=== PATIENT | male | born 1950 | race Caucasian/White ===

== ENCOUNTER 2018-01-08 17:49 | Inpatient (IN) | payer MEDICARE, MEDICAID ==
[2018-01-08 17:50] VITALS: BMI 32.8
--- NOTE | 2018-01-08 20:33 | C.PDOC ---
History Of Present Illness 67 year old male presents to the ED referred by Dr Wills for evaluation of shortness of breath, chest pain, and headache gradually worsening x6 days. Patient complains of bilateral lower extremity pain and swelling for the past two weeks and has had difficulty ambulating as a result which he states acutely worsened today. He denies cough or fever. Patient has a history of CABG 8 years ago. Otherwise, no other acute complaints. Chief Complaint (Nursing): Shortness Of Breath History Per: Patient, Family Onset/Duration Of Symptoms: Days Current Symptoms Are (Timing): Worse Associated Symptoms: Chest Pain, Ankle/Leg Swelling Past Medical History Reviewed: Historical Data, Nursing Documentation, Vital Signs Vital Signs: Last Vital Signs Temp 98.0 F 01/08/18 19:19 Pulse 67 01/09/18 02:00 Resp 20 01/09/18 02:00 BP 124/63 01/09/18 02:00 Pulse Ox 95 01/09/18 02:00 - Medical History PMH: HTN, Hypercholesterolemia Denies: Chronic Kidney Disease Surgical History: CABG (8 yrs ago) - [facility] Procedures CONTRAST AORTOGRAM (01/16/14) CONTRAST ARTERIOGRAM-LEG (01/16/14) Family History: States: Unknown Family Hx - Social History Hx Alcohol Use: Yes Hx Substance Use: No Review Of Systems Except As Marked, All Systems Reviewed And Found Negative. Constitutional: Negative for: Fever, Chills ENT: Negative for: Ear Pain, Throat Pain Cardiovascular: Positive for: Chest Pain Respiratory: Positive for: Shortness of Breath. Negative for: Cough Gastrointestinal: Negative for: Nausea, Vomiting, Abdominal Pain, Diarrhea Musculoskeletal: Positive for: Back Pain, Leg Pain (and swelling) Skin: Negative for: Rash Neurological: Positive for: Headache. Negative for: Weakness, Numbness Physical Exam - Physical Exam Appears: Well, No Acute Distress Skin: Normal Color, Warm, Dry Head: Atraumatic, Normacephalic Eye(s): bilateral: Normal Inspection, PERRL, EOMI Nose: Normal Oral Mucosa: Moist Tongue: Normal Appearing Lips: Normal Appearing Throat: Normal Neck: Normal, Normal ROM, Supple Chest: Other (Median sternotomy scar ) Cardiovascular: Rhythm Regular Respiratory: Decreased Breath Sounds (bilaterally), No Rales, No Rhonchi, No Wheezing Gastrointestinal/Abdominal: Soft, No Tenderness Back: Normal Inspection Extremity: Normal ROM, Capillary Refill (delayed ), Other (diminished pulses bilateral lower extremities ) Neurological/Psych: Oriented x3, Normal Speech ED Course And Treatment - Laboratory Results Result Diagrams: 01/08/18 20:40 01/08/18 20:40 O2 Sat by Pulse Oximetry: 96 - Radiology CXR: Interpreted by Me, Viewed By Me CXR Interpretation: Yes: Cardiomegaly, Other (increased cardiovascular pulmonary congestions consistent with CHF) Disposition - Disposition Disposition: HOSPITALIZED Disposition Time: 03:20 Condition: FAIR - Clinical Impression Clinical Impression: Congestive heart failure - Scribe Statement The provider has reviewed the documentation as recorded by the Scribe The provider has reviewed the documentation as recorded by the Scribe (Shane Schwartz) Provider Attestation: All medical record entries made by the Scribe were at my direction and personally dictated by me. I have reviewed the chart and agree that the record accurately reflects my personal performance of the history, physical exam, medical decision making, and the department course for this patient. I have also personally directed, reviewed, and agree with the discharge instructions and disposition.
[2018-01-08 20:54] LABS: BASO % 0.3 % (0.0-2.0); EOS # 0.1 K/uL (0.0-0.7); EOS % 1.9 % (0.0-4.0); MEAN CELL VOLUME 92.3 fL (80.0-94.0); MEAN CORPUSCULAR HEMOGLOBIN 30.8 pg (27.0-31.0); MEAN CORPUSCULAR HGB CONC 33.4 g/dL (33.0-37.0); MEAN PLATELET VOLUME 11.9 fL (7.2-11.7); MONO # 0.6 K/uL (0.0-0.8); MONO % 9.9 % (0.0-10.0); NEUT # 3.7 K/uL (1.8-7.0); NEUT % 56.9 % (50.0-75.0); NRBC % 0.1 % (0.0-2.0); RBC 4.54 Mil/uL (4.40-5.90); RED CELL DISTRIBUTION WIDTH 13.3 % (11.5-14.5); WHITE BLOOD COUNT 6.4 K/uL (4.8-10.8)
[2018-01-08 21:02] LABS: PROTHROMBIN TIME 11.3 SECONDS (9.7-12.2)
[2018-01-08 21:08] LABS: ALB/GLOB RATIO 1.3 (1.0-2.1); ALBUMIN 3.9 g/dL (3.5-5.0); ALT/SGPT 24 U/L (21-72); AST/SGOT 23 U/L (17-59); BLOOD UREA NITROGEN 31 mg/dL (9-20); CALCIUM 9.1 mg/dl (8.6-10.4); GFR AFRICAN-AMERICAN > 60; GFR NON-AFRICAN AMERICAN 55
[2018-01-08 21:30] LABS: B-TYPE NATRIURETIC PEPTIDE 1790 pg/mL (0-900)
[2018-01-08] MEDS ORDERED: Nitroglycerin 2% Ointment Foilpak UD TOP STA (22:38)
[2018-01-08] MEDS ORDERED: Nitroglycerin 2% Ointment Foilpak UD TOP ONE (22:53)
--- NOTE | 2018-01-09 03:53 | CP.PCM.CON ---
History of Present Illness - History of Present Illness History of Present Illness: Vascular Surgery- Dr. Giordano 67M pmhx significant for IDDM, HTN, CABG, presents to [facility] ED w/ shortness of breath, chest pain, and headaches. Surgery was consulted for bilateral LE pain that is worse with walking, better with rest. Denies: fevers, chills, nausea, vomiting, diarrhea, changes in urinary/bowel habits, tingling in extremities, acute changes in vision PMH: IDDM, HTN, CAD PSH: inguinal hernia, c-scope, LE angiogram/Angioplasty ALL: NKDA Socialhx: Denies tobacco, ETOH, recreational drug use Review of Systems - Review of Systems All systems: reviewed and no additional remarkable complaints except - Constitutional Constitutional: As Per HPI Past Patient History - Past Medical History & Family History Past Medical History?: Yes - Past Social History Smoking Status: Never Smoked - CARDIAC Hx Hypercholesterolemia: Yes Hx Hypertension: Yes - PULMONARY Hx Respiratory Disorders: Yes Other/Comment: s o b on exertion - NEUROLOGICAL Hx Neurological Disorder: No - HEENT Hx HEENT Problems: Yes Hx Cataracts: Yes (bilateral cat ext with iol) - RENAL Hx Chronic Kidney Disease: No - ENDOCRINE/METABOLIC Hx Endocrine Disorders: Yes Hx Diabetes Mellitus Type 2: Yes - HEMATOLOGICAL/ONCOLOGICAL Hx Blood Disorders: No - INTEGUMENTARY Hx Dermatological Problems: Yes Other/Comment: small ulcers both great toes - MUSCULOSKELETAL/RHEUMATOLOGICAL Hx Musculoskeletal Disorders: No - GASTROINTESTINAL Hx Gastrointestinal Disorders: No - GENITOURINARY/GYNECOLOGICAL Hx Genitourinary Disorders: No - PSYCHIATRIC Hx Substance Use: No - SURGICAL HISTORY Hx Coronary Artery Bypass Graft: Yes (8 yrs ago) - ANESTHESIA Hx Anesthesia: Yes Hx Anesthesia Reactions: No Hx Malignant Hyperthermia: No Meds Allergies/Adverse Reactions: Allergies Allergy/AdvReac Type Severity Reaction Status Date / Time No Known Allergies Allergy Verified 01/08/18 19:23 Physical Exam - Constitutional Appears: Non-toxic, No Acute Distress Additional comments: Obese - ENT Exam ENT Exam: Mucous Membranes Moist - Respiratory Exam Respiratory Exam: NORMAL BREATHING PATTERN. absent: Accessory Muscle Use, Respiratory Distress - Cardiovascular Exam Cardiovascular Exam: +S1, +S2. absent: Bradycardia, Tachycardia - GI/Abdominal Exam GI & Abdominal Exam: Distended, Soft. absent: Firm, Guarding, Hernia, Tenderness Additional comments: states abd is normal - Extremities Exam Additional comments: B/L +2 popliteal pulses biphasic dopplerable b/l DP and TP Skin tags on L.foot no observable ulcers - Neurological Exam Neurological exam: Alert, Oriented x3 Results - Vital Signs Recent Vital Signs: Last Vital Signs Temp 98.0 F 01/08/18 19:19 Pulse 67 01/09/18 02:00 Resp 20 01/09/18 02:00 BP 124/63 01/09/18 02:00 Pulse Ox 96 01/09/18 03:21 - Labs Result Diagrams: 01/08/18 20:40 01/08/18 20:40 Labs: Laboratory Results - last 24 hr 01/08/18 01/08/18 01/08/18 20:40 20:40 20:40 WBC 6.4 RBC 4.54 Hgb 14.0 Hct 41.9 MCV 92.3 MCH 30.8 MCHC 33.4 RDW 13.3 Plt Count 188 MPV 11.9 H Neut % (Auto) 56.9 Lymph % (Auto) 31.0 [place] % (Auto) 9.9 Eos % (Auto) 1.9 Baso % (Auto) 0.3 Neut # (Auto) 3.7 Lymph # (Auto) 2.0 [place] # (Auto) 0.6 Eos # (Auto) 0.1 Baso # (Auto) 0.0 PT 11.3 INR 1.0 APTT 34 D-Dimer, Quantitative 225 Sodium 142 Potassium 4.0 Chloride 104 Carbon Dioxide 25 Anion Gap 16 BUN 31 H Creatinine 1.3 Est GFR ( Amer) > 60 Est GFR (Non-Af Amer) 55 Random Glucose 73 L Calcium 9.1 Total Bilirubin 0.8 AST 23 ALT 24 Alkaline Phosphatase 74 CK-MB (Mass) 1.20 Troponin I 0.0300 NT-Pro-B Natriuret Pep 1790 H Total Protein 6.9 Albumin 3.9 Globulin 3.0 Albumin/Globulin Ratio 1.3 Assessment & Plan - Assessment and Plan (Free Text) Assessment: 67M admitted for SOB and Chest pain; w/ lower extremity claudication Plan: - JOSE E/PVR - monitor pulses - medical management per primary team - further recs per Dr. Giordano surgical attending Jignesh Zarco PGY1
[2018-01-09 08:03] LABS: CK-MB 1.12 ng/mL (0.0-3.38); TROPONIN I 0.034 ng/mL (0.00-0.120)
--- NOTE | 2018-01-09 08:34 | RAD ---
Chest x-ray single frontal view History: Sepsis. Comparison: None available. Findings: Mild venous congestion. Right hilar prominence. Left basilar airspace consolidative changes. Small bilateral pleural effusions. Status post median sternotomy and CABG. Cardiomegaly. Surgical clips project over the right axilla and over the right midlung zone. Degenerative changes in the spine and shoulders. Impression: Mild venous congestion. Right hilar prominence. Left basilar airspace consolidative changes. Small bilateral pleural effusions. Status post median sternotomy and CABG. Cardiomegaly.
[2018-01-09] MEDS ORDERED: (Novolin R) Insulin Human Regular 100 units/ml vial ONE (09:30)
[2018-01-09] MEDS: (Novolin R) Insulin Human Regular 100 units/ml vial SC SCH ×4 (09:35→23:14)
--- NOTE | 2018-01-09 12:12 | CARD ---
APPROVED REPORT EKG Measurement Heart [id number] CO 156P47 [id number] <Conclusion> Normal sinus rhythm Septal infarct, age undetermined Abnormal ECG
[2018-01-09 13:15] LABS: CK-MB 1.03 ng/mL (0.0-3.38); TROPONIN I 0.023 ng/mL (0.00-0.120)
[2018-01-09] MEDS ORDERED: Albuterol-Ipratrop 3 mg / 0.5 (3 ml) UD INH PRN (14:00)
--- NOTE | 2018-01-09 16:29 | VASCLAB ---
STUDY DESCRIPTION: HISTORY: Intermittent Claudication PRIORS: None. TECHNIQUE: Pulse volume recording waveforms and segmental pressures of bilateral lower extremities at multiple levels were obtained. Ankle Brachial Indices (ABIs) were calculated. Report prepared by ROCK Cervantes, RVT RIGHT LOWER EXTREMITY: * Brachial artery: Pressure - 157 mmHg. * High thigh: Pressure - 220 mmHg: Ratio - NC: PVR waveform - Pulsatile * Low thigh: Pressure - 220 mmHg: Ratio - NC PVR waveform: Pulsatile * Calf: Pressure - 133 mmHg: Ratio - 0.85 PVR waveform: Pulsatile * Posterior tibial Artery: Pressure - 95 mmHg: Ratio - 0.61 PVR waveform: Reduced * Dorsalis pedis Artery: Pressure - 97 mmHg: Ratio - 0.62 PVR waveform: Reduced * Great toe: Pressure - mmHg: Ratio - PVR waveform: Ankle brachial index (JOSE E): 0.62 LEFT LOWER EXTREMITY: * Brachial artery: Pressure - 149 mmHg. * High thigh: Pressure - 220 mmHg: Ratio - NC: PVR waveform - Pulsatile * Low thigh: Pressure - 213 mmHg: Ratio - 1.36 PVR waveform: Pulsatile * Calf: Pressure - 138 mmHg: Ratio - 0.88 PVR waveform: Pulsatile * Posterior tibial Artery: Pressure - 102 mmHg: Ratio - 0.65 PVR waveform: Reduced * Dorsalis pedis Artery: Pressure - 105 mmHg: Ratio - 0.67 PVR waveform: Reduced * Great toe: Pressure - mmHg: Ratio - PVR waveform: Ankle brachial index (JOSE E): 0.67 OTHER FINDINGS: Right: Left: IMPRESSION: Right: This exam reveals moderately decreased perfusion of the right lower extremities, noted at the popliteal, tibial and distal small artery levels. Left: This exam reveals moderately decreased perfusion of the left lower extremities, noted at the popliteal, tibial and distal small artery levels.
[2018-01-09] MEDS ORDERED: Iodixanol 320 mg/ml 150 ml Bottle IV ONE (19:21)
--- NOTE | 2018-01-09 21:59 | CARD ---
APPROVED REPORT EXAM: Two-dimensional and M-mode echocardiogram with Doppler and color Doppler. Other Information Quality : GoodRhythm : INDICATION Dyspnea Congestive Heart Failure RISK FACTORS Hypertension Hyperlipidemia 2D DIMENSIONS IVSd1.4 (0.7-1.1cm)LVDd4.6 (3.9-5.9cm) PWd1.4 (0.7-1.1cm)LVDs3.1 (2.5-4.0cm) FS (%) 32.6 %LVEF (%)61.0 (>50%) M-Mode DIMENSIONS Left Atrium (MM)4.81 (2.5-4.0cm)Aortic Root3.95 (2.2-3.7cm) Aortic Cusp Exc.2.31 (1.5-2.0cm) Mitral Valve MV E Sjrgowom49.8cm/sMV A Vjncyolt90.1cm/sE/A ratio0.8 TDI E/Lateral E'0.0E/Medial E'0.0 Tricuspid Valve TR Peak Hylsxiaz323zt/sTR Peak Gr.11lvJtBZLX82vcUo LEFT VENTRICLE The left ventricle is normal size. There is mild concentric left ventricular hypertrophy. Left ventricle systolic function is normal. The Ejection Fraction is 65-70%. There is normal LV segmental wall motion. Transmitral Doppler flow pattern is Grade I-abnormal relaxation pattern. There is no ventricular septal defect visualized. RIGHT VENTRICLE The right ventricle is normal size. The right ventricular systolic function is normal. ATRIA The left atrium is mildly dilated. The right atrium size is normal. AORTIC VALVE The aortic valve is mildly sclerotic. The aortic valve is tri-cuspid. No aortic regurgitation is present. There is no aortic valvular stenosis. MITRAL VALVE Mitral annular calcification is mild. There is no evidence of mitral valve prolapse. There is no mitral valve regurgitation noted. TRICUSPID VALVE The tricuspid valve is normal in structure. There is mild tricuspid regurgitation. Right ventricular systolic pressure is estimated at 40-50 mmHg. There is moderate pulmonary hypertension. PULMONIC VALVE The pulmonary valve is normal in structure. There is no pulmonic valvular regurgitation. GREAT VESSELS The aortic root is normal in size. The ascending aorta is normal in size. The IVC is normal in size and collapses >50% with inspiration. PERICARDIAL EFFUSION There is no pericardial effusion. <Conclusion> There is mild concentric left ventricular hypertrophy. Left ventricle systolic function is normal. The Ejection Fraction is 65-70%. Transmitral Doppler flow pattern is Grade I-abnormal relaxation pattern. There is moderate pulmonary hypertension.
--- NOTE | 2018-01-09 23:13 | CP.PCM.HP ---
History of Present Illness - History of Present Illness History of Present Illness: CC: shortness of breath HPI: 67M pmhx significant for IDDM, HTN, CAD s/p CABG 15 years ago, who is complaint with diet, medications and follow up, presents to [facility] ED w/ shortness of breath, chest pain,massive puffiness and swelling in LE with increase weight and headaches. c/o bilateral LE pain that is worse with walking , better with rest. Denies: fevers, chills, nausea, vomiting, diarrhea, changes in urinary/bowel habits, tingling in extremities, acute changes in vision PMH: IDDM, HTN, CAD PSH: inguinal hernia, c-scope, LE angiogram/Angioplasty ALL: NKDA Socialhx: Denies tobacco, ETOH, recreational drug use Present on Admission - Present on Admission Any Indicators Present on Admission: Yes Review of Systems - Review of Systems Systems not reviewed;Unavailable: Acuity of Condition - Constitutional Constitutional: Fatigue, Lethargy, Malaise - EENT Nose/Mouth/Throat: Nasal Congestion - Cardiovascular Cardiovascular: Chest Pain, Dyspnea, Leg Edema, Palpitations - Respiratory Respiratory: Cough - Musculoskeletal Musculoskeletal: Limited Range of Motion, Myalgias, Numbness, Radiating Pain into Limb - Integumentary Integumentary: Dry Skin - Neurological Neurological: absent: As Per HPI, Abnormal Gait, Abnormal Hearing, Abnormal Movements, Abnormal Speech, Behavioral Changes, Burning Sensations, Confusion, Convulsions, Disequilibrium, Dizziness, Numbness, Focal Weakness, Frequent Falls , Headaches, Lack of Coordination, Loss of Vision, Memory Loss, Paresthesias, Radicular Pain, Restless Legs, Sensory Deficit, Syncope, Tingling, Tremor, Vertigo, Weakness, Other Visual Disturbances, Other - Psychiatric Psychiatric: absent: As Per HPI, Abnormal Sleep Pattern, Anhedonia, Anxiety, Auditory Hallucinations, Behavioral Changes, Change in Appetite, Change in Libido, Confusion, Depression, Difficulty Concentrating, Hallucinations, Homicidal Ideation, Hopelessness, Irritability, Memory Loss, Mood Swings, Panic Attacks, Paranoia, Suicidal Ideation, Visual Hallucinations, Tactile Hallucinations, Other - Endocrine Endocrine: Polydipsia, Polyuria Past Patient History - Past Medical History & Family History Past Medical History?: Yes - Past Social History Smoking Status: Never Smoked - CARDIAC Hx Cardiac Disorders: Yes Hx Hypercholesterolemia: Yes Hx Hypertension: Yes - PULMONARY Hx Respiratory Disorders: Yes Other/Comment: s o b on exertion - NEUROLOGICAL Hx Neurological Disorder: No - HEENT Hx HEENT Problems: Yes Hx Cataracts: Yes (bilateral cat ext with iol) - RENAL Hx Chronic Kidney Disease: No - ENDOCRINE/METABOLIC Hx Endocrine Disorders: Yes Hx Diabetes Mellitus Type 2: Yes - HEMATOLOGICAL/ONCOLOGICAL Hx Blood Disorders: No - INTEGUMENTARY Hx Dermatological Problems: Yes Other/Comment: small ulcers both great toes - MUSCULOSKELETAL/RHEUMATOLOGICAL Hx Musculoskeletal Disorders: No Hx Falls: Yes - GASTROINTESTINAL Hx Gastrointestinal Disorders: No - GENITOURINARY/GYNECOLOGICAL Hx Genitourinary Disorders: No - PSYCHIATRIC Hx Substance Use: No - SURGICAL HISTORY Hx Coronary Artery Bypass Graft: Yes (8 yrs ago) - ANESTHESIA Hx Anesthesia: Yes Hx Anesthesia Reactions: No Hx Malignant Hyperthermia: No Meds Allergies/Adverse Reactions: Allergies Allergy/AdvReac Type Severity Reaction Status Date / Time No Known Allergies Allergy Verified 01/08/18 19:23 Physical Exam - Constitutional Additional comments: an elderly male in moderate resp distress - Neck Exam Additional comments: Positive JVD - Respiratory Exam Respiratory Exam: Decreased Breath Sounds, Rales - Cardiovascular Exam Cardiovascular Exam: +S1, +S2, +S4 - GI/Abdominal Exam GI & Abdominal Exam: Distended, Normal Bowel Sounds, Soft. absent: Tenderness Additional comments: edema of lateral abdominal wall - Extremities Exam Extremities exam: Positive for: pedal edema Additional comments: +4 pitting edema - Back Exam Back exam: NORMAL INSPECTION - Neurological Exam Neurological exam: Alert, CN II-XII Intact, Normal Gait, Oriented x3, Reflexes Normal - Psychiatric Exam Psychiatric exam: Normal Affect, Normal Mood Results - Vital Signs Recent Vital Signs: Last Vital Signs Temp 98.1 F 01/09/18 16:03 Pulse 73 01/09/18 16:03 Resp 18 01/09/18 16:03 BP 146/66 01/09/18 17:36 Pulse Ox 95 01/09/18 16:03 - Labs Result Diagrams: 01/08/18 20:40 01/08/18 20:40 Labs: Laboratory Results - last 24 hr 01/09/18 01/09/18 01/09/18 07:09 07:36 11:42 POC Glucose (mg/dL) 188 H 313 H Total Creatine Kinase 93 CK-MB (Mass) 1.12 Troponin I 0.0340 01/09/18 01/09/18 01/09/18 12:42 16:49 23:07 POC Glucose (mg/dL) 256 H 221 H Total Creatine Kinase 106 CK-MB (Mass) 1.03 Troponin I 0.0230 Assessment & Plan (1) Diabetes Status: Acute (2) Congestive heart failure Assessment and Plan: Cardiology eval new onset CHF most likely diastolic Lasix input output Medical management Status: Acute (3) COPD (chronic obstructive pulmonary disease) Assessment and Plan: medical managment oxygen PRN Status: Acute (4) Insomnia Status: Acute
[2018-01-10 06:39] LABS: HEMOGLOBIN 13.3 g/dL (12.0-18.0); MEAN CELL VOLUME 92.6 fL (80.0-94.0); MEAN CORPUSCULAR HEMOGLOBIN 31.1 pg (27.0-31.0); MEAN CORPUSCULAR HGB CONC 33.5 g/dL (33.0-37.0); MEAN PLATELET VOLUME 11.4 fL (7.2-11.7); RBC 4.29 Mil/uL (4.40-5.90); RED CELL DISTRIBUTION WIDTH 12.9 % (11.5-14.5); WHITE BLOOD COUNT 4.2 K/uL (4.8-10.8)
[2018-01-10 07:55] LABS: BLOOD UREA NITROGEN 31 mg/dL (9-20); CALCIUM 8.5 mg/dl (8.6-10.4); GFR AFRICAN-AMERICAN > 60; GFR NON-AFRICAN AMERICAN 51
[2018-01-10] MEDS: (Novolin R) Insulin Human Regular 100 units/ml vial SC SCH ×5 (08:49→21:50)
--- NOTE | 2018-01-10 09:27 | CT ---
PROCEDURE: CT Angiography Abdomen, Pelvis and Lower Extremity with Contrast HISTORY: Claudication COMPARISON: None. TECHNIQUE: Technique: CT angiography of the abdomen, pelvis and bilateral lower extremities performed in the arterial phase of enhancement. Coronal and sagittal reformats, and well as rotating MIP images of the vessels generated at the workstation. Intravenous contrast dose: 150 milliliters Visipaque 320 Radiation dose: Total exam DLP = 3173.39 MGy-cm. This CT exam was performed using one or more of the following dose reduction techniques: Automated exposure control, adjustment of the mA and/or kV according to patient size, and/or use of iterative reconstruction technique. FINDINGS: CT ANGIOGRAPHY: ABDOMINAL AORTA:: Severe calcific plaque in the abdominal aorta without aneurysm or stenosis. MAJOR AORTIC BRANCHES: Celiac Lyons: Unremarkable. Superior mesenteric artery: Moderate calcific plaque at the origin of the SMA with mild stenosis. Inferior mesenteric artery: Unremarkable. Renal arteries: Calcific plaque at the origin of both right and left renal arteries with possible moderate stenosis. PELVIC ARTERIES: Right Common Iliac: Mild calcific plaque with no stenosis. Right External Iliac: Unremarkable. Right Internal Iliac: Unremarkable. Left Common Iliac: Unremarkable. Left External Iliac: Unremarkable. Left Internal Iliac: Unremarkable. RIGHT LOWER EXTREMITY ARTERIES: Right Common Femoral: Unremarkable. Right Superficial Femoral: There is mild plaque throughout the SFA with no significant stenosis. Right Profunda Femoris: Unremarkable. Right Popliteal:Unremarkable. Right Anterior Tibial: Diffusely calcified appears patent. Multiple areas of mild to severe stenosis throughout the anterior tibial artery. Right Tibioperoneal Trunk: Occlusion of the tibioperoneal artery. Right Posterior Tibial: Proximally occluded then reconstitutes in the mid segment. Right Peroneal: Fills via collateral in the proximal segment and remains patent. Right dorsalis pedis : Unremarkable. LEFT LOWER EXTREMITY ARTERIES: Left Common Femoral: Unremarkable. Left Superficial Femoral: Moderate plaque in the SFA with moderate stenosis in distal segment. Left Profunda Femoris: Unremarkable. Left Popliteal: Mild calcific plaque in the popliteal artery with mild stenosis in the below knee popliteal artery. Stenosis. Left Anterior Tibial: Moderate to severe calcific plaque in the mid segment with distal occlusion. Left Tibioperoneal Trunk: Severely stenotic or occluded. Left Posterior Tibial: Occluded. Left Peroneal: Proximal occlusion and reconstitutes in the mid segment remains patent. Left Dorsalis pedis: Unremarkable. NON-ANGIOGRAPHIC ASPECT OF THE EXAM: LOWER THORAX: Very small amount of right pleural effusion. LIVER: Hypoattenuated liver. Liver is otherwise unremarkable. GALLBLADDER AND BILE DUCTS: Unremarkable. PANCREAS: Unremarkable. No gross lesion or ductal dilatation. SPLEEN: Unremarkable. ADRENALS: Unremarkable. No mass. KIDNEYS AND URETERS: Hypodense lesions throughout the left kidney which may represent cysts. STOMACH AND BOWEL: Unremarkable. No obstruction. No gross mural thickening. APPENDIX: Normal appendix. PERITONEUM: Unremarkable. No free fluid. No free air. LYMPH NODES: Unremarkable. No enlarged lymph nodes. BLADDER: Unremarkable. REPRODUCTIVE: Unremarkable. BONES: No acute fracture. OTHER FINDINGS: None. IMPRESSION: CT ANGIOGRAM ABDOMEN/PELVIS: 1. Calcific plaque throughout abdominal aorta without significant stenosis. 2. Right and left common iliac artery and external iliac arteries are unremarkable. LEFT LOWER EXTREMITY CT ANGIOGRAM: 1. Common femoral artery, profunda femoral artery normal. 2. Moderate plaque in the distal SFA with moderate stenosis. 3. Mild stenosis in the below-knee popliteal artery. 4. Runoff shows occluded posterior tibial artery and peroneal artery. The peroneal artery reconstitutes in the mid segment remains and patent. The anterior tibial artery is occluded distally. RIGHT LOWER EXTREMITY CT ANGIOGRAM: 1. The common femoral artery, profunda femoral artery, superficial femoral artery and popliteal artery normal per 2. Runoff shows calcified anterior tibial artery with areas of severe stenosis or occlusion. 3. Peroneal artery is proximal occluded and reconstitutes in the mid segment via collaterals. Posterior tibial artery is proximally occluded and reconstitutes in the mid segment.
--- NOTE | 2018-01-10 11:56 | CARD ---
APPROVED REPORT EKG Measurement Heart [id number] [place] 140P24 [id number] <Conclusion> Sinus rhythm with premature supraventricular complexes Otherwise normal ECG
--- NOTE | 2018-01-10 15:04 | CP.PCM.PN ---
Subjective - Date & Time of Evaluation Date of Evaluation: 01/10/18 Time of Evaluation: 11:30 - Subjective Subjective: Vascular Surgery- Dr. Giordano Pt S&E at bedside this AM. no acute events overnight. states legs are feeling better, however pain while walking. Denies F/C CP/SOB N/V/D Objective - Vital Signs/Intake and Output Vital Signs (last 24 hours): Temp Pulse Resp BP Pulse Ox 98.5 F 81 20 163/74 H 94 L 01/10/18 08:08 01/10/18 13:52 01/10/18 08:08 01/10/18 11:22 01/10/18 08:08 - Medications Medications: Current Medications Albuterol/Ipratropium (Duoneb 3 Mg/0.5 Mg (3 Ml) Ud) 3 ml INH RQ6 PRN PRN Reason: Wheezing Aspirin (Aspirin Chewable) 81 mg PO DAILY [facility] Last Admin: 01/10/18 11:22 Dose: 81 mg Famotidine (Pepcid) 20 mg PO DAILY [facility] Last Admin: 01/10/18 11:22 Dose: 20 mg Furosemide (Lasix) 40 mg IVP BID [facility] Last Admin: 01/10/18 11:22 Dose: 40 mg Glimepiride (Amaryl) 4 mg PO DAILY [facility] Last Admin: 01/10/18 11:22 Dose: 4 mg Heparin Sodium (Porcine) (Heparin) 5,000 units SC Q8 [facility] Last Admin: 01/10/18 13:34 Dose: 5,000 units Hydralazine HCl (Apresoline) 25 mg PO Q8 [facility] Last Admin: 01/10/18 13:34 Dose: 25 mg Insulin Human Regular (Novolin R) 0 unit SC ACHS [facility] PRN Reason: Protocol Last Admin: 01/10/18 13:37 Dose: Not Given Lisinopril (Zestril) 20 mg PO DAILY [facility] Last Admin: 01/10/18 11:22 Dose: 20 mg Metformin HCl (Glucophage) 1,000 mg PO BID [facility] Last Admin: 01/09/18 17:35 Dose: 1,000 mg Rosuvastatin Calcium (Crestor) 10 mg PO HS [facility] Last Admin: 01/09/18 22:15 Dose: 10 mg Sitagliptin Phosphate (Januvia) 25 mg PO DAILY [facility] Last Admin: 01/10/18 11:22 Dose: 25 mg Zolpidem Tartrate (Ambien) 5 mg PO HS PRN PRN Reason: Insomnia Last Admin: 01/09/18 22:21 Dose: 5 mg - Labs Labs: 01/10/18 06:31 01/10/18 06:31 PT 11.3 SECONDS (9.7-12.2) 01/08/18 20:40 INR 1.0 01/08/18 20:40 APTT 34 SECONDS (21-34) 01/08/18 20:40 - Constitutional Appears: Non-toxic, No Acute Distress - Head Exam Head Exam: ATRAUMATIC - Eye Exam Eye Exam: EOMI. absent: Scleral icterus - ENT Exam ENT Exam: Mucous Membranes Moist - Cardiovascular Exam Cardiovascular Exam: +S1, +S2. absent: Bradycardia, Tachycardia - GI/Abdominal Exam GI & Abdominal Exam: Soft. absent: Distended, Firm, Guarding, Rigid, Tenderness - Extremities Exam Additional comments: Dopplerable DP pulses b/l - Neurological Exam Neurological Exam: Alert, Awake, Oriented x3 - Skin Skin Exam: Intact, Warm Assessment and Plan - Assessment and Plan (Free Text) Assessment: 67M admitted for SOB and Chest pain; w/ lower extremity claudication Plan: - CTA reviewed - possible angio during this visit - monitor pulses - medical management per primary team - further recs per Dr. Giordano surgical attending Jignesh Zarco PGY1
--- NOTE | 2018-01-10 23:15 | CP.PCM.PN ---
Subjective - Date & Time of Evaluation Date of Evaluation: 01/10/18 Time of Evaluation: 18:50 - Subjective Subjective: Pt seen and examined, is less short of breath, on lasix, Echo shows normal systolic pressure of EF of 55%, pt has diastolic HF Objective - Vital Signs/Intake and Output Vital Signs (last 24 hours): Temp Pulse Resp BP Pulse Ox 98.4 F 75 20 177/79 H 95 01/10/18 15:44 01/10/18 15:44 01/10/18 15:44 01/10/18 17:34 01/10/18 15:44 Intake and Output: 01/10/18 01/11/18 18:59 06:59 Intake Total 300 Balance 300 - Medications Medications: Current Medications Albuterol/Ipratropium (Duoneb 3 Mg/0.5 Mg (3 Ml) Ud) 3 ml INH RQ6 PRN PRN Reason: Wheezing Aspirin (Aspirin Chewable) 81 mg PO DAILY [facility] Last Admin: 01/10/18 11:22 Dose: 81 mg Famotidine (Pepcid) 20 mg PO DAILY [facility] Last Admin: 01/10/18 11:22 Dose: 20 mg Furosemide (Lasix) 40 mg IVP BID [facility] Last Admin: 01/10/18 17:34 Dose: 40 mg Glimepiride (Amaryl) 4 mg PO DAILY [facility] Last Admin: 01/10/18 11:22 Dose: 4 mg Heparin Sodium (Porcine) (Heparin) 5,000 units SC Q8 [facility] Last Admin: 01/10/18 21:41 Dose: 5,000 units Hydralazine HCl (Apresoline) 50 mg PO Q8 [facility] Last Admin: 01/10/18 21:49 Dose: 50 mg Insulin Human Regular (Novolin R) 0 unit SC ACHS [facility] PRN Reason: Protocol Last Admin: 01/10/18 21:50 Dose: 2 unit Lisinopril (Zestril) 20 mg PO DAILY [facility] Last Admin: 01/10/18 11:22 Dose: 20 mg Metformin HCl (Glucophage) 1,000 mg PO BID [facility] Last Admin: 01/09/18 17:35 Dose: 1,000 mg Rosuvastatin Calcium (Crestor) 10 mg PO HS [facility] Last Admin: 01/10/18 21:41 Dose: 10 mg Sitagliptin Phosphate (Januvia) 25 mg PO DAILY [facility] Last Admin: 01/10/18 11:22 Dose: 25 mg Zolpidem Tartrate (Ambien) 5 mg PO HS PRN PRN Reason: Insomnia Last Admin: 01/10/18 21:42 Dose: 5 mg - Labs Labs: 01/10/18 06:31 01/10/18 06:31 PT 11.3 SECONDS (9.7-12.2) 01/08/18 20:40 INR 1.0 01/08/18 20:40 APTT 34 SECONDS (21-34) 01/08/18 20:40 - Constitutional Appears: No Acute Distress - Head Exam Head Exam: ATRAUMATIC, NORMAL INSPECTION, NORMOCEPHALIC - Eye Exam Eye Exam: EOMI, Normal appearance, PERRL Pupil Exam: NORMAL ACCOMODATION, PERRL - Respiratory Exam Respiratory Exam: Decreased Breath Sounds, Rales - Cardiovascular Exam Cardiovascular Exam: REGULAR RHYTHM, +S1, +S2. absent: Murmur - GI/Abdominal Exam GI & Abdominal Exam: Soft, Normal Bowel Sounds. absent: Tenderness Assessment and Plan (1) Diabetes Status: Acute (2) Congestive heart failure Status: Acute (3) COPD (chronic obstructive pulmonary disease) Status: Acute (4) Insomnia Status: Acute
[2018-01-11] MEDS: (Novolin R) Insulin Human Regular 100 units/ml vial SC SCH ×2 (08:47→13:14)
[2018-01-11 08:58] VITALS: BP 158/62; RESP 18; TEMP 98.3; O2SAT 94
--- NOTE | 2018-01-11 08:59 | CP.PCM.PN ---
Subjective - Date & Time of Evaluation Date of Evaluation: 01/11/18 Time of Evaluation: 06:45 - Subjective Subjective: Vascular Surgery Pt Seen and examined. No issues overnight. Says he is feeling good and he is supposed to go home today. Objective - Vital Signs/Intake and Output Vital Signs (last 24 hours): Temp Pulse Resp BP Pulse Ox 98.1 F 79 20 163/73 H 96 01/10/18 23:40 01/11/18 05:50 01/11/18 05:50 01/11/18 05:50 01/11/18 05:50 Intake and Output: 01/11/18 01/11/18 06:59 18:59 Intake Total 50 Balance 50 - Medications Medications: Current Medications Albuterol/Ipratropium (Duoneb 3 Mg/0.5 Mg (3 Ml) Ud) 3 ml INH RQ6 PRN PRN Reason: Wheezing Aspirin (Aspirin Chewable) 81 mg PO DAILY [facility] Last Admin: 01/10/18 11:22 Dose: 81 mg Famotidine (Pepcid) 20 mg PO DAILY [facility] Last Admin: 01/10/18 11:22 Dose: 20 mg Furosemide (Lasix) 40 mg IVP BID [facility] Last Admin: 01/10/18 17:34 Dose: 40 mg Glimepiride (Amaryl) 4 mg PO DAILY [facility] Last Admin: 01/10/18 11:22 Dose: 4 mg Heparin Sodium (Porcine) (Heparin) 5,000 units SC Q8 [facility] Last Admin: 01/11/18 05:52 Dose: 5,000 units Hydralazine HCl (Apresoline) 50 mg PO Q8 [facility] Last Admin: 01/11/18 05:51 Dose: 50 mg Insulin Human Regular (Novolin R) 0 unit SC ACHS [facility] PRN Reason: Protocol Last Admin: 01/11/18 08:47 Dose: 4 unit Lisinopril (Zestril) 20 mg PO DAILY [facility] Last Admin: 01/10/18 11:22 Dose: 20 mg Metformin HCl (Glucophage) 1,000 mg PO BID [facility] Last Admin: 01/09/18 17:35 Dose: 1,000 mg Rosuvastatin Calcium (Crestor) 10 mg PO HS [facility] Last Admin: 01/10/18 21:41 Dose: 10 mg Sitagliptin Phosphate (Januvia) 25 mg PO DAILY [facility] Last Admin: 01/10/18 11:22 Dose: 25 mg Zolpidem Tartrate (Ambien) 5 mg PO HS PRN PRN Reason: Insomnia Last Admin: 01/10/18 21:42 Dose: 5 mg - Labs Labs: 01/10/18 06:31 01/10/18 06:31 PT 11.3 SECONDS (9.7-12.2) 01/08/18 20:40 INR 1.0 01/08/18 20:40 APTT 34 SECONDS (21-34) 01/08/18 20:40 - Constitutional Appears: Non-toxic, No Acute Distress - Head Exam Head Exam: ATRAUMATIC, NORMOCEPHALIC - Respiratory Exam Respiratory Exam: NORMAL BREATHING PATTERN. absent: Respiratory Distress - GI/Abdominal Exam GI & Abdominal Exam: Soft. absent: Distended, Tenderness - Extremities Exam Additional comments: Dopplerable DP pulses b/l - Neurological Exam Neurological Exam: Alert, Awake - Skin Skin Exam: Dry, Warm Assessment and Plan - Assessment and Plan (Free Text) Assessment: 67M admitted for SOB and Chest pain; w/ lower extremity claudication Plan: No immediate need for surgical intervention at this time. D/W Dr. Pasquale Zafar PGY4
--- NOTE | 2018-01-11 13:06 | PCM.HF ---
Heart Failure Core Measure - Heart Failure Ejection Fraction: 40 % or Greater LD Inhibitor Prescribed: Yes Beta-Sin Prescribed: Carvedilol Angiotensin II Receptor Sin Prescribed: No Contraindication/Reason for not providing: on ld AnticoagulationTherapy for Atrial Fibrillation/Atrialflutter: No Contraindication/Reason for not providing: no hx of a fib Aldosterone Antagonist Prescribed: No Contraindication/Reason for not providing: Ef>45 Hydralazine Nitrate Prescribed: Yes Implantable Cardioverter Defibrillator Therapy: No Contraindication/Reason for not providing: ef>45 Cardiac Resynchronization Therapy Prescribed: No Contraindication/Reason for not providing: ef>45 - Follow up Will be discharged to: Home Follow Up Date (must be within 7 days from discharge): 01/16/18 Follow Up Time: 09:00
--- NOTE | 2018-01-11 13:06 | CP.PCM.PN ---
Subjective - Date & Time of Evaluation Date of Evaluation: 01/11/18 Time of Evaluation: 10:40 - Subjective Subjective: Patient seen today denies any chest pain, sob , dizziness, palpitations , leg edema improved No overnight events reported by RN Objective - Vital Signs/Intake and Output Vital Signs (last 24 hours): Temp Pulse Resp BP Pulse Ox 98.3 F 67 18 158/62 H 94 L 01/11/18 08:15 01/11/18 08:15 01/11/18 08:15 01/11/18 09:40 01/11/18 08:15 Intake and Output: 01/11/18 01/11/18 06:59 18:59 Intake Total 50 Balance 50 - Medications Medications: Current Medications Albuterol/Ipratropium (Duoneb 3 Mg/0.5 Mg (3 Ml) Ud) 3 ml INH RQ6 PRN PRN Reason: Wheezing Aspirin (Aspirin Chewable) 81 mg PO DAILY [facility] Last Admin: 01/11/18 09:40 Dose: 81 mg Famotidine (Pepcid) 20 mg PO DAILY [facility] Last Admin: 01/11/18 09:41 Dose: 20 mg Furosemide (Lasix) 40 mg IVP BID [facility] Last Admin: 01/11/18 09:40 Dose: 40 mg Glimepiride (Amaryl) 4 mg PO DAILY [facility] Last Admin: 01/11/18 09:40 Dose: 4 mg Heparin Sodium (Porcine) (Heparin) 5,000 units SC Q8 [facility] Last Admin: 01/11/18 05:52 Dose: 5,000 units Hydralazine HCl (Apresoline) 50 mg PO Q8 [facility] Last Admin: 01/11/18 05:51 Dose: 50 mg Insulin Human Regular (Novolin R) 0 unit SC ACHS [facility] PRN Reason: Protocol Last Admin: 01/11/18 08:47 Dose: 4 unit Lisinopril (Zestril) 20 mg PO DAILY [facility] Last Admin: 01/11/18 09:41 Dose: 20 mg Metformin HCl (Glucophage) 1,000 mg PO BID [facility] Last Admin: 01/09/18 17:35 Dose: 1,000 mg Rosuvastatin Calcium (Crestor) 10 mg PO HS [facility] Last Admin: 01/10/18 21:41 Dose: 10 mg Sitagliptin Phosphate (Januvia) 25 mg PO DAILY [facility] Last Admin: 01/11/18 09:40 Dose: 25 mg Zolpidem Tartrate (Ambien) 5 mg PO HS PRN PRN Reason: Insomnia Last Admin: 01/10/18 21:42 Dose: 5 mg - Labs Labs: 01/10/18 06:31 01/10/18 06:31 PT 11.3 SECONDS (9.7-12.2) 01/08/18 20:40 INR 1.0 01/08/18 20:40 APTT 34 SECONDS (21-34) 01/08/18 20:40 - Constitutional Appears: Well, No Acute Distress - Respiratory Exam Respiratory Exam: Clear to Ausculation Bilateral, NORMAL BREATHING PATTERN - Cardiovascular Exam Cardiovascular Exam: REGULAR RHYTHM, +S1, +S2 - Extremities Exam Extremities Exam: Full ROM, Pedal Edema (mild erythema ) Assessment and Plan - Assessment and Plan (Free Text) Assessment: A/P 67 yr old male with pmhc of HTN, Hypercholesterolemia, CABG admitted with incr. sob, leg swelling /CHF s/p abd. angiography Dr. Giordano consulted for claudication , d/W Dr. Hernandez , no immediate surgical plan now f/u with his office in 1 month D/W Dr. Rose, stable for discharge home today and f/u with Dr. Rose office in 1 week discharge plan discussed with patient who understands and agrees with plan
[2018-01-11 14:44] VITALS: PULSE 77
--- NOTE | 2018-01-11 19:31 | CP.PCM.DIS ---
Provider - Provider Date of Admission: 01/08/18 22:47 Attending physician: Arash Rose MD Time Spent in preparation of Discharge (in minutes): 34 Diagnosis - Discharge Diagnosis (1) Diabetes Status: Acute (2) Congestive heart failure Status: Acute (3) COPD (chronic obstructive pulmonary disease) Status: Acute (4) Insomnia Status: Acute Hospital Course - Lab Results Lab Results: Most Recent Lab Values WBC 4.2 K/uL (4.8-10.8) L 01/10/18 06:31 RBC 4.29 Mil/uL (4.40-5.90) L 01/10/18 06:31 Hgb 13.3 g/dL (12.0-18.0) 01/10/18 06:31 Hct 39.8 % (35.0-51.0) 01/10/18 06:31 MCV 92.6 fL (80.0-94.0) 01/10/18 06:31 MCH 31.1 pg (27.0-31.0) H 01/10/18 06:31 MCHC 33.5 g/dL (33.0-37.0) 01/10/18 06:31 RDW 12.9 % (11.5-14.5) 01/10/18 06:31 Plt Count 146 K/uL (130-400) 01/10/18 06:31 MPV 11.4 fL (7.2-11.7) 01/10/18 06:31 Neut % (Auto) 56.9 % (50.0-75.0) 01/08/18 20:40 Lymph % (Auto) 31.0 % (20.0-40.0) 01/08/18 20:40 [place] % (Auto) 9.9 % (0.0-10.0) 01/08/18 20:40 Eos % (Auto) 1.9 % (0.0-4.0) 01/08/18 20:40 Baso % (Auto) 0.3 % (0.0-2.0) 01/08/18 20:40 Neut # (Auto) 3.7 K/uL (1.8-7.0) 01/08/18 20:40 Lymph # (Auto) 2.0 K/uL (1.0-4.3) 01/08/18 20:40 [place] # (Auto) 0.6 K/uL (0.0-0.8) 01/08/18 20:40 Eos # (Auto) 0.1 K/uL (0.0-0.7) 01/08/18 20:40 Baso # (Auto) 0.0 K/uL (0.0-0.2) 01/08/18 20:40 PT 11.3 SECONDS (9.7-12.2) 01/08/18 20:40 INR 1.0 01/08/18 20:40 APTT 34 SECONDS (21-34) 01/08/18 20:40 D-Dimer, Quantitative 225 ng/mlDDU (0-243) 01/08/18 20:40 Sodium 137 mmol/L (132-148) 01/10/18 06:31 Potassium 3.8 mmol/L (3.6-5.2) 01/10/18 06:31 Chloride 99 mmol/L (98-107) 01/10/18 06:31 Carbon Dioxide 26 mmol/L (22-30) 01/10/18 06:31 Anion Gap 16 (10-20) 01/10/18 06:31 BUN 31 mg/dL (9-20) H 01/10/18 06:31 Creatinine 1.4 mg/dL (0.8-1.5) 01/10/18 06:31 Est GFR ( Amer) > 60 01/10/18 06:31 Est GFR (Non-Af Amer) 51 01/10/18 06:31 POC Glucose (mg/dL) 373 mg/dL (65-110) H 01/11/18 12:10 Random Glucose 257 mg/dL (75-110) H 01/10/18 06:31 Calcium 8.5 mg/dl (8.6-10.4) L 01/10/18 06:31 Total Bilirubin 0.8 mg/dL (0.2-1.3) 01/08/18 20:40 AST 23 U/L (17-59) 01/08/18 20:40 ALT 24 U/L (21-72) 01/08/18 20:40 Alkaline Phosphatase 74 U/L (38-126) 01/08/18 20:40 Total Creatine Kinase 106 U/L (55-170) 01/09/18 12:42 CK-MB (Mass) 1.03 ng/mL (0.0-3.38) 01/09/18 12:42 Troponin I 0.0230 ng/mL (0.00-0.120) 01/09/18 12:42 NT-Pro-B Natriuret Pep 1790 pg/mL (0-900) H 01/08/18 20:40 Total Protein 6.9 g/dL (6.3-8.3) 01/08/18 20:40 Albumin 3.9 g/dL (3.5-5.0) 01/08/18 20:40 Globulin 3.0 gm/dL (2.2-3.9) 01/08/18 20:40 Albumin/Globulin Ratio 1.3 (1.0-2.1) 01/08/18 20:40 - Hospital Course Hospital Course: A/P 67 yr old male with pmhc of HTN, Hypercholesterolemia, CABG admitted with incr. sob, leg swelling /CHF s/p abd. angiography Dr. Giordano consulted for claudication , d/W Dr. Hernandez , no immediate surgical plan now f/u with his office in 1 month Stable for discharge home today and f/u with me in office in 1 week discharge plan discussed with patient who understands and agrees with plan Discharge Exam - Head Exam Head Exam: ATRAUMATIC, NORMOCEPHALIC - Eye Exam Eye Exam: Normal appearance - ENT Exam ENT Exam: Mucous Membranes Moist - Respiratory Exam Respiratory Exam: Decreased Breath Sounds, Rales - Cardiovascular Exam Cardiovascular Exam: REGULAR RHYTHM, +S1, +S2, Systolic Murmur - GI/Abdominal Exam GI & Abdominal Exam: Normal Bowel Sounds - Rectal Exam Rectal Exam: Deferred Discharge Plan - Discharge Medications Prescriptions: hydrALAZINE [Apresoline] 50 mg PO Q8 #90 tab Furosemide [Lasix] 40 mg PO DAILY #30 tab Famotidine [Pepcid] 20 mg PO DAILY #30 tab Lisinopril [Zestril] 20 mg PO DAILY #30 tab - Follow Up Plan Condition: FAIR Disposition: HOME/ ROUTINE Instructions: Heart Healthy Diet, Heart Failure, Adult (DC), Carbohydrate Counting Diet, Famotidine, Furosemide, Hydralazine, Lisinopril, Diabetic Meal Planning , Heart Failure (DC), Heart Failure (GEN), Pacemaker (DC), Pacemaker ( GEN), Pulmonary Edema (DC), Pulmonary Edema (GEN), Ascites (DC), Ascites (GEN) Additional Instructions: Please f/u with Dr. Rose office in 1 week Please f/u with Dr. Giordano office in 1 month - call and make appointment Referrals: Arash Rose MD [Staff Provider] - Angel Giordano Jr., MD [Staff Provider] -
== END 2018-01-11 14:50 | disposition home or self-care (01) | DRG 293 ==
LOC: C.ER 17:49 → C.9E 22:47 → C.6T 01-09 11:18
PROVIDERS: ADMIT Internal Medicine; ATTEND Internal Medicine
PROC: B41DYZZ Fluoroscopy of Aorta and Bilateral Lower Extremity Arteries using Other Contrast (ICD-10-PCS; principal; 2018-01-09)
DX: I11.0 Hypertensive heart disease with heart failure (principal); J44.9 Chronic obstructive pulmonary disease, unspecified; Z95.1 Presence of aortocoronary bypass graft; E11.9 Type 2 diabetes mellitus without complications; I50.33 Acute on chronic diastolic (congestive) heart failure; E78.00 Pure hypercholesterolemia, unspecified; I25.10 Atherosclerotic heart disease of native coronary artery without angina pectoris; G47.00 Insomnia, unspecified; I70.219 Atherosclerosis of native arteries of extremities with intermittent claudication, unspecified extremity; Z79.4 Long term (current) use of insulin

== ENCOUNTER 2018-01-16 12:16 | Inpatient (IN) | payer MEDICARE, MEDICAID ==
[2018-01-16 12:16] VITALS: BMI 32.8
[2018-01-16] MEDS ORDERED: Iodixanol 320 MG/ML 100 ML BOTTLE IV ONE (12:26)
[2018-01-16 12:33] LABS: BASO % 0.2 % (0.0-2.0); LYMPH # 1.2 K/uL (1.0-4.3); LYMPH % 8.2 % (20.0-40.0); MEAN CELL VOLUME 90.9 fL (80.0-94.0); MEAN CORPUSCULAR HEMOGLOBIN 31.1 pg (27.0-31.0); MEAN CORPUSCULAR HGB CONC 34.2 g/dL (33.0-37.0); MEAN PLATELET VOLUME 11.7 fL (7.2-11.7); MONO # 0.6 K/uL (0.0-0.8); MONO % 4.4 % (0.0-10.0); NEUT # 12.6 K/uL (1.8-7.0); NEUT % 87.2 % (50.0-75.0); NRBC % 0.1 % (0.0-2.0); PLATELET COUNT 233 K/uL (130-400); RBC 5.29 Mil/uL (4.40-5.90); RED CELL DISTRIBUTION WIDTH 12.7 % (11.5-14.5)
[2018-01-16 12:34] LABS: HEMOGLOBIN 16.4 g/dL (12.0-18.0); WHITE BLOOD COUNT 14.5 K/uL (4.8-10.8)
[2018-01-16 12:51] LABS: ALB/GLOB RATIO 1.2 (1.0-2.1); ALBUMIN 4.3 g/dL (3.5-5.0); ALT/SGPT 39 U/L (21-72); AST/SGOT 32 U/L (17-59); BLOOD UREA NITROGEN 43 mg/dL (9-20); CALCIUM 9.9 mg/dl (8.6-10.4); GFR AFRICAN-AMERICAN 52; GFR NON-AFRICAN AMERICAN 43; HDL CHOLESTEROL 49 mg/dL (30-70)
--- NOTE | 2018-01-16 12:51 | CT ---
PROCEDURE: CT HEAD WITHOUT CONTRAST. HISTORY: Code Stroke COMPARISON: None available. TECHNIQUE: Axial computed tomography images were obtained through the head/brain without intravenous contrast. Radiation dose: Total exam DLP = 2026.84 mGy-cm. This CT exam was performed using one or more of the following dose reduction techniques: Automated exposure control, adjustment of the mA and/or kV according to patient size, and/or use of iterative reconstruction technique. FINDINGS: HEMORRHAGE: No intracranial hemorrhage. BRAIN: There is a large old right [employer] DATA [employer]LYST territory infarction involving the occipital lobe with volume loss and ex vacuo dilatation of the occipital on. There are also old lacunar infarctions in the left borrero radiata, basal ganglia, left thalamus, and right posterior inferior external capsule. There are moderate chronic microangiopathic changes. There is no mass, mass effect or abnormal extra-axial fluid collection. There are symmetric bilateral basal ganglia calcifications. VENTRICLES: There is mild age-related global parenchymal volume loss and proportionate enlargement of the ventricles and cortical sulci. CALVARIUM: The skull base and calvarium are normal. PARANASAL SINUSES: There is a retention cyst/polyp in the right maxillary sinus. There is mild polypoid mucosal thickening in the left maxillary sinus. The remaining included paranasal sinuses are predominantly clear. MASTOID AIR CELLS: Predominantly clear. OTHER FINDINGS: None. IMPRESSION: No acute intracranial abnormality. If there is a persistent focal neurologic deficit and an ongoing clinical concern for acute infarction, an MRI of the brain without intravenous contrast would be a more sensitive modality for evaluation of hyperacute/acute ischemic infarction. 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 Old lacunar infarctions in the left borrero radiata, basal ganglia, thalamus and right inferior external capsule. Mild chronic microangiopathic changes and mild age-related global parenchymal volume loss. Important findings were discussed with PA and conveyed to Dr. Indigo Sauceda In the ER on 01/16/2018 at 12:45 p.m.
[2018-01-16 12:56] LABS: BANDS 1 % (0-2); LYMPHOCYTE 7 % (20-40); MONOCYTE 1 % (0-10); NEUTROPHIL 91 % (50-75); PLATELET ESTIMATE NORMAL (NORMAL); TOTAL CELLS COUNTED 100
--- NOTE | 2018-01-16 12:56 | C.PDOC ---
History Of Present Illness Patient BIBA for AMS, possible stroke vs seizure. As per daughter, she last spoke to patient last night on the phone at approx 10:30pm, and he was "normal" . She visited him today at approx 11:30, found him nonverbal, stiff appearing on his bed. As per EMS, he was given Versed in the field for possible seizure. PMHx of DM II, HTN, hyperlipidemia, CAD, CABG. Time Seen by Provider: 01/16/18 12:24 Chief Complaint (Nursing): Weakness/Neurological Deficit History Per: EMS, Family History/Exam Limitations: clinical condition Onset/Duration Of Symptoms: Unknown Past Medical History Reviewed: Historical Data, Nursing Documentation, Vital Signs Vital Signs: Last Vital Signs Temp 99.2 F 01/22/18 10:00 Pulse 75 01/22/18 10:25 Resp 16 01/22/18 10:25 BP 149/65 01/22/18 10:25 Pulse Ox 100 01/22/18 10:43 - Medical History PMH: HTN, Hypercholesterolemia Denies: Chronic Kidney Disease Surgical History: CABG (8 yrs ago) - [facility] Procedures CONTRAST AORTOGRAM (01/16/14) CONTRAST ARTERIOGRAM-LEG (01/16/14) FLUOROSCOPY OF AORTA, BI LE ART USING OTH CONTRAST (01/08/18) Family History: States: No Known Family Hx - Social History Hx Alcohol Use: No Hx Substance Use: No Review Of Systems Review Of Systems: ROS cannot be obtained secondary to pt's inabilty to answer questions. Physical Exam - Physical Exam Eye(s): bilateral: Other (right sided deviated gaze, irregular pupil left eye, nonreactive B/L ) Nose: Other (copious clear rhinorhea) Oral Mucosa: Moist Tongue: Normal Appearing, No Swelling Lips: Normal Appearing, No Swelling Chest: Other (sternotomy scar) Cardiovascular: Rhythm Regular Respiratory: Normal Breath Sounds, No Rales, No Rhonchi, No Wheezing Gastrointestinal/Abdominal: Normal Exam, Bowel Sounds, Soft, No Tenderness Neurological/Psych: Other (nonverbal, right sided gaze deviation, no obvious facial droop, LUE contracted, LLE 0/5 motor strength) ED Course And Treatment - Laboratory Results Result Diagrams: 01/22/18 06:02 01/22/18 06:02 O2 Sat by Pulse Oximetry: 100 (RA) Pulse Ox Interpretation: Normal - Radiology CXR: Interpreted by Me, Viewed By Me (ET tube in trachea, OG tube below diaphragm) - CT Scan/US CTA HEAD Other Rad Studies (CT/US): Read By Radiologist, Radiology Report Reviewed CT/US Interpretation: Accession No. : [id number]. Patient Name / ID : IOANA ORTIZ / [id number]. Exam Date : 01/16/2018 12:58:04 ( Approved ). Study Comment : Sex / Age : M / 67Y. Creator : Maria Teresa Andrade. Dictator : Alana Chappell MD. Brass Instrument Repair Technician : Fisher Weir : Alana Chappell MD. Approver2 : Report Date : 01/16/2018 13:14:21. My Comment : . PROCEDURE: CTA HEAD AND NECK WITH CONTRAST. HISTORY: code stroke. COMPARISON: None available. TECHNIQUE: Initial noncontrast head CT was performed. Subsequently , CT angiogram of the head and neck were performed after the intravenous administration of 80 mL of Omnipaque 350. Contiguous 1.5mm thick images were obtained in the axial plane of the neck. 2-D coronal and sagittal MPR images were obtained. Imaging postprocessing was performed with 3-D images also obtained. A delayed contrast head CT was also obtained. This CT exam was performed using one or more of the following dose reduction techniques: Automated exposure control, adjustment of the mA and/or kV according to patient size, and/or use of iterative reconstruction technique. Contrast dose: 100 mL Visipaque. Radiation dose: Total exam DLP = 1090.36 mGy-cm. FINDINGS: HEAD: Right: The intracranial internal carotid artery, and anterior and middle cerebral arteries are widely patent. Left: The intracranial internal carotid artery, and anterior and middle cerebral arteries are widely patent. Posterior circulation: The visualized intracranial vertebral arteries, basilar artery and posterior cerebral arteries are widely patent. There is no endoluminal filling defect to suggest thrombus. There is no intracranial saccular aneurysm. NECK: There is a two vessel aortic arch with common origin of the innominate and left common carotid artery is. There is no stenosis at the origins of the great vessels at the level of the aortic arch. There are advanced calcified atherosclerotic plaques in the carotid bulbs and proximal internal carotid arteries. The distal internal carotid arteries are tortuous. Right Carotid: On the right, the common carotid, internal carotid and external carotid arteries are widely patent. There is no hemodynamically significant stenosis in the internal carotid artery by NASCET criteria. Left Carotid: On the left, the common carotid, internal carotid and external carotid arteries are widely patent.There is no hemodynamically significant stenosis in the internal carotid artery by NASCET criteria. The vertebral arteries are widely patent. The visualized soft tissues of the neck are normal. The visualized brain and cervical spine are within normal limits. The endotracheal and nasogastric tubes remain in place. IMPRESSION: No evidence of intraluminal thrombus, occlusion or definite significant stenosis. Advanced calcified atherosclerotic plaques in the carotid bulbs and proximal internal carotid arteries without hemodynamically significant stenosis. CT HEAD Other Rad Studies (CT/US): Read By Radiologist, Radiology Report Reviewed CT/US Interpretation: Accession No. : [id number]. Patient Name / ID : IOANA ORTIZ / [id number]. Exam Date : 01/16/2018 12:27:19 ( Approved ). Study Comment : Sex / Age : M / 67Y. Creator : Maria Teresa Andrade. Dictator : Alana Chappell MD. Brass Instrument Repair Technician : Fisher Weir : Alana Chappell MD. Approver2 : Report Date : 01/16/2018 12:32:03. My Comment : . PROCEDURE: CT HEAD WITHOUT CONTRAST. HISTORY: Code Stroke. COMPARISON: None available. TECHNIQUE: Axial computed tomography images were obtained through the head/brain without intravenous contrast. Radiation dose: Total exam DLP = 2026.84 mGy-cm. This CT exam was performed using one or more of the following dose reduction techniques: Automated exposure control, adjustment of the mA and/ or kV according to patient size, and/or use of iterative reconstruction technique. FINDINGS: HEMORRHAGE: No intracranial hemorrhage. BRAIN: There is a large old right SENIOR ELECTRICAL ESTIMATOR territory infarction involving the occipital lobe with volume loss and ex vacuo dilatation of the occipital on. There are also old lacunar infarctions in the left borrero radiata, basal ganglia, left thalamus, and right posterior inferior external capsule. There are moderate chronic microangiopathic changes. There is no mass, mass effect or abnormal extra- axial fluid collection. There are symmetric bilateral basal ganglia calcifications. VENTRICLES: There is mild age-related global parenchymal volume loss and proportionate enlargement of the ventricles and cortical sulci. CALVARIUM: The skull base and calvarium are normal. PARANASAL SINUSES: There is a retention cyst/polyp in the right maxillary sinus. There is mild polypoid mucosal thickening in the left maxillary sinus. The remaining included paranasal sinuses are predominantly clear. MASTOID AIR CELLS: Predominantly clear. OTHER FINDINGS: None. IMPRESSION: No acute intracranial abnormality. If there is a persistent focal neurologic deficit and an ongoing clinical concern for acute infarction, an MRI of the brain without intravenous contrast would be a more sensitive modality for evaluation of hyperacute/acute ischemic infarction. 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 Old lacunar infarctions in the left borrero radiata, basal ganglia, thalamus and right inferior external capsule. Mild chronic microangiopathic changes and mild age-related global parenchymal volume loss. Important findings were discussed with PA and conveyed to Dr. Indigo Sauceda In the ER on 01/16/2018 at 12:45 p.m. Progress Note: Code stroke called. Patient taken to CT scan, after initial scan began to desaturate. Brought back to ER and intubated by me emergently. 20mg etomidate and 60mg rocuronium given, (+) successful intubation, equal breath sounds B/L and (+) color change on capnometer. OG tube inserted by me. Drywall Hanger Helper Dr. Concepcion spoken with and agrees with ICU admission. Dr. Rose also notified. - Physician Consult Information Physician Contacted: Sukumar Perez Outcome Of Conversation: Discussed patient with neurology race relations adviser - suspicious for seizure (not CVA), recommends propofol + 4mg ativan, admission, will see patient on consult. Requests EEG. Critical Care Time - Critical Care Note Total Time (in mins): 50 Documented critical care: time excludes all time spent performing seperately billable procedures. Disposition - Disposition Disposition: HOSPITALIZED Disposition Time: 13:59 Condition: SERIOUS - Clinical Impression Clinical Impression: Airway compromise, Seizure, Altered mental status Decision To Admit - Pt Status Changed To: Hospital Disposition Of: Inpatient - Admit Certification Admit to Inpatient:: After my assessment, the patient will require hospitalization for at least two midnights. This is because of the severity of symptoms shown, intensity of services needed, and/or the medical risk in this patient being treated as an outpatient. - InPatient: Physician Admission Certification: I certify that this patient requires 2 or more midnights of care for the following reason:: see notes - . Bed Request Type: ICU Admitting Physician: Arash Rose Patient Diagnosis: Airway compromise, Seizure, Altered mental status
[2018-01-16 12:58] LABS: INR 0.9; PROTHROMBIN TIME 10.6 SECONDS (9.7-12.2)
[2018-01-16 12:59] LABS: LDL CHOLESTEROL 103 mg/dL (0-129)
--- NOTE | 2018-01-16 13:00 | RAD ---
HISTORY: Code Stroke COMPARISON: Chest x-ray performed 01/08/18 TECHNIQUE: Chest, one view. FINDINGS: Examination limited by habitus. Endotracheal tube terminates approximately 2.3 cm above the rianna which is not well visualized. Nasogastric tube extends expected location of the stomach. LUNGS: Mild venous congestion. Please note that chest x-ray has limited sensitivity for the detection of pulmonary masses. PLEURA: No significant pleural effusion identified. No definite pneumothorax . CARDIOVASCULAR: Median sternotomy wires with evidence of CABG. Cardiomegaly. OSSEOUS STRUCTURES: Degenerative changes. VISUALIZED UPPER ABDOMEN: Elevation of the right hemidiaphragm. Left upper quadrant surgical clips. OTHER FINDINGS: None. IMPRESSION: Endotracheal tube terminates approximately 2.3 cm above the rianna which is not well visualized. Nasogastric tube extends expected location of the stomach. Median sternotomy wires with evidence of CABG. Cardiomegaly. Hypoinflation. Mild venous congestion.
[2018-01-16] MEDS ORDERED: Propofol 10 mg/ml 1,000 MG/100 ML VIAL IV STA (13:12)
[2018-01-16] MEDS ORDERED: Propofol 10 mg/ml 1,000 MG/100 ML VIAL ONE (13:31)
--- NOTE | 2018-01-16 13:34 | CT ---
PROCEDURE: CTA HEAD AND NECK WITH CONTRAST HISTORY: code stroke COMPARISON: None available. TECHNIQUE: Initial noncontrast head CT was performed. Subsequently, CT angiogram of the head and neck were performed after the intravenous administration of 80 mL of Omnipaque 350. Contiguous 1.5mm thick images were obtained in the axial plane of the neck. 2-D coronal and sagittal MPR images were obtained. Imaging postprocessing was performed with 3-D images also obtained. A delayed contrast head CT was also obtained. This CT exam was performed using one or more of the following dose reduction techniques: Automated exposure control, adjustment of the mA and/or kV according to patient size, and/or use of iterative reconstruction technique. Contrast dose: 100 mL Visipaque Radiation dose: Total exam DLP = 1090.36 mGy-cm. FINDINGS: HEAD: Right: The intracranial internal carotid artery, and anterior and middle cerebral arteries are widely patent. Left: The intracranial internal carotid artery, and anterior and middle cerebral arteries are widely patent. Posterior circulation: The visualized intracranial vertebral arteries, basilar artery and posterior cerebral arteries are widely patent. There is no endoluminal filling defect to suggest thrombus. There is no intracranial saccular aneurysm. NECK: There is a two vessel aortic arch with common origin of the innominate and left common carotid artery is. There is no stenosis at the origins of the great vessels at the level of the aortic arch. There are advanced calcified atherosclerotic plaques in the carotid bulbs and proximal internal carotid arteries. The distal internal carotid arteries are tortuous. Right Carotid: On the right, the common carotid, internal carotid and external carotid arteries are widely patent. There is no hemodynamically significant stenosis in the internal carotid artery by NASCET criteria. Left Carotid: On the left, the common carotid, internal carotid and external carotid arteries are widely patent.There is no hemodynamically significant stenosis in the internal carotid artery by NASCET criteria. The vertebral arteries are widely patent. The visualized soft tissues of the neck are normal. The visualized brain and cervical spine are within normal limits. The endotracheal and nasogastric tubes remain in place. IMPRESSION: No evidence of intraluminal thrombus, occlusion or definite significant stenosis. Advanced calcified atherosclerotic plaques in the carotid bulbs and proximal internal carotid arteries without hemodynamically significant stenosis.
--- NOTE | 2018-01-16 13:50 | CT ---
CT chest without IV contrast Indication: Abnormal chest x-ray Technique: Contiguous axial images were obtained through the chest without intravenous contrast enhancement. Sagittal and coronal reconstructions were generated and reviewed. Radiation dose (DLP): 791.65 MGy-cm. Comparison: Chest x-ray performed earlier the same day. Findings: IV contrast from prior CTA noted. Endotracheal tube terminates approximately 2.3 cm above the rianna. Nasogastric tube extends expected location of the stomach. Visualized portions of the inferior thyroid gland appear unremarkable. Atherosclerotic calcifications of the mediastinal and hilar vascular structures which appear otherwise grossly unremarkable. Median sternotomy wires. Cardiomegaly. Dense coronary artery calcifications. Patchy atelectasis/ infiltrates involving right upper and bilateral lower lobes. No pleural effusion. No pneumothorax. Punctate right lung base calcification consistent with granuloma. Limited visualization of the noncontrast upper abdomen: Hepatic calcification, likely granuloma. Pancreatic atrophy. Degenerative changes. Kyphosis. Bilateral gynecomastia. Impression: ET tube. NG tube. Cardiomegaly. Atherosclerotic calcifications including coronary arteries. Median sternotomy wires. Patchy atelectasis or infiltrates involving the right upper and bilateral lower lobes. Evidence of prior granulomatous infection.
[2018-01-16] MEDS ORDERED: Propofol 10 mg/ml 1,000 MG/100 ML VIAL IV PRN (14:31)
--- NOTE | 2018-01-16 14:42 | CP.PCM.CON ---
<Navin Rodriguez - Last Filed: 01/16/18 15:35> History of Present Illness - History of Present Illness History of Present Illness: CCU Consult Note 67M w/PMH CAD s/p CABG, multiple CVA, PVD, DM, HTN who came to the ED after being found unresponsive by daughter. Patient's last known at baseline was in the evening yesterday. Patient was found today in his bed unresponsive and was brought into the hospital. Patient was seizing and in respiratory distress; intubated in ED. Per daughter, patient has never experienced seizures before, but the family is aware of patient's previous strokes. Patient has been given Ativan for his seizures. ROS unobtainable as the patient is intubated and sedated on Propofol. PMHx: CAD s/p CABG, multiple CVA, PVD, DM, HTN PSHx: CABG 15 years ago Allergies: NKA Social: Per family, he lives alone. Non-smoker, occasional alcohol. No drug use. Family Hx: No history of seizure disorder in the family. PMD: Dr. Rose Review of Systems - Review of Systems Systems not reviewed;Unavailable: Intubated Past Patient History - Past Medical History & Family History Past Medical History?: Yes - Past Social History Smoking Status: Never Smoked - CARDIAC Hx Hypercholesterolemia: Yes Hx Hypertension: Yes - PULMONARY Hx Respiratory Disorders: Yes Other/Comment: s o b on exertion - NEUROLOGICAL Hx Neurological Disorder: No - HEENT Hx HEENT Problems: Yes Hx Cataracts: Yes (bilateral cat ext with iol) - RENAL Hx Chronic Kidney Disease: No - ENDOCRINE/METABOLIC Hx Endocrine Disorders: Yes Hx Diabetes Mellitus Type 2: Yes - HEMATOLOGICAL/ONCOLOGICAL Hx Blood Disorders: No - INTEGUMENTARY Hx Dermatological Problems: Yes Other/Comment: small ulcers both great toes - MUSCULOSKELETAL/RHEUMATOLOGICAL Hx Musculoskeletal Disorders: No Hx Falls: Yes - GASTROINTESTINAL Hx Gastrointestinal Disorders: No - GENITOURINARY/GYNECOLOGICAL Hx Genitourinary Disorders: No - PSYCHIATRIC Hx Substance Use: No - SURGICAL HISTORY Hx Coronary Artery Bypass Graft: Yes (8 yrs ago) - ANESTHESIA Hx Anesthesia: Yes Hx Anesthesia Reactions: No Hx Malignant Hyperthermia: No Meds Allergies/Adverse Reactions: Allergies Allergy/AdvReac Type Severity Reaction Status Date / Time No Known Allergies Allergy Verified 01/08/18 19:23 Physical Exam - Constitutional Appears: Other (intubated sedated, actively seizing on inital evaluation) - Head Exam Head Exam: ATRAUMATIC, NORMAL INSPECTION, NORMOCEPHALIC - Eye Exam Eye Exam: EOMI - ENT Exam ENT Exam: Mucous Membranes Moist - Respiratory Exam Respiratory Exam: Clear to Auscultation Bilateral Additional comments: intubated - Cardiovascular Exam Cardiovascular Exam: REGULAR RHYTHM - GI/Abdominal Exam GI & Abdominal Exam: Normal Bowel Sounds, Soft. absent: Distended, Tenderness Additional comments: small umbilica hernia - Extremities Exam Extremities exam: Negative for: joint swelling, tenderness - Neurological Exam Additional comments: sedated - Skin Skin Exam: Dry, Intact, Normal Color, Warm Results - Vital Signs Recent Vital Signs: Last Vital Signs Temp 96.3 F L 01/16/18 13:56 Pulse 87 01/16/18 14:10 Resp 22 01/16/18 14:10 BP 114/60 01/16/18 14:10 Pulse Ox 100 01/16/18 14:10 - Labs Result Diagrams: 01/16/18 12:27 01/16/18 12:27 Labs: Laboratory Results - last 24 hr 01/16/18 01/16/18 01/16/18 12:16 12:27 12:27 WBC 14.5 H D RBC 5.29 Hgb 16.4 D Hct 48.0 MCV 90.9 MCH 31.1 H MCHC 34.2 RDW 12.7 Plt Count 233 MPV 11.7 Neut % (Auto) 87.2 H Lymph % (Auto) 8.2 L [place] % (Auto) 4.4 Eos % (Auto) 0.0 Baso % (Auto) 0.2 Neut # (Auto) 12.6 H Lymph # (Auto) 1.2 [place] # (Auto) 0.6 Eos # (Auto) 0.0 Baso # (Auto) 0.0 Neutrophils % (Manual) 91 H Band Neutrophils % 1 Lymphocytes % (Manual) 7 L Monocytes % (Manual) 1 Platelet Estimate Normal RBC Morphology Normal PT 10.6 INR 0.9 APTT 33 Sodium Potassium Chloride Carbon Dioxide Anion Gap BUN Creatinine Est GFR ( Amer) Est GFR (Non-Af Amer) POC Glucose (mg/dL) 139 H Random Glucose Hemoglobin A1c Calcium Total Bilirubin AST ALT Alkaline Phosphatase Troponin I Total Protein Albumin Globulin Albumin/Globulin Ratio Triglycerides Cholesterol LDL Cholesterol Direct HDL Cholesterol Blood Type Antibody Screen 01/16/18 01/16/18 01/16/18 12:27 12:27 12:27 WBC RBC Hgb Hct MCV MCH MCHC RDW Plt Count MPV Neut % (Auto) Lymph % (Auto) [place] % (Auto) Eos % (Auto) Baso % (Auto) Neut # (Auto) Lymph # (Auto) [place] # (Auto) Eos # (Auto) Baso # (Auto) Neutrophils % (Manual) Band Neutrophils % Lymphocytes % (Manual) Monocytes % (Manual) Platelet Estimate RBC Morphology PT INR APTT Sodium 145 Potassium 4.3 Chloride 100 Carbon Dioxide 29 Anion Gap 20 BUN 43 H Creatinine 1.6 H Est GFR ( Amer) 52 Est GFR (Non-Af Amer) 43 POC Glucose (mg/dL) Random Glucose 124 H Hemoglobin A1c 9.2 H Calcium 9.9 Total Bilirubin 0.8 AST 32 ALT 39 Alkaline Phosphatase 78 Troponin I < 0.0120 Total Protein 7.9 Albumin 4.3 Globulin 3.6 Albumin/Globulin Ratio 1.2 Triglycerides 115 Cholesterol 186 LDL Cholesterol Direct 103 HDL Cholesterol 49 Blood Type O POSITIVE Antibody Screen Negative Assessment & Plan - Assessment and Plan (Free Text) Assessment: 67M W/ likely new onset seizures Plan: Neuro: Likely new onset seizures. Dr. Perez on consult, EEG follow up Cards:No acute issues, hx of CABG, PVD and Multiple CVA, HTN, will continue home medications Pulm: patient was actively seizing, so intubated to protect airway Renal: No acute issues GI: Glucerna, f/u lens gauger reccs Endo: DM on insulin, ISS PPX: Protonix and Lovenox <Tristan Cnocepcion - Last Filed: 01/16/18 17:19> Meds - Medications Medications: Current Medications Albuterol Sulfate (Albuterol 0.083% Inhal Lynne (2.5 Mg/3 Ml) Ud) 2.5 mg IH RQ6 SHINE Aspirin (Aspirin Chewable) 81 mg PO DAILY SHINE Carvedilol (Coreg) 25 mg PO BID SHINE Docusate Sodium (Colace) 100 mg PO BID SHINE Enoxaparin Sodium (Lovenox) 40 mg SC DAILY SHINE Hydralazine HCl (Apresoline) 50 mg PO Q8 SHINE Propofol (Diprivan) 1,000 mg in 100 mls @ 3.103 mls/hr IV .Q24H PRN; Protocol; 5 MCG/KG/MIN PRN Reason: TITRATE PER MD ORDER Levetiracetam 500 mg/ Sodium (Chloride) 105 mls @ 420 mls/hr IVPB Q12H SHINE Insulin Human Regular (Novolin R) 0 unit SC Q6 SHINE PRN Reason: Protocol Lisinopril (Zestril) 20 mg PO DAILY SHINE Pantoprazole Sodium (Protonix Inj) 40 mg IVP DAILY SHINE Rosuvastatin Calcium (Crestor) 10 mg PO HS SHINE Results - Vital Signs Recent Vital Signs: Last Vital Signs Temp 96.3 F L 01/16/18 13:56 Pulse 79 01/16/18 16:10 Resp 18 01/16/18 16:10 BP 121/67 01/16/18 15:24 Pulse Ox 99 01/16/18 16:10 - Labs Result Diagrams: 01/16/18 12:27 01/16/18 12:27 Labs: Laboratory Results - last 24 hr 01/16/18 01/16/18 01/16/18 12:16 12:27 12:27 WBC 14.5 H D RBC 5.29 Hgb 16.4 D Hct 48.0 MCV 90.9 MCH 31.1 H MCHC 34.2 RDW 12.7 Plt Count 233 MPV 11.7 Neut % (Auto) 87.2 H Lymph % (Auto) 8.2 L [place] % (Auto) 4.4 Eos % (Auto) 0.0 Baso % (Auto) 0.2 Neut # (Auto) 12.6 H Lymph # (Auto) 1.2 [place] # (Auto) 0.6 Eos # (Auto) 0.0 Baso # (Auto) 0.0 Neutrophils % (Manual) 91 H Band Neutrophils % 1 Lymphocytes % (Manual) 7 L Monocytes % (Manual) 1 Platelet Estimate Normal RBC Morphology Normal PT 10.6 INR 0.9 APTT 33 Sodium Potassium Chloride Carbon Dioxide Anion Gap BUN Creatinine Est GFR ( Amer) Est GFR (Non-Af Amer) POC Glucose (mg/dL) 139 H Random Glucose Hemoglobin A1c Calcium Total Bilirubin AST ALT Alkaline Phosphatase Troponin I Total Protein Albumin Globulin Albumin/Globulin Ratio Triglycerides Cholesterol LDL Cholesterol Direct HDL Cholesterol Blood Type Antibody Screen 01/16/18 01/16/18 01/16/18 12:27 12:27 12:27 WBC RBC Hgb Hct MCV MCH MCHC RDW Plt Count MPV Neut % (Auto) Lymph % (Auto) [place] % (Auto) Eos % (Auto) Baso % (Auto) Neut # (Auto) Lymph # (Auto) [place] # (Auto) Eos # (Auto) Baso # (Auto) Neutrophils % (Manual) Band Neutrophils % Lymphocytes % (Manual) Monocytes % (Manual) Platelet Estimate RBC Morphology PT INR APTT Sodium 145 Potassium 4.3 Chloride 100 Carbon Dioxide 29 Anion Gap 20 BUN 43 H Creatinine 1.6 H Est GFR ( Amer) 52 Est GFR (Non-Af Amer) 43 POC Glucose (mg/dL) Random Glucose 124 H Hemoglobin A1c 9.2 H Calcium 9.9 Total Bilirubin 0.8 AST 32 ALT 39 Alkaline Phosphatase 78 Troponin I < 0.0120 Total Protein 7.9 Albumin 4.3 Globulin 3.6 Albumin/Globulin Ratio 1.2 Triglycerides 115 Cholesterol 186 LDL Cholesterol Direct 103 HDL Cholesterol 49 Blood Type O POSITIVE Antibody Screen Negative Attending/Attestation - Attestation I have personally seen and examined this patient.: Yes I have fully participated in the care of the patient.: Yes I have reviewed all pertinent clinical information: Yes Notes (Text): 01/16/18 17:17 I have seen and examined the patient. Medical records, lab studies, and imaging were reviewed by me and a management plan was formulated on multidisciplinary rounds with resident Dr. Rodriguez. I agree with their documented assessment and plan. Patient intubated and sedated for respiratory failure secondary to new onset seizures. Multiple old infarcts on head CT. Loading with Keppra and starting maintenance dosing. EEG ordered, Neuro - Dr. Tracey. Critical Care Time 35 minutes. Multi-disciplinary rounds were performed with house staff, nursing, speech therapy, respiratory therapy, pharmacy and nutrition with integrated input from the primary team/attending and other consulting services. The documented time is cumulative and includes review of patient data/exams/labs/chart review and examination of the patient on rounds and throughout the day; time is exclusive of any procedures or teaching time. 01/16/18 17:19
[2018-01-16] MEDS ORDERED: Bisacodyl 5mg EC Tab PO ONE (14:56)
--- NOTE | 2018-01-16 15:04 | CP.PCM.CON ---
History of Present Illness - History of Present Illness History of Present Illness: Neurology Consult note for Dr. Perez This is a 67 year old male with PMHx CAD s/p CABG, multiple CVA, PVD, DM, HTN who presented to the ED brought in by ambulance after being found unresponsive by his daughter. Patient's last known well time was in the evening yesterday around 10:30 PM via phone call as the patient lives alone. This morning the daughter called multiple times, and since the patient was not answering, she went to visit. Patient was found in his bed unresponsive and was brought into the hospital. Patient was seizing and in respiratory distress; therefore he was intubated. Per daughter, patient has never experienced seizures before, but the family is aware of patient's previous strokes. Patient has been given Ativan for his seizures. ROS unobtainable as the patient is intubated and sedated on Propofol. PMHx: CAD s/p CABG, multiple CVA, PVD, DM, HTN PSHx: CABG 15 years ago Allergies: NKA Social: Per family, he lives alone. Non-smoker, occasional alcohol. No drug use. Family Hx: No history of seizure disorder in the family. PMD: Dr. Rose Review of Systems - Review of Systems Systems not reviewed;Unavailable: Acuity of Condition, Intubated Past Patient History - Past Medical History & Family History Past Medical History?: Yes - Past Social History Smoking Status: Never Smoked - CARDIAC Hx Hypercholesterolemia: Yes Hx Hypertension: Yes - PULMONARY Hx Respiratory Disorders: Yes Other/Comment: s o b on exertion - NEUROLOGICAL Hx Neurological Disorder: No - HEENT Hx HEENT Problems: Yes Hx Cataracts: Yes (bilateral cat ext with iol) - RENAL Hx Chronic Kidney Disease: No - ENDOCRINE/METABOLIC Hx Endocrine Disorders: Yes Hx Diabetes Mellitus Type 2: Yes - HEMATOLOGICAL/ONCOLOGICAL Hx Blood Disorders: No - INTEGUMENTARY Hx Dermatological Problems: Yes Other/Comment: small ulcers both great toes - MUSCULOSKELETAL/RHEUMATOLOGICAL Hx Musculoskeletal Disorders: No Hx Falls: Yes - GASTROINTESTINAL Hx Gastrointestinal Disorders: No - GENITOURINARY/GYNECOLOGICAL Hx Genitourinary Disorders: No - PSYCHIATRIC Hx Substance Use: No - SURGICAL HISTORY Hx Coronary Artery Bypass Graft: Yes (8 yrs ago) - ANESTHESIA Hx Anesthesia: Yes Hx Anesthesia Reactions: No Hx Malignant Hyperthermia: No Meds Allergies/Adverse Reactions: Allergies Allergy/AdvReac Type Severity Reaction Status Date / Time No Known Allergies Allergy Verified 01/08/18 19:23 - Medications Medications: Current Medications Albuterol Sulfate (Albuterol 0.083% Inhal Lynne (2.5 Mg/3 Ml) Ud) 2.5 mg IH RQ6 SHINE Enoxaparin Sodium (Lovenox) 40 mg SC DAILY SHINE Propofol (Diprivan) 1,000 mg in 100 mls @ 3.103 mls/hr IV .Q24H PRN; Protocol; 5 MCG/KG/MIN PRN Reason: TITRATE PER MD ORDER Physical Exam - Constitutional Appears: No Acute Distress - Head Exam Head Exam: ATRAUMATIC, NORMOCEPHALIC - Eye Exam Pupil Exam: PERRL Additional comments: Left eye pterygium - Respiratory Exam Respiratory Exam: Clear to Auscultation Bilateral. absent: Rales, Rhonchi, Wheezes Additional comments: On mechanical ventilation - Cardiovascular Exam Cardiovascular Exam: REGULAR RHYTHM, +S1, +S2 - GI/Abdominal Exam GI & Abdominal Exam: Distended, Firm (right side and lower suprapubic), Normal Bowel Sounds - Extremities Exam Extremities exam: Positive for: pedal pulses present (pulses weak) Additional comments: Discoloration of the legs indicating stasis dermatitis - Neurological Exam Neurological exam: Altered Additional comments: Reflexes 3/4 bilateral upper extremities. Absent reflexes in the lower extremities. No plantar response noted. - Skin Skin Exam: Dry, Warm Results - Vital Signs Recent Vital Signs: Last Vital Signs Temp 96.3 F L 01/16/18 13:56 Pulse 87 01/16/18 14:10 Resp 22 01/16/18 14:10 BP 114/60 01/16/18 14:10 Pulse Ox 100 01/16/18 14:10 - Labs Result Diagrams: 01/16/18 12:27 01/16/18 12:27 Labs: Laboratory Results - last 24 hr 01/16/18 01/16/18 01/16/18 12:16 12:27 12:27 WBC 14.5 H D RBC 5.29 Hgb 16.4 D Hct 48.0 MCV 90.9 MCH 31.1 H MCHC 34.2 RDW 12.7 Plt Count 233 MPV 11.7 Neut % (Auto) 87.2 H Lymph % (Auto) 8.2 L [place] % (Auto) 4.4 Eos % (Auto) 0.0 Baso % (Auto) 0.2 Neut # (Auto) 12.6 H Lymph # (Auto) 1.2 [place] # (Auto) 0.6 Eos # (Auto) 0.0 Baso # (Auto) 0.0 Neutrophils % (Manual) 91 H Band Neutrophils % 1 Lymphocytes % (Manual) 7 L Monocytes % (Manual) 1 Platelet Estimate Normal RBC Morphology Normal PT 10.6 INR 0.9 APTT 33 Sodium Potassium Chloride Carbon Dioxide Anion Gap BUN Creatinine Est GFR ( Amer) Est GFR (Non-Af Amer) POC Glucose (mg/dL) 139 H Random Glucose Hemoglobin A1c Calcium Total Bilirubin AST ALT Alkaline Phosphatase Troponin I Total Protein Albumin Globulin Albumin/Globulin Ratio Triglycerides Cholesterol LDL Cholesterol Direct HDL Cholesterol Blood Type Antibody Screen 01/16/18 01/16/18 01/16/18 12:27 12:27 12:27 WBC RBC Hgb Hct MCV MCH MCHC RDW Plt Count MPV Neut % (Auto) Lymph % (Auto) [place] % (Auto) Eos % (Auto) Baso % (Auto) Neut # (Auto) Lymph # (Auto) [place] # (Auto) Eos # (Auto) Baso # (Auto) Neutrophils % (Manual) Band Neutrophils % Lymphocytes % (Manual) Monocytes % (Manual) Platelet Estimate RBC Morphology PT INR APTT Sodium 145 Potassium 4.3 Chloride 100 Carbon Dioxide 29 Anion Gap 20 BUN 43 H Creatinine 1.6 H Est GFR ( Amer) 52 Est GFR (Non-Af Amer) 43 POC Glucose (mg/dL) Random Glucose 124 H Hemoglobin A1c 9.2 H Calcium 9.9 Total Bilirubin 0.8 AST 32 ALT 39 Alkaline Phosphatase 78 Troponin I < 0.0120 Total Protein 7.9 Albumin 4.3 Globulin 3.6 Albumin/Globulin Ratio 1.2 Triglycerides 115 Cholesterol 186 LDL Cholesterol Direct 103 HDL Cholesterol 49 Blood Type O POSITIVE Antibody Screen Negative Assessment & Plan - Assessment and Plan (Free Text) Assessment: This is a 67 year old male with PMHx multiple CVA which are likely contributing to his new onset seizures. Plan: New onset Seizures Follow up EEG Keppra 1000 mg IV loading dose and then 500 mg IV Q12 thereafter Head CT with no acute pathologies; however significant disease seen in multiple areas of the brain due to multiple prior CVA. These prior insults are likely causing this new onset of seizures. Will continue to monitor clinical course Patient seen and discussed with Dr. Perez
[2018-01-16] MEDS ORDERED: levETIRAcetam 1,000 MG in Sodium Chloride 0.9% 100 ML IVPB ONE (16:00)
[2018-01-16] MEDS: (Novolin R) Insulin Human Regular 100 units/ml vial SC SCH (18:00)
[2018-01-16] MEDS: Albuterol 0.083% Inhal Sol (2.5 mg/3 mL) UD IH SCH (19:44)
--- NOTE | 2018-01-16 23:21 | CP.PCM.HP ---
History of Present Illness - History of Present Illness History of Present Illness: CC: Aletered mental status HPI: 67 M well known to me w/PMH CAD s/p CABG, multiple CVA, PVD, DM, HTN complaint with diet, medicationa and follow up who came to the ED after being found unresponsive by daughter pt had witnessed tonic clonic seizure associated with incontinence and LOC. Patient's last known at baseline was in the evening yesterday. Patient was found today in his bed unresponsive and was brought into the hospital. Patient was seizing and in respiratory distress; intubated in ED to protect airway. Per daughter, patient has never experienced seizures before, but the family is aware of patient's previous strokes. Patient has been given Ativan for his seizures. ROS unobtainable as the patient is intubated and sedated on Propofol.Pt was given IV keppra , sedated, not awake, not agiattaed, drowsy. Pt had no hisory of any head injuries recently PMHx: CAD s/p CABG, multiple CVA, PVD, DM, HTN PSHx: CABG 15 years ago Allergies: NKA Social: Per family, he lives alone. Non-smoker, occasional alcohol. No drug use. Family Hx: No history of seizure disorder in the family. Present on Admission - Present on Admission Any Indicators Present on Admission: Yes Review of Systems - Review of Systems Systems not reviewed;Unavailable: Acuity of Condition - Constitutional Constitutional: Fatigue, Lethargy, Malaise, Weakness - EENT Eyes: absent: As Per HPI, Blind Spots, Blurred Vision, Change in Vision, Decreased Night Vision, Diplopia, Discharge, Dry Eye, Exophthalmos, Floaters, Irritation, Itchy Eyes, Loss of Peripheral Vision, Pain, Photophobia, Requires Corrective Lenses, Sees Flashes, Spots in Vision, Tunnel Vision, Other Visual Disturbances, Loss of Vision, Other Nose/Mouth/Throat: absent: As Per HPI, Epistaxis, Nasal Congestion, Nasal Discharge, Nasal Obstruction, Nasal Trauma, Nose Pain, Post Nasal Drip, Sinus Pain, Sinus Pressure, Bleeding Gums, Change in Voice, Dental Pain, Dry Mouth, Dysphagia, Halitosis, Hoarsness, Lip Swelling, Mouth Lesions, Mouth Pain, Odynophagia, Sore Throat, Throat Swelling, Tongue Swelling, Facial Pain, Neck Pain, Neck Mass, Other - Cardiovascular Cardiovascular: absent: As Per HPI, Acrocyanosis, Chest Pain, Chest Pain at Rest , Chest Pain with Activity, Claudication, Diaphoresis, Dyspnea, Dyspnea on Exertion, Edema, Irregular Heart Rhythm, Pain Radiating to Arm/Neck/Jaw, Leg Edema, Leg Ulcers, Lightheadedness, Orthopnea, Palpitations, Paroxysmal Nocturnal Dyspnea, Pedal Edema, Radiating Pain, Rapid Heart Rate, Slow Heart Rate, Syncope, Other - Respiratory Respiratory: absent: As Per HPI, Cough, Dyspnea, Hemoptysis, Dyspnea on Exertion , Wheezing, Snoring, Stridor, Pain on Inspiration, Chest Congestion, Excessive Mucous Production, Change in Mucous Color, Pain with Coughing, Other - Gastrointestinal Gastrointestinal: absent: As Per HPI, Abdominal Pain, Belching, Bloating, Change in Bowel Habits, Change in Stool Character, Coffee Ground Emesis, Constipation, Cramping, Diarrhea, Dyspepsia, Dysphagia, Early Satiety, Excessive Flatus, Fecal Incontinence, Heartburn, Hematemesis, Hematochezia, Loose Stools, Melena, Nausea, Odynophagia, Temesmus, Vomiting, Other - Neurological Neurological: Abnormal Movements, Confusion, Convulsions, Lack of Coordination Past Patient History - Past Medical History & Family History Past Medical History?: Yes - Past Social History Smoking Status: Never Smoked - CARDIAC Hx Hypercholesterolemia: Yes Hx Hypertension: Yes - PULMONARY Hx Respiratory Disorders: Yes Other/Comment: s o b on exertion - NEUROLOGICAL Hx Neurological Disorder: No - HEENT Hx HEENT Problems: Yes Hx Cataracts: Yes (bilateral cat ext with iol) - RENAL Hx Chronic Kidney Disease: No - ENDOCRINE/METABOLIC Hx Endocrine Disorders: Yes Hx Diabetes Mellitus Type 2: Yes - HEMATOLOGICAL/ONCOLOGICAL Hx Blood Disorders: No - INTEGUMENTARY Hx Dermatological Problems: Yes Other/Comment: small ulcers both great toes - MUSCULOSKELETAL/RHEUMATOLOGICAL Hx Musculoskeletal Disorders: No Hx Falls: Yes - GASTROINTESTINAL Hx Gastrointestinal Disorders: No - GENITOURINARY/GYNECOLOGICAL Hx Genitourinary Disorders: No - PSYCHIATRIC Hx Substance Use: No - SURGICAL HISTORY Hx Coronary Artery Bypass Graft: Yes (8 yrs ago) - ANESTHESIA Hx Anesthesia: Yes Hx Anesthesia Reactions: No Hx Malignant Hyperthermia: No Meds Allergies/Adverse Reactions: Allergies Allergy/AdvReac Type Severity Reaction Status Date / Time No Known Allergies Allergy Verified 01/08/18 19:23 Physical Exam - Constitutional Appears: Chronically Ill Additional comments: pt is sedated, withdraws from pain - Head Exam Head Exam: ATRAUMATIC, NORMAL INSPECTION, NORMOCEPHALIC - Eye Exam Eye Exam: EOMI, Normal appearance, PERRL Pupil Exam: NORMAL ACCOMODATION, PERRL - ENT Exam ENT Exam: Mucous Membranes Moist, Normal Exam - Neck Exam Neck exam: Positive for: Normal Inspection - Respiratory Exam Respiratory Exam: Decreased Breath Sounds, Rhonchi Additional comments: intubated - Cardiovascular Exam Cardiovascular Exam: REGULAR RHYTHM - GI/Abdominal Exam GI & Abdominal Exam: Normal Bowel Sounds, Soft. absent: Tenderness - Rectal Exam Rectal Exam: Deferred Results - Vital Signs Recent Vital Signs: Last Vital Signs Temp 97.6 F 01/16/18 19:00 Pulse 73 01/16/18 19:52 Resp 19 01/16/18 19:00 BP 138/77 01/16/18 19:00 Pulse Ox 99 01/16/18 19:00 - Labs Result Diagrams: 01/17/18 06:30 01/17/18 06:30 Labs: Laboratory Results - last 24 hr 01/16/18 01/16/18 01/16/18 12:16 12:27 12:27 WBC 14.5 H D RBC 5.29 Hgb 16.4 D Hct 48.0 MCV 90.9 MCH 31.1 H MCHC 34.2 RDW 12.7 Plt Count 233 MPV 11.7 Neut % (Auto) 87.2 H Lymph % (Auto) 8.2 L [place] % (Auto) 4.4 Eos % (Auto) 0.0 Baso % (Auto) 0.2 Neut # (Auto) 12.6 H Lymph # (Auto) 1.2 [place] # (Auto) 0.6 Eos # (Auto) 0.0 Baso # (Auto) 0.0 Neutrophils % (Manual) 91 H Band Neutrophils % 1 Lymphocytes % (Manual) 7 L Monocytes % (Manual) 1 Platelet Estimate Normal RBC Morphology Normal PT 10.6 INR 0.9 APTT 33 Sodium Potassium Chloride Carbon Dioxide Anion Gap BUN Creatinine Est GFR ( Amer) Est GFR (Non-Af Amer) POC Glucose (mg/dL) 139 H Random Glucose Hemoglobin A1c Calcium Total Bilirubin AST ALT Alkaline Phosphatase Troponin I Total Protein Albumin Globulin Albumin/Globulin Ratio Triglycerides Cholesterol LDL Cholesterol Direct HDL Cholesterol Blood Type Antibody Screen 01/16/18 01/16/18 01/16/18 12:27 12:27 12:27 WBC RBC Hgb Hct MCV MCH MCHC RDW Plt Count MPV Neut % (Auto) Lymph % (Auto) [place] % (Auto) Eos % (Auto) Baso % (Auto) Neut # (Auto) Lymph # (Auto) [place] # (Auto) Eos # (Auto) Baso # (Auto) Neutrophils % (Manual) Band Neutrophils % Lymphocytes % (Manual) Monocytes % (Manual) Platelet Estimate RBC Morphology PT INR APTT Sodium 145 Potassium 4.3 Chloride 100 Carbon Dioxide 29 Anion Gap 20 BUN 43 H Creatinine 1.6 H Est GFR ( Amer) 52 Est GFR (Non-Af Amer) 43 POC Glucose (mg/dL) Random Glucose 124 H Hemoglobin A1c 9.2 H Calcium 9.9 Total Bilirubin 0.8 AST 32 ALT 39 Alkaline Phosphatase 78 Troponin I < 0.0120 Total Protein 7.9 Albumin 4.3 Globulin 3.6 Albumin/Globulin Ratio 1.2 Triglycerides 115 Cholesterol 186 LDL Cholesterol Direct 103 HDL Cholesterol 49 Blood Type O POSITIVE Antibody Screen Negative 01/16/18 18:26 WBC RBC Hgb Hct MCV MCH MCHC RDW Plt Count MPV Neut % (Auto) Lymph % (Auto) [place] % (Auto) Eos % (Auto) Baso % (Auto) Neut # (Auto) Lymph # (Auto) [place] # (Auto) Eos # (Auto) Baso # (Auto) Neutrophils % (Manual) Band Neutrophils % Lymphocytes % (Manual) Monocytes % (Manual) Platelet Estimate RBC Morphology PT INR APTT Sodium Potassium Chloride Carbon Dioxide Anion Gap BUN Creatinine Est GFR ( Amer) Est GFR (Non-Af Amer) POC Glucose (mg/dL) 127 H Random Glucose Hemoglobin A1c Calcium Total Bilirubin AST ALT Alkaline Phosphatase Troponin I Total Protein Albumin Globulin Albumin/Globulin Ratio Triglycerides Cholesterol LDL Cholesterol Direct HDL Cholesterol Blood Type Antibody Screen Assessment & Plan (1) Status epilepticus Assessment and Plan: on IV keppra Status: Acute (2) COPD (chronic obstructive pulmonary disease) Status: Acute (3) Congestive heart failure Status: Acute (4) Diabetes Status: Acute
[2018-01-17] MEDS: Albuterol 0.083% Inhal Sol (2.5 mg/3 mL) UD IH SCH ×4 (01:31→19:58)
[2018-01-17] MEDS: levETIRAcetam 500 MG in Sodium Chloride 0.9% 100 ML IVPB SCH ×2 (04:00→15:04)
[2018-01-17 05:44] LABS: ARTERIAL BLOOD GAS O2 SAT 99.4 % (95-98); ARTERIAL BLOOD GAS PCO2 40 mm/Hg (35-45); ARTERIAL BLOOD GAS PH 7.38 (7.35-7.45); ARTERIAL BLOOD GAS PO2 207 mm/Hg (80-100); ARTERIAL BLOOD GAS TCO2 24.9 mmol/L (22-28)
[2018-01-17 06:41] LABS: BASO % 0.3 % (0.0-2.0); LYMPH # 1.1 K/uL (1.0-4.3); LYMPH % 10.9 % (20.0-40.0); MEAN CELL VOLUME 92.2 fL (80.0-94.0); MEAN CORPUSCULAR HEMOGLOBIN 31.1 pg (27.0-31.0); MEAN CORPUSCULAR HGB CONC 33.8 g/dL (33.0-37.0); MONO # 0.8 K/uL (0.0-0.8); MONO % 8.3 % (0.0-10.0); NEUT % 80.5 % (50.0-75.0); NRBC % 0.1 % (0.0-2.0); RBC 4.39 Mil/uL (4.40-5.90); RED CELL DISTRIBUTION WIDTH 13.1 % (11.5-14.5)
[2018-01-17 07:02] LABS: ALB/GLOB RATIO 1.2 (1.0-2.1); ALBUMIN 3.6 g/dL (3.5-5.0); CALCIUM 8.5 mg/dl (8.6-10.4)
[2018-01-17] MEDS: (Novolin R) Insulin Human Regular 100 units/ml vial SC SCH ×4 (07:20→17:48)
[2018-01-17] MEDS ORDERED: Sodium Chloride 0.9% 1,000 ML IV SCH (07:30)
[2018-01-17 07:41] LABS: HEMOGLOBIN 13.7 g/dL (12.0-18.0)
--- NOTE | 2018-01-17 07:46 | CARD ---
APPROVED REPORT EKG Measurement Heart [id number] [place] 140P22 [id number] <Conclusion> Sinus rhythm with premature atrial complexes Possible Inferior infarct, age undetermined Prolonged QT Abnormal ECG
--- NOTE | 2018-01-17 08:41 | RAD ---
HISTORY: intubated COMPARISON: 01/16/2018 FINDINGS: The endotracheal tube terminates 3 cm proximal to the rianna. LUNGS: There is worsening airspace disease in the right mid lung and left lower lobe. There is also worsening pulmonary venous congestion. PLEURA: Suspect small pleural effusions, no pneumothorax apparent. CARDIOVASCULAR: The cardiomediastinal silhouette is stable. Status post CABG P OSSEOUS STRUCTURES: No significant abnormalities. VISUALIZED UPPER ABDOMEN: Normal. OTHER FINDINGS: None. IMPRESSION: Worsening right middle lobe and left lower lobe pneumonia. Persistent pleural effusions. Endotracheal tube terminates 3 cm proximal to the rianna.
[2018-01-17] MEDS ORDERED: Enoxaparin 40 mg Syringe SC SCH (10:00)
[2018-01-17] MEDS: Sodium Chloride 0.9% 1,000 ML IV SCH (11:42)
--- NOTE | 2018-01-17 12:27 | CP.CCUPN ---
<Navin Rodriguez - Last Filed: 01/17/18 15:28> CCU Subjective - Physician Review Subjective (Free Text): 01/17/18 12:23 Patient seen and examined at bedside EEG today Diprivan stopped at midnight 01/17/18 15:28 Fever 101 Su culture CCU Objective - Vital Signs / Intake & Output Vital Signs (Last 4 hours): Vital Signs Pulse Resp BP Pulse Ox 01/17/18 11:30 87 17 100 01/17/18 11:24 84 16 120/57 L 98 01/17/18 11:20 87 14 100 01/17/18 11:10 81 16 96 01/17/18 11:00 81 16 97 01/17/18 10:50 80 16 97 01/17/18 10:40 80 16 97 01/17/18 10:30 78 16 98 01/17/18 10:23 83 19 102/63 98 01/17/18 10:21 114/57 L 01/17/18 10:20 82 18 98 01/17/18 10:10 82 18 98 01/17/18 10:00 81 19 97 01/17/18 09:50 81 20 98 01/17/18 09:40 83 18 97 01/17/18 09:30 75 18 97 01/17/18 09:23 80 18 114/57 L 97 01/17/18 09:20 82 17 97 01/17/18 09:10 86 18 97 01/17/18 09:00 89 17 97 01/17/18 08:50 94 H 19 98 01/17/18 08:40 90 20 97 01/17/18 08:30 86 17 97 01/17/18 08:23 87 18 126/60 96 Intake and Output (Last 8hrs): Intake & Output 01/16/18 01/17/18 01/17/18 22:59 06:59 14:59 Intake Total 9.3 103.1 540 Output Total 145 330 440 Balance -135.7 -226.9 100 Weight 227 lb 1.218 oz 230 lb Intake: Intake, IV Amount 9.3 103.1 270 Left Antecubital 9.3 103.1 250 Left Hand 10 Right Antecubital 10 Tube Feeding 160 Other 110 Output: Urine 145 330 440 Urethral (Stanley) 145 330 440 Other: Voiding Method Indwelling Catheter # Bowel Movements 0 0 - Physical Exam Physical Exam Limitations: Positive for: Other (intubated) Head: Positive for: Atraumatic, Normocephalic Pupils: Positive for: Other (corneal reflex) Neck: Positive for: Normal Range of Motion Respiratory/Chest: Positive for: Clear to Auscultation Cardiovascular: Positive for: Regular Rate and Rhythm Abdomen: Positive for: Normal Bowel Sounds. Negative for: Tenderness, Distention, Peritoneal Signs Neurological: Positive for: Other (gag and corneal, no response to pain) - Medications Active Medications: Active Medications Generic Name Dose Route Start Last Admin Trade Name Freq PRN Reason Stop Dose Admin Albuterol Sulfate 2.5 mg 01/16/18 14:45 01/17/18 07:52 Albuterol 0.083% Inhal Lynne (2.5 Mg/3 Ml) Ud IH 2.5 mg RQ6 SHINE Administration Aspirin 81 mg 01/17/18 10:00 01/17/18 10:20 Aspirin Chewable PO 81 mg DAILY SHINE Administration Carvedilol 25 mg 01/16/18 18:00 01/17/18 10:21 Coreg PO 25 mg BID SHINE Administration Docusate Sodium 100 mg 01/16/18 18:00 01/17/18 10:21 Colace PO 100 mg BID SHINE Administration Enoxaparin Sodium 40 mg 01/17/18 10:00 01/17/18 10:21 Lovenox SC 40 mg DAILY SHINE Administration Hydralazine HCl 50 mg 01/16/18 22:00 01/17/18 06:00 Apresoline PO Not Given Q8 SHINE Levetiracetam 500 mg/ Sodium 105 mls @ 420 mls/hr 01/17/18 04:00 01/17/18 04: 00 Chloride IVPB 420 mls/hr Q12H SHINE Administration Sodium Chloride 1,000 mls @ 75 mls/hr 01/17/18 10:35 01/17/18 11:42 Sodium Chloride 0.9% IV 75 mls/hr .[id number] SHINE Administration Azithromycin 500 mg/ Sodium 250 mls @ 250 mls/hr 01/17/18 12:30 Chloride IVPB DAILY SHINE Ceftriaxone Sodium 1 gm/ 100 mls @ 100 mls/hr 01/18/18 10:00 Sodium Chloride IVPB DAILY [facility] Insulin Human Regular 0 unit 01/16/18 18:00 01/17/18 07:20 Novolin R SC 2 unit Q6 SHINE Administration Protocol Lisinopril 20 mg 01/17/18 10:00 01/17/18 10:33 Zestril PO 20 mg DAILY SHINE Administration Pantoprazole Sodium 40 mg 01/16/18 17:15 01/17/18 10:22 Protonix Inj IVP 40 mg DAILY SHINE Administration Rosuvastatin Calcium 10 mg 01/16/18 22:00 01/16/18 22:00 Crestor PO 10 mg HS SHINE Administration - Patient Studies Lab Studies: Lab Studies 01/17/18 01/17/18 01/17/18 Range/Units 11:27 06:30 06:30 WBC 10.0 (4.8-10.8) K/uL RBC 4.39 L (4.40-5.90) Mil/uL Hgb 13.7 D (12.0-18.0) g/dL Hct 40.5 (35.0-51.0) % MCV 92.2 (80.0-94.0) fL MCH 31.1 H (27.0-31.0) pg MCHC 33.8 (33.0-37.0) g/dL RDW 13.1 (11.5-14.5) % Plt Count 178 (130-400) K/uL MPV 12.0 H (7.2-11.7) fL Neut % (Auto) 80.5 H (50.0-75.0) % Lymph % (Auto) 10.9 L (20.0-40.0) % [place] % (Auto) 8.3 (0.0-10.0) % Eos % (Auto) 0.0 (0.0-4.0) % Baso % (Auto) 0.3 (0.0-2.0) % Neut # (Auto) 8.0 H (1.8-7.0) K/uL Lymph # (Auto) 1.1 (1.0-4.3) K/uL [place] # (Auto) 0.8 (0.0-0.8) K/uL Eos # (Auto) 0.0 (0.0-0.7) K/uL Baso # (Auto) 0.0 (0.0-0.2) K/uL Neutrophils % (Manual) (50-75) % Band Neutrophils % (0-2) % Lymphocytes % (Manual) (20-40) % Monocytes % (Manual) (0-10) % Platelet Estimate (NORMAL) RBC Morphology PT (9.7-12.2) SECONDS INR APTT (21-34) SECONDS Puncture Site pCO2 (35-45) mm/Hg pO2 (80-100) mm/Hg HCO3 (21-28) mmol/L ABG pH (7.35-7.45) ABG Total CO2 (22-28) mmol/L ABG O2 Saturation (95-98) % ABG Base Excess (-2.0-3.0) mmol/L Jamey Test ABG Potassium (3.6-5.2) mmol/L A-a O2 Difference mm/Hg Respiratory Index Glucose (75-110) mg/dl Lactate (0.7-2.1) mmol/L Vent Mode Mechanical Rate FiO2 % Tidal Volume PEEP Sodium 140 (132-148) mmol/L Potassium 4.7 (3.6-5.2) mmol/L Chloride 105 (98-107) mmol/L Carbon Dioxide 22 (22-30) mmol/L Anion Gap 18 (10-20) BUN 50 H (9-20) mg/dL Creatinine 1.9 H (0.8-1.5) mg/dL Est GFR ( Amer) 43 Est GFR (Non-Af Amer) 36 POC Glucose (mg/dL) 220 H (65-110) mg/dL Random Glucose 150 H (75-110) mg/dL Hemoglobin A1c (4.2-6.5) % Calcium 8.5 L (8.6-10.4) mg/dl Phosphorus 5.5 H (2.5-4.5) mg/dL Magnesium 2.3 (1.6-2.3) mg/dL Total Bilirubin 1.5 H (0.2-1.3) mg/dL AST 46 (17-59) U/L ALT 22 (21-72) U/L Alkaline Phosphatase 50 (38-126) U/L Troponin I (0.00-0.120) ng/mL Total Protein 6.6 (6.3-8.3) g/dL Albumin 3.6 (3.5-5.0) g/dL Globulin 2.9 (2.2-3.9) gm/dL Albumin/Globulin Ratio 1.2 (1.0-2.1) Triglycerides (0-149) mg/dL Cholesterol (0-199) mg/dL LDL Cholesterol Direct (0-129) mg/dL HDL Cholesterol (30-70) mg/dL Arterial Blood Potassium (3.6-5.2) mmol/L Blood Type Antibody Screen 01/17/18 01/16/18 01/16/18 Range/Units 05:15 23:38 18:26 WBC (4.8-10.8) K/uL RBC (4.40-5.90) Mil/uL Hgb (12.0-18.0) g/dL Hct (35.0-51.0) % MCV (80.0-94.0) fL MCH (27.0-31.0) pg MCHC (33.0-37.0) g/dL RDW (11.5-14.5) % Plt Count (130-400) K/uL MPV (7.2-11.7) fL Neut % (Auto) (50.0-75.0) % Lymph % (Auto) (20.0-40.0) % [place] % (Auto) (0.0-10.0) % Eos % (Auto) (0.0-4.0) % Baso % (Auto) (0.0-2.0) % Neut # (Auto) (1.8-7.0) K/uL Lymph # (Auto) (1.0-4.3) K/uL [place] # (Auto) (0.0-0.8) K/uL Eos # (Auto) (0.0-0.7) K/uL Baso # (Auto) (0.0-0.2) K/uL Neutrophils % (Manual) (50-75) % Band Neutrophils % (0-2) % Lymphocytes % (Manual) (20-40) % Monocytes % (Manual) (0-10) % Platelet Estimate (NORMAL) RBC Morphology PT (9.7-12.2) SECONDS INR APTT (21-34) SECONDS Puncture Site Rb pCO2 40 (35-45) mm/Hg pO2 207 H (80-100) mm/Hg HCO3 24.0 (21-28) mmol/L ABG pH 7.38 (7.35-7.45) ABG Total CO2 24.9 (22-28) mmol/L ABG O2 Saturation 99.4 H (95-98) % ABG Base Excess -1.3 (-2.0-3.0) mmol/L Jamey Test Na ABG Potassium 3.6 (3.6-5.2) mmol/L A-a O2 Difference 456.0 mm/Hg Respiratory Index 2.2 Glucose 192 H (75-110) mg/dl Lactate 1.0 (0.7-2.1) mmol/L Vent Mode Prvc Mechanical Rate 16 FiO2 100.0 % Tidal Volume 500 PEEP 5 Sodium 140.0 (132-148) mmol/L Potassium (3.6-5.2) mmol/L Chloride 106.0 (98-107) mmol/L Carbon Dioxide (22-30) mmol/L Anion Gap (10-20) BUN (9-20) mg/dL Creatinine (0.8-1.5) mg/dL Est GFR ( Amer) Est GFR (Non-Af Amer) POC Glucose (mg/dL) 128 H 127 H (65-110) mg/dL Random Glucose (75-110) mg/dL Hemoglobin A1c (4.2-6.5) % Calcium (8.6-10.4) mg/dl Phosphorus (2.5-4.5) mg/dL Magnesium (1.6-2.3) mg/dL Total Bilirubin (0.2-1.3) mg/dL AST (17-59) U/L ALT (21-72) U/L Alkaline Phosphatase (38-126) U/L Troponin I (0.00-0.120) ng/mL Total Protein (6.3-8.3) g/dL Albumin (3.5-5.0) g/dL Globulin (2.2-3.9) gm/dL Albumin/Globulin Ratio (1.0-2.1) Triglycerides (0-149) mg/dL Cholesterol (0-199) mg/dL LDL Cholesterol Direct (0-129) mg/dL HDL Cholesterol (30-70) mg/dL Arterial Blood Potassium 3.6 (3.6-5.2) mmol/L Blood Type Antibody Screen 02/27/18 02/27/18 02/27/18 Range/Units 12:27 12:27 12:27 WBC (4.8-10.8) K/uL RBC (4.40-5.90) Mil/uL Hgb (12.0-18.0) g/dL Hct (35.0-51.0) % MCV (80.0-94.0) fL MCH (27.0-31.0) pg MCHC (33.0-37.0) g/dL RDW (11.5-14.5) % Plt Count (130-400) K/uL MPV (7.2-11.7) fL Neut % (Auto) (50.0-75.0) % Lymph % (Auto) (20.0-40.0) % [place] % (Auto) (0.0-10.0) % Eos % (Auto) (0.0-4.0) % Baso % (Auto) (0.0-2.0) % Neut # (Auto) (1.8-7.0) K/uL Lymph # (Auto) (1.0-4.3) K/uL [place] # (Auto) (0.0-0.8) K/uL Eos # (Auto) (0.0-0.7) K/uL Baso # (Auto) (0.0-0.2) K/uL Neutrophils % (Manual) (50-75) % Band Neutrophils % (0-2) % Lymphocytes % (Manual) (20-40) % Monocytes % (Manual) (0-10) % Platelet Estimate (NORMAL) RBC Morphology PT (9.7-12.2) SECONDS INR APTT (21-34) SECONDS Puncture Site pCO2 (35-45) mm/Hg pO2 (80-100) mm/Hg HCO3 (21-28) mmol/L ABG pH (7.35-7.45) ABG Total CO2 (22-28) mmol/L ABG O2 Saturation (95-98) % ABG Base Excess (-2.0-3.0) mmol/L Jamey Test ABG Potassium (3.6-5.2) mmol/L A-a O2 Difference mm/Hg Respiratory Index Glucose (75-110) mg/dl Lactate (0.7-2.1) mmol/L Vent Mode Mechanical Rate FiO2 % Tidal Volume PEEP Sodium 145 (132-148) mmol/L Potassium 4.3 (3.6-5.2) mmol/L Chloride 100 (98-107) mmol/L Carbon Dioxide 29 (22-30) mmol/L Anion Gap 20 (10-20) BUN 43 H (9-20) mg/dL Creatinine 1.6 H (0.8-1.5) mg/dL Est GFR ( Amer) 52 Est GFR (Non-Af Amer) 43 POC Glucose (mg/dL) (65-110) mg/dL Random Glucose 124 H (75-110) mg/dL Hemoglobin A1c 9.2 H (4.2-6.5) % Calcium 9.9 (8.6-10.4) mg/dl Phosphorus (2.5-4.5) mg/dL Magnesium (1.6-2.3) mg/dL Total Bilirubin 0.8 (0.2-1.3) mg/dL AST 32 (17-59) U/L ALT 39 (21-72) U/L Alkaline Phosphatase 78 (38-126) U/L Troponin I < 0.0120 (0.00-0.120) ng/mL Total Protein 7.9 (6.3-8.3) g/dL Albumin 4.3 (3.5-5.0) g/dL Globulin 3.6 (2.2-3.9) gm/dL Albumin/Globulin Ratio 1.2 (1.0-2.1) Triglycerides 115 (0-149) mg/dL Cholesterol 186 (0-199) mg/dL LDL Cholesterol Direct 103 (0-129) mg/dL HDL Cholesterol 49 (30-70) mg/dL Arterial Blood Potassium (3.6-5.2) mmol/L Blood Type O POSITIVE Antibody Screen Negative 01/16/18 01/16/18 01/16/18 Range/Units 12:27 12:27 12:16 WBC 14.5 H D (4.8-10.8) K/uL RBC 5.29 (4.40-5.90) Mil/uL Hgb 16.4 D (12.0-18.0) g/dL Hct 48.0 (35.0-51.0) % MCV 90.9 (80.0-94.0) fL MCH 31.1 H (27.0-31.0) pg MCHC 34.2 (33.0-37.0) g/dL RDW 12.7 (11.5-14.5) % Plt Count 233 (130-400) K/uL MPV 11.7 (7.2-11.7) fL Neut % (Auto) 87.2 H (50.0-75.0) % Lymph % (Auto) 8.2 L (20.0-40.0) % [place] % (Auto) 4.4 (0.0-10.0) % Eos % (Auto) 0.0 (0.0-4.0) % Baso % (Auto) 0.2 (0.0-2.0) % Neut # (Auto) 12.6 H (1.8-7.0) K/uL Lymph # (Auto) 1.2 (1.0-4.3) K/uL [place] # (Auto) 0.6 (0.0-0.8) K/uL Eos # (Auto) 0.0 (0.0-0.7) K/uL Baso # (Auto) 0.0 (0.0-0.2) K/uL Neutrophils % (Manual) 91 H (50-75) % Band Neutrophils % 1 (0-2) % Lymphocytes % (Manual) 7 L (20-40) % Monocytes % (Manual) 1 (0-10) % Platelet Estimate Normal (NORMAL) RBC Morphology Normal PT 10.6 (9.7-12.2) SECONDS INR 0.9 APTT 33 (21-34) SECONDS Puncture Site pCO2 (35-45) mm/Hg pO2 (80-100) mm/Hg HCO3 (21-28) mmol/L ABG pH (7.35-7.45) ABG Total CO2 (22-28) mmol/L ABG O2 Saturation (95-98) % ABG Base Excess (-2.0-3.0) mmol/L Jamey Test ABG Potassium (3.6-5.2) mmol/L A-a O2 Difference mm/Hg Respiratory Index Glucose (75-110) mg/dl Lactate (0.7-2.1) mmol/L Vent Mode Mechanical Rate FiO2 % Tidal Volume PEEP Sodium (132-148) mmol/L Potassium (3.6-5.2) mmol/L Chloride (98-107) mmol/L Carbon Dioxide (22-30) mmol/L Anion Gap (10-20) BUN (9-20) mg/dL Creatinine (0.8-1.5) mg/dL Est GFR ( Amer) Est GFR (Non-Af Amer) POC Glucose (mg/dL) 139 H (65-110) mg/dL Random Glucose (75-110) mg/dL Hemoglobin A1c (4.2-6.5) % Calcium (8.6-10.4) mg/dl Phosphorus (2.5-4.5) mg/dL Magnesium (1.6-2.3) mg/dL Total Bilirubin (0.2-1.3) mg/dL AST (17-59) U/L ALT (21-72) U/L Alkaline Phosphatase (38-126) U/L Troponin I (0.00-0.120) ng/mL Total Protein (6.3-8.3) g/dL Albumin (3.5-5.0) g/dL Globulin (2.2-3.9) gm/dL Albumin/Globulin Ratio (1.0-2.1) Triglycerides (0-149) mg/dL Cholesterol (0-199) mg/dL LDL Cholesterol Direct (0-129) mg/dL HDL Cholesterol (30-70) mg/dL Arterial Blood Potassium (3.6-5.2) mmol/L Blood Type Antibody Screen Laboratory Results - last 24 hr 01/16/18 01/16/18 01/16/18 12:16 12:27 12:27 WBC 14.5 H D RBC 5.29 Hgb 16.4 D Hct 48.0 MCV 90.9 MCH 31.1 H MCHC 34.2 RDW 12.7 Plt Count 233 MPV 11.7 Neut % (Auto) 87.2 H Lymph % (Auto) 8.2 L [place] % (Auto) 4.4 Eos % (Auto) 0.0 Baso % (Auto) 0.2 Neut # (Auto) 12.6 H Lymph # (Auto) 1.2 [place] # (Auto) 0.6 Eos # (Auto) 0.0 Baso # (Auto) 0.0 Neutrophils % (Manual) 91 H Band Neutrophils % 1 Lymphocytes % (Manual) 7 L Monocytes % (Manual) 1 Platelet Estimate Normal RBC Morphology Normal PT 10.6 INR 0.9 APTT 33 Puncture Site pCO2 pO2 HCO3 ABG pH ABG Total CO2 ABG O2 Saturation ABG Base Excess Jamey Test ABG Potassium A-a O2 Difference Respiratory Index Glucose Lactate Vent Mode Mechanical Rate FiO2 Tidal Volume PEEP Sodium Potassium Chloride Carbon Dioxide Anion Gap BUN Creatinine Est GFR ( Amer) Est GFR (Non-Af Amer) POC Glucose (mg/dL) 139 H Random Glucose Hemoglobin A1c Calcium Phosphorus Magnesium Total Bilirubin AST ALT Alkaline Phosphatase Troponin I Total Protein Albumin Globulin Albumin/Globulin Ratio Triglycerides Cholesterol LDL Cholesterol Direct HDL Cholesterol Arterial Blood Potassium Blood Type Antibody Screen 01/16/18 01/16/18 01/16/18 12:27 12:27 12:27 WBC RBC Hgb Hct MCV MCH MCHC RDW Plt Count MPV Neut % (Auto) Lymph % (Auto) [place] % (Auto) Eos % (Auto) Baso % (Auto) Neut # (Auto) Lymph # (Auto) [place] # (Auto) Eos # (Auto) Baso # (Auto) Neutrophils % (Manual) Band Neutrophils % Lymphocytes % (Manual) Monocytes % (Manual) Platelet Estimate RBC Morphology PT INR APTT Puncture Site pCO2 pO2 HCO3 ABG pH ABG Total CO2 ABG O2 Saturation ABG Base Excess Jamey Test ABG Potassium A-a O2 Difference Respiratory Index Glucose Lactate Vent Mode Mechanical Rate FiO2 Tidal Volume PEEP Sodium 145 Potassium 4.3 Chloride 100 Carbon Dioxide 29 Anion Gap 20 BUN 43 H Creatinine 1.6 H Est GFR ( Amer) 52 Est GFR (Non-Af Amer) 43 POC Glucose (mg/dL) Random Glucose 124 H Hemoglobin A1c 9.2 H Calcium 9.9 Phosphorus Magnesium Total Bilirubin 0.8 AST 32 ALT 39 Alkaline Phosphatase 78 Troponin I < 0.0120 Total Protein 7.9 Albumin 4.3 Globulin 3.6 Albumin/Globulin Ratio 1.2 Triglycerides 115 Cholesterol 186 LDL Cholesterol Direct 103 HDL Cholesterol 49 Arterial Blood Potassium Blood Type O POSITIVE Antibody Screen Negative 01/16/18 01/16/18 01/17/18 18:26 23:38 05:15 WBC RBC Hgb Hct MCV MCH MCHC RDW Plt Count MPV Neut % (Auto) Lymph % (Auto) [place] % (Auto) Eos % (Auto) Baso % (Auto) Neut # (Auto) Lymph # (Auto) [place] # (Auto) Eos # (Auto) Baso # (Auto) Neutrophils % (Manual) Band Neutrophils % Lymphocytes % (Manual) Monocytes % (Manual) Platelet Estimate RBC Morphology PT INR APTT Puncture Site Rb pCO2 40 pO2 207 H HCO3 24.0 ABG pH 7.38 ABG Total CO2 24.9 ABG O2 Saturation 99.4 H ABG Base Excess -1.3 Jamey Test Na ABG Potassium 3.6 A-a O2 Difference 456.0 Respiratory Index 2.2 Glucose 192 H Lactate 1.0 Vent Mode Prvc Mechanical Rate 16 FiO2 100.0 Tidal Volume 500 PEEP 5 Sodium 140.0 Potassium Chloride 106.0 Carbon Dioxide Anion Gap BUN Creatinine Est GFR ( Amer) Est GFR (Non-Af Amer) POC Glucose (mg/dL) 127 H 128 H Random Glucose Hemoglobin A1c Calcium Phosphorus Magnesium Total Bilirubin AST ALT Alkaline Phosphatase Troponin I Total Protein Albumin Globulin Albumin/Globulin Ratio Triglycerides Cholesterol LDL Cholesterol Direct HDL Cholesterol Arterial Blood Potassium 3.6 Blood Type Antibody Screen 01/17/18 01/17/18 01/17/18 06:30 06:30 11:27 WBC 10.0 RBC 4.39 L Hgb 13.7 D Hct 40.5 MCV 92.2 MCH 31.1 H MCHC 33.8 RDW 13.1 Plt Count 178 MPV 12.0 H Neut % (Auto) 80.5 H Lymph % (Auto) 10.9 L [place] % (Auto) 8.3 Eos % (Auto) 0.0 Baso % (Auto) 0.3 Neut # (Auto) 8.0 H Lymph # (Auto) 1.1 [place] # (Auto) 0.8 Eos # (Auto) 0.0 Baso # (Auto) 0.0 Neutrophils % (Manual) Band Neutrophils % Lymphocytes % (Manual) Monocytes % (Manual) Platelet Estimate RBC Morphology PT INR APTT Puncture Site pCO2 pO2 HCO3 ABG pH ABG Total CO2 ABG O2 Saturation ABG Base Excess Jamey Test ABG Potassium A-a O2 Difference Respiratory Index Glucose Lactate Vent Mode Mechanical Rate FiO2 Tidal Volume PEEP Sodium 140 Potassium 4.7 Chloride 105 Carbon Dioxide 22 Anion Gap 18 BUN 50 H Creatinine 1.9 H Est GFR ( Amer) 43 Est GFR (Non-Af Amer) 36 POC Glucose (mg/dL) 220 H Random Glucose 150 H Hemoglobin A1c Calcium 8.5 L Phosphorus 5.5 H Magnesium 2.3 Total Bilirubin 1.5 H AST 46 ALT 22 Alkaline Phosphatase 50 Troponin I Total Protein 6.6 Albumin 3.6 Globulin 2.9 Albumin/Globulin Ratio 1.2 Triglycerides Cholesterol LDL Cholesterol Direct HDL Cholesterol Arterial Blood Potassium Blood Type Antibody Screen EKG/Cardiology Studies: Cardiology / EKG Studies 01/16/18 12:19 ELECTROCARDIOGRAM Stat Comment: Mode Of Transportation: BED Reason For Exam: code stroke 01/16/18 14:04 ELECTROCARDIOGRAM Stat Comment: Mode Of Transportation: BED Reason For Exam: code stroke Fingerstick Blood Sugar Results: 152 Assessment/Plan - Assessment and Plan (Free Text) Assessment: 67M W/ likely new onset seizures and CAP Plan: Neuro: Likely new onset seizures. Dr. Perez on consult, EEG follow up. Keppra BID, No sedation Cards: No acute issues, hx of CABG, PVD and Multiple CVA, HTN, will continue home medications Pulm: patient was actively seizing, so intubated to protect airway, requiring 40 % FiO2 Renal: Cr rising to 1.9 today. Started light hydration NS @ 75. Changed to protonix and heparin GI: Glucerna Endo: DM on insulin, ISS PPX: Protonix and heparin <Tristan Concepcion - Last Filed: 01/17/18 15:46> CCU Objective - Vital Signs / Intake & Output Vital Signs (Last 4 hours): Vital Signs Temp Pulse Resp BP Pulse Ox 01/17/18 14:10 89 16 98 01/17/18 14:00 94 H 16 99 01/17/18 13:50 93 H 19 99 01/17/18 13:40 91 H 18 98 01/17/18 13:30 91 H 18 98 01/17/18 13:23 91 H 19 117/60 01/17/18 13:20 89 19 98 01/17/18 13:10 90 18 98 01/17/18 13:00 88 19 98 01/17/18 12:50 90 16 98 01/17/18 12:40 88 17 99 01/17/18 12:30 85 16 99 01/17/18 12:23 88 18 124/59 L 97 01/17/18 12:20 88 17 99 01/17/18 12:10 90 18 100 01/17/18 12:00 99.8 F H 90 16 100 01/17/18 11:50 90 17 100 01/17/18 11:40 90 16 100 Intake and Output (Last 8hrs): Intake & Output 01/17/18 01/17/18 01/17/18 06:59 14:59 22:59 Intake Total 103.1 1140 Output Total 330 690 Balance -226.9 450 Weight 230 lb Intake: Intake, IV Amount 103.1 670 Left Antecubital 103.1 650 Left Hand 10 Right Antecubital 10 Tube Feeding 310 Other 160 Output: Urine 330 690 Urethral (Stanley) 330 690 Other: # Bowel Movements 0 0 - Medications Active Medications: Active Medications Generic Name Dose Route Start Last Admin Trade Name Freq PRN Reason Stop Dose Admin Albuterol Sulfate 2.5 mg 01/16/18 14:45 01/17/18 13:52 Albuterol 0.083% Inhal Lynne (2.5 Mg/3 Ml) Ud IH 2.5 mg RQ6 SHINE Administration Aspirin 81 mg 01/17/18 10:00 01/17/18 10:20 Aspirin Chewable PO 81 mg DAILY SHINE Administration Carvedilol 25 mg 01/16/18 18:00 01/17/18 10:21 Coreg PO 25 mg BID SHINE Administration Heparin Sodium (Porcine) 5,000 units 01/17/18 14:00 01/17/18 14:03 Heparin SC 5,000 units Q8 SHINE Administration Hydralazine HCl 50 mg 01/16/18 22:00 01/17/18 14:03 Apresoline PO 50 mg Q8 SHINE Administration Levetiracetam 500 mg/ Sodium 105 mls @ 420 mls/hr 01/17/18 04:00 01/17/18 15: 04 Chloride IVPB 420 mls/hr Q12H SHINE Administration Sodium Chloride 1,000 mls @ 75 mls/hr 01/17/18 10:35 01/17/18 11:42 Sodium Chloride 0.9% IV 75 mls/hr .[id number] SHINE Administration Azithromycin 500 mg/ Sodium 250 mls @ 250 mls/hr 01/17/18 14:00 01/17/18 14: 02 Chloride IVPB 250 mls/hr Q24H SHINE Administration Ceftriaxone Sodium 1 gm/ 100 mls @ 100 mls/hr 01/18/18 10:00 Sodium Chloride IVPB DAILY SHINE Insulin Human Regular 0 unit 01/16/18 18:00 01/17/18 12:25 Novolin R SC 4 unit Q6 SHINE Administration Protocol Lisinopril 20 mg 01/17/18 10:00 01/17/18 10:33 Zestril PO 20 mg DAILY SHINE Administration Pantoprazole Sodium 40 mg 01/16/18 17:15 01/17/18 10:22 Protonix Inj IVP 40 mg DAILY [facility] Administration Rosuvastatin Calcium 10 mg 01/16/18 22:00 01/16/18 22:00 Crestor PO 10 mg HS [facility] Administration Sennosides 8.6 mg 01/17/18 14:00 01/17/18 14:41 Senokot Tab PO 8.6 mg DAILY [facility] Administration - Patient Studies Lab Studies: Lab Studies 01/17/18 01/17/18 01/17/18 Range/Units 11:27 06:30 06:30 WBC 10.0 (4.8-10.8) K/uL RBC 4.39 L (4.40-5.90) Mil/uL Hgb 13.7 D (12.0-18.0) g/dL Hct 40.5 (35.0-51.0) % MCV 92.2 (80.0-94.0) fL MCH 31.1 H (27.0-31.0) pg MCHC 33.8 (33.0-37.0) g/dL RDW 13.1 (11.5-14.5) % Plt Count 178 (130-400) K/uL MPV 12.0 H (7.2-11.7) fL Neut % (Auto) 80.5 H (50.0-75.0) % Lymph % (Auto) 10.9 L (20.0-40.0) % [place] % (Auto) 8.3 (0.0-10.0) % Eos % (Auto) 0.0 (0.0-4.0) % Baso % (Auto) 0.3 (0.0-2.0) % Neut # (Auto) 8.0 H (1.8-7.0) K/uL Lymph # (Auto) 1.1 (1.0-4.3) K/uL [place] # (Auto) 0.8 (0.0-0.8) K/uL Eos # (Auto) 0.0 (0.0-0.7) K/uL Baso # (Auto) 0.0 (0.0-0.2) K/uL Puncture Site pCO2 (35-45) mm/Hg pO2 (80-100) mm/Hg HCO3 (21-28) mmol/L ABG pH (7.35-7.45) ABG Total CO2 (22-28) mmol/L ABG O2 Saturation (95-98) % ABG Base Excess (-2.0-3.0) mmol/L Jamey Test ABG Potassium (3.6-5.2) mmol/L A-a O2 Difference mm/Hg Respiratory Index Sodium 140 (132-148) mmol/l Chloride 105 (98-107) mmol/L Glucose (75-110) mg/dl Lactate (0.7-2.1) mmol/L Vent Mode Mechanical Rate FiO2 % Tidal Volume PEEP Potassium 4.7 (3.6-5.2) mmol/L Carbon Dioxide 22 (22-30) mmol/L Anion Gap 18 (10-20) BUN 50 H (9-20) mg/dL Creatinine 1.9 H (0.8-1.5) mg/dL Est GFR ( Amer) 43 Est GFR (Non-Af Amer) 36 POC Glucose (mg/dL) 220 H (65-110) mg/dL Random Glucose 150 H (75-110) mg/dL Calcium 8.5 L (8.6-10.4) mg/dl Phosphorus 5.5 H (2.5-4.5) mg/dL Magnesium 2.3 (1.6-2.3) mg/dL Total Bilirubin 1.5 H (0.2-1.3) mg/dL AST 46 (17-59) U/L ALT 22 (21-72) U/L Alkaline Phosphatase 50 (38-126) U/L Total Protein 6.6 (6.3-8.3) g/dL Albumin 3.6 (3.5-5.0) g/dL Globulin 2.9 (2.2-3.9) gm/dL Albumin/Globulin Ratio 1.2 (1.0-2.1) Arterial Blood Potassium (3.6-5.2) mmol/L 01/17/18 01/16/18 01/16/18 Range/Units 05:15 23:38 18:26 WBC (4.8-10.8) K/uL RBC (4.40-5.90) Mil/uL Hgb (12.0-18.0) g/dL Hct (35.0-51.0) % MCV (80.0-94.0) fL MCH (27.0-31.0) pg MCHC (33.0-37.0) g/dL RDW (11.5-14.5) % Plt Count (130-400) K/uL MPV (7.2-11.7) fL Neut % (Auto) (50.0-75.0) % Lymph % (Auto) (20.0-40.0) % [place] % (Auto) (0.0-10.0) % Eos % (Auto) (0.0-4.0) % Baso % (Auto) (0.0-2.0) % Neut # (Auto) (1.8-7.0) K/uL Lymph # (Auto) (1.0-4.3) K/uL [place] # (Auto) (0.0-0.8) K/uL Eos # (Auto) (0.0-0.7) K/uL Baso # (Auto) (0.0-0.2) K/uL Puncture Site Rb pCO2 40 (35-45) mm/Hg pO2 207 H (80-100) mm/Hg HCO3 24.0 (21-28) mmol/L ABG pH 7.38 (7.35-7.45) ABG Total CO2 24.9 (22-28) mmol/L ABG O2 Saturation 99.4 H (95-98) % ABG Base Excess -1.3 (-2.0-3.0) mmol/L Jamey Test Na ABG Potassium 3.6 (3.6-5.2) mmol/L A-a O2 Difference 456.0 mm/Hg Respiratory Index 2.2 Sodium 140.0 (132-148) mmol/l Chloride 106.0 (98-107) mmol/L Glucose 192 H (75-110) mg/dl Lactate 1.0 (0.7-2.1) mmol/L Vent Mode Prvc Mechanical Rate 16 FiO2 100.0 % Tidal Volume 500 PEEP 5 Potassium (3.6-5.2) mmol/L Carbon Dioxide (22-30) mmol/L Anion Gap (10-20) BUN (9-20) mg/dL Creatinine (0.8-1.5) mg/dL Est GFR ( Amer) Est GFR (Non-Af Amer) POC Glucose (mg/dL) 128 H 127 H (65-110) mg/dL Random Glucose (75-110) mg/dL Calcium (8.6-10.4) mg/dl Phosphorus (2.5-4.5) mg/dL Magnesium (1.6-2.3) mg/dL Total Bilirubin (0.2-1.3) mg/dL AST (17-59) U/L ALT (21-72) U/L Alkaline Phosphatase (38-126) U/L Total Protein (6.3-8.3) g/dL Albumin (3.5-5.0) g/dL Globulin (2.2-3.9) gm/dL Albumin/Globulin Ratio (1.0-2.1) Arterial Blood Potassium 3.6 (3.6-5.2) mmol/L Laboratory Results - last 24 hr 01/16/18 01/16/18 01/17/18 18:26 23:38 05:15 WBC RBC Hgb Hct MCV MCH MCHC RDW Plt Count MPV Neut % (Auto) Lymph % (Auto) [place] % (Auto) Eos % (Auto) Baso % (Auto) Neut # (Auto) Lymph # (Auto) [place] # (Auto) Eos # (Auto) Baso # (Auto) Puncture Site Rb pCO2 40 pO2 207 H HCO3 24.0 ABG pH 7.38 ABG Total CO2 24.9 ABG O2 Saturation 99.4 H ABG Base Excess -1.3 Jamey Test Na ABG Potassium 3.6 A-a O2 Difference 456.0 Respiratory Index 2.2 Sodium 140.0 Chloride 106.0 Glucose 192 H Lactate 1.0 Vent Mode Prvc Mechanical Rate 16 FiO2 100.0 Tidal Volume 500 PEEP 5 Potassium Carbon Dioxide Anion Gap BUN Creatinine Est GFR ( Amer) Est GFR (Non-Af Amer) POC Glucose (mg/dL) 127 H 128 H Random Glucose Calcium Phosphorus Magnesium Total Bilirubin AST ALT Alkaline Phosphatase Total Protein Albumin Globulin Albumin/Globulin Ratio Arterial Blood Potassium 3.6 01/17/18 01/17/18 01/17/18 06:30 06:30 11:27 WBC 10.0 RBC 4.39 L Hgb 13.7 D Hct 40.5 MCV 92.2 MCH 31.1 H MCHC 33.8 RDW 13.1 Plt Count 178 MPV 12.0 H Neut % (Auto) 80.5 H Lymph % (Auto) 10.9 L [place] % (Auto) 8.3 Eos % (Auto) 0.0 Baso % (Auto) 0.3 Neut # (Auto) 8.0 H Lymph # (Auto) 1.1 [place] # (Auto) 0.8 Eos # (Auto) 0.0 Baso # (Auto) 0.0 Puncture Site pCO2 pO2 HCO3 ABG pH ABG Total CO2 ABG O2 Saturation ABG Base Excess Jamey Test ABG Potassium A-a O2 Difference Respiratory Index Sodium 140 Chloride 105 Glucose Lactate Vent Mode Mechanical Rate FiO2 Tidal Volume PEEP Potassium 4.7 Carbon Dioxide 22 Anion Gap 18 BUN 50 H Creatinine 1.9 H Est GFR ( Amer) 43 Est GFR (Non-Af Amer) 36 POC Glucose (mg/dL) 220 H Random Glucose 150 H Calcium 8.5 L Phosphorus 5.5 H Magnesium 2.3 Total Bilirubin 1.5 H AST 46 ALT 22 Alkaline Phosphatase 50 Total Protein 6.6 Albumin 3.6 Globulin 2.9 Albumin/Globulin Ratio 1.2 Arterial Blood Potassium Attending/Attestation - Attestation I have personally seen and examined this patient.: Yes I have fully participated in the care of the patient.: Yes I have reviewed all pertinent clinical information: Yes
[2018-01-17] MEDS: Azithromycin 500 MG in Sodium Chloride 0.9% 250 ML IVPB SCH (14:02)
--- NOTE | 2018-01-17 14:08 | CP.PCM.PN ---
Subjective - Date & Time of Evaluation Date of Evaluation: 01/17/18 Time of Evaluation: 14:04 - Subjective Subjective: PGY2 progress note for neurology, Dr. Perez Pt seen and examined at bedside. Patient underwent EEG this morning. Patient is currently intubated, off sedation. Stanley in place draining light yellow urine. 12 point ROS unobtainable due to mental status. Objective - Vital Signs/Intake and Output Vital Signs (last 24 hours): Temp Pulse Resp BP Pulse Ox 99.8 F H 85 16 124/59 L 99 01/17/18 12:00 01/17/18 12:30 01/17/18 12:30 01/17/18 12:23 01/17/18 12:30 Intake and Output: 01/17/18 01/17/18 06:59 18:59 Intake Total 112.4 665 Output Total 475 540 Balance -362.6 125 - Medications Medications: Current Medications Albuterol Sulfate (Albuterol 0.083% Inhal Lynne (2.5 Mg/3 Ml) Ud) 2.5 mg IH RQ6 [facility] Last Admin: 01/17/18 13:52 Dose: 2.5 mg Aspirin (Aspirin Chewable) 81 mg PO DAILY [facility] Last Admin: 01/17/18 10:20 Dose: 81 mg Carvedilol (Coreg) 25 mg PO BID [facility] Last Admin: 01/17/18 10:21 Dose: 25 mg Heparin Sodium (Porcine) (Heparin) 5,000 units SC Q8 [facility] Hydralazine HCl (Apresoline) 50 mg PO Q8 [facility] Last Admin: 01/17/18 06:00 Dose: Not Given Levetiracetam 500 mg/ Sodium (Chloride) 105 mls @ 420 mls/hr IVPB Q12H [facility] Last Admin: 01/17/18 04:00 Dose: 420 mls/hr Sodium Chloride (Sodium Chloride 0.9%) 1,000 mls @ 75 mls/hr IV .[id number] [facility] Last Admin: 01/17/18 11:42 Dose: 75 mls/hr Azithromycin 500 mg/ Sodium (Chloride) 250 mls @ 250 mls/hr IVPB Q24H [facility] Ceftriaxone Sodium 1 gm/ (Sodium Chloride) 100 mls @ 100 mls/hr IVPB DAILY [facility] Insulin Human Regular (Novolin R) 0 unit SC Q6 [facility] PRN Reason: Protocol Last Admin: 01/17/18 12:25 Dose: 4 unit Lisinopril (Zestril) 20 mg PO DAILY [facility] Last Admin: 01/17/18 10:33 Dose: 20 mg Pantoprazole Sodium (Protonix Inj) 40 mg IVP DAILY [facility] Last Admin: 01/17/18 10:22 Dose: 40 mg Rosuvastatin Calcium (Crestor) 10 mg PO HS [facility] Last Admin: 01/16/18 22:00 Dose: 10 mg Sennosides (Senokot Tab) 8.6 mg PO DAILY [facility] - Labs Labs: 01/17/18 06:30 01/17/18 06:30 PT 10.6 SECONDS (9.7-12.2) 01/16/18 12:27 INR 0.9 01/16/18 12:27 APTT 33 SECONDS (21-34) 01/16/18 12:27 - Constitutional Appears: No Acute Distress - Head Exam Head Exam: ATRAUMATIC - Eye Exam Eye Exam: absent: EOMI Pupil Exam: absent: NORMAL ACCOMODATION Additional comments: pupils minimal reaction to light bilaterally - ENT Exam ENT Exam: Mucous Membranes Moist - Respiratory Exam Respiratory Exam: absent: Accessory Muscle Use, Rales, Rhonchi, Wheezes, Respiratory Distress - Cardiovascular Exam Cardiovascular Exam: REGULAR RHYTHM. absent: Gallop, Rubs, +S1, +S2, Murmur - GI/Abdominal Exam GI & Abdominal Exam: Soft, Normal Bowel Sounds. absent: Distended, Firm, Guarding, Rigid, Tenderness, Organomegaly - Extremities Exam Extremities Exam: absent: Pedal Edema - Neurological Exam Neurological Exam: absent: Alert, Awake, CN II-XII Intact, Oriented x3 Additional comments: patient does not react to pain. positive corneal reflex. Patient is breathing over the vent - Psychiatric Exam Psychiatric exam: absent: Normal Affect, Normal Mood - Skin Skin Exam: Dry, Intact, Normal Color, Warm Assessment and Plan - Assessment and Plan (Free Text) Assessment: This is a 67 year old male with PMHx multiple CVA which are likely contributing to his new onset seizures. New onset Seizures EEG done this morning. EEG read by Dr. Perez showing diffuse slowing with some epileptical discharges in the temporal lobe. Due to the recent changes in the mental status, will repeat CT scan of head. Continue Keppra [address] showed no acute pathologies; however significant disease seen in multiple areas of the brain due to multiple prior CVA. These prior insults are likely causing this new onset of seizures. Will continue to monitor clinical course Patient seen and discussed with Dr. Perez
--- NOTE | 2018-01-17 15:27 | PCM.EEG ---
Electroencephalogram Report - Electroencephalogram Report Procedure Date: 01/17/18 Interpretation: Indication: Seizure. Medications were reviewed. Technical: This is a digitally recorded electroencephalogram. The international 10-20 electrode placement system is used for scalp electrode placement. Eighteen channels of scalp EEG are recorded Another channel was used for for ECG. The data are stored digitally and reviewed in reformatted montages for optimal display. Diffuse Abnormality: No well formed alpha activity was seen. Mixed diffuse theta and delta activity was seen. Markedly suppressed EEG activity was observed. Focal abnormality: Intermittent focal slowing was seen. Periodic lateralized discharge was seen. Mainly over the Left temporal area. Impression: This EEG is abnormal. Diffuse slowing is seen, suggestive of a diffuse abnormality of the brain. Epileptiform discharge was seen. This can represent a potential seizure focus. Some focal slowing was seen, suggestive of a focal abnormality. Clinical correlation is needed.
--- NOTE | 2018-01-17 16:31 | CT ---
PROCEDURE: CT HEAD WITHOUT CONTRAST. HISTORY: acute AMS COMPARISON: 01/16/2018. TECHNIQUE: Axial computed tomography images were obtained through the head/brain without intravenous contrast. Radiation dose: Total exam DLP = 1222.76 mGy-cm. This CT exam was performed using one or more of the following dose reduction techniques: Automated exposure control, adjustment of the mA and/or kV according to patient size, and/or use of iterative reconstruction technique. FINDINGS: HEMORRHAGE: No intracranial hemorrhage. BRAIN: Again seen is an old large right CAT SITTER territory infarction involving the occipital lobe. There are old infarctions in the left borrero radiata, basal ganglia, thalamus and right nodes posterior subinsular white matter. There are moderate chronic microangiopathic changes. There are coarse atherosclerotic calcifications in the cavernous carotid arteries. VENTRICLES: There is mild age-related global parenchymal volume loss and proportionate enlargement of the ventricles and cortical sulci. CALVARIUM: Unremarkable. PARANASAL SINUSES: There is retention cyst/ polyp in the right maxillary sinus and mucosal thickening in the left maxillary sinus. . MASTOID AIR CELLS: Predominantly clear. OTHER FINDINGS: None. IMPRESSION: No acute intracranial abnormality. Large old right CAT SITTER territory infarction involving the occipital lobe. Old lacunar infarctions in the left borrero radiata, basal ganglia, thalamus and right posterior subinsular cortex. Moderate chronic microangiopathic changes and mild age-related global parenchymal volume loss.
[2018-01-17] MEDS: levETIRAcetam 1,000 MG in Sodium Chloride 0.9% 100 ML IVPB SCH (17:11)
[2018-01-17 17:57] LABS: MYCOPLASMA PNEUMONIAE IGM NEGATIVE (NEGATIVE)
--- NOTE | 2018-01-17 23:00 | CP.PCM.PN ---
Subjective - Date & Time of Evaluation Date of Evaluation: 01/17/18 Time of Evaluation: 18:00 - Subjective Subjective: Pt seen and examined , remains on ventilator, sedated , on Iv keppra EEG done this morning. EEG read by Dr. Perez showing diffuse slowing with some epileptical discharges in the temporal lobe. Due to the recent changes in the mental status, will repeat CT scan of head. Objective - Vital Signs/Intake and Output Vital Signs (last 24 hours): Temp Pulse Resp BP Pulse Ox 100.5 F H 85 16 120/61 99 01/17/18 16:00 01/17/18 19:00 01/17/18 19:00 01/17/18 18:23 01/17/18 19:00 Intake and Output: 01/17/18 01/18/18 18:59 06:59 Intake Total 1740 125 Output Total 860 40 Balance 880 85 - Medications Medications: Current Medications Albuterol Sulfate (Albuterol 0.083% Inhal Lynne (2.5 Mg/3 Ml) Ud) 2.5 mg IH RQ6 [facility] Last Admin: 01/17/18 19:58 Dose: 2.5 mg Aspirin (Aspirin Chewable) 81 mg PO DAILY [facility] Last Admin: 01/17/18 10:20 Dose: 81 mg Carvedilol (Coreg) 25 mg PO BID [facility] Last Admin: 01/17/18 17:48 Dose: 25 mg Heparin Sodium (Porcine) (Heparin) 5,000 units SC Q8 [facility] Last Admin: 01/17/18 21:35 Dose: 5,000 units Hydralazine HCl (Apresoline) 50 mg PO Q8 [facility] Last Admin: 01/17/18 21:34 Dose: 50 mg Sodium Chloride (Sodium Chloride 0.9%) 1,000 mls @ 75 mls/hr IV .[id number] [facility] Last Admin: 01/17/18 11:42 Dose: 75 mls/hr Azithromycin 500 mg/ Sodium (Chloride) 250 mls @ 250 mls/hr IVPB Q24H [facility] Last Admin: 01/17/18 14:02 Dose: 250 mls/hr Ceftriaxone Sodium 1 gm/ (Sodium Chloride) 100 mls @ 100 mls/hr IVPB DAILY [facility] Levetiracetam 1,000 mg/ Sodium (Chloride) 110 mls @ 420 mls/hr IVPB Q12H [facility] Last Admin: 01/17/18 17:11 Dose: 420 mls/hr Insulin Human Regular (Novolin R) 0 unit SC Q6 [facility] PRN Reason: Protocol Last Admin: 01/17/18 17:48 Dose: 4 unit Lisinopril (Zestril) 20 mg PO DAILY [facility] Last Admin: 01/17/18 10:33 Dose: 20 mg Pantoprazole Sodium (Protonix Inj) 40 mg IVP DAILY [facility] Last Admin: 01/17/18 10:22 Dose: 40 mg Rosuvastatin Calcium (Crestor) 10 mg PO HS [facility] Last Admin: 01/17/18 21:35 Dose: 10 mg Sennosides (Senokot Tab) 8.6 mg PO DAILY [facility] Last Admin: 01/17/18 14:41 Dose: 8.6 mg - Labs Labs: 01/17/18 06:30 01/17/18 06:30 PT 10.6 SECONDS (9.7-12.2) 01/16/18 12:27 INR 0.9 01/16/18 12:27 APTT 33 SECONDS (21-34) 01/16/18 12:27 - Constitutional Appears: No Acute Distress - Head Exam Head Exam: ATRAUMATIC, NORMAL INSPECTION, NORMOCEPHALIC - Eye Exam Eye Exam: EOMI, Normal appearance, PERRL Pupil Exam: NORMAL ACCOMODATION, PERRL - Respiratory Exam Respiratory Exam: Decreased Breath Sounds, Rales, Rhonchi - Cardiovascular Exam Cardiovascular Exam: REGULAR RHYTHM, +S1, +S2. absent: Murmur - GI/Abdominal Exam GI & Abdominal Exam: Soft, Normal Bowel Sounds. absent: Tenderness Assessment and Plan (1) Status epilepticus Status: Acute (2) COPD (chronic obstructive pulmonary disease) Status: Acute (3) Congestive heart failure Status: Acute (4) Diabetes Status: Acute
[2018-01-18] MEDS: (Novolin R) Insulin Human Regular 100 units/ml vial SC SCH ×4 (00:20→18:06)
[2018-01-18] MEDS: Sodium Chloride 0.9% 1,000 ML IV SCH ×2 (00:30→16:53)
[2018-01-18] MEDS: Albuterol 0.083% Inhal Sol (2.5 mg/3 mL) UD IH SCH ×4 (01:31→20:29)
--- NOTE | 2018-01-18 02:51 | CP.PCM.PN ---
Subjective - Date & Time of Evaluation Date of Evaluation: 01/18/18 Time of Evaluation: 02:48 - Subjective Subjective: Patient has minimal response, gag present, minimal corneal, breathing 16/min, vent set on 16/min, off sedation, prior EEG confirmed seizure, non convulsive, even though keppra increased in dose, but to give him benefit of doubt will start continuous sedation with versed 1mg/hr till confirm no seizure on EEG or patient has improved responsiveness while on versed, patient's baseline was able to live alone and take care of himself. Objective - Vital Signs/Intake and Output Vital Signs (last 24 hours): Temp Pulse Resp BP Pulse Ox 100.5 F H 85 16 120/61 99 01/17/18 16:00 01/17/18 19:00 01/17/18 19:00 01/17/18 18:23 01/17/18 19:00 Intake and Output: 01/17/18 01/18/18 18:59 06:59 Intake Total 1740 125 Output Total 860 40 Balance 880 85 - Medications Medications: Current Medications Albuterol Sulfate (Albuterol 0.083% Inhal Lynne (2.5 Mg/3 Ml) Ud) 2.5 mg IH RQ6 [facility] Last Admin: 01/18/18 01:31 Dose: 2.5 mg Aspirin (Aspirin Chewable) 81 mg PO DAILY [facility] Last Admin: 01/17/18 10:20 Dose: 81 mg Carvedilol (Coreg) 25 mg PO BID [facility] Last Admin: 01/17/18 17:48 Dose: 25 mg Heparin Sodium (Porcine) (Heparin) 5,000 units SC Q8 [facility] Last Admin: 01/17/18 21:35 Dose: 5,000 units Hydralazine HCl (Apresoline) 50 mg PO Q8 [facility] Last Admin: 01/17/18 21:34 Dose: 50 mg Sodium Chloride (Sodium Chloride 0.9%) 1,000 mls @ 75 mls/hr IV .[id number] [facility] Last Admin: 01/18/18 00:30 Dose: 75 mls/hr Azithromycin 500 mg/ Sodium (Chloride) 250 mls @ 250 mls/hr IVPB Q24H [facility] Last Admin: 01/17/18 14:02 Dose: 250 mls/hr Ceftriaxone Sodium 1 gm/ (Sodium Chloride) 100 mls @ 100 mls/hr IVPB DAILY [facility] Levetiracetam 1,000 mg/ Sodium (Chloride) 110 mls @ 420 mls/hr IVPB Q12H [facility] Last Admin: 01/17/18 17:11 Dose: 420 mls/hr Insulin Human Regular (Novolin R) 0 unit SC Q6 [facility] PRN Reason: Protocol Last Admin: 01/18/18 00:20 Dose: 6 unit Lisinopril (Zestril) 20 mg PO DAILY [facility] Last Admin: 01/17/18 10:33 Dose: 20 mg Pantoprazole Sodium (Protonix Inj) 40 mg IVP DAILY [facility] Last Admin: 01/17/18 10:22 Dose: 40 mg Rosuvastatin Calcium (Crestor) 10 mg PO HS [facility] Last Admin: 01/17/18 21:35 Dose: 10 mg Sennosides (Senokot Tab) 8.6 mg PO DAILY [facility] Last Admin: 01/17/18 14:41 Dose: 8.6 mg - Labs Labs: 01/17/18 06:30 01/17/18 06:30 PT 10.6 SECONDS (9.7-12.2) 01/16/18 12:27 INR 0.9 01/16/18 12:27 APTT 33 SECONDS (21-34) 01/16/18 12:27
[2018-01-18] MEDS: Midazolam 50 mg/10 ml 100 MG in Sodium Chloride 0.9% 80 ML IV SCH (03:55)
[2018-01-18] MEDS: levETIRAcetam 1,000 MG in Sodium Chloride 0.9% 100 ML IVPB SCH ×2 (04:00→15:30)
[2018-01-18 06:11] LABS: ARTERIAL BLOOD GAS HCO3 24.9 mmol/L (21-28); ARTERIAL BLOOD GAS HEMOGLOBIN 13.6 g/dL (11.7-17.4); ARTERIAL BLOOD GAS O2 SAT 97.5 % (95-98); ARTERIAL BLOOD GAS PCO2 43 mm/Hg (35-45); ARTERIAL BLOOD GAS PH 7.38 (7.35-7.45); ARTERIAL BLOOD GAS PO2 89 mm/Hg (80-100); ARTERIAL BLOOD GAS TCO2 26.7 mmol/L (22-28)
[2018-01-18 06:42] LABS: BASO % 0.3 % (0.0-2.0); EOS % 0.1 % (0.0-4.0); HEMOGLOBIN 13.9 g/dL (12.0-18.0); LYMPH # 1.6 K/uL (1.0-4.3); LYMPH % 16.4 % (20.0-40.0); MEAN CELL VOLUME 93.1 fL (80.0-94.0); MEAN CORPUSCULAR HEMOGLOBIN 31.2 pg (27.0-31.0); MEAN CORPUSCULAR HGB CONC 33.5 g/dL (33.0-37.0); MONO # 1.1 K/uL (0.0-0.8); MONO % 11.9 % (0.0-10.0); NEUT # 6.9 K/uL (1.8-7.0); NEUT % 71.3 % (50.0-75.0); RBC 4.44 Mil/uL (4.40-5.90); RED CELL DISTRIBUTION WIDTH 13.5 % (11.5-14.5); WHITE BLOOD COUNT 9.7 K/uL (4.8-10.8)
[2018-01-18 07:34] LABS: ALBUMIN 3.3 g/dL (3.5-5.0); CALCIUM 7.9 mg/dl (8.6-10.4)
--- NOTE | 2018-01-18 09:13 | RAD ---
Chest x-ray single frontal view History: Intubated. Comparison: 01/17/2018 Findings: Lines and tubes stable position. Status post median sternotomy and CABG. Cardiomegaly. Tortuous ectatic aorta. Calcification at aortic knob. Small left pleural effusion. Diffuse increased interstitial lung markings with somewhat confluent consolidative changes in the right upper to mid lung zone. Upper lobe granulomatous changes. Linear atelectatic changes in the right mid lung zone. Degenerative changes in the spine. Impression: Lines and tubes stable position. Status post median sternotomy and CABG. Cardiomegaly. Tortuous ectatic aorta. Calcification at aortic knob. Small left pleural effusion. Diffuse increased interstitial lung markings with somewhat confluent consolidative changes in the right upper to mid lung zone. Upper lobe granulomatous changes. Linear atelectatic changes in the right mid lung zone.
[2018-01-18 11:25] LABS: BARBITURATES, UR NEGATIVE (NEGATIVE); OPIATES, UR NEGATIVE (NEGATIVE); PHENCYCLIDINE, UR NEGATIVE (NEGATIVE)
[2018-01-18] MEDS ORDERED: (Lantus) Insulin Glargine, Recombinant SC SCH (11:30)
[2018-01-18 11:45] LABS: BENZODIAZEPINES, UR POSITIVE (NEGATIVE)
--- NOTE | 2018-01-18 12:58 | CP.CCUPN ---
<Navin Rodriguez - Last Filed: 01/18/18 13:02> CCU Subjective - Physician Review Subjective (Free Text): 01/17/18 12:23 Patient seen and examined at bedside EEG today Diprivan stopped at midnight 01/17/18 15:28 Fever 101 Su culture 01/18/18 12:56 patient seen and examined at bedside EEG showed focal epileptic activity keppra increased to 1000 BID and Versed drip Repeat EEG ordered CCU Objective - Vital Signs / Intake & Output Vital Signs (Last 4 hours): Vital Signs Temp Pulse Resp BP Pulse Ox 01/18/18 12:00 98.3 F 81 17 99 01/18/18 11:50 82 16 99 01/18/18 11:40 83 16 99 01/18/18 11:30 83 16 99 01/18/18 11:23 83 19 140/57 L 98 01/18/18 11:20 83 17 99 01/18/18 10:30 88 16 99 01/18/18 10:23 87 17 145/57 L 99 01/18/18 10:09 141/67 01/18/18 09:40 84 16 99 01/18/18 09:30 85 16 99 01/18/18 09:23 89 16 141/67 01/18/18 09:20 90 17 99 Intake and Output (Last 8hrs): Intake & Output 01/17/18 01/18/18 01/18/18 22:59 06:59 14:59 Intake Total 1100 1095 775 Output Total 470 645 425 Balance 630 450 350 Weight 225 lb Intake: Intake, IV Amount 650 625 475 Left Antecubital 650 625 475 Tube Feeding 400 400 300 Other 50 70 Output: Urine 470 645 425 Urethral (Stanley) 470 645 425 Other: # Bowel Movements 1 0 - Physical Exam Head: Positive for: Atraumatic, Normocephalic Pupils: Positive for: Other (corneal reflex) Neck: Positive for: Normal Range of Motion Respiratory/Chest: Positive for: Clear to Auscultation Cardiovascular: Positive for: Regular Rate and Rhythm Abdomen: Positive for: Normal Bowel Sounds. Negative for: Tenderness, Distention, Peritoneal Signs Neurological: Positive for: Other (gag and corneal, no response to pain) - Medications Active Medications: Active Medications Generic Name Dose Route Start Last Admin Trade Name Freq PRN Reason Stop Dose Admin Albuterol Sulfate 2.5 mg 01/16/18 14:45 01/18/18 07:42 Albuterol 0.083% Inhal Lynne (2.5 Mg/3 Ml) Ud IH 2.5 mg RQ6 SHINE Administration Aspirin 81 mg 01/17/18 10:00 01/18/18 10:08 Aspirin Chewable PO 81 mg DAILY SHINE Administration Carvedilol 25 mg 01/16/18 18:00 01/18/18 10:09 Coreg PO 25 mg BID SHINE Administration Heparin Sodium (Porcine) 5,000 units 01/17/18 14:00 01/18/18 06:57 Heparin SC 5,000 units Q8 SHINE Administration Hydralazine HCl 50 mg 01/16/18 22:00 01/18/18 06:57 Apresoline PO 50 mg Q8 SHINE Administration Sodium Chloride 1,000 mls @ 75 mls/hr 01/17/18 10:35 01/18/18 00:30 Sodium Chloride 0.9% IV 75 mls/hr .[id number] SHINE Administration Azithromycin 500 mg/ Sodium 250 mls @ 250 mls/hr 01/17/18 14:00 01/17/18 14: 02 Chloride IVPB 250 mls/hr Q24H SHINE Administration Ceftriaxone Sodium 1 gm/ 100 mls @ 100 mls/hr 01/18/18 10:00 01/18/18 10:10 Sodium Chloride IVPB 100 mls/hr DAILY SHINE Administration Levetiracetam 1,000 mg/ Sodium 110 mls @ 420 mls/hr 01/17/18 16:00 01/18/18 04:00 Chloride IVPB 420 mls/hr Q12H SHINE Administration Midazolam HCl 100 mg/ Sodium 100 mls @ 1 mls/hr 01/18/18 03:00 01/18/18 03:55 Chloride IV 1 mls/hr .Q24H SHINE Administration 1 MG/HR Insulin Glargine 15 unit 01/18/18 22:00 Lantus SC HS SHINE Insulin Human Regular 0 unit 01/16/18 18:00 01/18/18 12:43 Novolin R SC 6 unit Q6 SHINE Administration Protocol Pantoprazole Sodium 40 mg 01/16/18 17:15 01/18/18 10:10 Protonix Inj IVP 40 mg DAILY SHINE Administration Rosuvastatin Calcium 10 mg 01/16/18 22:00 01/17/18 21:35 Crestor PO 10 mg HS SHINE Administration Sennosides 8.6 mg 01/17/18 14:00 01/18/18 10:11 Senokot Tab PO 8.6 mg DAILY SHINE Administration - Patient Studies Lab Studies: Microbiology Studies 01/16/18 17:36 Gram Stain - Final Trachasp Lab Studies 01/18/18 01/18/18 01/18/18 Range/Units 11:34 10:45 06:33 WBC 9.7 (4.8-10.8) K/uL RBC 4.44 (4.40-5.90) Mil/uL Hgb 13.9 (12.0-18.0) g/dL Hct 41.3 (35.0-51.0) % MCV 93.1 (80.0-94.0) fL MCH 31.2 H (27.0-31.0) pg MCHC 33.5 (33.0-37.0) g/dL RDW 13.5 (11.5-14.5) % Plt Count 171 (130-400) K/uL MPV 12.0 H (7.2-11.7) fL Neut % (Auto) 71.3 (50.0-75.0) % Lymph % (Auto) 16.4 L (20.0-40.0) % [place] % (Auto) 11.9 H (0.0-10.0) % Eos % (Auto) 0.1 (0.0-4.0) % Baso % (Auto) 0.3 (0.0-2.0) % Neut # (Auto) 6.9 (1.8-7.0) K/uL Lymph # (Auto) 1.6 (1.0-4.3) K/uL [place] # (Auto) 1.1 H (0.0-0.8) K/uL Eos # (Auto) 0.0 (0.0-0.7) K/uL Baso # (Auto) 0.0 (0.0-0.2) K/uL Puncture Site pCO2 (35-45) mm/Hg pO2 (80-100) mm/Hg HCO3 (21-28) mmol/L ABG pH (7.35-7.45) ABG Total CO2 (22-28) mmol/L ABG O2 Saturation (95-98) % ABG Base Excess (-2.0-3.0) mmol/L ABG Hemoglobin (11.7-17.4) g/dL ABG Carboxyhemoglobin (0.5-1.5) % POC ABG HHb (Measured) (0.0-5.0) % ABG Methemoglobin (0.0-3.0) % Jamey Test A-a O2 Difference mm/Hg Respiratory Index Hgb O2 Saturation (95.0-98.0) % Vent Mode Mechanical Rate FiO2 % Tidal Volume PEEP Sodium (132-148) mmol/L Potassium (3.6-5.2) mmol/L Chloride (98-107) mmol/L Carbon Dioxide (22-30) mmol/L Anion Gap (10-20) BUN (9-20) mg/dL Creatinine (0.8-1.5) mg/dL Est GFR ( Amer) Est GFR (Non-Af Amer) POC Glucose (mg/dL) 263 H (65-110) mg/dL Random Glucose (75-110) mg/dL Calcium (8.6-10.4) mg/dl Phosphorus (2.5-4.5) mg/dL Magnesium (1.6-2.3) mg/dL Total Bilirubin (0.2-1.3) mg/dL AST (17-59) U/L ALT (21-72) U/L Alkaline Phosphatase (38-126) U/L Total Protein (6.3-8.3) g/dL Albumin (3.5-5.0) g/dL Globulin (2.2-3.9) gm/dL Albumin/Globulin Ratio (1.0-2.1) Urine Opiates Screen Negative (NEGATIVE) Urine Methadone Screen Negative (NEGATIVE) Ur Barbiturates Screen Negative (NEGATIVE) Ur Phencyclidine Scrn Negative (NEGATIVE) Ur Amphetamines Screen Negative (NEGATIVE) U Benzodiazepines Scrn Positive (NEGATIVE) U Oth Cocaine Metabols Negative (NEGATIVE) U Cannabinoids Screen Negative (NEGATIVE) Mycoplasma pneumon IgM (NEGATIVE) 01/18/18 01/18/18 01/18/18 Range/Units 06:33 06:11 05:12 WBC (4.8-10.8) K/uL RBC (4.40-5.90) Mil/uL Hgb (12.0-18.0) g/dL Hct (35.0-51.0) % MCV (80.0-94.0) fL MCH (27.0-31.0) pg MCHC (33.0-37.0) g/dL RDW (11.5-14.5) % Plt Count (130-400) K/uL MPV (7.2-11.7) fL Neut % (Auto) (50.0-75.0) % Lymph % (Auto) (20.0-40.0) % [place] % (Auto) (0.0-10.0) % Eos % (Auto) (0.0-4.0) % Baso % (Auto) (0.0-2.0) % Neut # (Auto) (1.8-7.0) K/uL Lymph # (Auto) (1.0-4.3) K/uL [place] # (Auto) (0.0-0.8) K/uL Eos # (Auto) (0.0-0.7) K/uL Baso # (Auto) (0.0-0.2) K/uL Puncture Site R bra pCO2 43 (35-45) mm/Hg pO2 89 (80-100) mm/Hg HCO3 24.9 (21-28) mmol/L ABG pH 7.38 (7.35-7.45) ABG Total CO2 26.7 (22-28) mmol/L ABG O2 Saturation 97.5 (95-98) % ABG Base Excess 0 (-2.0-3.0) mmol/L ABG Hemoglobin 13.6 (11.7-17.4) g/dL ABG Carboxyhemoglobin 1.6 H (0.5-1.5) % POC ABG HHb (Measured) 2.4 (0.0-5.0) % ABG Methemoglobin 1.1 (0.0-3.0) % Jamey Test Na A-a O2 Difference 214.0 mm/Hg Respiratory Index 2.4 Hgb O2 Saturation 95.0 (95.0-98.0) % Vent Mode Prvc Mechanical Rate 16 FiO2 50.0 % Tidal Volume 50 PEEP 5 Sodium 145 (132-148) mmol/L Potassium 4.0 (3.6-5.2) mmol/L Chloride 110 H (98-107) mmol/L Carbon Dioxide 23 (22-30) mmol/L Anion Gap 16 (10-20) BUN 57 H (9-20) mg/dL Creatinine 1.8 H (0.8-1.5) mg/dL Est GFR ( Amer) 46 Est GFR (Non-Af Amer) 38 POC Glucose (mg/dL) 213 H (65-110) mg/dL Random Glucose 257 H (75-110) mg/dL Calcium 7.9 L (8.6-10.4) mg/dl Phosphorus 3.9 (2.5-4.5) mg/dL Magnesium 2.8 H (1.6-2.3) mg/dL Total Bilirubin 0.7 (0.2-1.3) mg/dL AST 42 (17-59) U/L ALT 34 (21-72) U/L Alkaline Phosphatase 67 (38-126) U/L Total Protein 6.6 (6.3-8.3) g/dL Albumin 3.3 L (3.5-5.0) g/dL Globulin 3.3 (2.2-3.9) gm/dL Albumin/Globulin Ratio 1.0 (1.0-2.1) Urine Opiates Screen (NEGATIVE) Urine Methadone Screen (NEGATIVE) Ur Barbiturates Screen (NEGATIVE) Ur Phencyclidine Scrn (NEGATIVE) Ur Amphetamines Screen (NEGATIVE) U Benzodiazepines Scrn (NEGATIVE) U Oth Cocaine Metabols (NEGATIVE) U Cannabinoids Screen (NEGATIVE) Mycoplasma pneumon IgM (NEGATIVE) 01/17/18 01/17/18 01/17/18 Range/Units 23:26 17:25 15:02 WBC (4.8-10.8) K/uL RBC (4.40-5.90) Mil/uL Hgb (12.0-18.0) g/dL Hct (35.0-51.0) % MCV (80.0-94.0) fL MCH (27.0-31.0) pg MCHC (33.0-37.0) g/dL RDW (11.5-14.5) % Plt Count (130-400) K/uL MPV (7.2-11.7) fL Neut % (Auto) (50.0-75.0) % Lymph % (Auto) (20.0-40.0) % [place] % (Auto) (0.0-10.0) % Eos % (Auto) (0.0-4.0) % Baso % (Auto) (0.0-2.0) % Neut # (Auto) (1.8-7.0) K/uL Lymph # (Auto) (1.0-4.3) K/uL [place] # (Auto) (0.0-0.8) K/uL Eos # (Auto) (0.0-0.7) K/uL Baso # (Auto) (0.0-0.2) K/uL Puncture Site pCO2 (35-45) mm/Hg pO2 (80-100) mm/Hg HCO3 (21-28) mmol/L ABG pH (7.35-7.45) ABG Total CO2 (22-28) mmol/L ABG O2 Saturation (95-98) % ABG Base Excess (-2.0-3.0) mmol/L ABG Hemoglobin (11.7-17.4) g/dL ABG Carboxyhemoglobin (0.5-1.5) % POC ABG HHb (Measured) (0.0-5.0) % ABG Methemoglobin (0.0-3.0) % Jamey Test A-a O2 Difference mm/Hg Respiratory Index Hgb O2 Saturation (95.0-98.0) % Vent Mode Mechanical Rate FiO2 % Tidal Volume PEEP Sodium (132-148) mmol/L Potassium (3.6-5.2) mmol/L Chloride (98-107) mmol/L Carbon Dioxide (22-30) mmol/L Anion Gap (10-20) BUN (9-20) mg/dL Creatinine (0.8-1.5) mg/dL Est GFR ( Amer) Est GFR (Non-Af Amer) POC Glucose (mg/dL) 269 H 226 H (65-110) mg/dL Random Glucose (75-110) mg/dL Calcium (8.6-10.4) mg/dl Phosphorus (2.5-4.5) mg/dL Magnesium (1.6-2.3) mg/dL Total Bilirubin (0.2-1.3) mg/dL AST (17-59) U/L ALT (21-72) U/L Alkaline Phosphatase (38-126) U/L Total Protein (6.3-8.3) g/dL Albumin (3.5-5.0) g/dL Globulin (2.2-3.9) gm/dL Albumin/Globulin Ratio (1.0-2.1) Urine Opiates Screen (NEGATIVE) Urine Methadone Screen (NEGATIVE) Ur Barbiturates Screen (NEGATIVE) Ur Phencyclidine Scrn (NEGATIVE) Ur Amphetamines Screen (NEGATIVE) U Benzodiazepines Scrn (NEGATIVE) U Oth Cocaine Metabols (NEGATIVE) U Cannabinoids Screen (NEGATIVE) Mycoplasma pneumon IgM Negative (NEGATIVE) Laboratory Results - last 24 hr 01/17/18 01/17/18 01/17/18 15:02 17:25 23:26 WBC RBC Hgb Hct MCV MCH MCHC RDW Plt Count MPV Neut % (Auto) Lymph % (Auto) [place] % (Auto) Eos % (Auto) Baso % (Auto) Neut # (Auto) Lymph # (Auto) [place] # (Auto) Eos # (Auto) Baso # (Auto) Puncture Site pCO2 pO2 HCO3 ABG pH ABG Total CO2 ABG O2 Saturation ABG Base Excess ABG Hemoglobin ABG Carboxyhemoglobin POC ABG HHb (Measured) ABG Methemoglobin Jamey Test A-a O2 Difference Respiratory Index Hgb O2 Saturation Vent Mode Mechanical Rate FiO2 Tidal Volume PEEP Sodium Potassium Chloride Carbon Dioxide Anion Gap BUN Creatinine Est GFR ( Amer) Est GFR (Non-Af Amer) POC Glucose (mg/dL) 226 H 269 H Random Glucose Calcium Phosphorus Magnesium Total Bilirubin AST ALT Alkaline Phosphatase Total Protein Albumin Globulin Albumin/Globulin Ratio Urine Opiates Screen Urine Methadone Screen Ur Barbiturates Screen Ur Phencyclidine Scrn Ur Amphetamines Screen U Benzodiazepines Scrn U Oth Cocaine Metabols U Cannabinoids Screen Mycoplasma pneumon IgM Negative 01/18/18 01/18/18 01/18/18 05:12 06:11 06:33 WBC RBC Hgb Hct MCV MCH MCHC RDW Plt Count MPV Neut % (Auto) Lymph % (Auto) [place] % (Auto) Eos % (Auto) Baso % (Auto) Neut # (Auto) Lymph # (Auto) [place] # (Auto) Eos # (Auto) Baso # (Auto) Puncture Site R bra pCO2 43 pO2 89 HCO3 24.9 ABG pH 7.38 ABG Total CO2 26.7 ABG O2 Saturation 97.5 ABG Base Excess 0 ABG Hemoglobin 13.6 ABG Carboxyhemoglobin 1.6 H POC ABG HHb (Measured) 2.4 ABG Methemoglobin 1.1 Jamey Test Na A-a O2 Difference 214.0 Respiratory Index 2.4 Hgb O2 Saturation 95.0 Vent Mode Prvc Mechanical Rate 16 FiO2 50.0 Tidal Volume 50 PEEP 5 Sodium 145 Potassium 4.0 Chloride 110 H Carbon Dioxide 23 Anion Gap 16 BUN 57 H Creatinine 1.8 H Est GFR ( Amer) 46 Est GFR (Non-Af Amer) 38 POC Glucose (mg/dL) 213 H Random Glucose 257 H Calcium 7.9 L Phosphorus 3.9 Magnesium 2.8 H Total Bilirubin 0.7 AST 42 ALT 34 Alkaline Phosphatase 67 Total Protein 6.6 Albumin 3.3 L Globulin 3.3 Albumin/Globulin Ratio 1.0 Urine Opiates Screen Urine Methadone Screen Ur Barbiturates Screen Ur Phencyclidine Scrn Ur Amphetamines Screen U Benzodiazepines Scrn U Oth Cocaine Metabols U Cannabinoids Screen Mycoplasma pneumon IgM 01/18/18 01/18/18 01/18/18 06:33 10:45 11:34 WBC 9.7 RBC 4.44 Hgb 13.9 Hct 41.3 MCV 93.1 MCH 31.2 H MCHC 33.5 RDW 13.5 Plt Count 171 MPV 12.0 H Neut % (Auto) 71.3 Lymph % (Auto) 16.4 L [place] % (Auto) 11.9 H Eos % (Auto) 0.1 Baso % (Auto) 0.3 Neut # (Auto) 6.9 Lymph # (Auto) 1.6 [place] # (Auto) 1.1 H Eos # (Auto) 0.0 Baso # (Auto) 0.0 Puncture Site pCO2 pO2 HCO3 ABG pH ABG Total CO2 ABG O2 Saturation ABG Base Excess ABG Hemoglobin ABG Carboxyhemoglobin POC ABG HHb (Measured) ABG Methemoglobin Jamey Test A-a O2 Difference Respiratory Index Hgb O2 Saturation Vent Mode Mechanical Rate FiO2 Tidal Volume PEEP Sodium Potassium Chloride Carbon Dioxide Anion Gap BUN Creatinine Est GFR ( Amer) Est GFR (Non-Af Amer) POC Glucose (mg/dL) 263 H Random Glucose Calcium Phosphorus Magnesium Total Bilirubin AST ALT Alkaline Phosphatase Total Protein Albumin Globulin Albumin/Globulin Ratio Urine Opiates Screen Negative Urine Methadone Screen Negative Ur Barbiturates Screen Negative Ur Phencyclidine Scrn Negative Ur Amphetamines Screen Negative U Benzodiazepines Scrn Positive U Oth Cocaine Metabols Negative U Cannabinoids Screen Negative Mycoplasma pneumon IgM Fingerstick Blood Sugar Results: 263 Assessment/Plan - Assessment and Plan (Free Text) Assessment: 67M W/ likely new onset seizures and CAP Plan: Neuro: Likely new onset seizures. Dr. Perez on consult, EEG follow up. Keppra BID, No sedation Cards: No acute issues, hx of CABG, PVD and Multiple CVA, HTN, will continue home medications Pulm: patient was actively seizing, so intubated to protect airway, requiring 40 % FiO2, CAP started Ceftriaxone Renal: Cr decreasing. on light hydration NS @ 75. Changed to protonix and heparin GI: Glucerna, diarrhea last night Endo: DM on insulin, Lantus 15 QD am PPX: Protonix and heparin <Michaelle Leroy M - Last Filed: 01/19/18 18:18> CCU Objective - Vital Signs / Intake & Output Vital Signs (Last 4 hours): Vital Signs Temp Pulse Resp BP Pulse Ox 01/19/18 17:26 169/70 H 01/19/18 16:23 78 27 H 155/65 H 96 01/19/18 16:00 76 25 H 95 01/19/18 15:23 79 29 H 153/56 H 98 01/19/18 15:00 99.9 F H 81 28 H 98 01/19/18 14:23 81 15 154/55 H 99 Intake and Output (Last 8hrs): Intake & Output 01/19/18 01/19/18 01/19/18 06:59 14:59 22:59 Intake Total 1005 527 150 Output Total 830 480 0 Balance 175 47 150 Weight 228 lb 3.108 oz Intake: Intake, IV Amount 605 127 Left AC 5 2 Left Antecubital 600 125 Tube Feeding 400 400 150 Output: Urine 830 480 Urethral (Stanley) 830 480 Stool 0 0 Emesis 0 0 - Medications Active Medications: Active Medications Generic Name Dose Route Start Last Admin Trade Name Freq PRN Reason Stop Dose Admin Acetaminophen 650 mg 01/19/18 00:50 01/19/18 12:46 Tylenol 650mg/20.3ml Solution Ud NG 650 mg Q6 PRN Administration GIVE FOR TEMP. 100*F OR ABOVE Albuterol Sulfate 2.5 mg 01/16/18 14:45 01/19/18 14:07 Albuterol 0.083% Inhal Lynne (2.5 Mg/3 Ml) Ud IH 2.5 mg RQ6 SHINE Administration Aspirin 81 mg 01/17/18 10:00 01/19/18 09:53 Aspirin Chewable PO 81 mg DAILY SHINE Administration Carvedilol 25 mg 01/16/18 18:00 01/19/18 17:26 Coreg PO 25 mg BID SHINE Administration Heparin Sodium (Porcine) 5,000 units 01/17/18 14:00 01/19/18 15:00 Heparin SC 5,000 units Q8 SHINE Administration Hydralazine HCl 50 mg 01/16/18 22:00 01/19/18 14:00 Apresoline PO 50 mg Q8 SHINE Administration Ceftriaxone Sodium 1 gm/ 100 mls @ 100 mls/hr 01/18/18 10:00 01/19/18 11:00 Sodium Chloride IVPB 100 mls/hr DAILY SHINE Administration Levetiracetam 1,000 mg/ Sodium 110 mls @ 420 mls/hr 01/17/18 16:00 01/19/18 16:30 Chloride IVPB 420 mls/hr Q12H SHINE Administration Insulin Glargine 15 unit 01/18/18 22:00 01/18/18 21:13 Lantus SC 15 u HS SHINE Administration Insulin Human Regular 0 unit 01/16/18 18:00 01/19/18 17:29 Novolin R SC 6 unit Q6 SHINE Administration Protocol Pantoprazole Sodium 40 mg 01/16/18 17:15 01/19/18 09:53 Protonix Inj IVP 40 mg DAILY SHINE Administration Rosuvastatin Calcium 10 mg 01/16/18 22:00 01/18/18 21:13 Crestor PO 10 mg HS SHINE Administration Sennosides 8.6 mg 01/17/18 14:00 01/19/18 09:53 Senokot Tab PO 8.6 mg DAILY SHINE Administration - Patient Studies Lab Studies: Microbiology Studies 01/16/18 17:36 Gram Stain - Final Trachasp Sputum Culture - Final NORMAL ORAL HALEY 01/16/18 20:18 MRSA Culture (Admit) - Final Naris MRSA NOT DETECTED 01/17/18 15:26 Urine Culture - Final Urine No Growth (<1,000 CFU/ML) 01/17/18 15:26 Blood Culture - Preliminary Blood NO GROWTH AFTER 24 HOURS 01/17/18 15:26 Blood Culture - Preliminary Blood NO GROWTH AFTER 24 HOURS Lab Studies 01/19/18 01/19/18 01/19/18 Range/Units 17:25 11:48 06:16 WBC (4.8-10.8) K/uL RBC (4.40-5.90) Mil/uL Hgb (12.0-18.0) g/dL Hct (35.0-51.0) % MCV (80.0-94.0) fL MCH (27.0-31.0) pg MCHC (33.0-37.0) g/dL RDW (11.5-14.5) % Plt Count (130-400) K/uL MPV (7.2-11.7) fL Neut % (Auto) (50.0-75.0) % Lymph % (Auto) (20.0-40.0) % [place] % (Auto) (0.0-10.0) % Eos % (Auto) (0.0-4.0) % Baso % (Auto) (0.0-2.0) % Neut # (Auto) (1.8-7.0) K/uL Lymph # (Auto) (1.0-4.3) K/uL [place] # (Auto) (0.0-0.8) K/uL Eos # (Auto) (0.0-0.7) K/uL Baso # (Auto) (0.0-0.2) K/uL Puncture Site pCO2 (35-45) mm/Hg pO2 (80-100) mm/Hg HCO3 (21-28) mmol/L ABG pH (7.35-7.45) ABG Total CO2 (22-28) mmol/L ABG O2 Saturation (95-98) % ABG Base Excess (-2.0-3.0) mmol/L ABG Hemoglobin (11.7-17.4) g/dL ABG Carboxyhemoglobin (0.5-1.5) % POC ABG HHb (Measured) (0.0-5.0) % ABG Methemoglobin (0.0-3.0) % Jamey Test A-a O2 Difference mm/Hg Respiratory Index Hgb O2 Saturation (95.0-98.0) % Vent Mode Mechanical Rate FiO2 % Tidal Volume PEEP Sodium 154 H (132-148) mmol/L Potassium 4.6 (3.6-5.2) mmol/L Chloride 118 H (98-107) mmol/L Carbon Dioxide 23 (22-30) mmol/L Anion Gap 18 (10-20) BUN 58 H (9-20) mg/dL Creatinine 1.7 H (0.8-1.5) mg/dL Est GFR ( Amer) 49 Est GFR (Non-Af Amer) 40 POC Glucose (mg/dL) 251 H 260 H (65-110) mg/dL Random Glucose 296 H (75-110) mg/dL Calcium 8.6 (8.6-10.4) mg/dl Phosphorus 3.6 (2.5-4.5) mg/dL Magnesium 3.0 H (1.6-2.3) mg/dL Total Bilirubin 0.9 (0.2-1.3) mg/dL AST 67 H D (17-59) U/L ALT 34 (21-72) U/L Alkaline Phosphatase 65 (38-126) U/L Total Protein 6.6 (6.3-8.3) g/dL Albumin 3.3 L (3.5-5.0) g/dL Globulin 3.3 (2.2-3.9) gm/dL Albumin/Globulin Ratio 1.0 (1.0-2.1) 01/19/18 01/19/18 01/19/18 Range/Units 06:16 05:50 05:10 WBC 8.0 (4.8-10.8) K/uL RBC 4.44 (4.40-5.90) Mil/uL Hgb 13.9 (12.0-18.0) g/dL Hct 41.8 (35.0-51.0) % MCV 94.2 H (80.0-94.0) fL MCH 31.3 H (27.0-31.0) pg MCHC 33.2 (33.0-37.0) g/dL RDW 13.3 (11.5-14.5) % Plt Count 156 (130-400) K/uL MPV 12.3 H (7.2-11.7) fL Neut % (Auto) 70.7 (50.0-75.0) % Lymph % (Auto) 17.9 L (20.0-40.0) % [place] % (Auto) 11.2 H (0.0-10.0) % Eos % (Auto) 0.0 (0.0-4.0) % Baso % (Auto) 0.2 (0.0-2.0) % Neut # (Auto) 5.7 (1.8-7.0) K/uL Lymph # (Auto) 1.4 (1.0-4.3) K/uL [place] # (Auto) 0.9 H (0.0-0.8) K/uL Eos # (Auto) 0.0 (0.0-0.7) K/uL Baso # (Auto) 0.0 (0.0-0.2) K/uL Puncture Site Lb pCO2 38 (35-45) mm/Hg pO2 99 (80-100) mm/Hg HCO3 21.6 (21-28) mmol/L ABG pH 7.35 (7.35-7.45) ABG Total CO2 22.2 (22-28) mmol/L ABG O2 Saturation 98.3 H (95-98) % ABG Base Excess -4.2 L (-2.0-3.0) mmol/L ABG Hemoglobin 14.1 (11.7-17.4) g/dL ABG Carboxyhemoglobin 1.5 (0.5-1.5) % POC ABG HHb (Measured) 1.7 (0.0-5.0) % ABG Methemoglobin 0.9 (0.0-3.0) % Jamey Test Na A-a O2 Difference 210.0 mm/Hg Respiratory Index 2.1 Hgb O2 Saturation 95.9 (95.0-98.0) % Vent Mode Prvc Mechanical Rate 16 FiO2 50.0 % Tidal Volume 500 PEEP 5 Sodium (132-148) mmol/L Potassium (3.6-5.2) mmol/L Chloride (98-107) mmol/L Carbon Dioxide (22-30) mmol/L Anion Gap (10-20) BUN (9-20) mg/dL Creatinine (0.8-1.5) mg/dL Est GFR ( Amer) Est GFR (Non-Af Amer) POC Glucose (mg/dL) 285 H (65-110) mg/dL Random Glucose (75-110) mg/dL Calcium (8.6-10.4) mg/dl Phosphorus (2.5-4.5) mg/dL Magnesium (1.6-2.3) mg/dL Total Bilirubin (0.2-1.3) mg/dL AST (17-59) U/L ALT (21-72) U/L Alkaline Phosphatase (38-126) U/L Total Protein (6.3-8.3) g/dL Albumin (3.5-5.0) g/dL Globulin (2.2-3.9) gm/dL Albumin/Globulin Ratio (1.0-2.1) 01/18/18 Range/Units 23:44 WBC (4.8-10.8) K/uL RBC (4.40-5.90) Mil/uL Hgb (12.0-18.0) g/dL Hct (35.0-51.0) % MCV (80.0-94.0) fL MCH (27.0-31.0) pg MCHC (33.0-37.0) g/dL RDW (11.5-14.5) % Plt Count (130-400) K/uL MPV (7.2-11.7) fL Neut % (Auto) (50.0-75.0) % Lymph % (Auto) (20.0-40.0) % [place] % (Auto) (0.0-10.0) % Eos % (Auto) (0.0-4.0) % Baso % (Auto) (0.0-2.0) % Neut # (Auto) (1.8-7.0) K/uL Lymph # (Auto) (1.0-4.3) K/uL [place] # (Auto) (0.0-0.8) K/uL Eos # (Auto) (0.0-0.7) K/uL Baso # (Auto) (0.0-0.2) K/uL Puncture Site pCO2 (35-45) mm/Hg pO2 (80-100) mm/Hg HCO3 (21-28) mmol/L ABG pH (7.35-7.45) ABG Total CO2 (22-28) mmol/L ABG O2 Saturation (95-98) % ABG Base Excess (-2.0-3.0) mmol/L ABG Hemoglobin (11.7-17.4) g/dL ABG Carboxyhemoglobin (0.5-1.5) % POC ABG HHb (Measured) (0.0-5.0) % ABG Methemoglobin (0.0-3.0) % Jamey Test A-a O2 Difference mm/Hg Respiratory Index Hgb O2 Saturation (95.0-98.0) % Vent Mode Mechanical Rate FiO2 % Tidal Volume PEEP Sodium (132-148) mmol/L Potassium (3.6-5.2) mmol/L Chloride (98-107) mmol/L Carbon Dioxide (22-30) mmol/L Anion Gap (10-20) BUN (9-20) mg/dL Creatinine (0.8-1.5) mg/dL Est GFR ( Amer) Est GFR (Non-Af Amer) POC Glucose (mg/dL) 288 H (65-110) mg/dL Random Glucose (75-110) mg/dL Calcium (8.6-10.4) mg/dl Phosphorus (2.5-4.5) mg/dL Magnesium (1.6-2.3) mg/dL Total Bilirubin (0.2-1.3) mg/dL AST (17-59) U/L ALT (21-72) U/L Alkaline Phosphatase (38-126) U/L Total Protein (6.3-8.3) g/dL Albumin (3.5-5.0) g/dL Globulin (2.2-3.9) gm/dL Albumin/Globulin Ratio (1.0-2.1) Laboratory Results - last 24 hr 01/18/18 01/19/18 01/19/18 23:44 05:10 05:50 WBC RBC Hgb Hct MCV MCH MCHC RDW Plt Count MPV Neut % (Auto) Lymph % (Auto) [place] % (Auto) Eos % (Auto) Baso % (Auto) Neut # (Auto) Lymph # (Auto) [place] # (Auto) Eos # (Auto) Baso # (Auto) Puncture Site Lb pCO2 38 pO2 99 HCO3 21.6 ABG pH 7.35 ABG Total CO2 22.2 ABG O2 Saturation 98.3 H ABG Base Excess -4.2 L ABG Hemoglobin 14.1 ABG Carboxyhemoglobin 1.5 POC ABG HHb (Measured) 1.7 ABG Methemoglobin 0.9 Jamey Test Na A-a O2 Difference 210.0 Respiratory Index 2.1 Hgb O2 Saturation 95.9 Vent Mode Prvc Mechanical Rate 16 FiO2 50.0 Tidal Volume 500 PEEP 5 Sodium Potassium Chloride Carbon Dioxide Anion Gap BUN Creatinine Est GFR ( Amer) Est GFR (Non-Af Amer) POC Glucose (mg/dL) 288 H 285 H Random Glucose Calcium Phosphorus Magnesium Total Bilirubin AST ALT Alkaline Phosphatase Total Protein Albumin Globulin Albumin/Globulin Ratio 01/19/18 01/19/18 01/19/18 06:16 06:16 11:48 WBC 8.0 RBC 4.44 Hgb 13.9 Hct 41.8 MCV 94.2 H MCH 31.3 H MCHC 33.2 RDW 13.3 Plt Count 156 MPV 12.3 H Neut % (Auto) 70.7 Lymph % (Auto) 17.9 L [place] % (Auto) 11.2 H Eos % (Auto) 0.0 Baso % (Auto) 0.2 Neut # (Auto) 5.7 Lymph # (Auto) 1.4 [place] # (Auto) 0.9 H Eos # (Auto) 0.0 Baso # (Auto) 0.0 Puncture Site pCO2 pO2 HCO3 ABG pH ABG Total CO2 ABG O2 Saturation ABG Base Excess ABG Hemoglobin ABG Carboxyhemoglobin POC ABG HHb (Measured) ABG Methemoglobin Jamey Test A-a O2 Difference Respiratory Index Hgb O2 Saturation Vent Mode Mechanical Rate FiO2 Tidal Volume PEEP Sodium 154 H Potassium 4.6 Chloride 118 H Carbon Dioxide 23 Anion Gap 18 BUN 58 H Creatinine 1.7 H Est GFR ( Amer) 49 Est GFR (Non-Af Amer) 40 POC Glucose (mg/dL) 260 H Random Glucose 296 H Calcium 8.6 Phosphorus 3.6 Magnesium 3.0 H Total Bilirubin 0.9 AST 67 H D ALT 34 Alkaline Phosphatase 65 Total Protein 6.6 Albumin 3.3 L Globulin 3.3 Albumin/Globulin Ratio 1.0 01/19/18 17:25 WBC RBC Hgb Hct MCV MCH MCHC RDW Plt Count MPV Neut % (Auto) Lymph % (Auto) [place] % (Auto) Eos % (Auto) Baso % (Auto) Neut # (Auto) Lymph # (Auto) [place] # (Auto) Eos # (Auto) Baso # (Auto) Puncture Site pCO2 pO2 HCO3 ABG pH ABG Total CO2 ABG O2 Saturation ABG Base Excess ABG Hemoglobin ABG Carboxyhemoglobin POC ABG HHb (Measured) ABG Methemoglobin Jamey Test A-a O2 Difference Respiratory Index Hgb O2 Saturation Vent Mode Mechanical Rate FiO2 Tidal Volume PEEP Sodium Potassium Chloride Carbon Dioxide Anion Gap BUN Creatinine Est GFR ( Amer) Est GFR (Non-Af Amer) POC Glucose (mg/dL) 251 H Random Glucose Calcium Phosphorus Magnesium Total Bilirubin AST ALT Alkaline Phosphatase Total Protein Albumin Globulin Albumin/Globulin Ratio Assessment/Plan - Assessment and Plan (Free Text) Assessment: Patient intubated for air way protection during seizure activity. -continue CPAP trials -when neurology confirms seizures free, cpap and extubate -continue current managment. -above resident note documents ICu management cc time 35 minutes - Date & Time Date: 01/18/18 Time: 13:00
[2018-01-18] MEDS: Azithromycin 500 MG in Sodium Chloride 0.9% 250 ML IVPB SCH (13:00)
--- NOTE | 2018-01-18 13:01 | CP.PCM.PN ---
Subjective - Date & Time of Evaluation Date of Evaluation: 01/18/18 Time of Evaluation: 10:15 - Subjective Subjective: Neurology Progress note for Dr. Perez Patient seen and examined. Patient is currently sedated despite being on very low dose Versed drip which was started early this morning. Unable to ascertain ROS. Objective - Vital Signs/Intake and Output Vital Signs (last 24 hours): Temp Pulse Resp BP Pulse Ox 98.3 F 81 17 140/57 L 99 01/18/18 12:00 01/18/18 12:00 01/18/18 12:00 01/18/18 11:23 01/18/18 12:00 Intake and Output: 01/18/18 01/18/18 06:59 18:59 Intake Total 1595 775 Output Total 945 425 Balance 650 350 - Medications Medications: Current Medications Albuterol Sulfate (Albuterol 0.083% Inhal Lynne (2.5 Mg/3 Ml) Ud) 2.5 mg IH RQ6 [facility] Last Admin: 01/18/18 07:42 Dose: 2.5 mg Aspirin (Aspirin Chewable) 81 mg PO DAILY [facility] Last Admin: 01/18/18 10:08 Dose: 81 mg Carvedilol (Coreg) 25 mg PO BID [facility] Last Admin: 01/18/18 10:09 Dose: 25 mg Heparin Sodium (Porcine) (Heparin) 5,000 units SC Q8 [facility] Last Admin: 01/18/18 06:57 Dose: 5,000 units Hydralazine HCl (Apresoline) 50 mg PO Q8 [facility] Last Admin: 01/18/18 06:57 Dose: 50 mg Sodium Chloride (Sodium Chloride 0.9%) 1,000 mls @ 75 mls/hr IV .[id number] [facility] Last Admin: 01/18/18 00:30 Dose: 75 mls/hr Azithromycin 500 mg/ Sodium (Chloride) 250 mls @ 250 mls/hr IVPB Q24H [facility] Last Admin: 01/17/18 14:02 Dose: 250 mls/hr Ceftriaxone Sodium 1 gm/ (Sodium Chloride) 100 mls @ 100 mls/hr IVPB DAILY [facility] Last Admin: 01/18/18 10:10 Dose: 100 mls/hr Levetiracetam 1,000 mg/ Sodium (Chloride) 110 mls @ 420 mls/hr IVPB Q12H [facility] Last Admin: 01/18/18 04:00 Dose: 420 mls/hr Midazolam HCl 100 mg/ Sodium (Chloride) 100 mls @ 1 mls/hr IV .Q24H [facility] PRN Reason: 1 MG/HR Last Admin: 01/18/18 03:55 Dose: 1 mls/hr Insulin Glargine (Lantus) 15 unit SC HS [facility] Insulin Human Regular (Novolin R) 0 unit SC Q6 [facility] PRN Reason: Protocol Last Admin: 01/18/18 12:43 Dose: 6 unit Pantoprazole Sodium (Protonix Inj) 40 mg IVP DAILY [facility] Last Admin: 01/18/18 10:10 Dose: 40 mg Rosuvastatin Calcium (Crestor) 10 mg PO HS [facility] Last Admin: 01/17/18 21:35 Dose: 10 mg Sennosides (Senokot Tab) 8.6 mg PO DAILY [facility] Last Admin: 01/18/18 10:11 Dose: 8.6 mg - Labs Labs: 01/18/18 06:33 01/18/18 06:33 PT 10.6 SECONDS (9.7-12.2) 01/16/18 12:27 INR 0.9 01/16/18 12:27 APTT 33 SECONDS (21-34) 01/16/18 12:27 - Constitutional Appears: No Acute Distress - Head Exam Head Exam: ATRAUMATIC, NORMOCEPHALIC - Eye Exam Pupil Exam: PERRL (sluggish) - ENT Exam ENT Exam: Mucous Membranes Moist - Respiratory Exam Respiratory Exam: Clear to Ausculation Bilateral. absent: Rales, Rhonchi, Wheezes Additional comments: on mechanical ventilation - Cardiovascular Exam Cardiovascular Exam: REGULAR RHYTHM, +S1, +S2 - GI/Abdominal Exam GI & Abdominal Exam: Soft, Normal Bowel Sounds. absent: Tenderness - Neurological Exam Additional comments: Patient is intubated and sedated. Positive corneal and gag reflex. Not responsive to painful stimuli - Skin Skin Exam: Dry, Warm Assessment and Plan - Assessment and Plan (Free Text) Assessment: This is a 67 year old male with PMHx multiple CVA which are likely contributing to his new onset seizures. Plan: 1. New onset Seizures EEG 01/17 showing diffuse slowing with some epileptical discharges in the temporal lobe. Continue Keppra 1000 mg Versed drip Initial head CT showed no acute pathologies; however significant disease seen in multiple areas of the brain due to multiple prior CVA. These prior insults are likely causing this new onset of seizures. Will continue to monitor clinical course Disposition: Patient will need an MRI. Dr. Perez will try to facilitate getting the MRI compatible ventilator from [place]. If he is unable to do so, patient will likely need to be transferred to [place]. Patient seen and discussed with Dr. Perez
[2018-01-18 17:31] LABS: LEGIONELLA AG URINE NEGATIVE (NEGATIVE)
[2018-01-18] MEDS: (Lantus) Insulin Glargine, Recombinant SC SCH (21:13)
--- NOTE | 2018-01-18 23:14 | CP.PCM.PN ---
Subjective - Date & Time of Evaluation Date of Evaluation: 01/18/18 Time of Evaluation: 19:00 - Subjective Subjective: pt seen and examined at bedside, pt remains unresponsive not on sedation, on vengtilator, no fever, chills, no involuntray movements observed however pt withdraws from pain Objective - Vital Signs/Intake and Output Vital Signs (last 24 hours): Temp Pulse Resp BP Pulse Ox 99.2 F 81 16 141/40 L 99 01/18/18 20:00 01/18/18 21:00 01/18/18 21:00 01/18/18 20:23 01/18/18 21:00 Intake and Output: 01/18/18 01/19/18 18:59 06:59 Intake Total 1711 378 Output Total 1025 400 Balance 686 -22 - Medications Medications: Current Medications Albuterol Sulfate (Albuterol 0.083% Inhal Lynne (2.5 Mg/3 Ml) Ud) 2.5 mg IH RQ6 [facility] Last Admin: 01/18/18 20:29 Dose: 2.5 mg Aspirin (Aspirin Chewable) 81 mg PO DAILY [facility] Last Admin: 01/18/18 10:08 Dose: 81 mg Carvedilol (Coreg) 25 mg PO BID [facility] Last Admin: 01/18/18 18:07 Dose: 25 mg Heparin Sodium (Porcine) (Heparin) 5,000 units SC Q8 [facility] Last Admin: 01/18/18 21:16 Dose: 5,000 units Hydralazine HCl (Apresoline) 50 mg PO Q8 [facility] Last Admin: 01/18/18 21:13 Dose: 50 mg Sodium Chloride (Sodium Chloride 0.9%) 1,000 mls @ 75 mls/hr IV .[id number] [facility] Last Admin: 01/18/18 16:53 Dose: 75 mls/hr Azithromycin 500 mg/ Sodium (Chloride) 250 mls @ 250 mls/hr IVPB Q24H [facility] Last Admin: 01/18/18 13:00 Dose: 250 mls/hr Ceftriaxone Sodium 1 gm/ (Sodium Chloride) 100 mls @ 100 mls/hr IVPB DAILY [facility] Last Admin: 01/18/18 10:10 Dose: 100 mls/hr Levetiracetam 1,000 mg/ Sodium (Chloride) 110 mls @ 420 mls/hr IVPB Q12H [facility] Last Admin: 01/18/18 15:30 Dose: 420 mls/hr Midazolam HCl 100 mg/ Sodium (Chloride) 100 mls @ 1 mls/hr IV .Q24H [facility] PRN Reason: 1 MG/HR Last Admin: 01/18/18 03:55 Dose: 1 mls/hr Insulin Glargine (Lantus) 15 unit SC HS [facility] Last Admin: 01/18/18 21:13 Dose: 15 u Insulin Human Regular (Novolin R) 0 unit SC Q6 [facility] PRN Reason: Protocol Last Admin: 01/18/18 18:06 Dose: 4 unit Pantoprazole Sodium (Protonix Inj) 40 mg IVP DAILY [facility] Last Admin: 01/18/18 10:10 Dose: 40 mg Rosuvastatin Calcium (Crestor) 10 mg PO HS [facility] Last Admin: 01/18/18 21:13 Dose: 10 mg Sennosides (Senokot Tab) 8.6 mg PO DAILY [facility] Last Admin: 01/18/18 10:11 Dose: 8.6 mg - Labs Labs: 01/18/18 06:33 01/18/18 06:33 PT 10.6 SECONDS (9.7-12.2) 01/16/18 12:27 INR 0.9 01/16/18 12:27 APTT 33 SECONDS (21-34) 01/16/18 12:27 - Constitutional Appears: No Acute Distress - Head Exam Head Exam: ATRAUMATIC, NORMAL INSPECTION, NORMOCEPHALIC - Eye Exam Eye Exam: PERRL - ENT Exam ENT Exam: Mucous Membranes Moist, Normal Exam - Respiratory Exam Respiratory Exam: Decreased Breath Sounds, Rales - Cardiovascular Exam Cardiovascular Exam: REGULAR RHYTHM, +S1, +S2 - GI/Abdominal Exam GI & Abdominal Exam: Soft, Normal Bowel Sounds. absent: Tenderness Assessment and Plan (1) Status epilepticus Status: Acute (2) COPD (chronic obstructive pulmonary disease) Status: Acute (3) Congestive heart failure Status: Acute (4) Diabetes Status: Acute
[2018-01-19] MEDS: (Novolin R) Insulin Human Regular 100 units/ml vial SC SCH ×5 (00:21→23:50)
[2018-01-19] MEDS: Acetaminophen 650mg/20.3ml solution UD NG PRN ×2 (01:09→12:46)
[2018-01-19] MEDS: Albuterol 0.083% Inhal Sol (2.5 mg/3 mL) UD IH SCH ×4 (01:16→21:01)
[2018-01-19] MEDS: Sodium Chloride 0.9% 1,000 ML IV SCH ×2 (02:58→07:36)
[2018-01-19] MEDS: levETIRAcetam 1,000 MG in Sodium Chloride 0.9% 100 ML IVPB SCH ×2 (04:00→16:30)
[2018-01-19 05:52] LABS: ARTERIAL BLOOD GAS HCO3 21.6 mmol/L (21-28); ARTERIAL BLOOD GAS HEMOGLOBIN 14.1 g/dL (11.7-17.4); ARTERIAL BLOOD GAS O2 SAT 98.3 % (95-98); ARTERIAL BLOOD GAS PCO2 38 mm/Hg (35-45); ARTERIAL BLOOD GAS PH 7.35 (7.35-7.45); ARTERIAL BLOOD GAS PO2 99 mm/Hg (80-100); ARTERIAL BLOOD GAS TCO2 22.2 mmol/L (22-28)
[2018-01-19 06:22] LABS: BASO % 0.2 % (0.0-2.0); HEMOGLOBIN 13.9 g/dL (12.0-18.0); LYMPH # 1.4 K/uL (1.0-4.3); LYMPH % 17.9 % (20.0-40.0); MEAN CELL VOLUME 94.2 fL (80.0-94.0); MEAN CORPUSCULAR HEMOGLOBIN 31.3 pg (27.0-31.0); MEAN CORPUSCULAR HGB CONC 33.2 g/dL (33.0-37.0); MEAN PLATELET VOLUME 12.3 fL (7.2-11.7); MONO # 0.9 K/uL (0.0-0.8); MONO % 11.2 % (0.0-10.0); NEUT # 5.7 K/uL (1.8-7.0); NEUT % 70.7 % (50.0-75.0); NRBC % 0.1 % (0.0-2.0); RBC 4.44 Mil/uL (4.40-5.90); RED CELL DISTRIBUTION WIDTH 13.3 % (11.5-14.5)
[2018-01-19 06:45] LABS: ALBUMIN 3.3 g/dL (3.5-5.0); CALCIUM 8.6 mg/dl (8.6-10.4)
[2018-01-19] MEDS: Midazolam 50 mg/10 ml 100 MG in Sodium Chloride 0.9% 80 ML IV SCH ×2 (07:12→09:54)
--- NOTE | 2018-01-19 10:49 | RAD ---
HISTORY: PNA COMPARISON: 01/18/2018 FINDINGS: LUNGS: Patchy opacity at left base, infiltrate versus atelectasis. No abnormal opacity elsewhere. Follow-up advised. Opacity in upper right tyson thorax on prior examination not evident currently. This may have been at least partially artifactual due to overlying medical equipment. PLEURA: Possible small left pleural effusion. No right pleural effusion. No pneumothorax. CARDIOVASCULAR: Normal heart size. Endotracheal tube and nasogastric tube unchanged. OSSEOUS STRUCTURES: No significant abnormalities. VISUALIZED UPPER ABDOMEN: Normal. OTHER FINDINGS: None. IMPRESSION: Patchy opacity at left base. Followup to exclude pneumonia. Possible small left pleural effusion. Lines and tubes unchanged.
--- NOTE | 2018-01-19 12:05 | CP.CCUPN ---
<Navin Rodriguez - Last Filed: 01/19/18 17:17> CCU Subjective - Physician Review Subjective (Free Text): 01/17/18 12:23 Patient seen and examined at bedside EEG today Diprivan stopped at midnight 01/17/18 15:28 Fever 101 Su culture 01/18/18 12:56 patient seen and examined at bedside EEG showed focal epileptic activity keppra increased to 1000 BID and Versed drip Repeat EEG ordered 01/19/18 11:59 Patient waiting for [facility] [place] [facility] Follow up EEG CPAP today tolerating well Gag and corneal reflex continue versed for nonconvulsive seizures 01/19/18 17:17 Discontinue Versed Drip per Neuro. Patient is more awake now, moving legs CCU Objective - Vital Signs / Intake & Output Vital Signs (Last 4 hours): Vital Signs Temp Pulse Resp BP Pulse Ox 01/19/18 09:53 153/69 H 01/19/18 09:23 86 19 153/69 H 01/19/18 09:00 99 F 83 19 97 01/19/18 08:23 87 16 163/74 H 99 01/19/18 08:00 83 16 99 Intake and Output (Last 8hrs): Intake & Output 01/18/18 01/19/18 01/19/18 22:59 06:59 14:59 Intake Total 1008 1005 125 Output Total 925 830 60 Balance 83 175 65 Weight 228 lb 3.108 oz Intake: Intake, IV Amount 608 605 75 Left AC 8 5 0 Left Antecubital 600 600 75 Tube Feeding 400 400 50 Output: Urine 925 830 60 Urethral (Stanley) 925 830 60 - Physical Exam Head: Positive for: Atraumatic, Normocephalic Pupils: Positive for: Other (corneal reflex) Neck: Positive for: Normal Range of Motion Respiratory/Chest: Positive for: Clear to Auscultation Cardiovascular: Positive for: Regular Rate and Rhythm Abdomen: Positive for: Normal Bowel Sounds. Negative for: Tenderness, Distention, Peritoneal Signs Neurological: Positive for: Other (gag and corneal, no response to pain) - Medications Active Medications: Active Medications Generic Name Dose Route Start Last Admin Trade Name Freq PRN Reason Stop Dose Admin Acetaminophen 650 mg 01/19/18 00:50 01/19/18 01:09 Tylenol 650mg/20.3ml Solution Ud NG 650 mg Q6 PRN Administration GIVE FOR TEMP. 100*F OR ABOVE Albuterol Sulfate 2.5 mg 01/16/18 14:45 01/19/18 07:56 Albuterol 0.083% Inhal Lynne (2.5 Mg/3 Ml) Ud IH Not Given RQ6 SHINE Aspirin 81 mg 01/17/18 10:00 01/19/18 09:53 Aspirin Chewable PO 81 mg DAILY SHINE Administration Carvedilol 25 mg 01/16/18 18:00 01/19/18 09:53 Coreg PO 25 mg BID SHINE Administration Heparin Sodium (Porcine) 5,000 units 01/17/18 14:00 01/19/18 05:51 Heparin SC 5,000 units Q8 SHINE Administration Hydralazine HCl 50 mg 01/16/18 22:00 01/19/18 05:51 Apresoline PO 50 mg Q8 SHINE Administration Ceftriaxone Sodium 1 gm/ 100 mls @ 100 mls/hr 01/18/18 10:00 01/18/18 10:10 Sodium Chloride IVPB 100 mls/hr DAILY SHIEN Administration Levetiracetam 1,000 mg/ Sodium 110 mls @ 420 mls/hr 01/17/18 16:00 01/19/18 04:00 Chloride IVPB 420 mls/hr Q12H SHINE Administration Midazolam HCl 100 mg/ Sodium 100 mls @ 1 mls/hr 01/18/18 03:00 01/19/18 09:54 Chloride IV 1 mls/hr .Q24H SHINE Administration 1 MG/HR Insulin Glargine 15 unit 01/18/18 22:00 01/18/18 21:13 Lantus SC 15 u HS SHINE Administration Insulin Human Regular 0 unit 01/16/18 18:00 01/19/18 05:55 Novolin R SC 6 unit Q6 SHINE Administration Protocol Pantoprazole Sodium 40 mg 01/16/18 17:15 01/19/18 09:53 Protonix Inj IVP 40 mg DAILY SHINE Administration Rosuvastatin Calcium 10 mg 01/16/18 22:00 01/18/18 21:13 Crestor PO 10 mg HS SHINE Administration Sennosides 8.6 mg 01/17/18 14:00 01/19/18 09:53 Senokot Tab PO 8.6 mg DAILY SHINE Administration - Patient Studies Lab Studies: Microbiology Studies 01/16/18 20:18 MRSA Culture (Admit) - Final Naris MRSA NOT DETECTED 01/17/18 15:26 Urine Culture - Final Urine No Growth (<1,000 CFU/ML) 01/17/18 15:26 Blood Culture - Preliminary Blood NO GROWTH AFTER 24 HOURS 01/17/18 15:26 Blood Culture - Preliminary Blood NO GROWTH AFTER 24 HOURS Lab Studies 01/19/18 01/19/18 01/19/18 Range/Units 06:16 06:16 05:50 WBC 8.0 (4.8-10.8) K/uL RBC 4.44 (4.40-5.90) Mil/uL Hgb 13.9 (12.0-18.0) g/dL Hct 41.8 (35.0-51.0) % MCV 94.2 H (80.0-94.0) fL MCH 31.3 H (27.0-31.0) pg MCHC 33.2 (33.0-37.0) g/dL RDW 13.3 (11.5-14.5) % Plt Count 156 (130-400) K/uL MPV 12.3 H (7.2-11.7) fL Neut % (Auto) 70.7 (50.0-75.0) % Lymph % (Auto) 17.9 L (20.0-40.0) % [place] % (Auto) 11.2 H (0.0-10.0) % Eos % (Auto) 0.0 (0.0-4.0) % Baso % (Auto) 0.2 (0.0-2.0) % Neut # (Auto) 5.7 (1.8-7.0) K/uL Lymph # (Auto) 1.4 (1.0-4.3) K/uL [place] # (Auto) 0.9 H (0.0-0.8) K/uL Eos # (Auto) 0.0 (0.0-0.7) K/uL Baso # (Auto) 0.0 (0.0-0.2) K/uL Puncture Site pCO2 (35-45) mm/Hg pO2 (80-100) mm/Hg HCO3 (21-28) mmol/L ABG pH (7.35-7.45) ABG Total CO2 (22-28) mmol/L ABG O2 Saturation (95-98) % ABG Base Excess (-2.0-3.0) mmol/L ABG Hemoglobin (11.7-17.4) g/dL ABG Carboxyhemoglobin (0.5-1.5) % POC ABG HHb (Measured) (0.0-5.0) % ABG Methemoglobin (0.0-3.0) % Jamey Test A-a O2 Difference mm/Hg Respiratory Index Hgb O2 Saturation (95.0-98.0) % Vent Mode Mechanical Rate FiO2 % Tidal Volume PEEP Sodium 154 H (132-148) mmol/L Potassium 4.6 (3.6-5.2) mmol/L Chloride 118 H (98-107) mmol/L Carbon Dioxide 23 (22-30) mmol/L Anion Gap 18 (10-20) BUN 58 H (9-20) mg/dL Creatinine 1.7 H (0.8-1.5) mg/dL Est GFR ( Amer) 49 Est GFR (Non-Af Amer) 40 POC Glucose (mg/dL) 285 H (65-110) mg/dL Random Glucose 296 H (75-110) mg/dL Calcium 8.6 (8.6-10.4) mg/dl Phosphorus 3.6 (2.5-4.5) mg/dL Magnesium 3.0 H (1.6-2.3) mg/dL Total Bilirubin 0.9 (0.2-1.3) mg/dL AST 67 H D (17-59) U/L ALT 34 (21-72) U/L Alkaline Phosphatase 65 (38-126) U/L Total Protein 6.6 (6.3-8.3) g/dL Albumin 3.3 L (3.5-5.0) g/dL Globulin 3.3 (2.2-3.9) gm/dL Albumin/Globulin Ratio 1.0 (1.0-2.1) Ur L.pneumophila Ag (NEGATIVE) 01/19/18 01/18/18 01/18/18 Range/Units 05:10 23:44 17:43 WBC (4.8-10.8) K/uL RBC (4.40-5.90) Mil/uL Hgb (12.0-18.0) g/dL Hct (35.0-51.0) % MCV (80.0-94.0) fL MCH (27.0-31.0) pg MCHC (33.0-37.0) g/dL RDW (11.5-14.5) % Plt Count (130-400) K/uL MPV (7.2-11.7) fL Neut % (Auto) (50.0-75.0) % Lymph % (Auto) (20.0-40.0) % [place] % (Auto) (0.0-10.0) % Eos % (Auto) (0.0-4.0) % Baso % (Auto) (0.0-2.0) % Neut # (Auto) (1.8-7.0) K/uL Lymph # (Auto) (1.0-4.3) K/uL [place] # (Auto) (0.0-0.8) K/uL Eos # (Auto) (0.0-0.7) K/uL Baso # (Auto) (0.0-0.2) K/uL Puncture Site Lb pCO2 38 (35-45) mm/Hg pO2 99 (80-100) mm/Hg HCO3 21.6 (21-28) mmol/L ABG pH 7.35 (7.35-7.45) ABG Total CO2 22.2 (22-28) mmol/L ABG O2 Saturation 98.3 H (95-98) % ABG Base Excess -4.2 L (-2.0-3.0) mmol/L ABG Hemoglobin 14.1 (11.7-17.4) g/dL ABG Carboxyhemoglobin 1.5 (0.5-1.5) % POC ABG HHb (Measured) 1.7 (0.0-5.0) % ABG Methemoglobin 0.9 (0.0-3.0) % Jamey Test Na A-a O2 Difference 210.0 mm/Hg Respiratory Index 2.1 Hgb O2 Saturation 95.9 (95.0-98.0) % Vent Mode Prvc Mechanical Rate 16 FiO2 50.0 % Tidal Volume 500 PEEP 5 Sodium (132-148) mmol/L Potassium (3.6-5.2) mmol/L Chloride (98-107) mmol/L Carbon Dioxide (22-30) mmol/L Anion Gap (10-20) BUN (9-20) mg/dL Creatinine (0.8-1.5) mg/dL Est GFR ( Amer) Est GFR (Non-Af Amer) POC Glucose (mg/dL) 288 H 237 H (65-110) mg/dL Random Glucose (75-110) mg/dL Calcium (8.6-10.4) mg/dl Phosphorus (2.5-4.5) mg/dL Magnesium (1.6-2.3) mg/dL Total Bilirubin (0.2-1.3) mg/dL AST (17-59) U/L ALT (21-72) U/L Alkaline Phosphatase (38-126) U/L Total Protein (6.3-8.3) g/dL Albumin (3.5-5.0) g/dL Globulin (2.2-3.9) gm/dL Albumin/Globulin Ratio (1.0-2.1) Ur L.pneumophila Ag (NEGATIVE) 01/17/18 Range/Units 15:02 WBC (4.8-10.8) K/uL RBC (4.40-5.90) Mil/uL Hgb (12.0-18.0) g/dL Hct (35.0-51.0) % MCV (80.0-94.0) fL MCH (27.0-31.0) pg MCHC (33.0-37.0) g/dL RDW (11.5-14.5) % Plt Count (130-400) K/uL MPV (7.2-11.7) fL Neut % (Auto) (50.0-75.0) % Lymph % (Auto) (20.0-40.0) % [place] % (Auto) (0.0-10.0) % Eos % (Auto) (0.0-4.0) % Baso % (Auto) (0.0-2.0) % Neut # (Auto) (1.8-7.0) K/uL Lymph # (Auto) (1.0-4.3) K/uL [place] # (Auto) (0.0-0.8) K/uL Eos # (Auto) (0.0-0.7) K/uL Baso # (Auto) (0.0-0.2) K/uL Puncture Site pCO2 (35-45) mm/Hg pO2 (80-100) mm/Hg HCO3 (21-28) mmol/L ABG pH (7.35-7.45) ABG Total CO2 (22-28) mmol/L ABG O2 Saturation (95-98) % ABG Base Excess (-2.0-3.0) mmol/L ABG Hemoglobin (11.7-17.4) g/dL ABG Carboxyhemoglobin (0.5-1.5) % POC ABG HHb (Measured) (0.0-5.0) % ABG Methemoglobin (0.0-3.0) % Jamey Test A-a O2 Difference mm/Hg Respiratory Index Hgb O2 Saturation (95.0-98.0) % Vent Mode Mechanical Rate FiO2 % Tidal Volume PEEP Sodium (132-148) mmol/L Potassium (3.6-5.2) mmol/L Chloride (98-107) mmol/L Carbon Dioxide (22-30) mmol/L Anion Gap (10-20) BUN (9-20) mg/dL Creatinine (0.8-1.5) mg/dL Est GFR ( Amer) Est GFR (Non-Af Amer) POC Glucose (mg/dL) (65-110) mg/dL Random Glucose (75-110) mg/dL Calcium (8.6-10.4) mg/dl Phosphorus (2.5-4.5) mg/dL Magnesium (1.6-2.3) mg/dL Total Bilirubin (0.2-1.3) mg/dL AST (17-59) U/L ALT (21-72) U/L Alkaline Phosphatase (38-126) U/L Total Protein (6.3-8.3) g/dL Albumin (3.5-5.0) g/dL Globulin (2.2-3.9) gm/dL Albumin/Globulin Ratio (1.0-2.1) Ur L.pneumophila Ag Negative (NEGATIVE) Laboratory Results - last 24 hr 01/17/18 01/18/18 01/18/18 15:02 17:43 23:44 WBC RBC Hgb Hct MCV MCH MCHC RDW Plt Count MPV Neut % (Auto) Lymph % (Auto) [place] % (Auto) Eos % (Auto) Baso % (Auto) Neut # (Auto) Lymph # (Auto) [place] # (Auto) Eos # (Auto) Baso # (Auto) Puncture Site pCO2 pO2 HCO3 ABG pH ABG Total CO2 ABG O2 Saturation ABG Base Excess ABG Hemoglobin ABG Carboxyhemoglobin POC ABG HHb (Measured) ABG Methemoglobin Jamey Test A-a O2 Difference Respiratory Index Hgb O2 Saturation Vent Mode Mechanical Rate FiO2 Tidal Volume PEEP Sodium Potassium Chloride Carbon Dioxide Anion Gap BUN Creatinine Est GFR ( Amer) Est GFR (Non-Af Amer) POC Glucose (mg/dL) 237 H 288 H Random Glucose Calcium Phosphorus Magnesium Total Bilirubin AST ALT Alkaline Phosphatase Total Protein Albumin Globulin Albumin/Globulin Ratio Ur L.pneumophila Ag Negative 01/19/18 01/19/18 01/19/18 05:10 05:50 06:16 WBC 8.0 RBC 4.44 Hgb 13.9 Hct 41.8 MCV 94.2 H MCH 31.3 H MCHC 33.2 RDW 13.3 Plt Count 156 MPV 12.3 H Neut % (Auto) 70.7 Lymph % (Auto) 17.9 L [place] % (Auto) 11.2 H Eos % (Auto) 0.0 Baso % (Auto) 0.2 Neut # (Auto) 5.7 Lymph # (Auto) 1.4 [place] # (Auto) 0.9 H Eos # (Auto) 0.0 Baso # (Auto) 0.0 Puncture Site Lb pCO2 38 pO2 99 HCO3 21.6 ABG pH 7.35 ABG Total CO2 22.2 ABG O2 Saturation 98.3 H ABG Base Excess -4.2 L ABG Hemoglobin 14.1 ABG Carboxyhemoglobin 1.5 POC ABG HHb (Measured) 1.7 ABG Methemoglobin 0.9 Jamey Test Na A-a O2 Difference 210.0 Respiratory Index 2.1 Hgb O2 Saturation 95.9 Vent Mode Prvc Mechanical Rate 16 FiO2 50.0 Tidal Volume 500 PEEP 5 Sodium Potassium Chloride Carbon Dioxide Anion Gap BUN Creatinine Est GFR ( Amer) Est GFR (Non-Af Amer) POC Glucose (mg/dL) 285 H Random Glucose Calcium Phosphorus Magnesium Total Bilirubin AST ALT Alkaline Phosphatase Total Protein Albumin Globulin Albumin/Globulin Ratio Ur L.pneumophila Ag 01/19/18 06:16 WBC RBC Hgb Hct MCV MCH MCHC RDW Plt Count MPV Neut % (Auto) Lymph % (Auto) [place] % (Auto) Eos % (Auto) Baso % (Auto) Neut # (Auto) Lymph # (Auto) [place] # (Auto) Eos # (Auto) Baso # (Auto) Puncture Site pCO2 pO2 HCO3 ABG pH ABG Total CO2 ABG O2 Saturation ABG Base Excess ABG Hemoglobin ABG Carboxyhemoglobin POC ABG HHb (Measured) ABG Methemoglobin Jamey Test A-a O2 Difference Respiratory Index Hgb O2 Saturation Vent Mode Mechanical Rate FiO2 Tidal Volume PEEP Sodium 154 H Potassium 4.6 Chloride 118 H Carbon Dioxide 23 Anion Gap 18 BUN 58 H Creatinine 1.7 H Est GFR ( Amer) 49 Est GFR (Non-Af Amer) 40 POC Glucose (mg/dL) Random Glucose 296 H Calcium 8.6 Phosphorus 3.6 Magnesium 3.0 H Total Bilirubin 0.9 AST 67 H D ALT 34 Alkaline Phosphatase 65 Total Protein 6.6 Albumin 3.3 L Globulin 3.3 Albumin/Globulin Ratio 1.0 Ur L.pneumophila Ag Fingerstick Blood Sugar Results: 285 Assessment/Plan - Assessment and Plan (Free Text) Assessment: 67M W/ likely new onset seizures and CAP Plan: Neuro: Likely new onset seizures. Dr. Perez on consult, EEG follow up. Nina GUERRA. Versed for EEG showing epileptiform activity, nonconvulsive Cards: No acute issues, hx of CABG, PVD and Multiple CVA, HTN, will continue home medications Pulm: patient was actively seizing, so intubated to protect airway, requiring 40 % FiO2, CAP started Ceftriaxone Renal: Cr decreasing. on light hydration NS @ 75. Changed to protonix and heparin GI: Glucerna, diarrhea last night Endo: DM on insulin, Lantus 15 QD am PPX: Protonix and heparin Neuro plan is to transfer patient [facility] [place] for MRI and 24hr EEG <Michaelle Leroy - Last Filed: 01/19/18 18:19> CCU Objective - Vital Signs / Intake & Output Vital Signs (Last 4 hours): Vital Signs Temp Pulse Resp BP Pulse Ox 01/19/18 17:26 169/70 H 01/19/18 16:23 78 27 H 155/65 H 96 01/19/18 16:00 76 25 H 95 01/19/18 15:23 79 29 H 153/56 H 98 01/19/18 15:00 99.9 F H 81 28 H 98 01/19/18 14:23 81 15 154/55 H 99 Intake and Output (Last 8hrs): Intake & Output 01/19/18 01/19/18 01/19/18 06:59 14:59 22:59 Intake Total 1005 527 150 Output Total 830 480 0 Balance 175 47 150 Weight 228 lb 3.108 oz Intake: Intake, IV Amount 605 127 Left AC 5 2 Left Antecubital 600 125 Tube Feeding 400 400 150 Output: Urine 830 480 Urethral (Stanley) 830 480 Stool 0 0 Emesis 0 0 - Medications Active Medications: Active Medications Generic Name Dose Route Start Last Admin Trade Name Freq PRN Reason Stop Dose Admin Acetaminophen 650 mg 01/19/18 00:50 01/19/18 12:46 Tylenol 650mg/20.3ml Solution Ud NG 650 mg Q6 PRN Administration GIVE FOR TEMP. 100*F OR ABOVE Albuterol Sulfate 2.5 mg 01/16/18 14:45 01/19/18 14:07 Albuterol 0.083% Inhal Lynne (2.5 Mg/3 Ml) Ud IH 2.5 mg RQ6 SHINE Administration Aspirin 81 mg 01/17/18 10:00 01/19/18 09:53 Aspirin Chewable PO 81 mg DAILY SHINE Administration Carvedilol 25 mg 01/16/18 18:00 01/19/18 17:26 Coreg PO 25 mg BID SHINE Administration Heparin Sodium (Porcine) 5,000 units 01/17/18 14:00 01/19/18 15:00 Heparin SC 5,000 units Q8 SHINE Administration Hydralazine HCl 50 mg 01/16/18 22:00 01/19/18 14:00 Apresoline PO 50 mg Q8 SHINE Administration Ceftriaxone Sodium 1 gm/ 100 mls @ 100 mls/hr 01/18/18 10:00 01/19/18 11:00 Sodium Chloride IVPB 100 mls/hr DAILY SHINE Administration Levetiracetam 1,000 mg/ Sodium 110 mls @ 420 mls/hr 01/17/18 16:00 01/19/18 16:30 Chloride IVPB 420 mls/hr Q12H SHINE Administration Insulin Glargine 15 unit 01/18/18 22:00 01/18/18 21:13 Lantus SC 15 u HS SHINE Administration Insulin Human Regular 0 unit 01/16/18 18:00 01/19/18 17:29 Novolin R SC 6 unit Q6 SHINE Administration Protocol Pantoprazole Sodium 40 mg 01/16/18 17:15 01/19/18 09:53 Protonix Inj IVP 40 mg DAILY SHINE Administration Rosuvastatin Calcium 10 mg 01/16/18 22:00 01/18/18 21:13 Crestor PO 10 mg HS SHINE Administration Sennosides 8.6 mg 01/17/18 14:00 01/19/18 09:53 Senokot Tab PO 8.6 mg DAILY SHINE Administration - Patient Studies Lab Studies: Microbiology Studies 01/16/18 17:36 Gram Stain - Final Trachasp Sputum Culture - Final NORMAL ORAL HALEY 01/16/18 20:18 MRSA Culture (Admit) - Final Naris MRSA NOT DETECTED 01/17/18 15:26 Urine Culture - Final Urine No Growth (<1,000 CFU/ML) 01/17/18 15:26 Blood Culture - Preliminary Blood NO GROWTH AFTER 24 HOURS 01/17/18 15:26 Blood Culture - Preliminary Blood NO GROWTH AFTER 24 HOURS Lab Studies 01/19/18 01/19/18 01/19/18 Range/Units 17:25 11:48 06:16 WBC (4.8-10.8) K/uL RBC (4.40-5.90) Mil/uL Hgb (12.0-18.0) g/dL Hct (35.0-51.0) % MCV (80.0-94.0) fL MCH (27.0-31.0) pg MCHC (33.0-37.0) g/dL RDW (11.5-14.5) % Plt Count (130-400) K/uL MPV (7.2-11.7) fL Neut % (Auto) (50.0-75.0) % Lymph % (Auto) (20.0-40.0) % [place] % (Auto) (0.0-10.0) % Eos % (Auto) (0.0-4.0) % Baso % (Auto) (0.0-2.0) % Neut # (Auto) (1.8-7.0) K/uL Lymph # (Auto) (1.0-4.3) K/uL [place] # (Auto) (0.0-0.8) K/uL Eos # (Auto) (0.0-0.7) K/uL Baso # (Auto) (0.0-0.2) K/uL Puncture Site pCO2 (35-45) mm/Hg pO2 (80-100) mm/Hg HCO3 (21-28) mmol/L ABG pH (7.35-7.45) ABG Total CO2 (22-28) mmol/L ABG O2 Saturation (95-98) % ABG Base Excess (-2.0-3.0) mmol/L ABG Hemoglobin (11.7-17.4) g/dL ABG Carboxyhemoglobin (0.5-1.5) % POC ABG HHb (Measured) (0.0-5.0) % ABG Methemoglobin (0.0-3.0) % Jamey Test A-a O2 Difference mm/Hg Respiratory Index Hgb O2 Saturation (95.0-98.0) % Vent Mode Mechanical Rate FiO2 % Tidal Volume PEEP Sodium 154 H (132-148) mmol/L Potassium 4.6 (3.6-5.2) mmol/L Chloride 118 H (98-107) mmol/L Carbon Dioxide 23 (22-30) mmol/L Anion Gap 18 (10-20) BUN 58 H (9-20) mg/dL Creatinine 1.7 H (0.8-1.5) mg/dL Est GFR ( Amer) 49 Est GFR (Non-Af Amer) 40 POC Glucose (mg/dL) 251 H 260 H (65-110) mg/dL Random Glucose 296 H (75-110) mg/dL Calcium 8.6 (8.6-10.4) mg/dl Phosphorus 3.6 (2.5-4.5) mg/dL Magnesium 3.0 H (1.6-2.3) mg/dL Total Bilirubin 0.9 (0.2-1.3) mg/dL AST 67 H D (17-59) U/L ALT 34 (21-72) U/L Alkaline Phosphatase 65 (38-126) U/L Total Protein 6.6 (6.3-8.3) g/dL Albumin 3.3 L (3.5-5.0) g/dL Globulin 3.3 (2.2-3.9) gm/dL Albumin/Globulin Ratio 1.0 (1.0-2.1) 01/19/18 01/19/18 01/19/18 Range/Units 06:16 05:50 05:10 WBC 8.0 (4.8-10.8) K/uL RBC 4.44 (4.40-5.90) Mil/uL Hgb 13.9 (12.0-18.0) g/dL Hct 41.8 (35.0-51.0) % MCV 94.2 H (80.0-94.0) fL MCH 31.3 H (27.0-31.0) pg MCHC 33.2 (33.0-37.0) g/dL RDW 13.3 (11.5-14.5) % Plt Count 156 (130-400) K/uL MPV 12.3 H (7.2-11.7) fL Neut % (Auto) 70.7 (50.0-75.0) % Lymph % (Auto) 17.9 L (20.0-40.0) % [place] % (Auto) 11.2 H (0.0-10.0) % Eos % (Auto) 0.0 (0.0-4.0) % Baso % (Auto) 0.2 (0.0-2.0) % Neut # (Auto) 5.7 (1.8-7.0) K/uL Lymph # (Auto) 1.4 (1.0-4.3) K/uL [place] # (Auto) 0.9 H (0.0-0.8) K/uL Eos # (Auto) 0.0 (0.0-0.7) K/uL Baso # (Auto) 0.0 (0.0-0.2) K/uL Puncture Site Lb pCO2 38 (35-45) mm/Hg pO2 99 (80-100) mm/Hg HCO3 21.6 (21-28) mmol/L ABG pH 7.35 (7.35-7.45) ABG Total CO2 22.2 (22-28) mmol/L ABG O2 Saturation 98.3 H (95-98) % ABG Base Excess -4.2 L (-2.0-3.0) mmol/L ABG Hemoglobin 14.1 (11.7-17.4) g/dL ABG Carboxyhemoglobin 1.5 (0.5-1.5) % POC ABG HHb (Measured) 1.7 (0.0-5.0) % ABG Methemoglobin 0.9 (0.0-3.0) % Jamey Test Na A-a O2 Difference 210.0 mm/Hg Respiratory Index 2.1 Hgb O2 Saturation 95.9 (95.0-98.0) % Vent Mode Prvc Mechanical Rate 16 FiO2 50.0 % Tidal Volume 500 PEEP 5 Sodium (132-148) mmol/L Potassium (3.6-5.2) mmol/L Chloride (98-107) mmol/L Carbon Dioxide (22-30) mmol/L Anion Gap (10-20) BUN (9-20) mg/dL Creatinine (0.8-1.5) mg/dL Est GFR ( Amer) Est GFR (Non-Af Amer) POC Glucose (mg/dL) 285 H (65-110) mg/dL Random Glucose (75-110) mg/dL Calcium (8.6-10.4) mg/dl Phosphorus (2.5-4.5) mg/dL Magnesium (1.6-2.3) mg/dL Total Bilirubin (0.2-1.3) mg/dL AST (17-59) U/L ALT (21-72) U/L Alkaline Phosphatase (38-126) U/L Total Protein (6.3-8.3) g/dL Albumin (3.5-5.0) g/dL Globulin (2.2-3.9) gm/dL Albumin/Globulin Ratio (1.0-2.1) 01/18/18 Range/Units 23:44 WBC (4.8-10.8) K/uL RBC (4.40-5.90) Mil/uL Hgb (12.0-18.0) g/dL Hct (35.0-51.0) % MCV (80.0-94.0) fL MCH (27.0-31.0) pg MCHC (33.0-37.0) g/dL RDW (11.5-14.5) % Plt Count (130-400) K/uL MPV (7.2-11.7) fL Neut % (Auto) (50.0-75.0) % Lymph % (Auto) (20.0-40.0) % [place] % (Auto) (0.0-10.0) % Eos % (Auto) (0.0-4.0) % Baso % (Auto) (0.0-2.0) % Neut # (Auto) (1.8-7.0) K/uL Lymph # (Auto) (1.0-4.3) K/uL [place] # (Auto) (0.0-0.8) K/uL Eos # (Auto) (0.0-0.7) K/uL Baso # (Auto) (0.0-0.2) K/uL Puncture Site pCO2 (35-45) mm/Hg pO2 (80-100) mm/Hg HCO3 (21-28) mmol/L ABG pH (7.35-7.45) ABG Total CO2 (22-28) mmol/L ABG O2 Saturation (95-98) % ABG Base Excess (-2.0-3.0) mmol/L ABG Hemoglobin (11.7-17.4) g/dL ABG Carboxyhemoglobin (0.5-1.5) % POC ABG HHb (Measured) (0.0-5.0) % ABG Methemoglobin (0.0-3.0) % Jamey Test A-a O2 Difference mm/Hg Respiratory Index Hgb O2 Saturation (95.0-98.0) % Vent Mode Mechanical Rate FiO2 % Tidal Volume PEEP Sodium (132-148) mmol/L Potassium (3.6-5.2) mmol/L Chloride (98-107) mmol/L Carbon Dioxide (22-30) mmol/L Anion Gap (10-20) BUN (9-20) mg/dL Creatinine (0.8-1.5) mg/dL Est GFR ( Amer) Est GFR (Non-Af Amer) POC Glucose (mg/dL) 288 H (65-110) mg/dL Random Glucose (75-110) mg/dL Calcium (8.6-10.4) mg/dl Phosphorus (2.5-4.5) mg/dL Magnesium (1.6-2.3) mg/dL Total Bilirubin (0.2-1.3) mg/dL AST (17-59) U/L ALT (21-72) U/L Alkaline Phosphatase (38-126) U/L Total Protein (6.3-8.3) g/dL Albumin (3.5-5.0) g/dL Globulin (2.2-3.9) gm/dL Albumin/Globulin Ratio (1.0-2.1) Laboratory Results - last 24 hr 01/18/18 01/19/18 01/19/18 23:44 05:10 05:50 WBC RBC Hgb Hct MCV MCH MCHC RDW Plt Count MPV Neut % (Auto) Lymph % (Auto) [place] % (Auto) Eos % (Auto) Baso % (Auto) Neut # (Auto) Lymph # (Auto) [place] # (Auto) Eos # (Auto) Baso # (Auto) Puncture Site Lb pCO2 38 pO2 99 HCO3 21.6 ABG pH 7.35 ABG Total CO2 22.2 ABG O2 Saturation 98.3 H ABG Base Excess -4.2 L ABG Hemoglobin 14.1 ABG Carboxyhemoglobin 1.5 POC ABG HHb (Measured) 1.7 ABG Methemoglobin 0.9 Jamey Test Na A-a O2 Difference 210.0 Respiratory Index 2.1 Hgb O2 Saturation 95.9 Vent Mode Prvc Mechanical Rate 16 FiO2 50.0 Tidal Volume 500 PEEP 5 Sodium Potassium Chloride Carbon Dioxide Anion Gap BUN Creatinine Est GFR ( Amer) Est GFR (Non-Af Amer) POC Glucose (mg/dL) 288 H 285 H Random Glucose Calcium Phosphorus Magnesium Total Bilirubin AST ALT Alkaline Phosphatase Total Protein Albumin Globulin Albumin/Globulin Ratio 01/19/18 01/19/18 01/19/18 06:16 06:16 11:48 WBC 8.0 RBC 4.44 Hgb 13.9 Hct 41.8 MCV 94.2 H MCH 31.3 H MCHC 33.2 RDW 13.3 Plt Count 156 MPV 12.3 H Neut % (Auto) 70.7 Lymph % (Auto) 17.9 L [place] % (Auto) 11.2 H Eos % (Auto) 0.0 Baso % (Auto) 0.2 Neut # (Auto) 5.7 Lymph # (Auto) 1.4 [place] # (Auto) 0.9 H Eos # (Auto) 0.0 Baso # (Auto) 0.0 Puncture Site pCO2 pO2 HCO3 ABG pH ABG Total CO2 ABG O2 Saturation ABG Base Excess ABG Hemoglobin ABG Carboxyhemoglobin POC ABG HHb (Measured) ABG Methemoglobin Jamey Test A-a O2 Difference Respiratory Index Hgb O2 Saturation Vent Mode Mechanical Rate FiO2 Tidal Volume PEEP Sodium 154 H Potassium 4.6 Chloride 118 H Carbon Dioxide 23 Anion Gap 18 BUN 58 H Creatinine 1.7 H Est GFR ( Amer) 49 Est GFR (Non-Af Amer) 40 POC Glucose (mg/dL) 260 H Random Glucose 296 H Calcium 8.6 Phosphorus 3.6 Magnesium 3.0 H Total Bilirubin 0.9 AST 67 H D ALT 34 Alkaline Phosphatase 65 Total Protein 6.6 Albumin 3.3 L Globulin 3.3 Albumin/Globulin Ratio 1.0 01/19/18 17:25 WBC RBC Hgb Hct MCV MCH MCHC RDW Plt Count MPV Neut % (Auto) Lymph % (Auto) [place] % (Auto) Eos % (Auto) Baso % (Auto) Neut # (Auto) Lymph # (Auto) [place] # (Auto) Eos # (Auto) Baso # (Auto) Puncture Site pCO2 pO2 HCO3 ABG pH ABG Total CO2 ABG O2 Saturation ABG Base Excess ABG Hemoglobin ABG Carboxyhemoglobin POC ABG HHb (Measured) ABG Methemoglobin Jamey Test A-a O2 Difference Respiratory Index Hgb O2 Saturation Vent Mode Mechanical Rate FiO2 Tidal Volume PEEP Sodium Potassium Chloride Carbon Dioxide Anion Gap BUN Creatinine Est GFR ( Amer) Est GFR (Non-Af Amer) POC Glucose (mg/dL) 251 H Random Glucose Calcium Phosphorus Magnesium Total Bilirubin AST ALT Alkaline Phosphatase Total Protein Albumin Globulin Albumin/Globulin Ratio Assessment/Plan - Assessment and Plan (Free Text) Assessment: Patient intubated for air way protection during seizure activity. -continue CPAP trials -when neurology confirms seizures free, cpap and extubate -neurology considering MRI while on ventialtor -continue current managment. -above resident note documents ICu management - Date & Time Date: 01/19/18 Time: 18:19
--- NOTE | 2018-01-19 13:52 | CP.PCM.PN ---
<Karim,Desi - Last Filed: 01/19/18 16:49> Subjective - Date & Time of Evaluation Date of Evaluation: 01/19/18 Time of Evaluation: 13:50 - Subjective Subjective: PGY 2 progress note for Neurology Pt seen and examined at bedside. No acute events overnight. Patient is currently on CPAP sating well. 12 point ROS unobtainable due to mental status. Objective - Vital Signs/Intake and Output Vital Signs (last 24 hours): Temp Pulse Resp BP Pulse Ox 100.9 F H 76 25 H 132/50 L 99 01/19/18 12:46 01/19/18 12:23 01/19/18 12:23 01/19/18 12:23 01/19/18 12:00 Intake and Output: 01/19/18 01/19/18 06:59 18:59 Intake Total 1509 728 Output Total 1380 480 Balance 129 248 - Medications Medications: Current Medications Acetaminophen (Tylenol 650mg/20.3ml Solution Ud) 650 mg NG Q6 PRN PRN Reason: GIVE FOR TEMP. 100*F OR ABOVE Last Admin: 01/19/18 12:46 Dose: 650 mg Albuterol Sulfate (Albuterol 0.083% Inhal Lynne (2.5 Mg/3 Ml) Ud) 2.5 mg IH RQ6 [facility] Last Admin: 01/19/18 07:56 Dose: Not Given Aspirin (Aspirin Chewable) 81 mg PO DAILY [facility] Last Admin: 01/19/18 09:53 Dose: 81 mg Carvedilol (Coreg) 25 mg PO BID [facility] Last Admin: 01/19/18 09:53 Dose: 25 mg Heparin Sodium (Porcine) (Heparin) 5,000 units SC Q8 [facility] Last Admin: 01/19/18 05:51 Dose: 5,000 units Hydralazine HCl (Apresoline) 50 mg PO Q8 [facility] Last Admin: 01/19/18 05:51 Dose: 50 mg Ceftriaxone Sodium 1 gm/ (Sodium Chloride) 100 mls @ 100 mls/hr IVPB DAILY [facility] Last Admin: 01/19/18 11:00 Dose: 100 mls/hr Levetiracetam 1,000 mg/ Sodium (Chloride) 110 mls @ 420 mls/hr IVPB Q12H [facility] Last Admin: 01/19/18 04:00 Dose: 420 mls/hr Midazolam HCl 100 mg/ Sodium (Chloride) 100 mls @ 1 mls/hr IV .Q24H [facility] PRN Reason: 1 MG/HR Last Admin: 01/19/18 09:54 Dose: 1 mls/hr Insulin Glargine (Lantus) 15 unit SC HS [facility] Last Admin: 01/18/18 21:13 Dose: 15 u Insulin Human Regular (Novolin R) 0 unit SC Q6 [facility] PRN Reason: Protocol Last Admin: 01/19/18 12:47 Dose: 6 unit Pantoprazole Sodium (Protonix Inj) 40 mg IVP DAILY [facility] Last Admin: 01/19/18 09:53 Dose: 40 mg Rosuvastatin Calcium (Crestor) 10 mg PO [facility] Last Admin: 01/18/18 21:13 Dose: 10 mg Sennosides (Senokot Tab) 8.6 mg PO DAILY [facility] Last Admin: 01/19/18 09:53 Dose: 8.6 mg - Labs Labs: 01/19/18 06:16 01/19/18 06:16 PT 10.6 SECONDS (9.7-12.2) 01/16/18 12:27 INR 0.9 01/16/18 12:27 APTT 33 SECONDS (21-34) 01/16/18 12:27 - Constitutional Appears: Non-toxic - Head Exam Head Exam: ATRAUMATIC, NORMOCEPHALIC - Eye Exam Additional comments: Right pupil reacts to light. Left pupil does not react to light - ENT Exam ENT Exam: Mucous Membranes Moist - Respiratory Exam Respiratory Exam: Clear to Ausculation Bilateral, NORMAL BREATHING PATTERN. absent: Accessory Muscle Use, Rhonchi, Wheezes, Respiratory Distress - Cardiovascular Exam Cardiovascular Exam: REGULAR RHYTHM, +S1, +S2. absent: Gallop, Rubs, Murmur - GI/Abdominal Exam GI & Abdominal Exam: Soft, Normal Bowel Sounds. absent: Distended, Firm, Guarding, Rigid, Tenderness, Organomegaly - Extremities Exam Extremities Exam: absent: Pedal Edema, Tenderness - Neurological Exam Neurological Exam: absent: Alert, Awake, Oriented x3 Additional comments: No reaction to pain Corneal reflex present - Psychiatric Exam Psychiatric exam: absent: Normal Affect, Normal Mood - Skin Skin Exam: Dry, Intact, Normal Color, Warm Assessment and Plan - Assessment and Plan (Free Text) Assessment: This is a 67 year old male with PMHx multiple CVA which are likely contributing to his new onset seizures. Plan: 1. New onset Seizures -EEG 01/17 showing diffuse slowing with some epileptical discharges in the temporal lobe. -Continue Keppra 1000 mg -Versed drip -Initial head CT showed no acute pathologies; -Repeat CT of head on 01/17 also showed no acute abnormalities but did show prior [employer] territory infarction invovling the occipital lobe, old lacuna, basal ganglia, thalmus and right posterior subinsular cortex. -These prior insults are likely causing this new onset of seizures. -Will continue to monitor clinical course Disposition: Patient will need an MRI. Dr. Perez will try to facilitate getting the MRI compatible ventilator from [place]. If he is unable to do so, patient will likely need to be transferred to [place]. Case will be discussed with attending, Dr. Perez <Sukumar Perez - Last Filed: 01/19/18 17:01> Objective - Vital Signs/Intake and Output Vital Signs (last 24 hours): Temp Pulse Resp BP Pulse Ox 99.9 F H 78 27 H 155/65 H 96 01/19/18 15:00 01/19/18 16:23 01/19/18 16:23 01/19/18 16:23 01/19/18 16:23 Intake and Output: 01/19/18 01/19/18 06:59 18:59 Intake Total 1509 628 Output Total 1380 480 Balance 129 148 - Medications Medications: Current Medications Acetaminophen (Tylenol 650mg/20.3ml Solution Ud) 650 mg NG Q6 PRN PRN Reason: GIVE FOR TEMP. 100*F OR ABOVE Last Admin: 01/19/18 12:46 Dose: 650 mg Albuterol Sulfate (Albuterol 0.083% Inhal Lynne (2.5 Mg/3 Ml) Ud) 2.5 mg IH RQ6 [facility] Last Admin: 01/19/18 14:07 Dose: 2.5 mg Aspirin (Aspirin Chewable) 81 mg PO DAILY [facility] Last Admin: 01/19/18 09:53 Dose: 81 mg Carvedilol (Coreg) 25 mg PO BID [facility] Last Admin: 01/19/18 09:53 Dose: 25 mg Heparin Sodium (Porcine) (Heparin) 5,000 units SC Q8 [facility] Last Admin: 01/19/18 05:51 Dose: 5,000 units Hydralazine HCl (Apresoline) 50 mg PO Q8 [facility] Last Admin: 01/19/18 05:51 Dose: 50 mg Ceftriaxone Sodium 1 gm/ (Sodium Chloride) 100 mls @ 100 mls/hr IVPB DAILY [facility] Last Admin: 01/19/18 11:00 Dose: 100 mls/hr Levetiracetam 1,000 mg/ Sodium (Chloride) 110 mls @ 420 mls/hr IVPB Q12H [facility] Last Admin: 01/19/18 04:00 Dose: 420 mls/hr Midazolam HCl 100 mg/ Sodium (Chloride) 100 mls @ 1 mls/hr IV .Q24H [facility] PRN Reason: 1 MG/HR Last Admin: 01/19/18 09:54 Dose: 1 mls/hr Insulin Glargine (Lantus) 15 unit SC HS [facility] Last Admin: 01/18/18 21:13 Dose: 15 u Insulin Human Regular (Novolin R) 0 unit SC Q6 [facility] PRN Reason: Protocol Last Admin: 01/19/18 12:47 Dose: 6 unit Pantoprazole Sodium (Protonix Inj) 40 mg IVP DAILY [facility] Last Admin: 01/19/18 09:53 Dose: 40 mg Rosuvastatin Calcium (Crestor) 10 mg PO [facility] Last Admin: 01/18/18 21:13 Dose: 10 mg Sennosides (Senokot Tab) 8.6 mg PO DAILY [facility] Last Admin: 01/19/18 09:53 Dose: 8.6 mg - Labs Labs: 01/19/18 06:16 01/19/18 06:16 PT 10.6 SECONDS (9.7-12.2) 01/16/18 12:27 INR 0.9 01/16/18 12:27 APTT 33 SECONDS (21-34) 01/16/18 12:27 Attending/Attestation - Attestation I have personally seen and examined this patient.: Yes I have fully participated in the care of the patient.: Yes I have reviewed all pertinent clinical information, including history, physical exam and plan: Yes Notes (Text): 01/19/18 17:00 I agree with the assessment and plan, and would like to stop the patient's sedation at this time. Will stop Midazolam. Repeat CT scan of the head today. Will follow up on EEG report.
[2018-01-19] MEDS: (Lantus) Insulin Glargine, Recombinant SC SCH (22:04)
--- NOTE | 2018-01-19 23:12 | CP.PCM.PN ---
Subjective - Date & Time of Evaluation Date of Evaluation: 01/19/18 Time of Evaluation: 19:00 - Subjective Subjective: Patient seen and examined today Objective - Vital Signs/Intake and Output Vital Signs (last 24 hours): Temp Pulse Resp BP Pulse Ox 99.9 F H 81 23 164/61 H 97 01/19/18 15:00 01/19/18 21:23 01/19/18 21:23 01/19/18 21:23 01/19/18 20:23 Intake and Output: 01/19/18 01/20/18 18:59 06:59 Intake Total 733 150 Output Total 480 2200 Balance 253 -2050 - Medications Medications: Current Medications Acetaminophen (Tylenol 650mg/20.3ml Solution Ud) 650 mg NG Q6 PRN PRN Reason: GIVE FOR TEMP. 100*F OR ABOVE Last Admin: 01/19/18 12:46 Dose: 650 mg Albuterol Sulfate (Albuterol 0.083% Inhal Lynne (2.5 Mg/3 Ml) Ud) 2.5 mg IH RQ6 [facility] Last Admin: 01/19/18 21:01 Dose: 2.5 mg Aspirin (Aspirin Chewable) 81 mg PO DAILY [facility] Last Admin: 01/19/18 09:53 Dose: 81 mg Carvedilol (Coreg) 25 mg PO BID [facility] Last Admin: 01/19/18 17:26 Dose: 25 mg Heparin Sodium (Porcine) (Heparin) 5,000 units SC Q8 [facility] Last Admin: 01/19/18 21:40 Dose: 5,000 units Hydralazine HCl (Apresoline) 50 mg PO Q8 [facility] Last Admin: 01/19/18 21:40 Dose: 50 mg Ceftriaxone Sodium 1 gm/ (Sodium Chloride) 100 mls @ 100 mls/hr IVPB DAILY [facility] Last Admin: 01/19/18 11:00 Dose: 100 mls/hr Levetiracetam 1,000 mg/ Sodium (Chloride) 110 mls @ 420 mls/hr IVPB Q12H [facility] Last Admin: 01/19/18 16:30 Dose: 420 mls/hr Insulin Glargine (Lantus) 15 unit SC HS [facility] Last Admin: 01/19/18 22:04 Dose: 15 u Insulin Human Regular (Novolin R) 0 unit SC Q6 [facility] PRN Reason: Protocol Last Admin: 01/19/18 17:29 Dose: 6 unit Pantoprazole Sodium (Protonix Inj) 40 mg IVP DAILY [facility] Last Admin: 01/19/18 09:53 Dose: 40 mg Rosuvastatin Calcium (Crestor) 10 mg PO HS [facility] Last Admin: 01/19/18 21:40 Dose: 10 mg Sennosides (Senokot Tab) 8.6 mg PO DAILY [facility] Last Admin: 01/19/18 09:53 Dose: 8.6 mg - Labs Labs: 01/19/18 06:16 01/19/18 06:16 PT 10.6 SECONDS (9.7-12.2) 01/16/18 12:27 INR 0.9 01/16/18 12:27 APTT 33 SECONDS (21-34) 01/16/18 12:27 Assessment and Plan (1) Status epilepticus Status: Acute (2) COPD (chronic obstructive pulmonary disease) Status: Acute (3) Congestive heart failure Status: Acute (4) Diabetes Status: Acute
[2018-01-20] MEDS: Albuterol 0.083% Inhal Sol (2.5 mg/3 mL) UD IH SCH ×4 (02:31→21:24)
[2018-01-20] MEDS: Acetaminophen 650mg/20.3ml solution UD NG PRN ×2 (02:46→21:01)
[2018-01-20] MEDS: levETIRAcetam 1,000 MG in Sodium Chloride 0.9% 100 ML IVPB SCH (03:05)
[2018-01-20 05:34] LABS: ARTERIAL BLOOD GAS HCO3 26.2 mmol/L (21-28); ARTERIAL BLOOD GAS HEMOGLOBIN 14.5 g/dL (11.7-17.4); ARTERIAL BLOOD GAS PCO2 45 mm/Hg (35-45); ARTERIAL BLOOD GAS PH 7.39 (7.35-7.45); ARTERIAL BLOOD GAS PO2 90 mm/Hg (80-100); ARTERIAL BLOOD GAS TCO2 28.6 mmol/L (22-28)
[2018-01-20] MEDS: (Novolin R) Insulin Human Regular 100 units/ml vial SC SCH (06:03)
[2018-01-20 06:18] LABS: BASO % 0.4 % (0.0-2.0); EOS % 0.2 % (0.0-4.0); HEMOGLOBIN 14.8 g/dL (12.0-18.0); LYMPH # 1.5 K/uL (1.0-4.3); MEAN CELL VOLUME 94.5 fL (80.0-94.0); MEAN CORPUSCULAR HEMOGLOBIN 31.5 pg (27.0-31.0); MEAN CORPUSCULAR HGB CONC 33.3 g/dL (33.0-37.0); MEAN PLATELET VOLUME 12.2 fL (7.2-11.7); MONO # 0.8 K/uL (0.0-0.8); MONO % 10.1 % (0.0-10.0); NEUT # 5.3 K/uL (1.8-7.0); NEUT % 69.3 % (50.0-75.0); RBC 4.72 Mil/uL (4.40-5.90); RED CELL DISTRIBUTION WIDTH 13.4 % (11.5-14.5); WHITE BLOOD COUNT 7.6 K/uL (4.8-10.8)
[2018-01-20 06:35] LABS: ALB/GLOB RATIO 0.9 (1.0-2.1); ALBUMIN 3.4 g/dL (3.5-5.0); CALCIUM 8.9 mg/dl (8.6-10.4)
--- NOTE | 2018-01-20 08:30 | CP.CCUPN ---
CCU Subjective - Physician Review Events Since Last Encounter (Free Text): Overnight urine output high (off versed and not awake or responsive to sternal rub) Subjective (Free Text): No acute events oernight, tolerating CPAP CCU Objective - Vital Signs / Intake & Output Vital Signs (Last 4 hours): Vital Signs Pulse Resp BP Pulse Ox 01/20/18 07:23 88 22 161/74 H 01/20/18 07:00 87 20 98 01/20/18 06:47 88 22 150/70 97 01/20/18 06:00 85 23 98 01/20/18 05:00 91 H 26 H 98 Intake and Output (Last 8hrs): Intake & Output 01/19/18 01/20/18 01/20/18 22:59 06:59 14:59 Intake Total 403 400 50 Output Total 2650 830 50 Balance -2247 -430 0 Weight 227 lb 1.218 oz Intake: Intake, IV Amount 3 Left AC 3 Tube Feeding 400 400 50 Output: Urine 2650 830 50 Urethral (Stanley) 2650 830 50 Stool 0 Emesis 0 - Physical Exam Head: Positive for: Atraumatic, Normocephalic Pupils: Positive for: Other (corneal reflex) Neck: Positive for: Normal Range of Motion Respiratory/Chest: Positive for: Clear to Auscultation. Negative for: Respiratory Distress Cardiovascular: Positive for: Regular Rate and Rhythm, Normal S1, S2. Negative for: Tachycardic Abdomen: Positive for: Normal Bowel Sounds, Other (obese). Negative for: Tenderness, Distention, Peritoneal Signs Lower Extremity: Positive for: Normal Inspection Neurological: Positive for: Other (no response to pain) - Medications Active Medications: Active Medications Generic Name Dose Route Start Last Admin Trade Name Freq PRN Reason Stop Dose Admin Acetaminophen 650 mg 01/19/18 00:50 01/20/18 02:46 Tylenol 650mg/20.3ml Solution Ud NG 650 mg Q6 PRN Administration GIVE FOR TEMP. 100*F OR ABOVE Albuterol Sulfate 2.5 mg 01/16/18 14:45 01/20/18 02:31 Albuterol 0.083% Inhal Lynne (2.5 Mg/3 Ml) Ud IH 2.5 mg RQ6 [facility] Administration Aspirin 81 mg 01/17/18 10:00 01/19/18 09:53 Aspirin Chewable PO 81 mg DAILY [facility] Administration Carvedilol 25 mg 01/16/18 18:00 01/19/18 17:26 Coreg PO 25 mg BID [facility] Administration Heparin Sodium (Porcine) 5,000 units 01/17/18 14:00 01/20/18 06:01 Heparin SC 5,000 units Q8 [facility] Administration Hydralazine HCl 50 mg 01/16/18 22:00 01/20/18 06:01 Apresoline PO 50 mg Q8 [facility] Administration Ceftriaxone Sodium 1 gm/ 100 mls @ 100 mls/hr 01/18/18 10:00 01/19/18 11:00 Sodium Chloride IVPB 100 mls/hr DAILY [facility] Administration Levetiracetam 1,000 mg/ Sodium 110 mls @ 420 mls/hr 01/17/18 16:00 01/20/18 03:05 Chloride IVPB 420 mls/hr Q12H [facility] Administration Desmopressin Acetate 2 mcg/ 50.5 mls @ 100 mls/hr 01/20/18 10:00 Sodium Chloride IV Q12 [facility] Insulin Glargine 15 unit 01/18/18 22:00 01/19/18 22:04 Lantus SC 15 u HS [facility] Administration Insulin Human Regular 0 unit 01/16/18 18:00 01/20/18 06:03 Novolin R SC 6 unit Q6 [facility] Administration Protocol Pantoprazole Sodium 40 mg 01/16/18 17:15 01/19/18 09:53 Protonix Inj IVP 40 mg DAILY [facility] Administration Rosuvastatin Calcium 10 mg 01/16/18 22:00 01/19/18 21:40 Crestor PO 10 mg HS [facility] Administration Sennosides 8.6 mg 01/17/18 14:00 01/19/18 09:53 Senokot Tab PO 8.6 mg DAILY [facility] Administration - Patient Studies Lab Studies: Microbiology Studies 01/17/18 15:26 Blood Culture - Preliminary Blood NO GROWTH AFTER 48 HOURS 01/17/18 15:26 Blood Culture - Preliminary Blood NO GROWTH AFTER 48 HOURS 01/16/18 17:36 Gram Stain - Final Trachasp Sputum Culture - Final NORMAL ORAL HALEY Lab Studies 01/20/18 01/20/18 01/20/18 Range/Units 06:08 06:07 05:44 WBC 7.6 (4.8-10.8) K/uL RBC 4.72 (4.40-5.90) Mil/uL Hgb 14.8 (12.0-18.0) g/dL Hct 44.6 (35.0-51.0) % MCV 94.5 H (80.0-94.0) fL MCH 31.5 H (27.0-31.0) pg MCHC 33.3 (33.0-37.0) g/dL RDW 13.4 (11.5-14.5) % Plt Count 166 (130-400) K/uL MPV 12.2 H (7.2-11.7) fL Neut % (Auto) 69.3 (50.0-75.0) % Lymph % (Auto) 20.0 (20.0-40.0) % Haakon % (Auto) 10.1 H (0.0-10.0) % Eos % (Auto) 0.2 (0.0-4.0) % Baso % (Auto) 0.4 (0.0-2.0) % Neut # (Auto) 5.3 (1.8-7.0) K/uL Lymph # (Auto) 1.5 (1.0-4.3) K/uL Haakon # (Auto) 0.8 (0.0-0.8) K/uL Eos # (Auto) 0.0 (0.0-0.7) K/uL Baso # (Auto) 0.0 (0.0-0.2) K/uL Puncture Site pCO2 (35-45) mm/Hg pO2 (80-100) mm/Hg HCO3 (21-28) mmol/L ABG pH (7.35-7.45) ABG Total CO2 (22-28) mmol/L ABG O2 Saturation (95-98) % ABG Base Excess (-2.0-3.0) mmol/L ABG Hemoglobin (11.7-17.4) g/dL ABG Carboxyhemoglobin (0.5-1.5) % POC ABG HHb (Measured) (0.0-5.0) % ABG Methemoglobin (0.0-3.0) % Jamey Test A-a O2 Difference mm/Hg Respiratory Index Hgb O2 Saturation (95.0-98.0) % Vent Mode FiO2 % Pressure Support CPAP Sodium 162 H* (132-148) mmol/L Potassium 5.0 (3.6-5.2) mmol/L Chloride 124 H (98-107) mmol/L Carbon Dioxide 25 (22-30) mmol/L Anion Gap 18 (10-20) BUN 50 H (9-20) mg/dL Creatinine 1.6 H (0.8-1.5) mg/dL Est GFR ( Amer) 52 Est GFR (Non-Af Amer) 43 POC Glucose (mg/dL) 266 H (65-110) mg/dL Random Glucose 321 H (75-110) mg/dL Calcium 8.9 (8.6-10.4) mg/dl Phosphorus 3.6 (2.5-4.5) mg/dL Magnesium 2.8 H (1.6-2.3) mg/dL Total Bilirubin 0.8 (0.2-1.3) mg/dL AST 76 H (17-59) U/L ALT 47 (21-72) U/L Alkaline Phosphatase 68 (38-126) U/L Total Protein 7.0 (6.3-8.3) g/dL Albumin 3.4 L (3.5-5.0) g/dL Globulin 3.6 (2.2-3.9) gm/dL Albumin/Globulin Ratio 0.9 L (1.0-2.1) 01/20/18 01/19/18 01/19/18 Range/Units 05:18 23:37 17:25 WBC (4.8-10.8) K/uL RBC (4.40-5.90) Mil/uL Hgb (12.0-18.0) g/dL Hct (35.0-51.0) % MCV (80.0-94.0) fL MCH (27.0-31.0) pg MCHC (33.0-37.0) g/dL RDW (11.5-14.5) % Plt Count (130-400) K/uL MPV (7.2-11.7) fL Neut % (Auto) (50.0-75.0) % Lymph % (Auto) (20.0-40.0) % Haakon % (Auto) (0.0-10.0) % Eos % (Auto) (0.0-4.0) % Baso % (Auto) (0.0-2.0) % Neut # (Auto) (1.8-7.0) K/uL Lymph # (Auto) (1.0-4.3) K/uL Haakon # (Auto) (0.0-0.8) K/uL Eos # (Auto) (0.0-0.7) K/uL Baso # (Auto) (0.0-0.2) K/uL Puncture Site R bra pCO2 45 (35-45) mm/Hg pO2 90 (80-100) mm/Hg HCO3 26.2 (21-28) mmol/L ABG pH 7.39 (7.35-7.45) ABG Total CO2 28.6 H (22-28) mmol/L ABG O2 Saturation 98.0 (95-98) % ABG Base Excess 1.7 (-2.0-3.0) mmol/L ABG Hemoglobin 14.5 (11.7-17.4) g/dL ABG Carboxyhemoglobin 1.8 H (0.5-1.5) % POC ABG HHb (Measured) 1.9 (0.0-5.0) % ABG Methemoglobin 1.1 (0.0-3.0) % Jamey Test Na A-a O2 Difference 139.0 mm/Hg Respiratory Index 1.5 Hgb O2 Saturation 95.2 (95.0-98.0) % Vent Mode Cpap/ psv FiO2 40.0 % Pressure Support 12 CPAP 5 Sodium (132-148) mmol/L Potassium (3.6-5.2) mmol/L Chloride (98-107) mmol/L Carbon Dioxide (22-30) mmol/L Anion Gap (10-20) BUN (9-20) mg/dL Creatinine (0.8-1.5) mg/dL Est GFR ( Amer) Est GFR (Non-Af Amer) POC Glucose (mg/dL) 264 H 251 H (65-110) mg/dL Random Glucose (75-110) mg/dL Calcium (8.6-10.4) mg/dl Phosphorus (2.5-4.5) mg/dL Magnesium (1.6-2.3) mg/dL Total Bilirubin (0.2-1.3) mg/dL AST (17-59) U/L ALT (21-72) U/L Alkaline Phosphatase (38-126) U/L Total Protein (6.3-8.3) g/dL Albumin (3.5-5.0) g/dL Globulin (2.2-3.9) gm/dL Albumin/Globulin Ratio (1.0-2.1) 01/19/18 Range/Units 11:48 WBC (4.8-10.8) K/uL RBC (4.40-5.90) Mil/uL Hgb (12.0-18.0) g/dL Hct (35.0-51.0) % MCV (80.0-94.0) fL MCH (27.0-31.0) pg MCHC (33.0-37.0) g/dL RDW (11.5-14.5) % Plt Count (130-400) K/uL MPV (7.2-11.7) fL Neut % (Auto) (50.0-75.0) % Lymph % (Auto) (20.0-40.0) % Haakon % (Auto) (0.0-10.0) % Eos % (Auto) (0.0-4.0) % Baso % (Auto) (0.0-2.0) % Neut # (Auto) (1.8-7.0) K/uL Lymph # (Auto) (1.0-4.3) K/uL Haakon # (Auto) (0.0-0.8) K/uL Eos # (Auto) (0.0-0.7) K/uL Baso # (Auto) (0.0-0.2) K/uL Puncture Site pCO2 (35-45) mm/Hg pO2 (80-100) mm/Hg HCO3 (21-28) mmol/L ABG pH (7.35-7.45) ABG Total CO2 (22-28) mmol/L ABG O2 Saturation (95-98) % ABG Base Excess (-2.0-3.0) mmol/L ABG Hemoglobin (11.7-17.4) g/dL ABG Carboxyhemoglobin (0.5-1.5) % POC ABG HHb (Measured) (0.0-5.0) % ABG Methemoglobin (0.0-3.0) % Jamey Test A-a O2 Difference mm/Hg Respiratory Index Hgb O2 Saturation (95.0-98.0) % Vent Mode FiO2 % Pressure Support CPAP Sodium (132-148) mmol/L Potassium (3.6-5.2) mmol/L Chloride (98-107) mmol/L Carbon Dioxide (22-30) mmol/L Anion Gap (10-20) BUN (9-20) mg/dL Creatinine (0.8-1.5) mg/dL Est GFR ( Amer) Est GFR (Non-Af Amer) POC Glucose (mg/dL) 260 H (65-110) mg/dL Random Glucose (75-110) mg/dL Calcium (8.6-10.4) mg/dl Phosphorus (2.5-4.5) mg/dL Magnesium (1.6-2.3) mg/dL Total Bilirubin (0.2-1.3) mg/dL AST (17-59) U/L ALT (21-72) U/L Alkaline Phosphatase (38-126) U/L Total Protein (6.3-8.3) g/dL Albumin (3.5-5.0) g/dL Globulin (2.2-3.9) gm/dL Albumin/Globulin Ratio (1.0-2.1) Laboratory Results - last 24 hr 01/19/18 01/19/18 01/19/18 11:48 17:25 23:37 WBC RBC Hgb Hct MCV MCH MCHC RDW Plt Count MPV Neut % (Auto) Lymph % (Auto) Haakon % (Auto) Eos % (Auto) Baso % (Auto) Neut # (Auto) Lymph # (Auto) Haakon # (Auto) Eos # (Auto) Baso # (Auto) Puncture Site pCO2 pO2 HCO3 ABG pH ABG Total CO2 ABG O2 Saturation ABG Base Excess ABG Hemoglobin ABG Carboxyhemoglobin POC ABG HHb (Measured) ABG Methemoglobin Jamey Test A-a O2 Difference Respiratory Index Hgb O2 Saturation Vent Mode FiO2 Pressure Support CPAP Sodium Potassium Chloride Carbon Dioxide Anion Gap BUN Creatinine Est GFR ( Amer) Est GFR (Non-Af Amer) POC Glucose (mg/dL) 260 H 251 H 264 H Random Glucose Calcium Phosphorus Magnesium Total Bilirubin AST ALT Alkaline Phosphatase Total Protein Albumin Globulin Albumin/Globulin Ratio 01/20/18 01/20/18 01/20/18 05:18 05:44 06:07 WBC RBC Hgb Hct MCV MCH MCHC RDW Plt Count MPV Neut % (Auto) Lymph % (Auto) Haakon % (Auto) Eos % (Auto) Baso % (Auto) Neut # (Auto) Lymph # (Auto) Haakon # (Auto) Eos # (Auto) Baso # (Auto) Puncture Site R bra pCO2 45 pO2 90 HCO3 26.2 ABG pH 7.39 ABG Total CO2 28.6 H ABG O2 Saturation 98.0 ABG Base Excess 1.7 ABG Hemoglobin 14.5 ABG Carboxyhemoglobin 1.8 H POC ABG HHb (Measured) 1.9 ABG Methemoglobin 1.1 Jamey Test Na A-a O2 Difference 139.0 Respiratory Index 1.5 Hgb O2 Saturation 95.2 Vent Mode Cpap/ psv FiO2 40.0 Pressure Support 12 CPAP 5 Sodium 162 H* Potassium 5.0 Chloride 124 H Carbon Dioxide 25 Anion Gap 18 BUN 50 H Creatinine 1.6 H Est GFR ( Amer) 52 Est GFR (Non-Af Amer) 43 POC Glucose (mg/dL) 266 H Random Glucose 321 H Calcium 8.9 Phosphorus 3.6 Magnesium 2.8 H Total Bilirubin 0.8 AST 76 H ALT 47 Alkaline Phosphatase 68 Total Protein 7.0 Albumin 3.4 L Globulin 3.6 Albumin/Globulin Ratio 0.9 L 01/20/18 06:08 WBC 7.6 RBC 4.72 Hgb 14.8 Hct 44.6 MCV 94.5 H MCH 31.5 H MCHC 33.3 RDW 13.4 Plt Count 166 MPV 12.2 H Neut % (Auto) 69.3 Lymph % (Auto) 20.0 Haakon % (Auto) 10.1 H Eos % (Auto) 0.2 Baso % (Auto) 0.4 Neut # (Auto) 5.3 Lymph # (Auto) 1.5 Haakon # (Auto) 0.8 Eos # (Auto) 0.0 Baso # (Auto) 0.0 Puncture Site pCO2 pO2 HCO3 ABG pH ABG Total CO2 ABG O2 Saturation ABG Base Excess ABG Hemoglobin ABG Carboxyhemoglobin POC ABG HHb (Measured) ABG Methemoglobin Jamey Test A-a O2 Difference Respiratory Index Hgb O2 Saturation Vent Mode FiO2 Pressure Support CPAP Sodium Potassium Chloride Carbon Dioxide Anion Gap BUN Creatinine Est GFR ( Amer) Est GFR (Non-Af Amer) POC Glucose (mg/dL) Random Glucose Calcium Phosphorus Magnesium Total Bilirubin AST ALT Alkaline Phosphatase Total Protein Albumin Globulin Albumin/Globulin Ratio Fingerstick Blood Sugar Results: 266 Assessment/Plan - Assessment and Plan (Free Text) Assessment: 67M W/ likely new onset seizures, CAP and intubated for airway protection now with hypernatremia Plan: -hypernatremia: not given lasix, suspect DI, obtain urine osmol, serum osmol and increase free water to 400 ml q4hrs, start desmopressin , STAT CT HEAD -Neuro: neurology input as patient off versed and now not responsive ?adjust AEDs, check levels -Cards:off pressors, MAP >65 -Hypoxic respiratory failure: intubated to protect airway,titrate FiO2 to keep spo2 >92, possible CAP empirically on abx --Ceftriaxone, culture neg, complete 8 days abx CKD stage I: possible post ATN diuresis, will start LR, pending urine osmol, serum osmol, UA GI: continue tube feeds -Endo: DM on insulin, Lantus 15 QD am, ISS aspart PUD/DVT PPX: Protonix and heparin Awaiting neurology input as to further plan for MRI, --will obtain CT head as patient has polyuria and is not responsive despite off sedation. cc time 35 minutes d/w nursing - Date & Time Date: 01/20/18 Time: 08:30
--- NOTE | 2018-01-20 08:46 | RAD ---
HISTORY: ett COMPARISON: Chest radiograph dated 01/19/2018. FINDINGS: LUNGS: Low lung volumes. Questionable left basilar patchy opacity. PLEURA: No significant pleural effusion identified, no pneumothorax apparent. CARDIOVASCULAR: Prior sternotomy with sternal wires and surgical clips redemonstrated. Atherosclerotic aortic calcifications. Cardiomediastinal silhouette stably enlarged. OSSEOUS STRUCTURES: Unchanged. VISUALIZED UPPER ABDOMEN: Normal. OTHER FINDINGS: Endotracheal and enteric tubes, unchanged. IMPRESSION: Questionable left basilar patchy opacity.
[2018-01-20] MEDS: (Novolog) Insulin Aspart, Recombinant 100 u/ml 10 ml vial SC SCH ×5 (09:16→22:47)
[2018-01-20] MEDS ORDERED: Desmopressin 4 mcg/ml Inj (1 ml) IVP SCH (10:00)
--- NOTE | 2018-01-20 10:44 | CT ---
PROCEDURE: CT HEAD WITHOUT CONTRAST. HISTORY: DI COMPARISON: CT head dated 01/17/2018. TECHNIQUE: Axial computed tomography images were obtained through the head/brain without intravenous contrast. Radiation dose: Total exam DLP = 1000.4 mGy-cm. This CT exam was performed using one or more of the following dose reduction techniques: Automated exposure control, adjustment of the mA and/or kV according to patient size, and/or use of iterative reconstruction technique. FINDINGS: HEMORRHAGE: No intracranial hemorrhage. BRAIN: No mass effect or edema. 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 Cerebral atrophy. Chronic periventricular white matter microvascular ischemic changes. Left basal ganglia lacunar infarctions redemonstrated. VENTRICLES: Prominent. No hydrocephalus. CALVARIUM: Unremarkable. PARANASAL SINUSES: Right maxillary sinus polyp or retention cyst. No significant inflammatory changes. MASTOID AIR CELLS: Unremarkable as visualized. No inflammatory changes. OTHER FINDINGS: Partially imaged endotracheal tube. IMPRESSION: No acute intracranial pathology.
--- NOTE | 2018-01-20 16:24 | PCM.EEG ---
Electroencephalogram Report - Electroencephalogram Report Procedure Date: 01/20/18 Interpretation: Indication: Unconsciousness, concern for subclinical status epilepticus. Medications were reviewed. Technical: This is a digitally recorded electroencephalogram. The international 10-20 electrode placement system is used for scalp electrode placement. Eighteen channels of scalp EEG are recorded Another channel was used for for ECG. The data are stored digitally and reviewed in reformatted montages for optimal display. Description : No seizure like activity was observed during this recording. Diffuse Abnormality: No well formed alpha activity was seen. Mixed diffuse theta and delta activity was seen. Markedly suppressed EEG activity was observed. Focal abnormality: Intermittent focal slowing was seen. The was notable mainly over the right temporal and occipital region. Impression: This EEG is abnormal. Diffuse slowing is seen, suggestive of a diffuse abnormality of the brain. Some focal slowing was seen, suggestive of a focal abnormality. There were no electrographic seizures during the recording. Clinical correlation is needed.
--- NOTE | 2018-01-20 16:50 | CP.PCM.CON ---
History of Present Illness - History of Present Illness History of Present Illness: pt is seen and examined, full consult is dictated #[id number] 1. hypernatremia sec to intravascular volume depletion 2. pre renal azotemia 3. htn 4. DM 5. AMS r/o acute cva 6. s/p intubation for air way protection check urine lytes , na,k, cl, osm, glucose, urea agree with free water start ivf d5w at 125 ml/hr pt has a free water deficit about 9 lit need to corrected in 2 days+ insensible loss about 1 lit/day + urine out put which need to be corrected in 72 hrs Past Patient History - Past Medical History & Family History Past Medical History?: Yes - Past Social History Smoking Status: Never Smoked - CARDIAC Hx Hypercholesterolemia: Yes Hx Hypertension: Yes - PULMONARY Hx Respiratory Disorders: Yes Other/Comment: s o b on exertion - NEUROLOGICAL Hx Neurological Disorder: No - HEENT Hx HEENT Problems: Yes Hx Cataracts: Yes (bilateral cat ext with iol) - RENAL Hx Chronic Kidney Disease: No - ENDOCRINE/METABOLIC Hx Endocrine Disorders: Yes Hx Diabetes Mellitus Type 2: Yes - HEMATOLOGICAL/ONCOLOGICAL Hx Blood Disorders: No - INTEGUMENTARY Hx Dermatological Problems: Yes Other/Comment: small ulcers both great toes - MUSCULOSKELETAL/RHEUMATOLOGICAL Hx Musculoskeletal Disorders: No Hx Falls: Yes - GASTROINTESTINAL Hx Gastrointestinal Disorders: No - GENITOURINARY/GYNECOLOGICAL Hx Genitourinary Disorders: No - PSYCHIATRIC Hx Substance Use: No - SURGICAL HISTORY Hx Coronary Artery Bypass Graft: Yes (8 yrs ago) - ANESTHESIA Hx Anesthesia: Yes Hx Anesthesia Reactions: No Hx Malignant Hyperthermia: No Meds Allergies/Adverse Reactions: Allergies Allergy/AdvReac Type Severity Reaction Status Date / Time No Known Allergies Allergy Verified 01/08/18 19:23 - Medications Medications: Current Medications Acetaminophen (Tylenol 650mg/20.3ml Solution Ud) 650 mg NG Q6 PRN PRN Reason: GIVE FOR TEMP. 100*F OR ABOVE Last Admin: 01/20/18 02:46 Dose: 650 mg Albuterol Sulfate (Albuterol 0.083% Inhal Lynne (2.5 Mg/3 Ml) Ud) 2.5 mg IH RQ6 [facility] Last Admin: 01/20/18 13:29 Dose: 2.5 mg Aspirin (Aspirin Chewable) 81 mg PO DAILY [facility] Last Admin: 01/20/18 11:16 Dose: 81 mg Carvedilol (Coreg) 25 mg PO BID [facility] Last Admin: 01/20/18 11:16 Dose: 25 mg Desmopressin Acetate (Ddavp) 2 mcg IVP Q12 [facility] Last Admin: 01/20/18 11:15 Dose: 2 mcg Heparin Sodium (Porcine) (Heparin) 5,000 units SC Q8 [facility] Last Admin: 01/20/18 06:01 Dose: 5,000 units Hydralazine HCl (Apresoline) 50 mg PO Q8 [facility] Last Admin: 01/20/18 06:01 Dose: 50 mg Ceftriaxone Sodium 1 gm/ (Sodium Chloride) 100 mls @ 100 mls/hr IVPB DAILY [facility] Last Admin: 01/20/18 11:16 Dose: 100 mls/hr Levetiracetam 750 mg/ Sodium (Chloride) 107.5 mls @ 420 mls/hr IVPB Q12H [facility] Insulin Aspart (Novolog) 0 unit SC Q4H [facility] PRN Reason: Protocol Last Admin: 01/20/18 09:16 Dose: Not Given Insulin Glargine (Lantus) 15 unit SC [facility] Last Admin: 01/19/18 22:04 Dose: 15 u Pantoprazole Sodium (Protonix Ec Tab) 40 mg PO DAILY [facility] Rosuvastatin Calcium (Crestor) 10 mg PO [facility] Last Admin: 01/19/18 21:40 Dose: 10 mg Sennosides (Senokot Tab) 8.6 mg PO DAILY [facility] Last Admin: 01/20/18 11:16 Dose: 8.6 mg Results - Vital Signs Recent Vital Signs: Last Vital Signs Temp 101.3 F H 01/20/18 04:00 Pulse 85 01/20/18 16:00 Resp 27 H 01/20/18 16:00 BP 122/56 L 01/20/18 15:23 Pulse Ox 98 01/20/18 16:00 - Labs Result Diagrams: 01/20/18 06:08 01/20/18 18:08 Labs: Laboratory Results - last 24 hr 01/19/18 01/19/18 01/20/18 17:25 23:37 05:18 WBC RBC Hgb Hct MCV MCH MCHC RDW Plt Count MPV Neut % (Auto) Lymph % (Auto) [place] % (Auto) Eos % (Auto) Baso % (Auto) Neut # (Auto) Lymph # (Auto) [place] # (Auto) Eos # (Auto) Baso # (Auto) Puncture Site R bra pCO2 45 pO2 90 HCO3 26.2 ABG pH 7.39 ABG Total CO2 28.6 H ABG O2 Saturation 98.0 ABG Base Excess 1.7 ABG Hemoglobin 14.5 ABG Carboxyhemoglobin 1.8 H POC ABG HHb (Measured) 1.9 ABG Methemoglobin 1.1 Jamey Test Na A-a O2 Difference 139.0 Respiratory Index 1.5 Hgb O2 Saturation 95.2 Vent Mode Cpap/ psv FiO2 40.0 Pressure Support 12 CPAP 5 Sodium Potassium Chloride Carbon Dioxide Anion Gap BUN Creatinine Est GFR ( Amer) Est GFR (Non-Af Amer) POC Glucose (mg/dL) 251 H 264 H Random Glucose Serum Osmolality Calcium Phosphorus Magnesium Total Bilirubin AST ALT Alkaline Phosphatase Total Protein Albumin Globulin Albumin/Globulin Ratio Urine Osmolality 01/20/18 01/20/18 01/20/18 05:44 06:07 06:08 WBC 7.6 RBC 4.72 Hgb 14.8 Hct 44.6 MCV 94.5 H MCH 31.5 H MCHC 33.3 RDW 13.4 Plt Count 166 MPV 12.2 H Neut % (Auto) 69.3 Lymph % (Auto) 20.0 [place] % (Auto) 10.1 H Eos % (Auto) 0.2 Baso % (Auto) 0.4 Neut # (Auto) 5.3 Lymph # (Auto) 1.5 [place] # (Auto) 0.8 Eos # (Auto) 0.0 Baso # (Auto) 0.0 Puncture Site pCO2 pO2 HCO3 ABG pH ABG Total CO2 ABG O2 Saturation ABG Base Excess ABG Hemoglobin ABG Carboxyhemoglobin POC ABG HHb (Measured) ABG Methemoglobin Jamey Test A-a O2 Difference Respiratory Index Hgb O2 Saturation Vent Mode FiO2 Pressure Support CPAP Sodium 162 H* Potassium 5.0 Chloride 124 H Carbon Dioxide 25 Anion Gap 18 BUN 50 H Creatinine 1.6 H Est GFR ( Amer) 52 Est GFR (Non-Af Amer) 43 POC Glucose (mg/dL) 266 H Random Glucose 321 H Serum Osmolality Calcium 8.9 Phosphorus 3.6 Magnesium 2.8 H Total Bilirubin 0.8 AST 76 H ALT 47 Alkaline Phosphatase 68 Total Protein 7.0 Albumin 3.4 L Globulin 3.6 Albumin/Globulin Ratio 0.9 L Urine Osmolality 01/20/18 01/20/18 01/20/18 08:51 08:51 11:59 WBC RBC Hgb Hct MCV MCH MCHC RDW Plt Count MPV Neut % (Auto) Lymph % (Auto) [place] % (Auto) Eos % (Auto) Baso % (Auto) Neut # (Auto) Lymph # (Auto) [place] # (Auto) Eos # (Auto) Baso # (Auto) Puncture Site pCO2 pO2 HCO3 ABG pH ABG Total CO2 ABG O2 Saturation ABG Base Excess ABG Hemoglobin ABG Carboxyhemoglobin POC ABG HHb (Measured) ABG Methemoglobin Jamey Test A-a O2 Difference Respiratory Index Hgb O2 Saturation Vent Mode FiO2 Pressure Support CPAP Sodium Potassium Chloride Carbon Dioxide Anion Gap BUN Creatinine Est GFR ( Amer) Est GFR (Non-Af Amer) POC Glucose (mg/dL) 214 H Random Glucose Serum Osmolality 370 H Calcium Phosphorus Magnesium Total Bilirubin AST ALT Alkaline Phosphatase Total Protein Albumin Globulin Albumin/Globulin Ratio Urine Osmolality 719
--- NOTE | 2018-01-20 17:59 | CP.PCM.PN ---
Subjective - Date & Time of Evaluation Date of Evaluation: 01/20/18 Time of Evaluation: 16:00 - Subjective Subjective: pt seen and evaluated, CAP and intubated for airway protection now with hypernatremia pt is still unrespomsive no active bpdy movement Objective - Vital Signs/Intake and Output Vital Signs (last 24 hours): Temp Pulse Resp BP Pulse Ox 100.3 F H 85 27 H 122/56 L 98 01/20/18 16:00 01/20/18 16:00 01/20/18 16:00 01/20/18 15:23 01/20/18 16:00 Intake and Output: 01/20/18 01/20/18 06:59 18:59 Intake Total 600 500 Output Total 3480 1550 Balance -2880 -1050 - Medications Medications: Current Medications Acetaminophen (Tylenol 650mg/20.3ml Solution Ud) 650 mg NG Q6 PRN PRN Reason: GIVE FOR TEMP. 100*F OR ABOVE Last Admin: 01/20/18 02:46 Dose: 650 mg Albuterol Sulfate (Albuterol 0.083% Inhal Lynne (2.5 Mg/3 Ml) Ud) 2.5 mg IH RQ6 [facility] Last Admin: 01/20/18 13:29 Dose: 2.5 mg Aspirin (Aspirin Chewable) 81 mg PO DAILY [facility] Last Admin: 01/20/18 11:16 Dose: 81 mg Carvedilol (Coreg) 25 mg PO BID [facility] Last Admin: 01/20/18 11:16 Dose: 25 mg Heparin Sodium (Porcine) (Heparin) 5,000 units SC Q8 [facility] Last Admin: 01/20/18 06:01 Dose: 5,000 units Hydralazine HCl (Apresoline) 50 mg PO Q8 [facility] Last Admin: 01/20/18 06:01 Dose: 50 mg Ceftriaxone Sodium 1 gm/ (Sodium Chloride) 100 mls @ 100 mls/hr IVPB DAILY [facility] Last Admin: 01/20/18 11:16 Dose: 100 mls/hr Levetiracetam 750 mg/ Sodium (Chloride) 107.5 mls @ 420 mls/hr IVPB Q12H [facility] Dextrose (Dextrose 5% In Water 1000 Ml) 1,000 mls @ 125 mls/hr IV .Q8H [facility] Insulin Aspart (Novolog) 0 unit SC Q4H [facility] PRN Reason: Protocol Last Admin: 01/20/18 09:16 Dose: Not Given Insulin Glargine (Lantus) 20 unit SC HS [facility] Pantoprazole Sodium (Protonix Ec Tab) 40 mg PO DAILY [facility] Rosuvastatin Calcium (Crestor) 10 mg PO HS [facility] Last Admin: 01/19/18 21:40 Dose: 10 mg Sennosides (Senokot Tab) 8.6 mg PO DAILY [facility] Last Admin: 01/20/18 11:16 Dose: 8.6 mg - Labs Labs: 01/20/18 06:08 01/20/18 06:07 PT 10.6 SECONDS (9.7-12.2) 01/16/18 12:27 INR 0.9 01/16/18 12:27 APTT 33 SECONDS (21-34) 01/16/18 12:27 Assessment and Plan (1) Status epilepticus Assessment & Plan: Assessment: 67M W/ likely new onset seizures, CAP and intubated for airway protection now with hypernatremia Plan: -hypernatremia: not given lasix, suspect DI, obtain urine osmol, serum osmol and increase free water to 400 ml q4hrs, start desmopressin , STAT CT HEAD -Neuro: neurology input as patient off versed and now not responsive ?adjust AEDs, check levels -Cards:off pressors, MAP >65 -Hypoxic respiratory failure: intubated to protect airway,titrate FiO2 to keep spo2 >92, possible CAP empirically on abx --Ceftriaxone, culture neg, complete 8 days abx CKD stage I: possible post ATN diuresis, will start LR, pending urine osmol, serum osmol, UA GI: continue tube feeds -Endo: DM on insulin, Lantus 15 QD am, ISS aspart PUD/DVT PPX: Protonix and heparin Awaiting neurology input as to further plan for MRI, --will obtain CT head as patient has polyuria and is not responsive despite off sedation. Status: Acute (2) COPD (chronic obstructive pulmonary disease) Status: Acute (3) Congestive heart failure Status: Acute (4) Diabetes Status: Acute (5) Hypernatremia Assessment & Plan: 1. hypernatremia sec to intravascular volume depletion 2. pre renal azotemia 3. htn 4. DM 5. AMS r/o acute cva 6. s/p intubation for air way protection check urine lytes , na,k, cl, osm, glucose, urea agree with free water start ivf d5w at 125 ml/hr pt has a free water deficit about 9 lit need to corrected in 2 days+ insensible loss about 1 lit/day + urine out put which need to be corrected in 72 hrs Status: Acute
[2018-01-20 18:19] LABS: OSMOLALITY,URINE 756 mosm/kg (300-1000)
[2018-01-20] MEDS: (Lantus) Insulin Glargine, Recombinant SC SCH (21:02)
[2018-01-21] MEDS: Albuterol 0.083% Inhal Sol (2.5 mg/3 mL) UD IH SCH ×4 (01:41→19:52)
[2018-01-21] MEDS: Acetaminophen 650mg/20.3ml solution UD NG PRN ×3 (03:00→23:49)
[2018-01-21] MEDS: (Novolog) Insulin Aspart, Recombinant 100 u/ml 10 ml vial SC SCH ×6 (03:46→23:49)
[2018-01-21 04:24] LABS: URINE BILIRUBIN NEGATIVE (NEGATIVE); URINE BLOOD NEGATIVE (NEGATIVE); URINE CLARITY Clear (Clear); URINE COLOR Yellow (YELLOW); URINE GLUCOSE (UA) 3+ mg/dL (Normal); URINE LEUKOCYTE ESTERASE NEG Leu/uL (Negative); URINE PROTEIN 1+ mg/dL (NEGATIVE); URINE UROBILINOGEN NORMAL mg/dL (0.2-1.0)
[2018-01-21 04:56] LABS: BASO % 0.4 % (0.0-2.0); EOS % 0.2 % (0.0-4.0); HEMOGLOBIN 12.8 g/dL (12.0-18.0); LYMPH # 1.1 K/uL (1.0-4.3); LYMPH % 18.2 % (20.0-40.0); MEAN CORPUSCULAR HEMOGLOBIN 31.1 pg (27.0-31.0); MEAN CORPUSCULAR HGB CONC 31.4 g/dL (33.0-37.0); MEAN PLATELET VOLUME 11.9 fL (7.2-11.7); MONO # 0.6 K/uL (0.0-0.8); NEUT # 4.5 K/uL (1.8-7.0); NEUT % 71.2 % (50.0-75.0); NRBC % 0.2 % (0.0-2.0); RBC 4.11 Mil/uL (4.40-5.90); RED CELL DISTRIBUTION WIDTH 13.8 % (11.5-14.5); WHITE BLOOD COUNT 6.3 K/uL (4.8-10.8)
[2018-01-21 06:00] LABS: ARTERIAL BLOOD GAS HCO3 27.1 mmol/L (21-28); ARTERIAL BLOOD GAS O2 SAT 98.7 % (95-98); ARTERIAL BLOOD GAS PCO2 47 mm/Hg (35-45); ARTERIAL BLOOD GAS PH 7.39 (7.35-7.45); ARTERIAL BLOOD GAS PO2 101 mm/Hg (80-100); ARTERIAL BLOOD GAS TCO2 29.9 mmol/L (22-28)
[2018-01-21 07:04] LABS: CALCIUM 7.9 mg/dl (8.6-10.4)
[2018-01-21 07:06] LABS: ALBUMIN 3.1 g/dL (3.5-5.0)
--- NOTE | 2018-01-21 09:37 | RAD ---
HISTORY: et tube COMPARISON: Chest radiograph dated 01/20/2018. FINDINGS: LUNGS: Questionable left basilar atelectasis. PLEURA: Questionable small left pleural effusion. No pneumothorax apparent. CARDIOVASCULAR: Prior sternotomy with sternal wires and surgical clips redemonstrated. Atherosclerotic aortic calcifications. Cardiomediastinal silhouette unchanged. OSSEOUS STRUCTURES: Unchanged. VISUALIZED UPPER ABDOMEN: Normal. OTHER FINDINGS: Endotracheal and enteric tubes, unchanged. IMPRESSION: Questionable small left pleural effusion and/or atelectasis.
[2018-01-21] MEDS ORDERED: Pantoprazole 40 mg EC Tab PO SCH (10:00)
--- NOTE | 2018-01-21 11:22 | CON ---
DATE:01/20/2018 LOCATION: The patient is located in ICU, bed #5 REQUESTED BY: Arash Rose MD REASON FOR RENAL CONSULTATION: Severe hypernatremia, for further evaluation. HISTORY OF PRESENT ILLNESS: Mr. Latif is a 67-year-old elderly male with a past medical history significant for hypertension for about 20 years, diabetes for 20 years, hyperlipidemia, coronary artery disease, status post CABG in 2004, and also CVA in the past, who was brought in by family as per the patient's daughter at bedside. The patient was not responding when she called him on the phone on 01/16/2008 approximately around 11:30 and the patient was not responding on the phone and she went there, she found him nonverbal and stiff appearing on his bed and EMS was called in and the patient was given Versed for possible seizures. The patient was admitted to ICU, intubated for airway protection. The patient is not responding to painful stimuli and unable to get a history or anything from the patient. Chart reviewed and history obtained from the review of the chart, and also from the patient's daughter at bedside. The patient was admitted with altered mental status, possible CVA versus seizures on admission. PAST MEDICAL HISTORY: Significant for diabetes, hypertension for 20 years, hyperlipidemia, coronary artery disease, and CVA. PAST SURGICAL HISTORY: Status post CABG in 2004. SOCIAL HISTORY: Denies any smoking as per the patient's daughter. Occasional alcohol use. No drug abuse. PERSONAL HISTORY: He is and he has two children. Both parents . CURRENT MEDICATIONS: Include as follows: Albuterol inhaler 3 mL 2.5 mg inhaler q.6 hours, hydralazine 50 mg p.o. q.8 hours, aspirin 81 mg daily, Rocephin 1 gm daily, Coreg 25 mg p.o. b.i.d., Crestor 10 mg p.o. at bedtime, subcu heparin 5000 q.8 hours, Lantus insulin 20 units subcu at bedtime, Keppra 750 mg q.12 hours, NovoLog insulin, Protonix 40 mg p.o. daily, Senokot 8.6 mg p.o. daily, Tylenol 650 mg by NG tube q.6 hours. The patient was also given desmopressin, given 2 mcg IV x1 dose. REVIEW OF THE SYSTEMS: Significant for altered mental status and confusion. All other review of systems reviewed and are negative. PHYSICAL EXAMINATION: VITAL SIGNS: As follows: His blood pressure is 141/60, pulse 87, respirations about 25, 27 per minute, temperature is 100.3 and T-max is 101.2. Weight is 227 pounds, and height is 5 feet 9 inches, and BMI is 33.58. GENERAL: Mr. Latif is a 67-year-old elderly male, on ventilator. HEENT: Pupils normal and reactive to light and accommodation. Conjunctivae pink. Sclerae anicteric. NECK: Trachea is midline. LUNGS: Symmetric on both sides. Bilateral breath sounds present. Clear on auscultation. CVS: [place] at the fifth intercostal space, midclavicular line. S1, S2 audible. No murmur or gallop. ABDOMEN: Normal in appearance, soft, tympanic. No guarding. No rigidity. No hepatosplenomegaly. COMPANY MARKER: The patient is on ventilator, not responding to deep painful stimuli. Sensory system, not moving for the painful stimuli. Motor system, questionable weakness on the left upper extremity, power 0/5. EXTREMITIES: No cyanosis, no clubbing, no edema. GENITOURINARY: In the last 24 hours as of 01/17/2018, intake is 112 mL and output is 475, -362. As of 01/18/2018, intake is 3335 and output is 1805. As of 01/19/2018, his intake is 3200 and output is 2400. As of 01/20/2018, his intake is 1330 and output is 3960 after Lasix and urine output from is about 2030 mL. LABORATORY DATA: Include as follows: As of 01/20/2089, WBC 7.6, hemoglobin 14.8, hematocrit is 44.6, platelets 166, and pH 7.39, pCO2 45, and pO2 90, bicarb is 26.2, saturation 98%. Sodium 162, potassium is 5, chloride 124, CO2 25, BUN 50, creatinine 1.6, glucose 321, corrected sodium is about 165 to 166, and calcium is 8.9, phosphorus 3.6, magnesium 2.8. Total bili 0.88, AST 76, ALT 47, alkaline phosphatase 68. His urine osmolality is 719 and repeat one urine osmolality is 756 and urine sodium is 49, and urea is 758, and urine glucose is 4679 mg/dL. His other laboratory data as of 01/19/2018, serum sodium is 154, BUN and creatinine 58/1.7. As of 01/18/2018, sodium is 145, potassium is 4, chloride 110, CO2 23, BUN 57, creatinine 1.8. As of 01/17/2018, BUN and creatinine 50/1.9, sodium is 140, glucose is 115. As of 01/16/2018, BUN and creatinine 43/1.6 and sodium is 145. As of 12/29/19, creatinine 1.3. As of 01/10/2018, creatinine 1.4. As of 01/16/2018, creatinine 1.6. As of 01/16/2018, BUN and creatinine 43/1.6. As of 01/10/2008, BUN and creatinine 31/1.4. As of 01/08/2018, BUN and creatinine 31/1.3. Sodium 142. Echocardiogram as of 01/09/2018, left ventricular ejection fraction 61%. IMPRESSION: There is mild concentric left ventricular hypertrophy, left ventricular systolic function is normal, and the adhesion fraction is 65% to 70%, moderate pulmonary hypertension. CT of the head as of 01/20/2018, impression: No acute intracranial pathology. As of 01/17/2018, CT of the head, impression: No acute intracranial abnormality. Large old right posterior cerebral artery territory infarction involving the occipital lobe and old lacunar infarctions in the left borrero radiata, basal ganglia, thalamus, and right posterior subinsular cortex, moderate chronic microangiopathy changes and mild age-related global parenchymal volume loss. In summary, Mr. Latif is a 67-year-old elderly male with a history of hypertension, diabetes for more than 20 years, cerebrovascular accident, was admitted with altered mental status and confusion and found unresponsive on the bed by the family. Now, the patient was on ventilator there for airway protection, not responding with questionable left upper extremity weakness and increasing serum sodium and increased BUN and creatinine. 1. Hypernatremia, most likely secondary to intravascular volume depletion secondary to CO2 loss. 2. Polyuria, most likely secondary to osmotic diuresis, secondary to uncontrolled diabetes. 3. Acute renal failure, most likely secondary to intravascular depletion, cannot rule out underlying diabetic nephropathy versus hypertensive nephrosclerosis. 4. Respiratory failure. 5. Old cerebrovascular accident, cannot rule out acute cerebrovascular accident in the setting of altered mental status, rule out anoxic encephalopathy also. The patient has a free water deficit about 15%, which is approximately about 8 to 9 liters, need to be replaced and corrected the sodium in 48 to 72 hours approximately, and also needs to be replaced, insensible loss about 1 liter per day and urine volume. Overall, about 5 liters of free water need to be replaced every day. The patient is given free water 400 mL q.4 hours. We will add D5W at 125 cc/hour and also advice strict control of the sugars at this time. Follow up Neurology. Continue Keppra and overall prognosis is guarded, rule out anoxic encephalopathy, rule out new cerebrovascular accident. We will follow with you. Thank you for allowing me to participate in your patient's care. Discussed with Dr. Michaelle Leroy, chemical librarian in rounds. Also check urinalysis and microscopic urine. Baldemar Ruiz MD MTDVinnie
[2018-01-21] MEDS: Pantoprazole 40 mg Susp UD PO SCH (12:21)
[2018-01-21] MEDS ORDERED: Sodium Chloride 0.9% 1,000 ML IV ONE (12:31)
--- NOTE | 2018-01-21 12:35 | CP.PCM.PN ---
Subjective - Date & Time of Evaluation Date of Evaluation: 01/21/18 Time of Evaluation: 12:35 - Subjective Subjective: pt is seen and examined, follow up consult is dictated #[id number] Objective - Vital Signs/Intake and Output Vital Signs (last 24 hours): Temp Pulse Resp BP Pulse Ox 99.4 F 76 27 H 141/75 98 01/21/18 08:00 01/21/18 11:25 01/21/18 11:25 01/21/18 11:25 01/21/18 11:25 Intake and Output: 01/21/18 01/21/18 06:59 18:59 Intake Total 2375 930 Output Total 1680 650 Balance 695 280 - Medications Medications: Current Medications Acetaminophen (Tylenol 650mg/20.3ml Solution Ud) 650 mg NG Q6 PRN PRN Reason: GIVE FOR TEMP. 100*F OR ABOVE Last Admin: 01/21/18 03:00 Dose: 650 mg Albuterol Sulfate (Albuterol 0.083% Inhal Lynne (2.5 Mg/3 Ml) Ud) 2.5 mg IH RQ6 [facility] Last Admin: 01/21/18 07:25 Dose: 2.5 mg Aspirin (Aspirin Chewable) 81 mg PO DAILY [facility] Last Admin: 01/21/18 10:25 Dose: 81 mg Carvedilol (Coreg) 25 mg PO BID [facility] Last Admin: 01/21/18 10:25 Dose: 25 mg Heparin Sodium (Porcine) (Heparin) 5,000 units SC Q8 [facility] Last Admin: 01/21/18 05:09 Dose: 5,000 units Hydralazine HCl (Apresoline) 50 mg PO Q8 [facility] Last Admin: 01/21/18 05:09 Dose: 50 mg Levetiracetam 750 mg/ Sodium (Chloride) 107.5 mls @ 420 mls/hr IVPB Q12H [facility] Last Admin: 01/21/18 03:00 Dose: 420 mls/hr Sodium Chloride (Sodium Chloride 0.9%) 1,000 mls @ 1,000 mls/hr IV .Q1H ONE Stop: 01/21/18 13:30 Sodium Chloride (Sodium Chloride 0.9%) 500 mls @ 70 mls/hr IV .Q7H9M [facility] Insulin Aspart (Novolog) 0 unit SC Q4H [facility] PRN Reason: Protocol Last Admin: 01/21/18 12:00 Dose: 6 unit Insulin Glargine (Lantus) 20 unit SC HS [facility] Last Admin: 01/20/18 21:02 Dose: 20 u Pantoprazole Sodium (Protonix Susp) 40 mg PO 1000 [facility] Last Admin: 01/21/18 12:21 Dose: 40 mg Rosuvastatin Calcium (Crestor) 10 mg PO HS [facility] Last Admin: 01/20/18 21:02 Dose: 10 mg Sennosides (Senokot Tab) 8.6 mg PO DAILY [facility] Last Admin: 01/21/18 10:25 Dose: 8.6 mg - Labs Labs: 01/21/18 04:53 01/21/18 04:10 PT 10.6 SECONDS (9.7-12.2) 01/16/18 12:27 INR 0.9 01/16/18 12:27 APTT 33 SECONDS (21-34) 01/16/18 12:27
[2018-01-21] MEDS: Sodium Chloride 0.9% 500 ML IV SCH ×2 (14:19→14:20)
--- NOTE | 2018-01-21 15:04 | CP.CCUPN ---
CCU Subjective - Physician Review Events Since Last Encounter (Free Text): 01/21/18 14:57 more alert today, not following commands. CCU Objective - Vital Signs / Intake & Output Vital Signs (Last 4 hours): Vital Signs Temp Pulse Resp BP Pulse Ox 01/21/18 14:25 75 26 H 142/59 L 98 01/21/18 14:21 74 27 H 143/61 96 01/21/18 14:00 74 28 H 98 01/21/18 13:25 77 15 157/63 H 98 01/21/18 13:00 70 27 H 97 01/21/18 12:26 79 31 H 154/69 H 96 01/21/18 12:00 99.8 F H 73 21 99 01/21/18 11:25 76 27 H 141/75 98 01/21/18 11:00 73 16 99 Intake and Output (Last 8hrs): Intake & Output 01/20/18 01/21/18 01/21/18 22:59 06:59 14:59 Intake Total 850 1675 2205 Output Total 480 1200 830 Balance 846 054 4283 Weight 206 lb 8 oz Intake: Intake, IV Amount 500 1225 1555 Left Antecubital 100 Left Hand 500 1125 1555 Oral 250 Tube Feeding 350 450 400 Output: Urine 480 1200 830 Urethral (Stanley) 480 1200 830 - Physical Exam Physical Exam Limitations: Positive for: Altered Mental Status Head: Positive for: Atraumatic, Normocephalic Pupils: Positive for: Other (corneal reflex) Neck: Positive for: Normal Range of Motion Respiratory/Chest: Positive for: Clear to Auscultation. Negative for: Respiratory Distress Cardiovascular: Positive for: Regular Rate and Rhythm, Normal S1, S2. Negative for: Tachycardic Abdomen: Positive for: Normal Bowel Sounds, Other (obese). Negative for: Tenderness, Distention, Peritoneal Signs Lower Extremity: Positive for: Normal Inspection Neurological: Positive for: Other (no response to pain) - Medications Active Medications: Active Medications Generic Name Dose Route Start Last Admin Trade Name Freq PRN Reason Stop Dose Admin Acetaminophen 650 mg 01/19/18 00:50 01/21/18 03:00 Tylenol 650mg/20.3ml Solution Ud NG 650 mg Q6 PRN Administration GIVE FOR TEMP. 100*F OR ABOVE Albuterol Sulfate 2.5 mg 01/16/18 14:45 01/21/18 13:11 Albuterol 0.083% Inhal Lynne (2.5 Mg/3 Ml) Ud IH Not Given RQ6 SHINE Aspirin 81 mg 01/17/18 10:00 01/21/18 10:25 Aspirin Chewable PO 81 mg DAILY SHINE Administration Carvedilol 25 mg 01/16/18 18:00 01/21/18 10:25 Coreg PO 25 mg BID SHINE Administration Heparin Sodium (Porcine) 5,000 units 01/17/18 14:00 01/21/18 14:15 Heparin SC 5,000 units Q8 SHINE Administration Hydralazine HCl 50 mg 01/16/18 22:00 01/21/18 14:20 Apresoline PO 50 mg Q8 SHINE Administration Levetiracetam 750 mg/ Sodium 107.5 mls @ 420 mls/hr 01/20/18 16:30 01/21/18 03:00 Chloride IVPB 420 mls/hr Q12H SHINE Administration Sodium Chloride 500 mls @ 70 mls/hr 01/21/18 12:45 01/21/18 14:20 Sodium Chloride 0.9% IV Not Given .[id number] SHINE Insulin Aspart 0 unit 01/20/18 19:11 01/21/18 12:00 Novolog SC 6 unit Q4H SHINE Administration Protocol Insulin Glargine 20 unit 01/20/18 17:13 01/20/18 21:02 Lantus SC 20 u HS SHINE Administration Pantoprazole Sodium 40 mg 01/21/18 12:00 01/21/18 12:21 Protonix Susp PO 40 mg 1000 SHINE Administration Rosuvastatin Calcium 10 mg 01/16/18 22:00 01/20/18 21:02 Crestor PO 10 mg HS SHINE Administration Sennosides 8.6 mg 01/17/18 14:00 01/21/18 10:25 Senokot Tab PO 8.6 mg DAILY SHINE Administration - Patient Studies Lab Studies: Microbiology Studies 01/17/18 15:26 Blood Culture - Preliminary Blood NO GROWTH AFTER 3 DAYS 01/17/18 15:26 Blood Culture - Preliminary Blood NO GROWTH AFTER 3 DAYS Lab Studies 01/21/18 01/21/18 01/21/18 Range/Units 11:26 07:50 06:45 WBC (4.8-10.8) K/uL RBC (4.40-5.90) Mil/uL Hgb (12.0-18.0) g/dL Hct (35.0-51.0) % MCV (80.0-94.0) fL MCH (27.0-31.0) pg MCHC (33.0-37.0) g/dL RDW (11.5-14.5) % Plt Count (130-400) K/uL MPV (7.2-11.7) fL Neut % (Auto) (50.0-75.0) % Lymph % (Auto) (20.0-40.0) % [place] % (Auto) (0.0-10.0) % Eos % (Auto) (0.0-4.0) % Baso % (Auto) (0.0-2.0) % Neut # (Auto) (1.8-7.0) K/uL Lymph # (Auto) (1.0-4.3) K/uL [place] # (Auto) (0.0-0.8) K/uL Eos # (Auto) (0.0-0.7) K/uL Baso # (Auto) (0.0-0.2) K/uL Puncture Site pCO2 (35-45) mm/Hg pO2 (80-100) mm/Hg HCO3 (21-28) mmol/L ABG pH (7.35-7.45) ABG Total CO2 (22-28) mmol/L ABG O2 Saturation (95-98) % ABG Base Excess (-2.0-3.0) mmol/L Jamey Test ABG Potassium (3.6-5.2) mmol/L A-a O2 Difference mm/Hg Respiratory Index Glucose (75-110) mg/dl Lactate (0.7-2.1) mmol/L Vent Mode Mechanical Rate FiO2 % Tidal Volume PEEP Crit Value Called To Crit Value Called By Crit Value Read Back Blood Gas Notified Time Sodium (132-148) mmol/L Potassium (3.6-5.2) mmol/L Chloride (98-107) mmol/L Carbon Dioxide (22-30) mmol/L Anion Gap (10-20) BUN (9-20) mg/dL Creatinine (0.8-1.5) mg/dL Est GFR ( Amer) Est GFR (Non-Af Amer) POC Glucose (mg/dL) 285 H 282 H 286 H (65-110) mg/dL Random Glucose (75-110) mg/dL Calcium (8.6-10.4) mg/dl Phosphorus (2.5-4.5) mg/dL Magnesium (1.6-2.3) mg/dL Total Bilirubin (0.2-1.3) mg/dL AST (17-59) U/L ALT (21-72) U/L Alkaline Phosphatase (38-126) U/L Total Protein (6.3-8.3) g/dL Albumin (3.5-5.0) g/dL Globulin (2.2-3.9) gm/dL Albumin/Globulin Ratio (1.0-2.1) Arterial Blood Potassium (3.6-5.2) mmol/L Urine Color (YELLOW) Urine Clarity (Clear) Urine pH (5.0-8.0) Ur Specific [place] (1.003-1.030) Urine Protein (NEGATIVE) mg/dL Urine Glucose (UA) (Normal) mg/dL Urine Ketones (NEGATIVE) mg/dL Urine Blood (NEGATIVE) Urine Nitrate (NEGATIVE) Urine Bilirubin (NEGATIVE) Urine Urobilinogen (0.2-1.0) mg/dL Ur Leukocyte Esterase (Negative) Minh/uL Urine WBC (Auto) (0-5) /hpf Urine RBC (Auto) (0-3) /hpf Urine Osmolality (300-1000) mosm/kg Ur Random Sodium mmol/L Ur Random Potassium mmol/L Ur Random Urea Nitrogn mg/dL Ur Random Glucose mg/dL 01/21/18 01/21/18 01/21/18 Range/Units 05:02 04:53 04:10 WBC 6.3 (4.8-10.8) K/uL RBC 4.11 L (4.40-5.90) Mil/uL Hgb 12.8 D (12.0-18.0) g/dL Hct 40.7 (35.0-51.0) % MCV 99.0 H D (80.0-94.0) fL MCH 31.1 H (27.0-31.0) pg MCHC 31.4 L (33.0-37.0) g/dL RDW 13.8 (11.5-14.5) % Plt Count 135 (130-400) K/uL MPV 11.9 H (7.2-11.7) fL Neut % (Auto) 71.2 (50.0-75.0) % Lymph % (Auto) 18.2 L (20.0-40.0) % [place] % (Auto) 10.0 (0.0-10.0) % Eos % (Auto) 0.2 (0.0-4.0) % Baso % (Auto) 0.4 (0.0-2.0) % Neut # (Auto) 4.5 (1.8-7.0) K/uL Lymph # (Auto) 1.1 (1.0-4.3) K/uL [place] # (Auto) 0.6 (0.0-0.8) K/uL Eos # (Auto) 0.0 (0.0-0.7) K/uL Baso # (Auto) 0.0 (0.0-0.2) K/uL Puncture Site R bra pCO2 47 H (35-45) mm/Hg pO2 101 H (80-100) mm/Hg HCO3 27.1 (21-28) mmol/L ABG pH 7.39 (7.35-7.45) ABG Total CO2 29.9 H (22-28) mmol/L ABG O2 Saturation 98.7 H (95-98) % ABG Base Excess 2.8 (-2.0-3.0) mmol/L Jamey Test Na ABG Potassium 4.0 (3.6-5.2) mmol/L A-a O2 Difference 125.0 mm/Hg Respiratory Index 1.2 Glucose 325 H (75-110) mg/dl Lactate 1.2 (0.7-2.1) mmol/L Vent Mode Prvc Mechanical Rate 16 FiO2 40.0 % Tidal Volume 500 PEEP 5 Crit Value Called To Vanessa craft rn nicu Crit Value Called By Cathy lindsey rt Crit Value Read Back Y Blood Gas Notified Time 600 Sodium 166.0 H* 146 (132-148) mmol/L Potassium 4.5 (3.6-5.2) mmol/L Chloride 129.0 H 113 H (98-107) mmol/L Carbon Dioxide 19 L (22-30) mmol/L Anion Gap 19 (10-20) BUN 44 H (9-20) mg/dL Creatinine 1.5 (0.8-1.5) mg/dL Est GFR ( Amer) 56 Est GFR (Non-Af Amer) 47 POC Glucose (mg/dL) (65-110) mg/dL Random Glucose 291 H (75-110) mg/dL Calcium 7.9 L (8.6-10.4) mg/dl Phosphorus 2.9 (2.5-4.5) mg/dL Magnesium 2.7 H (1.6-2.3) mg/dL Total Bilirubin 0.9 (0.2-1.3) mg/dL AST 129 H D (17-59) U/L ALT 56 (21-72) U/L Alkaline Phosphatase 51 (38-126) U/L Total Protein 6.3 (6.3-8.3) g/dL Albumin 3.1 L (3.5-5.0) g/dL Globulin 3.2 (2.2-3.9) gm/dL Albumin/Globulin Ratio 1.0 (1.0-2.1) Arterial Blood Potassium 4.0 (3.6-5.2) mmol/L Urine Color (YELLOW) Urine Clarity (Clear) Urine pH (5.0-8.0) Ur Specific [place] (1.003-1.030) Urine Protein (NEGATIVE) mg/dL Urine Glucose (UA) (Normal) mg/dL Urine Ketones (NEGATIVE) mg/dL Urine Blood (NEGATIVE) Urine Nitrate (NEGATIVE) Urine Bilirubin (NEGATIVE) Urine Urobilinogen (0.2-1.0) mg/dL Ur Leukocyte Esterase (Negative) Minh/uL Urine WBC (Auto) (0-5) /hpf Urine RBC (Auto) (0-3) /hpf Urine Osmolality (300-1000) mosm/kg Ur Random Sodium mmol/L Ur Random Potassium mmol/L Ur Random Urea Nitrogn mg/dL Ur Random Glucose mg/dL 01/21/18 01/21/18 01/21/18 Range/Units 04:10 04:10 03:07 WBC (4.8-10.8) K/uL RBC (4.40-5.90) Mil/uL Hgb (12.0-18.0) g/dL Hct (35.0-51.0) % MCV (80.0-94.0) fL MCH (27.0-31.0) pg MCHC (33.0-37.0) g/dL RDW (11.5-14.5) % Plt Count (130-400) K/uL MPV (7.2-11.7) fL Neut % (Auto) (50.0-75.0) % Lymph % (Auto) (20.0-40.0) % [place] % (Auto) (0.0-10.0) % Eos % (Auto) (0.0-4.0) % Baso % (Auto) (0.0-2.0) % Neut # (Auto) (1.8-7.0) K/uL Lymph # (Auto) (1.0-4.3) K/uL [place] # (Auto) (0.0-0.8) K/uL Eos # (Auto) (0.0-0.7) K/uL Baso # (Auto) (0.0-0.2) K/uL Puncture Site pCO2 (35-45) mm/Hg pO2 (80-100) mm/Hg HCO3 (21-28) mmol/L ABG pH (7.35-7.45) ABG Total CO2 (22-28) mmol/L ABG O2 Saturation (95-98) % ABG Base Excess (-2.0-3.0) mmol/L Jamey Test ABG Potassium (3.6-5.2) mmol/L A-a O2 Difference mm/Hg Respiratory Index Glucose (75-110) mg/dl Lactate (0.7-2.1) mmol/L Vent Mode Mechanical Rate FiO2 % Tidal Volume PEEP Crit Value Called To Crit Value Called By Crit Value Read Back Blood Gas Notified Time Sodium (132-148) mmol/L Potassium (3.6-5.2) mmol/L Chloride (98-107) mmol/L Carbon Dioxide (22-30) mmol/L Anion Gap (10-20) BUN (9-20) mg/dL Creatinine (0.8-1.5) mg/dL Est GFR ( Amer) Est GFR (Non-Af Amer) POC Glucose (mg/dL) 239 H (65-110) mg/dL Random Glucose (75-110) mg/dL Calcium (8.6-10.4) mg/dl Phosphorus (2.5-4.5) mg/dL Magnesium (1.6-2.3) mg/dL Total Bilirubin (0.2-1.3) mg/dL AST (17-59) U/L ALT (21-72) U/L Alkaline Phosphatase (38-126) U/L Total Protein (6.3-8.3) g/dL Albumin (3.5-5.0) g/dL Globulin (2.2-3.9) gm/dL Albumin/Globulin Ratio (1.0-2.1) Arterial Blood Potassium (3.6-5.2) mmol/L Urine Color Yellow (YELLOW) Urine Clarity Clear (Clear) Urine pH 5.0 (5.0-8.0) Ur Specific [place] 1.027 (1.003-1.030) Urine Protein 1+ H (NEGATIVE) mg/dL Urine Glucose (UA) 3+ H (Normal) mg/dL Urine Ketones Negative (NEGATIVE) mg/dL Urine Blood Negative (NEGATIVE) Urine Nitrate Negative (NEGATIVE) Urine Bilirubin Negative (NEGATIVE) Urine Urobilinogen Normal (0.2-1.0) mg/dL Ur Leukocyte Esterase Neg (Negative) Minh/uL Urine WBC (Auto) 2 (0-5) /hpf Urine RBC (Auto) 1 (0-3) /hpf Urine Osmolality (300-1000) mosm/kg Ur Random Sodium mmol/L Ur Random Potassium 25.0 mmol/L Ur Random Urea Nitrogn mg/dL Ur Random Glucose mg/dL 01/20/18 01/20/18 01/20/18 Range/Units 22:45 20:18 18:08 WBC (4.8-10.8) K/uL RBC (4.40-5.90) Mil/uL Hgb (12.0-18.0) g/dL Hct (35.0-51.0) % MCV (80.0-94.0) fL MCH (27.0-31.0) pg MCHC (33.0-37.0) g/dL RDW (11.5-14.5) % Plt Count (130-400) K/uL MPV (7.2-11.7) fL Neut % (Auto) (50.0-75.0) % Lymph % (Auto) (20.0-40.0) % [place] % (Auto) (0.0-10.0) % Eos % (Auto) (0.0-4.0) % Baso % (Auto) (0.0-2.0) % Neut # (Auto) (1.8-7.0) K/uL Lymph # (Auto) (1.0-4.3) K/uL [place] # (Auto) (0.0-0.8) K/uL Eos # (Auto) (0.0-0.7) K/uL Baso # (Auto) (0.0-0.2) K/uL Puncture Site pCO2 (35-45) mm/Hg pO2 (80-100) mm/Hg HCO3 (21-28) mmol/L ABG pH (7.35-7.45) ABG Total CO2 (22-28) mmol/L ABG O2 Saturation (95-98) % ABG Base Excess (-2.0-3.0) mmol/L Jamey Test ABG Potassium (3.6-5.2) mmol/L A-a O2 Difference mm/Hg Respiratory Index Glucose (75-110) mg/dl Lactate (0.7-2.1) mmol/L Vent Mode Mechanical Rate FiO2 % Tidal Volume PEEP Crit Value Called To Crit Value Called By Crit Value Read Back Blood Gas Notified Time Sodium (132-148) mmol/L Potassium (3.6-5.2) mmol/L Chloride (98-107) mmol/L Carbon Dioxide (22-30) mmol/L Anion Gap (10-20) BUN (9-20) mg/dL Creatinine (0.8-1.5) mg/dL Est GFR ( Amer) Est GFR (Non-Af Amer) POC Glucose (mg/dL) 315 H 263 H (65-110) mg/dL Random Glucose (75-110) mg/dL Calcium (8.6-10.4) mg/dl Phosphorus (2.5-4.5) mg/dL Magnesium (1.6-2.3) mg/dL Total Bilirubin (0.2-1.3) mg/dL AST (17-59) U/L ALT (21-72) U/L Alkaline Phosphatase (38-126) U/L Total Protein (6.3-8.3) g/dL Albumin (3.5-5.0) g/dL Globulin (2.2-3.9) gm/dL Albumin/Globulin Ratio (1.0-2.1) Arterial Blood Potassium (3.6-5.2) mmol/L Urine Color (YELLOW) Urine Clarity (Clear) Urine pH (5.0-8.0) Ur Specific [place] (1.003-1.030) Urine Protein (NEGATIVE) mg/dL Urine Glucose (UA) (Normal) mg/dL Urine Ketones (NEGATIVE) mg/dL Urine Blood (NEGATIVE) Urine Nitrate (NEGATIVE) Urine Bilirubin (NEGATIVE) Urine Urobilinogen (0.2-1.0) mg/dL Ur Leukocyte Esterase (Negative) Minh/uL Urine WBC (Auto) (0-5) /hpf Urine RBC (Auto) (0-3) /hpf Urine Osmolality 756 (300-1000) mosm/kg Ur Random Sodium 49 mmol/L Ur Random Potassium mmol/L Ur Random Urea Nitrogn 758 mg/dL Ur Random Glucose 4679 mg/dL 01/20/18 01/20/18 Range/Units 18:08 17:37 WBC (4.8-10.8) K/uL RBC (4.40-5.90) Mil/uL Hgb (12.0-18.0) g/dL Hct (35.0-51.0) % MCV (80.0-94.0) fL MCH (27.0-31.0) pg MCHC (33.0-37.0) g/dL RDW (11.5-14.5) % Plt Count (130-400) K/uL MPV (7.2-11.7) fL Neut % (Auto) (50.0-75.0) % Lymph % (Auto) (20.0-40.0) % [place] % (Auto) (0.0-10.0) % Eos % (Auto) (0.0-4.0) % Baso % (Auto) (0.0-2.0) % Neut # (Auto) (1.8-7.0) K/uL Lymph # (Auto) (1.0-4.3) K/uL [place] # (Auto) (0.0-0.8) K/uL Eos # (Auto) (0.0-0.7) K/uL Baso # (Auto) (0.0-0.2) K/uL Puncture Site pCO2 (35-45) mm/Hg pO2 (80-100) mm/Hg HCO3 (21-28) mmol/L ABG pH (7.35-7.45) ABG Total CO2 (22-28) mmol/L ABG O2 Saturation (95-98) % ABG Base Excess (-2.0-3.0) mmol/L Jamey Test ABG Potassium (3.6-5.2) mmol/L A-a O2 Difference mm/Hg Respiratory Index Glucose (75-110) mg/dl Lactate (0.7-2.1) mmol/L Vent Mode Mechanical Rate FiO2 % Tidal Volume PEEP Crit Value Called To Crit Value Called By Crit Value Read Back Blood Gas Notified Time Sodium (132-148) mmol/L Potassium 4.0 (3.6-5.2) mmol/L Chloride (98-107) mmol/L Carbon Dioxide (22-30) mmol/L Anion Gap (10-20) BUN (9-20) mg/dL Creatinine (0.8-1.5) mg/dL Est GFR ( Amer) Est GFR (Non-Af Amer) POC Glucose (mg/dL) 250 H (65-110) mg/dL Random Glucose (75-110) mg/dL Calcium (8.6-10.4) mg/dl Phosphorus (2.5-4.5) mg/dL Magnesium (1.6-2.3) mg/dL Total Bilirubin (0.2-1.3) mg/dL AST (17-59) U/L ALT (21-72) U/L Alkaline Phosphatase (38-126) U/L Total Protein (6.3-8.3) g/dL Albumin (3.5-5.0) g/dL Globulin (2.2-3.9) gm/dL Albumin/Globulin Ratio (1.0-2.1) Arterial Blood Potassium (3.6-5.2) mmol/L Urine Color (YELLOW) Urine Clarity (Clear) Urine pH (5.0-8.0) Ur Specific [place] (1.003-1.030) Urine Protein (NEGATIVE) mg/dL Urine Glucose (UA) (Normal) mg/dL Urine Ketones (NEGATIVE) mg/dL Urine Blood (NEGATIVE) Urine Nitrate (NEGATIVE) Urine Bilirubin (NEGATIVE) Urine Urobilinogen (0.2-1.0) mg/dL Ur Leukocyte Esterase (Negative) Minh/uL Urine WBC (Auto) (0-5) /hpf Urine RBC (Auto) (0-3) /hpf Urine Osmolality (300-1000) mosm/kg Ur Random Sodium mmol/L Ur Random Potassium mmol/L Ur Random Urea Nitrogn mg/dL Ur Random Glucose mg/dL Laboratory Results - last 24 hr 01/20/18 01/20/18 01/20/18 17:37 18:08 18:08 WBC RBC Hgb Hct MCV MCH MCHC RDW Plt Count MPV Neut % (Auto) Lymph % (Auto) [place] % (Auto) Eos % (Auto) Baso % (Auto) Neut # (Auto) Lymph # (Auto) [place] # (Auto) Eos # (Auto) Baso # (Auto) Puncture Site pCO2 pO2 HCO3 ABG pH ABG Total CO2 ABG O2 Saturation ABG Base Excess Jamey Test ABG Potassium A-a O2 Difference Respiratory Index Glucose Lactate Vent Mode Mechanical Rate FiO2 Tidal Volume PEEP Crit Value Called To Crit Value Called By Crit Value Read Back Blood Gas Notified Time Sodium Potassium 4.0 Chloride Carbon Dioxide Anion Gap BUN Creatinine Est GFR ( Amer) Est GFR (Non-Af Amer) POC Glucose (mg/dL) 250 H Random Glucose Calcium Phosphorus Magnesium Total Bilirubin AST ALT Alkaline Phosphatase Total Protein Albumin Globulin Albumin/Globulin Ratio Arterial Blood Potassium Urine Color Urine Clarity Urine pH Ur Specific [place] Urine Protein Urine Glucose (UA) Urine Ketones Urine Blood Urine Nitrate Urine Bilirubin Urine Urobilinogen Ur Leukocyte Esterase Urine WBC (Auto) Urine RBC (Auto) Urine Osmolality 756 Ur Random Sodium 49 Ur Random Potassium Ur Random Urea Nitrogn 758 Ur Random Glucose 4679 01/20/18 01/20/18 01/21/18 20:18 22:45 03:07 WBC RBC Hgb Hct MCV MCH MCHC RDW Plt Count MPV Neut % (Auto) Lymph % (Auto) [place] % (Auto) Eos % (Auto) Baso % (Auto) Neut # (Auto) Lymph # (Auto) [place] # (Auto) Eos # (Auto) Baso # (Auto) Puncture Site pCO2 pO2 HCO3 ABG pH ABG Total CO2 ABG O2 Saturation ABG Base Excess Jamey Test ABG Potassium A-a O2 Difference Respiratory Index Glucose Lactate Vent Mode Mechanical Rate FiO2 Tidal Volume PEEP Crit Value Called To Crit Value Called By Crit Value Read Back Blood Gas Notified Time Sodium Potassium Chloride Carbon Dioxide Anion Gap BUN Creatinine Est GFR ( Amer) Est GFR (Non-Af Amer) POC Glucose (mg/dL) 263 H 315 H 239 H Random Glucose Calcium Phosphorus Magnesium Total Bilirubin AST ALT Alkaline Phosphatase Total Protein Albumin Globulin Albumin/Globulin Ratio Arterial Blood Potassium Urine Color Urine Clarity Urine pH Ur Specific [place] Urine Protein Urine Glucose (UA) Urine Ketones Urine Blood Urine Nitrate Urine Bilirubin Urine Urobilinogen Ur Leukocyte Esterase Urine WBC (Auto) Urine RBC (Auto) Urine Osmolality Ur Random Sodium Ur Random Potassium Ur Random Urea Nitrogn Ur Random Glucose 01/21/18 01/21/18 01/21/18 04:10 04:10 04:10 WBC RBC Hgb Hct MCV MCH MCHC RDW Plt Count MPV Neut % (Auto) Lymph % (Auto) [place] % (Auto) Eos % (Auto) Baso % (Auto) Neut # (Auto) Lymph # (Auto) [place] # (Auto) Eos # (Auto) Baso # (Auto) Puncture Site pCO2 pO2 HCO3 ABG pH ABG Total CO2 ABG O2 Saturation ABG Base Excess Jamey Test ABG Potassium A-a O2 Difference Respiratory Index Glucose Lactate Vent Mode Mechanical Rate FiO2 Tidal Volume PEEP Crit Value Called To Crit Value Called By Crit Value Read Back Blood Gas Notified Time Sodium 146 Potassium 4.5 Chloride 113 H Carbon Dioxide 19 L Anion Gap 19 BUN 44 H Creatinine 1.5 Est GFR ( Amer) 56 Est GFR (Non-Af Amer) 47 POC Glucose (mg/dL) Random Glucose 291 H Calcium 7.9 L Phosphorus 2.9 Magnesium 2.7 H Total Bilirubin 0.9 AST 129 H D ALT 56 Alkaline Phosphatase 51 Total Protein 6.3 Albumin 3.1 L Globulin 3.2 Albumin/Globulin Ratio 1.0 Arterial Blood Potassium Urine Color Yellow Urine Clarity Clear Urine pH 5.0 Ur Specific [place] 1.027 Urine Protein 1+ H Urine Glucose (UA) 3+ H Urine Ketones Negative Urine Blood Negative Urine Nitrate Negative Urine Bilirubin Negative Urine Urobilinogen Normal Ur Leukocyte Esterase Neg Urine WBC (Auto) 2 Urine RBC (Auto) 1 Urine Osmolality Ur Random Sodium Ur Random Potassium 25.0 Ur Random Urea Nitrogn Ur Random Glucose 01/21/18 01/21/18 01/21/18 04:53 05:02 06:45 WBC 6.3 RBC 4.11 L Hgb 12.8 D Hct 40.7 MCV 99.0 H D MCH 31.1 H MCHC 31.4 L RDW 13.8 Plt Count 135 MPV 11.9 H Neut % (Auto) 71.2 Lymph % (Auto) 18.2 L [place] % (Auto) 10.0 Eos % (Auto) 0.2 Baso % (Auto) 0.4 Neut # (Auto) 4.5 Lymph # (Auto) 1.1 [place] # (Auto) 0.6 Eos # (Auto) 0.0 Baso # (Auto) 0.0 Puncture Site R bra pCO2 47 H pO2 101 H HCO3 27.1 ABG pH 7.39 ABG Total CO2 29.9 H ABG O2 Saturation 98.7 H ABG Base Excess 2.8 Jamey Test Na ABG Potassium 4.0 A-a O2 Difference 125.0 Respiratory Index 1.2 Glucose 325 H Lactate 1.2 Vent Mode Prvc Mechanical Rate 16 FiO2 40.0 Tidal Volume 500 PEEP 5 Crit Value Called To Vanessa craft rn nicu Crit Value Called By Cathy lindsey rt Crit Value Read Back Y Blood Gas Notified Time 600 Sodium 166.0 H* Potassium Chloride 129.0 H Carbon Dioxide Anion Gap BUN Creatinine Est GFR ( Amer) Est GFR (Non-Af Amer) POC Glucose (mg/dL) 286 H Random Glucose Calcium Phosphorus Magnesium Total Bilirubin AST ALT Alkaline Phosphatase Total Protein Albumin Globulin Albumin/Globulin Ratio Arterial Blood Potassium 4.0 Urine Color Urine Clarity Urine pH Ur Specific [place] Urine Protein Urine Glucose (UA) Urine Ketones Urine Blood Urine Nitrate Urine Bilirubin Urine Urobilinogen Ur Leukocyte Esterase Urine WBC (Auto) Urine RBC (Auto) Urine Osmolality Ur Random Sodium Ur Random Potassium Ur Random Urea Nitrogn Ur Random Glucose 01/21/18 01/21/18 07:50 11:26 WBC RBC Hgb Hct MCV MCH MCHC RDW Plt Count MPV Neut % (Auto) Lymph % (Auto) [place] % (Auto) Eos % (Auto) Baso % (Auto) Neut # (Auto) Lymph # (Auto) [place] # (Auto) Eos # (Auto) Baso # (Auto) Puncture Site pCO2 pO2 HCO3 ABG pH ABG Total CO2 ABG O2 Saturation ABG Base Excess Jamey Test ABG Potassium A-a O2 Difference Respiratory Index Glucose Lactate Vent Mode Mechanical Rate FiO2 Tidal Volume PEEP Crit Value Called To Crit Value Called By Crit Value Read Back Blood Gas Notified Time Sodium Potassium Chloride Carbon Dioxide Anion Gap BUN Creatinine Est GFR ( Amer) Est GFR (Non-Af Amer) POC Glucose (mg/dL) 282 H 285 H Random Glucose Calcium Phosphorus Magnesium Total Bilirubin AST ALT Alkaline Phosphatase Total Protein Albumin Globulin Albumin/Globulin Ratio Arterial Blood Potassium Urine Color Urine Clarity Urine pH Ur Specific [place] Urine Protein Urine Glucose (UA) Urine Ketones Urine Blood Urine Nitrate Urine Bilirubin Urine Urobilinogen Ur Leukocyte Esterase Urine WBC (Auto) Urine RBC (Auto) Urine Osmolality Ur Random Sodium Ur Random Potassium Ur Random Urea Nitrogn Ur Random Glucose Fingerstick Blood Sugar Results: 285 Review of Systems - Review of Systems Systems not reviewed;Unavailable: Altered Mental Status Assessment/Plan (1) Status epilepticus Assessment and plan: Neuro: more alert. continue Keppra bid. Pulm: starting pressure support trials. CV: continue carvedilol and hydralazine for HTN. Hem: continue ASA Renal: stopped DDAVP, no signs of central DI. hypernatremia from osmotic diuresis, now improved, NS@70. - Dr. Ruiz Endo: Glargine 20 units qhs, SISS for coverage. GI: Glucerna@50 ID no acute issues, stopping abx. GI proph - protonix DVT proph - heparin sq Critical Care time 35 minutes Current Visit: Yes Status: Acute
--- NOTE | 2018-01-21 15:45 | CP.PCM.PN ---
Subjective - Date & Time of Evaluation Date of Evaluation: 01/21/18 Time of Evaluation: 15:43 - Subjective Subjective: Mr. Latif was seen and examined at the bedside. He remains on mechanical ventilator, off sedation, pupils are unequal with left 3 mm and right 2 mm. He has gag relex. He also moves all extremities with the left more restless than the right, but unable to follow any commands. He has hand mitten for patient safety. CT of the head yesterday showed no intracranial abnormality. EEG showed abnormal, diffuse slowing with no seizure activity noted. There was no untoward events overnight. Objective - Vital Signs/Intake and Output Vital Signs (last 24 hours): Temp Pulse Resp BP Pulse Ox 99.8 F H 84 31 H 162/67 H 98 01/21/18 12:00 01/21/18 15:25 01/21/18 15:25 01/21/18 15:25 01/21/18 15:25 Intake and Output: 01/21/18 01/21/18 06:59 18:59 Intake Total 2375 2325 Output Total 1680 1230 Balance 695 1095 - Medications Medications: Current Medications Acetaminophen (Tylenol 650mg/20.3ml Solution Ud) 650 mg NG Q6 PRN PRN Reason: GIVE FOR TEMP. 100*F OR ABOVE Last Admin: 01/21/18 03:00 Dose: 650 mg Albuterol Sulfate (Albuterol 0.083% Inhal Lynne (2.5 Mg/3 Ml) Ud) 2.5 mg IH RQ6 [facility] Last Admin: 01/21/18 13:11 Dose: Not Given Aspirin (Aspirin Chewable) 81 mg PO DAILY [facility] Last Admin: 01/21/18 10:25 Dose: 81 mg Carvedilol (Coreg) 25 mg PO BID [facility] Last Admin: 01/21/18 10:25 Dose: 25 mg Heparin Sodium (Porcine) (Heparin) 5,000 units SC Q8 [facility] Last Admin: 01/21/18 14:15 Dose: 5,000 units Hydralazine HCl (Apresoline) 50 mg PO Q8 [facility] Last Admin: 01/21/18 14:20 Dose: 50 mg Levetiracetam 750 mg/ Sodium (Chloride) 107.5 mls @ 420 mls/hr IVPB Q12H [facility] Last Admin: 01/21/18 15:37 Dose: 420 mls/hr Sodium Chloride (Sodium Chloride 0.9%) 500 mls @ 70 mls/hr IV .Q7H9M [facility] Last Admin: 01/21/18 14:20 Dose: Not Given Insulin Aspart (Novolog) 0 unit SC Q4H [facility] PRN Reason: Protocol Last Admin: 01/21/18 15:25 Dose: 6 unit Insulin Glargine (Lantus) 20 unit SC [facility] Last Admin: 01/20/18 21:02 Dose: 20 u Pantoprazole Sodium (Protonix Susp) 40 mg PO 1000 [facility] Last Admin: 01/21/18 12:21 Dose: 40 mg Rosuvastatin Calcium (Crestor) 10 mg PO HS [facility] Last Admin: 01/20/18 21:02 Dose: 10 mg Sennosides (Senokot Tab) 8.6 mg PO DAILY [facility] Last Admin: 01/21/18 10:25 Dose: 8.6 mg - Labs Labs: 01/21/18 04:53 01/21/18 04:10 PT 10.6 SECONDS (9.7-12.2) 01/16/18 12:27 INR 0.9 01/16/18 12:27 APTT 33 SECONDS (21-34) 01/16/18 12:27 - Constitutional Appears: No Acute Distress - Head Exam Head Exam: NORMAL INSPECTION - Neurological Exam Neuro motor strength exam: Left Upper Extremity: 3, Right Upper Extremity: 3, Left Lower Extremity: 3, Right Lower Extremity: 3 Additional comments: He moves all extremities spontaneously, but unable to follow any commands. Assessment and Plan (1) Status epilepticus Assessment & Plan: Case discussed with Dr. Perez, continue all current medical regimen. Treat any underlying electrolyte abnormalities. Status: Acute
[2018-01-21 18:02] LABS: SQUAMOUS EPITHIAL < 1 /hpf (0-5); URINE BACTERIA OCC (<OCC); URINE BILIRUBIN NEGATIVE (NEGATIVE); URINE BLOOD 1+ (NEGATIVE); URINE CLARITY Hazy (Clear); URINE COLOR Yellow (YELLOW); URINE GLUCOSE (UA) 3+ mg/dL (Normal); URINE LEUKOCYTE ESTERASE NEG Leu/uL (Negative); URINE PROTEIN 1+ mg/dL (NEGATIVE); URINE UROBILINOGEN NORMAL mg/dL (0.2-1.0)
[2018-01-21 18:04] LABS: CALCIUM 8.9 mg/dl (8.6-10.4)
[2018-01-21] MEDS: (Lantus) Insulin Glargine, Recombinant SC SCH (21:41)
[2018-01-21 21:43] LABS: CALCIUM 8.8 mg/dl (8.6-10.4)
--- NOTE | 2018-01-21 22:10 | CP.PCM.PN ---
Subjective - Date & Time of Evaluation Date of Evaluation: 01/21/18 Time of Evaluation: 18:00 - Subjective Subjective: Pt seen & evalauted at bedside Objective - Vital Signs/Intake and Output Vital Signs (last 24 hours): Temp Pulse Resp BP Pulse Ox 100.8 F H 81 24 156/69 H 95 01/21/18 20:00 01/21/18 22:00 01/21/18 22:00 01/21/18 21:25 01/21/18 22:00 Intake and Output: 01/21/18 01/22/18 18:59 06:59 Intake Total 2665 150 Output Total 1705 400 Balance 960 -250 - Medications Medications: Current Medications Acetaminophen (Tylenol 650mg/20.3ml Solution Ud) 650 mg NG Q6 PRN PRN Reason: GIVE FOR TEMP. 100*F OR ABOVE Last Admin: 01/21/18 17:39 Dose: 650 mg Albuterol Sulfate (Albuterol 0.083% Inhal Lynne (2.5 Mg/3 Ml) Ud) 2.5 mg IH RQ6 [facility] Last Admin: 01/21/18 19:52 Dose: 2.5 mg Aspirin (Aspirin Chewable) 81 mg PO DAILY [facility] Last Admin: 01/21/18 10:25 Dose: 81 mg Carvedilol (Coreg) 25 mg PO BID [facility] Last Admin: 01/21/18 17:35 Dose: 25 mg Heparin Sodium (Porcine) (Heparin) 5,000 units SC Q8 [facility] Last Admin: 01/21/18 21:40 Dose: 5,000 units Hydralazine HCl (Apresoline) 50 mg PO Q8 [facility] Last Admin: 01/21/18 21:41 Dose: 50 mg Levetiracetam 750 mg/ Sodium (Chloride) 107.5 mls @ 420 mls/hr IVPB Q12H [facility] Last Admin: 01/21/18 15:37 Dose: 420 mls/hr Dextrose (Dextrose 5% In Water 1000 Ml) 1,000 mls @ 125 mls/hr IV .Q8H [facility] Stop: 01/22/18 23:59 Last Admin: 01/21/18 21:40 Dose: 125 mls/hr Insulin Aspart (Novolog) 0 unit SC Q4H [facility] PRN Reason: Protocol Last Admin: 01/21/18 21:42 Dose: 6 unit Insulin Glargine (Lantus) 20 unit SC [facility] Last Admin: 01/21/18 21:41 Dose: 20 u Pantoprazole Sodium (Protonix Susp) 40 mg PO 1000 [facility] Last Admin: 01/21/18 12:21 Dose: 40 mg Rosuvastatin Calcium (Crestor) 10 mg PO HS [facility] Last Admin: 01/21/18 21:40 Dose: 10 mg Sennosides (Senokot Tab) 8.6 mg PO DAILY [facility] Last Admin: 01/21/18 10:25 Dose: 8.6 mg - Labs Labs: 01/21/18 04:53 01/21/18 21:27 PT 10.6 SECONDS (9.7-12.2) 01/16/18 12:27 INR 0.9 01/16/18 12:27 APTT 33 SECONDS (21-34) 01/16/18 12:27 Assessment and Plan (1) Status epilepticus Status: Acute (2) COPD (chronic obstructive pulmonary disease) Status: Acute (3) Congestive heart failure Status: Acute (4) Diabetes Status: Acute
[2018-01-22] MEDS: Albuterol 0.083% Inhal Sol (2.5 mg/3 mL) UD IH SCH ×4 (02:41→20:03)
[2018-01-22] MEDS: Acetaminophen 650mg/20.3ml solution UD NG PRN ×4 (03:57→17:40)
[2018-01-22] MEDS: (Novolog) Insulin Aspart, Recombinant 100 u/ml 10 ml vial SC SCH ×5 (03:58→20:27)
[2018-01-22 05:24] LABS: ARTERIAL BLOOD GAS HCO3 28.9 mmol/L (21-28); ARTERIAL BLOOD GAS HEMOGLOBIN 13.4 g/dL (11.7-17.4); ARTERIAL BLOOD GAS PCO2 43 mm/Hg (35-45); ARTERIAL BLOOD GAS PH 7.45 (7.35-7.45); ARTERIAL BLOOD GAS PO2 85 mm/Hg (80-100); ARTERIAL BLOOD GAS TCO2 31.2 mmol/L (22-28)
[2018-01-22 06:12] LABS: BASO % 0.4 % (0.0-2.0); EOS # 0.1 K/uL (0.0-0.7); EOS % 0.8 % (0.0-4.0); LYMPH # 1.4 K/uL (1.0-4.3); LYMPH % 21.2 % (20.0-40.0); MEAN CELL VOLUME 94.3 fL (80.0-94.0); MEAN CORPUSCULAR HEMOGLOBIN 31.8 pg (27.0-31.0); MEAN CORPUSCULAR HGB CONC 33.7 g/dL (33.0-37.0); MEAN PLATELET VOLUME 11.5 fL (7.2-11.7); MONO # 0.4 K/uL (0.0-0.8); NEUT # 4.8 K/uL (1.8-7.0); NEUT % 71.6 % (50.0-75.0); NRBC % 0.1 % (0.0-2.0); RBC 4.39 Mil/uL (4.40-5.90); RED CELL DISTRIBUTION WIDTH 13.1 % (11.5-14.5); WHITE BLOOD COUNT 6.7 K/uL (4.8-10.8)
[2018-01-22 06:27] LABS: ALB/GLOB RATIO 0.9 (1.0-2.1); CALCIUM 8.3 mg/dl (8.6-10.4)
--- NOTE | 2018-01-22 06:45 | PN ---
DATE: 01/21/2018 FOLLOWUP RENAL CONSULTATION LOCATION: The patient is located in ICU, bed 5. REQUESTED BY: Arash Rose MD REASON FOR FOLLOWUP: Hypernatremia. HISTORY OF PRESENT ILLNESS: Mr. Latif is a 67 years old elderly male with a history of hypertension, diabetes, CVA, hyperlipidemia who was admitted with altered mental status as per the patient's family. When the patient was called on the day of admission, the patient did not respond, the patient's family went and found him on the bed unresponsive and EMS was called in, and the patient was electively intubated for airway protection. The patient is not responding to painful stimuli, remains intubated. PHYSICAL EXAMINATION: VITAL SIGNS: As follows, blood pressure 141/66, pulse 77, respirations 15, saturation 98%, and temperature is 99.8, T-max is 102. GENERAL: Mr. Latif is a 67 years old elderly male, on ventilator, not responding to deep painful stimuli. HEENT: Conjunctivae pink. Sclerae anicteric. Pupils normal and reactive to light. Trachea is midline. LUNGS: Symmetric on both sides. Bilateral breath sounds present. No crackles. CVS: [place] at the fifth intercostal space, midclavicular line. S1, S2 audible. No murmur or gallop. ABDOMEN: Normal in appearance, soft, tympanic. No guarding. No rigidity. No hepatosplenomegaly. 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 EXTREMITIES: No cyanosis, no clubbing, no edema. Not responding to deep painful stimuli. MEDICATIONS: Current medications include as follows: Albuterol inhaler q.6 hours, hydralazine 50 mg p.o. q.8 hours, aspirin 81 mg daily, Coreg 25 mg p.o. b.i.d., Crestor 10 mg p.o. at bedtime, subcu heparin 5000 q.8 hours, Lantus 20 units subcu at bedtime, Keppra 750 mg q.12 hours, NovoLog insulin, Protonix 40 mg p.o. daily, Senokot 8.6 mg p.o. daily, Tylenol. His I's and O's in the last 24 hours as follows. Intake is 2925 and output is 3230. LABORATORY DATA: Include as follows. As of 01/21/2018 at 4:53 a.m., WBC is 6.3, hemoglobin 12.8, hematocrit is 40.7, platelets 135. Chemistry as of 01/21/2018 at 04:10 a.m., sodium 146, potassium 4.5, chloride 113, CO2 of 19, BUN 44, creatinine 1.5, glucose 291, calcium 7.9, phosphorus 2.9, magnesium 2.7. Total bili 0.9, AST 129, ALT 56, ALT 51, total protein 6.3, albumin is 3.1. ABG at 05:02 a.m., pH 7.39, pCO2 of 47, pO2 of 101, bicarb is 27.1, saturation 97.6. Vent settings, AC 16, tidal volume 500, FiO2 40%, PEEP of 5. IMPRESSION: In summary, Mr. Latif is 67 years old elderly male with hypertension, diabetes, seizures, and old CVA who was admitted with altered mental status and status post Lasix and status post DDAVP for polyuria yesterday with an increase in BUN and creatinine, increased serum sodium. 1. Acute mental status change, etiology is not clear, rule out seizure disorder, new onset versus acute CVA. 2. Hypernatremia secondary to intravascular volume depletion secondary to vigorous diuresis and polyuria. 3. Prerenal azotemia. 4. Hypertension. 5. Status post intubation for respiratory airway protection. The patient is off IV fluids when the serum sodium was 146. As per the ICU team, the patient was given 1 liter as the serum sodium decreased possibly from yesterday of 160 to now for 146 today so the patient was given 1 liter IV fluids and started this afternoon at 1:00 p.m., and also started on normal saline at 70 mL/hour after bolus and advised to repeat serum sodium at 6 o'clock which was consistent with sodium 170, and IV fluids were discontinued and started on D5W at 125 mL/hour and also free water 400 mL q.4 hours, and repeat BMP every 8 hours and also repeat BMP this evening again around 8 to 8:40 p.m. Advised the patient's primary nurse to call me with the results. Urine electrolytes as of yesterday, urine osmolality 719 and 756, urine sodium of 49, urine potassium 25, urine urea is 758, and urine glucose is 4679 mg/dL, polyuria is secondary to osmotic diuresis. PLAN: Continue IV fluids of D5W and avoid normal saline IV with antibiotics or with Keppra if possible, and would check BMP every 8 hours and will adjust the fluids as per the BMP. Thank you for allowing me to participate in your patient's care. Overall prognosis is guarded. Follow with Neurology for further management and discussed with ICU attending in rounds. Baldemar Ruiz MD MTDD
--- NOTE | 2018-01-22 08:32 | RAD ---
HISTORY: vent COMPARISON: 01/21/2018 FINDINGS: LUNGS: No active pulmonary disease. PLEURA: No significant pleural effusion identified, no pneumothorax apparent. CARDIOVASCULAR: Normal heart size. Status post CABG. NG tube extends to upper abdomen. OSSEOUS STRUCTURES: No significant abnormalities. VISUALIZED UPPER ABDOMEN: Normal. OTHER FINDINGS: None. IMPRESSION: No acute infiltrate.
[2018-01-22] MEDS: Pantoprazole 40 mg Susp UD PO SCH (10:01)
[2018-01-22] MEDS: levETIRAcetam 1,000 MG in Sodium Chloride 0.9% 100 ML IVPB SCH ×2 (10:23→21:01)
--- NOTE | 2018-01-22 10:37 | CP.CCUPN ---
<[place] - Last Filed: 01/22/18 14:29> CCU Subjective - Physician Review Subjective (Free Text): 01/22/18 10:36 Patient seen and examined at bedside. Per nursing no acute events occurred overnight. Critical Care Time Spent (in minutes): 50 CCU Objective - Vital Signs / Intake & Output Vital Signs (Last 4 hours): Vital Signs Temp Pulse Resp BP Pulse Ox 01/22/18 10:25 75 16 149/65 98 01/22/18 10:01 143/56 L 01/22/18 10:00 99.2 F 01/22/18 09:26 74 19 143/56 L 94 L 01/22/18 08:25 65 16 130/55 L 97 01/22/18 07:25 65 16 138/64 98 Intake and Output (Last 8hrs): Intake & Output 01/21/18 01/22/18 01/22/18 22:59 06:59 14:59 Intake Total 1010 2175 1125 Output Total 1275 1040 300 Balance -265 1135 825 Weight 213 lb 6.4 oz Intake: Intake, IV Amount 210 975 525 Left Hand 210 975 475 Left Hand 2 50 Oral 50 Tube Feeding 350 400 200 Other 400 800 400 Output: Urine 1275 1040 300 Urethral (Stanley) 1275 1040 300 - Physical Exam Head: Positive for: Atraumatic, Normocephalic Pupils: Positive for: Other (corneal reflex) Neck: Positive for: Normal Range of Motion Respiratory/Chest: Positive for: Clear to Auscultation. Negative for: Respiratory Distress Cardiovascular: Positive for: Regular Rate and Rhythm, Normal S1, S2. Negative for: Tachycardic Abdomen: Positive for: Normal Bowel Sounds, Other (obese). Negative for: Tenderness, Distention, Peritoneal Signs Lower Extremity: Positive for: Normal Inspection Neurological: Positive for: Other (no response to pain) - Medications Active Medications: Active Medications Generic Name Dose Route Start Last Admin Trade Name Freq PRN Reason Stop Dose Admin Acetaminophen 650 mg 01/19/18 00:50 01/22/18 06:02 Tylenol 650mg/20.3ml Solution Ud NG 650 mg Q6 PRN Administration GIVE FOR TEMP. 100*F OR ABOVE Albuterol Sulfate 2.5 mg 01/16/18 14:45 01/22/18 02:41 Albuterol 0.083% Inhal Lynne (2.5 Mg/3 Ml) Ud IH 2.5 mg RQ6 SHINE Administration Aspirin 81 mg 01/17/18 10:00 01/22/18 10:01 Aspirin Chewable PO 81 mg DAILY SHINE Administration Carvedilol 12.5 mg 01/22/18 09:07 01/22/18 10:01 Coreg PO 12.5 mg BID SHINE Administration Heparin Sodium (Porcine) 5,000 units 01/17/18 14:00 01/22/18 06:00 Heparin SC 5,000 units Q8 SHINE Administration Hydralazine HCl 50 mg 01/16/18 22:00 01/22/18 06:00 Apresoline PO 50 mg Q8 SHINE Administration Dextrose 1,000 mls @ 125 mls/hr 01/21/18 20:30 01/22/18 03:59 Dextrose 5% In Water 1000 Ml IV 01/22/18 23:59 125 mls/hr .Q8H SHINE Administration Levetiracetam 1,000 mg/ Sodium 110 mls @ 440 mls/hr 01/22/18 10:00 01/22/18 10:23 Chloride IVPB 440 mls/hr Q12H SHINE Administration Insulin Aspart 0 unit 01/22/18 00:00 01/22/18 07:47 Novolog SC Not Given Q4H [facility] Protocol Insulin Glargine 20 unit 01/20/18 17:13 01/21/18 21:41 Lantus SC 20 u HS [facility] Administration Pantoprazole Sodium 40 mg 01/21/18 12:00 01/22/18 10:01 Protonix Susp PO 40 mg 1000 SHINE Administration Potassium Chloride 20 meq 01/22/18 11:30 Potassium Chloride Oral Soln PO 01/22/18 11:31 ONCE ONE Rosuvastatin Calcium 10 mg 01/16/18 22:00 01/21/18 21:40 Crestor PO 10 mg HS SHINE Administration Sennosides 8.6 mg 01/17/18 14:00 01/21/18 10:25 Senokot Tab PO 8.6 mg DAILY SHINE Administration - Patient Studies Lab Studies: Microbiology Studies 01/21/18 Unknown Gram Stain - Final Trachasp 01/17/18 15:26 Blood Culture - Preliminary Blood NO GROWTH AFTER 4 DAYS 02/28/18 15:26 Blood Culture - Preliminary Blood NO GROWTH AFTER 4 DAYS Lab Studies 01/22/18 01/22/18 01/22/18 Range/Units 07:33 06:02 06:02 WBC 6.7 (4.8-10.8) K/uL RBC 4.39 L (4.40-5.90) Mil/uL Hgb 14.0 (12.0-18.0) g/dL Hct 41.4 (35.0-51.0) % MCV 94.3 H D (80.0-94.0) fL MCH 31.8 H (27.0-31.0) pg MCHC 33.7 (33.0-37.0) g/dL RDW 13.1 (11.5-14.5) % Plt Count 132 (130-400) K/uL MPV 11.5 (7.2-11.7) fL Neut % (Auto) 71.6 (50.0-75.0) % Lymph % (Auto) 21.2 (20.0-40.0) % [place] % (Auto) 6.0 (0.0-10.0) % Eos % (Auto) 0.8 (0.0-4.0) % Baso % (Auto) 0.4 (0.0-2.0) % Neut # (Auto) 4.8 (1.8-7.0) K/uL Lymph # (Auto) 1.4 (1.0-4.3) K/uL [place] # (Auto) 0.4 (0.0-0.8) K/uL Eos # (Auto) 0.1 (0.0-0.7) K/uL Baso # (Auto) 0.0 (0.0-0.2) K/uL Puncture Site pCO2 (35-45) mm/Hg pO2 (80-100) mm/Hg HCO3 (21-28) mmol/L ABG pH (7.35-7.45) ABG Total CO2 (22-28) mmol/L ABG O2 Saturation (95-98) % ABG Base Excess (-2.0-3.0) mmol/L ABG Hemoglobin (11.7-17.4) g/dL ABG Carboxyhemoglobin (0.5-1.5) % POC ABG HHb (Measured) (0.0-5.0) % ABG Methemoglobin (0.0-3.0) % Jamey Test A-a O2 Difference mm/Hg Respiratory Index Hgb O2 Saturation (95.0-98.0) % Vent Mode Mechanical Rate FiO2 % Tidal Volume PEEP Sodium 166 H* (132-148) mmol/L Potassium 3.5 L (3.6-5.2) mmol/L Chloride 125 H (98-107) mmol/L Carbon Dioxide 28 (22-30) mmol/L Anion Gap 17 (10-20) BUN 37 H (9-20) mg/dL Creatinine 1.6 H (0.8-1.5) mg/dL Est GFR ( Amer) 52 Est GFR (Non-Af Amer) 43 POC Glucose (mg/dL) 113 H (65-110) mg/dL Random Glucose 155 H (75-110) mg/dL Calcium 8.3 L (8.6-10.4) mg/dl Phosphorus 3.3 (2.5-4.5) mg/dL Magnesium 2.5 H (1.6-2.3) mg/dL Total Bilirubin 0.3 (0.2-1.3) mg/dL AST 55 (17-59) U/L ALT 63 (21-72) U/L Alkaline Phosphatase 59 (38-126) U/L Total Protein 6.3 (6.3-8.3) g/dL Albumin 3.0 L (3.5-5.0) g/dL Globulin 3.2 (2.2-3.9) gm/dL Albumin/Globulin Ratio 0.9 L (1.0-2.1) Urine Color (YELLOW) Urine Clarity (Clear) Urine pH (5.0-8.0) Ur Specific [place] (1.003-1.030) Urine Protein (NEGATIVE) mg/dL Urine Glucose (UA) (Normal) mg/dL Urine Ketones (NEGATIVE) mg/dL Urine Blood (NEGATIVE) Urine Nitrate (NEGATIVE) Urine Bilirubin (NEGATIVE) Urine Urobilinogen (0.2-1.0) mg/dL Ur Leukocyte Esterase (Negative) Minh/uL Urine WBC (Auto) (0-5) /hpf Urine RBC (Auto) (0-3) /hpf Ur Squamous Epith Cells (0-5) /hpf Urine Bacteria (<OCC) Urine Yeast (Budding) (NEGATIVE) /hpf 01/22/18 01/22/18 01/21/18 Range/Units 05:04 03:52 23:44 WBC (4.8-10.8) K/uL RBC (4.40-5.90) Mil/uL Hgb (12.0-18.0) g/dL Hct (35.0-51.0) % MCV (80.0-94.0) fL MCH (27.0-31.0) pg MCHC (33.0-37.0) g/dL RDW (11.5-14.5) % Plt Count (130-400) K/uL MPV (7.2-11.7) fL Neut % (Auto) (50.0-75.0) % Lymph % (Auto) (20.0-40.0) % [place] % (Auto) (0.0-10.0) % Eos % (Auto) (0.0-4.0) % Baso % (Auto) (0.0-2.0) % Neut # (Auto) (1.8-7.0) K/uL Lymph # (Auto) (1.0-4.3) K/uL [place] # (Auto) (0.0-0.8) K/uL Eos # (Auto) (0.0-0.7) K/uL Baso # (Auto) (0.0-0.2) K/uL Puncture Site R bra pCO2 43 (35-45) mm/Hg pO2 85 (80-100) mm/Hg HCO3 28.9 H (21-28) mmol/L ABG pH 7.45 (7.35-7.45) ABG Total CO2 31.2 H (22-28) mmol/L ABG O2 Saturation 98.0 (95-98) % ABG Base Excess 5.2 H (-2.0-3.0) mmol/L ABG Hemoglobin 13.4 (11.7-17.4) g/dL ABG Carboxyhemoglobin 1.6 H (0.5-1.5) % POC ABG HHb (Measured) 1.9 (0.0-5.0) % ABG Methemoglobin 1.2 (0.0-3.0) % Jamey Test Na A-a O2 Difference 146.0 mm/Hg Respiratory Index 1.7 Hgb O2 Saturation 95.3 (95.0-98.0) % Vent Mode Prvc Mechanical Rate 16 FiO2 40.0 % Tidal Volume 500 PEEP 5 Sodium (132-148) mmol/L Potassium (3.6-5.2) mmol/L Chloride (98-107) mmol/L Carbon Dioxide (22-30) mmol/L Anion Gap (10-20) BUN (9-20) mg/dL Creatinine (0.8-1.5) mg/dL Est GFR ( Amer) Est GFR (Non-Af Amer) POC Glucose (mg/dL) 343 H 278 H (65-110) mg/dL Random Glucose (75-110) mg/dL Calcium (8.6-10.4) mg/dl Phosphorus (2.5-4.5) mg/dL Magnesium (1.6-2.3) mg/dL Total Bilirubin (0.2-1.3) mg/dL AST (17-59) U/L ALT (21-72) U/L Alkaline Phosphatase (38-126) U/L Total Protein (6.3-8.3) g/dL Albumin (3.5-5.0) g/dL Globulin (2.2-3.9) gm/dL Albumin/Globulin Ratio (1.0-2.1) Urine Color (YELLOW) Urine Clarity (Clear) Urine pH (5.0-8.0) Ur Specific [place] (1.003-1.030) Urine Protein (NEGATIVE) mg/dL Urine Glucose (UA) (Normal) mg/dL Urine Ketones (NEGATIVE) mg/dL Urine Blood (NEGATIVE) Urine Nitrate (NEGATIVE) Urine Bilirubin (NEGATIVE) Urine Urobilinogen (0.2-1.0) mg/dL Ur Leukocyte Esterase (Negative) Minh/uL Urine WBC (Auto) (0-5) /hpf Urine RBC (Auto) (0-3) /hpf Ur Squamous Epith Cells (0-5) /hpf Urine Bacteria (<OCC) Urine Yeast (Budding) (NEGATIVE) /hpf 01/21/18 01/21/18 01/21/18 Range/Units 21:27 21:24 17:43 WBC (4.8-10.8) K/uL RBC (4.40-5.90) Mil/uL Hgb (12.0-18.0) g/dL Hct (35.0-51.0) % MCV (80.0-94.0) fL MCH (27.0-31.0) pg MCHC (33.0-37.0) g/dL RDW (11.5-14.5) % Plt Count (130-400) K/uL MPV (7.2-11.7) fL Neut % (Auto) (50.0-75.0) % Lymph % (Auto) (20.0-40.0) % [place] % (Auto) (0.0-10.0) % Eos % (Auto) (0.0-4.0) % Baso % (Auto) (0.0-2.0) % Neut # (Auto) (1.8-7.0) K/uL Lymph # (Auto) (1.0-4.3) K/uL [place] # (Auto) (0.0-0.8) K/uL Eos # (Auto) (0.0-0.7) K/uL Baso # (Auto) (0.0-0.2) K/uL Puncture Site pCO2 (35-45) mm/Hg pO2 (80-100) mm/Hg HCO3 (21-28) mmol/L ABG pH (7.35-7.45) ABG Total CO2 (22-28) mmol/L ABG O2 Saturation (95-98) % ABG Base Excess (-2.0-3.0) mmol/L ABG Hemoglobin (11.7-17.4) g/dL ABG Carboxyhemoglobin (0.5-1.5) % POC ABG HHb (Measured) (0.0-5.0) % ABG Methemoglobin (0.0-3.0) % Jamey Test A-a O2 Difference mm/Hg Respiratory Index Hgb O2 Saturation (95.0-98.0) % Vent Mode Mechanical Rate FiO2 % Tidal Volume PEEP Sodium 169 H* (132-148) mmol/L Potassium 4.2 (3.6-5.2) mmol/L Chloride 126 H (98-107) mmol/L Carbon Dioxide 30 (22-30) mmol/L Anion Gap 17 (10-20) BUN 41 H (9-20) mg/dL Creatinine 1.7 H (0.8-1.5) mg/dL Est GFR ( Amer) 49 Est GFR (Non-Af Amer) 40 POC Glucose (mg/dL) 259 H (65-110) mg/dL Random Glucose 310 H (75-110) mg/dL Calcium 8.8 (8.6-10.4) mg/dl Phosphorus (2.5-4.5) mg/dL Magnesium (1.6-2.3) mg/dL Total Bilirubin (0.2-1.3) mg/dL AST (17-59) U/L ALT (21-72) U/L Alkaline Phosphatase (38-126) U/L Total Protein (6.3-8.3) g/dL Albumin (3.5-5.0) g/dL Globulin (2.2-3.9) gm/dL Albumin/Globulin Ratio (1.0-2.1) Urine Color Yellow (YELLOW) Urine Clarity Hazy (Clear) Urine pH 5.0 (5.0-8.0) Ur Specific [place] 1.029 (1.003-1.030) Urine Protein 1+ H (NEGATIVE) mg/dL Urine Glucose (UA) 3+ H (Normal) mg/dL Urine Ketones Negative (NEGATIVE) mg/dL Urine Blood 1+ H (NEGATIVE) Urine Nitrate Negative (NEGATIVE) Urine Bilirubin Negative (NEGATIVE) Urine Urobilinogen Normal (0.2-1.0) mg/dL Ur Leukocyte Esterase Neg (Negative) Minh/uL Urine WBC (Auto) 2 (0-5) /hpf Urine RBC (Auto) 4 H (0-3) /hpf Ur Squamous Epith Cells < 1 (0-5) /hpf Urine Bacteria Occ H (<OCC) Urine Yeast (Budding) Few H (NEGATIVE) /hpf 01/21/18 01/21/18 01/21/18 Range/Units 17:43 15:03 11:26 WBC (4.8-10.8) K/uL RBC (4.40-5.90) Mil/uL Hgb (12.0-18.0) g/dL Hct (35.0-51.0) % MCV (80.0-94.0) fL MCH (27.0-31.0) pg MCHC (33.0-37.0) g/dL RDW (11.5-14.5) % Plt Count (130-400) K/uL MPV (7.2-11.7) fL Neut % (Auto) (50.0-75.0) % Lymph % (Auto) (20.0-40.0) % [place] % (Auto) (0.0-10.0) % Eos % (Auto) (0.0-4.0) % Baso % (Auto) (0.0-2.0) % Neut # (Auto) (1.8-7.0) K/uL Lymph # (Auto) (1.0-4.3) K/uL [place] # (Auto) (0.0-0.8) K/uL Eos # (Auto) (0.0-0.7) K/uL Baso # (Auto) (0.0-0.2) K/uL Puncture Site pCO2 (35-45) mm/Hg pO2 (80-100) mm/Hg HCO3 (21-28) mmol/L ABG pH (7.35-7.45) ABG Total CO2 (22-28) mmol/L ABG O2 Saturation (95-98) % ABG Base Excess (-2.0-3.0) mmol/L ABG Hemoglobin (11.7-17.4) g/dL ABG Carboxyhemoglobin (0.5-1.5) % POC ABG HHb (Measured) (0.0-5.0) % ABG Methemoglobin (0.0-3.0) % Jamey Test A-a O2 Difference mm/Hg Respiratory Index Hgb O2 Saturation (95.0-98.0) % Vent Mode Mechanical Rate FiO2 % Tidal Volume PEEP Sodium 170 H* (132-148) mmol/L Potassium 3.8 (3.6-5.2) mmol/L Chloride 127 H (98-107) mmol/L Carbon Dioxide 31 H (22-30) mmol/L Anion Gap 15 (10-20) BUN 40 H (9-20) mg/dL Creatinine 1.6 H (0.8-1.5) mg/dL Est GFR ( Amer) 52 Est GFR (Non-Af Amer) 43 POC Glucose (mg/dL) 265 H 285 H (65-110) mg/dL Random Glucose 230 H (75-110) mg/dL Calcium 8.9 (8.6-10.4) mg/dl Phosphorus (2.5-4.5) mg/dL Magnesium (1.6-2.3) mg/dL Total Bilirubin (0.2-1.3) mg/dL AST (17-59) U/L ALT (21-72) U/L Alkaline Phosphatase (38-126) U/L Total Protein (6.3-8.3) g/dL Albumin (3.5-5.0) g/dL Globulin (2.2-3.9) gm/dL Albumin/Globulin Ratio (1.0-2.1) Urine Color (YELLOW) Urine Clarity (Clear) Urine pH (5.0-8.0) Ur Specific [place] (1.003-1.030) Urine Protein (NEGATIVE) mg/dL Urine Glucose (UA) (Normal) mg/dL Urine Ketones (NEGATIVE) mg/dL Urine Blood (NEGATIVE) Urine Nitrate (NEGATIVE) Urine Bilirubin (NEGATIVE) Urine Urobilinogen (0.2-1.0) mg/dL Ur Leukocyte Esterase (Negative) Minh/uL Urine WBC (Auto) (0-5) /hpf Urine RBC (Auto) (0-3) /hpf Ur Squamous Epith Cells (0-5) /hpf Urine Bacteria (<OCC) Urine Yeast (Budding) (NEGATIVE) /hpf Laboratory Results - last 24 hr 01/21/18 01/21/18 01/21/18 11:26 15:03 17:43 WBC RBC Hgb Hct MCV MCH MCHC RDW Plt Count MPV Neut % (Auto) Lymph % (Auto) [place] % (Auto) Eos % (Auto) Baso % (Auto) Neut # (Auto) Lymph # (Auto) [place] # (Auto) Eos # (Auto) Baso # (Auto) Puncture Site pCO2 pO2 HCO3 ABG pH ABG Total CO2 ABG O2 Saturation ABG Base Excess ABG Hemoglobin ABG Carboxyhemoglobin POC ABG HHb (Measured) ABG Methemoglobin Jamey Test A-a O2 Difference Respiratory Index Hgb O2 Saturation Vent Mode Mechanical Rate FiO2 Tidal Volume PEEP Sodium 170 H* Potassium 3.8 Chloride 127 H Carbon Dioxide 31 H Anion Gap 15 BUN 40 H Creatinine 1.6 H Est GFR ( Amer) 52 Est GFR (Non-Af Amer) 43 POC Glucose (mg/dL) 285 H 265 H Random Glucose 230 H Calcium 8.9 Phosphorus Magnesium Total Bilirubin AST ALT Alkaline Phosphatase Total Protein Albumin Globulin Albumin/Globulin Ratio Urine Color Urine Clarity Urine pH Ur Specific [place] Urine Protein Urine Glucose (UA) Urine Ketones Urine Blood Urine Nitrate Urine Bilirubin Urine Urobilinogen Ur Leukocyte Esterase Urine WBC (Auto) Urine RBC (Auto) Ur Squamous Epith Cells Urine Bacteria Urine Yeast (Budding) 01/21/18 01/21/18 01/21/18 17:43 21:24 21:27 WBC RBC Hgb Hct MCV MCH MCHC RDW Plt Count MPV Neut % (Auto) Lymph % (Auto) [place] % (Auto) Eos % (Auto) Baso % (Auto) Neut # (Auto) Lymph # (Auto) [place] # (Auto) Eos # (Auto) Baso # (Auto) Puncture Site pCO2 pO2 HCO3 ABG pH ABG Total CO2 ABG O2 Saturation ABG Base Excess ABG Hemoglobin ABG Carboxyhemoglobin POC ABG HHb (Measured) ABG Methemoglobin Jamey Test A-a O2 Difference Respiratory Index Hgb O2 Saturation Vent Mode Mechanical Rate FiO2 Tidal Volume PEEP Sodium 169 H* Potassium 4.2 Chloride 126 H Carbon Dioxide 30 Anion Gap 17 BUN 41 H Creatinine 1.7 H Est GFR ( Amer) 49 Est GFR (Non-Af Amer) 40 POC Glucose (mg/dL) 259 H Random Glucose 310 H Calcium 8.8 Phosphorus Magnesium Total Bilirubin AST ALT Alkaline Phosphatase Total Protein Albumin Globulin Albumin/Globulin Ratio Urine Color Yellow Urine Clarity Hazy Urine pH 5.0 Ur Specific [place] 1.029 Urine Protein 1+ H Urine Glucose (UA) 3+ H Urine Ketones Negative Urine Blood 1+ H Urine Nitrate Negative Urine Bilirubin Negative Urine Urobilinogen Normal Ur Leukocyte Esterase Neg Urine WBC (Auto) 2 Urine RBC (Auto) 4 H Ur Squamous Epith Cells < 1 Urine Bacteria Occ H Urine Yeast (Budding) Few H 01/21/18 01/22/18 01/22/18 23:44 03:52 05:04 WBC RBC Hgb Hct MCV MCH MCHC RDW Plt Count MPV Neut % (Auto) Lymph % (Auto) [place] % (Auto) Eos % (Auto) Baso % (Auto) Neut # (Auto) Lymph # (Auto) [place] # (Auto) Eos # (Auto) Baso # (Auto) Puncture Site R bra pCO2 43 pO2 85 HCO3 28.9 H ABG pH 7.45 ABG Total CO2 31.2 H ABG O2 Saturation 98.0 ABG Base Excess 5.2 H ABG Hemoglobin 13.4 ABG Carboxyhemoglobin 1.6 H POC ABG HHb (Measured) 1.9 ABG Methemoglobin 1.2 Jamey Test Na A-a O2 Difference 146.0 Respiratory Index 1.7 Hgb O2 Saturation 95.3 Vent Mode Prvc Mechanical Rate 16 FiO2 40.0 Tidal Volume 500 PEEP 5 Sodium Potassium Chloride Carbon Dioxide Anion Gap BUN Creatinine Est GFR ( Amer) Est GFR (Non-Af Amer) POC Glucose (mg/dL) 278 H 343 H Random Glucose Calcium Phosphorus Magnesium Total Bilirubin AST ALT Alkaline Phosphatase Total Protein Albumin Globulin Albumin/Globulin Ratio Urine Color Urine Clarity Urine pH Ur Specific [place] Urine Protein Urine Glucose (UA) Urine Ketones Urine Blood Urine Nitrate Urine Bilirubin Urine Urobilinogen Ur Leukocyte Esterase Urine WBC (Auto) Urine RBC (Auto) Ur Squamous Epith Cells Urine Bacteria Urine Yeast (Budding) 01/22/18 01/22/18 01/22/18 06:02 06:02 07:33 WBC 6.7 RBC 4.39 L Hgb 14.0 Hct 41.4 MCV 94.3 H D MCH 31.8 H MCHC 33.7 RDW 13.1 Plt Count 132 MPV 11.5 Neut % (Auto) 71.6 Lymph % (Auto) 21.2 [place] % (Auto) 6.0 Eos % (Auto) 0.8 Baso % (Auto) 0.4 Neut # (Auto) 4.8 Lymph # (Auto) 1.4 [place] # (Auto) 0.4 Eos # (Auto) 0.1 Baso # (Auto) 0.0 Puncture Site pCO2 pO2 HCO3 ABG pH ABG Total CO2 ABG O2 Saturation ABG Base Excess ABG Hemoglobin ABG Carboxyhemoglobin POC ABG HHb (Measured) ABG Methemoglobin Jamey Test A-a O2 Difference Respiratory Index Hgb O2 Saturation Vent Mode Mechanical Rate FiO2 Tidal Volume PEEP Sodium 166 H* Potassium 3.5 L Chloride 125 H Carbon Dioxide 28 Anion Gap 17 BUN 37 H Creatinine 1.6 H Est GFR ( Amer) 52 Est GFR (Non-Af Amer) 43 POC Glucose (mg/dL) 113 H Random Glucose 155 H Calcium 8.3 L Phosphorus 3.3 Magnesium 2.5 H Total Bilirubin 0.3 AST 55 ALT 63 Alkaline Phosphatase 59 Total Protein 6.3 Albumin 3.0 L Globulin 3.2 Albumin/Globulin Ratio 0.9 L Urine Color Urine Clarity Urine pH Ur Specific [place] Urine Protein Urine Glucose (UA) Urine Ketones Urine Blood Urine Nitrate Urine Bilirubin Urine Urobilinogen Ur Leukocyte Esterase Urine WBC (Auto) Urine RBC (Auto) Ur Squamous Epith Cells Urine Bacteria Urine Yeast (Budding) Fingerstick Blood Sugar Results: 259 Review of Systems - Review of Systems Systems not reviewed;Unavailable: Acuity of Condition Assessment/Plan - Assessment and Plan (Free Text) Assessment: 67 year old male with a past medical history of type 2 dm, hypertension, cva, s/ p cabg (8yrs ago), hyperlipidemia who was admitted to the ICU after being found unresponsive by daughter. Patient subsequently had a witnessed seizure while in the hospital and was transferred to the ICU for further monitoring . Plan: Neuro: less alert this morning. Keppra increased to 1000mg bid. Pulm: starting pressure support trials. CV: carvedilol changed to 12.5mg BID and hydralazine for HTN. Hem: continue ASA Renal: hypernatremia from osmotic diuresis, now improved, Dextrose @125mls/hr - Dr. Ruiz Endo: Glargine 20 units qhs, SISS for coverage. GI: Glucerna@50 ID no acute issues, stopping abx. GI proph - protonix DVT proph - heparin sq <Bill Ulloa - Last Filed: 01/25/18 09:17> CCU Objective - Vital Signs / Intake & Output Vital Signs (Last 4 hours): Vital Signs Temp Pulse Resp BP Pulse Ox 01/25/18 09:15 149/62 01/25/18 08:50 100.9 F H 01/25/18 06:29 84 23 173/71 H 97 01/25/18 06:02 171/70 H 01/25/18 06:00 92 H 26 H 96 Intake and Output (Last 8hrs): Intake & Output 01/24/18 01/25/18 01/25/18 22:59 06:59 14:59 Intake Total 1940 1600 100 Output Total 865 790 50 Balance 1075 810 50 Weight 217 lb 13.944 oz Intake: IV 16 Intake, IV Amount 724 400 50 Left Hand 700 400 50 Left Hand 2 24 0 Tube Feeding 400 400 50 Other 800 800 Output: Urine 865 790 50 Urethral (Stanley) 865 790 50 - Medications Active Medications: Active Medications Generic Name Dose Route Start Last Admin Trade Name Freq PRN Reason Stop Dose Admin Acetaminophen 650 mg 01/19/18 00:50 01/25/18 08:50 Tylenol 650mg/20.3ml Solution Ud NG 650 mg Q6 PRN Administration GIVE FOR TEMP. 100*F OR ABOVE Albuterol Sulfate 2.5 mg 01/16/18 14:45 01/25/18 07:41 Albuterol 0.083% Inhal Lynne (2.5 Mg/3 Ml) Ud IH 2.5 mg RQ6 SHINE Administration Aspirin 81 mg 01/17/18 10:00 01/25/18 09:16 Aspirin Chewable PO 81 mg DAILY SHINE Administration Carvedilol 12.5 mg 01/22/18 09:07 01/25/18 09:15 Coreg PO 12.5 mg BID SHINE Administration Heparin Sodium (Porcine) 5,000 units 01/17/18 14:00 01/23/18 15:08 Heparin SC Not Given Q8 SHINE Hydralazine HCl 50 mg 01/16/18 22:00 01/25/18 06:02 Apresoline PO 50 mg Q8 SHINE Administration Levetiracetam 1,000 mg/ Sodium 110 mls @ 440 mls/hr 01/22/18 10:00 01/24/18 22:14 Chloride IVPB 440 mls/hr Q12H SHINE Administration Dextrose 1,000 mls @ 50 mls/hr 01/24/18 21:05 01/24/18 21:11 Dextrose 5% In Water 1000 Ml IV 50 mls/hr .Q20H SHINE Administration Insulin Aspart 0 unit 01/22/18 00:00 01/23/18 08:19 Novolog SC 2 unit Q4H SHINE Administration Protocol Insulin Glargine 20 unit 01/20/18 17:13 01/22/18 21:01 Lantus SC 20 u HS SH[facility] Administration Insulin Human Regular 0 unit 01/25/18 07:47 01/25/18 08:50 Novolin R SC 10 unit Q6 [facility] Administration Protocol Pantoprazole Sodium 40 mg 01/21/18 12:00 01/25/18 09:13 Protonix Susp PO 40 mg 1000 [facility] Administration Rosuvastatin Calcium 10 mg 01/16/18 22:00 01/24/18 21:10 Crestor PO 10 mg HS [facility] Administration Sennosides 8.6 mg 01/17/18 14:00 01/25/18 09:15 Senokot Tab PO 8.6 mg DAILY [facility] Administration - Patient Studies Lab Studies: Microbiology Studies 01/22/18 14:00 Gram Stain - Final Back Wound Culture - Final Enterococcus Faecalis Coagulase Neg Staphylococcus 01/21/18 Unknown Blood Culture - Preliminary Blood-Venous NO GROWTH AFTER 3 DAYS 01/21/18 Unknown Blood Culture - Preliminary Blood-Venous NO GROWTH AFTER 3 DAYS 01/21/18 Unknown Gram Stain - Final Trachasp Sputum Culture - Final Staphylococcus Aureus Lab Studies 01/25/18 01/25/18 01/25/18 Range/Units 08:33 06:28 06:26 WBC 9.9 (4.8-10.8) K/uL RBC 4.38 L (4.40-5.90) Mil/uL Hgb 13.8 (12.0-18.0) g/dL Hct 41.0 (35.0-51.0) % MCV 93.7 (80.0-94.0) fL MCH 31.5 H (27.0-31.0) pg MCHC 33.6 (33.0-37.0) g/dL RDW 12.5 (11.5-14.5) % Plt Count 116 L (130-400) K/uL MPV 12.6 H (7.2-11.7) fL Neut % (Auto) 83.0 H (50.0-75.0) % Lymph % (Auto) 12.2 L (20.0-40.0) % [place] % (Auto) 3.7 (0.0-10.0) % Eos % (Auto) 0.7 (0.0-4.0) % Baso % (Auto) 0.4 (0.0-2.0) % Neut # (Auto) 8.2 H (1.8-7.0) K/uL Lymph # (Auto) 1.2 (1.0-4.3) K/uL [place] # (Auto) 0.4 (0.0-0.8) K/uL Eos # (Auto) 0.1 (0.0-0.7) K/uL Baso # (Auto) 0.0 (0.0-0.2) K/uL Sodium 149 H (132-148) mmol/L Potassium 4.3 (3.6-5.2) mmol/L Chloride 112 H (98-107) mmol/L Carbon Dioxide 24 (22-30) mmol/L Anion Gap 17 (10-20) BUN 36 H (9-20) mg/dL Creatinine 1.4 (0.8-1.5) mg/dL Est GFR ( Amer) > 60 Est GFR (Non-Af Amer) 51 POC Glucose (mg/dL) 368 H (65-110) mg/dL Random Glucose 441 H* D (75-110) mg/dL Calcium 8.5 L (8.6-10.4) mg/dl Total Bilirubin 0.6 (0.2-1.3) mg/dL AST 100 H D (17-59) U/L ALT 89 H D (21-72) U/L Alkaline Phosphatase 119 (38-126) U/L Total Protein 6.3 (6.3-8.3) g/dL Albumin 3.0 L (3.5-5.0) g/dL Globulin 3.3 (2.2-3.9) gm/dL Albumin/Globulin Ratio 0.9 L (1.0-2.1) 01/25/18 01/25/18 01/25/18 Range/Units 05:20 00:13 00:00 WBC (4.8-10.8) K/uL RBC (4.40-5.90) Mil/uL Hgb (12.0-18.0) g/dL Hct (35.0-51.0) % MCV (80.0-94.0) fL MCH (27.0-31.0) pg MCHC (33.0-37.0) g/dL RDW (11.5-14.5) % Plt Count (130-400) K/uL MPV (7.2-11.7) fL Neut % (Auto) (50.0-75.0) % Lymph % (Auto) (20.0-40.0) % [place] % (Auto) (0.0-10.0) % Eos % (Auto) (0.0-4.0) % Baso % (Auto) (0.0-2.0) % Neut # (Auto) (1.8-7.0) K/uL Lymph # (Auto) (1.0-4.3) K/uL [place] # (Auto) (0.0-0.8) K/uL Eos # (Auto) (0.0-0.7) K/uL Baso # (Auto) (0.0-0.2) K/uL Sodium 149 H (132-148) mmol/L Potassium 4.1 (3.6-5.2) mmol/L Chloride 112 H (98-107) mmol/L Carbon Dioxide 22 (22-30) mmol/L Anion Gap 19 (10-20) BUN 32 H (9-20) mg/dL Creatinine 1.2 (0.8-1.5) mg/dL Est GFR ( Amer) > 60 Est GFR (Non-Af Amer) > 60 POC Glucose (mg/dL) 386 H 299 H (65-110) mg/dL Random Glucose 353 H (75-110) mg/dL Calcium 7.9 L (8.6-10.4) mg/dl Total Bilirubin (0.2-1.3) mg/dL AST (17-59) U/L ALT (21-72) U/L Alkaline Phosphatase (38-126) U/L Total Protein (6.3-8.3) g/dL Albumin (3.5-5.0) g/dL Globulin (2.2-3.9) gm/dL Albumin/Globulin Ratio (1.0-2.1) 01/24/18 01/24/18 01/24/18 Range/Units 20:21 19:44 18:00 WBC (4.8-10.8) K/uL RBC (4.40-5.90) Mil/uL Hgb (12.0-18.0) g/dL Hct (35.0-51.0) % MCV (80.0-94.0) fL MCH (27.0-31.0) pg MCHC (33.0-37.0) g/dL RDW (11.5-14.5) % Plt Count (130-400) K/uL MPV (7.2-11.7) fL Neut % (Auto) (50.0-75.0) % Lymph % (Auto) (20.0-40.0) % [place] % (Auto) (0.0-10.0) % Eos % (Auto) (0.0-4.0) % Baso % (Auto) (0.0-2.0) % Neut # (Auto) (1.8-7.0) K/uL Lymph # (Auto) (1.0-4.3) K/uL [place] # (Auto) (0.0-0.8) K/uL Eos # (Auto) (0.0-0.7) K/uL Baso # (Auto) (0.0-0.2) K/uL Sodium (132-148) mmol/L Potassium (3.6-5.2) mmol/L Chloride (98-107) mmol/L Carbon Dioxide (22-30) mmol/L Anion Gap (10-20) BUN (9-20) mg/dL Creatinine (0.8-1.5) mg/dL Est GFR ( Amer) Est GFR (Non-Af Amer) POC Glucose (mg/dL) 236 H 221 H 237 H (65-110) mg/dL Random Glucose (75-110) mg/dL Calcium (8.6-10.4) mg/dl Total Bilirubin (0.2-1.3) mg/dL AST (17-59) U/L ALT (21-72) U/L Alkaline Phosphatase (38-126) U/L Total Protein (6.3-8.3) g/dL Albumin (3.5-5.0) g/dL Globulin (2.2-3.9) gm/dL Albumin/Globulin Ratio (1.0-2.1) 01/24/18 01/24/18 01/24/18 Range/Units 17:20 16:18 14:51 WBC (4.8-10.8) K/uL RBC (4.40-5.90) Mil/uL Hgb (12.0-18.0) g/dL Hct (35.0-51.0) % MCV (80.0-94.0) fL MCH (27.0-31.0) pg MCHC (33.0-37.0) g/dL RDW (11.5-14.5) % Plt Count (130-400) K/uL MPV (7.2-11.7) fL Neut % (Auto) (50.0-75.0) % Lymph % (Auto) (20.0-40.0) % [place] % (Auto) (0.0-10.0) % Eos % (Auto) (0.0-4.0) % Baso % (Auto) (0.0-2.0) % Neut # (Auto) (1.8-7.0) K/uL Lymph # (Auto) (1.0-4.3) K/uL [place] # (Auto) (0.0-0.8) K/uL Eos # (Auto) (0.0-0.7) K/uL Baso # (Auto) (0.0-0.2) K/uL Sodium (132-148) mmol/L Potassium (3.6-5.2) mmol/L Chloride (98-107) mmol/L Carbon Dioxide (22-30) mmol/L Anion Gap (10-20) BUN (9-20) mg/dL Creatinine (0.8-1.5) mg/dL Est GFR ( Amer) Est GFR (Non-Af Amer) POC Glucose (mg/dL) 258 H 260 H 226 H (65-110) mg/dL Random Glucose (75-110) mg/dL Calcium (8.6-10.4) mg/dl Total Bilirubin (0.2-1.3) mg/dL AST (17-59) U/L ALT (21-72) U/L Alkaline Phosphatase (38-126) U/L Total Protein (6.3-8.3) g/dL Albumin (3.5-5.0) g/dL Globulin (2.2-3.9) gm/dL Albumin/Globulin Ratio (1.0-2.1) 01/24/18 01/24/18 01/24/18 Range/Units 13:49 12:48 11:45 WBC (4.8-10.8) K/uL RBC (4.40-5.90) Mil/uL Hgb (12.0-18.0) g/dL Hct (35.0-51.0) % MCV (80.0-94.0) fL MCH (27.0-31.0) pg MCHC (33.0-37.0) g/dL RDW (11.5-14.5) % Plt Count (130-400) K/uL MPV (7.2-11.7) fL Neut % (Auto) (50.0-75.0) % Lymph % (Auto) (20.0-40.0) % [place] % (Auto) (0.0-10.0) % Eos % (Auto) (0.0-4.0) % Baso % (Auto) (0.0-2.0) % Neut # (Auto) (1.8-7.0) K/uL Lymph # (Auto) (1.0-4.3) K/uL [place] # (Auto) (0.0-0.8) K/uL Eos # (Auto) (0.0-0.7) K/uL Baso # (Auto) (0.0-0.2) K/uL Sodium (132-148) mmol/L Potassium (3.6-5.2) mmol/L Chloride (98-107) mmol/L Carbon Dioxide (22-30) mmol/L Anion Gap (10-20) BUN (9-20) mg/dL Creatinine (0.8-1.5) mg/dL Est GFR ( Amer) Est GFR (Non-Af Amer) POC Glucose (mg/dL) 223 H 227 H 242 H (65-110) mg/dL Random Glucose (75-110) mg/dL Calcium (8.6-10.4) mg/dl Total Bilirubin (0.2-1.3) mg/dL AST (17-59) U/L ALT (21-72) U/L Alkaline Phosphatase (38-126) U/L Total Protein (6.3-8.3) g/dL Albumin (3.5-5.0) g/dL Globulin (2.2-3.9) gm/dL Albumin/Globulin Ratio (1.0-2.1) 01/24/18 01/24/18 Range/Units 11:04 10:11 WBC (4.8-10.8) K/uL RBC (4.40-5.90) Mil/uL Hgb (12.0-18.0) g/dL Hct (35.0-51.0) % MCV (80.0-94.0) fL MCH (27.0-31.0) pg MCHC (33.0-37.0) g/dL RDW (11.5-14.5) % Plt Count (130-400) K/uL MPV (7.2-11.7) fL Neut % (Auto) (50.0-75.0) % Lymph % (Auto) (20.0-40.0) % [place] % (Auto) (0.0-10.0) % Eos % (Auto) (0.0-4.0) % Baso % (Auto) (0.0-2.0) % Neut # (Auto) (1.8-7.0) K/uL Lymph # (Auto) (1.0-4.3) K/uL [place] # (Auto) (0.0-0.8) K/uL Eos # (Auto) (0.0-0.7) K/uL Baso # (Auto) (0.0-0.2) K/uL Sodium (132-148) mmol/L Potassium (3.6-5.2) mmol/L Chloride (98-107) mmol/L Carbon Dioxide (22-30) mmol/L Anion Gap (10-20) BUN (9-20) mg/dL Creatinine (0.8-1.5) mg/dL Est GFR ( Amer) Est GFR (Non-Af Amer) POC Glucose (mg/dL) 218 H 212 H (65-110) mg/dL Random Glucose (75-110) mg/dL Calcium (8.6-10.4) mg/dl Total Bilirubin (0.2-1.3) mg/dL AST (17-59) U/L ALT (21-72) U/L Alkaline Phosphatase (38-126) U/L Total Protein (6.3-8.3) g/dL Albumin (3.5-5.0) g/dL Globulin (2.2-3.9) gm/dL Albumin/Globulin Ratio (1.0-2.1) Laboratory Results - last 24 hr 01/24/18 01/24/18 01/24/18 10:11 11:04 11:45 WBC RBC Hgb Hct MCV MCH MCHC RDW Plt Count MPV Neut % (Auto) Lymph % (Auto) [place] % (Auto) Eos % (Auto) Baso % (Auto) Neut # (Auto) Lymph # (Auto) [place] # (Auto) Eos # (Auto) Baso # (Auto) Sodium Potassium Chloride Carbon Dioxide Anion Gap BUN Creatinine Est GFR ( Amer) Est GFR (Non-Af Amer) POC Glucose (mg/dL) 212 H 218 H 242 H Random Glucose Calcium Total Bilirubin AST ALT Alkaline Phosphatase Total Protein Albumin Globulin Albumin/Globulin Ratio 01/24/18 01/24/18 01/24/18 12:48 13:49 14:51 WBC RBC Hgb Hct MCV MCH MCHC RDW Plt Count MPV Neut % (Auto) Lymph % (Auto) [place] % (Auto) Eos % (Auto) Baso % (Auto) Neut # (Auto) Lymph # (Auto) [place] # (Auto) Eos # (Auto) Baso # (Auto) Sodium Potassium Chloride Carbon Dioxide Anion Gap BUN Creatinine Est GFR ( Amer) Est GFR (Non-Af Amer) POC Glucose (mg/dL) 227 H 223 H 226 H Random Glucose Calcium Total Bilirubin AST ALT Alkaline Phosphatase Total Protein Albumin Globulin Albumin/Globulin Ratio 01/24/18 01/24/18 01/24/18 16:18 17:20 18:00 WBC RBC Hgb Hct MCV MCH MCHC RDW Plt Count MPV Neut % (Auto) Lymph % (Auto) [place] % (Auto) Eos % (Auto) Baso % (Auto) Neut # (Auto) Lymph # (Auto) [place] # (Auto) Eos # (Auto) Baso # (Auto) Sodium Potassium Chloride Carbon Dioxide Anion Gap BUN Creatinine Est GFR ( Amer) Est GFR (Non-Af Amer) POC Glucose (mg/dL) 260 H 258 H 237 H Random Glucose Calcium Total Bilirubin AST ALT Alkaline Phosphatase Total Protein Albumin Globulin Albumin/Globulin Ratio 01/24/18 01/24/18 01/25/18 19:44 20:21 00:00 WBC RBC Hgb Hct MCV MCH MCHC RDW Plt Count MPV Neut % (Auto) Lymph % (Auto) [place] % (Auto) Eos % (Auto) Baso % (Auto) Neut # (Auto) Lymph # (Auto) [place] # (Auto) Eos # (Auto) Baso # (Auto) Sodium Potassium Chloride Carbon Dioxide Anion Gap BUN Creatinine Est GFR ( Amer) Est GFR (Non-Af Amer) POC Glucose (mg/dL) 221 H 236 H 299 H Random Glucose Calcium Total Bilirubin AST ALT Alkaline Phosphatase Total Protein Albumin Globulin Albumin/Globulin Ratio 01/25/18 01/25/18 01/25/18 00:13 05:20 06:26 WBC RBC Hgb Hct MCV MCH MCHC RDW Plt Count MPV Neut % (Auto) Lymph % (Auto) [place] % (Auto) Eos % (Auto) Baso % (Auto) Neut # (Auto) Lymph # (Auto) [place] # (Auto) Eos # (Auto) Baso # (Auto) Sodium 149 H 149 H Potassium 4.1 4.3 Chloride 112 H 112 H Carbon Dioxide 22 24 Anion Gap 19 17 BUN 32 H 36 H Creatinine 1.2 1.4 Est GFR ( Amer) > 60 > 60 Est GFR (Non-Af Amer) > 60 51 POC Glucose (mg/dL) 386 H Random Glucose 353 H 441 H* D Calcium 7.9 L 8.5 L Total Bilirubin 0.6 AST 100 H D ALT 89 H D Alkaline Phosphatase 119 Total Protein 6.3 Albumin 3.0 L Globulin 3.3 Albumin/Globulin Ratio 0.9 L 01/25/18 01/25/18 06:28 08:33 WBC 9.9 RBC 4.38 L Hgb 13.8 Hct 41.0 MCV 93.7 MCH 31.5 H MCHC 33.6 RDW 12.5 Plt Count 116 L MPV 12.6 H Neut % (Auto) 83.0 H Lymph % (Auto) 12.2 L [place] % (Auto) 3.7 Eos % (Auto) 0.7 Baso % (Auto) 0.4 Neut # (Auto) 8.2 H Lymph # (Auto) 1.2 [place] # (Auto) 0.4 Eos # (Auto) 0.1 Baso # (Auto) 0.0 Sodium Potassium Chloride Carbon Dioxide Anion Gap BUN Creatinine Est GFR ( Amer) Est GFR (Non-Af Amer) POC Glucose (mg/dL) 368 H Random Glucose Calcium Total Bilirubin AST ALT Alkaline Phosphatase Total Protein Albumin Globulin Albumin/Globulin Ratio
--- NOTE | 2018-01-22 10:57 | RAD ---
HISTORY: intubation COMPARISON: January 22, 2018. Time of the most recent examination: 07:03. FINDINGS: LUNGS: No active pulmonary disease. PLEURA: No significant pleural effusion identified, no pneumothorax apparent. CARDIOVASCULAR: No radiographic findings to suggest acute or significant cardiovascular disease. Incidental Finding(s): Postoperative changes related to sternotomy. . OSSEOUS STRUCTURES: No significant abnormalities. VISUALIZED UPPER ABDOMEN: Normal. OTHER FINDINGS: The endotracheal tube, the tip at the level of the upper cervical spine. Stable position of nasogastric tube. IMPRESSION: I endotracheal tube which should be advanced for optimal placement.
--- NOTE | 2018-01-22 10:57 | CP.PCM.PN ---
Subjective - Date & Time of Evaluation Date of Evaluation: 01/22/18 Time of Evaluation: 10:54 - Subjective Subjective: PGY2 progress note for neurology, Dr. Baldwin Pt seen and examined at bedside. Currently intubated on PRVC. Patient not reacting to pain but does move extremities. No acute events overnight. 12 point ROS unobtainable due to mental status. Objective - Vital Signs/Intake and Output Vital Signs (last 24 hours): Temp Pulse Resp BP Pulse Ox 99.2 F 75 16 149/65 100 01/22/18 10:00 01/22/18 10:25 01/22/18 10:25 01/22/18 10:25 01/22/18 10:45 Intake and Output: 01/22/18 01/22/18 06:59 18:59 Intake Total 2725 1125 Output Total 1440 300 Balance 1285 825 - Medications Medications: Current Medications Acetaminophen (Tylenol 650mg/20.3ml Solution Ud) 650 mg NG Q6 PRN PRN Reason: GIVE FOR TEMP. 100*F OR ABOVE Last Admin: 01/22/18 06:02 Dose: 650 mg Albuterol Sulfate (Albuterol 0.083% Inhal Lynne (2.5 Mg/3 Ml) Ud) 2.5 mg IH RQ6 [facility] Last Admin: 01/22/18 02:41 Dose: 2.5 mg Aspirin (Aspirin Chewable) 81 mg PO DAILY [facility] Last Admin: 01/22/18 10:01 Dose: 81 mg Carvedilol (Coreg) 12.5 mg PO BID [facility] Last Admin: 01/22/18 10:01 Dose: 12.5 mg Heparin Sodium (Porcine) (Heparin) 5,000 units SC Q8 [facility] Last Admin: 01/22/18 06:00 Dose: 5,000 units Hydralazine HCl (Apresoline) 50 mg PO Q8 [facility] Last Admin: 01/22/18 06:00 Dose: 50 mg Dextrose (Dextrose 5% In Water 1000 Ml) 1,000 mls @ 125 mls/hr IV .Q8H [facility] Stop: 01/22/18 23:59 Last Admin: 01/22/18 03:59 Dose: 125 mls/hr Levetiracetam 1,000 mg/ Sodium (Chloride) 110 mls @ 440 mls/hr IVPB Q12H [facility] Last Admin: 01/22/18 10:23 Dose: 440 mls/hr Insulin Aspart (Novolog) 0 unit SC Q4H [facility] PRN Reason: Protocol Last Admin: 01/22/18 07:47 Dose: Not Given Insulin Glargine (Lantus) 20 unit SC [facility] Last Admin: 01/21/18 21:41 Dose: 20 u Pantoprazole Sodium (Protonix Susp) 40 mg PO 1000 [facility] Last Admin: 01/22/18 10:01 Dose: 40 mg Potassium Chloride (Potassium Chloride Oral Soln) 20 meq PO ONCE ONE Stop: 01/22/18 11:31 Rosuvastatin Calcium (Crestor) 10 mg PO [facility] Last Admin: 01/21/18 21:40 Dose: 10 mg Sennosides (Senokot Tab) 8.6 mg PO DAILY [facility] Last Admin: 01/21/18 10:25 Dose: 8.6 mg - Labs Labs: 01/22/18 06:02 01/22/18 06:02 PT 10.6 SECONDS (9.7-12.2) 01/16/18 12:27 INR 0.9 01/16/18 12:27 APTT 33 SECONDS (21-34) 01/16/18 12:27 - Constitutional Appears: Non-toxic, No Acute Distress - Head Exam Head Exam: ATRAUMATIC - ENT Exam ENT Exam: Mucous Membranes Moist - Respiratory Exam Respiratory Exam: Clear to Ausculation Bilateral. absent: Rales, Rhonchi, Wheezes - Cardiovascular Exam Cardiovascular Exam: REGULAR RHYTHM, +S1, +S2 - GI/Abdominal Exam GI & Abdominal Exam: Soft. absent: Distended, Tenderness - Neurological Exam Neurological Exam: absent: Alert, Awake, CN II-XII Intact, Oriented x3 Additional comments: no response to painful stimuli. Left pupil 3 mm non-reacting to light. Right pupil 2 mm reacting to light corneal reflex in tact - Psychiatric Exam Psychiatric exam: absent: Normal Affect, Normal Mood - Skin Skin Exam: Dry, Warm Assessment and Plan - Assessment and Plan (Free Text) Assessment: This is a 67 year old male with PMHx multiple CVA which are likely contributing to his new onset seizures. Plan: 1. New onset Seizures - EEG showed diffuse slowing is seen, suggestive of a diffuse abnormality of the brain. Some focal slowing was seen, suggestive of a focal abnormality. No seizures noted during the EEG recording. - Continue Keppra 1000 mg - Repeat CT of head showed no acute abnormalities - Prior insults are likely causing this new onset of seizures. - Patient has had recurrent fevers. Even though patient does have PNA on CXR, patient may benefit from LP to assess cause of fever and AMS. - Will continue to monitor clinical course Case will be discussed with attending, Dr. Baldwin
--- NOTE | 2018-01-22 10:58 | RAD ---
HISTORY: adjusted ET Tube COMPARISON: January 22, 2018. FINDINGS: LUNGS: No active pulmonary disease. PLEURA: No significant pleural effusion identified, no pneumothorax apparent. CARDIOVASCULAR: No radiographic findings to suggest acute or significant cardiovascular disease. OSSEOUS STRUCTURES: No significant abnormalities. VISUALIZED UPPER ABDOMEN: Normal. OTHER FINDINGS: Satisfactory position of repositioned endotracheal tube. The tip is at the level of the lower clavicles. Satisfactory position of nasogastric tube. IMPRESSION: Satisfactory position of recently re- ingested endotracheal tube.
[2018-01-22] MEDS ORDERED: Potassium Chloride 20 mEq/15 ml LIQ UD PO ONE (11:30)
--- NOTE | 2018-01-22 18:07 | CP.PCM.PN ---
Subjective - Date & Time of Evaluation Date of Evaluation: 01/22/18 Time of Evaluation: 18:07 - Subjective Subjective: pt is seen and examined, follow up consult is dictated #[id number] Objective - Vital Signs/Intake and Output Vital Signs (last 24 hours): Temp Pulse Resp BP Pulse Ox 101 F H 78 19 158/76 H 99 01/22/18 14:00 01/22/18 17:25 01/22/18 17:25 01/22/18 17:35 01/22/18 17:25 Intake and Output: 01/22/18 01/22/18 06:59 18:59 Intake Total 2725 2800 Output Total 1440 950 Balance 1285 1850 - Medications Medications: Current Medications Acetaminophen (Tylenol 650mg/20.3ml Solution Ud) 650 mg NG Q6 PRN PRN Reason: GIVE FOR TEMP. 100*F OR ABOVE Last Admin: 01/22/18 17:40 Dose: 650 mg Albuterol Sulfate (Albuterol 0.083% Inhal Lynne (2.5 Mg/3 Ml) Ud) 2.5 mg IH RQ6 [facility] Last Admin: 01/22/18 14:06 Dose: 2.5 mg Aspirin (Aspirin Chewable) 81 mg PO DAILY [facility] Last Admin: 01/22/18 10:01 Dose: 81 mg Carvedilol (Coreg) 12.5 mg PO BID [facility] Last Admin: 01/22/18 17:35 Dose: 12.5 mg Heparin Sodium (Porcine) (Heparin) 5,000 units SC Q8 [facility] Last Admin: 01/22/18 13:04 Dose: 5,000 units Hydralazine HCl (Apresoline) 50 mg PO Q8 [facility] Last Admin: 01/22/18 13:05 Dose: 50 mg Levetiracetam 1,000 mg/ Sodium (Chloride) 110 mls @ 440 mls/hr IVPB Q12H [facility] Last Admin: 01/22/18 10:23 Dose: 440 mls/hr Dextrose (Dextrose 5% In Water 1000 Ml) 1,000 mls @ 70 mls/hr IV .[id number] [facility] Insulin Aspart (Novolog) 0 unit SC Q4H [facility] PRN Reason: Protocol Last Admin: 01/22/18 16:40 Dose: 8 unit Insulin Glargine (Lantus) 20 unit SC HS [facility] Last Admin: 01/21/18 21:41 Dose: 20 u Pantoprazole Sodium (Protonix Susp) 40 mg PO 1000 [facility] Last Admin: 01/22/18 10:01 Dose: 40 mg Rosuvastatin Calcium (Crestor) 10 mg PO HS [facility] Last Admin: 01/21/18 21:40 Dose: 10 mg Sennosides (Senokot Tab) 8.6 mg PO DAILY [facility] Last Admin: 01/22/18 11:24 Dose: 8.6 mg - Labs Labs: 01/22/18 06:02 01/22/18 13:55 PT 10.6 SECONDS (9.7-12.2) 01/16/18 12:27 INR 0.9 01/16/18 12:27 APTT 33 SECONDS (21-34) 01/16/18 12:27
[2018-01-22] MEDS: (Lantus) Insulin Glargine, Recombinant SC SCH (21:01)
[2018-01-22 22:35] LABS: CALCIUM 8.5 mg/dl (8.6-10.4)
--- NOTE | 2018-01-22 23:39 | CP.PCM.PN ---
Subjective - Date & Time of Evaluation Date of Evaluation: 01/22/18 Time of Evaluation: 18:00 - Subjective Subjective: Pt is improving, na is coming down, pt is more alert, he is on mechanical ventilator, no fever Objective - Vital Signs/Intake and Output Vital Signs (last 24 hours): Temp Pulse Resp BP Pulse Ox 99.7 F H 72 19 141/60 99 01/22/18 20:00 01/22/18 22:26 01/22/18 22:26 01/22/18 22:26 01/22/18 22:26 Intake and Output: 01/22/18 01/23/18 18:59 06:59 Intake Total 2920 1200 Output Total 1000 745 Balance 1920 455 - Medications Medications: Current Medications Acetaminophen (Tylenol 650mg/20.3ml Solution Ud) 650 mg NG Q6 PRN PRN Reason: GIVE FOR TEMP. 100*F OR ABOVE Last Admin: 01/22/18 17:40 Dose: 650 mg Albuterol Sulfate (Albuterol 0.083% Inhal Lynne (2.5 Mg/3 Ml) Ud) 2.5 mg IH RQ6 [facility] Last Admin: 01/22/18 20:03 Dose: 2.5 mg Aspirin (Aspirin Chewable) 81 mg PO DAILY [facility] Last Admin: 01/22/18 10:01 Dose: 81 mg Carvedilol (Coreg) 12.5 mg PO BID [facility] Last Admin: 01/22/18 17:35 Dose: 12.5 mg Heparin Sodium (Porcine) (Heparin) 5,000 units SC Q8 [facility] Last Admin: 01/22/18 21:00 Dose: 5,000 units Hydralazine HCl (Apresoline) 50 mg PO Q8 [facility] Last Admin: 01/22/18 21:00 Dose: 50 mg Levetiracetam 1,000 mg/ Sodium (Chloride) 110 mls @ 440 mls/hr IVPB Q12H [facility] Last Admin: 01/22/18 21:01 Dose: 440 mls/hr Dextrose (Dextrose 5% In Water 1000 Ml) 1,000 mls @ 70 mls/hr IV .[id number] [facility] Last Admin: 01/22/18 18:19 Dose: 70 mls/hr Insulin Aspart (Novolog) 0 unit SC Q4H [facility] PRN Reason: Protocol Last Admin: 01/22/18 20:27 Dose: 8 unit Insulin Glargine (Lantus) 20 unit SC HS [facility] Last Admin: 01/22/18 21:01 Dose: 20 u Pantoprazole Sodium (Protonix Susp) 40 mg PO 1000 [facility] Last Admin: 01/22/18 10:01 Dose: 40 mg Rosuvastatin Calcium (Crestor) 10 mg PO HS [facility] Last Admin: 01/22/18 21:00 Dose: 10 mg Sennosides (Senokot Tab) 8.6 mg PO DAILY [facility] Last Admin: 01/22/18 11:24 Dose: 8.6 mg - Labs Labs: 01/22/18 06:02 01/22/18 22:18 PT 10.6 SECONDS (9.7-12.2) 01/16/18 12:27 INR 0.9 01/16/18 12:27 APTT 33 SECONDS (21-34) 01/16/18 12:27 - Constitutional Appears: No Acute Distress - Head Exam Head Exam: ATRAUMATIC, NORMAL INSPECTION, NORMOCEPHALIC - Eye Exam Eye Exam: EOMI, Normal appearance, PERRL Pupil Exam: NORMAL ACCOMODATION, PERRL - Respiratory Exam Respiratory Exam: Decreased Breath Sounds, Rales - Cardiovascular Exam Cardiovascular Exam: REGULAR RHYTHM, +S1, +S2. absent: Murmur - GI/Abdominal Exam GI & Abdominal Exam: Soft, Normal Bowel Sounds. absent: Tenderness Assessment and Plan (1) Status epilepticus Status: Acute (2) COPD (chronic obstructive pulmonary disease) Status: Acute (3) Congestive heart failure Status: Acute (4) Diabetes Status: Acute (5) Hypernatremia Status: Acute
[2018-01-23] MEDS: (Novolog) Insulin Aspart, Recombinant 100 u/ml 10 ml vial SC SCH ×3 (00:27→08:19)
[2018-01-23] MEDS: Albuterol 0.083% Inhal Sol (2.5 mg/3 mL) UD IH SCH ×4 (01:10→19:28)
[2018-01-23 04:34] LABS: ARTERIAL BLOOD GAS HCO3 27.6 mmol/L (21-28); ARTERIAL BLOOD GAS HEMOGLOBIN 18.3 g/dL (11.7-17.4); ARTERIAL BLOOD GAS O2 SAT 98.8 % (95-98); ARTERIAL BLOOD GAS PCO2 43 mm/Hg (35-45); ARTERIAL BLOOD GAS PH 7.43 (7.35-7.45); ARTERIAL BLOOD GAS PO2 100 mm/Hg (80-100); ARTERIAL BLOOD GAS TCO2 29.8 mmol/L (22-28)
[2018-01-23 06:43] LABS: BASO # 0.1 K/uL (0.0-0.2); BASO % 0.8 % (0.0-2.0); EOS # 0.2 K/uL (0.0-0.7); HEMOGLOBIN 13.4 g/dL (12.0-18.0); LYMPH # 1.7 K/uL (1.0-4.3); LYMPH % 24.5 % (20.0-40.0); MEAN CELL VOLUME 93.8 fL (80.0-94.0); MEAN CORPUSCULAR HEMOGLOBIN 30.9 pg (27.0-31.0); MEAN CORPUSCULAR HGB CONC 32.9 g/dL (33.0-37.0); MEAN PLATELET VOLUME 11.6 fL (7.2-11.7); MONO # 0.4 K/uL (0.0-0.8); MONO % 6.3 % (0.0-10.0); NEUT # 4.6 K/uL (1.8-7.0); NEUT % 65.4 % (50.0-75.0); NRBC % 0.1 % (0.0-2.0); RBC 4.35 Mil/uL (4.40-5.90); RED CELL DISTRIBUTION WIDTH 12.9 % (11.5-14.5); WHITE BLOOD COUNT 7.1 K/uL (4.8-10.8)
--- NOTE | 2018-01-23 06:51 | PN ---
DATE: 01/22/2018 FOLLOWUP RENAL CONSULTATION LOCATION: The patient is located in ICU, bed 5. REQUESTED BY: Dr. Arash Rose. REASON FOR RENAL FOLLOWUP: Hypernatremia and acute renal failure. HISTORY OF PRESENT ILLNESS: Mr. Latif is 67 years old elderly male with a history of hypertension, diabetes, hyperlipidemia, CVA, was found unresponsive at home and brought to the hospital with possible new onset seizures, witnessed seizures in the emergency room as per the ICU team. The patient was intubated for airway protection. The patient remains intubated since admission. The patient slightly opens eyes to painful stimuli. Not in distress, on ventilator. PHYSICAL EXAMINATION: VITAL SIGNS: As follows, blood pressure 158/76, pulse 72, respirations 17, temperature 100.5 and T-max is 101.2. Height 5 feet 9 inches, weight is 213 pounds. GENERAL: Mr. Latif is 67 years old elderly male, moderately built, moderate nourished, on ventilator, not following commands. HEENT: Pupils normal and reactive to light. Conjunctivae pink. Sclerae anicteric, on ventilator. Trachea is midline. LUNGS: Symmetric on both sides. Bilateral breath sounds present. No crackles. CVS: [place] at the fifth intercostal space, midclavicular line. S1, S2 audible. No murmur or gallop. ABDOMEN: Normal in appearance, soft, tympanic. No guarding. No rigidity. No hepatosplenomegaly. [employer]: The patient is on ventilator, not following commands. EXTREMITIES: No cyanosis, no clubbing, no edema. NEUROLOGIC: Sensory and motor system, spontaneously moving the legs. Try to open eyes slightly to deep painful stimuli. His intake and output as of 01/22/2018, intake is 5390 and output is 3145. LABORATORY DATA: Include as follows. As of 01/22/2018, WBC 6.7, hemoglobin 14, hematocrit is 41.4, platelets 132. ABG, pH 7.45, pCO2 of 43, pO2 of 85, bicarb is 28.9, and saturation is 98%. Vent setting, AC 16, tidal volume 500, FiO2 40%, PEEP of 5, and sodium this morning is 166, potassium is 3.5, chloride 125, CO2 of 28, BUN 37, creatinine 1.6, glucose is 155, calcium 8.3, phosphorus 3.3, magnesium 2.5, total bili 0.3, AST 55, ALT 63, alkaline phosphatase 59, total protein 6.3, albumin 3.0. As of 01/22/2018 at 13:55, sodium 159, potassium 4.4, chloride 121, CO2 of 28, BUN 32, creatinine 1.5, glucose 291, calcium 8.0. IMPRESSION: In summary, Mr. Latif is a 67 years old elderly male with a history of hypertension, diabetes, hyperlipidemia, CVA, found unresponsive on the bed by the family, status post witnessed seizures in the hospital with high sodium now and increased BUN and creatinine. 1. Acute renal failure on chronic kidney disease. Renal function is slowly improving. 2. Hypernatremia, most likely secondary to diuresis and also with Lasix and also osmotic diuresis. Now the patient is on free water by NG tube and also D5W. Serum sodium is gradually improving. We will decrease IV fluids to 70 mL/hour this evening and continue free water 300 mL q.4 hours. Goal is to decrease the serum sodium about 8 mEq per day. We will repeat BMP around 10:00 p.m. and again in a.m. We will follow with you. Thank you for allowing me to participate in your patient's care and continue vent support and continue to follow with neurology for further management. Continue antiseizure medication, Keppra. I discussed with the patient's daughter at bedside. Baldemar Ruiz MD
[2018-01-23 06:58] LABS: ALB/GLOB RATIO 0.9 (1.0-2.1); ALT/SGPT 63 U/L (21-72); AST/SGOT 54 U/L (17-59); BLOOD UREA NITROGEN 34 mg/dL (9-20); CALCIUM 8.3 mg/dl (8.6-10.4); GFR AFRICAN-AMERICAN > 60; GFR NON-AFRICAN AMERICAN 51
--- NOTE | 2018-01-23 08:35 | RAD ---
HISTORY: follow up COMPARISON: 01/22/2018. FINDINGS: The endotracheal tube terminates 1.7 cm proximal to the rianna. The nasogastric tube terminates in the stomach. LUNGS: The lungs are clear. PLEURA: No significant pleural effusion identified, no pneumothorax apparent. CARDIOVASCULAR: There is persistent mild cardiomegaly. Status post CABG. OSSEOUS STRUCTURES: No significant abnormalities. VISUALIZED UPPER ABDOMEN: Normal. OTHER FINDINGS: None. IMPRESSION: No acute findings. Stable position of endotracheal tube.
--- NOTE | 2018-01-23 09:28 | CP.CCUPN ---
CCU Subjective - Physician Review Subjective (Free Text): 01/22/18 10:36 Patient seen and examined at bedside. Per nursing no acute events occurred overnight. 01/23/18 09:27 Patient seen and examined at bedside. Per nursing no acute events occurred overnight. Critical Care Time Spent (in minutes): 35 CCU Objective - Vital Signs / Intake & Output Vital Signs (Last 4 hours): Vital Signs Temp Pulse Resp BP Pulse Ox 01/23/18 09:00 70 21 98 01/23/18 08:26 68 13 150/66 96 01/23/18 08:00 99.1 F 66 10 L 97 01/23/18 07:25 63 16 102/53 L 98 01/23/18 07:00 87 23 72 L 01/23/18 06:26 76 24 119/71 100 01/23/18 06:00 70 16 100 01/23/18 05:33 72 12 138/62 100 Intake and Output (Last 8hrs): Intake & Output 01/22/18 01/23/18 01/23/18 22:59 06:59 14:59 Intake Total 1425 1590 360 Output Total 970 795 335 Balance 455 795 25 Weight 213 lb Intake: Intake, IV Amount 725 590 210 Left Hand 725 590 210 Tube Feeding 400 400 150 Other 300 600 Output: Urine 970 795 335 Urethral (Stanley) 970 795 335 - Physical Exam Head: Positive for: Atraumatic, Normocephalic Pupils: Positive for: Other (corneal reflex) Mouth: Positive for: Other (trach in place) Neck: Positive for: Normal Range of Motion Respiratory/Chest: Positive for: Clear to Auscultation. Negative for: Respiratory Distress Cardiovascular: Positive for: Regular Rate and Rhythm, Normal S1, S2. Negative for: Tachycardic Abdomen: Positive for: Normal Bowel Sounds, Other (obese). Negative for: Tenderness, Distention, Peritoneal Signs Lower Extremity: Positive for: Normal Inspection Neurological: Positive for: Other (patient resists both upper extremities upon examination.) - Medications Active Medications: Active Medications Generic Name Dose Route Start Last Admin Trade Name Freq PRN Reason Stop Dose Admin Acetaminophen 650 mg 01/19/18 00:50 01/22/18 17:40 Tylenol 650mg/20.3ml Solution Ud NG 650 mg Q6 PRN Administration GIVE FOR TEMP. 100*F OR ABOVE Albuterol Sulfate 2.5 mg 01/16/18 14:45 01/23/18 08:10 Albuterol 0.083% Inhal Lynne (2.5 Mg/3 Ml) Ud IH 2.5 mg RQ6 SHINE Administration Aspirin 81 mg 01/17/18 10:00 01/22/18 10:01 Aspirin Chewable PO 81 mg DAILY SHINE Administration Carvedilol 12.5 mg 01/22/18 09:07 01/22/18 17:35 Coreg PO 12.5 mg BID SHINE Administration Heparin Sodium (Porcine) 5,000 units 01/17/18 14:00 01/23/18 05:18 Heparin SC 5,000 units Q8 SHINE Administration Hydralazine HCl 50 mg 01/16/18 22:00 01/23/18 05:18 Apresoline PO 50 mg Q8 SHINE Administration Levetiracetam 1,000 mg/ Sodium 110 mls @ 440 mls/hr 01/22/18 10:00 01/22/18 21:01 Chloride IVPB 440 mls/hr Q12H SHINE Administration Dextrose 1,000 mls @ 70 mls/hr 01/22/18 18:00 01/23/18 08:19 Dextrose 5% In Water 1000 Ml IV 70 mls/hr .[id number] SHINE Administration Desmopressin Acetate 2 mcg/ 50.5 mls @ 100 mls/hr 01/23/18 10:00 Sodium Chloride IV Q12 SHINE Insulin Aspart 0 unit 01/22/18 00:00 01/23/18 08:19 Novolog SC 2 unit Q4H SHINE Administration Protocol Insulin Glargine 20 unit 01/20/18 17:13 01/22/18 21:01 Lantus SC 20 u HS SHINE Administration Pantoprazole Sodium 40 mg 01/21/18 12:00 01/22/18 10:01 Protonix Susp PO 40 mg 1000 SHINE Administration Rosuvastatin Calcium 10 mg 01/16/18 22:00 01/22/18 21:00 Crestor PO 10 mg HS SHINE Administration Sennosides 8.6 mg 01/17/18 14:00 01/22/18 11:24 Senokot Tab PO 8.6 mg DAILY SHINE Administration - Patient Studies Lab Studies: Microbiology Studies 01/22/18 14:00 Gram Stain - Final Back 01/17/18 15:26 Blood Culture - Final Blood NO GROWTH AFTER 5 DAYS Gram Stain - Final TEST NOT PERFORMED 01/17/18 15:26 Blood Culture - Final Blood NO GROWTH AFTER 5 DAYS Gram Stain - Final TEST NOT PERFORMED 01/21/18 Unknown Blood Culture - Preliminary Blood-Venous NO GROWTH AFTER 24 HOURS 01/21/18 Unknown Blood Culture - Preliminary Blood-Venous NO GROWTH AFTER 24 HOURS 01/21/18 Unknown Gram Stain - Final Trachasp 01/21/18 Unknown Urine Culture - Final Urine,Stanley No Growth (<1,000 CFU/ML) Lab Studies 01/23/18 01/23/18 01/23/18 Range/Units 07:32 06:34 06:34 WBC 7.1 (4.8-10.8) K/uL RBC 4.35 L (4.40-5.90) Mil/uL Hgb 13.4 (12.0-18.0) g/dL Hct 40.8 (35.0-51.0) % MCV 93.8 (80.0-94.0) fL MCH 30.9 (27.0-31.0) pg MCHC 32.9 L (33.0-37.0) g/dL RDW 12.9 (11.5-14.5) % Plt Count 118 L (130-400) K/uL MPV 11.6 (7.2-11.7) fL Neut % (Auto) 65.4 (50.0-75.0) % Lymph % (Auto) 24.5 (20.0-40.0) % [place] % (Auto) 6.3 (0.0-10.0) % Eos % (Auto) 3.0 (0.0-4.0) % Baso % (Auto) 0.8 (0.0-2.0) % Neut # (Auto) 4.6 (1.8-7.0) K/uL Lymph # (Auto) 1.7 (1.0-4.3) K/uL [place] # (Auto) 0.4 (0.0-0.8) K/uL Eos # (Auto) 0.2 (0.0-0.7) K/uL Baso # (Auto) 0.1 (0.0-0.2) K/uL Puncture Site pCO2 (35-45) mm/Hg pO2 (80-100) mm/Hg HCO3 (21-28) mmol/L ABG pH (7.35-7.45) ABG Total CO2 (22-28) mmol/L ABG O2 Saturation (95-98) % ABG Base Excess (-2.0-3.0) mmol/L ABG Hemoglobin (11.7-17.4) g/dL ABG Carboxyhemoglobin (0.5-1.5) % POC ABG HHb (Measured) (0.0-5.0) % ABG Methemoglobin (0.0-3.0) % Jamey Test A-a O2 Difference mm/Hg Respiratory Index Hgb O2 Saturation (95.0-98.0) % Vent Mode Mechanical Rate FiO2 % Tidal Volume PEEP Sodium 158 H (132-148) mmol/L Potassium 3.8 (3.6-5.2) mmol/L Chloride 119 H (98-107) mmol/L Carbon Dioxide 28 (22-30) mmol/L Anion Gap 15 (10-20) BUN 34 H (9-20) mg/dL Creatinine 1.4 (0.8-1.5) mg/dL Est GFR ( Amer) > 60 Est GFR (Non-Af Amer) 51 POC Glucose (mg/dL) 163 H (65-110) mg/dL Random Glucose 207 H (75-110) mg/dL Calcium 8.3 L (8.6-10.4) mg/dl Phosphorus 3.3 (2.5-4.5) mg/dL Magnesium 2.6 H (1.6-2.3) mg/dL Total Bilirubin 0.6 (0.2-1.3) mg/dL AST 54 (17-59) U/L ALT 63 (21-72) U/L Alkaline Phosphatase 65 (38-126) U/L Total Protein 6.3 (6.3-8.3) g/dL Albumin 3.0 L (3.5-5.0) g/dL Globulin 3.4 (2.2-3.9) gm/dL Albumin/Globulin Ratio 0.9 L (1.0-2.1) Urine Chloride (32-290) mmol/L 03/06/18 03/06/18 03/06/18 Range/Units 04:30 04:13 00:00 WBC (4.8-10.8) K/uL RBC (4.40-5.90) Mil/uL Hgb (12.0-18.0) g/dL Hct (35.0-51.0) % MCV (80.0-94.0) fL MCH (27.0-31.0) pg MCHC (33.0-37.0) g/dL RDW (11.5-14.5) % Plt Count (130-400) K/uL MPV (7.2-11.7) fL Neut % (Auto) (50.0-75.0) % Lymph % (Auto) (20.0-40.0) % [place] % (Auto) (0.0-10.0) % Eos % (Auto) (0.0-4.0) % Baso % (Auto) (0.0-2.0) % Neut # (Auto) (1.8-7.0) K/uL Lymph # (Auto) (1.0-4.3) K/uL [place] # (Auto) (0.0-0.8) K/uL Eos # (Auto) (0.0-0.7) K/uL Baso # (Auto) (0.0-0.2) K/uL Puncture Site Rb pCO2 43 (35-45) mm/Hg pO2 100 (80-100) mm/Hg HCO3 27.6 (21-28) mmol/L ABG pH 7.43 (7.35-7.45) ABG Total CO2 29.8 H (22-28) mmol/L ABG O2 Saturation 98.8 H (95-98) % ABG Base Excess 3.5 H (-2.0-3.0) mmol/L ABG Hemoglobin 18.3 H (11.7-17.4) g/dL ABG Carboxyhemoglobin 1.7 H (0.5-1.5) % POC ABG HHb (Measured) 1.2 (0.0-5.0) % ABG Methemoglobin 0.9 (0.0-3.0) % Jamey Test Na A-a O2 Difference 131.0 mm/Hg Respiratory Index 1.3 Hgb O2 Saturation 96.2 (95.0-98.0) % Vent Mode Prvc Mechanical Rate 16 FiO2 40.0 % Tidal Volume 500 PEEP 5 Sodium (132-148) mmol/L Potassium (3.6-5.2) mmol/L Chloride (98-107) mmol/L Carbon Dioxide (22-30) mmol/L Anion Gap (10-20) BUN (9-20) mg/dL Creatinine (0.8-1.5) mg/dL Est GFR ( Amer) Est GFR (Non-Af Amer) POC Glucose (mg/dL) 209 H 240 H (65-110) mg/dL Random Glucose (75-110) mg/dL Calcium (8.6-10.4) mg/dl Phosphorus (2.5-4.5) mg/dL Magnesium (1.6-2.3) mg/dL Total Bilirubin (0.2-1.3) mg/dL AST (17-59) U/L ALT (21-72) U/L Alkaline Phosphatase (38-126) U/L Total Protein (6.3-8.3) g/dL Albumin (3.5-5.0) g/dL Globulin (2.2-3.9) gm/dL Albumin/Globulin Ratio (1.0-2.1) Urine Chloride (32-290) mmol/L 01/22/18 01/22/18 01/22/18 Range/Units 22:18 21:33 20:13 WBC (4.8-10.8) K/uL RBC (4.40-5.90) Mil/uL Hgb (12.0-18.0) g/dL Hct (35.0-51.0) % MCV (80.0-94.0) fL MCH (27.0-31.0) pg MCHC (33.0-37.0) g/dL RDW (11.5-14.5) % Plt Count (130-400) K/uL MPV (7.2-11.7) fL Neut % (Auto) (50.0-75.0) % Lymph % (Auto) (20.0-40.0) % [place] % (Auto) (0.0-10.0) % Eos % (Auto) (0.0-4.0) % Baso % (Auto) (0.0-2.0) % Neut # (Auto) (1.8-7.0) K/uL Lymph # (Auto) (1.0-4.3) K/uL [place] # (Auto) (0.0-0.8) K/uL Eos # (Auto) (0.0-0.7) K/uL Baso # (Auto) (0.0-0.2) K/uL Puncture Site pCO2 (35-45) mm/Hg pO2 (80-100) mm/Hg HCO3 (21-28) mmol/L ABG pH (7.35-7.45) ABG Total CO2 (22-28) mmol/L ABG O2 Saturation (95-98) % ABG Base Excess (-2.0-3.0) mmol/L ABG Hemoglobin (11.7-17.4) g/dL ABG Carboxyhemoglobin (0.5-1.5) % POC ABG HHb (Measured) (0.0-5.0) % ABG Methemoglobin (0.0-3.0) % Jamey Test A-a O2 Difference mm/Hg Respiratory Index Hgb O2 Saturation (95.0-98.0) % Vent Mode Mechanical Rate FiO2 % Tidal Volume PEEP Sodium 158 H (132-148) mmol/L Potassium 4.0 (3.6-5.2) mmol/L Chloride 119 H (98-107) mmol/L Carbon Dioxide 28 (22-30) mmol/L Anion Gap 14 (10-20) BUN 34 H (9-20) mg/dL Creatinine 1.5 (0.8-1.5) mg/dL Est GFR ( Amer) 56 Est GFR (Non-Af Amer) 47 POC Glucose (mg/dL) 297 H 333 H (65-110) mg/dL Random Glucose 336 H (75-110) mg/dL Calcium 8.5 L (8.6-10.4) mg/dl Phosphorus (2.5-4.5) mg/dL Magnesium (1.6-2.3) mg/dL Total Bilirubin (0.2-1.3) mg/dL AST (17-59) U/L ALT (21-72) U/L Alkaline Phosphatase (38-126) U/L Total Protein (6.3-8.3) g/dL Albumin (3.5-5.0) g/dL Globulin (2.2-3.9) gm/dL Albumin/Globulin Ratio (1.0-2.1) Urine Chloride (32-290) mmol/L 01/22/18 01/22/18 01/22/18 Range/Units 16:03 13:55 11:20 WBC (4.8-10.8) K/uL RBC (4.40-5.90) Mil/uL Hgb (12.0-18.0) g/dL Hct (35.0-51.0) % MCV (80.0-94.0) fL MCH (27.0-31.0) pg MCHC (33.0-37.0) g/dL RDW (11.5-14.5) % Plt Count (130-400) K/uL MPV (7.2-11.7) fL Neut % (Auto) (50.0-75.0) % Lymph % (Auto) (20.0-40.0) % [place] % (Auto) (0.0-10.0) % Eos % (Auto) (0.0-4.0) % Baso % (Auto) (0.0-2.0) % Neut # (Auto) (1.8-7.0) K/uL Lymph # (Auto) (1.0-4.3) K/uL [place] # (Auto) (0.0-0.8) K/uL Eos # (Auto) (0.0-0.7) K/uL Baso # (Auto) (0.0-0.2) K/uL Puncture Site pCO2 (35-45) mm/Hg pO2 (80-100) mm/Hg HCO3 (21-28) mmol/L ABG pH (7.35-7.45) ABG Total CO2 (22-28) mmol/L ABG O2 Saturation (95-98) % ABG Base Excess (-2.0-3.0) mmol/L ABG Hemoglobin (11.7-17.4) g/dL ABG Carboxyhemoglobin (0.5-1.5) % POC ABG HHb (Measured) (0.0-5.0) % ABG Methemoglobin (0.0-3.0) % Jamey Test A-a O2 Difference mm/Hg Respiratory Index Hgb O2 Saturation (95.0-98.0) % Vent Mode Mechanical Rate FiO2 % Tidal Volume PEEP Sodium 159 H (132-148) mmol/L Potassium 4.4 (3.6-5.2) mmol/L Chloride 121 H (98-107) mmol/L Carbon Dioxide 28 (22-30) mmol/L Anion Gap 15 (10-20) BUN 32 H (9-20) mg/dL Creatinine 1.5 (0.8-1.5) mg/dL Est GFR ( Amer) 56 Est GFR (Non-Af Amer) 47 POC Glucose (mg/dL) 341 H 147 H (65-110) mg/dL Random Glucose 291 H (75-110) mg/dL Calcium 8.0 L (8.6-10.4) mg/dl Phosphorus (2.5-4.5) mg/dL Magnesium (1.6-2.3) mg/dL Total Bilirubin (0.2-1.3) mg/dL AST (17-59) U/L ALT (21-72) U/L Alkaline Phosphatase (38-126) U/L Total Protein (6.3-8.3) g/dL Albumin (3.5-5.0) g/dL Globulin (2.2-3.9) gm/dL Albumin/Globulin Ratio (1.0-2.1) Urine Chloride (32-290) mmol/L 01/20/18 Range/Units 18:08 WBC (4.8-10.8) K/uL RBC (4.40-5.90) Mil/uL Hgb (12.0-18.0) g/dL Hct (35.0-51.0) % MCV (80.0-94.0) fL MCH (27.0-31.0) pg MCHC (33.0-37.0) g/dL RDW (11.5-14.5) % Plt Count (130-400) K/uL MPV (7.2-11.7) fL Neut % (Auto) (50.0-75.0) % Lymph % (Auto) (20.0-40.0) % [place] % (Auto) (0.0-10.0) % Eos % (Auto) (0.0-4.0) % Baso % (Auto) (0.0-2.0) % Neut # (Auto) (1.8-7.0) K/uL Lymph # (Auto) (1.0-4.3) K/uL [place] # (Auto) (0.0-0.8) K/uL Eos # (Auto) (0.0-0.7) K/uL Baso # (Auto) (0.0-0.2) K/uL Puncture Site pCO2 (35-45) mm/Hg pO2 (80-100) mm/Hg HCO3 (21-28) mmol/L ABG pH (7.35-7.45) ABG Total CO2 (22-28) mmol/L ABG O2 Saturation (95-98) % ABG Base Excess (-2.0-3.0) mmol/L ABG Hemoglobin (11.7-17.4) g/dL ABG Carboxyhemoglobin (0.5-1.5) % POC ABG HHb (Measured) (0.0-5.0) % ABG Methemoglobin (0.0-3.0) % Jamey Test A-a O2 Difference mm/Hg Respiratory Index Hgb O2 Saturation (95.0-98.0) % Vent Mode Mechanical Rate FiO2 % Tidal Volume PEEP Sodium (132-148) mmol/L Potassium (3.6-5.2) mmol/L Chloride (98-107) mmol/L Carbon Dioxide (22-30) mmol/L Anion Gap (10-20) BUN (9-20) mg/dL Creatinine (0.8-1.5) mg/dL Est GFR ( Amer) Est GFR (Non-Af Amer) POC Glucose (mg/dL) (65-110) mg/dL Random Glucose (75-110) mg/dL Calcium (8.6-10.4) mg/dl Phosphorus (2.5-4.5) mg/dL Magnesium (1.6-2.3) mg/dL Total Bilirubin (0.2-1.3) mg/dL AST (17-59) U/L ALT (21-72) U/L Alkaline Phosphatase (38-126) U/L Total Protein (6.3-8.3) g/dL Albumin (3.5-5.0) g/dL Globulin (2.2-3.9) gm/dL Albumin/Globulin Ratio (1.0-2.1) Urine Chloride 44 (32-290) mmol/L Laboratory Results - last 24 hr 01/20/18 01/22/18 01/22/18 18:08 11:20 13:55 WBC RBC Hgb Hct MCV MCH MCHC RDW Plt Count MPV Neut % (Auto) Lymph % (Auto) [place] % (Auto) Eos % (Auto) Baso % (Auto) Neut # (Auto) Lymph # (Auto) [place] # (Auto) Eos # (Auto) Baso # (Auto) Puncture Site pCO2 pO2 HCO3 ABG pH ABG Total CO2 ABG O2 Saturation ABG Base Excess ABG Hemoglobin ABG Carboxyhemoglobin POC ABG HHb (Measured) ABG Methemoglobin Jamey Test A-a O2 Difference Respiratory Index Hgb O2 Saturation Vent Mode Mechanical Rate FiO2 Tidal Volume PEEP Sodium 159 H Potassium 4.4 Chloride 121 H Carbon Dioxide 28 Anion Gap 15 BUN 32 H Creatinine 1.5 Est GFR ( Amer) 56 Est GFR (Non-Af Amer) 47 POC Glucose (mg/dL) 147 H Random Glucose 291 H Calcium 8.0 L Phosphorus Magnesium Total Bilirubin AST ALT Alkaline Phosphatase Total Protein Albumin Globulin Albumin/Globulin Ratio Urine Chloride 44 01/22/18 01/22/18 01/22/18 16:03 20:13 21:33 WBC RBC Hgb Hct MCV MCH MCHC RDW Plt Count MPV Neut % (Auto) Lymph % (Auto) [place] % (Auto) Eos % (Auto) Baso % (Auto) Neut # (Auto) Lymph # (Auto) [place] # (Auto) Eos # (Auto) Baso # (Auto) Puncture Site pCO2 pO2 HCO3 ABG pH ABG Total CO2 ABG O2 Saturation ABG Base Excess ABG Hemoglobin ABG Carboxyhemoglobin POC ABG HHb (Measured) ABG Methemoglobin Jamey Test A-a O2 Difference Respiratory Index Hgb O2 Saturation Vent Mode Mechanical Rate FiO2 Tidal Volume PEEP Sodium Potassium Chloride Carbon Dioxide Anion Gap BUN Creatinine Est GFR ( Amer) Est GFR (Non-Af Amer) POC Glucose (mg/dL) 341 H 333 H 297 H Random Glucose Calcium Phosphorus Magnesium Total Bilirubin AST ALT Alkaline Phosphatase Total Protein Albumin Globulin Albumin/Globulin Ratio Urine Chloride 01/22/18 01/23/18 01/23/18 22:18 00:00 04:13 WBC RBC Hgb Hct MCV MCH MCHC RDW Plt Count MPV Neut % (Auto) Lymph % (Auto) [place] % (Auto) Eos % (Auto) Baso % (Auto) Neut # (Auto) Lymph # (Auto) [place] # (Auto) Eos # (Auto) Baso # (Auto) Puncture Site pCO2 pO2 HCO3 ABG pH ABG Total CO2 ABG O2 Saturation ABG Base Excess ABG Hemoglobin ABG Carboxyhemoglobin POC ABG HHb (Measured) ABG Methemoglobin Jamey Test A-a O2 Difference Respiratory Index Hgb O2 Saturation Vent Mode Mechanical Rate FiO2 Tidal Volume PEEP Sodium 158 H Potassium 4.0 Chloride 119 H Carbon Dioxide 28 Anion Gap 14 BUN 34 H Creatinine 1.5 Est GFR ( Amer) 56 Est GFR (Non-Af Amer) 47 POC Glucose (mg/dL) 240 H 209 H Random Glucose 336 H Calcium 8.5 L Phosphorus Magnesium Total Bilirubin AST ALT Alkaline Phosphatase Total Protein Albumin Globulin Albumin/Globulin Ratio Urine Chloride 01/23/18 01/23/18 01/23/18 04:30 06:34 06:34 WBC 7.1 RBC 4.35 L Hgb 13.4 Hct 40.8 MCV 93.8 MCH 30.9 MCHC 32.9 L RDW 12.9 Plt Count 118 L MPV 11.6 Neut % (Auto) 65.4 Lymph % (Auto) 24.5 [place] % (Auto) 6.3 Eos % (Auto) 3.0 Baso % (Auto) 0.8 Neut # (Auto) 4.6 Lymph # (Auto) 1.7 [place] # (Auto) 0.4 Eos # (Auto) 0.2 Baso # (Auto) 0.1 Puncture Site Rb pCO2 43 pO2 100 HCO3 27.6 ABG pH 7.43 ABG Total CO2 29.8 H ABG O2 Saturation 98.8 H ABG Base Excess 3.5 H ABG Hemoglobin 18.3 H ABG Carboxyhemoglobin 1.7 H POC ABG HHb (Measured) 1.2 ABG Methemoglobin 0.9 Jamey Test Na A-a O2 Difference 131.0 Respiratory Index 1.3 Hgb O2 Saturation 96.2 Vent Mode Prvc Mechanical Rate 16 FiO2 40.0 Tidal Volume 500 PEEP 5 Sodium 158 H Potassium 3.8 Chloride 119 H Carbon Dioxide 28 Anion Gap 15 BUN 34 H Creatinine 1.4 Est GFR ( Amer) > 60 Est GFR (Non-Af Amer) 51 POC Glucose (mg/dL) Random Glucose 207 H Calcium 8.3 L Phosphorus 3.3 Magnesium 2.6 H Total Bilirubin 0.6 AST 54 ALT 63 Alkaline Phosphatase 65 Total Protein 6.3 Albumin 3.0 L Globulin 3.4 Albumin/Globulin Ratio 0.9 L Urine Chloride 01/23/18 07:32 WBC RBC Hgb Hct MCV MCH MCHC RDW Plt Count MPV Neut % (Auto) Lymph % (Auto) [place] % (Auto) Eos % (Auto) Baso % (Auto) Neut # (Auto) Lymph # (Auto) [place] # (Auto) Eos # (Auto) Baso # (Auto) Puncture Site pCO2 pO2 HCO3 ABG pH ABG Total CO2 ABG O2 Saturation ABG Base Excess ABG Hemoglobin ABG Carboxyhemoglobin POC ABG HHb (Measured) ABG Methemoglobin Jamey Test A-a O2 Difference Respiratory Index Hgb O2 Saturation Vent Mode Mechanical Rate FiO2 Tidal Volume PEEP Sodium Potassium Chloride Carbon Dioxide Anion Gap BUN Creatinine Est GFR ( Amer) Est GFR (Non-Af Amer) POC Glucose (mg/dL) 163 H Random Glucose Calcium Phosphorus Magnesium Total Bilirubin AST ALT Alkaline Phosphatase Total Protein Albumin Globulin Albumin/Globulin Ratio Urine Chloride Fingerstick Blood Sugar Results: 240 Review of Systems - Review of Systems Systems not reviewed;Unavailable: Acuity of Condition Assessment/Plan - Assessment and Plan (Free Text) Assessment: 67 year old male with a past medical history of type 2 dm, hypertension, cva, s/ p cabg (8yrs ago), hyperlipidemia who was admitted to the ICU after being found unresponsive by daughter. Patient subsequently had a witnessed seizure while in the hospital and was transferred to the ICU for further monitoring . Plan: Neurology:New onset Seizures - EEG showed diffuse slowing is seen, suggestive of a diffuse abnormality of the brain. Some focal slowing was seen, suggestive of a focal abnormality. No seizures noted during the EEG recording. - Continue Keppra 1000 mg - Repeat CT of head showed no acute abnormalities -Neurology following. -Patient transfer to [facility]. Hematology:Electrolyte imbalances -Elevated sodium. Will continue to monitor with serial CMP's. Cardiovascular: Hypertension -continue carvedilol and hydralazine Hematology: DVT of Right subclavian vein -Eliquis 10mg BID held at this time. Renal: Hypernatremia -DDAVP 2mc q12 started -Will continue to monitor with serial CMP's. Endocrinology:h/o Diabetes -ISS high -Accuchecks -SISS for coverage. GI:Tube feeding Continue [email or web address] ID no acute issues, stopping abx. GI proph - protonix DVT proph - heparin sq
[2018-01-23] MEDS: Pantoprazole 40 mg Susp UD PO SCH (10:48)
[2018-01-23] MEDS: levETIRAcetam 1,000 MG in Sodium Chloride 0.9% 100 ML IVPB SCH ×2 (10:49→21:22)
--- NOTE | 2018-01-23 11:16 | CP.PCM.PN ---
Subjective - Date & Time of Evaluation Date of Evaluation: 01/23/18 Time of Evaluation: 11:07 - Subjective Subjective: pt is seen and examined, follow up consult is dictated #[id number] no role of DDAVP/ demopressin in this case c/w ivf d5w at 100 ml/hr and increase free water to 400 ml q 4 hrs bmp q 8hrs Objective - Vital Signs/Intake and Output Vital Signs (last 24 hours): Temp Pulse Resp BP Pulse Ox 99.1 F 72 18 147/62 99 01/23/18 08:00 01/23/18 10:00 01/23/18 10:00 01/23/18 10:48 01/23/18 10:00 Intake and Output: 01/23/18 01/23/18 06:59 18:59 Intake Total 2370 980 Output Total 1390 555 Balance 980 425 - Medications Medications: Current Medications Acetaminophen (Tylenol 650mg/20.3ml Solution Ud) 650 mg NG Q6 PRN PRN Reason: GIVE FOR TEMP. 100*F OR ABOVE Last Admin: 01/22/18 17:40 Dose: 650 mg Albuterol Sulfate (Albuterol 0.083% Inhal Lnyne (2.5 Mg/3 Ml) Ud) 2.5 mg IH RQ6 [facility] Last Admin: 01/23/18 08:10 Dose: 2.5 mg Apixaban (Eliquis) 10 mg PO BID [facility] Stop: 01/30/18 18:01 Aspirin (Aspirin Chewable) 81 mg PO DAILY [facility] Last Admin: 01/23/18 10:49 Dose: 81 mg Carvedilol (Coreg) 12.5 mg PO BID [facility] Last Admin: 01/23/18 10:48 Dose: 12.5 mg Heparin Sodium (Porcine) (Heparin) 5,000 units SC Q8 [facility] Last Admin: 01/23/18 05:18 Dose: 5,000 units Hydralazine HCl (Apresoline) 50 mg PO Q8 [facility] Last Admin: 01/23/18 05:18 Dose: 50 mg Levetiracetam 1,000 mg/ Sodium (Chloride) 110 mls @ 440 mls/hr IVPB Q12H [facility] Last Admin: 01/23/18 10:49 Dose: 440 mls/hr Dextrose (Dextrose 5% In Water 1000 Ml) 1,000 mls @ 70 mls/hr IV .[id number] [facility] Last Admin: 01/23/18 08:19 Dose: 70 mls/hr Desmopressin Acetate 2 mcg/ (Sodium Chloride) 50.5 mls @ 100 mls/hr IV Q12 [facility] Last Admin: 01/23/18 10:49 Dose: 100 mls/hr Insulin Aspart (Novolog) 0 unit SC Q4H [facility] PRN Reason: Protocol Last Admin: 01/23/18 08:19 Dose: 2 unit Insulin Glargine (Lantus) 20 unit SC [facility] Last Admin: 01/22/18 21:01 Dose: 20 u Pantoprazole Sodium (Protonix Susp) 40 mg PO 1000 [facility] Last Admin: 01/23/18 10:48 Dose: 40 mg Rosuvastatin Calcium (Crestor) 10 mg PO HS [facility] Last Admin: 01/22/18 21:00 Dose: 10 mg Sennosides (Senokot Tab) 8.6 mg PO DAILY [facility] Last Admin: 01/23/18 10:49 Dose: 8.6 mg - Labs Labs: 01/23/18 06:34 01/23/18 06:34 PT 10.6 SECONDS (9.7-12.2) 01/16/18 12:27 INR 0.9 01/16/18 12:27 APTT 33 SECONDS (21-34) 01/16/18 12:27
--- NOTE | 2018-01-23 11:25 | CP.PCM.PN ---
Subjective - Date & Time of Evaluation Date of Evaluation: 01/23/18 Time of Evaluation: 10:45 - Subjective Subjective: Neurology progress note for Dr. Baldwin Patient seen and examined. Patient responsive to painful and auditory stimuli. Could not obtain ROS. Patient afebrile overnight. Objective - Vital Signs/Intake and Output Vital Signs (last 24 hours): Temp Pulse Resp BP Pulse Ox 99.1 F 72 18 147/62 99 01/23/18 08:00 01/23/18 10:00 01/23/18 10:00 01/23/18 10:48 01/23/18 10:00 Intake and Output: 01/23/18 01/23/18 06:59 18:59 Intake Total 2370 980 Output Total 1390 555 Balance 980 425 - Medications Medications: Current Medications Acetaminophen (Tylenol 650mg/20.3ml Solution Ud) 650 mg NG Q6 PRN PRN Reason: GIVE FOR TEMP. 100*F OR ABOVE Last Admin: 01/22/18 17:40 Dose: 650 mg Albuterol Sulfate (Albuterol 0.083% Inhal Lynne (2.5 Mg/3 Ml) Ud) 2.5 mg IH RQ6 [facility] Last Admin: 01/23/18 08:10 Dose: 2.5 mg Apixaban (Eliquis) 10 mg PO BID [facility] Stop: 01/30/18 18:01 Aspirin (Aspirin Chewable) 81 mg PO DAILY [facility] Last Admin: 01/23/18 10:49 Dose: 81 mg Carvedilol (Coreg) 12.5 mg PO BID [facility] Last Admin: 01/23/18 10:48 Dose: 12.5 mg Heparin Sodium (Porcine) (Heparin) 5,000 units SC Q8 [facility] Last Admin: 01/23/18 05:18 Dose: 5,000 units Hydralazine HCl (Apresoline) 50 mg PO Q8 [facility] Last Admin: 01/23/18 05:18 Dose: 50 mg Levetiracetam 1,000 mg/ Sodium (Chloride) 110 mls @ 440 mls/hr IVPB Q12H [facility] Last Admin: 01/23/18 10:49 Dose: 440 mls/hr Insulin Human Regular 100 unit (/ Sodium Chloride) 100 mls @ 2 mls/hr IV .Q24H [facility] Dextrose (Dextrose 5% In Water 1000 Ml) 1,000 mls @ 100 mls/hr IV .Q10H [facility] Insulin Aspart (Novolog) 0 unit SC Q4H [facility] PRN Reason: Protocol Last Admin: 01/23/18 08:19 Dose: 2 unit Insulin Glargine (Lantus) 20 unit SC [facility] Last Admin: 01/22/18 21:01 Dose: 20 u Pantoprazole Sodium (Protonix Susp) 40 mg PO 1000 [facility] Last Admin: 01/23/18 10:48 Dose: 40 mg Rosuvastatin Calcium (Crestor) 10 mg PO [facility] Last Admin: 01/22/18 21:00 Dose: 10 mg Sennosides (Senokot Tab) 8.6 mg PO DAILY [facility] Last Admin: 01/23/18 10:49 Dose: 8.6 mg - Labs Labs: 01/23/18 06:34 01/23/18 06:34 PT 10.6 SECONDS (9.7-12.2) 01/16/18 12:27 INR 0.9 01/16/18 12:27 APTT 33 SECONDS (21-34) 01/16/18 12:27 - Additional Findings Additional findings: - Constitutional Appears: Non-toxic, No Acute Distress - Head Exam Head Exam: ATRAUMATIC - ENT Exam ENT Exam: Mucous Membranes Moist - Respiratory Exam Respiratory Exam: Clear to Ausculation Bilateral. absent: Rales, Rhonchi, Wheezes Additional comments: On Mechanical ventilation PRVC - Cardiovascular Exam Cardiovascular Exam: REGULAR RHYTHM, +S1, +S2 - GI/Abdominal Exam GI & Abdominal Exam: Soft. absent: Distended, Tenderness - Neurological Exam Neurological Exam: absent: Alert, Awake, CN II-XII Intact, Oriented x3 Additional comments: Responsive to auditory and painful stimuli. Left pupil 3 mm non-reacting to light. Right pupil 2 mm reacting to light corneal and gag reflex intact - Psychiatric Exam Psychiatric exam: absent: Normal Affect, Normal Mood - Skin Skin Exam: Dry, Warm Assessment and Plan - Assessment and Plan (Free Text) Assessment: This is a 67 year old male with PMHx multiple CVA which are likely contributing to his new onset seizures. Plan: 1. New onset Seizures - EEG showed diffuse slowing is seen, suggestive of a diffuse abnormality of the brain. Some focal slowing was seen, suggestive of a focal abnormality. No seizures noted during the EEG recording. - Continue Keppra 1000 mg - Repeat CT of head showed no acute abnormalities - Prior insults are likely causing this new onset of seizures. - Patient has had recurrent fevers. Even though patient does have PNA on CXR, patient may benefit from LP to assess cause of fever and AMS. - Will speak to family at bedside
[2018-01-23] MEDS ORDERED: Insulin Human Regular 100 UNIT in Sodium Chloride 0.9% 99 ML IV SCH ×2 (11:30→12:26)
--- NOTE | 2018-01-23 12:02 | VASCLAB ---
PROCEDURE: Upper Extremity Venous Duplex Exam HISTORY: Fever, respiratory failure. PRIORS: None. TECHNIQUE: Bilateral upper extremity, internal jugular, subclavian, axillary, brachial, ulnar, radial, basilic and upper cephalic veins were evaluated. Flow was assessed with color Doppler, compressibility, assessment of phasic flow and augmentation response. Report prepared by ROCK Cervantes, RVT FINDINGS: RIGHT: 1. Internal Jugular: 1.1. Compressibility - Fully compressible: Thrombus - None : Flow - Phasic: Augmentation -Normal: Reflux - None. 2. Subclavian: 2.1. Compressibility - Incompressible: Thrombus - Acute : Flow - Absent : Augmentation -Normal: Reflux - None. 3. Axillary: 3.1. Compressibility - Fully compressible: Thrombus - None : Flow - Phasic: Augmentation -Normal: Reflux - None. 4. Brachial: 4.1. Compressibility - Fully compressible: Thrombus - None: Flow - Phasic: Augmentation -Normal: Reflux - None. 5. Ulnar: 5.1. Compressibility - Fully compressible: Thrombus - None: Flow - Phasic: Augmentation -Normal: Reflux - None. 6. Radial: 6.1. Compressibility - Fully compressible: Thrombus - None: Flow - Phasic: Augmentation - Normal: Reflux - None. 7. Cephalic: 7.1. Compressibility - Incompressible: Thrombus - Acute: Flow - Absent : Augmentation -Normal: Reflux - None. 8. Basilic: 8.1. Compressibility - Fully compressible: Thrombus - None: Flow - Phasic: Augmentation -Normal: Reflux - None. LEFT: 1. Internal Jugular: 1.1. Compressibility - Fully compressible: Thrombus - None : Flow - Phasic: Augmentation -Normal: Reflux - None. 2. Subclavian: 2.1. Compressibility - Fully compressible: Thrombus - None : Flow - Phasic: Augmentation -Normal: Reflux - None. 3. Axillary: 3.1. Compressibility - Fully compressible: Thrombus - None : Flow - Phasic: Augmentation -Normal: Reflux - None. 4. Brachial: 4.1. Compressibility - Fully compressible: Thrombus - None: Flow - Phasic: Augmentation -Normal: Reflux - None. 5. Ulnar: 5.1. Compressibility - Fully compressible: Thrombus - None: Flow - Phasic: Augmentation -Normal: Reflux - None. 6. Radial: 6.1. Compressibility - Fully compressible: Thrombus - None: Flow - Phasic: Augmentation - Normal: Reflux - None. 7. Cephalic: 7.1. Compressibility - Incompressible: Thrombus - Acute: Flow - Reduced : Augmentation -Normal: Reflux - None. 8. Basilic: 8.1. Compressibility - Fully compressible: Thrombus - None: Flow - Phasic: Augmentation -Normal: Reflux - None. OTHER FINDINGS: Findings were reported by the industrial technologist to Сергей Edgar, at 10:32 a.m. IMPRESSION: Right: Occlusive, acute deep vein thrombosis of the right subclavian vein, with severe reduction of the venous return. Superficial thrombophlebitis of the right cephalic vein, at upper arm and proximal forearm levels. Left: No evidence of deep vein thrombosis of the left upper extremity. Superficial thrombophlebitis of the left cephalic vein, at distal upper arm level.
--- NOTE | 2018-01-23 12:03 | VASCLAB ---
PROCEDURE: Lower Extremity Venous Duplex Exam. HISTORY: Fever, respiratory failure PRIORS: None. TECHNIQUE: Bilateral common femoral, femoral, popliteal and posterior tibial, peroneal and great saphenous veins were evaluated. Flow was assessed with color Doppler, compressibility, assessment of phasic flow and augmentation response. Report prepared by Davis Clemente, ROCK, RVT FINDINGS: RIGHT: 1. Common Femoral Vein: 1.1. Compressibility - Fully compressible: Thrombus - None : Flow - Phasic: Augmentation -Normal: Reflux - None. 2. Femoral Vein: 2.1. Compressibility - Fully compressible: Thrombus - None : Flow - Phasic: Augmentation -Normal: Reflux - None. 3. Popliteal Vein: 3.1. Compressibility - Fully compressible: Thrombus - None : Flow - Phasic: Augmentation -Normal: Reflux - None. 4. Posterior Tibial Vein: 4.1. Compressibility - Fully compressible: Thrombus - None: Flow - Phasic: Augmentation -Normal: Reflux - None. 5. Peroneal Vein: 5.1. Compressibility - Fully compressible: Thrombus - None: Flow - Phasic: Augmentation -Normal: Reflux - None. 6. Great Saphenous Vein: 6.1. Compressibility - Fully compressible: Thrombus - None: Flow - Phasic: Augmentation - Normal: Reflux - None. LEFT: 1. Common Femoral Vein: 1.1. Compressibility - Fully compressible: Thrombus - None: Flow - Phasic: Augmentation -Normal: Reflux - None. 2. Femoral Vein: 2.1. Compressibility - Fully compressible: Thrombus - None: Flow - Phasic: Augmentation -Normal: Reflux - None. 3. Popliteal Vein: 3.1. Compressibility - Fully compressible: Thrombus - None : Flow - Phasic: Augmentation -Normal: Reflux - None. 4. Posterior Tibial Vein: 4.1. Compressibility - Fully compressible: Thrombus - None: Flow - Phasic: Augmentation -Normal: Reflux - None. 5. Peroneal Vein: 5.1. Compressibility - Fully compressible: Thrombus - None: Flow - Phasic: Augmentation -Normal: Reflux - None. 6. Great Saphenous Vein: 6.1. Compressibility - Fully compressible: Thrombus - None: Flow - Phasic: Augmentation - Normal: Reflux - None. OTHER FINDINGS: Right: None significant. Left: None significant. IMPRESSION: Right: No evidence of deep or superficial vein thrombosis of the right lower extremity. Normal valve function noted of the right side. Left: No evidence of deep or superficial vein thrombosis of the left lower extremity. Normal valve function noted of the left side.
[2018-01-23] MEDS: Insulin Human Regular 100 UNIT in Sodium Chloride 0.9% 99 ML IV SCH (13:15)
--- NOTE | 2018-01-23 14:59 | CT ---
PROCEDURE: CT HEAD WITHOUT CONTRAST. HISTORY: Altered mental status, seizures COMPARISON: 01/20/2018. TECHNIQUE: Axial computed tomography images were obtained through the head/brain without intravenous contrast. Radiation dose: Total exam DLP = 1229.07 mGy-cm. This CT exam was performed using one or more of the following dose reduction techniques: Automated exposure control, adjustment of the mA and/or kV according to patient size, and/or use of iterative reconstruction technique. FINDINGS: HEMORRHAGE: No intracranial hemorrhage. BRAIN: Again seen is a large old infarction in the right occipital lobe. There are lacunar infarctions in the left caudate head and basal ganglia as well as thalamus. Again seen are moderate chronic microangiopathic changes. There is no mass, mass effect or abnormal extra-axial fluid collection. There are coarse atherosclerotic calcifications in the cavernous carotid arteries. VENTRICLES: There is moderate age-related global parenchymal volume loss and proportionate enlargement of the ventricles and cortical sulci. CALVARIUM: The skull base and calvarium are normal. PARANASAL SINUSES: There is a retention cyst/ polyp in the right maxillary sinus and polypoid mucosal thickening in the left maxillary and right sphenoid sinuses. The remaining included paranasal sinuses are clear. MASTOID AIR CELLS: Predominantly clear. OTHER FINDINGS: None. IMPRESSION: No acute intracranial abnormality. No other significant interval change.
--- NOTE | 2018-01-23 23:34 | CP.PCM.PN ---
Subjective - Date & Time of Evaluation Date of Evaluation: 01/23/18 Time of Evaluation: 18:00 - Subjective Subjective: Pt is feeling better, more alert, oxygenating well, no fever, nausea, vomiting Objective - Vital Signs/Intake and Output Vital Signs (last 24 hours): Temp Pulse Resp BP Pulse Ox 99.8 F H 75 24 138/108 H 99 01/23/18 20:00 01/23/18 23:00 01/23/18 23:00 01/23/18 22:29 01/23/18 23:00 Intake and Output: 01/23/18 01/24/18 18:59 06:59 Intake Total 2497 1012 Output Total 1565 630 Balance 932 382 - Medications Medications: Current Medications Acetaminophen (Tylenol 650mg/20.3ml Solution Ud) 650 mg NG Q6 PRN PRN Reason: GIVE FOR TEMP. 100*F OR ABOVE Last Admin: 01/22/18 17:40 Dose: 650 mg Albuterol Sulfate (Albuterol 0.083% Inhal Lynne (2.5 Mg/3 Ml) Ud) 2.5 mg IH RQ6 [facility] Last Admin: 01/23/18 19:28 Dose: 2.5 mg Apixaban (Eliquis) 10 mg PO BID [facility] Stop: 01/30/18 18:01 Last Admin: 01/23/18 17:07 Dose: 10 mg Aspirin (Aspirin Chewable) 81 mg PO DAILY [facility] Last Admin: 01/23/18 10:49 Dose: 81 mg Carvedilol (Coreg) 12.5 mg PO BID [facility] Last Admin: 01/23/18 17:07 Dose: 12.5 mg Heparin Sodium (Porcine) (Heparin) 5,000 units SC Q8 [facility] Last Admin: 01/23/18 15:08 Dose: Not Given Hydralazine HCl (Apresoline) 50 mg PO Q8 [facility] Last Admin: 01/23/18 21:22 Dose: 50 mg Levetiracetam 1,000 mg/ Sodium (Chloride) 110 mls @ 440 mls/hr IVPB Q12H [facility] Last Admin: 01/23/18 21:22 Dose: 440 mls/hr Dextrose (Dextrose 5% In Water 1000 Ml) 1,000 mls @ 100 mls/hr IV .Q10H [facility] Last Admin: 01/23/18 20:24 Dose: 100 mls/hr Insulin Human Regular 100 unit (/ Sodium Chloride) 100 mls @ 2 mls/hr IV .Q24H [facility] PRN Reason: Protocol Last Admin: 01/23/18 13:15 Dose: 3 units/hr, 3 mls/hr Insulin Aspart (Novolog) 0 unit SC Q4H [facility] PRN Reason: Protocol Last Admin: 01/23/18 08:19 Dose: 2 unit Insulin Glargine (Lantus) [address] [facility] Last Admin: 01/22/18 21:01 Dose: 20 u Pantoprazole Sodium (Protonix Susp) 40 mg PO 1000 [facility] Last Admin: 01/23/18 10:48 Dose: 40 mg Rosuvastatin Calcium (Crestor) 10 mg PO HS [facility] Last Admin: 01/23/18 21:23 Dose: 10 mg Sennosides (Senokot Tab) 8.6 mg PO DAILY [facility] Last Admin: 01/23/18 10:49 Dose: 8.6 mg - Labs Labs: 01/23/18 06:34 01/23/18 06:34 PT 10.6 SECONDS (9.7-12.2) 01/16/18 12:27 INR 0.9 01/16/18 12:27 APTT 33 SECONDS (21-34) 01/16/18 12:27 - Constitutional Appears: No Acute Distress - Head Exam Head Exam: ATRAUMATIC, NORMAL INSPECTION, NORMOCEPHALIC - Eye Exam Eye Exam: EOMI, Normal appearance, PERRL Pupil Exam: NORMAL ACCOMODATION, PERRL - Respiratory Exam Respiratory Exam: Decreased Breath Sounds, Rales, Rhonchi - Cardiovascular Exam Cardiovascular Exam: REGULAR RHYTHM, +S1, +S2. absent: Murmur - GI/Abdominal Exam GI & Abdominal Exam: Soft, Normal Bowel Sounds. absent: Tenderness Assessment and Plan (1) Status epilepticus Status: Acute (2) COPD (chronic obstructive pulmonary disease) Status: Acute (3) Congestive heart failure Status: Acute (4) Diabetes Status: Acute (5) Hypernatremia Status: Acute
[2018-01-24 00:46] LABS: BLOOD UREA NITROGEN 28 mg/dL (9-20); CALCIUM 7.7 mg/dl (8.6-10.4); GFR AFRICAN-AMERICAN > 60; GFR NON-AFRICAN AMERICAN > 60
[2018-01-24] MEDS: Albuterol 0.083% Inhal Sol (2.5 mg/3 mL) UD IH SCH ×4 (01:08→19:54)
--- NOTE | 2018-01-24 03:56 | PN ---
DATE: 01/23/2018 FOLLOWUP RENAL CONSULTATION LOCATION: ICU, bed 5. REQUESTED BY: Dr. Arash Rose. REASON FOR RENAL FOLLOWUP: Follow up with hyponatremia and respiratory failure, altered mental status. HISTORY OF PRESENT ILLNESS: Mr. Latif is a 67-year-old elderly male with history of longstanding hypertension, diabetes, hyperlipidemia, CVA, was found unresponsive on the bed and the patient was brought to the hospital. The patient was intubated electively for airway protection. The patient slightly opens eyes to verbal stimuli. Not in distress, on ventilator. The patient has also has a good urine output. PHYSICAL EXAMINATION: VITAL SIGNS: Blood pressure 138/66, pulse 73, respirations 19, temperature is 99.8 and T-max is 101. GENERAL: On physical exam, Mr. Latif is a 67-year-old elderly male on ventilator, not in distress. HEENT: Pupils normal and reactive to light and accommodation. Conjunctiva pink. Sclerae anicteric, on ventilator. Trachea is midline. LUNGS: Symmetric on both sides. Bilateral breath sounds present. Clear on auscultation. CVS: Bath at the fifth intercostal space, midclavicular line. S1, S2 audible. No murmur or gallop. ABDOMEN: Normal in appearance, soft, tympanic. No guarding. No splenomegaly. WEB SUPPORT ENGINEER: The patient is on ventilator. Tried to open eyes slightly to verbal stimuli. Motor system, moving all extremities spontaneously. EXTREMITIES: No cyanosis, no clubbing or edema. I's and O's in the last 24 hours, intake is 5290 and output is 2390. LABORATORY DATA: Include as follows as of 01/23/2018, WBC 7.1, hemoglobin 13.4, hematocrit is 40.8, platelets 118. ABG pH 7.43, pCO2 43, pO2 100 and bicarb is 27.6, saturation 98.8. Sodium 158, potassium 3.8, chloride 119, CO2 of 28, BUN 34, creatinine 1.4, glucose, glucose 163 and calcium 8.3, phosphorus 3.3, magnesium 2.6. Total bili 0.6, AST 54, ALT 63, alkaline phosphatase 65, total protein 6.3, albumin is 3. Procalcitonin 0.13. CT of the head as of 01/23/2018. IMPRESSION: 1. Acute intracranial abnormality. No significant interval change and duplex scan of the lower extremities as of 01/23/2018. 2. No a evidence of deep or superficial thrombosis of the right lower extremity, normal wall function noted on the right side. Left side, no evidence of deeper superficial vein thrombosis of the left lower extremity, normal wall function noted of the left side. Duplex scan of the upper extremity artery. 3. Right acute deep vein thrombosis of the right subclavian vein with severe reduction of the venous return, superficial thrombophlebitis of the right cephalic vein at upper arm and proximal forearm levels. Left, no evidence of deep vein thrombosis of the left upper extremity. Superficial thrombophlebitis of the left cephalic vein at the distal . Chest x-ray, no acute findings and stable position of the endotracheal tube. SUMMARY: Mr. Latif is a 67-year-old elderly male with history of hypertension, diabetes, hyperlipidemia and CVA, was admitted with altered mental status, status post intubation for airway protection with hypernatremia and uncontrolled diabetes with polyuria secondary to osmotic diuresis. Increased BUN and creatinine. 1. Prerenal azotemia. 2. No hypernatremia. Severe serum sodium is slowly improving. We will increase IV fluids to D5W 100 cc/hour and increase free water 400 mL every 4 hours and repeat BMP every 8 hours and case discussed with Dr. Michaelle Leroy, no indication for the DDAVP at this time as polyuria is secondary to osmotic diuresis secondary to uncontrolled diabetes and hypercatabolism and we will follow with you. Thank you for allowing me to participate in your patient's care Baldemar Ruiz MD
[2018-01-24 04:39] LABS: ARTERIAL BLOOD GAS HCO3 26.5 mmol/L (21-28); ARTERIAL BLOOD GAS HEMOGLOBIN 19.7 g/dL (11.7-17.4); ARTERIAL BLOOD GAS PCO2 45 mm/Hg (35-45); ARTERIAL BLOOD GAS PO2 73 mm/Hg (80-100); ARTERIAL BLOOD GAS TCO2 29.3 mmol/L (22-28)
[2018-01-24 06:27] LABS: BASO % 0.4 % (0.0-2.0); EOS # 0.2 K/uL (0.0-0.7); EOS % 3.4 % (0.0-4.0); HEMOGLOBIN 14.1 g/dL (12.0-18.0); LYMPH # 1.3 K/uL (1.0-4.3); MEAN CELL VOLUME 94.1 fL (80.0-94.0); MEAN CORPUSCULAR HEMOGLOBIN 31.2 pg (27.0-31.0); MEAN CORPUSCULAR HGB CONC 33.2 g/dL (33.0-37.0); MEAN PLATELET VOLUME 12.1 fL (7.2-11.7); MONO # 0.4 K/uL (0.0-0.8); MONO % 5.5 % (0.0-10.0); NEUT # 5.3 K/uL (1.8-7.0); NEUT % 72.7 % (50.0-75.0); NRBC % 0.1 % (0.0-2.0); RBC 4.51 Mil/uL (4.40-5.90); RED CELL DISTRIBUTION WIDTH 12.6 % (11.5-14.5); WHITE BLOOD COUNT 7.3 K/uL (4.8-10.8)
[2018-01-24 06:40] LABS: ALBUMIN 3.2 g/dL (3.5-5.0); ALT/SGPT 67 U/L (21-72); AST/SGOT 71 U/L (17-59); BLOOD UREA NITROGEN 31 mg/dL (9-20); CALCIUM 8.6 mg/dl (8.6-10.4); GFR AFRICAN-AMERICAN > 60; GFR NON-AFRICAN AMERICAN 55
--- NOTE | 2018-01-24 09:01 | RAD ---
HISTORY: vented COMPARISON: Chest radiograph dated 01/23/2018. FINDINGS: LUNGS: Low lung volumes. No active pulmonary disease. PLEURA: No significant pleural effusion identified, no pneumothorax apparent. CARDIOVASCULAR: Prior sternotomy with sternal wires and surgical clips redemonstrated. Atherosclerotic aortic calcifications. Cardiomediastinal silhouette stably enlarged. OSSEOUS STRUCTURES: No significant abnormalities. VISUALIZED UPPER ABDOMEN: Normal. OTHER FINDINGS: Endotracheal and enteric tubes, unchanged. IMPRESSION: Stable tubes and lines. No significant interval change.
[2018-01-24] MEDS: levETIRAcetam 1,000 MG in Sodium Chloride 0.9% 100 ML IVPB SCH ×2 (09:15→22:14)
[2018-01-24] MEDS: Pantoprazole 40 mg Susp UD PO SCH (09:16)
--- NOTE | 2018-01-24 09:45 | CP.PCM.PN ---
Subjective - Date & Time of Evaluation Date of Evaluation: 01/24/18 Time of Evaluation: 09:44 - Subjective Subjective: pt is seen and examined, follow up consult is dictated #[id number] Objective - Vital Signs/Intake and Output Vital Signs (last 24 hours): Temp Pulse Resp BP Pulse Ox 98.9 F 69 16 161/79 H 99 01/24/18 08:00 01/24/18 08:00 01/24/18 08:00 01/24/18 09:16 01/24/18 08:00 Intake and Output: 01/24/18 01/24/18 06:59 18:59 Intake Total 2946 706 Output Total 1590 200 Balance 1356 506 - Medications Medications: Current Medications Acetaminophen (Tylenol 650mg/20.3ml Solution Ud) 650 mg NG Q6 PRN PRN Reason: GIVE FOR TEMP. 100*F OR ABOVE Last Admin: 01/24/18 00:00 Dose: 650 mg Albuterol Sulfate (Albuterol 0.083% Inhal Lynne (2.5 Mg/3 Ml) Ud) 2.5 mg IH RQ6 [facility] Last Admin: 01/24/18 08:09 Dose: 2.5 mg Aspirin (Aspirin Chewable) 81 mg PO DAILY [facility] Last Admin: 01/24/18 09:15 Dose: 81 mg Carvedilol (Coreg) 12.5 mg PO BID [facility] Last Admin: 01/24/18 09:16 Dose: 12.5 mg Heparin Sodium (Porcine) (Heparin) 5,000 units SC Q8 [facility] Last Admin: 01/23/18 15:08 Dose: Not Given Hydralazine HCl (Apresoline) 50 mg PO Q8 [facility] Last Admin: 01/24/18 05:11 Dose: 50 mg Levetiracetam 1,000 mg/ Sodium (Chloride) 110 mls @ 440 mls/hr IVPB Q12H [facility] Last Admin: 01/24/18 09:15 Dose: 440 mls/hr Dextrose (Dextrose 5% In Water 1000 Ml) 1,000 mls @ 100 mls/hr IV .Q10H [facility] Last Admin: 01/24/18 06:56 Dose: 100 mls/hr Insulin Human Regular 100 unit (/ Sodium Chloride) 100 mls @ 2 mls/hr IV .Q24H [facility] PRN Reason: Protocol Last Titration: 01/24/18 03:08 Dose: 3 units/hr, 3 mls/hr Insulin Aspart (Novolog) 0 unit SC Q4H [facility] PRN Reason: Protocol Last Admin: 01/23/18 08:19 Dose: 2 unit Insulin Glargine (Lantus) 20 unit SC [facility] Last Admin: 01/22/18 21:01 Dose: 20 u Pantoprazole Sodium (Protonix Susp) 40 mg PO 1000 [facility] Last Admin: 01/24/18 09:16 Dose: 40 mg Rosuvastatin Calcium (Crestor) 10 mg PO [facility] Last Admin: 01/23/18 21:23 Dose: 10 mg Sennosides (Senokot Tab) 8.6 mg PO DAILY [facility] Last Admin: 01/24/18 09:16 Dose: 8.6 mg - Labs Labs: 01/24/18 06:19 01/24/18 06:17 PT 10.6 SECONDS (9.7-12.2) 01/16/18 12:27 INR 0.9 01/16/18 12:27 APTT 33 SECONDS (21-34) 01/16/18 12:27
--- NOTE | 2018-01-24 10:54 | CP.CCUPN ---
<AlejandroEugenien - Last Filed: 01/24/18 10:55> CCU Subjective - Physician Review Subjective (Free Text): 01/23/18 09:27 Patient seen and examined at bedside. Per nursing no acute events occurred overnight. 01/24/18 10:53 Patient seen and examined at bedside. Per nursing no acute events occurred overnight. Critical Care Time Spent (in minutes): 45 CCU Objective - Vital Signs / Intake & Output Vital Signs (Last 4 hours): Vital Signs Temp Pulse Resp BP Pulse Ox 01/24/18 10:00 71 16 98 01/24/18 09:29 70 17 139/61 98 01/24/18 09:16 161/79 H 01/24/18 09:00 76 18 98 01/24/18 08:29 78 21 161/69 H 98 01/24/18 08:00 98.9 F 69 16 99 01/24/18 07:30 66 16 130/58 L 97 01/24/18 07:00 68 18 97 Intake and Output (Last 8hrs): Intake & Output 01/23/18 01/24/18 01/24/18 22:59 06:59 14:59 Intake Total 1874 2087 1412 Output Total 1170 1110 375 Balance 900 719 9671 Weight 214 lb Intake: IV 61 Intake, IV Amount 824 826 412 Left Hand 800 800 400 Left Hand 2 24 26 12 Oral 400 Tube Feeding 250 400 200 Other 400 800 800 Output: Urine 1170 1110 375 Urethral (Stanley) 1170 1110 375 - Physical Exam Head: Positive for: Atraumatic, Normocephalic Pupils: Positive for: Other (corneal reflex) Mouth: Positive for: Other (trach in place) Neck: Positive for: Normal Range of Motion Respiratory/Chest: Positive for: Clear to Auscultation. Negative for: Respiratory Distress Cardiovascular: Positive for: Regular Rate and Rhythm, Normal S1, S2. Negative for: Tachycardic Abdomen: Positive for: Normal Bowel Sounds, Other (obese). Negative for: Tenderness, Distention, Peritoneal Signs Lower Extremity: Positive for: Normal Inspection Neurological: Positive for: Other (patient resists both upper extremities upon examination.) - Medications Active Medications: Active Medications Generic Name Dose Route Start Last Admin Trade Name Freq PRN Reason Stop Dose Admin Acetaminophen 650 mg 01/19/18 00:50 01/24/18 00:00 Tylenol 650mg/20.3ml Solution Ud NG 650 mg Q6 PRN Administration GIVE FOR TEMP. 100*F OR ABOVE Albuterol Sulfate 2.5 mg 01/16/18 14:45 01/24/18 08:09 Albuterol 0.083% Inhal Lynne (2.5 Mg/3 Ml) Ud IH 2.5 mg RQ6 SHINE Administration Aspirin 81 mg 01/17/18 10:00 01/24/18 09:15 Aspirin Chewable PO 81 mg DAILY SHINE Administration Carvedilol 12.5 mg 01/22/18 09:07 01/24/18 09:16 Coreg PO 12.5 mg BID SHINE Administration Heparin Sodium (Porcine) 5,000 units 01/17/18 14:00 01/23/18 15:08 Heparin SC Not Given Q8 SHINE Hydralazine HCl 50 mg 01/16/18 22:00 01/24/18 05:11 Apresoline PO 50 mg Q8 SHINE Administration Levetiracetam 1,000 mg/ Sodium 110 mls @ 440 mls/hr 01/22/18 10:00 01/24/18 09:15 Chloride IVPB 440 mls/hr Q12H SHINE Administration Dextrose 1,000 mls @ 100 mls/hr 01/23/18 11:18 01/24/18 06:56 Dextrose 5% In Water 1000 Ml IV 100 mls/hr .Q10H SHINE Administration Insulin Human Regular 100 unit 100 mls @ 2 mls/hr 01/23/18 13:45 01/24/18 03: 08 / Sodium Chloride IV 3 units/hr .Q24H SHINE 3 mls/hr Protocol Titration Insulin Aspart 0 unit 01/22/18 00:00 01/23/18 08:19 Novolog SC 2 unit Q4H SHINE Administration Protocol Insulin Glargine 20 unit 01/20/18 17:13 01/22/18 21:01 Lantus SC 20 u HS SHINE Administration Pantoprazole Sodium 40 mg 01/21/18 12:00 01/24/18 09:16 Protonix Susp PO 40 mg 1000 SHINE Administration Rosuvastatin Calcium 10 mg 01/16/18 22:00 01/23/18 21:23 Crestor PO 10 mg HS SHINE Administration Sennosides 8.6 mg 01/17/18 14:00 01/24/18 09:16 Senokot Tab PO 8.6 mg DAILY SHINE Administration - Patient Studies Lab Studies: Microbiology Studies 01/21/18 Unknown Gram Stain - Final Trachasp Sputum Culture - Final Staphylococcus Aureus 01/21/18 Unknown Blood Culture - Preliminary Blood-Venous NO GROWTH AFTER 48 HOURS 01/21/18 Unknown Blood Culture - Preliminary Blood-Venous NO GROWTH AFTER 48 HOURS 01/22/18 14:00 Gram Stain - Final Back Wound Culture - Preliminary Gram Positive Cocci Lab Studies 01/24/18 01/24/18 01/24/18 Range/Units 10:11 09:05 08:03 WBC (4.8-10.8) K/uL RBC (4.40-5.90) Mil/uL Hgb (12.0-18.0) g/dL Hct (35.0-51.0) % MCV (80.0-94.0) fL MCH (27.0-31.0) pg MCHC (33.0-37.0) g/dL RDW (11.5-14.5) % Plt Count (130-400) K/uL MPV (7.2-11.7) fL Neut % (Auto) (50.0-75.0) % Lymph % (Auto) (20.0-40.0) % Whiteside % (Auto) (0.0-10.0) % Eos % (Auto) (0.0-4.0) % Baso % (Auto) (0.0-2.0) % Neut # (Auto) (1.8-7.0) K/uL Lymph # (Auto) (1.0-4.3) K/uL Whiteside # (Auto) (0.0-0.8) K/uL Eos # (Auto) (0.0-0.7) K/uL Baso # (Auto) (0.0-0.2) K/uL Puncture Site pCO2 (35-45) mm/Hg pO2 (80-100) mm/Hg HCO3 (21-28) mmol/L ABG pH (7.35-7.45) ABG Total CO2 (22-28) mmol/L ABG O2 Saturation (95-98) % ABG Base Excess (-2.0-3.0) mmol/L ABG Hemoglobin (11.7-17.4) g/dL ABG Carboxyhemoglobin (0.5-1.5) % POC ABG HHb (Measured) (0.0-5.0) % ABG Methemoglobin (0.0-3.0) % Jamey Test A-a O2 Difference mm/Hg Respiratory Index Hgb O2 Saturation (95.0-98.0) % Vent Mode Mechanical Rate FiO2 % Tidal Volume PEEP Sodium (132-148) mmol/L Potassium (3.6-5.2) mmol/L Chloride (98-107) mmol/L Carbon Dioxide (22-30) mmol/L Anion Gap (10-20) BUN (9-20) mg/dL Creatinine (0.8-1.5) mg/dL Est GFR ( Amer) Est GFR (Non-Af Amer) POC Glucose (mg/dL) 212 H 229 H 215 H (65-110) mg/dL Random Glucose (75-110) mg/dL Calcium (8.6-10.4) mg/dl Total Bilirubin (0.2-1.3) mg/dL AST (17-59) U/L ALT (21-72) U/L Alkaline Phosphatase (38-126) U/L Total Protein (6.3-8.3) g/dL Albumin (3.5-5.0) g/dL Globulin (2.2-3.9) gm/dL Albumin/Globulin Ratio (1.0-2.1) Procalcitonin (0.19-0.49) NG/ML 01/24/18 01/24/18 01/24/18 Range/Units 06:53 06:19 06:17 WBC 7.3 (4.8-10.8) K/uL RBC 4.51 (4.40-5.90) Mil/uL Hgb 14.1 (12.0-18.0) g/dL Hct 42.5 (35.0-51.0) % MCV 94.1 H (80.0-94.0) fL MCH 31.2 H (27.0-31.0) pg MCHC 33.2 (33.0-37.0) g/dL RDW 12.6 (11.5-14.5) % Plt Count 127 L (130-400) K/uL MPV 12.1 H (7.2-11.7) fL Neut % (Auto) 72.7 (50.0-75.0) % Lymph % (Auto) 18.0 L (20.0-40.0) % Whiteside % (Auto) 5.5 (0.0-10.0) % Eos % (Auto) 3.4 (0.0-4.0) % Baso % (Auto) 0.4 (0.0-2.0) % Neut # (Auto) 5.3 (1.8-7.0) K/uL Lymph # (Auto) 1.3 (1.0-4.3) K/uL Whiteside # (Auto) 0.4 (0.0-0.8) K/uL Eos # (Auto) 0.2 (0.0-0.7) K/uL Baso # (Auto) 0.0 (0.0-0.2) K/uL Puncture Site pCO2 (35-45) mm/Hg pO2 (80-100) mm/Hg HCO3 (21-28) mmol/L ABG pH (7.35-7.45) ABG Total CO2 (22-28) mmol/L ABG O2 Saturation (95-98) % ABG Base Excess (-2.0-3.0) mmol/L ABG Hemoglobin (11.7-17.4) g/dL ABG Carboxyhemoglobin (0.5-1.5) % POC ABG HHb (Measured) (0.0-5.0) % ABG Methemoglobin (0.0-3.0) % Jamey Test A-a O2 Difference mm/Hg Respiratory Index Hgb O2 Saturation (95.0-98.0) % Vent Mode Mechanical Rate FiO2 % Tidal Volume PEEP Sodium 154 H (132-148) mmol/L Potassium 3.9 (3.6-5.2) mmol/L Chloride 114 H (98-107) mmol/L Carbon Dioxide 28 (22-30) mmol/L Anion Gap 15 (10-20) BUN 31 H (9-20) mg/dL Creatinine 1.3 (0.8-1.5) mg/dL Est GFR ( Amer) > 60 Est GFR (Non-Af Amer) 55 POC Glucose (mg/dL) 206 H (65-110) mg/dL Random Glucose 240 H (75-110) mg/dL Calcium 8.6 (8.6-10.4) mg/dl Total Bilirubin 0.5 (0.2-1.3) mg/dL AST 71 H D (17-59) U/L ALT 67 (21-72) U/L Alkaline Phosphatase 101 (38-126) U/L Total Protein 6.5 (6.3-8.3) g/dL Albumin 3.2 L (3.5-5.0) g/dL Globulin 3.3 (2.2-3.9) gm/dL Albumin/Globulin Ratio 1.0 (1.0-2.1) Procalcitonin (0.19-0.49) NG/ML 01/24/18 01/24/18 01/24/18 Range/Units 05:57 05:07 04:30 WBC (4.8-10.8) K/uL RBC (4.40-5.90) Mil/uL Hgb (12.0-18.0) g/dL Hct (35.0-51.0) % MCV (80.0-94.0) fL MCH (27.0-31.0) pg MCHC (33.0-37.0) g/dL RDW (11.5-14.5) % Plt Count (130-400) K/uL MPV (7.2-11.7) fL Neut % (Auto) (50.0-75.0) % Lymph % (Auto) (20.0-40.0) % Whiteside % (Auto) (0.0-10.0) % Eos % (Auto) (0.0-4.0) % Baso % (Auto) (0.0-2.0) % Neut # (Auto) (1.8-7.0) K/uL Lymph # (Auto) (1.0-4.3) K/uL Whiteside # (Auto) (0.0-0.8) K/uL Eos # (Auto) (0.0-0.7) K/uL Baso # (Auto) (0.0-0.2) K/uL Puncture Site Rb pCO2 45 (35-45) mm/Hg pO2 73 L (80-100) mm/Hg HCO3 26.5 (21-28) mmol/L ABG pH 7.40 (7.35-7.45) ABG Total CO2 29.3 H (22-28) mmol/L ABG O2 Saturation 96.0 (95-98) % ABG Base Excess 2.2 (-2.0-3.0) mmol/L ABG Hemoglobin 19.7 H (11.7-17.4) g/dL ABG Carboxyhemoglobin 1.9 H (0.5-1.5) % POC ABG HHb (Measured) 3.9 (0.0-5.0) % ABG Methemoglobin 0.9 (0.0-3.0) % Jamey Test Na A-a O2 Difference 156.0 mm/Hg Respiratory Index 2.1 Hgb O2 Saturation 93.3 L (95.0-98.0) % Vent Mode Prvc Mechanical Rate 16 FiO2 40.0 % Tidal Volume 500 PEEP 5 Sodium (132-148) mmol/L Potassium (3.6-5.2) mmol/L Chloride (98-107) mmol/L Carbon Dioxide (22-30) mmol/L Anion Gap (10-20) BUN (9-20) mg/dL Creatinine (0.8-1.5) mg/dL Est GFR ( Amer) Est GFR (Non-Af Amer) POC Glucose (mg/dL) 231 H 228 H (65-110) mg/dL Random Glucose (75-110) mg/dL Calcium (8.6-10.4) mg/dl Total Bilirubin (0.2-1.3) mg/dL AST (17-59) U/L ALT (21-72) U/L Alkaline Phosphatase (38-126) U/L Total Protein (6.3-8.3) g/dL Albumin (3.5-5.0) g/dL Globulin (2.2-3.9) gm/dL Albumin/Globulin Ratio (1.0-2.1) Procalcitonin (0.19-0.49) NG/ML 01/24/18 01/24/18 01/24/18 Range/Units 03:53 02:55 02:04 WBC (4.8-10.8) K/uL RBC (4.40-5.90) Mil/uL Hgb (12.0-18.0) g/dL Hct (35.0-51.0) % MCV (80.0-94.0) fL MCH (27.0-31.0) pg MCHC (33.0-37.0) g/dL RDW (11.5-14.5) % Plt Count (130-400) K/uL MPV (7.2-11.7) fL Neut % (Auto) (50.0-75.0) % Lymph % (Auto) (20.0-40.0) % Whiteside % (Auto) (0.0-10.0) % Eos % (Auto) (0.0-4.0) % Baso % (Auto) (0.0-2.0) % Neut # (Auto) (1.8-7.0) K/uL Lymph # (Auto) (1.0-4.3) K/uL Whiteside # (Auto) (0.0-0.8) K/uL Eos # (Auto) (0.0-0.7) K/uL Baso # (Auto) (0.0-0.2) K/uL Puncture Site pCO2 (35-45) mm/Hg pO2 (80-100) mm/Hg HCO3 (21-28) mmol/L ABG pH (7.35-7.45) ABG Total CO2 (22-28) mmol/L ABG O2 Saturation (95-98) % ABG Base Excess (-2.0-3.0) mmol/L ABG Hemoglobin (11.7-17.4) g/dL ABG Carboxyhemoglobin (0.5-1.5) % POC ABG HHb (Measured) (0.0-5.0) % ABG Methemoglobin (0.0-3.0) % Jamey Test A-a O2 Difference mm/Hg Respiratory Index Hgb O2 Saturation (95.0-98.0) % Vent Mode Mechanical Rate FiO2 % Tidal Volume PEEP Sodium (132-148) mmol/L Potassium (3.6-5.2) mmol/L Chloride (98-107) mmol/L Carbon Dioxide (22-30) mmol/L Anion Gap (10-20) BUN (9-20) mg/dL Creatinine (0.8-1.5) mg/dL Est GFR ( Amer) Est GFR (Non-Af Amer) POC Glucose (mg/dL) 206 H 228 H 266 H (65-110) mg/dL Random Glucose (75-110) mg/dL Calcium (8.6-10.4) mg/dl Total Bilirubin (0.2-1.3) mg/dL AST (17-59) U/L ALT (21-72) U/L Alkaline Phosphatase (38-126) U/L Total Protein (6.3-8.3) g/dL Albumin (3.5-5.0) g/dL Globulin (2.2-3.9) gm/dL Albumin/Globulin Ratio (1.0-2.1) Procalcitonin (0.19-0.49) NG/ML 01/24/18 01/24/18 01/23/18 Range/Units 01:07 00:20 23:38 WBC (4.8-10.8) K/uL RBC (4.40-5.90) Mil/uL Hgb (12.0-18.0) g/dL Hct (35.0-51.0) % MCV (80.0-94.0) fL MCH (27.0-31.0) pg MCHC (33.0-37.0) g/dL RDW (11.5-14.5) % Plt Count (130-400) K/uL MPV (7.2-11.7) fL Neut % (Auto) (50.0-75.0) % Lymph % (Auto) (20.0-40.0) % Whiteside % (Auto) (0.0-10.0) % Eos % (Auto) (0.0-4.0) % Baso % (Auto) (0.0-2.0) % Neut # (Auto) (1.8-7.0) K/uL Lymph # (Auto) (1.0-4.3) K/uL Whiteside # (Auto) (0.0-0.8) K/uL Eos # (Auto) (0.0-0.7) K/uL Baso # (Auto) (0.0-0.2) K/uL Puncture Site pCO2 (35-45) mm/Hg pO2 (80-100) mm/Hg HCO3 (21-28) mmol/L ABG pH (7.35-7.45) ABG Total CO2 (22-28) mmol/L ABG O2 Saturation (95-98) % ABG Base Excess (-2.0-3.0) mmol/L ABG Hemoglobin (11.7-17.4) g/dL ABG Carboxyhemoglobin (0.5-1.5) % POC ABG HHb (Measured) (0.0-5.0) % ABG Methemoglobin (0.0-3.0) % Jamey Test A-a O2 Difference mm/Hg Respiratory Index Hgb O2 Saturation (95.0-98.0) % Vent Mode Mechanical Rate FiO2 % Tidal Volume PEEP Sodium 149 H (132-148) mmol/L Potassium 4.0 (3.6-5.2) mmol/L Chloride 110 H (98-107) mmol/L Carbon Dioxide 26 (22-30) mmol/L Anion Gap 16 (10-20) BUN 28 H (9-20) mg/dL Creatinine 1.2 (0.8-1.5) mg/dL Est GFR ( Amer) > 60 Est GFR (Non-Af Amer) > 60 POC Glucose (mg/dL) 243 H 252 H (65-110) mg/dL Random Glucose 347 H (75-110) mg/dL Calcium 7.7 L (8.6-10.4) mg/dl Total Bilirubin (0.2-1.3) mg/dL AST (17-59) U/L ALT (21-72) U/L Alkaline Phosphatase (38-126) U/L Total Protein (6.3-8.3) g/dL Albumin (3.5-5.0) g/dL Globulin (2.2-3.9) gm/dL Albumin/Globulin Ratio (1.0-2.1) Procalcitonin (0.19-0.49) NG/ML 01/23/18 01/23/18 01/23/18 Range/Units 22:58 22:18 21:13 WBC (4.8-10.8) K/uL RBC (4.40-5.90) Mil/uL Hgb (12.0-18.0) g/dL Hct (35.0-51.0) % MCV (80.0-94.0) fL MCH (27.0-31.0) pg MCHC (33.0-37.0) g/dL RDW (11.5-14.5) % Plt Count (130-400) K/uL MPV (7.2-11.7) fL Neut % (Auto) (50.0-75.0) % Lymph % (Auto) (20.0-40.0) % Whiteside % (Auto) (0.0-10.0) % Eos % (Auto) (0.0-4.0) % Baso % (Auto) (0.0-2.0) % Neut # (Auto) (1.8-7.0) K/uL Lymph # (Auto) (1.0-4.3) K/uL Whiteside # (Auto) (0.0-0.8) K/uL Eos # (Auto) (0.0-0.7) K/uL Baso # (Auto) (0.0-0.2) K/uL Puncture Site pCO2 (35-45) mm/Hg pO2 (80-100) mm/Hg HCO3 (21-28) mmol/L ABG pH (7.35-7.45) ABG Total CO2 (22-28) mmol/L ABG O2 Saturation (95-98) % ABG Base Excess (-2.0-3.0) mmol/L ABG Hemoglobin (11.7-17.4) g/dL ABG Carboxyhemoglobin (0.5-1.5) % POC ABG HHb (Measured) (0.0-5.0) % ABG Methemoglobin (0.0-3.0) % Jamey Test A-a O2 Difference mm/Hg Respiratory Index Hgb O2 Saturation (95.0-98.0) % Vent Mode Mechanical Rate FiO2 % Tidal Volume PEEP Sodium (132-148) mmol/L Potassium (3.6-5.2) mmol/L Chloride (98-107) mmol/L Carbon Dioxide (22-30) mmol/L Anion Gap (10-20) BUN (9-20) mg/dL Creatinine (0.8-1.5) mg/dL Est GFR ( Amer) Est GFR (Non-Af Amer) POC Glucose (mg/dL) 205 H 235 H 210 H (65-110) mg/dL Random Glucose (75-110) mg/dL Calcium (8.6-10.4) mg/dl Total Bilirubin (0.2-1.3) mg/dL AST (17-59) U/L ALT (21-72) U/L Alkaline Phosphatase (38-126) U/L Total Protein (6.3-8.3) g/dL Albumin (3.5-5.0) g/dL Globulin (2.2-3.9) gm/dL Albumin/Globulin Ratio (1.0-2.1) Procalcitonin (0.19-0.49) NG/ML 01/23/18 01/23/18 01/23/18 Range/Units 19:54 18:54 17:52 WBC (4.8-10.8) K/uL RBC (4.40-5.90) Mil/uL Hgb (12.0-18.0) g/dL Hct (35.0-51.0) % MCV (80.0-94.0) fL MCH (27.0-31.0) pg MCHC (33.0-37.0) g/dL RDW (11.5-14.5) % Plt Count (130-400) K/uL MPV (7.2-11.7) fL Neut % (Auto) (50.0-75.0) % Lymph % (Auto) (20.0-40.0) % Whiteside % (Auto) (0.0-10.0) % Eos % (Auto) (0.0-4.0) % Baso % (Auto) (0.0-2.0) % Neut # (Auto) (1.8-7.0) K/uL Lymph # (Auto) (1.0-4.3) K/uL Whiteside # (Auto) (0.0-0.8) K/uL Eos # (Auto) (0.0-0.7) K/uL Baso # (Auto) (0.0-0.2) K/uL Puncture Site pCO2 (35-45) mm/Hg pO2 (80-100) mm/Hg HCO3 (21-28) mmol/L ABG pH (7.35-7.45) ABG Total CO2 (22-28) mmol/L ABG O2 Saturation (95-98) % ABG Base Excess (-2.0-3.0) mmol/L ABG Hemoglobin (11.7-17.4) g/dL ABG Carboxyhemoglobin (0.5-1.5) % POC ABG HHb (Measured) (0.0-5.0) % ABG Methemoglobin (0.0-3.0) % Jamey Test A-a O2 Difference mm/Hg Respiratory Index Hgb O2 Saturation (95.0-98.0) % Vent Mode Mechanical Rate FiO2 % Tidal Volume PEEP Sodium (132-148) mmol/L Potassium (3.6-5.2) mmol/L Chloride (98-107) mmol/L Carbon Dioxide (22-30) mmol/L Anion Gap (10-20) BUN (9-20) mg/dL Creatinine (0.8-1.5) mg/dL Est GFR ( Amer) Est GFR (Non-Af Amer) POC Glucose (mg/dL) 231 H 234 H 201 H (65-110) mg/dL Random Glucose (75-110) mg/dL Calcium (8.6-10.4) mg/dl Total Bilirubin (0.2-1.3) mg/dL AST (17-59) U/L ALT (21-72) U/L Alkaline Phosphatase (38-126) U/L Total Protein (6.3-8.3) g/dL Albumin (3.5-5.0) g/dL Globulin (2.2-3.9) gm/dL Albumin/Globulin Ratio (1.0-2.1) Procalcitonin (0.19-0.49) NG/ML 01/23/18 01/23/18 01/23/18 Range/Units 16:58 16:21 14:59 WBC (4.8-10.8) K/uL RBC (4.40-5.90) Mil/uL Hgb (12.0-18.0) g/dL Hct (35.0-51.0) % MCV (80.0-94.0) fL MCH (27.0-31.0) pg MCHC (33.0-37.0) g/dL RDW (11.5-14.5) % Plt Count (130-400) K/uL MPV (7.2-11.7) fL Neut % (Auto) (50.0-75.0) % Lymph % (Auto) (20.0-40.0) % Whiteside % (Auto) (0.0-10.0) % Eos % (Auto) (0.0-4.0) % Baso % (Auto) (0.0-2.0) % Neut # (Auto) (1.8-7.0) K/uL Lymph # (Auto) (1.0-4.3) K/uL Whiteside # (Auto) (0.0-0.8) K/uL Eos # (Auto) (0.0-0.7) K/uL Baso # (Auto) (0.0-0.2) K/uL Puncture Site pCO2 (35-45) mm/Hg pO2 (80-100) mm/Hg HCO3 (21-28) mmol/L ABG pH (7.35-7.45) ABG Total CO2 (22-28) mmol/L ABG O2 Saturation (95-98) % ABG Base Excess (-2.0-3.0) mmol/L ABG Hemoglobin (11.7-17.4) g/dL ABG Carboxyhemoglobin (0.5-1.5) % POC ABG HHb (Measured) (0.0-5.0) % ABG Methemoglobin (0.0-3.0) % Jamey Test A-a O2 Difference mm/Hg Respiratory Index Hgb O2 Saturation (95.0-98.0) % Vent Mode Mechanical Rate FiO2 % Tidal Volume PEEP Sodium (132-148) mmol/L Potassium (3.6-5.2) mmol/L Chloride (98-107) mmol/L Carbon Dioxide (22-30) mmol/L Anion Gap (10-20) BUN (9-20) mg/dL Creatinine (0.8-1.5) mg/dL Est GFR ( Amer) Est GFR (Non-Af Amer) POC Glucose (mg/dL) 215 H 220 H 231 H (65-110) mg/dL Random Glucose (75-110) mg/dL Calcium (8.6-10.4) mg/dl Total Bilirubin (0.2-1.3) mg/dL AST (17-59) U/L ALT (21-72) U/L Alkaline Phosphatase (38-126) U/L Total Protein (6.3-8.3) g/dL Albumin (3.5-5.0) g/dL Globulin (2.2-3.9) gm/dL Albumin/Globulin Ratio (1.0-2.1) Procalcitonin (0.19-0.49) NG/ML 01/23/18 01/23/18 01/23/18 Range/Units 14:22 13:10 11:53 WBC (4.8-10.8) K/uL RBC (4.40-5.90) Mil/uL Hgb (12.0-18.0) g/dL Hct (35.0-51.0) % MCV (80.0-94.0) fL MCH (27.0-31.0) pg MCHC (33.0-37.0) g/dL RDW (11.5-14.5) % Plt Count (130-400) K/uL MPV (7.2-11.7) fL Neut % (Auto) (50.0-75.0) % Lymph % (Auto) (20.0-40.0) % Whiteside % (Auto) (0.0-10.0) % Eos % (Auto) (0.0-4.0) % Baso % (Auto) (0.0-2.0) % Neut # (Auto) (1.8-7.0) K/uL Lymph # (Auto) (1.0-4.3) K/uL Whiteside # (Auto) (0.0-0.8) K/uL Eos # (Auto) (0.0-0.7) K/uL Baso # (Auto) (0.0-0.2) K/uL Puncture Site pCO2 (35-45) mm/Hg pO2 (80-100) mm/Hg HCO3 (21-28) mmol/L ABG pH (7.35-7.45) ABG Total CO2 (22-28) mmol/L ABG O2 Saturation (95-98) % ABG Base Excess (-2.0-3.0) mmol/L ABG Hemoglobin (11.7-17.4) g/dL ABG Carboxyhemoglobin (0.5-1.5) % POC ABG HHb (Measured) (0.0-5.0) % ABG Methemoglobin (0.0-3.0) % Jamey Test A-a O2 Difference mm/Hg Respiratory Index Hgb O2 Saturation (95.0-98.0) % Vent Mode Mechanical Rate FiO2 % Tidal Volume PEEP Sodium (132-148) mmol/L Potassium (3.6-5.2) mmol/L Chloride (98-107) mmol/L Carbon Dioxide (22-30) mmol/L Anion Gap (10-20) BUN (9-20) mg/dL Creatinine (0.8-1.5) mg/dL Est GFR ( Amer) Est GFR (Non-Af Amer) POC Glucose (mg/dL) 235 H 230 H 207 H (65-110) mg/dL Random Glucose (75-110) mg/dL Calcium (8.6-10.4) mg/dl Total Bilirubin (0.2-1.3) mg/dL AST (17-59) U/L ALT (21-72) U/L Alkaline Phosphatase (38-126) U/L Total Protein (6.3-8.3) g/dL Albumin (3.5-5.0) g/dL Globulin (2.2-3.9) gm/dL Albumin/Globulin Ratio (1.0-2.1) Procalcitonin (0.19-0.49) NG/ML 01/23/18 Range/Units 06:34 WBC (4.8-10.8) K/uL RBC (4.40-5.90) Mil/uL Hgb (12.0-18.0) g/dL Hct (35.0-51.0) % MCV (80.0-94.0) fL MCH (27.0-31.0) pg MCHC (33.0-37.0) g/dL RDW (11.5-14.5) % Plt Count (130-400) K/uL MPV (7.2-11.7) fL Neut % (Auto) (50.0-75.0) % Lymph % (Auto) (20.0-40.0) % Whiteside % (Auto) (0.0-10.0) % Eos % (Auto) (0.0-4.0) % Baso % (Auto) (0.0-2.0) % Neut # (Auto) (1.8-7.0) K/uL Lymph # (Auto) (1.0-4.3) K/uL Whiteside # (Auto) (0.0-0.8) K/uL Eos # (Auto) (0.0-0.7) K/uL Baso # (Auto) (0.0-0.2) K/uL Puncture Site pCO2 (35-45) mm/Hg pO2 (80-100) mm/Hg HCO3 (21-28) mmol/L ABG pH (7.35-7.45) ABG Total CO2 (22-28) mmol/L ABG O2 Saturation (95-98) % ABG Base Excess (-2.0-3.0) mmol/L ABG Hemoglobin (11.7-17.4) g/dL ABG Carboxyhemoglobin (0.5-1.5) % POC ABG HHb (Measured) (0.0-5.0) % ABG Methemoglobin (0.0-3.0) % Jamey Test A-a O2 Difference mm/Hg Respiratory Index Hgb O2 Saturation (95.0-98.0) % Vent Mode Mechanical Rate FiO2 % Tidal Volume PEEP Sodium (132-148) mmol/L Potassium (3.6-5.2) mmol/L Chloride (98-107) mmol/L Carbon Dioxide (22-30) mmol/L Anion Gap (10-20) BUN (9-20) mg/dL Creatinine (0.8-1.5) mg/dL Est GFR ( Amer) Est GFR (Non-Af Amer) POC Glucose (mg/dL) (65-110) mg/dL Random Glucose (75-110) mg/dL Calcium (8.6-10.4) mg/dl Total Bilirubin (0.2-1.3) mg/dL AST (17-59) U/L ALT (21-72) U/L Alkaline Phosphatase (38-126) U/L Total Protein (6.3-8.3) g/dL Albumin (3.5-5.0) g/dL Globulin (2.2-3.9) gm/dL Albumin/Globulin Ratio (1.0-2.1) Procalcitonin 0.13 L (0.19-0.49) NG/ML Laboratory Results - last 24 hr 01/23/18 01/23/18 01/23/18 06:34 11:53 13:10 WBC RBC Hgb Hct MCV MCH MCHC RDW Plt Count MPV Neut % (Auto) Lymph % (Auto) Whiteside % (Auto) Eos % (Auto) Baso % (Auto) Neut # (Auto) Lymph # (Auto) Whiteside # (Auto) Eos # (Auto) Baso # (Auto) Puncture Site pCO2 pO2 HCO3 ABG pH ABG Total CO2 ABG O2 Saturation ABG Base Excess ABG Hemoglobin ABG Carboxyhemoglobin POC ABG HHb (Measured) ABG Methemoglobin Jamey Test A-a O2 Difference Respiratory Index Hgb O2 Saturation Vent Mode Mechanical Rate FiO2 Tidal Volume PEEP Sodium Potassium Chloride Carbon Dioxide Anion Gap BUN Creatinine Est GFR ( Amer) Est GFR (Non-Af Amer) POC Glucose (mg/dL) 207 H 230 H Random Glucose Calcium Total Bilirubin AST ALT Alkaline Phosphatase Total Protein Albumin Globulin Albumin/Globulin Ratio Procalcitonin 0.13 L 01/23/18 01/23/18 01/23/18 14:22 14:59 16:21 WBC RBC Hgb Hct MCV MCH MCHC RDW Plt Count MPV Neut % (Auto) Lymph % (Auto) Whiteside % (Auto) Eos % (Auto) Baso % (Auto) Neut # (Auto) Lymph # (Auto) Whiteside # (Auto) Eos # (Auto) Baso # (Auto) Puncture Site pCO2 pO2 HCO3 ABG pH ABG Total CO2 ABG O2 Saturation ABG Base Excess ABG Hemoglobin ABG Carboxyhemoglobin POC ABG HHb (Measured) ABG Methemoglobin Jamey Test A-a O2 Difference Respiratory Index Hgb O2 Saturation Vent Mode Mechanical Rate FiO2 Tidal Volume PEEP Sodium Potassium Chloride Carbon Dioxide Anion Gap BUN Creatinine Est GFR ( Amer) Est GFR (Non-Af Amer) POC Glucose (mg/dL) 235 H 231 H 220 H Random Glucose Calcium Total Bilirubin AST ALT Alkaline Phosphatase Total Protein Albumin Globulin Albumin/Globulin Ratio Procalcitonin 01/23/18 01/23/18 01/23/18 16:58 17:52 18:54 WBC RBC Hgb Hct MCV MCH MCHC RDW Plt Count MPV Neut % (Auto) Lymph % (Auto) Whiteside % (Auto) Eos % (Auto) Baso % (Auto) Neut # (Auto) Lymph # (Auto) Whiteside # (Auto) Eos # (Auto) Baso # (Auto) Puncture Site pCO2 pO2 HCO3 ABG pH ABG Total CO2 ABG O2 Saturation ABG Base Excess ABG Hemoglobin ABG Carboxyhemoglobin POC ABG HHb (Measured) ABG Methemoglobin Jamey Test A-a O2 Difference Respiratory Index Hgb O2 Saturation Vent Mode Mechanical Rate FiO2 Tidal Volume PEEP Sodium Potassium Chloride Carbon Dioxide Anion Gap BUN Creatinine Est GFR ( Amer) Est GFR (Non-Af Amer) POC Glucose (mg/dL) 215 H 201 H 234 H Random Glucose Calcium Total Bilirubin AST ALT Alkaline Phosphatase Total Protein Albumin Globulin Albumin/Globulin Ratio Procalcitonin 01/23/18 01/23/18 01/23/18 19:54 21:13 22:18 WBC RBC Hgb Hct MCV MCH MCHC RDW Plt Count MPV Neut % (Auto) Lymph % (Auto) Whiteside % (Auto) Eos % (Auto) Baso % (Auto) Neut # (Auto) Lymph # (Auto) Whiteside # (Auto) Eos # (Auto) Baso # (Auto) Puncture Site pCO2 pO2 HCO3 ABG pH ABG Total CO2 ABG O2 Saturation ABG Base Excess ABG Hemoglobin ABG Carboxyhemoglobin POC ABG HHb (Measured) ABG Methemoglobin Jamey Test A-a O2 Difference Respiratory Index Hgb O2 Saturation Vent Mode Mechanical Rate FiO2 Tidal Volume PEEP Sodium Potassium Chloride Carbon Dioxide Anion Gap BUN Creatinine Est GFR ( Amer) Est GFR (Non-Af Amer) POC Glucose (mg/dL) 231 H 210 H 235 H Random Glucose Calcium Total Bilirubin AST ALT Alkaline Phosphatase Total Protein Albumin Globulin Albumin/Globulin Ratio Procalcitonin 01/23/18 01/23/18 01/24/18 22:58 23:38 00:20 WBC RBC Hgb Hct MCV MCH MCHC RDW Plt Count MPV Neut % (Auto) Lymph % (Auto) Whiteside % (Auto) Eos % (Auto) Baso % (Auto) Neut # (Auto) Lymph # (Auto) Whiteside # (Auto) Eos # (Auto) Baso # (Auto) Puncture Site pCO2 pO2 HCO3 ABG pH ABG Total CO2 ABG O2 Saturation ABG Base Excess ABG Hemoglobin ABG Carboxyhemoglobin POC ABG HHb (Measured) ABG Methemoglobin Jamey Test A-a O2 Difference Respiratory Index Hgb O2 Saturation Vent Mode Mechanical Rate FiO2 Tidal Volume PEEP Sodium 149 H Potassium 4.0 Chloride 110 H Carbon Dioxide 26 Anion Gap 16 BUN 28 H Creatinine 1.2 Est GFR ( Amer) > 60 Est GFR (Non-Af Amer) > 60 POC Glucose (mg/dL) 205 H 252 H Random Glucose 347 H Calcium 7.7 L Total Bilirubin AST ALT Alkaline Phosphatase Total Protein Albumin Globulin Albumin/Globulin Ratio Procalcitonin 01/24/18 01/24/18 01/24/18 01:07 02:04 02:55 WBC RBC Hgb Hct MCV MCH MCHC RDW Plt Count MPV Neut % (Auto) Lymph % (Auto) Whiteside % (Auto) Eos % (Auto) Baso % (Auto) Neut # (Auto) Lymph # (Auto) Whiteside # (Auto) Eos # (Auto) Baso # (Auto) Puncture Site pCO2 pO2 HCO3 ABG pH ABG Total CO2 ABG O2 Saturation ABG Base Excess ABG Hemoglobin ABG Carboxyhemoglobin POC ABG HHb (Measured) ABG Methemoglobin Jamey Test A-a O2 Difference Respiratory Index Hgb O2 Saturation Vent Mode Mechanical Rate FiO2 Tidal Volume PEEP Sodium Potassium Chloride Carbon Dioxide Anion Gap BUN Creatinine Est GFR ( Amer) Est GFR (Non-Af Amer) POC Glucose (mg/dL) 243 H 266 H 228 H Random Glucose Calcium Total Bilirubin AST ALT Alkaline Phosphatase Total Protein Albumin Globulin Albumin/Globulin Ratio Procalcitonin 01/24/18 01/24/18 01/24/18 03:53 04:30 05:07 WBC RBC Hgb Hct MCV MCH MCHC RDW Plt Count MPV Neut % (Auto) Lymph % (Auto) Whiteside % (Auto) Eos % (Auto) Baso % (Auto) Neut # (Auto) Lymph # (Auto) Whiteside # (Auto) Eos # (Auto) Baso # (Auto) Puncture Site Rb pCO2 45 pO2 73 L HCO3 26.5 ABG pH 7.40 ABG Total CO2 29.3 H ABG O2 Saturation 96.0 ABG Base Excess 2.2 ABG Hemoglobin 19.7 H ABG Carboxyhemoglobin 1.9 H POC ABG HHb (Measured) 3.9 ABG Methemoglobin 0.9 Jamey Test Na A-a O2 Difference 156.0 Respiratory Index 2.1 Hgb O2 Saturation 93.3 L Vent Mode Prvc Mechanical Rate 16 FiO2 40.0 Tidal Volume 500 PEEP 5 Sodium Potassium Chloride Carbon Dioxide Anion Gap BUN Creatinine Est GFR ( Amer) Est GFR (Non-Af Amer) POC Glucose (mg/dL) 206 H 228 H Random Glucose Calcium Total Bilirubin AST ALT Alkaline Phosphatase Total Protein Albumin Globulin Albumin/Globulin Ratio Procalcitonin 01/24/18 01/24/18 01/24/18 05:57 06:17 06:19 WBC 7.3 RBC 4.51 Hgb 14.1 Hct 42.5 MCV 94.1 H MCH 31.2 H MCHC 33.2 RDW 12.6 Plt Count 127 L MPV 12.1 H Neut % (Auto) 72.7 Lymph % (Auto) 18.0 L Whiteside % (Auto) 5.5 Eos % (Auto) 3.4 Baso % (Auto) 0.4 Neut # (Auto) 5.3 Lymph # (Auto) 1.3 Whiteside # (Auto) 0.4 Eos # (Auto) 0.2 Baso # (Auto) 0.0 Puncture Site pCO2 pO2 HCO3 ABG pH ABG Total CO2 ABG O2 Saturation ABG Base Excess ABG Hemoglobin ABG Carboxyhemoglobin POC ABG HHb (Measured) ABG Methemoglobin Jamey Test A-a O2 Difference Respiratory Index Hgb O2 Saturation Vent Mode Mechanical Rate FiO2 Tidal Volume PEEP Sodium 154 H Potassium 3.9 Chloride 114 H Carbon Dioxide 28 Anion Gap 15 BUN 31 H Creatinine 1.3 Est GFR ( Amer) > 60 Est GFR (Non-Af Amer) 55 POC Glucose (mg/dL) 231 H Random Glucose 240 H Calcium 8.6 Total Bilirubin 0.5 AST 71 H D ALT 67 Alkaline Phosphatase 101 Total Protein 6.5 Albumin 3.2 L Globulin 3.3 Albumin/Globulin Ratio 1.0 Procalcitonin 01/24/18 01/24/18 01/24/18 06:53 08:03 09:05 WBC RBC Hgb Hct MCV MCH MCHC RDW Plt Count MPV Neut % (Auto) Lymph % (Auto) Whiteside % (Auto) Eos % (Auto) Baso % (Auto) Neut # (Auto) Lymph # (Auto) Whiteside # (Auto) Eos # (Auto) Baso # (Auto) Puncture Site pCO2 pO2 HCO3 ABG pH ABG Total CO2 ABG O2 Saturation ABG Base Excess ABG Hemoglobin ABG Carboxyhemoglobin POC ABG HHb (Measured) ABG Methemoglobin Jamey Test A-a O2 Difference Respiratory Index Hgb O2 Saturation Vent Mode Mechanical Rate FiO2 Tidal Volume PEEP Sodium Potassium Chloride Carbon Dioxide Anion Gap BUN Creatinine Est GFR ( Amer) Est GFR (Non-Af Amer) POC Glucose (mg/dL) 206 H 215 H 229 H Random Glucose Calcium Total Bilirubin AST ALT Alkaline Phosphatase Total Protein Albumin Globulin Albumin/Globulin Ratio Procalcitonin 01/24/18 10:11 WBC RBC Hgb Hct MCV MCH MCHC RDW Plt Count MPV Neut % (Auto) Lymph % (Auto) Whiteside % (Auto) Eos % (Auto) Baso % (Auto) Neut # (Auto) Lymph # (Auto) Whiteside # (Auto) Eos # (Auto) Baso # (Auto) Puncture Site pCO2 pO2 HCO3 ABG pH ABG Total CO2 ABG O2 Saturation ABG Base Excess ABG Hemoglobin ABG Carboxyhemoglobin POC ABG HHb (Measured) ABG Methemoglobin Jamey Test A-a O2 Difference Respiratory Index Hgb O2 Saturation Vent Mode Mechanical Rate FiO2 Tidal Volume PEEP Sodium Potassium Chloride Carbon Dioxide Anion Gap BUN Creatinine Est GFR ( Amer) Est GFR (Non-Af Amer) POC Glucose (mg/dL) 212 H Random Glucose Calcium Total Bilirubin AST ALT Alkaline Phosphatase Total Protein Albumin Globulin Albumin/Globulin Ratio Procalcitonin Fingerstick Blood Sugar Results: 206 Review of Systems - Review of Systems Systems not reviewed;Unavailable: Acuity of Condition Assessment/Plan - Assessment and Plan (Free Text) Assessment: 67 year old male with a past medical history of type 2 dm, hypertension, cva, s/ p cabg (8yrs ago), hyperlipidemia who was admitted to the ICU after being found unresponsive by daughter. Patient subsequently had a witnessed seizure while in the hospital and was transferred to the ICU for further monitoring . Plan: Neurology:New onset Seizures - EEG showed diffuse slowing is seen, suggestive of a diffuse abnormality of the brain. Some focal slowing was seen, suggestive of a focal abnormality. No seizures noted during the EEG recording. - Continue Keppra 1000 mg - Repeat CT of head showed no acute abnormalities -Neurology following. -Expected to get portable vent to have MRI done today in house. Hematology:Electrolyte imbalances -Elevated sodium. Will continue to monitor with serial CMP's. Cardiovascular: Hypertension -continue carvedilol and hydralazine Hematology: DVT of Right subclavian vein -Eliquis 10mg BID X 7 days. Next 7 Days 5mg BID X 7 DAYS. Renal: Hypernatremia -DDAVP 2mc q12 started -Will continue to monitor with serial CMP's. Endocrinology:h/o Diabetes -Glargine 20 units qhs -SISS for coverage. GI:Tube feeding Continue Glucerna@50 ID no acute issues, stopping abx. GI proph - protonix DVT proph - heparin sq <Ford Mims - Last Filed: 01/24/18 16:06> CCU Subjective - Physician Review Critical Care Time Spent (in minutes): 30 CCU Objective - Vital Signs / Intake & Output Vital Signs (Last 4 hours): Vital Signs Pulse Resp BP Pulse Ox 01/24/18 13:30 68 19 154/69 H 97 01/24/18 13:00 67 17 97 01/24/18 12:29 67 20 138/61 98 Intake and Output (Last 8hrs): Intake & Output 01/24/18 01/24/18 01/24/18 06:59 14:59 22:59 Intake Total 2087 1974 Output Total 1110 700 Balance 977 1274 Weight 214 lb Intake: IV 61 3 Intake, IV Amount 826 721 Left Hand 800 700 Left Hand 2 26 21 Tube Feeding 400 350 Other 800 900 Output: Urine 1110 700 Urethral (Stanley) 1110 700 - Medications Active Medications: Active Medications Generic Name Dose Route Start Last Admin Trade Name Freq PRN Reason Stop Dose Admin Acetaminophen 650 mg 01/19/18 00:50 01/24/18 00:00 Tylenol 650mg/20.3ml Solution Ud NG 650 mg Q6 PRN Administration GIVE FOR TEMP. 100*F OR ABOVE Albuterol Sulfate 2.5 mg 01/16/18 14:45 01/24/18 08:09 Albuterol 0.083% Inhal Lynen (2.5 Mg/3 Ml) Ud IH 2.5 mg RQ6 SHINE Administration Aspirin 81 mg 01/17/18 10:00 01/24/18 09:15 Aspirin Chewable PO 81 mg DAILY [facility] Administration Carvedilol 12.5 mg 01/22/18 09:07 01/24/18 09:16 Coreg PO 12.5 mg BID SHINE Administration Heparin Sodium (Porcine) 5,000 units 01/17/18 14:00 01/23/18 15:08 Heparin SC Not Given Q8 [facility] Hydralazine HCl 50 mg 01/16/18 22:00 01/24/18 13:27 Apresoline PO 50 mg Q8 [facility] Administration Levetiracetam 1,000 mg/ Sodium 110 mls @ 440 mls/hr 01/22/18 10:00 01/24/18 09:15 Chloride IVPB 440 mls/hr Q12H [facility] Administration Dextrose 1,000 mls @ 100 mls/hr 01/23/18 11:18 01/24/18 06:56 Dextrose 5% In Water 1000 Ml IV 100 mls/hr .Q10H [facility] Administration Insulin Human Regular 100 unit 100 mls @ 2 mls/hr 01/23/18 13:45 01/24/18 13: 31 / Sodium Chloride IV 3 units/hr .Q24H [facility] 3 mls/hr Protocol Administration Insulin Aspart 0 unit 01/22/18 00:00 01/23/18 08:19 Novolog SC 2 unit Q4H [facility] Administration Protocol Insulin Glargine 20 unit 01/20/18 17:13 01/22/18 21:01 Lantus SC 20 u HS [facility] Administration Pantoprazole Sodium 40 mg 01/21/18 12:00 01/24/18 09:16 Protonix Susp PO 40 mg 1000 [facility] Administration Rosuvastatin Calcium 10 mg 01/16/18 22:00 01/23/18 21:23 Crestor PO 10 mg HS [facility] Administration Sennosides 8.6 mg 01/17/18 14:00 01/24/18 09:16 Senokot Tab PO 8.6 mg DAILY [facility] Administration - Patient Studies Lab Studies: Microbiology Studies 01/22/18 14:00 Gram Stain - Final Back Wound Culture - Preliminary Gram Positive Cocci Coagulase Neg Staphylococcus 01/21/18 Unknown Gram Stain - Final Trachasp Sputum Culture - Final Staphylococcus Aureus 01/21/18 Unknown Blood Culture - Preliminary Blood-Venous NO GROWTH AFTER 48 HOURS 01/21/18 Unknown Blood Culture - Preliminary Blood-Venous NO GROWTH AFTER 48 HOURS Lab Studies 01/24/18 01/24/18 01/24/18 Range/Units 14:51 13:49 12:48 WBC (4.8-10.8) K/uL RBC (4.40-5.90) Mil/uL Hgb (12.0-18.0) g/dL Hct (35.0-51.0) % MCV (80.0-94.0) fL MCH (27.0-31.0) pg MCHC (33.0-37.0) g/dL RDW (11.5-14.5) % Plt Count (130-400) K/uL MPV (7.2-11.7) fL Neut % (Auto) (50.0-75.0) % Lymph % (Auto) (20.0-40.0) % Whiteside % (Auto) (0.0-10.0) % Eos % (Auto) (0.0-4.0) % Baso % (Auto) (0.0-2.0) % Neut # (Auto) (1.8-7.0) K/uL Lymph # (Auto) (1.0-4.3) K/uL Whiteside # (Auto) (0.0-0.8) K/uL Eos # (Auto) (0.0-0.7) K/uL Baso # (Auto) (0.0-0.2) K/uL Puncture Site pCO2 (35-45) mm/Hg pO2 (80-100) mm/Hg HCO3 (21-28) mmol/L ABG pH (7.35-7.45) ABG Total CO2 (22-28) mmol/L ABG O2 Saturation (95-98) % ABG Base Excess (-2.0-3.0) mmol/L ABG Hemoglobin (11.7-17.4) g/dL ABG Carboxyhemoglobin (0.5-1.5) % POC ABG HHb (Measured) (0.0-5.0) % ABG Methemoglobin (0.0-3.0) % Jamey Test A-a O2 Difference mm/Hg Respiratory Index Hgb O2 Saturation (95.0-98.0) % Vent Mode Mechanical Rate FiO2 % Tidal Volume PEEP Sodium (132-148) mmol/L Potassium (3.6-5.2) mmol/L Chloride (98-107) mmol/L Carbon Dioxide (22-30) mmol/L Anion Gap (10-20) BUN (9-20) mg/dL Creatinine (0.8-1.5) mg/dL Est GFR ( Amer) Est GFR (Non-Af Amer) POC Glucose (mg/dL) 226 H 223 H 227 H (65-110) mg/dL Random Glucose (75-110) mg/dL Calcium (8.6-10.4) mg/dl Total Bilirubin (0.2-1.3) mg/dL AST (17-59) U/L ALT (21-72) U/L Alkaline Phosphatase (38-126) U/L Total Protein (6.3-8.3) g/dL Albumin (3.5-5.0) g/dL Globulin (2.2-3.9) gm/dL Albumin/Globulin Ratio (1.0-2.1) 01/24/18 01/24/18 01/24/18 Range/Units 11:45 11:04 10:11 WBC (4.8-10.8) K/uL RBC (4.40-5.90) Mil/uL Hgb (12.0-18.0) g/dL Hct (35.0-51.0) % MCV (80.0-94.0) fL MCH (27.0-31.0) pg MCHC (33.0-37.0) g/dL RDW (11.5-14.5) % Plt Count (130-400) K/uL MPV (7.2-11.7) fL Neut % (Auto) (50.0-75.0) % Lymph % (Auto) (20.0-40.0) % Whiteside % (Auto) (0.0-10.0) % Eos % (Auto) (0.0-4.0) % Baso % (Auto) (0.0-2.0) % Neut # (Auto) (1.8-7.0) K/uL Lymph # (Auto) (1.0-4.3) K/uL Whiteside # (Auto) (0.0-0.8) K/uL Eos # (Auto) (0.0-0.7) K/uL Baso # (Auto) (0.0-0.2) K/uL Puncture Site pCO2 (35-45) mm/Hg pO2 (80-100) mm/Hg HCO3 (21-28) mmol/L ABG pH (7.35-7.45) ABG Total CO2 (22-28) mmol/L ABG O2 Saturation (95-98) % ABG Base Excess (-2.0-3.0) mmol/L ABG Hemoglobin (11.7-17.4) g/dL ABG Carboxyhemoglobin (0.5-1.5) % POC ABG HHb (Measured) (0.0-5.0) % ABG Methemoglobin (0.0-3.0) % Jamey Test A-a O2 Difference mm/Hg Respiratory Index Hgb O2 Saturation (95.0-98.0) % Vent Mode Mechanical Rate FiO2 % Tidal Volume PEEP Sodium (132-148) mmol/L Potassium (3.6-5.2) mmol/L Chloride (98-107) mmol/L Carbon Dioxide (22-30) mmol/L Anion Gap (10-20) BUN (9-20) mg/dL Creatinine (0.8-1.5) mg/dL Est GFR ( Amer) Est GFR (Non-Af Amer) POC Glucose (mg/dL) 242 H 218 H 212 H (65-110) mg/dL Random Glucose (75-110) mg/dL Calcium (8.6-10.4) mg/dl Total Bilirubin (0.2-1.3) mg/dL AST (17-59) U/L ALT (21-72) U/L Alkaline Phosphatase (38-126) U/L Total Protein (6.3-8.3) g/dL Albumin (3.5-5.0) g/dL Globulin (2.2-3.9) gm/dL Albumin/Globulin Ratio (1.0-2.1) 01/24/18 01/24/18 01/24/18 Range/Units 09:05 08:03 06:53 WBC (4.8-10.8) K/uL RBC (4.40-5.90) Mil/uL Hgb (12.0-18.0) g/dL Hct (35.0-51.0) % MCV (80.0-94.0) fL MCH (27.0-31.0) pg MCHC (33.0-37.0) g/dL RDW (11.5-14.5) % Plt Count (130-400) K/uL MPV (7.2-11.7) fL Neut % (Auto) (50.0-75.0) % Lymph % (Auto) (20.0-40.0) % Whiteside % (Auto) (0.0-10.0) % Eos % (Auto) (0.0-4.0) % Baso % (Auto) (0.0-2.0) % Neut # (Auto) (1.8-7.0) K/uL Lymph # (Auto) (1.0-4.3) K/uL Whiteside # (Auto) (0.0-0.8) K/uL Eos # (Auto) (0.0-0.7) K/uL Baso # (Auto) (0.0-0.2) K/uL Puncture Site pCO2 (35-45) mm/Hg pO2 (80-100) mm/Hg HCO3 (21-28) mmol/L ABG pH (7.35-7.45) ABG Total CO2 (22-28) mmol/L ABG O2 Saturation (95-98) % ABG Base Excess (-2.0-3.0) mmol/L ABG Hemoglobin (11.7-17.4) g/dL ABG Carboxyhemoglobin (0.5-1.5) % POC ABG HHb (Measured) (0.0-5.0) % ABG Methemoglobin (0.0-3.0) % Jamey Test A-a O2 Difference mm/Hg Respiratory Index Hgb O2 Saturation (95.0-98.0) % Vent Mode Mechanical Rate FiO2 % Tidal Volume PEEP Sodium (132-148) mmol/L Potassium (3.6-5.2) mmol/L Chloride (98-107) mmol/L Carbon Dioxide (22-30) mmol/L Anion Gap (10-20) BUN (9-20) mg/dL Creatinine (0.8-1.5) mg/dL Est GFR ( Amer) Est GFR (Non-Af Amer) POC Glucose (mg/dL) 229 H 215 H 206 H (65-110) mg/dL Random Glucose (75-110) mg/dL Calcium (8.6-10.4) mg/dl Total Bilirubin (0.2-1.3) mg/dL AST (17-59) U/L ALT (21-72) U/L Alkaline Phosphatase (38-126) U/L Total Protein (6.3-8.3) g/dL Albumin (3.5-5.0) g/dL Globulin (2.2-3.9) gm/dL Albumin/Globulin Ratio (1.0-2.1) 01/24/18 01/24/18 01/24/18 Range/Units 06:19 06:17 05:57 WBC 7.3 (4.8-10.8) K/uL RBC 4.51 (4.40-5.90) Mil/uL Hgb 14.1 (12.0-18.0) g/dL Hct 42.5 (35.0-51.0) % MCV 94.1 H (80.0-94.0) fL MCH 31.2 H (27.0-31.0) pg MCHC 33.2 (33.0-37.0) g/dL RDW 12.6 (11.5-14.5) % Plt Count 127 L (130-400) K/uL MPV 12.1 H (7.2-11.7) fL Neut % (Auto) 72.7 (50.0-75.0) % Lymph % (Auto) 18.0 L (20.0-40.0) % Whiteside % (Auto) 5.5 (0.0-10.0) % Eos % (Auto) 3.4 (0.0-4.0) % Baso % (Auto) 0.4 (0.0-2.0) % Neut # (Auto) 5.3 (1.8-7.0) K/uL Lymph # (Auto) 1.3 (1.0-4.3) K/uL Whiteside # (Auto) 0.4 (0.0-0.8) K/uL Eos # (Auto) 0.2 (0.0-0.7) K/uL Baso # (Auto) 0.0 (0.0-0.2) K/uL Puncture Site pCO2 (35-45) mm/Hg pO2 (80-100) mm/Hg HCO3 (21-28) mmol/L ABG pH (7.35-7.45) ABG Total CO2 (22-28) mmol/L ABG O2 Saturation (95-98) % ABG Base Excess (-2.0-3.0) mmol/L ABG Hemoglobin (11.7-17.4) g/dL ABG Carboxyhemoglobin (0.5-1.5) % POC ABG HHb (Measured) (0.0-5.0) % ABG Methemoglobin (0.0-3.0) % Jamey Test A-a O2 Difference mm/Hg Respiratory Index Hgb O2 Saturation (95.0-98.0) % Vent Mode Mechanical Rate FiO2 % Tidal Volume PEEP Sodium 154 H (132-148) mmol/L Potassium 3.9 (3.6-5.2) mmol/L Chloride 114 H (98-107) mmol/L Carbon Dioxide 28 (22-30) mmol/L Anion Gap 15 (10-20) BUN 31 H (9-20) mg/dL Creatinine 1.3 (0.8-1.5) mg/dL Est GFR ( Amer) > 60 Est GFR (Non-Af Amer) 55 POC Glucose (mg/dL) 231 H (65-110) mg/dL Random Glucose 240 H (75-110) mg/dL Calcium 8.6 (8.6-10.4) mg/dl Total Bilirubin 0.5 (0.2-1.3) mg/dL AST 71 H D (17-59) U/L ALT 67 (21-72) U/L Alkaline Phosphatase 101 (38-126) U/L Total Protein 6.5 (6.3-8.3) g/dL Albumin 3.2 L (3.5-5.0) g/dL Globulin 3.3 (2.2-3.9) gm/dL Albumin/Globulin Ratio 1.0 (1.0-2.1) 01/24/18 01/24/18 01/24/18 Range/Units 05:07 04:30 03:53 WBC (4.8-10.8) K/uL RBC (4.40-5.90) Mil/uL Hgb (12.0-18.0) g/dL Hct (35.0-51.0) % MCV (80.0-94.0) fL MCH (27.0-31.0) pg MCHC (33.0-37.0) g/dL RDW (11.5-14.5) % Plt Count (130-400) K/uL MPV (7.2-11.7) fL Neut % (Auto) (50.0-75.0) % Lymph % (Auto) (20.0-40.0) % Whiteside % (Auto) (0.0-10.0) % Eos % (Auto) (0.0-4.0) % Baso % (Auto) (0.0-2.0) % Neut # (Auto) (1.8-7.0) K/uL Lymph # (Auto) (1.0-4.3) K/uL Whiteside # (Auto) (0.0-0.8) K/uL Eos # (Auto) (0.0-0.7) K/uL Baso # (Auto) (0.0-0.2) K/uL Puncture Site Rb pCO2 45 (35-45) mm/Hg pO2 73 L (80-100) mm/Hg HCO3 26.5 (21-28) mmol/L ABG pH 7.40 (7.35-7.45) ABG Total CO2 29.3 H (22-28) mmol/L ABG O2 Saturation 96.0 (95-98) % ABG Base Excess 2.2 (-2.0-3.0) mmol/L ABG Hemoglobin 19.7 H (11.7-17.4) g/dL ABG Carboxyhemoglobin 1.9 H (0.5-1.5) % POC ABG HHb (Measured) 3.9 (0.0-5.0) % ABG Methemoglobin 0.9 (0.0-3.0) % Jamey Test Na A-a O2 Difference 156.0 mm/Hg Respiratory Index 2.1 Hgb O2 Saturation 93.3 L (95.0-98.0) % Vent Mode Prvc Mechanical Rate 16 FiO2 40.0 % Tidal Volume 500 PEEP 5 Sodium (132-148) mmol/L Potassium (3.6-5.2) mmol/L Chloride (98-107) mmol/L Carbon Dioxide (22-30) mmol/L Anion Gap (10-20) BUN (9-20) mg/dL Creatinine (0.8-1.5) mg/dL Est GFR ( Amer) Est GFR (Non-Af Amer) POC Glucose (mg/dL) 228 H 206 H (65-110) mg/dL Random Glucose (75-110) mg/dL Calcium (8.6-10.4) mg/dl Total Bilirubin (0.2-1.3) mg/dL AST (17-59) U/L ALT (21-72) U/L Alkaline Phosphatase (38-126) U/L Total Protein (6.3-8.3) g/dL Albumin (3.5-5.0) g/dL Globulin (2.2-3.9) gm/dL Albumin/Globulin Ratio (1.0-2.1) 01/24/18 01/24/18 01/24/18 Range/Units 02:55 02:04 01:07 WBC (4.8-10.8) K/uL RBC (4.40-5.90) Mil/uL Hgb (12.0-18.0) g/dL Hct (35.0-51.0) % MCV (80.0-94.0) fL MCH (27.0-31.0) pg MCHC (33.0-37.0) g/dL RDW (11.5-14.5) % Plt Count (130-400) K/uL MPV (7.2-11.7) fL Neut % (Auto) (50.0-75.0) % Lymph % (Auto) (20.0-40.0) % Whiteside % (Auto) (0.0-10.0) % Eos % (Auto) (0.0-4.0) % Baso % (Auto) (0.0-2.0) % Neut # (Auto) (1.8-7.0) K/uL Lymph # (Auto) (1.0-4.3) K/uL Whiteside # (Auto) (0.0-0.8) K/uL Eos # (Auto) (0.0-0.7) K/uL Baso # (Auto) (0.0-0.2) K/uL Puncture Site pCO2 (35-45) mm/Hg pO2 (80-100) mm/Hg HCO3 (21-28) mmol/L ABG pH (7.35-7.45) ABG Total CO2 (22-28) mmol/L ABG O2 Saturation (95-98) % ABG Base Excess (-2.0-3.0) mmol/L ABG Hemoglobin (11.7-17.4) g/dL ABG Carboxyhemoglobin (0.5-1.5) % POC ABG HHb (Measured) (0.0-5.0) % ABG Methemoglobin (0.0-3.0) % Jamey Test A-a O2 Difference mm/Hg Respiratory Index Hgb O2 Saturation (95.0-98.0) % Vent Mode Mechanical Rate FiO2 % Tidal Volume PEEP Sodium (132-148) mmol/L Potassium (3.6-5.2) mmol/L Chloride (98-107) mmol/L Carbon Dioxide (22-30) mmol/L Anion Gap (10-20) BUN (9-20) mg/dL Creatinine (0.8-1.5) mg/dL Est GFR ( Amer) Est GFR (Non-Af Amer) POC Glucose (mg/dL) 228 H 266 H 243 H (65-110) mg/dL Random Glucose (75-110) mg/dL Calcium (8.6-10.4) mg/dl Total Bilirubin (0.2-1.3) mg/dL AST (17-59) U/L ALT (21-72) U/L Alkaline Phosphatase (38-126) U/L Total Protein (6.3-8.3) g/dL Albumin (3.5-5.0) g/dL Globulin (2.2-3.9) gm/dL Albumin/Globulin Ratio (1.0-2.1) 01/24/18 01/23/18 01/23/18 Range/Units 00:20 23:38 22:58 WBC (4.8-10.8) K/uL RBC (4.40-5.90) Mil/uL Hgb (12.0-18.0) g/dL Hct (35.0-51.0) % MCV (80.0-94.0) fL MCH (27.0-31.0) pg MCHC (33.0-37.0) g/dL RDW (11.5-14.5) % Plt Count (130-400) K/uL MPV (7.2-11.7) fL Neut % (Auto) (50.0-75.0) % Lymph % (Auto) (20.0-40.0) % Whiteside % (Auto) (0.0-10.0) % Eos % (Auto) (0.0-4.0) % Baso % (Auto) (0.0-2.0) % Neut # (Auto) (1.8-7.0) K/uL Lymph # (Auto) (1.0-4.3) K/uL Whiteside # (Auto) (0.0-0.8) K/uL Eos # (Auto) (0.0-0.7) K/uL Baso # (Auto) (0.0-0.2) K/uL Puncture Site pCO2 (35-45) mm/Hg pO2 (80-100) mm/Hg HCO3 (21-28) mmol/L ABG pH (7.35-7.45) ABG Total CO2 (22-28) mmol/L ABG O2 Saturation (95-98) % ABG Base Excess (-2.0-3.0) mmol/L ABG Hemoglobin (11.7-17.4) g/dL ABG Carboxyhemoglobin (0.5-1.5) % POC ABG HHb (Measured) (0.0-5.0) % ABG Methemoglobin (0.0-3.0) % Jamey Test A-a O2 Difference mm/Hg Respiratory Index Hgb O2 Saturation (95.0-98.0) % Vent Mode Mechanical Rate FiO2 % Tidal Volume PEEP Sodium 149 H (132-148) mmol/L Potassium 4.0 (3.6-5.2) mmol/L Chloride 110 H (98-107) mmol/L Carbon Dioxide 26 (22-30) mmol/L Anion Gap 16 (10-20) BUN 28 H (9-20) mg/dL Creatinine 1.2 (0.8-1.5) mg/dL Est GFR ( Amer) > 60 Est GFR (Non-Af Amer) > 60 POC Glucose (mg/dL) 252 H 205 H (65-110) mg/dL Random Glucose 347 H (75-110) mg/dL Calcium 7.7 L (8.6-10.4) mg/dl Total Bilirubin (0.2-1.3) mg/dL AST (17-59) U/L ALT (21-72) U/L Alkaline Phosphatase (38-126) U/L Total Protein (6.3-8.3) g/dL Albumin (3.5-5.0) g/dL Globulin (2.2-3.9) gm/dL Albumin/Globulin Ratio (1.0-2.1) 01/23/18 01/23/18 01/23/18 Range/Units 22:18 21:13 19:54 WBC (4.8-10.8) K/uL RBC (4.40-5.90) Mil/uL Hgb (12.0-18.0) g/dL Hct (35.0-51.0) % MCV (80.0-94.0) fL MCH (27.0-31.0) pg MCHC (33.0-37.0) g/dL RDW (11.5-14.5) % Plt Count (130-400) K/uL MPV (7.2-11.7) fL Neut % (Auto) (50.0-75.0) % Lymph % (Auto) (20.0-40.0) % Whiteside % (Auto) (0.0-10.0) % Eos % (Auto) (0.0-4.0) % Baso % (Auto) (0.0-2.0) % Neut # (Auto) (1.8-7.0) K/uL Lymph # (Auto) (1.0-4.3) K/uL Whiteside # (Auto) (0.0-0.8) K/uL Eos # (Auto) (0.0-0.7) K/uL Baso # (Auto) (0.0-0.2) K/uL Puncture Site pCO2 (35-45) mm/Hg pO2 (80-100) mm/Hg HCO3 (21-28) mmol/L ABG pH (7.35-7.45) ABG Total CO2 (22-28) mmol/L ABG O2 Saturation (95-98) % ABG Base Excess (-2.0-3.0) mmol/L ABG Hemoglobin (11.7-17.4) g/dL ABG Carboxyhemoglobin (0.5-1.5) % POC ABG HHb (Measured) (0.0-5.0) % ABG Methemoglobin (0.0-3.0) % Jamey Test A-a O2 Difference mm/Hg Respiratory Index Hgb O2 Saturation (95.0-98.0) % Vent Mode Mechanical Rate FiO2 % Tidal Volume PEEP Sodium (132-148) mmol/L Potassium (3.6-5.2) mmol/L Chloride (98-107) mmol/L Carbon Dioxide (22-30) mmol/L Anion Gap (10-20) BUN (9-20) mg/dL Creatinine (0.8-1.5) mg/dL Est GFR ( Amer) Est GFR (Non-Af Amer) POC Glucose (mg/dL) 235 H 210 H 231 H (65-110) mg/dL Random Glucose (75-110) mg/dL Calcium (8.6-10.4) mg/dl Total Bilirubin (0.2-1.3) mg/dL AST (17-59) U/L ALT (21-72) U/L Alkaline Phosphatase (38-126) U/L Total Protein (6.3-8.3) g/dL Albumin (3.5-5.0) g/dL Globulin (2.2-3.9) gm/dL Albumin/Globulin Ratio (1.0-2.1) 01/23/18 01/23/18 01/23/18 Range/Units 18:54 17:52 16:58 WBC (4.8-10.8) K/uL RBC (4.40-5.90) Mil/uL Hgb (12.0-18.0) g/dL Hct (35.0-51.0) % MCV (80.0-94.0) fL MCH (27.0-31.0) pg MCHC (33.0-37.0) g/dL RDW (11.5-14.5) % Plt Count (130-400) K/uL MPV (7.2-11.7) fL Neut % (Auto) (50.0-75.0) % Lymph % (Auto) (20.0-40.0) % Whiteside % (Auto) (0.0-10.0) % Eos % (Auto) (0.0-4.0) % Baso % (Auto) (0.0-2.0) % Neut # (Auto) (1.8-7.0) K/uL Lymph # (Auto) (1.0-4.3) K/uL Whiteside # (Auto) (0.0-0.8) K/uL Eos # (Auto) (0.0-0.7) K/uL Baso # (Auto) (0.0-0.2) K/uL Puncture Site pCO2 (35-45) mm/Hg pO2 (80-100) mm/Hg HCO3 (21-28) mmol/L ABG pH (7.35-7.45) ABG Total CO2 (22-28) mmol/L ABG O2 Saturation (95-98) % ABG Base Excess (-2.0-3.0) mmol/L ABG Hemoglobin (11.7-17.4) g/dL ABG Carboxyhemoglobin (0.5-1.5) % POC ABG HHb (Measured) (0.0-5.0) % ABG Methemoglobin (0.0-3.0) % Jamey Test A-a O2 Difference mm/Hg Respiratory Index Hgb O2 Saturation (95.0-98.0) % Vent Mode Mechanical Rate FiO2 % Tidal Volume PEEP Sodium (132-148) mmol/L Potassium (3.6-5.2) mmol/L Chloride (98-107) mmol/L Carbon Dioxide (22-30) mmol/L Anion Gap (10-20) BUN (9-20) mg/dL Creatinine (0.8-1.5) mg/dL Est GFR ( Amer) Est GFR (Non-Af Amer) POC Glucose (mg/dL) 234 H 201 H 215 H (65-110) mg/dL Random Glucose (75-110) mg/dL Calcium (8.6-10.4) mg/dl Total Bilirubin (0.2-1.3) mg/dL AST (17-59) U/L ALT (21-72) U/L Alkaline Phosphatase (38-126) U/L Total Protein (6.3-8.3) g/dL Albumin (3.5-5.0) g/dL Globulin (2.2-3.9) gm/dL Albumin/Globulin Ratio (1.0-2.1) 01/23/18 Range/Units 16:21 WBC (4.8-10.8) K/uL RBC (4.40-5.90) Mil/uL Hgb (12.0-18.0) g/dL Hct (35.0-51.0) % MCV (80.0-94.0) fL MCH (27.0-31.0) pg MCHC (33.0-37.0) g/dL RDW (11.5-14.5) % Plt Count (130-400) K/uL MPV (7.2-11.7) fL Neut % (Auto) (50.0-75.0) % Lymph % (Auto) (20.0-40.0) % Whiteside % (Auto) (0.0-10.0) % Eos % (Auto) (0.0-4.0) % Baso % (Auto) (0.0-2.0) % Neut # (Auto) (1.8-7.0) K/uL Lymph # (Auto) (1.0-4.3) K/uL Whiteside # (Auto) (0.0-0.8) K/uL Eos # (Auto) (0.0-0.7) K/uL Baso # (Auto) (0.0-0.2) K/uL Puncture Site pCO2 (35-45) mm/Hg pO2 (80-100) mm/Hg HCO3 (21-28) mmol/L ABG pH (7.35-7.45) ABG Total CO2 (22-28) mmol/L ABG O2 Saturation (95-98) % ABG Base Excess (-2.0-3.0) mmol/L ABG Hemoglobin (11.7-17.4) g/dL ABG Carboxyhemoglobin (0.5-1.5) % POC ABG HHb (Measured) (0.0-5.0) % ABG Methemoglobin (0.0-3.0) % Jamey Test A-a O2 Difference mm/Hg Respiratory Index Hgb O2 Saturation (95.0-98.0) % Vent Mode Mechanical Rate FiO2 % Tidal Volume PEEP Sodium (132-148) mmol/L Potassium (3.6-5.2) mmol/L Chloride (98-107) mmol/L Carbon Dioxide (22-30) mmol/L Anion Gap (10-20) BUN (9-20) mg/dL Creatinine (0.8-1.5) mg/dL Est GFR ( Amer) Est GFR (Non-Af Amer) POC Glucose (mg/dL) 220 H (65-110) mg/dL Random Glucose (75-110) mg/dL Calcium (8.6-10.4) mg/dl Total Bilirubin (0.2-1.3) mg/dL AST (17-59) U/L ALT (21-72) U/L Alkaline Phosphatase (38-126) U/L Total Protein (6.3-8.3) g/dL Albumin (3.5-5.0) g/dL Globulin (2.2-3.9) gm/dL Albumin/Globulin Ratio (1.0-2.1) Laboratory Results - last 24 hr 01/23/18 01/23/18 01/23/18 16:21 16:58 17:52 WBC RBC Hgb Hct MCV MCH MCHC RDW Plt Count MPV Neut % (Auto) Lymph % (Auto) Whiteside % (Auto) Eos % (Auto) Baso % (Auto) Neut # (Auto) Lymph # (Auto) Whiteside # (Auto) Eos # (Auto) Baso # (Auto) Puncture Site pCO2 pO2 HCO3 ABG pH ABG Total CO2 ABG O2 Saturation ABG Base Excess ABG Hemoglobin ABG Carboxyhemoglobin POC ABG HHb (Measured) ABG Methemoglobin Jamey Test A-a O2 Difference Respiratory Index Hgb O2 Saturation Vent Mode Mechanical Rate FiO2 Tidal Volume PEEP Sodium Potassium Chloride Carbon Dioxide Anion Gap BUN Creatinine Est GFR ( Amer) Est GFR (Non-Af Amer) POC Glucose (mg/dL) 220 H 215 H 201 H Random Glucose Calcium Total Bilirubin AST ALT Alkaline Phosphatase Total Protein Albumin Globulin Albumin/Globulin Ratio 01/23/18 01/23/18 01/23/18 18:54 19:54 21:13 WBC RBC Hgb Hct MCV MCH MCHC RDW Plt Count MPV Neut % (Auto) Lymph % (Auto) [place] % (Auto) Eos % (Auto) Baso % (Auto) Neut # (Auto) Lymph # (Auto) [place] # (Auto) Eos # (Auto) Baso # (Auto) Puncture Site pCO2 pO2 HCO3 ABG pH ABG Total CO2 ABG O2 Saturation ABG Base Excess ABG Hemoglobin ABG Carboxyhemoglobin POC ABG HHb (Measured) ABG Methemoglobin Jamey Test A-a O2 Difference Respiratory Index Hgb O2 Saturation Vent Mode Mechanical Rate FiO2 Tidal Volume PEEP Sodium Potassium Chloride Carbon Dioxide Anion Gap BUN Creatinine Est GFR ( Amer) Est GFR (Non-Af Amer) POC Glucose (mg/dL) 234 H 231 H 210 H Random Glucose Calcium Total Bilirubin AST ALT Alkaline Phosphatase Total Protein Albumin Globulin Albumin/Globulin Ratio 01/23/18 01/23/18 01/23/18 22:18 22:58 23:38 WBC RBC Hgb Hct MCV MCH MCHC RDW Plt Count MPV Neut % (Auto) Lymph % (Auto) [place] % (Auto) Eos % (Auto) Baso % (Auto) Neut # (Auto) Lymph # (Auto) [place] # (Auto) Eos # (Auto) Baso # (Auto) Puncture Site pCO2 pO2 HCO3 ABG pH ABG Total CO2 ABG O2 Saturation ABG Base Excess ABG Hemoglobin ABG Carboxyhemoglobin POC ABG HHb (Measured) ABG Methemoglobin Jamey Test A-a O2 Difference Respiratory Index Hgb O2 Saturation Vent Mode Mechanical Rate FiO2 Tidal Volume PEEP Sodium Potassium Chloride Carbon Dioxide Anion Gap BUN Creatinine Est GFR ( Amer) Est GFR (Non-Af Amer) POC Glucose (mg/dL) 235 H 205 H 252 H Random Glucose Calcium Total Bilirubin AST ALT Alkaline Phosphatase Total Protein Albumin Globulin Albumin/Globulin Ratio 01/24/18 01/24/18 01/24/18 00:20 01:07 02:04 WBC RBC Hgb Hct MCV MCH MCHC RDW Plt Count MPV Neut % (Auto) Lymph % (Auto) [place] % (Auto) Eos % (Auto) Baso % (Auto) Neut # (Auto) Lymph # (Auto) [place] # (Auto) Eos # (Auto) Baso # (Auto) Puncture Site pCO2 pO2 HCO3 ABG pH ABG Total CO2 ABG O2 Saturation ABG Base Excess ABG Hemoglobin ABG Carboxyhemoglobin POC ABG HHb (Measured) ABG Methemoglobin Jamey Test A-a O2 Difference Respiratory Index Hgb O2 Saturation Vent Mode Mechanical Rate FiO2 Tidal Volume PEEP Sodium 149 H Potassium 4.0 Chloride 110 H Carbon Dioxide 26 Anion Gap 16 BUN 28 H Creatinine 1.2 Est GFR ( Amer) > 60 Est GFR (Non-Af Amer) > 60 POC Glucose (mg/dL) 243 H 266 H Random Glucose 347 H Calcium 7.7 L Total Bilirubin AST ALT Alkaline Phosphatase Total Protein Albumin Globulin Albumin/Globulin Ratio 01/24/18 01/24/18 01/24/18 02:55 03:53 04:30 WBC RBC Hgb Hct MCV MCH MCHC RDW Plt Count MPV Neut % (Auto) Lymph % (Auto) [place] % (Auto) Eos % (Auto) Baso % (Auto) Neut # (Auto) Lymph # (Auto) [place] # (Auto) Eos # (Auto) Baso # (Auto) Puncture Site Rb pCO2 45 pO2 73 L HCO3 26.5 ABG pH 7.40 ABG Total CO2 29.3 H ABG O2 Saturation 96.0 ABG Base Excess 2.2 ABG Hemoglobin 19.7 H ABG Carboxyhemoglobin 1.9 H POC ABG HHb (Measured) 3.9 ABG Methemoglobin 0.9 Jamey Test Na A-a O2 Difference 156.0 Respiratory Index 2.1 Hgb O2 Saturation 93.3 L Vent Mode Prvc Mechanical Rate 16 FiO2 40.0 Tidal Volume 500 PEEP 5 Sodium Potassium Chloride Carbon Dioxide Anion Gap BUN Creatinine Est GFR ( Amer) Est GFR (Non-Af Amer) POC Glucose (mg/dL) 228 H 206 H Random Glucose Calcium Total Bilirubin AST ALT Alkaline Phosphatase Total Protein Albumin Globulin Albumin/Globulin Ratio 01/24/18 01/24/18 01/24/18 05:07 05:57 06:17 WBC RBC Hgb Hct MCV MCH MCHC RDW Plt Count MPV Neut % (Auto) Lymph % (Auto) [place] % (Auto) Eos % (Auto) Baso % (Auto) Neut # (Auto) Lymph # (Auto) [place] # (Auto) Eos # (Auto) Baso # (Auto) Puncture Site pCO2 pO2 HCO3 ABG pH ABG Total CO2 ABG O2 Saturation ABG Base Excess ABG Hemoglobin ABG Carboxyhemoglobin POC ABG HHb (Measured) ABG Methemoglobin Jamey Test A-a O2 Difference Respiratory Index Hgb O2 Saturation Vent Mode Mechanical Rate FiO2 Tidal Volume PEEP Sodium 154 H Potassium 3.9 Chloride 114 H Carbon Dioxide 28 Anion Gap 15 BUN 31 H Creatinine 1.3 Est GFR ( Amer) > 60 Est GFR (Non-Af Amer) 55 POC Glucose (mg/dL) 228 H 231 H Random Glucose 240 H Calcium 8.6 Total Bilirubin 0.5 AST 71 H D ALT 67 Alkaline Phosphatase 101 Total Protein 6.5 Albumin 3.2 L Globulin 3.3 Albumin/Globulin Ratio 1.0 01/24/18 01/24/18 01/24/18 06:19 06:53 08:03 WBC 7.3 RBC 4.51 Hgb 14.1 Hct 42.5 MCV 94.1 H MCH 31.2 H MCHC 33.2 RDW 12.6 Plt Count 127 L MPV 12.1 H Neut % (Auto) 72.7 Lymph % (Auto) 18.0 L [place]ites[place] % (Auto) 5.5 Eos % (Auto) 3.4 Baso % (Auto) 0.4 Neut # (Auto) 5.3 Lymph # (Auto) 1.3 [place]iteside # (Auto) 0.4 Eos # (Auto) 0.2 Baso # (Auto) 0.0 Puncture Site pCO2 pO2 HCO3 ABG pH ABG Total CO2 ABG O2 Saturation ABG Base Excess ABG Hemoglobin ABG Carboxyhemoglobin POC ABG HHb (Measured) ABG Methemoglobin Jamey Test A-a O2 Difference Respiratory Index Hgb O2 Saturation Vent Mode Mechanical Rate FiO2 Tidal Volume PEEP Sodium Potassium Chloride Carbon Dioxide Anion Gap BUN Creatinine Est GFR ( Amer) Est GFR (Non-Af Amer) POC Glucose (mg/dL) 206 H 215 H Random Glucose Calcium Total Bilirubin AST ALT Alkaline Phosphatase Total Protein Albumin Globulin Albumin/Globulin Ratio 01/24/18 01/24/18 01/24/18 09:05 10:11 11:04 WBC RBC Hgb Hct MCV MCH MCHC RDW Plt Count MPV Neut % (Auto) Lymph % (Auto) [place] % (Auto) Eos % (Auto) Baso % (Auto) Neut # (Auto) Lymph # (Auto) [place] # (Auto) Eos # (Auto) Baso # (Auto) Puncture Site pCO2 pO2 HCO3 ABG pH ABG Total CO2 ABG O2 Saturation ABG Base Excess ABG Hemoglobin ABG Carboxyhemoglobin POC ABG HHb (Measured) ABG Methemoglobin Jamey Test A-a O2 Difference Respiratory Index Hgb O2 Saturation Vent Mode Mechanical Rate FiO2 Tidal Volume PEEP Sodium Potassium Chloride Carbon Dioxide Anion Gap BUN Creatinine Est GFR ( Amer) Est GFR (Non-Af Amer) POC Glucose (mg/dL) 229 H 212 H 218 H Random Glucose Calcium Total Bilirubin AST ALT Alkaline Phosphatase Total Protein Albumin Globulin Albumin/Globulin Ratio 01/24/18 01/24/18 01/24/18 11:45 12:48 13:49 WBC RBC Hgb Hct MCV MCH MCHC RDW Plt Count MPV Neut % (Auto) Lymph % (Auto) [place] % (Auto) Eos % (Auto) Baso % (Auto) Neut # (Auto) Lymph # (Auto) [place] # (Auto) Eos # (Auto) Baso # (Auto) Puncture Site pCO2 pO2 HCO3 ABG pH ABG Total CO2 ABG O2 Saturation ABG Base Excess ABG Hemoglobin ABG Carboxyhemoglobin POC ABG HHb (Measured) ABG Methemoglobin Jamey Test A-a O2 Difference Respiratory Index Hgb O2 Saturation Vent Mode Mechanical Rate FiO2 Tidal Volume PEEP Sodium Potassium Chloride Carbon Dioxide Anion Gap BUN Creatinine Est GFR ( Amer) Est GFR (Non-Af Amer) POC Glucose (mg/dL) 242 H 227 H 223 H Random Glucose Calcium Total Bilirubin AST ALT Alkaline Phosphatase Total Protein Albumin Globulin Albumin/Globulin Ratio 01/24/18 14:51 WBC RBC Hgb Hct MCV MCH MCHC RDW Plt Count MPV Neut % (Auto) Lymph % (Auto) [place] % (Auto) Eos % (Auto) Baso % (Auto) Neut # (Auto) Lymph # (Auto) [place] # (Auto) Eos # (Auto) Baso # (Auto) Puncture Site pCO2 pO2 HCO3 ABG pH ABG Total CO2 ABG O2 Saturation ABG Base Excess ABG Hemoglobin ABG Carboxyhemoglobin POC ABG HHb (Measured) ABG Methemoglobin Jamey Test A-a O2 Difference Respiratory Index Hgb O2 Saturation Vent Mode Mechanical Rate FiO2 Tidal Volume PEEP Sodium Potassium Chloride Carbon Dioxide Anion Gap BUN Creatinine Est GFR ( Amer) Est GFR (Non-Af Amer) POC Glucose (mg/dL) 226 H Random Glucose Calcium Total Bilirubin AST ALT Alkaline Phosphatase Total Protein Albumin Globulin Albumin/Globulin Ratio Attending/Attestation - Attestation I have personally seen and examined this patient.: Yes I have fully participated in the care of the patient.: Yes I have reviewed all pertinent clinical information: Yes Notes (Text): 01/24/18 16:04 patient seen and examined in the intensive care unit. Previous events noted. Tolerating CPAP No further seizure activity Continue Nina Seen by neurology For MRI OF HEAD
--- NOTE | 2018-01-24 12:02 | CP.PCM.PN ---
Subjective - Date & Time of Evaluation Date of Evaluation: 01/24/18 Time of Evaluation: 12:02 - Subjective Subjective: Mr. Latif was seen and examined at the bedside. He remains on mechanical ventilator, off sedation, pupils are unequal with left 3 mm and right 2 mm. He has gag relex. He also moves all extremities with the left more restless than the right, but unable to follow any commands. There was no untoward events overnight. Objective - Vital Signs/Intake and Output Vital Signs (last 24 hours): Temp Pulse Resp BP Pulse Ox 98.9 F 75 30 H 149/69 96 01/24/18 08:00 01/24/18 11:00 01/24/18 11:00 01/24/18 10:30 01/24/18 11:00 Intake and Output: 01/24/18 01/24/18 06:59 18:59 Intake Total 2946 1565 Output Total 1590 475 Balance 1356 1090 - Medications Medications: Current Medications Acetaminophen (Tylenol 650mg/20.3ml Solution Ud) 650 mg NG Q6 PRN PRN Reason: GIVE FOR TEMP. 100*F OR ABOVE Last Admin: 01/24/18 00:00 Dose: 650 mg Albuterol Sulfate (Albuterol 0.083% Inhal Lynne (2.5 Mg/3 Ml) Ud) 2.5 mg IH RQ6 [facility] Last Admin: 01/24/18 08:09 Dose: 2.5 mg Aspirin (Aspirin Chewable) 81 mg PO DAILY [facility] Last Admin: 01/24/18 09:15 Dose: 81 mg Carvedilol (Coreg) 12.5 mg PO BID [facility] Last Admin: 01/24/18 09:16 Dose: 12.5 mg Heparin Sodium (Porcine) (Heparin) 5,000 units SC Q8 [facility] Last Admin: 01/23/18 15:08 Dose: Not Given Hydralazine HCl (Apresoline) 50 mg PO Q8 [facility] Last Admin: 01/24/18 05:11 Dose: 50 mg Levetiracetam 1,000 mg/ Sodium (Chloride) 110 mls @ 440 mls/hr IVPB Q12H [facility] Last Admin: 01/24/18 09:15 Dose: 440 mls/hr Dextrose (Dextrose 5% In Water 1000 Ml) 1,000 mls @ 100 mls/hr IV .Q10H [facility] Last Admin: 01/24/18 06:56 Dose: 100 mls/hr Insulin Human Regular 100 unit (/ Sodium Chloride) 100 mls @ 2 mls/hr IV .Q24H [facility] PRN Reason: Protocol Last Titration: 01/24/18 03:08 Dose: 3 units/hr, 3 mls/hr Insulin Aspart (Novolog) 0 unit SC Q4H [facility] PRN Reason: Protocol Last Admin: 01/23/18 08:19 Dose: 2 unit Insulin Glargine (Lantus) 20 unit SC [facility] Last Admin: 01/22/18 21:01 Dose: 20 u Pantoprazole Sodium (Protonix Susp) 40 mg PO 1000 [facility] Last Admin: 01/24/18 09:16 Dose: 40 mg Rosuvastatin Calcium (Crestor) 10 mg PO HS [facility] Last Admin: 01/23/18 21:23 Dose: 10 mg Sennosides (Senokot Tab) 8.6 mg PO DAILY [facility] Last Admin: 01/24/18 09:16 Dose: 8.6 mg - Labs Labs: 01/24/18 06:19 01/24/18 06:17 PT 10.6 SECONDS (9.7-12.2) 01/16/18 12:27 INR 0.9 01/16/18 12:27 APTT 33 SECONDS (21-34) 01/16/18 12:27 - Constitutional Appears: No Acute Distress - Head Exam Head Exam: NORMAL INSPECTION - Neurological Exam Neuro motor strength exam: Left Upper Extremity: 4, Right Upper Extremity: 4, Left Lower Extremity: 4, Right Lower Extremity: 4 Additional comments: He moves his extremities spontaneously, + gag reflex. Assessment and Plan (1) Status epilepticus Assessment & Plan: Case discussed with Dr. Baldwin, continue all current medical regimen including AED. Pending MRI of the brain. Status: Acute
[2018-01-24] MEDS: Insulin Human Regular 100 UNIT in Sodium Chloride 0.9% 99 ML IV SCH (13:31)
[2018-01-24] MEDS: Acetaminophen 650mg/20.3ml solution UD NG PRN ×2 (20:09)
--- NOTE | 2018-01-24 22:52 | CP.PCM.PN ---
Subjective - Date & Time of Evaluation Date of Evaluation: 01/24/18 Time of Evaluation: 18:00 - Subjective Subjective: Pt seen and examined at bedside Objective - Vital Signs/Intake and Output Vital Signs (last 24 hours): Temp Pulse Resp BP Pulse Ox 98.2 F 83 21 150/71 94 L 01/24/18 20:00 01/24/18 22:00 01/24/18 22:00 01/24/18 21:29 01/24/18 22:00 Intake and Output: 01/24/18 01/25/18 18:59 06:59 Intake Total 3561 856 Output Total 1350 280 Balance 2211 576 - Medications Medications: Current Medications Acetaminophen (Tylenol 650mg/20.3ml Solution Ud) 650 mg NG Q6 PRN PRN Reason: GIVE FOR TEMP. 100*F OR ABOVE Last Admin: 01/24/18 20:09 Dose: 650 mg Albuterol Sulfate (Albuterol 0.083% Inhal Lynne (2.5 Mg/3 Ml) Ud) 2.5 mg IH RQ6 [facility] Last Admin: 01/24/18 19:54 Dose: 2.5 mg Aspirin (Aspirin Chewable) 81 mg PO DAILY [facility] Last Admin: 01/24/18 09:15 Dose: 81 mg Carvedilol (Coreg) 12.5 mg PO BID [facility] Last Admin: 01/24/18 17:14 Dose: 12.5 mg Heparin Sodium (Porcine) (Heparin) 5,000 units SC Q8 [facility] Last Admin: 01/23/18 15:08 Dose: Not Given Hydralazine HCl (Apresoline) 50 mg PO Q8 [facility] Last Admin: 01/24/18 21:10 Dose: 50 mg Levetiracetam 1,000 mg/ Sodium (Chloride) 110 mls @ 440 mls/hr IVPB Q12H [facility] Last Admin: 01/24/18 22:14 Dose: 440 mls/hr Dextrose (Dextrose 5% In Water 1000 Ml) 1,000 mls @ 50 mls/hr IV .Q20H [facility] Last Admin: 01/24/18 21:11 Dose: 50 mls/hr Insulin Aspart (Novolog) 0 unit SC Q4H [facility] PRN Reason: Protocol Last Admin: 01/23/18 08:19 Dose: 2 unit Insulin Glargine (Lantus) 20 unit SC HS [facility] Last Admin: 01/22/18 21:01 Dose: 20 u Insulin Human Regular (Novolin R) 0 unit SC Q6H [facility] PRN Reason: Protocol Pantoprazole Sodium (Protonix Susp) 40 mg PO 1000 [facility] Last Admin: 01/24/18 09:16 Dose: 40 mg Rosuvastatin Calcium (Crestor) 10 mg PO HS [facility] Last Admin: 01/24/18 21:10 Dose: 10 mg Sennosides (Senokot Tab) 8.6 mg PO DAILY [facility] Last Admin: 01/24/18 09:16 Dose: 8.6 mg - Labs Labs: 01/24/18 06:19 01/24/18 06:17 PT 10.6 SECONDS (9.7-12.2) 01/16/18 12:27 INR 0.9 01/16/18 12:27 APTT 33 SECONDS (21-34) 01/16/18 12:27 Assessment and Plan (1) Status epilepticus Status: Acute (2) COPD (chronic obstructive pulmonary disease) Status: Acute (3) Congestive heart failure Status: Acute (4) Diabetes Status: Acute (5) Hypernatremia Status: Acute
[2018-01-25] MEDS: (Novolin R) Insulin Human Regular 100 units/ml vial SC SCH ×5 (00:05→17:51)
[2018-01-25 00:43] LABS: BLOOD UREA NITROGEN 32 mg/dL (9-20); CALCIUM 7.9 mg/dl (8.6-10.4); GFR AFRICAN-AMERICAN > 60; GFR NON-AFRICAN AMERICAN > 60
[2018-01-25] MEDS: Albuterol 0.083% Inhal Sol (2.5 mg/3 mL) UD IH SCH ×4 (01:09→19:50)
[2018-01-25] MEDS: Acetaminophen 650mg/20.3ml solution UD NG PRN ×3 (02:00→15:47)
--- NOTE | 2018-01-25 02:24 | PN ---
DATE: 01/24/2018 FOLLOWUP RENAL CONSULTATION LOCATION: Patient is located in room 5, ICU. HISTORY OF PRESENT ILLNESS: Mr. Latif is a 67 years old elderly male with a past medical history significant for longstanding hypertension, diabetes, hyperlipidemia, CVA, was found unresponsive on the bed and the patient was brought to the hospital and subsequently intubated for airway protection. The patient also has witnessed seizures in the emergency room. The patient remains intubated since admission. The patient is not responding to the deep painful stimuli. No change in the patient's mental status since his admission. PHYSICAL EXAMINATION: VITAL SIGNS: This morning as follows; blood pressure 149/69, pulse 77, respirations 28, saturation 96 and temperature is 98.9. Height 5 feet 9 inches, weight is 214 pounds. GENERAL: Mr. Latif is a 67 years old elderly male, moderately built, moderately nourished, on ventilator. HEENT: Pupils are normal, reactive to light and accommodation. Conjunctivae pink. Sclerae anicteric. No gag reflex. Trachea is midline. LUNGS: Symmetrical on both sides. Bilateral breath sounds present. Clear on auscultation. CVS: [place] at the fifth intercostal space of intermediate midclavicular line. S1 and S2 audible. No murmur or gallop. ABDOMEN: Normal in appearance, soft, tympanic. No guarding, no rigidity. No hepatosplenomegaly. MICROSTRATEGY BI DEVELOPER: The patient is on ventilator, not responding to verbal stimuli or deep painful stimuli. EXTREMITIES: No cyanosis, no clubbing, no edema. CURRENT MEDICATIONS: Include as follows, albuterol inhaler q. 6 hours, hydralazine 50 mg p.o. q. 8 hours, aspirin 81 mg p.o. daily, Coreg 12.5 mg p.o. b.i.d., Crestor 10 mg at bedtime, subcu heparin on hold, Lantus on hold, Keppra 1000 mg q. 12 hours, Novolin R for sliding scale, NovoLog on hold, Protonix 40 mg p.o. q.d., Senokot 8.6 mg p.o. daily, Tylenol 650 mg by NG tube q. 6 hours p.r.n. LABORATORY DATA: Include as follows as of 01/24/2018; WBC 7.3, hemoglobin 14.1, hematocrit is 42.5, platelets 127. ABG; pH 7.40, pCO2 of 45, pO2 of 73, bicarb 26.5, saturation 96%. Sodium 154, potassium 3.9, chloride 114, CO2 of 28, BUN 31, creatinine 1.3, glucose 240, calcium 8.6, total bili 0.5, AST 71, ALT 67, alkaline phos 101, total protein 6.5, albumin is 3.2. ASSESSMENT AND PLAN: In summary, Mr. Latif is a 67 years old elderly male with hypertension, diabetes, hyperlipidemia, cerebrovascular accident, seizures, was admitted with altered mental status on IV fluids and uncontrolled diabetes. 1. Hypernatremia secondary to intravascular depletion secondary to vigorous diuresis and osmotic diuresis also. Plan is to continue IV fluids D5W at 125 mL/hour and need a better control of the sugars and also continue free water 400 mL q. 4 hours by nasogastric tube. 2. Prerenal azotemia. Renal function is improving at this time. 3. Hypertension. 4. Uncontrolled diabetes. 5. Seizures. 6. Cerebrovascular accident. 7. Altered mental status rule out anoxic encephalopathy. Please consider to increase IV fluids to 125 mL/hour D5W, avoid half-normal saline with IV antibiotics or with medications if possible and compatible. We will follow with you. Thank you for allowing me to participate in the patient's care. Baldemar Ruiz MD
[2018-01-25 06:40] LABS: BASO % 0.4 % (0.0-2.0); EOS # 0.1 K/uL (0.0-0.7); EOS % 0.7 % (0.0-4.0); HEMOGLOBIN 13.8 g/dL (12.0-18.0); LYMPH # 1.2 K/uL (1.0-4.3); LYMPH % 12.2 % (20.0-40.0); MEAN CELL VOLUME 93.7 fL (80.0-94.0); MEAN CORPUSCULAR HEMOGLOBIN 31.5 pg (27.0-31.0); MEAN CORPUSCULAR HGB CONC 33.6 g/dL (33.0-37.0); MEAN PLATELET VOLUME 12.6 fL (7.2-11.7); MONO # 0.4 K/uL (0.0-0.8); MONO % 3.7 % (0.0-10.0); NEUT # 8.2 K/uL (1.8-7.0); RBC 4.38 Mil/uL (4.40-5.90); RED CELL DISTRIBUTION WIDTH 12.5 % (11.5-14.5); WHITE BLOOD COUNT 9.9 K/uL (4.8-10.8)
[2018-01-25 06:53] LABS: ALB/GLOB RATIO 0.9 (1.0-2.1); ALT/SGPT 89 U/L (21-72); AST/SGOT 100 U/L (17-59); BLOOD UREA NITROGEN 36 mg/dL (9-20); CALCIUM 8.5 mg/dl (8.6-10.4); GFR AFRICAN-AMERICAN > 60; GFR NON-AFRICAN AMERICAN 51
[2018-01-25] MEDS: Pantoprazole 40 mg Susp UD PO SCH (09:13)
--- NOTE | 2018-01-25 09:57 | CP.PCM.PN ---
Subjective - Date & Time of Evaluation Date of Evaluation: 01/25/18 Time of Evaluation: 09:54 - Subjective Subjective: pt is seen and examined, follow up consult is dictated #[id number] corrected na is 153-154 need better control of sugars, keep <150, titrate insulin, consider endo consult c/w and increase d5w at 125 ml/hr if ok to icu attending consider to treat dvt rt scv Objective - Vital Signs/Intake and Output Vital Signs (last 24 hours): Temp Pulse Resp BP Pulse Ox 100.9 F H 84 23 149/62 97 01/25/18 08:50 01/25/18 06:29 01/25/18 06:29 01/25/18 09:15 01/25/18 06:29 Intake and Output: 01/25/18 01/25/18 06:59 18:59 Intake Total 2506 100 Output Total 1130 50 Balance 1376 50 - Medications Medications: Current Medications Acetaminophen (Tylenol 650mg/20.3ml Solution Ud) 650 mg NG Q6 PRN PRN Reason: GIVE FOR TEMP. 100*F OR ABOVE Last Admin: 01/25/18 08:50 Dose: 650 mg Albuterol Sulfate (Albuterol 0.083% Inhal Lynne (2.5 Mg/3 Ml) Ud) 2.5 mg IH RQ6 [facility] Last Admin: 01/25/18 07:41 Dose: 2.5 mg Aspirin (Aspirin Chewable) 81 mg PO DAILY [facility] Last Admin: 01/25/18 09:16 Dose: 81 mg Carvedilol (Coreg) 12.5 mg PO BID [facility] Last Admin: 01/25/18 09:15 Dose: 12.5 mg Heparin Sodium (Porcine) (Heparin) 5,000 units SC Q8 [facility] Last Admin: 01/23/18 15:08 Dose: Not Given Hydralazine HCl (Apresoline) 50 mg PO Q8 [facility] Last Admin: 01/25/18 06:02 Dose: 50 mg Levetiracetam 1,000 mg/ Sodium (Chloride) 110 mls @ 440 mls/hr IVPB Q12H [facility] Last Admin: 01/24/18 22:14 Dose: 440 mls/hr Dextrose (Dextrose 5% In Water 1000 Ml) 1,000 mls @ 50 mls/hr IV .Q20H [facility] Last Admin: 01/24/18 21:11 Dose: 50 mls/hr Insulin Aspart (Novolog) 0 unit SC Q4H [facility] PRN Reason: Protocol Last Admin: 01/23/18 08:19 Dose: 2 unit Insulin Glargine (Lantus) 20 unit SC HS [facility] Last Admin: 01/22/18 21:01 Dose: 20 u Insulin Human Regular (Novolin R) 0 unit SC Q6 [facility] PRN Reason: Protocol Last Admin: 01/25/18 08:50 Dose: 10 unit Pantoprazole Sodium (Protonix Susp) 40 mg PO 1000 [facility] Last Admin: 01/25/18 09:13 Dose: 40 mg Rosuvastatin Calcium (Crestor) 10 mg PO HS [facility] Last Admin: 01/24/18 21:10 Dose: 10 mg Sennosides (Senokot Tab) 8.6 mg PO DAILY [facility] Last Admin: 01/25/18 09:15 Dose: 8.6 mg - Labs Labs: 01/25/18 06:28 01/25/18 06:26 PT 10.6 SECONDS (9.7-12.2) 01/16/18 12:27 INR 0.9 01/16/18 12:27 APTT 33 SECONDS (21-34) 01/16/18 12:27
--- NOTE | 2018-01-25 10:18 | CP.CCUPN ---
<AlejandroAntonioMcallen - Last Filed: 01/25/18 10:39> CCU Subjective - Physician Review Subjective (Free Text): 01/23/18 09:27 Patient seen and examined at bedside. Per nursing no acute events occurred overnight. 01/25/18 10:17 Patient seen and examined at bedside. Per nursing no acute events occurred overnight. Critical Care Time Spent (in minutes): 45 CCU Objective - Vital Signs / Intake & Output Vital Signs (Last 4 hours): Vital Signs Temp Pulse Resp BP Pulse Ox 01/25/18 09:15 149/62 01/25/18 08:50 100.9 F H 01/25/18 06:29 84 23 173/71 H 97 Intake and Output (Last 8hrs): Intake & Output 01/24/18 01/25/18 01/25/18 22:59 06:59 14:59 Intake Total 1940 1600 100 Output Total 865 790 50 Balance 1075 810 50 Weight 217 lb 13.944 oz Intake: IV 16 Intake, IV Amount 724 400 50 Left Hand 700 400 50 Left Hand 2 24 0 Tube Feeding 400 400 50 Other 800 800 Output: Urine 865 790 50 Urethral (Stanley) 865 790 50 - Physical Exam Head: Positive for: Atraumatic, Normocephalic Pupils: Positive for: Other (corneal reflex) Mouth: Positive for: Other (trach in place) Neck: Positive for: Normal Range of Motion Respiratory/Chest: Positive for: Clear to Auscultation. Negative for: Respiratory Distress Cardiovascular: Positive for: Regular Rate and Rhythm, Normal S1, S2. Negative for: Tachycardic Abdomen: Positive for: Normal Bowel Sounds, Other (obese). Negative for: Tenderness, Distention, Peritoneal Signs Lower Extremity: Positive for: Normal Inspection Neurological: Positive for: Other (patient resists both upper extremities upon examination.) - Medications Active Medications: Active Medications Generic Name Dose Route Start Last Admin Trade Name Freq PRN Reason Stop Dose Admin Acetaminophen 650 mg 01/19/18 00:50 01/25/18 08:50 Tylenol 650mg/20.3ml Solution Ud NG 650 mg Q6 PRN Administration GIVE FOR TEMP. 100*F OR ABOVE Albuterol Sulfate 2.5 mg 01/16/18 14:45 01/25/18 07:41 Albuterol 0.083% Inhal Lynne (2.5 Mg/3 Ml) Ud IH 2.5 mg RQ6 SHINE Administration Aspirin 81 mg 01/17/18 10:00 01/25/18 09:16 Aspirin Chewable PO 81 mg DAILY SHINE Administration Carvedilol 12.5 mg 01/22/18 09:07 01/25/18 09:15 Coreg PO 12.5 mg BID SHINE Administration Heparin Sodium (Porcine) 5,000 units 01/17/18 14:00 01/23/18 15:08 Heparin SC Not Given Q8 SHINE Hydralazine HCl 50 mg 01/16/18 22:00 01/25/18 06:02 Apresoline PO 50 mg Q8 SHINE Administration Levetiracetam 1,000 mg/ Sodium 110 mls @ 440 mls/hr 01/22/18 10:00 01/24/18 22:14 Chloride IVPB 440 mls/hr Q12H SHINE Administration Dextrose 1,000 mls @ 50 mls/hr 01/24/18 21:05 01/24/18 21:11 Dextrose 5% In Water 1000 Ml IV 50 mls/hr .Q20H SHINE Administration Insulin Aspart 0 unit 01/22/18 00:00 01/23/18 08:19 Novolog SC 2 unit Q4H SHINE Administration Protocol Insulin Glargine 20 unit 01/20/18 17:13 01/22/18 21:01 Lantus SC 20 u HS SHINE Administration Insulin Human Regular 0 unit 01/25/18 07:47 01/25/18 08:50 Novolin R SC 10 unit Q6 [facility] Administration Protocol Pantoprazole Sodium 40 mg 01/21/18 12:00 01/25/18 09:13 Protonix Susp PO 40 mg 1000 SHINE Administration Rosuvastatin Calcium 10 mg 01/16/18 22:00 01/24/18 21:10 Crestor PO 10 mg HS [facility] Administration Sennosides 8.6 mg 01/17/18 14:00 01/25/18 09:15 Senokot Tab PO 8.6 mg DAILY SHINE Administration - Patient Studies Lab Studies: Microbiology Studies 01/22/18 14:00 Gram Stain - Final Back Wound Culture - Final Enterococcus Faecalis Coagulase Neg Staphylococcus 01/21/18 Unknown Blood Culture - Preliminary Blood-Venous NO GROWTH AFTER 3 DAYS 01/21/18 Unknown Blood Culture - Preliminary Blood-Venous NO GROWTH AFTER 3 DAYS 01/21/18 Unknown Gram Stain - Final Trachasp Sputum Culture - Final Staphylococcus Aureus Lab Studies 01/25/18 01/25/18 01/25/18 Range/Units 08:33 06:28 06:26 WBC 9.9 (4.8-10.8) K/uL RBC 4.38 L (4.40-5.90) Mil/uL Hgb 13.8 (12.0-18.0) g/dL Hct 41.0 (35.0-51.0) % MCV 93.7 (80.0-94.0) fL MCH 31.5 H (27.0-31.0) pg MCHC 33.6 (33.0-37.0) g/dL RDW 12.5 (11.5-14.5) % Plt Count 116 L (130-400) K/uL MPV 12.6 H (7.2-11.7) fL Neut % (Auto) 83.0 H (50.0-75.0) % Lymph % (Auto) 12.2 L (20.0-40.0) % Clay % (Auto) 3.7 (0.0-10.0) % Eos % (Auto) 0.7 (0.0-4.0) % Baso % (Auto) 0.4 (0.0-2.0) % Neut # (Auto) 8.2 H (1.8-7.0) K/uL Lymph # (Auto) 1.2 (1.0-4.3) K/uL Clay # (Auto) 0.4 (0.0-0.8) K/uL Eos # (Auto) 0.1 (0.0-0.7) K/uL Baso # (Auto) 0.0 (0.0-0.2) K/uL Sodium 149 H (132-148) mmol/L Potassium 4.3 (3.6-5.2) mmol/L Chloride 112 H (98-107) mmol/L Carbon Dioxide 24 (22-30) mmol/L Anion Gap 17 (10-20) BUN 36 H (9-20) mg/dL Creatinine 1.4 (0.8-1.5) mg/dL Est GFR ( Amer) > 60 Est GFR (Non-Af Amer) 51 POC Glucose (mg/dL) 368 H (65-110) mg/dL Random Glucose 441 H* D (75-110) mg/dL Calcium 8.5 L (8.6-10.4) mg/dl Total Bilirubin 0.6 (0.2-1.3) mg/dL AST 100 H D (17-59) U/L ALT 89 H D (21-72) U/L Alkaline Phosphatase 119 (38-126) U/L Total Protein 6.3 (6.3-8.3) g/dL Albumin 3.0 L (3.5-5.0) g/dL Globulin 3.3 (2.2-3.9) gm/dL Albumin/Globulin Ratio 0.9 L (1.0-2.1) 01/25/18 01/25/18 01/25/18 Range/Units 05:20 00:13 00:00 WBC (4.8-10.8) K/uL RBC (4.40-5.90) Mil/uL Hgb (12.0-18.0) g/dL Hct (35.0-51.0) % MCV (80.0-94.0) fL MCH (27.0-31.0) pg MCHC (33.0-37.0) g/dL RDW (11.5-14.5) % Plt Count (130-400) K/uL MPV (7.2-11.7) fL Neut % (Auto) (50.0-75.0) % Lymph % (Auto) (20.0-40.0) % Clay % (Auto) (0.0-10.0) % Eos % (Auto) (0.0-4.0) % Baso % (Auto) (0.0-2.0) % Neut # (Auto) (1.8-7.0) K/uL Lymph # (Auto) (1.0-4.3) K/uL Clay # (Auto) (0.0-0.8) K/uL Eos # (Auto) (0.0-0.7) K/uL Baso # (Auto) (0.0-0.2) K/uL Sodium 149 H (132-148) mmol/L Potassium 4.1 (3.6-5.2) mmol/L Chloride 112 H (98-107) mmol/L Carbon Dioxide 22 (22-30) mmol/L Anion Gap 19 (10-20) BUN 32 H (9-20) mg/dL Creatinine 1.2 (0.8-1.5) mg/dL Est GFR ( Amer) > 60 Est GFR (Non-Af Amer) > 60 POC Glucose (mg/dL) 386 H 299 H (65-110) mg/dL Random Glucose 353 H (75-110) mg/dL Calcium 7.9 L (8.6-10.4) mg/dl Total Bilirubin (0.2-1.3) mg/dL AST (17-59) U/L ALT (21-72) U/L Alkaline Phosphatase (38-126) U/L Total Protein (6.3-8.3) g/dL Albumin (3.5-5.0) g/dL Globulin (2.2-3.9) gm/dL Albumin/Globulin Ratio (1.0-2.1) 01/24/18 01/24/18 01/24/18 Range/Units 20:21 19:44 18:00 WBC (4.8-10.8) K/uL RBC (4.40-5.90) Mil/uL Hgb (12.0-18.0) g/dL Hct (35.0-51.0) % MCV (80.0-94.0) fL MCH (27.0-31.0) pg MCHC (33.0-37.0) g/dL RDW (11.5-14.5) % Plt Count (130-400) K/uL MPV (7.2-11.7) fL Neut % (Auto) (50.0-75.0) % Lymph % (Auto) (20.0-40.0) % Clay % (Auto) (0.0-10.0) % Eos % (Auto) (0.0-4.0) % Baso % (Auto) (0.0-2.0) % Neut # (Auto) (1.8-7.0) K/uL Lymph # (Auto) (1.0-4.3) K/uL Clay # (Auto) (0.0-0.8) K/uL Eos # (Auto) (0.0-0.7) K/uL Baso # (Auto) (0.0-0.2) K/uL Sodium (132-148) mmol/L Potassium (3.6-5.2) mmol/L Chloride (98-107) mmol/L Carbon Dioxide (22-30) mmol/L Anion Gap (10-20) BUN (9-20) mg/dL Creatinine (0.8-1.5) mg/dL Est GFR ( Amer) Est GFR (Non-Af Amer) POC Glucose (mg/dL) 236 H 221 H 237 H (65-110) mg/dL Random Glucose (75-110) mg/dL Calcium (8.6-10.4) mg/dl Total Bilirubin (0.2-1.3) mg/dL AST (17-59) U/L ALT (21-72) U/L Alkaline Phosphatase (38-126) U/L Total Protein (6.3-8.3) g/dL Albumin (3.5-5.0) g/dL Globulin (2.2-3.9) gm/dL Albumin/Globulin Ratio (1.0-2.1) 01/24/18 01/24/18 01/24/18 Range/Units 17:20 16:18 14:51 WBC (4.8-10.8) K/uL RBC (4.40-5.90) Mil/uL Hgb (12.0-18.0) g/dL Hct (35.0-51.0) % MCV (80.0-94.0) fL MCH (27.0-31.0) pg MCHC (33.0-37.0) g/dL RDW (11.5-14.5) % Plt Count (130-400) K/uL MPV (7.2-11.7) fL Neut % (Auto) (50.0-75.0) % Lymph % (Auto) (20.0-40.0) % Clay % (Auto) (0.0-10.0) % Eos % (Auto) (0.0-4.0) % Baso % (Auto) (0.0-2.0) % Neut # (Auto) (1.8-7.0) K/uL Lymph # (Auto) (1.0-4.3) K/uL Clay # (Auto) (0.0-0.8) K/uL Eos # (Auto) (0.0-0.7) K/uL Baso # (Auto) (0.0-0.2) K/uL Sodium (132-148) mmol/L Potassium (3.6-5.2) mmol/L Chloride (98-107) mmol/L Carbon Dioxide (22-30) mmol/L Anion Gap (10-20) BUN (9-20) mg/dL Creatinine (0.8-1.5) mg/dL Est GFR ( Amer) Est GFR (Non-Af Amer) POC Glucose (mg/dL) 258 H 260 H 226 H (65-110) mg/dL Random Glucose (75-110) mg/dL Calcium (8.6-10.4) mg/dl Total Bilirubin (0.2-1.3) mg/dL AST (17-59) U/L ALT (21-72) U/L Alkaline Phosphatase (38-126) U/L Total Protein (6.3-8.3) g/dL Albumin (3.5-5.0) g/dL Globulin (2.2-3.9) gm/dL Albumin/Globulin Ratio (1.0-2.1) 01/24/18 01/24/18 01/24/18 Range/Units 13:49 12:48 11:45 WBC (4.8-10.8) K/uL RBC (4.40-5.90) Mil/uL Hgb (12.0-18.0) g/dL Hct (35.0-51.0) % MCV (80.0-94.0) fL MCH (27.0-31.0) pg MCHC (33.0-37.0) g/dL RDW (11.5-14.5) % Plt Count (130-400) K/uL MPV (7.2-11.7) fL Neut % (Auto) (50.0-75.0) % Lymph % (Auto) (20.0-40.0) % Clay % (Auto) (0.0-10.0) % Eos % (Auto) (0.0-4.0) % Baso % (Auto) (0.0-2.0) % Neut # (Auto) (1.8-7.0) K/uL Lymph # (Auto) (1.0-4.3) K/uL Clay # (Auto) (0.0-0.8) K/uL Eos # (Auto) (0.0-0.7) K/uL Baso # (Auto) (0.0-0.2) K/uL Sodium (132-148) mmol/L Potassium (3.6-5.2) mmol/L Chloride (98-107) mmol/L Carbon Dioxide (22-30) mmol/L Anion Gap (10-20) BUN (9-20) mg/dL Creatinine (0.8-1.5) mg/dL Est GFR ( Amer) Est GFR (Non-Af Amer) POC Glucose (mg/dL) 223 H 227 H 242 H (65-110) mg/dL Random Glucose (75-110) mg/dL Calcium (8.6-10.4) mg/dl Total Bilirubin (0.2-1.3) mg/dL AST (17-59) U/L ALT (21-72) U/L Alkaline Phosphatase (38-126) U/L Total Protein (6.3-8.3) g/dL Albumin (3.5-5.0) g/dL Globulin (2.2-3.9) gm/dL Albumin/Globulin Ratio (1.0-2.1) 01/24/18 01/24/18 Range/Units 11:04 10:11 WBC (4.8-10.8) K/uL RBC (4.40-5.90) Mil/uL Hgb (12.0-18.0) g/dL Hct (35.0-51.0) % MCV (80.0-94.0) fL MCH (27.0-31.0) pg MCHC (33.0-37.0) g/dL RDW (11.5-14.5) % Plt Count (130-400) K/uL MPV (7.2-11.7) fL Neut % (Auto) (50.0-75.0) % Lymph % (Auto) (20.0-40.0) % Clay % (Auto) (0.0-10.0) % Eos % (Auto) (0.0-4.0) % Baso % (Auto) (0.0-2.0) % Neut # (Auto) (1.8-7.0) K/uL Lymph # (Auto) (1.0-4.3) K/uL Clay # (Auto) (0.0-0.8) K/uL Eos # (Auto) (0.0-0.7) K/uL Baso # (Auto) (0.0-0.2) K/uL Sodium (132-148) mmol/L Potassium (3.6-5.2) mmol/L Chloride (98-107) mmol/L Carbon Dioxide (22-30) mmol/L Anion Gap (10-20) BUN (9-20) mg/dL Creatinine (0.8-1.5) mg/dL Est GFR ( Amer) Est GFR (Non-Af Amer) POC Glucose (mg/dL) 218 H 212 H (65-110) mg/dL Random Glucose (75-110) mg/dL Calcium (8.6-10.4) mg/dl Total Bilirubin (0.2-1.3) mg/dL AST (17-59) U/L ALT (21-72) U/L Alkaline Phosphatase (38-126) U/L Total Protein (6.3-8.3) g/dL Albumin (3.5-5.0) g/dL Globulin (2.2-3.9) gm/dL Albumin/Globulin Ratio (1.0-2.1) Laboratory Results - last 24 hr 01/24/18 01/24/18 01/24/18 10:11 11:04 11:45 WBC RBC Hgb Hct MCV MCH MCHC RDW Plt Count MPV Neut % (Auto) Lymph % (Auto) Clay % (Auto) Eos % (Auto) Baso % (Auto) Neut # (Auto) Lymph # (Auto) Clay # (Auto) Eos # (Auto) Baso # (Auto) Sodium Potassium Chloride Carbon Dioxide Anion Gap BUN Creatinine Est GFR ( Amer) Est GFR (Non-Af Amer) POC Glucose (mg/dL) 212 H 218 H 242 H Random Glucose Calcium Total Bilirubin AST ALT Alkaline Phosphatase Total Protein Albumin Globulin Albumin/Globulin Ratio 01/24/18 01/24/18 01/24/18 12:48 13:49 14:51 WBC RBC Hgb Hct MCV MCH MCHC RDW Plt Count MPV Neut % (Auto) Lymph % (Auto) Clay % (Auto) Eos % (Auto) Baso % (Auto) Neut # (Auto) Lymph # (Auto) Clay # (Auto) Eos # (Auto) Baso # (Auto) Sodium Potassium Chloride Carbon Dioxide Anion Gap BUN Creatinine Est GFR ( Amer) Est GFR (Non-Af Amer) POC Glucose (mg/dL) 227 H 223 H 226 H Random Glucose Calcium Total Bilirubin AST ALT Alkaline Phosphatase Total Protein Albumin Globulin Albumin/Globulin Ratio 01/24/18 01/24/18 01/24/18 16:18 17:20 18:00 WBC RBC Hgb Hct MCV MCH MCHC RDW Plt Count MPV Neut % (Auto) Lymph % (Auto) Clay % (Auto) Eos % (Auto) Baso % (Auto) Neut # (Auto) Lymph # (Auto) Clay # (Auto) Eos # (Auto) Baso # (Auto) Sodium Potassium Chloride Carbon Dioxide Anion Gap BUN Creatinine Est GFR ( Amer) Est GFR (Non-Af Amer) POC Glucose (mg/dL) 260 H 258 H 237 H Random Glucose Calcium Total Bilirubin AST ALT Alkaline Phosphatase Total Protein Albumin Globulin Albumin/Globulin Ratio 01/24/18 01/24/18 01/25/18 19:44 20:21 00:00 WBC RBC Hgb Hct MCV MCH MCHC RDW Plt Count MPV Neut % (Auto) Lymph % (Auto) Clay % (Auto) Eos % (Auto) Baso % (Auto) Neut # (Auto) Lymph # (Auto) Clay # (Auto) Eos # (Auto) Baso # (Auto) Sodium Potassium Chloride Carbon Dioxide Anion Gap BUN Creatinine Est GFR ( Amer) Est GFR (Non-Af Amer) POC Glucose (mg/dL) 221 H 236 H 299 H Random Glucose Calcium Total Bilirubin AST ALT Alkaline Phosphatase Total Protein Albumin Globulin Albumin/Globulin Ratio 01/25/18 01/25/18 01/25/18 00:13 05:20 06:26 WBC RBC Hgb Hct MCV MCH MCHC RDW Plt Count MPV Neut % (Auto) Lymph % (Auto) Clay % (Auto) Eos % (Auto) Baso % (Auto) Neut # (Auto) Lymph # (Auto) Clay # (Auto) Eos # (Auto) Baso # (Auto) Sodium 149 H 149 H Potassium 4.1 4.3 Chloride 112 H 112 H Carbon Dioxide 22 24 Anion Gap 19 17 BUN 32 H 36 H Creatinine 1.2 1.4 Est GFR ( Amer) > 60 > 60 Est GFR (Non-Af Amer) > 60 51 POC Glucose (mg/dL) 386 H Random Glucose 353 H 441 H* D Calcium 7.9 L 8.5 L Total Bilirubin 0.6 AST 100 H D ALT 89 H D Alkaline Phosphatase 119 Total Protein 6.3 Albumin 3.0 L Globulin 3.3 Albumin/Globulin Ratio 0.9 L 01/25/18 01/25/18 06:28 08:33 WBC 9.9 RBC 4.38 L Hgb 13.8 Hct 41.0 MCV 93.7 MCH 31.5 H MCHC 33.6 RDW 12.5 Plt Count 116 L MPV 12.6 H Neut % (Auto) 83.0 H Lymph % (Auto) 12.2 L Clay % (Auto) 3.7 Eos % (Auto) 0.7 Baso % (Auto) 0.4 Neut # (Auto) 8.2 H Lymph # (Auto) 1.2 Clay # (Auto) 0.4 Eos # (Auto) 0.1 Baso # (Auto) 0.0 Sodium Potassium Chloride Carbon Dioxide Anion Gap BUN Creatinine Est GFR ( Amer) Est GFR (Non-Af Amer) POC Glucose (mg/dL) 368 H Random Glucose Calcium Total Bilirubin AST ALT Alkaline Phosphatase Total Protein Albumin Globulin Albumin/Globulin Ratio Fingerstick Blood Sugar Results: 368 Review of Systems - Review of Systems Systems not reviewed;Unavailable: Acuity of Condition Assessment/Plan - Assessment and Plan (Free Text) Assessment: 67 year old male with a past medical history of type 2 dm, hypertension, cva, s/ p cabg (8yrs ago), hyperlipidemia who was admitted to the ICU after being found unresponsive by daughter. Patient subsequently had a witnessed seizure while in the hospital and was transferred to the ICU for further monitoring . Plan: Neurology:New onset Seizures - EEG showed diffuse slowing is seen, suggestive of a diffuse abnormality of the brain. Some focal slowing was seen, suggestive of a focal abnormality. No seizures noted during the EEG recording. -Continue Keppra 1000 mg -Repeat CT of head showed no acute abnormalities -Neurology following. -Pending head MRI Hematology:Electrolyte imbalances -Elevated sodium. Will continue to monitor with serial CMP's. Cardiovascular: Hypertension -continue carvedilol and hydralazine Hematology: DVT of Right subclavian vein -Eliquis 10mg BID X 7 days held. Pending MRI results. Renal: Hypernatremia -Will continue to monitor with serial CMP's. Endocrinology:h/o Diabetes -Glargine 20 units qhs -SISS for coverage. GI:Tube feeding Continue Glucerna@50 ID no acute issues, stopping abx. GI proph - protonix DVT proph - heparin sq <Michaelle Leroy M - Last Filed: 01/25/18 17:34> CCU Objective - Vital Signs / Intake & Output Vital Signs (Last 4 hours): Vital Signs Temp Pulse Resp BP Pulse Ox 01/25/18 16:00 84 22 100 01/25/18 15:47 102.1 F H 01/25/18 15:30 95 H 13 157/50 H 01/25/18 15:00 73 37 H 94 L 01/25/18 14:30 76 36 H 152/47 H 94 L 01/25/18 14:00 81 38 H 93 L Intake and Output (Last 8hrs): Intake & Output 01/25/18 01/25/18 01/25/18 06:59 14:59 22:59 Intake Total 1600 600 150 Output Total 790 630 300 Balance 810 -30 -150 Weight 217 lb 13.944 oz Intake: Intake, IV Amount 400 200 Left Hand 400 200 Left Hand 2 0 Tube Feeding 400 100 TPN/PPN 300 150 Other 800 Output: Urine 790 630 300 Urethral (Stanley) 790 630 300 - Medications Active Medications: Active Medications Generic Name Dose Route Start Last Admin Trade Name Freq PRN Reason Stop Dose Admin Acetaminophen 650 mg 01/19/18 00:50 01/25/18 15:47 Tylenol 650mg/20.3ml Solution Ud NG 650 mg Q6 PRN Administration GIVE FOR TEMP. 100*F OR ABOVE Albuterol Sulfate 2.5 mg 01/16/18 14:45 01/25/18 11:19 Albuterol 0.083% Inhal Lynne (2.5 Mg/3 Ml) Ud IH 2.5 mg RQ6 SHINE Administration Aspirin 81 mg 01/17/18 10:00 01/25/18 09:16 Aspirin Chewable PO 81 mg DAILY [facility] Administration Carvedilol 12.5 mg 01/22/18 09:07 01/25/18 09:15 Coreg PO 12.5 mg BID [facility] Administration Heparin Sodium (Porcine) 5,000 units 01/17/18 14:00 01/23/18 15:08 Heparin SC Not Given Q8 [facility] Hydralazine HCl 50 mg 01/16/18 22:00 01/25/18 13:03 Apresoline PO 50 mg Q8 [facility] Administration Levetiracetam 1,000 mg/ Sodium 110 mls @ 440 mls/hr 01/22/18 10:00 01/25/18 10:22 Chloride IVPB 440 mls/hr Q12H [facility] Administration Dextrose 1,000 mls @ 100 mls/hr 01/25/18 10:19 01/25/18 10:38 Dextrose 5% In Water 1000 Ml IV 100 mls/hr .Q10H [facility] Administration Insulin Aspart 0 unit 01/22/18 00:00 01/23/18 08:19 Novolog SC 2 unit Q4H [facility] Administration Protocol Insulin Glargine 20 unit 01/20/18 17:13 01/22/18 21:01 Lantus SC 20 u HS [facility] Administration Insulin Human Regular 0 unit 01/25/18 07:47 01/25/18 12:09 Novolin R SC 10 unit Q6 [facility] Administration Protocol Pantoprazole Sodium 40 mg 01/21/18 12:00 01/25/18 09:13 Protonix Susp PO 40 mg 1000 SHINE Administration Rosuvastatin Calcium 10 mg 01/16/18 22:00 01/24/18 21:10 Crestor PO 10 mg HS [facility] Administration Sennosides 8.6 mg 01/17/18 14:00 01/25/18 09:15 Senokot Tab PO 8.6 mg DAILY [facility] Administration - Patient Studies Lab Studies: Microbiology Studies 01/22/18 14:00 Gram Stain - Final Back Wound Culture - Final Enterococcus Faecalis Coagulase Neg Staphylococcus 01/21/18 Unknown Blood Culture - Preliminary Blood-Venous NO GROWTH AFTER 3 DAYS 01/21/18 Unknown Blood Culture - Preliminary Blood-Venous NO GROWTH AFTER 3 DAYS Lab Studies 01/25/18 01/25/18 01/25/18 Range/Units 11:44 08:33 06:28 WBC 9.9 (4.8-10.8) K/uL RBC 4.38 L (4.40-5.90) Mil/uL Hgb 13.8 (12.0-18.0) g/dL Hct 41.0 (35.0-51.0) % MCV 93.7 (80.0-94.0) fL MCH 31.5 H (27.0-31.0) pg MCHC 33.6 (33.0-37.0) g/dL RDW 12.5 (11.5-14.5) % Plt Count 116 L (130-400) K/uL MPV 12.6 H (7.2-11.7) fL Neut % (Auto) 83.0 H (50.0-75.0) % Lymph % (Auto) 12.2 L (20.0-40.0) % Clay % (Auto) 3.7 (0.0-10.0) % Eos % (Auto) 0.7 (0.0-4.0) % Baso % (Auto) 0.4 (0.0-2.0) % Neut # (Auto) 8.2 H (1.8-7.0) K/uL Lymph # (Auto) 1.2 (1.0-4.3) K/uL Clay # (Auto) 0.4 (0.0-0.8) K/uL Eos # (Auto) 0.1 (0.0-0.7) K/uL Baso # (Auto) 0.0 (0.0-0.2) K/uL Sodium (132-148) mmol/L Potassium (3.6-5.2) mmol/L Chloride (98-107) mmol/L Carbon Dioxide (22-30) mmol/L Anion Gap (10-20) BUN (9-20) mg/dL Creatinine (0.8-1.5) mg/dL Est GFR ( Amer) Est GFR (Non-Af Amer) POC Glucose (mg/dL) 366 H 368 H (65-110) mg/dL Random Glucose (75-110) mg/dL Calcium (8.6-10.4) mg/dl Total Bilirubin (0.2-1.3) mg/dL AST (17-59) U/L ALT (21-72) U/L Alkaline Phosphatase (38-126) U/L Total Protein (6.3-8.3) g/dL Albumin (3.5-5.0) g/dL Globulin (2.2-3.9) gm/dL Albumin/Globulin Ratio (1.0-2.1) 01/25/18 01/25/18 01/25/18 Range/Units 06:26 05:20 00:13 WBC (4.8-10.8) K/uL RBC (4.40-5.90) Mil/uL Hgb (12.0-18.0) g/dL Hct (35.0-51.0) % MCV (80.0-94.0) fL MCH (27.0-31.0) pg MCHC (33.0-37.0) g/dL RDW (11.5-14.5) % Plt Count (130-400) K/uL MPV (7.2-11.7) fL Neut % (Auto) (50.0-75.0) % Lymph % (Auto) (20.0-40.0) % Clay % (Auto) (0.0-10.0) % Eos % (Auto) (0.0-4.0) % Baso % (Auto) (0.0-2.0) % Neut # (Auto) (1.8-7.0) K/uL Lymph # (Auto) (1.0-4.3) K/uL Clay # (Auto) (0.0-0.8) K/uL Eos # (Auto) (0.0-0.7) K/uL Baso # (Auto) (0.0-0.2) K/uL Sodium 149 H 149 H (132-148) mmol/L Potassium 4.3 4.1 (3.6-5.2) mmol/L Chloride 112 H 112 H (98-107) mmol/L Carbon Dioxide 24 22 (22-30) mmol/L Anion Gap 17 19 (10-20) BUN 36 H 32 H (9-20) mg/dL Creatinine 1.4 1.2 (0.8-1.5) mg/dL Est GFR ( Amer) > 60 > 60 Est GFR (Non-Af Amer) 51 > 60 POC Glucose (mg/dL) 386 H (65-110) mg/dL Random Glucose 441 H* D 353 H (75-110) mg/dL Calcium 8.5 L 7.9 L (8.6-10.4) mg/dl Total Bilirubin 0.6 (0.2-1.3) mg/dL AST 100 H D (17-59) U/L ALT 89 H D (21-72) U/L Alkaline Phosphatase 119 (38-126) U/L Total Protein 6.3 (6.3-8.3) g/dL Albumin 3.0 L (3.5-5.0) g/dL Globulin 3.3 (2.2-3.9) gm/dL Albumin/Globulin Ratio 0.9 L (1.0-2.1) 01/25/18 01/24/18 01/24/18 Range/Units 00:00 20:21 19:44 WBC (4.8-10.8) K/uL RBC (4.40-5.90) Mil/uL Hgb (12.0-18.0) g/dL Hct (35.0-51.0) % MCV (80.0-94.0) fL MCH (27.0-31.0) pg MCHC (33.0-37.0) g/dL RDW (11.5-14.5) % Plt Count (130-400) K/uL MPV (7.2-11.7) fL Neut % (Auto) (50.0-75.0) % Lymph % (Auto) (20.0-40.0) % Clay % (Auto) (0.0-10.0) % Eos % (Auto) (0.0-4.0) % Baso % (Auto) (0.0-2.0) % Neut # (Auto) (1.8-7.0) K/uL Lymph # (Auto) (1.0-4.3) K/uL Clay # (Auto) (0.0-0.8) K/uL Eos # (Auto) (0.0-0.7) K/uL Baso # (Auto) (0.0-0.2) K/uL Sodium (132-148) mmol/L Potassium (3.6-5.2) mmol/L Chloride (98-107) mmol/L Carbon Dioxide (22-30) mmol/L Anion Gap (10-20) BUN (9-20) mg/dL Creatinine (0.8-1.5) mg/dL Est GFR ( Amer) Est GFR (Non-Af Amer) POC Glucose (mg/dL) 299 H 236 H 221 H (65-110) mg/dL Random Glucose (75-110) mg/dL Calcium (8.6-10.4) mg/dl Total Bilirubin (0.2-1.3) mg/dL AST (17-59) U/L ALT (21-72) U/L Alkaline Phosphatase (38-126) U/L Total Protein (6.3-8.3) g/dL Albumin (3.5-5.0) g/dL Globulin (2.2-3.9) gm/dL Albumin/Globulin Ratio (1.0-2.1) 01/24/18 Range/Units 18:00 WBC (4.8-10.8) K/uL RBC (4.40-5.90) Mil/uL Hgb (12.0-18.0) g/dL Hct (35.0-51.0) % MCV (80.0-94.0) fL MCH (27.0-31.0) pg MCHC (33.0-37.0) g/dL RDW (11.5-14.5) % Plt Count (130-400) K/uL MPV (7.2-11.7) fL Neut % (Auto) (50.0-75.0) % Lymph % (Auto) (20.0-40.0) % Clay % (Auto) (0.0-10.0) % Eos % (Auto) (0.0-4.0) % Baso % (Auto) (0.0-2.0) % Neut # (Auto) (1.8-7.0) K/uL Lymph # (Auto) (1.0-4.3) K/uL Clay # (Auto) (0.0-0.8) K/uL Eos # (Auto) (0.0-0.7) K/uL Baso # (Auto) (0.0-0.2) K/uL Sodium (132-148) mmol/L Potassium (3.6-5.2) mmol/L Chloride (98-107) mmol/L Carbon Dioxide (22-30) mmol/L Anion Gap (10-20) BUN (9-20) mg/dL Creatinine (0.8-1.5) mg/dL Est GFR ( Amer) Est GFR (Non-Af Amer) POC Glucose (mg/dL) 237 H (65-110) mg/dL Random Glucose (75-110) mg/dL Calcium (8.6-10.4) mg/dl Total Bilirubin (0.2-1.3) mg/dL AST (17-59) U/L ALT (21-72) U/L Alkaline Phosphatase (38-126) U/L Total Protein (6.3-8.3) g/dL Albumin (3.5-5.0) g/dL Globulin (2.2-3.9) gm/dL Albumin/Globulin Ratio (1.0-2.1) Laboratory Results - last 24 hr 01/24/18 01/24/18 01/24/18 18:00 19:44 20:21 WBC RBC Hgb Hct MCV MCH MCHC RDW Plt Count MPV Neut % (Auto) Lymph % (Auto) Clay % (Auto) Eos % (Auto) Baso % (Auto) Neut # (Auto) Lymph # (Auto) Clay # (Auto) Eos # (Auto) Baso # (Auto) Sodium Potassium Chloride Carbon Dioxide Anion Gap BUN Creatinine Est GFR ( Amer) Est GFR (Non-Af Amer) POC Glucose (mg/dL) 237 H 221 H 236 H Random Glucose Calcium Total Bilirubin AST ALT Alkaline Phosphatase Total Protein Albumin Globulin Albumin/Globulin Ratio 01/25/18 01/25/18 01/25/18 00:00 00:13 05:20 WBC RBC Hgb Hct MCV MCH MCHC RDW Plt Count MPV Neut % (Auto) Lymph % (Auto) Clay % (Auto) Eos % (Auto) Baso % (Auto) Neut # (Auto) Lymph # (Auto) Clay # (Auto) Eos # (Auto) Baso # (Auto) Sodium 149 H Potassium 4.1 Chloride 112 H Carbon Dioxide 22 Anion Gap 19 BUN 32 H Creatinine 1.2 Est GFR ( Amer) > 60 Est GFR (Non-Af Amer) > 60 POC Glucose (mg/dL) 299 H 386 H Random Glucose 353 H Calcium 7.9 L Total Bilirubin AST ALT Alkaline Phosphatase Total Protein Albumin Globulin Albumin/Globulin Ratio 01/25/18 01/25/18 01/25/18 06:26 06:28 08:33 WBC 9.9 RBC 4.38 L Hgb 13.8 Hct 41.0 MCV 93.7 MCH 31.5 H MCHC 33.6 RDW 12.5 Plt Count 116 L MPV 12.6 H Neut % (Auto) 83.0 H Lymph % (Auto) 12.2 L Clay % (Auto) 3.7 Eos % (Auto) 0.7 Baso % (Auto) 0.4 Neut # (Auto) 8.2 H Lymph # (Auto) 1.2 Clay # (Auto) 0.4 Eos # (Auto) 0.1 Baso # (Auto) 0.0 Sodium 149 H Potassium 4.3 Chloride 112 H Carbon Dioxide 24 Anion Gap 17 BUN 36 H Creatinine 1.4 Est GFR ( Amer) > 60 Est GFR (Non-Af Amer) 51 POC Glucose (mg/dL) 368 H Random Glucose 441 H* D Calcium 8.5 L Total Bilirubin 0.6 AST 100 H D ALT 89 H D Alkaline Phosphatase 119 Total Protein 6.3 Albumin 3.0 L Globulin 3.3 Albumin/Globulin Ratio 0.9 L 01/25/18 11:44 WBC RBC Hgb Hct MCV MCH MCHC RDW Plt Count MPV Neut % (Auto) Lymph % (Auto) Clay % (Auto) Eos % (Auto) Baso % (Auto) Neut # (Auto) Lymph # (Auto) Clay # (Auto) Eos # (Auto) Baso # (Auto) Sodium Potassium Chloride Carbon Dioxide Anion Gap BUN Creatinine Est GFR ( Amer) Est GFR (Non-Af Amer) POC Glucose (mg/dL) 366 H Random Glucose Calcium Total Bilirubin AST ALT Alkaline Phosphatase Total Protein Albumin Globulin Albumin/Globulin Ratio Assessment/Plan - Assessment and Plan (Free Text) Plan: Above resident note reviewed and verified. Patient with dx f seizures -intubated for airway protection -patient is tolerating CPAP but not neurologically able to protect airway -awaiting keppra level and MRI brain. d/w social security specialist and certified nursing assistant -anticipated transfer to [place] for MRI brain -neurology input appreciated. - Date & Time Date: 01/25/18 Time: 11:00
[2018-01-25] MEDS: levETIRAcetam 1,000 MG in Sodium Chloride 0.9% 100 ML IVPB SCH ×2 (10:22→21:18)
--- NOTE | 2018-01-25 11:34 | CP.PCM.PN ---
<Saleem Calhoun - Last Filed: 01/25/18 16:38> Subjective - Date & Time of Evaluation Date of Evaluation: 01/25/18 Time of Evaluation: 10:45 - Subjective Subjective: Neurology progress note for Dr. Baldwin Patient seen and examined. Patient remains responsive to painful and auditory stimuli and is able to move his extremities spontaneously. Could not obtain ROS. Objective - Vital Signs/Intake and Output Vital Signs (last 24 hours): Temp Pulse Resp BP Pulse Ox 100.1 F H 81 39 H 139/53 L 90 L 01/25/18 09:00 01/25/18 11:00 01/25/18 11:00 01/25/18 10:29 01/25/18 11:00 Intake and Output: 01/25/18 01/25/18 06:59 18:59 Intake Total 2506 400 Output Total 1130 230 Balance 1376 170 - Medications Medications: Current Medications Acetaminophen (Tylenol 650mg/20.3ml Solution Ud) 650 mg NG Q6 PRN PRN Reason: GIVE FOR TEMP. 100*F OR ABOVE Last Admin: 01/25/18 08:50 Dose: 650 mg Albuterol Sulfate (Albuterol 0.083% Inhal Lynne (2.5 Mg/3 Ml) Ud) 2.5 mg IH RQ6 [facility] Last Admin: 01/25/18 11:19 Dose: 2.5 mg Aspirin (Aspirin Chewable) 81 mg PO DAILY [facility] Last Admin: 01/25/18 09:16 Dose: 81 mg Carvedilol (Coreg) 12.5 mg PO BID [facility] Last Admin: 01/25/18 09:15 Dose: 12.5 mg Heparin Sodium (Porcine) (Heparin) 5,000 units SC Q8 [facility] Last Admin: 01/23/18 15:08 Dose: Not Given Hydralazine HCl (Apresoline) 50 mg PO Q8 [facility] Last Admin: 01/25/18 06:02 Dose: 50 mg Levetiracetam 1,000 mg/ Sodium (Chloride) 110 mls @ 440 mls/hr IVPB Q12H [facility] Last Admin: 01/25/18 10:22 Dose: 440 mls/hr Dextrose (Dextrose 5% In Water 1000 Ml) 1,000 mls @ 100 mls/hr IV .Q10H [facility] Insulin Aspart (Novolog) 0 unit SC Q4H [facility] PRN Reason: Protocol Last Admin: 01/23/18 08:19 Dose: 2 unit Insulin Glargine (Lantus) 20 unit SC [facility] Last Admin: 01/22/18 21:01 Dose: 20 u Insulin Human Regular (Novolin R) 0 unit SC Q6 [facility] PRN Reason: Protocol Last Admin: 01/25/18 08:50 Dose: 10 unit Pantoprazole Sodium (Protonix Susp) 40 mg PO 1000 [facility] Last Admin: 01/25/18 09:13 Dose: 40 mg Rosuvastatin Calcium (Crestor) 10 mg PO HS [facility] Last Admin: 01/24/18 21:10 Dose: 10 mg Sennosides (Senokot Tab) 8.6 mg PO DAILY [facility] Last Admin: 01/25/18 09:15 Dose: 8.6 mg - Labs Labs: 01/25/18 06:28 01/25/18 06:26 PT 10.6 SECONDS (9.7-12.2) 01/16/18 12:27 INR 0.9 01/16/18 12:27 APTT 33 SECONDS (21-34) 01/16/18 12:27 - Additional Findings Additional findings: - Constitutional Appears: Non-toxic, No Acute Distress - Head Exam Head Exam: ATRAUMATIC - ENT Exam ENT Exam: Mucous Membranes Moist - Respiratory Exam Respiratory Exam: Clear to Ausculation Bilateral. absent: Rales, Rhonchi, Wheezes Additional comments: On Mechanical ventilation PRVC - Cardiovascular Exam Cardiovascular Exam: REGULAR RHYTHM, +S1, +S2 - GI/Abdominal Exam GI & Abdominal Exam: Soft. absent: Distended, Tenderness - Neurological Exam Neurological Exam: absent: Alert, Awake, CN II-XII Intact, Oriented x3 Additional comments: Responsive to auditory and painful stimuli. Left pupil 3 mm non-reacting to light. Right pupil 2 mm reacting to light corneal and gag reflex intact - Psychiatric Exam Psychiatric exam: absent: Normal Affect, Normal Mood - Skin Skin Exam: Dry, Warm Assessment and Plan - Assessment and Plan (Free Text) Assessment: This is a 67 year old male with PMHx multiple CVA which are likely contributing to his new onset seizures. Plan: 1. New onset Seizures - EEG showed diffuse slowing is seen, suggestive of a diffuse abnormality of the brain. Some focal slowing was seen, suggestive of a focal abnormality. No seizures noted during the EEG recording. - Continue Keppra 1000 mg - Repeat CT of head showed no acute abnormalities - Prior insults are likely causing this new onset of seizures. - Repeat EEG shows no seizure activity - Awaiting MRI brain for further evaluation - Consider Modafinil Discussed with Dr. Baldwin <Elder Baldwin - Last Filed: 01/25/18 16:56> Objective - Vital Signs/Intake and Output Vital Signs (last 24 hours): Temp Pulse Resp BP Pulse Ox 102.1 F H 84 22 157/50 H 100 01/25/18 15:47 01/25/18 16:00 01/25/18 16:00 01/25/18 15:30 01/25/18 16:00 Intake and Output: 01/25/18 01/25/18 06:59 18:59 Intake Total 2506 650 Output Total 1130 730 Balance 1376 -80 - Medications Medications: Current Medications Acetaminophen (Tylenol 650mg/20.3ml Solution Ud) 650 mg NG Q6 PRN PRN Reason: GIVE FOR TEMP. 100*F OR ABOVE Last Admin: 01/25/18 15:47 Dose: 650 mg Albuterol Sulfate (Albuterol 0.083% Inhal Lynne (2.5 Mg/3 Ml) Ud) 2.5 mg IH RQ6 [facility] Last Admin: 01/25/18 11:19 Dose: 2.5 mg Aspirin (Aspirin Chewable) 81 mg PO DAILY [facility] Last Admin: 01/25/18 09:16 Dose: 81 mg Carvedilol (Coreg) 12.5 mg PO BID [facility] Last Admin: 01/25/18 09:15 Dose: 12.5 mg Heparin Sodium (Porcine) (Heparin) 5,000 units SC Q8 [facility] Last Admin: 01/23/18 15:08 Dose: Not Given Hydralazine HCl (Apresoline) 50 mg PO Q8 [facility] Last Admin: 01/25/18 13:03 Dose: 50 mg Levetiracetam 1,000 mg/ Sodium (Chloride) 110 mls @ 440 mls/hr IVPB Q12H [facility] Last Admin: 01/25/18 10:22 Dose: 440 mls/hr Dextrose (Dextrose 5% In Water 1000 Ml) 1,000 mls @ 100 mls/hr IV .Q10H [facility] Last Admin: 01/25/18 10:38 Dose: 100 mls/hr Insulin Aspart (Novolog) 0 unit SC Q4H [facility] PRN Reason: Protocol Last Admin: 01/23/18 08:19 Dose: 2 unit Insulin Glargine (Lantus) 20 unit SC HS [facility] Last Admin: 01/22/18 21:01 Dose: 20 u Insulin Human Regular (Novolin R) 0 unit SC Q6 [facility] PRN Reason: Protocol Last Admin: 01/25/18 12:09 Dose: 10 unit Pantoprazole Sodium (Protonix Susp) 40 mg PO 1000 [facility] Last Admin: 01/25/18 09:13 Dose: 40 mg Rosuvastatin Calcium (Crestor) 10 mg PO HS [facility] Last Admin: 01/24/18 21:10 Dose: 10 mg Sennosides (Senokot Tab) 8.6 mg PO DAILY [facility] Last Admin: 01/25/18 09:15 Dose: 8.6 mg - Labs Labs: 01/25/18 06:28 01/25/18 06:26 PT 10.6 SECONDS (9.7-12.2) 01/16/18 12:27 INR 0.9 01/16/18 12:27 APTT 33 SECONDS (21-34) 01/16/18 12:27
[2018-01-25] MEDS ORDERED: Insulin Human Regular 100 UNIT in Sodium Chloride 0.9% 99 ML SC SCH (18:00)
[2018-01-25] MEDS: Insulin Human Regular 100 UNIT in Sodium Chloride 0.9% 99 ML IV SCH ×2 (18:59→23:57)
[2018-01-25] MEDS: (Lantus) Insulin Glargine, Recombinant SC SCH (21:14)
--- NOTE | 2018-01-25 23:44 | CP.PCM.PN ---
Subjective - Date & Time of Evaluation Date of Evaluation: 01/25/18 Time of Evaluation: 18:25 - Subjective Subjective: PT SEEN AND EXAMINED AT BEDSIDE Objective - Vital Signs/Intake and Output Vital Signs (last 24 hours): Temp Pulse Resp BP Pulse Ox 98.4 F 69 25 H 122/55 L 95 01/25/18 20:00 01/25/18 23:00 01/25/18 23:00 01/25/18 22:29 01/25/18 23:00 Intake and Output: 01/25/18 01/26/18 18:59 06:59 Intake Total 800 289 Output Total 1150 350 Balance -350 -61 - Medications Medications: Current Medications Acetaminophen (Tylenol 650mg/20.3ml Solution Ud) 650 mg NG Q6 PRN PRN Reason: GIVE FOR TEMP. 100*F OR ABOVE Last Admin: 01/25/18 15:47 Dose: 650 mg Albuterol Sulfate (Albuterol 0.083% Inhal Lynne (2.5 Mg/3 Ml) Ud) 2.5 mg IH RQ6 [facility] Last Admin: 01/25/18 19:50 Dose: 2.5 mg Aspirin (Aspirin Chewable) 81 mg PO DAILY [facility] Last Admin: 01/25/18 09:16 Dose: 81 mg Carvedilol (Coreg) 12.5 mg PO BID [facility] Last Admin: 01/25/18 09:15 Dose: 12.5 mg Heparin Sodium (Porcine) (Heparin) 5,000 units SC Q8 [facility] Last Admin: 01/23/18 15:08 Dose: Not Given Hydralazine HCl (Apresoline) 50 mg PO Q8 [facility] Last Admin: 01/25/18 21:14 Dose: 50 mg Levetiracetam 1,000 mg/ Sodium (Chloride) 110 mls @ 440 mls/hr IVPB Q12H [facility] Last Admin: 01/25/18 21:18 Dose: 440 mls/hr Dextrose (Dextrose 5% In Water 1000 Ml) 1,000 mls @ 100 mls/hr IV .Q10H [facility] Last Admin: 01/25/18 21:14 Dose: 100 mls/hr Insulin Human Regular 100 unit (/ Sodium Chloride) 100 mls @ 1.97 mls/hr IV .Q24H [facility]; 0.02 UNIT/KG/HR PRN Reason: Protocol Last Titration: 01/25/18 23:00 Dose: 0.07 unit/kg/hr, 7 mls/hr Insulin Glargine (Lantus) 20 unit SC Q12 [facility] Last Admin: 01/25/18 21:14 Dose: 20 units Pantoprazole Sodium (Protonix Susp) 40 mg PO 1000 [facility] Last Admin: 01/25/18 09:13 Dose: 40 mg Rosuvastatin Calcium (Crestor) 10 mg PO HS [facility] Last Admin: 01/25/18 21:14 Dose: 10 mg Sennosides (Senokot Tab) 8.6 mg PO DAILY [facility] Last Admin: 01/25/18 09:15 Dose: 8.6 mg - Labs Labs: 01/25/18 06:28 01/25/18 06:26 PT 10.6 SECONDS (9.7-12.2) 01/16/18 12:27 INR 0.9 01/16/18 12:27 APTT 33 SECONDS (21-34) 01/16/18 12:27 Assessment and Plan (1) Status epilepticus Status: Acute (2) COPD (chronic obstructive pulmonary disease) Status: Acute (3) Congestive heart failure Status: Acute (4) Diabetes Status: Acute (5) Hypernatremia Status: Acute
[2018-01-26] MEDS: Albuterol 0.083% Inhal Sol (2.5 mg/3 mL) UD IH SCH ×3 (01:02→13:39)
[2018-01-26 05:36] LABS: ARTERIAL BLOOD GAS HCO3 26.2 mmol/L (21-28); ARTERIAL BLOOD GAS HEMOGLOBIN 12.8 g/dL (11.7-17.4); ARTERIAL BLOOD GAS O2 SAT 95.9 % (95-98); ARTERIAL BLOOD GAS PCO2 38 mm/Hg (35-45); ARTERIAL BLOOD GAS PH 7.44 (7.35-7.45); ARTERIAL BLOOD GAS PO2 69 mm/Hg (80-100)
[2018-01-26 06:26] LABS: BASO % 0.2 % (0.0-2.0); EOS # 0.1 K/uL (0.0-0.7); HEMOGLOBIN 12.9 g/dL (12.0-18.0); LYMPH # 1.3 K/uL (1.0-4.3); LYMPH % 12.6 % (20.0-40.0); MEAN CELL VOLUME 92.2 fL (80.0-94.0); MEAN CORPUSCULAR HEMOGLOBIN 31.4 pg (27.0-31.0); MEAN PLATELET VOLUME 12.9 fL (7.2-11.7); MONO # 0.4 K/uL (0.0-0.8); MONO % 4.1 % (0.0-10.0); NEUT # 8.7 K/uL (1.8-7.0); NEUT % 82.1 % (50.0-75.0); RBC 4.1 Mil/uL (4.40-5.90); RED CELL DISTRIBUTION WIDTH 12.2 % (11.5-14.5); WHITE BLOOD COUNT 10.6 K/uL (4.8-10.8)
[2018-01-26 06:46] LABS: ALB/GLOB RATIO 0.9 (1.0-2.1); ALBUMIN 2.9 g/dL (3.5-5.0); ALT/SGPT 85 U/L (21-72); AST/SGOT 73 U/L (17-59); BLOOD UREA NITROGEN 37 mg/dL (9-20); CALCIUM 8.3 mg/dl (8.6-10.4); GFR AFRICAN-AMERICAN > 60; GFR NON-AFRICAN AMERICAN 55
--- NOTE | 2018-01-26 07:20 | PN ---
DATE: 01/25/2018 FOLLOWUP RENAL CONSULTATION LOCATION: The patient is located in ICU, bed 5. REQUESTED BY: Arash Rose MD REASON FOR FOLLOWUP: Acute renal failure, hypernatremia, altered mental status. HISTORY OF PRESENT ILLNESS: Mr. Latif is 67 years old elderly male with a past medical history significant for longstanding hypertension, diabetes, CVA, hyperlipidemia, was admitted with altered mental status. The patient was found on the bed with altered mental status by the family. Subsequently, the patient was brought to the emergency room and has a witnessed seizure, status post intubation for airway protection. The patient is spiking on and off. The patient remains intubated, not responding to verbal stimuli, slightly opens eyes, not following commands. PHYSICAL EXAMINATION: VITAL SIGNS: As follows. He has blood pressure of 139/53, pulse 89, respirations 28, saturation 96%, temperature this morning is 100.9. GENERAL: Mr. Latif is 67 years old elderly male with altered mental status, on ventilator. HEENT: Pupils normal and reactive to light. Conjunctivae pink. Sclerae anicteric. Trachea is midline. LUNGS: Symmetric on both sides. Bilateral breath sounds present. No crackles. CVS: [place] at the fifth intercostal space, midclavicular line. S1, S2 audible. No murmur or gallop. ABDOMEN: Normal in appearance, soft, tympanic. No guarding. No rigidity. No hepatosplenomegaly. HOSE CEMENTER: The patient is on ventilator, not following commands. EXTREMITIES: No cyanosis, no clubbing, no edema. MEDICATIONS: His current medications include as follows, DuoNeb inhaler q.6 hours, hydralazine 50 mg p.o. q.8 hours, aspirin 81 mg daily, Coreg 12.5 mg p.o. b.i.d., Crestor 10 mg at bedtime, IV fluids D5W at 100 mL/hour, subcu heparin on hold, Lantus 20 units subcu q.12 hours, Keppra 1000 mg q.12 hours, Protonix 40 mg daily, Senokot 8.6 mg p.o. daily, Tylenol. His I's and O's, intake is 6067 and output is 2480. LABORATORY DATA: Include as follows: As of 01/25/2018, WBC 9.9, hemoglobin 13.8, hematocrit is 41, platelets 116. Sodium 149, potassium 4.3, chloride 112, CO of 24, BUN 36, creatinine 1.4, glucose 441, calcium 8.5. Total bili 0.6, AST 100, ALT 89, alkaline phosphatase 119, total protein 6.3, albumin is 3.0. As of 01/21/2018, tracheal aspiration positive for Staph aureus and wound culture positive for enterococcus faecalis and Staph coag negative. Blood culture as of 01/21/2018 negative day four x2; and blood culture as of 01/17/2018, negative day five x2. Chest x-ray, stable tubes and lines, no significant interval change. Duplex scan of the upper extremity artery is acute occlusive deep vein thrombosis of the right subclavian vein with severe reduction of the venous return, superficial thrombophlebitis of the right cephalic vein at upper arm and proximal forearm levels. IMPRESSION: In summary, Mr. Latif is a 67 years old elderly male with history of hypertension, diabetes, hyperlipidemia, CVA who was admitted with altered mental status and witnessed seizures, status post intubation with increased serum sodium and increased BUN and creatinine, fever, and positive for deep venous thrombosis of the right subclavian vein. 1. Hypernatremia, secondary to intravascular depletion. 2. Acute renal failure on chronic kidney disease, most likely secondary to intravascular depletion. 3. Fever. 4. Deep venous thrombosis, right subclavian vein. 5. Altered mental status, etiology is not clear, rule out anoxic encephalopathy. PLAN: Continue IV fluids D5W at 100 mL/hour. Continue free water 400 mL q.4 hours, and consider to treat DVT if there is no contraindication from the neurology point. We will follow with you. Thank you for allowing me to participate in your patient's care. Case discussed with Dr. Arash Rose and also ICU nurse in rounds. Consider to avoid half-normal saline, normal saline, Ringer's lactate at this time due to hypernatremia. Thank you for allowing me to participate in your patient's care. Discussed with Dr. Michaelle Leroy in rounds this morning and corrected sodium was 153 to 154. Baldemar Ruiz MD MTDD
[2018-01-26] MEDS: levETIRAcetam 1,000 MG in Sodium Chloride 0.9% 100 ML IVPB SCH ×3 (07:47→21:07)
[2018-01-26] MEDS: Acetaminophen 650mg/20.3ml solution UD NG PRN ×2 (07:51→16:13)
[2018-01-26] MEDS: Pantoprazole 40 mg Susp UD PO SCH (10:28)
[2018-01-26] MEDS: (Lantus) Insulin Glargine, Recombinant SC SCH ×2 (10:29→21:08)
--- NOTE | 2018-01-26 11:05 | CP.CCUPN ---
CCU Subjective - Physician Review Subjective (Free Text): 01/23/18 09:27 Patient seen and examined at bedside. Per nursing no acute events occurred overnight. 01/25/18 10:17 Patient seen and examined at bedside. Per nursing no acute events occurred overnight. 01/26/18 11:03 Patient seen and examined at bedside. Per nursing no acute events occurred overnight. Critical Care Time Spent (in minutes): 40 CCU Objective - Vital Signs / Intake & Output Vital Signs (Last 4 hours): Vital Signs Temp BP 01/26/18 10:28 155/75 H 01/26/18 08:41 98.9 F 01/26/18 07:51 99.4 F Intake and Output (Last 8hrs): Intake & Output 01/25/18 01/26/18 01/26/18 22:59 06:59 14:59 Intake Total 1235 1836 7 Output Total 850 520 Balance 385 1316 7 Weight 216 lb Intake: IV 80 35 7 Intake, IV Amount 355 951 Left Antecubital 55 51 Left Hand 300 900 TPN/PPN 400 450 Other 400 400 Output: Urine 850 520 Urethral (Stanley) 850 520 Other: # Bowel Movements 1 1 - Physical Exam Head: Positive for: Atraumatic, Normocephalic Pupils: Positive for: Other (corneal reflex) Mouth: Positive for: Other (trach in place) Neck: Positive for: Normal Range of Motion Respiratory/Chest: Positive for: Clear to Auscultation. Negative for: Respiratory Distress Cardiovascular: Positive for: Regular Rate and Rhythm, Normal S1, S2. Negative for: Tachycardic Abdomen: Positive for: Normal Bowel Sounds, Other (obese). Negative for: Tenderness, Distention, Peritoneal Signs Lower Extremity: Positive for: Normal Inspection Neurological: Positive for: Other (patient resists both upper extremities upon examination.) Skin: Positive for: Dry - Medications Active Medications: Active Medications Generic Name Dose Route Start Last Admin Trade Name Freq PRN Reason Stop Dose Admin Acetaminophen 650 mg 01/19/18 00:50 01/26/18 07:51 Tylenol 650mg/20.3ml Solution Ud NG 650 mg Q6 PRN Administration GIVE FOR TEMP. 100*F OR ABOVE Albuterol Sulfate 2.5 mg 01/16/18 14:45 01/26/18 07:45 Albuterol 0.083% Inhal Lynne (2.5 Mg/3 Ml) Ud IH 2.5 mg RQ6 [facility] Administration Aspirin 81 mg 01/17/18 10:00 01/26/18 10:28 Aspirin Chewable PO 81 mg DAILY [facility] Administration Carvedilol 12.5 mg 01/22/18 09:07 01/26/18 10:28 Coreg PO 12.5 mg BID [facility] Administration Heparin Sodium (Porcine) 5,000 units 01/17/18 14:00 01/23/18 15:08 Heparin SC Not Given Q8 [facility] Hydralazine HCl 50 mg 01/16/18 22:00 01/26/18 05:56 Apresoline PO 50 mg Q8 [facility] Administration Levetiracetam 1,000 mg/ Sodium 110 mls @ 440 mls/hr 01/22/18 10:00 01/26/18 10:00 Chloride IVPB Not Given Q12H [facility] Dextrose 1,000 mls @ 100 mls/hr 01/25/18 10:19 01/26/18 05:56 Dextrose 5% In Water 1000 Ml IV Not Given .Q10H [facility] Insulin Human Regular 100 unit 100 mls @ 1.97 mls/hr 01/25/18 18:44 01/26/18 10:20 / Sodium Chloride IV 0.2 unit/kg/hr .Q24H [facility] 20 mls/hr Protocol Titration 0.02 UNIT/KG/HR Insulin Glargine 20 unit 01/25/18 22:00 01/26/18 10:29 Lantus SC 20 units Q12 [facility] Administration Pantoprazole Sodium 40 mg 01/21/18 12:00 01/26/18 10:28 Protonix Susp PO 40 mg 1000 [facility] Administration Rosuvastatin Calcium 10 mg 01/16/18 22:00 01/25/18 21:14 Crestor PO 10 mg HS [facility] Administration Sennosides 8.6 mg 01/17/18 14:00 01/26/18 10:28 Senokot Tab PO 8.6 mg DAILY [facility] Administration - Patient Studies Lab Studies: Microbiology Studies 01/21/18 Unknown Blood Culture - Preliminary Blood-Venous NO GROWTH AFTER 4 DAYS 01/21/18 Unknown Blood Culture - Preliminary Blood-Venous NO GROWTH AFTER 4 DAYS 01/22/18 14:00 Gram Stain - Final Back Wound Culture - Final Enterococcus Faecalis Coagulase Neg Staphylococcus Lab Studies 01/26/18 01/26/18 01/26/18 Range/Units 10:18 07:38 06:45 WBC (4.8-10.8) K/uL RBC (4.40-5.90) Mil/uL Hgb (12.0-18.0) g/dL Hct (35.0-51.0) % MCV (80.0-94.0) fL MCH (27.0-31.0) pg MCHC (33.0-37.0) g/dL RDW (11.5-14.5) % Plt Count (130-400) K/uL MPV (7.2-11.7) fL Neut % (Auto) (50.0-75.0) % Lymph % (Auto) (20.0-40.0) % Sunflower % (Auto) (0.0-10.0) % Eos % (Auto) (0.0-4.0) % Baso % (Auto) (0.0-2.0) % Neut # (Auto) (1.8-7.0) K/uL Lymph # (Auto) (1.0-4.3) K/uL Sunflower # (Auto) (0.0-0.8) K/uL Eos # (Auto) (0.0-0.7) K/uL Baso # (Auto) (0.0-0.2) K/uL Differential Comment Puncture Site pCO2 (35-45) mm/Hg pO2 (80-100) mm/Hg HCO3 (21-28) mmol/L ABG pH (7.35-7.45) ABG Total CO2 (22-28) mmol/L ABG O2 Saturation (95-98) % ABG Base Excess (-2.0-3.0) mmol/L ABG Hemoglobin (11.7-17.4) g/dL ABG Carboxyhemoglobin (0.5-1.5) % POC ABG HHb (Measured) (0.0-5.0) % ABG Methemoglobin (0.0-3.0) % Jamey Test A-a O2 Difference mm/Hg Respiratory Index Hgb O2 Saturation (95.0-98.0) % Vent Mode Mechanical Rate FiO2 % Tidal Volume PEEP Sodium (132-148) mmol/L Potassium (3.6-5.2) mmol/L Chloride (98-107) mmol/L Carbon Dioxide (22-30) mmol/L Anion Gap (10-20) BUN (9-20) mg/dL Creatinine (0.8-1.5) mg/dL Est GFR ( Amer) Est GFR (Non-Af Amer) POC Glucose (mg/dL) 271 H 147 H 133 H (65-110) mg/dL Random Glucose (75-110) mg/dL Calcium (8.6-10.4) mg/dl Total Bilirubin (0.2-1.3) mg/dL AST (17-59) U/L ALT (21-72) U/L Alkaline Phosphatase (38-126) U/L Total Protein (6.3-8.3) g/dL Albumin (3.5-5.0) g/dL Globulin (2.2-3.9) gm/dL Albumin/Globulin Ratio (1.0-2.1) 01/26/18 01/26/18 01/26/18 Range/Units 06:19 06:19 06:04 WBC 10.6 (4.8-10.8) K/uL RBC 4.10 L (4.40-5.90) Mil/uL Hgb 12.9 (12.0-18.0) g/dL Hct 37.8 (35.0-51.0) % MCV 92.2 (80.0-94.0) fL MCH 31.4 H (27.0-31.0) pg MCHC 34.0 (33.0-37.0) g/dL RDW 12.2 (11.5-14.5) % Plt Count 122 L (130-400) K/uL MPV 12.9 H (7.2-11.7) fL Neut % (Auto) 82.1 H (50.0-75.0) % Lymph % (Auto) 12.6 L (20.0-40.0) % Sunflower % (Auto) 4.1 (0.0-10.0) % Eos % (Auto) 1.0 (0.0-4.0) % Baso % (Auto) 0.2 (0.0-2.0) % Neut # (Auto) 8.7 H (1.8-7.0) K/uL Lymph # (Auto) 1.3 (1.0-4.3) K/uL Sunflower # (Auto) 0.4 (0.0-0.8) K/uL Eos # (Auto) 0.1 (0.0-0.7) K/uL Baso # (Auto) 0.0 (0.0-0.2) K/uL Differential Comment Puncture Site pCO2 (35-45) mm/Hg pO2 (80-100) mm/Hg HCO3 (21-28) mmol/L ABG pH (7.35-7.45) ABG Total CO2 (22-28) mmol/L ABG O2 Saturation (95-98) % ABG Base Excess (-2.0-3.0) mmol/L ABG Hemoglobin (11.7-17.4) g/dL ABG Carboxyhemoglobin (0.5-1.5) % POC ABG HHb (Measured) (0.0-5.0) % ABG Methemoglobin (0.0-3.0) % Jamey Test A-a O2 Difference mm/Hg Respiratory Index Hgb O2 Saturation (95.0-98.0) % Vent Mode Mechanical Rate FiO2 % Tidal Volume PEEP Sodium 149 H (132-148) mmol/L Potassium 3.7 (3.6-5.2) mmol/L Chloride 111 H (98-107) mmol/L Carbon Dioxide 26 (22-30) mmol/L Anion Gap 16 (10-20) BUN 37 H (9-20) mg/dL Creatinine 1.3 (0.8-1.5) mg/dL Est GFR ( Amer) > 60 Est GFR (Non-Af Amer) 55 POC Glucose (mg/dL) 136 H (65-110) mg/dL Random Glucose 154 H (75-110) mg/dL Calcium 8.3 L (8.6-10.4) mg/dl Total Bilirubin 0.4 (0.2-1.3) mg/dL AST 73 H D (17-59) U/L ALT 85 H (21-72) U/L Alkaline Phosphatase 104 (38-126) U/L Total Protein 6.1 L (6.3-8.3) g/dL Albumin 2.9 L (3.5-5.0) g/dL Globulin 3.2 (2.2-3.9) gm/dL Albumin/Globulin Ratio 0.9 L (1.0-2.1) 01/26/18 01/26/18 01/26/18 Range/Units 05:12 04:48 04:15 WBC (4.8-10.8) K/uL RBC (4.40-5.90) Mil/uL Hgb (12.0-18.0) g/dL Hct (35.0-51.0) % MCV (80.0-94.0) fL MCH (27.0-31.0) pg MCHC (33.0-37.0) g/dL RDW (11.5-14.5) % Plt Count (130-400) K/uL MPV (7.2-11.7) fL Neut % (Auto) (50.0-75.0) % Lymph % (Auto) (20.0-40.0) % Sunflower % (Auto) (0.0-10.0) % Eos % (Auto) (0.0-4.0) % Baso % (Auto) (0.0-2.0) % Neut # (Auto) (1.8-7.0) K/uL Lymph # (Auto) (1.0-4.3) K/uL Sunflower # (Auto) (0.0-0.8) K/uL Eos # (Auto) (0.0-0.7) K/uL Baso # (Auto) (0.0-0.2) K/uL Differential Comment Puncture Site Rb pCO2 38 (35-45) mm/Hg pO2 69 L (80-100) mm/Hg HCO3 26.2 (21-28) mmol/L ABG pH 7.44 (7.35-7.45) ABG Total CO2 27.0 (22-28) mmol/L ABG O2 Saturation 95.9 (95-98) % ABG Base Excess 1.7 (-2.0-3.0) mmol/L ABG Hemoglobin 12.8 (11.7-17.4) g/dL ABG Carboxyhemoglobin 1.6 H (0.5-1.5) % POC ABG HHb (Measured) 4.0 (0.0-5.0) % ABG Methemoglobin 1.0 (0.0-3.0) % Jamey Test Na A-a O2 Difference 169.0 mm/Hg Respiratory Index 2.4 Hgb O2 Saturation 93.4 L (95.0-98.0) % Vent Mode Prvc Mechanical Rate 16 FiO2 40.0 % Tidal Volume 500 PEEP 5 Sodium (132-148) mmol/L Potassium (3.6-5.2) mmol/L Chloride (98-107) mmol/L Carbon Dioxide (22-30) mmol/L Anion Gap (10-20) BUN (9-20) mg/dL Creatinine (0.8-1.5) mg/dL Est GFR ( Amer) Est GFR (Non-Af Amer) POC Glucose (mg/dL) 148 H 152 H (65-110) mg/dL Random Glucose (75-110) mg/dL Calcium (8.6-10.4) mg/dl Total Bilirubin (0.2-1.3) mg/dL AST (17-59) U/L ALT (21-72) U/L Alkaline Phosphatase (38-126) U/L Total Protein (6.3-8.3) g/dL Albumin (3.5-5.0) g/dL Globulin (2.2-3.9) gm/dL Albumin/Globulin Ratio (1.0-2.1) 01/26/18 01/26/18 01/26/18 Range/Units 03:07 02:01 00:58 WBC (4.8-10.8) K/uL RBC (4.40-5.90) Mil/uL Hgb (12.0-18.0) g/dL Hct (35.0-51.0) % MCV (80.0-94.0) fL MCH (27.0-31.0) pg MCHC (33.0-37.0) g/dL RDW (11.5-14.5) % Plt Count (130-400) K/uL MPV (7.2-11.7) fL Neut % (Auto) (50.0-75.0) % Lymph % (Auto) (20.0-40.0) % Sunflower % (Auto) (0.0-10.0) % Eos % (Auto) (0.0-4.0) % Baso % (Auto) (0.0-2.0) % Neut # (Auto) (1.8-7.0) K/uL Lymph # (Auto) (1.0-4.3) K/uL Sunflower # (Auto) (0.0-0.8) K/uL Eos # (Auto) (0.0-0.7) K/uL Baso # (Auto) (0.0-0.2) K/uL Differential Comment Puncture Site pCO2 (35-45) mm/Hg pO2 (80-100) mm/Hg HCO3 (21-28) mmol/L ABG pH (7.35-7.45) ABG Total CO2 (22-28) mmol/L ABG O2 Saturation (95-98) % ABG Base Excess (-2.0-3.0) mmol/L ABG Hemoglobin (11.7-17.4) g/dL ABG Carboxyhemoglobin (0.5-1.5) % POC ABG HHb (Measured) (0.0-5.0) % ABG Methemoglobin (0.0-3.0) % Jamey Test A-a O2 Difference mm/Hg Respiratory Index Hgb O2 Saturation (95.0-98.0) % Vent Mode Mechanical Rate FiO2 % Tidal Volume PEEP Sodium (132-148) mmol/L Potassium (3.6-5.2) mmol/L Chloride (98-107) mmol/L Carbon Dioxide (22-30) mmol/L Anion Gap (10-20) BUN (9-20) mg/dL Creatinine (0.8-1.5) mg/dL Est GFR ( Amer) Est GFR (Non-Af Amer) POC Glucose (mg/dL) 150 H 176 H 136 H (65-110) mg/dL Random Glucose (75-110) mg/dL Calcium (8.6-10.4) mg/dl Total Bilirubin (0.2-1.3) mg/dL AST (17-59) U/L ALT (21-72) U/L Alkaline Phosphatase (38-126) U/L Total Protein (6.3-8.3) g/dL Albumin (3.5-5.0) g/dL Globulin (2.2-3.9) gm/dL Albumin/Globulin Ratio (1.0-2.1) 01/26/18 01/25/18 01/25/18 Range/Units 00:03 23:02 22:02 WBC (4.8-10.8) K/uL RBC (4.40-5.90) Mil/uL Hgb (12.0-18.0) g/dL Hct (35.0-51.0) % MCV (80.0-94.0) fL MCH (27.0-31.0) pg MCHC (33.0-37.0) g/dL RDW (11.5-14.5) % Plt Count (130-400) K/uL MPV (7.2-11.7) fL Neut % (Auto) (50.0-75.0) % Lymph % (Auto) (20.0-40.0) % Sunflower % (Auto) (0.0-10.0) % Eos % (Auto) (0.0-4.0) % Baso % (Auto) (0.0-2.0) % Neut # (Auto) (1.8-7.0) K/uL Lymph # (Auto) (1.0-4.3) K/uL Sunflower # (Auto) (0.0-0.8) K/uL Eos # (Auto) (0.0-0.7) K/uL Baso # (Auto) (0.0-0.2) K/uL Differential Comment Puncture Site pCO2 (35-45) mm/Hg pO2 (80-100) mm/Hg HCO3 (21-28) mmol/L ABG pH (7.35-7.45) ABG Total CO2 (22-28) mmol/L ABG O2 Saturation (95-98) % ABG Base Excess (-2.0-3.0) mmol/L ABG Hemoglobin (11.7-17.4) g/dL ABG Carboxyhemoglobin (0.5-1.5) % POC ABG HHb (Measured) (0.0-5.0) % ABG Methemoglobin (0.0-3.0) % Jamey Test A-a O2 Difference mm/Hg Respiratory Index Hgb O2 Saturation (95.0-98.0) % Vent Mode Mechanical Rate FiO2 % Tidal Volume PEEP Sodium (132-148) mmol/L Potassium (3.6-5.2) mmol/L Chloride (98-107) mmol/L Carbon Dioxide (22-30) mmol/L Anion Gap (10-20) BUN (9-20) mg/dL Creatinine (0.8-1.5) mg/dL Est GFR ( Amer) Est GFR (Non-Af Amer) POC Glucose (mg/dL) 117 H 150 H 180 H (65-110) mg/dL Random Glucose (75-110) mg/dL Calcium (8.6-10.4) mg/dl Total Bilirubin (0.2-1.3) mg/dL AST (17-59) U/L ALT (21-72) U/L Alkaline Phosphatase (38-126) U/L Total Protein (6.3-8.3) g/dL Albumin (3.5-5.0) g/dL Globulin (2.2-3.9) gm/dL Albumin/Globulin Ratio (1.0-2.1) 01/25/18 01/25/18 01/25/18 Range/Units 21:04 19:48 18:57 WBC (4.8-10.8) K/uL RBC (4.40-5.90) Mil/uL Hgb (12.0-18.0) g/dL Hct (35.0-51.0) % MCV (80.0-94.0) fL MCH (27.0-31.0) pg MCHC (33.0-37.0) g/dL RDW (11.5-14.5) % Plt Count (130-400) K/uL MPV (7.2-11.7) fL Neut % (Auto) (50.0-75.0) % Lymph % (Auto) (20.0-40.0) % Sunflower % (Auto) (0.0-10.0) % Eos % (Auto) (0.0-4.0) % Baso % (Auto) (0.0-2.0) % Neut # (Auto) (1.8-7.0) K/uL Lymph # (Auto) (1.0-4.3) K/uL Sunflower # (Auto) (0.0-0.8) K/uL Eos # (Auto) (0.0-0.7) K/uL Baso # (Auto) (0.0-0.2) K/uL Differential Comment Puncture Site pCO2 (35-45) mm/Hg pO2 (80-100) mm/Hg HCO3 (21-28) mmol/L ABG pH (7.35-7.45) ABG Total CO2 (22-28) mmol/L ABG O2 Saturation (95-98) % ABG Base Excess (-2.0-3.0) mmol/L ABG Hemoglobin (11.7-17.4) g/dL ABG Carboxyhemoglobin (0.5-1.5) % POC ABG HHb (Measured) (0.0-5.0) % ABG Methemoglobin (0.0-3.0) % Jamey Test A-a O2 Difference mm/Hg Respiratory Index Hgb O2 Saturation (95.0-98.0) % Vent Mode Mechanical Rate FiO2 % Tidal Volume PEEP Sodium (132-148) mmol/L Potassium (3.6-5.2) mmol/L Chloride (98-107) mmol/L Carbon Dioxide (22-30) mmol/L Anion Gap (10-20) BUN (9-20) mg/dL Creatinine (0.8-1.5) mg/dL Est GFR ( Amer) Est GFR (Non-Af Amer) POC Glucose (mg/dL) 292 H 358 H 368 H (65-110) mg/dL Random Glucose (75-110) mg/dL Calcium (8.6-10.4) mg/dl Total Bilirubin (0.2-1.3) mg/dL AST (17-59) U/L ALT (21-72) U/L Alkaline Phosphatase (38-126) U/L Total Protein (6.3-8.3) g/dL Albumin (3.5-5.0) g/dL Globulin (2.2-3.9) gm/dL Albumin/Globulin Ratio (1.0-2.1) 01/25/18 01/25/18 Range/Units 17:43 11:44 WBC (4.8-10.8) K/uL RBC (4.40-5.90) Mil/uL Hgb (12.0-18.0) g/dL Hct (35.0-51.0) % MCV (80.0-94.0) fL MCH (27.0-31.0) pg MCHC (33.0-37.0) g/dL RDW (11.5-14.5) % Plt Count (130-400) K/uL MPV (7.2-11.7) fL Neut % (Auto) (50.0-75.0) % Lymph % (Auto) (20.0-40.0) % Sunflower % (Auto) (0.0-10.0) % Eos % (Auto) (0.0-4.0) % Baso % (Auto) (0.0-2.0) % Neut # (Auto) (1.8-7.0) K/uL Lymph # (Auto) (1.0-4.3) K/uL Sunflower # (Auto) (0.0-0.8) K/uL Eos # (Auto) (0.0-0.7) K/uL Baso # (Auto) (0.0-0.2) K/uL Differential Comment Puncture Site pCO2 (35-45) mm/Hg pO2 (80-100) mm/Hg HCO3 (21-28) mmol/L ABG pH (7.35-7.45) ABG Total CO2 (22-28) mmol/L ABG O2 Saturation (95-98) % ABG Base Excess (-2.0-3.0) mmol/L ABG Hemoglobin (11.7-17.4) g/dL ABG Carboxyhemoglobin (0.5-1.5) % POC ABG HHb (Measured) (0.0-5.0) % ABG Methemoglobin (0.0-3.0) % Jamey Test A-a O2 Difference mm/Hg Respiratory Index Hgb O2 Saturation (95.0-98.0) % Vent Mode Mechanical Rate FiO2 % Tidal Volume PEEP Sodium (132-148) mmol/L Potassium (3.6-5.2) mmol/L Chloride (98-107) mmol/L Carbon Dioxide (22-30) mmol/L Anion Gap (10-20) BUN (9-20) mg/dL Creatinine (0.8-1.5) mg/dL Est GFR ( Amer) Est GFR (Non-Af Amer) POC Glucose (mg/dL) 462 H* 366 H (65-110) mg/dL Random Glucose (75-110) mg/dL Calcium (8.6-10.4) mg/dl Total Bilirubin (0.2-1.3) mg/dL AST (17-59) U/L ALT (21-72) U/L Alkaline Phosphatase (38-126) U/L Total Protein (6.3-8.3) g/dL Albumin (3.5-5.0) g/dL Globulin (2.2-3.9) gm/dL Albumin/Globulin Ratio (1.0-2.1) Laboratory Results - last 24 hr 01/25/18 01/25/18 01/25/18 11:44 17:43 18:57 WBC RBC Hgb Hct MCV MCH MCHC RDW Plt Count MPV Neut % (Auto) Lymph % (Auto) Sunflower % (Auto) Eos % (Auto) Baso % (Auto) Neut # (Auto) Lymph # (Auto) Sunflower # (Auto) Eos # (Auto) Baso # (Auto) Differential Comment Puncture Site pCO2 pO2 HCO3 ABG pH ABG Total CO2 ABG O2 Saturation ABG Base Excess ABG Hemoglobin ABG Carboxyhemoglobin POC ABG HHb (Measured) ABG Methemoglobin Jamey Test A-a O2 Difference Respiratory Index Hgb O2 Saturation Vent Mode Mechanical Rate FiO2 Tidal Volume PEEP Sodium Potassium Chloride Carbon Dioxide Anion Gap BUN Creatinine Est GFR ( Amer) Est GFR (Non-Af Amer) POC Glucose (mg/dL) 366 H 462 H* 368 H Random Glucose Calcium Total Bilirubin AST ALT Alkaline Phosphatase Total Protein Albumin Globulin Albumin/Globulin Ratio 01/25/18 01/25/18 01/25/18 19:48 21:04 22:02 WBC RBC Hgb Hct MCV MCH MCHC RDW Plt Count MPV Neut % (Auto) Lymph % (Auto) Sunflower % (Auto) Eos % (Auto) Baso % (Auto) Neut # (Auto) Lymph # (Auto) Sunflower # (Auto) Eos # (Auto) Baso # (Auto) Differential Comment Puncture Site pCO2 pO2 HCO3 ABG pH ABG Total CO2 ABG O2 Saturation ABG Base Excess ABG Hemoglobin ABG Carboxyhemoglobin POC ABG HHb (Measured) ABG Methemoglobin Jamey Test A-a O2 Difference Respiratory Index Hgb O2 Saturation Vent Mode Mechanical Rate FiO2 Tidal Volume PEEP Sodium Potassium Chloride Carbon Dioxide Anion Gap BUN Creatinine Est GFR ( Amer) Est GFR (Non-Af Amer) POC Glucose (mg/dL) 358 H 292 H 180 H Random Glucose Calcium Total Bilirubin AST ALT Alkaline Phosphatase Total Protein Albumin Globulin Albumin/Globulin Ratio 01/25/18 01/26/18 01/26/18 23:02 00:03 00:58 WBC RBC Hgb Hct MCV MCH MCHC RDW Plt Count MPV Neut % (Auto) Lymph % (Auto) Sunflower % (Auto) Eos % (Auto) Baso % (Auto) Neut # (Auto) Lymph # (Auto) Sunflower # (Auto) Eos # (Auto) Baso # (Auto) Differential Comment Puncture Site pCO2 pO2 HCO3 ABG pH ABG Total CO2 ABG O2 Saturation ABG Base Excess ABG Hemoglobin ABG Carboxyhemoglobin POC ABG HHb (Measured) ABG Methemoglobin Jamey Test A-a O2 Difference Respiratory Index Hgb O2 Saturation Vent Mode Mechanical Rate FiO2 Tidal Volume PEEP Sodium Potassium Chloride Carbon Dioxide Anion Gap BUN Creatinine Est GFR ( Amer) Est GFR (Non-Af Amer) POC Glucose (mg/dL) 150 H 117 H 136 H Random Glucose Calcium Total Bilirubin AST ALT Alkaline Phosphatase Total Protein Albumin Globulin Albumin/Globulin Ratio 01/26/18 01/26/18 01/26/18 02:01 03:07 04:15 WBC RBC Hgb Hct MCV MCH MCHC RDW Plt Count MPV Neut % (Auto) Lymph % (Auto) Sunflower % (Auto) Eos % (Auto) Baso % (Auto) Neut # (Auto) Lymph # (Auto) Sunflower # (Auto) Eos # (Auto) Baso # (Auto) Differential Comment Puncture Site pCO2 pO2 HCO3 ABG pH ABG Total CO2 ABG O2 Saturation ABG Base Excess ABG Hemoglobin ABG Carboxyhemoglobin POC ABG HHb (Measured) ABG Methemoglobin Jamey Test A-a O2 Difference Respiratory Index Hgb O2 Saturation Vent Mode Mechanical Rate FiO2 Tidal Volume PEEP Sodium Potassium Chloride Carbon Dioxide Anion Gap BUN Creatinine Est GFR ( Amer) Est GFR (Non-Af Amer) POC Glucose (mg/dL) 176 H 150 H 152 H Random Glucose Calcium Total Bilirubin AST ALT Alkaline Phosphatase Total Protein Albumin Globulin Albumin/Globulin Ratio 01/26/18 01/26/18 01/26/18 04:48 05:12 06:04 WBC RBC Hgb Hct MCV MCH MCHC RDW Plt Count MPV Neut % (Auto) Lymph % (Auto) Sunflower % (Auto) Eos % (Auto) Baso % (Auto) Neut # (Auto) Lymph # (Auto) Sunflower # (Auto) Eos # (Auto) Baso # (Auto) Differential Comment Puncture Site Rb pCO2 38 pO2 69 L HCO3 26.2 ABG pH 7.44 ABG Total CO2 27.0 ABG O2 Saturation 95.9 ABG Base Excess 1.7 ABG Hemoglobin 12.8 ABG Carboxyhemoglobin 1.6 H POC ABG HHb (Measured) 4.0 ABG Methemoglobin 1.0 Jamey Test Na A-a O2 Difference 169.0 Respiratory Index 2.4 Hgb O2 Saturation 93.4 L Vent Mode Prvc Mechanical Rate 16 FiO2 40.0 Tidal Volume 500 PEEP 5 Sodium Potassium Chloride Carbon Dioxide Anion Gap BUN Creatinine Est GFR ( Amer) Est GFR (Non-Af Amer) POC Glucose (mg/dL) 148 H 136 H Random Glucose Calcium Total Bilirubin AST ALT Alkaline Phosphatase Total Protein Albumin Globulin Albumin/Globulin Ratio 01/26/18 01/26/18 01/26/18 06:19 06:19 06:45 WBC 10.6 RBC 4.10 L Hgb 12.9 Hct 37.8 MCV 92.2 MCH 31.4 H MCHC 34.0 RDW 12.2 Plt Count 122 L MPV 12.9 H Neut % (Auto) 82.1 H Lymph % (Auto) 12.6 L Sunflower % (Auto) 4.1 Eos % (Auto) 1.0 Baso % (Auto) 0.2 Neut # (Auto) 8.7 H Lymph # (Auto) 1.3 Sunflower # (Auto) 0.4 Eos # (Auto) 0.1 Baso # (Auto) 0.0 Differential Comment Puncture Site pCO2 pO2 HCO3 ABG pH ABG Total CO2 ABG O2 Saturation ABG Base Excess ABG Hemoglobin ABG Carboxyhemoglobin POC ABG HHb (Measured) ABG Methemoglobin Jamey Test A-a O2 Difference Respiratory Index Hgb O2 Saturation Vent Mode Mechanical Rate FiO2 Tidal Volume PEEP Sodium 149 H Potassium 3.7 Chloride 111 H Carbon Dioxide 26 Anion Gap 16 BUN 37 H Creatinine 1.3 Est GFR ( Amer) > 60 Est GFR (Non-Af Amer) 55 POC Glucose (mg/dL) 133 H Random Glucose 154 H Calcium 8.3 L Total Bilirubin 0.4 AST 73 H D ALT 85 H Alkaline Phosphatase 104 Total Protein 6.1 L Albumin 2.9 L Globulin 3.2 Albumin/Globulin Ratio 0.9 L 01/26/18 01/26/18 07:38 10:18 WBC RBC Hgb Hct MCV MCH MCHC RDW Plt Count MPV Neut % (Auto) Lymph % (Auto) Sunflower % (Auto) Eos % (Auto) Baso % (Auto) Neut # (Auto) Lymph # (Auto) Sunflower # (Auto) Eos # (Auto) Baso # (Auto) Differential Comment Puncture Site pCO2 pO2 HCO3 ABG pH ABG Total CO2 ABG O2 Saturation ABG Base Excess ABG Hemoglobin ABG Carboxyhemoglobin POC ABG HHb (Measured) ABG Methemoglobin Jamey Test A-a O2 Difference Respiratory Index Hgb O2 Saturation Vent Mode Mechanical Rate FiO2 Tidal Volume PEEP Sodium Potassium Chloride Carbon Dioxide Anion Gap BUN Creatinine Est GFR ( Amer) Est GFR (Non-Af Amer) POC Glucose (mg/dL) 147 H 271 H Random Glucose Calcium Total Bilirubin AST ALT Alkaline Phosphatase Total Protein Albumin Globulin Albumin/Globulin Ratio Fingerstick Blood Sugar Results: 133 Review of Systems - Review of Systems Systems not reviewed;Unavailable: Acuity of Condition Assessment/Plan - Assessment and Plan (Free Text) Assessment: 67 year old male with a past medical history of type 2 dm, hypertension, cva, s/ p cabg (8yrs ago), hyperlipidemia who was admitted to the ICU after being found unresponsive by daughter. Patient subsequently had a witnessed seizure while in the hospital and was transferred to the ICU for further monitoring . Plan: Neurology:New onset Seizures - EEG showed diffuse slowing is seen, suggestive of a diffuse abnormality of the brain. Some focal slowing was seen, suggestive of a focal abnormality. No seizures noted during the EEG recording. -Continue Keppra 1000 mg -Repeat CT of head showed no acute abnormalities -Neurology following. -Patient went to have Brain MRI at [facility] today. Will f/u with results. Hematology:Electrolyte imbalances -Elevated sodium. Will continue to monitor with serial CMP's. Cardiovascular: Hypertension -continue carvedilol and hydralazine Hematology: DVT of Right subclavian vein -Eliquis 10mg BID X 7 days held. Pending MRI results. Renal: Hypernatremia -Will continue to monitor with serial CMP's. -Continue d5w @100mls/hr and Free water 400ml q4 per Nephrology rec's. Endocrinology:h/o Diabetes -Glargine 20 units qhs -SISS for coverage. GI:Tube feeding Continue Glucerna@50 ID no acute issues, stopping abx. GI proph - protonix DVT proph - heparin sq
[2018-01-26] MEDS: Insulin Human Regular 100 UNIT in Sodium Chloride 0.9% 99 ML IV PRN (14:31)
--- NOTE | 2018-01-26 14:48 | CP.PCM.PN ---
Subjective - Date & Time of Evaluation Date of Evaluation: 01/26/18 Time of Evaluation: 14:46 - Subjective Subjective: PGY2 progress note for neurology Pt seen and examined at bedside. Patient went to [facility] to have MRI of brain done today. Patient is currently on cooling blanket for recurrent fevers. Otherwise, no acute events. Patient continues to be vented on PRVC. Pt still not reacting to painful stimuli and not opening eyes spontaneous. Pt still has non-purposeful movements in the extremities. Objective - Vital Signs/Intake and Output Vital Signs (last 24 hours): Temp Pulse Resp BP Pulse Ox 99.3 F 62 20 121/50 L 99 01/26/18 12:00 01/26/18 12:09 01/26/18 12:09 01/26/18 12:09 01/26/18 12:09 Intake and Output: 01/26/18 01/26/18 06:59 18:59 Intake Total 2871 658.2 Output Total 970 240 Balance 1901 418.2 - Medications Medications: Current Medications Acetaminophen (Tylenol 650mg/20.3ml Solution Ud) 650 mg NG Q6 PRN PRN Reason: GIVE FOR TEMP. 100*F OR ABOVE Last Admin: 01/26/18 07:51 Dose: 650 mg Albuterol Sulfate (Albuterol 0.083% Inhal Lynne (2.5 Mg/3 Ml) Ud) 2.5 mg IH RQ6 [facility] Last Admin: 01/26/18 13:39 Dose: 2.5 mg Aspirin (Aspirin Chewable) 81 mg PO DAILY [facility] Last Admin: 01/26/18 10:28 Dose: 81 mg Carvedilol (Coreg) 12.5 mg PO BID [facility] Last Admin: 01/26/18 10:28 Dose: 12.5 mg Heparin Sodium (Porcine) (Heparin) 5,000 units SC Q8 [facility] Last Admin: 01/23/18 15:08 Dose: Not Given Hydralazine HCl (Apresoline) 50 mg PO Q8 [facility] Last Admin: 01/26/18 05:56 Dose: 50 mg Levetiracetam 1,000 mg/ Sodium (Chloride) 110 mls @ 440 mls/hr IVPB Q12H [facility] Last Admin: 01/26/18 10:00 Dose: Not Given Dextrose (Dextrose 5% In Water 1000 Ml) 1,000 mls @ 100 mls/hr IV .Q10H [facility] Last Admin: 01/26/18 13:11 Dose: 100 mls/hr Insulin Human Regular 100 unit (/ Sodium Chloride) 100 mls @ 1.97 mls/hr IV .Q24H [facility]; 0.02 UNIT/KG/HR PRN Reason: Protocol Last Titration: 01/26/18 13:19 Dose: 0.2 unit/kg/hr, 20 mls/hr Insulin Glargine (Lantus) 20 unit SC Q12 [facility] Last Admin: 01/26/18 10:29 Dose: 20 units Pantoprazole Sodium (Protonix Susp) 40 mg PO 1000 [facility] Last Admin: 01/26/18 10:28 Dose: 40 mg Rosuvastatin Calcium (Crestor) 10 mg PO HS [facility] Last Admin: 01/25/18 21:14 Dose: 10 mg Sennosides (Senokot Tab) 8.6 mg PO DAILY [facility] Last Admin: 01/26/18 10:28 Dose: 8.6 mg - Labs Labs: 01/26/18 06:19 01/26/18 06:19 PT 10.6 SECONDS (9.7-12.2) 01/16/18 12:27 INR 0.9 01/16/18 12:27 APTT 33 SECONDS (21-34) 01/16/18 12:27 - Constitutional Appears: Non-toxic, No Acute Distress - Head Exam Head Exam: ATRAUMATIC - Eye Exam Additional comments: right eye reacting to light. Left eye not reacting to light. - ENT Exam ENT Exam: Mucous Membranes Moist - Respiratory Exam Respiratory Exam: Clear to Ausculation Bilateral. absent: Rales, Rhonchi, Wheezes - Cardiovascular Exam Cardiovascular Exam: REGULAR RHYTHM, +S1, +S2 - GI/Abdominal Exam GI & Abdominal Exam: Soft. absent: Distended, Firm, Guarding, Rigid, Tenderness - Extremities Exam Extremities Exam: absent: Pedal Edema, Tenderness - Neurological Exam Neurological Exam: absent: Alert, Awake, Oriented x3 Additional comments: Patient has B/L corneal reflex. No reacting to light - Psychiatric Exam Psychiatric exam: absent: Normal Affect, Normal Mood - Skin Skin Exam: Dry Assessment and Plan - Assessment and Plan (Free Text) Assessment: This is a 67 year old male with PMHx multiple CVA which are likely contributing to his new onset seizures. Plan: 1. New onset Seizures - MRI brain without contrast: Relatively symmetric throughout B/L muclei with small foci of restricted diffusion that could represent sequela or subacute- chronic ischemia. Old right [employer] territory infarct. Chronic white matter basal nuclei and brainstem ischemic changes. - EEG showed diffuse slowing is seen, suggestive of a diffuse abnormality of the brain. Some focal slowing was seen, suggestive of a focal abnormality. No seizures noted during the EEG recording. - Continue Keppra 1000 mg - Repeat CT of head showed no acute abnormalities - Prior insults are likely causing this new onset of seizures. - Repeat EEG shows no seizure activity - Consider Modafinil - Due to recurrent low grade temps and no significant abnormality seen on the MRI, recommend doing lumbar puncture Discussed with Dr. Baldwin
--- NOTE | 2018-01-26 16:27 | RAD ---
HISTORY: coughing COMPARISON: 01/24/2018 FINDINGS: LUNGS: No active pulmonary disease. PLEURA: No significant pleural effusion identified, no pneumothorax apparent. CARDIOVASCULAR: Normal heart size. ET tube and NG tube unchanged. Status post CABG. OSSEOUS STRUCTURES: No significant abnormalities. VISUALIZED UPPER ABDOMEN: Normal. OTHER FINDINGS: None. IMPRESSION: No active disease.
[2018-01-26] MEDS ORDERED: Albuterol-Ipratrop 3 mg / 0.5 (3 ml) UD INH STA (16:29)
--- NOTE | 2018-01-26 16:40 | CP.PCM.DIS ---
Provider - Provider Date of Admission: 01/16/18 13:59 Attending physician: Arash Rose MD Primary care physician: jeremy Consults: donnie Time Spent in preparation of Discharge (in minutes): 90 (document created in error ) Hospital Course - Lab Results Lab Results: Micro Results 01/21/18 Unknown Blood-Venous Blood Culture - Preliminary NO GROWTH AFTER 4 DAYS 01/21/18 Unknown Blood-Venous Blood Culture - Preliminary NO GROWTH AFTER 4 DAYS 01/22/18 14:00 Back Gram Stain - Final 01/22/18 14:00 Back Wound Culture - Final Enterococcus Faecalis Coagulase Neg Staphylococcus 01/21/18 Unknown Trachasp Gram Stain - Final 01/21/18 Unknown Trachasp Sputum Culture - Final Staphylococcus Aureus 01/17/18 15:26 Blood Blood Culture - Final NO GROWTH AFTER 5 DAYS 01/17/18 15:26 Blood Gram Stain - Final TEST NOT PERFORMED 01/17/18 15:26 Blood Blood Culture - Final NO GROWTH AFTER 5 DAYS 01/17/18 15:26 Blood Gram Stain - Final TEST NOT PERFORMED 01/21/18 Unknown Urine,Stanley Urine Culture - Final No Growth (<1,000 CFU/ML) 01/16/18 17:36 Trachasp Gram Stain - Final 01/16/18 17:36 Trachasp Sputum Culture - Final NORMAL ORAL HALEY 01/16/18 20:18 Naris MRSA Culture (Admit) - Final MRSA NOT DETECTED 01/17/18 15:26 Urine Urine Culture - Final No Growth (<1,000 CFU/ML) Most Recent Lab Values WBC 10.6 K/uL (4.8-10.8) 01/26/18 06:19 RBC 4.10 Mil/uL (4.40-5.90) L 01/26/18 06:19 Hgb 12.9 g/dL (12.0-18.0) 01/26/18 06:19 Hct 37.8 % (35.0-51.0) 01/26/18 06:19 MCV 92.2 fL (80.0-94.0) 01/26/18 06:19 MCH 31.4 pg (27.0-31.0) H 01/26/18 06:19 MCHC 34.0 g/dL (33.0-37.0) 01/26/18 06:19 RDW 12.2 % (11.5-14.5) 01/26/18 06:19 Plt Count 122 K/uL (130-400) L 01/26/18 06:19 MPV 12.9 fL (7.2-11.7) H 01/26/18 06:19 Neut % (Auto) 82.1 % (50.0-75.0) H 01/26/18 06:19 Lymph % (Auto) 12.6 % (20.0-40.0) L 01/26/18 06:19 Arroyo % (Auto) 4.1 % (0.0-10.0) 01/26/18 06:19 Eos % (Auto) 1.0 % (0.0-4.0) 01/26/18 06:19 Baso % (Auto) 0.2 % (0.0-2.0) 01/26/18 06:19 Neut # (Auto) 8.7 K/uL (1.8-7.0) H 01/26/18 06:19 Lymph # (Auto) 1.3 K/uL (1.0-4.3) 01/26/18 06:19 Arroyo # (Auto) 0.4 K/uL (0.0-0.8) 01/26/18 06:19 Eos # (Auto) 0.1 K/uL (0.0-0.7) 01/26/18 06:19 Baso # (Auto) 0.0 K/uL (0.0-0.2) 01/26/18 06:19 Neutrophils % (Manual) 91 % (50-75) H 01/16/18 12:27 Band Neutrophils % 1 % (0-2) 01/16/18 12:27 Lymphocytes % (Manual) 7 % (20-40) L 01/16/18 12:27 Monocytes % (Manual) 1 % (0-10) 01/16/18 12:27 Differential Comment 01/26/18 06:19 Platelet Estimate Normal (NORMAL) 01/16/18 12:27 RBC Morphology Normal 01/16/18 12: PT 10.6 SECONDS (9.7-12.2) 01/16/18 12:27 INR 0.9 01/16/18 12:27 APTT 33 SECONDS (21-34) 01/16/18 12:27 Puncture Site Rb 03/09/18 05:12 pCO2 38 mm/Hg (35-45) 01/26/18 05:12 pO2 69 mm/Hg (80-100) L 01/26/18 05:12 HCO3 26.2 mmol/L (21-28) 01/26/18 05:12 ABG pH 7.44 (7.35-7.45) 01/26/18 05:12 ABG Total CO2 27.0 mmol/L (22-28) 01/26/18 05:12 ABG O2 Saturation 95.9 % (95-98) 01/26/18 05:12 ABG Base Excess 1.7 mmol/L (-2.0-3.0) 01/26/18 05:12 ABG Hemoglobin 12.8 g/dL (11.7-17.4) 01/26/18 05:12 ABG Carboxyhemoglobin 1.6 % (0.5-1.5) H 01/26/18 05:12 POC ABG HHb (Measured) 4.0 % (0.0-5.0) 01/26/18 05:12 ABG Methemoglobin 1.0 % (0.0-3.0) 01/26/18 05:12 Jamey Test Na 01/26/18 05:12 ABG Potassium 4.0 mmol/L (3.6-5.2) 01/21/18 05:02 A-a O2 Difference 169.0 mm/Hg 01/26/18 05:12 Respiratory Index 2.4 01/26/18 05:12 Hgb O2 Saturation 93.4 % (95.0-98.0) L 01/26/18 05:12 Sodium 166.0 mmol/l (132-148) H* 01/21/18 05:02 Chloride 129.0 mmol/L (98-107) H 01/21/18 05:02 Glucose 325 mg/dl (75-110) H 01/21/18 05:02 Lactate 1.2 mmol/L (0.7-2.1) 01/21/18 05:02 Vent Mode Prvc 01/26/18 05:12 Mechanical Rate 16 01/26/18 05:12 FiO2 40.0 % 01/26/18 05:12 Tidal Volume 500 01/26/18 05:12 PEEP 5 01/26/18 05:12 Pressure Support 12 01/20/18 05:18 CPAP 5 01/20/18 05:18 Crit Value Called To Vanessa craft manager nicu 01/21/18 05:02 Crit Value Called By Cathy lindsey rt 01/21/18 05:02 Crit Value Read Back Y 01/21/18 05:02 Blood Gas Notified Time 600 01/21/18 05:02 Sodium 149 mmol/L (132-148) H 01/26/18 06:19 Potassium 3.7 mmol/L (3.6-5.2) 01/26/18 06:19 Chloride 111 mmol/L (98-107) H 01/26/18 06:19 Carbon Dioxide 26 mmol/L (22-30) 01/26/18 06:19 Anion Gap 16 (10-20) 01/26/18 06:19 BUN 37 mg/dL (9-20) H 01/26/18 06:19 Creatinine 1.3 mg/dL (0.8-1.5) 01/26/18 06:19 Est GFR ( Amer) > 60 01/26/18 06:19 Est GFR (Non-Af Amer) 55 01/26/18 06:19 POC Glucose (mg/dL) 138 mg/dL (65-110) H 01/26/18 16:29 Random Glucose 154 mg/dL (75-110) H 01/26/18 06:19 Hemoglobin A1c 9.2 % (4.2-6.5) H 01/16/18 12:27 Serum Osmolality 370 mosm/kg (272-300) H 01/20/18 08:51 Calcium 8.3 mg/dl (8.6-10.4) L 01/26/18 06:19 Phosphorus 3.3 mg/dL (2.5-4.5) 01/23/18 06:34 Magnesium 2.6 mg/dL (1.6-2.3) H 01/23/18 06:34 Total Bilirubin 0.4 mg/dL (0.2-1.3) 01/26/18 06:19 AST 73 U/L (17-59) H D 01/26/18 06:19 ALT 85 U/L (21-72) H 01/26/18 06:19 Alkaline Phosphatase 104 U/L (38-126) 01/26/18 06:19 Troponin I < 0.0120 ng/mL (0.00-0.120) 01/16/18 12:27 Total Protein 6.1 g/dL (6.3-8.3) L 01/26/18 06:19 Albumin 2.9 g/dL (3.5-5.0) L 01/26/18 06:19 Globulin 3.2 gm/dL (2.2-3.9) 01/26/18 06:19 Albumin/Globulin Ratio 0.9 (1.0-2.1) L 01/26/18 06:19 Triglycerides 115 mg/dL (0-149) 01/16/18 12:27 Cholesterol 186 mg/dL (0-199) 01/16/18 12:27 LDL Cholesterol Direct 103 mg/dL (0-129) 01/16/18 12:27 HDL Cholesterol 49 mg/dL (30-70) 01/16/18 12:27 Procalcitonin 0.13 NG/ML (0.19-0.49) L 01/23/18 06:34 Arterial Blood Potassium 4.0 mmol/L (3.6-5.2) 01/21/18 05:02 Urine Color Yellow (YELLOW) 01/21/18 17:43 Urine Clarity Hazy (Clear) 01/21/18 17:43 Urine pH 5.0 (5.0-8.0) 01/21/18 17:43 Ur Specific [place] 1.029 (1.003-1.030) 01/21/18 17:43 Urine Protein 1+ mg/dL (NEGATIVE) H 01/21/18 17:43 Urine Glucose (UA) 3+ mg/dL (Normal) H 01/21/18 17:43 Urine Ketones Negative mg/dL (NEGATIVE) 01/21/18 17:43 Urine Blood 1+ (NEGATIVE) H 01/21/18 17:43 Urine Nitrate Negative (NEGATIVE) 01/21/18 17:43 Urine Bilirubin Negative (NEGATIVE) 01/21/18 17:43 Urine Urobilinogen Normal mg/dL (0.2-1.0) 01/21/18 17:43 Ur Leukocyte Esterase Neg Minh/uL (Negative) 01/21/18 17:43 Urine WBC (Auto) 2 /hpf (0-5) 01/21/18 17:43 Urine RBC (Auto) 4 /hpf (0-3) H 01/21/18 17:43 Ur Squamous Epith Cells < 1 /hpf (0-5) 01/21/18 17:43 Urine Bacteria Occ (<OCC) H 01/21/18 17:43 Urine Yeast (Budding) Few /hpf (NEGATIVE) H 01/21/18 17:43 Urine Osmolality 756 mosm/kg (300-1000) 01/20/18 18:08 Ur Random Sodium 49 mmol/L 01/20/18 18:08 Ur Random Potassium 25.0 mmol/L 01/21/18 04:10 Ur Random Urea Nitrogn 758 mg/dL 01/20/18 18:08 Ur Random Glucose 4679 mg/dL 01/20/18 18:08 Urine Chloride 44 mmol/L (32-290) 01/20/18 18:08 Urine Opiates Screen Negative (NEGATIVE) 01/18/18 10:45 Urine Methadone Screen Negative (NEGATIVE) 01/18/18 10:45 Ur Barbiturates Screen Negative (NEGATIVE) 01/18/18 10:45 Ur Phencyclidine Scrn Negative (NEGATIVE) 01/18/18 10:45 Ur Amphetamines Screen Negative (NEGATIVE) 01/18/18 10:45 U Benzodiazepines Scrn Positive (NEGATIVE) 01/18/18 10:45 U Oth Cocaine Metabols Negative (NEGATIVE) 01/18/18 10:45 U Cannabinoids Screen Negative (NEGATIVE) 01/18/18 10:45 Ur L.pneumophila Ag Negative (NEGATIVE) 01/17/18 15:02 Mycoplasma pneumon IgM Negative (NEGATIVE) 01/17/18 15:02 Blood Type O POSITIVE 01/16/18 12:27 Antibody Screen Negative 01/16/18 12:27 Discharge Exam - Head Exam Head Exam: ATRAUMATIC, NORMAL INSPECTION Discharge Plan - Follow Up Plan Condition: SERIOUS Disposition: HOME/ ROUTINE Instructions: Altered Mental Status (GEN)
--- NOTE | 2018-01-26 16:45 | CP.PCM.CON ---
History of Present Illness - History of Present Illness History of Present Illness: 67 year old male presented to the ED brought in by ambulance after being found unresponsive by his daughter. . Patient was found in his bed unresponsive and was brought into the hospital. Patient was seizing and in respiratory distress; therefore he was intubated. Patient remians altered in ICU with low grade fever and unclear source ID consulted for this . No recent travel or ill contacts Remains intubated and obtunded MRI report pending PMHx: CAD s/p CABG, multiple CVA, PVD, DM, HTN PSHx: CABG 15 years ago Allergies: NKA Social: Per family, he lives alone. Non-smoker, occasional alcohol. No drug use. Family Hx: No history of seizure disorder in the family. PMD: Dr. Rose Review of Systems - Review of Systems Systems not reviewed;Unavailable: Altered Mental Status - Constitutional Constitutional: As Per HPI - EENT Eyes: absent: As Per HPI, Blind Spots, Blurred Vision, Change in Vision, Decreased Night Vision, Diplopia, Discharge, Dry Eye, Exophthalmos, Floaters, Irritation, Itchy Eyes, Loss of Peripheral Vision, Pain, Photophobia, Requires Corrective Lenses, Sees Flashes, Spots in Vision, Tunnel Vision, Other Visual Disturbances, Loss of Vision, Other Ears: absent: As Per HPI, Decreased Hearing, Ear Discharge, Ear Pain, Tinnitus, Abnormal Hearing, Disequilibrium, Dizziness, Other Nose/Mouth/Throat: absent: As Per HPI, Epistaxis, Nasal Congestion, Nasal Discharge, Nasal Obstruction, Nasal Trauma, Nose Pain, Post Nasal Drip, Sinus Pain, Sinus Pressure, Bleeding Gums, Change in Voice, Dental Pain, Dry Mouth, Dysphagia, Halitosis, Hoarsness, Lip Swelling, Mouth Lesions, Mouth Pain, Odynophagia, Sore Throat, Throat Swelling, Tongue Swelling, Facial Pain, Neck Pain, Neck Mass, Other - Cardiovascular Cardiovascular: As Per HPI - Respiratory Respiratory: As Per HPI - Gastrointestinal Gastrointestinal: absent: As Per HPI, Abdominal Pain, Belching, Bloating, Change in Bowel Habits, Change in Stool Character, Coffee Ground Emesis, Constipation, Cramping, Diarrhea, Dyspepsia, Dysphagia, Early Satiety, Excessive Flatus, Fecal Incontinence, Heartburn, Hematemesis, Hematochezia, Loose Stools, Melena, Nausea, Odynophagia, Temesmus, Vomiting, Other - Genitourinary Genitourinary: absent: As Per HPI, Change in Urinary Stream, Difficulty Urinating, Dysuria, Flank Pain, Hematuria, Pyuria, Nocturia, Urinary Incontinence, Urinary Frequency, Urinary Hesitance, Urinary Urgency, Voiding Freq/Small Amts, Freq UTI, Hx Renal/Bladder Calculi, Hx /Renal Surgery, Bladder Distension, Other - Musculoskeletal Musculoskeletal: absent: As Per HPI, Abnormal Gait, Arthralgias, Atrophy, Back Pain, Deformity, Joint Swelling, Limited Range of Motion, Loss of Height, Muscle Cramps, Muscle Weakness, Myalgias, Neck Pain, Numbness, Radiating Pain into Limb, Stiffness, Tingling, Other - Integumentary Integumentary: absent: As Per HPI, Acne, Alopecia, Bleeding Lesions, Change in Hair, Change in Nails, Change in Pigmentation, Changing Lesions, Dry Skin, Erythema, Furuncle, Hirsutism, Lesions, New Lesions, Non-Healing Lesions, Photosensitivity, Pruritus, Rash, Skin Pain, Skin Ulcer, Sores, Striae, Swelling , Unusual Bruising, Wounds, Jaundice, Other - Neurological Neurological: absent: As Per HPI, Abnormal Gait, Abnormal Hearing, Abnormal Movements, Abnormal Speech, Behavioral Changes, Burning Sensations, Confusion, Convulsions, Disequilibrium, Dizziness, Numbness, Focal Weakness, Frequent Falls , Headaches, Lack of Coordination, Loss of Vision, Memory Loss, Paresthesias, Radicular Pain, Restless Legs, Sensory Deficit, Syncope, Tingling, Tremor, Vertigo, Weakness, Other Visual Disturbances, Other - Psychiatric Psychiatric: absent: As Per HPI, Abnormal Sleep Pattern, Anhedonia, Anxiety, Auditory Hallucinations, Behavioral Changes, Change in Appetite, Change in Libido, Confusion, Depression, Difficulty Concentrating, Hallucinations, Homicidal Ideation, Hopelessness, Irritability, Memory Loss, Mood Swings, Panic Attacks, Paranoia, Suicidal Ideation, Visual Hallucinations, Tactile Hallucinations, Other - Endocrine Endocrine: absent: As Per HPI, Change in Body Appearance, Change in Libido, Cold Intolorance, Deepening of Voice, Excessive Sweating, Fatigue, Flushing, Heat Intolorance, Increase in Ring/Shoe/Hat Size, Palpitations, Polydipsia, Polyphagia, Polyuria, Other - Hematologic/Lymphatic Hematologic: absent: As Per HPI, Easy Bleeding, Easy Bruising, Lymphadenopathy, Other Past Patient History - Past Medical History & Family History Past Medical History?: Yes - Past Social History Smoking Status: Never Smoked - CARDIAC Hx Hypercholesterolemia: Yes Hx Hypertension: Yes - PULMONARY Hx Respiratory Disorders: Yes Other/Comment: s o b on exertion - NEUROLOGICAL Hx Neurological Disorder: No - HEENT Hx HEENT Problems: Yes Hx Cataracts: Yes (bilateral cat ext with iol) - RENAL Hx Chronic Kidney Disease: No - ENDOCRINE/METABOLIC Hx Endocrine Disorders: Yes Hx Diabetes Mellitus Type 2: Yes - HEMATOLOGICAL/ONCOLOGICAL Hx Blood Disorders: No - INTEGUMENTARY Hx Dermatological Problems: Yes Other/Comment: small ulcers both great toes - MUSCULOSKELETAL/RHEUMATOLOGICAL Hx Musculoskeletal Disorders: No Hx Falls: Yes - GASTROINTESTINAL Hx Gastrointestinal Disorders: No - GENITOURINARY/GYNECOLOGICAL Hx Genitourinary Disorders: No - PSYCHIATRIC Hx Substance Use: No - SURGICAL HISTORY Hx Coronary Artery Bypass Graft: Yes (8 yrs ago) - ANESTHESIA Hx Anesthesia: Yes Hx Anesthesia Reactions: No Hx Malignant Hyperthermia: No Meds Allergies/Adverse Reactions: Allergies Allergy/AdvReac Type Severity Reaction Status Date / Time No Known Allergies Allergy Verified 01/08/18 19:23 - Medications Medications: Current Medications Acetaminophen (Tylenol 650mg/20.3ml Solution Ud) 650 mg NG Q6 PRN PRN Reason: GIVE FOR TEMP. 100*F OR ABOVE Last Admin: 01/26/18 16:13 Dose: 650 mg Albuterol Sulfate (Albuterol 0.083% Inhal Lynne (2.5 Mg/3 Ml) Ud) 2.5 mg IH RQ6 [facility] Last Admin: 01/26/18 13:39 Dose: 2.5 mg Albuterol/Ipratropium (Duoneb 3 Mg/0.5 Mg (3 Ml) Ud) 3 ml INH RQ6 [facility] Aspirin (Aspirin Chewable) 81 mg PO DAILY [facility] Last Admin: 01/26/18 10:28 Dose: 81 mg Carvedilol (Coreg) 12.5 mg PO BID [facility] Last Admin: 01/26/18 10:28 Dose: 12.5 mg Heparin Sodium (Porcine) (Heparin) 5,000 units SC Q8 [facility] Last Admin: 01/23/18 15:08 Dose: Not Given Hydralazine HCl (Apresoline) 50 mg PO Q8 [facility] Last Admin: 01/26/18 14:33 Dose: 50 mg Levetiracetam 1,000 mg/ Sodium (Chloride) 110 mls @ 440 mls/hr IVPB Q12H [facility] Last Admin: 01/26/18 10:00 Dose: Not Given Dextrose (Dextrose 5% In Water 1000 Ml) 1,000 mls @ 100 mls/hr IV .Q10H [facility] Last Admin: 01/26/18 13:11 Dose: 100 mls/hr Insulin Human Regular 100 unit (/ Sodium Chloride) 100 mls @ 1.97 mls/hr IV .Q24H PRN; Protocol; 0.02 UNIT/KG/HR PRN Reason: Serum glucose - see protocol Last Titration: 01/26/18 15:53 Dose: 0.01 unit/kg/hr, 1.5 mls/hr Insulin Glargine (Lantus) 20 unit SC Q12 [facility] Last Admin: 01/26/18 10:29 Dose: 20 units Pantoprazole Sodium (Protonix Susp) 40 mg PO 1000 [facility] Last Admin: 01/26/18 10:28 Dose: 40 mg Rosuvastatin Calcium (Crestor) 10 mg PO HS [facility] Last Admin: 01/25/18 21:14 Dose: 10 mg Sennosides (Senokot Tab) 8.6 mg PO DAILY [facility] Last Admin: 01/26/18 10:28 Dose: 8.6 mg Physical Exam - Constitutional Appears: Confused, Chronically Ill - Head Exam Head Exam: ATRAUMATIC, NORMOCEPHALIC - Eye Exam Eye Exam: PERRL. absent: Scleral icterus - ENT Exam ENT Exam: Mucous Membranes Dry Additional comments: ETT + - Neck Exam Neck exam: Negative for: Lymphadenopathy - Respiratory Exam Respiratory Exam: Decreased Breath Sounds, Clear to Auscultation Bilateral - Cardiovascular Exam Cardiovascular Exam: REGULAR RHYTHM, +S1, +S2 - GI/Abdominal Exam GI & Abdominal Exam: Diminished Bowel Sounds, Soft. absent: Tenderness - Rectal Exam Rectal Exam: Deferred - Exam Exam: NORMAL INSPECTION - Extremities Exam Extremities exam: Positive for: pedal edema, pedal pulses present. Negative for : calf tenderness, tenderness - Back Exam Back exam: absent: CVA tenderness (L), CVA tenderness (R) - Neurological Exam Neurological exam: Altered - Psychiatric Exam Psychiatric exam: Depressed - Skin Skin Exam: Dry Results - Vital Signs Recent Vital Signs: Last Vital Signs Temp 100.4 F H 01/26/18 16:13 Pulse 68 01/26/18 15:08 Resp 25 H 01/26/18 15:08 BP 140/55 L 01/26/18 15:08 Pulse Ox 98 01/26/18 15:08 - Labs Result Diagrams: 01/26/18 06:19 01/26/18 06:19 Labs: Laboratory Results - last 24 hr 01/25/18 01/25/18 01/25/18 17:43 18:57 19:48 WBC RBC Hgb Hct MCV MCH MCHC RDW Plt Count MPV Neut % (Auto) Lymph % (Auto) Mower % (Auto) Eos % (Auto) Baso % (Auto) Neut # (Auto) Lymph # (Auto) Mower # (Auto) Eos # (Auto) Baso # (Auto) Differential Comment Puncture Site pCO2 pO2 HCO3 ABG pH ABG Total CO2 ABG O2 Saturation ABG Base Excess ABG Hemoglobin ABG Carboxyhemoglobin POC ABG HHb (Measured) ABG Methemoglobin Jamey Test A-a O2 Difference Respiratory Index Hgb O2 Saturation Vent Mode Mechanical Rate FiO2 Tidal Volume PEEP Sodium Potassium Chloride Carbon Dioxide Anion Gap BUN Creatinine Est GFR ( Amer) Est GFR (Non-Af Amer) POC Glucose (mg/dL) 462 H* 368 H 358 H Random Glucose Calcium Total Bilirubin AST ALT Alkaline Phosphatase Total Protein Albumin Globulin Albumin/Globulin Ratio 01/25/18 01/25/18 01/25/18 21:04 22:02 23:02 WBC RBC Hgb Hct MCV MCH MCHC RDW Plt Count MPV Neut % (Auto) Lymph % (Auto) Mower % (Auto) Eos % (Auto) Baso % (Auto) Neut # (Auto) Lymph # (Auto) Mower # (Auto) Eos # (Auto) Baso # (Auto) Differential Comment Puncture Site pCO2 pO2 HCO3 ABG pH ABG Total CO2 ABG O2 Saturation ABG Base Excess ABG Hemoglobin ABG Carboxyhemoglobin POC ABG HHb (Measured) ABG Methemoglobin Jamey Test A-a O2 Difference Respiratory Index Hgb O2 Saturation Vent Mode Mechanical Rate FiO2 Tidal Volume PEEP Sodium Potassium Chloride Carbon Dioxide Anion Gap BUN Creatinine Est GFR ( Amer) Est GFR (Non-Af Amer) POC Glucose (mg/dL) 292 H 180 H 150 H Random Glucose Calcium Total Bilirubin AST ALT Alkaline Phosphatase Total Protein Albumin Globulin Albumin/Globulin Ratio 01/26/18 01/26/18 01/26/18 00:03 00:58 02:01 WBC RBC Hgb Hct MCV MCH MCHC RDW Plt Count MPV Neut % (Auto) Lymph % (Auto) Mower % (Auto) Eos % (Auto) Baso % (Auto) Neut # (Auto) Lymph # (Auto) Mower # (Auto) Eos # (Auto) Baso # (Auto) Differential Comment Puncture Site pCO2 pO2 HCO3 ABG pH ABG Total CO2 ABG O2 Saturation ABG Base Excess ABG Hemoglobin ABG Carboxyhemoglobin POC ABG HHb (Measured) ABG Methemoglobin Jamey Test A-a O2 Difference Respiratory Index Hgb O2 Saturation Vent Mode Mechanical Rate FiO2 Tidal Volume PEEP Sodium Potassium Chloride Carbon Dioxide Anion Gap BUN Creatinine Est GFR ( Amer) Est GFR (Non-Af Amer) POC Glucose (mg/dL) 117 H 136 H 176 H Random Glucose Calcium Total Bilirubin AST ALT Alkaline Phosphatase Total Protein Albumin Globulin Albumin/Globulin Ratio 01/26/18 01/26/18 01/26/18 03:07 04:15 04:48 WBC RBC Hgb Hct MCV MCH MCHC RDW Plt Count MPV Neut % (Auto) Lymph % (Auto) Mower % (Auto) Eos % (Auto) Baso % (Auto) Neut # (Auto) Lymph # (Auto) Mower # (Auto) Eos # (Auto) Baso # (Auto) Differential Comment Puncture Site pCO2 pO2 HCO3 ABG pH ABG Total CO2 ABG O2 Saturation ABG Base Excess ABG Hemoglobin ABG Carboxyhemoglobin POC ABG HHb (Measured) ABG Methemoglobin Jamey Test A-a O2 Difference Respiratory Index Hgb O2 Saturation Vent Mode Mechanical Rate FiO2 Tidal Volume PEEP Sodium Potassium Chloride Carbon Dioxide Anion Gap BUN Creatinine Est GFR ( Amer) Est GFR (Non-Af Amer) POC Glucose (mg/dL) 150 H 152 H 148 H Random Glucose Calcium Total Bilirubin AST ALT Alkaline Phosphatase Total Protein Albumin Globulin Albumin/Globulin Ratio 01/26/18 01/26/18 01/26/18 05:12 06:04 06:19 WBC 10.6 RBC 4.10 L Hgb 12.9 Hct 37.8 MCV 92.2 MCH 31.4 H MCHC 34.0 RDW 12.2 Plt Count 122 L MPV 12.9 H Neut % (Auto) 82.1 H Lymph % (Auto) 12.6 L Mower % (Auto) 4.1 Eos % (Auto) 1.0 Baso % (Auto) 0.2 Neut # (Auto) 8.7 H Lymph # (Auto) 1.3 Mower # (Auto) 0.4 Eos # (Auto) 0.1 Baso # (Auto) 0.0 Differential Comment Puncture Site Rb pCO2 38 pO2 69 L HCO3 26.2 ABG pH 7.44 ABG Total CO2 27.0 ABG O2 Saturation 95.9 ABG Base Excess 1.7 ABG Hemoglobin 12.8 ABG Carboxyhemoglobin 1.6 H POC ABG HHb (Measured) 4.0 ABG Methemoglobin 1.0 Jamey Test Na A-a O2 Difference 169.0 Respiratory Index 2.4 Hgb O2 Saturation 93.4 L Vent Mode Prvc Mechanical Rate 16 FiO2 40.0 Tidal Volume 500 PEEP 5 Sodium Potassium Chloride Carbon Dioxide Anion Gap BUN Creatinine Est GFR ( Amer) Est GFR (Non-Af Amer) POC Glucose (mg/dL) 136 H Random Glucose Calcium Total Bilirubin AST ALT Alkaline Phosphatase Total Protein Albumin Globulin Albumin/Globulin Ratio 01/26/18 01/26/18 01/26/18 06:19 06:45 07:38 WBC RBC Hgb Hct MCV MCH MCHC RDW Plt Count MPV Neut % (Auto) Lymph % (Auto) Mower % (Auto) Eos % (Auto) Baso % (Auto) Neut # (Auto) Lymph # (Auto) Mower # (Auto) Eos # (Auto) Baso # (Auto) Differential Comment Puncture Site pCO2 pO2 HCO3 ABG pH ABG Total CO2 ABG O2 Saturation ABG Base Excess ABG Hemoglobin ABG Carboxyhemoglobin POC ABG HHb (Measured) ABG Methemoglobin Jamey Test A-a O2 Difference Respiratory Index Hgb O2 Saturation Vent Mode Mechanical Rate FiO2 Tidal Volume PEEP Sodium 149 H Potassium 3.7 Chloride 111 H Carbon Dioxide 26 Anion Gap 16 BUN 37 H Creatinine 1.3 Est GFR ( Amer) > 60 Est GFR (Non-Af Amer) 55 POC Glucose (mg/dL) 133 H 147 H Random Glucose 154 H Calcium 8.3 L Total Bilirubin 0.4 AST 73 H D ALT 85 H Alkaline Phosphatase 104 Total Protein 6.1 L Albumin 2.9 L Globulin 3.2 Albumin/Globulin Ratio 0.9 L 01/26/18 01/26/18 01/26/18 10:18 11:20 12:08 WBC RBC Hgb Hct MCV MCH MCHC RDW Plt Count MPV Neut % (Auto) Lymph % (Auto) Mower % (Auto) Eos % (Auto) Baso % (Auto) Neut # (Auto) Lymph # (Auto) Mower # (Auto) Eos # (Auto) Baso # (Auto) Differential Comment Puncture Site pCO2 pO2 HCO3 ABG pH ABG Total CO2 ABG O2 Saturation ABG Base Excess ABG Hemoglobin ABG Carboxyhemoglobin POC ABG HHb (Measured) ABG Methemoglobin Jamey Test A-a O2 Difference Respiratory Index Hgb O2 Saturation Vent Mode Mechanical Rate FiO2 Tidal Volume PEEP Sodium Potassium Chloride Carbon Dioxide Anion Gap BUN Creatinine Est GFR ( Amer) Est GFR (Non-Af Amer) POC Glucose (mg/dL) 271 H 290 H 217 H Random Glucose Calcium Total Bilirubin AST ALT Alkaline Phosphatase Total Protein Albumin Globulin Albumin/Globulin Ratio 01/26/18 01/26/18 01/26/18 13:18 14:49 15:39 WBC RBC Hgb Hct MCV MCH MCHC RDW Plt Count MPV Neut % (Auto) Lymph % (Auto) Mower % (Auto) Eos % (Auto) Baso % (Auto) Neut # (Auto) Lymph # (Auto) Mower # (Auto) Eos # (Auto) Baso # (Auto) Differential Comment Puncture Site pCO2 pO2 HCO3 ABG pH ABG Total CO2 ABG O2 Saturation ABG Base Excess ABG Hemoglobin ABG Carboxyhemoglobin POC ABG HHb (Measured) ABG Methemoglobin Jamey Test A-a O2 Difference Respiratory Index Hgb O2 Saturation Vent Mode Mechanical Rate FiO2 Tidal Volume PEEP Sodium Potassium Chloride Carbon Dioxide Anion Gap BUN Creatinine Est GFR ( Amer) Est GFR (Non-Af Amer) POC Glucose (mg/dL) 286 H 125 H 108 Random Glucose Calcium Total Bilirubin AST ALT Alkaline Phosphatase Total Protein Albumin Globulin Albumin/Globulin Ratio 01/26/18 16:29 WBC RBC Hgb Hct MCV MCH MCHC RDW Plt Count MPV Neut % (Auto) Lymph % (Auto) Mower % (Auto) Eos % (Auto) Baso % (Auto) Neut # (Auto) Lymph # (Auto) Mower # (Auto) Eos # (Auto) Baso # (Auto) Differential Comment Puncture Site pCO2 pO2 HCO3 ABG pH ABG Total CO2 ABG O2 Saturation ABG Base Excess ABG Hemoglobin ABG Carboxyhemoglobin POC ABG HHb (Measured) ABG Methemoglobin Jamey Test A-a O2 Difference Respiratory Index Hgb O2 Saturation Vent Mode Mechanical Rate FiO2 Tidal Volume PEEP Sodium Potassium Chloride Carbon Dioxide Anion Gap BUN Creatinine Est GFR ( Amer) Est GFR (Non-Af Amer) POC Glucose (mg/dL) 138 H Random Glucose Calcium Total Bilirubin AST ALT Alkaline Phosphatase Total Protein Albumin Globulin Albumin/Globulin Ratio Assessment & Plan (1) Altered mental status Status: Acute (2) Seizure Status: Acute (3) Status epilepticus Status: Acute (4) COPD (chronic obstructive pulmonary disease) Status: Acute (5) Congestive heart failure Status: Acute (6) Diabetes Status: Acute - Assessment and Plan (Free Text) Assessment: 67 yo male with hx of CAD s/p CABG, multiple CVA, PVD, DM, HTN admitted with seizures and AMS still having low grade fever Await results of MRI and LP will reculture and start empiric rx
--- NOTE | 2018-01-26 17:02 | CP.PCM.PN ---
Subjective - Date & Time of Evaluation Date of Evaluation: 01/26/18 Time of Evaluation: 17:01 - Subjective Subjective: pt is seen and examined, follow up consult is dictated #[id number] Objective - Vital Signs/Intake and Output Vital Signs (last 24 hours): Temp Pulse Resp BP Pulse Ox 100.4 F H 68 25 H 140/55 L 98 01/26/18 16:13 01/26/18 15:08 01/26/18 15:08 01/26/18 15:08 01/26/18 15:08 Intake and Output: 01/26/18 01/26/18 06:59 18:59 Intake Total 2871 965.4 Output Total 970 360 Balance 1901 605.4 - Medications Medications: Current Medications Acetaminophen (Tylenol 650mg/20.3ml Solution Ud) 650 mg NG Q6 PRN PRN Reason: GIVE FOR TEMP. 100*F OR ABOVE Last Admin: 01/26/18 16:13 Dose: 650 mg Albuterol Sulfate (Albuterol 0.083% Inhal Lynne (2.5 Mg/3 Ml) Ud) 2.5 mg IH RQ6 [facility] Last Admin: 01/26/18 13:39 Dose: 2.5 mg Albuterol/Ipratropium (Duoneb 3 Mg/0.5 Mg (3 Ml) Ud) 3 ml INH RQ6 [facility] [place] Aspirin (Aspirin Chewable) 81 mg PO DAILY [facility] Last Admin: 01/26/18 10:28 Dose: 81 mg Carvedilol (Coreg) 12.5 mg PO BID [facility] [place] Last Admin: 01/26/18 10:28 Dose: 12.5 mg Heparin Sodium (Porcine) (Heparin) 5,000 units SC Q8 [facility] [place] Last Admin: 01/23/18 15:08 Dose: Not Given Hydralazine HCl (Apresoline) 50 mg PO Q8 [facility] [place] Last Admin: 01/26/18 14:33 Dose: 50 mg Levetiracetam 1,000 mg/ Sodium (Chloride) 110 mls @ 440 mls/hr IVPB Q12H [facility] [place] Last Admin: 01/26/18 10:00 Dose: Not Given Dextrose (Dextrose 5% In Water 1000 Ml) 1,000 mls @ 100 mls/hr IV .Q10H [facility] [place] Last Admin: 01/26/18 13:11 Dose: 100 mls/hr Insulin Human Regular 100 unit (/ Sodium Chloride) 100 mls @ 1.97 mls/hr IV .Q24H PRN; Protocol; 0.02 UNIT/KG/HR PRN Reason: Serum glucose - see protocol Last Titration: 01/26/18 16:29 Dose: 0.05 unit/kg/hr, 5 mls/hr Acyclovir 750 mg/ Sodium (Chloride) 100 mls @ 100 mls/hr IV Q12H [facility] PRN Reason: Protocol Insulin Glargine (Lantus) 20 unit SC Q12 [facility] [place] Last Admin: 01/26/18 10:29 Dose: 20 units Pantoprazole Sodium (Protonix Susp) 40 mg PO 1000 [facility] [place] Last Admin: 01/26/18 10:28 Dose: 40 mg Rosuvastatin Calcium (Crestor) 10 mg PO HS [facility] [place] Last Admin: 01/25/18 21:14 Dose: 10 mg Sennosides (Senokot Tab) 8.6 mg PO DAILY [facility] [place] Last Admin: 01/26/18 10:28 Dose: 8.6 mg - Labs Labs: 01/26/18 06:19 01/26/18 06:19 PT 10.6 SECONDS (9.7-12.2) 01/16/18 12:27 INR 0.9 01/16/18 12:27 APTT 33 SECONDS (21-34) 01/16/18 12:27
[2018-01-26 18:40] LABS: SQUAMOUS EPITHIAL 1 /hpf (0-5); URINE BACTERIA RARE (<OCC); URINE BILIRUBIN NEGATIVE (NEGATIVE); URINE BLOOD 2+ (NEGATIVE); URINE CLARITY Hazy (Clear); URINE COLOR Yellow (YELLOW); URINE GLUCOSE (UA) 3+ mg/dL (Normal); URINE LEUKOCYTE ESTERASE 2+ Leu/uL (Negative); URINE PROTEIN 2+ mg/dL (NEGATIVE)
[2018-01-26] MEDS: Albuterol-Ipratrop 3 mg / 0.5 (3 ml) UD INH SCH (19:28)
[2018-01-26 20:18] LABS: INFLUENZA A B NEGATIVE FOR FLU A/B (NEGATIVE)
[2018-01-26 21:10] LABS: RAPID PLASMA REAGIN NONREACTIVE (NONREACTIVE)
[2018-01-26] MEDS: Linezolid 600 mg in D5W 300 ml 600 MG/300 ML BAG IVPB SCH (21:10)
--- NOTE | 2018-01-26 23:18 | CP.PCM.PN ---
Subjective - Date & Time of Evaluation Date of Evaluation: 01/26/18 Time of Evaluation: 18:30 - Subjective Subjective: pt was seen and evaluated today, pt MRI was done at [facility] and its neg for CVA pt is still on ventilator, febrile, sugars are down, family was on bedside and i discussed with them pt medical condition in detail Objective - Vital Signs/Intake and Output Vital Signs (last 24 hours): Temp Pulse Resp BP Pulse Ox 99.7 F H 76 27 H 179/41 H 99 01/26/18 20:00 01/26/18 23:00 01/26/18 23:00 01/26/18 22:08 01/26/18 23:00 Intake and Output: 01/26/18 01/27/18 18:59 06:59 Intake Total 1595.5 1369.7 Output Total 600 320 Balance 995.5 1049.7 - Medications Medications: Current Medications Acetaminophen (Tylenol 650mg/20.3ml Solution Ud) 650 mg NG Q6 PRN PRN Reason: GIVE FOR TEMP. 100*F OR ABOVE Last Admin: 01/26/18 16:13 Dose: 650 mg Albuterol Sulfate (Albuterol 0.083% Inhal Lynne (2.5 Mg/3 Ml) Ud) 2.5 mg IH RQ6 [facility] Last Admin: 01/26/18 13:39 Dose: 2.5 mg Albuterol/Ipratropium (Duoneb 3 Mg/0.5 Mg (3 Ml) Ud) 3 ml INH RQ6 [facility] Last Admin: 01/26/18 19:28 Dose: 3 ml Aspirin (Aspirin Chewable) 81 mg PO DAILY [facility] Last Admin: 01/26/18 10:28 Dose: 81 mg Carvedilol (Coreg) 12.5 mg PO BID [facility] Last Admin: 01/26/18 18:37 Dose: 12.5 mg Heparin Sodium (Porcine) (Heparin) 5,000 units SC Q8 [facility] Last Admin: 01/23/18 15:08 Dose: Not Given Hydralazine HCl (Apresoline) 50 mg PO Q8 [facility] Last Admin: 01/26/18 21:07 Dose: 50 mg Levetiracetam 1,000 mg/ Sodium (Chloride) 110 mls @ 440 mls/hr IVPB Q12H [facility] Last Admin: 01/26/18 21:07 Dose: 440 mls/hr Insulin Human Regular 100 unit (/ Sodium Chloride) 100 mls @ 1.97 mls/hr IV .Q24H PRN; Protocol; 0.02 UNIT/KG/HR PRN Reason: Serum glucose - see protocol Last Titration: 01/26/18 21:00 Dose: 0.05 unit/kg/hr, 5 mls/hr Acyclovir 750 mg/ Sodium (Chloride) 250 mls @ 100 mls/hr IV Q12H [facility] PRN Reason: Protocol Last Admin: 01/26/18 18:28 Dose: 100 mls/hr Linezolid (Zyvox 600mg/300ml D5w) 600 mg in 300 mls @ 200 mls/hr IVPB Q12H [facility] PRN Reason: Protocol Last Admin: 01/26/18 21:10 Dose: 200 mls/hr Ceftazidime 2 gm/ Sodium (Chloride) 100 mls @ 100 mls/hr IV Q12H [facility] PRN Reason: Protocol Last Admin: 01/26/18 20:55 Dose: 100 mls/hr Insulin Glargine (Lantus) 20 unit SC Q12 [facility] Last Admin: 01/26/18 21:08 Dose: 20 units Pantoprazole Sodium (Protonix Susp) 40 mg PO 1000 [facility] Last Admin: 01/26/18 10:28 Dose: 40 mg Rosuvastatin Calcium (Crestor) 10 mg PO HS [facility] Last Admin: 01/26/18 21:07 Dose: 10 mg Sennosides (Senokot Tab) 8.6 mg PO DAILY [facility] Last Admin: 01/26/18 10:28 Dose: 8.6 mg - Labs Labs: 01/26/18 06:19 01/26/18 06:19 PT 10.6 SECONDS (9.7-12.2) 01/16/18 12:27 INR 0.9 01/16/18 12:27 APTT 33 SECONDS (21-34) 01/16/18 12:27 - Constitutional Appears: No Acute Distress - Head Exam Head Exam: ATRAUMATIC, NORMAL INSPECTION, NORMOCEPHALIC - ENT Exam ENT Exam: Mucous Membranes Moist, Normal Exam - Respiratory Exam Respiratory Exam: Decreased Breath Sounds, Rales, NORMAL BREATHING PATTERN - GI/Abdominal Exam GI & Abdominal Exam: Soft, Hypoactive Bowel Sounds Assessment and Plan (1) Status epilepticus Assessment & Plan: rule out CVA MRI is neg Status: Acute (2) COPD (chronic obstructive pulmonary disease) Status: Acute (3) Congestive heart failure Status: Acute (4) Diabetes Assessment & Plan: taper insulin Status: Acute (5) Hypernatremia Status: Acute
[2018-01-27] MEDS: Acetaminophen 650mg/20.3ml solution UD NG PRN ×3 (00:19→16:05)
[2018-01-27] MEDS: Albuterol 0.083% Inhal Sol (2.5 mg/3 mL) UD IH SCH ×2 (01:41→07:45)
[2018-01-27] MEDS: Albuterol-Ipratrop 3 mg / 0.5 (3 ml) UD INH SCH ×4 (01:41→20:42)
[2018-01-27 05:44] LABS: ARTERIAL BLOOD GAS HCO3 25.8 mmol/L (21-28); ARTERIAL BLOOD GAS PCO2 36 mm/Hg (35-45); ARTERIAL BLOOD GAS PH 7.45 (7.35-7.45); ARTERIAL BLOOD GAS PO2 80 mm/Hg (80-100); ARTERIAL BLOOD GAS TCO2 26.1 mmol/L (22-28)
[2018-01-27 06:13] LABS: BASO % 0.3 % (0.0-2.0); EOS # 0.1 K/uL (0.0-0.7); EOS % 1.8 % (0.0-4.0); HEMOGLOBIN 12.2 g/dL (12.0-18.0); MEAN CELL VOLUME 91.4 fL (80.0-94.0); MEAN CORPUSCULAR HEMOGLOBIN 31.5 pg (27.0-31.0); MEAN CORPUSCULAR HGB CONC 34.5 g/dL (33.0-37.0); MEAN PLATELET VOLUME 12.6 fL (7.2-11.7); MONO # 0.3 K/uL (0.0-0.8); MONO % 4.3 % (0.0-10.0); NEUT # 6.5 K/uL (1.8-7.0); NEUT % 81.6 % (50.0-75.0); RBC 3.87 Mil/uL (4.40-5.90); RED CELL DISTRIBUTION WIDTH 12.3 % (11.5-14.5)
[2018-01-27 06:39] LABS: ALB/GLOB RATIO 0.9 (1.0-2.1); ALBUMIN 2.8 g/dL (3.5-5.0); ALT/SGPT 98 U/L (21-72); AST/SGOT 98 U/L (17-59); BLOOD UREA NITROGEN 33 mg/dL (9-20); GFR AFRICAN-AMERICAN > 60; GFR NON-AFRICAN AMERICAN > 60
[2018-01-27] MEDS: Insulin Human Regular 100 UNIT in Sodium Chloride 0.9% 99 ML IV PRN ×2 (06:43→08:23)
[2018-01-27 07:00] LABS: HEPATITIS B SURFACE AG Negative (NEGATIVE)
[2018-01-27 07:06] LABS: HEPATITIS A IGM NEGATIVE (NEGATIVE); HEPATITIS B CORE AB NEGATIVE (NEGATIVE)
[2018-01-27 07:18] LABS: HEPATITIS C ANTIBODY NEGATIVE (NEGATIVE)
--- NOTE | 2018-01-27 09:10 | RAD ---
HISTORY: follow up COMPARISON: Chest x-ray performed 01/26/18 TECHNIQUE: Chest, one view. FINDINGS: Endotracheal tube terminates approximately 4.5 cm above the rianna. Nasogastric tube extends expected location of the stomach. LUNGS: Hypoinflation. Biapical pleural thickening. Mild pulmonary venous congestion. Increased patchy opacities within the right lung apex may reflect atelectasis or pneumonia. PLEURA: No significant pleural effusion identified. No definite pneumothorax . CARDIOVASCULAR: Median sternotomy wires with evidence of CABG. Cardiomegaly. Atherosclerotic calcifications of the aorta. OSSEOUS STRUCTURES: Degenerative changes. Osseous demineralization. VISUALIZED UPPER ABDOMEN: Elevation of the right hemidiaphragm. OTHER FINDINGS: None. IMPRESSION: Support lines and tubes as above. Hypoinflation. Biapical pleural thickening. Mild pulmonary venous congestion. Increased patchy opacities within the medial right upper lobe may reflect atelectasis or pneumonia.
[2018-01-27] MEDS: Linezolid 600 mg in D5W 300 ml 600 MG/300 ML BAG IVPB SCH ×2 (10:02→22:12)
[2018-01-27] MEDS: levETIRAcetam 1,000 MG in Sodium Chloride 0.9% 100 ML IVPB SCH ×2 (10:02→22:00)
[2018-01-27] MEDS: (Lantus) Insulin Glargine, Recombinant SC SCH ×2 (10:03→21:03)
[2018-01-27] MEDS: Pantoprazole 40 mg Susp UD PO SCH (10:03)
[2018-01-27] MEDS ORDERED: Potassium Chloride 20 mEq/15 ml LIQ UD PO STA ×2 (14:11→15:32)
--- NOTE | 2018-01-27 14:26 | CP.PCM.PN ---
Subjective - Date & Time of Evaluation Date of Evaluation: 01/27/18 Time of Evaluation: 14:26 - Subjective Subjective: pt is seen and examined, follow up consult is dictated #[id number] Objective - Vital Signs/Intake and Output Vital Signs (last 24 hours): Temp Pulse Resp BP Pulse Ox 100.7 F H 66 26 H 141/48 L 99 01/27/18 10:04 01/27/18 13:07 01/27/18 13:07 01/27/18 13:07 01/27/18 13:07 Intake and Output: 01/27/18 01/27/18 06:59 18:59 Intake Total 2652.7 365 Output Total 860 2 Balance 1792.7 363 - Medications Medications: Current Medications Acetaminophen (Tylenol 650mg/20.3ml Solution Ud) 650 mg NG Q6 PRN PRN Reason: GIVE FOR TEMP. 100*F OR ABOVE Last Admin: 01/27/18 07:50 Dose: 650 mg Albuterol/Ipratropium (Duoneb 3 Mg/0.5 Mg (3 Ml) Ud) 3 ml INH RQ6 [facility] Last Admin: 01/27/18 13:54 Dose: 3 ml Aspirin (Aspirin Chewable) 81 mg PO DAILY [facility] Last Admin: 01/27/18 10:00 Dose: 81 mg Carvedilol (Coreg) 12.5 mg PO BID [facility] Last Admin: 01/27/18 10:00 Dose: 12.5 mg Heparin Sodium (Porcine) (Heparin) 5,000 units SC Q8 [facility] Last Admin: 01/23/18 15:08 Dose: Not Given Hydralazine HCl (Apresoline) 50 mg PO Q8 [facility] Last Admin: 01/27/18 14:14 Dose: 50 mg Levetiracetam 1,000 mg/ Sodium (Chloride) 110 mls @ 440 mls/hr IVPB Q12H [facility] Last Admin: 01/27/18 10:02 Dose: 440 mls/hr Acyclovir 750 mg/ Sodium (Chloride) 250 mls @ 100 mls/hr IV Q12H [facility] PRN Reason: Protocol Last Admin: 01/27/18 06:42 Dose: 100 mls/hr Linezolid (Zyvox 600mg/300ml D5w) 600 mg in 300 mls @ 200 mls/hr IVPB Q12H [facility] PRN Reason: Protocol Last Admin: 01/27/18 10:02 Dose: 200 mls/hr Ceftazidime 2 gm/ Sodium (Chloride) 100 mls @ 100 mls/hr IV Q12H [facility] PRN Reason: Protocol Last Admin: 01/27/18 07:45 Dose: 100 mls/hr Insulin Glargine (Lantus) 20 unit SC Q12 [facility] Last Admin: 01/27/18 10:03 Dose: 20 units Insulin Human Regular (Novolin R) 0 unit SC Q6 [facility] PRN Reason: Protocol Pantoprazole Sodium (Protonix Susp) 40 mg PO 1000 [facility] Last Admin: 01/27/18 10:03 Dose: 40 mg Rosuvastatin Calcium (Crestor) 10 mg PO HS [facility] Last Admin: 01/26/18 21:07 Dose: 10 mg Sennosides (Senokot Tab) 8.6 mg PO DAILY [facility] Last Admin: 01/27/18 14:14 Dose: 8.6 mg - Labs Labs: 01/27/18 06:03 01/27/18 06:03 PT 10.6 SECONDS (9.7-12.2) 01/16/18 12:27 INR 0.9 01/16/18 12:27 APTT 33 SECONDS (21-34) 01/16/18 12:27
--- NOTE | 2018-01-27 17:44 | CP.CCUPN ---
CCU Subjective - Physician Review Events Since Last Encounter (Free Text): 01/27/18 17:44 Patient with a history of coronary artery disease, CABG, CVA PVD diabetes hypertension multiple CVA in the past. Admitted to the hospital with recurrent seizure activities. Patient was also unresponsive in the beginning. Patient was intubated for respiratory insufficiency. During the stay in the ICU patient was closely monitored neurosurgical point of view. EEG was done. Also MRI of the brain, the report is pending. Patient currently on ventilator. This morning patient had very high fever 103. On examination: On ventilator. Patient is having edema upper extremities. Prevacid increasing stiffness noted Patient is responding to deep stability. Opening his eyes, and also focusing. Patient localizing the pain Extensor Pupils are equal reacting bilaterally Patient daughter at bedside spoke to the patient related to Chest x-ray nonspecific Labs reviewed in Sodium is improving Assessment and recommendation: 67-year-old male with history of CAD had CABG CVA PVD diabetes hypertension. Admitted with seizures activity despite insufficiency currently having fever. On antibiotic. Continue the current treatment. Neurological recovery is very slow Recommended tracheostomy spoke to the patient's family 01/27/18 17:44 CCU Objective - Vital Signs / Intake & Output Vital Signs (Last 4 hours): Vital Signs Temp Pulse Resp BP Pulse Ox 01/27/18 17:00 87 23 98 01/27/18 16:07 81 22 135/67 99 01/27/18 16:05 100.5 F H 01/27/18 16:00 82 20 99 01/27/18 15:07 75 24 129/60 98 01/27/18 15:00 77 25 H 99 01/27/18 14:07 69 16 134/57 L 99 01/27/18 14:00 100.3 F H 69 16 100 Intake and Output (Last 8hrs): Intake & Output 01/27/18 01/27/18 01/27/18 06:59 14:59 22:59 Intake Total 1638.0 1665 550 Output Total 630 2 1 Balance 1008.0 1663 549 Weight 217 lb Intake: IV 56 100 Intake, IV Amount 332.0 415 0 Left Antecubital 32.0 15 0 Left Hand 300 400 TPN/PPN 450 350 150 Other 800 800 400 Output: Urine 630 Urethral (Stanley) 630 Stool 2 1 Emesis 0 0 - Physical Exam Head: Positive for: Atraumatic, Normocephalic Pupils: Positive for: Other (corneal reflex) Mouth: Positive for: Other (trach in place) Neck: Positive for: Normal Range of Motion Respiratory/Chest: Positive for: Clear to Auscultation. Negative for: Respiratory Distress Cardiovascular: Positive for: Regular Rate and Rhythm, Normal S1, S2. Negative for: Tachycardic Abdomen: Positive for: Normal Bowel Sounds, Other (obese). Negative for: Tenderness, Distention, Peritoneal Signs Lower Extremity: Positive for: Normal Inspection Neurological: Positive for: Other (patient resists both upper extremities upon examination.) Skin: Positive for: Dry - Medications Active Medications: Active Medications Generic Name Dose Route Start Last Admin Trade Name Freq PRN Reason Stop Dose Admin Acetaminophen 650 mg 01/19/18 00:50 01/27/18 16:05 Tylenol 650mg/20.3ml Solution Ud NG 650 mg Q6 PRN Administration GIVE FOR TEMP. 100*F OR ABOVE Albuterol/Ipratropium 3 ml 01/26/18 20:00 01/27/18 13:54 Duoneb 3 Mg/0.5 Mg (3 Ml) Ud INH 3 ml RQ6 SHINE Administration Aspirin 81 mg 01/17/18 10:00 01/27/18 10:00 Aspirin Chewable PO 81 mg DAILY SHINE Administration Carvedilol 12.5 mg 01/22/18 09:07 01/27/18 10:00 Coreg PO 12.5 mg BID SHINE Administration Heparin Sodium (Porcine) 5,000 units 01/17/18 14:00 01/23/18 15:08 Heparin SC Not Given Q8 SHINE Hydralazine HCl 50 mg 01/16/18 22:00 01/27/18 14:14 Apresoline PO 50 mg Q8 SHINE Administration Levetiracetam 1,000 mg/ Sodium 110 mls @ 440 mls/hr 01/22/18 10:00 01/27/18 10:02 Chloride IVPB 440 mls/hr Q12H SHINE Administration Acyclovir 750 mg/ Sodium 250 mls @ 100 mls/hr 01/26/18 19:00 01/27/18 06:42 Chloride IV 100 mls/hr Q12H SHINE Administration Protocol Linezolid 600 mg in 300 mls @ 200 mls/hr 01/26/18 22:00 01/27/18 10:02 Zyvox 600mg/300ml D5w IVPB 200 mls/hr Q12H SHINE Administration Protocol Ceftazidime 2 gm/ Sodium 100 mls @ 100 mls/hr 01/26/18 20:00 01/27/18 07:45 Chloride IV 100 mls/hr Q12H SHINE Administration Protocol Insulin Glargine 20 unit 01/25/18 22:00 01/27/18 10:03 Lantus SC 20 units Q12 SHINE Administration Insulin Human Regular 0 unit 01/27/18 18:00 Novolin R SC Q6 SHINE Protocol Pantoprazole Sodium 40 mg 01/21/18 12:00 01/27/18 10:03 Protonix Susp PO 40 mg 1000 SHINE Administration Rosuvastatin Calcium 10 mg 01/16/18 22:00 01/26/18 21:07 Crestor PO 10 mg HS SHINE Administration Sennosides 8.6 mg 01/17/18 14:00 01/27/18 14:14 Senokot Tab PO 8.6 mg DAILY SHINE Administration - Patient Studies Lab Studies: Microbiology Studies 01/26/18 18:40 Urine Culture - Final Urine,Catheterized No Growth (<1,000 CFU/ML) 01/26/18 18:26 Group A Strep Throat Culture - Final Throat NORMAL SAPROPHYTIC HALEY. CULTURE NEGATIVE FOR BETA STREP GROUP A. 01/21/18 Unknown Blood Culture - Final Blood-Venous NO GROWTH AFTER 5 DAYS Gram Stain - Final TEST NOT PERFORMED 01/21/18 Unknown Blood Culture - Final Blood-Venous NO GROWTH AFTER 5 DAYS Gram Stain - Final TEST NOT PERFORMED Lab Studies 01/27/18 01/27/18 01/27/18 Range/Units 15:10 14:15 13:21 WBC (4.8-10.8) K/uL RBC (4.40-5.90) Mil/uL Hgb (12.0-18.0) g/dL Hct (35.0-51.0) % MCV (80.0-94.0) fL MCH (27.0-31.0) pg MCHC (33.0-37.0) g/dL RDW (11.5-14.5) % Plt Count (130-400) K/uL MPV (7.2-11.7) fL Neut % (Auto) (50.0-75.0) % Lymph % (Auto) (20.0-40.0) % [place] % (Auto) (0.0-10.0) % Eos % (Auto) (0.0-4.0) % Baso % (Auto) (0.0-2.0) % Neut # (Auto) (1.8-7.0) K/uL Lymph # (Auto) (1.0-4.3) K/uL [place] # (Auto) (0.0-0.8) K/uL Eos # (Auto) (0.0-0.7) K/uL Baso # (Auto) (0.0-0.2) K/uL Puncture Site pCO2 (35-45) mm/Hg pO2 (80-100) mm/Hg HCO3 (21-28) mmol/L ABG pH (7.35-7.45) ABG Total CO2 (22-28) mmol/L ABG O2 Saturation (95-98) % ABG Base Excess (-2.0-3.0) mmol/L ABG Hemoglobin (11.7-17.4) g/dL ABG Carboxyhemoglobin (0.5-1.5) % POC ABG HHb (Measured) (0.0-5.0) % ABG Methemoglobin (0.0-3.0) % Jamey Test A-a O2 Difference mm/Hg Respiratory Index Hgb O2 Saturation (95.0-98.0) % Vent Mode Mechanical Rate FiO2 % Tidal Volume PEEP Sodium (132-148) mmol/L Potassium (3.6-5.2) mmol/L Chloride (98-107) mmol/L Carbon Dioxide (22-30) mmol/L Anion Gap (10-20) BUN (9-20) mg/dL Creatinine (0.8-1.5) mg/dL Est GFR ( Amer) Est GFR (Non-Af Amer) POC Glucose (mg/dL) 261 H 219 H 220 H (65-110) mg/dL Random Glucose (75-110) mg/dL Calcium (8.6-10.4) mg/dl Phosphorus (2.5-4.5) mg/dL Magnesium (1.6-2.3) mg/dL Total Bilirubin (0.2-1.3) mg/dL AST (17-59) U/L ALT (21-72) U/L Alkaline Phosphatase (38-126) U/L Total Protein (6.3-8.3) g/dL Albumin (3.5-5.0) g/dL Globulin (2.2-3.9) gm/dL Albumin/Globulin Ratio (1.0-2.1) Procalcitonin (0.19-0.49) NG/ML Urine Color (YELLOW) Urine Clarity (Clear) Urine pH (5.0-8.0) Ur Specific [place] (1.003-1.030) Urine Protein (NEGATIVE) mg/dL Urine Glucose (UA) (Normal) mg/dL Urine Ketones (NEGATIVE) mg/dL Urine Blood (NEGATIVE) Urine Nitrate (NEGATIVE) Urine Bilirubin (NEGATIVE) Urine Urobilinogen (0.2-1.0) mg/dL Ur Leukocyte Esterase (Negative) Minh/uL Urine WBC (Auto) (0-5) /hpf Urine RBC (Auto) (0-3) /hpf Ur Squamous Epith Cells (0-5) /hpf Urine Bacteria (<OCC) Granular Casts (Auto) (0-1) /lpf Levetiracetam mcg/mL RPR (NONREACTIVE) Hepatitis A IgM Ab (NEGATIVE) Hep Bs Antigen (NEGATIVE) Hep B Core IgM Ab (NEGATIVE) Hepatitis C Antibody (NEGATIVE) HIV 1&2 Antibody Screen (NEGATIVE) Influenza Typ A,B (EIA) (NEGATIVE) Grp A Beta Strep Ag (NEGATIVE) 01/27/18 01/27/18 01/27/18 Range/Units 12:16 11:06 10:17 WBC (4.8-10.8) K/uL RBC (4.40-5.90) Mil/uL Hgb (12.0-18.0) g/dL Hct (35.0-51.0) % MCV (80.0-94.0) fL MCH (27.0-31.0) pg MCHC (33.0-37.0) g/dL RDW (11.5-14.5) % Plt Count (130-400) K/uL MPV (7.2-11.7) fL Neut % (Auto) (50.0-75.0) % Lymph % (Auto) (20.0-40.0) % [place] % (Auto) (0.0-10.0) % Eos % (Auto) (0.0-4.0) % Baso % (Auto) (0.0-2.0) % Neut # (Auto) (1.8-7.0) K/uL Lymph # (Auto) (1.0-4.3) K/uL [place] # (Auto) (0.0-0.8) K/uL Eos # (Auto) (0.0-0.7) K/uL Baso # (Auto) (0.0-0.2) K/uL Puncture Site pCO2 (35-45) mm/Hg pO2 (80-100) mm/Hg HCO3 (21-28) mmol/L ABG pH (7.35-7.45) ABG Total CO2 (22-28) mmol/L ABG O2 Saturation (95-98) % ABG Base Excess (-2.0-3.0) mmol/L ABG Hemoglobin (11.7-17.4) g/dL ABG Carboxyhemoglobin (0.5-1.5) % POC ABG HHb (Measured) (0.0-5.0) % ABG Methemoglobin (0.0-3.0) % Jamey Test A-a O2 Difference mm/Hg Respiratory Index Hgb O2 Saturation (95.0-98.0) % Vent Mode Mechanical Rate FiO2 % Tidal Volume PEEP Sodium (132-148) mmol/L Potassium (3.6-5.2) mmol/L Chloride (98-107) mmol/L Carbon Dioxide (22-30) mmol/L Anion Gap (10-20) BUN (9-20) mg/dL Creatinine (0.8-1.5) mg/dL Est GFR ( Amer) Est GFR (Non-Af Amer) POC Glucose (mg/dL) 207 H 186 H 158 H (65-110) mg/dL Random Glucose (75-110) mg/dL Calcium (8.6-10.4) mg/dl Phosphorus (2.5-4.5) mg/dL Magnesium (1.6-2.3) mg/dL Total Bilirubin (0.2-1.3) mg/dL AST (17-59) U/L ALT (21-72) U/L Alkaline Phosphatase (38-126) U/L Total Protein (6.3-8.3) g/dL Albumin (3.5-5.0) g/dL Globulin (2.2-3.9) gm/dL Albumin/Globulin Ratio (1.0-2.1) Procalcitonin (0.19-0.49) NG/ML Urine Color (YELLOW) Urine Clarity (Clear) Urine pH (5.0-8.0) Ur Specific [place] (1.003-1.030) Urine Protein (NEGATIVE) mg/dL Urine Glucose (UA) (Normal) mg/dL Urine Ketones (NEGATIVE) mg/dL Urine Blood (NEGATIVE) Urine Nitrate (NEGATIVE) Urine Bilirubin (NEGATIVE) Urine Urobilinogen (0.2-1.0) mg/dL Ur Leukocyte Esterase (Negative) Minh/uL Urine WBC (Auto) (0-5) /hpf Urine RBC (Auto) (0-3) /hpf Ur Squamous Epith Cells (0-5) /hpf Urine Bacteria (<OCC) Granular Casts (Auto) (0-1) /lpf Levetiracetam mcg/mL RPR (NONREACTIVE) Hepatitis A IgM Ab (NEGATIVE) Hep Bs Antigen (NEGATIVE) Hep B Core IgM Ab (NEGATIVE) Hepatitis C Antibody (NEGATIVE) HIV 1&2 Antibody Screen (NEGATIVE) Influenza Typ A,B (EIA) (NEGATIVE) Grp A Beta Strep Ag (NEGATIVE) 01/27/18 01/27/18 01/27/18 Range/Units 09:29 07:57 06:32 WBC (4.8-10.8) K/uL RBC (4.40-5.90) Mil/uL Hgb (12.0-18.0) g/dL Hct (35.0-51.0) % MCV (80.0-94.0) fL MCH (27.0-31.0) pg MCHC (33.0-37.0) g/dL RDW (11.5-14.5) % Plt Count (130-400) K/uL MPV (7.2-11.7) fL Neut % (Auto) (50.0-75.0) % Lymph % (Auto) (20.0-40.0) % [place] % (Auto) (0.0-10.0) % Eos % (Auto) (0.0-4.0) % Baso % (Auto) (0.0-2.0) % Neut # (Auto) (1.8-7.0) K/uL Lymph # (Auto) (1.0-4.3) K/uL [place] # (Auto) (0.0-0.8) K/uL Eos # (Auto) (0.0-0.7) K/uL Baso # (Auto) (0.0-0.2) K/uL Puncture Site pCO2 (35-45) mm/Hg pO2 (80-100) mm/Hg HCO3 (21-28) mmol/L ABG pH (7.35-7.45) ABG Total CO2 (22-28) mmol/L ABG O2 Saturation (95-98) % ABG Base Excess (-2.0-3.0) mmol/L ABG Hemoglobin (11.7-17.4) g/dL ABG Carboxyhemoglobin (0.5-1.5) % POC ABG HHb (Measured) (0.0-5.0) % ABG Methemoglobin (0.0-3.0) % Jamey Test A-a O2 Difference mm/Hg Respiratory Index Hgb O2 Saturation (95.0-98.0) % Vent Mode Mechanical Rate FiO2 % Tidal Volume PEEP Sodium (132-148) mmol/L Potassium (3.6-5.2) mmol/L Chloride (98-107) mmol/L Carbon Dioxide (22-30) mmol/L Anion Gap (10-20) BUN (9-20) mg/dL Creatinine (0.8-1.5) mg/dL Est GFR ( Amer) Est GFR (Non-Af Amer) POC Glucose (mg/dL) 160 H 137 H 118 H (65-110) mg/dL Random Glucose (75-110) mg/dL Calcium (8.6-10.4) mg/dl Phosphorus (2.5-4.5) mg/dL Magnesium (1.6-2.3) mg/dL Total Bilirubin (0.2-1.3) mg/dL AST (17-59) U/L ALT (21-72) U/L Alkaline Phosphatase (38-126) U/L Total Protein (6.3-8.3) g/dL Albumin (3.5-5.0) g/dL Globulin (2.2-3.9) gm/dL Albumin/Globulin Ratio (1.0-2.1) Procalcitonin (0.19-0.49) NG/ML Urine Color (YELLOW) Urine Clarity (Clear) Urine pH (5.0-8.0) Ur Specific [place] (1.003-1.030) Urine Protein (NEGATIVE) mg/dL Urine Glucose (UA) (Normal) mg/dL Urine Ketones (NEGATIVE) mg/dL Urine Blood (NEGATIVE) Urine Nitrate (NEGATIVE) Urine Bilirubin (NEGATIVE) Urine Urobilinogen (0.2-1.0) mg/dL Ur Leukocyte Esterase (Negative) Minh/uL Urine WBC (Auto) (0-5) /hpf Urine RBC (Auto) (0-3) /hpf Ur Squamous Epith Cells (0-5) /hpf Urine Bacteria (<OCC) Granular Casts (Auto) (0-1) /lpf Levetiracetam mcg/mL RPR (NONREACTIVE) Hepatitis A IgM Ab (NEGATIVE) Hep Bs Antigen (NEGATIVE) Hep B Core IgM Ab (NEGATIVE) Hepatitis C Antibody (NEGATIVE) HIV 1&2 Antibody Screen (NEGATIVE) Influenza Typ A,B (EIA) (NEGATIVE) Grp A Beta Strep Ag (NEGATIVE) 01/27/18 01/27/18 01/27/18 Range/Units 06:03 06:03 06:03 WBC 8.0 (4.8-10.8) K/uL RBC 3.87 L (4.40-5.90) Mil/uL Hgb 12.2 (12.0-18.0) g/dL Hct 35.4 (35.0-51.0) % MCV 91.4 (80.0-94.0) fL MCH 31.5 H (27.0-31.0) pg MCHC 34.5 (33.0-37.0) g/dL RDW 12.3 (11.5-14.5) % Plt Count 137 (130-400) K/uL MPV 12.6 H (7.2-11.7) fL Neut % (Auto) 81.6 H (50.0-75.0) % Lymph % (Auto) 12.0 L (20.0-40.0) % [place] % (Auto) 4.3 (0.0-10.0) % Eos % (Auto) 1.8 (0.0-4.0) % Baso % (Auto) 0.3 (0.0-2.0) % Neut # (Auto) 6.5 (1.8-7.0) K/uL Lymph # (Auto) 1.0 (1.0-4.3) K/uL [place] # (Auto) 0.3 (0.0-0.8) K/uL Eos # (Auto) 0.1 (0.0-0.7) K/uL Baso # (Auto) 0.0 (0.0-0.2) K/uL Puncture Site pCO2 (35-45) mm/Hg pO2 (80-100) mm/Hg HCO3 (21-28) mmol/L ABG pH (7.35-7.45) ABG Total CO2 (22-28) mmol/L ABG O2 Saturation (95-98) % ABG Base Excess (-2.0-3.0) mmol/L ABG Hemoglobin (11.7-17.4) g/dL ABG Carboxyhemoglobin (0.5-1.5) % POC ABG HHb (Measured) (0.0-5.0) % ABG Methemoglobin (0.0-3.0) % Jamey Test A-a O2 Difference mm/Hg Respiratory Index Hgb O2 Saturation (95.0-98.0) % Vent Mode Mechanical Rate FiO2 % Tidal Volume PEEP Sodium 145 (132-148) mmol/L Potassium 3.4 L (3.6-5.2) mmol/L Chloride 107 (98-107) mmol/L Carbon Dioxide 26 (22-30) mmol/L Anion Gap 16 (10-20) BUN 33 H (9-20) mg/dL Creatinine 1.1 (0.8-1.5) mg/dL Est GFR ( Amer) > 60 Est GFR (Non-Af Amer) > 60 POC Glucose (mg/dL) (65-110) mg/dL Random Glucose 93 (75-110) mg/dL Calcium 8.0 L (8.6-10.4) mg/dl Phosphorus 3.4 (2.5-4.5) mg/dL Magnesium 2.3 (1.6-2.3) mg/dL Total Bilirubin 0.5 (0.2-1.3) mg/dL AST 98 H D (17-59) U/L ALT 98 H (21-72) U/L Alkaline Phosphatase 124 (38-126) U/L Total Protein 6.0 L (6.3-8.3) g/dL Albumin 2.8 L (3.5-5.0) g/dL Globulin 3.2 (2.2-3.9) gm/dL Albumin/Globulin Ratio 0.9 L (1.0-2.1) Procalcitonin (0.19-0.49) NG/ML Urine Color (YELLOW) Urine Clarity (Clear) Urine pH (5.0-8.0) Ur Specific [place] (1.003-1.030) Urine Protein (NEGATIVE) mg/dL Urine Glucose (UA) (Normal) mg/dL Urine Ketones (NEGATIVE) mg/dL Urine Blood (NEGATIVE) Urine Nitrate (NEGATIVE) Urine Bilirubin (NEGATIVE) Urine Urobilinogen (0.2-1.0) mg/dL Ur Leukocyte Esterase (Negative) Minh/uL Urine WBC (Auto) (0-5) /hpf Urine RBC (Auto) (0-3) /hpf Ur Squamous Epith Cells (0-5) /hpf Urine Bacteria (<OCC) Granular Casts (Auto) (0-1) /lpf Levetiracetam mcg/mL RPR (NONREACTIVE) Hepatitis A IgM Ab (NEGATIVE) Hep Bs Antigen (NEGATIVE) Hep B Core IgM Ab (NEGATIVE) Hepatitis C Antibody (NEGATIVE) HIV 1&2 Antibody Screen Negative (NEGATIVE) Influenza Typ A,B (EIA) (NEGATIVE) Grp A Beta Strep Ag (NEGATIVE) 01/27/18 01/27/18 01/27/18 Range/Units 06:03 06:03 05:54 WBC (4.8-10.8) K/uL RBC (4.40-5.90) Mil/uL Hgb (12.0-18.0) g/dL Hct (35.0-51.0) % MCV (80.0-94.0) fL MCH (27.0-31.0) pg MCHC (33.0-37.0) g/dL RDW (11.5-14.5) % Plt Count (130-400) K/uL MPV (7.2-11.7) fL Neut % (Auto) (50.0-75.0) % Lymph % (Auto) (20.0-40.0) % [place] % (Auto) (0.0-10.0) % Eos % (Auto) (0.0-4.0) % Baso % (Auto) (0.0-2.0) % Neut # (Auto) (1.8-7.0) K/uL Lymph # (Auto) (1.0-4.3) K/uL [place] # (Auto) (0.0-0.8) K/uL Eos # (Auto) (0.0-0.7) K/uL Baso # (Auto) (0.0-0.2) K/uL Puncture Site pCO2 (35-45) mm/Hg pO2 (80-100) mm/Hg HCO3 (21-28) mmol/L ABG pH (7.35-7.45) ABG Total CO2 (22-28) mmol/L ABG O2 Saturation (95-98) % ABG Base Excess (-2.0-3.0) mmol/L ABG Hemoglobin (11.7-17.4) g/dL ABG Carboxyhemoglobin (0.5-1.5) % POC ABG HHb (Measured) (0.0-5.0) % ABG Methemoglobin (0.0-3.0) % Jamey Test A-a O2 Difference mm/Hg Respiratory Index Hgb O2 Saturation (95.0-98.0) % Vent Mode Mechanical Rate FiO2 % Tidal Volume PEEP Sodium (132-148) mmol/L Potassium (3.6-5.2) mmol/L Chloride (98-107) mmol/L Carbon Dioxide (22-30) mmol/L Anion Gap (10-20) BUN (9-20) mg/dL Creatinine (0.8-1.5) mg/dL Est GFR ( Amer) Est GFR (Non-Af Amer) POC Glucose (mg/dL) 111 H (65-110) mg/dL Random Glucose (75-110) mg/dL Calcium (8.6-10.4) mg/dl Phosphorus (2.5-4.5) mg/dL Magnesium (1.6-2.3) mg/dL Total Bilirubin (0.2-1.3) mg/dL AST (17-59) U/L ALT (21-72) U/L Alkaline Phosphatase (38-126) U/L Total Protein (6.3-8.3) g/dL Albumin (3.5-5.0) g/dL Globulin (2.2-3.9) gm/dL Albumin/Globulin Ratio (1.0-2.1) Procalcitonin (0.19-0.49) NG/ML Urine Color (YELLOW) Urine Clarity (Clear) Urine pH (5.0-8.0) Ur Specific [place] (1.003-1.030) Urine Protein (NEGATIVE) mg/dL Urine Glucose (UA) (Normal) mg/dL Urine Ketones (NEGATIVE) mg/dL Urine Blood (NEGATIVE) Urine Nitrate (NEGATIVE) Urine Bilirubin (NEGATIVE) Urine Urobilinogen (0.2-1.0) mg/dL Ur Leukocyte Esterase (Negative) Minh/uL Urine WBC (Auto) (0-5) /hpf Urine RBC (Auto) (0-3) /hpf Ur Squamous Epith Cells (0-5) /hpf Urine Bacteria (<OCC) Granular Casts (Auto) (0-1) /lpf Levetiracetam mcg/mL RPR (NONREACTIVE) Hepatitis A IgM Ab Negative (NEGATIVE) Hep Bs Antigen Negative (NEGATIVE) Hep B Core IgM Ab Negative (NEGATIVE) Hepatitis C Antibody Negative (NEGATIVE) HIV 1&2 Antibody Screen (NEGATIVE) Influenza Typ A,B (EIA) Negative for flu a/b (NEGATIVE) Grp A Beta Strep Ag (NEGATIVE) 01/27/18 01/27/18 01/27/18 Range/Units 05:20 05:02 04:00 WBC (4.8-10.8) K/uL RBC (4.40-5.90) Mil/uL Hgb (12.0-18.0) g/dL Hct (35.0-51.0) % MCV (80.0-94.0) fL MCH (27.0-31.0) pg MCHC (33.0-37.0) g/dL RDW (11.5-14.5) % Plt Count (130-400) K/uL MPV (7.2-11.7) fL Neut % (Auto) (50.0-75.0) % Lymph % (Auto) (20.0-40.0) % [place] % (Auto) (0.0-10.0) % Eos % (Auto) (0.0-4.0) % Baso % (Auto) (0.0-2.0) % Neut # (Auto) (1.8-7.0) K/uL Lymph # (Auto) (1.0-4.3) K/uL [place] # (Auto) (0.0-0.8) K/uL Eos # (Auto) (0.0-0.7) K/uL Baso # (Auto) (0.0-0.2) K/uL Puncture Site Rb pCO2 36 (35-45) mm/Hg pO2 80 (80-100) mm/Hg HCO3 25.8 (21-28) mmol/L ABG pH 7.45 (7.35-7.45) ABG Total CO2 26.1 (22-28) mmol/L ABG O2 Saturation 98.0 (95-98) % ABG Base Excess 1.2 (-2.0-3.0) mmol/L ABG Hemoglobin 12.0 (11.7-17.4) g/dL ABG Carboxyhemoglobin 1.8 H (0.5-1.5) % POC ABG HHb (Measured) 1.9 (0.0-5.0) % ABG Methemoglobin 0.8 (0.0-3.0) % Jamey Test Na A-a O2 Difference 160.0 mm/Hg Respiratory Index 2.0 Hgb O2 Saturation 95.4 (95.0-98.0) % Vent Mode Prvc Mechanical Rate 16 FiO2 40.0 % Tidal Volume 500 PEEP 5 Sodium (132-148) mmol/L Potassium (3.6-5.2) mmol/L Chloride (98-107) mmol/L Carbon Dioxide (22-30) mmol/L Anion Gap (10-20) BUN (9-20) mg/dL Creatinine (0.8-1.5) mg/dL Est GFR ( Amer) Est GFR (Non-Af Amer) POC Glucose (mg/dL) 81 101 (65-110) mg/dL Random Glucose (75-110) mg/dL Calcium (8.6-10.4) mg/dl Phosphorus (2.5-4.5) mg/dL Magnesium (1.6-2.3) mg/dL Total Bilirubin (0.2-1.3) mg/dL AST (17-59) U/L ALT (21-72) U/L Alkaline Phosphatase (38-126) U/L Total Protein (6.3-8.3) g/dL Albumin (3.5-5.0) g/dL Globulin (2.2-3.9) gm/dL Albumin/Globulin Ratio (1.0-2.1) Procalcitonin (0.19-0.49) NG/ML Urine Color (YELLOW) Urine Clarity (Clear) Urine pH (5.0-8.0) Ur Specific [place] (1.003-1.030) Urine Protein (NEGATIVE) mg/dL Urine Glucose (UA) (Normal) mg/dL Urine Ketones (NEGATIVE) mg/dL Urine Blood (NEGATIVE) Urine Nitrate (NEGATIVE) Urine Bilirubin (NEGATIVE) Urine Urobilinogen (0.2-1.0) mg/dL Ur Leukocyte Esterase (Negative) Minh/uL Urine WBC (Auto) (0-5) /hpf Urine RBC (Auto) (0-3) /hpf Ur Squamous Epith Cells (0-5) /hpf Urine Bacteria (<OCC) Granular Casts (Auto) (0-1) /lpf Levetiracetam mcg/mL RPR (NONREACTIVE) Hepatitis A IgM Ab (NEGATIVE) Hep Bs Antigen (NEGATIVE) Hep B Core IgM Ab (NEGATIVE) Hepatitis C Antibody (NEGATIVE) HIV 1&2 Antibody Screen (NEGATIVE) Influenza Typ A,B (EIA) (NEGATIVE) Grp A Beta Strep Ag (NEGATIVE) 01/27/18 01/27/18 01/27/18 Range/Units 03:04 02:10 00:48 WBC (4.8-10.8) K/uL RBC (4.40-5.90) Mil/uL Hgb (12.0-18.0) g/dL Hct (35.0-51.0) % MCV (80.0-94.0) fL MCH (27.0-31.0) pg MCHC (33.0-37.0) g/dL RDW (11.5-14.5) % Plt Count (130-400) K/uL MPV (7.2-11.7) fL Neut % (Auto) (50.0-75.0) % Lymph % (Auto) (20.0-40.0) % [place] % (Auto) (0.0-10.0) % Eos % (Auto) (0.0-4.0) % Baso % (Auto) (0.0-2.0) % Neut # (Auto) (1.8-7.0) K/uL Lymph # (Auto) (1.0-4.3) K/uL [place] # (Auto) (0.0-0.8) K/uL Eos # (Auto) (0.0-0.7) K/uL Baso # (Auto) (0.0-0.2) K/uL Puncture Site pCO2 (35-45) mm/Hg pO2 (80-100) mm/Hg HCO3 (21-28) mmol/L ABG pH (7.35-7.45) ABG Total CO2 (22-28) mmol/L ABG O2 Saturation (95-98) % ABG Base Excess (-2.0-3.0) mmol/L ABG Hemoglobin (11.7-17.4) g/dL ABG Carboxyhemoglobin (0.5-1.5) % POC ABG HHb (Measured) (0.0-5.0) % ABG Methemoglobin (0.0-3.0) % Jamey Test A-a O2 Difference mm/Hg Respiratory Index Hgb O2 Saturation (95.0-98.0) % Vent Mode Mechanical Rate FiO2 % Tidal Volume PEEP Sodium (132-148) mmol/L Potassium (3.6-5.2) mmol/L Chloride (98-107) mmol/L Carbon Dioxide (22-30) mmol/L Anion Gap (10-20) BUN (9-20) mg/dL Creatinine (0.8-1.5) mg/dL Est GFR ( Amer) Est GFR (Non-Af Amer) POC Glucose (mg/dL) 127 H 135 H 166 H (65-110) mg/dL Random Glucose (75-110) mg/dL Calcium (8.6-10.4) mg/dl Phosphorus (2.5-4.5) mg/dL Magnesium (1.6-2.3) mg/dL Total Bilirubin (0.2-1.3) mg/dL AST (17-59) U/L ALT (21-72) U/L Alkaline Phosphatase (38-126) U/L Total Protein (6.3-8.3) g/dL Albumin (3.5-5.0) g/dL Globulin (2.2-3.9) gm/dL Albumin/Globulin Ratio (1.0-2.1) Procalcitonin (0.19-0.49) NG/ML Urine Color (YELLOW) Urine Clarity (Clear) Urine pH (5.0-8.0) Ur Specific [place] (1.003-1.030) Urine Protein (NEGATIVE) mg/dL Urine Glucose (UA) (Normal) mg/dL Urine Ketones (NEGATIVE) mg/dL Urine Blood (NEGATIVE) Urine Nitrate (NEGATIVE) Urine Bilirubin (NEGATIVE) Urine Urobilinogen (0.2-1.0) mg/dL Ur Leukocyte Esterase (Negative) Minh/uL Urine WBC (Auto) (0-5) /hpf Urine RBC (Auto) (0-3) /hpf Ur Squamous Epith Cells (0-5) /hpf Urine Bacteria (<OCC) Granular Casts (Auto) (0-1) /lpf Levetiracetam mcg/mL RPR (NONREACTIVE) Hepatitis A IgM Ab (NEGATIVE) Hep Bs Antigen (NEGATIVE) Hep B Core IgM Ab (NEGATIVE) Hepatitis C Antibody (NEGATIVE) HIV 1&2 Antibody Screen (NEGATIVE) Influenza Typ A,B (EIA) (NEGATIVE) Grp A Beta Strep Ag (NEGATIVE) 01/26/18 01/26/18 01/26/18 Range/Units 23:49 23:01 21:49 WBC (4.8-10.8) K/uL RBC (4.40-5.90) Mil/uL Hgb (12.0-18.0) g/dL Hct (35.0-51.0) % MCV (80.0-94.0) fL MCH (27.0-31.0) pg MCHC (33.0-37.0) g/dL RDW (11.5-14.5) % Plt Count (130-400) K/uL MPV (7.2-11.7) fL Neut % (Auto) (50.0-75.0) % Lymph % (Auto) (20.0-40.0) % [place] % (Auto) (0.0-10.0) % Eos % (Auto) (0.0-4.0) % Baso % (Auto) (0.0-2.0) % Neut # (Auto) (1.8-7.0) K/uL Lymph # (Auto) (1.0-4.3) K/uL [place] # (Auto) (0.0-0.8) K/uL Eos # (Auto) (0.0-0.7) K/uL Baso # (Auto) (0.0-0.2) K/uL Puncture Site pCO2 (35-45) mm/Hg pO2 (80-100) mm/Hg HCO3 (21-28) mmol/L ABG pH (7.35-7.45) ABG Total CO2 (22-28) mmol/L ABG O2 Saturation (95-98) % ABG Base Excess (-2.0-3.0) mmol/L ABG Hemoglobin (11.7-17.4) g/dL ABG Carboxyhemoglobin (0.5-1.5) % POC ABG HHb (Measured) (0.0-5.0) % ABG Methemoglobin (0.0-3.0) % Jamey Test A-a O2 Difference mm/Hg Respiratory Index Hgb O2 Saturation (95.0-98.0) % Vent Mode Mechanical Rate FiO2 % Tidal Volume PEEP Sodium (132-148) mmol/L Potassium (3.6-5.2) mmol/L Chloride (98-107) mmol/L Carbon Dioxide (22-30) mmol/L Anion Gap (10-20) BUN (9-20) mg/dL Creatinine (0.8-1.5) mg/dL Est GFR ( Amer) Est GFR (Non-Af Amer) POC Glucose (mg/dL) 115 H 141 H 125 H (65-110) mg/dL Random Glucose (75-110) mg/dL Calcium (8.6-10.4) mg/dl Phosphorus (2.5-4.5) mg/dL Magnesium (1.6-2.3) mg/dL Total Bilirubin (0.2-1.3) mg/dL AST (17-59) U/L ALT (21-72) U/L Alkaline Phosphatase (38-126) U/L Total Protein (6.3-8.3) g/dL Albumin (3.5-5.0) g/dL Globulin (2.2-3.9) gm/dL Albumin/Globulin Ratio (1.0-2.1) Procalcitonin (0.19-0.49) NG/ML Urine Color (YELLOW) Urine Clarity (Clear) Urine pH (5.0-8.0) Ur Specific [place] (1.003-1.030) Urine Protein (NEGATIVE) mg/dL Urine Glucose (UA) (Normal) mg/dL Urine Ketones (NEGATIVE) mg/dL Urine Blood (NEGATIVE) Urine Nitrate (NEGATIVE) Urine Bilirubin (NEGATIVE) Urine Urobilinogen (0.2-1.0) mg/dL Ur Leukocyte Esterase (Negative) Minh/uL Urine WBC (Auto) (0-5) /hpf Urine RBC (Auto) (0-3) /hpf Ur Squamous Epith Cells (0-5) /hpf Urine Bacteria (<OCC) Granular Casts (Auto) (0-1) /lpf Levetiracetam mcg/mL RPR (NONREACTIVE) Hepatitis A IgM Ab (NEGATIVE) Hep Bs Antigen (NEGATIVE) Hep B Core IgM Ab (NEGATIVE) Hepatitis C Antibody (NEGATIVE) HIV 1&2 Antibody Screen (NEGATIVE) Influenza Typ A,B (EIA) (NEGATIVE) Grp A Beta Strep Ag (NEGATIVE) 01/26/18 01/26/18 01/26/18 Range/Units 20:57 20:10 19:07 WBC (4.8-10.8) K/uL RBC (4.40-5.90) Mil/uL Hgb (12.0-18.0) g/dL Hct (35.0-51.0) % MCV (80.0-94.0) fL MCH (27.0-31.0) pg MCHC (33.0-37.0) g/dL RDW (11.5-14.5) % Plt Count (130-400) K/uL MPV (7.2-11.7) fL Neut % (Auto) (50.0-75.0) % Lymph % (Auto) (20.0-40.0) % [place] % (Auto) (0.0-10.0) % Eos % (Auto) (0.0-4.0) % Baso % (Auto) (0.0-2.0) % Neut # (Auto) (1.8-7.0) K/uL Lymph # (Auto) (1.0-4.3) K/uL [place] # (Auto) (0.0-0.8) K/uL Eos # (Auto) (0.0-0.7) K/uL Baso # (Auto) (0.0-0.2) K/uL Puncture Site pCO2 (35-45) mm/Hg pO2 (80-100) mm/Hg HCO3 (21-28) mmol/L ABG pH (7.35-7.45) ABG Total CO2 (22-28) mmol/L ABG O2 Saturation (95-98) % ABG Base Excess (-2.0-3.0) mmol/L ABG Hemoglobin (11.7-17.4) g/dL ABG Carboxyhemoglobin (0.5-1.5) % POC ABG HHb (Measured) (0.0-5.0) % ABG Methemoglobin (0.0-3.0) % Jamey Test A-a O2 Difference mm/Hg Respiratory Index Hgb O2 Saturation (95.0-98.0) % Vent Mode Mechanical Rate FiO2 % Tidal Volume PEEP Sodium (132-148) mmol/L Potassium (3.6-5.2) mmol/L Chloride (98-107) mmol/L Carbon Dioxide (22-30) mmol/L Anion Gap (10-20) BUN (9-20) mg/dL Creatinine (0.8-1.5) mg/dL Est GFR ( Amer) Est GFR (Non-Af Amer) POC Glucose (mg/dL) 129 H 106 102 (65-110) mg/dL Random Glucose (75-110) mg/dL Calcium (8.6-10.4) mg/dl Phosphorus (2.5-4.5) mg/dL Magnesium (1.6-2.3) mg/dL Total Bilirubin (0.2-1.3) mg/dL AST (17-59) U/L ALT (21-72) U/L Alkaline Phosphatase (38-126) U/L Total Protein (6.3-8.3) g/dL Albumin (3.5-5.0) g/dL Globulin (2.2-3.9) gm/dL Albumin/Globulin Ratio (1.0-2.1) Procalcitonin (0.19-0.49) NG/ML Urine Color (YELLOW) Urine Clarity (Clear) Urine pH (5.0-8.0) Ur Specific [place] (1.003-1.030) Urine Protein (NEGATIVE) mg/dL Urine Glucose (UA) (Normal) mg/dL Urine Ketones (NEGATIVE) mg/dL Urine Blood (NEGATIVE) Urine Nitrate (NEGATIVE) Urine Bilirubin (NEGATIVE) Urine Urobilinogen (0.2-1.0) mg/dL Ur Leukocyte Esterase (Negative) Minh/uL Urine WBC (Auto) (0-5) /hpf Urine RBC (Auto) (0-3) /hpf Ur Squamous Epith Cells (0-5) /hpf Urine Bacteria (<OCC) Granular Casts (Auto) (0-1) /lpf Levetiracetam mcg/mL RPR (NONREACTIVE) Hepatitis A IgM Ab (NEGATIVE) Hep Bs Antigen (NEGATIVE) Hep B Core IgM Ab (NEGATIVE) Hepatitis C Antibody (NEGATIVE) HIV 1&2 Antibody Screen (NEGATIVE) Influenza Typ A,B (EIA) (NEGATIVE) Grp A Beta Strep Ag (NEGATIVE) 01/26/18 01/26/18 01/26/18 Range/Units 18:39 18:26 18:26 WBC (4.8-10.8) K/uL RBC (4.40-5.90) Mil/uL Hgb (12.0-18.0) g/dL Hct (35.0-51.0) % MCV (80.0-94.0) fL MCH (27.0-31.0) pg MCHC (33.0-37.0) g/dL RDW (11.5-14.5) % Plt Count (130-400) K/uL MPV (7.2-11.7) fL Neut % (Auto) (50.0-75.0) % Lymph % (Auto) (20.0-40.0) % [place] % (Auto) (0.0-10.0) % Eos % (Auto) (0.0-4.0) % Baso % (Auto) (0.0-2.0) % Neut # (Auto) (1.8-7.0) K/uL Lymph # (Auto) (1.0-4.3) K/uL [place] # (Auto) (0.0-0.8) K/uL Eos # (Auto) (0.0-0.7) K/uL Baso # (Auto) (0.0-0.2) K/uL Puncture Site pCO2 (35-45) mm/Hg pO2 (80-100) mm/Hg HCO3 (21-28) mmol/L ABG pH (7.35-7.45) ABG Total CO2 (22-28) mmol/L ABG O2 Saturation (95-98) % ABG Base Excess (-2.0-3.0) mmol/L ABG Hemoglobin (11.7-17.4) g/dL ABG Carboxyhemoglobin (0.5-1.5) % POC ABG HHb (Measured) (0.0-5.0) % ABG Methemoglobin (0.0-3.0) % Jamey Test A-a O2 Difference mm/Hg Respiratory Index Hgb O2 Saturation (95.0-98.0) % Vent Mode Mechanical Rate FiO2 % Tidal Volume PEEP Sodium (132-148) mmol/L Potassium (3.6-5.2) mmol/L Chloride (98-107) mmol/L Carbon Dioxide (22-30) mmol/L Anion Gap (10-20) BUN (9-20) mg/dL Creatinine (0.8-1.5) mg/dL Est GFR ( Amer) Est GFR (Non-Af Amer) POC Glucose (mg/dL) 122 H (65-110) mg/dL Random Glucose (75-110) mg/dL Calcium (8.6-10.4) mg/dl Phosphorus (2.5-4.5) mg/dL Magnesium (1.6-2.3) mg/dL Total Bilirubin (0.2-1.3) mg/dL AST (17-59) U/L ALT (21-72) U/L Alkaline Phosphatase (38-126) U/L Total Protein (6.3-8.3) g/dL Albumin (3.5-5.0) g/dL Globulin (2.2-3.9) gm/dL Albumin/Globulin Ratio (1.0-2.1) Procalcitonin (0.19-0.49) NG/ML Urine Color Yellow (YELLOW) Urine Clarity Hazy (Clear) Urine pH 5.0 (5.0-8.0) Ur Specific [place] 1.025 (1.003-1.030) Urine Protein 2+ H (NEGATIVE) mg/dL Urine Glucose (UA) 3+ H (Normal) mg/dL Urine Ketones Negative (NEGATIVE) mg/dL Urine Blood 2+ H (NEGATIVE) Urine Nitrate Negative (NEGATIVE) Urine Bilirubin Negative (NEGATIVE) Urine Urobilinogen 4.0 (0.2-1.0) mg/dL Ur Leukocyte Esterase 2+ H (Negative) Minh/uL Urine WBC (Auto) 43 H (0-5) /hpf Urine RBC (Auto) 104 H (0-3) /hpf Ur Squamous Epith Cells 1 (0-5) /hpf Urine Bacteria Rare (<OCC) Granular Casts (Auto) 3-6 (0-1) /lpf Levetiracetam mcg/mL RPR Nonreactive (NONREACTIVE) Hepatitis A IgM Ab (NEGATIVE) Hep Bs Antigen (NEGATIVE) Hep B Core IgM Ab (NEGATIVE) Hepatitis C Antibody (NEGATIVE) HIV 1&2 Antibody Screen (NEGATIVE) Influenza Typ A,B (EIA) Negative for flu a/b (NEGATIVE) Grp A Beta Strep Ag Negative (NEGATIVE) 01/26/18 01/23/18 Range/Units 18:26 11:50 WBC (4.8-10.8) K/uL RBC (4.40-5.90) Mil/uL Hgb (12.0-18.0) g/dL Hct (35.0-51.0) % MCV (80.0-94.0) fL MCH (27.0-31.0) pg MCHC (33.0-37.0) g/dL RDW (11.5-14.5) % Plt Count (130-400) K/uL MPV (7.2-11.7) fL Neut % (Auto) (50.0-75.0) % Lymph % (Auto) (20.0-40.0) % [place] % (Auto) (0.0-10.0) % Eos % (Auto) (0.0-4.0) % Baso % (Auto) (0.0-2.0) % Neut # (Auto) (1.8-7.0) K/uL Lymph # (Auto) (1.0-4.3) K/uL [place] # (Auto) (0.0-0.8) K/uL Eos # (Auto) (0.0-0.7) K/uL Baso # (Auto) (0.0-0.2) K/uL Puncture Site pCO2 (35-45) mm/Hg pO2 (80-100) mm/Hg HCO3 (21-28) mmol/L ABG pH (7.35-7.45) ABG Total CO2 (22-28) mmol/L ABG O2 Saturation (95-98) % ABG Base Excess (-2.0-3.0) mmol/L ABG Hemoglobin (11.7-17.4) g/dL ABG Carboxyhemoglobin (0.5-1.5) % POC ABG HHb (Measured) (0.0-5.0) % ABG Methemoglobin (0.0-3.0) % Jamey Test A-a O2 Difference mm/Hg Respiratory Index Hgb O2 Saturation (95.0-98.0) % Vent Mode Mechanical Rate FiO2 % Tidal Volume PEEP Sodium (132-148) mmol/L Potassium (3.6-5.2) mmol/L Chloride (98-107) mmol/L Carbon Dioxide (22-30) mmol/L Anion Gap (10-20) BUN (9-20) mg/dL Creatinine (0.8-1.5) mg/dL Est GFR ( Amer) Est GFR (Non-Af Amer) POC Glucose (mg/dL) (65-110) mg/dL Random Glucose (75-110) mg/dL Calcium (8.6-10.4) mg/dl Phosphorus (2.5-4.5) mg/dL Magnesium (1.6-2.3) mg/dL Total Bilirubin (0.2-1.3) mg/dL AST (17-59) U/L ALT (21-72) U/L Alkaline Phosphatase (38-126) U/L Total Protein (6.3-8.3) g/dL Albumin (3.5-5.0) g/dL Globulin (2.2-3.9) gm/dL Albumin/Globulin Ratio (1.0-2.1) Procalcitonin 0.61 H (0.19-0.49) NG/ML Urine Color (YELLOW) Urine Clarity (Clear) Urine pH (5.0-8.0) Ur Specific [place] (1.003-1.030) Urine Protein (NEGATIVE) mg/dL Urine Glucose (UA) (Normal) mg/dL Urine Ketones (NEGATIVE) mg/dL Urine Blood (NEGATIVE) Urine Nitrate (NEGATIVE) Urine Bilirubin (NEGATIVE) Urine Urobilinogen (0.2-1.0) mg/dL Ur Leukocyte Esterase (Negative) Minh/uL Urine WBC (Auto) (0-5) /hpf Urine RBC (Auto) (0-3) /hpf Ur Squamous Epith Cells (0-5) /hpf Urine Bacteria (<OCC) Granular Casts (Auto) (0-1) /lpf Levetiracetam 44.4 mcg/mL RPR (NONREACTIVE) Hepatitis A IgM Ab (NEGATIVE) Hep Bs Antigen (NEGATIVE) Hep B Core IgM Ab (NEGATIVE) Hepatitis C Antibody (NEGATIVE) HIV 1&2 Antibody Screen (NEGATIVE) Influenza Typ A,B (EIA) (NEGATIVE) Grp A Beta Strep Ag (NEGATIVE) Laboratory Results - last 24 hr 01/23/18 01/26/18 01/26/18 11:50 18:26 18:26 WBC RBC Hgb Hct MCV MCH MCHC RDW Plt Count MPV Neut % (Auto) Lymph % (Auto) [place] % (Auto) Eos % (Auto) Baso % (Auto) Neut # (Auto) Lymph # (Auto) [place] # (Auto) Eos # (Auto) Baso # (Auto) Puncture Site pCO2 pO2 HCO3 ABG pH ABG Total CO2 ABG O2 Saturation ABG Base Excess ABG Hemoglobin ABG Carboxyhemoglobin POC ABG HHb (Measured) ABG Methemoglobin Jamey Test A-a O2 Difference Respiratory Index Hgb O2 Saturation Vent Mode Mechanical Rate FiO2 Tidal Volume PEEP Sodium Potassium Chloride Carbon Dioxide Anion Gap BUN Creatinine Est GFR ( Amer) Est GFR (Non-Af Amer) POC Glucose (mg/dL) Random Glucose Calcium Phosphorus Magnesium Total Bilirubin AST ALT Alkaline Phosphatase Total Protein Albumin Globulin Albumin/Globulin Ratio Procalcitonin 0.61 H Urine Color Urine Clarity Urine pH Ur Specific [place] Urine Protein Urine Glucose (UA) Urine Ketones Urine Blood Urine Nitrate Urine Bilirubin Urine Urobilinogen Ur Leukocyte Esterase Urine WBC (Auto) Urine RBC (Auto) Ur Squamous Epith Cells Urine Bacteria Granular Casts (Auto) Levetiracetam 44.4 RPR Nonreactive Hepatitis A IgM Ab Hep Bs Antigen Hep B Core IgM Ab Hepatitis C Antibody HIV 1&2 Antibody Screen Influenza Typ A,B (EIA) Negative for flu a/b Grp A Beta Strep Ag Negative 01/26/18 01/26/18 01/26/18 18:26 18:39 19:07 WBC RBC Hgb Hct MCV MCH MCHC RDW Plt Count MPV Neut % (Auto) Lymph % (Auto) [place] % (Auto) Eos % (Auto) Baso % (Auto) Neut # (Auto) Lymph # (Auto) [place] # (Auto) Eos # (Auto) Baso # (Auto) Puncture Site pCO2 pO2 HCO3 ABG pH ABG Total CO2 ABG O2 Saturation ABG Base Excess ABG Hemoglobin ABG Carboxyhemoglobin POC ABG HHb (Measured) ABG Methemoglobin Jamey Test A-a O2 Difference Respiratory Index Hgb O2 Saturation Vent Mode Mechanical Rate FiO2 Tidal Volume PEEP Sodium Potassium Chloride Carbon Dioxide Anion Gap BUN Creatinine Est GFR ( Amer) Est GFR (Non-Af Amer) POC Glucose (mg/dL) 122 H 102 Random Glucose Calcium Phosphorus Magnesium Total Bilirubin AST ALT Alkaline Phosphatase Total Protein Albumin Globulin Albumin/Globulin Ratio Procalcitonin Urine Color Yellow Urine Clarity Hazy Urine pH 5.0 Ur Specific [place] 1.025 Urine Protein 2+ H Urine Glucose (UA) 3+ H Urine Ketones Negative Urine Blood 2+ H Urine Nitrate Negative Urine Bilirubin Negative Urine Urobilinogen 4.0 Ur Leukocyte Esterase 2+ H Urine WBC (Auto) 43 H Urine RBC (Auto) 104 H Ur Squamous Epith Cells 1 Urine Bacteria Rare Granular Casts (Auto) 3-6 Levetiracetam RPR Hepatitis A IgM Ab Hep Bs Antigen Hep B Core IgM Ab Hepatitis C Antibody HIV 1&2 Antibody Screen Influenza Typ A,B (EIA) Grp A Beta Strep Ag 01/26/18 01/26/18 01/26/18 20:10 20:57 21:49 WBC RBC Hgb Hct MCV MCH MCHC RDW Plt Count MPV Neut % (Auto) Lymph % (Auto) [place] % (Auto) Eos % (Auto) Baso % (Auto) Neut # (Auto) Lymph # (Auto) [place] # (Auto) Eos # (Auto) Baso # (Auto) Puncture Site pCO2 pO2 HCO3 ABG pH ABG Total CO2 ABG O2 Saturation ABG Base Excess ABG Hemoglobin ABG Carboxyhemoglobin POC ABG HHb (Measured) ABG Methemoglobin Jamey Test A-a O2 Difference Respiratory Index Hgb O2 Saturation Vent Mode Mechanical Rate FiO2 Tidal Volume PEEP Sodium Potassium Chloride Carbon Dioxide Anion Gap BUN Creatinine Est GFR ( Amer) Est GFR (Non-Af Amer) POC Glucose (mg/dL) 106 129 H 125 H Random Glucose Calcium Phosphorus Magnesium Total Bilirubin AST ALT Alkaline Phosphatase Total Protein Albumin Globulin Albumin/Globulin Ratio Procalcitonin Urine Color Urine Clarity Urine pH Ur Specific [place] Urine Protein Urine Glucose (UA) Urine Ketones Urine Blood Urine Nitrate Urine Bilirubin Urine Urobilinogen Ur Leukocyte Esterase Urine WBC (Auto) Urine RBC (Auto) Ur Squamous Epith Cells Urine Bacteria Granular Casts (Auto) Levetiracetam RPR Hepatitis A IgM Ab Hep Bs Antigen Hep B Core IgM Ab Hepatitis C Antibody HIV 1&2 Antibody Screen Influenza Typ A,B (EIA) Grp A Beta Strep Ag 01/26/18 01/26/18 01/27/18 23:01 23:49 00:48 WBC RBC Hgb Hct MCV MCH MCHC RDW Plt Count MPV Neut % (Auto) Lymph % (Auto) [place] % (Auto) Eos % (Auto) Baso % (Auto) Neut # (Auto) Lymph # (Auto) [place] # (Auto) Eos # (Auto) Baso # (Auto) Puncture Site pCO2 pO2 HCO3 ABG pH ABG Total CO2 ABG O2 Saturation ABG Base Excess ABG Hemoglobin ABG Carboxyhemoglobin POC ABG HHb (Measured) ABG Methemoglobin Jamey Test A-a O2 Difference Respiratory Index Hgb O2 Saturation Vent Mode Mechanical Rate FiO2 Tidal Volume PEEP Sodium Potassium Chloride Carbon Dioxide Anion Gap BUN Creatinine Est GFR ( Amer) Est GFR (Non-Af Amer) POC Glucose (mg/dL) 141 H 115 H 166 H Random Glucose Calcium Phosphorus Magnesium Total Bilirubin AST ALT Alkaline Phosphatase Total Protein Albumin Globulin Albumin/Globulin Ratio Procalcitonin Urine Color Urine Clarity Urine pH Ur Specific [place] Urine Protein Urine Glucose (UA) Urine Ketones Urine Blood Urine Nitrate Urine Bilirubin Urine Urobilinogen Ur Leukocyte Esterase Urine WBC (Auto) Urine RBC (Auto) Ur Squamous Epith Cells Urine Bacteria Granular Casts (Auto) Levetiracetam RPR Hepatitis A IgM Ab Hep Bs Antigen Hep B Core IgM Ab Hepatitis C Antibody HIV 1&2 Antibody Screen Influenza Typ A,B (EIA) Grp A Beta Strep Ag 01/27/18 01/27/18 01/27/18 02:10 03:04 04:00 WBC RBC Hgb Hct MCV MCH MCHC RDW Plt Count MPV Neut % (Auto) Lymph % (Auto) [place] % (Auto) Eos % (Auto) Baso % (Auto) Neut # (Auto) Lymph # (Auto) [place] # (Auto) Eos # (Auto) Baso # (Auto) Puncture Site pCO2 pO2 HCO3 ABG pH ABG Total CO2 ABG O2 Saturation ABG Base Excess ABG Hemoglobin ABG Carboxyhemoglobin POC ABG HHb (Measured) ABG Methemoglobin Jamey Test A-a O2 Difference Respiratory Index Hgb O2 Saturation Vent Mode Mechanical Rate FiO2 Tidal Volume PEEP Sodium Potassium Chloride Carbon Dioxide Anion Gap BUN Creatinine Est GFR ( Amer) Est GFR (Non-Af Amer) POC Glucose (mg/dL) 135 H 127 H 101 Random Glucose Calcium Phosphorus Magnesium Total Bilirubin AST ALT Alkaline Phosphatase Total Protein Albumin Globulin Albumin/Globulin Ratio Procalcitonin Urine Color Urine Clarity Urine pH Ur Specific [place] Urine Protein Urine Glucose (UA) Urine Ketones Urine Blood Urine Nitrate Urine Bilirubin Urine Urobilinogen Ur Leukocyte Esterase Urine WBC (Auto) Urine RBC (Auto) Ur Squamous Epith Cells Urine Bacteria Granular Casts (Auto) Levetiracetam RPR Hepatitis A IgM Ab Hep Bs Antigen Hep B Core IgM Ab Hepatitis C Antibody HIV 1&2 Antibody Screen Influenza Typ A,B (EIA) Grp A Beta Strep Ag 01/27/18 01/27/18 01/27/18 05:02 05:20 05:54 WBC RBC Hgb Hct MCV MCH MCHC RDW Plt Count MPV Neut % (Auto) Lymph % (Auto) [place] % (Auto) Eos % (Auto) Baso % (Auto) Neut # (Auto) Lymph # (Auto) [place] # (Auto) Eos # (Auto) Baso # (Auto) Puncture Site Rb pCO2 36 pO2 80 HCO3 25.8 ABG pH 7.45 ABG Total CO2 26.1 ABG O2 Saturation 98.0 ABG Base Excess 1.2 ABG Hemoglobin 12.0 ABG Carboxyhemoglobin 1.8 H POC ABG HHb (Measured) 1.9 ABG Methemoglobin 0.8 Jamey Test Na A-a O2 Difference 160.0 Respiratory Index 2.0 Hgb O2 Saturation 95.4 Vent Mode Prvc Mechanical Rate 16 FiO2 40.0 Tidal Volume 500 PEEP 5 Sodium Potassium Chloride Carbon Dioxide Anion Gap BUN Creatinine Est GFR ( Amer) Est GFR (Non-Af Amer) POC Glucose (mg/dL) 81 111 H Random Glucose Calcium Phosphorus Magnesium Total Bilirubin AST ALT Alkaline Phosphatase Total Protein Albumin Globulin Albumin/Globulin Ratio Procalcitonin Urine Color Urine Clarity Urine pH Ur Specific [place] Urine Protein Urine Glucose (UA) Urine Ketones Urine Blood Urine Nitrate Urine Bilirubin Urine Urobilinogen Ur Leukocyte Esterase Urine WBC (Auto) Urine RBC (Auto) Ur Squamous Epith Cells Urine Bacteria Granular Casts (Auto) Levetiracetam RPR Hepatitis A IgM Ab Hep Bs Antigen Hep B Core IgM Ab Hepatitis C Antibody HIV 1&2 Antibody Screen Influenza Typ A,B (EIA) Grp A Beta Strep Ag 01/27/18 01/27/18 01/27/18 06:03 06:03 06:03 WBC RBC Hgb Hct MCV MCH MCHC RDW Plt Count MPV Neut % (Auto) Lymph % (Auto) [place] % (Auto) Eos % (Auto) Baso % (Auto) Neut # (Auto) Lymph # (Auto) [place] # (Auto) Eos # (Auto) Baso # (Auto) Puncture Site pCO2 pO2 HCO3 ABG pH ABG Total CO2 ABG O2 Saturation ABG Base Excess ABG Hemoglobin ABG Carboxyhemoglobin POC ABG HHb (Measured) ABG Methemoglobin Jamey Test A-a O2 Difference Respiratory Index Hgb O2 Saturation Vent Mode Mechanical Rate FiO2 Tidal Volume PEEP Sodium Potassium Chloride Carbon Dioxide Anion Gap BUN Creatinine Est GFR ( Amer) Est GFR (Non-Af Amer) POC Glucose (mg/dL) Random Glucose Calcium Phosphorus Magnesium Total Bilirubin AST ALT Alkaline Phosphatase Total Protein Albumin Globulin Albumin/Globulin Ratio Procalcitonin Urine Color Urine Clarity Urine pH Ur Specific [place] Urine Protein Urine Glucose (UA) Urine Ketones Urine Blood Urine Nitrate Urine Bilirubin Urine Urobilinogen Ur Leukocyte Esterase Urine WBC (Auto) Urine RBC (Auto) Ur Squamous Epith Cells Urine Bacteria Granular Casts (Auto) Levetiracetam RPR Hepatitis A IgM Ab Negative Hep Bs Antigen Negative Hep B Core IgM Ab Negative Hepatitis C Antibody Negative HIV 1&2 Antibody Screen Negative Influenza Typ A,B (EIA) Negative for flu a/b Grp A Beta Strep Ag 01/27/18 01/27/18 01/27/18 06:03 06:03 06:32 WBC 8.0 RBC 3.87 L Hgb 12.2 Hct 35.4 MCV 91.4 MCH 31.5 H MCHC 34.5 RDW 12.3 Plt Count 137 MPV 12.6 H Neut % (Auto) 81.6 H Lymph % (Auto) 12.0 L [place] % (Auto) 4.3 Eos % (Auto) 1.8 Baso % (Auto) 0.3 Neut # (Auto) 6.5 Lymph # (Auto) 1.0 [place] # (Auto) 0.3 Eos # (Auto) 0.1 Baso # (Auto) 0.0 Puncture Site pCO2 pO2 HCO3 ABG pH ABG Total CO2 ABG O2 Saturation ABG Base Excess ABG Hemoglobin ABG Carboxyhemoglobin POC ABG HHb (Measured) ABG Methemoglobin Jamey Test A-a O2 Difference Respiratory Index Hgb O2 Saturation Vent Mode Mechanical Rate FiO2 Tidal Volume PEEP Sodium 145 Potassium 3.4 L Chloride 107 Carbon Dioxide 26 Anion Gap 16 BUN 33 H Creatinine 1.1 Est GFR ( Amer) > 60 Est GFR (Non-Af Amer) > 60 POC Glucose (mg/dL) 118 H Random Glucose 93 Calcium 8.0 L Phosphorus 3.4 Magnesium 2.3 Total Bilirubin 0.5 AST 98 H D ALT 98 H Alkaline Phosphatase 124 Total Protein 6.0 L Albumin 2.8 L Globulin 3.2 Albumin/Globulin Ratio 0.9 L Procalcitonin Urine Color Urine Clarity Urine pH Ur Specific [place] Urine Protein Urine Glucose (UA) Urine Ketones Urine Blood Urine Nitrate Urine Bilirubin Urine Urobilinogen Ur Leukocyte Esterase Urine WBC (Auto) Urine RBC (Auto) Ur Squamous Epith Cells Urine Bacteria Granular Casts (Auto) Levetiracetam RPR Hepatitis A IgM Ab Hep Bs Antigen Hep B Core IgM Ab Hepatitis C Antibody HIV 1&2 Antibody Screen Influenza Typ A,B (EIA) Grp A Beta Strep Ag 01/27/18 01/27/18 01/27/18 07:57 09:29 10:17 WBC RBC Hgb Hct MCV MCH MCHC RDW Plt Count MPV Neut % (Auto) Lymph % (Auto) [place] % (Auto) Eos % (Auto) Baso % (Auto) Neut # (Auto) Lymph # (Auto) [place] # (Auto) Eos # (Auto) Baso # (Auto) Puncture Site pCO2 pO2 HCO3 ABG pH ABG Total CO2 ABG O2 Saturation ABG Base Excess ABG Hemoglobin ABG Carboxyhemoglobin POC ABG HHb (Measured) ABG Methemoglobin Jamey Test A-a O2 Difference Respiratory Index Hgb O2 Saturation Vent Mode Mechanical Rate FiO2 Tidal Volume PEEP Sodium Potassium Chloride Carbon Dioxide Anion Gap BUN Creatinine Est GFR ( Amer) Est GFR (Non-Af Amer) POC Glucose (mg/dL) 137 H 160 H 158 H Random Glucose Calcium Phosphorus Magnesium Total Bilirubin AST ALT Alkaline Phosphatase Total Protein Albumin Globulin Albumin/Globulin Ratio Procalcitonin Urine Color Urine Clarity Urine pH Ur Specific [place] Urine Protein Urine Glucose (UA) Urine Ketones Urine Blood Urine Nitrate Urine Bilirubin Urine Urobilinogen Ur Leukocyte Esterase Urine WBC (Auto) Urine RBC (Auto) Ur Squamous Epith Cells Urine Bacteria Granular Casts (Auto) Levetiracetam RPR Hepatitis A IgM Ab Hep Bs Antigen Hep B Core IgM Ab Hepatitis C Antibody HIV 1&2 Antibody Screen Influenza Typ A,B (EIA) Grp A Beta Strep Ag 01/27/18 01/27/18 01/27/18 11:06 12:16 13:21 WBC RBC Hgb Hct MCV MCH MCHC RDW Plt Count MPV Neut % (Auto) Lymph % (Auto) [place] % (Auto) Eos % (Auto) Baso % (Auto) Neut # (Auto) Lymph # (Auto) [place] # (Auto) Eos # (Auto) Baso # (Auto) Puncture Site pCO2 pO2 HCO3 ABG pH ABG Total CO2 ABG O2 Saturation ABG Base Excess ABG Hemoglobin ABG Carboxyhemoglobin POC ABG HHb (Measured) ABG Methemoglobin Jamey Test A-a O2 Difference Respiratory Index Hgb O2 Saturation Vent Mode Mechanical Rate FiO2 Tidal Volume PEEP Sodium Potassium Chloride Carbon Dioxide Anion Gap BUN Creatinine Est GFR ( Amer) Est GFR (Non-Af Amer) POC Glucose (mg/dL) 186 H 207 H 220 H Random Glucose Calcium Phosphorus Magnesium Total Bilirubin AST ALT Alkaline Phosphatase Total Protein Albumin Globulin Albumin/Globulin Ratio Procalcitonin Urine Color Urine Clarity Urine pH Ur Specific [place] Urine Protein Urine Glucose (UA) Urine Ketones Urine Blood Urine Nitrate Urine Bilirubin Urine Urobilinogen Ur Leukocyte Esterase Urine WBC (Auto) Urine RBC (Auto) Ur Squamous Epith Cells Urine Bacteria Granular Casts (Auto) Levetiracetam RPR Hepatitis A IgM Ab Hep Bs Antigen Hep B Core IgM Ab Hepatitis C Antibody HIV 1&2 Antibody Screen Influenza Typ A,B (EIA) Grp A Beta Strep Ag 01/27/18 01/27/18 14:15 15:10 WBC RBC Hgb Hct MCV MCH MCHC RDW Plt Count MPV Neut % (Auto) Lymph % (Auto) [place] % (Auto) Eos % (Auto) Baso % (Auto) Neut # (Auto) Lymph # (Auto) [place] # (Auto) Eos # (Auto) Baso # (Auto) Puncture Site pCO2 pO2 HCO3 ABG pH ABG Total CO2 ABG O2 Saturation ABG Base Excess ABG Hemoglobin ABG Carboxyhemoglobin POC ABG HHb (Measured) ABG Methemoglobin Jamey Test A-a O2 Difference Respiratory Index Hgb O2 Saturation Vent Mode Mechanical Rate FiO2 Tidal Volume PEEP Sodium Potassium Chloride Carbon Dioxide Anion Gap BUN Creatinine Est GFR ( Amer) Est GFR (Non-Af Amer) POC Glucose (mg/dL) 219 H 261 H Random Glucose Calcium Phosphorus Magnesium Total Bilirubin AST ALT Alkaline Phosphatase Total Protein Albumin Globulin Albumin/Globulin Ratio Procalcitonin Urine Color Urine Clarity Urine pH Ur Specific [place] Urine Protein Urine Glucose (UA) Urine Ketones Urine Blood Urine Nitrate Urine Bilirubin Urine Urobilinogen Ur Leukocyte Esterase Urine WBC (Auto) Urine RBC (Auto) Ur Squamous Epith Cells Urine Bacteria Granular Casts (Auto) Levetiracetam RPR Hepatitis A IgM Ab Hep Bs Antigen Hep B Core IgM Ab Hepatitis C Antibody HIV 1&2 Antibody Screen Influenza Typ A,B (EIA) Grp A Beta Strep Ag Fingerstick Blood Sugar Results: 220
[2018-01-27] MEDS: (Novolin R) Insulin Human Regular 100 units/ml vial SC SCH (18:24)
[2018-01-28] MEDS: (Novolin R) Insulin Human Regular 100 units/ml vial SC SCH ×4 (00:07→17:47)
--- NOTE | 2018-01-28 00:22 | PN ---
DATE: SUBJECTIVE: The patient is unresponsive. He withdraws from pain. He is on ventilator. His MRI is negative for CVA. PHYSICAL EXAMINATION: VITAL SIGNS: Blood pressure 135/60, pulse 74, respiratory rate 17, temperature 99. LUNGS: Bilaterally transmitted breath sounds. CVS: S1, S2 regular. No thrills, no rales. ABDOMEN: Soft, nontender. Bowel sounds are positive. ASSESSMENT: 1. Status epilepticus, resolved with Keppra. 2. Respiratory failure. The patient is ventilator dependent and we are waiting to wean him off. 3. Diabetes. 4. Seizures. 5. Hypertension. PLAN: Medical management. Monitor the patient. Arash Rose MD
[2018-01-28] MEDS: Albuterol-Ipratrop 3 mg / 0.5 (3 ml) UD INH SCH ×4 (03:31→19:32)
[2018-01-28 05:59] LABS: BASO % 0.3 % (0.0-2.0); EOS # 0.1 K/uL (0.0-0.7); EOS % 1.4 % (0.0-4.0); HEMOGLOBIN 10.4 g/dL (12.0-18.0); LYMPH # 0.9 K/uL (1.0-4.3); MEAN CORPUSCULAR HEMOGLOBIN 30.8 pg (27.0-31.0); MEAN CORPUSCULAR HGB CONC 33.8 g/dL (33.0-37.0); MEAN PLATELET VOLUME 12.1 fL (7.2-11.7); MONO # 0.5 K/uL (0.0-0.8); MONO % 8.8 % (0.0-10.0); NEUT # 4.5 K/uL (1.8-7.0); NEUT % 74.5 % (50.0-75.0); RBC 3.39 Mil/uL (4.40-5.90); RED CELL DISTRIBUTION WIDTH 12.1 % (11.5-14.5)
[2018-01-28 06:11] LABS: ABG ALLEN TEST NEG; ARTERIAL BLOOD GAS HCO3 24.9 mmol/L (21-28); ARTERIAL BLOOD GAS HEMOGLOBIN 12.5 g/dL (11.7-17.4); ARTERIAL BLOOD GAS O2 SAT 98.9 % (95-98); ARTERIAL BLOOD GAS PCO2 35 mm/Hg (35-45); ARTERIAL BLOOD GAS PH 7.44 (7.35-7.45); ARTERIAL BLOOD GAS PO2 106 mm/Hg (80-100); ARTERIAL BLOOD GAS TCO2 24.9 mmol/L (22-28)
[2018-01-28 06:17] LABS: BLOOD UREA NITROGEN 34 mg/dL (9-20); CALCIUM 7.8 mg/dl (8.6-10.4); GFR AFRICAN-AMERICAN > 60; GFR NON-AFRICAN AMERICAN > 60
--- NOTE | 2018-01-28 08:54 | RAD ---
HISTORY: Follow up right lung opacity COMPARISON: Chest x-ray performed 01/27/18 TECHNIQUE: Chest, one view. FINDINGS: Examination limited by habitus and hypoinflation. Endotracheal tube terminates approximately 5.3 cm above the rianna. Nasogastric tube extends expected location of the stomach. LUNGS: Mild pulmonary venous congestion versus vascular crowding due to hypoinflation. Mild biapical pleural thickening. Mild patchy opacities at the right lung apex may reflect infiltrate atelectasis. Left lower lobe atelectasis or pneumonia. PLEURA: No significant pleural effusion identified. No definite pneumothorax . CARDIOVASCULAR: Cardiomegaly. Atherosclerotic calcifications of the aorta. OSSEOUS STRUCTURES: Degenerative changes. VISUALIZED UPPER ABDOMEN: Elevation of the right hemidiaphragm. OTHER FINDINGS: None. IMPRESSION: Endotracheal tube terminates approximately 5.3 cm above the rianna. Nasogastric tube extends expected location of the stomach. Mild pulmonary venous congestion versus vascular crowding due to hypoinflation. Mild biapical pleural thickening. Mild patchy opacities at the right lung apex may reflect infiltrate atelectasis ; this region is somewhat obscured by overlying external artifact. Left lower lobe atelectasis or pneumonia.
[2018-01-28] MEDS: Pantoprazole 40 mg Susp UD PO SCH (09:23)
[2018-01-28] MEDS: levETIRAcetam 1,000 MG in Sodium Chloride 0.9% 100 ML IVPB SCH ×2 (09:23→21:25)
[2018-01-28] MEDS: (Lantus) Insulin Glargine, Recombinant SC SCH ×2 (09:23→21:05)
[2018-01-28] MEDS: Linezolid 600 mg in D5W 300 ml 600 MG/300 ML BAG IVPB SCH ×2 (09:25→22:34)
--- NOTE | 2018-01-28 10:14 | CP.CCUPN ---
CCU Subjective - Physician Review Events Since Last Encounter (Free Text): 01/28/18 10:12 Patient with a history of coronary artery disease, CABG, CVA PVD diabetes hypertension multiple CVA in the past. Admitted to the hospital with recurrent seizure activities. Patient was also unresponsive in the beginning. Patient was intubated for respiratory insufficiency. During the stay in the ICU patient was closely monitored neuro point of view. EEG was done. Also MRI of the brain, the report is pending. Patient currently on ventilator. yesterday patient had a high fever, now having low-grade fever. Endotracheal secretions noted Tolerating the feeding On examination: On ventilator. Patient is having edema upper extremities. increasing stiffness noted Upper extremities. Patient is responding to deep stability. patient is today localizing, and he is opening his eyes Patient localizing the pain Extensor Pupils are equal reacting bilaterally Chest x-ray nonspecific Labs reviewed in Sodium is improving Assessment and recommendation: 67-year-old male with history of CAD had CABG CVA PVD diabetes hypertension. Admitted with seizures activity despite insufficiency currently having fever. On antibiotic. Continue the current treatment. Neurological recovery is very slow Recommended tracheostomy spoke to the patient's family Still neurologically patient is unstable Continue to monitor cPAP trial today Critical Care Time Spent (in minutes): 45 CCU Objective - Vital Signs / Intake & Output Vital Signs (Last 4 hours): Vital Signs Temp Pulse Resp BP Pulse Ox 01/28/18 09:22 102/48 L 01/28/18 09:07 79 19 102/48 L 99 01/28/18 09:00 99.8 F H 86 23 99 01/28/18 08:07 86 21 137/71 98 01/28/18 08:00 90 26 H 98 01/28/18 07:07 90 14 135/64 97 01/28/18 07:00 89 17 98 Intake and Output (Last 8hrs): Intake & Output 01/27/18 01/28/18 01/28/18 21:59 06:59 14:59 Intake Total 750 Output Total 235 Balance 515 Weight Intake: Intake, IV Amount 200 Left Antecubital Left Forearm 200 Tube Feeding 150 TPN/PPN Other 400 Output: Urine 235 Urethral (Stanley) 235 Stool 0 Emesis Other: # Bowel Movements 1 - Physical Exam Head: Positive for: Atraumatic, Normocephalic Pupils: Positive for: Other (corneal reflex) Mouth: Positive for: Other (trach in place) Neck: Positive for: Normal Range of Motion Respiratory/Chest: Positive for: Clear to Auscultation. Negative for: Respiratory Distress Cardiovascular: Positive for: Regular Rate and Rhythm, Normal S1, S2. Negative for: Tachycardic Abdomen: Positive for: Normal Bowel Sounds, Other (obese). Negative for: Tenderness, Distention, Peritoneal Signs Lower Extremity: Positive for: Normal Inspection Neurological: Positive for: Other (patient resists both upper extremities upon examination.) Skin: Positive for: Dry - Medications Active Medications: Active Medications Generic Name Dose Route Start Last Admin Trade Name Freq PRN Reason Stop Dose Admin Acetaminophen 650 mg 01/19/18 00:50 01/27/18 16:05 Tylenol 650mg/20.3ml Solution Ud NG 650 mg Q6 PRN Administration GIVE FOR TEMP. 100*F OR ABOVE Albuterol/Ipratropium 3 ml 01/26/18 20:00 01/28/18 07:31 Duoneb 3 Mg/0.5 Mg (3 Ml) Ud INH 3 ml RQ6 [facility] Administration Aspirin 81 mg 01/17/18 10:00 01/28/18 09:22 Aspirin Chewable PO 81 mg DAILY [facility] Administration Carvedilol 12.5 mg 01/22/18 09:07 01/28/18 09:22 Coreg PO 12.5 mg BID [facility] Administration Heparin Sodium (Porcine) 5,000 units 01/17/18 14:00 01/23/18 15:08 Heparin SC Not Given Q8 [facility] Hydralazine HCl 50 mg 01/16/18 22:00 01/28/18 05:56 Apresoline PO 50 mg Q8 [facility] Administration Levetiracetam 1,000 mg/ Sodium 110 mls @ 440 mls/hr 01/22/18 10:00 01/28/18 09:23 Chloride IVPB 440 mls/hr Q12H [facility] Administration Acyclovir 750 mg/ Sodium 250 mls @ 100 mls/hr 01/26/18 19:00 01/28/18 06:00 Chloride IV 100 mls/hr Q12H [facility] Administration Protocol Linezolid 600 mg in 300 mls @ 200 mls/hr 01/26/18 22:00 01/28/18 09:25 Zyvox 600mg/300ml D5w IVPB 200 mls/hr Q12H [facility] Administration Protocol Ceftazidime 2 gm/ Sodium 100 mls @ 100 mls/hr 01/26/18 20:00 01/28/18 07:55 Chloride IV 100 mls/hr Q12H [facility] Administration Protocol Insulin Glargine 20 unit 01/25/18 22:00 01/28/18 09:23 Lantus SC 20 units Q12 [facility] Administration Insulin Human Regular 0 unit 01/27/18 18:00 01/28/18 05:57 Novolin R SC 4 unit Q6 [facility] Administration Protocol Pantoprazole Sodium 40 mg 01/21/18 12:00 01/28/18 09:23 Protonix Susp PO 40 mg 1000 [facility] Administration Rosuvastatin Calcium 10 mg 01/16/18 22:00 01/27/18 21:00 Crestor PO 10 mg HS [facility] Administration Sennosides 8.6 mg 01/17/18 14:00 01/28/18 09:24 Senokot Tab PO Not Given DAILY [facility] - Patient Studies Lab Studies: Microbiology Studies 01/26/18 18:45 S.aureus & Coag-Neg Staph PNA FISH - Final Blood-Venous Blood Culture - Preliminary Gram Stain - Final 01/26/18 18:45 Blood Culture - Preliminary Blood-Venous NO GROWTH AFTER 24 HOURS 01/26/18 18:40 Urine Culture - Final Urine,Catheterized No Growth (<1,000 CFU/ML) 01/26/18 18:26 Group A Strep Throat Culture - Final Throat NORMAL SAPROPHYTIC HALEY. CULTURE NEGATIVE FOR BETA STREP GROUP A. Lab Studies 01/28/18 01/28/18 01/28/18 Range/Units 05:51 05:51 05:32 WBC 6.0 (4.8-10.8) K/uL RBC 3.39 L (4.40-5.90) Mil/uL Hgb 10.4 L (12.0-18.0) g/dL Hct 30.8 L (35.0-51.0) % MCV 91.0 (80.0-94.0) fL MCH 30.8 (27.0-31.0) pg MCHC 33.8 (33.0-37.0) g/dL RDW 12.1 (11.5-14.5) % Plt Count 194 (130-400) K/uL MPV 12.1 H (7.2-11.7) fL Neut % (Auto) 74.5 (50.0-75.0) % Lymph % (Auto) 15.0 L (20.0-40.0) % Evangeline % (Auto) 8.8 (0.0-10.0) % Eos % (Auto) 1.4 (0.0-4.0) % Baso % (Auto) 0.3 (0.0-2.0) % Neut # (Auto) 4.5 (1.8-7.0) K/uL Lymph # (Auto) 0.9 L (1.0-4.3) K/uL Evangeline # (Auto) 0.5 (0.0-0.8) K/uL Eos # (Auto) 0.1 (0.0-0.7) K/uL Baso # (Auto) 0.0 (0.0-0.2) K/uL Puncture Site pCO2 (35-45) mm/Hg pO2 (80-100) mm/Hg HCO3 (21-28) mmol/L ABG pH (7.35-7.45) ABG Total CO2 (22-28) mmol/L ABG O2 Saturation (95-98) % ABG Base Excess (-2.0-3.0) mmol/L ABG Hemoglobin (11.7-17.4) g/dL ABG Carboxyhemoglobin (0.5-1.5) % POC ABG HHb (Measured) (0.0-5.0) % ABG Methemoglobin (0.0-3.0) % Jamey Test A-a O2 Difference mm/Hg Respiratory Index Hgb O2 Saturation (95.0-98.0) % Vent Mode Mechanical Rate FiO2 % Tidal Volume PEEP Sodium 138 (132-148) mmol/L Potassium 4.3 (3.6-5.2) mmol/L Chloride 103 (98-107) mmol/L Carbon Dioxide 24 (22-30) mmol/L Anion Gap 15 (10-20) BUN 34 H (9-20) mg/dL Creatinine 1.1 (0.8-1.5) mg/dL Est GFR ( Amer) > 60 Est GFR (Non-Af Amer) > 60 POC Glucose (mg/dL) 254 H (65-110) mg/dL Random Glucose 306 H (75-110) mg/dL Calcium 7.8 L (8.6-10.4) mg/dl 01/28/18 01/27/18 01/27/18 Range/Units 05:30 23:39 18:04 WBC (4.8-10.8) K/uL RBC (4.40-5.90) Mil/uL Hgb (12.0-18.0) g/dL Hct (35.0-51.0) % MCV (80.0-94.0) fL MCH (27.0-31.0) pg MCHC (33.0-37.0) g/dL RDW (11.5-14.5) % Plt Count (130-400) K/uL MPV (7.2-11.7) fL Neut % (Auto) (50.0-75.0) % Lymph % (Auto) (20.0-40.0) % Evangeline % (Auto) (0.0-10.0) % Eos % (Auto) (0.0-4.0) % Baso % (Auto) (0.0-2.0) % Neut # (Auto) (1.8-7.0) K/uL Lymph # (Auto) (1.0-4.3) K/uL Evangeline # (Auto) (0.0-0.8) K/uL Eos # (Auto) (0.0-0.7) K/uL Baso # (Auto) (0.0-0.2) K/uL Puncture Site Rbrachial pCO2 35 (35-45) mm/Hg pO2 106 H (80-100) mm/Hg HCO3 24.9 (21-28) mmol/L ABG pH 7.44 (7.35-7.45) ABG Total CO2 24.9 (22-28) mmol/L ABG O2 Saturation 98.9 H (95-98) % ABG Base Excess 0 (-2.0-3.0) mmol/L ABG Hemoglobin 12.5 (11.7-17.4) g/dL ABG Carboxyhemoglobin 1.7 H (0.5-1.5) % POC ABG HHb (Measured) 1.1 (0.0-5.0) % ABG Methemoglobin 0.8 (0.0-3.0) % Jamey Test Neg A-a O2 Difference 135.0 mm/Hg Respiratory Index 1.3 Hgb O2 Saturation 96.4 (95.0-98.0) % Vent Mode Prvc Mechanical Rate 16 FiO2 40.0 % Tidal Volume 500 PEEP 5 Sodium (132-148) mmol/L Potassium (3.6-5.2) mmol/L Chloride (98-107) mmol/L Carbon Dioxide (22-30) mmol/L Anion Gap (10-20) BUN (9-20) mg/dL Creatinine (0.8-1.5) mg/dL Est GFR ( Amer) Est GFR (Non-Af Amer) POC Glucose (mg/dL) 318 H 325 H (65-110) mg/dL Random Glucose (75-110) mg/dL Calcium (8.6-10.4) mg/dl 01/27/18 01/27/18 01/27/18 Range/Units 15:10 14:15 13:21 WBC (4.8-10.8) K/uL RBC (4.40-5.90) Mil/uL Hgb (12.0-18.0) g/dL Hct (35.0-51.0) % MCV (80.0-94.0) fL MCH (27.0-31.0) pg MCHC (33.0-37.0) g/dL RDW (11.5-14.5) % Plt Count (130-400) K/uL MPV (7.2-11.7) fL Neut % (Auto) (50.0-75.0) % Lymph % (Auto) (20.0-40.0) % Evangeline % (Auto) (0.0-10.0) % Eos % (Auto) (0.0-4.0) % Baso % (Auto) (0.0-2.0) % Neut # (Auto) (1.8-7.0) K/uL Lymph # (Auto) (1.0-4.3) K/uL Evangeline # (Auto) (0.0-0.8) K/uL Eos # (Auto) (0.0-0.7) K/uL Baso # (Auto) (0.0-0.2) K/uL Puncture Site pCO2 (35-45) mm/Hg pO2 (80-100) mm/Hg HCO3 (21-28) mmol/L ABG pH (7.35-7.45) ABG Total CO2 (22-28) mmol/L ABG O2 Saturation (95-98) % ABG Base Excess (-2.0-3.0) mmol/L ABG Hemoglobin (11.7-17.4) g/dL ABG Carboxyhemoglobin (0.5-1.5) % POC ABG HHb (Measured) (0.0-5.0) % ABG Methemoglobin (0.0-3.0) % Jamey Test A-a O2 Difference mm/Hg Respiratory Index Hgb O2 Saturation (95.0-98.0) % Vent Mode Mechanical Rate FiO2 % Tidal Volume PEEP Sodium (132-148) mmol/L Potassium (3.6-5.2) mmol/L Chloride (98-107) mmol/L Carbon Dioxide (22-30) mmol/L Anion Gap (10-20) BUN (9-20) mg/dL Creatinine (0.8-1.5) mg/dL Est GFR ( Amer) Est GFR (Non-Af Amer) POC Glucose (mg/dL) 261 H 219 H 220 H (65-110) mg/dL Random Glucose (75-110) mg/dL Calcium (8.6-10.4) mg/dl 01/27/18 01/27/18 01/27/18 Range/Units 12:16 11:06 10:17 WBC (4.8-10.8) K/uL RBC (4.40-5.90) Mil/uL Hgb (12.0-18.0) g/dL Hct (35.0-51.0) % MCV (80.0-94.0) fL MCH (27.0-31.0) pg MCHC (33.0-37.0) g/dL RDW (11.5-14.5) % Plt Count (130-400) K/uL MPV (7.2-11.7) fL Neut % (Auto) (50.0-75.0) % Lymph % (Auto) (20.0-40.0) % Evangeline % (Auto) (0.0-10.0) % Eos % (Auto) (0.0-4.0) % Baso % (Auto) (0.0-2.0) % Neut # (Auto) (1.8-7.0) K/uL Lymph # (Auto) (1.0-4.3) K/uL Evangeline # (Auto) (0.0-0.8) K/uL Eos # (Auto) (0.0-0.7) K/uL Baso # (Auto) (0.0-0.2) K/uL Puncture Site pCO2 (35-45) mm/Hg pO2 (80-100) mm/Hg HCO3 (21-28) mmol/L ABG pH (7.35-7.45) ABG Total CO2 (22-28) mmol/L ABG O2 Saturation (95-98) % ABG Base Excess (-2.0-3.0) mmol/L ABG Hemoglobin (11.7-17.4) g/dL ABG Carboxyhemoglobin (0.5-1.5) % POC ABG HHb (Measured) (0.0-5.0) % ABG Methemoglobin (0.0-3.0) % Jamey Test A-a O2 Difference mm/Hg Respiratory Index Hgb O2 Saturation (95.0-98.0) % Vent Mode Mechanical Rate FiO2 % Tidal Volume PEEP Sodium (132-148) mmol/L Potassium (3.6-5.2) mmol/L Chloride (98-107) mmol/L Carbon Dioxide (22-30) mmol/L Anion Gap (10-20) BUN (9-20) mg/dL Creatinine (0.8-1.5) mg/dL Est GFR ( Amer) Est GFR (Non-Af Amer) POC Glucose (mg/dL) 207 H 186 H 158 H (65-110) mg/dL Random Glucose (75-110) mg/dL Calcium (8.6-10.4) mg/dl 01/27/18 Range/Units 09:29 WBC (4.8-10.8) K/uL RBC (4.40-5.90) Mil/uL Hgb (12.0-18.0) g/dL Hct (35.0-51.0) % MCV (80.0-94.0) fL MCH (27.0-31.0) pg MCHC (33.0-37.0) g/dL RDW (11.5-14.5) % Plt Count (130-400) K/uL MPV (7.2-11.7) fL Neut % (Auto) (50.0-75.0) % Lymph % (Auto) (20.0-40.0) % Evangeline % (Auto) (0.0-10.0) % Eos % (Auto) (0.0-4.0) % Baso % (Auto) (0.0-2.0) % Neut # (Auto) (1.8-7.0) K/uL Lymph # (Auto) (1.0-4.3) K/uL Evangeline # (Auto) (0.0-0.8) K/uL Eos # (Auto) (0.0-0.7) K/uL Baso # (Auto) (0.0-0.2) K/uL Puncture Site pCO2 (35-45) mm/Hg pO2 (80-100) mm/Hg HCO3 (21-28) mmol/L ABG pH (7.35-7.45) ABG Total CO2 (22-28) mmol/L ABG O2 Saturation (95-98) % ABG Base Excess (-2.0-3.0) mmol/L ABG Hemoglobin (11.7-17.4) g/dL ABG Carboxyhemoglobin (0.5-1.5) % POC ABG HHb (Measured) (0.0-5.0) % ABG Methemoglobin (0.0-3.0) % Jamey Test A-a O2 Difference mm/Hg Respiratory Index Hgb O2 Saturation (95.0-98.0) % Vent Mode Mechanical Rate FiO2 % Tidal Volume PEEP Sodium (132-148) mmol/L Potassium (3.6-5.2) mmol/L Chloride (98-107) mmol/L Carbon Dioxide (22-30) mmol/L Anion Gap (10-20) BUN (9-20) mg/dL Creatinine (0.8-1.5) mg/dL Est GFR ( Amer) Est GFR (Non-Af Amer) POC Glucose (mg/dL) 160 H (65-110) mg/dL Random Glucose (75-110) mg/dL Calcium (8.6-10.4) mg/dl Laboratory Results - last 24 hr 01/27/18 01/27/18 01/27/18 09:29 10:17 11:06 WBC RBC Hgb Hct MCV MCH MCHC RDW Plt Count MPV Neut % (Auto) Lymph % (Auto) Evangeline % (Auto) Eos % (Auto) Baso % (Auto) Neut # (Auto) Lymph # (Auto) Evangeline # (Auto) Eos # (Auto) Baso # (Auto) Puncture Site pCO2 pO2 HCO3 ABG pH ABG Total CO2 ABG O2 Saturation ABG Base Excess ABG Hemoglobin ABG Carboxyhemoglobin POC ABG HHb (Measured) ABG Methemoglobin Jamey Test A-a O2 Difference Respiratory Index Hgb O2 Saturation Vent Mode Mechanical Rate FiO2 Tidal Volume PEEP Sodium Potassium Chloride Carbon Dioxide Anion Gap BUN Creatinine Est GFR ( Amer) Est GFR (Non-Af Amer) POC Glucose (mg/dL) 160 H 158 H 186 H Random Glucose Calcium 01/27/18 01/27/18 01/27/18 12:16 13:21 14:15 WBC RBC Hgb Hct MCV MCH MCHC RDW Plt Count MPV Neut % (Auto) Lymph % (Auto) Evangeline % (Auto) Eos % (Auto) Baso % (Auto) Neut # (Auto) Lymph # (Auto) Evangeline # (Auto) Eos # (Auto) Baso # (Auto) Puncture Site pCO2 pO2 HCO3 ABG pH ABG Total CO2 ABG O2 Saturation ABG Base Excess ABG Hemoglobin ABG Carboxyhemoglobin POC ABG HHb (Measured) ABG Methemoglobin Jamey Test A-a O2 Difference Respiratory Index Hgb O2 Saturation Vent Mode Mechanical Rate FiO2 Tidal Volume PEEP Sodium Potassium Chloride Carbon Dioxide Anion Gap BUN Creatinine Est GFR ( Amer) Est GFR (Non-Af Amer) POC Glucose (mg/dL) 207 H 220 H 219 H Random Glucose Calcium 01/27/18 01/27/18 01/27/18 15:10 18:04 23:39 WBC RBC Hgb Hct MCV MCH MCHC RDW Plt Count MPV Neut % (Auto) Lymph % (Auto) Evangeline % (Auto) Eos % (Auto) Baso % (Auto) Neut # (Auto) Lymph # (Auto) Evangeline # (Auto) Eos # (Auto) Baso # (Auto) Puncture Site pCO2 pO2 HCO3 ABG pH ABG Total CO2 ABG O2 Saturation ABG Base Excess ABG Hemoglobin ABG Carboxyhemoglobin POC ABG HHb (Measured) ABG Methemoglobin Jamye Test A-a O2 Difference Respiratory Index Hgb O2 Saturation Vent Mode Mechanical Rate FiO2 Tidal Volume PEEP Sodium Potassium Chloride Carbon Dioxide Anion Gap BUN Creatinine Est GFR ( Amer) Est GFR (Non-Af Amer) POC Glucose (mg/dL) 261 H 325 H 318 H Random Glucose Calcium 01/28/18 01/28/18 01/28/18 05:30 05:32 05:51 WBC RBC Hgb Hct MCV MCH MCHC RDW Plt Count MPV Neut % (Auto) Lymph % (Auto) Evangeline % (Auto) Eos % (Auto) Baso % (Auto) Neut # (Auto) Lymph # (Auto) Evangeline # (Auto) Eos # (Auto) Baso # (Auto) Puncture Site Rbrachial pCO2 35 pO2 106 H HCO3 24.9 ABG pH 7.44 ABG Total CO2 24.9 ABG O2 Saturation 98.9 H ABG Base Excess 0 ABG Hemoglobin 12.5 ABG Carboxyhemoglobin 1.7 H POC ABG HHb (Measured) 1.1 ABG Methemoglobin 0.8 Jamey Test Neg A-a O2 Difference 135.0 Respiratory Index 1.3 Hgb O2 Saturation 96.4 Vent Mode Prvc Mechanical Rate 16 FiO2 40.0 Tidal Volume 500 PEEP 5 Sodium 138 Potassium 4.3 Chloride 103 Carbon Dioxide 24 Anion Gap 15 BUN 34 H Creatinine 1.1 Est GFR ( Amer) > 60 Est GFR (Non-Af Amer) > 60 POC Glucose (mg/dL) 254 H Random Glucose 306 H Calcium 7.8 L 01/28/18 05:51 WBC 6.0 RBC 3.39 L Hgb 10.4 L Hct 30.8 L MCV 91.0 MCH 30.8 MCHC 33.8 RDW 12.1 Plt Count 194 MPV 12.1 H Neut % (Auto) 74.5 Lymph % (Auto) 15.0 L Evangeline % (Auto) 8.8 Eos % (Auto) 1.4 Baso % (Auto) 0.3 Neut # (Auto) 4.5 Lymph # (Auto) 0.9 L Evangeline # (Auto) 0.5 Eos # (Auto) 0.1 Baso # (Auto) 0.0 Puncture Site pCO2 pO2 HCO3 ABG pH ABG Total CO2 ABG O2 Saturation ABG Base Excess ABG Hemoglobin ABG Carboxyhemoglobin POC ABG HHb (Measured) ABG Methemoglobin Jamey Test A-a O2 Difference Respiratory Index Hgb O2 Saturation Vent Mode Mechanical Rate FiO2 Tidal Volume PEEP Sodium Potassium Chloride Carbon Dioxide Anion Gap BUN Creatinine Est GFR ( Amer) Est GFR (Non-Af Amer) POC Glucose (mg/dL) Random Glucose Calcium Fingerstick Blood Sugar Results: 254
--- NOTE | 2018-01-28 10:57 | CP.PCM.PN ---
Subjective - Date & Time of Evaluation Date of Evaluation: 01/28/18 Time of Evaluation: 10:55 - Subjective Subjective: Mr. Latif was seen and examined at the bedside in ICU. He remains on mechanical ventilator on PRVC mode with GCS- 4T. He has corneal reflex, gag reflex, but with no purposeful movement. He is on contact isolation for staph aureus in his blood. There was no untoward events overnight. Objective - Vital Signs/Intake and Output Vital Signs (last 24 hours): Temp Pulse Resp BP Pulse Ox 99.8 F H 79 19 102/48 L 99 01/28/18 09:00 01/28/18 09:07 01/28/18 09:07 01/28/18 09:22 01/28/18 09:07 Intake and Output: 01/28/18 01/28/18 06:59 18:59 Intake Total 750 Output Total 235 Balance 515 - Medications Medications: Current Medications Acetaminophen (Tylenol 650mg/20.3ml Solution Ud) 650 mg NG Q6 PRN PRN Reason: GIVE FOR TEMP. 100*F OR ABOVE Last Admin: 01/27/18 16:05 Dose: 650 mg Albuterol/Ipratropium (Duoneb 3 Mg/0.5 Mg (3 Ml) Ud) 3 ml INH RQ6 [facility] Last Admin: 01/28/18 07:31 Dose: 3 ml Aspirin (Aspirin Chewable) 81 mg PO DAILY [facility] Last Admin: 01/28/18 09:22 Dose: 81 mg Carvedilol (Coreg) 12.5 mg PO BID [facility] Last Admin: 01/28/18 09:22 Dose: 12.5 mg Heparin Sodium (Porcine) (Heparin) 5,000 units SC Q8 [facility] Last Admin: 01/23/18 15:08 Dose: Not Given Hydralazine HCl (Apresoline) 50 mg PO Q8 [facility] Last Admin: 01/28/18 05:56 Dose: 50 mg Levetiracetam 1,000 mg/ Sodium (Chloride) 110 mls @ 440 mls/hr IVPB Q12H [facility] Last Admin: 01/28/18 09:23 Dose: 440 mls/hr Acyclovir 750 mg/ Sodium (Chloride) 250 mls @ 100 mls/hr IV Q12H [facility] PRN Reason: Protocol Last Admin: 01/28/18 06:00 Dose: 100 mls/hr Linezolid (Zyvox 600mg/300ml D5w) 600 mg in 300 mls @ 200 mls/hr IVPB Q12H [facility] PRN Reason: Protocol Last Admin: 01/28/18 09:25 Dose: 200 mls/hr Ceftazidime 2 gm/ Sodium (Chloride) 100 mls @ 100 mls/hr IV Q12H [facility] PRN Reason: Protocol Last Admin: 01/28/18 07:55 Dose: 100 mls/hr Insulin Glargine (Lantus) 20 unit SC Q12 [facility] Last Admin: 01/28/18 09:23 Dose: 20 units Insulin Human Regular (Novolin R) 0 unit SC Q6 [facility] PRN Reason: Protocol Last Admin: 01/28/18 05:57 Dose: 4 unit Pantoprazole Sodium (Protonix Susp) 40 mg PO 1000 [facility] Last Admin: 01/28/18 09:23 Dose: 40 mg Rosuvastatin Calcium (Crestor) 10 mg PO HS [facility] Last Admin: 01/27/18 21:00 Dose: 10 mg Sennosides (Senokot Tab) 8.6 mg PO DAILY [facility] Last Admin: 01/28/18 09:24 Dose: Not Given - Labs Labs: 01/28/18 05:51 01/28/18 05:51 PT 10.6 SECONDS (9.7-12.2) 01/16/18 12:27 INR 0.9 01/16/18 12:27 APTT 33 SECONDS (21-34) 01/16/18 12:27 - Constitutional Appears: No Acute Distress - Head Exam Head Exam: NORMAL INSPECTION - Neurological Exam Neuro motor strength exam: Left Upper Extremity: 2/1, Right Upper Extremity: 2/1 , Left Lower Extremity: 2/1, Right Lower Extremity: 2/1 Additional comments: GCS- 4T Assessment and Plan (1) Status epilepticus Assessment & Plan: Case discussed with Dr. Baldwin, continue all current medical regimen. Recommend to treat underlying infection. Pending MRI of the brain. Status: Acute
--- NOTE | 2018-01-28 16:10 | CP.PCM.PN ---
Subjective - Date & Time of Evaluation Date of Evaluation: 01/28/18 Time of Evaluation: 09:00 - Subjective Subjective: intubated but more arousable nad + blood c/s noted LP not done yet Objective - Vital Signs/Intake and Output Vital Signs (last 24 hours): Temp Pulse Resp BP Pulse Ox 99.5 F 70 19 120/72 99 01/28/18 13:00 01/28/18 16:00 01/28/18 16:00 01/28/18 15:07 01/28/18 16:00 Intake and Output: 01/28/18 01/28/18 06:59 18:59 Intake Total 2200 Output Total 1480 Balance 720 - Medications Medications: Current Medications Acetaminophen (Tylenol 650mg/20.3ml Solution Ud) 650 mg NG Q6 PRN PRN Reason: GIVE FOR TEMP. 100*F OR ABOVE Last Admin: 01/27/18 16:05 Dose: 650 mg Albuterol/Ipratropium (Duoneb 3 Mg/0.5 Mg (3 Ml) Ud) 3 ml INH RQ6 [facility] Last Admin: 01/28/18 13:58 Dose: 3 ml Aspirin (Aspirin Chewable) 81 mg PO DAILY [facility] Last Admin: 01/28/18 09:22 Dose: 81 mg Carvedilol (Coreg) 12.5 mg PO BID [facility] Last Admin: 01/28/18 09:22 Dose: 12.5 mg Heparin Sodium (Porcine) (Heparin) 5,000 units SC Q8 [facility] Last Admin: 01/23/18 15:08 Dose: Not Given Hydralazine HCl (Apresoline) 50 mg PO Q8 [facility] Last Admin: 01/28/18 13:11 Dose: 50 mg Levetiracetam 1,000 mg/ Sodium (Chloride) 110 mls @ 440 mls/hr IVPB Q12H [facility] Last Admin: 01/28/18 09:23 Dose: 440 mls/hr Acyclovir 750 mg/ Sodium (Chloride) 250 mls @ 100 mls/hr IV Q12H [facility] PRN Reason: Protocol Last Admin: 01/28/18 06:00 Dose: 100 mls/hr Linezolid (Zyvox 600mg/300ml D5w) 600 mg in 300 mls @ 200 mls/hr IVPB Q12H [facility] PRN Reason: Protocol Last Admin: 01/28/18 09:25 Dose: 200 mls/hr Ceftazidime 2 gm/ Sodium (Chloride) 100 mls @ 100 mls/hr IV Q12H [facility] PRN Reason: Protocol Last Admin: 01/28/18 07:55 Dose: 100 mls/hr Insulin Glargine (Lantus) 20 unit SC Q12 [facility] Last Admin: 01/28/18 09:23 Dose: 20 units Insulin Human Regular (Novolin R) 0 unit SC Q6 [facility] PRN Reason: Protocol Last Admin: 01/28/18 12:13 Dose: 6 unit Pantoprazole Sodium (Protonix Susp) 40 mg PO 1000 [facility] Last Admin: 01/28/18 09:23 Dose: 40 mg Rosuvastatin Calcium (Crestor) 10 mg PO HS [facility] Last Admin: 01/27/18 21:00 Dose: 10 mg Sennosides (Senokot Tab) 8.6 mg PO DAILY [facility] Last Admin: 01/28/18 09:24 Dose: Not Given - Labs Labs: 01/28/18 05:51 01/28/18 05:51 PT 10.6 SECONDS (9.7-12.2) 01/16/18 12:27 INR 0.9 01/16/18 12:27 APTT 33 SECONDS (21-34) 01/16/18 12:27 - Constitutional Appears: Non-toxic, Confused, Chronically Ill - Head Exam Head Exam: NORMOCEPHALIC - Eye Exam Eye Exam: absent: Scleral icterus - ENT Exam ENT Exam: Mucous Membranes Dry, Normal External Ear Exam - Neck Exam Neck Exam: absent: Lymphadenopathy - Respiratory Exam Respiratory Exam: Decreased Breath Sounds - Cardiovascular Exam Cardiovascular Exam: REGULAR RHYTHM - GI/Abdominal Exam GI & Abdominal Exam: Distended, Soft - Rectal Exam Rectal Exam: Deferred - Exam Exam: NORMAL INSPECTION - Extremities Exam Extremities Exam: Pedal Edema. absent: Calf Tenderness, Tenderness - Back Exam Back Exam: absent: CVA tenderness (L), CVA tenderness (R) - Neurological Exam Neurological Exam: Altered Neuro motor strength exam: Left Upper Extremity: 3, Right Upper Extremity: 3, Left Lower Extremity: 3, Right Lower Extremity: 3 - Psychiatric Exam Psychiatric exam: Depressed - Skin Skin Exam: Dry Assessment and Plan (1) Sepsis Status: Acute (2) Sepsis Status: Acute (3) COPD (chronic obstructive pulmonary disease) Status: Acute (4) Congestive heart failure Status: Acute (5) Diabetes Status: Acute - Assessment and Plan (Free Text) Assessment: cont rx for sepsis consider JUL[facility]N await neuro follow up/ LP ok to d/c acyclovir
--- NOTE | 2018-01-28 19:50 | CP.PCM.PN ---
Subjective - Date & Time of Evaluation Date of Evaluation: 01/28/18 Time of Evaluation: 19:50 - Subjective Subjective: pt is seen and examined, follow up consult is dictated #[id number] Objective - Vital Signs/Intake and Output Vital Signs (last 24 hours): Temp Pulse Resp BP Pulse Ox 98.8 F 68 22 171/69 H 99 01/28/18 17:00 01/28/18 19:00 01/28/18 19:00 01/28/18 18:07 01/28/18 19:00 Intake and Output: 01/28/18 01/29/18 18:59 06:59 Intake Total 2300 50 Output Total 1880 200 Balance 420 -150 - Medications Medications: Current Medications Acetaminophen (Tylenol 650mg/20.3ml Solution Ud) 650 mg NG Q6 PRN PRN Reason: GIVE FOR TEMP. 100*F OR ABOVE Last Admin: 01/27/18 16:05 Dose: 650 mg Albuterol/Ipratropium (Duoneb 3 Mg/0.5 Mg (3 Ml) Ud) 3 ml INH RQ6 [facility] Last Admin: 01/28/18 19:32 Dose: 3 ml Aspirin (Aspirin Chewable) 81 mg PO DAILY [facility] Last Admin: 01/28/18 09:22 Dose: 81 mg Carvedilol (Coreg) 12.5 mg PO BID [facility] Last Admin: 01/28/18 17:17 Dose: 12.5 mg Heparin Sodium (Porcine) (Heparin) 5,000 units SC Q8 [facility] Last Admin: 01/23/18 15:08 Dose: Not Given Hydralazine HCl (Apresoline) 75 mg PO Q8 [facility] Levetiracetam 1,000 mg/ Sodium (Chloride) 110 mls @ 440 mls/hr IVPB Q12H [facility] Last Admin: 01/28/18 09:23 Dose: 440 mls/hr Linezolid (Zyvox 600mg/300ml D5w) 600 mg in 300 mls @ 200 mls/hr IVPB Q12H [facility] PRN Reason: Protocol Last Admin: 01/28/18 09:25 Dose: 200 mls/hr Ceftazidime 2 gm/ Sodium (Chloride) 100 mls @ 100 mls/hr IV Q12H [facility] PRN Reason: Protocol Last Admin: 01/28/18 07:55 Dose: 100 mls/hr Insulin Glargine (Lantus) 26 unit SC Q12 [facility] Insulin Human Regular (Novolin R) 0 unit SC Q6 [facility] PRN Reason: Protocol Last Admin: 01/28/18 17:47 Dose: 6 unit Pantoprazole Sodium (Protonix Susp) 40 mg PO 1000 [facility] Last Admin: 01/28/18 09:23 Dose: 40 mg Rosuvastatin Calcium (Crestor) 10 mg PO HS [facility] Last Admin: 01/27/18 21:00 Dose: 10 mg Sennosides (Senokot Tab) 8.6 mg PO DAILY [facility] Last Admin: 01/28/18 09:24 Dose: Not Given - Labs Labs: 01/28/18 05:51 01/28/18 05:51 PT 10.6 SECONDS (9.7-12.2) 01/16/18 12:27 INR 0.9 01/16/18 12:27 APTT 33 SECONDS (21-34) 01/16/18 12:27
--- NOTE | 2018-01-28 22:35 | CP.PCM.PN ---
Subjective - Date & Time of Evaluation Date of Evaluation: 01/28/18 Time of Evaluation: 20:00 - Subjective Subjective: pt seen and examined at bedside, remains extubated, on physical therapy, breathing on his own, improving Objective - Vital Signs/Intake and Output Vital Signs (last 24 hours): Temp Pulse Resp BP Pulse Ox 98.8 F 68 22 171/69 H 99 01/28/18 17:00 01/28/18 19:00 01/28/18 19:00 01/28/18 18:07 01/28/18 19:00 Intake and Output: 01/28/18 01/29/18 18:59 06:59 Intake Total 2300 50 Output Total 1880 200 Balance 420 -150 - Medications Medications: Current Medications Acetaminophen (Tylenol 650mg/20.3ml Solution Ud) 650 mg NG Q6 PRN PRN Reason: GIVE FOR TEMP. 100*F OR ABOVE Last Admin: 01/27/18 16:05 Dose: 650 mg Albuterol/Ipratropium (Duoneb 3 Mg/0.5 Mg (3 Ml) Ud) 3 ml INH RQ6 [facility] Last Admin: 01/28/18 19:32 Dose: 3 ml Aspirin (Aspirin Chewable) 81 mg PO DAILY [facility] Last Admin: 01/28/18 09:22 Dose: 81 mg Carvedilol (Coreg) 12.5 mg PO BID [facility] Last Admin: 01/28/18 17:17 Dose: 12.5 mg Heparin Sodium (Porcine) (Heparin) 5,000 units SC Q8 [facility] Last Admin: 01/23/18 15:08 Dose: Not Given Hydralazine HCl (Apresoline) 75 mg PO Q8 [facility] Last Admin: 01/28/18 21:06 Dose: 75 mg Levetiracetam 1,000 mg/ Sodium (Chloride) 110 mls @ 440 mls/hr IVPB Q12H [facility] Last Admin: 01/28/18 21:25 Dose: 440 mls/hr Linezolid (Zyvox 600mg/300ml D5w) 600 mg in 300 mls @ 200 mls/hr IVPB Q12H [facility] PRN Reason: Protocol Last Admin: 01/28/18 22:34 Dose: 200 mls/hr Ceftazidime 2 gm/ Sodium (Chloride) 100 mls @ 100 mls/hr IV Q12H [facility] PRN Reason: Protocol Last Admin: 01/28/18 20:55 Dose: 100 mls/hr Insulin Glargine (Lantus) 26 unit SC Q12 [facility] Last Admin: 01/28/18 21:05 Dose: 26 units Insulin Human Regular (Novolin R) 0 unit SC Q6 [facility] PRN Reason: Protocol Pantoprazole Sodium (Protonix Susp) 40 mg PO 1000 [facility] Last Admin: 01/28/18 09:23 Dose: 40 mg Rosuvastatin Calcium (Crestor) 10 mg PO HS [facility] Last Admin: 01/28/18 21:06 Dose: 10 mg Sennosides (Senokot Tab) 8.6 mg PO DAILY [facility] Last Admin: 01/28/18 09:24 Dose: Not Given - Labs Labs: 01/28/18 05:51 01/28/18 05:51 PT 10.6 SECONDS (9.7-12.2) 01/16/18 12:27 INR 0.9 01/16/18 12:27 APTT 33 SECONDS (21-34) 01/16/18 12:27 Assessment and Plan (1) Status epilepticus Status: Acute (2) COPD (chronic obstructive pulmonary disease) Status: Acute (3) Congestive heart failure Status: Acute (4) Diabetes Status: Acute (5) Hypernatremia Status: Acute
[2018-01-29] MEDS: (Novolin R) Insulin Human Regular 100 units/ml vial SC SCH ×4 (00:26→17:34)
[2018-01-29] MEDS: Albuterol-Ipratrop 3 mg / 0.5 (3 ml) UD INH SCH ×4 (02:03→19:41)
[2018-01-29 04:37] LABS: ARTERIAL BLOOD GAS HCO3 25.7 mmol/L (21-28); ARTERIAL BLOOD GAS HEMOGLOBIN 13.2 g/dL (11.7-17.4); ARTERIAL BLOOD GAS O2 SAT 99.1 % (95-98); ARTERIAL BLOOD GAS PCO2 42 mm/Hg (35-45); ARTERIAL BLOOD GAS PO2 119 mm/Hg (80-100); ARTERIAL BLOOD GAS TCO2 27.3 mmol/L (22-28)
[2018-01-29 06:54] LABS: ALB/GLOB RATIO 0.9 (1.0-2.1); ALBUMIN 2.7 g/dL (3.5-5.0); ALT/SGPT 80 U/L (21-72); AST/SGOT 66 U/L (17-59); BLOOD UREA NITROGEN 31 mg/dL (9-20); CALCIUM 8.2 mg/dl (8.6-10.4); GFR AFRICAN-AMERICAN > 60; GFR NON-AFRICAN AMERICAN > 60
--- NOTE | 2018-01-29 07:55 | PN ---
DATE: 01/27/2018. FOLLOWUP RENAL CONSULTATION LOCATION: Room 5 ICU. REQUESTED BY: Dr. Arash Rose. REASON FOR FOLLOWUP: Hypernatremia, acute renal failure, respiratory failure. HISTORY OF PRESENT ILLNESS: Mr. Latif is a 67 years old elderly obese male with a past medical history significant for longstanding hypertension, diabetes, hyperlipidemia, CVA was found on the bed unresponsive by the family. The patient was brought in with altered mental status and also found to have a witnessed seizure in the emergency room. Subsequently, the patient was intubated for airway protection. The patient remains intubated and the patient is febrile on and off. All the blood cultures are negative. Wound culture is positive for enterococcus faecalis and staph coag negative and sputum culture positive for staph aures. The patient is being treated for hypernatremia with gentle hydration with D5W and free water, serum sodium is slowly improving, today the serum sodium decreased to 145 from 170. The patient is not in distress on vent and try to open eyes with verbal command. PHYSICAL EXAMINATION: VITAL SIGNS: As follows; blood pressure 135/60, pulse 87, respirations 23, temperature 99.9 and saturation is 98%. Height 5 feet 9 inches, weight is 217 pounds and T-max is 103.1. GENERAL: Mr. Latif is a 67 years old elderly male, well-built, well-nourished on ventilator. HEENT: Pupils reactive to light accommodation. Conjunctivae pink. Sclerae anicteric. On ventilator. LUNGS: Symmetric on both sides. Bilateral breath sounds present. Clear on auscultation. Trachea is midline. CVS: [place] at the fifth intercostal space, midclavicular line. S1 and S2 audible. No murmur or gallop. ABDOMEN: Normal in appearance, soft, tympanic. No guarding. No rigidity. Slightly distended, dullness in both flanks present. 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 Sensory system is grossly normal. EXTREMITIES: No cyanosis, no clubbing, no edema. CURRENT MEDICATIONS: Include as follows; acyclovir 750 mg IV piggyback q. 12 hours, hydralazine 50 mg p.o. q. 8 hours, aspirin 81 mg daily, ceftazidime 2 gm IV q. 12 hours, Coreg to 12.5 mg p.o. b.i.d., Crestor 10 mg p.o. at bedtime, DuoNeb inhaler, aspirin 81 mg daily, subcu heparin 5000 q. 8 hours on hold, Lantus 20 units subcu q. 12 hours, Keppra 1000 mg q. 12 hours, Novolin R for sliding scale, Protonix 40 mg p.o. daily, Senokot, Tylenol and Zyvox 600 mg q. 12 hours. LABORATORY DATA: Include as follows as of 01/27/2018; WBC 8, hematocrit is 35.4, platelets 137. ABG pH 7.45, pCO2 36, pO2 80, bicarb is 25.8, saturation 98%. Vent setting, AC 16, tidal volume 500, FIO2 40%, PEEP of 5. Sodium 145, potassium 3.4, chloride 107, CO2 26, BUN 33, creatinine 1.1, glucose 137, calcium 8, phosphorus 3.4, magnesium 2.3, total bili 0.5, AST 98, ALT 98, alkaline phosphatase 124, total protein 6, albumin is 2.8. Hep C antibody is negative. HIV 1 and 2 antibody screen is negative. Influenza A and B antibody is negative. Other reports, chest x-ray as of 01/27/2018; biapical pleural thickening, mild pulmonary venous congestion, increase patchy opacities within the medial right upper lobe, may reflect atelectasis or pneumonia. Intake and output in the last 24 hours, intake is 4248 and output is 14 60. ASSESSMENT: In summary, Mr. Latif is a 67 years old elderly male with history of hypertension, diabetes, hyperlipidemia, cerebrovascular accident with altered mental status and fever and right subclavian vein thrombosis hypernatremia and acute renal failure. 1. Acute renal failure on chronic kidney disease secondary to intravascular depletion. 2. Hypernatremia secondary to osmotic diuresis and Lasix. Serum sodium is nicely improving now decreased from 170 to 145. Continue free water by NG tube 3 to 400 mL q. 4 hours and DC D5W at this time. 3. Fever, source is not clear. Continue IV antibiotics as per Dr. Spaulding, acyclovir, ceftazidime, and Zyvox. 4. Respiratory failure. 5. Acute renal failure on chronic kidney disease. Renal function is slowly improving. 6. Respiratory failure. Continue vent support. PLAN: Rule out anoxic encephalopathy. Overall prognosis is very poor. We will follow with you. Thank you for allowing me to participate in your patient's care. Baldemar Ruiz MD [facility]
--- NOTE | 2018-01-29 07:59 | PN ---
DATE: 01/26/2018 FOLLOWUP RENAL CONSULTATION LOCATION: The patient is located in ICU, bed 5. REQUESTED BY: Arash Rose MD REASON FOR FOLLOWUP: Hypernatremia and acute renal failure. HISTORY OF PRESENT ILLNESS: Mr. Latif is 67 years old elderly male with history of longstanding hypertension, diabetes, CVA, hyperlipidemia who was admitted with altered mental status after the patient was found on his bed by the family. The patient also has witnessed seizure in the emergency room, and subsequently, intubated for airway protection. The patient is febrile on and off for the last few days, and also positive for right subclavian DVT, status post MRI today, no intracranial bleed. The patient remains intubated and not responding to deep painful stimuli. PHYSICAL EXAMINATION: VITAL SIGNS: As follows, blood pressure this evening is 140/57, pulse 62, respirations 18, temperature 99.8, saturation 98%. Height 5 feet 9 inches, weight is 216 pounds. GENERAL: On physical exam, Mr. Latif is 67 years old elderly male, moderately built, moderate nourished, not in distress, on ventilator. HEENT: Pupils normal and reactive to light and accommodation. Conjunctivae pink. Sclerae anicteric. Tongue is moist and trachea is midline. LUNGS: Symmetric on both sides. Bilateral breath sounds present. No crackles. CVS: [place] at the fifth intercostal space, midclavicular line. S1, S2 audible. No murmur or gallop. ABDOMEN: Normal in appearance, slightly protuberant, soft, tympanic. No guarding. No rigidity. No hepatosplenomegaly. 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 MEDICATIONS: His current medications include as follows, acyclovir 750 mg IV q.12 hours, albuterol inhaler, hydralazine 50 mg p.o. q.8 hours, Rocephin, ceftazidime which is Fortaz 2 gm IV q.12 hours, Coreg 12.5 mg p.o. b.i.d., DuoNeb inhaler and subcu heparin 5000 q.8 hours on hold, Humulin insulin, regular for sliding scale 0.2 units per kg per hour, Keppra 1000 mg q.12 hours, Protonix 40 mg daily, Tylenol, and Zyvox 600 mg q.12 hours. LABORATORY DATA: Include as follows, as of 01/26/2018, WBC 10.6, hemoglobin 12.9, hematocrit is 37.8, platelets 122. Sodium 149, potassium 3.7, chloride 111, CO2 of 26, BUN 37, creatinine 1.3, glucose 154, and calcium is 8.3. Total bili 0.4, AST 73, ALT 85, alkaline phos is 104, total protein 6.1, albumin is 2.9, and procalcitonin 0.61. Urinalysis, yellow, hazy, pH 5, specific 1.025, protein 2+, glucose 3+, ketones negative, blood 2+, nitrites negative, bilirubin is negative, urobilinogen 4.0, leukocyte esterase is 2+, wbc 43, rbc 104, bacteria 3 to 6, RPR is negative. Influenza A and B antibodies negative. Group A beta Strep antigen is negative. IMPRESSION: In summary, Mr. Latif is 67 years old elderly male with history of hypertension, diabetes, hyperlipidemia, CVA who was found unresponsive on the bed followed by witnessed seizure, intubated since admission with fever on and off and also positive for a right subclavian deep venous thrombosis with increased BUN and creatinine and increased serum sodium. 1. Hypernatremia. Serum sodium is improving nicely with gentle hydration, D5W and free water by NG tube. 2. Acute renal failure and chronic kidney disease. Renal function is slowly improving. 3. Hypertension. 4. Diabetes. 5. Acute mental status change, etiology is not clear, rule out infections. Continue his IV fluids and D5W at 70 mL/hour and continue free water 400 mL q.4 hours. We will follow with you. Thank you for allowing me to participate in your patient's care Baldemar Ruiz MD
--- NOTE | 2018-01-29 08:00 | PN ---
DATE: 01/28/2018 FOLLOWUP RENAL CONSULTATION LOCATION: The patient is located in ICU, bed 5. REQUESTED BY: Arash Rose MD. REASON FOR FOLLOWUP: Acute renal failure, hypernatremia. HISTORY OF PRESENT ILLNESS: Mr. Latif is a 67 years old elderly male with a history of hypertension, diabetes, hyperlipidemia, CVA who was admitted with acute mental status change and found unresponsive on the bed. The patient was brought to the emergency room and found to have a witnessed seizure, and subsequently, the patient was intubated electively for airway protection. The patient remains intubated, and subsequently, the patient developed osmotic diuresis and hypernatremia, requiring gentle hydration and serum sodium gradually improved. The patient is not in distress, remains intubated, tired to open eyes sometimes to verbal stimuli. PHYSICAL EXAMINATION: VITAL SIGNS: His vital signs as follows, his blood pressure is 171/69, pulse 59, respirations about 24, saturation 99%, and temperature is 98.6. Since yesterday night, T-max is 103.1. Height is 5 feet 9 inches, weight is 244 pounds. GENERAL: On physical exam, Mr. Latif is 67 years old elderly male, well-built, well-nourished, not in distress, on ventilator. HEENT: Pupils normal and reactive to light and accommodation. Conjunctivae pink. Sclerae anicteric, on ventilator. Trachea is midline. LUNGS: Symmetric on both sides. Bilateral breath sounds present. Clear on auscultation. CVS: [place] at the fifth intercostal space, midclavicular line. S1, S2 audible. No murmur or gallop. ABDOMEN: Normal in appearance. Soft, tympanic. No guarding. No rigidity. No hepatosplenomegaly. 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 Try to open eyes sometimes with verbal stimuli. EXTREMITIES: No cyanosis, no clubbing, no edema. MEDICATIONS: His current medications include as follows, hydralazine 75 mg p.o. q.8 hours, aspirin 81 mg daily, ceftazidime 2 gm q.12 hours, Coreg 12.5 mg p.o. b.i.d., Crestor 10 mg at bedtime, DuoNeb inhaler q.6 hours, subcu heparin on hold, Lantus 26 units subcu q.12 hours, Keppra 1000 mg q.12 hours, Novolin R for sliding scale, Protonix 40 mg p.o. daily, Senokot, Tylenol 650 mg q.6 hours p.r.n., Zyvox 600 mg IV q.12 hours. LABORATORY DATA: Include as follows, as of 01/28/2018, WBC 6, hemoglobin 10.4, hematocrit is 30.8, platelets 194. ABG, pH 7.44, pCO2 of 35, pO2 of 106, bicarb is 24.9, saturation 98.9. Vent setting, AC 16, tidal volume 500, FiO2 40%, PEEP of 5. Now, sodium is 138, potassium 4.3, chloride 103, CO2 of 24, BUN 34, creatinine 1.1, glucose is 254, and calcium is 7.8. Chest x-ray as of 01/28/2018,ETT terminates approximately 5.3 cm above the rianna, nasogastric tube extends expected location of the stomach, and mild pulmonary venous congestion versus vascular clouding due to hypoinflation, mild biapical pleural thickening, mild patchy opacities at the lung, right lung apex may reflect infiltrate, atelectasis; decision is somewhat obscured by overlying external artifact, left lower lobe atelectasis or pneumonia. As of 01/26/2018, urine culture, no growth; and as of 01/26/2018, blood culture x1 positive for gram-positive cocci in clusters, Staph aureus, and coag-negative staph, PNA FISH final. IMPRESSION: In summary, Mr. Latif is 67 years old elderly male with hypertension, diabetes, CVA, hyperlipidemia with witnessed seizures, on ventilator since admission with increased BUN and creatinine, and status post hypernatremia with fever, now blood culture positive for gram positive cocci in clusters. 1. Status post acute renal failure, on chronic kidney disease. Renal function improved back to his baseline. 2. Status post hypernatremia. Serum sodium is now within normal limits. We can decrease free water by NG tube 200 mL q.6 hours, and continue NG tube feeding. 3. Respiratory failure. 4. Fever, now blood culture positive for gram positive cocci in clusters. Continue IV antibiotics as per ID recommendations and adjust as per the sensitivity. 4. Rule out pneumonia. 5. Hypertension. Blood pressure is stable. We will follow with you. Thank you for allowing me to participate in your patient's care. Baldemar Ruiz MD [facility]
[2018-01-29 08:11] LABS: BASO % 0.3 % (0.0-2.0); EOS # 0.1 K/uL (0.0-0.7); EOS % 1.2 % (0.0-4.0); HEMOGLOBIN 11.7 g/dL (12.0-18.0); LYMPH # 1.1 K/uL (1.0-4.3); LYMPH % 15.8 % (20.0-40.0); MEAN CELL VOLUME 90.3 fL (80.0-94.0); MEAN CORPUSCULAR HEMOGLOBIN 30.8 pg (27.0-31.0); MEAN CORPUSCULAR HGB CONC 34.1 g/dL (33.0-37.0); MEAN PLATELET VOLUME 11.7 fL (7.2-11.7); MONO # 0.6 K/uL (0.0-0.8); MONO % 8.8 % (0.0-10.0); NEUT % 73.9 % (50.0-75.0); RBC 3.81 Mil/uL (4.40-5.90); WHITE BLOOD COUNT 6.7 K/uL (4.8-10.8)
--- NOTE | 2018-01-29 08:41 | RAD ---
Chest x-ray single frontal view History: Intubated. Comparison: 01/28/2018 Findings: Lines and tubes in stable position. Status post median sternotomy and CABG. Cardiomegaly. Calcification at the aortic knob. Moderate venous congestion. Bibasilar airspace opacities. Elevated right hemidiaphragm. Degenerative changes in the spine. Impression: Lines and tubes in stable position. Status post median sternotomy and CABG. Cardiomegaly. Calcification at the aortic knob. Moderate venous congestion. Bibasilar airspace opacities. Elevated right hemidiaphragm. Degenerative changes in the spine.
[2018-01-29] MEDS: Pantoprazole 40 mg Susp UD PO SCH (09:16)
[2018-01-29] MEDS: (Lantus) Insulin Glargine, Recombinant SC SCH ×2 (09:30→23:06)
[2018-01-29] MEDS: levETIRAcetam 1,000 MG in Sodium Chloride 0.9% 100 ML IVPB SCH ×2 (09:45→21:33)
[2018-01-29] MEDS: Linezolid 600 mg in D5W 300 ml 600 MG/300 ML BAG IVPB SCH ×2 (09:56→22:03)
--- NOTE | 2018-01-29 10:34 | CP.CCUPN ---
<Amaya Castañeda - Last Filed: 01/29/18 14:37> CCU Subjective - Physician Review Subjective (Free Text): 01/29/18 10:32 Patient seen and examined at bedside. Per nursing, no acute events overnight. Patient is intubated on CPAP. Patient is opening his eyes to verbal commands, moving all extremities on command. ROS not obtained. CCU Objective - Vital Signs / Intake & Output Vital Signs (Last 4 hours): Vital Signs Temp Pulse Resp BP Pulse Ox 01/29/18 09:15 110/71 01/29/18 09:07 83 29 H 110/71 98 01/29/18 08:07 73 23 122/61 100 01/29/18 07:07 70 21 146/61 99 01/29/18 07:00 99.8 F H Intake and Output (Last 8hrs): Intake & Output 01/28/18 01/29/18 01/29/18 22:59 06:59 14:59 Intake Total 1800 800 250 Output Total 1685 1180 250 Balance 115 -380 0 Weight 108 kg Intake: Intake, IV Amount 500 100 Left Forearm 500 100 Tube Feeding 400 400 150 Other 900 400 Output: Urine 1685 1180 250 Urethral (Stanley) 1685 1180 250 Other: # Bowel Movements 0 0 0 - Physical Exam Head: Positive for: Atraumatic, Normocephalic Pupils: Positive for: PERRL Conjunctiva: Positive for: Normal Mouth: Positive for: Other (ETT in place ) Neck: Positive for: Normal Range of Motion Respiratory/Chest: Positive for: Clear to Auscultation. Negative for: Respiratory Distress Cardiovascular: Positive for: Regular Rate and Rhythm, Normal S1, S2. Negative for: Tachycardic Abdomen: Positive for: Normal Bowel Sounds, Other (Obese). Negative for: Tenderness, Distention, Peritoneal Signs Lower Extremity: Positive for: Normal Inspection Neurological: Positive for: Other (Moves all extremities) Skin: Positive for: Dry - Medications Active Medications: Active Medications Generic Name Dose Route Start Last Admin Trade Name Freq PRN Reason Stop Dose Admin Acetaminophen 650 mg 01/19/18 00:50 01/27/18 16:05 Tylenol 650mg/20.3ml Solution Ud NG 650 mg Q6 PRN Administration GIVE FOR TEMP. 100*F OR ABOVE Albuterol/Ipratropium 3 ml 01/26/18 20:00 01/29/18 07:37 Duoneb 3 Mg/0.5 Mg (3 Ml) Ud INH 3 ml RQ6 [facility] Administration Aspirin 81 mg 01/17/18 10:00 01/29/18 09:15 Aspirin Chewable PO 81 mg DAILY [facility] Administration Carvedilol 12.5 mg 01/22/18 09:07 01/29/18 09:15 Coreg PO 12.5 mg BID [facility] Administration Heparin Sodium (Porcine) 5,000 units 01/17/18 14:00 01/23/18 15:08 Heparin SC Not Given Q8 [facility] Hydralazine HCl 75 mg 01/28/18 19:27 01/29/18 06:16 Apresoline PO 75 mg Q8 [facility] Administration Levetiracetam 1,000 mg/ Sodium 110 mls @ 440 mls/hr 01/22/18 10:00 01/29/18 09:45 Chloride IVPB 440 mls/hr Q12H [facility] Administration Linezolid 600 mg in 300 mls @ 200 mls/hr 01/26/18 22:00 01/29/18 09:56 Zyvox 600mg/300ml D5w IVPB 200 mls/hr Q12H [facility] Administration Protocol Ceftazidime 2 gm/ Sodium 100 mls @ 100 mls/hr 01/26/18 20:00 01/29/18 08:30 Chloride IV 100 mls/hr Q12H [facility] Administration Protocol Insulin Glargine 26 unit 01/28/18 19:27 01/28/18 21:05 Lantus SC 26 units Q12 [facility] Administration Insulin Human Regular 0 unit 01/29/18 00:00 01/29/18 06:17 Novolin R SC 3 unit Q6 [facility] Administration Protocol Pantoprazole Sodium 40 mg 01/21/18 12:00 01/29/18 09:16 Protonix Susp PO 40 mg 1000 [facility] Administration Rosuvastatin Calcium 10 mg 01/16/18 22:00 01/28/18 21:06 Crestor PO 10 mg HS [facility] Administration Sennosides 8.6 mg 01/17/18 14:00 01/29/18 09:46 Senokot Tab PO Not Given DAILY [facility] - Patient Studies Lab Studies: Microbiology Studies 01/26/18 18:45 S.aureus & Coag-Neg Staph PNA FISH - Final Blood-Venous Blood Culture - Preliminary Gram Positive Cocci Gram Stain - Final 01/26/18 18:45 Blood Culture - Preliminary Blood-Venous Gram Pos Cocci In Clusters Gram Stain - Final Lab Studies 01/29/18 01/29/18 01/29/18 Range/Units 08:00 06:27 06:03 WBC 6.7 (4.8-10.8) K/uL RBC 3.81 L (4.40-5.90) Mil/uL Hgb 11.7 L (12.0-18.0) g/dL Hct 34.4 L (35.0-51.0) % MCV 90.3 (80.0-94.0) fL MCH 30.8 (27.0-31.0) pg MCHC 34.1 (33.0-37.0) g/dL RDW 12.0 (11.5-14.5) % Plt Count 208 (130-400) K/uL MPV 11.7 (7.2-11.7) fL Neut % (Auto) 73.9 (50.0-75.0) % Lymph % (Auto) 15.8 L (20.0-40.0) % [place] % (Auto) 8.8 (0.0-10.0) % Eos % (Auto) 1.2 (0.0-4.0) % Baso % (Auto) 0.3 (0.0-2.0) % Neut # (Auto) 5.0 (1.8-7.0) K/uL Lymph # (Auto) 1.1 (1.0-4.3) K/uL [place] # (Auto) 0.6 (0.0-0.8) K/uL Eos # (Auto) 0.1 (0.0-0.7) K/uL Baso # (Auto) 0.0 (0.0-0.2) K/uL Puncture Site pCO2 (35-45) mm/Hg pO2 (80-100) mm/Hg HCO3 (21-28) mmol/L ABG pH (7.35-7.45) ABG Total CO2 (22-28) mmol/L ABG O2 Saturation (95-98) % ABG Base Excess (-2.0-3.0) mmol/L ABG Hemoglobin (11.7-17.4) g/dL ABG Carboxyhemoglobin (0.5-1.5) % POC ABG HHb (Measured) (0.0-5.0) % ABG Methemoglobin (0.0-3.0) % Jamey Test A-a O2 Difference mm/Hg Respiratory Index Hgb O2 Saturation (95.0-98.0) % Vent Mode FiO2 % Pressure Support CPAP Sodium 139 (132-148) mmol/L Potassium 3.9 (3.6-5.2) mmol/L Chloride 103 (98-107) mmol/L Carbon Dioxide 26 (22-30) mmol/L Anion Gap 14 (10-20) BUN 31 H (9-20) mg/dL Creatinine 1.0 (0.8-1.5) mg/dL Est GFR ( Amer) > 60 Est GFR (Non-Af Amer) > 60 POC Glucose (mg/dL) 244 H (65-110) mg/dL Random Glucose 247 H (75-110) mg/dL Calcium 8.2 L (8.6-10.4) mg/dl Phosphorus 3.6 (2.5-4.5) mg/dL Magnesium 2.4 H (1.6-2.3) mg/dL Total Bilirubin 0.5 (0.2-1.3) mg/dL AST 66 H D (17-59) U/L ALT 80 H (21-72) U/L Alkaline Phosphatase 120 (38-126) U/L Total Protein 5.7 L (6.3-8.3) g/dL Albumin 2.7 L (3.5-5.0) g/dL Globulin 3.0 (2.2-3.9) gm/dL Albumin/Globulin Ratio 0.9 L (1.0-2.1) 01/29/18 01/28/18 01/28/18 Range/Units 04:30 23:48 17:44 WBC (4.8-10.8) K/uL RBC (4.40-5.90) Mil/uL Hgb (12.0-18.0) g/dL Hct (35.0-51.0) % MCV (80.0-94.0) fL MCH (27.0-31.0) pg MCHC (33.0-37.0) g/dL RDW (11.5-14.5) % Plt Count (130-400) K/uL MPV (7.2-11.7) fL Neut % (Auto) (50.0-75.0) % Lymph % (Auto) (20.0-40.0) % [place] % (Auto) (0.0-10.0) % Eos % (Auto) (0.0-4.0) % Baso % (Auto) (0.0-2.0) % Neut # (Auto) (1.8-7.0) K/uL Lymph # (Auto) (1.0-4.3) K/uL [place] # (Auto) (0.0-0.8) K/uL Eos # (Auto) (0.0-0.7) K/uL Baso # (Auto) (0.0-0.2) K/uL Puncture Site Rb pCO2 42 (35-45) mm/Hg pO2 119 H (80-100) mm/Hg HCO3 25.7 (21-28) mmol/L ABG pH 7.40 (7.35-7.45) ABG Total CO2 27.3 (22-28) mmol/L ABG O2 Saturation 99.1 H (95-98) % ABG Base Excess 1.0 (-2.0-3.0) mmol/L ABG Hemoglobin 13.2 (11.7-17.4) g/dL ABG Carboxyhemoglobin 1.6 H (0.5-1.5) % POC ABG HHb (Measured) 0.9 (0.0-5.0) % ABG Methemoglobin 0.7 (0.0-3.0) % Jamey Test Na A-a O2 Difference 114.0 mm/Hg Respiratory Index 1.0 Hgb O2 Saturation 96.8 (95.0-98.0) % Vent Mode Cpap FiO2 40.0 % Pressure Support 15 CPAP 5 Sodium (132-148) mmol/L Potassium (3.6-5.2) mmol/L Chloride (98-107) mmol/L Carbon Dioxide (22-30) mmol/L Anion Gap (10-20) BUN (9-20) mg/dL Creatinine (0.8-1.5) mg/dL Est GFR ( Amer) Est GFR (Non-Af Amer) POC Glucose (mg/dL) 306 H 317 H (65-110) mg/dL Random Glucose (75-110) mg/dL Calcium (8.6-10.4) mg/dl Phosphorus (2.5-4.5) mg/dL Magnesium (1.6-2.3) mg/dL Total Bilirubin (0.2-1.3) mg/dL AST (17-59) U/L ALT (21-72) U/L Alkaline Phosphatase (38-126) U/L Total Protein (6.3-8.3) g/dL Albumin (3.5-5.0) g/dL Globulin (2.2-3.9) gm/dL Albumin/Globulin Ratio (1.0-2.1) /10/07 Range/Units 11:38 WBC (4.8-10.8) K/uL RBC (4.40-5.90) Mil/uL Hgb (12.0-18.0) g/dL Hct (35.0-51.0) % MCV (80.0-94.0) fL MCH (27.0-31.0) pg MCHC (33.0-37.0) g/dL RDW (11.5-14.5) % Plt Count (130-400) K/uL MPV (7.2-11.7) fL Neut % (Auto) (50.0-75.0) % Lymph % (Auto) (20.0-40.0) % [place] % (Auto) (0.0-10.0) % Eos % (Auto) (0.0-4.0) % Baso % (Auto) (0.0-2.0) % Neut # (Auto) (1.8-7.0) K/uL Lymph # (Auto) (1.0-4.3) K/uL [place] # (Auto) (0.0-0.8) K/uL Eos # (Auto) (0.0-0.7) K/uL Baso # (Auto) (0.0-0.2) K/uL Puncture Site pCO2 (35-45) mm/Hg pO2 (80-100) mm/Hg HCO3 (21-28) mmol/L ABG pH (7.35-7.45) ABG Total CO2 (22-28) mmol/L ABG O2 Saturation (95-98) % ABG Base Excess (-2.0-3.0) mmol/L ABG Hemoglobin (11.7-17.4) g/dL ABG Carboxyhemoglobin (0.5-1.5) % POC ABG HHb (Measured) (0.0-5.0) % ABG Methemoglobin (0.0-3.0) % Jamey Test A-a O2 Difference mm/Hg Respiratory Index Hgb O2 Saturation (95.0-98.0) % Vent Mode FiO2 % Pressure Support CPAP Sodium (132-148) mmol/L Potassium (3.6-5.2) mmol/L Chloride (98-107) mmol/L Carbon Dioxide (22-30) mmol/L Anion Gap (10-20) BUN (9-20) mg/dL Creatinine (0.8-1.5) mg/dL Est GFR ( Amer) Est GFR (Non-Af Amer) POC Glucose (mg/dL) 322 H (65-110) mg/dL Random Glucose (75-110) mg/dL Calcium (8.6-10.4) mg/dl Phosphorus (2.5-4.5) mg/dL Magnesium (1.6-2.3) mg/dL Total Bilirubin (0.2-1.3) mg/dL AST (17-59) U/L ALT (21-72) U/L Alkaline Phosphatase (38-126) U/L Total Protein (6.3-8.3) g/dL Albumin (3.5-5.0) g/dL Globulin (2.2-3.9) gm/dL Albumin/Globulin Ratio (1.0-2.1) Laboratory Results - last 24 hr 01/28/18 01/28/18 01/28/18 11:38 17:44 23:48 WBC RBC Hgb Hct MCV MCH MCHC RDW Plt Count MPV Neut % (Auto) Lymph % (Auto) [place] % (Auto) Eos % (Auto) Baso % (Auto) Neut # (Auto) Lymph # (Auto) [place] # (Auto) Eos # (Auto) Baso # (Auto) Puncture Site pCO2 pO2 HCO3 ABG pH ABG Total CO2 ABG O2 Saturation ABG Base Excess ABG Hemoglobin ABG Carboxyhemoglobin POC ABG HHb (Measured) ABG Methemoglobin Jamey Test A-a O2 Difference Respiratory Index Hgb O2 Saturation Vent Mode FiO2 Pressure Support CPAP Sodium Potassium Chloride Carbon Dioxide Anion Gap BUN Creatinine Est GFR ( Amer) Est GFR (Non-Af Amer) POC Glucose (mg/dL) 322 H 317 H 306 H Random Glucose Calcium Phosphorus Magnesium Total Bilirubin AST ALT Alkaline Phosphatase Total Protein Albumin Globulin Albumin/Globulin Ratio 01/29/18 01/29/18 01/29/18 04:30 06:03 06:27 WBC RBC Hgb Hct MCV MCH MCHC RDW Plt Count MPV Neut % (Auto) Lymph % (Auto) [place] % (Auto) Eos % (Auto) Baso % (Auto) Neut # (Auto) Lymph # (Auto) [place] # (Auto) Eos # (Auto) Baso # (Auto) Puncture Site Rb pCO2 42 pO2 119 H HCO3 25.7 ABG pH 7.40 ABG Total CO2 27.3 ABG O2 Saturation 99.1 H ABG Base Excess 1.0 ABG Hemoglobin 13.2 ABG Carboxyhemoglobin 1.6 H POC ABG HHb (Measured) 0.9 ABG Methemoglobin 0.7 Jamey Test Na A-a O2 Difference 114.0 Respiratory Index 1.0 Hgb O2 Saturation 96.8 Vent Mode Cpap FiO2 40.0 Pressure Support 15 CPAP 5 Sodium 139 Potassium 3.9 Chloride 103 Carbon Dioxide 26 Anion Gap 14 BUN 31 H Creatinine 1.0 Est GFR ( Amer) > 60 Est GFR (Non-Af Amer) > 60 POC Glucose (mg/dL) 244 H Random Glucose 247 H Calcium 8.2 L Phosphorus 3.6 Magnesium 2.4 H Total Bilirubin 0.5 AST 66 H D ALT 80 H Alkaline Phosphatase 120 Total Protein 5.7 L Albumin 2.7 L Globulin 3.0 Albumin/Globulin Ratio 0.9 L 01/29/18 08:00 WBC 6.7 RBC 3.81 L Hgb 11.7 L Hct 34.4 L MCV 90.3 MCH 30.8 MCHC 34.1 RDW 12.0 Plt Count 208 MPV 11.7 Neut % (Auto) 73.9 Lymph % (Auto) 15.8 L [place] % (Auto) 8.8 Eos % (Auto) 1.2 Baso % (Auto) 0.3 Neut # (Auto) 5.0 Lymph # (Auto) 1.1 [place] # (Auto) 0.6 Eos # (Auto) 0.1 Baso # (Auto) 0.0 Puncture Site pCO2 pO2 HCO3 ABG pH ABG Total CO2 ABG O2 Saturation ABG Base Excess ABG Hemoglobin ABG Carboxyhemoglobin POC ABG HHb (Measured) ABG Methemoglobin Jamey Test A-a O2 Difference Respiratory Index Hgb O2 Saturation Vent Mode FiO2 Pressure Support CPAP Sodium Potassium Chloride Carbon Dioxide Anion Gap BUN Creatinine Est GFR ( Amer) Est GFR (Non-Af Amer) POC Glucose (mg/dL) Random Glucose Calcium Phosphorus Magnesium Total Bilirubin AST ALT Alkaline Phosphatase Total Protein Albumin Globulin Albumin/Globulin Ratio Fingerstick Blood Sugar Results: 244 Review of Systems - Review of Systems Systems not reviewed;Unavailable: Intubated Assessment/Plan - Assessment and Plan (Free Text) Plan: 67 year old male with a past medical history of type 2 dm, hypertension, cva, s/ p cabg (8yrs ago), hyperlipidemia who was admitted to the ICU after being found unresponsive by daughter. Patient subsequently had a witnessed seizure while in the hospital and was transferred to the ICU for further monitoring Plan: Neurology: New onset Seizures -Patient is currently awake and alert, following commands -Patient tolerating CPAP, will decrease to 12 at this time -Possible extubation this afternoon -EEG showed diffuse slowing is seen, suggestive of a diffuse abnormality of the brain. Some focal slowing was seen, suggestive of a focal abnormality. No seizures noted during the EEG recording. -Repeat CT of head showed no acute abnormalities -Will Continue Keppra 1000 mg Q12H -Neurology on consult, will follow up if plan for possible lumbar puncture -Patient went to have Brain MRI at [facility]. Will f/u with results. Hematology: Electrolyte imbalances -Hgb stable -Continue to monitor labs daily Cardiovascular: Hypertension -Continue Carvedilol 12.5mg PO BID and Hydralazine 75mg PO Q8H -Continue Aspirin 81mg PO daily -Crestor 10mg PO HS Hematology: DVT of Right subclavian vein -Eliquis 10mg BID X 7 days held. Pending MRI results. Renal: Hypernatremia -Sodium has normalized -Will discontinue free water Endocrinology: h/o Diabetes -Hgba1c 9.2 -Lantus 26 units SC HS -SISS for coverage -Continue accuchecks GI: Tube feeding -Continue Glucerna @50 Infectious Disease: Gram positive bacteremia -01/26 Blood cultures grew Gram positive cocci x 2, awaiting finalized result -Patient is on Linezolid 600mg Q12H and Ceftazidine 2gm Q12H -Infectious Disease on consult, will f/u recommendations GI proph - Protonix 40mg PO daily DVT proph - Heparin 5000U sq Q12 (held due to possible LP) <Bill Ulloa - Last Filed: 01/29/18 20:05> CCU Objective - Vital Signs / Intake & Output Vital Signs (Last 4 hours): Vital Signs Pulse Resp BP Pulse Ox 01/29/18 19:07 89 16 168/67 H 97 01/29/18 18:07 81 27 H 128/59 L 97 01/29/18 17:33 134/55 L 01/29/18 17:00 75 29 H 134/55 L 98 01/29/18 16:08 89 35 H 156/76 H 97 Intake and Output (Last 8hrs): Intake & Output 01/29/18 01/29/18 01/29/18 06:59 14:59 22:59 Intake Total 800 1062 Output Total 1180 900 700 Balance -380 162 -700 Weight 238 lb 1.588 oz Intake: Intake, IV Amount 500 Left Forearm 500 Tube Feeding 400 312 Other 400 250 Output: Urine 1180 900 700 Urethral (Stanley) 1180 900 700 Other: # Bowel Movements 0 1 1 - Medications Active Medications: Active Medications Generic Name Dose Route Start Last Admin Trade Name Freq PRN Reason Stop Dose Admin Acetaminophen 650 mg 01/19/18 00:50 01/27/18 16:05 Tylenol 650mg/20.3ml Solution Ud NG 650 mg Q6 PRN Administration GIVE FOR TEMP. 100*F OR ABOVE Albuterol/Ipratropium 3 ml 01/26/18 20:00 01/29/18 19:41 Duoneb 3 Mg/0.5 Mg (3 Ml) Ud INH 3 ml RQ6 [facility] Administration Aspirin 81 mg 01/17/18 10:00 01/29/18 09:15 Aspirin Chewable PO 81 mg DAILY [facility] Administration Carvedilol 12.5 mg 01/22/18 09:07 01/29/18 17:33 Coreg PO Not Given BID [facility] Heparin Sodium (Porcine) 5,000 units 01/17/18 14:00 01/29/18 13:14 Heparin SC 5,000 units Q8 [facility] Administration Hydralazine HCl 75 mg 01/28/18 19:27 01/29/18 13:13 Apresoline PO 75 mg Q8 [facility] Administration Levetiracetam 1,000 mg/ Sodium 110 mls @ 440 mls/hr 01/22/18 10:00 01/29/18 09:45 Chloride IVPB 440 mls/hr Q12H [facility] Administration Linezolid 600 mg in 300 mls @ 200 mls/hr 01/26/18 22:00 01/29/18 09:56 Zyvox 600mg/300ml D5w IVPB 200 mls/hr Q12H [facility] Administration Protocol Ceftazidime 2 gm/ Sodium 100 mls @ 100 mls/hr 01/26/18 20:00 01/29/18 08:30 Chloride IV 100 mls/hr Q12H [facility] Administration Protocol Insulin Glargine 26 unit 01/29/18 22:00 Lantus SC HS [facility] Insulin Human Regular 0 unit 01/29/18 00:00 01/29/18 17:34 Novolin R SC Not Given Q6 [facility] Protocol Pantoprazole Sodium 40 mg 01/21/18 12:00 01/29/18 09:16 Protonix Susp PO 40 mg 1000 [facility] Administration Rosuvastatin Calcium 10 mg 01/16/18 22:00 01/28/18 21:06 Crestor PO 10 mg HS [facility] Administration Sennosides 8.6 mg 01/17/18 14:00 01/29/18 09:46 Senokot Tab PO Not Given DAILY [facility] - Patient Studies Lab Studies: Microbiology Studies 01/26/18 18:45 S.aureus & Coag-Neg Staph PNA FISH - Final Blood-Venous Blood Culture - Preliminary Gram Positive Cocci Gram Stain - Final 01/26/18 18:45 Blood Culture - Preliminary Blood-Venous Gram Pos Cocci In Clusters Gram Stain - Final Lab Studies 01/29/18 01/29/18 01/29/18 Range/Units 11:24 08:00 06:27 WBC 6.7 (4.8-10.8) K/uL RBC 3.81 L (4.40-5.90) Mil/uL Hgb 11.7 L (12.0-18.0) g/dL Hct 34.4 L (35.0-51.0) % MCV 90.3 (80.0-94.0) fL MCH 30.8 (27.0-31.0) pg MCHC 34.1 (33.0-37.0) g/dL RDW 12.0 (11.5-14.5) % Plt Count 208 (130-400) K/uL MPV 11.7 (7.2-11.7) fL Neut % (Auto) 73.9 (50.0-75.0) % Lymph % (Auto) 15.8 L (20.0-40.0) % [place] % (Auto) 8.8 (0.0-10.0) % Eos % (Auto) 1.2 (0.0-4.0) % Baso % (Auto) 0.3 (0.0-2.0) % Neut # (Auto) 5.0 (1.8-7.0) K/uL Lymph # (Auto) 1.1 (1.0-4.3) K/uL [place] # (Auto) 0.6 (0.0-0.8) K/uL Eos # (Auto) 0.1 (0.0-0.7) K/uL Baso # (Auto) 0.0 (0.0-0.2) K/uL Puncture Site pCO2 (35-45) mm/Hg pO2 (80-100) mm/Hg HCO3 (21-28) mmol/L ABG pH (7.35-7.45) ABG Total CO2 (22-28) mmol/L ABG O2 Saturation (95-98) % ABG Base Excess (-2.0-3.0) mmol/L ABG Hemoglobin (11.7-17.4) g/dL ABG Carboxyhemoglobin (0.5-1.5) % POC ABG HHb (Measured) (0.0-5.0) % ABG Methemoglobin (0.0-3.0) % Jamey Test A-a O2 Difference mm/Hg Respiratory Index Hgb O2 Saturation (95.0-98.0) % Vent Mode FiO2 % Pressure Support CPAP Sodium 139 (132-148) mmol/L Potassium 3.9 (3.6-5.2) mmol/L Chloride 103 (98-107) mmol/L Carbon Dioxide 26 (22-30) mmol/L Anion Gap 14 (10-20) BUN 31 H (9-20) mg/dL Creatinine 1.0 (0.8-1.5) mg/dL Est GFR ( Amer) > 60 Est GFR (Non-Af Amer) > 60 POC Glucose (mg/dL) 389 H (65-110) mg/dL Random Glucose 247 H (75-110) mg/dL Calcium 8.2 L (8.6-10.4) mg/dl Phosphorus 3.6 (2.5-4.5) mg/dL Magnesium 2.4 H (1.6-2.3) mg/dL Total Bilirubin 0.5 (0.2-1.3) mg/dL AST 66 H D (17-59) U/L ALT 80 H (21-72) U/L Alkaline Phosphatase 120 (38-126) U/L Total Protein 5.7 L (6.3-8.3) g/dL Albumin 2.7 L (3.5-5.0) g/dL Globulin 3.0 (2.2-3.9) gm/dL Albumin/Globulin Ratio 0.9 L (1.0-2.1) 01/29/18 01/29/18 01/28/18 Range/Units 06:03 04:30 23:48 WBC (4.8-10.8) K/uL RBC (4.40-5.90) Mil/uL Hgb (12.0-18.0) g/dL Hct (35.0-51.0) % MCV (80.0-94.0) fL MCH (27.0-31.0) pg MCHC (33.0-37.0) g/dL RDW (11.5-14.5) % Plt Count (130-400) K/uL MPV (7.2-11.7) fL Neut % (Auto) (50.0-75.0) % Lymph % (Auto) (20.0-40.0) % [place] % (Auto) (0.0-10.0) % Eos % (Auto) (0.0-4.0) % Baso % (Auto) (0.0-2.0) % Neut # (Auto) (1.8-7.0) K/uL Lymph # (Auto) (1.0-4.3) K/uL [place] # (Auto) (0.0-0.8) K/uL Eos # (Auto) (0.0-0.7) K/uL Baso # (Auto) (0.0-0.2) K/uL Puncture Site Rb pCO2 42 (35-45) mm/Hg pO2 119 H (80-100) mm/Hg HCO3 25.7 (21-28) mmol/L ABG pH 7.40 (7.35-7.45) ABG Total CO2 27.3 (22-28) mmol/L ABG O2 Saturation 99.1 H (95-98) % ABG Base Excess 1.0 (-2.0-3.0) mmol/L ABG Hemoglobin 13.2 (11.7-17.4) g/dL ABG Carboxyhemoglobin 1.6 H (0.5-1.5) % POC ABG HHb (Measured) 0.9 (0.0-5.0) % ABG Methemoglobin 0.7 (0.0-3.0) % Jamey Test Na A-a O2 Difference 114.0 mm/Hg Respiratory Index 1.0 Hgb O2 Saturation 96.8 (95.0-98.0) % Vent Mode Cpap FiO2 40.0 % Pressure Support 15 CPAP 5 Sodium (132-148) mmol/L Potassium (3.6-5.2) mmol/L Chloride (98-107) mmol/L Carbon Dioxide (22-30) mmol/L Anion Gap (10-20) BUN (9-20) mg/dL Creatinine (0.8-1.5) mg/dL Est GFR ( Amer) Est GFR (Non-Af Amer) POC Glucose (mg/dL) 244 H 306 H (65-110) mg/dL Random Glucose (75-110) mg/dL Calcium (8.6-10.4) mg/dl Phosphorus (2.5-4.5) mg/dL Magnesium (1.6-2.3) mg/dL Total Bilirubin (0.2-1.3) mg/dL AST (17-59) U/L ALT (21-72) U/L Alkaline Phosphatase (38-126) U/L Total Protein (6.3-8.3) g/dL Albumin (3.5-5.0) g/dL Globulin (2.2-3.9) gm/dL Albumin/Globulin Ratio (1.0-2.1) Laboratory Results - last 24 hr 01/28/18 01/29/18 01/29/18 23:48 04:30 06:03 WBC RBC Hgb Hct MCV MCH MCHC RDW Plt Count MPV Neut % (Auto) Lymph % (Auto) [place] % (Auto) Eos % (Auto) Baso % (Auto) Neut # (Auto) Lymph # (Auto) [place] # (Auto) Eos # (Auto) Baso # (Auto) Puncture Site Rb pCO2 42 pO2 119 H HCO3 25.7 ABG pH 7.40 ABG Total CO2 27.3 ABG O2 Saturation 99.1 H ABG Base Excess 1.0 ABG Hemoglobin 13.2 ABG Carboxyhemoglobin 1.6 H POC ABG HHb (Measured) 0.9 ABG Methemoglobin 0.7 Jamey Test Na A-a O2 Difference 114.0 Respiratory Index 1.0 Hgb O2 Saturation 96.8 Vent Mode Cpap FiO2 40.0 Pressure Support 15 CPAP 5 Sodium Potassium Chloride Carbon Dioxide Anion Gap BUN Creatinine Est GFR ( Amer) Est GFR (Non-Af Amer) POC Glucose (mg/dL) 306 H 244 H Random Glucose Calcium Phosphorus Magnesium Total Bilirubin AST ALT Alkaline Phosphatase Total Protein Albumin Globulin Albumin/Globulin Ratio 01/29/18 01/29/18 01/29/18 06:27 08:00 11:24 WBC 6.7 RBC 3.81 L Hgb 11.7 L Hct 34.4 L MCV 90.3 MCH 30.8 MCHC 34.1 RDW 12.0 Plt Count 208 MPV 11.7 Neut % (Auto) 73.9 Lymph % (Auto) 15.8 L [place] % (Auto) 8.8 Eos % (Auto) 1.2 Baso % (Auto) 0.3 Neut # (Auto) 5.0 Lymph # (Auto) 1.1 [place] # (Auto) 0.6 Eos # (Auto) 0.1 Baso # (Auto) 0.0 Puncture Site pCO2 pO2 HCO3 ABG pH ABG Total CO2 ABG O2 Saturation ABG Base Excess ABG Hemoglobin ABG Carboxyhemoglobin POC ABG HHb (Measured) ABG Methemoglobin Jamey Test A-a O2 Difference Respiratory Index Hgb O2 Saturation Vent Mode FiO2 Pressure Support CPAP Sodium 139 Potassium 3.9 Chloride 103 Carbon Dioxide 26 Anion Gap 14 BUN 31 H Creatinine 1.0 Est GFR ( Amer) > 60 Est GFR (Non-Af Amer) > 60 POC Glucose (mg/dL) 389 H Random Glucose 247 H Calcium 8.2 L Phosphorus 3.6 Magnesium 2.4 H Total Bilirubin 0.5 AST 66 H D ALT 80 H Alkaline Phosphatase 120 Total Protein 5.7 L Albumin 2.7 L Globulin 3.0 Albumin/Globulin Ratio 0.9 L Attending/Attestation - Attestation I have personally seen and examined this patient.: Yes I have fully participated in the care of the patient.: Yes I have reviewed all pertinent clinical information: Yes Notes (Text): 01/29/18 20:05 the patient this morning was awake, responding. CPAP trial is successful. Patient got extubated. He is somewhat restless. Stanley catheter in,, patient has no fever now. Will keep nothing by mouth closely monitor. Swallow evaluation in the morning, family at bedside
--- NOTE | 2018-01-29 11:20 | CP.PCM.PN ---
Subjective - Date & Time of Evaluation Date of Evaluation: 01/29/18 Time of Evaluation: 07:00 - Subjective Subjective: Patient is intubated on CPAP. Patient is opening his eyes to verbal commands, moving all extremities on command. ROS not obtained. blood c/s positive await final ID Objective - Vital Signs/Intake and Output Vital Signs (last 24 hours): Temp Pulse Resp BP Pulse Ox 99.8 F H 79 27 H 125/52 L 99 01/29/18 07:00 01/29/18 10:07 01/29/18 10:07 01/29/18 10:07 01/29/18 10:07 Intake and Output: 01/29/18 01/29/18 06:59 18:59 Intake Total 2000 800 Output Total 1980 250 Balance 20 550 - Medications Medications: Current Medications Acetaminophen (Tylenol 650mg/20.3ml Solution Ud) 650 mg NG Q6 PRN PRN Reason: GIVE FOR TEMP. 100*F OR ABOVE Last Admin: 01/27/18 16:05 Dose: 650 mg Albuterol/Ipratropium (Duoneb 3 Mg/0.5 Mg (3 Ml) Ud) 3 ml INH RQ6 [facility] Last Admin: 01/29/18 07:37 Dose: 3 ml Aspirin (Aspirin Chewable) 81 mg PO DAILY [facility] Last Admin: 01/29/18 09:15 Dose: 81 mg Carvedilol (Coreg) 12.5 mg PO BID [facility] Last Admin: 01/29/18 09:15 Dose: 12.5 mg Heparin Sodium (Porcine) (Heparin) 5,000 units SC Q8 [facility] Last Admin: 01/23/18 15:08 Dose: Not Given Hydralazine HCl (Apresoline) 75 mg PO Q8 [facility] Last Admin: 01/29/18 06:16 Dose: 75 mg Levetiracetam 1,000 mg/ Sodium (Chloride) 110 mls @ 440 mls/hr IVPB Q12H [facility] Last Admin: 01/29/18 09:45 Dose: 440 mls/hr Linezolid (Zyvox 600mg/300ml D5w) 600 mg in 300 mls @ 200 mls/hr IVPB Q12H [facility] PRN Reason: Protocol Last Admin: 01/29/18 09:56 Dose: 200 mls/hr Ceftazidime 2 gm/ Sodium (Chloride) 100 mls @ 100 mls/hr IV Q12H [facility] PRN Reason: Protocol Last Admin: 01/29/18 08:30 Dose: 100 mls/hr Insulin Glargine (Lantus) 26 unit SC HS [facility] Insulin Human Regular (Novolin R) 0 unit SC Q6 [facility] PRN Reason: Protocol Last Admin: 01/29/18 06:17 Dose: 3 unit Pantoprazole Sodium (Protonix Susp) 40 mg PO 1000 [facility] Last Admin: 01/29/18 09:16 Dose: 40 mg Rosuvastatin Calcium (Crestor) 10 mg PO HS [facility] Last Admin: 01/28/18 21:06 Dose: 10 mg Sennosides (Senokot Tab) 8.6 mg PO DAILY [facility] Last Admin: 01/29/18 09:46 Dose: Not Given - Labs Labs: 01/29/18 08:00 01/29/18 06:27 PT 10.6 SECONDS (9.7-12.2) 01/16/18 12:27 INR 0.9 01/16/18 12:27 APTT 33 SECONDS (21-34) 01/16/18 12:27 - Constitutional Appears: Chronically Ill - Head Exam Head Exam: NORMOCEPHALIC - Eye Exam Eye Exam: PERRL. absent: Scleral icterus - ENT Exam ENT Exam: Mucous Membranes Dry - Neck Exam Neck Exam: absent: Lymphadenopathy - Respiratory Exam Respiratory Exam: Decreased Breath Sounds - Cardiovascular Exam Cardiovascular Exam: REGULAR RHYTHM, +S1, +S2 - GI/Abdominal Exam GI & Abdominal Exam: Distended, Soft Assessment and Plan (1) Sepsis Status: Acute (2) Sepsis Status: Acute (3) COPD (chronic obstructive pulmonary disease) Status: Acute (4) Congestive heart failure Status: Acute (5) Diabetes Status: Acute - Assessment and Plan (Free Text) Assessment: cont zyvox/ceftadedime repeat blood c/s
--- NOTE | 2018-01-29 23:03 | CP.PCM.PN ---
Subjective - Date & Time of Evaluation Date of Evaluation: 01/29/18 Time of Evaluation: 17:40 - Subjective Subjective: Pt seen & examined at bedside, pt is more alert, he is extubated, opening eyes spontaneously, non verbal, moves all extremities Objective - Vital Signs/Intake and Output Vital Signs (last 24 hours): Temp Pulse Resp BP Pulse Ox 99.5 F 89 16 168/67 H 97 01/29/18 16:00 01/29/18 19:07 01/29/18 19:07 01/29/18 19:07 01/29/18 19:07 Intake and Output: 01/29/18 01/30/18 18:59 06:59 Intake Total 1062 Output Total 1600 Balance -538 - Medications Medications: Current Medications Acetaminophen (Tylenol 650mg/20.3ml Solution Ud) 650 mg NG Q6 PRN PRN Reason: GIVE FOR TEMP. 100*F OR ABOVE Last Admin: 01/27/18 16:05 Dose: 650 mg Albuterol/Ipratropium (Duoneb 3 Mg/0.5 Mg (3 Ml) Ud) 3 ml INH RQ6 [facility] Last Admin: 01/29/18 19:41 Dose: 3 ml Aspirin (Aspirin Chewable) 81 mg PO DAILY [facility] Last Admin: 01/29/18 09:15 Dose: 81 mg Carvedilol (Coreg) 12.5 mg PO BID [facility] Last Admin: 01/29/18 17:33 Dose: Not Given Heparin Sodium (Porcine) (Heparin) 5,000 units SC Q8 [facility] Last Admin: 01/29/18 21:37 Dose: 5,000 units Hydralazine HCl (Apresoline) 75 mg PO Q8 [facility] Last Admin: 01/29/18 13:13 Dose: 75 mg Levetiracetam 1,000 mg/ Sodium (Chloride) 110 mls @ 440 mls/hr IVPB Q12H [facility] Last Admin: 01/29/18 21:33 Dose: 440 mls/hr Linezolid (Zyvox 600mg/300ml D5w) 600 mg in 300 mls @ 200 mls/hr IVPB Q12H [facility] PRN Reason: Protocol Last Admin: 01/29/18 22:03 Dose: 200 mls/hr Ceftazidime 2 gm/ Sodium (Chloride) 100 mls @ 100 mls/hr IV Q12H [facility] PRN Reason: Protocol Last Admin: 01/29/18 20:23 Dose: 100 mls/hr Insulin Glargine (Lantus) 26 unit SC HS [facility] Insulin Human Regular (Novolin R) 0 unit SC Q6 [facility] PRN Reason: Protocol Last Admin: 01/29/18 17:34 Dose: Not Given Pantoprazole Sodium (Protonix Susp) 40 mg PO 1000 [facility] Last Admin: 01/29/18 09:16 Dose: 40 mg Rosuvastatin Calcium (Crestor) 10 mg PO HS [facility] Last Admin: 01/29/18 22:04 Dose: Not Given Sennosides (Senokot Tab) 8.6 mg PO DAILY [facility] Last Admin: 01/29/18 09:46 Dose: Not Given - Labs Labs: 01/29/18 08:00 01/29/18 06:27 PT 10.6 SECONDS (9.7-12.2) 01/16/18 12:27 INR 0.9 01/16/18 12:27 APTT 33 SECONDS (21-34) 01/16/18 12:27 - Constitutional Appears: Chronically Ill - Head Exam Head Exam: ATRAUMATIC, NORMAL INSPECTION, NORMOCEPHALIC - Respiratory Exam Respiratory Exam: Clear to Ausculation Bilateral, NORMAL BREATHING PATTERN - Cardiovascular Exam Cardiovascular Exam: REGULAR RHYTHM, +S1, +S2. absent: Murmur - GI/Abdominal Exam GI & Abdominal Exam: Soft, Normal Bowel Sounds. absent: Tenderness - Rectal Exam Rectal Exam: Fecal Impaction Assessment and Plan (1) Status epilepticus Status: Acute (2) COPD (chronic obstructive pulmonary disease) Status: Acute (3) Congestive heart failure Status: Acute (4) Diabetes Status: Acute (5) Hypernatremia Status: Acute
[2018-01-30] MEDS ORDERED: Albuterol-Ipratrop 3 mg / 0.5 (3 ml) UD INH STA (00:10)
[2018-01-30] MEDS: (Novolin R) Insulin Human Regular 100 units/ml vial SC SCH ×4 (00:22→18:14)
[2018-01-30] MEDS: Albuterol-Ipratrop 3 mg / 0.5 (3 ml) UD INH SCH ×5 (01:43→19:27)
[2018-01-30 06:22] LABS: BASO % 0.3 % (0.0-2.0); EOS # 0.1 K/uL (0.0-0.7); EOS % 1.8 % (0.0-4.0); HEMOGLOBIN 12.6 g/dL (12.0-18.0); LYMPH # 1.4 K/uL (1.0-4.3); LYMPH % 22.6 % (20.0-40.0); MEAN CORPUSCULAR HEMOGLOBIN 30.8 pg (27.0-31.0); MEAN CORPUSCULAR HGB CONC 34.2 g/dL (33.0-37.0); MEAN PLATELET VOLUME 11.2 fL (7.2-11.7); MONO # 0.6 K/uL (0.0-0.8); MONO % 9.2 % (0.0-10.0); NEUT # 4.1 K/uL (1.8-7.0); NEUT % 66.1 % (50.0-75.0); NRBC % 0.1 % (0.0-2.0); RBC 4.1 Mil/uL (4.40-5.90); WHITE BLOOD COUNT 6.3 K/uL (4.8-10.8)
[2018-01-30 06:50] LABS: ALB/GLOB RATIO 0.9 (1.0-2.1); ALBUMIN 3.1 g/dL (3.5-5.0); ALT/SGPT 104 U/L (21-72); AST/SGOT 94 U/L (17-59); BLOOD UREA NITROGEN 23 mg/dL (9-20); CALCIUM 8.7 mg/dl (8.6-10.4); GFR AFRICAN-AMERICAN > 60; GFR NON-AFRICAN AMERICAN > 60
--- NOTE | 2018-01-30 08:26 | RAD ---
HISTORY: post extubation COMPARISON: 01/29/2018 FINDINGS: LUNGS: No active pulmonary disease. PLEURA: Nonspecific elevation of right hemidiaphragm. No evidence of pleural effusion or pneumothorax. CARDIOVASCULAR: Status post CABG. Status post removal of endotracheal tube. OSSEOUS STRUCTURES: No significant abnormalities. VISUALIZED UPPER ABDOMEN: Normal. OTHER FINDINGS: None. IMPRESSION: Removal of endotracheal tube.
--- NOTE | 2018-01-30 10:26 | CP.CCUPN ---
<Amaya Castañeda - Last Filed: 01/30/18 10:43> CCU Subjective - Physician Review Subjective (Free Text): 01/30/18 10:25 Patient seen and examined at bedside. Patient was extubated yesterday afternoon. Patient tachypneic last night, was started on Solumedrol. Also with elevated BPs so was given Hydralazine IVP. Currently still tachypneic, saturating well on NC. Patient offers no complaints at this time. CCU Objective - Vital Signs / Intake & Output Vital Signs (Last 4 hours): Vital Signs Pulse 01/30/18 10:01 92 H Intake and Output (Last 8hrs): Intake & Output 01/29/18 01/30/18 01/30/18 22:59 06:59 14:59 Intake Total 500 Output Total 1520 1840 180 Balance -1020 -1840 -180 Weight 102.1 kg Intake: Intake, IV Amount 500 Left Forearm 500 Output: Urine 1520 1840 180 Urethral (Stanley) 1520 1840 180 Other: # Bowel Movements 0 0 0 - Physical Exam Head: Positive for: Atraumatic, Normocephalic Pupils: Positive for: PERRL Conjunctiva: Positive for: Normal Mouth: Positive for: Moist Mucous Membranes Neck: Positive for: Normal Range of Motion Respiratory/Chest: Positive for: Clear to Auscultation, Tachypneic. Negative for: Respiratory Distress Cardiovascular: Positive for: Regular Rate and Rhythm, Normal S1, S2. Negative for: Tachycardic Abdomen: Positive for: Normal Bowel Sounds, Other (Obese). Negative for: Tenderness, Distention, Peritoneal Signs Lower Extremity: Positive for: Normal Inspection Neurological: Positive for: Other (Moves all extremities) Skin: Positive for: Warm, Dry Psychiatric: Positive for: Alert - Medications Active Medications: Active Medications Generic Name Dose Route Start Last Admin Trade Name Freq PRN Reason Stop Dose Admin Acetaminophen 650 mg 01/19/18 00:50 01/27/18 16:05 Tylenol 650mg/20.3ml Solution Ud NG 650 mg Q6 PRN Administration GIVE FOR TEMP. 100*F OR ABOVE Albuterol/Ipratropium 3 ml 01/26/18 20:00 01/30/18 07:42 Duoneb 3 Mg/0.5 Mg (3 Ml) Ud INH 3 ml RQ6 [facility] Administration Aspirin 81 mg 01/17/18 10:00 01/29/18 09:15 Aspirin Chewable PO 81 mg DAILY [facility] Administration Carvedilol 12.5 mg 01/22/18 09:07 01/29/18 17:33 Coreg PO Not Given BID [facility] Heparin Sodium (Porcine) 5,000 units 01/17/18 14:00 01/30/18 06:57 Heparin SC 5,000 units Q8 [facility] Administration Hydralazine HCl 75 mg 01/28/18 19:27 01/30/18 06:40 Apresoline PO Not Given Q8 [facility] Levetiracetam 1,000 mg/ Sodium 110 mls @ 440 mls/hr 01/22/18 10:00 01/29/18 21:33 Chloride IVPB 440 mls/hr Q12H [facility] Administration Linezolid 600 mg in 300 mls @ 200 mls/hr 01/26/18 22:00 01/29/18 22:03 Zyvox 600mg/300ml D5w IVPB 200 mls/hr Q12H [facility] Administration Protocol Ceftazidime 2 gm/ Sodium 100 mls @ 100 mls/hr 01/26/18 20:00 01/30/18 08:23 Chloride IV 100 mls/hr Q12H [facility] Administration Protocol Insulin Glargine 26 unit 01/29/18 22:00 01/29/18 23:06 Lantus SC Not Given HS [facility] Insulin Human Regular 0 unit 01/29/18 00:00 01/30/18 06:57 Novolin R SC 4 unit Q6 [facility] Administration Protocol Methylprednisolone 60 mg 01/30/18 06:45 01/30/18 06:59 Solu-Medrol IV 01/31/18 06:45 60 mg Q8H [facility] Administration Pantoprazole Sodium 40 mg 01/21/18 12:00 01/29/18 09:16 Protonix Susp PO 40 mg 1000 [facility] Administration - Patient Studies Lab Studies: Microbiology Studies 01/26/18 18:45 S.aureus & Coag-Neg Staph PNA FISH - Final Blood-Venous Blood Culture - Final Coagulase Neg Staphylococcus Gram Stain - Final Lab Studies 01/30/18 01/30/18 01/30/18 Range/Units 06:21 06:17 06:17 WBC 6.3 (4.8-10.8) K/uL RBC 4.10 L (4.40-5.90) Mil/uL Hgb 12.6 (12.0-18.0) g/dL Hct 36.9 (35.0-51.0) % MCV 90.0 (80.0-94.0) fL MCH 30.8 (27.0-31.0) pg MCHC 34.2 (33.0-37.0) g/dL RDW 12.0 (11.5-14.5) % Plt Count 270 (130-400) K/uL MPV 11.2 (7.2-11.7) fL Neut % (Auto) 66.1 (50.0-75.0) % Lymph % (Auto) 22.6 (20.0-40.0) % Edwards % (Auto) 9.2 (0.0-10.0) % Eos % (Auto) 1.8 (0.0-4.0) % Baso % (Auto) 0.3 (0.0-2.0) % Neut # (Auto) 4.1 (1.8-7.0) K/uL Lymph # (Auto) 1.4 (1.0-4.3) K/uL Edwards # (Auto) 0.6 (0.0-0.8) K/uL Eos # (Auto) 0.1 (0.0-0.7) K/uL Baso # (Auto) 0.0 (0.0-0.2) K/uL Sodium 142 (132-148) mmol/L Potassium 4.1 (3.6-5.2) mmol/L Chloride 105 (98-107) mmol/L Carbon Dioxide 28 (22-30) mmol/L Anion Gap 13 (10-20) BUN 23 H (9-20) mg/dL Creatinine 0.9 (0.8-1.5) mg/dL Est GFR ( Amer) > 60 Est GFR (Non-Af Amer) > 60 POC Glucose (mg/dL) 291 H (65-110) mg/dL Random Glucose 248 H (75-110) mg/dL Calcium 8.7 (8.6-10.4) mg/dl Phosphorus 3.4 (2.5-4.5) mg/dL Magnesium 2.3 (1.6-2.3) mg/dL Total Bilirubin 0.7 (0.2-1.3) mg/dL AST 94 H D (17-59) U/L ALT 104 H D (21-72) U/L Alkaline Phosphatase 127 H (38-126) U/L Total Protein 6.4 (6.3-8.3) g/dL Albumin 3.1 L (3.5-5.0) g/dL Globulin 3.3 (2.2-3.9) gm/dL Albumin/Globulin Ratio 0.9 L (1.0-2.1) 01/30/18 01/29/18 01/29/18 Range/Units 00:04 17:20 11:24 WBC (4.8-10.8) K/uL RBC (4.40-5.90) Mil/uL Hgb (12.0-18.0) g/dL Hct (35.0-51.0) % MCV (80.0-94.0) fL MCH (27.0-31.0) pg MCHC (33.0-37.0) g/dL RDW (11.5-14.5) % Plt Count (130-400) K/uL MPV (7.2-11.7) fL Neut % (Auto) (50.0-75.0) % Lymph % (Auto) (20.0-40.0) % Edwards % (Auto) (0.0-10.0) % Eos % (Auto) (0.0-4.0) % Baso % (Auto) (0.0-2.0) % Neut # (Auto) (1.8-7.0) K/uL Lymph # (Auto) (1.0-4.3) K/uL Edwards # (Auto) (0.0-0.8) K/uL Eos # (Auto) (0.0-0.7) K/uL Baso # (Auto) (0.0-0.2) K/uL Sodium (132-148) mmol/L Potassium (3.6-5.2) mmol/L Chloride (98-107) mmol/L Carbon Dioxide (22-30) mmol/L Anion Gap (10-20) BUN (9-20) mg/dL Creatinine (0.8-1.5) mg/dL Est GFR ( Amer) Est GFR (Non-Af Amer) POC Glucose (mg/dL) 250 H 213 H 389 H (65-110) mg/dL Random Glucose (75-110) mg/dL Calcium (8.6-10.4) mg/dl Phosphorus (2.5-4.5) mg/dL Magnesium (1.6-2.3) mg/dL Total Bilirubin (0.2-1.3) mg/dL AST (17-59) U/L ALT (21-72) U/L Alkaline Phosphatase (38-126) U/L Total Protein (6.3-8.3) g/dL Albumin (3.5-5.0) g/dL Globulin (2.2-3.9) gm/dL Albumin/Globulin Ratio (1.0-2.1) Laboratory Results - last 24 hr 01/29/18 01/29/18 01/30/18 11:24 17:20 00:04 WBC RBC Hgb Hct MCV MCH MCHC RDW Plt Count MPV Neut % (Auto) Lymph % (Auto) Edwards % (Auto) Eos % (Auto) Baso % (Auto) Neut # (Auto) Lymph # (Auto) Edwards # (Auto) Eos # (Auto) Baso # (Auto) Sodium Potassium Chloride Carbon Dioxide Anion Gap BUN Creatinine Est GFR ( Amer) Est GFR (Non-Af Amer) POC Glucose (mg/dL) 389 H 213 H 250 H Random Glucose Calcium Phosphorus Magnesium Total Bilirubin AST ALT Alkaline Phosphatase Total Protein Albumin Globulin Albumin/Globulin Ratio 01/30/18 01/30/18 01/30/18 06:17 06:17 06:21 WBC 6.3 RBC 4.10 L Hgb 12.6 Hct 36.9 MCV 90.0 MCH 30.8 MCHC 34.2 RDW 12.0 Plt Count 270 MPV 11.2 Neut % (Auto) 66.1 Lymph % (Auto) 22.6 Edwards % (Auto) 9.2 Eos % (Auto) 1.8 Baso % (Auto) 0.3 Neut # (Auto) 4.1 Lymph # (Auto) 1.4 Edwards # (Auto) 0.6 Eos # (Auto) 0.1 Baso # (Auto) 0.0 Sodium 142 Potassium 4.1 Chloride 105 Carbon Dioxide 28 Anion Gap 13 BUN 23 H Creatinine 0.9 Est GFR ( Amer) > 60 Est GFR (Non-Af Amer) > 60 POC Glucose (mg/dL) 291 H Random Glucose 248 H Calcium 8.7 Phosphorus 3.4 Magnesium 2.3 Total Bilirubin 0.7 AST 94 H D ALT 104 H D Alkaline Phosphatase 127 H Total Protein 6.4 Albumin 3.1 L Globulin 3.3 Albumin/Globulin Ratio 0.9 L Fingerstick Blood Sugar Results: 291 Assessment/Plan - Assessment and Plan (Free Text) Assessment: 67 year old male with a past medical history of type 2 dm, hypertension, cva, s/ p cabg (8yrs ago), hyperlipidemia who was admitted to the ICU after being found unresponsive by daughter. Patient subsequently had a witnessed seizure while in the hospital and was transferred to the ICU for further monitoring Plan: Neurology: New onset Seizures -Patient is currently awake and alert, following commands -Extubated yesterday afternoon -Swallow evaluation and PT eval ordered -EEG showed diffuse slowing is seen, suggestive of a diffuse abnormality of the brain. Some focal slowing was seen, suggestive of a focal abnormality. No seizures noted during the EEG recording. -Repeat CT of head showed no acute abnormalities -Will Continue Keppra 1000 mg Q12H -Neurology on consult, Dr Perez, help appreciated -After discussion with Neurology, no plan for LP at this time, patient is neurologically improving Hematology: Electrolyte imbalances -Hgb stable -Continue to monitor labs daily Cardiovascular: Hypertension -Continue Carvedilol 12.5mg PO BID and Hydralazine 75mg PO Q8H -Continue Aspirin 81mg PO daily -Will discontinue Crestor at this time due to elevated LFTs Respiratory -Patient extubated yesterday, currently tachypneic on 4L NC -Continue Duonebs Q6H -Continue Solumedrol 60mg Q8H IVP -CXR showing non-specific elevation of right hemidiaphragm -Stat ABG ordered -Bipap ordered Hematology: DVT of Right subclavian vein -Heparin 5000 units Q8H SC Renal: Hypernatremia -Sodium has normalized -Nephrology on consult, help appreciated Endocrinology: h/o Diabetes -Hgba1c 9.2 -Lantus 26 units SC HS -High dose ISS for coverage -Continue accuchecks -Hypoglycemia protocol GI: -Swallow evaluation ordered -AST/ALT: 94/104 -Crestor discontinued, Will continue to monitor -Sennakot discontinued Infectious Disease: Gram positive bacteremia -01/26 Blood cultures grew Gram positive cocci x 2, awaiting finalized result -Patient is on Linezolid 600mg Q12H and Ceftazidine 2gm Q12H -Infectious Disease on consult, will f/u recommendations GI proph - Protonix 40mg PO daily DVT proph - Heparin 5000U sq Q8 <Ford Mims - Last Filed: 01/30/18 17:21> CCU Objective - Vital Signs / Intake & Output Vital Signs (Last 4 hours): Vital Signs Temp Pulse Resp BP Pulse Ox 01/30/18 16:07 89 18 120/69 100 01/30/18 16:00 98.9 F 01/30/18 15:50 77 01/30/18 15:18 85 13 116/65 100 01/30/18 14:23 92 H 27 H 134/66 100 01/30/18 14:07 93 H 27 H 100 01/30/18 13:33 91 H Intake and Output (Last 8hrs): Intake & Output 01/30/18 01/30/18 01/30/18 06:59 14:59 22:59 Intake Total 500 20 Output Total 1840 705 Balance -1840 -205 20 Weight 225 lb 1.471 oz Intake: Intake, IV Amount 500 Left Hand 500 Tube Feeding 20 Output: Urine 1840 705 Urethral (Stanley) 1840 705 Other: # Bowel Movements 0 0 - Medications Active Medications: Active Medications Generic Name Dose Route Start Last Admin Trade Name Freq PRN Reason Stop Dose Admin Acetaminophen 650 mg 01/19/18 00:50 01/27/18 16:05 Tylenol 650mg/20.3ml Solution Ud NG 650 mg Q6 PRN Administration GIVE FOR TEMP. 100*F OR ABOVE Albuterol/Ipratropium 3 ml 01/26/18 20:00 01/30/18 13:33 Duoneb 3 Mg/0.5 Mg (3 Ml) Ud INH 3 ml RQ6 [facility] Administration Aspirin 81 mg 01/17/18 10:00 01/30/18 13:10 Aspirin Chewable PO 81 mg DAILY [facility] Administration Carvedilol 12.5 mg 01/22/18 09:07 01/30/18 13:10 Coreg PO 12.5 mg BID [facility] Administration Dextrose 0 ml 01/30/18 10:39 Dextrose 50% Inj IV STAT PRN Hypoglycemia Protocol Protocol Dextrose 0 gm 01/30/18 10:39 Glutose 15 PO ONCE PRN Hypoglycemia Protocol Protocol Glucagon 0 mg 01/30/18 10:39 Glucagen Diagnostic Kit IM STAT PRN Hypoglycemia Protocol Protocol Heparin Sodium (Porcine) 5,000 units 01/17/18 14:00 01/30/18 14:26 Heparin SC 5,000 units Q8 [facility] Administration Hydralazine HCl 75 mg 01/28/18 19:27 01/30/18 14:26 Apresoline PO 75 mg Q8 [facility] Administration Levetiracetam 1,000 mg/ Sodium 110 mls @ 440 mls/hr 01/22/18 10:00 01/30/18 10:45 Chloride IVPB 440 mls/hr Q12H [facility] Administration Linezolid 600 mg in 300 mls @ 200 mls/hr 01/26/18 22:00 01/30/18 10:46 Zyvox 600mg/300ml D5w IVPB 200 mls/hr Q12H [facility] Administration Protocol Ceftazidime 2 gm/ Sodium 100 mls @ 100 mls/hr 01/26/18 20:00 01/30/18 08:23 Chloride IV 100 mls/hr Q12H [facility] Administration Protocol Dextrose 1,000 mls @ 0 mls/hr 01/30/18 10:39 Dextrose 5% In Water 1000 Ml IV .Q0M PRN Hypoglycemia Protocol Protocol Per Protocol Insulin Glargine 26 unit 01/29/18 22:00 01/29/18 23:06 Lantus SC Not Given HS [facility] Insulin Human Regular 0 unit 01/30/18 12:00 01/30/18 13:06 Novolin R SC 4 unit Q6 [facility] Administration Protocol Methylprednisolone 60 mg 01/30/18 06:45 01/30/18 15:39 Solu-Medrol IV 01/31/18 06:45 60 mg Q8H [facility] Administration Pantoprazole Sodium 40 mg 01/21/18 12:00 01/30/18 13:09 Protonix Susp PO 40 mg 1000 [facility] Administration - Patient Studies Lab Studies: Microbiology Studies 01/28/18 11:36 Ova and Parasite Concentrate Exam - Final Stool 01/26/18 18:45 S.aureus & Coag-Neg Staph PNA FISH - Final Blood-Venous Blood Culture - Final Coagulase Neg Staphylococcus Gram Stain - Final Lab Studies 01/30/18 01/30/18 01/30/18 Range/Units 11:36 10:49 06:21 WBC (4.8-10.8) K/uL RBC (4.40-5.90) Mil/uL Hgb (12.0-18.0) g/dL Hct (35.0-51.0) % MCV (80.0-94.0) fL MCH (27.0-31.0) pg MCHC (33.0-37.0) g/dL RDW (11.5-14.5) % Plt Count (130-400) K/uL MPV (7.2-11.7) fL Neut % (Auto) (50.0-75.0) % Lymph % (Auto) (20.0-40.0) % Edwards % (Auto) (0.0-10.0) % Eos % (Auto) (0.0-4.0) % Baso % (Auto) (0.0-2.0) % Neut # (Auto) (1.8-7.0) K/uL Lymph # (Auto) (1.0-4.3) K/uL Edwards # (Auto) (0.0-0.8) K/uL Eos # (Auto) (0.0-0.7) K/uL Baso # (Auto) (0.0-0.2) K/uL Puncture Site Rba pCO2 42 (35-45) mm/Hg pO2 142 H (80-100) mm/Hg HCO3 26.8 (21-28) mmol/L ABG pH 7.42 (7.35-7.45) ABG Total CO2 28.5 H (22-28) mmol/L ABG O2 Saturation 99.4 H (95-98) % ABG Base Excess 2.4 (-2.0-3.0) mmol/L ABG Hemoglobin 12.0 (11.7-17.4) g/dL ABG Carboxyhemoglobin 1.7 H (0.5-1.5) % POC ABG HHb (Measured) 0.6 (0.0-5.0) % ABG Methemoglobin 1.0 (0.0-3.0) % Jamey Test Na A-a O2 Difference 162.0 mm/Hg Respiratory Index 1.1 Hgb O2 Saturation 96.7 (95.0-98.0) % Vent Mode Bipap FiO2 50.0 % Inspiratory BiPAP 12 Expiratory BiPAP 6 Sodium (132-148) mmol/L Potassium (3.6-5.2) mmol/L Chloride (98-107) mmol/L Carbon Dioxide (22-30) mmol/L Anion Gap (10-20) BUN (9-20) mg/dL Creatinine (0.8-1.5) mg/dL Est GFR ( Amer) Est GFR (Non-Af Amer) POC Glucose (mg/dL) 209 H 291 H (65-110) mg/dL Random Glucose (75-110) mg/dL Calcium (8.6-10.4) mg/dl Phosphorus (2.5-4.5) mg/dL Magnesium (1.6-2.3) mg/dL Total Bilirubin (0.2-1.3) mg/dL AST (17-59) U/L ALT (21-72) U/L Alkaline Phosphatase (38-126) U/L Total Protein (6.3-8.3) g/dL Albumin (3.5-5.0) g/dL Globulin (2.2-3.9) gm/dL Albumin/Globulin Ratio (1.0-2.1) West Nile Virus IgG Ab West Nile Virus IgM Ab 01/30/18 01/30/18 01/30/18 Range/Units 06:17 06:17 00:04 WBC 6.3 (4.8-10.8) K/uL RBC 4.10 L (4.40-5.90) Mil/uL Hgb 12.6 (12.0-18.0) g/dL Hct 36.9 (35.0-51.0) % MCV 90.0 (80.0-94.0) fL MCH 30.8 (27.0-31.0) pg MCHC 34.2 (33.0-37.0) g/dL RDW 12.0 (11.5-14.5) % Plt Count 270 (130-400) K/uL MPV 11.2 (7.2-11.7) fL Neut % (Auto) 66.1 (50.0-75.0) % Lymph % (Auto) 22.6 (20.0-40.0) % Edwards % (Auto) 9.2 (0.0-10.0) % Eos % (Auto) 1.8 (0.0-4.0) % Baso % (Auto) 0.3 (0.0-2.0) % Neut # (Auto) 4.1 (1.8-7.0) K/uL Lymph # (Auto) 1.4 (1.0-4.3) K/uL Edwards # (Auto) 0.6 (0.0-0.8) K/uL Eos # (Auto) 0.1 (0.0-0.7) K/uL Baso # (Auto) 0.0 (0.0-0.2) K/uL Puncture Site pCO2 (35-45) mm/Hg pO2 (80-100) mm/Hg HCO3 (21-28) mmol/L ABG pH (7.35-7.45) ABG Total CO2 (22-28) mmol/L ABG O2 Saturation (95-98) % ABG Base Excess (-2.0-3.0) mmol/L ABG Hemoglobin (11.7-17.4) g/dL ABG Carboxyhemoglobin (0.5-1.5) % POC ABG HHb (Measured) (0.0-5.0) % ABG Methemoglobin (0.0-3.0) % Jamey Test A-a O2 Difference mm/Hg Respiratory Index Hgb O2 Saturation (95.0-98.0) % Vent Mode FiO2 % Inspiratory BiPAP Expiratory BiPAP Sodium 142 (132-148) mmol/L Potassium 4.1 (3.6-5.2) mmol/L Chloride 105 (98-107) mmol/L Carbon Dioxide 28 (22-30) mmol/L Anion Gap 13 (10-20) BUN 23 H (9-20) mg/dL Creatinine 0.9 (0.8-1.5) mg/dL Est GFR ( Amer) > 60 Est GFR (Non-Af Amer) > 60 POC Glucose (mg/dL) 250 H (65-110) mg/dL Random Glucose 248 H (75-110) mg/dL Calcium 8.7 (8.6-10.4) mg/dl Phosphorus 3.4 (2.5-4.5) mg/dL Magnesium 2.3 (1.6-2.3) mg/dL Total Bilirubin 0.7 (0.2-1.3) mg/dL AST 94 H D (17-59) U/L ALT 104 H D (21-72) U/L Alkaline Phosphatase 127 H (38-126) U/L Total Protein 6.4 (6.3-8.3) g/dL Albumin 3.1 L (3.5-5.0) g/dL Globulin 3.3 (2.2-3.9) gm/dL Albumin/Globulin Ratio 0.9 L (1.0-2.1) West Nile Virus IgG Ab West Nile Virus IgM Ab 01/29/18 01/26/18 Range/Units 17:20 18:26 WBC (4.8-10.8) K/uL RBC (4.40-5.90) Mil/uL Hgb (12.0-18.0) g/dL Hct (35.0-51.0) % MCV (80.0-94.0) fL MCH (27.0-31.0) pg MCHC (33.0-37.0) g/dL RDW (11.5-14.5) % Plt Count (130-400) K/uL MPV (7.2-11.7) fL Neut % (Auto) (50.0-75.0) % Lymph % (Auto) (20.0-40.0) % Edwards % (Auto) (0.0-10.0) % Eos % (Auto) (0.0-4.0) % Baso % (Auto) (0.0-2.0) % Neut # (Auto) (1.8-7.0) K/uL Lymph # (Auto) (1.0-4.3) K/uL Edwards # (Auto) (0.0-0.8) K/uL Eos # (Auto) (0.0-0.7) K/uL Baso # (Auto) (0.0-0.2) K/uL Puncture Site pCO2 (35-45) mm/Hg pO2 (80-100) mm/Hg HCO3 (21-28) mmol/L ABG pH (7.35-7.45) ABG Total CO2 (22-28) mmol/L ABG O2 Saturation (95-98) % ABG Base Excess (-2.0-3.0) mmol/L ABG Hemoglobin (11.7-17.4) g/dL ABG Carboxyhemoglobin (0.5-1.5) % POC ABG HHb (Measured) (0.0-5.0) % ABG Methemoglobin (0.0-3.0) % Jamey Test A-a O2 Difference mm/Hg Respiratory Index Hgb O2 Saturation (95.0-98.0) % Vent Mode FiO2 % Inspiratory BiPAP Expiratory BiPAP Sodium (132-148) mmol/L Potassium (3.6-5.2) mmol/L Chloride (98-107) mmol/L Carbon Dioxide (22-30) mmol/L Anion Gap (10-20) BUN (9-20) mg/dL Creatinine (0.8-1.5) mg/dL Est GFR ( Amer) Est GFR (Non-Af Amer) POC Glucose (mg/dL) 213 H (65-110) mg/dL Random Glucose (75-110) mg/dL Calcium (8.6-10.4) mg/dl Phosphorus (2.5-4.5) mg/dL Magnesium (1.6-2.3) mg/dL Total Bilirubin (0.2-1.3) mg/dL AST (17-59) U/L ALT (21-72) U/L Alkaline Phosphatase (38-126) U/L Total Protein (6.3-8.3) g/dL Albumin (3.5-5.0) g/dL Globulin (2.2-3.9) gm/dL Albumin/Globulin Ratio (1.0-2.1) West Nile Virus IgG Ab 4.84 H West Nile Virus IgM Ab 0.06 Laboratory Results - last 24 hr 01/26/18 01/29/18 01/30/18 18:26 17:20 00:04 WBC RBC Hgb Hct MCV MCH MCHC RDW Plt Count MPV Neut % (Auto) Lymph % (Auto) Edwards % (Auto) Eos % (Auto) Baso % (Auto) Neut # (Auto) Lymph # (Auto) Edwards # (Auto) Eos # (Auto) Baso # (Auto) Puncture Site pCO2 pO2 HCO3 ABG pH ABG Total CO2 ABG O2 Saturation ABG Base Excess ABG Hemoglobin ABG Carboxyhemoglobin POC ABG HHb (Measured) ABG Methemoglobin Jamey Test A-a O2 Difference Respiratory Index Hgb O2 Saturation Vent Mode FiO2 Inspiratory BiPAP Expiratory BiPAP Sodium Potassium Chloride Carbon Dioxide Anion Gap BUN Creatinine Est GFR ( Amer) Est GFR (Non-Af Amer) POC Glucose (mg/dL) 213 H 250 H Random Glucose Calcium Phosphorus Magnesium Total Bilirubin AST ALT Alkaline Phosphatase Total Protein Albumin Globulin Albumin/Globulin Ratio West Nile Virus IgG Ab 4.84 H West Nile Virus IgM Ab 0.06 01/30/18 01/30/18 01/30/18 06:17 06:17 06:21 WBC 6.3 RBC 4.10 L Hgb 12.6 Hct 36.9 MCV 90.0 MCH 30.8 MCHC 34.2 RDW 12.0 Plt Count 270 MPV 11.2 Neut % (Auto) 66.1 Lymph % (Auto) 22.6 Edwards % (Auto) 9.2 Eos % (Auto) 1.8 Baso % (Auto) 0.3 Neut # (Auto) 4.1 Lymph # (Auto) 1.4 Edwards # (Auto) 0.6 Eos # (Auto) 0.1 Baso # (Auto) 0.0 Puncture Site pCO2 pO2 HCO3 ABG pH ABG Total CO2 ABG O2 Saturation ABG Base Excess ABG Hemoglobin ABG Carboxyhemoglobin POC ABG HHb (Measured) ABG Methemoglobin Jamey Test A-a O2 Difference Respiratory Index Hgb O2 Saturation Vent Mode FiO2 Inspiratory BiPAP Expiratory BiPAP Sodium 142 Potassium 4.1 Chloride 105 Carbon Dioxide 28 Anion Gap 13 BUN 23 H Creatinine 0.9 Est GFR ( Amer) > 60 Est GFR (Non-Af Amer) > 60 POC Glucose (mg/dL) 291 H Random Glucose 248 H Calcium 8.7 Phosphorus 3.4 Magnesium 2.3 Total Bilirubin 0.7 AST 94 H D ALT 104 H D Alkaline Phosphatase 127 H Total Protein 6.4 Albumin 3.1 L Globulin 3.3 Albumin/Globulin Ratio 0.9 L West Nile Virus IgG Ab West Nile Virus IgM Ab 01/30/18 01/30/18 10:49 11:36 WBC RBC Hgb Hct MCV MCH MCHC RDW Plt Count MPV Neut % (Auto) Lymph % (Auto) Edwards % (Auto) Eos % (Auto) Baso % (Auto) Neut # (Auto) Lymph # (Auto) Edwards # (Auto) Eos # (Auto) Baso # (Auto) Puncture Site Rba pCO2 42 pO2 142 H HCO3 26.8 ABG pH 7.42 ABG Total CO2 28.5 H ABG O2 Saturation 99.4 H ABG Base Excess 2.4 ABG Hemoglobin 12.0 ABG Carboxyhemoglobin 1.7 H POC ABG HHb (Measured) 0.6 ABG Methemoglobin 1.0 Jamey Test Na A-a O2 Difference 162.0 Respiratory Index 1.1 Hgb O2 Saturation 96.7 Vent Mode Bipap FiO2 50.0 Inspiratory BiPAP 12 Expiratory BiPAP 6 Sodium Potassium Chloride Carbon Dioxide Anion Gap BUN Creatinine Est GFR ( Amer) Est GFR (Non-Af Amer) POC Glucose (mg/dL) 209 H Random Glucose Calcium Phosphorus Magnesium Total Bilirubin AST ALT Alkaline Phosphatase Total Protein Albumin Globulin Albumin/Globulin Ratio West Nile Virus IgG Ab West Nile Virus IgM Ab Attending/Attestation - Attestation I have personally seen and examined this patient.: Yes I have fully participated in the care of the patient.: Yes I have reviewed all pertinent clinical information: Yes Notes (Text): 01/30/18 17:20 patient seen and examined in the intensive care unit. Extubated yesterday and placed on BiPAP for tachypnea Started on steroids last night for stridor Continue antibiotics Swallowing evaluation once stable NG tube feeding Follow-up chest x-ray and ABG
[2018-01-30] MEDS ORDERED: Glucagon Recombinant 1 mg Inj IM PRN (10:39)
[2018-01-30] MEDS ORDERED: Dextrose 50% SYRINGE Inj (50 ml) IV PRN (10:39)
[2018-01-30] MEDS: levETIRAcetam 1,000 MG in Sodium Chloride 0.9% 100 ML IVPB SCH ×2 (10:45→21:30)
[2018-01-30] MEDS: Linezolid 600 mg in D5W 300 ml 600 MG/300 ML BAG IVPB SCH ×2 (10:46→21:50)
[2018-01-30 10:52] LABS: ARTERIAL BLOOD GAS HCO3 26.8 mmol/L (21-28); ARTERIAL BLOOD GAS O2 SAT 99.4 % (95-98); ARTERIAL BLOOD GAS PCO2 42 mm/Hg (35-45); ARTERIAL BLOOD GAS PH 7.42 (7.35-7.45); ARTERIAL BLOOD GAS PO2 142 mm/Hg (80-100); ARTERIAL BLOOD GAS TCO2 28.5 mmol/L (22-28)
--- NOTE | 2018-01-30 12:45 | CP.PCM.PN ---
Subjective - Date & Time of Evaluation Date of Evaluation: 01/30/18 Time of Evaluation: 09:00 - Subjective Subjective: Patient was extubated yesterday afternoon. Patient tachypneic last night, was started on Solumedrol. Also with elevated BPs so was given Hydralazine IVP. iv rx renewed cultures reviewed blood isolate- coag neg stapsofia Objective - Vital Signs/Intake and Output Vital Signs (last 24 hours): Temp Pulse Resp BP Pulse Ox 98.8 F 90 38 H 170/84 H 100 01/30/18 04:00 01/30/18 12:20 01/30/18 06:08 01/30/18 06:08 01/30/18 12:20 Intake and Output: 01/30/18 01/30/18 06:59 18:59 Intake Total 500 Output Total 2660 180 Balance -2160 -180 - Medications Medications: Current Medications Acetaminophen (Tylenol 650mg/20.3ml Solution Ud) 650 mg NG Q6 PRN PRN Reason: GIVE FOR TEMP. 100*F OR ABOVE Last Admin: 01/27/18 16:05 Dose: 650 mg Albuterol/Ipratropium (Duoneb 3 Mg/0.5 Mg (3 Ml) Ud) 3 ml INH RQ6 [facility] Last Admin: 01/30/18 07:42 Dose: 3 ml Aspirin (Aspirin Chewable) 81 mg PO DAILY [facility] Last Admin: 01/29/18 09:15 Dose: 81 mg Carvedilol (Coreg) 12.5 mg PO BID [facility] Last Admin: 01/29/18 17:33 Dose: Not Given Dextrose (Dextrose 50% Inj) 0 ml IV STAT PRN; Protocol PRN Reason: Hypoglycemia Protocol Dextrose (Glutose 15) 0 gm PO ONCE PRN; Protocol PRN Reason: Hypoglycemia Protocol Glucagon (Glucagen Diagnostic Kit) 0 mg IM STAT PRN; Protocol PRN Reason: Hypoglycemia Protocol Heparin Sodium (Porcine) (Heparin) 5,000 units SC Q8 [facility] Last Admin: 01/30/18 06:57 Dose: 5,000 units Hydralazine HCl (Apresoline) 75 mg PO Q8 [facility] Last Admin: 01/30/18 06:40 Dose: Not Given Levetiracetam 1,000 mg/ Sodium (Chloride) 110 mls @ 440 mls/hr IVPB Q12H [facility] Last Admin: 01/30/18 10:45 Dose: 440 mls/hr Linezolid (Zyvox 600mg/300ml D5w) 600 mg in 300 mls @ 200 mls/hr IVPB Q12H [facility] PRN Reason: Protocol Last Admin: 01/30/18 10:46 Dose: 200 mls/hr Ceftazidime 2 gm/ Sodium (Chloride) 100 mls @ 100 mls/hr IV Q12H [facility] PRN Reason: Protocol Last Admin: 01/30/18 08:23 Dose: 100 mls/hr Dextrose (Dextrose 5% In Water 1000 Ml) 1,000 mls @ 0 mls/hr IV .Q0M PRN; Protocol; Per Protocol PRN Reason: Hypoglycemia Protocol Insulin Glargine (Lantus) 26 unit SC HS [facility] Last Admin: 01/29/18 23:06 Dose: Not Given Insulin Human Regular (Novolin R) 0 unit SC Q6 [facility] PRN Reason: Protocol Methylprednisolone (Solu-Medrol) 60 mg IV Q8H [facility] Stop: 01/31/18 06:45 Last Admin: 01/30/18 06:59 Dose: 60 mg Pantoprazole Sodium (Protonix Susp) 40 mg PO 1000 [facility] Last Admin: 01/29/18 09:16 Dose: 40 mg - Labs Labs: 01/30/18 06:17 01/30/18 06:17 PT 10.6 SECONDS (9.7-12.2) 01/16/18 12:27 INR 0.9 01/16/18 12:27 APTT 33 SECONDS (21-34) 01/16/18 12:27 - Constitutional Appears: Non-toxic, Chronically Ill - Head Exam Head Exam: NORMOCEPHALIC - Eye Exam Eye Exam: PERRL - ENT Exam ENT Exam: Mucous Membranes Dry - Neck Exam Neck Exam: absent: Lymphadenopathy, Thyromegaly - Respiratory Exam Respiratory Exam: Decreased Breath Sounds, Prolonged Expiratory Phase, Rhonchi - Cardiovascular Exam Cardiovascular Exam: REGULAR RHYTHM, +S1, +S2 - GI/Abdominal Exam GI & Abdominal Exam: Distended, Soft. absent: Tenderness - Rectal Exam Rectal Exam: Deferred - Exam Exam: NORMAL INSPECTION - Extremities Exam Extremities Exam: absent: Pedal Edema - Back Exam Back Exam: absent: CVA tenderness (L), CVA tenderness (R) - Neurological Exam Neurological Exam: Alert, Awake, Oriented x3 - Psychiatric Exam Psychiatric exam: Depressed - Skin Skin Exam: Dry Assessment and Plan (1) Sepsis Status: Acute (2) Sepsis Status: Acute (3) COPD (chronic obstructive pulmonary disease) Status: Acute (4) Congestive heart failure Status: Acute (5) Diabetes Status: Acute - Assessment and Plan (Free Text) Assessment: mental status improved CXR clear blood c/s positive- ? contaminant on zyvox/ fortaz may deescalate rx after 7 days if repeat blood c/s neg
[2018-01-30] MEDS: Pantoprazole 40 mg Susp UD PO SCH (13:09)
[2018-01-30 14:27] LABS: WNV AB IGM 0.06
--- NOTE | 2018-01-30 16:47 | US ---
HISTORY: sepsis / abnormal LFT COMPARISON: None. TECHNIQUE: Sonographic evaluation of the abdomen. Limited portable examination. FINDINGS: LIVER: Measures 16.5 cm. Diffusely increased echogenicity of the liver parenchyma. Consistent with fatty infiltration. Smooth contour. No mass. No biliary ductal dilatation. Hepatopetal portal venous flow demonstrated. Unable to image hepatic veins due to limitation of examination. GALLBLADDER: No evidence of cholelithiasis. Mild nonspecific mural thickening. Negative sonographic Corona sign. COMMON BILE DUCT: Measures 5 mm. No stones. No dilatation. PANCREAS: Grossly limited visualization. RIGHT KIDNEY: Measures 11.6cm. Normal echogenicity. No calculus, mass, or hydronephrosis. LEFT KIDNEY: Measures 12.4cm. Normal echogenicity. No calculus or hydronephrosis. Exophytic mid renal cortical cyst, 1.9 cm. SPLEEN: Mild splenomegaly. The spleen measures 13.0 cm in greatest dimension. AORTA: No evidence of aneurysm. Limited visualization of mid and distal abdominal aorta. IVC: Unremarkable. OTHER FINDINGS: None. IMPRESSION: Fatty liver. Mild splenomegaly. No evidence of biliary obstruction.
[2018-01-30] MEDS: (Lantus) Insulin Glargine, Recombinant SC SCH (21:52)
--- NOTE | 2018-01-31 00:01 | CP.PCM.PN ---
Subjective - Date & Time of Evaluation Date of Evaluation: 01/30/18 Time of Evaluation: 17:00 - Subjective Subjective: pt seen and evaluated today during routine follow up rounds, remains extubated , on physical therapy, breathing on his own, improving Objective - Vital Signs/Intake and Output Vital Signs (last 24 hours): Temp Pulse Resp BP Pulse Ox 98.9 F 94 H 20 164/62 H 100 01/30/18 16:00 01/30/18 22:17 01/30/18 19:06 01/30/18 19:07 01/30/18 19:06 Intake and Output: 01/30/18 01/31/18 18:59 06:59 Intake Total 560 280 Output Total 705 800 Balance -145 -520 - Medications Medications: Current Medications Acetaminophen (Tylenol 650mg/20.3ml Solution Ud) 650 mg NG Q6 PRN PRN Reason: GIVE FOR TEMP. 100*F OR ABOVE Last Admin: 01/27/18 16:05 Dose: 650 mg Albuterol/Ipratropium (Duoneb 3 Mg/0.5 Mg (3 Ml) Ud) 3 ml INH RQ6 [facility] Last Admin: 01/30/18 19:27 Dose: 3 ml Aspirin (Aspirin Chewable) 81 mg PO DAILY [facility] Last Admin: 01/30/18 13:10 Dose: 81 mg Carvedilol (Coreg) 12.5 mg PO BID [facility] Last Admin: 01/30/18 18:14 Dose: 12.5 mg Dextrose (Dextrose 50% Inj) 0 ml IV STAT PRN; Protocol PRN Reason: Hypoglycemia Protocol Dextrose (Glutose 15) 0 gm PO ONCE PRN; Protocol PRN Reason: Hypoglycemia Protocol Glucagon (Glucagen Diagnostic Kit) 0 mg IM STAT PRN; Protocol PRN Reason: Hypoglycemia Protocol Heparin Sodium (Porcine) (Heparin) 5,000 units SC Q8 [facility] Last Admin: 01/30/18 21:16 Dose: 5,000 units Hydralazine HCl (Apresoline) 75 mg PO Q8 [facility] Last Admin: 01/30/18 21:16 Dose: 75 mg Levetiracetam 1,000 mg/ Sodium (Chloride) 110 mls @ 440 mls/hr IVPB Q12H [facility] Last Admin: 01/30/18 21:30 Dose: 440 mls/hr Linezolid (Zyvox 600mg/300ml D5w) 600 mg in 300 mls @ 200 mls/hr IVPB Q12H [facility] PRN Reason: Protocol Last Admin: 01/30/18 21:50 Dose: 200 mls/hr Ceftazidime 2 gm/ Sodium (Chloride) 100 mls @ 100 mls/hr IV Q12H [facility] PRN Reason: Protocol Last Admin: 01/30/18 20:30 Dose: 100 mls/hr Dextrose (Dextrose 5% In Water 1000 Ml) 1,000 mls @ 0 mls/hr IV .Q0M PRN; Protocol; Per Protocol PRN Reason: Hypoglycemia Protocol Insulin Glargine (Lantus) 26 unit SC HS [facility] Last Admin: 01/30/18 21:52 Dose: 26 unit Insulin Human Regular (Novolin R) 0 unit SC Q6 [facility] PRN Reason: Protocol Last Admin: 01/30/18 18:14 Dose: 8 unit Methylprednisolone (Solu-Medrol) 60 mg IV Q8H [facility] Stop: 01/31/18 06:45 Last Admin: 01/30/18 21:53 Dose: 60 mg Pantoprazole Sodium (Protonix Susp) 40 mg PO 1000 [facility] Last Admin: 01/30/18 13:09 Dose: 40 mg Tamsulosin HCl (Flomax) 0.4 mg PO DAILY [facility] Last Admin: 01/30/18 21:00 Dose: 0.4 mg - Labs Labs: 01/30/18 06:17 01/30/18 06:17 PT 10.6 SECONDS (9.7-12.2) 01/16/18 12:27 INR 0.9 01/16/18 12:27 APTT 33 SECONDS (21-34) 01/16/18 12:27 Assessment and Plan (1) Status epilepticus Status: Acute (2) COPD (chronic obstructive pulmonary disease) Status: Acute (3) Congestive heart failure Status: Acute (4) Diabetes Status: Acute (5) Hypernatremia Status: Acute
[2018-01-31] MEDS: (Novolin R) Insulin Human Regular 100 units/ml vial SC SCH ×5 (00:45→17:53)
[2018-01-31] MEDS: Albuterol-Ipratrop 3 mg / 0.5 (3 ml) UD INH SCH ×4 (01:13→19:28)
[2018-01-31 05:34] LABS: ARTERIAL BLOOD GAS HCO3 28.1 mmol/L (21-28); ARTERIAL BLOOD GAS HEMOGLOBIN 12.1 g/dL (11.7-17.4); ARTERIAL BLOOD GAS PCO2 51 mm/Hg (35-45); ARTERIAL BLOOD GAS PH 7.38 (7.35-7.45); ARTERIAL BLOOD GAS PO2 125 mm/Hg (80-100); ARTERIAL BLOOD GAS TCO2 31.8 mmol/L (22-28)
[2018-01-31 06:25] LABS: BASO % 0.1 % (0.0-2.0); EOS % 0.3 % (0.0-4.0); HEMOGLOBIN 11.9 g/dL (12.0-18.0); LYMPH # 0.9 K/uL (1.0-4.3); LYMPH % 10.2 % (20.0-40.0); MEAN CELL VOLUME 90.5 fL (80.0-94.0); MEAN CORPUSCULAR HEMOGLOBIN 31.6 pg (27.0-31.0); MEAN CORPUSCULAR HGB CONC 34.9 g/dL (33.0-37.0); MEAN PLATELET VOLUME 10.9 fL (7.2-11.7); MONO # 0.4 K/uL (0.0-0.8); NEUT # 7.7 K/uL (1.8-7.0); NEUT % 85.4 % (50.0-75.0); NRBC % 0.1 % (0.0-2.0); RBC 3.76 Mil/uL (4.40-5.90); RED CELL DISTRIBUTION WIDTH 12.2 % (11.5-14.5); WHITE BLOOD COUNT 9.1 K/uL (4.8-10.8)
[2018-01-31 06:41] LABS: ALB/GLOB RATIO 0.9 (1.0-2.1); ALBUMIN 2.9 g/dL (3.5-5.0); ALT/SGPT 84 U/L (21-72); AST/SGOT 52 U/L (17-59); BLOOD UREA NITROGEN 40 mg/dL (9-20); CALCIUM 8.5 mg/dl (8.6-10.4); GFR AFRICAN-AMERICAN > 60; GFR NON-AFRICAN AMERICAN > 60
--- NOTE | 2018-01-31 07:00 | CP.PCM.PN ---
Subjective - Date & Time of Evaluation Date of Evaluation: 01/31/18 Time of Evaluation: 06:57 - Subjective Subjective: was seen and examined at the bedside in ICU. He refused to participate during assessment. He is on bipap machine and saturating at 100%. He moves his upper extremities spontaneously with minimal movement of the lower extremities. There was no untoward events overnight. Objective - Vital Signs/Intake and Output Vital Signs (last 24 hours): Temp Pulse Resp BP Pulse Ox 98.8 F 81 22 112/52 L 97 01/31/18 04:00 01/31/18 06:00 01/31/18 06:00 01/31/18 05:07 01/31/18 06:00 Intake and Output: 01/30/18 01/31/18 18:59 06:59 Intake Total 560 940 Output Total 705 800 Balance -145 140 - Medications Medications: Current Medications Acetaminophen (Tylenol 650mg/20.3ml Solution Ud) 650 mg NG Q6 PRN PRN Reason: GIVE FOR TEMP. 100*F OR ABOVE Last Admin: 01/27/18 16:05 Dose: 650 mg Albuterol/Ipratropium (Duoneb 3 Mg/0.5 Mg (3 Ml) Ud) 3 ml INH RQ6 [facility] Last Admin: 01/31/18 01:13 Dose: 3 ml Aspirin (Aspirin Chewable) 81 mg PO DAILY [facility] Last Admin: 01/30/18 13:10 Dose: 81 mg Carvedilol (Coreg) 12.5 mg PO BID [facility] Last Admin: 01/30/18 18:14 Dose: 12.5 mg Dextrose (Dextrose 50% Inj) 0 ml IV STAT PRN; Protocol PRN Reason: Hypoglycemia Protocol Dextrose (Glutose 15) 0 gm PO ONCE PRN; Protocol PRN Reason: Hypoglycemia Protocol Glucagon (Glucagen Diagnostic Kit) 0 mg IM STAT PRN; Protocol PRN Reason: Hypoglycemia Protocol Heparin Sodium (Porcine) (Heparin) 5,000 units SC Q8 [facility] Last Admin: 01/31/18 05:45 Dose: 5,000 units Hydralazine HCl (Apresoline) 75 mg PO Q8 [facility] Last Admin: 01/31/18 05:47 Dose: 75 mg Levetiracetam 1,000 mg/ Sodium (Chloride) 110 mls @ 440 mls/hr IVPB Q12H [facility] Last Admin: 01/30/18 21:30 Dose: 440 mls/hr Linezolid (Zyvox 600mg/300ml D5w) 600 mg in 300 mls @ 200 mls/hr IVPB Q12H [facility] PRN Reason: Protocol Last Admin: 01/30/18 21:50 Dose: 200 mls/hr Ceftazidime 2 gm/ Sodium (Chloride) 100 mls @ 100 mls/hr IV Q12H [facility] PRN Reason: Protocol Last Admin: 01/30/18 20:30 Dose: 100 mls/hr Dextrose (Dextrose 5% In Water 1000 Ml) 1,000 mls @ 0 mls/hr IV .Q0M PRN; Protocol; Per Protocol PRN Reason: Hypoglycemia Protocol Insulin Glargine (Lantus) 26 unit SC HS [facility] Last Admin: 01/30/18 21:52 Dose: 26 unit Insulin Human Regular (Novolin R) 0 unit SC Q6 [facility] PRN Reason: Protocol Last Admin: 01/31/18 05:47 Dose: 8 unit Pantoprazole Sodium (Protonix Susp) 40 mg PO 1000 [facility] Last Admin: 01/30/18 13:09 Dose: 40 mg Tamsulosin HCl (Flomax) 0.4 mg PO DAILY [facility] Last Admin: 01/30/18 21:00 Dose: 0.4 mg - Labs Labs: 01/31/18 06:10 01/31/18 06:10 PT 10.6 SECONDS (9.7-12.2) 01/16/18 12:27 INR 0.9 01/16/18 12:27 APTT 33 SECONDS (21-34) 01/16/18 12:27 - Constitutional Appears: No Acute Distress - Head Exam Head Exam: NORMAL INSPECTION - Neurological Exam Neuro motor strength exam: Left Upper Extremity: 5, Right Upper Extremity: 5, Left Lower Extremity: 2/1, Right Lower Extremity: 2/1 Additional comments: He refused to participate during assessment, moves extremities spontaneously especially with tactile stimuli. Assessment and Plan (1) Status epilepticus Assessment & Plan: Case discussed with Dr. Perez, continue all current medical and speech therapies. Recommend PT eval and treat for lower extremities strengthening. Status: Acute
--- NOTE | 2018-01-31 07:49 | RAD ---
HISTORY: tachypneic COMPARISON: No prior. FINDINGS: A nasogastric tube is identified placed in the interval entry into the left the abdomen with the tip off the image. LUNGS: No active pulmonary disease. PLEURA: No significant pleural effusion identified, no pneumothorax apparent. CARDIOVASCULAR: Prominent cardiac silhouette is stable. No pulmonary vascular derangement. Sternotomy wires and mediastinal surgical clips reiterated. OSSEOUS STRUCTURES: No significant abnormalities. VISUALIZED UPPER ABDOMEN: Elevated right hemidiaphragm again noted. OTHER FINDINGS: None. IMPRESSION: Stable nonacute chest radiograph including cardiomegaly and elevated right hemidiaphragm. Nasogastric tube interval placed in the interval as discussed above.
--- NOTE | 2018-01-31 08:54 | CP.CCUPN ---
<Amaya Castañeda - Last Filed: 01/31/18 11:08> CCU Subjective - Physician Review Subjective (Free Text): 01/31/18 08:52 Patient seen and examined at bedside. Per nursing, patient was straight cathed last night, 800 cc removed. Currently no urine output with [place] catheter. Patient appears restless, moving all extremities. Sating well on bipap. ROS not obtained. CCU Objective - Vital Signs / Intake & Output Vital Signs (Last 4 hours): Vital Signs Pulse Resp BP Pulse Ox 01/31/18 07:39 92 H 01/31/18 07:07 86 22 110/55 L 97 01/31/18 07:00 91 H 21 96 01/31/18 06:07 90 21 126/74 99 01/31/18 06:00 81 22 97 01/31/18 05:58 92 H 01/31/18 05:07 88 18 112/52 L 98 01/31/18 05:00 81 11 L 97 Intake and Output (Last 8hrs): Intake & Output 01/30/18 01/31/18 01/31/18 22:59 06:59 14:59 Intake Total 440 560 20 Output Total 800 0 Balance -360 560 20 Weight 105.233 kg Intake: Intake, IV Amount 200 300 Left Forearm 200 300 Tube Feeding 140 160 20 Other 100 100 Output: Urine 800 0 Urethral (Schaeffer) 800 0 - Physical Exam Head: Positive for: Atraumatic, Normocephalic Pupils: Positive for: PERRL Conjunctiva: Positive for: Normal Mouth: Positive for: Moist Mucous Membranes Neck: Positive for: Normal Range of Motion Respiratory/Chest: Positive for: Clear to Auscultation, Tachypneic. Negative for: Respiratory Distress Cardiovascular: Positive for: Regular Rate and Rhythm, Normal S1, S2. Negative for: Tachycardic Abdomen: Positive for: Normal Bowel Sounds, Other (Obese). Negative for: Tenderness, Distention, Peritoneal Signs Lower Extremity: Positive for: Normal Inspection Neurological: Positive for: Other (Moves all extremities) Skin: Positive for: Warm, Dry Psychiatric: Positive for: Alert - Medications Active Medications: Active Medications Generic Name Dose Route Start Last Admin Trade Name Freq PRN Reason Stop Dose Admin Acetaminophen 650 mg 01/19/18 00:50 01/27/18 16:05 Tylenol 650mg/20.3ml Solution Ud NG 650 mg Q6 PRN Administration GIVE FOR TEMP. 100*F OR ABOVE Albuterol/Ipratropium 3 ml 01/26/18 20:00 01/31/18 07:36 Duoneb 3 Mg/0.5 Mg (3 Ml) Ud INH 3 ml RQ6 SHINE Administration Aspirin 81 mg 01/17/18 10:00 01/30/18 13:10 Aspirin Chewable PO 81 mg DAILY SHINE Administration Carvedilol 12.5 mg 01/22/18 09:07 01/30/18 18:14 Coreg PO 12.5 mg BID SHINE Administration Dextrose 0 ml 01/30/18 10:39 Dextrose 50% Inj IV STAT PRN Hypoglycemia Protocol Protocol Dextrose 0 gm 01/30/18 10:39 Glutose 15 PO ONCE PRN Hypoglycemia Protocol Protocol Glucagon 0 mg 01/30/18 10:39 Glucagen Diagnostic Kit IM STAT PRN Hypoglycemia Protocol Protocol Heparin Sodium (Porcine) 5,000 units 01/17/18 14:00 01/31/18 05:45 Heparin SC 5,000 units Q8 SHINE Administration Hydralazine HCl 75 mg 01/28/18 19:27 01/31/18 05:47 Apresoline PO 75 mg Q8 SHINE Administration Levetiracetam 1,000 mg/ Sodium 110 mls @ 440 mls/hr 01/22/18 10:00 01/30/18 21:30 Chloride IVPB 440 mls/hr Q12H SHINE Administration Linezolid 600 mg in 300 mls @ 200 mls/hr 01/26/18 22:00 01/30/18 21:50 Zyvox 600mg/300ml D5w IVPB 200 mls/hr Q12H SHINE Administration Protocol Ceftazidime 2 gm/ Sodium 100 mls @ 100 mls/hr 01/26/18 20:00 01/31/18 08:22 Chloride IV 100 mls/hr Q12H SHINE Administration Protocol Dextrose 1,000 mls @ 0 mls/hr 01/30/18 10:39 Dextrose 5% In Water 1000 Ml IV .Q0M PRN Hypoglycemia Protocol Protocol Per Protocol Insulin Glargine 26 unit 01/29/18 22:00 01/30/18 21:52 Lantus SC 26 unit HS SHINE Administration Insulin Human Regular 0 unit 01/30/18 12:00 01/31/18 05:47 Novolin R SC 8 unit Q6 SHINE Administration Protocol Pantoprazole Sodium 40 mg 01/21/18 12:00 01/30/18 13:09 Protonix Susp PO 40 mg 1000 SHINE Administration Tamsulosin HCl 0.4 mg 01/30/18 20:00 01/30/18 21:00 Flomax PO 0.4 mg DAILY SHINE Administration - Patient Studies Lab Studies: Microbiology Studies 01/28/18 11:36 Ova and Parasite Concentrate Exam - Final Stool 01/26/18 18:45 S.aureus & Coag-Neg Staph PNA FISH - Final Blood-Venous Blood Culture - Final Coagulase Neg Staphylococcus Gram Stain - Final Lab Studies 01/31/18 01/31/18 01/31/18 Range/Units 06:10 06:10 05:36 WBC 9.1 (4.8-10.8) K/uL RBC 3.76 L (4.40-5.90) Mil/uL Hgb 11.9 L (12.0-18.0) g/dL Hct 34.0 L (35.0-51.0) % MCV 90.5 (80.0-94.0) fL MCH 31.6 H (27.0-31.0) pg MCHC 34.9 (33.0-37.0) g/dL RDW 12.2 (11.5-14.5) % Plt Count 310 (130-400) K/uL MPV 10.9 (7.2-11.7) fL Neut % (Auto) 85.4 H (50.0-75.0) % Lymph % (Auto) 10.2 L (20.0-40.0) % [place]on % (Auto) 4.0 (0.0-10.0) % Eos % (Auto) 0.3 (0.0-4.0) % Baso % (Auto) 0.1 (0.0-2.0) % Neut # (Auto) 7.7 H (1.8-7.0) K/uL Lymph # (Auto) 0.9 L (1.0-4.3) K/uL Kenton # (Auto) 0.4 (0.0-0.8) K/uL Eos # (Auto) 0.0 (0.0-0.7) K/uL Baso # (Auto) 0.0 (0.0-0.2) K/uL Puncture Site pCO2 (35-45) mm/Hg pO2 (80-100) mm/Hg HCO3 (21-28) mmol/L ABG pH (7.35-7.45) ABG Total CO2 (22-28) mmol/L ABG O2 Saturation (95-98) % ABG Base Excess (-2.0-3.0) mmol/L ABG Hemoglobin (11.7-17.4) g/dL ABG Carboxyhemoglobin (0.5-1.5) % POC ABG HHb (Measured) (0.0-5.0) % ABG Methemoglobin (0.0-3.0) % Jamey Test A-a O2 Difference mm/Hg Respiratory Index Hgb O2 Saturation (95.0-98.0) % Vent Mode FiO2 % Inspiratory BiPAP Expiratory BiPAP Sodium 143 (132-148) mmol/L Potassium 4.6 (3.6-5.2) mmol/L Chloride 106 (98-107) mmol/L Carbon Dioxide 27 (22-30) mmol/L Anion Gap 14 (10-20) BUN 40 H (9-20) mg/dL Creatinine 1.0 (0.8-1.5) mg/dL Est GFR ( Amer) > 60 Est GFR (Non-Af Amer) > 60 POC Glucose (mg/dL) 329 H (65-110) mg/dL Random Glucose 329 H (75-110) mg/dL Calcium 8.5 L (8.6-10.4) mg/dl Phosphorus 4.4 (2.5-4.5) mg/dL Magnesium 2.6 H (1.6-2.3) mg/dL Total Bilirubin 0.6 (0.2-1.3) mg/dL AST 52 (17-59) U/L ALT 84 H (21-72) U/L Alkaline Phosphatase 100 (38-126) U/L Total Protein 6.0 L (6.3-8.3) g/dL Albumin 2.9 L (3.5-5.0) g/dL Globulin 3.1 (2.2-3.9) gm/dL Albumin/Globulin Ratio 0.9 L (1.0-2.1) West Nile Virus IgG Ab West Nile Virus IgM Ab 01/31/18 01/30/18 01/30/18 Range/Units 05:20 23:32 17:39 WBC (4.8-10.8) K/uL RBC (4.40-5.90) Mil/uL Hgb (12.0-18.0) g/dL Hct (35.0-51.0) % MCV (80.0-94.0) fL MCH (27.0-31.0) pg MCHC (33.0-37.0) g/dL RDW (11.5-14.5) % Plt Count (130-400) K/uL MPV (7.2-11.7) fL Neut % (Auto) (50.0-75.0) % Lymph % (Auto) (20.0-40.0) % [place] % (Auto) (0.0-10.0) % Eos % (Auto) (0.0-4.0) % Baso % (Auto) (0.0-2.0) % Neut # (Auto) (1.8-7.0) K/uL Lymph # (Auto) (1.0-4.3) K/uL [place] # (Auto) (0.0-0.8) K/uL Eos # (Auto) (0.0-0.7) K/uL Baso # (Auto) (0.0-0.2) K/uL Puncture Site Rb pCO2 51 H (35-45) mm/Hg pO2 125 H (80-100) mm/Hg HCO3 28.1 H (21-28) mmol/L ABG pH 7.38 (7.35-7.45) ABG Total CO2 31.8 H (22-28) mmol/L ABG O2 Saturation 99.0 H (95-98) % ABG Base Excess 4.1 H (-2.0-3.0) mmol/L ABG Hemoglobin 12.1 (11.7-17.4) g/dL ABG Carboxyhemoglobin 1.5 (0.5-1.5) % POC ABG HHb (Measured) 1.0 (0.0-5.0) % ABG Methemoglobin 0.9 (0.0-3.0) % Jamey Test Na A-a O2 Difference 168.0 mm/Hg Respiratory Index 1.3 Hgb O2 Saturation 96.6 (95.0-98.0) % Vent Mode Bipap FiO2 50.0 % Inspiratory BiPAP 12 Expiratory BiPAP 6 Sodium (132-148) mmol/L Potassium (3.6-5.2) mmol/L Chloride (98-107) mmol/L Carbon Dioxide (22-30) mmol/L Anion Gap (10-20) BUN (9-20) mg/dL Creatinine (0.8-1.5) mg/dL Est GFR ( Amer) Est GFR (Non-Af Amer) POC Glucose (mg/dL) 303 H 314 H (65-110) mg/dL Random Glucose (75-110) mg/dL Calcium (8.6-10.4) mg/dl Phosphorus (2.5-4.5) mg/dL Magnesium (1.6-2.3) mg/dL Total Bilirubin (0.2-1.3) mg/dL AST (17-59) U/L ALT (21-72) U/L Alkaline Phosphatase (38-126) U/L Total Protein (6.3-8.3) g/dL Albumin (3.5-5.0) g/dL Globulin (2.2-3.9) gm/dL Albumin/Globulin Ratio (1.0-2.1) West Nile Virus IgG Ab West Nile Virus IgM Ab 01/30/18 01/30/18 01/26/18 Range/Units 11:36 10:49 18:26 WBC (4.8-10.8) K/uL RBC (4.40-5.90) Mil/uL Hgb (12.0-18.0) g/dL Hct (35.0-51.0) % MCV (80.0-94.0) fL MCH (27.0-31.0) pg MCHC (33.0-37.0) g/dL RDW (11.5-14.5) % Plt Count (130-400) K/uL MPV (7.2-11.7) fL Neut % (Auto) (50.0-75.0) % Lymph % (Auto) (20.0-40.0) % [place] % (Auto) (0.0-10.0) % Eos % (Auto) (0.0-4.0) % Baso % (Auto) (0.0-2.0) % Neut # (Auto) (1.8-7.0) K/uL Lymph # (Auto) (1.0-4.3) K/uL [place] # (Auto) (0.0-0.8) K/uL Eos # (Auto) (0.0-0.7) K/uL Baso # (Auto) (0.0-0.2) K/uL Puncture Site Rba pCO2 42 (35-45) mm/Hg pO2 142 H (80-100) mm/Hg HCO3 26.8 (21-28) mmol/L ABG pH 7.42 (7.35-7.45) ABG Total CO2 28.5 H (22-28) mmol/L ABG O2 Saturation 99.4 H (95-98) % ABG Base Excess 2.4 (-2.0-3.0) mmol/L ABG Hemoglobin 12.0 (11.7-17.4) g/dL ABG Carboxyhemoglobin 1.7 H (0.5-1.5) % POC ABG HHb (Measured) 0.6 (0.0-5.0) % ABG Methemoglobin 1.0 (0.0-3.0) % Jamey Test Na A-a O2 Difference 162.0 mm/Hg Respiratory Index 1.1 Hgb O2 Saturation 96.7 (95.0-98.0) % Vent Mode Bipap FiO2 50.0 % Inspiratory BiPAP 12 Expiratory BiPAP 6 Sodium (132-148) mmol/L Potassium (3.6-5.2) mmol/L Chloride (98-107) mmol/L Carbon Dioxide (22-30) mmol/L Anion Gap (10-20) BUN (9-20) mg/dL Creatinine (0.8-1.5) mg/dL Est GFR ( Amer) Est GFR (Non-Af Amer) POC Glucose (mg/dL) 209 H (65-110) mg/dL Random Glucose (75-110) mg/dL Calcium (8.6-10.4) mg/dl Phosphorus (2.5-4.5) mg/dL Magnesium (1.6-2.3) mg/dL Total Bilirubin (0.2-1.3) mg/dL AST (17-59) U/L ALT (21-72) U/L Alkaline Phosphatase (38-126) U/L Total Protein (6.3-8.3) g/dL Albumin (3.5-5.0) g/dL Globulin (2.2-3.9) gm/dL Albumin/Globulin Ratio (1.0-2.1) West Nile Virus IgG Ab 4.84 H West Nile Virus IgM Ab 0.06 Laboratory Results - last 24 hr 01/26/18 01/30/18 01/30/18 18:26 10:49 11:36 WBC RBC Hgb Hct MCV MCH MCHC RDW Plt Count MPV Neut % (Auto) Lymph % (Auto) [place] % (Auto) Eos % (Auto) Baso % (Auto) Neut # (Auto) Lymph # (Auto) [place] # (Auto) Eos # (Auto) Baso # (Auto) Puncture Site Rba pCO2 42 pO2 142 H HCO3 26.8 ABG pH 7.42 ABG Total CO2 28.5 H ABG O2 Saturation 99.4 H ABG Base Excess 2.4 ABG Hemoglobin 12.0 ABG Carboxyhemoglobin 1.7 H POC ABG HHb (Measured) 0.6 ABG Methemoglobin 1.0 Jamey Test Na A-a O2 Difference 162.0 Respiratory Index 1.1 Hgb O2 Saturation 96.7 Vent Mode Bipap FiO2 50.0 Inspiratory BiPAP 12 Expiratory BiPAP 6 Sodium Potassium Chloride Carbon Dioxide Anion Gap BUN Creatinine Est GFR ( Amer) Est GFR (Non-Af Amer) POC Glucose (mg/dL) 209 H Random Glucose Calcium Phosphorus Magnesium Total Bilirubin AST ALT Alkaline Phosphatase Total Protein Albumin Globulin Albumin/Globulin Ratio West Nile Virus IgG Ab 4.84 H West Nile Virus IgM Ab 0.06 01/30/18 01/30/18 01/31/18 17:39 23:32 05:20 WBC RBC Hgb Hct MCV MCH MCHC RDW Plt Count MPV Neut % (Auto) Lymph % (Auto) [place] % (Auto) Eos % (Auto) Baso % (Auto) Neut # (Auto) Lymph # (Auto) [place] # (Auto) Eos # (Auto) Baso # (Auto) Puncture Site Rb pCO2 51 H pO2 125 H HCO3 28.1 H ABG pH 7.38 ABG Total CO2 31.8 H ABG O2 Saturation 99.0 H ABG Base Excess 4.1 H ABG Hemoglobin 12.1 ABG Carboxyhemoglobin 1.5 POC ABG HHb (Measured) 1.0 ABG Methemoglobin 0.9 Jamey Test Na A-a O2 Difference 168.0 Respiratory Index 1.3 Hgb O2 Saturation 96.6 Vent Mode Bipap FiO2 50.0 Inspiratory BiPAP 12 Expiratory BiPAP 6 Sodium Potassium Chloride Carbon Dioxide Anion Gap BUN Creatinine Est GFR ( Amer) Est GFR (Non-Af Amer) POC Glucose (mg/dL) 314 H 303 H Random Glucose Calcium Phosphorus Magnesium Total Bilirubin AST ALT Alkaline Phosphatase Total Protein Albumin Globulin Albumin/Globulin Ratio West Nile Virus IgG Ab West Nile Virus IgM Ab 01/31/18 01/31/18 01/31/18 05:36 06:10 06:10 WBC 9.1 RBC 3.76 L Hgb 11.9 L Hct 34.0 L MCV 90.5 MCH 31.6 H MCHC 34.9 RDW 12.2 Plt Count 310 MPV 10.9 Neut % (Auto) 85.4 H Lymph % (Auto) 10.2 L [place] % (Auto) 4.0 Eos % (Auto) 0.3 Baso % (Auto) 0.1 Neut # (Auto) 7.7 H Lymph # (Auto) 0.9 L [place] # (Auto) 0.4 Eos # (Auto) 0.0 Baso # (Auto) 0.0 Puncture Site pCO2 pO2 HCO3 ABG pH ABG Total CO2 ABG O2 Saturation ABG Base Excess ABG Hemoglobin ABG Carboxyhemoglobin POC ABG HHb (Measured) ABG Methemoglobin Jamey Test A-a O2 Difference Respiratory Index Hgb O2 Saturation Vent Mode FiO2 Inspiratory BiPAP Expiratory BiPAP Sodium 143 Potassium 4.6 Chloride 106 Carbon Dioxide 27 Anion Gap 14 BUN 40 H Creatinine 1.0 Est GFR ( Amer) > 60 Est GFR (Non-Af Amer) > 60 POC Glucose (mg/dL) 329 H Random Glucose 329 H Calcium 8.5 L Phosphorus 4.4 Magnesium 2.6 H Total Bilirubin 0.6 AST 52 ALT 84 H Alkaline Phosphatase 100 Total Protein 6.0 L Albumin 2.9 L Globulin 3.1 Albumin/Globulin Ratio 0.9 L West Nile Virus IgG Ab West Nile Virus IgM Ab Fingerstick Blood Sugar Results: 329 Assessment/Plan - Assessment and Plan (Free Text) Assessment: 67 year old male with a past medical history of type 2 dm, hypertension, cva, s/ p cabg (8yrs ago), hyperlipidemia who was admitted to the ICU after being found unresponsive by daughter. Patient subsequently had a witnessed seizure while in the hospital and was transferred to the ICU for further monitoring Plan: Neurology: New onset Seizures -Patient is currently awake and alert, moving all extremities -Swallow evaluation and PT eval ordered -EEG showed diffuse slowing is seen, suggestive of a diffuse abnormality of the brain. Some focal slowing was seen, suggestive of a focal abnormality. No seizures noted during the EEG recording. -Repeat CT of head showed no acute abnormalities -Will Continue Keppra 1000 mg Q12H -Neurology on consult, Dr Perez, help appreciated -After discussion with Neurology, no plan for LP at this time, patient is neurologically improving Hematology: Electrolyte imbalances -Hgb stable -Continue to monitor labs daily Cardiovascular: Hypertension -Continue Carvedilol 12.5mg PO BID and Hydralazine 75mg PO Q8H -Continue Aspirin 81mg PO daily -Will discontinue Crestor at this time due to elevated LFTs Respiratory -Patient extubated, was tacynpneic on NC yesterday so we placed on Bipap -Patient doing well on Bipap, will discontinue at this time and monitor respiratory status -Continue Duonebs Q6H -CXR 01/30: showed elevated right hemidiaphragm -CXR today showing no change -Solumedrol 60mg Q8H IVP discontinued Hematology: DVT of Right subclavian vein -Heparin 5000 units Q8H SC Renal: Hypernatremia -Sodium has normalized -Nephrology on consult, help appreciated Genitourinary -Patient with urinary retention after schaeffer was removed yesterday -Patient was straight cathed, 800cc of urine removed -Will reinsert schaeffer at this time, continue flomax 0.4mg daily Endocrinology: h/o Diabetes -Hgba1c 9.2 -Accuchecks in 300s, solumedrol discontinued -Lantus 26 units SC HS -High dose ISS for coverage -Continue accuchecks -Hypoglycemia protocol GI: -Swallow evaluation ordered -AST/ALT: 52/84 (improving) -Abdominal US showed fatty liver, mild splenomegaly, no evidence of biliary obstruction -Crestor discontinued, Will continue to monitor Infectious Disease: Gram positive bacteremia -01/26 Blood cultures grew Gram positive cocci x 2, awaiting finalized result -Patient is on Linezolid 600mg Q12H and Ceftazidine 2gm Q12H -Infectious Disease on consult, will f/u recommendations GI proph - Protonix 40mg PO daily DVT proph - Heparin 5000U sq Q8 Plan discussed with Dr Mims <Ford Mims - Last Filed: 01/31/18 17:02> CCU Objective - Vital Signs / Intake & Output Intake and Output (Last 8hrs): Intake & Output 01/31/18 01/31/18 01/31/18 06:59 14:59 22:59 Intake Total 560 160 Output Total 0 1200 Balance 560 -1040 Weight 232 lb Intake: Intake, IV Amount 300 Left Forearm 300 Tube Feeding 160 160 Other 100 Output: Urine 0 1200 Urethral (Schaeffer) 0 1200 - Medications Active Medications: Active Medications Generic Name Dose Route Start Last Admin Trade Name Freq PRN Reason Stop Dose Admin Acetaminophen 650 mg 01/19/18 00:50 01/27/18 16:05 Tylenol 650mg/20.3ml Solution Ud NG 650 mg Q6 PRN Administration GIVE FOR TEMP. 100*F OR ABOVE Albuterol/Ipratropium 3 ml 01/26/18 20:00 01/31/18 13:27 Duoneb 3 Mg/0.5 Mg (3 Ml) Ud INH 3 ml RQ6 SHINE Administration Aspirin 81 mg 01/17/18 10:00 01/31/18 10:53 Aspirin Chewable PO 81 mg DAILY SHINE Administration Carvedilol 12.5 mg 01/22/18 09:07 01/31/18 10:50 Coreg PO 12.5 mg BID SHINE Administration Dextrose 0 ml 01/30/18 10:39 Dextrose 50% Inj IV STAT PRN Hypoglycemia Protocol Protocol Dextrose 0 gm 01/30/18 10:39 Glutose 15 PO ONCE PRN Hypoglycemia Protocol Protocol Glucagon 0 mg 01/30/18 10:39 Glucagen Diagnostic Kit IM STAT PRN Hypoglycemia Protocol Protocol Heparin Sodium (Porcine) 5,000 units 01/17/18 14:00 01/31/18 05:45 Heparin SC 5,000 units Q8 SHINE Administration Hydralazine HCl 75 mg 01/28/18 19:27 01/31/18 05:47 Apresoline PO 75 mg Q8 SHINE Administration Levetiracetam 1,000 mg/ Sodium 110 mls @ 440 mls/hr 01/22/18 10:00 01/31/18 10:46 Chloride IVPB 440 mls/hr Q12H SHINE Administration Dextrose 1,000 mls @ 0 mls/hr 01/30/18 10:39 Dextrose 5% In Water 1000 Ml IV .Q0M PRN Hypoglycemia Protocol Protocol Per Protocol Acyclovir 500 mg/ Sodium 100 mls @ 100 mls/hr 01/31/18 18:00 Chloride IV Q8H SHINE Protocol Vancomycin/Sodium Chloride 1 gm in 200 mls @ 133 mls/hr 01/31/18 19:00 Vancomycin 1 Gm/Ns 200 Ml IVPB 02/05/18 19:01 Q12H SHINE Insulin Glargine 26 unit 01/29/18 22:00 01/30/18 21:52 Lantus SC 26 unit HS SHINE Administration Insulin Human Regular 0 unit 01/30/18 12:00 01/31/18 11:58 Novolin R SC 8 unit Q6 SHINE Administration Protocol Pantoprazole Sodium 40 mg 01/21/18 12:00 01/31/18 10:50 Protonix Susp PO 40 mg 1000 SHINE Administration Tamsulosin HCl 0.4 mg 01/30/18 20:00 01/31/18 09:27 Flomax PO Not Given DAILY SHINE - Patient Studies Lab Studies: Lab Studies 01/31/18 01/31/18 01/31/18 Range/Units 15:49 15:40 11:39 WBC (4.8-10.8) K/uL RBC (4.40-5.90) Mil/uL Hgb (12.0-18.0) g/dL Hct (35.0-51.0) % MCV (80.0-94.0) fL MCH (27.0-31.0) pg MCHC (33.0-37.0) g/dL RDW (11.5-14.5) % Plt Count (130-400) K/uL MPV (7.2-11.7) fL Neut % (Auto) (50.0-75.0) % Lymph % (Auto) (20.0-40.0) % [place]on % (Auto) (0.0-10.0) % Eos % (Auto) (0.0-4.0) % Baso % (Auto) (0.0-2.0) % Neut # (Auto) (1.8-7.0) K/uL Lymph # (Auto) (1.0-4.3) K/uL [place]on # (Auto) (0.0-0.8) K/uL Eos # (Auto) (0.0-0.7) K/uL Baso # (Auto) (0.0-0.2) K/uL Puncture Site Lba pCO2 46 H (35-45) mm/Hg pO2 82 (80-100) mm/Hg HCO3 29.1 H (21-28) mmol/L ABG pH 7.43 (7.35-7.45) ABG Total CO2 31.9 H (22-28) mmol/L ABG O2 Saturation 97.6 (95-98) % ABG Base Excess 5.4 H (-2.0-3.0) mmol/L ABG Hemoglobin 11.8 (11.7-17.4) g/dL ABG Carboxyhemoglobin 1.7 H (0.5-1.5) % POC ABG HHb (Measured) 2.3 (0.0-5.0) % ABG Methemoglobin 1.3 (0.0-3.0) % Jamey Test Pos A-a O2 Difference 60.0 mm/Hg Respiratory Index 0.7 Hgb O2 Saturation 94.8 L (95.0-98.0) % Vent Mode FiO2 28.0 % Inspiratory BiPAP Expiratory BiPAP Sodium (132-148) mmol/L Potassium (3.6-5.2) mmol/L Chloride (98-107) mmol/L Carbon Dioxide (22-30) mmol/L Anion Gap (10-20) BUN (9-20) mg/dL Creatinine (0.8-1.5) mg/dL Est GFR ( Amer) Est GFR (Non-Af Amer) POC Glucose (mg/dL) 330 H (65-110) mg/dL Random Glucose (75-110) mg/dL Calcium (8.6-10.4) mg/dl Phosphorus (2.5-4.5) mg/dL Magnesium (1.6-2.3) mg/dL Total Bilirubin (0.2-1.3) mg/dL AST (17-59) U/L ALT (21-72) U/L Alkaline Phosphatase (38-126) U/L Total Protein (6.3-8.3) g/dL Albumin (3.5-5.0) g/dL Globulin (2.2-3.9) gm/dL Albumin/Globulin Ratio (1.0-2.1) Urine Color Yellow (YELLOW) Urine Clarity Clear (Clear) Urine pH 5.0 (5.0-8.0) Ur Specific Rule 1.023 (1.003-1.030) Urine Protein 1+ H (NEGATIVE) mg/dL Urine Glucose (UA) 3+ H (Normal) mg/dL Urine Ketones Trace (NEGATIVE) mg/dL Urine Blood Negative (NEGATIVE) Urine Nitrate Negative (NEGATIVE) Urine Bilirubin Negative (NEGATIVE) Urine Urobilinogen Normal (0.2-1.0) mg/dL Ur Leukocyte Esterase Neg (Negative) Minh/uL Urine WBC (Auto) 2 (0-5) /hpf Urine RBC (Auto) 2 (0-3) /hpf Urine Bacteria Occ H (<OCC) Urine Yeast (Budding) Occ H (NEGATIVE) /hpf 01/31/18 01/31/18 01/31/18 Range/Units 06:10 06:10 05:36 WBC 9.1 (4.8-10.8) K/uL RBC 3.76 L (4.40-5.90) Mil/uL Hgb 11.9 L (12.0-18.0) g/dL Hct 34.0 L (35.0-51.0) % MCV 90.5 (80.0-94.0) fL MCH 31.6 H (27.0-31.0) pg MCHC 34.9 (33.0-37.0) g/dL RDW 12.2 (11.5-14.5) % Plt Count 310 (130-400) K/uL MPV 10.9 (7.2-11.7) fL Neut % (Auto) 85.4 H (50.0-75.0) % Lymph % (Auto) 10.2 L (20.0-40.0) % [place] % (Auto) 4.0 (0.0-10.0) % Eos % (Auto) 0.3 (0.0-4.0) % Baso % (Auto) 0.1 (0.0-2.0) % Neut # (Auto) 7.7 H (1.8-7.0) K/uL Lymph # (Auto) 0.9 L (1.0-4.3) K/uL [place] # (Auto) 0.4 (0.0-0.8) K/uL Eos # (Auto) 0.0 (0.0-0.7) K/uL Baso # (Auto) 0.0 (0.0-0.2) K/uL Puncture Site pCO2 (35-45) mm/Hg pO2 (80-100) mm/Hg HCO3 (21-28) mmol/L ABG pH (7.35-7.45) ABG Total CO2 (22-28) mmol/L ABG O2 Saturation (95-98) % ABG Base Excess (-2.0-3.0) mmol/L ABG Hemoglobin (11.7-17.4) g/dL ABG Carboxyhemoglobin (0.5-1.5) % POC ABG HHb (Measured) (0.0-5.0) % ABG Methemoglobin (0.0-3.0) % Jamey Test A-a O2 Difference mm/Hg Respiratory Index Hgb O2 Saturation (95.0-98.0) % Vent Mode FiO2 % Inspiratory BiPAP Expiratory BiPAP Sodium 143 (132-148) mmol/L Potassium 4.6 (3.6-5.2) mmol/L Chloride 106 (98-107) mmol/L Carbon Dioxide 27 (22-30) mmol/L Anion Gap 14 (10-20) BUN 40 H (9-20) mg/dL Creatinine 1.0 (0.8-1.5) mg/dL Est GFR ( Amer) > 60 Est GFR (Non-Af Amer) > 60 POC Glucose (mg/dL) 329 H (65-110) mg/dL Random Glucose 329 H (75-110) mg/dL Calcium 8.5 L (8.6-10.4) mg/dl Phosphorus 4.4 (2.5-4.5) mg/dL Magnesium 2.6 H (1.6-2.3) mg/dL Total Bilirubin 0.6 (0.2-1.3) mg/dL AST 52 (17-59) U/L ALT 84 H (21-72) U/L Alkaline Phosphatase 100 (38-126) U/L Total Protein 6.0 L (6.3-8.3) g/dL Albumin 2.9 L (3.5-5.0) g/dL Globulin 3.1 (2.2-3.9) gm/dL Albumin/Globulin Ratio 0.9 L (1.0-2.1) Urine Color (YELLOW) Urine Clarity (Clear) Urine pH (5.0-8.0) Ur Specific Rule (1.003-1.030) Urine Protein (NEGATIVE) mg/dL Urine Glucose (UA) (Normal) mg/dL Urine Ketones (NEGATIVE) mg/dL Urine Blood (NEGATIVE) Urine Nitrate (NEGATIVE) Urine Bilirubin (NEGATIVE) Urine Urobilinogen (0.2-1.0) mg/dL Ur Leukocyte Esterase (Negative) Minh/uL Urine WBC (Auto) (0-5) /hpf Urine RBC (Auto) (0-3) /hpf Urine Bacteria (<OCC) Urine Yeast (Budding) (NEGATIVE) /hpf 01/31/18 01/30/18 01/30/18 Range/Units 05:20 23:32 17:39 WBC (4.8-10.8) K/uL RBC (4.40-5.90) Mil/uL Hgb (12.0-18.0) g/dL Hct (35.0-51.0) % MCV (80.0-94.0) fL MCH (27.0-31.0) pg MCHC (33.0-37.0) g/dL RDW (11.5-14.5) % Plt Count (130-400) K/uL MPV (7.2-11.7) fL Neut % (Auto) (50.0-75.0) % Lymph % (Auto) (20.0-40.0) % [place] % (Auto) (0.0-10.0) % Eos % (Auto) (0.0-4.0) % Baso % (Auto) (0.0-2.0) % Neut # (Auto) (1.8-7.0) K/uL Lymph # (Auto) (1.0-4.3) K/uL [place]on # (Auto) (0.0-0.8) K/uL Eos # (Auto) (0.0-0.7) K/uL Baso # (Auto) (0.0-0.2) K/uL Puncture Site Rb pCO2 51 H (35-45) mm/Hg pO2 125 H (80-100) mm/Hg HCO3 28.1 H (21-28) mmol/L ABG pH 7.38 (7.35-7.45) ABG Total CO2 31.8 H (22-28) mmol/L ABG O2 Saturation 99.0 H (95-98) % ABG Base Excess 4.1 H (-2.0-3.0) mmol/L ABG Hemoglobin 12.1 (11.7-17.4) g/dL ABG Carboxyhemoglobin 1.5 (0.5-1.5) % POC ABG HHb (Measured) 1.0 (0.0-5.0) % ABG Methemoglobin 0.9 (0.0-3.0) % Jamey Test Na A-a O2 Difference 168.0 mm/Hg Respiratory Index 1.3 Hgb O2 Saturation 96.6 (95.0-98.0) % Vent Mode Bipap FiO2 50.0 % Inspiratory BiPAP 12 Expiratory BiPAP 6 Sodium (132-148) mmol/L Potassium (3.6-5.2) mmol/L Chloride (98-107) mmol/L Carbon Dioxide (22-30) mmol/L Anion Gap (10-20) BUN (9-20) mg/dL Creatinine (0.8-1.5) mg/dL Est GFR ( Amer) Est GFR (Non-Af Amer) POC Glucose (mg/dL) 303 H 314 H (65-110) mg/dL Random Glucose (75-110) mg/dL Calcium (8.6-10.4) mg/dl Phosphorus (2.5-4.5) mg/dL Magnesium (1.6-2.3) mg/dL Total Bilirubin (0.2-1.3) mg/dL AST (17-59) U/L ALT (21-72) U/L Alkaline Phosphatase (38-126) U/L Total Protein (6.3-8.3) g/dL Albumin (3.5-5.0) g/dL Globulin (2.2-3.9) gm/dL Albumin/Globulin Ratio (1.0-2.1) Urine Color (YELLOW) Urine Clarity (Clear) Urine pH (5.0-8.0) Ur Specific Rule (1.003-1.030) Urine Protein (NEGATIVE) mg/dL Urine Glucose (UA) (Normal) mg/dL Urine Ketones (NEGATIVE) mg/dL Urine Blood (NEGATIVE) Urine Nitrate (NEGATIVE) Urine Bilirubin (NEGATIVE) Urine Urobilinogen (0.2-1.0) mg/dL Ur Leukocyte Esterase (Negative) Minh/uL Urine WBC (Auto) (0-5) /hpf Urine RBC (Auto) (0-3) /hpf Urine Bacteria (<OCC) Urine Yeast (Budding) (NEGATIVE) /hpf Laboratory Results - last 24 hr 01/30/18 01/30/18 01/31/18 17:39 23:32 05:20 WBC RBC Hgb Hct MCV MCH MCHC RDW Plt Count MPV Neut % (Auto) Lymph % (Auto) [place]on % (Auto) Eos % (Auto) Baso % (Auto) Neut # (Auto) Lymph # (Auto) [place] # (Auto) Eos # (Auto) Baso # (Auto) Puncture Site Rb pCO2 51 H pO2 125 H HCO3 28.1 H ABG pH 7.38 ABG Total CO2 31.8 H ABG O2 Saturation 99.0 H ABG Base Excess 4.1 H ABG Hemoglobin 12.1 ABG Carboxyhemoglobin 1.5 POC ABG HHb (Measured) 1.0 ABG Methemoglobin 0.9 Jamey Test Na A-a O2 Difference 168.0 Respiratory Index 1.3 Hgb O2 Saturation 96.6 Vent Mode Bipap FiO2 50.0 Inspiratory BiPAP 12 Expiratory BiPAP 6 Sodium Potassium Chloride Carbon Dioxide Anion Gap BUN Creatinine Est GFR ( Amer) Est GFR (Non-Af Amer) POC Glucose (mg/dL) 314 H 303 H Random Glucose Calcium Phosphorus Magnesium Total Bilirubin AST ALT Alkaline Phosphatase Total Protein Albumin Globulin Albumin/Globulin Ratio Urine Color Urine Clarity Urine pH Ur Specific Rule Urine Protein Urine Glucose (UA) Urine Ketones Urine Blood Urine Nitrate Urine Bilirubin Urine Urobilinogen Ur Leukocyte Esterase Urine WBC (Auto) Urine RBC (Auto) Urine Bacteria Urine Yeast (Budding) 01/31/18 01/31/18 01/31/18 05:36 06:10 06:10 WBC 9.1 RBC 3.76 L Hgb 11.9 L Hct 34.0 L MCV 90.5 MCH 31.6 H MCHC 34.9 RDW 12.2 Plt Count 310 MPV 10.9 Neut % (Auto) 85.4 H Lymph % (Auto) 10.2 L [place] % (Auto) 4.0 Eos % (Auto) 0.3 Baso % (Auto) 0.1 Neut # (Auto) 7.7 H Lymph # (Auto) 0.9 L [place] # (Auto) 0.4 Eos # (Auto) 0.0 Baso # (Auto) 0.0 Puncture Site pCO2 pO2 HCO3 ABG pH ABG Total CO2 ABG O2 Saturation ABG Base Excess ABG Hemoglobin ABG Carboxyhemoglobin POC ABG HHb (Measured) ABG Methemoglobin Jamey Test A-a O2 Difference Respiratory Index Hgb O2 Saturation Vent Mode FiO2 Inspiratory BiPAP Expiratory BiPAP Sodium 143 Potassium 4.6 Chloride 106 Carbon Dioxide 27 Anion Gap 14 BUN 40 H Creatinine 1.0 Est GFR ( Amer) > 60 Est GFR (Non-Af Amer) > 60 POC Glucose (mg/dL) 329 H Random Glucose 329 H Calcium 8.5 L Phosphorus 4.4 Magnesium 2.6 H Total Bilirubin 0.6 AST 52 ALT 84 H Alkaline Phosphatase 100 Total Protein 6.0 L Albumin 2.9 L Globulin 3.1 Albumin/Globulin Ratio 0.9 L Urine Color Urine Clarity Urine pH Ur Specific Rule Urine Protein Urine Glucose (UA) Urine Ketones Urine Blood Urine Nitrate Urine Bilirubin Urine Urobilinogen Ur Leukocyte Esterase Urine WBC (Auto) Urine RBC (Auto) Urine Bacteria Urine Yeast (Budding) 01/31/18 01/31/18 01/31/18 11:39 15:40 15:49 WBC RBC Hgb Hct MCV MCH MCHC RDW Plt Count MPV Neut % (Auto) Lymph % (Auto) [place] % (Auto) Eos % (Auto) Baso % (Auto) Neut # (Auto) Lymph # (Auto) [place] # (Auto) Eos # (Auto) Baso # (Auto) Puncture Site Lba pCO2 46 H pO2 82 HCO3 29.1 H ABG pH 7.43 ABG Total CO2 31.9 H ABG O2 Saturation 97.6 ABG Base Excess 5.4 H ABG Hemoglobin 11.8 ABG Carboxyhemoglobin 1.7 H POC ABG HHb (Measured) 2.3 ABG Methemoglobin 1.3 Jamey Test Pos A-a O2 Difference 60.0 Respiratory Index 0.7 Hgb O2 Saturation 94.8 L Vent Mode FiO2 28.0 Inspiratory BiPAP Expiratory BiPAP Sodium Potassium Chloride Carbon Dioxide Anion Gap BUN Creatinine Est GFR ( Amer) Est GFR (Non-Af Amer) POC Glucose (mg/dL) 330 H Random Glucose Calcium Phosphorus Magnesium Total Bilirubin AST ALT Alkaline Phosphatase Total Protein Albumin Globulin Albumin/Globulin Ratio Urine Color Yellow Urine Clarity Clear Urine pH 5.0 Ur Specific Rule 1.023 Urine Protein 1+ H Urine Glucose (UA) 3+ H Urine Ketones Trace Urine Blood Negative Urine Nitrate Negative Urine Bilirubin Negative Urine Urobilinogen Normal Ur Leukocyte Esterase Neg Urine WBC (Auto) 2 Urine RBC (Auto) 2 Urine Bacteria Occ H Urine Yeast (Budding) Occ H Attending/Attestation - Attestation I have personally seen and examined this patient.: Yes I have fully participated in the care of the patient.: Yes I have reviewed all pertinent clinical information: Yes Notes (Text): 01/31/18 17:02 patient seen and examined in the intensive care unit. Patient appears more lethargic today CAT scan of the head ABG showed no retaining of PCO2 Continue BiPAP as needed NGT feeding Repeat EEG Continue antiseizure medicines
[2018-01-31] MEDS: levETIRAcetam 1,000 MG in Sodium Chloride 0.9% 100 ML IVPB SCH ×2 (10:46→22:30)
[2018-01-31] MEDS: Linezolid 600 mg in D5W 300 ml 600 MG/300 ML BAG IVPB SCH (10:48)
[2018-01-31] MEDS: Pantoprazole 40 mg Susp UD PO SCH (10:50)
[2018-01-31 15:44] LABS: ABG ALLEN TEST POS; ARTERIAL BLOOD GAS HCO3 29.1 mmol/L (21-28); ARTERIAL BLOOD GAS HEMOGLOBIN 11.8 g/dL (11.7-17.4); ARTERIAL BLOOD GAS O2 SAT 97.6 % (95-98); ARTERIAL BLOOD GAS PCO2 46 mm/Hg (35-45); ARTERIAL BLOOD GAS PH 7.43 (7.35-7.45); ARTERIAL BLOOD GAS PO2 82 mm/Hg (80-100); ARTERIAL BLOOD GAS TCO2 31.9 mmol/L (22-28)
[2018-01-31 16:25] LABS: URINE BACTERIA OCC (<OCC); URINE BILIRUBIN NEGATIVE (NEGATIVE); URINE BLOOD NEGATIVE (NEGATIVE); URINE CLARITY Clear (Clear); URINE COLOR Yellow (YELLOW); URINE GLUCOSE (UA) 3+ mg/dL (Normal); URINE LEUKOCYTE ESTERASE NEG Leu/uL (Negative); URINE PROTEIN 1+ mg/dL (NEGATIVE); URINE UROBILINOGEN NORMAL mg/dL (0.2-1.0)
--- NOTE | 2018-01-31 16:27 | CP.PCM.PN ---
Subjective - Date & Time of Evaluation Date of Evaluation: 01/31/18 Time of Evaluation: 09:00 - Subjective Subjective: APPEARS LESS RESPONSIVE TODAY AWAKE OOB TO CHAIR NAD STILL MILDY TACHYPNEIC NOT FOLLOWING COMMANDS Objective - Vital Signs/Intake and Output Vital Signs (last 24 hours): Temp Pulse Resp BP Pulse Ox 98 F 82 24 138/59 L 96 01/31/18 08:00 01/31/18 13:00 01/31/18 13:00 01/31/18 12:26 01/31/18 13:00 Intake and Output: 01/31/18 01/31/18 06:59 18:59 Intake Total 940 160 Output Total 800 1200 Balance 140 -1040 - Medications Medications: Current Medications Acetaminophen (Tylenol 650mg/20.3ml Solution Ud) 650 mg NG Q6 PRN PRN Reason: GIVE FOR TEMP. 100*F OR ABOVE Last Admin: 01/27/18 16:05 Dose: 650 mg Albuterol/Ipratropium (Duoneb 3 Mg/0.5 Mg (3 Ml) Ud) 3 ml INH RQ6 [facility] Last Admin: 01/31/18 13:27 Dose: 3 ml Aspirin (Aspirin Chewable) 81 mg PO DAILY [facility] Last Admin: 01/31/18 10:53 Dose: 81 mg Carvedilol (Coreg) 12.5 mg PO BID [facility] Last Admin: 01/31/18 10:50 Dose: 12.5 mg Dextrose (Dextrose 50% Inj) 0 ml IV STAT PRN; Protocol PRN Reason: Hypoglycemia Protocol Dextrose (Glutose 15) 0 gm PO ONCE PRN; Protocol PRN Reason: Hypoglycemia Protocol Glucagon (Glucagen Diagnostic Kit) 0 mg IM STAT PRN; Protocol PRN Reason: Hypoglycemia Protocol Heparin Sodium (Porcine) (Heparin) 5,000 units SC Q8 [facility] Last Admin: 01/31/18 05:45 Dose: 5,000 units Hydralazine HCl (Apresoline) 75 mg PO Q8 [facility] Last Admin: 01/31/18 05:47 Dose: 75 mg Levetiracetam 1,000 mg/ Sodium (Chloride) 110 mls @ 440 mls/hr IVPB Q12H [facility] Last Admin: 01/31/18 10:46 Dose: 440 mls/hr Linezolid (Zyvox 600mg/300ml D5w) 600 mg in 300 mls @ 200 mls/hr IVPB Q12H [facility] PRN Reason: Protocol Last Admin: 01/31/18 10:48 Dose: 200 mls/hr Ceftazidime 2 gm/ Sodium (Chloride) 100 mls @ 100 mls/hr IV Q12H [facility] PRN Reason: Protocol Last Admin: 01/31/18 08:22 Dose: 100 mls/hr Dextrose (Dextrose 5% In Water 1000 Ml) 1,000 mls @ 0 mls/hr IV .Q0M PRN; Protocol; Per Protocol PRN Reason: Hypoglycemia Protocol Insulin Glargine (Lantus) 26 unit SC HS [facility] Last Admin: 01/30/18 21:52 Dose: 26 unit Insulin Human Regular (Novolin R) 0 unit SC Q6 [facility] PRN Reason: Protocol Last Admin: 01/31/18 11:58 Dose: 8 unit Pantoprazole Sodium (Protonix Susp) 40 mg PO 1000 [facility] Last Admin: 01/31/18 10:50 Dose: 40 mg Tamsulosin HCl (Flomax) 0.4 mg PO DAILY [facility] Last Admin: 01/31/18 09:27 Dose: Not Given - Labs Labs: 01/31/18 06:10 01/31/18 06:10 PT 10.6 SECONDS (9.7-12.2) 01/16/18 12:27 INR 0.9 01/16/18 12:27 APTT 33 SECONDS (21-34) 01/16/18 12:27 - Constitutional Appears: Confused, Chronically Ill - Head Exam Head Exam: NORMOCEPHALIC - Eye Exam Eye Exam: PERRL. absent: Scleral icterus - ENT Exam ENT Exam: Mucous Membranes Dry - Neck Exam Neck Exam: absent: Lymphadenopathy - Respiratory Exam Respiratory Exam: Decreased Breath Sounds, Rhonchi - Cardiovascular Exam Cardiovascular Exam: REGULAR RHYTHM, +S1, +S2 - GI/Abdominal Exam GI & Abdominal Exam: Distended, Soft. absent: Tenderness - Rectal Exam Rectal Exam: Deferred - Exam Exam: NORMAL INSPECTION - Extremities Exam Extremities Exam: Pedal Edema. absent: Calf Tenderness, Tenderness - Back Exam Back Exam: absent: CVA tenderness (L), CVA tenderness (R) - Neurological Exam Neurological Exam: Alert, Altered, CN II-XII Intact Neuro motor strength exam: Left Upper Extremity: 3, Right Upper Extremity: 3, Left Lower Extremity: 3, Right Lower Extremity: 3 - Psychiatric Exam Psychiatric exam: Depressed - Skin Skin Exam: Dry Assessment and Plan (1) Sepsis Status: Acute (2) Sepsis Status: Acute (3) COPD (chronic obstructive pulmonary disease) Status: Acute (4) Congestive heart failure Status: Acute (5) Diabetes Status: Acute (6) Encephalopathy Status: Acute - Assessment and Plan (Free Text) Assessment: WILL RESTART ACYCLOVIR AWAIT NEURO RE-EVAL
[2018-01-31] MEDS ORDERED: (Novolin R) Insulin Human Regular 100 units/ml vial SC ONE (17:50)
--- NOTE | 2018-01-31 17:55 | CT ---
PROCEDURE: CT HEAD WITHOUT CONTRAST. HISTORY: AMS COMPARISON: Comparison made with multiple prior CT scan brain 01/23/2018 hand 01/16/2018. TECHNIQUE: Axial computed tomography images were obtained through the head/brain without intravenous contrast. Radiation dose: Total exam DLP = 1214.08 mGy-cm. This CT exam was performed using one or more of the following dose reduction techniques: Automated exposure control, adjustment of the mA and/or kV according to patient size, and/or use of iterative reconstruction technique. Note this examination is limited by motion artifact. Study is further limited by crossing streak and beam hardening artifact arising from overlying metallic wires FINDINGS: HEMORRHAGE: No acute parenchymal, subarachnoid or extra-axial hemorrhage. BRAIN: Re- demonstrated is an old right posterior cerebral artery territory infarct. In addition, moderate diffuse/confluent chronic periventricular white matter ischemic changes seen extending peripherally into the deep and subcortical white matter both cerebral hemispheres. In addition, multiple bilateral basal nuclei and coronal radiata lacunar type infarcts again noted. No obvious parenchymal nor extra-axial mass or collection seen on this noncontrast study. Moderate generalized volume loss. VENTRICLES: No obstructive hydrocephalus. CALVARIUM: Calvarium intact Questionable mild edema versus mid posterior superior scalp swelling. PARANASAL SINUSES: Unremarkable as visualized. No significant inflammatory changes. MASTOID AIR CELLS: Unremarkable as visualized. No inflammatory changes. OTHER FINDINGS: Changes of bilateral cataract surgery again noted IMPRESSION: Limited motion degraded study. No evidence of acute intracranial hemorrhage. 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 Moderate diffuse/confluent chronic white matter ischemic changes. . Multiple chronic bilateral basal nuclei coronal radiata lacunar type infarcts.
[2018-01-31] MEDS: Acyclovir 500 MG in Sodium Chloride 0.9% 100 ML IV SCH (18:30)
[2018-01-31] MEDS ORDERED: Midazolam 2 MG/2 ML VIAL IVP ONE (18:58)
[2018-01-31] MEDS: Vancomycin 1 gm/NS 200 ml 1 GM/200 ML BAG IVPB SCH (19:00)
[2018-01-31] MEDS ORDERED: Valproic Acid 250 mg/5 ml UD Cup PO STA (21:47)
--- NOTE | 2018-01-31 21:49 | CP.CCUPN ---
CCU Objective - Vital Signs / Intake & Output Intake and Output (Last 8hrs): Intake & Output 01/31/18 01/31/18 01/31/18 06:59 14:59 22:59 Intake Total 560 160 Output Total 0 1200 Balance 560 -1040 Weight 232 lb Intake: Intake, IV Amount 300 Left Forearm 300 Tube Feeding 160 160 Other 100 Output: Urine 0 1200 Urethral (Stanley) 0 1200 - Physical Exam Head: Positive for: Atraumatic, Normocephalic Pupils: Positive for: PERRL Conjunctiva: Positive for: Normal Mouth: Positive for: Moist Mucous Membranes Neck: Positive for: Normal Range of Motion Respiratory/Chest: Positive for: Clear to Auscultation, Tachypneic. Negative for: Respiratory Distress Cardiovascular: Positive for: Regular Rate and Rhythm, Normal S1, S2. Negative for: Tachycardic Abdomen: Positive for: Normal Bowel Sounds, Other (Obese). Negative for: Tenderness, Distention, Peritoneal Signs Lower Extremity: Positive for: Normal Inspection Neurological: Positive for: Other (Moves all extremities) Skin: Positive for: Warm, Dry Psychiatric: Positive for: Alert - Medications Active Medications: Active Medications Generic Name Dose Route Start Last Admin Trade Name Freq PRN Reason Stop Dose Admin Acetaminophen 650 mg 01/19/18 00:50 01/27/18 16:05 Tylenol 650mg/20.3ml Solution Ud NG 650 mg Q6 PRN Administration GIVE FOR TEMP. 100*F OR ABOVE Albuterol/Ipratropium 3 ml 01/26/18 20:00 01/31/18 19:28 Duoneb 3 Mg/0.5 Mg (3 Ml) Ud INH Not Given RQ6 [facility] Aspirin 81 mg 01/17/18 10:00 01/31/18 10:53 Aspirin Chewable PO 81 mg DAILY [facility] Administration Carvedilol 12.5 mg 01/22/18 09:07 01/31/18 17:36 Coreg PO 12.5 mg BID [facility] Administration Dextrose 0 ml 01/30/18 10:39 Dextrose 50% Inj IV STAT PRN Hypoglycemia Protocol Protocol Dextrose 0 gm 01/30/18 10:39 Glutose 15 PO ONCE PRN Hypoglycemia Protocol Protocol Glucagon 0 mg 01/30/18 10:39 Glucagen Diagnostic Kit IM STAT PRN Hypoglycemia Protocol Protocol Heparin Sodium (Porcine) 5,000 units 01/17/18 14:00 01/31/18 15:00 Heparin SC 5,000 units Q8 [facility] Administration Hydralazine HCl 75 mg 01/28/18 19:27 01/31/18 15:00 Apresoline PO 75 mg Q8 [facility] Administration Levetiracetam 1,000 mg/ Sodium 110 mls @ 440 mls/hr 01/22/18 10:00 01/31/18 10:46 Chloride IVPB 440 mls/hr Q12H [facility] Administration Dextrose 1,000 mls @ 0 mls/hr 01/30/18 10:39 Dextrose 5% In Water 1000 Ml IV .Q0M PRN Hypoglycemia Protocol Protocol Per Protocol Acyclovir 500 mg/ Sodium 100 mls @ 100 mls/hr 01/31/18 18:00 01/31/18 18:30 Chloride IV 100 mls/hr Q8H [facility] Administration Protocol Vancomycin/Sodium Chloride 1 gm in 200 mls @ 133 mls/hr 01/31/18 19:00 19:00 Vancomycin 1 Gm/Ns 200 Ml IVPB 02/05/18 19:01 133 mls/hr Q12H [facility] Administration Insulin Glargine 30 unit 01/31/18 22:00 Lantus SC HS [facility] Insulin Human Regular 0 unit 01/30/18 12:00 01/31/18 17:53 Novolin R SC 8 unit Q6 [facility] Administration Protocol Pantoprazole Sodium 40 mg 01/21/18 12:00 01/31/18 10:50 Protonix Susp PO 40 mg 1000 [facility] Administration Tamsulosin HCl 0.4 mg 01/30/18 20:00 01/31/18 09:27 Flomax PO Not Given DAILY [facility] - Patient Studies Lab Studies: Lab Studies 01/31/18 01/31/18 01/31/18 Range/Units 17:36 15:49 15:40 WBC (4.8-10.8) K/uL RBC (4.40-5.90) Mil/uL Hgb (12.0-18.0) g/dL Hct (35.0-51.0) % MCV (80.0-94.0) fL MCH (27.0-31.0) pg MCHC (33.0-37.0) g/dL RDW (11.5-14.5) % Plt Count (130-400) K/uL MPV (7.2-11.7) fL Neut % (Auto) (50.0-75.0) % Lymph % (Auto) (20.0-40.0) % [place] % (Auto) (0.0-10.0) % Eos % (Auto) (0.0-4.0) % Baso % (Auto) (0.0-2.0) % Neut # (Auto) (1.8-7.0) K/uL Lymph # (Auto) (1.0-4.3) K/uL [place] # (Auto) (0.0-0.8) K/uL Eos # (Auto) (0.0-0.7) K/uL Baso # (Auto) (0.0-0.2) K/uL Puncture Site Lba pCO2 46 H (35-45) mm/Hg pO2 82 (80-100) mm/Hg HCO3 29.1 H (21-28) mmol/L ABG pH 7.43 (7.35-7.45) ABG Total CO2 31.9 H (22-28) mmol/L ABG O2 Saturation 97.6 (95-98) % ABG Base Excess 5.4 H (-2.0-3.0) mmol/L ABG Hemoglobin 11.8 (11.7-17.4) g/dL ABG Carboxyhemoglobin 1.7 H (0.5-1.5) % POC ABG HHb (Measured) 2.3 (0.0-5.0) % ABG Methemoglobin 1.3 (0.0-3.0) % Jamey Test Pos A-a O2 Difference 60.0 mm/Hg Respiratory Index 0.7 Hgb O2 Saturation 94.8 L (95.0-98.0) % Vent Mode FiO2 28.0 % Inspiratory BiPAP Expiratory BiPAP Sodium (132-148) mmol/L Potassium (3.6-5.2) mmol/L Chloride (98-107) mmol/L Carbon Dioxide (22-30) mmol/L Anion Gap (10-20) BUN (9-20) mg/dL Creatinine (0.8-1.5) mg/dL Est GFR ( Amer) Est GFR (Non-Af Amer) POC Glucose (mg/dL) 325 H (65-110) mg/dL Random Glucose (75-110) mg/dL Calcium (8.6-10.4) mg/dl Phosphorus (2.5-4.5) mg/dL Magnesium (1.6-2.3) mg/dL Total Bilirubin (0.2-1.3) mg/dL AST (17-59) U/L ALT (21-72) U/L Alkaline Phosphatase (38-126) U/L Total Protein (6.3-8.3) g/dL Albumin (3.5-5.0) g/dL Globulin (2.2-3.9) gm/dL Albumin/Globulin Ratio (1.0-2.1) Urine Color Yellow (YELLOW) Urine Clarity Clear (Clear) Urine pH 5.0 (5.0-8.0) Ur Specific [place] 1.023 (1.003-1.030) Urine Protein 1+ H (NEGATIVE) mg/dL Urine Glucose (UA) 3+ H (Normal) mg/dL Urine Ketones Trace (NEGATIVE) mg/dL Urine Blood Negative (NEGATIVE) Urine Nitrate Negative (NEGATIVE) Urine Bilirubin Negative (NEGATIVE) Urine Urobilinogen Normal (0.2-1.0) mg/dL Ur Leukocyte Esterase Neg (Negative) Minh/uL Urine WBC (Auto) 2 (0-5) /hpf Urine RBC (Auto) 2 (0-3) /hpf Urine Bacteria Occ H (<OCC) Urine Yeast (Budding) Occ H (NEGATIVE) /hpf 01/31/18 01/31/18 01/31/18 Range/Units 11:39 06:10 06:10 WBC 9.1 (4.8-10.8) K/uL RBC 3.76 L (4.40-5.90) Mil/uL Hgb 11.9 L (12.0-18.0) g/dL Hct 34.0 L (35.0-51.0) % MCV 90.5 (80.0-94.0) fL MCH 31.6 H (27.0-31.0) pg MCHC 34.9 (33.0-37.0) g/dL RDW 12.2 (11.5-14.5) % Plt Count 310 (130-400) K/uL MPV 10.9 (7.2-11.7) fL Neut % (Auto) 85.4 H (50.0-75.0) % Lymph % (Auto) 10.2 L (20.0-40.0) % [place] % (Auto) 4.0 (0.0-10.0) % Eos % (Auto) 0.3 (0.0-4.0) % Baso % (Auto) 0.1 (0.0-2.0) % Neut # (Auto) 7.7 H (1.8-7.0) K/uL Lymph # (Auto) 0.9 L (1.0-4.3) K/uL [place] # (Auto) 0.4 (0.0-0.8) K/uL Eos # (Auto) 0.0 (0.0-0.7) K/uL Baso # (Auto) 0.0 (0.0-0.2) K/uL Puncture Site pCO2 (35-45) mm/Hg pO2 (80-100) mm/Hg HCO3 (21-28) mmol/L ABG pH (7.35-7.45) ABG Total CO2 (22-28) mmol/L ABG O2 Saturation (95-98) % ABG Base Excess (-2.0-3.0) mmol/L ABG Hemoglobin (11.7-17.4) g/dL ABG Carboxyhemoglobin (0.5-1.5) % POC ABG HHb (Measured) (0.0-5.0) % ABG Methemoglobin (0.0-3.0) % Jamey Test A-a O2 Difference mm/Hg Respiratory Index Hgb O2 Saturation (95.0-98.0) % Vent Mode FiO2 % Inspiratory BiPAP Expiratory BiPAP Sodium 143 (132-148) mmol/L Potassium 4.6 (3.6-5.2) mmol/L Chloride 106 (98-107) mmol/L Carbon Dioxide 27 (22-30) mmol/L Anion Gap 14 (10-20) BUN 40 H (9-20) mg/dL Creatinine 1.0 (0.8-1.5) mg/dL Est GFR ( Amer) > 60 Est GFR (Non-Af Amer) > 60 POC Glucose (mg/dL) 330 H (65-110) mg/dL Random Glucose 329 H (75-110) mg/dL Calcium 8.5 L (8.6-10.4) mg/dl Phosphorus 4.4 (2.5-4.5) mg/dL Magnesium 2.6 H (1.6-2.3) mg/dL Total Bilirubin 0.6 (0.2-1.3) mg/dL AST 52 (17-59) U/L ALT 84 H (21-72) U/L Alkaline Phosphatase 100 (38-126) U/L Total Protein 6.0 L (6.3-8.3) g/dL Albumin 2.9 L (3.5-5.0) g/dL Globulin 3.1 (2.2-3.9) gm/dL Albumin/Globulin Ratio 0.9 L (1.0-2.1) Urine Color (YELLOW) Urine Clarity (Clear) Urine pH (5.0-8.0) Ur Specific [place] (1.003-1.030) Urine Protein (NEGATIVE) mg/dL Urine Glucose (UA) (Normal) mg/dL Urine Ketones (NEGATIVE) mg/dL Urine Blood (NEGATIVE) Urine Nitrate (NEGATIVE) Urine Bilirubin (NEGATIVE) Urine Urobilinogen (0.2-1.0) mg/dL Ur Leukocyte Esterase (Negative) Minh/uL Urine WBC (Auto) (0-5) /hpf Urine RBC (Auto) (0-3) /hpf Urine Bacteria (<OCC) Urine Yeast (Budding) (NEGATIVE) /hpf 01/31/18 01/31/18 01/30/18 Range/Units 05:36 05:20 23:32 WBC (4.8-10.8) K/uL RBC (4.40-5.90) Mil/uL Hgb (12.0-18.0) g/dL Hct (35.0-51.0) % MCV (80.0-94.0) fL MCH (27.0-31.0) pg MCHC (33.0-37.0) g/dL RDW (11.5-14.5) % Plt Count (130-400) K/uL MPV (7.2-11.7) fL Neut % (Auto) (50.0-75.0) % Lymph % (Auto) (20.0-40.0) % [place] % (Auto) (0.0-10.0) % Eos % (Auto) (0.0-4.0) % Baso % (Auto) (0.0-2.0) % Neut # (Auto) (1.8-7.0) K/uL Lymph # (Auto) (1.0-4.3) K/uL [place] # (Auto) (0.0-0.8) K/uL Eos # (Auto) (0.0-0.7) K/uL Baso # (Auto) (0.0-0.2) K/uL Puncture Site Rb pCO2 51 H (35-45) mm/Hg pO2 125 H (80-100) mm/Hg HCO3 28.1 H (21-28) mmol/L ABG pH 7.38 (7.35-7.45) ABG Total CO2 31.8 H (22-28) mmol/L ABG O2 Saturation 99.0 H (95-98) % ABG Base Excess 4.1 H (-2.0-3.0) mmol/L ABG Hemoglobin 12.1 (11.7-17.4) g/dL ABG Carboxyhemoglobin 1.5 (0.5-1.5) % POC ABG HHb (Measured) 1.0 (0.0-5.0) % ABG Methemoglobin 0.9 (0.0-3.0) % Jamey Test Na A-a O2 Difference 168.0 mm/Hg Respiratory Index 1.3 Hgb O2 Saturation 96.6 (95.0-98.0) % Vent Mode Bipap FiO2 50.0 % Inspiratory BiPAP 12 Expiratory BiPAP 6 Sodium (132-148) mmol/L Potassium (3.6-5.2) mmol/L Chloride (98-107) mmol/L Carbon Dioxide (22-30) mmol/L Anion Gap (10-20) BUN (9-20) mg/dL Creatinine (0.8-1.5) mg/dL Est GFR ( Amer) Est GFR (Non-Af Amer) POC Glucose (mg/dL) 329 H 303 H (65-110) mg/dL Random Glucose (75-110) mg/dL Calcium (8.6-10.4) mg/dl Phosphorus (2.5-4.5) mg/dL Magnesium (1.6-2.3) mg/dL Total Bilirubin (0.2-1.3) mg/dL AST (17-59) U/L ALT (21-72) U/L Alkaline Phosphatase (38-126) U/L Total Protein (6.3-8.3) g/dL Albumin (3.5-5.0) g/dL Globulin (2.2-3.9) gm/dL Albumin/Globulin Ratio (1.0-2.1) Urine Color (YELLOW) Urine Clarity (Clear) Urine pH (5.0-8.0) Ur Specific [place] (1.003-1.030) Urine Protein (NEGATIVE) mg/dL Urine Glucose (UA) (Normal) mg/dL Urine Ketones (NEGATIVE) mg/dL Urine Blood (NEGATIVE) Urine Nitrate (NEGATIVE) Urine Bilirubin (NEGATIVE) Urine Urobilinogen (0.2-1.0) mg/dL Ur Leukocyte Esterase (Negative) Minh/uL Urine WBC (Auto) (0-5) /hpf Urine RBC (Auto) (0-3) /hpf Urine Bacteria (<OCC) Urine Yeast (Budding) (NEGATIVE) /hpf Laboratory Results - last 24 hr 01/30/18 01/31/18 01/31/18 23:32 05:20 05:36 WBC RBC Hgb Hct MCV MCH MCHC RDW Plt Count MPV Neut % (Auto) Lymph % (Auto) [place] % (Auto) Eos % (Auto) Baso % (Auto) Neut # (Auto) Lymph # (Auto) [place] # (Auto) Eos # (Auto) Baso # (Auto) Puncture Site Rb pCO2 51 H pO2 125 H HCO3 28.1 H ABG pH 7.38 ABG Total CO2 31.8 H ABG O2 Saturation 99.0 H ABG Base Excess 4.1 H ABG Hemoglobin 12.1 ABG Carboxyhemoglobin 1.5 POC ABG HHb (Measured) 1.0 ABG Methemoglobin 0.9 Jamey Test Na A-a O2 Difference 168.0 Respiratory Index 1.3 Hgb O2 Saturation 96.6 Vent Mode Bipap FiO2 50.0 Inspiratory BiPAP 12 Expiratory BiPAP 6 Sodium Potassium Chloride Carbon Dioxide Anion Gap BUN Creatinine Est GFR ( Amer) Est GFR (Non-Af Amer) POC Glucose (mg/dL) 303 H 329 H Random Glucose Calcium Phosphorus Magnesium Total Bilirubin AST ALT Alkaline Phosphatase Total Protein Albumin Globulin Albumin/Globulin Ratio Urine Color Urine Clarity Urine pH Ur Specific [place] Urine Protein Urine Glucose (UA) Urine Ketones Urine Blood Urine Nitrate Urine Bilirubin Urine Urobilinogen Ur Leukocyte Esterase Urine WBC (Auto) Urine RBC (Auto) Urine Bacteria Urine Yeast (Budding) 01/31/18 01/31/18 01/31/18 06:10 06:10 11:39 WBC 9.1 RBC 3.76 L Hgb 11.9 L Hct 34.0 L MCV 90.5 MCH 31.6 H MCHC 34.9 RDW 12.2 Plt Count 310 MPV 10.9 Neut % (Auto) 85.4 H Lymph % (Auto) 10.2 L [place] % (Auto) 4.0 Eos % (Auto) 0.3 Baso % (Auto) 0.1 Neut # (Auto) 7.7 H Lymph # (Auto) 0.9 L [place] # (Auto) 0.4 Eos # (Auto) 0.0 Baso # (Auto) 0.0 Puncture Site pCO2 pO2 HCO3 ABG pH ABG Total CO2 ABG O2 Saturation ABG Base Excess ABG Hemoglobin ABG Carboxyhemoglobin POC ABG HHb (Measured) ABG Methemoglobin Jamey Test A-a O2 Difference Respiratory Index Hgb O2 Saturation Vent Mode FiO2 Inspiratory BiPAP Expiratory BiPAP Sodium 143 Potassium 4.6 Chloride 106 Carbon Dioxide 27 Anion Gap 14 BUN 40 H Creatinine 1.0 Est GFR ( Amer) > 60 Est GFR (Non-Af Amer) > 60 POC Glucose (mg/dL) 330 H Random Glucose 329 H Calcium 8.5 L Phosphorus 4.4 Magnesium 2.6 H Total Bilirubin 0.6 AST 52 ALT 84 H Alkaline Phosphatase 100 Total Protein 6.0 L Albumin 2.9 L Globulin 3.1 Albumin/Globulin Ratio 0.9 L Urine Color Urine Clarity Urine pH Ur Specific [place] Urine Protein Urine Glucose (UA) Urine Ketones Urine Blood Urine Nitrate Urine Bilirubin Urine Urobilinogen Ur Leukocyte Esterase Urine WBC (Auto) Urine RBC (Auto) Urine Bacteria Urine Yeast (Budding) 01/31/18 01/31/18 01/31/18 15:40 15:49 17:36 WBC RBC Hgb Hct MCV MCH MCHC RDW Plt Count MPV Neut % (Auto) Lymph % (Auto) [place] % (Auto) Eos % (Auto) Baso % (Auto) Neut # (Auto) Lymph # (Auto) [place] # (Auto) Eos # (Auto) Baso # (Auto) Puncture Site Lba pCO2 46 H pO2 82 HCO3 29.1 H ABG pH 7.43 ABG Total CO2 31.9 H ABG O2 Saturation 97.6 ABG Base Excess 5.4 H ABG Hemoglobin 11.8 ABG Carboxyhemoglobin 1.7 H POC ABG HHb (Measured) 2.3 ABG Methemoglobin 1.3 Jamey Test Pos A-a O2 Difference 60.0 Respiratory Index 0.7 Hgb O2 Saturation 94.8 L Vent Mode FiO2 28.0 Inspiratory BiPAP Expiratory BiPAP Sodium Potassium Chloride Carbon Dioxide Anion Gap BUN Creatinine Est GFR ( Amer) Est GFR (Non-Af Amer) POC Glucose (mg/dL) 325 H Random Glucose Calcium Phosphorus Magnesium Total Bilirubin AST ALT Alkaline Phosphatase Total Protein Albumin Globulin Albumin/Globulin Ratio Urine Color Yellow Urine Clarity Clear Urine pH 5.0 Ur Specific [place] 1.023 Urine Protein 1+ H Urine Glucose (UA) 3+ H Urine Ketones Trace Urine Blood Negative Urine Nitrate Negative Urine Bilirubin Negative Urine Urobilinogen Normal Ur Leukocyte Esterase Neg Urine WBC (Auto) 2 Urine RBC (Auto) 2 Urine Bacteria Occ H Urine Yeast (Budding) Occ H Fingerstick Blood Sugar Results: 325 Assessment/Plan - Assessment and Plan (Free Text) Assessment: MRI results conveyed to Neurologist Dr Baldwin.recommended Depakote 500mg one dose and EEG
[2018-01-31] MEDS: (Lantus) Insulin Glargine, Recombinant SC SCH (22:13)
--- NOTE | 2018-01-31 23:26 | CP.PCM.PN ---
Subjective - Date & Time of Evaluation Date of Evaluation: 01/31/18 Time of Evaluation: 18:45 - Subjective Subjective: pt seen and examined at bedside, remains extubated, on physical therapy, breathing on his own, improving Objective - Vital Signs/Intake and Output Vital Signs (last 24 hours): Temp Pulse Resp BP Pulse Ox 99.2 F 73 21 121/60 98 01/31/18 16:00 01/31/18 21:26 01/31/18 21:26 01/31/18 21:26 01/31/18 21:26 Intake and Output: 01/31/18 02/01/18 18:59 06:59 Intake Total 310 Output Total 1900 Balance -1590 - Medications Medications: Current Medications Acetaminophen (Tylenol 650mg/20.3ml Solution Ud) 650 mg NG Q6 PRN PRN Reason: GIVE FOR TEMP. 100*F OR ABOVE Last Admin: 01/27/18 16:05 Dose: 650 mg Albuterol/Ipratropium (Duoneb 3 Mg/0.5 Mg (3 Ml) Ud) 3 ml INH RQ6 [facility] Last Admin: 01/31/18 19:28 Dose: Not Given Aspirin (Aspirin Chewable) 81 mg PO DAILY [facility] Last Admin: 01/31/18 10:53 Dose: 81 mg Carvedilol (Coreg) 12.5 mg PO BID [facility] Last Admin: 01/31/18 17:36 Dose: 12.5 mg Dextrose (Dextrose 50% Inj) 0 ml IV STAT PRN; Protocol PRN Reason: Hypoglycemia Protocol Dextrose (Glutose 15) 0 gm PO ONCE PRN; Protocol PRN Reason: Hypoglycemia Protocol Glucagon (Glucagen Diagnostic Kit) 0 mg IM STAT PRN; Protocol PRN Reason: Hypoglycemia Protocol Heparin Sodium (Porcine) (Heparin) 5,000 units SC Q8 [facility] Last Admin: 01/31/18 22:12 Dose: 5,000 units Hydralazine HCl (Apresoline) 75 mg PO Q8 [facility] Last Admin: 01/31/18 22:12 Dose: 75 mg Levetiracetam 1,000 mg/ Sodium (Chloride) 110 mls @ 440 mls/hr IVPB Q12H [facility] Last Admin: 01/31/18 22:30 Dose: 440 mls/hr Dextrose (Dextrose 5% In Water 1000 Ml) 1,000 mls @ 0 mls/hr IV .Q0M PRN; Protocol; Per Protocol PRN Reason: Hypoglycemia Protocol Acyclovir 500 mg/ Sodium (Chloride) 100 mls @ 100 mls/hr IV Q8H [facility] PRN Reason: Protocol Last Admin: 01/31/18 18:30 Dose: 100 mls/hr Vancomycin/Sodium Chloride (Vancomycin 1 Gm/Ns 200 Ml) 1 gm in 200 mls @ 133 mls/hr IVPB Q12H [facility] Stop: 02/05/18 19:01 Last Admin: 01/31/18 19:00 Dose: 133 mls/hr Insulin Glargine (Lantus) 30 unit SC HS [facility] Last Admin: 01/31/18 22:13 Dose: 30 u Insulin Human Regular (Novolin R) 0 unit SC Q6 [facility] PRN Reason: Protocol Last Admin: 01/31/18 17:53 Dose: 8 unit Pantoprazole Sodium (Protonix Susp) 40 mg PO 1000 [facility] Last Admin: 01/31/18 10:50 Dose: 40 mg Tamsulosin HCl (Flomax) 0.4 mg PO DAILY [facility] Last Admin: 01/31/18 09:27 Dose: Not Given - Labs Labs: 01/31/18 06:10 01/31/18 06:10 PT 10.6 SECONDS (9.7-12.2) 01/16/18 12:27 INR 0.9 01/16/18 12:27 APTT 33 SECONDS (21-34) 01/16/18 12:27 - Constitutional Appears: No Acute Distress, Chronically Ill - ENT Exam ENT Exam: Mucous Membranes Moist, Normal Exam - Neck Exam Neck Exam: Full ROM, Normal Inspection. absent: Lymphadenopathy - Respiratory Exam Respiratory Exam: Clear to Ausculation Bilateral, NORMAL BREATHING PATTERN - Cardiovascular Exam Cardiovascular Exam: REGULAR RHYTHM, +S1, +S2. absent: Murmur - GI/Abdominal Exam GI & Abdominal Exam: Soft, Normal Bowel Sounds. absent: Tenderness Assessment and Plan (1) Status epilepticus Status: Acute (2) COPD (chronic obstructive pulmonary disease) Status: Acute (3) Congestive heart failure Status: Acute (4) Diabetes Status: Acute (5) Hypernatremia Status: Acute
[2018-02-01] MEDS: (Novolin R) Insulin Human Regular 100 units/ml vial SC SCH ×4 (00:30→17:51)
[2018-02-01] MEDS: Albuterol-Ipratrop 3 mg / 0.5 (3 ml) UD INH SCH ×4 (01:14→20:26)
[2018-02-01] MEDS: Acyclovir 500 MG in Sodium Chloride 0.9% 100 ML IV SCH ×3 (02:00→17:07)
[2018-02-01 06:27] LABS: BASO % 0.2 % (0.0-2.0); EOS % 0.2 % (0.0-4.0); HEMOGLOBIN 11.7 g/dL (12.0-18.0); LYMPH # 1.7 K/uL (1.0-4.3); LYMPH % 22.1 % (20.0-40.0); MEAN CELL VOLUME 91.8 fL (80.0-94.0); MEAN CORPUSCULAR HEMOGLOBIN 31.1 pg (27.0-31.0); MEAN CORPUSCULAR HGB CONC 33.9 g/dL (33.0-37.0); MEAN PLATELET VOLUME 10.4 fL (7.2-11.7); MONO # 0.6 K/uL (0.0-0.8); MONO % 8.2 % (0.0-10.0); NEUT # 5.2 K/uL (1.8-7.0); NEUT % 69.3 % (50.0-75.0); RBC 3.75 Mil/uL (4.40-5.90); RED CELL DISTRIBUTION WIDTH 12.2 % (11.5-14.5); WHITE BLOOD COUNT 7.5 K/uL (4.8-10.8)
[2018-02-01] MEDS: Vancomycin 1 gm/NS 200 ml 1 GM/200 ML BAG IVPB SCH ×2 (06:30→18:00)
--- NOTE | 2018-02-01 06:33 | CP.PCM.PN ---
Subjective - Date & Time of Evaluation Date of Evaluation: 02/01/18 Time of Evaluation: 06:29 - Subjective Subjective: was seen and examined at the bedside in ICU. He refused to participate during assessment. He is nasal cannula saturating at 100%. He moves his upper extremities spontaneously with minimal movement of the lower extremities. He is able to open his eyes with tactile stimuli. According to staff, patient was able to follow commands earlier, but unable to follow during assessment. CT scan of the head done 01/31/2018 showed no evidence of acute intracranial hemorrhage. 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 Moderate diffuse/ confluent chronic white matter ischemic changes. Multiple chronic bilateral basal nuclei coronal radiata lacunar type infarts.There was no untoward events overnight. Objective - Vital Signs/Intake and Output Vital Signs (last 24 hours): Temp Pulse Resp BP Pulse Ox 98.2 F 71 17 115/58 L 93 L 02/01/18 00:00 02/01/18 03:27 02/01/18 03:27 02/01/18 03:27 02/01/18 03:27 Intake and Output: 01/31/18 02/01/18 18:59 06:59 Intake Total 310 330 Output Total 1900 510 Balance -1590 -180 - Medications Medications: Current Medications Acetaminophen (Tylenol 650mg/20.3ml Solution Ud) 650 mg NG Q6 PRN PRN Reason: GIVE FOR TEMP. 100*F OR ABOVE Last Admin: 01/27/18 16:05 Dose: 650 mg Albuterol/Ipratropium (Duoneb 3 Mg/0.5 Mg (3 Ml) Ud) 3 ml INH RQ6 [facility] Last Admin: 02/01/18 01:14 Dose: 3 ml Aspirin (Aspirin Chewable) 81 mg PO DAILY [facility] Last Admin: 01/31/18 10:53 Dose: 81 mg Carvedilol (Coreg) 12.5 mg PO BID [facility] Last Admin: 01/31/18 17:36 Dose: 12.5 mg Dextrose (Dextrose 50% Inj) 0 ml IV STAT PRN; Protocol PRN Reason: Hypoglycemia Protocol Dextrose (Glutose 15) 0 gm PO ONCE PRN; Protocol PRN Reason: Hypoglycemia Protocol Glucagon (Glucagen Diagnostic Kit) 0 mg IM STAT PRN; Protocol PRN Reason: Hypoglycemia Protocol Heparin Sodium (Porcine) (Heparin) 5,000 units SC Q8 [facility] Last Admin: 01/31/18 22:12 Dose: 5,000 units Hydralazine HCl (Apresoline) 75 mg PO Q8 [facility] Last Admin: 01/31/18 22:12 Dose: 75 mg Levetiracetam 1,000 mg/ Sodium (Chloride) 110 mls @ 440 mls/hr IVPB Q12H [facility] Last Admin: 01/31/18 22:30 Dose: 440 mls/hr Dextrose (Dextrose 5% In Water 1000 Ml) 1,000 mls @ 0 mls/hr IV .Q0M PRN; Protocol; Per Protocol PRN Reason: Hypoglycemia Protocol Acyclovir 500 mg/ Sodium (Chloride) 100 mls @ 100 mls/hr IV Q8H [facility] PRN Reason: Protocol Last Admin: 01/31/18 18:30 Dose: 100 mls/hr Vancomycin/Sodium Chloride (Vancomycin 1 Gm/Ns 200 Ml) 1 gm in 200 mls @ 133 mls/hr IVPB Q12H [facility] Stop: 02/05/18 19:01 Last Admin: 01/31/18 19:00 Dose: 133 mls/hr Insulin Glargine (Lantus) 30 unit SC HS [facility] Last Admin: 01/31/18 22:13 Dose: 30 u Insulin Human Regular (Novolin R) 0 unit SC Q6 [facility] PRN Reason: Protocol Last Admin: 02/01/18 00:30 Dose: Not Given Pantoprazole Sodium (Protonix Susp) 40 mg PO 1000 [facility] Last Admin: 01/31/18 10:50 Dose: 40 mg Tamsulosin HCl (Flomax) 0.4 mg PO DAILY [facility] Last Admin: 01/31/18 09:27 Dose: Not Given - Labs Labs: 01/31/18 06:10 01/31/18 06:10 PT 10.6 SECONDS (9.7-12.2) 01/16/18 12:27 INR 0.9 01/16/18 12:27 APTT 33 SECONDS (21-34) 01/16/18 12:27 - Constitutional Appears: No Acute Distress - Head Exam Head Exam: NORMAL INSPECTION - Neurological Exam Neurological Exam: Awake Neuro motor strength exam: Left Upper Extremity: 4, Right Upper Extremity: 4, Left Lower Extremity: 0, Right Lower Extremity: 0 Additional comments: Neurological improved from previous examination. He is able open his eyes spontaneously with tactile stimuli. Assessment and Plan (1) Status epilepticus Assessment & Plan: Case discussed with Dr. Baldwin, continue all current medical regimen. Pending MRI results. Follow up EEG Status: Acute
[2018-02-01 06:34] LABS: ALB/GLOB RATIO 0.9 (1.0-2.1); ALBUMIN 2.9 g/dL (3.5-5.0); ALT/SGPT 68 U/L (21-72); AST/SGOT 45 U/L (17-59); BLOOD UREA NITROGEN 38 mg/dL (9-20); CALCIUM 8.7 mg/dl (8.6-10.4); GFR AFRICAN-AMERICAN > 60; GFR NON-AFRICAN AMERICAN > 60
--- NOTE | 2018-02-01 07:14 | CP.CCUPN ---
CCU Subjective - Physician Review Subjective (Free Text): 02/01/18 07:14 Patient seen and examined at bedside. CCU Objective - Vital Signs / Intake & Output Vital Signs (Last 4 hours): Vital Signs Pulse Resp BP Pulse Ox 02/01/18 03:27 71 17 115/58 L 93 L Intake and Output (Last 8hrs): Intake & Output 01/31/18 02/01/18 02/01/18 22:59 06:59 14:59 Intake Total 240 210 Output Total 895 315 Balance -655 -105 Intake: Tube Feeding 240 210 Output: Urine 895 315 Urethral (Stanley) 895 315 - Physical Exam Head: Positive for: Atraumatic, Normocephalic Pupils: Positive for: PERRL Conjunctiva: Positive for: Normal Mouth: Positive for: Moist Mucous Membranes Neck: Positive for: Normal Range of Motion Respiratory/Chest: Positive for: Clear to Auscultation, Tachypneic. Negative for: Respiratory Distress Cardiovascular: Positive for: Regular Rate and Rhythm, Normal S1, S2. Negative for: Tachycardic Abdomen: Positive for: Normal Bowel Sounds, Other (Obese). Negative for: Tenderness, Distention, Peritoneal Signs Lower Extremity: Positive for: Normal Inspection Neurological: Positive for: Other (Moves all extremities) Skin: Positive for: Warm, Dry Psychiatric: Positive for: Alert - Medications Active Medications: Active Medications Generic Name Dose Route Start Last Admin Trade Name Freq PRN Reason Stop Dose Admin Acetaminophen 650 mg 01/19/18 00:50 01/27/18 16:05 Tylenol 650mg/20.3ml Solution Ud NG 650 mg Q6 PRN Administration GIVE FOR TEMP. 100*F OR ABOVE Albuterol/Ipratropium 3 ml 01/26/18 20:00 02/01/18 01:14 Duoneb 3 Mg/0.5 Mg (3 Ml) Ud INH 3 ml RQ6 [facility] Administration Aspirin 81 mg 01/17/18 10:00 01/31/18 10:53 Aspirin Chewable PO 81 mg DAILY [facility] Administration Carvedilol 12.5 mg 01/22/18 09:07 01/31/18 17:36 Coreg PO 12.5 mg BID [facility] Administration Dextrose 0 ml 01/30/18 10:39 Dextrose 50% Inj IV STAT PRN Hypoglycemia Protocol Protocol Dextrose 0 gm 01/30/18 10:39 Glutose 15 PO ONCE PRN Hypoglycemia Protocol Protocol Glucagon 0 mg 01/30/18 10:39 Glucagen Diagnostic Kit IM STAT PRN Hypoglycemia Protocol Protocol Heparin Sodium (Porcine) 5,000 units 01/17/18 14:00 02/01/18 06:30 Heparin SC 5,000 units Q8 [facility] Administration Hydralazine HCl 75 mg 01/28/18 19:27 02/01/18 06:30 Apresoline PO 75 mg Q8 [facility] Administration Levetiracetam 1,000 mg/ Sodium 110 mls @ 440 mls/hr 01/22/18 10:00 01/31/18 22:30 Chloride IVPB 440 mls/hr Q12H [facility] Administration Dextrose 1,000 mls @ 0 mls/hr 01/30/18 10:39 Dextrose 5% In Water 1000 Ml IV .Q0M PRN Hypoglycemia Protocol Protocol Per Protocol Acyclovir 500 mg/ Sodium 100 mls @ 100 mls/hr 01/31/18 18:00 02/01/18 02:00 Chloride IV 100 mls/hr Q8H [facility] Administration Protocol Vancomycin/Sodium Chloride 1 gm in 200 mls @ 133 mls/hr 01/31/18 19:00 06:30 Vancomycin 1 Gm/Ns 200 Ml IVPB 02/05/18 19:01 133 mls/hr Q12H [facility] Administration Insulin Glargine 30 unit 01/31/18 22:00 01/31/18 22:13 Lantus SC 30 u HS [facility] Administration Insulin Human Regular 0 unit 01/30/18 12:00 02/01/18 06:30 Novolin R SC Not Given Q6 [facility] Protocol Pantoprazole Sodium 40 mg 01/21/18 12:00 01/31/18 10:50 Protonix Susp PO 40 mg 1000 [facility] Administration Tamsulosin HCl 0.4 mg 01/30/18 20:00 01/31/18 09:27 Flomax PO Not Given DAILY [facility] - Patient Studies Lab Studies: Lab Studies 02/01/18 02/01/18 02/01/18 Range/Units 06:12 06:10 06:10 WBC 7.5 (4.8-10.8) K/uL RBC 3.75 L (4.40-5.90) Mil/uL Hgb 11.7 L (12.0-18.0) g/dL Hct 34.4 L (35.0-51.0) % MCV 91.8 (80.0-94.0) fL MCH 31.1 H (27.0-31.0) pg MCHC 33.9 (33.0-37.0) g/dL RDW 12.2 (11.5-14.5) % Plt Count 321 (130-400) K/uL MPV 10.4 (7.2-11.7) fL Neut % (Auto) 69.3 (50.0-75.0) % Lymph % (Auto) 22.1 (20.0-40.0) % [place] % (Auto) 8.2 (0.0-10.0) % Eos % (Auto) 0.2 (0.0-4.0) % Baso % (Auto) 0.2 (0.0-2.0) % Neut # (Auto) 5.2 (1.8-7.0) K/uL Lymph # (Auto) 1.7 (1.0-4.3) K/uL [place] # (Auto) 0.6 (0.0-0.8) K/uL Eos # (Auto) 0.0 (0.0-0.7) K/uL Baso # (Auto) 0.0 (0.0-0.2) K/uL Puncture Site pCO2 (35-45) mm/Hg pO2 (80-100) mm/Hg HCO3 (21-28) mmol/L ABG pH (7.35-7.45) ABG Total CO2 (22-28) mmol/L ABG O2 Saturation (95-98) % ABG Base Excess (-2.0-3.0) mmol/L ABG Hemoglobin (11.7-17.4) g/dL ABG Carboxyhemoglobin (0.5-1.5) % POC ABG HHb (Measured) (0.0-5.0) % ABG Methemoglobin (0.0-3.0) % Jamey Test A-a O2 Difference mm/Hg Respiratory Index Hgb O2 Saturation (95.0-98.0) % FiO2 % Sodium 151 H (132-148) mmol/L Potassium 3.8 (3.6-5.2) mmol/L Chloride 110 H (98-107) mmol/L Carbon Dioxide 31 H (22-30) mmol/L Anion Gap 14 (10-20) BUN 38 H (9-20) mg/dL Creatinine 1.1 (0.8-1.5) mg/dL Est GFR ( Amer) > 60 Est GFR (Non-Af Amer) > 60 POC Glucose (mg/dL) (65-110) mg/dL Random Glucose 171 H (75-110) mg/dL Calcium 8.7 (8.6-10.4) mg/dl Phosphorus 3.4 (2.5-4.5) mg/dL Magnesium 2.4 H (1.6-2.3) mg/dL Total Bilirubin 0.3 (0.2-1.3) mg/dL AST 45 (17-59) U/L ALT 68 (21-72) U/L Alkaline Phosphatase 100 (38-126) U/L Ammonia 18 (9-33) umol/L Total Protein 6.0 L (6.3-8.3) g/dL Albumin 2.9 L (3.5-5.0) g/dL Globulin 3.1 (2.2-3.9) gm/dL Albumin/Globulin Ratio 0.9 L (1.0-2.1) Urine Color (YELLOW) Urine Clarity (Clear) Urine pH (5.0-8.0) Ur Specific [place] (1.003-1.030) Urine Protein (NEGATIVE) mg/dL Urine Glucose (UA) (Normal) mg/dL Urine Ketones (NEGATIVE) mg/dL Urine Blood (NEGATIVE) Urine Nitrate (NEGATIVE) Urine Bilirubin (NEGATIVE) Urine Urobilinogen (0.2-1.0) mg/dL Ur Leukocyte Esterase (Negative) Minh/uL Urine WBC (Auto) (0-5) /hpf Urine RBC (Auto) (0-3) /hpf Urine Bacteria (<OCC) Urine Yeast (Budding) (NEGATIVE) /hpf 02/01/18 01/31/18 01/31/18 Range/Units 05:55 23:36 17:36 WBC (4.8-10.8) K/uL RBC (4.40-5.90) Mil/uL Hgb (12.0-18.0) g/dL Hct (35.0-51.0) % MCV (80.0-94.0) fL MCH (27.0-31.0) pg MCHC (33.0-37.0) g/dL RDW (11.5-14.5) % Plt Count (130-400) K/uL MPV (7.2-11.7) fL Neut % (Auto) (50.0-75.0) % Lymph % (Auto) (20.0-40.0) % [place] % (Auto) (0.0-10.0) % Eos % (Auto) (0.0-4.0) % Baso % (Auto) (0.0-2.0) % Neut # (Auto) (1.8-7.0) K/uL Lymph # (Auto) (1.0-4.3) K/uL [place] # (Auto) (0.0-0.8) K/uL Eos # (Auto) (0.0-0.7) K/uL Baso # (Auto) (0.0-0.2) K/uL Puncture Site pCO2 (35-45) mm/Hg pO2 (80-100) mm/Hg HCO3 (21-28) mmol/L ABG pH (7.35-7.45) ABG Total CO2 (22-28) mmol/L ABG O2 Saturation (95-98) % ABG Base Excess (-2.0-3.0) mmol/L ABG Hemoglobin (11.7-17.4) g/dL ABG Carboxyhemoglobin (0.5-1.5) % POC ABG HHb (Measured) (0.0-5.0) % ABG Methemoglobin (0.0-3.0) % Jamey Test A-a O2 Difference mm/Hg Respiratory Index Hgb O2 Saturation (95.0-98.0) % FiO2 % Sodium (132-148) mmol/L Potassium (3.6-5.2) mmol/L Chloride (98-107) mmol/L Carbon Dioxide (22-30) mmol/L Anion Gap (10-20) BUN (9-20) mg/dL Creatinine (0.8-1.5) mg/dL Est GFR ( Amer) Est GFR (Non-Af Amer) POC Glucose (mg/dL) 174 H 242 H 325 H (65-110) mg/dL Random Glucose (75-110) mg/dL Calcium (8.6-10.4) mg/dl Phosphorus (2.5-4.5) mg/dL Magnesium (1.6-2.3) mg/dL Total Bilirubin (0.2-1.3) mg/dL AST (17-59) U/L ALT (21-72) U/L Alkaline Phosphatase (38-126) U/L Ammonia (9-33) umol/L Total Protein (6.3-8.3) g/dL Albumin (3.5-5.0) g/dL Globulin (2.2-3.9) gm/dL Albumin/Globulin Ratio (1.0-2.1) Urine Color (YELLOW) Urine Clarity (Clear) Urine pH (5.0-8.0) Ur Specific [place] (1.003-1.030) Urine Protein (NEGATIVE) mg/dL Urine Glucose (UA) (Normal) mg/dL Urine Ketones (NEGATIVE) mg/dL Urine Blood (NEGATIVE) Urine Nitrate (NEGATIVE) Urine Bilirubin (NEGATIVE) Urine Urobilinogen (0.2-1.0) mg/dL Ur Leukocyte Esterase (Negative) Minh/uL Urine WBC (Auto) (0-5) /hpf Urine RBC (Auto) (0-3) /hpf Urine Bacteria (<OCC) Urine Yeast (Budding) (NEGATIVE) /hpf 01/31/18 01/31/18 01/31/18 Range/Units 15:49 15:40 11:39 WBC (4.8-10.8) K/uL RBC (4.40-5.90) Mil/uL Hgb (12.0-18.0) g/dL Hct (35.0-51.0) % MCV (80.0-94.0) fL MCH (27.0-31.0) pg MCHC (33.0-37.0) g/dL RDW (11.5-14.5) % Plt Count (130-400) K/uL MPV (7.2-11.7) fL Neut % (Auto) (50.0-75.0) % Lymph % (Auto) (20.0-40.0) % [place] % (Auto) (0.0-10.0) % Eos % (Auto) (0.0-4.0) % Baso % (Auto) (0.0-2.0) % Neut # (Auto) (1.8-7.0) K/uL Lymph # (Auto) (1.0-4.3) K/uL [place] # (Auto) (0.0-0.8) K/uL Eos # (Auto) (0.0-0.7) K/uL Baso # (Auto) (0.0-0.2) K/uL Puncture Site Lba pCO2 46 H (35-45) mm/Hg pO2 82 (80-100) mm/Hg HCO3 29.1 H (21-28) mmol/L ABG pH 7.43 (7.35-7.45) ABG Total CO2 31.9 H (22-28) mmol/L ABG O2 Saturation 97.6 (95-98) % ABG Base Excess 5.4 H (-2.0-3.0) mmol/L ABG Hemoglobin 11.8 (11.7-17.4) g/dL ABG Carboxyhemoglobin 1.7 H (0.5-1.5) % POC ABG HHb (Measured) 2.3 (0.0-5.0) % ABG Methemoglobin 1.3 (0.0-3.0) % Jamey Test Pos A-a O2 Difference 60.0 mm/Hg Respiratory Index 0.7 Hgb O2 Saturation 94.8 L (95.0-98.0) % FiO2 28.0 % Sodium (132-148) mmol/L Potassium (3.6-5.2) mmol/L Chloride (98-107) mmol/L Carbon Dioxide (22-30) mmol/L Anion Gap (10-20) BUN (9-20) mg/dL Creatinine (0.8-1.5) mg/dL Est GFR ( Amer) Est GFR (Non-Af Amer) POC Glucose (mg/dL) 330 H (65-110) mg/dL Random Glucose (75-110) mg/dL Calcium (8.6-10.4) mg/dl Phosphorus (2.5-4.5) mg/dL Magnesium (1.6-2.3) mg/dL Total Bilirubin (0.2-1.3) mg/dL AST (17-59) U/L ALT (21-72) U/L Alkaline Phosphatase (38-126) U/L Ammonia (9-33) umol/L Total Protein (6.3-8.3) g/dL Albumin (3.5-5.0) g/dL Globulin (2.2-3.9) gm/dL Albumin/Globulin Ratio (1.0-2.1) Urine Color Yellow (YELLOW) Urine Clarity Clear (Clear) Urine pH 5.0 (5.0-8.0) Ur Specific [place] 1.023 (1.003-1.030) Urine Protein 1+ H (NEGATIVE) mg/dL Urine Glucose (UA) 3+ H (Normal) mg/dL Urine Ketones Trace (NEGATIVE) mg/dL Urine Blood Negative (NEGATIVE) Urine Nitrate Negative (NEGATIVE) Urine Bilirubin Negative (NEGATIVE) Urine Urobilinogen Normal (0.2-1.0) mg/dL Ur Leukocyte Esterase Neg (Negative) Minh/uL Urine WBC (Auto) 2 (0-5) /hpf Urine RBC (Auto) 2 (0-3) /hpf Urine Bacteria Occ H (<OCC) Urine Yeast (Budding) Occ H (NEGATIVE) /hpf Laboratory Results - last 24 hr 01/31/18 01/31/18 01/31/18 11:39 15:40 15:49 WBC RBC Hgb Hct MCV MCH MCHC RDW Plt Count MPV Neut % (Auto) Lymph % (Auto) [place] % (Auto) Eos % (Auto) Baso % (Auto) Neut # (Auto) Lymph # (Auto) [place] # (Auto) Eos # (Auto) Baso # (Auto) Puncture Site Lba pCO2 46 H pO2 82 HCO3 29.1 H ABG pH 7.43 ABG Total CO2 31.9 H ABG O2 Saturation 97.6 ABG Base Excess 5.4 H ABG Hemoglobin 11.8 ABG Carboxyhemoglobin 1.7 H POC ABG HHb (Measured) 2.3 ABG Methemoglobin 1.3 Jamey Test Pos A-a O2 Difference 60.0 Respiratory Index 0.7 Hgb O2 Saturation 94.8 L FiO2 28.0 Sodium Potassium Chloride Carbon Dioxide Anion Gap BUN Creatinine Est GFR ( Amer) Est GFR (Non-Af Amer) POC Glucose (mg/dL) 330 H Random Glucose Calcium Phosphorus Magnesium Total Bilirubin AST ALT Alkaline Phosphatase Ammonia Total Protein Albumin Globulin Albumin/Globulin Ratio Urine Color Yellow Urine Clarity Clear Urine pH 5.0 Ur Specific [place] 1.023 Urine Protein 1+ H Urine Glucose (UA) 3+ H Urine Ketones Trace Urine Blood Negative Urine Nitrate Negative Urine Bilirubin Negative Urine Urobilinogen Normal Ur Leukocyte Esterase Neg Urine WBC (Auto) 2 Urine RBC (Auto) 2 Urine Bacteria Occ H Urine Yeast (Budding) Occ H 01/31/18 01/31/18 02/01/18 17:36 23:36 05:55 WBC RBC Hgb Hct MCV MCH MCHC RDW Plt Count MPV Neut % (Auto) Lymph % (Auto) [place] % (Auto) Eos % (Auto) Baso % (Auto) Neut # (Auto) Lymph # (Auto) [place] # (Auto) Eos # (Auto) Baso # (Auto) Puncture Site pCO2 pO2 HCO3 ABG pH ABG Total CO2 ABG O2 Saturation ABG Base Excess ABG Hemoglobin ABG Carboxyhemoglobin POC ABG HHb (Measured) ABG Methemoglobin Jamey Test A-a O2 Difference Respiratory Index Hgb O2 Saturation FiO2 Sodium Potassium Chloride Carbon Dioxide Anion Gap BUN Creatinine Est GFR ( Amer) Est GFR (Non-Af Amer) POC Glucose (mg/dL) 325 H 242 H 174 H Random Glucose Calcium Phosphorus Magnesium Total Bilirubin AST ALT Alkaline Phosphatase Ammonia Total Protein Albumin Globulin Albumin/Globulin Ratio Urine Color Urine Clarity Urine pH Ur Specific [place] Urine Protein Urine Glucose (UA) Urine Ketones Urine Blood Urine Nitrate Urine Bilirubin Urine Urobilinogen Ur Leukocyte Esterase Urine WBC (Auto) Urine RBC (Auto) Urine Bacteria Urine Yeast (Budding) 02/01/18 02/01/18 02/01/18 06:10 06:10 06:12 WBC 7.5 RBC 3.75 L Hgb 11.7 L Hct 34.4 L MCV 91.8 MCH 31.1 H MCHC 33.9 RDW 12.2 Plt Count 321 MPV 10.4 Neut % (Auto) 69.3 Lymph % (Auto) 22.1 [place] % (Auto) 8.2 Eos % (Auto) 0.2 Baso % (Auto) 0.2 Neut # (Auto) 5.2 Lymph # (Auto) 1.7 [place] # (Auto) 0.6 Eos # (Auto) 0.0 Baso # (Auto) 0.0 Puncture Site pCO2 pO2 HCO3 ABG pH ABG Total CO2 ABG O2 Saturation ABG Base Excess ABG Hemoglobin ABG Carboxyhemoglobin POC ABG HHb (Measured) ABG Methemoglobin Jamey Test A-a O2 Difference Respiratory Index Hgb O2 Saturation FiO2 Sodium 151 H Potassium 3.8 Chloride 110 H Carbon Dioxide 31 H Anion Gap 14 BUN 38 H Creatinine 1.1 Est GFR ( Amer) > 60 Est GFR (Non-Af Amer) > 60 POC Glucose (mg/dL) Random Glucose 171 H Calcium 8.7 Phosphorus 3.4 Magnesium 2.4 H Total Bilirubin 0.3 AST 45 ALT 68 Alkaline Phosphatase 100 Ammonia 18 Total Protein 6.0 L Albumin 2.9 L Globulin 3.1 Albumin/Globulin Ratio 0.9 L Urine Color Urine Clarity Urine pH Ur Specific [place] Urine Protein Urine Glucose (UA) Urine Ketones Urine Blood Urine Nitrate Urine Bilirubin Urine Urobilinogen Ur Leukocyte Esterase Urine WBC (Auto) Urine RBC (Auto) Urine Bacteria Urine Yeast (Budding) Fingerstick Blood Sugar Results: 174
[2018-02-01] MEDS: levETIRAcetam 1,000 MG in Sodium Chloride 0.9% 100 ML IVPB SCH ×2 (09:15→21:19)
[2018-02-01] MEDS: Pantoprazole 40 mg Susp UD PO SCH (09:16)
--- NOTE | 2018-02-01 15:13 | MRI ---
PROCEDURE: MRI BRAIN WITHOUT CONTRAST HISTORY: ams COMPARISON: None. TECHNIQUE: Multiplanar, multisequence MR images of the brain were obtained without intravenous contrast enhancement. FINDINGS: HEMORRHAGE: None DWI: No definite acute or subacute brain infarction is identified. Trace artifact versus punctate T2 shine through is seen at the inferior left cerebellum only in this series but not in any of the other the long TR weighted sequences, suggestive of an artifact. BRAIN PARENCHYMA: Diffuse cerebral atrophy chronic microangiopathy are reiterated as well as bilateral basal ganglia and left thalamic chronic lacunar infarctions. Relatively prominent dilated perivascular spaces are also identified primarily at the bilateral basal ganglia. Chronic lobar infarction at the right occipital lobe is reiterated as well. No mass effect or suspicious extra-axial fluid collection. Midline brain anatomy appears stable. Posterior fossa contents reflect punctate tiny chronic lacunes. VENTRICLES: Unremarkable. No hydrocephalus. CRANIUM: Unremarkable. ORBITS: Grossly unremarkable. PARANASAL SINUSES/MASTOIDS: [id number] left and limited right mastoid effusions are identified. Mucosal/mucoid inflammatory changes are favored over polyps or cyst at the bilateral maxillary sinuses inferiorly. VASCULAR SYSTEM: Skull base flow voids intact. OTHER FINDINGS: None. IMPRESSION: No definite pattern of an acute or subacute brain infarction. Stable bilateral chronic lacune is are noted as well as right occipital chronic lobar infarction. Age-related neuro degenerative changes are reiterated.
--- NOTE | 2018-02-01 19:41 | CP.PCM.PN ---
Subjective - Date & Time of Evaluation Date of Evaluation: 02/01/18 Time of Evaluation: 08:00 - Subjective Subjective: iv rx reordered cultures reviewed Objective - Vital Signs/Intake and Output Vital Signs (last 24 hours): Temp Pulse Resp BP Pulse Ox 97.6 F 93 H 21 164/76 H 97 02/01/18 16:00 02/01/18 19:00 02/01/18 19:00 02/01/18 18:29 02/01/18 19:00 Intake and Output: 02/01/18 02/02/18 18:59 06:59 Intake Total 1685 Output Total 1855 Balance -170 - Medications Medications: Current Medications Acetaminophen (Tylenol 650mg/20.3ml Solution Ud) 650 mg NG Q6 PRN PRN Reason: GIVE FOR TEMP. 100*F OR ABOVE Last Admin: 01/27/18 16:05 Dose: 650 mg Albuterol/Ipratropium (Duoneb 3 Mg/0.5 Mg (3 Ml) Ud) 3 ml INH RQ6 [facility] Last Admin: 02/01/18 13:24 Dose: 3 ml Aspirin (Aspirin Chewable) 81 mg PO DAILY [facility] Last Admin: 02/01/18 09:16 Dose: 81 mg Carvedilol (Coreg) 12.5 mg PO BID [facility] Last Admin: 02/01/18 17:06 Dose: 12.5 mg Heparin Sodium (Porcine) (Heparin) 5,000 units SC Q8 [facility] Last Admin: 02/01/18 13:11 Dose: 5,000 units Hydralazine HCl (Apresoline) 75 mg PO Q8 [facility] Last Admin: 02/01/18 13:10 Dose: 75 mg Levetiracetam 1,000 mg/ Sodium (Chloride) 110 mls @ 440 mls/hr IVPB Q12H [facility] Last Admin: 02/01/18 09:15 Dose: 440 mls/hr Acyclovir 500 mg/ Sodium (Chloride) 100 mls @ 100 mls/hr IV Q8H [facility] PRN Reason: Protocol Last Admin: 02/01/18 17:07 Dose: 100 mls/hr Vancomycin/Sodium Chloride (Vancomycin 1 Gm/Ns 200 Ml) 1 gm in 200 mls @ 133 mls/hr IVPB Q12H [facility] Stop: 02/05/18 19:01 Last Admin: 02/01/18 18:00 Dose: 133 mls/hr Insulin Glargine (Lantus) 30 unit SC HS [facility] Last Admin: 01/31/18 22:13 Dose: 30 u Insulin Human Regular (Novolin R) 0 unit SC Q6 [facility] PRN Reason: Protocol Last Admin: 02/01/18 17:51 Dose: 4 unit Pantoprazole Sodium (Protonix Susp) 40 mg PO 1000 [facility] Last Admin: 02/01/18 09:16 Dose: 40 mg Tamsulosin HCl (Flomax) 0.4 mg PO DAILY [facility] Last Admin: 02/01/18 09:16 Dose: 0.4 mg - Labs Labs: 02/01/18 06:12 02/01/18 06:10 PT 10.6 SECONDS (9.7-12.2) 01/16/18 12:27 INR 0.9 01/16/18 12:27 APTT 33 SECONDS (21-34) 01/16/18 12:27 Assessment and Plan (1) Sepsis Status: Acute (2) Sepsis Status: Acute (3) COPD (chronic obstructive pulmonary disease) Status: Acute (4) Congestive heart failure Status: Acute (5) Diabetes Status: Acute (6) Encephalopathy Status: Acute
[2018-02-01] MEDS: (Lantus) Insulin Glargine, Recombinant SC SCH (21:16)
--- NOTE | 2018-02-01 23:46 | CP.PCM.PN ---
Subjective - Date & Time of Evaluation Date of Evaluation: 02/01/18 Time of Evaluation: 07:50 - Subjective Subjective: Pt seen and examined today, pt failed swallowing eval, pt is standing with help of assitance and undergoing physical therapy, he had MRI done Objective - Vital Signs/Intake and Output Vital Signs (last 24 hours): Temp Pulse Resp BP Pulse Ox 98.6 F 101 H 10 L 154/72 H 98 02/01/18 20:00 02/01/18 23:00 02/01/18 23:00 02/01/18 20:01 02/01/18 23:00 Intake and Output: 02/01/18 02/02/18 18:59 06:59 Intake Total 1685 40 Output Total 1855 300 Balance -170 -260 - Medications Medications: Current Medications Acetaminophen (Tylenol 650mg/20.3ml Solution Ud) 650 mg NG Q6 PRN PRN Reason: GIVE FOR TEMP. 100*F OR ABOVE Last Admin: 01/27/18 16:05 Dose: 650 mg Albuterol/Ipratropium (Duoneb 3 Mg/0.5 Mg (3 Ml) Ud) 3 ml INH RQ6 [facility] Last Admin: 02/01/18 20:26 Dose: Not Given Aspirin (Aspirin Chewable) 81 mg PO DAILY [facility] Last Admin: 02/01/18 09:16 Dose: 81 mg Carvedilol (Coreg) 12.5 mg PO BID [facility] Last Admin: 02/01/18 17:06 Dose: 12.5 mg Heparin Sodium (Porcine) (Heparin) 5,000 units SC Q8 [facility] Last Admin: 02/01/18 21:17 Dose: 5,000 units Hydralazine HCl (Apresoline) 75 mg PO Q8 [facility] Last Admin: 02/01/18 21:25 Dose: 75 mg Levetiracetam 1,000 mg/ Sodium (Chloride) 110 mls @ 440 mls/hr IVPB Q12H [facility] Last Admin: 02/01/18 21:19 Dose: 440 mls/hr Acyclovir 500 mg/ Sodium (Chloride) 100 mls @ 100 mls/hr IV Q8H [facility] PRN Reason: Protocol Last Admin: 02/01/18 17:07 Dose: 100 mls/hr Vancomycin/Sodium Chloride (Vancomycin 1 Gm/Ns 200 Ml) 1 gm in 200 mls @ 133 mls/hr IVPB Q12H [facility] Stop: 02/05/18 19:01 Last Admin: 02/01/18 18:00 Dose: 133 mls/hr Insulin Glargine (Lantus) 30 unit SC HS [facility] Last Admin: 02/01/18 21:16 Dose: 30 u Insulin Human Regular (Novolin R) 0 unit SC Q6 [facility] PRN Reason: Protocol Last Admin: 02/01/18 17:51 Dose: 4 unit Pantoprazole Sodium (Protonix Susp) 40 mg PO 1000 [facility] Last Admin: 02/01/18 09:16 Dose: 40 mg Tamsulosin HCl (Flomax) 0.4 mg PO DAILY [facility] Last Admin: 02/01/18 09:16 Dose: 0.4 mg - Labs Labs: 02/01/18 06:12 02/01/18 06:10 PT 10.6 SECONDS (9.7-12.2) 01/16/18 12:27 INR 0.9 01/16/18 12:27 APTT 33 SECONDS (21-34) 01/16/18 12:27 - Constitutional Appears: No Acute Distress, Chronically Ill - Head Exam Head Exam: ATRAUMATIC, NORMAL INSPECTION, NORMOCEPHALIC - Eye Exam Eye Exam: EOMI, Normal appearance, PERRL Pupil Exam: NORMAL ACCOMODATION, PERRL - Respiratory Exam Respiratory Exam: Clear to Ausculation Bilateral, NORMAL BREATHING PATTERN - Cardiovascular Exam Cardiovascular Exam: REGULAR RHYTHM, +S1, +S2. absent: Murmur - GI/Abdominal Exam GI & Abdominal Exam: Soft, Normal Bowel Sounds. absent: Tenderness - Rectal Exam Rectal Exam: Deferred Assessment and Plan (1) Status epilepticus Status: Acute (2) COPD (chronic obstructive pulmonary disease) Status: Acute (3) Congestive heart failure Status: Acute (4) Diabetes Status: Acute (5) Hypernatremia Status: Acute
[2018-02-02] MEDS: (Novolin R) Insulin Human Regular 100 units/ml vial SC SCH ×4 (00:03→18:02)
[2018-02-02] MEDS: Albuterol-Ipratrop 3 mg / 0.5 (3 ml) UD INH SCH ×4 (01:42→19:54)
[2018-02-02] MEDS: Acyclovir 500 MG in Sodium Chloride 0.9% 100 ML IV SCH ×3 (02:02→18:17)
--- NOTE | 2018-02-02 04:36 | CON ---
DATE: 02/01/2018 LOCATION: ICU 5. HISTORY OF PRESENT ILLNESS: I was called for a GI consultation by the admitting MD. The patient is seen and fully examined on 02/01/2018 at the Intensive Care Unit in the presence of the intensive care staff as requested by Dr. Arash Rose. The entire chart is reviewed including but not limited to most recent laboratory results, current and the previous medication list, current and the previous medical events as well as allergy to medication list. Case discussed with the ICU staff at length, pre and post my physical examination on 02/01/2018. This is a 67-year-old male who was admitted to the hospital with underlying diagnosis of CVA with change of mental status, nonverbal, with reported dysphagia and recent dyspepsia, and then immediately after the admission. This patient has very poor oral intake. I was called for GI consultation for potential PEG insertion. PAST MEDICAL HISTORY: Including but not limited to, as reported, 1. Hypertension. 2. Coronary artery disease. 3. Status post CABG. 4. Hyperlipidemia. SOCIAL HISTORY: No reported known history of recent alcohol intake or cigarette smoking. FAMILY HISTORY: Unknown. ALLERGIES TO MEDICATION: Unclear. CURRENT MEDICATION: Medication list post admission, reviewed. Initial blood workup showed normal CBC, however, there was subsequent drop of hemoglobin and hematocrit as well as reported electrolyte imbalance at the time of admission was increased. Sodium low, potassium was increased, BUN and creatinine as well increased blood work level. The patient is still on tube feedings since. PHYSICAL EXAMINATION: GENERAL: A 67 years old male. VITAL SIGNS: Afebrile with pulse of 70, blood pressure of 138/62. HEENT: Showed pale, dry oral mucoid membrane. Nonicteric sclerae. LUNGS: Scattered crepitation, decreased air entry at bases with bilateral mild rales. HEART: Positive S1 and S2. ABDOMEN: Soft with slight mild distention. No mass or organomegaly. No rebound tenderness or guarding. EXTREMITIES: Bilateral extremities, edematous changes. No clubbing or cyanosis. NEURO: No reported new neurological deficit, sensory or motor since initial neurological deficits at the time of the admission. It is to be mentioned that the patient had a full neurology evaluation and workup since admission. All the notes were reviewed. IMPRESSION: 1. Change of mental status with possible cerebrovascular accident. 2. Dysphagia. Malnutrition with hypoalbuminemia. 3. The patient is a candidate for PEG insertion. 4. Past medical history, as reported including hyperlipidemia, hypertension, coronary artery disease, status post coronary artery bypass graft. 5. Electrolyte imbalance. Anemia most likely secondary to above. 6. Poorly controlled diabetes mellitus. 7. Renal insufficiency with dehydration. SUGGESTION: 1. Agree with your plan. 2. Central hyperalimentation. 3. We will schedule the patient for PEG insertion upon receiving official legal consult from the legal guardian. 4. It should be mentioned that I spent longer time in the entire procedure of the PEG, its recommendation, and technique with potential complications, no final decision per the family yet regarding the PEG insertion. We will follow up closely with you. Thank you for letting me participate in your patient's case management. Jaya Glass MD cc:
[2018-02-02 06:31] LABS: BASO % 0.3 % (0.0-2.0); EOS # 0.1 K/uL (0.0-0.7); EOS % 0.9 % (0.0-4.0); INR 1.1; LYMPH # 1.3 K/uL (1.0-4.3); LYMPH % 20.8 % (20.0-40.0); MEAN CELL VOLUME 91.6 fL (80.0-94.0); MEAN CORPUSCULAR HEMOGLOBIN 31.2 pg (27.0-31.0); MEAN CORPUSCULAR HGB CONC 34.1 g/dL (33.0-37.0); MEAN PLATELET VOLUME 10.4 fL (7.2-11.7); MONO # 0.5 K/uL (0.0-0.8); MONO % 8.6 % (0.0-10.0); NEUT # 4.4 K/uL (1.8-7.0); NEUT % 69.4 % (50.0-75.0); NRBC % 0.1 % (0.0-2.0); PROTHROMBIN TIME 12.4 SECONDS (9.7-12.2); RBC 3.84 Mil/uL (4.40-5.90); RED CELL DISTRIBUTION WIDTH 12.4 % (11.5-14.5); WHITE BLOOD COUNT 6.4 K/uL (4.8-10.8)
[2018-02-02 06:45] LABS: ALT/SGPT 66 U/L (21-72); AMYLASE 39 U/L (30-110); AST/SGOT 44 U/L (17-59); BLOOD UREA NITROGEN 25 mg/dL (9-20); CALCIUM 7.8 mg/dl (8.6-10.4); GFR AFRICAN-AMERICAN > 60; GFR NON-AFRICAN AMERICAN > 60; LIPASE 60 U/L (23-300)
--- NOTE | 2018-02-02 06:45 | CP.PCM.PN ---
Subjective - Date & Time of Evaluation Date of Evaluation: 02/02/18 Time of Evaluation: 06:42 - Subjective Subjective: was seen and examined at the bedside in ICU. He is opening his eyes and moves all extremities spontaneously. He refused to participate during assessment. He is nasal cannula saturating at 100%. He has NGT for medication and feeding purposes. He has episode of restlessness and remains on bilateral hand restraints and 1:1 sitter for patient safety. There was no untoward events overnight. Objective - Vital Signs/Intake and Output Vital Signs (last 24 hours): Temp Pulse Resp BP Pulse Ox 98.9 F 99 H 25 H 154/88 H 99 02/01/18 23:55 02/02/18 06:00 02/02/18 06:00 02/02/18 04:00 02/02/18 06:00 Intake and Output: 02/01/18 02/02/18 18:59 06:59 Intake Total 1685 1000 Output Total 1855 1850 Balance -170 -850 - Medications Medications: Current Medications Acetaminophen (Tylenol 650mg/20.3ml Solution Ud) 650 mg NG Q6 PRN PRN Reason: GIVE FOR TEMP. 100*F OR ABOVE Last Admin: 01/27/18 16:05 Dose: 650 mg Albuterol/Ipratropium (Duoneb 3 Mg/0.5 Mg (3 Ml) Ud) 3 ml INH RQ6 [facility] Last Admin: 02/02/18 01:42 Dose: 3 ml Aspirin (Aspirin Chewable) 81 mg PO DAILY [facility] Last Admin: 02/01/18 09:16 Dose: 81 mg Carvedilol (Coreg) 12.5 mg PO BID [facility] Last Admin: 02/01/18 17:06 Dose: 12.5 mg Heparin Sodium (Porcine) (Heparin) 5,000 units SC Q8 [facility] Last Admin: 02/02/18 06:07 Dose: 5,000 units Hydralazine HCl (Apresoline) 75 mg PO Q8 [facility] Last Admin: 02/02/18 06:07 Dose: 75 mg Levetiracetam 1,000 mg/ Sodium (Chloride) 110 mls @ 440 mls/hr IVPB Q12H [facility] Last Admin: 02/01/18 21:19 Dose: 440 mls/hr Acyclovir 500 mg/ Sodium (Chloride) 100 mls @ 100 mls/hr IV Q8H [facility] PRN Reason: Protocol Last Admin: 02/02/18 02:02 Dose: 100 mls/hr Vancomycin/Sodium Chloride (Vancomycin 1 Gm/Ns 200 Ml) 1 gm in 200 mls @ 133 mls/hr IVPB Q12H [facility] Stop: 02/05/18 19:01 Last Admin: 02/01/18 18:00 Dose: 133 mls/hr Insulin Glargine (Lantus) 30 unit SC HS [facility] Last Admin: 02/01/18 21:16 Dose: 30 u Insulin Human Regular (Novolin R) 0 unit SC Q6 [facility] PRN Reason: Protocol Last Admin: 02/02/18 06:07 Dose: 4 unit Pantoprazole Sodium (Protonix Susp) 40 mg PO 1000 [facility] Last Admin: 02/01/18 09:16 Dose: 40 mg Tamsulosin HCl (Flomax) 0.4 mg PO DAILY [facility] Last Admin: 02/01/18 09:16 Dose: 0.4 mg - Labs Labs: 02/02/18 06:19 02/01/18 06:10 PT 12.4 SECONDS (9.7-12.2) H 02/02/18 06:19 INR 1.1 02/02/18 06:19 APTT 29 SECONDS (21-34) 02/02/18 06:19 - Constitutional Appears: No Acute Distress - Head Exam Head Exam: NORMAL INSPECTION - Neurological Exam Neurological Exam: Awake Neuro motor strength exam: Left Upper Extremity: 4, Right Upper Extremity: 4, Left Lower Extremity: 3, Right Lower Extremity: 3 Additional comments: Neurological unchanged from previous examination. Assessment and Plan (1) Status epilepticus Assessment & Plan: Case discussed with Dr. Baldwin, continue all current medical regimen. Pending MRI and EEG results. Status: Acute
[2018-02-02] MEDS: Vancomycin 1 gm/NS 200 ml 1 GM/200 ML BAG IVPB SCH (08:09)
[2018-02-02] MEDS: Pantoprazole 40 mg Susp UD PO SCH (09:24)
[2018-02-02] MEDS: levETIRAcetam 1,000 MG in Sodium Chloride 0.9% 100 ML IVPB SCH ×2 (09:24→21:30)
--- NOTE | 2018-02-02 18:38 | CP.PCM.PN ---
Subjective - Date & Time of Evaluation Date of Evaluation: 02/02/18 Time of Evaluation: 09:00 - Subjective Subjective: no fever arousable / confused resp status stable NAD Objective - Vital Signs/Intake and Output Vital Signs (last 24 hours): Temp Pulse Resp BP Pulse Ox 99.0 F 96 H 20 168/78 H 98 02/02/18 15:00 02/02/18 15:00 02/02/18 15:00 02/02/18 18:02 02/02/18 08:00 Intake and Output: 02/02/18 02/02/18 06:59 18:59 Intake Total 1000 1280 Output Total 1850 870 Balance -850 410 - Medications Medications: Current Medications Acetaminophen (Tylenol 650mg/20.3ml Solution Ud) 650 mg NG Q6 PRN PRN Reason: GIVE FOR TEMP. 100*F OR ABOVE Last Admin: 01/27/18 16:05 Dose: 650 mg Albuterol/Ipratropium (Duoneb 3 Mg/0.5 Mg (3 Ml) Ud) 3 ml INH RQ6 [facility] Last Admin: 02/02/18 14:00 Dose: 3 ml Aspirin (Aspirin Chewable) 81 mg PO DAILY [facility] Last Admin: 02/02/18 09:23 Dose: 81 mg Carvedilol (Coreg) 12.5 mg PO BID [facility] Last Admin: 02/02/18 18:02 Dose: 12.5 mg Heparin Sodium (Porcine) (Heparin) 5,000 units SC Q8 [facility] Last Admin: 02/02/18 13:14 Dose: 5,000 units Hydralazine HCl (Apresoline) 75 mg PO Q8 [facility] Last Admin: 02/02/18 13:13 Dose: 75 mg Levetiracetam 1,000 mg/ Sodium (Chloride) 110 mls @ 440 mls/hr IVPB Q12H [facility] Last Admin: 02/02/18 09:24 Dose: 440 mls/hr Acyclovir 500 mg/ Sodium (Chloride) 100 mls @ 100 mls/hr IV Q8H [facility] PRN Reason: Protocol Last Admin: 02/02/18 18:17 Dose: 100 mls/hr Insulin Glargine (Lantus) 30 unit SC HS [facility] Last Admin: 02/01/18 21:16 Dose: 30 u Insulin Human Regular (Novolin R) 0 unit SC Q6 [facility] PRN Reason: Protocol Last Admin: 02/02/18 18:02 Dose: 8 unit Pantoprazole Sodium (Protonix Susp) 40 mg PO 1000 [facility] Last Admin: 02/02/18 09:24 Dose: 40 mg Tamsulosin HCl (Flomax) 0.4 mg PO DAILY [facility] Last Admin: 02/02/18 09:23 Dose: 0.4 mg - Labs Labs: 02/02/18 06:19 02/02/18 06:16 PT 12.4 SECONDS (9.7-12.2) H 02/02/18 06:19 INR 1.1 02/02/18 06:19 APTT 29 SECONDS (21-34) 02/02/18 06:19 - Constitutional Appears: Non-toxic, Confused, Chronically Ill - Head Exam Head Exam: NORMOCEPHALIC - Eye Exam Eye Exam: PERRL. absent: Scleral icterus - ENT Exam ENT Exam: Mucous Membranes Dry - Neck Exam Neck Exam: absent: Lymphadenopathy - Respiratory Exam Respiratory Exam: Decreased Breath Sounds, Clear to Ausculation Bilateral - Cardiovascular Exam Cardiovascular Exam: REGULAR RHYTHM - GI/Abdominal Exam GI & Abdominal Exam: Distended, Soft - Rectal Exam Rectal Exam: Deferred - Exam Exam: NORMAL INSPECTION - Extremities Exam Extremities Exam: absent: Pedal Edema - Back Exam Back Exam: absent: CVA tenderness (L), CVA tenderness (R) - Neurological Exam Neurological Exam: Alert, Altered, Awake, CN II-XII Intact - Psychiatric Exam Psychiatric exam: Depressed Assessment and Plan (1) Sepsis Status: Acute (2) Sepsis Status: Acute (3) COPD (chronic obstructive pulmonary disease) Status: Acute (4) Congestive heart failure Status: Acute (5) Diabetes Status: Acute (6) Encephalopathy Status: Acute - Assessment and Plan (Free Text) Assessment: cont iv rx add zyvox await repeat cultures
[2018-02-02] MEDS: (Lantus) Insulin Glargine, Recombinant SC SCH (21:36)
[2018-02-02] MEDS: Linezolid 600 mg in D5W 300 ml 600 MG/300 ML BAG IVPB SCH (21:40)
--- NOTE | 2018-02-02 22:26 | PN ---
DATE: LOCATION: [facility], Bed A SUBJECTIVE: This is a 67-year-old male, seen and examined in rounds with family at bedside early today, out of the intensive care unit. Appeared to be with periods of mild agitation and restlessness. Still with an EG tube in place as well as nasal cannula for oxygen support. No reported active bleeding or poor oral intake. The entire chart is reviewed including, but not limited to, the most recent laboratory results, current and the previous medication list, current and previous medical events. Case discussed with staff at length. Today's lab showed normal CBC but mildly elevated PT to 12.4. BUN is 25, normal creatinine. Blood glucose level 248. Low albumin, 3.0. Total protein 5.9 with normal amylase and lipase levels. PHYSICAL EXAMINATION: GENERAL: A 67-year-old male. VITAL SIGNS: Afebrile, with pulse of 94, respiratory rate 20 to 22, blood pressure 162/76. HEENT: Show pale and dry oral mucosal membrane. Nonicteric sclerae. LUNGS: Scattered crepitation, decreased air entry at bases. HEART: Positive S1 and S2. ABDOMEN: Soft, bowel sounds are hypoactive. No mass or organomegaly. No rebound tenderness or guarding. EXTREMITIES: With edematous changes mildly. No clubbing or cyanosis. NEURO: No reported new neurological deficit, sensory or motor. IMPRESSION: 1. Hypertension. 2. Coronary artery disease, status post coronary artery bypass graft. 3. Hyperlipidemia. 4. Malnutrition with hypoalbuminemia and hypoproteinemia. 5. Seizure disorder by history. Further recommendation to follow, and the patient is a candidate for PEG insertion, upon receiving consent from the family. Otherwise, close observation to follow. Jaya Glass MD
--- NOTE | 2018-02-02 23:46 | CP.PCM.PN ---
Subjective - Date & Time of Evaluation Date of Evaluation: 02/02/18 Time of Evaluation: 18:00 Objective - Vital Signs/Intake and Output Vital Signs (last 24 hours): Temp Pulse Resp BP Pulse Ox 99.0 F 96 H 20 180/92 H 98 02/02/18 15:00 02/02/18 15:00 02/02/18 15:00 02/02/18 21:47 02/02/18 08:00 Intake and Output: 02/02/18 02/03/18 18:59 06:59 Intake Total 1280 1050 Output Total 870 Balance 410 1050 - Medications Medications: Current Medications Acetaminophen (Tylenol 650mg/20.3ml Solution Ud) 650 mg NG Q6 PRN PRN Reason: GIVE FOR TEMP. 100*F OR ABOVE Last Admin: 01/27/18 16:05 Dose: 650 mg Albuterol/Ipratropium (Duoneb 3 Mg/0.5 Mg (3 Ml) Ud) 3 ml INH RQ6 [facility] Last Admin: 02/02/18 19:54 Dose: 3 ml Aspirin (Aspirin Chewable) 81 mg PO DAILY [facility] Last Admin: 02/02/18 09:23 Dose: 81 mg Carvedilol (Coreg) 12.5 mg PO BID [facility] Last Admin: 02/02/18 18:02 Dose: 12.5 mg Heparin Sodium (Porcine) (Heparin) 5,000 units SC Q8 [facility] Last Admin: 02/02/18 21:31 Dose: 5,000 units Hydralazine HCl (Apresoline) 75 mg PO Q8 [facility] Last Admin: 02/02/18 21:46 Dose: 75 mg Levetiracetam 1,000 mg/ Sodium (Chloride) 110 mls @ 440 mls/hr IVPB Q12H [facility] Last Admin: 02/02/18 21:30 Dose: 440 mls/hr Acyclovir 500 mg/ Sodium (Chloride) 100 mls @ 100 mls/hr IV Q8H [facility] PRN Reason: Protocol Last Admin: 02/02/18 18:17 Dose: 100 mls/hr Linezolid (Zyvox 600mg/300ml D5w) 600 mg in 300 mls @ 200 mls/hr IVPB Q12 [facility] PRN Reason: Protocol Last Admin: 02/02/18 21:40 Dose: 200 mls/hr Insulin Glargine (Lantus) 30 unit SC HS [facility] Last Admin: 02/02/18 21:36 Dose: 30 u Insulin Human Regular (Novolin R) 0 unit SC Q6 [facility] PRN Reason: Protocol Last Admin: 02/02/18 18:02 Dose: 8 unit Pantoprazole Sodium (Protonix Susp) 40 mg PO 1000 [facility] Last Admin: 02/02/18 09:24 Dose: 40 mg Tamsulosin HCl (Flomax) 0.4 mg PO DAILY [facility] Last Admin: 02/02/18 09:23 Dose: 0.4 mg - Labs Labs: 02/02/18 06:19 02/02/18 06:16 PT 12.4 SECONDS (9.7-12.2) H 02/02/18 06:19 INR 1.1 02/02/18 06:19 APTT 29 SECONDS (21-34) 02/02/18 06:19 Assessment and Plan (1) Status epilepticus Status: Acute (2) COPD (chronic obstructive pulmonary disease) Status: Acute (3) Congestive heart failure Status: Acute (4) Diabetes Status: Acute (5) Hypernatremia Status: Acute
[2018-02-03] MEDS: (Novolin R) Insulin Human Regular 100 units/ml vial SC SCH ×4 (00:06→18:28)
[2018-02-03] MEDS: Albuterol-Ipratrop 3 mg / 0.5 (3 ml) UD INH SCH ×4 (01:34→20:57)
[2018-02-03] MEDS: Acyclovir 500 MG in Sodium Chloride 0.9% 100 ML IV SCH ×3 (02:05→17:34)
[2018-02-03] MEDS: Pantoprazole 40 mg Susp UD PO SCH (10:46)
[2018-02-03] MEDS: levETIRAcetam 1,000 MG in Sodium Chloride 0.9% 100 ML IVPB SCH ×2 (10:47→21:10)
[2018-02-03] MEDS: Linezolid 600 mg in D5W 300 ml 600 MG/300 ML BAG IVPB SCH ×2 (10:48→21:11)
--- NOTE | 2018-02-03 12:07 | PN ---
DATE: 02/03/2018 LOCATION: 369, bed A. SUBJECTIVE: This is a 67-year-old male seen and examined in rounds early today with the staff in the floor without reported significant clinical changes, somewhat responsive to verbal stimuli, occasionally opening the eyes and moving his extremities. He still has NG tube for medication and feeding process. The patient appears to be at times restlessness and agitated, despite his hand restraint. No reported active bleeding. The entire chart is reviewed including, but not limited to the most recent lab and radiology study results, current and the previous medication list, current and the previous medical events. Today's lab showed blood glucose level of 337, rest is still pending, but reported to have low albumin and low total protein with low calcium. PHYSICAL EXAMINATION GENERAL: A 67-year-old male.. VITAL SIGNS: Afebrile with pulse of 84, respiratory rate of 20 to 22, blood pressure of 170/86. HEENT: Showed pale, dry oral mucous membranes. Nonicteric sclerae. LUNGS: Few scattered crepitation. Decreased air entry at bases. HEART: Positive S1 and S2. ABDOMEN: Soft with mild distention. No mass or organomegaly. No rebound tenderness or guarding. EXTREMITIES: With lower extremity edematous changes. No clubbing or cyanosis. NEURO: No reported new neurological deficits, sensory or motor. No new reported focal deficits. Peripheral pulses are present bilaterally, but weak. IMPRESSION: 1. Malnutrition with hypoalbuminemia and proteinemia. 2. Seizure disorder by history. 3. Known history of hypertension, coronary artery disease, with status post coronary artery bypass graft. 4. Hyperlipidemia by history. 5. The patient is a candidate for percutaneous endoscopic gastrostomy insertion. SUGGESTIONS: 1. Continue current management. 2. Still awaiting legal consent from the legal guardian and family for PEG insertion. 3. The patient will need peripheral as well as central hyperalimentation in the meantime. 4. Correct any underlying electrolyte imbalance or coagulopathy. 5. Further recommendation to follow. Jaya Glass MD
--- NOTE | 2018-02-03 15:59 | RAD ---
HISTORY: s/p NG tube placement COMPARISON: 01/31/2018 FINDINGS: LUNGS: No active pulmonary disease. PLEURA: No significant pleural effusion identified, no pneumothorax apparent. CARDIOVASCULAR: Normal heart size. Status post CABG. NG tube extends to left upper quadrant of abdomen. OSSEOUS STRUCTURES: No significant abnormalities. VISUALIZED UPPER ABDOMEN: Normal. OTHER FINDINGS: None. IMPRESSION: New NG tube extends to left upper quadrant of abdomen.
--- NOTE | 2018-02-03 21:40 | PN ---
DATE: SUBJECTIVE: The patient is seen. The patient is still on one-to-one, still very confused but more alert than yesterday. The patient was seen with his daughter who reports her dad was doing well until a few days ago. The daughter also is concerned about the patient taking Keppra as the daughter reports the patient has no history of previous seizure and noticed that the patient became more confused now that the patient is taking Keppra. We will discuss with Dr. Rose if this Keppra can at least be lowered or discontinued as this Keppra seems to make the patient more confused. The patient is currently taking 1 gm twice a day. The patient had a chest x-ray done. The patient has NG tube placement. The x-ray done today showed the NG tube extends the left upper quadrant of the abdomen. No abnormalities noted. PHYSICAL EXAMINATION: VITAL SIGNS: Temperature is 98.7, pulse rate 88, blood pressure is noted to be elevated at 172/80, respirations 20, oxygen saturation 96%. Review of the patient's meds: The patient is taking Keppra 1 gm twice a day and the patient was seen by Dr. Spaulding and also given Zyvox 600 mg q.12 hours. Note that the patient cannot be given Haldol as the Haldol along with Zyvox will cause more confusion, especially the patient is confusion at baseline. REVIEW OF SYSTEMS: GENERAL: The patient is more alert compared to yesterday but still very confused and on hand mittens as he is trying to pull his IV lines.. The patient cannot engage, he is mostly nonverbal. He seems to be not in acute respiratory distress. Not complaining of pain but very restless and can follow direction. According to the daughter, the daughter reports that his father is too confused even to converse to her. Review of systems cannot be fully assessed due to his confusion. MENTAL STATUS EXAMINATION: An elderly male, seen in his room, height is 5 feet 9 inches, weighs 224 pounds. He is more alert but very confused and not even recognizes the daughter very well. The patient is nonverbal. Affect is restricted. Mood is dysphoric. Thought process, confused. Thought content, no overt hallucinations or paranoia. No suicidal or homicidal ideation. Attention and memory impaired. Insight and judgment impaired. Impulse control is guarded at this time. IMPRESSION: Delirium, metabolic encephalopathy, multifactorial, history of cerebrovascular accident, status post nasogastric tube placement, sepsis, history of seizure, hypernatremia, chronic obstructive pulmonary disease, diabetes, and congestive heart failure. PLAN AND RECOMMENDATIONS: The patient is seen. Meds reviewed. We will continue close monitoring. We will check if the Keppra could be at least lowered or discontinued as it seems like this high dose of Keppra is causing the patient to be more confused. Also, if the patient really becomes very agitated, we will give Ativan as p.r.n. Ativan does not cross with the Zyvox and does not have any dangerous drug-drug interactions to control his agitation. The patient is on one-to-one now, we will just Ativan p.r.n. for extreme agitation. Continue treatment and plan as outlined. Continue NG tube feeding as ordered. Carl Hill MD MTDVinnie
--- NOTE | 2018-02-03 21:41 | PN ---
DATE: For control of his agitation, if the patient becomes extremely agitated, may have Ativan 1 mg IV q.6 p.r.n. for severe agitation. Carl Hill MD
[2018-02-03] MEDS: (Lantus) Insulin Glargine, Recombinant SC SCH (21:42)
[2018-02-04] MEDS: (Novolin R) Insulin Human Regular 100 units/ml vial SC SCH ×4 (00:35→18:54)
[2018-02-04] MEDS: Albuterol-Ipratrop 3 mg / 0.5 (3 ml) UD INH SCH ×4 (01:41→19:27)
[2018-02-04] MEDS: Acyclovir 500 MG in Sodium Chloride 0.9% 100 ML IV SCH ×3 (02:39→17:08)
--- NOTE | 2018-02-04 06:51 | CP.PCM.PN ---
Subjective - Date & Time of Evaluation Date of Evaluation: 02/04/18 Time of Evaluation: 06:51 - Subjective Subjective: was seen and examined at the bedside. He is opening his eyes and moves all extremities spontaneously. He refused to participate during assessment. He is nasal cannula saturating at 100%. He has NGT for medication and feeding purposes. He has episode of restlessness and remains on bilateral hand restraints and 1:1 sitter for patient safety. There was no untoward events overnight. Objective - Vital Signs/Intake and Output Vital Signs (last 24 hours): Temp Pulse Resp BP Pulse Ox 98.7 F 88 20 165/80 H 96 02/03/18 00:00 02/03/18 06:00 02/03/18 00:00 02/03/18 17:31 02/03/18 06:00 Intake and Output: 02/03/18 02/04/18 18:59 06:59 Intake Total 1050 1050 Balance 1050 1050 - Medications Medications: Current Medications Acetaminophen (Tylenol 650mg/20.3ml Solution Ud) 650 mg NG Q6 PRN PRN Reason: GIVE FOR TEMP. 100*F OR ABOVE Last Admin: 01/27/18 16:05 Dose: 650 mg Albuterol/Ipratropium (Duoneb 3 Mg/0.5 Mg (3 Ml) Ud) 3 ml INH RQ6 [facility] Last Admin: 02/04/18 01:41 Dose: Not Given Aspirin (Aspirin Chewable) 81 mg PO DAILY [facility] Last Admin: 02/03/18 10:46 Dose: 81 mg Carvedilol (Coreg) 12.5 mg PO BID [facility] Last Admin: 02/03/18 17:31 Dose: 12.5 mg Heparin Sodium (Porcine) (Heparin) 5,000 units SC Q8 [facility] Last Admin: 02/04/18 05:23 Dose: 5,000 units Hydralazine HCl (Apresoline) 100 mg PO Q8 [facility] Last Admin: 02/04/18 05:23 Dose: 100 mg Levetiracetam 1,000 mg/ Sodium (Chloride) 110 mls @ 440 mls/hr IVPB Q12H [facility] Last Admin: 02/03/18 21:10 Dose: 440 mls/hr Acyclovir 500 mg/ Sodium (Chloride) 100 mls @ 100 mls/hr IV Q8H [facility] PRN Reason: Protocol Last Admin: 02/04/18 02:39 Dose: 100 mls/hr Linezolid (Zyvox 600mg/300ml D5w) 600 mg in 300 mls @ 200 mls/hr IVPB Q12 [facility] PRN Reason: Protocol Last Admin: 02/03/18 21:11 Dose: 200 mls/hr Insulin Glargine (Lantus) 30 unit SC HS [facility] Last Admin: 02/03/18 21:42 Dose: 30 u Insulin Human Regular (Novolin R) 0 unit SC Q6 [facility] PRN Reason: Protocol Last Admin: 02/04/18 06:26 Dose: 8 unit Lorazepam (Ativan) 1 mg IVP Q6H PRN PRN Reason: Anxiety Pantoprazole Sodium (Protonix Susp) 40 mg PO 1000 [facility] Last Admin: 02/03/18 10:46 Dose: 40 mg Tamsulosin HCl (Flomax) 0.4 mg PO DAILY [facility] Last Admin: 02/03/18 10:46 Dose: 0.4 mg - Labs Labs: 02/02/18 06:19 02/02/18 06:16 PT 12.4 SECONDS (9.7-12.2) H 02/02/18 06:19 INR 1.1 02/02/18 06:19 APTT 29 SECONDS (21-34) 02/02/18 06:19 - Constitutional Appears: No Acute Distress - Head Exam Head Exam: NORMAL INSPECTION - Neurological Exam Neurological Exam: Awake Neuro motor strength exam: Left Upper Extremity: 4, Right Upper Extremity: 4, Left Lower Extremity: 2/1, Right Lower Extremity: 2/1 Additional comments: He opens his eyes and moves all his extremities spontaneously, but not able to participate during assessment. Assessment and Plan (1) Status epilepticus Assessment & Plan: Case discussed with Dr. Baldwin, continue all current medical regimen. Recommend blood pressure control. Status: Acute
[2018-02-04] MEDS: levETIRAcetam 1,000 MG in Sodium Chloride 0.9% 100 ML IVPB SCH ×2 (10:31→21:00)
[2018-02-04] MEDS: Pantoprazole 40 mg Susp UD PO SCH (10:31)
[2018-02-04] MEDS: Linezolid 600 mg in D5W 300 ml 600 MG/300 ML BAG IVPB SCH ×2 (11:00→21:26)
--- NOTE | 2018-02-04 11:59 | PN ---
DATE: LOCATION: [facility], bed A. SUBJECTIVE: This is a 67-year-old male seen and examined in rounds, with poor oral intake, reported to be on NG tube. It has to be mentioned that the patient responds sometimes to verbal stimuli by moving his extremities on and off slowly as well as opening his eyes, but is still restless on and off. The entire chart is reviewed including but not limited to the most recent lab and radiology study results, current and the previous medication list, current and the previous medical events. Case discussed with the staff at length. Today's lab showed blood glucose level of 318. Rest of the lab is still pending. PHYSICAL EXAMINATION GENERAL: A 67-year-old male. VITAL SIGNS: Afebrile, with blood pressure of 160/78, respiratory rate 20 to 22. HEENT: Showed pale, dry oral mucous membranes. Nonicteric sclerae. LUNGS: Few scattered crepitations. Decreased air entry at bases. HEART: Positive S1 and S2. ABDOMEN: Soft with mild distention, mild generalized tenderness. No mass or organomegaly. Bowel sounds are hypoactive. NG tube is in place. EXTREMITIES: With edematous changes. No clubbing or cyanosis. NEURO: No reported new neurological deficits, sensory or motor. No new reported focal deficits. The patient is seen by the Psychiatry audit consultant as well as the Nephrology Team. IMPRESSION: 1. Seizure disorder by history. 2. Malnutrition with hypoalbuminemia. 3. The patient is a candidate for PEG insertion, awaiting family consent. 4. Known history but not limited to hypertension, coronary artery disease, with status post coronary artery bypass graft. 5. History of hyperlipidemia. SUGGESTIONS: 1. Agree with your plan. 2. Peripheral hyperalimentation. 3. Correct any underlying electrolyte imbalance. 4. Further recommendations to follow. Jaya Glass MD
--- NOTE | 2018-02-04 14:15 | CP.PCM.PN ---
Subjective - Date & Time of Evaluation Date of Evaluation: 02/03/18 Time of Evaluation: 19:00 Objective - Vital Signs/Intake and Output Vital Signs (last 24 hours): Temp Pulse Resp BP Pulse Ox 98.7 F 88 20 174/84 H 96 02/03/18 00:00 02/03/18 06:00 02/03/18 00:00 02/04/18 10:31 02/03/18 06:00 Intake and Output: 02/04/18 02/04/18 06:59 18:59 Intake Total 1050 1000 Balance 1050 1000 - Medications Medications: Current Medications Acetaminophen (Tylenol 650mg/20.3ml Solution Ud) 650 mg NG Q6 PRN PRN Reason: GIVE FOR TEMP. 100*F OR ABOVE Last Admin: 01/27/18 16:05 Dose: 650 mg Albuterol/Ipratropium (Duoneb 3 Mg/0.5 Mg (3 Ml) Ud) 3 ml INH RQ6 [facility] Last Admin: 02/04/18 13:12 Dose: 3 ml Aspirin (Aspirin Chewable) 81 mg PO DAILY [facility] Last Admin: 02/04/18 10:31 Dose: 81 mg Carvedilol (Coreg) 12.5 mg PO BID [facility] Last Admin: 02/04/18 10:31 Dose: 12.5 mg Heparin Sodium (Porcine) (Heparin) 5,000 units SC Q8 [facility] Last Admin: 02/04/18 13:43 Dose: 5,000 units Hydralazine HCl (Apresoline) 100 mg PO Q8 [facility] Last Admin: 02/04/18 13:42 Dose: 100 mg Levetiracetam 1,000 mg/ Sodium (Chloride) 110 mls @ 440 mls/hr IVPB Q12H [facility] Last Admin: 02/04/18 10:31 Dose: 440 mls/hr Acyclovir 500 mg/ Sodium (Chloride) 100 mls @ 100 mls/hr IV Q8H [facility] PRN Reason: Protocol Last Admin: 02/04/18 10:00 Dose: 100 mls/hr Linezolid (Zyvox 600mg/300ml D5w) 600 mg in 300 mls @ 200 mls/hr IVPB Q12 [facility] PRN Reason: Protocol Last Admin: 02/04/18 11:00 Dose: 200 mls/hr Insulin Glargine (Lantus) 30 unit SC HS [facility] Last Admin: 02/03/18 21:42 Dose: 30 u Insulin Human Regular (Novolin R) 0 unit SC Q6 [facility] PRN Reason: Protocol Last Admin: 02/04/18 12:30 Dose: 8 unit Lorazepam (Ativan) 1 mg IVP Q6H PRN PRN Reason: Anxiety Pantoprazole Sodium (Protonix Susp) 40 mg PO 1000 [facility] Last Admin: 02/04/18 10:31 Dose: 40 mg Tamsulosin HCl (Flomax) 0.4 mg PO DAILY [facility] Last Admin: 02/04/18 10:31 Dose: 0.4 mg - Labs Labs: 02/02/18 06:19 02/02/18 06:16 PT 12.4 SECONDS (9.7-12.2) H 02/02/18 06:19 INR 1.1 02/02/18 06:19 APTT 29 SECONDS (21-34) 02/02/18 06:19 Assessment and Plan (1) Status epilepticus Status: Acute (2) COPD (chronic obstructive pulmonary disease) Status: Acute (3) Congestive heart failure Status: Acute (4) Diabetes Status: Acute (5) Hypernatremia Status: Acute
--- NOTE | 2018-02-04 14:16 | CP.PCM.PN ---
Subjective - Date & Time of Evaluation Date of Evaluation: 02/04/18 Time of Evaluation: 19:00 Objective - Vital Signs/Intake and Output Vital Signs (last 24 hours): Temp Pulse Resp BP Pulse Ox 98.7 F 88 20 174/84 H 96 02/03/18 00:00 02/03/18 06:00 02/03/18 00:00 02/04/18 10:31 02/03/18 06:00 Intake and Output: 02/04/18 02/04/18 06:59 18:59 Intake Total 1050 1000 Balance 1050 1000 - Medications Medications: Current Medications Acetaminophen (Tylenol 650mg/20.3ml Solution Ud) 650 mg NG Q6 PRN PRN Reason: GIVE FOR TEMP. 100*F OR ABOVE Last Admin: 01/27/18 16:05 Dose: 650 mg Albuterol/Ipratropium (Duoneb 3 Mg/0.5 Mg (3 Ml) Ud) 3 ml INH RQ6 [facility] Last Admin: 02/04/18 13:12 Dose: 3 ml Aspirin (Aspirin Chewable) 81 mg PO DAILY [facility] Last Admin: 02/04/18 10:31 Dose: 81 mg Carvedilol (Coreg) 12.5 mg PO BID [facility] Last Admin: 02/04/18 10:31 Dose: 12.5 mg Heparin Sodium (Porcine) (Heparin) 5,000 units SC Q8 [facility] Last Admin: 02/04/18 13:43 Dose: 5,000 units Hydralazine HCl (Apresoline) 100 mg PO Q8 [facility] Last Admin: 02/04/18 13:42 Dose: 100 mg Levetiracetam 1,000 mg/ Sodium (Chloride) 110 mls @ 440 mls/hr IVPB Q12H [facility] Last Admin: 02/04/18 10:31 Dose: 440 mls/hr Acyclovir 500 mg/ Sodium (Chloride) 100 mls @ 100 mls/hr IV Q8H [facility] PRN Reason: Protocol Last Admin: 02/04/18 10:00 Dose: 100 mls/hr Linezolid (Zyvox 600mg/300ml D5w) 600 mg in 300 mls @ 200 mls/hr IVPB Q12 [facility] PRN Reason: Protocol Last Admin: 02/04/18 11:00 Dose: 200 mls/hr Insulin Glargine (Lantus) 30 unit SC HS [facility] Last Admin: 02/03/18 21:42 Dose: 30 u Insulin Human Regular (Novolin R) 0 unit SC Q6 [facility] PRN Reason: Protocol Last Admin: 02/04/18 12:30 Dose: 8 unit Lorazepam (Ativan) 1 mg IVP Q6H PRN PRN Reason: Anxiety Pantoprazole Sodium (Protonix Susp) 40 mg PO 1000 [facility] Last Admin: 02/04/18 10:31 Dose: 40 mg Tamsulosin HCl (Flomax) 0.4 mg PO DAILY [facility] Last Admin: 02/04/18 10:31 Dose: 0.4 mg - Labs Labs: 02/02/18 06:19 02/02/18 06:16 PT 12.4 SECONDS (9.7-12.2) H 02/02/18 06:19 INR 1.1 02/02/18 06:19 APTT 29 SECONDS (21-34) 02/02/18 06:19 Assessment and Plan (1) Status epilepticus Status: Acute (2) COPD (chronic obstructive pulmonary disease) Status: Acute (3) Congestive heart failure Status: Acute (4) Diabetes Status: Acute (5) Hypernatremia Status: Acute
--- NOTE | 2018-02-04 16:27 | CP.PCM.PN ---
Subjective - Date & Time of Evaluation Date of Evaluation: 02/04/18 Time of Evaluation: 09:00 - Subjective Subjective: remains obtunded confused Objective - Vital Signs/Intake and Output Vital Signs (last 24 hours): Temp Pulse Resp BP Pulse Ox 98.4 F 105 H 20 174/84 H 96 02/04/18 08:00 02/04/18 08:00 02/04/18 08:00 02/04/18 10:31 02/04/18 08:00 Intake and Output: 02/04/18 02/04/18 06:59 18:59 Intake Total 1050 1900 Balance 1050 1900 - Medications Medications: Current Medications Acetaminophen (Tylenol 650mg/20.3ml Solution Ud) 650 mg NG Q6 PRN PRN Reason: GIVE FOR TEMP. 100*F OR ABOVE Last Admin: 01/27/18 16:05 Dose: 650 mg Albuterol/Ipratropium (Duoneb 3 Mg/0.5 Mg (3 Ml) Ud) 3 ml INH RQ6 [facility] Last Admin: 02/04/18 13:12 Dose: 3 ml Aspirin (Aspirin Chewable) 81 mg PO DAILY [facility] Last Admin: 02/04/18 10:31 Dose: 81 mg Carvedilol (Coreg) 12.5 mg PO BID [facility] Last Admin: 02/04/18 10:31 Dose: 12.5 mg Heparin Sodium (Porcine) (Heparin) 5,000 units SC Q8 [facility] Last Admin: 02/04/18 13:43 Dose: 5,000 units Hydralazine HCl (Apresoline) 100 mg PO Q8 [facility] Last Admin: 02/04/18 13:42 Dose: 100 mg Levetiracetam 1,000 mg/ Sodium (Chloride) 110 mls @ 440 mls/hr IVPB Q12H [facility] Last Admin: 02/04/18 10:31 Dose: 440 mls/hr Acyclovir 500 mg/ Sodium (Chloride) 100 mls @ 100 mls/hr IV Q8H [facility] PRN Reason: Protocol Last Admin: 02/04/18 10:00 Dose: 100 mls/hr Linezolid (Zyvox 600mg/300ml D5w) 600 mg in 300 mls @ 200 mls/hr IVPB Q12 [facility] PRN Reason: Protocol Last Admin: 02/04/18 11:00 Dose: 200 mls/hr Insulin Glargine (Lantus) 30 unit SC HS [facility] Last Admin: 02/03/18 21:42 Dose: 30 u Insulin Human Regular (Novolin R) 0 unit SC Q6 [facility] PRN Reason: Protocol Last Admin: 02/04/18 12:30 Dose: 8 unit Lorazepam (Ativan) 1 mg IVP Q6H PRN PRN Reason: Anxiety Pantoprazole Sodium (Protonix Susp) 40 mg PO 1000 [facility] Last Admin: 02/04/18 10:31 Dose: 40 mg Tamsulosin HCl (Flomax) 0.4 mg PO DAILY [facility] Last Admin: 02/04/18 10:31 Dose: 0.4 mg - Labs Labs: 02/02/18 06:19 02/02/18 06:16 PT 12.4 SECONDS (9.7-12.2) H 02/02/18 06:19 INR 1.1 02/02/18 06:19 APTT 29 SECONDS (21-34) 02/02/18 06:19 - Constitutional Appears: Non-toxic, Chronically Ill - Head Exam Head Exam: NORMOCEPHALIC - Eye Exam Eye Exam: absent: Scleral icterus - ENT Exam ENT Exam: Mucous Membranes Dry - Neck Exam Neck Exam: absent: Lymphadenopathy - Respiratory Exam Respiratory Exam: Decreased Breath Sounds - Cardiovascular Exam Cardiovascular Exam: REGULAR RHYTHM - GI/Abdominal Exam GI & Abdominal Exam: Distended, Soft. absent: Tenderness - Rectal Exam Rectal Exam: Deferred - Exam Exam: NORMAL INSPECTION - Extremities Exam Extremities Exam: absent: Pedal Edema - Back Exam Back Exam: absent: CVA tenderness (L), CVA tenderness (R) - Neurological Exam Neurological Exam: Altered - Psychiatric Exam Psychiatric exam: Depressed - Skin Skin Exam: Dry, Intact Assessment and Plan (1) Sepsis Status: Acute (2) Sepsis Status: Acute (3) COPD (chronic obstructive pulmonary disease) Status: Acute (4) Congestive heart failure Status: Acute (5) Diabetes Status: Acute (6) Encephalopathy Status: Acute - Assessment and Plan (Free Text) Assessment: encephalopathy hx multiple CVA neuro on board IV antibiotics in [place]
--- NOTE | 2018-02-04 17:37 | RAD ---
HISTORY: confirm placement of NG tube COMPARISON: No prior. FINDINGS: LUNGS: Limited examination due to poor inspiratory effort. PLEURA: No significant pleural effusion identified, no pneumothorax apparent. CARDIOVASCULAR: Normal heart size. Status post CABG. Nasogastric tube extends to central abdomen. OSSEOUS STRUCTURES: No significant abnormalities. VISUALIZED UPPER ABDOMEN: Normal. OTHER FINDINGS: None. IMPRESSION: NG tube extends to central abdomen.
--- NOTE | 2018-02-04 19:40 | PN ---
DATE: 02/04/2018 SUBJECTIVE: The patient is seen in the safety observation room with his daughter. The patient is still confused, nonverbal, but not in any acute respiratory distress. Still has not eaten. Note, the patient is still on Keppra 1 gm twice a day. The patient awaiting evaluation of Neurology for possible reduction of the dose or discontinuation of the medicine. The patient is still having occasional bouts of agitation and was given Ativan p.r.n. but was given since it was ordered. VITAL SIGNS: Temperature is 98.4, pulse rate is 79, blood pressure is 174/84, respiration is 20, and oxygen saturation is 96%. REVIEW OF SYSTEMS: The patient is still confused most the time, not in acute respiratory distress. Still with bouts of agitation, has not eaten. Currently in the four-bedded room. He is still mostly nonverbal. Review of systems cannot be fully assessed due to his mental status. MENTAL STATUS EXAMINATION: Elderly male, in restraints, still confused, could hardly recognize his daughter when seen. Mood is dysphoric. The patient speaks mostly nonverbal. Affect is restricted. Thought process, confused. Thought content, No overt paranoia or hallucinations. No suicidal or homicidal ideation. Attention and memory still impaired. Insight and judgment impaired. Impulse control is guarded at this time. IMPRESSION: Delirium, metabolic encephalopathy, multifactorial; history of cerebrovascular accident and seizure. PLAN AND RECOMMENDATIONS: The patient is seen, medications reviewed. Continue present management. Continue NG tube feeding. Continue Ativan p.r.n. for severe agitation. The patient is awaiting Neuro re-eval concerning his Keppra medication. Continue with the treatment plan as outlined. Carl Hill MD
[2018-02-04] MEDS: (Lantus) Insulin Glargine, Recombinant SC SCH (21:32)
[2018-02-05] MEDS: (Novolin R) Insulin Human Regular 100 units/ml vial SC SCH ×4 (00:03→17:40)
[2018-02-05] MEDS: Acyclovir 500 MG in Sodium Chloride 0.9% 100 ML IV SCH ×2 (01:33→12:01)
[2018-02-05] MEDS: Albuterol-Ipratrop 3 mg / 0.5 (3 ml) UD INH SCH ×4 (01:33→20:12)
[2018-02-05] MEDS: Acetaminophen 650mg/20.3ml solution UD NG PRN ×2 (05:31→20:48)
--- NOTE | 2018-02-05 06:46 | CP.PCM.PN ---
Subjective - Date & Time of Evaluation Date of Evaluation: 02/05/18 Time of Evaluation: 06:44 - Subjective Subjective: was seen and examined at the bedside. He is opening his eyes and moves all extremities spontaneously. He refused to participate during assessment. He is nasal cannula saturating at 100%. He has NGT for medication and feeding purposes. He has episode of restlessness with his hand moving towards his face, remains on bilateral hand restraints and 1:1 sitter for patient safety. There was no untoward events overnight. Objective - Vital Signs/Intake and Output Vital Signs (last 24 hours): Temp Pulse Resp BP Pulse Ox 102 F H 109 H 22 134/81 96 02/05/18 05:31 02/05/18 05:25 02/05/18 05:25 02/05/18 05:25 02/05/18 05:25 Intake and Output: 02/04/18 02/05/18 18:59 06:59 Intake Total 1900 900 Balance 1900 900 - Medications Medications: Current Medications Acetaminophen (Tylenol 650mg/20.3ml Solution Ud) 650 mg NG Q6 PRN PRN Reason: GIVE FOR TEMP. 100*F OR ABOVE Last Admin: 02/05/18 05:31 Dose: 650 mg Albuterol/Ipratropium (Duoneb 3 Mg/0.5 Mg (3 Ml) Ud) 3 ml INH RQ6 [facility] Last Admin: 02/05/18 01:33 Dose: 3 ml Aspirin (Aspirin Chewable) 81 mg PO DAILY [facility] Last Admin: 02/04/18 10:31 Dose: 81 mg Carvedilol (Coreg) 12.5 mg PO BID [facility] Last Admin: 02/04/18 17:13 Dose: 12.5 mg Heparin Sodium (Porcine) (Heparin) 5,000 units SC Q8 [facility] Last Admin: 02/05/18 05:31 Dose: 5,000 units Hydralazine HCl (Apresoline) 100 mg PO Q8 [facility] Last Admin: 02/05/18 05:31 Dose: 100 mg Levetiracetam 1,000 mg/ Sodium (Chloride) 110 mls @ 440 mls/hr IVPB Q12H [facility] Last Admin: 02/04/18 21:00 Dose: 440 mls/hr Acyclovir 500 mg/ Sodium (Chloride) 100 mls @ 100 mls/hr IV Q8H [facility] PRN Reason: Protocol Last Admin: 02/05/18 01:33 Dose: 100 mls/hr Linezolid (Zyvox 600mg/300ml D5w) 600 mg in 300 mls @ 200 mls/hr IVPB Q12 [facility] PRN Reason: Protocol Last Admin: 02/04/18 21:26 Dose: 200 mls/hr Ceftriaxone Sodium 2 gm/ (Sodium Chloride) 100 mls @ 100 mls/hr IVPB Q12H [facility] PRN Reason: Protocol Last Admin: 02/05/18 04:34 Dose: 100 mls/hr Insulin Glargine (Lantus) 30 unit SC HS [facility] Last Admin: 02/04/18 21:32 Dose: 30 u Insulin Human Regular (Novolin R) 0 unit SC Q6 [facility] PRN Reason: Protocol Last Admin: 02/05/18 05:30 Dose: 12 unit Lorazepam (Ativan) 1 mg IVP Q6H PRN PRN Reason: Anxiety Pantoprazole Sodium (Protonix Susp) 40 mg PO 1000 [facility] Last Admin: 02/04/18 10:31 Dose: 40 mg Tamsulosin HCl (Flomax) 0.4 mg PO DAILY [facility] Last Admin: 02/04/18 10:31 Dose: 0.4 mg - Labs Labs: 02/02/18 06:19 02/02/18 06:16 PT 12.4 SECONDS (9.7-12.2) H 02/02/18 06:19 INR 1.1 02/02/18 06:19 APTT 29 SECONDS (21-34) 02/02/18 06:19 - Constitutional Appears: No Acute Distress - Head Exam Head Exam: NORMAL INSPECTION - Neurological Exam Neuro motor strength exam: Left Upper Extremity: 3, Right Upper Extremity: 3, Left Lower Extremity: 2/1, Right Lower Extremity: 2/1 Additional comments: Neurological unchanged from previous examination. Assessment and Plan (1) Status epilepticus Assessment & Plan: Case discussed with Dr. Baldwin, continue all current medical regimen. Pending EEG result. Recommend blood pressure and glycemic control. Status: Acute
[2018-02-05 06:48] LABS: BASO % 0.2 % (0.0-2.0); EOS % 0.4 % (0.0-4.0); HEMOGLOBIN 13.2 g/dL (12.0-18.0); LYMPH # 1.6 K/uL (1.0-4.3); LYMPH % 19.1 % (20.0-40.0); MEAN CORPUSCULAR HEMOGLOBIN 30.8 pg (27.0-31.0); MEAN CORPUSCULAR HGB CONC 32.8 g/dL (33.0-37.0); MEAN PLATELET VOLUME 10.4 fL (7.2-11.7); MONO # 0.5 K/uL (0.0-0.8); MONO % 5.8 % (0.0-10.0); NEUT # 6.4 K/uL (1.8-7.0); NEUT % 74.5 % (50.0-75.0); NRBC % 0.1 % (0.0-2.0); RBC 4.28 Mil/uL (4.40-5.90); RED CELL DISTRIBUTION WIDTH 12.7 % (11.5-14.5); WHITE BLOOD COUNT 8.6 K/uL (4.8-10.8)
[2018-02-05 07:48] LABS: ALB/GLOB RATIO 1.1 (1.0-2.1); ALBUMIN 3.2 g/dL (3.5-5.0); ALT/SGPT 45 U/L (21-72); AST/SGOT 27 U/L (17-59); BLOOD UREA NITROGEN 39 mg/dL (9-20); CALCIUM 8.4 mg/dl (8.6-10.4); GFR AFRICAN-AMERICAN > 60; GFR NON-AFRICAN AMERICAN 51
--- NOTE | 2018-02-05 08:37 | CON ---
DATE: 02/02/2018 The patient is a very poor historian as the patient is nonverbal and agitated and confused. He was earlier medicated with Haldol. Mental status could not be fully assessed, however, the patient's collateral information was taken from the chart, from his record. HISTORY OF PRESENT ILLNESS: This is a case of a 67-year-old male, who was admitted here for change in mental status, possible stroke versus seizure. According to the chart and as per daughter, the patient was in the phone. He was normal. Then, patient became nonverbal and was stiff. The patient was admitted, code stroke as well as for seizure. The patient was referred for comanagement as the patient was in ICU for several days and now is exhibiting persistent change of mental status. He was seen in his room one-to-one when he was very agitated, fighting with the staff, he was given Haldol. The patient also has NG tube; when he was admitted, he was trying to pull his line. The patient is nonverbal. He is very combative. The patient had multiple CAT scans of the head done, and the last one was on 01/31, and also had MRI of the brain which was done on 01/31 but showed the following results. From the MRI of the brain, it showed no definite background of acute or subacute brain infarction, and in the CAT scan, it showed no acute findings. The patient continues to be very confused and agitated and also very restless, unable to follow redirection and nonverbal. PAST PSYCH HISTORY: Denies any. MEDICAL HISTORY: From review of his record, the patient has history of CHF, COPD, diabetes, history of seizure, hyponatremia, sepsis, delirium. ALCOHOL HISTORY: Denies any. PSYCHOSOCIAL HISTORY: Lives with family. CURRENT MEDICATIONS: List of current medications include acyclovir, Coreg, DuoNeb, Flomax, heparin. The patient is on Keppra 1000 mg twice a day, NovoLin, Protonix, and Tylenol. At home, he was taking Ambien, but he is not taking Ambien. PHYSICAL EXAMINATION: GENERAL: Temperature is 99, pulse 96, blood pressure 168/78, respirations 20, oxygen saturation is 98% on room air. REVIEW OF SYSTEMS: The patient is nonverbal, is very agitated off and on. When admitted, he was trying to pick his line and also his NG tube feeding. The patient could not answer much question, the review of system cannot be fully assessed. MENTAL STATUS EXAMINATION: Obese male, sitting in his room with NG tube, drowsy with off and on bout of agitations, still confused. He is nonverbal, mood seems dysphoric. Affect restricted. Thought process confused. Thought content, the patient cannot be fully assessed as he is nonverbal. The patient is not exhibiting overt signs of psychosis but behavior is very tenuous. Attention and memory seem to be limited. Insight and judgement limited. IMPRESSION: Delirium, metabolic encephalopathy, multifactorial. PLAN AND RECOMMENDATION: The patient seen, meds reviewed. We will keep one-to-one for monitoring. The patient has delirium. He may have Haldol p.r.n. 2 mg IM q.6 p.r.n. for agitation. Review of his labs do show that the patient is taking very high dose of Keppra. His Keppra can give psychiatric side effects of confusion. The patient had EEG done that showed diffuse slowing besides delirium. I would suggest to check level to see if the patient really need a high dose of Keppra, especially that the patient is exhibiting persistent confusion. Keppra can cause confusion as a side effect and see if the patient really need it. For now, we will keep him on Haldol p.r.n., as ordered. Also continue treatment plan as outlined. Carl Hill MD JAMEEL
[2018-02-05] MEDS: Linezolid 600 mg in D5W 300 ml 600 MG/300 ML BAG IVPB SCH ×2 (09:00→21:48)
[2018-02-05] MEDS: levETIRAcetam 1,000 MG in Sodium Chloride 0.9% 100 ML IVPB SCH (10:31)
[2018-02-05] MEDS: Pantoprazole 40 mg Susp UD PO SCH (12:24)
--- NOTE | 2018-02-05 12:52 | CP.PCM.PN ---
Subjective - Date & Time of Evaluation Date of Evaluation: 02/05/18 Time of Evaluation: 07:00 - Subjective Subjective: AROUSABLE CONFUSED Objective - Vital Signs/Intake and Output Vital Signs (last 24 hours): Temp Pulse Resp BP Pulse Ox 99.6 F 98 H 20 128/78 97 02/05/18 07:24 02/05/18 07:24 02/05/18 07:24 02/05/18 12:26 02/05/18 07:24 Intake and Output: 02/05/18 02/05/18 06:59 18:59 Intake Total 900 Balance 900 - Medications Medications: Current Medications Acetaminophen (Tylenol 650mg/20.3ml Solution Ud) 650 mg NG Q6 PRN PRN Reason: GIVE FOR TEMP. 100*F OR ABOVE Last Admin: 02/05/18 05:31 Dose: 650 mg Albuterol/Ipratropium (Duoneb 3 Mg/0.5 Mg (3 Ml) Ud) 3 ml INH RQ6 [facility] Last Admin: 02/05/18 08:26 Dose: 3 ml Aspirin (Aspirin Chewable) 81 mg PO DAILY [facility] Last Admin: 02/05/18 12:24 Dose: 81 mg Carvedilol (Coreg) 12.5 mg PO BID [facility] Last Admin: 02/05/18 12:26 Dose: 12.5 mg Heparin Sodium (Porcine) (Heparin) 5,000 units SC Q8 [facility] Last Admin: 02/05/18 05:31 Dose: 5,000 units Hydralazine HCl (Apresoline) 100 mg PO Q8 [facility] Last Admin: 02/05/18 05:31 Dose: 100 mg Levetiracetam 1,000 mg/ Sodium (Chloride) 110 mls @ 440 mls/hr IVPB Q12H [facility] Last Admin: 02/05/18 10:31 Dose: 440 mls/hr Linezolid (Zyvox 600mg/300ml D5w) 600 mg in 300 mls @ 200 mls/hr IVPB Q12 [facility] PRN Reason: Protocol Last Admin: 02/05/18 09:00 Dose: 200 mls/hr Ceftriaxone Sodium 2 gm/ (Sodium Chloride) 100 mls @ 100 mls/hr IVPB Q12H [facility] PRN Reason: Protocol Last Admin: 02/05/18 04:34 Dose: 100 mls/hr Insulin Glargine (Lantus) 30 unit SC HS [facility] Last Admin: 02/04/18 21:32 Dose: 30 u Insulin Human Regular (Novolin R) 0 unit SC Q6 [facility] PRN Reason: Protocol Last Admin: 02/05/18 12:25 Dose: 8 unit Pantoprazole Sodium (Protonix Susp) 40 mg PO 1000 [facility] Last Admin: 02/05/18 12:24 Dose: 40 mg Tamsulosin HCl (Flomax) 0.4 mg PO DAILY [facility] Last Admin: 02/05/18 12:25 Dose: 0.4 mg - Labs Labs: 02/05/18 06:39 02/05/18 06:39 PT 12.4 SECONDS (9.7-12.2) H 02/02/18 06:19 INR 1.1 02/02/18 06:19 APTT 29 SECONDS (21-34) 02/02/18 06:19 - Constitutional Appears: Non-toxic, Confused, Chronically Ill - Head Exam Head Exam: NORMOCEPHALIC - Eye Exam Eye Exam: PERRL - ENT Exam ENT Exam: Mucous Membranes Dry - Neck Exam Neck Exam: absent: Lymphadenopathy - Respiratory Exam Respiratory Exam: Decreased Breath Sounds - Cardiovascular Exam Cardiovascular Exam: REGULAR RHYTHM - GI/Abdominal Exam GI & Abdominal Exam: Distended - Rectal Exam Rectal Exam: Deferred - Exam Exam: NORMAL INSPECTION - Extremities Exam Extremities Exam: Pedal Edema - Back Exam Back Exam: absent: CVA tenderness (L), CVA tenderness (R) - Neurological Exam Neurological Exam: Altered, CN II-XII Intact Assessment and Plan (1) Sepsis Status: Acute (2) Sepsis Status: Acute (3) COPD (chronic obstructive pulmonary disease) Status: Acute (4) Congestive heart failure Status: Acute (5) Diabetes Status: Acute (6) Encephalopathy Status: Acute
--- NOTE | 2018-02-05 15:05 | PN ---
DATE: 02/05/2018 SUBJECTIVE: The patient is seen in a four-bedded room. The patient went earlier for echo. More recently, his mental status seems to be getting worse. The patient is more lethargic. The patient is no longer agitated. His mittens were taken off and before the patient used to mumble a few words, but now basically nonverbal. He is not agitated. The patient still has NG-tube feeding. The patient is currently on Zyvox, acylovir, and also on Keppra. I did go to the pharmacy to see if there is any drug interaction between the three and pharmacy reports that there is no major drug-drug interaction. We also checked his Keppra level, as the patient is taking 2 gm of Keppra daily to check if the patient is not in the toxic range with Keppra. PHYSICAL EXAMINATION VITAL SIGNS: Temperature is 99.6, heart rate 98, blood pressure 128/78, respirations 20, oxygen saturations 97% on room air. REVIEW OF SYSTEMS: The patient is lethargic, still confused, not agitated when seen in the four-bedded room. The patient cannot converse, but seems to be not in acute respiratory distress. He is moving extremities. The patient seems to be not in pain, but mental status seems to be waxing and waning. Review of systems cannot be fully assessed due to his current state of lethargy. MENTAL STATUS EXAMINATION: Well-developed male, very lethargic. Mood is dysphoric. Speech is nonverbal. Affect is restricted. The patient is still confused. No overt psychosis. No suicidal or homicidal ideation. Attention and memory impaired. Insight and judgment impaired. Impulse control is guarded. IMPRESSION: Delirium; metabolic encephalopathy, multifactorial; history of seizure; and cerebrovascular accident. PLAN AND RECOMMENDATIONS: The patient is seen, medications reviewed. We will check his Keppra level. We will keep the patient in a four-bedded room. Neuro followup as needed. Supportive care. Continue NG tube feeding as ordered. Carl Hill MD
--- NOTE | 2018-02-05 22:25 | CARD ---
APPROVED REPORT EXAM: Two-dimensional and M-mode echocardiogram with Doppler and color Doppler. Other Information Quality : GoodRhythm : INDICATION AMS, (+) BIC Mitral Valve E/A ratio0.0 TDI E/Lateral E'0.0E/Medial E'0.0 <Conclusion> Technically limited and difficult study. Normal LV systolic function. No definte vegetation seen, consider JULIÁN if clinically indicated.
--- NOTE | 2018-02-05 23:26 | CP.PCM.PN ---
Subjective - Date & Time of Evaluation Date of Evaluation: 02/05/18 Time of Evaluation: 17:50 - Subjective Subjective: Pt need Peg placement i discussed with daughter, poor mental status also hinders his ability to improve on physical therapy, pt is drowsy arousable on pain, on NG tube now Objective - Vital Signs/Intake and Output Vital Signs (last 24 hours): Temp Pulse Resp BP Pulse Ox 98.9 F 97 H 20 137/75 97 02/05/18 21:48 02/05/18 16:00 02/05/18 16:00 02/05/18 17:14 02/05/18 16:00 Intake and Output: 02/05/18 02/06/18 18:59 06:59 Intake Total 650 Balance 650 - Medications Medications: Current Medications Acetaminophen (Tylenol 650mg/20.3ml Solution Ud) 650 mg NG Q6 PRN PRN Reason: GIVE FOR TEMP. 100*F OR ABOVE Last Admin: 02/05/18 20:48 Dose: 650 mg Albuterol/Ipratropium (Duoneb 3 Mg/0.5 Mg (3 Ml) Ud) 3 ml INH RQ6 [facility] Last Admin: 02/05/18 20:12 Dose: 3 ml Aspirin (Aspirin Chewable) 81 mg PO DAILY [facility] Last Admin: 02/05/18 12:24 Dose: 81 mg Carvedilol (Coreg) 12.5 mg PO BID [facility] Last Admin: 02/05/18 17:14 Dose: 12.5 mg Heparin Sodium (Porcine) (Heparin) 5,000 units SC Q8 [facility] Last Admin: 02/05/18 21:27 Dose: 5,000 units Hydralazine HCl (Apresoline) 100 mg PO Q8 [facility] Last Admin: 02/05/18 21:33 Dose: 100 mg Linezolid (Zyvox 600mg/300ml D5w) 600 mg in 300 mls @ 200 mls/hr IVPB Q12 [facility] PRN Reason: Protocol Last Admin: 02/05/18 21:48 Dose: 200 mls/hr Ceftriaxone Sodium 2 gm/ (Sodium Chloride) 100 mls @ 100 mls/hr IVPB Q12H [facility] PRN Reason: Protocol Last Admin: 02/05/18 16:00 Dose: 100 mls/hr Levetiracetam 750 mg/ Sodium (Chloride) 107.5 mls @ 430 mls/hr IVPB Q12H [facility] Last Admin: 02/05/18 21:34 Dose: 430 mls/hr Insulin Glargine (Lantus) 20 unit SC BID [facility] Insulin Human Regular (Novolin R) 0 unit SC Q6 [facility] PRN Reason: Protocol Last Admin: 02/05/18 17:40 Dose: 6 unit Pantoprazole Sodium (Protonix Susp) 40 mg PO 1000 [facility] Last Admin: 02/05/18 12:24 Dose: 40 mg Tamsulosin HCl (Flomax) 0.4 mg PO DAILY [facility] Last Admin: 02/05/18 12:25 Dose: 0.4 mg - Labs Labs: 02/05/18 06:39 02/05/18 06:39 PT 12.4 SECONDS (9.7-12.2) H 02/02/18 06:19 INR 1.1 02/02/18 06:19 APTT 29 SECONDS (21-34) 02/02/18 06:19 - Constitutional Appears: Confused, Chronically Ill - Eye Exam Eye Exam: EOMI, Normal appearance, PERRL Pupil Exam: NORMAL ACCOMODATION, PERRL - ENT Exam ENT Exam: Mucous Membranes Moist, Normal Exam - Respiratory Exam Respiratory Exam: Decreased Breath Sounds, Rales - Cardiovascular Exam Cardiovascular Exam: REGULAR RHYTHM, +S1, +S2. absent: Murmur - GI/Abdominal Exam GI & Abdominal Exam: Soft, Normal Bowel Sounds. absent: Tenderness Assessment and Plan (1) Status epilepticus Status: Acute (2) COPD (chronic obstructive pulmonary disease) Status: Acute (3) Congestive heart failure Status: Acute (4) Diabetes Status: Acute (5) Hypernatremia Status: Acute
[2018-02-06] MEDS: (Novolin R) Insulin Human Regular 100 units/ml vial SC SCH ×4 (00:14→18:55)
[2018-02-06] MEDS: Albuterol-Ipratrop 3 mg / 0.5 (3 ml) UD INH SCH ×4 (01:27→19:15)
[2018-02-06] MEDS: Pantoprazole 40 mg Susp UD PO SCH (11:55)
[2018-02-06] MEDS: (Lantus) Insulin Glargine, Recombinant SC SCH ×2 (11:56→18:55)
[2018-02-06] MEDS: Sodium Chloride 0.9% 1,000 ML IV SCH (11:58)
[2018-02-06] MEDS: Linezolid 600 mg in D5W 300 ml 600 MG/300 ML BAG IVPB SCH ×2 (11:58→22:01)
[2018-02-06] MEDS: levETIRAcetam 500 MG in Sodium Chloride 0.9% 100 ML IVPB SCH ×2 (11:58→21:54)
--- NOTE | 2018-02-06 12:00 | RAD ---
PROCEDURE: CHEST RADIOGRAPH, 1 VIEW HISTORY: r/o aspiration COMPARISON: 02/04/2018 FINDINGS: LUNGS: Clear. PLEURA: No pneumothorax or pleural fluid seen. CARDIOVASCULAR: Status post CABG NG tube extends to left upper quadrant of abdomen. OSSEOUS STRUCTURES: No significant abnormalities. VISUALIZED UPPER ABDOMEN: Normal. OTHER FINDINGS: None. IMPRESSION: No active disease.
--- NOTE | 2018-02-06 13:37 | CP.PCM.PN ---
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 He is, however, opening his eyes, and blinks to threat quite well. +gag, +corneals, no verbal output. on exam: as above, PERRL. Objective - Vital Signs/Intake and Output Vital Signs (last 24 hours): Temp Pulse Resp BP Pulse Ox 99.2 F 101 H 23 162/87 H 96 02/06/18 08:00 02/06/18 08:00 02/06/18 08:00 02/06/18 11:55 02/06/18 08:00 Intake and Output: 02/06/18 02/06/18 06:59 18:59 Intake Total 750 Balance 750 - Medications Medications: Current Medications Acetaminophen (Tylenol 650mg/20.3ml Solution Ud) 650 mg NG Q6 PRN PRN Reason: GIVE FOR TEMP. 100*F OR ABOVE Last Admin: 02/05/18 20:48 Dose: 650 mg Albuterol/Ipratropium (Duoneb 3 Mg/0.5 Mg (3 Ml) Ud) 3 ml INH RQ6 [facility] Last Admin: 02/06/18 13:24 Dose: 3 ml Aspirin (Aspirin Chewable) 81 mg PO DAILY [facility] Last Admin: 02/06/18 11:55 Dose: 81 mg Carvedilol (Coreg) 12.5 mg PO BID [facility] Last Admin: 02/06/18 11:55 Dose: 12.5 mg Heparin Sodium (Porcine) (Heparin) 5,000 units SC Q8 [facility] Last Admin: 02/06/18 05:34 Dose: 5,000 units Hydralazine HCl (Apresoline) 100 mg PO Q8 [facility] Last Admin: 02/06/18 05:35 Dose: 100 mg Linezolid (Zyvox 600mg/300ml D5w) 600 mg in 300 mls @ 200 mls/hr IVPB Q12 [facility] PRN Reason: Protocol Last Admin: 02/06/18 11:58 Dose: 200 mls/hr Ceftriaxone Sodium 2 gm/ (Sodium Chloride) 100 mls @ 100 mls/hr IVPB Q12H [facility] PRN Reason: Protocol Last Admin: 02/06/18 04:11 Dose: 100 mls/hr Levetiracetam 500 mg/ Sodium (Chloride) 105 mls @ 420 mls/hr IVPB Q12H [facility] Last Admin: 02/06/18 11:58 Dose: 420 mls/hr Sodium Chloride (Sodium Chloride 0.9%) 1,000 mls @ 50 mls/hr IV .Q20H [facility] Last Admin: 02/06/18 11:58 Dose: 50 mls/hr Insulin Glargine (Lantus) 20 unit SC BID [facility] Last Admin: 02/06/18 11:56 Dose: 20 units Insulin Human Regular (Novolin R) 0 unit SC Q6 [facility] PRN Reason: Protocol Last Admin: 02/06/18 11:56 Dose: 10 unit Pantoprazole Sodium (Protonix Susp) 40 mg PO 1000 [facility] Last Admin: 02/06/18 11:55 Dose: 40 mg Tamsulosin HCl (Flomax) 0.4 mg PO DAILY [facility] Last Admin: 02/06/18 11:43 Dose: Not Given - Labs Labs: 02/05/18 06:39 02/05/18 06:39 PT 12.4 SECONDS (9.7-12.2) H 02/02/18 06:19 INR 1.1 02/02/18 06:19 APTT 29 SECONDS (21-34) 02/02/18 06:19 Assessment and Plan - Assessment and Plan (Free Text) Assessment: 67 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 I will order repeat CT scan and septic workup.
--- NOTE | 2018-02-06 14:40 | CT ---
PROCEDURE: CT HEAD WITHOUT CONTRAST. HISTORY: lethargy/cva COMPARISON: MRI brain without contrast and noncontrast head CT from 01/31/2018. TECHNIQUE: Axial computed tomography images were obtained through the head/brain without intravenous contrast. Radiation dose: Total exam DLP = 975.07 mGy-cm. This CT exam was performed using one or more of the following dose reduction techniques: Automated exposure control, adjustment of the mA and/or kV according to patient size, and/or use of iterative reconstruction technique. FINDINGS: HEMORRHAGE: No intracranial hemorrhage. BRAIN: There is redemonstration of an old lobar infarction in the right occipital lobe with volume loss and ex vacuo dilatation of the occipital horn of the lateral ventricle. There are old lacunar infarctions in bilateral basal ganglia. Also seen is an old infarction in the left frontal subcortical white matter. There are mild chronic microangiopathic changes. There are symmetric senile basal ganglia calcifications. There are extensive atherosclerotic vascular calcifications in the cavernous carotid arteries. VENTRICLES: There is moderate age-related global parenchymal volume loss and proportionate enlargement of the ventricles and cortical sulci. CALVARIUM: The skull base and calvarium are normal. PARANASAL SINUSES: There is moderate polypoid mucosal thickening in the maxillary sinuses and mild mucosal thickening in the left posterior sphenoid sinus. The remaining included paranasal sinuses are predominantly clear. MASTOID AIR CELLS: Predominantly clear. OTHER FINDINGS: None. IMPRESSION: No acute intracranial abnormality.If there is a persistent focal neurologic deficit and an ongoing clinical concern for acute infarction, an MRI of the brain without intravenous contrast would be a more sensitive modality for evaluation of hyperacute/acute ischemic infarction. Old right DIRECTOR REACTOR PROJECTS territory infarction involving the occipital lobe. Old lacunar infarctions in bilateral basal ganglia. Mild chronic microangiopathic changes and moderate age-related global parenchymal volume loss.
--- NOTE | 2018-02-06 16:25 | PN ---
DATE: 02/06/2018 SUBJECTIVE: The patient is seen. Still confused, but today, he is still nonverbal but opens his eyes when called. Still trying to pull his line. His Keppra level was done yesterday and was elevated. His Keppra level was 44 and his dose was reduced down to 500. His blood sugar levels are still very elevated. The last one is 330. Last ammonia level is 18. The patient is off sedative at this time but on ceftriaxone, also on Zyvox. REVIEW OF SYSTEMS: Cannot be fully assessed due to his state of mental status, but patient is manageable. PHYSICAL EXAMINATION: VITAL SIGNS: Temperature 99.2, pulse 101, blood pressure 162/87, respirations 23, oxygen sat is 96%. GENERAL: The patient is a very drowsy and still confused. Opens his eyes from time to time, still restrained. He has NG feeding. He still has mild agitation but nonverbal for most, redirected at this time, but is seen in the safety observation room. MENTAL STATUS EXAMINATION: The patient is in his room, drowsy, confused, with NG feeding, still confused. The patient is mostly nonverbal. Mood is dysphoric. Affect is restricted. Thought process, confused. Thought content, overt psychosis. No suicidal or homicidal ideation. Attention and memory seem to be limited. Insight and judgment limited. Impulse control is guarded at this time. IMPRESSION: Delirium, multifactorial, as well as history of cerebrovascular accident and seizure. PLAN AND RECOMMENDATIONS: The patient is seen, medications reviewed. Continue present management. Patient is currently on lower dose of Keppra. We will monitor his mental status. We will keep the patient safe in the observation room. Also monitor his blood sugar and also we will keep patient off any sedatives for now. This patient is still confused but manageable. Carl Hill MD MTDD
--- NOTE | 2018-02-06 16:41 | PN ---
DATE: LOCATION: [address] [place] [address]. SUBJECTIVE: This 67-year-old male appears to be somewhat lethargic, still NG tube feeding, very poor in general oral intake. The entire chart is reviewed including but not limited to the most recent lab and radiologic study results, current and previous medication list, current and previous medical events. Case discussed with the staff at length. Today's lab showed blood glucose level of 377. The rest of the lab results still pending. PHYSICAL EXAMINATION: GENERAL: A 67-year-old male. VITAL SIGNS: Temperature 99.2, pulse of 98, respiratory rate 20 to 22, blood pressure of 146/82. HEENT: Showed pale, dry oral mucous membranes, nonicteric sclerae. LUNGS: A few scattered crepitation, decreased air entry at bases. HEART: Positive S1 and S2. ABDOMEN: Soft, bowel sounds are present but hypoactive with mild abdominal distention. No mass or organomegaly. No rebound tenderness or guarding. EXTREMITIES: With lower extremity edematous changes. No clubbing or cyanosis. NEUROLOGIC: No new reported neurological deficits, sensory, or motor. IMPRESSION: 1. Seizure disorder by history. 2. Failure to thrive. 3. Malnutrition with hypoalbuminemia. 4. History of hyperlipidemia. 4. Known history of, but not limited to, coronary artery disease, hypertension, as well as status post coronary artery bypass graft. SUGGESTIONS: 1. Continue current management. 2. The patient is a candidate for percutaneous endoscopic gastrostomy insertion upon receiving consent from the family; no final decision yet. 3. Follow up closed with you and peripheral hyperalimentation to be added to the current regimen. Jaya Glass MD
--- NOTE | 2018-02-07 00:41 | CP.PCM.PN ---
Subjective - Date & Time of Evaluation Date of Evaluation: 02/06/18 Time of Evaluation: 19:40 - Subjective Subjective: Pt seen and examined at bedside today Objective - Vital Signs/Intake and Output Vital Signs (last 24 hours): Temp Pulse Resp BP Pulse Ox 98.1 F 97 H 20 149/82 99 02/06/18 23:16 02/06/18 23:16 02/06/18 23:16 02/06/18 23:16 02/06/18 23:16 Intake and Output: 02/06/18 02/07/18 18:59 06:59 Intake Total 750 Balance 750 - Medications Medications: Current Medications Acetaminophen (Tylenol 650mg/20.3ml Solution Ud) 650 mg NG Q6 PRN PRN Reason: GIVE FOR TEMP. 100*F OR ABOVE Last Admin: 02/05/18 20:48 Dose: 650 mg Albuterol/Ipratropium (Duoneb 3 Mg/0.5 Mg (3 Ml) Ud) 3 ml INH RQ6 [facility] Last Admin: 02/06/18 19:15 Dose: 3 ml Aspirin (Aspirin Chewable) 81 mg PO DAILY [facility] Last Admin: 02/06/18 11:55 Dose: 81 mg Carvedilol (Coreg) 12.5 mg PO BID [facility] Last Admin: 02/06/18 19:04 Dose: 12.5 mg Heparin Sodium (Porcine) (Heparin) 5,000 units SC Q8 [facility] Last Admin: 02/06/18 21:57 Dose: 5,000 units Hydralazine HCl (Apresoline) 100 mg PO Q8 [facility] Last Admin: 02/06/18 22:01 Dose: 100 mg Linezolid (Zyvox 600mg/300ml D5w) 600 mg in 300 mls @ 200 mls/hr IVPB Q12 [facility] PRN Reason: Protocol Last Admin: 02/06/18 22:01 Dose: 200 mls/hr Ceftriaxone Sodium 2 gm/ (Sodium Chloride) 100 mls @ 100 mls/hr IVPB Q12H [facility] PRN Reason: Protocol Last Admin: 02/06/18 18:54 Dose: 100 mls/hr Levetiracetam 500 mg/ Sodium (Chloride) 105 mls @ 420 mls/hr IVPB Q12H [facility] Last Admin: 02/06/18 21:54 Dose: 420 mls/hr Sodium Chloride (Sodium Chloride 0.9%) 1,000 mls @ 50 mls/hr IV .Q20H [facility] Last Admin: 02/06/18 11:58 Dose: 50 mls/hr Insulin Glargine (Lantus) 20 unit SC BID [facility] Last Admin: 02/06/18 18:55 Dose: Not Given Insulin Human Regular (Novolin R) 0 unit SC Q6 [facility] PRN Reason: Protocol Last Admin: 02/06/18 18:55 Dose: Not Given Pantoprazole Sodium (Protonix Susp) 40 mg PO 1000 [facility] Last Admin: 02/06/18 11:55 Dose: 40 mg Tamsulosin HCl (Flomax) 0.4 mg PO DAILY [facility] Last Admin: 02/06/18 11:43 Dose: Not Given - Labs Labs: 02/05/18 06:39 02/05/18 06:39 PT 12.4 SECONDS (9.7-12.2) H 02/02/18 06:19 INR 1.1 02/02/18 06:19 APTT 29 SECONDS (21-34) 02/02/18 06:19 Assessment and Plan (1) Status epilepticus Status: Acute (2) COPD (chronic obstructive pulmonary disease) Status: Acute (3) Congestive heart failure Status: Acute (4) Diabetes Status: Acute (5) Hypernatremia Status: Acute
[2018-02-07] MEDS: Albuterol-Ipratrop 3 mg / 0.5 (3 ml) UD INH SCH ×4 (02:01→19:12)
[2018-02-07] MEDS: (Novolin R) Insulin Human Regular 100 units/ml vial SC SCH ×4 (07:04→18:00)
[2018-02-07] MEDS: Sodium Chloride 0.9% 1,000 ML IV SCH (07:05)
--- NOTE | 2018-02-07 07:10 | CP.PCM.PN ---
Subjective - Date & Time of Evaluation Date of Evaluation: 02/07/18 Time of Evaluation: 07:09 - Subjective Subjective: Mr. Latif was seen and examined at the bedside. He is not responding to any tactile stimuli, but he has corneal reflex, left eye 3 mm and right eye 2mm sluggish. He occasional moves his upper extremities but not the lower extremities. He is warm to touch but not febrile. He is schedule for peg insertion today. CT scan of the head showed no acute intracranial abnormality. There is an old right FLOUR TESTER territory infarction involving occipital lobe. Old lacunar infarction s in the bilateral basal ganglia. Mild chronic microangiopathic changes and moderate age-related global parenchymal volume loss. Latest result of EEG showed no seizure activity. He remains on 1:1 sitter for patient safety. Objective - Vital Signs/Intake and Output Vital Signs (last 24 hours): Temp Pulse Resp BP Pulse Ox 98.1 F 97 H 20 149/82 99 02/06/18 23:16 02/06/18 23:16 02/06/18 23:16 02/06/18 23:16 02/06/18 23:16 Intake and Output: 02/07/18 02/07/18 06:59 18:59 Intake Total 950 Balance 950 - Medications Medications: Current Medications Acetaminophen (Tylenol 650mg/20.3ml Solution Ud) 650 mg NG Q6 PRN PRN Reason: GIVE FOR TEMP. 100*F OR ABOVE Last Admin: 02/05/18 20:48 Dose: 650 mg Albuterol/Ipratropium (Duoneb 3 Mg/0.5 Mg (3 Ml) Ud) 3 ml INH RQ6 [facility] Last Admin: 02/07/18 02:01 Dose: 3 ml Aspirin (Aspirin Chewable) 81 mg PO DAILY [facility] Last Admin: 02/06/18 11:55 Dose: 81 mg Carvedilol (Coreg) 12.5 mg PO BID [facility] Last Admin: 02/06/18 19:04 Dose: 12.5 mg Heparin Sodium (Porcine) (Heparin) 5,000 units SC Q8 [facility] Last Admin: 02/07/18 05:47 Dose: 5,000 units Hydralazine HCl (Apresoline) 100 mg PO Q8 [facility] Last Admin: 02/07/18 05:48 Dose: 100 mg Linezolid (Zyvox 600mg/300ml D5w) 600 mg in 300 mls @ 200 mls/hr IVPB Q12 [facility] PRN Reason: Protocol Last Admin: 02/06/18 22:01 Dose: 200 mls/hr Ceftriaxone Sodium 2 gm/ (Sodium Chloride) 100 mls @ 100 mls/hr IVPB Q12H [facility] PRN Reason: Protocol Last Admin: 02/07/18 03:57 Dose: 100 mls/hr Levetiracetam 500 mg/ Sodium (Chloride) 105 mls @ 420 mls/hr IVPB Q12H [facility] Last Admin: 02/06/18 21:54 Dose: 420 mls/hr Sodium Chloride (Sodium Chloride 0.9%) 1,000 mls @ 50 mls/hr IV .Q20H [facility] Last Admin: 02/07/18 07:05 Dose: Not Given Insulin Glargine (Lantus) 20 unit SC BID [facility] Last Admin: 02/06/18 18:55 Dose: Not Given Insulin Human Regular (Novolin R) 0 unit SC Q6 [facility] PRN Reason: Protocol Last Admin: 02/07/18 07:04 Dose: Not Given Pantoprazole Sodium (Protonix Susp) 40 mg PO 1000 [facility] Last Admin: 02/06/18 11:55 Dose: 40 mg Tamsulosin HCl (Flomax) 0.4 mg PO DAILY [facility] Last Admin: 02/06/18 11:43 Dose: Not Given - Labs Labs: 02/05/18 06:39 02/05/18 06:39 PT 12.4 SECONDS (9.7-12.2) H 02/02/18 06:19 INR 1.1 02/02/18 06:19 APTT 29 SECONDS (21-34) 02/02/18 06:19 - Constitutional Appears: No Acute Distress - Head Exam Head Exam: NORMAL INSPECTION - Eye Exam Additional comments: left eye 3 mm and right eye 2mm sluggish. Assessment and Plan (1) Status epilepticus Assessment & Plan: Case discussed with Dr. Baldwin, continue all current medical regimen. Recommend MRI of the brain without contrast. This can be done either before or after peg insertion. Status: Acute
[2018-02-07 08:32] LABS: BASO % 0.6 % (0.0-2.0); EOS % 0.6 % (0.0-4.0); HEMOGLOBIN 13.5 g/dL (12.0-18.0); LYMPH # 1.7 K/uL (1.0-4.3); MEAN CELL VOLUME 95.6 fL (80.0-94.0); MEAN CORPUSCULAR HEMOGLOBIN 31.2 pg (27.0-31.0); MEAN CORPUSCULAR HGB CONC 32.6 g/dL (33.0-37.0); MEAN PLATELET VOLUME 11.3 fL (7.2-11.7); MONO # 0.5 K/uL (0.0-0.8); NEUT # 4.4 K/uL (1.8-7.0); NEUT % 65.8 % (50.0-75.0); NRBC % 0.2 % (0.0-2.0); RBC 4.32 Mil/uL (4.40-5.90); RED CELL DISTRIBUTION WIDTH 12.8 % (11.5-14.5); WHITE BLOOD COUNT 6.7 K/uL (4.8-10.8)
[2018-02-07 08:54] LABS: ALBUMIN 3.2 g/dL (3.5-5.0); CALCIUM 8.5 mg/dl (8.6-10.4)
[2018-02-07] MEDS: levETIRAcetam 500 MG in Sodium Chloride 0.9% 100 ML IVPB SCH ×2 (10:42→21:52)
[2018-02-07] MEDS: Pantoprazole 40 mg Susp UD PO SCH ×2 (10:43→13:34)
[2018-02-07] MEDS: (Lantus) Insulin Glargine, Recombinant SC SCH ×2 (10:45→18:05)
[2018-02-07] MEDS: Linezolid 600 mg in D5W 300 ml 600 MG/300 ML BAG IVPB SCH ×3 (10:46→21:57)
[2018-02-07] MEDS ORDERED: Midazolam 2 MG/2 ML VIAL ONE (11:29)
[2018-02-07] MEDS ORDERED: Dextrose 5%/0.45% NS 1,000 ML IV SCH (14:15)
--- NOTE | 2018-02-07 16:32 | CP.PCM.CON ---
History of Present Illness - History of Present Illness History of Present Illness: Surgery Progress note. Dr. Giordano Hx obtained from nursing staff, daughter at bedside, and chart review due to current patient condition. 67yo M with PMHx of CAD, Multiple CVAs, PVD, DM, HTN has been hospitalized due to AMS, found in bed with decreased responsiveness by family on 01/16. Neurology following, CVA vs. seizures. Surgery consulted for gastrostomy placement. Today , patient had an EGD performed by Dr. Samaniego and PEG was unsuccessful due to non- visualized transillumination. Daughter at bedside is agreeable for surgical gastrostomy placement for enteral feeds. ROS unobtainable due to current patient condition. PMD: Dr. Rose PMHx: CAD, multiple CVA, PVD, DM, HTN PSHx: CABG 15 years ago Social: lives alone. Non-smoker, occasional alcohol. No drug use. Family Hx: No history of seizure disorder in the family. NKDA Review of Systems - Review of Systems Systems not reviewed;Unavailable: Altered Mental Status Past Patient History - Past Medical History & Family History Past Medical History?: Yes - Past Social History Smoking Status: Never Smoked - CARDIAC Hx Hypertension: Yes - PULMONARY Hx Respiratory Disorders: Yes Other/Comment: s o b on exertion - NEUROLOGICAL HX Cerebrovascular Accident: Yes - HEENT Hx HEENT Problems: Yes Hx Cataracts: Yes (bilateral cat ext with iol) - RENAL Hx Chronic Kidney Disease: No - ENDOCRINE/METABOLIC Hx Diabetes Mellitus Type 2: Yes - HEMATOLOGICAL/ONCOLOGICAL Hx Blood Disorders: No - INTEGUMENTARY Hx Dermatological Problems: Yes Other/Comment: small ulcers both great toes - MUSCULOSKELETAL/RHEUMATOLOGICAL Hx Musculoskeletal Disorders: No Hx Falls: Yes - GASTROINTESTINAL Hx Gastrointestinal Disorders: No - GENITOURINARY/GYNECOLOGICAL Hx Genitourinary Disorders: No - PSYCHIATRIC Hx Substance Use: No - SURGICAL HISTORY Hx Coronary Artery Bypass Graft: Yes (8 yrs ago) - ANESTHESIA Hx Anesthesia: Yes Hx Anesthesia Reactions: No Hx Malignant Hyperthermia: No Meds Allergies/Adverse Reactions: Allergies Allergy/AdvReac Type Severity Reaction Status Date / Time No Known Allergies Allergy Verified 01/08/18 19:23 - Medications Medications: Current Medications Acetaminophen (Tylenol 650mg/20.3ml Solution Ud) 650 mg NG Q6 PRN PRN Reason: GIVE FOR TEMP. 100*F OR ABOVE Last Admin: 02/05/18 20:48 Dose: 650 mg Albuterol/Ipratropium (Duoneb 3 Mg/0.5 Mg (3 Ml) Ud) 3 ml INH RQ6 [facility] Last Admin: 02/07/18 13:38 Dose: Not Given Aspirin (Aspirin Chewable) 81 mg PO DAILY [facility] Last Admin: 02/07/18 13:33 Dose: Not Given Carvedilol (Coreg) 12.5 mg PO BID [facility] Last Admin: 02/07/18 13:33 Dose: Not Given Heparin Sodium (Porcine) (Heparin) 5,000 units SC Q8 [facility] Last Admin: 02/07/18 14:13 Dose: 5,000 units Hydralazine HCl (Apresoline) 100 mg PO Q8 [facility] Last Admin: 02/07/18 13:34 Dose: Not Given Linezolid (Zyvox 600mg/300ml D5w) 600 mg in 300 mls @ 200 mls/hr IVPB Q12 [facility] PRN Reason: Protocol Last Admin: 02/07/18 11:06 Dose: Not Given Ceftriaxone Sodium 2 gm/ (Sodium Chloride) 100 mls @ 100 mls/hr IVPB Q12H [facility] PRN Reason: Protocol Last Admin: 02/07/18 16:06 Dose: 100 mls/hr Levetiracetam 500 mg/ Sodium (Chloride) 105 mls @ 420 mls/hr IVPB Q12H [facility] Last Admin: 02/07/18 10:42 Dose: 420 mls/hr Dextrose/Sodium Chloride (Dextrose 5%/0.45% Ns 1000 Ml) 1,000 mls @ 40 mls/hr IV .Q24H [facility] Last Admin: 02/07/18 16:04 Dose: 40 mls/hr Insulin Glargine (Lantus) 20 unit SC BID [facility] Last Admin: 02/07/18 10:45 Dose: 20 units Insulin Human Regular (Novolin R) 0 unit SC Q6 [facility] PRN Reason: Protocol Last Admin: 02/07/18 11:29 Dose: Not Given Pantoprazole Sodium (Protonix Susp) 40 mg PO 1000 [facility] Last Admin: 02/07/18 13:34 Dose: Not Given Tamsulosin HCl (Flomax) 0.4 mg PO DAILY [facility] Last Admin: 02/07/18 10:45 Dose: Not Given Physical Exam - Constitutional Appears: Non-toxic, No Acute Distress - Head Exam Head Exam: ATRAUMATIC, NORMAL INSPECTION, NORMOCEPHALIC - ENT Exam ENT Exam: Mucous Membranes Moist - Respiratory Exam Respiratory Exam: absent: Accessory Muscle Use, Respiratory Distress - Cardiovascular Exam Cardiovascular Exam: RRR. absent: JVD - GI/Abdominal Exam GI & Abdominal Exam: Soft. absent: Distended, Firm, Guarding, Hernia, Tenderness Additional comments: Attempted PEG puncture site noted, no bleeding. Dressing clean, dry and intact. No previous abdominal surgical scars noted - Extremities Exam Extremities exam: Positive for: normal inspection. Negative for: calf tenderness - Neurological Exam Additional comments: Patient is not alert to verbal or tactile stimuli Results - Vital Signs Recent Vital Signs: Last Vital Signs Temp 98.9 F 02/07/18 11:45 Pulse 102 H 02/07/18 12:15 Resp 28 H 02/07/18 12:15 BP 134/86 02/07/18 12:15 Pulse Ox 100 02/07/18 12:15 - Labs Result Diagrams: 02/07/18 08:25 02/07/18 08:25 Labs: Laboratory Results - last 24 hr 02/06/18 02/07/18 02/07/18 21:45 00:18 06:24 WBC RBC Hgb Hct MCV MCH MCHC RDW Plt Count MPV Neut % (Auto) Lymph % (Auto) [place] % (Auto) Eos % (Auto) Baso % (Auto) Neut # (Auto) Lymph # (Auto) [place] # (Auto) Eos # (Auto) Baso # (Auto) Sodium Potassium Chloride Carbon Dioxide Anion Gap BUN Creatinine Est GFR ( Amer) Est GFR (Non-Af Amer) POC Glucose (mg/dL) 270 H 298 H 349 H Random Glucose Calcium Total Bilirubin AST ALT Alkaline Phosphatase Total Protein Albumin Globulin Albumin/Globulin Ratio 02/07/18 02/07/18 02/07/18 08:25 08:25 11:05 WBC 6.7 RBC 4.32 L Hgb 13.5 Hct 41.3 MCV 95.6 H MCH 31.2 H MCHC 32.6 L RDW 12.8 Plt Count 140 D MPV 11.3 Neut % (Auto) 65.8 Lymph % (Auto) 26.0 [place] % (Auto) 7.0 Eos % (Auto) 0.6 Baso % (Auto) 0.6 Neut # (Auto) 4.4 Lymph # (Auto) 1.7 [place] # (Auto) 0.5 Eos # (Auto) 0.0 Baso # (Auto) 0.0 Sodium 156 H Potassium 4.4 Chloride 113 H Carbon Dioxide 30 Anion Gap 17 BUN 38 H Creatinine 1.5 Est GFR ( Amer) 56 Est GFR (Non-Af Amer) 47 POC Glucose (mg/dL) 333 H Random Glucose 371 H Calcium 8.5 L Total Bilirubin 0.6 AST 24 ALT 36 Alkaline Phosphatase 83 Total Protein 6.4 Albumin 3.2 L Globulin 3.2 Albumin/Globulin Ratio 1.0 Assessment & Plan - Assessment and Plan (Free Text) Assessment: 67yo M with CVA vs. seizures. Surgery consulted for gastrostomy placement Plan: - Hold tube feeds past mn - To OR 02/08 for gastrostomy placement - Surgery consent obtained and on chart Further recs as per Dr. Pasquale Arango PGY1 surgery pager: [phone]
--- NOTE | 2018-02-07 18:34 | PN ---
DATE: SUBJECTIVE: The patient is seen. The patient is still confused and lethargic, seen in a four-bedded room. His Keppra dose lowered to 500 q.12 hours. The patient went also for EGD and also possible PEG placement, but was not done and referred for surgical consult. The patient had EGD done by Dr. Samaniego. The patient is still non-verbal, opens his eyes at times. PHYSICAL EXAMINATION VITAL SIGNS: Temperature is 98.9, pulse rate 102, blood pressure is 134/86, respirations 28, oxygen saturation is 100%. REVIEW OF SYSTEMS: GENERAL: The patient is still lethargic, confused, with some mittens which were taken off earlier. The patient is agitated, the patient is off NG-tube now, and mostly non-verbal. He opens his eyes at times. He is not in acute respiratory distress. He cannot follow the commands. The patient is off NGT, seen at bedside with his daughter. The patient's daughter is worried about the patient;s fluctuating mental status where the patient is severely lethargic and confused at this time and review of systems cannot be fully assessed. MENTAL STATUS EXAMINATION: Very drowsy male, seen in his room in hospital gown in a four-bedded room. Still very confused, lethargic. Speech, the patient is mostly non-verbal. Affect is restricted. Thought process, confused. Thought content, no overt psychosis. No suicidal or homicidal ideation. Attention and memory are impaired. Insight and judgment are impaired. Impulse control is fair at this time. LABORATORY DATA: Review of his labs, the patient's sodium is elevated 156, glucose is 333, BUN is 38. IMPRESSION: Delirium, metabolic encephalopathy, multifactorial; history of seizure versus cerebrovascular accident. PLAN AND RECOMMENDATIONS: The patient is seen, medications reviewed. The patient is for PEG tube placement. I do suggest for now if it is possible that the patient could be taken off the Keppra and observe for 24 hours and see if the patient's mental status will improve. Mostly, his blood sugar is still elevated, have to monitor blood sugar. Continue treatment plan as outlined. The patient is not taking any psych meds for now. The patient is on Zyvox. Carl Hill MD [facility] # [id number]
[2018-02-07] MEDS ORDERED: (Novolin R) Insulin Human Regular 100 units/ml vial SC SCH (21:30)
--- NOTE | 2018-02-07 22:37 | CP.PCM.PN ---
Subjective - Date & Time of Evaluation Date of Evaluation: 02/07/18 Time of Evaluation: 18:00 Objective - Vital Signs/Intake and Output Vital Signs (last 24 hours): Temp Pulse Resp BP Pulse Ox 97.4 F L 107 H 20 136/64 98 02/07/18 16:00 02/07/18 16:00 02/07/18 16:00 02/07/18 17:57 02/07/18 16:00 Intake and Output: 02/07/18 02/08/18 18:59 06:59 Intake Total 400 Balance 400 - Medications Medications: Current Medications Acetaminophen (Tylenol 650mg/20.3ml Solution Ud) 650 mg NG Q6 PRN PRN Reason: GIVE FOR TEMP. 100*F OR ABOVE Last Admin: 02/05/18 20:48 Dose: 650 mg Albuterol/Ipratropium (Duoneb 3 Mg/0.5 Mg (3 Ml) Ud) 3 ml INH RQ6 [facility] Last Admin: 02/07/18 19:12 Dose: 3 ml Aspirin (Aspirin Chewable) 81 mg PO DAILY [facility] Last Admin: 02/07/18 13:33 Dose: Not Given Carvedilol (Coreg) 12.5 mg PO BID [facility] Last Admin: 02/07/18 17:57 Dose: 12.5 mg Heparin Sodium (Porcine) (Heparin) 5,000 units SC Q8 [facility] Last Admin: 02/07/18 14:13 Dose: 5,000 units Hydralazine HCl (Apresoline) 100 mg PO Q8 [facility] Last Admin: 02/07/18 21:56 Dose: Not Given Linezolid (Zyvox 600mg/300ml D5w) 600 mg in 300 mls @ 200 mls/hr IVPB Q12 [facility] PRN Reason: Protocol Last Admin: 02/07/18 21:57 Dose: 200 mls/hr Ceftriaxone Sodium 2 gm/ (Sodium Chloride) 100 mls @ 100 mls/hr IVPB Q12H [facility] PRN Reason: Protocol Last Admin: 02/07/18 16:06 Dose: 100 mls/hr Levetiracetam 500 mg/ Sodium (Chloride) 105 mls @ 420 mls/hr IVPB Q12H [facility] Last Admin: 02/07/18 21:52 Dose: 420 mls/hr Dextrose/Sodium Chloride (Dextrose 5%/0.45% Ns 1000 Ml) 1,000 mls @ 40 mls/hr IV .Q24H [facility] Last Admin: 02/07/18 16:04 Dose: 40 mls/hr Insulin Glargine (Lantus) 20 unit SC BID [facility] Last Admin: 02/07/18 18:05 Dose: Not Given Insulin Human Regular (Novolin R) 0 unit SC Q6 [facility] PRN Reason: Protocol Last Admin: 02/07/18 18:00 Dose: 8 unit Pantoprazole Sodium (Protonix Susp) 40 mg PO 1000 [facility] Last Admin: 02/07/18 13:34 Dose: Not Given Tamsulosin HCl (Flomax) 0.4 mg PO DAILY [facility] Last Admin: 02/07/18 10:45 Dose: Not Given - Labs Labs: 02/07/18 08:25 02/07/18 08:25 PT 12.4 SECONDS (9.7-12.2) H 02/02/18 06:19 INR 1.1 02/02/18 06:19 APTT 29 SECONDS (21-34) 02/02/18 06:19 Assessment and Plan (1) Status epilepticus Status: Acute (2) COPD (chronic obstructive pulmonary disease) Status: Acute (3) Congestive heart failure Status: Acute (4) Diabetes Status: Acute (5) Hypernatremia Status: Acute
[2018-02-08] MEDS: Albuterol-Ipratrop 3 mg / 0.5 (3 ml) UD INH SCH ×4 (01:54→20:00)
[2018-02-08] MEDS: (Novolin R) Insulin Human Regular 100 units/ml vial SC SCH ×4 (06:52→18:00)
--- NOTE | 2018-02-08 07:32 | CP.PCM.PN ---
Subjective - Date & Time of Evaluation Date of Evaluation: 02/08/18 Time of Evaluation: 07:28 - Subjective Subjective: Mr. Latif was seen and examined at the bedside. He is not responding to any tactile stimuli, but he has corneal reflex, left eye 3 mm and right eye 2mm sluggish. He does not move all extremities spontaneously. He is warm to touch but not febrile. He is schedule for peg insertion today. He remains on 1:1 sitter for patient safety. There was no untoward events overnight. Objective - Vital Signs/Intake and Output Vital Signs (last 24 hours): Temp Pulse Resp BP Pulse Ox 98.3 F 100 H 20 126/79 98 02/08/18 06:58 02/08/18 06:58 02/08/18 06:58 02/08/18 06:58 02/08/18 06:58 Intake and Output: 02/08/18 02/08/18 06:59 18:59 Intake Total 890 Balance 890 - Medications Medications: Current Medications Acetaminophen (Tylenol 650mg/20.3ml Solution Ud) 650 mg NG Q6 PRN PRN Reason: GIVE FOR TEMP. 100*F OR ABOVE Last Admin: 02/05/18 20:48 Dose: 650 mg Albuterol/Ipratropium (Duoneb 3 Mg/0.5 Mg (3 Ml) Ud) 3 ml INH RQ6 [facility] Last Admin: 02/08/18 01:54 Dose: 3 ml Aspirin (Aspirin Chewable) 81 mg PO DAILY [facility] Last Admin: 02/07/18 13:33 Dose: Not Given Carvedilol (Coreg) 12.5 mg PO BID [facility] Last Admin: 02/07/18 17:57 Dose: 12.5 mg Heparin Sodium (Porcine) (Heparin) 5,000 units SC Q8 [facility] Last Admin: 02/07/18 14:13 Dose: 5,000 units Hydralazine HCl (Apresoline) 100 mg PO Q8 [facility] Last Admin: 02/08/18 06:47 Dose: Not Given Linezolid (Zyvox 600mg/300ml D5w) 600 mg in 300 mls @ 200 mls/hr IVPB Q12 [facility] PRN Reason: Protocol Last Admin: 02/07/18 21:57 Dose: 200 mls/hr Ceftriaxone Sodium 2 gm/ (Sodium Chloride) 100 mls @ 100 mls/hr IVPB Q12H [facility] PRN Reason: Protocol Last Admin: 02/08/18 03:45 Dose: 100 mls/hr Levetiracetam 500 mg/ Sodium (Chloride) 105 mls @ 420 mls/hr IVPB Q12H [facility] Last Admin: 02/07/18 21:52 Dose: 420 mls/hr Dextrose/Sodium Chloride (Dextrose 5%/0.45% Ns 1000 Ml) 1,000 mls @ 40 mls/hr IV .Q24H [facility] Last Admin: 02/07/18 16:04 Dose: 40 mls/hr Insulin Glargine (Lantus) 20 unit SC BID [facility] Last Admin: 02/07/18 18:05 Dose: Not Given Insulin Human Regular (Novolin R) 0 unit SC Q6 [facility] PRN Reason: Protocol Last Admin: 02/08/18 06:52 Dose: 8 unit Pantoprazole Sodium (Protonix Susp) 40 mg PO 1000 [facility] Last Admin: 02/07/18 13:34 Dose: Not Given Tamsulosin HCl (Flomax) 0.4 mg PO DAILY [facility] Last Admin: 02/07/18 10:45 Dose: Not Given - Labs Labs: 02/07/18 08:25 02/07/18 08:25 PT 12.4 SECONDS (9.7-12.2) H 02/02/18 06:19 INR 1.1 02/02/18 06:19 APTT 29 SECONDS (21-34) 02/02/18 06:19 - Constitutional Appears: No Acute Distress - Head Exam Head Exam: NORMAL INSPECTION - Neurological Exam Neurological Exam: Awake Neuro motor strength exam: Left Upper Extremity: 0, Right Upper Extremity: 0, Left Lower Extremity: 0, Right Lower Extremity: 0 Additional comments: He is lethargic and not unable to follow simple commands. Assessment and Plan (1) Status epilepticus Assessment & Plan: Case discussed with Dr. Perez, continue all medical regimen. Recommend MRI of the brain. Status: Acute
[2018-02-08 07:36] LABS: BASO % 0.7 % (0.0-2.0); EOS % 0.4 % (0.0-4.0); HEMOGLOBIN 13.5 g/dL (12.0-18.0); LYMPH # 1.6 K/uL (1.0-4.3); LYMPH % 25.4 % (20.0-40.0); MEAN CELL VOLUME 95.7 fL (80.0-94.0); MEAN CORPUSCULAR HEMOGLOBIN 31.1 pg (27.0-31.0); MEAN CORPUSCULAR HGB CONC 32.5 g/dL (33.0-37.0); MEAN PLATELET VOLUME 11.5 fL (7.2-11.7); MONO # 0.5 K/uL (0.0-0.8); MONO % 7.6 % (0.0-10.0); NEUT # 4.2 K/uL (1.8-7.0); NEUT % 65.9 % (50.0-75.0); NRBC % 0.4 % (0.0-2.0); RBC 4.35 Mil/uL (4.40-5.90); RED CELL DISTRIBUTION WIDTH 13.1 % (11.5-14.5); WHITE BLOOD COUNT 6.3 K/uL (4.8-10.8)
[2018-02-08 07:38] LABS: CALCIUM 8.5 mg/dl (8.6-10.4)
[2018-02-08] MEDS ORDERED: Remifentanil 1 mg/3 ml Vial IV ONE (08:10)
--- NOTE | 2018-02-08 08:21 | EEG ---
DATE: 02/02/2018 TECHNIQUE: This is a 16-channel EEG recorded using 10-20 international electrode system. Continuous EEG monitoring was done using spike detection services. All electrodes were referenced A1/A2 or P1/P2 referentially. BACKGROUND RHYTHM: There was a 6-7 Hz posterior dominant rhythm that was reactive, symmetric, and attenuating to eye opening. There was normal sleep captured. There was triphasic waves present throughout the record anterior posterior in distribution. There was diffused generalized slowing noted. There were no interictal epileptiform discharges noted. Activation maneuvers did not produce any abnormalities. There were no subclinical or clinical seizures. IMPRESSION: This is an abnormal awake and sleep electroencephalogram with the presence of triphasic waves indicative of metabolic encephalopathy. Clinical correlation is required. Elder Baldwin MD
[2018-02-08] MEDS: Pantoprazole 40 mg Susp UD PO SCH (10:38)
[2018-02-08] MEDS: levETIRAcetam 500 MG in Sodium Chloride 0.9% 100 ML IVPB SCH ×2 (11:02→22:07)
[2018-02-08] MEDS: Linezolid 600 mg in D5W 300 ml 600 MG/300 ML BAG IVPB SCH (11:02)
[2018-02-08] MEDS: (Lantus) Insulin Glargine, Recombinant SC SCH ×2 (11:05→18:00)
--- NOTE | 2018-02-08 11:54 | CP.PCM.PN ---
Subjective - Date & Time of Evaluation Date of Evaluation: 02/08/18 Time of Evaluation: 07:00 - Subjective Subjective: Surgery Progress note. Dr. Giordano Pt seen and examined at bedside. No acute events overnight as per nursing staff. Not responsive to verbal or tactile stimuli OR Gastrostomy tube placement cancelled this morning due to worsening Hypernatremia. Objective - Vital Signs/Intake and Output Vital Signs (last 24 hours): Temp Pulse Resp BP Pulse Ox 98.3 F 101 H 20 126/79 98 02/08/18 06:58 02/08/18 10:12 02/08/18 06:58 02/08/18 10:12 02/08/18 10:12 Intake and Output: 02/08/18 02/08/18 06:59 18:59 Intake Total 890 Balance 890 - Medications Medications: Current Medications Acetaminophen (Tylenol 650mg/20.3ml Solution Ud) 650 mg NG Q6 PRN PRN Reason: GIVE FOR TEMP. 100*F OR ABOVE Last Admin: 02/05/18 20:48 Dose: 650 mg Albuterol/Ipratropium (Duoneb 3 Mg/0.5 Mg (3 Ml) Ud) 3 ml INH RQ6 [facility] Last Admin: 02/08/18 07:32 Dose: 3 ml Aspirin (Aspirin Chewable) 81 mg PO DAILY [facility] Last Admin: 02/08/18 10:37 Dose: Not Given Carvedilol (Coreg) 12.5 mg PO BID [facility] Last Admin: 02/08/18 10:38 Dose: Not Given Heparin Sodium (Porcine) (Heparin) 5,000 units SC Q8 [facility] Last Admin: 02/07/18 14:13 Dose: 5,000 units Hydralazine HCl (Apresoline) 100 mg PO Q8 [facility] Last Admin: 02/08/18 06:47 Dose: Not Given Linezolid (Zyvox 600mg/300ml D5w) 600 mg in 300 mls @ 200 mls/hr IVPB Q12 [facility] PRN Reason: Protocol Last Admin: 02/08/18 11:02 Dose: 200 mls/hr Ceftriaxone Sodium 2 gm/ (Sodium Chloride) 100 mls @ 100 mls/hr IVPB Q12H [facility] PRN Reason: Protocol Last Admin: 02/08/18 03:45 Dose: 100 mls/hr Levetiracetam 500 mg/ Sodium (Chloride) 105 mls @ 420 mls/hr IVPB Q12H [facility] Last Admin: 02/08/18 11:02 Dose: 420 mls/hr Dextrose (Dextrose 5% In Water 1000 Ml) 1,000 mls @ 125 mls/hr IV .Q8H [facility] Last Admin: 02/08/18 11:15 Dose: 125 mls/hr Insulin Glargine (Lantus) 20 unit SC BID [facility] Last Admin: 02/08/18 11:05 Dose: Not Given Insulin Human Regular (Novolin R) 0 unit SC Q6 [facility] PRN Reason: Protocol Last Admin: 02/08/18 06:52 Dose: 8 unit Pantoprazole Sodium (Protonix Susp) 40 mg PO 1000 [facility] Last Admin: 02/08/18 10:38 Dose: Not Given Tamsulosin HCl (Flomax) 0.4 mg PO DAILY [facility] Last Admin: 02/08/18 10:38 Dose: Not Given - Labs Labs: 02/08/18 07:07 02/08/18 07:07 PT 12.4 SECONDS (9.7-12.2) H 02/02/18 06:19 INR 1.1 02/02/18 06:19 APTT 29 SECONDS (21-34) 02/02/18 06:19 - Constitutional Appears: Non-toxic, No Acute Distress - Head Exam Head Exam: ATRAUMATIC, NORMAL INSPECTION, NORMOCEPHALIC - ENT Exam ENT Exam: Mucous Membranes Moist - GI/Abdominal Exam GI & Abdominal Exam: Soft. absent: Distended, Firm, Guarding, Rigid, Tenderness - Extremities Exam Extremities Exam: Normal Inspection - Neurological Exam Additional comments: not responsive to verbal or tactile stimuli Assessment and Plan - Assessment and Plan (Free Text) Assessment: 67yo M, obtunded secondary to CVA vs. seizures. Surgery consulted for Gastrostomy tube placement Plan: - OR cancelled today as patient is not medically optimized - correct hypernatremia. - 16F NGT placed at bedside for enteral access. No continuous suction to the NGT. - will follow patients clinical status and reschedule for OR when optimized Further recs as per Dr. Pasquale Arango PGY1 surgery pager: [phone]
--- NOTE | 2018-02-08 12:26 | MRI ---
PROCEDURE: MRI BRAIN WITHOUT CONTRAST HISTORY: change of mental status COMPARISON: Unenhanced brain MRI 01/31/2018. TECHNIQUE: Multiplanar, multisequence MR images of the brain were obtained without intravenous contrast enhancement. FINDINGS: HEMORRHAGE: None DWI: No evidence of an acute or early subacute infarction. BRAIN PARENCHYMA: A small chronic lobar infarction is reiterated at the right occipital lobe as well as multiple chronic lacunar infarcts at the bilateral basal ganglia, left thalamus and likely also the right thalamus minimally. Age related neuro degenerative changes are reiterated and dilated perivascular spaces are scattered at the bilateral basal ganglia once again. VENTRICLES: Unremarkable. No hydrocephalus. CRANIUM: Unremarkable. ORBITS: Grossly unremarkable. PARANASAL SINUSES/MASTOIDS: Clear VASCULAR SYSTEM: Skull base flow voids intact. OTHER FINDINGS: None. IMPRESSION: Stable unenhanced brain MRI without definite interval acute intracranial findings. Age-related neuro degenerative change are identified as well as small chronic lobar infarction right occipital lobe and multiple chronic lacune cysts as discussed above.
--- NOTE | 2018-02-08 13:02 | RAD ---
HISTORY: ngt placement COMPARISON: 02/08/2018 at 11:56 a.m. FINDINGS: LUNGS: Linear scar/ atelectasis mid right lung versus fluid/ pleural thickening minor fissure. PLEURA: No pleural effusion. Mild elevation right hemidiaphragm. No pneumothorax. CARDIOVASCULAR: CABG. Normal heart size. NG tube extends to central abdomen. OSSEOUS STRUCTURES: No significant abnormalities. VISUALIZED UPPER ABDOMEN: Normal. OTHER FINDINGS: None. IMPRESSION: NG tube extends to central abdomen. No acute infiltrate.
--- NOTE | 2018-02-08 13:02 | RAD ---
HISTORY: NGT placement COMPARISON: 02/06/2018 FINDINGS: LUNGS: No infiltrate. Thickening/fluid in minor fissure. PLEURA: No pleural effusion appreciated. No pneumothorax. CARDIOVASCULAR: NG tube extends to central upper abdomen. Status post CABG. OSSEOUS STRUCTURES: No significant abnormalities. VISUALIZED UPPER ABDOMEN: Normal. OTHER FINDINGS: None. IMPRESSION: NG tube extends to central upper abdomen.
--- NOTE | 2018-02-08 13:23 | CP.PCM.CON ---
History of Present Illness - History of Present Illness History of Present Illness: Palliative consult requested by Brayden CALDERÓN for goals of care discussion patient is a 67 yo male, admitted from home on 01/16/18,after found by his daughter to be nonverbal and " stiff". Per daughter, just one hour before it, patient was at his base line; walking, talking and without complaints. Patient transfered to ED where he sustained seizures and acute respiratory distress, requireing intubation. During this hospital stay, patient was successfully extubated and transferred to the floor. Multiple diagnostic studies were performed including CT head, brain MRI, EEGs, Doppler studies.. patient diagnosed with metabolic encephalopathy. BCs were positive and treated with IV Zyvox and IV Rocephin. patient remains unresponsive to stimli. PEG was suggested and family agreed to it. Family seems to have difficult time accepting patient's current position and Palliative care was consulted to help them through this process. PMH: DM, HTN, Multiple CVAs,CABG Soc. Hx: single, lives alone, has two daughters involved in care Fam. Hx: per daughter, parents natural Review of Systems - Review of Systems All systems: reviewed and no additional remarkable complaints except Review of Systems: ROS unobtainable from the patient. Per nursing, patient remains unresponsive and with NGT feedings. Past Patient History - Past Medical History & Family History Past Medical History?: Yes - Past Social History Smoking Status: Never Smoked - CARDIAC Hx Hypertension: Yes - PULMONARY Hx Respiratory Disorders: Yes Other/Comment: s o b on exertion - NEUROLOGICAL HX Cerebrovascular Accident: Yes - HEENT Hx HEENT Problems: Yes Hx Cataracts: Yes (bilateral cat ext with iol) - RENAL Hx Chronic Kidney Disease: No - ENDOCRINE/METABOLIC Hx Diabetes Mellitus Type 2: Yes - HEMATOLOGICAL/ONCOLOGICAL Hx Blood Disorders: No - INTEGUMENTARY Hx Dermatological Problems: Yes Other/Comment: small ulcers both great toes - MUSCULOSKELETAL/RHEUMATOLOGICAL Hx Musculoskeletal Disorders: No Hx Falls: Yes - GASTROINTESTINAL Hx Gastrointestinal Disorders: No - GENITOURINARY/GYNECOLOGICAL Hx Genitourinary Disorders: No - PSYCHIATRIC Hx Substance Use: No - SURGICAL HISTORY Hx Coronary Artery Bypass Graft: Yes (8 yrs ago) - ANESTHESIA Hx Anesthesia: Yes Hx Anesthesia Reactions: No Hx Malignant Hyperthermia: No Meds Allergies/Adverse Reactions: Allergies Allergy/AdvReac Type Severity Reaction Status Date / Time No Known Allergies Allergy Verified 01/08/18 19:23 - Medications Medications: Current Medications Acetaminophen (Tylenol 650mg/20.3ml Solution Ud) 650 mg NG Q6 PRN PRN Reason: GIVE FOR TEMP. 100*F OR ABOVE Last Admin: 02/05/18 20:48 Dose: 650 mg Albuterol/Ipratropium (Duoneb 3 Mg/0.5 Mg (3 Ml) Ud) 3 ml INH RQ6 [facility] Last Admin: 02/08/18 07:32 Dose: 3 ml Aspirin (Aspirin Chewable) 81 mg PO DAILY [facility] Last Admin: 02/08/18 10:37 Dose: Not Given Carvedilol (Coreg) 12.5 mg PO BID [facility] Last Admin: 02/08/18 10:38 Dose: Not Given Heparin Sodium (Porcine) (Heparin) 5,000 units SC Q8 [facility] Last Admin: 02/07/18 14:13 Dose: 5,000 units Hydralazine HCl (Apresoline) 100 mg PO Q8 [facility] Last Admin: 02/08/18 06:47 Dose: Not Given Linezolid (Zyvox 600mg/300ml D5w) 600 mg in 300 mls @ 200 mls/hr IVPB Q12 [facility] PRN Reason: Protocol Last Admin: 02/08/18 11:02 Dose: 200 mls/hr Ceftriaxone Sodium 2 gm/ (Sodium Chloride) 100 mls @ 100 mls/hr IVPB Q12H [facility] PRN Reason: Protocol Last Admin: 02/08/18 03:45 Dose: 100 mls/hr Levetiracetam 500 mg/ Sodium (Chloride) 105 mls @ 420 mls/hr IVPB Q12H [facility] Last Admin: 02/08/18 11:02 Dose: 420 mls/hr Dextrose (Dextrose 5% In Water 1000 Ml) 1,000 mls @ 125 mls/hr IV .Q8H [facility] Last Admin: 02/08/18 11:15 Dose: 125 mls/hr Insulin Glargine (Lantus) 20 unit SC BID [facility] Last Admin: 02/08/18 11:05 Dose: Not Given Insulin Human Regular (Novolin R) 0 unit SC Q6 [facility] PRN Reason: Protocol Last Admin: 02/08/18 12:11 Dose: 10 unit Pantoprazole Sodium (Protonix Susp) 40 mg PO 1000 [facility] Last Admin: 02/08/18 10:38 Dose: Not Given Tamsulosin HCl (Flomax) 0.4 mg PO DAILY [facility] Last Admin: 02/08/18 10:38 Dose: Not Given Physical Exam - Constitutional Appears: In Acute Distress - Head Exam Head Exam: ATRAUMATIC, NORMAL INSPECTION, NORMOCEPHALIC - Eye Exam Additional comments: Only corneal reflex present - ENT Exam ENT Exam: Mucous Membranes Dry Additional comments: NGT - Neck Exam Neck exam: Positive for: Normal Inspection - Respiratory Exam Respiratory Exam: Decreased Breath Sounds - Cardiovascular Exam Cardiovascular Exam: Tachycardia - GI/Abdominal Exam GI & Abdominal Exam: Distended, Hypoactive Bowel Sounds - Rectal Exam Rectal Exam: Deferred - Exam Exam: NORMAL INSPECTION - Extremities Exam Extremities exam: Positive for: normal inspection - Back Exam Back exam: NORMAL INSPECTION - Neurological Exam Neurological exam: Altered - Psychiatric Exam Psychiatric exam: Flat Affect - Skin Skin Exam: Normal Color Results - Vital Signs Recent Vital Signs: Last Vital Signs Temp 98.3 F 02/08/18 06:58 Pulse 101 H 02/08/18 10:12 Resp 20 02/08/18 06:58 BP 126/79 02/08/18 10:12 Pulse Ox 98 02/08/18 10:12 - Labs Result Diagrams: 02/08/18 07:07 02/08/18 07:07 Labs: Laboratory Results - last 24 hr 02/05/18 02/07/18 02/07/18 13:54 17:21 20:58 WBC RBC Hgb Hct MCV MCH MCHC RDW Plt Count MPV Neut % (Auto) Lymph % (Auto) [place] % (Auto) Eos % (Auto) Baso % (Auto) Neut # (Auto) Lymph # (Auto) [place] # (Auto) Eos # (Auto) Baso # (Auto) Differential Comment Sodium Potassium Chloride Carbon Dioxide Anion Gap BUN Creatinine Est GFR ( Amer) Est GFR (Non-Af Amer) POC Glucose (mg/dL) 345 H Random Glucose Calcium Magnesium Levetiracetam 37.5 Blood Type O POSITIVE Antibody Screen Negative 02/08/18 02/08/18 02/08/18 00:02 06:04 07:07 WBC 6.3 RBC 4.35 L Hgb 13.5 Hct 41.7 MCV 95.7 H MCH 31.1 H MCHC 32.5 L RDW 13.1 Plt Count 122 L MPV 11.5 Neut % (Auto) 65.9 Lymph % (Auto) 25.4 [place] % (Auto) 7.6 Eos % (Auto) 0.4 Baso % (Auto) 0.7 Neut # (Auto) 4.2 Lymph # (Auto) 1.6 [place] # (Auto) 0.5 Eos # (Auto) 0.0 Baso # (Auto) 0.0 Differential Comment Sodium Potassium Chloride Carbon Dioxide Anion Gap BUN Creatinine Est GFR ( Amer) Est GFR (Non-Af Amer) POC Glucose (mg/dL) 330 H 326 H Random Glucose Calcium Magnesium Levetiracetam Blood Type Antibody Screen 02/08/18 02/08/18 07:07 11:00 WBC RBC Hgb Hct MCV MCH MCHC RDW Plt Count MPV Neut % (Auto) Lymph % (Auto) [place] % (Auto) Eos % (Auto) Baso % (Auto) Neut # (Auto) Lymph # (Auto) [place] # (Auto) Eos # (Auto) Baso # (Auto) Differential Comment Sodium 159 H Potassium 4.1 Chloride 116 H Carbon Dioxide 31 H Anion Gap 16 BUN 43 H Creatinine 1.5 Est GFR ( Amer) 56 Est GFR (Non-Af Amer) 47 POC Glucose (mg/dL) 364 H Random Glucose 349 H Calcium 8.5 L Magnesium 2.5 H Levetiracetam Blood Type Antibody Screen Assessment & Plan - Assessment and Plan (Free Text) Assessment: palliative consult Code status Full Code, there is no Advance directive on chart I reviewed medical records, all diagnostic studies, examined patient in the bed. Patient is unresponsive to stimuli, eyes closed, pupils not reactive, + corneal reflex. No voluntarly movement of upper and lower extremities on my visit. Diminished breath sounds, no cough. NGT in place for feedings. PEG insertion planned. Abdomen large, distended, hypoactive bowel sounds. There is disco; oration to LEs. BP 126/79, HR 100. o2 on, o2Sat 98 %. Afebrile. Patient is post repeat MRI brain, results pending. Kepra 500 mg Iv on board. No new seizure activities noted. I met with patient's daughter Veronica for goals of care discussion. Patient's condition reviewed. Daughter has difficult time nderstanding and accepting patient's current status. I offered more information about usual causes of Metabolic Encephalopathy and steps to recovery. I suggested that recovery proces may last and discharge to [facility] will be needed. Despite detailed discussion, the daughter remained with very poor input into patient's condition. She insisted , she has been asking for transffer out " for 2nd opinion." After long discussion, we agreed to meet again at 3;30 Pm, when her other sister and brother in law would be present. This was discussed with Doctor Rose who stated being aware of family;s difficulties, and agreed that the [facility] placement was appropriate planning. Impression * Acute status with metabolic encephalopathy * AMS * Dysphagia * Immobility * Family anticipatory anxiety and grieving Suggestion * Alireza dean, monitor for new seizure activities * Promote safety * Agree with PEG * Promote skin integrity * pastoral care for spiritual support * [facility] placement post PEG I will update you after the next family meeting which is later today. Advance planing time 30 min
--- NOTE | 2018-02-08 13:34 | PN ---
DATE: LOCATION: [facility], bed B. SUBJECTIVE: This is a 67 years old male post upper endoscopy with a trial of PEG insertion, I was unable to, due to lack of visualization of the line through the anterior abdominal wall, family was informed, seen by the surgical team for potential gastrostomy tube in the OR. No reported active bleeding. No nausea or vomiting. No reported chest pain. The patient is not responding to any verbal stimuli. Most recent lab results showed normal hemoglobin and hematocrit with normal white blood cells, but thrombocytopenia of 122, sodium 159, for which the gastrostomy tube in the OR scheduling was canceled. BUN 43, creatinine normal at 1.5, blood glucose level 326, calcium 8.5, magnesium 2.5. The patient still has low albumin. PHYSICAL EXAMINATION: GENERAL: A 67 years old male, not responding adequately to any verbal stimuli. VITAL SIGNS: Afebrile, with pulse of 96, respiratory rate of 20 to 22, blood pressure of 122/76. HEENT: Showed pale, dry mucous membrane with fixed pupil. LYMPH NODES: No lymphadenitis or lymphadenopathy. LUNGS: Scattered mild crepitation, decreased air entry at bases. HEART: Positive S1 and S2. ABDOMEN: Mildly obese, mildly distended, bowel sounds are hypoactive. No masses or organomegaly. No rebound tenderness or guarding. EXTREMITIES: With lower extremity edematous changes. No clubbing or cyanosis. NEUROLOGIC: No reported new neurological deficits, sensory or motor. IMPRESSION: 1. Seizure disorder. 2. Dysphagia with failure to thrive. 3. Hypoalbuminemia with malnutrition. 4. Known history of hyperlipidemia, coronary artery disease with status post coronary artery bypass graft as well as hypertension. 5. Electrolyte imbalance with hypernatremia. 6. Peptic ulcer disease by recent upper endoscopy. SUGGESTIONS: 1. Continue current management. 2. Nephrology followup. 3. NG tube for feeding and treatment purposes for now. 4. Further recommendation to follow and to start with Clinimix. Thank you for letting me participate in your patient's case management. Jaya Glass MD
--- NOTE | 2018-02-08 14:19 | PN ---
DATE: 02/08/2018. SUBJECTIVE: The patient is seen in the safety observation room, still confused, nonverbal, but moving extremities. Review of his labs showed the patient's sodium has been persistently high. Differential diagnosis to consider which can cause delirium is possible central diabetes insipidus. The patient has been followed by Dr. Ruiz undergoing workup for diabetes insipidus. The patient is off any psych meds. The patient is in Keppra; however, Keppra causes hyponatremia instead of hypernatremia. His blood sugars are persistently high above 300, calcium is low at 8.5. VITAL SIGNS: Temperature is 98.3, pulse 101, blood pressure 126/79, respirations 20, oxygen saturation is 98% nasal cannula. REVIEW OF SYSTEMS: GENERAL: The patient is still confused, nonverbal, seen in his room, moving extremities. The patient is off NG tube today has IV fluids, but did not converse. He is not in acute respiratory distress, moving extremities. Not agitated. Off his psych meds. The patient's behavior is manageable at this time, but review of system cannot be fully assessed due to his state of confusion. MENTAL STATUS EXAMINATION: Elderly male who looks stated ago, still confused. Nonverbal. Mumbles a few words. Unable to follow commands. Affect restricted. Mood is dysphoric. Thought process confused. Thought content, no overt psychosis. No suicidal or homicidal ideation. Attention and memory is still limited. Insight and judgment is limited. Impulse control is guarded at this time. IMPRESSION: Delirium, multifactorial, history of cerebrovascular accident. seizure, to consider central diabetes insipidus. PLAN AND RECOMMENDATION: The patient is seen. Meds reviewed. The patient followed by Dr. Ruiz. The patient will monitor his sodium level, hyponatremia can cause confusion and also can worsen delirium. We will keep Keppra at current dose 500 mg q 12h and keep him off sedatives. Continue treatment plan as outlined. Carl Hill MD [facility]
[2018-02-08 14:40] LABS: ALBUMIN 3.2 g/dL (3.5-5.0); CALCIUM 8.7 mg/dl (8.6-10.4)
[2018-02-08 16:33] LABS: SQUAMOUS EPITHIAL 1 /hpf (0-5); URINE BILIRUBIN NEGATIVE (NEGATIVE); URINE BLOOD NEGATIVE (NEGATIVE); URINE CLARITY Hazy (Clear); URINE COLOR Yellow (YELLOW); URINE GLUCOSE (UA) 3+ mg/dL (Normal); URINE LEUKOCYTE ESTERASE NEG Leu/uL (Negative); URINE PROTEIN 2+ mg/dL (NEGATIVE); URINE UROBILINOGEN NORMAL mg/dL (0.2-1.0)
[2018-02-08 16:35] LABS: GRANULAR CAST 0-2 /lpf (0-1)
--- NOTE | 2018-02-08 16:42 | RAD ---
HISTORY: GT placement confirmation COMPARISON: Comparison made with chest radiograph 02/08/2018 at 1248 hours FINDINGS: In situ NGT, the tip of which lies at at the level of the EG junction and should be advanced. LUNGS: Elevation right hemidiaphragm with curvilinear atelectasis - scarring changes and or small amount the minor fissure of fluid within and/or on scarring changes in the right mid lung field. Suspect minor left basilar atelectasis. PLEURA: No significant pleural effusion identified, no pneumothorax apparent. CARDIOVASCULAR: Sternotomy wires again noted. Heart size appears enlarged. OSSEOUS STRUCTURES: No significant abnormalities. VISUALIZED UPPER ABDOMEN: Normal. OTHER FINDINGS: None. IMPRESSION: In situ NGT the tip of which lies at the level of the EG junction and should be advanced. Note that these findings were discussed with 3 tower Nurse Ronit at approximately 4:40 p.m. with written down and read back verification. No other significant changes.
--- NOTE | 2018-02-08 16:56 | CP.PCM.PN ---
Subjective - Date & Time of Evaluation Date of Evaluation: 02/08/18 Time of Evaluation: 16:55 - Subjective Subjective: pt is seen and examined, follow up consult is dictated #[id number] Objective - Vital Signs/Intake and Output Vital Signs (last 24 hours): Temp Pulse Resp BP Pulse Ox 100.5 F H 102 H 20 146/75 97 02/08/18 16:00 02/08/18 16:00 02/08/18 16:00 02/08/18 16:00 02/08/18 16:00 Intake and Output: 02/08/18 02/08/18 06:59 18:59 Intake Total 890 775 Balance 890 775 - Medications Medications: Current Medications Acetaminophen (Tylenol 650mg/20.3ml Solution Ud) 650 mg NG Q6 PRN PRN Reason: GIVE FOR TEMP. 100*F OR ABOVE Last Admin: 02/05/18 20:48 Dose: 650 mg Albuterol/Ipratropium (Duoneb 3 Mg/0.5 Mg (3 Ml) Ud) 3 ml INH RQ6 [facility] Last Admin: 02/08/18 13:51 Dose: Not Given Aspirin (Aspirin Chewable) 81 mg PO DAILY [facility] Last Admin: 02/08/18 10:37 Dose: Not Given Carvedilol (Coreg) 12.5 mg PO BID [facility] Last Admin: 02/08/18 10:38 Dose: Not Given Heparin Sodium (Porcine) (Heparin) 5,000 units SC Q8 [facility] Last Admin: 02/07/18 14:13 Dose: 5,000 units Hydralazine HCl (Apresoline) 100 mg PO Q8 [facility] Last Admin: 02/08/18 15:14 Dose: Not Given Linezolid (Zyvox 600mg/300ml D5w) 600 mg in 300 mls @ 200 mls/hr IVPB Q12 [facility] PRN Reason: Protocol Last Admin: 02/08/18 11:02 Dose: 200 mls/hr Ceftriaxone Sodium 2 gm/ (Sodium Chloride) 100 mls @ 100 mls/hr IVPB Q12H [facility] PRN Reason: Protocol Last Admin: 02/08/18 16:43 Dose: 100 mls/hr Dextrose (Dextrose 5% In Water 1000 Ml) 1,000 mls @ 125 mls/hr IV .Q8H [facility] Last Admin: 02/08/18 11:15 Dose: 125 mls/hr Levetiracetam 500 mg/ Dextrose 55 mls @ 420 mls/hr IVPB Q12H [facility] Insulin Glargine (Lantus) 20 unit SC BID [facility] Last Admin: 02/08/18 11:05 Dose: Not Given Insulin Human Regular (Novolin R) 0 unit SC Q6 [facility] PRN Reason: Protocol Last Admin: 02/08/18 12:11 Dose: 10 unit Pantoprazole Sodium (Protonix Susp) 40 mg PO 1000 [facility] Last Admin: 02/08/18 10:38 Dose: Not Given Tamsulosin HCl (Flomax) 0.4 mg PO DAILY [facility] Last Admin: 02/08/18 10:38 Dose: Not Given - Labs Labs: 02/08/18 07:07 02/08/18 13:53 PT 12.4 SECONDS (9.7-12.2) H 02/02/18 06:19 INR 1.1 02/02/18 06:19 APTT 29 SECONDS (21-34) 02/02/18 06:19
--- NOTE | 2018-02-08 18:23 | CP.PCM.PN ---
Subjective - Date & Time of Evaluation Date of Evaluation: 02/08/18 Time of Evaluation: 08:00 - Subjective Subjective: comatose unresponsive no fever family at bedside LP not done yet will add back acyclovir await MRI Objective - Vital Signs/Intake and Output Vital Signs (last 24 hours): Temp Pulse Resp BP Pulse Ox 100.5 F H 102 H 20 146/75 97 02/08/18 16:00 02/08/18 16:00 02/08/18 16:00 02/08/18 16:00 02/08/18 16:00 Intake and Output: 02/08/18 02/08/18 06:59 18:59 Intake Total 890 775 Balance 890 775 - Medications Medications: Current Medications Acetaminophen (Tylenol 650mg/20.3ml Solution Ud) 650 mg NG Q6 PRN PRN Reason: GIVE FOR TEMP. 100*F OR ABOVE Last Admin: 02/05/18 20:48 Dose: 650 mg Albuterol/Ipratropium (Duoneb 3 Mg/0.5 Mg (3 Ml) Ud) 3 ml INH RQ6 [facility] Last Admin: 02/08/18 13:51 Dose: Not Given Aspirin (Aspirin Chewable) 81 mg PO DAILY [facility] Last Admin: 02/08/18 10:37 Dose: Not Given Carvedilol (Coreg) 12.5 mg PO BID [facility] Last Admin: 02/08/18 10:38 Dose: Not Given Heparin Sodium (Porcine) (Heparin) 5,000 units SC Q8 [facility] Last Admin: 02/07/18 14:13 Dose: 5,000 units Hydralazine HCl (Apresoline) 100 mg PO Q8 [facility] Last Admin: 02/08/18 15:14 Dose: Not Given Linezolid (Zyvox 600mg/300ml D5w) 600 mg in 300 mls @ 200 mls/hr IVPB Q12 [facility] PRN Reason: Protocol Last Admin: 02/08/18 11:02 Dose: 200 mls/hr Ceftriaxone Sodium 2 gm/ (Sodium Chloride) 100 mls @ 100 mls/hr IVPB Q12H [facility] PRN Reason: Protocol Last Admin: 02/08/18 16:43 Dose: 100 mls/hr Dextrose (Dextrose 5% In Water 1000 Ml) 1,000 mls @ 125 mls/hr IV .Q8H [facility] Last Admin: 02/08/18 11:15 Dose: 125 mls/hr Levetiracetam 500 mg/ Dextrose 55 mls @ 420 mls/hr IVPB Q12H [facility] Insulin Glargine (Lantus) 20 unit SC BID [facility] Last Admin: 02/08/18 11:05 Dose: Not Given Insulin Human Regular (Novolin R) 0 unit SC Q6 [facility] PRN Reason: Protocol Last Admin: 02/08/18 12:11 Dose: 10 unit Pantoprazole Sodium (Protonix Susp) 40 mg PO 1000 [facility] Last Admin: 02/08/18 10:38 Dose: Not Given Tamsulosin HCl (Flomax) 0.4 mg PO DAILY [facility] Last Admin: 02/08/18 10:38 Dose: Not Given - Labs Labs: 02/08/18 07:07 02/08/18 17:39 PT 12.4 SECONDS (9.7-12.2) H 02/02/18 06:19 INR 1.1 02/02/18 06:19 APTT 29 SECONDS (21-34) 02/02/18 06:19 - Head Exam Head Exam: NORMOCEPHALIC - Eye Exam Eye Exam: absent: Scleral icterus - ENT Exam ENT Exam: Mucous Membranes Dry - Neck Exam Neck Exam: absent: Lymphadenopathy - Respiratory Exam Respiratory Exam: Decreased Breath Sounds - Cardiovascular Exam Cardiovascular Exam: REGULAR RHYTHM - GI/Abdominal Exam GI & Abdominal Exam: Distended - Rectal Exam Rectal Exam: Deferred - Neurological Exam Neurological Exam: Altered Assessment and Plan (1) Sepsis Status: Acute (2) Sepsis Status: Acute (3) COPD (chronic obstructive pulmonary disease) Status: Acute (4) Congestive heart failure Status: Acute (5) Diabetes Status: Acute (6) Encephalopathy Status: Acute
[2018-02-08] MEDS ORDERED: Midazolam 2 MG/2 ML VIAL ONE (19:18)
--- NOTE | 2018-02-08 19:20 | PCM.RRT ---
<Nancy Galo - Last Filed: 02/08/18 19:23> SLUBBER MACHINE OPERATOR Nurses Assessment - Situation Date: 02/08/18 New IV Insertion Tolerance: Good - Ventilator Settings SAO2 %: 100 - Constitutional Appears: In Acute Distress - Head Head Exam: ATRAUMATIC - Respiratory Exam Respiratory Exam: Rales, Rhonchi, Respiratory Distress. absent: Clear to Ausculation Bilateral, NORMAL BREATHING PATTERN - Cardiovascular Exam Cardiovascular Exam: +S1, +S2 - Neurological Exam Neurological Exam: Altered. absent: Alert, Awake Plan - Assessment of Findings&Treatment Plan SLUBBER MACHINE OPERATOR was called for low oxygen saturation. Vitals were taken: BP 110/74, HR 106, Temp 100.6F, O2 82%. Patient was on 2-3L of oxygen via nasal cannula. Nonrebreather was placed at 10L. Patient O2 saturation still low at 84%. Anesthesia was called to intubate patient. Etomidate 14mg and versed 2mg IV was given. Patient was intubated. Blood cultures, urine cultures, procalcitonin, cbc , cmp, mag/phos, and ABG shock panel were ordered. Stat CXR was order to determine position of ETtube. Chest xray ordered for Monday morning. Stanley placed. CTA PE protocol ordered to r/o PE. VQ scan ordered for the morning in case CTA could not be completed due to elevated creatinine (1.7) and GFR 40. Route Sales Trainee (Dr. Berkowitz) contacted and aware. Patient taken for CTA and will be transferred to the ICU.` ` <Edd Murry - Last Filed: 02/09/18 07:38> SLUBBER MACHINE OPERATOR Nurses Assessment - Vital Signs at end of SLUBBER MACHINE OPERATOR Vital Signs at end of SLUBBER MACHINE OPERATOR: Rapid Response End Vital Sign Blood Pressure 85/55 Pulse Rate 101 Respiratory Rate 16 Temperature 100.4 F O2 Sat by Pulse Oximetry 98 Attending/Attestation - Attestation I have personally seen and examined this patient.: Yes I have fully participated in the care of the patient.: Yes I have reviewed all pertinent clinical information, including history, physical exam and plan: Yes Notes (Text): Medical hospitalist: Patient had an SLUBBER MACHINE OPERATOR due to hypoxia. The patient has been non verbal and minimal responsive. The patient was in the ICU for an extended period of time due to stroke and seizure. Per the staff present he was never verbal - however he does have moments where he is able to move hands and some minimal response. The patient had persistent low SpO2 even after a nonrebreather was placed on. With Bipap it came up to the low 90s but he was still visibly in distress. A chest XRAY from the morning shows there's changes particularly in the R lung field. He was getting NGT feeds so it is possible there is aspiration pneumonia , or something such as a PE since he has been imobile for such a long period of time. The family was at bedside. I explained to them that the patient's respiratory status was declining and I explained to them that there were many ongoing medical problems and that the overall prognosis was not good even if we do intubate and send him back to the ICU. It was a very trying and emotional conversation for the family. We had someone come and translate for us. After discussing the family wanted him to remain FULL CODE and he was intubated. We went to the CT scan to assess for PE and then to ICU afterwards. I spoke with ICU attending at night and also I asked that the staff notify the patient's attending. thank you Edd Murry
[2018-02-08] MEDS ORDERED: Iodixanol 320 MG/ML 100 ML BOTTLE IV ONE (19:32)
[2018-02-08] MEDS ORDERED: Etomidate 20 mg/10ml Inj IV ONE (19:45)
[2018-02-08] MEDS ORDERED: Midazolam 2 MG/2 ML VIAL IVP ONE (19:45)
--- NOTE | 2018-02-08 20:19 | PCM.ANES ---
Anesthesia Emergent Intubation - Diagnosis Working Diagnosis:: Acute Respiratory Distress - Pre-Intubation Vital Signs Oxygen Delivery Method: Ambu-Bag Level Of Consciousness: Lethargic Intubation Meds Given: Etomidate, Versed - Airway Management Oropharyngeal Area Suctioned: Yes Rapid Sequence: No Cricoid Pressure: No Possible Aspiration: No - Method of Intubation Intubation Method: Oral ETT ETT Size: 8.0 Easy: Yes Atramatic: Yes - Intubation Devices Israel Blade Size Used: 4 - Placement Confirmation Breath Sounds Present & Equal Bilaterally: Yes Gurgling Sounds Not Audible at Epigastrum: Yes Positive EtCO2: Yes Portable CXR: Yes Recommendations: Ventilator
[2018-02-08] MEDS: Cefepime IV 2 gm in Dextrose 2 GM/100 ML BAG IVPB SCH (20:30)
[2018-02-08 20:35] LABS: ABG ALLEN TEST POS; ARTERIAL BLOOD GAS HCO3 30.6 mmol/L (21-28); ARTERIAL BLOOD GAS O2 SAT 99.2 % (95-98); ARTERIAL BLOOD GAS PCO2 41 mm/Hg (35-45); ARTERIAL BLOOD GAS PH 7.49 (7.35-7.45); ARTERIAL BLOOD GAS PO2 282 mm/Hg (80-100); ARTERIAL BLOOD GAS TCO2 32.5 mmol/L (22-28)
[2018-02-08 20:53] LABS: BASO % 0.5 % (0.0-2.0); EOS % 0.4 % (0.0-4.0); HEMOGLOBIN 11.9 g/dL (12.0-18.0); LYMPH # 1.5 K/uL (1.0-4.3); LYMPH % 24.5 % (20.0-40.0); MEAN CELL VOLUME 95.8 fL (80.0-94.0); MEAN CORPUSCULAR HEMOGLOBIN 31.4 pg (27.0-31.0); MEAN CORPUSCULAR HGB CONC 32.8 g/dL (33.0-37.0); MEAN PLATELET VOLUME 11.7 fL (7.2-11.7); MONO # 0.4 K/uL (0.0-0.8); NEUT # 4.2 K/uL (1.8-7.0); NEUT % 67.6 % (50.0-75.0); NRBC % 0.1 % (0.0-2.0); RBC 3.78 Mil/uL (4.40-5.90); RED CELL DISTRIBUTION WIDTH 13.2 % (11.5-14.5); WHITE BLOOD COUNT 6.2 K/uL (4.8-10.8)
[2018-02-08] MEDS ORDERED: Heparin25000 units/250ml 1/2NS 25,000 UNITS/250 ML BAG IV PRN (20:54)
[2018-02-08 21:07] LABS: ALB/GLOB RATIO 0.9 (1.0-2.1); ALBUMIN 2.7 g/dL (3.5-5.0); CALCIUM 8.4 mg/dl (8.6-10.4)
--- NOTE | 2018-02-08 21:32 | CT ---
EXAM: CT Angiography Chest With Intravenous Contrast EXAM DATE/TIME: 02/08/2018 7:25 PM CLINICAL HISTORY: 67 years old, male; Signs and symptoms; Dyspnea and shortness of breath; Additional info: SOB, R/O pe TECHNIQUE: Axial computed tomographic angiography images of the chest with intravenous contrast using pulmonary embolism protocol. All CT scans at this facility use one or more dose reduction techniques, viz.: automated exposure control; ma/kV adjustment per patient size (including targeted exams where dose is matched to indication; i.e. head); or iterative reconstruction technique. MIP reconstructed images were created and reviewed. Coronal and sagittal reformatted images were created and reviewed. CONTRAST: 100 mL of VISIPAQUE 320 administered intravenously. COMPARISON: CT - ANGIOGRAPHY ABD ILEOFEM RUNOFF 2018-01-09 19:53 FINDINGS: Tubes, lines and devices: An endotracheal tube is in place. Tip of the tube is at the level of the aortic arch. A nasogastric tube is in place. Heart, aorta and Pulmonary arteries: The heart appears mildly enlarged. There are coronary artery calcifications. Aorta is normal in caliber. There are calcifications in the aorta and great vessels. Main pulmonary artery is mildly dilated 3.4 cm in diameter. There is a saddle embolus. Embolus extends into both lower lobe pulmonary arteries. There is occlusion of multiple right and left lobe pulmonary artery branches. There are filling defects in right upper and left upper lobe arteries. Lungs and pleural spaces: Trachea distal to the endotracheal tube and main bronchi are patent. There is scarring at the lung apices. There is subsegmental atelectasis/scarring in the middle lobe and lingula. There is atelectasis/scarring at both lung bases. There is a small left pleural effusion. There is no definite right effusion. Mediastinum: There are postsurgical changes with clips in the mediastinum. There are no pathologically enlarged mediastinal or hilar nodes. Esophagus is collapsed around the nasogastric tube. Thyroid: Thyroid is not optimally demonstrated. Bones/joints: There are postsurgical changes of median sternotomy. There are degenerative changes in the spine. There are wedging deformities T6, T7 and T8. There is exaggeration of the thoracic kyphosis. Soft tissues: unremarkable Upper abdomen: There are no acute abnormalities in the visualized portion of the abdomen. There is continued mild pericholecystic edema, similar to that seen on the prior study 2/20/18. IMPRESSION: Saddle embolus extending into both right and left lower lobe pulmonary arteries with occlusive thrombi in lower lobe pulmonary branches bilaterally; bilateral upper lobe pulmonary emboli Additional nonemergent findings as described above.
--- NOTE | 2018-02-08 21:39 | CP.CCUPN ---
CCU Subjective - Physician Review Events Since Last Encounter (Free Text): 02/08/18 The Patient was seen and examined at the bedside, Medical records reviewed, and management issues were discussed and formulated with the house staff. [employer] CONSULTANT was called today for low oxygen saturation of 80s%, Patient with recent Admission to ICU for Acute respiratory failure sec to pneumonia and sepsis. Patient was intubated and extubated and transferred to medical call, he was slowly recovering. Patient was in respiratory distress, and with altered mental status, he was emergently intubated and subsequently transferred to the ICU. Patient Underwent Chest CTA which was positive for acute saddle pulmonary embolism Started oh Heparin drip CCU Objective - Vital Signs / Intake & Output Vital Signs (Last 4 hours): Vital Signs Temp Pulse Resp BP Pulse Ox 02/08/18 21:08 99 H 16 100 02/08/18 20:00 100.2 F H 100 H 16 114/74 100 Intake and Output (Last 8hrs): Intake & Output 02/08/18 02/08/18 02/08/18 06:59 14:59 22:59 Intake Total 320 775 Balance 320 775 Intake: Intake, IV Amount 320 775 Right Antecubital 320 Right Forearm 775 Oral 0 0 Tube Feeding 0 - Physical Exam Head: Positive for: Atraumatic, Normocephalic Pupils: Positive for: PERRL Conjunctiva: Positive for: Normal Mouth: Positive for: Moist Mucous Membranes Neck: Positive for: Normal Range of Motion Respiratory/Chest: Positive for: Clear to Auscultation, Tachypneic. Negative for: Respiratory Distress Cardiovascular: Positive for: Normal S1, S2, Irregular Rhythm. Negative for: Tachycardic Abdomen: Positive for: Normal Bowel Sounds, Other (Obese). Negative for: Tenderness, Distention, Peritoneal Signs, Feeding Tubes, Ostomy Tubes, Mass/ Organomegaly Upper Extremity: Positive for: Normal Inspection Lower Extremity: Positive for: Normal Inspection Neurological: Positive for: Other (Moves all extremities) Skin: Positive for: Warm, Dry Psychiatric: Positive for: Alert - Medications Active Medications: Active Medications Generic Name Dose Route Start Last Admin Trade Name Freq PRN Reason Stop Dose Admin Acetaminophen 650 mg 01/19/18 00:50 02/05/18 20:48 Tylenol 650mg/20.3ml Solution Ud NG 650 mg Q6 PRN Administration GIVE FOR TEMP. 100*F OR ABOVE Albuterol/Ipratropium 3 ml 01/26/18 20:00 02/08/18 13:51 Duoneb 3 Mg/0.5 Mg (3 Ml) Ud INH Not Given RQ6 [facility] Aspirin 81 mg 01/17/18 10:00 02/08/18 10:37 Aspirin Chewable PO Not Given DAILY [facility] Carvedilol 12.5 mg 01/22/18 09:07 02/08/18 18:00 Coreg PO Not Given BID [facility] Heparin Sodium (Porcine) 5,000 units 01/17/18 14:00 02/07/18 14:13 Heparin SC 5,000 units Q8 [facility] Administration Hydralazine HCl 100 mg 02/03/18 00:29 02/08/18 15:14 Apresoline PO Not Given Q8 [facility] Dextrose 1,000 mls @ 125 mls/hr 02/08/18 10:30 02/08/18 20:58 Dextrose 5% In Water 1000 Ml IV 125 mls/hr .Q8H [facility] Administration Levetiracetam 500 mg/ Dextrose 55 mls @ 420 mls/hr 02/08/18 22:00 IVPB Q12H [facility] Vancomycin HCl 1 gm/ Dextrose 250 mls @ 166.7 mls/hr 02/08/18 19:30 IVPB Q48H [facility] Protocol Cefepime HCl 2 gm in 100 mls @ 200 mls/hr 02/08/18 19:00 Maxipime Iv 2 Gm Premix IVPB 02/13/18 19:01 Q12H [facility] Protocol Acyclovir 750 mg/ Dextrose 250 mls @ 100 mls/hr 02/08/18 20:00 IV Q12H [facility] Protocol Heparin Sodium/Sodium Chloride 25,000 units in 250 mls @ 0 mls/hr 02/08/18 20: 54 Heparin 81269 Units/250ml 1/2 Normal Saline IV .Q0M PRN PROTOCOL Protocol Per Protocol Insulin Glargine 20 unit 02/06/18 10:00 02/08/18 18:00 Lantus SC Not Given BID [facility] Insulin Human Regular 0 unit 01/30/18 12:00 02/08/18 18:00 Novolin R SC Not Given Q6 [facility] Protocol Pantoprazole Sodium 40 mg 01/21/18 12:00 02/08/18 10:38 Protonix Susp PO Not Given 1000 [facility] Tamsulosin HCl 0.4 mg 01/30/18 20:00 02/08/18 10:38 Flomax PO Not Given DAILY [facility] - Patient Studies Lab Studies: Lab Studies 02/08/18 02/08/18 02/08/18 Range/Units 20:47 20:47 20:47 WBC 6.2 (4.8-10.8) K/uL RBC 3.78 L (4.40-5.90) Mil/uL Hgb 11.9 L (12.0-18.0) g/dL Hct 36.2 (35.0-51.0) % MCV 95.8 H (80.0-94.0) fL MCH 31.4 H (27.0-31.0) pg MCHC 32.8 L (33.0-37.0) g/dL RDW 13.2 (11.5-14.5) % Plt Count 98 L D (130-400) K/uL MPV 11.7 (7.2-11.7) fL Neut % (Auto) 67.6 (50.0-75.0) % Lymph % (Auto) 24.5 (20.0-40.0) % [place] % (Auto) 7.0 (0.0-10.0) % Eos % (Auto) 0.4 (0.0-4.0) % Baso % (Auto) 0.5 (0.0-2.0) % Neut # (Auto) 4.2 (1.8-7.0) K/uL Lymph # (Auto) 1.5 (1.0-4.3) K/uL [place] # (Auto) 0.4 (0.0-0.8) K/uL Eos # (Auto) 0.0 (0.0-0.7) K/uL Baso # (Auto) 0.0 (0.0-0.2) K/uL Differential Comment Puncture Site pCO2 (35-45) mm/Hg pO2 (80-100) mm/Hg HCO3 (21-28) mmol/L ABG pH (7.35-7.45) ABG Total CO2 (22-28) mmol/L ABG O2 Saturation (95-98) % ABG Base Excess (-2.0-3.0) mmol/L Jamey Test ABG Potassium (3.6-5.2) mmol/L A-a O2 Difference mm/Hg Respiratory Index Glucose (75-110) mg/dl Lactate (0.7-2.1) mmol/L Vent Mode Mechanical Rate FiO2 % Tidal Volume PEEP Sodium 156 H (132-148) mmol/L Potassium 3.9 (3.6-5.2) mmol/L Chloride 117 H (98-107) mmol/L Carbon Dioxide 29 (22-30) mmol/L Anion Gap 14 (10-20) BUN 47 H (9-20) mg/dL Creatinine 1.8 H (0.8-1.5) mg/dL Est GFR ( Amer) 46 Est GFR (Non-Af Amer) 38 POC Glucose (mg/dL) (65-110) mg/dL Random Glucose 331 H (75-110) mg/dL Serum Osmolality (272-300) mosm/kg Calcium 8.4 L (8.6-10.4) mg/dl Phosphorus 4.4 (2.5-4.5) mg/dL Magnesium 2.4 H (1.6-2.3) mg/dL Total Bilirubin 0.7 (0.2-1.3) mg/dL AST 22 (17-59) U/L ALT 30 (21-72) U/L Alkaline Phosphatase 61 (38-126) U/L Total Protein 5.6 L (6.3-8.3) g/dL Albumin 2.7 L (3.5-5.0) g/dL Globulin 2.9 (2.2-3.9) gm/dL Albumin/Globulin Ratio 0.9 L (1.0-2.1) Procalcitonin 0.08 L (0.19-0.49) NG/ML Arterial Blood Potassium (3.6-5.2) mmol/L Urine Color (YELLOW) Urine Clarity (Clear) Urine pH (5.0-8.0) Ur Specific [place] (1.003-1.030) Urine Protein (NEGATIVE) mg/dL Urine Glucose (UA) (Normal) mg/dL Urine Ketones (NEGATIVE) mg/dL Urine Blood (NEGATIVE) Urine Nitrate (NEGATIVE) Urine Bilirubin (NEGATIVE) Urine Urobilinogen (0.2-1.0) mg/dL Ur Leukocyte Esterase (Negative) Minh/uL Urine WBC (Auto) (0-5) /hpf Urine RBC (Auto) (0-3) /hpf Ur Squamous Epith Cells (0-5) /hpf Granular Casts (Auto) (0-1) /lpf Urine Yeast (Budding) (NEGATIVE) /hpf Urine Osmolality (300-1000) mosm/kg Ur Random Potassium mmol/L Levetiracetam mcg/mL Blood Type Antibody Screen 02/08/18 02/08/18 02/08/18 Range/Units 20:30 19:02 18:00 WBC (4.8-10.8) K/uL RBC (4.40-5.90) Mil/uL Hgb (12.0-18.0) g/dL Hct (35.0-51.0) % MCV (80.0-94.0) fL MCH (27.0-31.0) pg MCHC (33.0-37.0) g/dL RDW (11.5-14.5) % Plt Count (130-400) K/uL MPV (7.2-11.7) fL Neut % (Auto) (50.0-75.0) % Lymph % (Auto) (20.0-40.0) % [place] % (Auto) (0.0-10.0) % Eos % (Auto) (0.0-4.0) % Baso % (Auto) (0.0-2.0) % Neut # (Auto) (1.8-7.0) K/uL Lymph # (Auto) (1.0-4.3) K/uL [place] # (Auto) (0.0-0.8) K/uL Eos # (Auto) (0.0-0.7) K/uL Baso # (Auto) (0.0-0.2) K/uL Differential Comment Puncture Site Rba pCO2 41 (35-45) mm/Hg pO2 282 H (80-100) mm/Hg HCO3 30.6 H (21-28) mmol/L ABG pH 7.49 H (7.35-7.45) ABG Total CO2 32.5 H (22-28) mmol/L ABG O2 Saturation 99.2 H (95-98) % ABG Base Excess 7.2 H (-2.0-3.0) mmol/L Jamey Test Pos ABG Potassium 3.7 (3.6-5.2) mmol/L A-a O2 Difference 237.0 mm/Hg Respiratory Index 0.8 Glucose 344 H (75-110) mg/dl Lactate 1.6 (0.7-2.1) mmol/L Vent Mode Prvc Mechanical Rate 16 FiO2 80.0 % Tidal Volume 500 PEEP 5 Sodium 158.0 H (132-148) mmol/L Potassium (3.6-5.2) mmol/L Chloride 121.0 H (98-107) mmol/L Carbon Dioxide (22-30) mmol/L Anion Gap (10-20) BUN (9-20) mg/dL Creatinine (0.8-1.5) mg/dL Est GFR ( Amer) Est GFR (Non-Af Amer) POC Glucose (mg/dL) 350 H 345 H (65-110) mg/dL Random Glucose (75-110) mg/dL Serum Osmolality (272-300) mosm/kg Calcium (8.6-10.4) mg/dl Phosphorus (2.5-4.5) mg/dL Magnesium (1.6-2.3) mg/dL Total Bilirubin (0.2-1.3) mg/dL AST (17-59) U/L ALT (21-72) U/L Alkaline Phosphatase (38-126) U/L Total Protein (6.3-8.3) g/dL Albumin (3.5-5.0) g/dL Globulin (2.2-3.9) gm/dL Albumin/Globulin Ratio (1.0-2.1) Procalcitonin (0.19-0.49) NG/ML Arterial Blood Potassium 3.7 (3.6-5.2) mmol/L Urine Color (YELLOW) Urine Clarity (Clear) Urine pH (5.0-8.0) Ur Specific [place] (1.003-1.030) Urine Protein (NEGATIVE) mg/dL Urine Glucose (UA) (Normal) mg/dL Urine Ketones (NEGATIVE) mg/dL Urine Blood (NEGATIVE) Urine Nitrate (NEGATIVE) Urine Bilirubin (NEGATIVE) Urine Urobilinogen (0.2-1.0) mg/dL Ur Leukocyte Esterase (Negative) Minh/uL Urine WBC (Auto) (0-5) /hpf Urine RBC (Auto) (0-3) /hpf Ur Squamous Epith Cells (0-5) /hpf Granular Casts (Auto) (0-1) /lpf Urine Yeast (Budding) (NEGATIVE) /hpf Urine Osmolality (300-1000) mosm/kg Ur Random Potassium mmol/L Levetiracetam mcg/mL Blood Type Antibody Screen 02/08/18 02/08/18 02/08/18 Range/Units 17:39 17:39 17:25 WBC (4.8-10.8) K/uL RBC (4.40-5.90) Mil/uL Hgb (12.0-18.0) g/dL Hct (35.0-51.0) % MCV (80.0-94.0) fL MCH (27.0-31.0) pg MCHC (33.0-37.0) g/dL RDW (11.5-14.5) % Plt Count (130-400) K/uL MPV (7.2-11.7) fL Neut % (Auto) (50.0-75.0) % Lymph % (Auto) (20.0-40.0) % [place] % (Auto) (0.0-10.0) % Eos % (Auto) (0.0-4.0) % Baso % (Auto) (0.0-2.0) % Neut # (Auto) (1.8-7.0) K/uL Lymph # (Auto) (1.0-4.3) K/uL [place] # (Auto) (0.0-0.8) K/uL Eos # (Auto) (0.0-0.7) K/uL Baso # (Auto) (0.0-0.2) K/uL Differential Comment Puncture Site pCO2 (35-45) mm/Hg pO2 (80-100) mm/Hg HCO3 (21-28) mmol/L ABG pH (7.35-7.45) ABG Total CO2 (22-28) mmol/L ABG O2 Saturation (95-98) % ABG Base Excess (-2.0-3.0) mmol/L Jamey Test ABG Potassium (3.6-5.2) mmol/L A-a O2 Difference mm/Hg Respiratory Index Glucose (75-110) mg/dl Lactate (0.7-2.1) mmol/L Vent Mode Mechanical Rate FiO2 % Tidal Volume PEEP Sodium (132-148) mmol/L Potassium (3.6-5.2) mmol/L Chloride (98-107) mmol/L Carbon Dioxide (22-30) mmol/L Anion Gap (10-20) BUN (9-20) mg/dL Creatinine 1.7 H (0.8-1.5) mg/dL Est GFR ( Amer) 49 Est GFR (Non-Af Amer) 40 POC Glucose (mg/dL) (65-110) mg/dL Random Glucose (75-110) mg/dL Serum Osmolality 357 H (272-300) mosm/kg Calcium (8.6-10.4) mg/dl Phosphorus (2.5-4.5) mg/dL Magnesium (1.6-2.3) mg/dL Total Bilirubin (0.2-1.3) mg/dL AST (17-59) U/L ALT (21-72) U/L Alkaline Phosphatase (38-126) U/L Total Protein (6.3-8.3) g/dL Albumin (3.5-5.0) g/dL Globulin (2.2-3.9) gm/dL Albumin/Globulin Ratio (1.0-2.1) Procalcitonin (0.19-0.49) NG/ML Arterial Blood Potassium (3.6-5.2) mmol/L Urine Color (YELLOW) Urine Clarity (Clear) Urine pH (5.0-8.0) Ur Specific [place] (1.003-1.030) Urine Protein (NEGATIVE) mg/dL Urine Glucose (UA) (Normal) mg/dL Urine Ketones (NEGATIVE) mg/dL Urine Blood (NEGATIVE) Urine Nitrate (NEGATIVE) Urine Bilirubin (NEGATIVE) Urine Urobilinogen (0.2-1.0) mg/dL Ur Leukocyte Esterase (Negative) Minh/uL Urine WBC (Auto) (0-5) /hpf Urine RBC (Auto) (0-3) /hpf Ur Squamous Epith Cells (0-5) /hpf Granular Casts (Auto) (0-1) /lpf Urine Yeast (Budding) (NEGATIVE) /hpf Urine Osmolality (300-1000) mosm/kg Ur Random Potassium 63.3 mmol/L Levetiracetam mcg/mL Blood Type Antibody Screen 02/08/18 02/08/18 02/08/18 Range/Units 16:23 16:23 13:53 WBC (4.8-10.8) K/uL RBC (4.40-5.90) Mil/uL Hgb (12.0-18.0) g/dL Hct (35.0-51.0) % MCV (80.0-94.0) fL MCH (27.0-31.0) pg MCHC (33.0-37.0) g/dL RDW (11.5-14.5) % Plt Count (130-400) K/uL MPV (7.2-11.7) fL Neut % (Auto) (50.0-75.0) % Lymph % (Auto) (20.0-40.0) % [place] % (Auto) (0.0-10.0) % Eos % (Auto) (0.0-4.0) % Baso % (Auto) (0.0-2.0) % Neut # (Auto) (1.8-7.0) K/uL Lymph # (Auto) (1.0-4.3) K/uL [place] # (Auto) (0.0-0.8) K/uL Eos # (Auto) (0.0-0.7) K/uL Baso # (Auto) (0.0-0.2) K/uL Differential Comment Puncture Site pCO2 (35-45) mm/Hg pO2 (80-100) mm/Hg HCO3 (21-28) mmol/L ABG pH (7.35-7.45) ABG Total CO2 (22-28) mmol/L ABG O2 Saturation (95-98) % ABG Base Excess (-2.0-3.0) mmol/L Jamey Test ABG Potassium (3.6-5.2) mmol/L A-a O2 Difference mm/Hg Respiratory Index Glucose (75-110) mg/dl Lactate (0.7-2.1) mmol/L Vent Mode Mechanical Rate FiO2 % Tidal Volume PEEP Sodium 160 H* (132-148) mmol/L Potassium 4.1 (3.6-5.2) mmol/L Chloride 116 H (98-107) mmol/L Carbon Dioxide 32 H (22-30) mmol/L Anion Gap 16 (10-20) BUN 45 H (9-20) mg/dL Creatinine 1.6 H (0.8-1.5) mg/dL Est GFR ( Amer) 52 Est GFR (Non-Af Amer) 43 POC Glucose (mg/dL) (65-110) mg/dL Random Glucose 394 H (75-110) mg/dL Serum Osmolality (272-300) mosm/kg Calcium 8.7 (8.6-10.4) mg/dl Phosphorus (2.5-4.5) mg/dL Magnesium (1.6-2.3) mg/dL Total Bilirubin 0.8 (0.2-1.3) mg/dL AST 25 (17-59) U/L ALT 36 (21-72) U/L Alkaline Phosphatase 76 (38-126) U/L Total Protein 6.4 (6.3-8.3) g/dL Albumin 3.2 L (3.5-5.0) g/dL Globulin 3.2 (2.2-3.9) gm/dL Albumin/Globulin Ratio 1.0 (1.0-2.1) Procalcitonin (0.19-0.49) NG/ML Arterial Blood Potassium (3.6-5.2) mmol/L Urine Color Yellow (YELLOW) Urine Clarity Hazy (Clear) Urine pH 5.0 (5.0-8.0) Ur Specific [place] 1.027 (1.003-1.030) Urine Protein 2+ H (NEGATIVE) mg/dL Urine Glucose (UA) 3+ H (Normal) mg/dL Urine Ketones Negative (NEGATIVE) mg/dL Urine Blood Negative (NEGATIVE) Urine Nitrate Negative (NEGATIVE) Urine Bilirubin Negative (NEGATIVE) Urine Urobilinogen Normal (0.2-1.0) mg/dL Ur Leukocyte Esterase Neg (Negative) Minh/uL Urine WBC (Auto) 2 (0-5) /hpf Urine RBC (Auto) 5 H (0-3) /hpf Ur Squamous Epith Cells 1 (0-5) /hpf Granular Casts (Auto) 0-2 (0-1) /lpf Urine Yeast (Budding) Occ H (NEGATIVE) /hpf Urine Osmolality 764 (300-1000) mosm/kg Ur Random Potassium mmol/L Levetiracetam mcg/mL Blood Type Antibody Screen 02/08/18 02/08/18 02/08/18 Range/Units 11:00 07:07 07:07 WBC 6.3 (4.8-10.8) K/uL RBC 4.35 L (4.40-5.90) Mil/uL Hgb 13.5 (12.0-18.0) g/dL Hct 41.7 (35.0-51.0) % MCV 95.7 H (80.0-94.0) fL MCH 31.1 H (27.0-31.0) pg MCHC 32.5 L (33.0-37.0) g/dL RDW 13.1 (11.5-14.5) % Plt Count 122 L (130-400) K/uL MPV 11.5 (7.2-11.7) fL Neut % (Auto) 65.9 (50.0-75.0) % Lymph % (Auto) 25.4 (20.0-40.0) % [place] % (Auto) 7.6 (0.0-10.0) % Eos % (Auto) 0.4 (0.0-4.0) % Baso % (Auto) 0.7 (0.0-2.0) % Neut # (Auto) 4.2 (1.8-7.0) K/uL Lymph # (Auto) 1.6 (1.0-4.3) K/uL [place] # (Auto) 0.5 (0.0-0.8) K/uL Eos # (Auto) 0.0 (0.0-0.7) K/uL Baso # (Auto) 0.0 (0.0-0.2) K/uL Differential Comment Puncture Site pCO2 (35-45) mm/Hg pO2 (80-100) mm/Hg HCO3 (21-28) mmol/L ABG pH (7.35-7.45) ABG Total CO2 (22-28) mmol/L ABG O2 Saturation (95-98) % ABG Base Excess (-2.0-3.0) mmol/L Jamey Test ABG Potassium (3.6-5.2) mmol/L A-a O2 Difference mm/Hg Respiratory Index Glucose (75-110) mg/dl Lactate (0.7-2.1) mmol/L Vent Mode Mechanical Rate FiO2 % Tidal Volume PEEP Sodium 159 H (132-148) mmol/L Potassium 4.1 (3.6-5.2) mmol/L Chloride 116 H (98-107) mmol/L Carbon Dioxide 31 H (22-30) mmol/L Anion Gap 16 (10-20) BUN 43 H (9-20) mg/dL Creatinine 1.5 (0.8-1.5) mg/dL Est GFR ( Amer) 56 Est GFR (Non-Af Amer) 47 POC Glucose (mg/dL) 364 H (65-110) mg/dL Random Glucose 349 H (75-110) mg/dL Serum Osmolality (272-300) mosm/kg Calcium 8.5 L (8.6-10.4) mg/dl Phosphorus (2.5-4.5) mg/dL Magnesium 2.5 H (1.6-2.3) mg/dL Total Bilirubin (0.2-1.3) mg/dL AST (17-59) U/L ALT (21-72) U/L Alkaline Phosphatase (38-126) U/L Total Protein (6.3-8.3) g/dL Albumin (3.5-5.0) g/dL Globulin (2.2-3.9) gm/dL Albumin/Globulin Ratio (1.0-2.1) Procalcitonin (0.19-0.49) NG/ML Arterial Blood Potassium (3.6-5.2) mmol/L Urine Color (YELLOW) Urine Clarity (Clear) Urine pH (5.0-8.0) Ur Specific [place] (1.003-1.030) Urine Protein (NEGATIVE) mg/dL Urine Glucose (UA) (Normal) mg/dL Urine Ketones (NEGATIVE) mg/dL Urine Blood (NEGATIVE) Urine Nitrate (NEGATIVE) Urine Bilirubin (NEGATIVE) Urine Urobilinogen (0.2-1.0) mg/dL Ur Leukocyte Esterase (Negative) Minh/uL Urine WBC (Auto) (0-5) /hpf Urine RBC (Auto) (0-3) /hpf Ur Squamous Epith Cells (0-5) /hpf Granular Casts (Auto) (0-1) /lpf Urine Yeast (Budding) (NEGATIVE) /hpf Urine Osmolality (300-1000) mosm/kg Ur Random Potassium mmol/L Levetiracetam mcg/mL Blood Type Antibody Screen 02/08/18 02/08/18 02/07/18 Range/Units 06:04 00:02 20:58 WBC (4.8-10.8) K/uL RBC (4.40-5.90) Mil/uL Hgb (12.0-18.0) g/dL Hct (35.0-51.0) % MCV (80.0-94.0) fL MCH (27.0-31.0) pg MCHC (33.0-37.0) g/dL RDW (11.5-14.5) % Plt Count (130-400) K/uL MPV (7.2-11.7) fL Neut % (Auto) (50.0-75.0) % Lymph % (Auto) (20.0-40.0) % [place] % (Auto) (0.0-10.0) % Eos % (Auto) (0.0-4.0) % Baso % (Auto) (0.0-2.0) % Neut # (Auto) (1.8-7.0) K/uL Lymph # (Auto) (1.0-4.3) K/uL [place] # (Auto) (0.0-0.8) K/uL Eos # (Auto) (0.0-0.7) K/uL Baso # (Auto) (0.0-0.2) K/uL Differential Comment Puncture Site pCO2 (35-45) mm/Hg pO2 (80-100) mm/Hg HCO3 (21-28) mmol/L ABG pH (7.35-7.45) ABG Total CO2 (22-28) mmol/L ABG O2 Saturation (95-98) % ABG Base Excess (-2.0-3.0) mmol/L Jamey Test ABG Potassium (3.6-5.2) mmol/L A-a O2 Difference mm/Hg Respiratory Index Glucose (75-110) mg/dl Lactate (0.7-2.1) mmol/L Vent Mode Mechanical Rate FiO2 % Tidal Volume PEEP Sodium (132-148) mmol/L Potassium (3.6-5.2) mmol/L Chloride (98-107) mmol/L Carbon Dioxide (22-30) mmol/L Anion Gap (10-20) BUN (9-20) mg/dL Creatinine (0.8-1.5) mg/dL Est GFR ( Amer) Est GFR (Non-Af Amer) POC Glucose (mg/dL) 326 H 330 H (65-110) mg/dL Random Glucose (75-110) mg/dL Serum Osmolality (272-300) mosm/kg Calcium (8.6-10.4) mg/dl Phosphorus (2.5-4.5) mg/dL Magnesium (1.6-2.3) mg/dL Total Bilirubin (0.2-1.3) mg/dL AST (17-59) U/L ALT (21-72) U/L Alkaline Phosphatase (38-126) U/L Total Protein (6.3-8.3) g/dL Albumin (3.5-5.0) g/dL Globulin (2.2-3.9) gm/dL Albumin/Globulin Ratio (1.0-2.1) Procalcitonin (0.19-0.49) NG/ML Arterial Blood Potassium (3.6-5.2) mmol/L Urine Color (YELLOW) Urine Clarity (Clear) Urine pH (5.0-8.0) Ur Specific [place] (1.003-1.030) Urine Protein (NEGATIVE) mg/dL Urine Glucose (UA) (Normal) mg/dL Urine Ketones (NEGATIVE) mg/dL Urine Blood (NEGATIVE) Urine Nitrate (NEGATIVE) Urine Bilirubin (NEGATIVE) Urine Urobilinogen (0.2-1.0) mg/dL Ur Leukocyte Esterase (Negative) Minh/uL Urine WBC (Auto) (0-5) /hpf Urine RBC (Auto) (0-3) /hpf Ur Squamous Epith Cells (0-5) /hpf Granular Casts (Auto) (0-1) /lpf Urine Yeast (Budding) (NEGATIVE) /hpf Urine Osmolality (300-1000) mosm/kg Ur Random Potassium mmol/L Levetiracetam mcg/mL Blood Type O POSITIVE Antibody Screen Negative 02/05/18 Range/Units 13:54 WBC (4.8-10.8) K/uL RBC (4.40-5.90) Mil/uL Hgb (12.0-18.0) g/dL Hct (35.0-51.0) % MCV (80.0-94.0) fL MCH (27.0-31.0) pg MCHC (33.0-37.0) g/dL RDW (11.5-14.5) % Plt Count (130-400) K/uL MPV (7.2-11.7) fL Neut % (Auto) (50.0-75.0) % Lymph % (Auto) (20.0-40.0) % [place] % (Auto) (0.0-10.0) % Eos % (Auto) (0.0-4.0) % Baso % (Auto) (0.0-2.0) % Neut # (Auto) (1.8-7.0) K/uL Lymph # (Auto) (1.0-4.3) K/uL [place] # (Auto) (0.0-0.8) K/uL Eos # (Auto) (0.0-0.7) K/uL Baso # (Auto) (0.0-0.2) K/uL Differential Comment Puncture Site pCO2 (35-45) mm/Hg pO2 (80-100) mm/Hg HCO3 (21-28) mmol/L ABG pH (7.35-7.45) ABG Total CO2 (22-28) mmol/L ABG O2 Saturation (95-98) % ABG Base Excess (-2.0-3.0) mmol/L Jamey Test ABG Potassium (3.6-5.2) mmol/L A-a O2 Difference mm/Hg Respiratory Index Glucose (75-110) mg/dl Lactate (0.7-2.1) mmol/L Vent Mode Mechanical Rate FiO2 % Tidal Volume PEEP Sodium (132-148) mmol/L Potassium (3.6-5.2) mmol/L Chloride (98-107) mmol/L Carbon Dioxide (22-30) mmol/L Anion Gap (10-20) BUN (9-20) mg/dL Creatinine (0.8-1.5) mg/dL Est GFR ( Amer) Est GFR (Non-Af Amer) POC Glucose (mg/dL) (65-110) mg/dL Random Glucose (75-110) mg/dL Serum Osmolality (272-300) mosm/kg Calcium (8.6-10.4) mg/dl Phosphorus (2.5-4.5) mg/dL Magnesium (1.6-2.3) mg/dL Total Bilirubin (0.2-1.3) mg/dL AST (17-59) U/L ALT (21-72) U/L Alkaline Phosphatase (38-126) U/L Total Protein (6.3-8.3) g/dL Albumin (3.5-5.0) g/dL Globulin (2.2-3.9) gm/dL Albumin/Globulin Ratio (1.0-2.1) Procalcitonin (0.19-0.49) NG/ML Arterial Blood Potassium (3.6-5.2) mmol/L Urine Color (YELLOW) Urine Clarity (Clear) Urine pH (5.0-8.0) Ur Specific [place] (1.003-1.030) Urine Protein (NEGATIVE) mg/dL Urine Glucose (UA) (Normal) mg/dL Urine Ketones (NEGATIVE) mg/dL Urine Blood (NEGATIVE) Urine Nitrate (NEGATIVE) Urine Bilirubin (NEGATIVE) Urine Urobilinogen (0.2-1.0) mg/dL Ur Leukocyte Esterase (Negative) Minh/uL Urine WBC (Auto) (0-5) /hpf Urine RBC (Auto) (0-3) /hpf Ur Squamous Epith Cells (0-5) /hpf Granular Casts (Auto) (0-1) /lpf Urine Yeast (Budding) (NEGATIVE) /hpf Urine Osmolality (300-1000) mosm/kg Ur Random Potassium mmol/L Levetiracetam 37.5 mcg/mL Blood Type Antibody Screen Laboratory Results - last 24 hr 02/05/18 02/07/18 02/08/18 13:54 20:58 00:02 WBC RBC Hgb Hct MCV MCH MCHC RDW Plt Count MPV Neut % (Auto) Lymph % (Auto) [place] % (Auto) Eos % (Auto) Baso % (Auto) Neut # (Auto) Lymph # (Auto) [place] # (Auto) Eos # (Auto) Baso # (Auto) Differential Comment Puncture Site pCO2 pO2 HCO3 ABG pH ABG Total CO2 ABG O2 Saturation ABG Base Excess Jamey Test ABG Potassium A-a O2 Difference Respiratory Index Glucose Lactate Vent Mode Mechanical Rate FiO2 Tidal Volume PEEP Sodium Potassium Chloride Carbon Dioxide Anion Gap BUN Creatinine Est GFR ( Amer) Est GFR (Non-Af Amer) POC Glucose (mg/dL) 330 H Random Glucose Serum Osmolality Calcium Phosphorus Magnesium Total Bilirubin AST ALT Alkaline Phosphatase Total Protein Albumin Globulin Albumin/Globulin Ratio Procalcitonin Arterial Blood Potassium Urine Color Urine Clarity Urine pH Ur Specific [place] Urine Protein Urine Glucose (UA) Urine Ketones Urine Blood Urine Nitrate Urine Bilirubin Urine Urobilinogen Ur Leukocyte Esterase Urine WBC (Auto) Urine RBC (Auto) Ur Squamous Epith Cells Granular Casts (Auto) Urine Yeast (Budding) Urine Osmolality Ur Random Potassium Levetiracetam 37.5 Blood Type O POSITIVE Antibody Screen Negative 02/08/18 02/08/18 02/08/18 06:04 07:07 07:07 WBC 6.3 RBC 4.35 L Hgb 13.5 Hct 41.7 MCV 95.7 H MCH 31.1 H MCHC 32.5 L RDW 13.1 Plt Count 122 L MPV 11.5 Neut % (Auto) 65.9 Lymph % (Auto) 25.4 [place] % (Auto) 7.6 Eos % (Auto) 0.4 Baso % (Auto) 0.7 Neut # (Auto) 4.2 Lymph # (Auto) 1.6 [place] # (Auto) 0.5 Eos # (Auto) 0.0 Baso # (Auto) 0.0 Differential Comment Puncture Site pCO2 pO2 HCO3 ABG pH ABG Total CO2 ABG O2 Saturation ABG Base Excess Jamey Test ABG Potassium A-a O2 Difference Respiratory Index Glucose Lactate Vent Mode Mechanical Rate FiO2 Tidal Volume PEEP Sodium 159 H Potassium 4.1 Chloride 116 H Carbon Dioxide 31 H Anion Gap 16 BUN 43 H Creatinine 1.5 Est GFR ( Amer) 56 Est GFR (Non-Af Amer) 47 POC Glucose (mg/dL) 326 H Random Glucose 349 H Serum Osmolality Calcium 8.5 L Phosphorus Magnesium 2.5 H Total Bilirubin AST ALT Alkaline Phosphatase Total Protein Albumin Globulin Albumin/Globulin Ratio Procalcitonin Arterial Blood Potassium Urine Color Urine Clarity Urine pH Ur Specific [place] Urine Protein Urine Glucose (UA) Urine Ketones Urine Blood Urine Nitrate Urine Bilirubin Urine Urobilinogen Ur Leukocyte Esterase Urine WBC (Auto) Urine RBC (Auto) Ur Squamous Epith Cells Granular Casts (Auto) Urine Yeast (Budding) Urine Osmolality Ur Random Potassium Levetiracetam Blood Type Antibody Screen 02/08/18 02/08/18 02/08/18 11:00 13:53 16:23 WBC RBC Hgb Hct MCV MCH MCHC RDW Plt Count MPV Neut % (Auto) Lymph % (Auto) [place] % (Auto) Eos % (Auto) Baso % (Auto) Neut # (Auto) Lymph # (Auto) [place] # (Auto) Eos # (Auto) Baso # (Auto) Differential Comment Puncture Site pCO2 pO2 HCO3 ABG pH ABG Total CO2 ABG O2 Saturation ABG Base Excess Jamey Test ABG Potassium A-a O2 Difference Respiratory Index Glucose Lactate Vent Mode Mechanical Rate FiO2 Tidal Volume PEEP Sodium 160 H* Potassium 4.1 Chloride 116 H Carbon Dioxide 32 H Anion Gap 16 BUN 45 H Creatinine 1.6 H Est GFR ( Amer) 52 Est GFR (Non-Af Amer) 43 POC Glucose (mg/dL) 364 H Random Glucose 394 H Serum Osmolality Calcium 8.7 Phosphorus Magnesium Total Bilirubin 0.8 AST 25 ALT 36 Alkaline Phosphatase 76 Total Protein 6.4 Albumin 3.2 L Globulin 3.2 Albumin/Globulin Ratio 1.0 Procalcitonin Arterial Blood Potassium Urine Color Urine Clarity Urine pH Ur Specific [place] Urine Protein Urine Glucose (UA) Urine Ketones Urine Blood Urine Nitrate Urine Bilirubin Urine Urobilinogen Ur Leukocyte Esterase Urine WBC (Auto) Urine RBC (Auto) Ur Squamous Epith Cells Granular Casts (Auto) Urine Yeast (Budding) Urine Osmolality 764 Ur Random Potassium Levetiracetam Blood Type Antibody Screen 02/08/18 02/08/18 02/08/18 16:23 17:25 17:39 WBC RBC Hgb Hct MCV MCH MCHC RDW Plt Count MPV Neut % (Auto) Lymph % (Auto) [place] % (Auto) Eos % (Auto) Baso % (Auto) Neut # (Auto) Lymph # (Auto) [place] # (Auto) Eos # (Auto) Baso # (Auto) Differential Comment Puncture Site pCO2 pO2 HCO3 ABG pH ABG Total CO2 ABG O2 Saturation ABG Base Excess Jamey Test ABG Potassium A-a O2 Difference Respiratory Index Glucose Lactate Vent Mode Mechanical Rate FiO2 Tidal Volume PEEP Sodium Potassium Chloride Carbon Dioxide Anion Gap BUN Creatinine 1.7 H Est GFR ( Amer) 49 Est GFR (Non-Af Amer) 40 POC Glucose (mg/dL) Random Glucose Serum Osmolality Calcium Phosphorus Magnesium Total Bilirubin AST ALT Alkaline Phosphatase Total Protein Albumin Globulin Albumin/Globulin Ratio Procalcitonin Arterial Blood Potassium Urine Color Yellow Urine Clarity Hazy Urine pH 5.0 Ur Specific [place] 1.027 Urine Protein 2+ H Urine Glucose (UA) 3+ H Urine Ketones Negative Urine Blood Negative Urine Nitrate Negative Urine Bilirubin Negative Urine Urobilinogen Normal Ur Leukocyte Esterase Neg Urine WBC (Auto) 2 Urine RBC (Auto) 5 H Ur Squamous Epith Cells 1 Granular Casts (Auto) 0-2 Urine Yeast (Budding) Occ H Urine Osmolality Ur Random Potassium 63.3 Levetiracetam Blood Type Antibody Screen 02/08/18 02/08/18 02/08/18 17:39 18:00 19:02 WBC RBC Hgb Hct MCV MCH MCHC RDW Plt Count MPV Neut % (Auto) Lymph % (Auto) [place] % (Auto) Eos % (Auto) Baso % (Auto) Neut # (Auto) Lymph # (Auto) [place] # (Auto) Eos # (Auto) Baso # (Auto) Differential Comment Puncture Site pCO2 pO2 HCO3 ABG pH ABG Total CO2 ABG O2 Saturation ABG Base Excess Jamey Test ABG Potassium A-a O2 Difference Respiratory Index Glucose Lactate Vent Mode Mechanical Rate FiO2 Tidal Volume PEEP Sodium Potassium Chloride Carbon Dioxide Anion Gap BUN Creatinine Est GFR ( Amer) Est GFR (Non-Af Amer) POC Glucose (mg/dL) 345 H 350 H Random Glucose Serum Osmolality 357 H Calcium Phosphorus Magnesium Total Bilirubin AST ALT Alkaline Phosphatase Total Protein Albumin Globulin Albumin/Globulin Ratio Procalcitonin Arterial Blood Potassium Urine Color Urine Clarity Urine pH Ur Specific [place] Urine Protein Urine Glucose (UA) Urine Ketones Urine Blood Urine Nitrate Urine Bilirubin Urine Urobilinogen Ur Leukocyte Esterase Urine WBC (Auto) Urine RBC (Auto) Ur Squamous Epith Cells Granular Casts (Auto) Urine Yeast (Budding) Urine Osmolality Ur Random Potassium Levetiracetam Blood Type Antibody Screen 02/08/18 02/08/18 02/08/18 20:30 20:47 20:47 WBC 6.2 RBC 3.78 L Hgb 11.9 L Hct 36.2 MCV 95.8 H MCH 31.4 H MCHC 32.8 L RDW 13.2 Plt Count 98 L D MPV 11.7 Neut % (Auto) 67.6 Lymph % (Auto) 24.5 [place] % (Auto) 7.0 Eos % (Auto) 0.4 Baso % (Auto) 0.5 Neut # (Auto) 4.2 Lymph # (Auto) 1.5 [place] # (Auto) 0.4 Eos # (Auto) 0.0 Baso # (Auto) 0.0 Differential Comment Puncture Site Rba pCO2 41 pO2 282 H HCO3 30.6 H ABG pH 7.49 H ABG Total CO2 32.5 H ABG O2 Saturation 99.2 H ABG Base Excess 7.2 H Jamey Test Pos ABG Potassium 3.7 A-a O2 Difference 237.0 Respiratory Index 0.8 Glucose 344 H Lactate 1.6 Vent Mode Prvc Mechanical Rate 16 FiO2 80.0 Tidal Volume 500 PEEP 5 Sodium 158.0 H Potassium Chloride 121.0 H Carbon Dioxide Anion Gap BUN Creatinine Est GFR ( Amer) Est GFR (Non-Af Amer) POC Glucose (mg/dL) Random Glucose Serum Osmolality Calcium Phosphorus Magnesium Total Bilirubin AST ALT Alkaline Phosphatase Total Protein Albumin Globulin Albumin/Globulin Ratio Procalcitonin 0.08 L Arterial Blood Potassium 3.7 Urine Color Urine Clarity Urine pH Ur Specific [place] Urine Protein Urine Glucose (UA) Urine Ketones Urine Blood Urine Nitrate Urine Bilirubin Urine Urobilinogen Ur Leukocyte Esterase Urine WBC (Auto) Urine RBC (Auto) Ur Squamous Epith Cells Granular Casts (Auto) Urine Yeast (Budding) Urine Osmolality Ur Random Potassium Levetiracetam Blood Type Antibody Screen 02/08/18 20:47 WBC RBC Hgb Hct MCV MCH MCHC RDW Plt Count MPV Neut % (Auto) Lymph % (Auto) [place] % (Auto) Eos % (Auto) Baso % (Auto) Neut # (Auto) Lymph # (Auto) [place] # (Auto) Eos # (Auto) Baso # (Auto) Differential Comment Puncture Site pCO2 pO2 HCO3 ABG pH ABG Total CO2 ABG O2 Saturation ABG Base Excess Jamey Test ABG Potassium A-a O2 Difference Respiratory Index Glucose Lactate Vent Mode Mechanical Rate FiO2 Tidal Volume PEEP Sodium 156 H Potassium 3.9 Chloride 117 H Carbon Dioxide 29 Anion Gap 14 BUN 47 H Creatinine 1.8 H Est GFR ( Amer) 46 Est GFR (Non-Af Amer) 38 POC Glucose (mg/dL) Random Glucose 331 H Serum Osmolality Calcium 8.4 L Phosphorus 4.4 Magnesium 2.4 H Total Bilirubin 0.7 AST 22 ALT 30 Alkaline Phosphatase 61 Total Protein 5.6 L Albumin 2.7 L Globulin 2.9 Albumin/Globulin Ratio 0.9 L Procalcitonin Arterial Blood Potassium Urine Color Urine Clarity Urine pH Ur Specific [place] Urine Protein Urine Glucose (UA) Urine Ketones Urine Blood Urine Nitrate Urine Bilirubin Urine Urobilinogen Ur Leukocyte Esterase Urine WBC (Auto) Urine RBC (Auto) Ur Squamous Epith Cells Granular Casts (Auto) Urine Yeast (Budding) Urine Osmolality Ur Random Potassium Levetiracetam Blood Type Antibody Screen Fingerstick Blood Sugar Results: 345 Critical Care Progress Note - Ventilator Checklist Head of Bed 30 Degrees: Yes Daily Sedation Vacation: Yes Daily Assessment of Readiness to Wean: Yes Daily Spontaneous Breathing Trial: Yes PUD Prophalyxis: Yes DVT Prophylaxis: Yes Oral Care with Chlorhexidine Gluconate {CHG}: Yes Assessment/Plan (1) Acute respiratory failure with hypoxia Current Visit: Yes Status: Acute Comment: Hypoxic respiratory failrue sec to Acute PE, plus AMS Fulll vent support Continue current vent sitting to keep spo2 >92, CPAP trials as tolerates Not awake to extubate currently (2) Acute saddle pulmonary embolism Current Visit: Yes Status: Acute Comment: I started the patient on Heparin drip Moniotor PTT ECHO Monirot for any bleeding (3) Altered mental status Current Visit: Yes Status: Acute (4) Encephalopathy Current Visit: Yes Status: Acute (5) Seizure Current Visit: Yes Status: Acute Comment: Continue antiseizure medicines (6) Sepsis Current Visit: Yes Status: Acute Comment: Continue antibiotics Follow up Cultures, ABG and chest x-ray (7) COPD (chronic obstructive pulmonary disease) Current Visit: No Status: Acute (8) Congestive heart failure Current Visit: No Status: Acute (9) CKD (chronic kidney disease) Current Visit: Yes Status: Acute - Assessment and Plan (Free Text) Assessment: Discussed with the family in details diagnosis, treatment plans and alternatives , GI PPX: Protonix 40 mg Daily DVT PPX: Heparin drip Code status: Full code Total critical care time 43 minutes
[2018-02-08] MEDS: Vancomycin 1 GM in Dextrose 5% In Water 250 ML IVPB SCH (21:50)
[2018-02-08] MEDS: WATER IV SCH (21:51)
[2018-02-08] MEDS: ACYCLOVIR IV SCH (21:51)
[2018-02-08] MEDS: DEXTROSE 5% IV SCH (21:51)
[2018-02-08] MEDS: WATER IVPB SCH (22:08)
[2018-02-08] MEDS: LEVETIRACETAM IVPB SCH (22:08)
[2018-02-08] MEDS: DEXTROSE 5% IVPB SCH (22:08)
--- NOTE | 2018-02-08 22:13 | CP.PCM.PN ---
Subjective - Date & Time of Evaluation Date of Evaluation: 02/08/18 Time of Evaluation: 19:00 - Subjective Subjective: Pt seen and examined remains drowsy, weak, NG tube in place,peg placement by surgery is on hold due to elevated sodium which is eventually coming down, i spoke to pt daughter about his poor response to all theraputic measures , and hence palliative care consult was called.IN meantime pt deterioted and went in resp distress was transferred to ICU and put on Mechanical ventilator Objective - Vital Signs/Intake and Output Vital Signs (last 24 hours): Temp Pulse Resp BP Pulse Ox 100.2 F H 99 H 16 114/74 100 02/08/18 20:00 02/08/18 21:08 02/08/18 21:08 02/08/18 20:00 02/08/18 21:08 Intake and Output: 02/08/18 02/09/18 18:59 06:59 Intake Total 775 Balance 775 - Medications Medications: Current Medications Acetaminophen (Tylenol 650mg/20.3ml Solution Ud) 650 mg NG Q6 PRN PRN Reason: GIVE FOR TEMP. 100*F OR ABOVE Last Admin: 02/05/18 20:48 Dose: 650 mg Albuterol/Ipratropium (Duoneb 3 Mg/0.5 Mg (3 Ml) Ud) 3 ml INH RQ6 [facility] Last Admin: 02/08/18 13:51 Dose: Not Given Aspirin (Aspirin Chewable) 81 mg PO DAILY [facility] Last Admin: 02/08/18 10:37 Dose: Not Given Carvedilol (Coreg) 12.5 mg PO BID [facility] Last Admin: 02/08/18 18:00 Dose: Not Given Heparin Sodium (Porcine) (Heparin) 5,000 units SC Q8 [facility] Last Admin: 02/07/18 14:13 Dose: 5,000 units Hydralazine HCl (Apresoline) 100 mg PO Q8 [facility] Last Admin: 02/08/18 21:48 Dose: Not Given Dextrose (Dextrose 5% In Water 1000 Ml) 1,000 mls @ 125 mls/hr IV .Q8H [facility] Last Admin: 02/08/18 20:58 Dose: 125 mls/hr Levetiracetam 500 mg/ Dextrose 55 mls @ 420 mls/hr IVPB Q12H [facility] Last Admin: 02/08/18 22:08 Dose: 420 mls/hr Vancomycin HCl 1 gm/ Dextrose 250 mls @ 166.7 mls/hr IVPB Q48H [facility] PRN Reason: Protocol Last Admin: 02/08/18 21:50 Dose: 166.7 mls/hr Cefepime HCl (Maxipime Iv 2 Gm Premix) 2 gm in 100 mls @ 200 mls/hr IVPB Q12H [facility] PRN Reason: Protocol Stop: 02/13/18 19:01 Last Admin: 02/08/18 20:30 Dose: 200 mls/hr Acyclovir 750 mg/ Dextrose 250 mls @ 100 mls/hr IV Q12H [facility] PRN Reason: Protocol Last Admin: 02/08/18 21:51 Dose: 100 mls/hr Heparin Sodium/Sodium Chloride (Heparin 54733 Units/250ml 1/2 Normal Saline) 25 ,000 units in 250 mls @ 0 mls/hr IV .Q0M PRN; Protocol; Per Protocol PRN Reason: PROTOCOL Last Admin: 02/08/18 22:00 Dose: 16.7 mls/hr Insulin Glargine (Lantus) 20 unit SC BID [facility] Last Admin: 02/08/18 18:00 Dose: Not Given Insulin Human Regular (Novolin R) 0 unit SC Q6 [facility] PRN Reason: Protocol Last Admin: 02/08/18 18:00 Dose: Not Given Pantoprazole Sodium (Protonix Susp) 40 mg PO 1000 [facility] Last Admin: 02/08/18 10:38 Dose: Not Given Tamsulosin HCl (Flomax) 0.4 mg PO DAILY [facility] Last Admin: 02/08/18 10:38 Dose: Not Given - Labs Labs: 02/08/18 20:47 02/08/18 20:47 PT 12.4 SECONDS (9.7-12.2) H 02/02/18 06:19 INR 1.1 02/02/18 06:19 APTT 29 SECONDS (21-34) 02/02/18 06:19 - Constitutional Appears: Confused, Chronically Ill - Head Exam Head Exam: ATRAUMATIC, NORMAL INSPECTION, NORMOCEPHALIC - Respiratory Exam Respiratory Exam: Decreased Breath Sounds, Rales, Rhonchi - Cardiovascular Exam Cardiovascular Exam: REGULAR RHYTHM, +S1, +S2. absent: Murmur - GI/Abdominal Exam GI & Abdominal Exam: Soft, Normal Bowel Sounds. absent: Tenderness Assessment and Plan (1) Status epilepticus Assessment & Plan: h/o AMS of unknown etiology no new CVA on two MRI questionaable seizure disorder Status: Acute (2) COPD (chronic obstructive pulmonary disease) Status: Acute (3) Congestive heart failure Status: Acute (4) Diabetes Status: Acute (5) Hypernatremia Assessment & Plan: Na is coming down Status: Acute (6) Acute respiratory failure Assessment & Plan: recurrent resp failure placed on MV Status: Acute
[2018-02-09] MEDS: (Novolin R) Insulin Human Regular 100 units/ml vial SC SCH ×2 (00:35→05:49)
[2018-02-09] MEDS: Albuterol-Ipratrop 3 mg / 0.5 (3 ml) UD INH SCH ×4 (02:15→19:31)
[2018-02-09 05:01] LABS: BASO % 0.4 % (0.0-2.0); EOS # 0.1 K/uL (0.0-0.7); HEMOGLOBIN 11.7 g/dL (12.0-18.0); LYMPH # 1.8 K/uL (1.0-4.3); LYMPH % 25.5 % (20.0-40.0); MEAN CELL VOLUME 97.2 fL (80.0-94.0); MEAN CORPUSCULAR HEMOGLOBIN 31.4 pg (27.0-31.0); MEAN CORPUSCULAR HGB CONC 32.3 g/dL (33.0-37.0); MEAN PLATELET VOLUME 11.7 fL (7.2-11.7); MONO # 0.4 K/uL (0.0-0.8); MONO % 5.6 % (0.0-10.0); NEUT # 4.7 K/uL (1.8-7.0); NEUT % 67.5 % (50.0-75.0); NRBC % 0.2 % (0.0-2.0); RBC 3.73 Mil/uL (4.40-5.90); RED CELL DISTRIBUTION WIDTH 13.3 % (11.5-14.5); WHITE BLOOD COUNT 6.9 K/uL (4.8-10.8)
[2018-02-09 05:25] LABS: ALB/GLOB RATIO 0.9 (1.0-2.1); ALBUMIN 2.6 g/dL (3.5-5.0)
[2018-02-09 05:28] LABS: CK-MB 0.99 ng/mL (0.0-3.38); TROPONIN I 0.081 ng/mL (0.00-0.120)
[2018-02-09 05:35] LABS: ARTERIAL BLOOD GAS HCO3 29.9 mmol/L (21-28); ARTERIAL BLOOD GAS HEMOGLOBIN 11.1 g/dL (11.7-17.4); ARTERIAL BLOOD GAS O2 SAT 98.6 % (95-98); ARTERIAL BLOOD GAS PCO2 41 mm/Hg (35-45); ARTERIAL BLOOD GAS PH 7.48 (7.35-7.45); ARTERIAL BLOOD GAS PO2 90 mm/Hg (80-100); ARTERIAL BLOOD GAS TCO2 31.8 mmol/L (22-28)
[2018-02-09] MEDS: Cefepime IV 2 gm in Dextrose 2 GM/100 ML BAG IVPB SCH ×2 (06:17→18:34)
--- NOTE | 2018-02-09 06:34 | CP.PCM.PN ---
Subjective - Date & Time of Evaluation Date of Evaluation: 02/09/18 Time of Evaluation: 06:33 - Subjective Subjective: Mr. Latif was seen and examined at the bedside in ICU. He is o mechanical ventilator on PRVC mode. He response to pain stimuli with facial grimacing and moving his right upper extremity. GCS-4T.He is unable to move all other extremities. His eyes remain unequal left 3mm and right 2 mm sluggish to react. He had an episode of respiratory distress last night in which he needs to be on mechanical ventilator. CT of the chest showed bilateral PE. Due to a change of mental status yesterday, MRI of the brain was done which showed no acute intracranial findings. Age-related neuro-degenerative change are identified as well as small chronic lobar infarction, right occipital lobe , and multiple chronic lacunae cysts. Objective - Vital Signs/Intake and Output Vital Signs (last 24 hours): Temp Pulse Resp BP Pulse Ox 99.8 F H 93 H 16 107/62 100 02/09/18 04:00 02/09/18 06:00 02/09/18 06:00 02/09/18 05:58 02/09/18 06:00 Intake and Output: 02/08/18 02/09/18 18:59 06:59 Intake Total 775 2383.6 Output Total 1830 Balance 775 553.6 - Medications Medications: Current Medications Acetaminophen (Tylenol 650mg/20.3ml Solution Ud) 650 mg NG Q6 PRN PRN Reason: GIVE FOR TEMP. 100*F OR ABOVE Last Admin: 02/05/18 20:48 Dose: 650 mg Albuterol/Ipratropium (Duoneb 3 Mg/0.5 Mg (3 Ml) Ud) 3 ml INH RQ6 [facility] Last Admin: 02/09/18 02:15 Dose: 3 ml Aspirin (Aspirin Chewable) 81 mg PO DAILY [facility] Last Admin: 02/08/18 10:37 Dose: Not Given Carvedilol (Coreg) 12.5 mg PO BID [facility] Last Admin: 02/08/18 18:00 Dose: Not Given Hydralazine HCl (Apresoline) 100 mg PO Q8 [facility] Last Admin: 02/09/18 05:50 Dose: Not Given Dextrose (Dextrose 5% In Water 1000 Ml) 1,000 mls @ 125 mls/hr IV .Q8H [facility] Last Admin: 02/09/18 03:43 Dose: 125 mls/hr Levetiracetam 500 mg/ Dextrose 55 mls @ 420 mls/hr IVPB Q12H [facility] Last Admin: 02/08/18 22:08 Dose: 420 mls/hr Vancomycin HCl 1 gm/ Dextrose 250 mls @ 166.7 mls/hr IVPB Q48H [facility] PRN Reason: Protocol Last Admin: 02/08/18 21:50 Dose: 166.7 mls/hr Cefepime HCl (Maxipime Iv 2 Gm Premix) 2 gm in 100 mls @ 200 mls/hr IVPB Q12H [facility] PRN Reason: Protocol Stop: 02/13/18 19:01 Last Admin: 02/09/18 06:17 Dose: 200 mls/hr Acyclovir 750 mg/ Dextrose 250 mls @ 100 mls/hr IV Q12H [facility] PRN Reason: Protocol Last Admin: 02/08/18 21:51 Dose: 100 mls/hr Heparin Sodium/Sodium Chloride (Heparin 37721 Units/250ml 1/2 Normal Saline) 25 ,000 units in 250 mls @ 0 mls/hr IV .Q0M PRN; Protocol; Per Protocol PRN Reason: PROTOCOL Last Titration: 02/09/18 05:30 Dose: 0 mls/hr Insulin Glargine (Lantus) 20 unit SC BID [facility] Last Admin: 02/08/18 18:00 Dose: Not Given Insulin Human Regular (Novolin R) 0 unit SC Q6 [facility] PRN Reason: Protocol Last Admin: 02/09/18 05:49 Dose: 12 unit Pantoprazole Sodium (Protonix Susp) 40 mg PO 1000 [facility] Last Admin: 02/08/18 10:38 Dose: Not Given Tamsulosin HCl (Flomax) 0.4 mg PO DAILY [facility] Last Admin: 02/08/18 10:38 Dose: Not Given - Labs Labs: 02/09/18 04:45 02/09/18 04:45 PT 12.4 SECONDS (9.7-12.2) H 02/02/18 06:19 INR 1.1 02/02/18 06:19 APTT 177 SECONDS (21-34) H* 02/09/18 04:45 - Constitutional Appears: No Acute Distress - Head Exam Head Exam: NORMAL INSPECTION - Eye Exam Pupil Exam: PERRL Additional comments: left 3 mm and right 2 mm sluggish to react. - Neurological Exam Neuro motor strength exam: Left Upper Extremity: 0, Right Upper Extremity: 2/1, Left Lower Extremity: 0, Right Lower Extremity: 0 Additional comments: GCS-4T Assessment and Plan (1) Status epilepticus Assessment & Plan: Case discussed with Dr. Perez,continue all current medical regimen including AED. Recommend to defer treatment of pulmonary emboli to both to the perfumer and primary team. Status: Acute
--- NOTE | 2018-02-09 07:31 | CP.PCM.PN ---
Subjective - Date & Time of Evaluation Date of Evaluation: 02/09/18 Time of Evaluation: 07:10 - Subjective Subjective: Surgery Progress note. Dr. Giordaon Pt seen and examined at bedside. 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 Patient was intubated, moved to the ICU last night. CTA Chest performed and found to have a PE. On vent. Objective - Vital Signs/Intake and Output Vital Signs (last 24 hours): Temp Pulse Resp BP Pulse Ox 99.8 F H 93 H 16 107/62 100 02/09/18 04:00 02/09/18 06:00 02/09/18 06:00 02/09/18 05:58 02/09/18 06:00 Intake and Output: 02/09/18 02/09/18 06:59 18:59 Intake Total 2383.6 Output Total 1830 Balance 553.6 - Medications Medications: Current Medications Acetaminophen (Tylenol 650mg/20.3ml Solution Ud) 650 mg NG Q6 PRN PRN Reason: GIVE FOR TEMP. 100*F OR ABOVE Last Admin: 02/05/18 20:48 Dose: 650 mg Albuterol/Ipratropium (Duoneb 3 Mg/0.5 Mg (3 Ml) Ud) 3 ml INH RQ6 [facility] Last Admin: 02/09/18 02:15 Dose: 3 ml Aspirin (Aspirin Chewable) 81 mg PO DAILY [facility] Last Admin: 02/08/18 10:37 Dose: Not Given Carvedilol (Coreg) 12.5 mg PO BID [facility] Last Admin: 02/08/18 18:00 Dose: Not Given Hydralazine HCl (Apresoline) 100 mg PO Q8 [facility] Last Admin: 02/09/18 05:50 Dose: Not Given Dextrose (Dextrose 5% In Water 1000 Ml) 1,000 mls @ 125 mls/hr IV .Q8H [facility] Last Admin: 02/09/18 03:43 Dose: 125 mls/hr Levetiracetam 500 mg/ Dextrose 55 mls @ 420 mls/hr IVPB Q12H [facility] Last Admin: 02/08/18 22:08 Dose: 420 mls/hr Vancomycin HCl 1 gm/ Dextrose 250 mls @ 166.7 mls/hr IVPB Q48H [facility] PRN Reason: Protocol Last Admin: 02/08/18 21:50 Dose: 166.7 mls/hr Cefepime HCl (Maxipime Iv 2 Gm Premix) 2 gm in 100 mls @ 200 mls/hr IVPB Q12H [facility] PRN Reason: Protocol Stop: 02/13/18 19:01 Last Admin: 02/09/18 06:17 Dose: 200 mls/hr Acyclovir 750 mg/ Dextrose 250 mls @ 100 mls/hr IV Q12H [facility] PRN Reason: Protocol Last Admin: 02/08/18 21:51 Dose: 100 mls/hr Heparin Sodium/Sodium Chloride (Heparin 03886 Units/250ml 1/2 Normal Saline) 25 ,000 units in 250 mls @ 0 mls/hr IV .Q0M PRN; Protocol; Per Protocol PRN Reason: PROTOCOL Last Titration: 02/09/18 06:38 Dose: 13.9 mls/hr Insulin Glargine (Lantus) 20 unit SC BID [facility] Last Admin: 02/08/18 18:00 Dose: Not Given Insulin Human Regular (Novolin R) 0 unit SC Q6 [facility] PRN Reason: Protocol Last Admin: 02/09/18 05:49 Dose: 12 unit Pantoprazole Sodium (Protonix Susp) 40 mg PO 1000 [facility] Last Admin: 02/08/18 10:38 Dose: Not Given Tamsulosin HCl (Flomax) 0.4 mg PO DAILY [facility] Last Admin: 02/08/18 10:38 Dose: Not Given - Labs Labs: 02/09/18 04:45 02/09/18 04:45 PT 12.4 SECONDS (9.7-12.2) H 02/02/18 06:19 INR 1.1 02/02/18 06:19 APTT 177 SECONDS (21-34) H* 02/09/18 04:45 - Constitutional Appears: Non-toxic - Head Exam Head Exam: ATRAUMATIC, NORMAL INSPECTION, NORMOCEPHALIC - ENT Exam Additional comments: Intubated and on vent - Cardiovascular Exam Cardiovascular Exam: absent: JVD - GI/Abdominal Exam GI & Abdominal Exam: Soft. absent: Distended, Firm, Guarding, Rigid, Tenderness - Extremities Exam Extremities Exam: Normal Inspection. absent: Calf Tenderness - Neurological Exam Additional comments: intubated on vent Assessment and Plan - Assessment and Plan (Free Text) Assessment: 67yo M with AMS. Surgery following for gastrostomy placement Plan: - Will monitor clinical course and schedule OR for gastrostomy when patient status improves - continue current management Further recs as per Dr. Pasquale Arango PGY1 surgery pager: [phone]
[2018-02-09] MEDS: ACYCLOVIR IV SCH ×2 (08:07→20:13)
[2018-02-09] MEDS: WATER IV SCH ×2 (08:07→20:13)
[2018-02-09] MEDS: DEXTROSE 5% IV SCH ×2 (08:07→20:13)
[2018-02-09] MEDS: (Lantus) Insulin Glargine, Recombinant SC SCH ×2 (08:30→19:04)
--- NOTE | 2018-02-09 08:58 | RAD ---
HISTORY: post intubation COMPARISON: 02/08/2018 at 2:23 p.m. FINDINGS: The endotracheal tube terminates 10 mm proximal to the rianna. The nasogastric tube terminates in the stomach. LUNGS: There is persistent discoid atelectasis in the right mid lung. The left lung is clear. PLEURA: No significant pleural effusion identified, no pneumothorax apparent. CARDIOVASCULAR: There is mild cardiomegaly. Status post CABG with OSSEOUS STRUCTURES: No significant abnormalities. VISUALIZED UPPER ABDOMEN: Normal. OTHER FINDINGS: None. IMPRESSION: Endotracheal tube terminates 10 mm proximal to the rianna. No other significant interval change.
[2018-02-09] MEDS ORDERED: Insulin Human Regular 100 UNIT in Sodium Chloride 0.9% 99 ML IV PRN (09:00)
--- NOTE | 2018-02-09 09:00 | CP.CCUPN ---
<Amaya Castañeda - Last Filed: 02/09/18 12:31> CCU Subjective - Physician Review Subjective (Free Text): 02/09/18 09:00 Patient seen and examined at bedside. [employer] was called yesterday for desaturation in the low 80s. Patient was intubated and subsequently transferred to the ICU. 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 Patient currently is on heparin drip. CCU Objective - Vital Signs / Intake & Output Vital Signs (Last 4 hours): Vital Signs Temp Pulse Resp BP Pulse Ox 02/09/18 08:00 98.8 F 88 11 L 100 02/09/18 07:58 90 16 127/76 100 02/09/18 07:00 87 16 100 02/09/18 06:58 89 15 104/64 100 02/09/18 06:00 93 H 16 100 02/09/18 05:58 92 H 16 107/62 100 Intake and Output (Last 8hrs): Intake & Output 02/08/18 02/09/18 02/09/18 22:59 06:59 14:59 Intake Total 1666.7 1491.9 513.9 Output Total 1100 730 150 Balance 566.7 761.9 363.9 Weight 92.334 kg Intake: IV 50 Intake, IV Amount 1666.7 1441.9 513.9 Right Antecubital 375 1125 250 Right Forearm 775 16.7 Right Wrist 16.7 100.2 13.9 right ac 500 200 250 Oral 0 Output: Urine 1100 730 150 2-way Urethral 1100 730 150 Other: # Bowel Movements 0 0 - Physical Exam Head: Positive for: Atraumatic, Normocephalic Pupils: Positive for: PERRL Conjunctiva: Positive for: Normal Mouth: Positive for: Moist Mucous Membranes, Other (ETT) Neck: Positive for: Normal Range of Motion Respiratory/Chest: Positive for: Clear to Auscultation, Tachypneic. Negative for: Respiratory Distress Cardiovascular: Positive for: Regular Rate and Rhythm, Normal S1, S2. Negative for: Tachycardic Abdomen: Positive for: Normal Bowel Sounds, Other (Obese). Negative for: Tenderness, Distention, Peritoneal Signs Lower Extremity: Positive for: Normal Inspection Neurological: Positive for: Other (Moves all extremities) Skin: Positive for: Warm, Dry Psychiatric: Positive for: Alert - Medications Active Medications: Active Medications Generic Name Dose Route Start Last Admin Trade Name Freq PRN Reason Stop Dose Admin Acetaminophen 650 mg 01/19/18 00:50 02/05/18 20:48 Tylenol 650mg/20.3ml Solution Ud NG 650 mg Q6 PRN Administration GIVE FOR TEMP. 100*F OR ABOVE Albuterol/Ipratropium 3 ml 01/26/18 20:00 02/09/18 07:57 Duoneb 3 Mg/0.5 Mg (3 Ml) Ud INH 3 ml RQ6 SHINE Administration Aspirin 81 mg 01/17/18 10:00 02/08/18 10:37 Aspirin Chewable PO Not Given DAILY SHINE Carvedilol 12.5 mg 01/22/18 09:07 02/08/18 18:00 Coreg PO Not Given BID SHINE Hydralazine HCl 100 mg 02/03/18 00:29 02/09/18 05:50 Apresoline PO Not Given Q8 SHINE Dextrose 1,000 mls @ 125 mls/hr 02/08/18 10:30 02/09/18 03:43 Dextrose 5% In Water 1000 Ml IV 125 mls/hr .Q8H SHINE Administration Levetiracetam 500 mg/ Dextrose 55 mls @ 420 mls/hr 02/08/18 22:00 02/08/18 22 :08 IVPB 420 mls/hr Q12H SHINE Administration Vancomycin HCl 1 gm/ Dextrose 250 mls @ 166.7 mls/hr 02/08/18 19:30 02/08/18 21:50 IVPB 166.7 mls/hr Q48H SHINE Administration Protocol Cefepime HCl 2 gm in 100 mls @ 200 mls/hr 02/08/18 19:00 02/09/18 06:17 Maxipime Iv 2 Gm Premix IVPB 02/13/18 19:01 200 mls/hr Q12H SHINE Administration Protocol Acyclovir 750 mg/ Dextrose 250 mls @ 100 mls/hr 02/08/18 20:00 02/09/18 08:07 IV 100 mls/hr Q12H SHINE Administration Protocol Heparin Sodium/Sodium Chloride 25,000 units in 250 mls @ 0 mls/hr 02/08/18 20: 54 02/09/18 06:38 Heparin 98192 Units/250ml 1/2 Normal Saline IV 13.9 mls/hr .Q0M PRN Titration PROTOCOL Protocol Per Protocol Insulin Human Regular 100 unit 100 mls @ 2 mls/hr 02/09/18 09:00 / Sodium Chloride IV .Q24H PRN PER PROTOCOL Protocol Insulin Glargine 20 unit 02/09/18 08:00 Lantus SC Q12H SHINE Pantoprazole Sodium 40 mg 01/21/18 12:00 02/08/18 10:38 Protonix Susp PO Not Given 1000 SHINE Tamsulosin HCl 0.4 mg 01/30/18 20:00 02/08/18 10:38 Flomax PO Not Given DAILY SHINE - Patient Studies Lab Studies: Lab Studies 02/09/18 02/09/18 02/09/18 Range/Units 05:26 04:45 04:45 WBC 6.9 (4.8-10.8) K/uL RBC 3.73 L (4.40-5.90) Mil/uL Hgb 11.7 L (12.0-18.0) g/dL Hct 36.2 (35.0-51.0) % MCV 97.2 H (80.0-94.0) fL MCH 31.4 H (27.0-31.0) pg MCHC 32.3 L (33.0-37.0) g/dL RDW 13.3 (11.5-14.5) % Plt Count 84 L (130-400) K/uL MPV 11.7 (7.2-11.7) fL Neut % (Auto) 67.5 (50.0-75.0) % Lymph % (Auto) 25.5 (20.0-40.0) % [place] % (Auto) 5.6 (0.0-10.0) % Eos % (Auto) 1.0 (0.0-4.0) % Baso % (Auto) 0.4 (0.0-2.0) % Neut # (Auto) 4.7 (1.8-7.0) K/uL Lymph # (Auto) 1.8 (1.0-4.3) K/uL [place] # (Auto) 0.4 (0.0-0.8) K/uL Eos # (Auto) 0.1 (0.0-0.7) K/uL Baso # (Auto) 0.0 (0.0-0.2) K/uL Differential Comment APTT (21-34) SECONDS Puncture Site Rb pCO2 41 (35-45) mm/Hg pO2 90 (80-100) mm/Hg HCO3 29.9 H (21-28) mmol/L ABG pH 7.48 H (7.35-7.45) ABG Total CO2 31.8 H (22-28) mmol/L ABG O2 Saturation 98.6 H (95-98) % ABG Base Excess 6.4 H (-2.0-3.0) mmol/L ABG Hemoglobin 11.1 L (11.7-17.4) g/dL ABG Carboxyhemoglobin 2.1 H (0.5-1.5) % POC ABG HHb (Measured) 1.4 (0.0-5.0) % ABG Methemoglobin 1.0 (0.0-3.0) % Jamey Test Na ABG Potassium (3.6-5.2) mmol/L A-a O2 Difference 144.0 mm/Hg Respiratory Index 1.6 Hgb O2 Saturation 95.6 (95.0-98.0) % Glucose (75-110) mg/dl Lactate (0.7-2.1) mmol/L Vent Mode Prvc Mechanical Rate 16 FiO2 40.0 % Tidal Volume 500 PEEP 5 Sodium 152 H (132-148) mmol/L Potassium 3.6 (3.6-5.2) mmol/L Chloride 113 H (98-107) mmol/L Carbon Dioxide 28 (22-30) mmol/L Anion Gap 15 (10-20) BUN 51 H (9-20) mg/dL Creatinine 1.8 H (0.8-1.5) mg/dL Est GFR ( Amer) 46 Est GFR (Non-Af Amer) 38 POC Glucose (mg/dL) (65-110) mg/dL Random Glucose 445 H* D (75-110) mg/dL Serum Osmolality (272-300) mosm/kg Calcium 8.0 L (8.6-10.4) mg/dl Phosphorus (2.5-4.5) mg/dL Magnesium (1.6-2.3) mg/dL Total Bilirubin 0.8 (0.2-1.3) mg/dL AST 26 (17-59) U/L ALT 35 (21-72) U/L Alkaline Phosphatase 64 (38-126) U/L Total Creatine Kinase 60 (55-170) U/L CK-MB (Mass) 0.99 (0.0-3.38) ng/mL Troponin I 0.0810 (0.00-0.120) ng/mL Total Protein 5.3 L (6.3-8.3) g/dL Albumin 2.6 L (3.5-5.0) g/dL Globulin 2.8 (2.2-3.9) gm/dL Albumin/Globulin Ratio 0.9 L (1.0-2.1) Procalcitonin (0.19-0.49) NG/ML Arterial Blood Potassium (3.6-5.2) mmol/L Urine Color (YELLOW) Urine Clarity (Clear) Urine pH (5.0-8.0) Ur Specific [place] (1.003-1.030) Urine Protein (NEGATIVE) mg/dL Urine Glucose (UA) (Normal) mg/dL Urine Ketones (NEGATIVE) mg/dL Urine Blood (NEGATIVE) Urine Nitrate (NEGATIVE) Urine Bilirubin (NEGATIVE) Urine Urobilinogen (0.2-1.0) mg/dL Ur Leukocyte Esterase (Negative) Minh/uL Urine WBC (Auto) (0-5) /hpf Urine RBC (Auto) (0-3) /hpf Ur Squamous Epith Cells (0-5) /hpf Granular Casts (Auto) (0-1) /lpf Urine Yeast (Budding) (NEGATIVE) /hpf Urine Osmolality (300-1000) mosm/kg Ur Random Potassium mmol/L Levetiracetam mcg/mL 02/09/18 02/09/18 02/09/18 Range/Units 04:45 04:30 00:31 WBC (4.8-10.8) K/uL RBC (4.40-5.90) Mil/uL Hgb (12.0-18.0) g/dL Hct (35.0-51.0) % MCV (80.0-94.0) fL MCH (27.0-31.0) pg MCHC (33.0-37.0) g/dL RDW (11.5-14.5) % Plt Count (130-400) K/uL MPV (7.2-11.7) fL Neut % (Auto) (50.0-75.0) % Lymph % (Auto) (20.0-40.0) % [place] % (Auto) (0.0-10.0) % Eos % (Auto) (0.0-4.0) % Baso % (Auto) (0.0-2.0) % Neut # (Auto) (1.8-7.0) K/uL Lymph # (Auto) (1.0-4.3) K/uL [place] # (Auto) (0.0-0.8) K/uL Eos # (Auto) (0.0-0.7) K/uL Baso # (Auto) (0.0-0.2) K/uL Differential Comment APTT 177 H* (21-34) SECONDS Puncture Site pCO2 (35-45) mm/Hg pO2 (80-100) mm/Hg HCO3 (21-28) mmol/L ABG pH (7.35-7.45) ABG Total CO2 (22-28) mmol/L ABG O2 Saturation (95-98) % ABG Base Excess (-2.0-3.0) mmol/L ABG Hemoglobin (11.7-17.4) g/dL ABG Carboxyhemoglobin (0.5-1.5) % POC ABG HHb (Measured) (0.0-5.0) % ABG Methemoglobin (0.0-3.0) % Jamey Test ABG Potassium (3.6-5.2) mmol/L A-a O2 Difference mm/Hg Respiratory Index Hgb O2 Saturation (95.0-98.0) % Glucose (75-110) mg/dl Lactate (0.7-2.1) mmol/L Vent Mode Mechanical Rate FiO2 % Tidal Volume PEEP Sodium (132-148) mmol/L Potassium (3.6-5.2) mmol/L Chloride (98-107) mmol/L Carbon Dioxide (22-30) mmol/L Anion Gap (10-20) BUN (9-20) mg/dL Creatinine (0.8-1.5) mg/dL Est GFR ( Amer) Est GFR (Non-Af Amer) POC Glucose (mg/dL) 403 H* 370 H (65-110) mg/dL Random Glucose (75-110) mg/dL Serum Osmolality (272-300) mosm/kg Calcium (8.6-10.4) mg/dl Phosphorus (2.5-4.5) mg/dL Magnesium (1.6-2.3) mg/dL Total Bilirubin (0.2-1.3) mg/dL AST (17-59) U/L ALT (21-72) U/L Alkaline Phosphatase (38-126) U/L Total Creatine Kinase (55-170) U/L CK-MB (Mass) (0.0-3.38) ng/mL Troponin I (0.00-0.120) ng/mL Total Protein (6.3-8.3) g/dL Albumin (3.5-5.0) g/dL Globulin (2.2-3.9) gm/dL Albumin/Globulin Ratio (1.0-2.1) Procalcitonin (0.19-0.49) NG/ML Arterial Blood Potassium (3.6-5.2) mmol/L Urine Color (YELLOW) Urine Clarity (Clear) Urine pH (5.0-8.0) Ur Specific [place] (1.003-1.030) Urine Protein (NEGATIVE) mg/dL Urine Glucose (UA) (Normal) mg/dL Urine Ketones (NEGATIVE) mg/dL Urine Blood (NEGATIVE) Urine Nitrate (NEGATIVE) Urine Bilirubin (NEGATIVE) Urine Urobilinogen (0.2-1.0) mg/dL Ur Leukocyte Esterase (Negative) Minh/uL Urine WBC (Auto) (0-5) /hpf Urine RBC (Auto) (0-3) /hpf Ur Squamous Epith Cells (0-5) /hpf Granular Casts (Auto) (0-1) /lpf Urine Yeast (Budding) (NEGATIVE) /hpf Urine Osmolality (300-1000) mosm/kg Ur Random Potassium mmol/L Levetiracetam mcg/mL 02/09/18 02/08/18 02/08/18 Range/Units 00:28 20:47 20:47 WBC 6.2 (4.8-10.8) K/uL RBC 3.78 L (4.40-5.90) Mil/uL Hgb 11.9 L (12.0-18.0) g/dL Hct 36.2 (35.0-51.0) % MCV 95.8 H (80.0-94.0) fL MCH 31.4 H (27.0-31.0) pg MCHC 32.8 L (33.0-37.0) g/dL RDW 13.2 (11.5-14.5) % Plt Count 98 L D (130-400) K/uL MPV 11.7 (7.2-11.7) fL Neut % (Auto) 67.6 (50.0-75.0) % Lymph % (Auto) 24.5 (20.0-40.0) % [place] % (Auto) 7.0 (0.0-10.0) % Eos % (Auto) 0.4 (0.0-4.0) % Baso % (Auto) 0.5 (0.0-2.0) % Neut # (Auto) 4.2 (1.8-7.0) K/uL Lymph # (Auto) 1.5 (1.0-4.3) K/uL [place] # (Auto) 0.4 (0.0-0.8) K/uL Eos # (Auto) 0.0 (0.0-0.7) K/uL Baso # (Auto) 0.0 (0.0-0.2) K/uL Differential Comment APTT (21-34) SECONDS Puncture Site pCO2 (35-45) mm/Hg pO2 (80-100) mm/Hg HCO3 (21-28) mmol/L ABG pH (7.35-7.45) ABG Total CO2 (22-28) mmol/L ABG O2 Saturation (95-98) % ABG Base Excess (-2.0-3.0) mmol/L ABG Hemoglobin (11.7-17.4) g/dL ABG Carboxyhemoglobin (0.5-1.5) % POC ABG HHb (Measured) (0.0-5.0) % ABG Methemoglobin (0.0-3.0) % Jamey Test ABG Potassium (3.6-5.2) mmol/L A-a O2 Difference mm/Hg Respiratory Index Hgb O2 Saturation (95.0-98.0) % Glucose (75-110) mg/dl Lactate (0.7-2.1) mmol/L Vent Mode Mechanical Rate FiO2 % Tidal Volume PEEP Sodium 156 H (132-148) mmol/L Potassium 3.9 (3.6-5.2) mmol/L Chloride 117 H (98-107) mmol/L Carbon Dioxide 29 (22-30) mmol/L Anion Gap 14 (10-20) BUN 47 H (9-20) mg/dL Creatinine 1.8 H (0.8-1.5) mg/dL Est GFR ( Amer) 46 Est GFR (Non-Af Amer) 38 POC Glucose (mg/dL) 415 H* (65-110) mg/dL Random Glucose 331 H (75-110) mg/dL Serum Osmolality (272-300) mosm/kg Calcium 8.4 L (8.6-10.4) mg/dl Phosphorus 4.4 (2.5-4.5) mg/dL Magnesium 2.4 H (1.6-2.3) mg/dL Total Bilirubin 0.7 (0.2-1.3) mg/dL AST 22 (17-59) U/L ALT 30 (21-72) U/L Alkaline Phosphatase 61 (38-126) U/L Total Creatine Kinase (55-170) U/L CK-MB (Mass) (0.0-3.38) ng/mL Troponin I (0.00-0.120) ng/mL Total Protein 5.6 L (6.3-8.3) g/dL Albumin 2.7 L (3.5-5.0) g/dL Globulin 2.9 (2.2-3.9) gm/dL Albumin/Globulin Ratio 0.9 L (1.0-2.1) Procalcitonin (0.19-0.49) NG/ML Arterial Blood Potassium (3.6-5.2) mmol/L Urine Color (YELLOW) Urine Clarity (Clear) Urine pH (5.0-8.0) Ur Specific [place] (1.003-1.030) Urine Protein (NEGATIVE) mg/dL Urine Glucose (UA) (Normal) mg/dL Urine Ketones (NEGATIVE) mg/dL Urine Blood (NEGATIVE) Urine Nitrate (NEGATIVE) Urine Bilirubin (NEGATIVE) Urine Urobilinogen (0.2-1.0) mg/dL Ur Leukocyte Esterase (Negative) Minh/uL Urine WBC (Auto) (0-5) /hpf Urine RBC (Auto) (0-3) /hpf Ur Squamous Epith Cells (0-5) /hpf Granular Casts (Auto) (0-1) /lpf Urine Yeast (Budding) (NEGATIVE) /hpf Urine Osmolality (300-1000) mosm/kg Ur Random Potassium mmol/L Levetiracetam mcg/mL 02/08/18 02/08/18 02/08/18 Range/Units 20:47 20:30 19:02 WBC (4.8-10.8) K/uL RBC (4.40-5.90) Mil/uL Hgb (12.0-18.0) g/dL Hct (35.0-51.0) % MCV (80.0-94.0) fL MCH (27.0-31.0) pg MCHC (33.0-37.0) g/dL RDW (11.5-14.5) % Plt Count (130-400) K/uL MPV (7.2-11.7) fL Neut % (Auto) (50.0-75.0) % Lymph % (Auto) (20.0-40.0) % [place] % (Auto) (0.0-10.0) % Eos % (Auto) (0.0-4.0) % Baso % (Auto) (0.0-2.0) % Neut # (Auto) (1.8-7.0) K/uL Lymph # (Auto) (1.0-4.3) K/uL [place] # (Auto) (0.0-0.8) K/uL Eos # (Auto) (0.0-0.7) K/uL Baso # (Auto) (0.0-0.2) K/uL Differential Comment APTT (21-34) SECONDS Puncture Site Rba pCO2 41 (35-45) mm/Hg pO2 282 H (80-100) mm/Hg HCO3 30.6 H (21-28) mmol/L ABG pH 7.49 H (7.35-7.45) ABG Total CO2 32.5 H (22-28) mmol/L ABG O2 Saturation 99.2 H (95-98) % ABG Base Excess 7.2 H (-2.0-3.0) mmol/L ABG Hemoglobin (11.7-17.4) g/dL ABG Carboxyhemoglobin (0.5-1.5) % POC ABG HHb (Measured) (0.0-5.0) % ABG Methemoglobin (0.0-3.0) % Jamey Test Pos ABG Potassium 3.7 (3.6-5.2) mmol/L A-a O2 Difference 237.0 mm/Hg Respiratory Index 0.8 Hgb O2 Saturation (95.0-98.0) % Glucose 344 H (75-110) mg/dl Lactate 1.6 (0.7-2.1) mmol/L Vent Mode Prvc Mechanical Rate 16 FiO2 80.0 % Tidal Volume 500 PEEP 5 Sodium 158.0 H (132-148) mmol/L Potassium (3.6-5.2) mmol/L Chloride 121.0 H (98-107) mmol/L Carbon Dioxide (22-30) mmol/L Anion Gap (10-20) BUN (9-20) mg/dL Creatinine (0.8-1.5) mg/dL Est GFR ( Amer) Est GFR (Non-Af Amer) POC Glucose (mg/dL) 350 H (65-110) mg/dL Random Glucose (75-110) mg/dL Serum Osmolality (272-300) mosm/kg Calcium (8.6-10.4) mg/dl Phosphorus (2.5-4.5) mg/dL Magnesium (1.6-2.3) mg/dL Total Bilirubin (0.2-1.3) mg/dL AST (17-59) U/L ALT (21-72) U/L Alkaline Phosphatase (38-126) U/L Total Creatine Kinase (55-170) U/L CK-MB (Mass) (0.0-3.38) ng/mL Troponin I (0.00-0.120) ng/mL Total Protein (6.3-8.3) g/dL Albumin (3.5-5.0) g/dL Globulin (2.2-3.9) gm/dL Albumin/Globulin Ratio (1.0-2.1) Procalcitonin 0.08 L (0.19-0.49) NG/ML Arterial Blood Potassium 3.7 (3.6-5.2) mmol/L Urine Color (YELLOW) Urine Clarity (Clear) Urine pH (5.0-8.0) Ur Specific [place] (1.003-1.030) Urine Protein (NEGATIVE) mg/dL Urine Glucose (UA) (Normal) mg/dL Urine Ketones (NEGATIVE) mg/dL Urine Blood (NEGATIVE) Urine Nitrate (NEGATIVE) Urine Bilirubin (NEGATIVE) Urine Urobilinogen (0.2-1.0) mg/dL Ur Leukocyte Esterase (Negative) Minh/uL Urine WBC (Auto) (0-5) /hpf Urine RBC (Auto) (0-3) /hpf Ur Squamous Epith Cells (0-5) /hpf Granular Casts (Auto) (0-1) /lpf Urine Yeast (Budding) (NEGATIVE) /hpf Urine Osmolality (300-1000) mosm/kg Ur Random Potassium mmol/L Levetiracetam mcg/mL 02/08/18 02/08/18 02/08/18 Range/Units 18:00 17:39 17:39 WBC (4.8-10.8) K/uL RBC (4.40-5.90) Mil/uL Hgb (12.0-18.0) g/dL Hct (35.0-51.0) % MCV (80.0-94.0) fL MCH (27.0-31.0) pg MCHC (33.0-37.0) g/dL RDW (11.5-14.5) % Plt Count (130-400) K/uL MPV (7.2-11.7) fL Neut % (Auto) (50.0-75.0) % Lymph % (Auto) (20.0-40.0) % [place] % (Auto) (0.0-10.0) % Eos % (Auto) (0.0-4.0) % Baso % (Auto) (0.0-2.0) % Neut # (Auto) (1.8-7.0) K/uL Lymph # (Auto) (1.0-4.3) K/uL [place] # (Auto) (0.0-0.8) K/uL Eos # (Auto) (0.0-0.7) K/uL Baso # (Auto) (0.0-0.2) K/uL Differential Comment APTT (21-34) SECONDS Puncture Site pCO2 (35-45) mm/Hg pO2 (80-100) mm/Hg HCO3 (21-28) mmol/L ABG pH (7.35-7.45) ABG Total CO2 (22-28) mmol/L ABG O2 Saturation (95-98) % ABG Base Excess (-2.0-3.0) mmol/L ABG Hemoglobin (11.7-17.4) g/dL ABG Carboxyhemoglobin (0.5-1.5) % POC ABG HHb (Measured) (0.0-5.0) % ABG Methemoglobin (0.0-3.0) % Jamey Test ABG Potassium (3.6-5.2) mmol/L A-a O2 Difference mm/Hg Respiratory Index Hgb O2 Saturation (95.0-98.0) % Glucose (75-110) mg/dl Lactate (0.7-2.1) mmol/L Vent Mode Mechanical Rate FiO2 % Tidal Volume PEEP Sodium (132-148) mmol/L Potassium (3.6-5.2) mmol/L Chloride (98-107) mmol/L Carbon Dioxide (22-30) mmol/L Anion Gap (10-20) BUN (9-20) mg/dL Creatinine 1.7 H (0.8-1.5) mg/dL Est GFR ( Amer) 49 Est GFR (Non-Af Amer) 40 POC Glucose (mg/dL) 345 H (65-110) mg/dL Random Glucose (75-110) mg/dL Serum Osmolality 357 H (272-300) mosm/kg Calcium (8.6-10.4) mg/dl Phosphorus (2.5-4.5) mg/dL Magnesium (1.6-2.3) mg/dL Total Bilirubin (0.2-1.3) mg/dL AST (17-59) U/L ALT (21-72) U/L Alkaline Phosphatase (38-126) U/L Total Creatine Kinase (55-170) U/L CK-MB (Mass) (0.0-3.38) ng/mL Troponin I (0.00-0.120) ng/mL Total Protein (6.3-8.3) g/dL Albumin (3.5-5.0) g/dL Globulin (2.2-3.9) gm/dL Albumin/Globulin Ratio (1.0-2.1) Procalcitonin (0.19-0.49) NG/ML Arterial Blood Potassium (3.6-5.2) mmol/L Urine Color (YELLOW) Urine Clarity (Clear) Urine pH (5.0-8.0) Ur Specific [place] (1.003-1.030) Urine Protein (NEGATIVE) mg/dL Urine Glucose (UA) (Normal) mg/dL Urine Ketones (NEGATIVE) mg/dL Urine Blood (NEGATIVE) Urine Nitrate (NEGATIVE) Urine Bilirubin (NEGATIVE) Urine Urobilinogen (0.2-1.0) mg/dL Ur Leukocyte Esterase (Negative) Minh/uL Urine WBC (Auto) (0-5) /hpf Urine RBC (Auto) (0-3) /hpf Ur Squamous Epith Cells (0-5) /hpf Granular Casts (Auto) (0-1) /lpf Urine Yeast (Budding) (NEGATIVE) /hpf Urine Osmolality (300-1000) mosm/kg Ur Random Potassium mmol/L Levetiracetam mcg/mL 02/08/18 02/08/18 02/08/18 Range/Units 17:25 16:23 16:23 WBC (4.8-10.8) K/uL RBC (4.40-5.90) Mil/uL Hgb (12.0-18.0) g/dL Hct (35.0-51.0) % MCV (80.0-94.0) fL MCH (27.0-31.0) pg MCHC (33.0-37.0) g/dL RDW (11.5-14.5) % Plt Count (130-400) K/uL MPV (7.2-11.7) fL Neut % (Auto) (50.0-75.0) % Lymph % (Auto) (20.0-40.0) % [place] % (Auto) (0.0-10.0) % Eos % (Auto) (0.0-4.0) % Baso % (Auto) (0.0-2.0) % Neut # (Auto) (1.8-7.0) K/uL Lymph # (Auto) (1.0-4.3) K/uL [place] # (Auto) (0.0-0.8) K/uL Eos # (Auto) (0.0-0.7) K/uL Baso # (Auto) (0.0-0.2) K/uL Differential Comment APTT (21-34) SECONDS Puncture Site pCO2 (35-45) mm/Hg pO2 (80-100) mm/Hg HCO3 (21-28) mmol/L ABG pH (7.35-7.45) ABG Total CO2 (22-28) mmol/L ABG O2 Saturation (95-98) % ABG Base Excess (-2.0-3.0) mmol/L ABG Hemoglobin (11.7-17.4) g/dL ABG Carboxyhemoglobin (0.5-1.5) % POC ABG HHb (Measured) (0.0-5.0) % ABG Methemoglobin (0.0-3.0) % Ajmey Test ABG Potassium (3.6-5.2) mmol/L A-a O2 Difference mm/Hg Respiratory Index Hgb O2 Saturation (95.0-98.0) % Glucose (75-110) mg/dl Lactate (0.7-2.1) mmol/L Vent Mode Mechanical Rate FiO2 % Tidal Volume PEEP Sodium (132-148) mmol/L Potassium (3.6-5.2) mmol/L Chloride (98-107) mmol/L Carbon Dioxide (22-30) mmol/L Anion Gap (10-20) BUN (9-20) mg/dL Creatinine (0.8-1.5) mg/dL Est GFR ( Amer) Est GFR (Non-Af Amer) POC Glucose (mg/dL) (65-110) mg/dL Random Glucose (75-110) mg/dL Serum Osmolality (272-300) mosm/kg Calcium (8.6-10.4) mg/dl Phosphorus (2.5-4.5) mg/dL Magnesium (1.6-2.3) mg/dL Total Bilirubin (0.2-1.3) mg/dL AST (17-59) U/L ALT (21-72) U/L Alkaline Phosphatase (38-126) U/L Total Creatine Kinase (55-170) U/L CK-MB (Mass) (0.0-3.38) ng/mL Troponin I (0.00-0.120) ng/mL Total Protein (6.3-8.3) g/dL Albumin (3.5-5.0) g/dL Globulin (2.2-3.9) gm/dL Albumin/Globulin Ratio (1.0-2.1) Procalcitonin (0.19-0.49) NG/ML Arterial Blood Potassium (3.6-5.2) mmol/L Urine Color Yellow (YELLOW) Urine Clarity Hazy (Clear) Urine pH 5.0 (5.0-8.0) Ur Specific [place] 1.027 (1.003-1.030) Urine Protein 2+ H (NEGATIVE) mg/dL Urine Glucose (UA) 3+ H (Normal) mg/dL Urine Ketones Negative (NEGATIVE) mg/dL Urine Blood Negative (NEGATIVE) Urine Nitrate Negative (NEGATIVE) Urine Bilirubin Negative (NEGATIVE) Urine Urobilinogen Normal (0.2-1.0) mg/dL Ur Leukocyte Esterase Neg (Negative) Minh/uL Urine WBC (Auto) 2 (0-5) /hpf Urine RBC (Auto) 5 H (0-3) /hpf Ur Squamous Epith Cells 1 (0-5) /hpf Granular Casts (Auto) 0-2 (0-1) /lpf Urine Yeast (Budding) Occ H (NEGATIVE) /hpf Urine Osmolality 764 (300-1000) mosm/kg Ur Random Potassium 63.3 mmol/L Levetiracetam mcg/mL 02/08/18 02/08/18 02/05/18 Range/Units 13:53 11:00 13:54 WBC (4.8-10.8) K/uL RBC (4.40-5.90) Mil/uL Hgb (12.0-18.0) g/dL Hct (35.0-51.0) % MCV (80.0-94.0) fL MCH (27.0-31.0) pg MCHC (33.0-37.0) g/dL RDW (11.5-14.5) % Plt Count (130-400) K/uL MPV (7.2-11.7) fL Neut % (Auto) (50.0-75.0) % Lymph % (Auto) (20.0-40.0) % [place] % (Auto) (0.0-10.0) % Eos % (Auto) (0.0-4.0) % Baso % (Auto) (0.0-2.0) % Neut # (Auto) (1.8-7.0) K/uL Lymph # (Auto) (1.0-4.3) K/uL [place] # (Auto) (0.0-0.8) K/uL Eos # (Auto) (0.0-0.7) K/uL Baso # (Auto) (0.0-0.2) K/uL Differential Comment APTT (21-34) SECONDS Puncture Site pCO2 (35-45) mm/Hg pO2 (80-100) mm/Hg HCO3 (21-28) mmol/L ABG pH (7.35-7.45) ABG Total CO2 (22-28) mmol/L ABG O2 Saturation (95-98) % ABG Base Excess (-2.0-3.0) mmol/L ABG Hemoglobin (11.7-17.4) g/dL ABG Carboxyhemoglobin (0.5-1.5) % POC ABG HHb (Measured) (0.0-5.0) % ABG Methemoglobin (0.0-3.0) % Jamey Test ABG Potassium (3.6-5.2) mmol/L A-a O2 Difference mm/Hg Respiratory Index Hgb O2 Saturation (95.0-98.0) % Glucose (75-110) mg/dl Lactate (0.7-2.1) mmol/L Vent Mode Mechanical Rate FiO2 % Tidal Volume PEEP Sodium 160 H* (132-148) mmol/L Potassium 4.1 (3.6-5.2) mmol/L Chloride 116 H (98-107) mmol/L Carbon Dioxide 32 H (22-30) mmol/L Anion Gap 16 (10-20) BUN 45 H (9-20) mg/dL Creatinine 1.6 H (0.8-1.5) mg/dL Est GFR ( Amer) 52 Est GFR (Non-Af Amer) 43 POC Glucose (mg/dL) 364 H (65-110) mg/dL Random Glucose 394 H (75-110) mg/dL Serum Osmolality (272-300) mosm/kg Calcium 8.7 (8.6-10.4) mg/dl Phosphorus (2.5-4.5) mg/dL Magnesium (1.6-2.3) mg/dL Total Bilirubin 0.8 (0.2-1.3) mg/dL AST 25 (17-59) U/L ALT 36 (21-72) U/L Alkaline Phosphatase 76 (38-126) U/L Total Creatine Kinase (55-170) U/L CK-MB (Mass) (0.0-3.38) ng/mL Troponin I (0.00-0.120) ng/mL Total Protein 6.4 (6.3-8.3) g/dL Albumin 3.2 L (3.5-5.0) g/dL Globulin 3.2 (2.2-3.9) gm/dL Albumin/Globulin Ratio 1.0 (1.0-2.1) Procalcitonin (0.19-0.49) NG/ML Arterial Blood Potassium (3.6-5.2) mmol/L Urine Color (YELLOW) Urine Clarity (Clear) Urine pH (5.0-8.0) Ur Specific [place] (1.003-1.030) Urine Protein (NEGATIVE) mg/dL Urine Glucose (UA) (Normal) mg/dL Urine Ketones (NEGATIVE) mg/dL Urine Blood (NEGATIVE) Urine Nitrate (NEGATIVE) Urine Bilirubin (NEGATIVE) Urine Urobilinogen (0.2-1.0) mg/dL Ur Leukocyte Esterase (Negative) Minh/uL Urine WBC (Auto) (0-5) /hpf Urine RBC (Auto) (0-3) /hpf Ur Squamous Epith Cells (0-5) /hpf Granular Casts (Auto) (0-1) /lpf Urine Yeast (Budding) (NEGATIVE) /hpf Urine Osmolality (300-1000) mosm/kg Ur Random Potassium mmol/L Levetiracetam 37.5 mcg/mL Laboratory Results - last 24 hr 02/05/18 02/08/18 02/08/18 13:54 11:00 13:53 WBC RBC Hgb Hct MCV MCH MCHC RDW Plt Count MPV Neut % (Auto) Lymph % (Auto) [place] % (Auto) Eos % (Auto) Baso % (Auto) Neut # (Auto) Lymph # (Auto) [place] # (Auto) Eos # (Auto) Baso # (Auto) Differential Comment APTT Puncture Site pCO2 pO2 HCO3 ABG pH ABG Total CO2 ABG O2 Saturation ABG Base Excess ABG Hemoglobin ABG Carboxyhemoglobin POC ABG HHb (Measured) ABG Methemoglobin Jamey Test ABG Potassium A-a O2 Difference Respiratory Index Hgb O2 Saturation Glucose Lactate Vent Mode Mechanical Rate FiO2 Tidal Volume PEEP Sodium 160 H* Potassium 4.1 Chloride 116 H Carbon Dioxide 32 H Anion Gap 16 BUN 45 H Creatinine 1.6 H Est GFR ( Amer) 52 Est GFR (Non-Af Amer) 43 POC Glucose (mg/dL) 364 H Random Glucose 394 H Serum Osmolality Calcium 8.7 Phosphorus Magnesium Total Bilirubin 0.8 AST 25 ALT 36 Alkaline Phosphatase 76 Total Creatine Kinase CK-MB (Mass) Troponin I Total Protein 6.4 Albumin 3.2 L Globulin 3.2 Albumin/Globulin Ratio 1.0 Procalcitonin Arterial Blood Potassium Urine Color Urine Clarity Urine pH Ur Specific [place] Urine Protein Urine Glucose (UA) Urine Ketones Urine Blood Urine Nitrate Urine Bilirubin Urine Urobilinogen Ur Leukocyte Esterase Urine WBC (Auto) Urine RBC (Auto) Ur Squamous Epith Cells Granular Casts (Auto) Urine Yeast (Budding) Urine Osmolality Ur Random Potassium Levetiracetam 37.5 02/08/18 02/08/18 02/08/18 16:23 16:23 17:25 WBC RBC Hgb Hct MCV MCH MCHC RDW Plt Count MPV Neut % (Auto) Lymph % (Auto) [place] % (Auto) Eos % (Auto) Baso % (Auto) Neut # (Auto) Lymph # (Auto) [place] # (Auto) Eos # (Auto) Baso # (Auto) Differential Comment APTT Puncture Site pCO2 pO2 HCO3 ABG pH ABG Total CO2 ABG O2 Saturation ABG Base Excess ABG Hemoglobin ABG Carboxyhemoglobin POC ABG HHb (Measured) ABG Methemoglobin Jamey Test ABG Potassium A-a O2 Difference Respiratory Index Hgb O2 Saturation Glucose Lactate Vent Mode Mechanical Rate FiO2 Tidal Volume PEEP Sodium Potassium Chloride Carbon Dioxide Anion Gap BUN Creatinine Est GFR ( Amer) Est GFR (Non-Af Amer) POC Glucose (mg/dL) Random Glucose Serum Osmolality Calcium Phosphorus Magnesium Total Bilirubin AST ALT Alkaline Phosphatase Total Creatine Kinase CK-MB (Mass) Troponin I Total Protein Albumin Globulin Albumin/Globulin Ratio Procalcitonin Arterial Blood Potassium Urine Color Yellow Urine Clarity Hazy Urine pH 5.0 Ur Specific [place] 1.027 Urine Protein 2+ H Urine Glucose (UA) 3+ H Urine Ketones Negative Urine Blood Negative Urine Nitrate Negative Urine Bilirubin Negative Urine Urobilinogen Normal Ur Leukocyte Esterase Neg Urine WBC (Auto) 2 Urine RBC (Auto) 5 H Ur Squamous Epith Cells 1 Granular Casts (Auto) 0-2 Urine Yeast (Budding) Occ H Urine Osmolality 764 Ur Random Potassium 63.3 Levetiracetam 02/08/18 02/08/18 02/08/18 17:39 17:39 18:00 WBC RBC Hgb Hct MCV MCH MCHC RDW Plt Count MPV Neut % (Auto) Lymph % (Auto) [place] % (Auto) Eos % (Auto) Baso % (Auto) Neut # (Auto) Lymph # (Auto) [place] # (Auto) Eos # (Auto) Baso # (Auto) Differential Comment APTT Puncture Site pCO2 pO2 HCO3 ABG pH ABG Total CO2 ABG O2 Saturation ABG Base Excess ABG Hemoglobin ABG Carboxyhemoglobin POC ABG HHb (Measured) ABG Methemoglobin Jamey Test ABG Potassium A-a O2 Difference Respiratory Index Hgb O2 Saturation Glucose Lactate Vent Mode Mechanical Rate FiO2 Tidal Volume PEEP Sodium Potassium Chloride Carbon Dioxide Anion Gap BUN Creatinine 1.7 H Est GFR ( Amer) 49 Est GFR (Non-Af Amer) 40 POC Glucose (mg/dL) 345 H Random Glucose Serum Osmolality 357 H Calcium Phosphorus Magnesium Total Bilirubin AST ALT Alkaline Phosphatase Total Creatine Kinase CK-MB (Mass) Troponin I Total Protein Albumin Globulin Albumin/Globulin Ratio Procalcitonin Arterial Blood Potassium Urine Color Urine Clarity Urine pH Ur Specific [place] Urine Protein Urine Glucose (UA) Urine Ketones Urine Blood Urine Nitrate Urine Bilirubin Urine Urobilinogen Ur Leukocyte Esterase Urine WBC (Auto) Urine RBC (Auto) Ur Squamous Epith Cells Granular Casts (Auto) Urine Yeast (Budding) Urine Osmolality Ur Random Potassium Levetiracetam 02/08/18 02/08/18 02/08/18 19:02 20:30 20:47 WBC RBC Hgb Hct MCV MCH MCHC RDW Plt Count MPV Neut % (Auto) Lymph % (Auto) [place] % (Auto) Eos % (Auto) Baso % (Auto) Neut # (Auto) Lymph # (Auto) [place] # (Auto) Eos # (Auto) Baso # (Auto) Differential Comment APTT Puncture Site Rba pCO2 41 pO2 282 H HCO3 30.6 H ABG pH 7.49 H ABG Total CO2 32.5 H ABG O2 Saturation 99.2 H ABG Base Excess 7.2 H ABG Hemoglobin ABG Carboxyhemoglobin POC ABG HHb (Measured) ABG Methemoglobin Jamey Test Pos ABG Potassium 3.7 A-a O2 Difference 237.0 Respiratory Index 0.8 Hgb O2 Saturation Glucose 344 H Lactate 1.6 Vent Mode Prvc Mechanical Rate 16 FiO2 80.0 Tidal Volume 500 PEEP 5 Sodium 158.0 H Potassium Chloride 121.0 H Carbon Dioxide Anion Gap BUN Creatinine Est GFR ( Amer) Est GFR (Non-Af Amer) POC Glucose (mg/dL) 350 H Random Glucose Serum Osmolality Calcium Phosphorus Magnesium Total Bilirubin AST ALT Alkaline Phosphatase Total Creatine Kinase CK-MB (Mass) Troponin I Total Protein Albumin Globulin Albumin/Globulin Ratio Procalcitonin 0.08 L Arterial Blood Potassium 3.7 Urine Color Urine Clarity Urine pH Ur Specific [place] Urine Protein Urine Glucose (UA) Urine Ketones Urine Blood Urine Nitrate Urine Bilirubin Urine Urobilinogen Ur Leukocyte Esterase Urine WBC (Auto) Urine RBC (Auto) Ur Squamous Epith Cells Granular Casts (Auto) Urine Yeast (Budding) Urine Osmolality Ur Random Potassium Levetiracetam 02/08/18 02/08/18 02/09/18 20:47 20:47 00:28 WBC 6.2 RBC 3.78 L Hgb 11.9 L Hct 36.2 MCV 95.8 H MCH 31.4 H MCHC 32.8 L RDW 13.2 Plt Count 98 L D MPV 11.7 Neut % (Auto) 67.6 Lymph % (Auto) 24.5 [place] % (Auto) 7.0 Eos % (Auto) 0.4 Baso % (Auto) 0.5 Neut # (Auto) 4.2 Lymph # (Auto) 1.5 [place] # (Auto) 0.4 Eos # (Auto) 0.0 Baso # (Auto) 0.0 Differential Comment APTT Puncture Site pCO2 pO2 HCO3 ABG pH ABG Total CO2 ABG O2 Saturation ABG Base Excess ABG Hemoglobin ABG Carboxyhemoglobin POC ABG HHb (Measured) ABG Methemoglobin Jamey Test ABG Potassium A-a O2 Difference Respiratory Index Hgb O2 Saturation Glucose Lactate Vent Mode Mechanical Rate FiO2 Tidal Volume PEEP Sodium 156 H Potassium 3.9 Chloride 117 H Carbon Dioxide 29 Anion Gap 14 BUN 47 H Creatinine 1.8 H Est GFR ( Amer) 46 Est GFR (Non-Af Amer) 38 POC Glucose (mg/dL) 415 H* Random Glucose 331 H Serum Osmolality Calcium 8.4 L Phosphorus 4.4 Magnesium 2.4 H Total Bilirubin 0.7 AST 22 ALT 30 Alkaline Phosphatase 61 Total Creatine Kinase CK-MB (Mass) Troponin I Total Protein 5.6 L Albumin 2.7 L Globulin 2.9 Albumin/Globulin Ratio 0.9 L Procalcitonin Arterial Blood Potassium Urine Color Urine Clarity Urine pH Ur Specific [place] Urine Protein Urine Glucose (UA) Urine Ketones Urine Blood Urine Nitrate Urine Bilirubin Urine Urobilinogen Ur Leukocyte Esterase Urine WBC (Auto) Urine RBC (Auto) Ur Squamous Epith Cells Granular Casts (Auto) Urine Yeast (Budding) Urine Osmolality Ur Random Potassium Levetiracetam 02/09/18 02/09/18 02/09/18 00:31 04:30 04:45 WBC RBC Hgb Hct MCV MCH MCHC RDW Plt Count MPV Neut % (Auto) Lymph % (Auto) [place] % (Auto) Eos % (Auto) Baso % (Auto) Neut # (Auto) Lymph # (Auto) [place] # (Auto) Eos # (Auto) Baso # (Auto) Differential Comment APTT 177 H* Puncture Site pCO2 pO2 HCO3 ABG pH ABG Total CO2 ABG O2 Saturation ABG Base Excess ABG Hemoglobin ABG Carboxyhemoglobin POC ABG HHb (Measured) ABG Methemoglobin Jamey Test ABG Potassium A-a O2 Difference Respiratory Index Hgb O2 Saturation Glucose Lactate Vent Mode Mechanical Rate FiO2 Tidal Volume PEEP Sodium Potassium Chloride Carbon Dioxide Anion Gap BUN Creatinine Est GFR ( Amer) Est GFR (Non-Af Amer) POC Glucose (mg/dL) 370 H 403 H* Random Glucose Serum Osmolality Calcium Phosphorus Magnesium Total Bilirubin AST ALT Alkaline Phosphatase Total Creatine Kinase CK-MB (Mass) Troponin I Total Protein Albumin Globulin Albumin/Globulin Ratio Procalcitonin Arterial Blood Potassium Urine Color Urine Clarity Urine pH Ur Specific [place] Urine Protein Urine Glucose (UA) Urine Ketones Urine Blood Urine Nitrate Urine Bilirubin Urine Urobilinogen Ur Leukocyte Esterase Urine WBC (Auto) Urine RBC (Auto) Ur Squamous Epith Cells Granular Casts (Auto) Urine Yeast (Budding) Urine Osmolality Ur Random Potassium Levetiracetam 02/09/18 02/09/18 02/09/18 04:45 04:45 05:26 WBC 6.9 RBC 3.73 L Hgb 11.7 L Hct 36.2 MCV 97.2 H MCH 31.4 H MCHC 32.3 L RDW 13.3 Plt Count 84 L MPV 11.7 Neut % (Auto) 67.5 Lymph % (Auto) 25.5 [place] % (Auto) 5.6 Eos % (Auto) 1.0 Baso % (Auto) 0.4 Neut # (Auto) 4.7 Lymph # (Auto) 1.8 [place] # (Auto) 0.4 Eos # (Auto) 0.1 Baso # (Auto) 0.0 Differential Comment APTT Puncture Site Rb pCO2 41 pO2 90 HCO3 29.9 H ABG pH 7.48 H ABG Total CO2 31.8 H ABG O2 Saturation 98.6 H ABG Base Excess 6.4 H ABG Hemoglobin 11.1 L ABG Carboxyhemoglobin 2.1 H POC ABG HHb (Measured) 1.4 ABG Methemoglobin 1.0 Jamey Test Na ABG Potassium A-a O2 Difference 144.0 Respiratory Index 1.6 Hgb O2 Saturation 95.6 Glucose Lactate Vent Mode Prvc Mechanical Rate 16 FiO2 40.0 Tidal Volume 500 PEEP 5 Sodium 152 H Potassium 3.6 Chloride 113 H Carbon Dioxide 28 Anion Gap 15 BUN 51 H Creatinine 1.8 H Est GFR ( Amer) 46 Est GFR (Non-Af Amer) 38 POC Glucose (mg/dL) Random Glucose 445 H* D Serum Osmolality Calcium 8.0 L Phosphorus Magnesium Total Bilirubin 0.8 AST 26 ALT 35 Alkaline Phosphatase 64 Total Creatine Kinase 60 CK-MB (Mass) 0.99 Troponin I 0.0810 Total Protein 5.3 L Albumin 2.6 L Globulin 2.8 Albumin/Globulin Ratio 0.9 L Procalcitonin Arterial Blood Potassium Urine Color Urine Clarity Urine pH Ur Specific [place] Urine Protein Urine Glucose (UA) Urine Ketones Urine Blood Urine Nitrate Urine Bilirubin Urine Urobilinogen Ur Leukocyte Esterase Urine WBC (Auto) Urine RBC (Auto) Ur Squamous Epith Cells Granular Casts (Auto) Urine Yeast (Budding) Urine Osmolality Ur Random Potassium Levetiracetam Fingerstick Blood Sugar Results: 345 Assessment/Plan - Assessment and Plan (Free Text) Assessment: Patient is a 67 yo male, admitted from home on 01/16/18, after found by his daughter to be nonverbal and " stiff". Per daughter, just one hour before it, patient was at his base line. Patient transfered to ED where he sustained seizures and acute respiratory distress, requiring intubation. During this hospital stay, patient was successfully extubated and transferred to the floor. Patient was intubated on the floors and brought to the ICU for respiratory distress. 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 <Michaelle Leroy - Last Filed: 02/09/18 16:13> CCU Subjective - Physician Review Critical Care Time Spent (in minutes): 45 CCU Objective - Vital Signs / Intake & Output Vital Signs (Last 4 hours): Vital Signs Temp Pulse Resp BP Pulse Ox 02/09/18 16:00 98.4 F 78 22 100 02/09/18 15:58 79 21 100/54 L 100 02/09/18 15:24 79 17 100/57 L 100 02/09/18 15:17 82 17 86/56 L 100 02/09/18 15:00 77 23 100 02/09/18 14:58 75 21 84/49 L 100 02/09/18 14:09 75 24 92/49 L 100 02/09/18 14:08 74 21 77/50 L 100 02/09/18 14:00 76 21 100 02/09/18 13:58 72 23 77/44 L 99 02/09/18 13:56 72 22 80/46 L 99 02/09/18 13:00 77 20 99 02/09/18 12:58 77 16 90/50 L 99 Intake and Output (Last 8hrs): Intake & Output 02/09/18 02/09/18 02/09/18 06:59 14:59 22:59 Intake Total 1491.9 2156.9 14 Output Total 730 525 Balance 761.9 1631.9 14 Weight 203 lb 9 oz Intake: IV 50 22 14 Intake, IV Amount 1441.9 1334.9 Right Antecubital 1125 1000 Right Forearm 16.7 Right Wrist 100.2 63.9 right ac 200 271 Oral 800 Output: Urine 730 525 2-way Urethral 730 525 Other: # Bowel Movements 0 - Medications Active Medications: Active Medications Generic Name Dose Route Start Last Admin Trade Name Freq PRN Reason Stop Dose Admin Acetaminophen 650 mg 01/19/18 00:50 02/05/18 20:48 Tylenol 650mg/20.3ml Solution Ud NG 650 mg Q6 PRN Administration GIVE FOR TEMP. 100*F OR ABOVE Albuterol/Ipratropium 3 ml 01/26/18 20:00 02/09/18 13:25 Duoneb 3 Mg/0.5 Mg (3 Ml) Ud INH 3 ml RQ6 SHINE Administration Apixaban 10 mg 02/09/18 18:00 Eliquis PO 02/16/18 18:01 BID SHINE Aspirin 81 mg 01/17/18 10:00 02/09/18 09:18 Aspirin Chewable PO Not Given DAILY SHINE Carvedilol 12.5 mg 01/22/18 09:07 02/09/18 09:41 Coreg PO 12.5 mg BID SHINE Administration Hydralazine HCl 100 mg 02/03/18 00:29 02/09/18 13:58 Apresoline PO Not Given Q8 SHINE Dextrose 1,000 mls @ 125 mls/hr 02/08/18 10:30 02/09/18 10:05 Dextrose 5% In Water 1000 Ml IV Not Given .Q8H SHINE Levetiracetam 500 mg/ Dextrose 55 mls @ 420 mls/hr 02/08/18 22:00 02/09/18 09 :41 IVPB 420 mls/hr Q12H HSINE Administration Vancomycin HCl 1 gm/ Dextrose 250 mls @ 166.7 mls/hr 02/08/18 19:30 02/08/18 21:50 IVPB 166.7 mls/hr Q48H SHINE Administration Protocol Cefepime HCl 2 gm in 100 mls @ 200 mls/hr 02/08/18 19:00 02/09/18 06:17 Maxipime Iv 2 Gm Premix IVPB 02/13/18 19:01 200 mls/hr Q12H SHINE Administration Protocol Acyclovir 750 mg/ Dextrose 250 mls @ 100 mls/hr 02/08/18 20:00 02/09/18 08:07 IV 100 mls/hr Q12H SHINE Administration Protocol Insulin Human Regular 100 unit 100 mls @ 2 mls/hr 02/09/18 09:00 02/09/18 15: 06 / Sodium Chloride IV 2 unit/hr .Q24H PRN 2 mls/hr PER PROTOCOL Titration Protocol Insulin Glargine 20 unit 02/09/18 08:00 02/09/18 08:30 Lantus SC 20 u Q12H SHIEN Administration Tamsulosin HCl 0.4 mg 01/30/18 20:00 02/09/18 09:19 Flomax PO Not Given DAILY SHINE - Patient Studies Lab Studies: Lab Studies 02/09/18 02/09/18 02/09/18 Range/Units 15:04 14:08 13:06 WBC (4.8-10.8) K/uL RBC (4.40-5.90) Mil/uL Hgb (12.0-18.0) g/dL Hct (35.0-51.0) % MCV (80.0-94.0) fL MCH (27.0-31.0) pg MCHC (33.0-37.0) g/dL RDW (11.5-14.5) % Plt Count (130-400) K/uL MPV (7.2-11.7) fL Neut % (Auto) (50.0-75.0) % Lymph % (Auto) (20.0-40.0) % [place] % (Auto) (0.0-10.0) % Eos % (Auto) (0.0-4.0) % Baso % (Auto) (0.0-2.0) % Neut # (Auto) (1.8-7.0) K/uL Lymph # (Auto) (1.0-4.3) K/uL [place] # (Auto) (0.0-0.8) K/uL Eos # (Auto) (0.0-0.7) K/uL Baso # (Auto) (0.0-0.2) K/uL Differential Comment APTT (21-34) SECONDS Puncture Site pCO2 (35-45) mm/Hg pO2 (80-100) mm/Hg HCO3 (21-28) mmol/L ABG pH (7.35-7.45) ABG Total CO2 (22-28) mmol/L ABG O2 Saturation (95-98) % ABG Base Excess (-2.0-3.0) mmol/L ABG Hemoglobin (11.7-17.4) g/dL ABG Carboxyhemoglobin (0.5-1.5) % POC ABG HHb (Measured) (0.0-5.0) % ABG Methemoglobin (0.0-3.0) % Jamey Test ABG Potassium (3.6-5.2) mmol/L A-a O2 Difference mm/Hg Respiratory Index Hgb O2 Saturation (95.0-98.0) % Sodium (132-148) mmol/l Chloride (98-107) mmol/L Glucose (75-110) mg/dl Lactate (0.7-2.1) mmol/L Vent Mode Mechanical Rate FiO2 % Tidal Volume PEEP Potassium (3.6-5.2) mmol/L Carbon Dioxide (22-30) mmol/L Anion Gap (10-20) BUN (9-20) mg/dL Creatinine (0.8-1.5) mg/dL Est GFR ( Amer) Est GFR (Non-Af Amer) POC Glucose (mg/dL) 156 H 200 H 328 H (65-110) mg/dL Random Glucose (75-110) mg/dL Serum Osmolality (272-300) mosm/kg Calcium (8.6-10.4) mg/dl Phosphorus (2.5-4.5) mg/dL Magnesium (1.6-2.3) mg/dL Total Bilirubin (0.2-1.3) mg/dL AST (17-59) U/L ALT (21-72) U/L Alkaline Phosphatase (38-126) U/L Ammonia (9-33) umol/L Total Creatine Kinase (55-170) U/L CK-MB (Mass) (0.0-3.38) ng/mL Troponin I (0.00-0.120) ng/mL Total Protein (6.3-8.3) g/dL Albumin (3.5-5.0) g/dL Globulin (2.2-3.9) gm/dL Albumin/Globulin Ratio (1.0-2.1) Procalcitonin (0.19-0.49) NG/ML Arterial Blood Potassium (3.6-5.2) mmol/L Urine Color (YELLOW) Urine Clarity (Clear) Urine pH (5.0-8.0) Ur Specific [place] (1.003-1.030) Urine Protein (NEGATIVE) mg/dL Urine Glucose (UA) (Normal) mg/dL Urine Ketones (NEGATIVE) mg/dL Urine Blood (NEGATIVE) Urine Nitrate (NEGATIVE) Urine Bilirubin (NEGATIVE) Urine Urobilinogen (0.2-1.0) mg/dL Ur Leukocyte Esterase (Negative) Minh/uL Urine WBC (Auto) (0-5) /hpf Urine RBC (Auto) (0-3) /hpf Ur Squamous Epith Cells (0-5) /hpf Granular Casts (Auto) (0-1) /lpf Urine Yeast (Budding) (NEGATIVE) /hpf Urine Osmolality (300-1000) mosm/kg Ur Random Potassium mmol/L Urine Opiates Screen (NEGATIVE) Urine Methadone Screen (NEGATIVE) Ur Barbiturates Screen (NEGATIVE) Ur Phencyclidine Scrn (NEGATIVE) Ur Amphetamines Screen (NEGATIVE) U Benzodiazepines Scrn (NEGATIVE) U Oth Cocaine Metabols (NEGATIVE) U Cannabinoids Screen (NEGATIVE) 02/09/18 02/09/18 02/09/18 Range/Units 12:16 12:02 11:25 WBC 7.2 (4.8-10.8) K/uL RBC 3.77 L (4.40-5.90) Mil/uL Hgb 11.9 L (12.0-18.0) g/dL Hct 36.5 (35.0-51.0) % MCV 96.7 H (80.0-94.0) fL MCH 31.5 H (27.0-31.0) pg MCHC 32.5 L (33.0-37.0) g/dL RDW 13.1 (11.5-14.5) % Plt Count 77 L (130-400) K/uL MPV 12.0 H (7.2-11.7) fL Neut % (Auto) 73.1 (50.0-75.0) % Lymph % (Auto) 19.6 L (20.0-40.0) % [place] % (Auto) 4.9 (0.0-10.0) % Eos % (Auto) 1.3 (0.0-4.0) % Baso % (Auto) 1.1 (0.0-2.0) % Neut # (Auto) 5.3 (1.8-7.0) K/uL Lymph # (Auto) 1.4 (1.0-4.3) K/uL [place] # (Auto) 0.4 (0.0-0.8) K/uL Eos # (Auto) 0.1 (0.0-0.7) K/uL Baso # (Auto) 0.1 (0.0-0.2) K/uL Differential Comment APTT 50 H D (21-34) SECONDS Puncture Site pCO2 (35-45) mm/Hg pO2 (80-100) mm/Hg HCO3 (21-28) mmol/L ABG pH (7.35-7.45) ABG Total CO2 (22-28) mmol/L ABG O2 Saturation (95-98) % ABG Base Excess (-2.0-3.0) mmol/L ABG Hemoglobin (11.7-17.4) g/dL ABG Carboxyhemoglobin (0.5-1.5) % POC ABG HHb (Measured) (0.0-5.0) % ABG Methemoglobin (0.0-3.0) % Jamey Test ABG Potassium (3.6-5.2) mmol/L A-a O2 Difference mm/Hg Respiratory Index Hgb O2 Saturation (95.0-98.0) % Sodium (132-148) mmol/l Chloride (98-107) mmol/L Glucose (75-110) mg/dl Lactate (0.7-2.1) mmol/L Vent Mode Mechanical Rate FiO2 % Tidal Volume PEEP Potassium (3.6-5.2) mmol/L Carbon Dioxide (22-30) mmol/L Anion Gap (10-20) BUN (9-20) mg/dL Creatinine (0.8-1.5) mg/dL Est GFR ( Amer) Est GFR (Non-Af Amer) POC Glucose (mg/dL) 293 H (65-110) mg/dL Random Glucose (75-110) mg/dL Serum Osmolality (272-300) mosm/kg Calcium (8.6-10.4) mg/dl Phosphorus (2.5-4.5) mg/dL Magnesium (1.6-2.3) mg/dL Total Bilirubin (0.2-1.3) mg/dL AST (17-59) U/L ALT (21-72) U/L Alkaline Phosphatase (38-126) U/L Ammonia (9-33) umol/L Total Creatine Kinase (55-170) U/L CK-MB (Mass) (0.0-3.38) ng/mL Troponin I (0.00-0.120) ng/mL Total Protein (6.3-8.3) g/dL Albumin (3.5-5.0) g/dL Globulin (2.2-3.9) gm/dL Albumin/Globulin Ratio (1.0-2.1) Procalcitonin (0.19-0.49) NG/ML Arterial Blood Potassium (3.6-5.2) mmol/L Urine Color (YELLOW) Urine Clarity (Clear) Urine pH (5.0-8.0) Ur Specific [place] (1.003-1.030) Urine Protein (NEGATIVE) mg/dL Urine Glucose (UA) (Normal) mg/dL Urine Ketones (NEGATIVE) mg/dL Urine Blood (NEGATIVE) Urine Nitrate (NEGATIVE) Urine Bilirubin (NEGATIVE) Urine Urobilinogen (0.2-1.0) mg/dL Ur Leukocyte Esterase (Negative) Minh/uL Urine WBC (Auto) (0-5) /hpf Urine RBC (Auto) (0-3) /hpf Ur Squamous Epith Cells (0-5) /hpf Granular Casts (Auto) (0-1) /lpf Urine Yeast (Budding) (NEGATIVE) /hpf Urine Osmolality (300-1000) mosm/kg Ur Random Potassium mmol/L Urine Opiates Screen (NEGATIVE) Urine Methadone Screen (NEGATIVE) Ur Barbiturates Screen (NEGATIVE) Ur Phencyclidine Scrn (NEGATIVE) Ur Amphetamines Screen (NEGATIVE) U Benzodiazepines Scrn (NEGATIVE) U Oth Cocaine Metabols (NEGATIVE) U Cannabinoids Screen (NEGATIVE) 02/09/18 02/09/18 02/09/18 Range/Units 11:25 11:05 10:28 WBC (4.8-10.8) K/uL RBC (4.40-5.90) Mil/uL Hgb (12.0-18.0) g/dL Hct (35.0-51.0) % MCV (80.0-94.0) fL MCH (27.0-31.0) pg MCHC (33.0-37.0) g/dL RDW (11.5-14.5) % Plt Count (130-400) K/uL MPV (7.2-11.7) fL Neut % (Auto) (50.0-75.0) % Lymph % (Auto) (20.0-40.0) % [place] % (Auto) (0.0-10.0) % Eos % (Auto) (0.0-4.0) % Baso % (Auto) (0.0-2.0) % Neut # (Auto) (1.8-7.0) K/uL Lymph # (Auto) (1.0-4.3) K/uL [place] # (Auto) (0.0-0.8) K/uL Eos # (Auto) (0.0-0.7) K/uL Baso # (Auto) (0.0-0.2) K/uL Differential Comment APTT (21-34) SECONDS Puncture Site pCO2 (35-45) mm/Hg pO2 (80-100) mm/Hg HCO3 (21-28) mmol/L ABG pH (7.35-7.45) ABG Total CO2 (22-28) mmol/L ABG O2 Saturation (95-98) % ABG Base Excess (-2.0-3.0) mmol/L ABG Hemoglobin (11.7-17.4) g/dL ABG Carboxyhemoglobin (0.5-1.5) % POC ABG HHb (Measured) (0.0-5.0) % ABG Methemoglobin (0.0-3.0) % Jamey Test ABG Potassium (3.6-5.2) mmol/L A-a O2 Difference mm/Hg Respiratory Index Hgb O2 Saturation (95.0-98.0) % Sodium (132-148) mmol/l Chloride (98-107) mmol/L Glucose (75-110) mg/dl Lactate (0.7-2.1) mmol/L Vent Mode Mechanical Rate FiO2 % Tidal Volume PEEP Potassium (3.6-5.2) mmol/L Carbon Dioxide (22-30) mmol/L Anion Gap (10-20) BUN (9-20) mg/dL Creatinine (0.8-1.5) mg/dL Est GFR ( Amer) Est GFR (Non-Af Amer) POC Glucose (mg/dL) 371 H 392 H (65-110) mg/dL Random Glucose (75-110) mg/dL Serum Osmolality (272-300) mosm/kg Calcium (8.6-10.4) mg/dl Phosphorus (2.5-4.5) mg/dL Magnesium (1.6-2.3) mg/dL Total Bilirubin (0.2-1.3) mg/dL AST (17-59) U/L ALT (21-72) U/L Alkaline Phosphatase (38-126) U/L Ammonia 12 D (9-33) umol/L Total Creatine Kinase (55-170) U/L CK-MB (Mass) (0.0-3.38) ng/mL Troponin I (0.00-0.120) ng/mL Total Protein (6.3-8.3) g/dL Albumin (3.5-5.0) g/dL Globulin (2.2-3.9) gm/dL Albumin/Globulin Ratio (1.0-2.1) Procalcitonin (0.19-0.49) NG/ML Arterial Blood Potassium (3.6-5.2) mmol/L Urine Color (YELLOW) Urine Clarity (Clear) Urine pH (5.0-8.0) Ur Specific [place] (1.003-1.030) Urine Protein (NEGATIVE) mg/dL Urine Glucose (UA) (Normal) mg/dL Urine Ketones (NEGATIVE) mg/dL Urine Blood (NEGATIVE) Urine Nitrate (NEGATIVE) Urine Bilirubin (NEGATIVE) Urine Urobilinogen (0.2-1.0) mg/dL Ur Leukocyte Esterase (Negative) Minh/uL Urine WBC (Auto) (0-5) /hpf Urine RBC (Auto) (0-3) /hpf Ur Squamous Epith Cells (0-5) /hpf Granular Casts (Auto) (0-1) /lpf Urine Yeast (Budding) (NEGATIVE) /hpf Urine Osmolality (300-1000) mosm/kg Ur Random Potassium mmol/L Urine Opiates Screen (NEGATIVE) Urine Methadone Screen (NEGATIVE) Ur Barbiturates Screen (NEGATIVE) Ur Phencyclidine Scrn (NEGATIVE) Ur Amphetamines Screen (NEGATIVE) U Benzodiazepines Scrn (NEGATIVE) U Oth Cocaine Metabols (NEGATIVE) U Cannabinoids Screen (NEGATIVE) 02/09/18 02/09/18 02/09/18 Range/Units 08:26 05:26 04:45 WBC (4.8-10.8) K/uL RBC (4.40-5.90) Mil/uL Hgb (12.0-18.0) g/dL Hct (35.0-51.0) % MCV (80.0-94.0) fL MCH (27.0-31.0) pg MCHC (33.0-37.0) g/dL RDW (11.5-14.5) % Plt Count (130-400) K/uL MPV (7.2-11.7) fL Neut % (Auto) (50.0-75.0) % Lymph % (Auto) (20.0-40.0) % [place] % (Auto) (0.0-10.0) % Eos % (Auto) (0.0-4.0) % Baso % (Auto) (0.0-2.0) % Neut # (Auto) (1.8-7.0) K/uL Lymph # (Auto) (1.0-4.3) K/uL [place] # (Auto) (0.0-0.8) K/uL Eos # (Auto) (0.0-0.7) K/uL Baso # (Auto) (0.0-0.2) K/uL Differential Comment APTT (21-34) SECONDS Puncture Site Rb pCO2 41 (35-45) mm/Hg pO2 90 (80-100) mm/Hg HCO3 29.9 H (21-28) mmol/L ABG pH 7.48 H (7.35-7.45) ABG Total CO2 31.8 H (22-28) mmol/L ABG O2 Saturation 98.6 H (95-98) % ABG Base Excess 6.4 H (-2.0-3.0) mmol/L ABG Hemoglobin 11.1 L (11.7-17.4) g/dL ABG Carboxyhemoglobin 2.1 H (0.5-1.5) % POC ABG HHb (Measured) 1.4 (0.0-5.0) % ABG Methemoglobin 1.0 (0.0-3.0) % Jamey Test Na ABG Potassium (3.6-5.2) mmol/L A-a O2 Difference 144.0 mm/Hg Respiratory Index 1.6 Hgb O2 Saturation 95.6 (95.0-98.0) % Sodium 152 H (132-148) mmol/l Chloride 113 H (98-107) mmol/L Glucose (75-110) mg/dl Lactate (0.7-2.1) mmol/L Vent Mode Prvc Mechanical Rate 16 FiO2 40.0 % Tidal Volume 500 PEEP 5 Potassium 3.6 (3.6-5.2) mmol/L Carbon Dioxide 28 (22-30) mmol/L Anion Gap 15 (10-20) BUN 51 H (9-20) mg/dL Creatinine 1.8 H (0.8-1.5) mg/dL Est GFR ( Amer) 46 Est GFR (Non-Af Amer) 38 POC Glucose (mg/dL) (65-110) mg/dL Random Glucose 445 H* D (75-110) mg/dL Serum Osmolality (272-300) mosm/kg Calcium 8.0 L (8.6-10.4) mg/dl Phosphorus (2.5-4.5) mg/dL Magnesium (1.6-2.3) mg/dL Total Bilirubin 0.8 (0.2-1.3) mg/dL AST 26 (17-59) U/L ALT 35 (21-72) U/L Alkaline Phosphatase 64 (38-126) U/L Ammonia (9-33) umol/L Total Creatine Kinase 60 (55-170) U/L CK-MB (Mass) 0.99 (0.0-3.38) ng/mL Troponin I 0.0810 (0.00-0.120) ng/mL Total Protein 5.3 L (6.3-8.3) g/dL Albumin 2.6 L (3.5-5.0) g/dL Globulin 2.8 (2.2-3.9) gm/dL Albumin/Globulin Ratio 0.9 L (1.0-2.1) Procalcitonin (0.19-0.49) NG/ML Arterial Blood Potassium (3.6-5.2) mmol/L Urine Color (YELLOW) Urine Clarity (Clear) Urine pH (5.0-8.0) Ur Specific [place] (1.003-1.030) Urine Protein (NEGATIVE) mg/dL Urine Glucose (UA) (Normal) mg/dL Urine Ketones (NEGATIVE) mg/dL Urine Blood (NEGATIVE) Urine Nitrate (NEGATIVE) Urine Bilirubin (NEGATIVE) Urine Urobilinogen (0.2-1.0) mg/dL Ur Leukocyte Esterase (Negative) Minh/uL Urine WBC (Auto) (0-5) /hpf Urine RBC (Auto) (0-3) /hpf Ur Squamous Epith Cells (0-5) /hpf Granular Casts (Auto) (0-1) /lpf Urine Yeast (Budding) (NEGATIVE) /hpf Urine Osmolality (300-1000) mosm/kg Ur Random Potassium mmol/L Urine Opiates Screen Negative (NEGATIVE) Urine Methadone Screen Negative (NEGATIVE) Ur Barbiturates Screen Negative (NEGATIVE) Ur Phencyclidine Scrn Negative (NEGATIVE) Ur Amphetamines Screen Negative (NEGATIVE) U Benzodiazepines Scrn Positive (NEGATIVE) U Oth Cocaine Metabols Negative (NEGATIVE) U Cannabinoids Screen Negative (NEGATIVE) 02/09/18 02/09/18 02/09/18 Range/Units 04:45 04:45 04:30 WBC 6.9 (4.8-10.8) K/uL RBC 3.73 L (4.40-5.90) Mil/uL Hgb 11.7 L (12.0-18.0) g/dL Hct 36.2 (35.0-51.0) % MCV 97.2 H (80.0-94.0) fL MCH 31.4 H (27.0-31.0) pg MCHC 32.3 L (33.0-37.0) g/dL RDW 13.3 (11.5-14.5) % Plt Count 84 L (130-400) K/uL MPV 11.7 (7.2-11.7) fL Neut % (Auto) 67.5 (50.0-75.0) % Lymph % (Auto) 25.5 (20.0-40.0) % [place] % (Auto) 5.6 (0.0-10.0) % Eos % (Auto) 1.0 (0.0-4.0) % Baso % (Auto) 0.4 (0.0-2.0) % Neut # (Auto) 4.7 (1.8-7.0) K/uL Lymph # (Auto) 1.8 (1.0-4.3) K/uL [place] # (Auto) 0.4 (0.0-0.8) K/uL Eos # (Auto) 0.1 (0.0-0.7) K/uL Baso # (Auto) 0.0 (0.0-0.2) K/uL Differential Comment APTT 177 H* (21-34) SECONDS Puncture Site pCO2 (35-45) mm/Hg pO2 (80-100) mm/Hg HCO3 (21-28) mmol/L ABG pH (7.35-7.45) ABG Total CO2 (22-28) mmol/L ABG O2 Saturation (95-98) % ABG Base Excess (-2.0-3.0) mmol/L ABG Hemoglobin (11.7-17.4) g/dL ABG Carboxyhemoglobin (0.5-1.5) % POC ABG HHb (Measured) (0.0-5.0) % ABG Methemoglobin (0.0-3.0) % Jamey Test ABG Potassium (3.6-5.2) mmol/L A-a O2 Difference mm/Hg Respiratory Index Hgb O2 Saturation (95.0-98.0) % Sodium (132-148) mmol/l Chloride (98-107) mmol/L Glucose (75-110) mg/dl Lactate (0.7-2.1) mmol/L Vent Mode Mechanical Rate FiO2 % Tidal Volume PEEP Potassium (3.6-5.2) mmol/L Carbon Dioxide (22-30) mmol/L Anion Gap (10-20) BUN (9-20) mg/dL Creatinine (0.8-1.5) mg/dL Est GFR ( Amer) Est GFR (Non-Af Amer) POC Glucose (mg/dL) 403 H* (65-110) mg/dL Random Glucose (75-110) mg/dL Serum Osmolality (272-300) mosm/kg Calcium (8.6-10.4) mg/dl Phosphorus (2.5-4.5) mg/dL Magnesium (1.6-2.3) mg/dL Total Bilirubin (0.2-1.3) mg/dL AST (17-59) U/L ALT (21-72) U/L Alkaline Phosphatase (38-126) U/L Ammonia (9-33) umol/L Total Creatine Kinase (55-170) U/L CK-MB (Mass) (0.0-3.38) ng/mL Troponin I (0.00-0.120) ng/mL Total Protein (6.3-8.3) g/dL Albumin (3.5-5.0) g/dL Globulin (2.2-3.9) gm/dL Albumin/Globulin Ratio (1.0-2.1) Procalcitonin (0.19-0.49) NG/ML Arterial Blood Potassium (3.6-5.2) mmol/L Urine Color (YELLOW) Urine Clarity (Clear) Urine pH (5.0-8.0) Ur Specific [place] (1.003-1.030) Urine Protein (NEGATIVE) mg/dL Urine Glucose (UA) (Normal) mg/dL Urine Ketones (NEGATIVE) mg/dL Urine Blood (NEGATIVE) Urine Nitrate (NEGATIVE) Urine Bilirubin (NEGATIVE) Urine Urobilinogen (0.2-1.0) mg/dL Ur Leukocyte Esterase (Negative) Minh/uL Urine WBC (Auto) (0-5) /hpf Urine RBC (Auto) (0-3) /hpf Ur Squamous Epith Cells (0-5) /hpf Granular Casts (Auto) (0-1) /lpf Urine Yeast (Budding) (NEGATIVE) /hpf Urine Osmolality (300-1000) mosm/kg Ur Random Potassium mmol/L Urine Opiates Screen (NEGATIVE) Urine Methadone Screen (NEGATIVE) Ur Barbiturates Screen (NEGATIVE) Ur Phencyclidine Scrn (NEGATIVE) Ur Amphetamines Screen (NEGATIVE) U Benzodiazepines Scrn (NEGATIVE) U Oth Cocaine Metabols (NEGATIVE) U Cannabinoids Screen (NEGATIVE) 02/09/18 02/09/18 02/08/18 Range/Units 00:31 00:28 20:47 WBC (4.8-10.8) K/uL RBC (4.40-5.90) Mil/uL Hgb (12.0-18.0) g/dL Hct (35.0-51.0) % MCV (80.0-94.0) fL MCH (27.0-31.0) pg MCHC (33.0-37.0) g/dL RDW (11.5-14.5) % Plt Count (130-400) K/uL MPV (7.2-11.7) fL Neut % (Auto) (50.0-75.0) % Lymph % (Auto) (20.0-40.0) % [place] % (Auto) (0.0-10.0) % Eos % (Auto) (0.0-4.0) % Baso % (Auto) (0.0-2.0) % Neut # (Auto) (1.8-7.0) K/uL Lymph # (Auto) (1.0-4.3) K/uL [place] # (Auto) (0.0-0.8) K/uL Eos # (Auto) (0.0-0.7) K/uL Baso # (Auto) (0.0-0.2) K/uL Differential Comment APTT (21-34) SECONDS Puncture Site pCO2 (35-45) mm/Hg pO2 (80-100) mm/Hg HCO3 (21-28) mmol/L ABG pH (7.35-7.45) ABG Total CO2 (22-28) mmol/L ABG O2 Saturation (95-98) % ABG Base Excess (-2.0-3.0) mmol/L ABG Hemoglobin (11.7-17.4) g/dL ABG Carboxyhemoglobin (0.5-1.5) % POC ABG HHb (Measured) (0.0-5.0) % ABG Methemoglobin (0.0-3.0) % Jamey Test ABG Potassium (3.6-5.2) mmol/L A-a O2 Difference mm/Hg Respiratory Index Hgb O2 Saturation (95.0-98.0) % Sodium 156 H (132-148) mmol/l Chloride 117 H (98-107) mmol/L Glucose (75-110) mg/dl Lactate (0.7-2.1) mmol/L Vent Mode Mechanical Rate FiO2 % Tidal Volume PEEP Potassium 3.9 (3.6-5.2) mmol/L Carbon Dioxide 29 (22-30) mmol/L Anion Gap 14 (10-20) BUN 47 H (9-20) mg/dL Creatinine 1.8 H (0.8-1.5) mg/dL Est GFR ( Amer) 46 Est GFR (Non-Af Amer) 38 POC Glucose (mg/dL) 370 H 415 H* (65-110) mg/dL Random Glucose 331 H (75-110) mg/dL Serum Osmolality (272-300) mosm/kg Calcium 8.4 L (8.6-10.4) mg/dl Phosphorus 4.4 (2.5-4.5) mg/dL Magnesium 2.4 H (1.6-2.3) mg/dL Total Bilirubin 0.7 (0.2-1.3) mg/dL AST 22 (17-59) U/L ALT 30 (21-72) U/L Alkaline Phosphatase 61 (38-126) U/L Ammonia (9-33) umol/L Total Creatine Kinase (55-170) U/L CK-MB (Mass) (0.0-3.38) ng/mL Troponin I (0.00-0.120) ng/mL Total Protein 5.6 L (6.3-8.3) g/dL Albumin 2.7 L (3.5-5.0) g/dL Globulin 2.9 (2.2-3.9) gm/dL Albumin/Globulin Ratio 0.9 L (1.0-2.1) Procalcitonin (0.19-0.49) NG/ML Arterial Blood Potassium (3.6-5.2) mmol/L Urine Color (YELLOW) Urine Clarity (Clear) Urine pH (5.0-8.0) Ur Specific [place] (1.003-1.030) Urine Protein (NEGATIVE) mg/dL Urine Glucose (UA) (Normal) mg/dL Urine Ketones (NEGATIVE) mg/dL Urine Blood (NEGATIVE) Urine Nitrate (NEGATIVE) Urine Bilirubin (NEGATIVE) Urine Urobilinogen (0.2-1.0) mg/dL Ur Leukocyte Esterase (Negative) Minh/uL Urine WBC (Auto) (0-5) /hpf Urine RBC (Auto) (0-3) /hpf Ur Squamous Epith Cells (0-5) /hpf Granular Casts (Auto) (0-1) /lpf Urine Yeast (Budding) (NEGATIVE) /hpf Urine Osmolality (300-1000) mosm/kg Ur Random Potassium mmol/L Urine Opiates Screen (NEGATIVE) Urine Methadone Screen (NEGATIVE) Ur Barbiturates Screen (NEGATIVE) Ur Phencyclidine Scrn (NEGATIVE) Ur Amphetamines Screen (NEGATIVE) U Benzodiazepines Scrn (NEGATIVE) U Oth Cocaine Metabols (NEGATIVE) U Cannabinoids Screen (NEGATIVE) 02/08/18 02/08/18 02/08/18 Range/Units 20:47 20:47 20:30 WBC 6.2 (4.8-10.8) K/uL RBC 3.78 L (4.40-5.90) Mil/uL Hgb 11.9 L (12.0-18.0) g/dL Hct 36.2 (35.0-51.0) % MCV 95.8 H (80.0-94.0) fL MCH 31.4 H (27.0-31.0) pg MCHC 32.8 L (33.0-37.0) g/dL RDW 13.2 (11.5-14.5) % Plt Count 98 L D (130-400) K/uL MPV 11.7 (7.2-11.7) fL Neut % (Auto) 67.6 (50.0-75.0) % Lymph % (Auto) 24.5 (20.0-40.0) % [place] % (Auto) 7.0 (0.0-10.0) % Eos % (Auto) 0.4 (0.0-4.0) % Baso % (Auto) 0.5 (0.0-2.0) % Neut # (Auto) 4.2 (1.8-7.0) K/uL Lymph # (Auto) 1.5 (1.0-4.3) K/uL [place] # (Auto) 0.4 (0.0-0.8) K/uL Eos # (Auto) 0.0 (0.0-0.7) K/uL Baso # (Auto) 0.0 (0.0-0.2) K/uL Differential Comment APTT (21-34) SECONDS Puncture Site Rba pCO2 41 (35-45) mm/Hg pO2 282 H (80-100) mm/Hg HCO3 30.6 H (21-28) mmol/L ABG pH 7.49 H (7.35-7.45) ABG Total CO2 32.5 H (22-28) mmol/L ABG O2 Saturation 99.2 H (95-98) % ABG Base Excess 7.2 H (-2.0-3.0) mmol/L ABG Hemoglobin (11.7-17.4) g/dL ABG Carboxyhemoglobin (0.5-1.5) % POC ABG HHb (Measured) (0.0-5.0) % ABG Methemoglobin (0.0-3.0) % Jamey Test Pos ABG Potassium 3.7 (3.6-5.2) mmol/L A-a O2 Difference 237.0 mm/Hg Respiratory Index 0.8 Hgb O2 Saturation (95.0-98.0) % Sodium 158.0 H (132-148) mmol/l Chloride 121.0 H (98-107) mmol/L Glucose 344 H (75-110) mg/dl Lactate 1.6 (0.7-2.1) mmol/L Vent Mode Prvc Mechanical Rate 16 FiO2 80.0 % Tidal Volume 500 PEEP 5 Potassium (3.6-5.2) mmol/L Carbon Dioxide (22-30) mmol/L Anion Gap (10-20) BUN (9-20) mg/dL Creatinine (0.8-1.5) mg/dL Est GFR ( Amer) Est GFR (Non-Af Amer) POC Glucose (mg/dL) (65-110) mg/dL Random Glucose (75-110) mg/dL Serum Osmolality (272-300) mosm/kg Calcium (8.6-10.4) mg/dl Phosphorus (2.5-4.5) mg/dL Magnesium (1.6-2.3) mg/dL Total Bilirubin (0.2-1.3) mg/dL AST (17-59) U/L ALT (21-72) U/L Alkaline Phosphatase (38-126) U/L Ammonia (9-33) umol/L Total Creatine Kinase (55-170) U/L CK-MB (Mass) (0.0-3.38) ng/mL Troponin I (0.00-0.120) ng/mL Total Protein (6.3-8.3) g/dL Albumin (3.5-5.0) g/dL Globulin (2.2-3.9) gm/dL Albumin/Globulin Ratio (1.0-2.1) Procalcitonin 0.08 L (0.19-0.49) NG/ML Arterial Blood Potassium 3.7 (3.6-5.2) mmol/L Urine Color (YELLOW) Urine Clarity (Clear) Urine pH (5.0-8.0) Ur Specific [place] (1.003-1.030) Urine Protein (NEGATIVE) mg/dL Urine Glucose (UA) (Normal) mg/dL Urine Ketones (NEGATIVE) mg/dL Urine Blood (NEGATIVE) Urine Nitrate (NEGATIVE) Urine Bilirubin (NEGATIVE) Urine Urobilinogen (0.2-1.0) mg/dL Ur Leukocyte Esterase (Negative) Minh/uL Urine WBC (Auto) (0-5) /hpf Urine RBC (Auto) (0-3) /hpf Ur Squamous Epith Cells (0-5) /hpf Granular Casts (Auto) (0-1) /lpf Urine Yeast (Budding) (NEGATIVE) /hpf Urine Osmolality (300-1000) mosm/kg Ur Random Potassium mmol/L Urine Opiates Screen (NEGATIVE) Urine Methadone Screen (NEGATIVE) Ur Barbiturates Screen (NEGATIVE) Ur Phencyclidine Scrn (NEGATIVE) Ur Amphetamines Screen (NEGATIVE) U Benzodiazepines Scrn (NEGATIVE) U Oth Cocaine Metabols (NEGATIVE) U Cannabinoids Screen (NEGATIVE) 02/08/18 02/08/18 02/08/18 Range/Units 19:02 18:00 17:39 WBC (4.8-10.8) K/uL RBC (4.40-5.90) Mil/uL Hgb (12.0-18.0) g/dL Hct (35.0-51.0) % MCV (80.0-94.0) fL MCH (27.0-31.0) pg MCHC (33.0-37.0) g/dL RDW (11.5-14.5) % Plt Count (130-400) K/uL MPV (7.2-11.7) fL Neut % (Auto) (50.0-75.0) % Lymph % (Auto) (20.0-40.0) % [place] % (Auto) (0.0-10.0) % Eos % (Auto) (0.0-4.0) % Baso % (Auto) (0.0-2.0) % Neut # (Auto) (1.8-7.0) K/uL Lymph # (Auto) (1.0-4.3) K/uL [place] # (Auto) (0.0-0.8) K/uL Eos # (Auto) (0.0-0.7) K/uL Baso # (Auto) (0.0-0.2) K/uL Differential Comment APTT (21-34) SECONDS Puncture Site pCO2 (35-45) mm/Hg pO2 (80-100) mm/Hg HCO3 (21-28) mmol/L ABG pH (7.35-7.45) ABG Total CO2 (22-28) mmol/L ABG O2 Saturation (95-98) % ABG Base Excess (-2.0-3.0) mmol/L ABG Hemoglobin (11.7-17.4) g/dL ABG Carboxyhemoglobin (0.5-1.5) % POC ABG HHb (Measured) (0.0-5.0) % ABG Methemoglobin (0.0-3.0) % Jamey Test ABG Potassium (3.6-5.2) mmol/L A-a O2 Difference mm/Hg Respiratory Index Hgb O2 Saturation (95.0-98.0) % Sodium (132-148) mmol/l Chloride (98-107) mmol/L Glucose (75-110) mg/dl Lactate (0.7-2.1) mmol/L Vent Mode Mechanical Rate FiO2 % Tidal Volume PEEP Potassium (3.6-5.2) mmol/L Carbon Dioxide (22-30) mmol/L Anion Gap (10-20) BUN (9-20) mg/dL Creatinine (0.8-1.5) mg/dL Est GFR ( Amer) Est GFR (Non-Af Amer) POC Glucose (mg/dL) 350 H 345 H (65-110) mg/dL Random Glucose (75-110) mg/dL Serum Osmolality 357 H (272-300) mosm/kg Calcium (8.6-10.4) mg/dl Phosphorus (2.5-4.5) mg/dL Magnesium (1.6-2.3) mg/dL Total Bilirubin (0.2-1.3) mg/dL AST (17-59) U/L ALT (21-72) U/L Alkaline Phosphatase (38-126) U/L Ammonia (9-33) umol/L Total Creatine Kinase (55-170) U/L CK-MB (Mass) (0.0-3.38) ng/mL Troponin I (0.00-0.120) ng/mL Total Protein (6.3-8.3) g/dL Albumin (3.5-5.0) g/dL Globulin (2.2-3.9) gm/dL Albumin/Globulin Ratio (1.0-2.1) Procalcitonin (0.19-0.49) NG/ML Arterial Blood Potassium (3.6-5.2) mmol/L Urine Color (YELLOW) Urine Clarity (Clear) Urine pH (5.0-8.0) Ur Specific [place] (1.003-1.030) Urine Protein (NEGATIVE) mg/dL Urine Glucose (UA) (Normal) mg/dL Urine Ketones (NEGATIVE) mg/dL Urine Blood (NEGATIVE) Urine Nitrate (NEGATIVE) Urine Bilirubin (NEGATIVE) Urine Urobilinogen (0.2-1.0) mg/dL Ur Leukocyte Esterase (Negative) Minh/uL Urine WBC (Auto) (0-5) /hpf Urine RBC (Auto) (0-3) /hpf Ur Squamous Epith Cells (0-5) /hpf Granular Casts (Auto) (0-1) /lpf Urine Yeast (Budding) (NEGATIVE) /hpf Urine Osmolality (300-1000) mosm/kg Ur Random Potassium mmol/L Urine Opiates Screen (NEGATIVE) Urine Methadone Screen (NEGATIVE) Ur Barbiturates Screen (NEGATIVE) Ur Phencyclidine Scrn (NEGATIVE) Ur Amphetamines Screen (NEGATIVE) U Benzodiazepines Scrn (NEGATIVE) U Oth Cocaine Metabols (NEGATIVE) U Cannabinoids Screen (NEGATIVE) 02/08/18 02/08/18 02/08/18 Range/Units 17:39 17:25 16:23 WBC (4.8-10.8) K/uL RBC (4.40-5.90) Mil/uL Hgb (12.0-18.0) g/dL Hct (35.0-51.0) % MCV (80.0-94.0) fL MCH (27.0-31.0) pg MCHC (33.0-37.0) g/dL RDW (11.5-14.5) % Plt Count (130-400) K/uL MPV (7.2-11.7) fL Neut % (Auto) (50.0-75.0) % Lymph % (Auto) (20.0-40.0) % [place] % (Auto) (0.0-10.0) % Eos % (Auto) (0.0-4.0) % Baso % (Auto) (0.0-2.0) % Neut # (Auto) (1.8-7.0) K/uL Lymph # (Auto) (1.0-4.3) K/uL [place] # (Auto) (0.0-0.8) K/uL Eos # (Auto) (0.0-0.7) K/uL Baso # (Auto) (0.0-0.2) K/uL Differential Comment APTT (21-34) SECONDS Puncture Site pCO2 (35-45) mm/Hg pO2 (80-100) mm/Hg HCO3 (21-28) mmol/L ABG pH (7.35-7.45) ABG Total CO2 (22-28) mmol/L ABG O2 Saturation (95-98) % ABG Base Excess (-2.0-3.0) mmol/L ABG Hemoglobin (11.7-17.4) g/dL ABG Carboxyhemoglobin (0.5-1.5) % POC ABG HHb (Measured) (0.0-5.0) % ABG Methemoglobin (0.0-3.0) % Jamey Test ABG Potassium (3.6-5.2) mmol/L A-a O2 Difference mm/Hg Respiratory Index Hgb O2 Saturation (95.0-98.0) % Sodium (132-148) mmol/l Chloride (98-107) mmol/L Glucose (75-110) mg/dl Lactate (0.7-2.1) mmol/L Vent Mode Mechanical Rate FiO2 % Tidal Volume PEEP Potassium (3.6-5.2) mmol/L Carbon Dioxide (22-30) mmol/L Anion Gap (10-20) BUN (9-20) mg/dL Creatinine 1.7 H (0.8-1.5) mg/dL Est GFR ( Amer) 49 Est GFR (Non-Af Amer) 40 POC Glucose (mg/dL) (65-110) mg/dL Random Glucose (75-110) mg/dL Serum Osmolality (272-300) mosm/kg Calcium (8.6-10.4) mg/dl Phosphorus (2.5-4.5) mg/dL Magnesium (1.6-2.3) mg/dL Total Bilirubin (0.2-1.3) mg/dL AST (17-59) U/L ALT (21-72) U/L Alkaline Phosphatase (38-126) U/L Ammonia (9-33) umol/L Total Creatine Kinase (55-170) U/L CK-MB (Mass) (0.0-3.38) ng/mL Troponin I (0.00-0.120) ng/mL Total Protein (6.3-8.3) g/dL Albumin (3.5-5.0) g/dL Globulin (2.2-3.9) gm/dL Albumin/Globulin Ratio (1.0-2.1) Procalcitonin (0.19-0.49) NG/ML Arterial Blood Potassium (3.6-5.2) mmol/L Urine Color Yellow (YELLOW) Urine Clarity Hazy (Clear) Urine pH 5.0 (5.0-8.0) Ur Specific [place] 1.027 (1.003-1.030) Urine Protein 2+ H (NEGATIVE) mg/dL Urine Glucose (UA) 3+ H (Normal) mg/dL Urine Ketones Negative (NEGATIVE) mg/dL Urine Blood Negative (NEGATIVE) Urine Nitrate Negative (NEGATIVE) Urine Bilirubin Negative (NEGATIVE) Urine Urobilinogen Normal (0.2-1.0) mg/dL Ur Leukocyte Esterase Neg (Negative) Minh/uL Urine WBC (Auto) 2 (0-5) /hpf Urine RBC (Auto) 5 H (0-3) /hpf Ur Squamous Epith Cells 1 (0-5) /hpf Granular Casts (Auto) 0-2 (0-1) /lpf Urine Yeast (Budding) Occ H (NEGATIVE) /hpf Urine Osmolality (300-1000) mosm/kg Ur Random Potassium 63.3 mmol/L Urine Opiates Screen (NEGATIVE) Urine Methadone Screen (NEGATIVE) Ur Barbiturates Screen (NEGATIVE) Ur Phencyclidine Scrn (NEGATIVE) Ur Amphetamines Screen (NEGATIVE) U Benzodiazepines Scrn (NEGATIVE) U Oth Cocaine Metabols (NEGATIVE) U Cannabinoids Screen (NEGATIVE) 02/08/18 Range/Units 16:23 WBC (4.8-10.8) K/uL RBC (4.40-5.90) Mil/uL Hgb (12.0-18.0) g/dL Hct (35.0-51.0) % MCV (80.0-94.0) fL MCH (27.0-31.0) pg MCHC (33.0-37.0) g/dL RDW (11.5-14.5) % Plt Count (130-400) K/uL MPV (7.2-11.7) fL Neut % (Auto) (50.0-75.0) % Lymph % (Auto) (20.0-40.0) % [place] % (Auto) (0.0-10.0) % Eos % (Auto) (0.0-4.0) % Baso % (Auto) (0.0-2.0) % Neut # (Auto) (1.8-7.0) K/uL Lymph # (Auto) (1.0-4.3) K/uL [place] # (Auto) (0.0-0.8) K/uL Eos # (Auto) (0.0-0.7) K/uL Baso # (Auto) (0.0-0.2) K/uL Differential Comment APTT (21-34) SECONDS Puncture Site pCO2 (35-45) mm/Hg pO2 (80-100) mm/Hg HCO3 (21-28) mmol/L ABG pH (7.35-7.45) ABG Total CO2 (22-28) mmol/L ABG O2 Saturation (95-98) % ABG Base Excess (-2.0-3.0) mmol/L ABG Hemoglobin (11.7-17.4) g/dL ABG Carboxyhemoglobin (0.5-1.5) % POC ABG HHb (Measured) (0.0-5.0) % ABG Methemoglobin (0.0-3.0) % Jamey Test ABG Potassium (3.6-5.2) mmol/L A-a O2 Difference mm/Hg Respiratory Index Hgb O2 Saturation (95.0-98.0) % Sodium (132-148) mmol/l Chloride (98-107) mmol/L Glucose (75-110) mg/dl Lactate (0.7-2.1) mmol/L Vent Mode Mechanical Rate FiO2 % Tidal Volume PEEP Potassium (3.6-5.2) mmol/L Carbon Dioxide (22-30) mmol/L Anion Gap (10-20) BUN (9-20) mg/dL Creatinine (0.8-1.5) mg/dL Est GFR ( Amer) Est GFR (Non-Af Amer) POC Glucose (mg/dL) (65-110) mg/dL Random Glucose (75-110) mg/dL Serum Osmolality (272-300) mosm/kg Calcium (8.6-10.4) mg/dl Phosphorus (2.5-4.5) mg/dL Magnesium (1.6-2.3) mg/dL Total Bilirubin (0.2-1.3) mg/dL AST (17-59) U/L ALT (21-72) U/L Alkaline Phosphatase (38-126) U/L Ammonia (9-33) umol/L Total Creatine Kinase (55-170) U/L CK-MB (Mass) (0.0-3.38) ng/mL Troponin I (0.00-0.120) ng/mL Total Protein (6.3-8.3) g/dL Albumin (3.5-5.0) g/dL Globulin (2.2-3.9) gm/dL Albumin/Globulin Ratio (1.0-2.1) Procalcitonin (0.19-0.49) NG/ML Arterial Blood Potassium (3.6-5.2) mmol/L Urine Color (YELLOW) Urine Clarity (Clear) Urine pH (5.0-8.0) Ur Specific [place] (1.003-1.030) Urine Protein (NEGATIVE) mg/dL Urine Glucose (UA) (Normal) mg/dL Urine Ketones (NEGATIVE) mg/dL Urine Blood (NEGATIVE) Urine Nitrate (NEGATIVE) Urine Bilirubin (NEGATIVE) Urine Urobilinogen (0.2-1.0) mg/dL Ur Leukocyte Esterase (Negative) Minh/uL Urine WBC (Auto) (0-5) /hpf Urine RBC (Auto) (0-3) /hpf Ur Squamous Epith Cells (0-5) /hpf Granular Casts (Auto) (0-1) /lpf Urine Yeast (Budding) (NEGATIVE) /hpf Urine Osmolality 764 (300-1000) mosm/kg Ur Random Potassium mmol/L Urine Opiates Screen (NEGATIVE) Urine Methadone Screen (NEGATIVE) Ur Barbiturates Screen (NEGATIVE) Ur Phencyclidine Scrn (NEGATIVE) Ur Amphetamines Screen (NEGATIVE) U Benzodiazepines Scrn (NEGATIVE) U Oth Cocaine Metabols (NEGATIVE) U Cannabinoids Screen (NEGATIVE) Laboratory Results - last 24 hr 02/08/18 02/08/18 02/08/18 16:23 16:23 17:25 WBC RBC Hgb Hct MCV MCH MCHC RDW Plt Count MPV Neut % (Auto) Lymph % (Auto) [place] % (Auto) Eos % (Auto) Baso % (Auto) Neut # (Auto) Lymph # (Auto) [place] # (Auto) Eos # (Auto) Baso # (Auto) Differential Comment APTT Puncture Site pCO2 pO2 HCO3 ABG pH ABG Total CO2 ABG O2 Saturation ABG Base Excess ABG Hemoglobin ABG Carboxyhemoglobin POC ABG HHb (Measured) ABG Methemoglobin Jamey Test ABG Potassium A-a O2 Difference Respiratory Index Hgb O2 Saturation Sodium Chloride Glucose Lactate Vent Mode Mechanical Rate FiO2 Tidal Volume PEEP Potassium Carbon Dioxide Anion Gap BUN Creatinine Est GFR ( Amer) Est GFR (Non-Af Amer) POC Glucose (mg/dL) Random Glucose Serum Osmolality Calcium Phosphorus Magnesium Total Bilirubin AST ALT Alkaline Phosphatase Ammonia Total Creatine Kinase CK-MB (Mass) Troponin I Total Protein Albumin Globulin Albumin/Globulin Ratio Procalcitonin Arterial Blood Potassium Urine Color Yellow Urine Clarity Hazy Urine pH 5.0 Ur Specific [place] 1.027 Urine Protein 2+ H Urine Glucose (UA) 3+ H Urine Ketones Negative Urine Blood Negative Urine Nitrate Negative Urine Bilirubin Negative Urine Urobilinogen Normal Ur Leukocyte Esterase Neg Urine WBC (Auto) 2 Urine RBC (Auto) 5 H Ur Squamous Epith Cells 1 Granular Casts (Auto) 0-2 Urine Yeast (Budding) Occ H Urine Osmolality 764 Ur Random Potassium 63.3 Urine Opiates Screen Urine Methadone Screen Ur Barbiturates Screen Ur Phencyclidine Scrn Ur Amphetamines Screen U Benzodiazepines Scrn U Oth Cocaine Metabols U Cannabinoids Screen 02/08/18 02/08/18 02/08/18 17:39 17:39 18:00 WBC RBC Hgb Hct MCV MCH MCHC RDW Plt Count MPV Neut % (Auto) Lymph % (Auto) [place] % (Auto) Eos % (Auto) Baso % (Auto) Neut # (Auto) Lymph # (Auto) [place] # (Auto) Eos # (Auto) Baso # (Auto) Differential Comment APTT Puncture Site pCO2 pO2 HCO3 ABG pH ABG Total CO2 ABG O2 Saturation ABG Base Excess ABG Hemoglobin ABG Carboxyhemoglobin POC ABG HHb (Measured) ABG Methemoglobin Jamey Test ABG Potassium A-a O2 Difference Respiratory Index Hgb O2 Saturation Sodium Chloride Glucose Lactate Vent Mode Mechanical Rate FiO2 Tidal Volume PEEP Potassium Carbon Dioxide Anion Gap BUN Creatinine 1.7 H Est GFR ( Amer) 49 Est GFR (Non-Af Amer) 40 POC Glucose (mg/dL) 345 H Random Glucose Serum Osmolality 357 H Calcium Phosphorus Magnesium Total Bilirubin AST ALT Alkaline Phosphatase Ammonia Total Creatine Kinase CK-MB (Mass) Troponin I Total Protein Albumin Globulin Albumin/Globulin Ratio Procalcitonin Arterial Blood Potassium Urine Color Urine Clarity Urine pH Ur Specific [place] Urine Protein Urine Glucose (UA) Urine Ketones Urine Blood Urine Nitrate Urine Bilirubin Urine Urobilinogen Ur Leukocyte Esterase Urine WBC (Auto) Urine RBC (Auto) Ur Squamous Epith Cells Granular Casts (Auto) Urine Yeast (Budding) Urine Osmolality Ur Random Potassium Urine Opiates Screen Urine Methadone Screen Ur Barbiturates Screen Ur Phencyclidine Scrn Ur Amphetamines Screen U Benzodiazepines Scrn U Oth Cocaine Metabols U Cannabinoids Screen 02/08/18 02/08/18 02/08/18 19:02 20:30 20:47 WBC RBC Hgb Hct MCV MCH MCHC RDW Plt Count MPV Neut % (Auto) Lymph % (Auto) [place] % (Auto) Eos % (Auto) Baso % (Auto) Neut # (Auto) Lymph # (Auto) [place] # (Auto) Eos # (Auto) Baso # (Auto) Differential Comment APTT Puncture Site Rba pCO2 41 pO2 282 H HCO3 30.6 H ABG pH 7.49 H ABG Total CO2 32.5 H ABG O2 Saturation 99.2 H ABG Base Excess 7.2 H ABG Hemoglobin ABG Carboxyhemoglobin POC ABG HHb (Measured) ABG Methemoglobin Jamey Test Pos ABG Potassium 3.7 A-a O2 Difference 237.0 Respiratory Index 0.8 Hgb O2 Saturation Sodium 158.0 H Chloride 121.0 H Glucose 344 H Lactate 1.6 Vent Mode Prvc Mechanical Rate 16 FiO2 80.0 Tidal Volume 500 PEEP 5 Potassium Carbon Dioxide Anion Gap BUN Creatinine Est GFR ( Amer) Est GFR (Non-Af Amer) POC Glucose (mg/dL) 350 H Random Glucose Serum Osmolality Calcium Phosphorus Magnesium Total Bilirubin AST ALT Alkaline Phosphatase Ammonia Total Creatine Kinase CK-MB (Mass) Troponin I Total Protein Albumin Globulin Albumin/Globulin Ratio Procalcitonin 0.08 L Arterial Blood Potassium 3.7 Urine Color Urine Clarity Urine pH Ur Specific [place] Urine Protein Urine Glucose (UA) Urine Ketones Urine Blood Urine Nitrate Urine Bilirubin Urine Urobilinogen Ur Leukocyte Esterase Urine WBC (Auto) Urine RBC (Auto) Ur Squamous Epith Cells Granular Casts (Auto) Urine Yeast (Budding) Urine Osmolality Ur Random Potassium Urine Opiates Screen Urine Methadone Screen Ur Barbiturates Screen Ur Phencyclidine Scrn Ur Amphetamines Screen U Benzodiazepines Scrn U Oth Cocaine Metabols U Cannabinoids Screen 02/08/18 02/08/18 02/09/18 20:47 20:47 00:28 WBC 6.2 RBC 3.78 L Hgb 11.9 L Hct 36.2 MCV 95.8 H MCH 31.4 H MCHC 32.8 L RDW 13.2 Plt Count 98 L D MPV 11.7 Neut % (Auto) 67.6 Lymph % (Auto) 24.5 [place] % (Auto) 7.0 Eos % (Auto) 0.4 Baso % (Auto) 0.5 Neut # (Auto) 4.2 Lymph # (Auto) 1.5 [place] # (Auto) 0.4 Eos # (Auto) 0.0 Baso # (Auto) 0.0 Differential Comment APTT Puncture Site pCO2 pO2 HCO3 ABG pH ABG Total CO2 ABG O2 Saturation ABG Base Excess ABG Hemoglobin ABG Carboxyhemoglobin POC ABG HHb (Measured) ABG Methemoglobin Jamey Test ABG Potassium A-a O2 Difference Respiratory Index Hgb O2 Saturation Sodium 156 H Chloride 117 H Glucose Lactate Vent Mode Mechanical Rate FiO2 Tidal Volume PEEP Potassium 3.9 Carbon Dioxide 29 Anion Gap 14 BUN 47 H Creatinine 1.8 H Est GFR ( Amer) 46 Est GFR (Non-Af Amer) 38 POC Glucose (mg/dL) 415 H* Random Glucose 331 H Serum Osmolality Calcium 8.4 L Phosphorus 4.4 Magnesium 2.4 H Total Bilirubin 0.7 AST 22 ALT 30 Alkaline Phosphatase 61 Ammonia Total Creatine Kinase CK-MB (Mass) Troponin I Total Protein 5.6 L Albumin 2.7 L Globulin 2.9 Albumin/Globulin Ratio 0.9 L Procalcitonin Arterial Blood Potassium Urine Color Urine Clarity Urine pH Ur Specific [place] Urine Protein Urine Glucose (UA) Urine Ketones Urine Blood Urine Nitrate Urine Bilirubin Urine Urobilinogen Ur Leukocyte Esterase Urine WBC (Auto) Urine RBC (Auto) Ur Squamous Epith Cells Granular Casts (Auto) Urine Yeast (Budding) Urine Osmolality Ur Random Potassium Urine Opiates Screen Urine Methadone Screen Ur Barbiturates Screen Ur Phencyclidine Scrn Ur Amphetamines Screen U Benzodiazepines Scrn U Oth Cocaine Metabols U Cannabinoids Screen 02/09/18 02/09/18 02/09/18 00:31 04:30 04:45 WBC RBC Hgb Hct MCV MCH MCHC RDW Plt Count MPV Neut % (Auto) Lymph % (Auto) [place] % (Auto) Eos % (Auto) Baso % (Auto) Neut # (Auto) Lymph # (Auto) [place] # (Auto) Eos # (Auto) Baso # (Auto) Differential Comment APTT 177 H* Puncture Site pCO2 pO2 HCO3 ABG pH ABG Total CO2 ABG O2 Saturation ABG Base Excess ABG Hemoglobin ABG Carboxyhemoglobin POC ABG HHb (Measured) ABG Methemoglobin Jamey Test ABG Potassium A-a O2 Difference Respiratory Index Hgb O2 Saturation Sodium Chloride Glucose Lactate Vent Mode Mechanical Rate FiO2 Tidal Volume PEEP Potassium Carbon Dioxide Anion Gap BUN Creatinine Est GFR ( Amer) Est GFR (Non-Af Amer) POC Glucose (mg/dL) 370 H 403 H* Random Glucose Serum Osmolality Calcium Phosphorus Magnesium Total Bilirubin AST ALT Alkaline Phosphatase Ammonia Total Creatine Kinase CK-MB (Mass) Troponin I Total Protein Albumin Globulin Albumin/Globulin Ratio Procalcitonin Arterial Blood Potassium Urine Color Urine Clarity Urine pH Ur Specific [place] Urine Protein Urine Glucose (UA) Urine Ketones Urine Blood Urine Nitrate Urine Bilirubin Urine Urobilinogen Ur Leukocyte Esterase Urine WBC (Auto) Urine RBC (Auto) Ur Squamous Epith Cells Granular Casts (Auto) Urine Yeast (Budding) Urine Osmolality Ur Random Potassium Urine Opiates Screen Urine Methadone Screen Ur Barbiturates Screen Ur Phencyclidine Scrn Ur Amphetamines Screen U Benzodiazepines Scrn U Oth Cocaine Metabols U Cannabinoids Screen 02/09/18 02/09/18 02/09/18 04:45 04:45 05:26 WBC 6.9 RBC 3.73 L Hgb 11.7 L Hct 36.2 MCV 97.2 H MCH 31.4 H MCHC 32.3 L RDW 13.3 Plt Count 84 L MPV 11.7 Neut % (Auto) 67.5 Lymph % (Auto) 25.5 [place] % (Auto) 5.6 Eos % (Auto) 1.0 Baso % (Auto) 0.4 Neut # (Auto) 4.7 Lymph # (Auto) 1.8 [place] # (Auto) 0.4 Eos # (Auto) 0.1 Baso # (Auto) 0.0 Differential Comment APTT Puncture Site Rb pCO2 41 pO2 90 HCO3 29.9 H ABG pH 7.48 H ABG Total CO2 31.8 H ABG O2 Saturation 98.6 H ABG Base Excess 6.4 H ABG Hemoglobin 11.1 L ABG Carboxyhemoglobin 2.1 H POC ABG HHb (Measured) 1.4 ABG Methemoglobin 1.0 Jamey Test Na ABG Potassium A-a O2 Difference 144.0 Respiratory Index 1.6 Hgb O2 Saturation 95.6 Sodium 152 H Chloride 113 H Glucose Lactate Vent Mode Prvc Mechanical Rate 16 FiO2 40.0 Tidal Volume 500 PEEP 5 Potassium 3.6 Carbon Dioxide 28 Anion Gap 15 BUN 51 H Creatinine 1.8 H Est GFR ( Amer) 46 Est GFR (Non-Af Amer) 38 POC Glucose (mg/dL) Random Glucose 445 H* D Serum Osmolality Calcium 8.0 L Phosphorus Magnesium Total Bilirubin 0.8 AST 26 ALT 35 Alkaline Phosphatase 64 Ammonia Total Creatine Kinase 60 CK-MB (Mass) 0.99 Troponin I 0.0810 Total Protein 5.3 L Albumin 2.6 L Globulin 2.8 Albumin/Globulin Ratio 0.9 L Procalcitonin Arterial Blood Potassium Urine Color Urine Clarity Urine pH Ur Specific [place] Urine Protein Urine Glucose (UA) Urine Ketones Urine Blood Urine Nitrate Urine Bilirubin Urine Urobilinogen Ur Leukocyte Esterase Urine WBC (Auto) Urine RBC (Auto) Ur Squamous Epith Cells Granular Casts (Auto) Urine Yeast (Budding) Urine Osmolality Ur Random Potassium Urine Opiates Screen Urine Methadone Screen Ur Barbiturates Screen Ur Phencyclidine Scrn Ur Amphetamines Screen U Benzodiazepines Scrn U Oth Cocaine Metabols U Cannabinoids Screen 02/09/18 02/09/18 02/09/18 08:26 10:28 11:05 WBC RBC Hgb Hct MCV MCH MCHC RDW Plt Count MPV Neut % (Auto) Lymph % (Auto) [place] % (Auto) Eos % (Auto) Baso % (Auto) Neut # (Auto) Lymph # (Auto) [place] # (Auto) Eos # (Auto) Baso # (Auto) Differential Comment APTT Puncture Site pCO2 pO2 HCO3 ABG pH ABG Total CO2 ABG O2 Saturation ABG Base Excess ABG Hemoglobin ABG Carboxyhemoglobin POC ABG HHb (Measured) ABG Methemoglobin Jamey Test ABG Potassium A-a O2 Difference Respiratory Index Hgb O2 Saturation Sodium Chloride Glucose Lactate Vent Mode Mechanical Rate FiO2 Tidal Volume PEEP Potassium Carbon Dioxide Anion Gap BUN Creatinine Est GFR ( Amer) Est GFR (Non-Af Amer) POC Glucose (mg/dL) 392 H 371 H Random Glucose Serum Osmolality Calcium Phosphorus Magnesium Total Bilirubin AST ALT Alkaline Phosphatase Ammonia Total Creatine Kinase CK-MB (Mass) Troponin I Total Protein Albumin Globulin Albumin/Globulin Ratio Procalcitonin Arterial Blood Potassium Urine Color Urine Clarity Urine pH Ur Specific [place] Urine Protein Urine Glucose (UA) Urine Ketones Urine Blood Urine Nitrate Urine Bilirubin Urine Urobilinogen Ur Leukocyte Esterase Urine WBC (Auto) Urine RBC (Auto) Ur Squamous Epith Cells Granular Casts (Auto) Urine Yeast (Budding) Urine Osmolality Ur Random Potassium Urine Opiates Screen Negative Urine Methadone Screen Negative Ur Barbiturates Screen Negative Ur Phencyclidine Scrn Negative Ur Amphetamines Screen Negative U Benzodiazepines Scrn Positive U Oth Cocaine Metabols Negative U Cannabinoids Screen Negative 02/09/18 02/09/18 02/09/18 11:25 11:25 12:02 WBC 7.2 RBC 3.77 L Hgb 11.9 L Hct 36.5 MCV 96.7 H MCH 31.5 H MCHC 32.5 L RDW 13.1 Plt Count 77 L MPV 12.0 H Neut % (Auto) 73.1 Lymph % (Auto) 19.6 L [place] % (Auto) 4.9 Eos % (Auto) 1.3 Baso % (Auto) 1.1 Neut # (Auto) 5.3 Lymph # (Auto) 1.4 [place] # (Auto) 0.4 Eos # (Auto) 0.1 Baso # (Auto) 0.1 Differential Comment APTT 50 H D Puncture Site pCO2 pO2 HCO3 ABG pH ABG Total CO2 ABG O2 Saturation ABG Base Excess ABG Hemoglobin ABG Carboxyhemoglobin POC ABG HHb (Measured) ABG Methemoglobin Jamey Test ABG Potassium A-a O2 Difference Respiratory Index Hgb O2 Saturation Sodium Chloride Glucose Lactate Vent Mode Mechanical Rate FiO2 Tidal Volume PEEP Potassium Carbon Dioxide Anion Gap BUN Creatinine Est GFR ( Amer) Est GFR (Non-Af Amer) POC Glucose (mg/dL) Random Glucose Serum Osmolality Calcium Phosphorus Magnesium Total Bilirubin AST ALT Alkaline Phosphatase Ammonia 12 D Total Creatine Kinase CK-MB (Mass) Troponin I Total Protein Albumin Globulin Albumin/Globulin Ratio Procalcitonin Arterial Blood Potassium Urine Color Urine Clarity Urine pH Ur Specific [place] Urine Protein Urine Glucose (UA) Urine Ketones Urine Blood Urine Nitrate Urine Bilirubin Urine Urobilinogen Ur Leukocyte Esterase Urine WBC (Auto) Urine RBC (Auto) Ur Squamous Epith Cells Granular Casts (Auto) Urine Yeast (Budding) Urine Osmolality Ur Random Potassium Urine Opiates Screen Urine Methadone Screen Ur Barbiturates Screen Ur Phencyclidine Scrn Ur Amphetamines Screen U Benzodiazepines Scrn U Oth Cocaine Metabols U Cannabinoids Screen 02/09/18 02/09/18 02/09/18 12:16 13:06 14:08 WBC RBC Hgb Hct MCV MCH MCHC RDW Plt Count MPV Neut % (Auto) Lymph % (Auto) [place] % (Auto) Eos % (Auto) Baso % (Auto) Neut # (Auto) Lymph # (Auto) [place] # (Auto) Eos # (Auto) Baso # (Auto) Differential Comment APTT Puncture Site pCO2 pO2 HCO3 ABG pH ABG Total CO2 ABG O2 Saturation ABG Base Excess ABG Hemoglobin ABG Carboxyhemoglobin POC ABG HHb (Measured) ABG Methemoglobin Jamey Test ABG Potassium A-a O2 Difference Respiratory Index Hgb O2 Saturation Sodium Chloride Glucose Lactate Vent Mode Mechanical Rate FiO2 Tidal Volume PEEP Potassium Carbon Dioxide Anion Gap BUN Creatinine Est GFR ( Amer) Est GFR (Non-Af Amer) POC Glucose (mg/dL) 293 H 328 H 200 H Random Glucose Serum Osmolality Calcium Phosphorus Magnesium Total Bilirubin AST ALT Alkaline Phosphatase Ammonia Total Creatine Kinase CK-MB (Mass) Troponin I Total Protein Albumin Globulin Albumin/Globulin Ratio Procalcitonin Arterial Blood Potassium Urine Color Urine Clarity Urine pH Ur Specific [place] Urine Protein Urine Glucose (UA) Urine Ketones Urine Blood Urine Nitrate Urine Bilirubin Urine Urobilinogen Ur Leukocyte Esterase Urine WBC (Auto) Urine RBC (Auto) Ur Squamous Epith Cells Granular Casts (Auto) Urine Yeast (Budding) Urine Osmolality Ur Random Potassium Urine Opiates Screen Urine Methadone Screen Ur Barbiturates Screen Ur Phencyclidine Scrn Ur Amphetamines Screen U Benzodiazepines Scrn U Oth Cocaine Metabols U Cannabinoids Screen 02/09/18 15:04 WBC RBC Hgb Hct MCV MCH MCHC RDW Plt Count MPV Neut % (Auto) Lymph % (Auto) [place] % (Auto) Eos % (Auto) Baso % (Auto) Neut # (Auto) Lymph # (Auto) [place] # (Auto) Eos # (Auto) Baso # (Auto) Differential Comment APTT Puncture Site pCO2 pO2 HCO3 ABG pH ABG Total CO2 ABG O2 Saturation ABG Base Excess ABG Hemoglobin ABG Carboxyhemoglobin POC ABG HHb (Measured) ABG Methemoglobin Jamey Test ABG Potassium A-a O2 Difference Respiratory Index Hgb O2 Saturation Sodium Chloride Glucose Lactate Vent Mode Mechanical Rate FiO2 Tidal Volume PEEP Potassium Carbon Dioxide Anion Gap BUN Creatinine Est GFR ( Amer) Est GFR (Non-Af Amer) POC Glucose (mg/dL) 156 H Random Glucose Serum Osmolality Calcium Phosphorus Magnesium Total Bilirubin AST ALT Alkaline Phosphatase Ammonia Total Creatine Kinase CK-MB (Mass) Troponin I Total Protein Albumin Globulin Albumin/Globulin Ratio Procalcitonin Arterial Blood Potassium Urine Color Urine Clarity Urine pH Ur Specific [place] Urine Protein Urine Glucose (UA) Urine Ketones Urine Blood Urine Nitrate Urine Bilirubin Urine Urobilinogen Ur Leukocyte Esterase Urine WBC (Auto) Urine RBC (Auto) Ur Squamous Epith Cells Granular Casts (Auto) Urine Yeast (Budding) Urine Osmolality Ur Random Potassium Urine Opiates Screen Urine Methadone Screen Ur Barbiturates Screen Ur Phencyclidine Scrn Ur Amphetamines Screen U Benzodiazepines Scrn U Oth Cocaine Metabols U Cannabinoids Screen Assessment/Plan - Assessment and Plan (Free Text) Plan: Patient admitted to ICU for hypoxic respiratory failure. Above resident note reviewed and verified. -Hypoxic respiratory failrue: continue ventilatoin to keep spo2 >92, tolerating CPAP trials, not awake to extubate currently -PE: has h/o upper arm DVT: continue eliquis -THrombocytopenia: possible consumption, r/o HIT, off heparin -monirot for any bleeding -hyperntremia: placed NG tube tube increased free ater to 400 ml/4 hrs continue DVT ppx on eliquis pud ppx c time 45 minutes
[2018-02-09 09:03] LABS: BARBITURATES, UR NEGATIVE (NEGATIVE); OPIATES, UR NEGATIVE (NEGATIVE); PHENCYCLIDINE, UR NEGATIVE (NEGATIVE)
[2018-02-09] MEDS: Pantoprazole 40 mg Susp UD PO SCH (09:19)
--- NOTE | 2018-02-09 09:33 | RAD ---
HISTORY: intubated COMPARISON: 02/08/2018 FINDINGS: LUNGS: Curvilinear opacity in the right mid lung zone. Enlarged pulmonary arteries. PLEURA: Biapical pleural parenchymal thickening noted. No significant pleural effusions. CARDIOVASCULAR: Stable. OSSEOUS STRUCTURES: Degenerative changes. VISUALIZED UPPER ABDOMEN: Limited visualization. OTHER FINDINGS: ETT seen with the distal tip above the level of the rianna. NG tube noted with the distal tip coursing below the level of the diaphragm. Sternotomy wires. Surgical clips along the left heart border. IMPRESSION: Findings as above.
[2018-02-09] MEDS: WATER IVPB SCH ×2 (09:41→21:14)
[2018-02-09] MEDS: LEVETIRACETAM IVPB SCH ×2 (09:41→21:14)
[2018-02-09] MEDS: DEXTROSE 5% IVPB SCH ×2 (09:41→21:14)
[2018-02-09 09:43] LABS: BENZODIAZEPINES, UR POSITIVE (NEGATIVE)
--- NOTE | 2018-02-09 10:19 | PN ---
DATE: 02/08/2018 FOLLOWUP RENAL CONSULTATION LOCATION: The patient is located in [facility], now transferred to ICU. REASON FOR RENAL CONSULTATION: Hypernatremia, acute renal failure, and for further evaluation. REQUESTED BY: Arash Rose MD HISTORY OF PRESENT ILLNESS: Mr. Latif is a 67-year-old elderly male with a past medical history significant for hypertension, diabetes, CVA who was found to be on the bed with altered mental status, and the patient had witnessed seizure in the emergency room. Subsequently, intubated for airway protection and admitted to ICU. After hospitalization, the patient's course is complicated by fever and also positive right upper extremity DVT and also hypernatremia and polyuria secondary to uncontrolled diabetes which was gradually a corrected sodium, and subsequently, the patient was extubated and transferred to medical floor. The patient was scheduled for PEG tube placement and found to have a worsening hypernatremia and PEG tube placement was canceled and now renal consult requested for further evaluation and correction of the hypernatremia. The patient is not responding to verbal stimuli, not responding to deep painful stimuli. The patient's daughter is at bedside. PHYSICAL EXAMINATION: VITAL SIGNS: As follows, blood pressure this afternoon 146/75, pulse 102, respirations 20, temperature 100.5, saturation 97%. Height 5 feet 9 inches and weight is 224 pounds. GENERAL: Mr. Latif is 67 years old elderly obese male, well-built, well-nourished, not in distress. HEENT: Pupils normal, sluggishly reacting. Conjunctivae pink. Sclerae anicteric. No thyroid enlargement. LUNGS: Symmetric on both sides. Bilateral breath sounds present. No crackles. CVS: [place] at the fifth intercostal space, midclavicular line. S1, S2 audible. No murmur or gallop. ABDOMEN: Normal in appearance, soft, tympanic. No guarding. No rigidity. No hepatosplenomegaly. SOLUTION SPEC: The patient is lethargic and not responding to verbal stimuli or deep painful stimuli. Sensory and motor system unable to elicit. The patient does not respond to deep painful stimuli. EXTREMITIES: No cyanosis, no clubbing, no edema. MEDICATIONS: His current medications include as follows, acyclovir 750 mg IV every 12 hours, hydralazine 100 mg p.o. every 8 hours, aspirin 81 mg daily, Coreg 12.5 mg p.o. b.i.d., IV fluids with D5W at 125 mL/hour started this morning, DuoNeb inhaler every 6 hours, Flomax 0.4 mg daily, subcu heparin 5000 every 8 hours on hold, IV heparin started this evening, Lantus 20 units subcu b.i.d., Keppra 400 mg every 12 hours, cefepime 2 gm IV every 12 hours, Novolin R for sliding scale, Protonix 40 mg p.o. daily, Tylenol, and vancomycin 1 gm IV every 48 hours. LABORATORY DATA: Lab data include as follows, as of 02/08/2018, WBC 6.2, hemoglobin 11.9, hematocrit is 36.2, platelets 98. As of this morning, WBC 6.3, hemoglobin 13.5, hematocrit is 41.7, platelets 122, sodium is 159, and potassium 4.1, chloride 116, CO2 of 31, BUN 43, creatinine 1.5, glucose is 349, calcium 8.5, magnesium 2.5. Urine is yellow, hazy, pH 5, specific gravity 1.027, protein 2+, glucose 3+, ketones negative, blood negative, nitrites negative, bilirubin negative, urobilinogen normal, leukocyte esterase negative, wbc 2, rbc 5, yeast occasional, urine osmolality 764, urine potassium 63.3. The other laboratory data as of 01/22/2018, wound culture positive for enterococcus faecalis and Staph coag negative, and as of 01/26/2018, Staph coag negative. As of 02/02/2018, MRSA screening was negative. As of 02/01/2018, blood culture x2 negative day five. Chest x-ray as of 02/08/2018, in situ NG tube, the tip of which lies at the level of the EEG junction and should advance but these findings were discussed with the at approximately 04:40 p.m. with written down and rate back verification. No other significant changes. IMPRESSION: In summary, Mr. Latif is 67 years old elderly male with a history of hypertension, diabetes with a deep venous thrombosis in the right upper extremity with increased serum sodium, and increased BUN and creatinine, altered mental status. 1. Acute renal failure, picture consistent with prerenal azotemia. 2. Hypernatremia secondary to intravascular depletion secondary to osmotic diuresis, most likely secondary to uncontrolled diabetes. 3. Fever, rule out sepsis. PLAN: Start IV fluids of D5W with 125 mL/hour and start on free water by NG tube, 300 mL every 6 hours, also consider endocrinology consult for better control of the sugars, may need insulin drip. Overall prognosis is very poor. We will follow with you. Thank you for allowing me to participate in your patient's care. We will check urine lytes, osmolality, urine creatinine. Baldemar Ruiz MD
[2018-02-09 11:29] LABS: BASO # 0.1 K/uL (0.0-0.2); BASO % 1.1 % (0.0-2.0); EOS # 0.1 K/uL (0.0-0.7); EOS % 1.3 % (0.0-4.0); HEMOGLOBIN 11.9 g/dL (12.0-18.0); LYMPH # 1.4 K/uL (1.0-4.3); LYMPH % 19.6 % (20.0-40.0); MEAN CELL VOLUME 96.7 fL (80.0-94.0); MEAN CORPUSCULAR HEMOGLOBIN 31.5 pg (27.0-31.0); MEAN CORPUSCULAR HGB CONC 32.5 g/dL (33.0-37.0); MONO # 0.4 K/uL (0.0-0.8); MONO % 4.9 % (0.0-10.0); NEUT # 5.3 K/uL (1.8-7.0); NEUT % 73.1 % (50.0-75.0); NRBC % 0.2 % (0.0-2.0); RBC 3.77 Mil/uL (4.40-5.90); RED CELL DISTRIBUTION WIDTH 13.1 % (11.5-14.5); WHITE BLOOD COUNT 7.2 K/uL (4.8-10.8)
--- NOTE | 2018-02-09 14:13 | PN ---
DATE: 02/09/2018. LOCATION: ICU 7. SUBJECTIVE: This is a 67 years old male, seen in the intensive care unit due to intermittent period of shortness of breath, was orally intubated with NG tube is in place. The entire chart is reviewed including, but not limited to, the most recent lab and radiology study results, current and the previous medication list, current and previous medical events and today's chest x-ray initially showed opacity in the right lung with large pulmonary arteries with G-tube is in place. Most recent lab results showed hemoglobin 11.9, hematocrit 36.5, thrombocytosis of 77, PTT 50. The patient had been on heparin with abnormal ABGs. Sodium 152, BUN 51, creatinine 1.8, blood glucose level 293, calcium 8 with albumin 2.9, total protein 5.3. Case discussed with the staff at length as well as all the consultants. It has to be mentioned that the patient had saddle embolus extending into both right and left lower pulmonary arteries on CAT scan angio. PHYSICAL EXAMINATION: GENERAL: A 67 years old male, intubated, sedated. VITAL SIGNS: Afebrile with pulse of 86 and blood pressure 120/66. HEENT: Show pale dry oral mucosal membrane. Nonicteric sclerae. LUNGS: Scattered crepitation, decreased air entry at bases. HEART: Positive S1 and S2. ABDOMEN: Soft with mild distention. Bowel sounds are hypoactive. EXTREMITIES: With lower extremities mild edematous changes. NEURO: Peripheral pulses are present but weak bilaterally. IMPRESSION: 1. Pneumonia. 2. Pulmonary embolus by CAT scan angio. 3. Malnutrition with hypoalbuminemia. 4. Known history of seizure disorder, dysphagia, failure to thrive. 5. Known history of coronary artery disease status post coronary artery bypass graft, history of hypertension, hyperlipidemia. 6. Electrolyte imbalance with hypernatremia. 7. Upper endoscopy by recent EGD. SUGGESTIONS: 1. Continue current management. 2. Again the patient will need gastrostomy tube inserted surgically. 3. Further recommendation to follow up. Jaya Glass MD
--- NOTE | 2018-02-09 16:08 | RAD ---
PROCEDURE: CHEST RADIOGRAPH, 1 VIEW HISTORY: NGT placement COMPARISON: 02/09/2018 at 7:10 a.m. FINDINGS: LUNGS: Hazy opacity in the lung bases with a curvilinear opacity in the right mid lung zone. Vascular congestion. PLEURA: No pneumothorax. No significant pleural fluid. Macro pleura CARDIOVASCULAR: Enlarged heart, stable. OSSEOUS STRUCTURES: The osseous structures demonstrate degenerative changes. VISUALIZED UPPER ABDOMEN: Upper abdomen is suboptimally evaluated. OTHER FINDINGS: ET tube with the distal tip above the rianna. Sternotomy wires. Feeding tube noted with the distal tip coursing below the diaphragm. Pacer pads again noted. IMPRESSION: Findings as above.
--- NOTE | 2018-02-09 17:23 | CP.PCM.PN ---
Subjective - Date & Time of Evaluation Date of Evaluation: 02/09/18 Time of Evaluation: 09:00 - Subjective Subjective: lethargic on vent NAD episode of respiratory distress last night CT of the chest showed bilateral PE. MRI of the brain was done which showed no acute intracranial findings. No definite signs of infection Consider LP if neuro agrees Objective - Vital Signs/Intake and Output Vital Signs (last 24 hours): Temp Pulse Resp BP Pulse Ox 98.4 F 78 22 100/54 L 100 02/09/18 16:00 02/09/18 16:00 02/09/18 16:00 02/09/18 15:58 02/09/18 16:00 Intake and Output: 02/09/18 02/09/18 06:59 18:59 Intake Total 2383.6 2556.9 Output Total 1830 720 Balance 553.6 1836.9 - Medications Medications: Current Medications Acetaminophen (Tylenol 650mg/20.3ml Solution Ud) 650 mg NG Q6 PRN PRN Reason: GIVE FOR TEMP. 100*F OR ABOVE Last Admin: 02/05/18 20:48 Dose: 650 mg Albuterol/Ipratropium (Duoneb 3 Mg/0.5 Mg (3 Ml) Ud) 3 ml INH RQ6 [facility] Last Admin: 02/09/18 13:25 Dose: 3 ml Apixaban (Eliquis) 10 mg PO BID [facility] Stop: 02/16/18 18:01 Aspirin (Aspirin Chewable) 81 mg PO DAILY [facility] Last Admin: 02/09/18 09:18 Dose: Not Given Carvedilol (Coreg) 12.5 mg PO BID [facility] Last Admin: 02/09/18 09:41 Dose: 12.5 mg Hydralazine HCl (Apresoline) 100 mg PO Q8 [facility] Last Admin: 02/09/18 13:58 Dose: Not Given Dextrose (Dextrose 5% In Water 1000 Ml) 1,000 mls @ 125 mls/hr IV .Q8H [facility] Last Admin: 02/09/18 10:05 Dose: Not Given Levetiracetam 500 mg/ Dextrose 55 mls @ 420 mls/hr IVPB Q12H [facility] Last Admin: 02/09/18 09:41 Dose: 420 mls/hr Vancomycin HCl 1 gm/ Dextrose 250 mls @ 166.7 mls/hr IVPB Q48H [facility] PRN Reason: Protocol Last Admin: 02/08/18 21:50 Dose: 166.7 mls/hr Cefepime HCl (Maxipime Iv 2 Gm Premix) 2 gm in 100 mls @ 200 mls/hr IVPB Q12H [facility] PRN Reason: Protocol Stop: 02/13/18 19:01 Last Admin: 02/09/18 06:17 Dose: 200 mls/hr Acyclovir 750 mg/ Dextrose 250 mls @ 100 mls/hr IV Q12H [facility] PRN Reason: Protocol Last Admin: 02/09/18 08:07 Dose: 100 mls/hr Insulin Human Regular 100 unit (/ Sodium Chloride) 100 mls @ 2 mls/hr IV .Q24H PRN; Protocol PRN Reason: PER PROTOCOL Last Titration: 02/09/18 16:34 Dose: 0 unit/hr, 0 mls/hr Insulin Glargine (Lantus) 20 unit SC Q12H [facility] Last Admin: 02/09/18 08:30 Dose: 20 u Tamsulosin HCl (Flomax) 0.4 mg PO DAILY [facility] Last Admin: 02/09/18 09:19 Dose: Not Given - Labs Labs: 02/09/18 11:25 02/09/18 04:45 PT 12.4 SECONDS (9.7-12.2) H 02/02/18 06:19 INR 1.1 02/02/18 06:19 APTT 50 SECONDS (21-34) H D 02/09/18 12:02 - Constitutional Appears: Confused, Chronically Ill - Head Exam Head Exam: NORMOCEPHALIC - Eye Exam Eye Exam: absent: Scleral icterus - ENT Exam ENT Exam: Mucous Membranes Dry - Neck Exam Neck Exam: absent: Lymphadenopathy - Respiratory Exam Respiratory Exam: Decreased Breath Sounds, Rhonchi - Cardiovascular Exam Cardiovascular Exam: REGULAR RHYTHM, +S1, +S2 - GI/Abdominal Exam GI & Abdominal Exam: Distended, Soft - Rectal Exam Rectal Exam: Deferred - Exam Exam: NORMAL INSPECTION - Extremities Exam Extremities Exam: Pedal Edema. absent: Tenderness - Back Exam Back Exam: absent: CVA tenderness (L), CVA tenderness (R) - Neurological Exam Neurological Exam: Altered Neuro motor strength exam: Left Upper Extremity: 2/1, Right Upper Extremity: 2/1 , Left Lower Extremity: 2/1, Right Lower Extremity: 12/21 - Psychiatric Exam Psychiatric exam: Depressed - Skin Skin Exam: Dry Assessment and Plan (1) Sepsis Status: Acute (2) Sepsis Status: Acute (3) COPD (chronic obstructive pulmonary disease) Status: Acute (4) Congestive heart failure Status: Acute (5) Diabetes Status: Acute (6) Encephalopathy Status: Acute - Assessment and Plan (Free Text) Assessment: s/p PE ams resp failure multiple CVA cont iv antibiotics and vent support recultured / results pending
--- NOTE | 2018-02-09 17:29 | PCM.PROC ---
Procedures Attestation:: I certify that I have explained the specified Operation(s) or Procedure(s), risks, benefits and reasonable alternatives to the Patient and/or other person responsible. The opportunity was given to ask questions and all questions answered - Central Line Placement Internal Jugular Aseptic technique was employed throughout the procedure: Hand Hygiene done prior to procedure, Full sterile barriers (mask, hair cover, sterile gown, sterile gloves), Full body sterile drape, Chloraprep Antiseptic: 30 second prep for IJ or SC sites CVP Time Out Performed: Yes Pt. Placed on Pulse Ox Monitor: Yes Central Line Prep: Chlorhexidine-Alcohol Combination Local Anesthesia Used: Lidocaine 1% Ultrasound Used for Placement: Yes Central Line Lumen Inserted: triple Central Line Length: 20 cm Post Procedure: Sutured in Place, Good Blood Return, All Ports Aspirated, Flushed, Capped, Sterile Dressing Applied Secured by: Suture Post procedure dressing: Chlorhexidine disc (Biopatch) Post Procedure X-Ray: Yes Patient Tolerated Procedure: Well Immediate Complications: Catheter Malposition (Central line removed at the bedside. Hemostasis achieved.)
[2018-02-09] MEDS: (Novolog) Insulin Aspart, Recombinant 100 u/ml 10 ml vial SC SCH (19:05)
--- NOTE | 2018-02-09 19:59 | CP.PCM.PN ---
Subjective - Date & Time of Evaluation Date of Evaluation: 02/09/18 Time of Evaluation: 19:59 - Subjective Subjective: pt is seen and examined, follow up consult is dictated #[id number] Objective - Vital Signs/Intake and Output Vital Signs (last 24 hours): Temp Pulse Resp BP Pulse Ox 98.4 F 74 17 99/53 L 100 02/09/18 16:00 02/09/18 19:00 02/09/18 19:00 02/09/18 18:58 02/09/18 19:00 Intake and Output: 02/09/1818 18:59 06:59 Intake Total 3306.9 225 Output Total 840 Balance 2466.9 225 - Medications Medications: Current Medications Acetaminophen (Tylenol 650mg/20.3ml Solution Ud) 650 mg NG Q6 PRN PRN Reason: GIVE FOR TEMP. 100*F OR ABOVE Last Admin: 02/05/18 20:48 Dose: 650 mg Albuterol/Ipratropium (Duoneb 3 Mg/0.5 Mg (3 Ml) Ud) 3 ml INH RQ6 [facility] Last Admin: 02/09/18 19:31 Dose: 3 ml Apixaban (Eliquis) 10 mg PO BID [facility] Stop: 02/16/18 18:01 Last Admin: 02/09/18 18:33 Dose: 10 mg Aspirin (Aspirin Chewable) 81 mg PO DAILY [facility] Last Admin: 02/09/18 09:18 Dose: Not Given Carvedilol (Coreg) 12.5 mg PO BID [facility] Last Admin: 02/09/18 18:33 Dose: 12.5 mg Hydralazine HCl (Apresoline) 100 mg PO Q8 [facility] Last Admin: 02/09/18 13:58 Dose: Not Given Dextrose (Dextrose 5% In Water 1000 Ml) 1,000 mls @ 125 mls/hr IV .Q8H [facility] Last Admin: 02/09/18 18:33 Dose: 125 mls/hr Levetiracetam 500 mg/ Dextrose 55 mls @ 420 mls/hr IVPB Q12H [facility] Last Admin: 02/09/18 09:41 Dose: 420 mls/hr Vancomycin HCl 1 gm/ Dextrose 250 mls @ 166.7 mls/hr IVPB Q48H [facility] PRN Reason: Protocol Last Admin: 02/08/18 21:50 Dose: 166.7 mls/hr Cefepime HCl (Maxipime Iv 2 Gm Premix) 2 gm in 100 mls @ 200 mls/hr IVPB Q12H [facility] PRN Reason: Protocol Stop: 02/13/18 19:01 Last Admin: 02/09/18 18:34 Dose: 200 mls/hr Acyclovir 750 mg/ Dextrose 250 mls @ 100 mls/hr IV Q12H [facility] PRN Reason: Protocol Last Admin: 02/09/18 08:07 Dose: 100 mls/hr Insulin Aspart (Novolog) 0 unit SC Q6 [facility] PRN Reason: Protocol Last Admin: 02/09/18 19:05 Dose: 2 unit Insulin Glargine (Lantus) 20 unit SC Q12H [facility] Last Admin: 02/09/18 19:04 Dose: 20 u Tamsulosin HCl (Flomax) 0.4 mg PO DAILY [facility] Last Admin: 02/09/18 09:19 Dose: Not Given - Labs Labs: 02/09/18 11:25 02/09/18 04:45 PT 12.4 SECONDS (9.7-12.2) H 02/02/18 06:19 INR 1.1 02/02/18 06:19 APTT 50 SECONDS (21-34) H D 02/09/18 12:02
--- NOTE | 2018-02-09 23:44 | CP.PCM.PN ---
Subjective - Date & Time of Evaluation Date of Evaluation: 02/09/18 Time of Evaluation: 19:15 - Subjective Subjective: pt seen and evaluated at bedside Objective - Vital Signs/Intake and Output Vital Signs (last 24 hours): Temp Pulse Resp BP Pulse Ox 98.5 F 79 16 93/37 L 98 02/09/18 20:00 02/09/18 23:00 02/09/18 23:00 02/09/18 22:58 02/09/18 23:00 Intake and Output: 02/09/18 02/10/18 18:59 06:59 Intake Total 3306.9 1585 Output Total 840 120 Balance 2466.9 1465 - Medications Medications: Current Medications Acetaminophen (Tylenol 650mg/20.3ml Solution Ud) 650 mg NG Q6 PRN PRN Reason: GIVE FOR TEMP. 100*F OR ABOVE Last Admin: 02/05/18 20:48 Dose: 650 mg Albuterol/Ipratropium (Duoneb 3 Mg/0.5 Mg (3 Ml) Ud) 3 ml INH RQ6 [facility] Last Admin: 02/09/18 19:31 Dose: 3 ml Apixaban (Eliquis) 10 mg PO BID [facility] Stop: 02/16/18 18:01 Last Admin: 02/09/18 18:33 Dose: 10 mg Aspirin (Aspirin Chewable) 81 mg PO DAILY [facility] Last Admin: 02/09/18 09:18 Dose: Not Given Carvedilol (Coreg) 12.5 mg PO BID [facility] Last Admin: 02/09/18 18:33 Dose: 12.5 mg Hydralazine HCl (Apresoline) 100 mg PO Q8 [facility] Last Admin: 02/09/18 21:13 Dose: Not Given Dextrose (Dextrose 5% In Water 1000 Ml) 1,000 mls @ 125 mls/hr IV .Q8H [facility] Last Admin: 02/09/18 18:33 Dose: 125 mls/hr Levetiracetam 500 mg/ Dextrose 55 mls @ 420 mls/hr IVPB Q12H [facility] Last Admin: 02/09/18 21:14 Dose: 420 mls/hr Vancomycin HCl 1 gm/ Dextrose 250 mls @ 166.7 mls/hr IVPB Q48H [facility] PRN Reason: Protocol Last Admin: 02/08/18 21:50 Dose: 166.7 mls/hr Cefepime HCl (Maxipime Iv 2 Gm Premix) 2 gm in 100 mls @ 200 mls/hr IVPB Q12H [facility] PRN Reason: Protocol Stop: 02/13/18 19:01 Last Admin: 02/09/18 18:34 Dose: 200 mls/hr Acyclovir 750 mg/ Dextrose 250 mls @ 100 mls/hr IV Q12H [facility] PRN Reason: Protocol Last Admin: 02/09/18 20:13 Dose: 100 mls/hr Insulin Aspart (Novolog) 0 unit SC Q6 [facility] PRN Reason: Protocol Last Admin: 02/09/18 19:05 Dose: 2 unit Insulin Glargine (Lantus) 20 unit SC Q12H [facility] Last Admin: 02/09/18 19:04 Dose: 20 u Tamsulosin HCl (Flomax) 0.4 mg PO DAILY [facility] Last Admin: 02/09/18 09:19 Dose: Not Given - Labs Labs: 02/09/18 11:25 02/09/18 04:45 PT 12.4 SECONDS (9.7-12.2) H 02/02/18 06:19 INR 1.1 02/02/18 06:19 APTT 50 SECONDS (21-34) H D 02/09/18 12:02 Assessment and Plan (1) Status epilepticus Status: Acute (2) COPD (chronic obstructive pulmonary disease) Status: Acute (3) Congestive heart failure Status: Acute (4) Diabetes Status: Acute (5) Hypernatremia Status: Acute (6) Acute respiratory failure Status: Acute
[2018-02-10] MEDS: (Novolog) Insulin Aspart, Recombinant 100 u/ml 10 ml vial SC SCH ×4 (00:18→18:48)
[2018-02-10] MEDS: Albuterol-Ipratrop 3 mg / 0.5 (3 ml) UD INH SCH ×4 (02:16→19:51)
[2018-02-10 05:52] LABS: ARTERIAL BLOOD GAS HCO3 28.1 mmol/L (21-28); ARTERIAL BLOOD GAS HEMOGLOBIN 10.6 g/dL (11.7-17.4); ARTERIAL BLOOD GAS O2 SAT 97.1 % (95-98); ARTERIAL BLOOD GAS PCO2 40 mm/Hg (35-45); ARTERIAL BLOOD GAS PH 7.46 (7.35-7.45); ARTERIAL BLOOD GAS PO2 71 mm/Hg (80-100); ARTERIAL BLOOD GAS TCO2 29.6 mmol/L (22-28)
[2018-02-10] MEDS: Cefepime IV 2 gm in Dextrose 2 GM/100 ML BAG IVPB SCH ×2 (06:08→18:47)
[2018-02-10 06:29] LABS: BASO % 0.4 % (0.0-2.0); EOS # 0.2 K/uL (0.0-0.7); EOS % 3.6 % (0.0-4.0); HEMOGLOBIN 10.6 g/dL (12.0-18.0); LYMPH # 1.1 K/uL (1.0-4.3); LYMPH % 17.7 % (20.0-40.0); MEAN CELL VOLUME 94.8 fL (80.0-94.0); MEAN CORPUSCULAR HEMOGLOBIN 31.9 pg (27.0-31.0); MEAN CORPUSCULAR HGB CONC 33.6 g/dL (33.0-37.0); MEAN PLATELET VOLUME 12.1 fL (7.2-11.7); MONO # 0.3 K/uL (0.0-0.8); MONO % 4.5 % (0.0-10.0); NEUT # 4.5 K/uL (1.8-7.0); NEUT % 73.8 % (50.0-75.0); NRBC % 0.2 % (0.0-2.0); RBC 3.33 Mil/uL (4.40-5.90); RED CELL DISTRIBUTION WIDTH 12.5 % (11.5-14.5); WHITE BLOOD COUNT 6.1 K/uL (4.8-10.8)
[2018-02-10 06:32] LABS: ALB/GLOB RATIO 1.2 (1.0-2.1); ALBUMIN 2.5 g/dL (3.5-5.0); ALT/SGPT 37 U/L (21-72); AST/SGOT 24 U/L (17-59); BLOOD UREA NITROGEN 44 mg/dL (9-20); GFR AFRICAN-AMERICAN > 60; GFR NON-AFRICAN AMERICAN > 60
[2018-02-10] MEDS: Potassium Chloride 20 mEq/15 ml LIQ UD PO SCH ×2 (07:45→12:47)
[2018-02-10] MEDS: (Lantus) Insulin Glargine, Recombinant SC SCH ×2 (08:02→20:18)
--- NOTE | 2018-02-10 08:20 | RAD ---
HISTORY: TLC COMPARISON: No prior. FINDINGS: The TLC is cord in the proximal SVC. The endotracheal tube terminates 1 cm proximal to the rianna. The nasogastric tube terminates in the stomach. LUNGS: Again seen is discoid atelectasis in the right mid lung. The left lung is clear. PLEURA: No significant pleural effusion identified, no pneumothorax apparent. CARDIOVASCULAR: Stable mild cardiomegaly. Atherosclerotic aortic arch calcifications are present. . Status post CABG. OSSEOUS STRUCTURES: No significant abnormalities. VISUALIZED UPPER ABDOMEN: Normal. OTHER FINDINGS: None. IMPRESSION: 1. TLC is coiled in the proximal SVC. 2. Endotracheal tube terminates 10 mm proximal to the rianna. 3. No change in discoid atelectasis in the right mid lung.
--- NOTE | 2018-02-10 08:22 | RAD ---
HISTORY: TLC COMPARISON: 02/09/2018 FINDINGS: The left IJV line terminates in the SVC. The endotracheal tube terminates 3 cm proximal to the rianna. The nasogastric tube terminates in the stomach. LUNGS: There is redemonstration of discoid atelectasis in the right mid lung. The left lung is clear. PLEURA: No significant pleural effusion identified, no pneumothorax apparent. CARDIOVASCULAR: Stable. OSSEOUS STRUCTURES: No significant abnormalities. VISUALIZED UPPER ABDOMEN: Normal. OTHER FINDINGS: None. IMPRESSION: The left IJV line terminates in the SVC. Stable position of the endotracheal and nasogastric tubes. Stable discoid atelectasis in the right mid lung.
--- NOTE | 2018-02-10 08:53 | RAD ---
HISTORY: f-up,intubated COMPARISON: 02/09/2018. FINDINGS: The endotracheal tube terminates 9 mm proximal to the rianna. The left IJV line terminates in the SVC. The nasogastric tube terminates in the stomach. LUNGS: There is discoid atelectasis in the right mid lung. The left lung is clear. PLEURA: No significant pleural effusion identified, no pneumothorax apparent. CARDIOVASCULAR: The cardiomediastinal silhouette is stable. OSSEOUS STRUCTURES: No significant abnormalities. VISUALIZED UPPER ABDOMEN: Normal. OTHER FINDINGS: None. IMPRESSION: Endotracheal tube terminates 9 mm proximal to the rianna. No other significant change.
[2018-02-10] MEDS: ACYCLOVIR IV SCH ×2 (09:56→21:17)
[2018-02-10] MEDS: LEVETIRACETAM IVPB SCH ×2 (09:56→21:19)
[2018-02-10] MEDS: DEXTROSE 5% IV SCH ×2 (09:56→21:17)
[2018-02-10] MEDS: DEXTROSE 5% IVPB SCH ×2 (09:56→21:19)
[2018-02-10] MEDS: WATER IVPB SCH ×2 (09:56→21:19)
[2018-02-10] MEDS: WATER IV SCH ×2 (09:56→21:17)
--- NOTE | 2018-02-10 12:08 | PN ---
DATE: LOCATION: ICU 7. SUBJECTIVE: This is a 67-year-old male seen very early in rounds, nonverbal, without significant clinical changes, had been on heparin drip which was discontinued as well as insulin drip. The entire chart is reviewed including, but not limited to the most recent lab and radiology study results, current and the previous medication list, current and the previous medical events. Case discussed with the staff. Today's lab showed hemoglobin 10.6, hematocrit 31.6, with thrombocytopenia of 62, with abnormal ABGs and low potassium 3.3, blood glucose level 309, but with normal liver function tests, albumin 2.2, total protein 4.6. PHYSICAL EXAMINATION: GENERAL: This is a 67-year-old male. VITAL SIGNS: Afebrile, with pulse of 72, respiratory rate of 20 to 22, blood pressure 118/56. HEENT: Showed pale dry oral mucous membranes. Nonicteric sclerae. LUNGS: Few scattered crepitations, decreased air entry at bases. HEART: Positive S1 and S2 with increased rate. ABDOMEN: With [id number] distention. Bowel sounds are present. No mass or organomegaly. No rebound tenderness or guarding. EXTREMITIES: Without significant clubbing, cyanosis, or edema. NEUROLOGIC: No reported new neurological deficits, sensory or motor. No new focal deficits. Peripheral pulses are present, but weak bilaterally. IMPRESSION: 1. Pneumonia. 2. Malnutrition with hypoalbuminemia, hypoproteinemia. 3. Peptic ulcer disease. 4. Known history of seizure disorder, dysphasia with failure to thrive. 5. Coronary artery disease, was status post coronary artery bypass graft, history of hyperlipidemia with hypertension. 6. Electrolyte imbalance with hypokalemia. 7. Gastritis by recent esophagogastroduodenoscopy. SUGGESTIONS: 1. Continue current management. 2. Surgical reevaluation for potential gastrostomy tube insertion, to be done surgically. Jaya Glass MD cc: Jaya Glass MD
--- NOTE | 2018-02-10 14:35 | CP.PCM.PN ---
Subjective - Date & Time of Evaluation Date of Evaluation: 02/10/18 Time of Evaluation: 14:35 - Subjective Subjective: pt is seen and examined, follow up consult is dictated #[id number] repeat bmp Objective - Vital Signs/Intake and Output Vital Signs (last 24 hours): Temp Pulse Resp BP Pulse Ox 98.7 F 73 21 135/69 98 02/10/18 04:00 02/10/18 09:00 02/10/18 09:00 02/10/18 09:56 02/10/18 09:00 Intake and Output: 02/10/18 02/10/18 06:59 18:59 Intake Total 3570 625 Output Total 650 100 Balance 2920 525 - Medications Medications: Current Medications Acetaminophen (Tylenol 650mg/20.3ml Solution Ud) 650 mg NG Q6 PRN PRN Reason: GIVE FOR TEMP. 100*F OR ABOVE Last Admin: 02/05/18 20:48 Dose: 650 mg Albuterol/Ipratropium (Duoneb 3 Mg/0.5 Mg (3 Ml) Ud) 3 ml INH RQ6 [facility] Last Admin: 02/10/18 13:55 Dose: 3 ml Apixaban (Eliquis) 10 mg PO BID [facility] Stop: 02/16/18 18:01 Last Admin: 02/10/18 09:56 Dose: 10 mg Aspirin (Aspirin Chewable) 81 mg PO DAILY [facility] Last Admin: 02/10/18 09:56 Dose: 81 mg Carvedilol (Coreg) 12.5 mg PO BID [facility] Last Admin: 02/10/18 09:56 Dose: 12.5 mg Hydralazine HCl (Apresoline) 100 mg PO Q8 [facility] Last Admin: 02/10/18 06:08 Dose: 100 mg Levetiracetam 500 mg/ Dextrose 55 mls @ 420 mls/hr IVPB Q12H [facility] Last Admin: 02/10/18 09:56 Dose: 420 mls/hr Vancomycin HCl 1 gm/ Dextrose 250 mls @ 166.7 mls/hr IVPB Q48H [facility] PRN Reason: Protocol Last Admin: 02/08/18 21:50 Dose: 166.7 mls/hr Cefepime HCl (Maxipime Iv 2 Gm Premix) 2 gm in 100 mls @ 200 mls/hr IVPB Q12H [facility] PRN Reason: Protocol Stop: 02/13/18 19:01 Last Admin: 02/10/18 06:08 Dose: 200 mls/hr Acyclovir 750 mg/ Dextrose 250 mls @ 100 mls/hr IV Q12H [facility] PRN Reason: Protocol Last Admin: 02/10/18 09:56 Dose: 100 mls/hr Insulin Aspart (Novolog) 0 unit SC Q6 [facility] PRN Reason: Protocol Last Admin: 02/10/18 06:07 Dose: 8 unit Insulin Glargine (Lantus) 20 unit SC Q12H [facility] Last Admin: 02/10/18 08:02 Dose: 20 u Tamsulosin HCl (Flomax) 0.4 mg PO DAILY [facility] Last Admin: 02/10/18 10:01 Dose: Not Given - Labs Labs: 02/10/18 06:15 02/10/18 06:14 PT 12.4 SECONDS (9.7-12.2) H 02/02/18 06:19 INR 1.1 02/02/18 06:19 APTT 50 SECONDS (21-34) H D 02/09/18 12:02
[2018-02-10 15:39] LABS: BLOOD UREA NITROGEN 36 mg/dL (9-20); CALCIUM 7.5 mg/dl (8.6-10.4); GFR AFRICAN-AMERICAN > 60; GFR NON-AFRICAN AMERICAN > 60
--- NOTE | 2018-02-10 18:17 | CP.CCUPN ---
CCU Subjective - Physician Review Events Since Last Encounter (Free Text): 02/11/18 15:51 Patient examined at bedside. Currently on ventilator. Patient is spontaneously moving the upper extremities. He is able to focus on and off. But mostly he is kind of sleepy. Off sedation. Sodium is improving On examination: Vital signs stable. Chest good air entry irregular heart sounds nontender abdomen extremities edema Patient is still on ventilator. CPAP trial tolerating. Labs reviewed Assessment/plan: Patient is here 67 male with recurrent episodes of seizure activities. Heart disease. Chronic renal failure. Admitted the pneumonia last time. Also sepsis. Patient was intubated and extubated and doing the last intensive care unit monitoring. Patient was recovering in the floor, become unresponsive, intubated now on ventilator. Patient is responding. Patient may be stuporous at this time. Patient is still unstable to extubate at this time. We'll continue to monitor. I spoke to the patient's daughter in detail. May need a tracheostomy and feeding tube CCU Objective - Vital Signs / Intake & Output Vital Signs (Last 4 hours): Vital Signs Temp Pulse Resp BP Pulse Ox 02/10/18 17:00 78 16 99 02/10/18 16:58 79 14 141/57 L 100 02/10/18 16:00 97.6 F 74 19 98 02/10/18 15:58 77 17 94/45 L 98 02/10/18 15:00 76 20 98 02/10/18 14:58 78 24 133/53 L 98 Intake and Output (Last 8hrs): Intake & Output 02/10/18 02/10/18 02/10/18 06:59 14:59 22:59 Intake Total 2150 875 100 Output Total 450 352 100 Balance 1700 523 0 Weight 205 lb Intake: Intake, IV Amount 1000 475 0 Left Medial Port Internal 100 0 Jugular Left Proximal Port 1000 375 Internal Jugular Tube Feeding 350 400 100 Other 800 Output: Urine 450 350 100 2-way Urethral 450 350 100 Stool 2 Other: # Bowel Movements 1 - Physical Exam Head: Positive for: Atraumatic, Normocephalic Pupils: Positive for: PERRL Conjunctiva: Positive for: Normal Mouth: Positive for: Moist Mucous Membranes, Other (ETT) Neck: Positive for: Normal Range of Motion Respiratory/Chest: Positive for: Clear to Auscultation, Tachypneic. Negative for: Respiratory Distress Cardiovascular: Positive for: Regular Rate and Rhythm, Normal S1, S2. Negative for: Tachycardic Abdomen: Positive for: Normal Bowel Sounds, Other (Obese). Negative for: Tenderness, Distention, Peritoneal Signs Lower Extremity: Positive for: Normal Inspection Neurological: Positive for: Other (Moves all extremities) Skin: Positive for: Warm, Dry Psychiatric: Positive for: Alert - Medications Active Medications: Active Medications Generic Name Dose Route Start Last Admin Trade Name Freq PRN Reason Stop Dose Admin Acetaminophen 650 mg 01/19/18 00:50 02/05/18 20:48 Tylenol 650mg/20.3ml Solution Ud NG 650 mg Q6 PRN Administration GIVE FOR TEMP. 100*F OR ABOVE Albuterol/Ipratropium 3 ml 01/26/18 20:00 02/10/18 13:55 Duoneb 3 Mg/0.5 Mg (3 Ml) Ud INH 3 ml RQ6 [facility] Administration Apixaban 10 mg 02/09/18 18:00 02/10/18 09:56 Eliquis PO 02/16/18 18:01 10 mg BID [facility] Administration Aspirin 81 mg 01/17/18 10:00 02/10/18 09:56 Aspirin Chewable PO 81 mg DAILY [facility] Administration Carvedilol 12.5 mg 01/22/18 09:07 02/10/18 09:56 Coreg PO 12.5 mg BID [facility] Administration Hydralazine HCl 100 mg 02/03/18 00:29 02/10/18 06:08 Apresoline PO 100 mg Q8 [facility] Administration Levetiracetam 500 mg/ Dextrose 55 mls @ 420 mls/hr 02/08/18 22:00 02/10/18 09 :56 IVPB 420 mls/hr Q12H [facility] Administration Vancomycin HCl 1 gm/ Dextrose 250 mls @ 166.7 mls/hr 02/08/18 19:30 02/08/18 21:50 IVPB 166.7 mls/hr Q48H [facility] Administration Protocol Cefepime HCl 2 gm in 100 mls @ 200 mls/hr 02/08/18 19:00 02/10/18 06:08 Maxipime Iv 2 Gm Premix IVPB 02/13/18 19:01 200 mls/hr Q12H [facility] Administration Protocol Acyclovir 750 mg/ Dextrose 250 mls @ 100 mls/hr 02/08/18 20:00 02/10/18 09:56 IV 100 mls/hr Q12H [facility] Administration Protocol Insulin Aspart 0 unit 02/09/18 18:56 02/10/18 06:07 Novolog SC 8 unit Q6 [facility] Administration Protocol Insulin Glargine 20 unit 02/09/18 08:00 02/10/18 08:02 Lantus SC 20 u Q12H [facility] Administration Tamsulosin HCl 0.4 mg 01/30/18 20:00 02/10/18 10:01 Flomax PO Not Given DAILY [facility] - Patient Studies Lab Studies: Microbiology Studies 02/08/18 Unknown Urine Culture - Final Urine,Catheterized No Growth (<1,000 CFU/ML) 02/08/18 20:58 Blood Culture - Preliminary Blood NO GROWTH AFTER 24 HOURS 02/08/18 20:58 Blood Culture - Preliminary Blood NO GROWTH AFTER 24 HOURS 02/08/18 Unknown MRSA Culture (Admit) - Final Naris MRSA NOT DETECTED Lab Studies 02/10/18 02/10/18 02/10/18 Range/Units 15:24 11:59 06:15 WBC 6.1 (4.8-10.8) K/uL RBC 3.33 L (4.40-5.90) Mil/uL Hgb 10.6 L (12.0-18.0) g/dL Hct 31.6 L (35.0-51.0) % MCV 94.8 H (80.0-94.0) fL MCH 31.9 H (27.0-31.0) pg MCHC 33.6 (33.0-37.0) g/dL RDW 12.5 (11.5-14.5) % Plt Count 62 L (130-400) K/uL MPV 12.1 H (7.2-11.7) fL Neut % (Auto) 73.8 (50.0-75.0) % Lymph % (Auto) 17.7 L (20.0-40.0) % [place] % (Auto) 4.5 (0.0-10.0) % Eos % (Auto) 3.6 (0.0-4.0) % Baso % (Auto) 0.4 (0.0-2.0) % Neut # (Auto) 4.5 (1.8-7.0) K/uL Lymph # (Auto) 1.1 (1.0-4.3) K/uL [place] # (Auto) 0.3 (0.0-0.8) K/uL Eos # (Auto) 0.2 (0.0-0.7) K/uL Baso # (Auto) 0.0 (0.0-0.2) K/uL Puncture Site pCO2 (35-45) mm/Hg pO2 (80-100) mm/Hg HCO3 (21-28) mmol/L ABG pH (7.35-7.45) ABG Total CO2 (22-28) mmol/L ABG O2 Saturation (95-98) % ABG Base Excess (-2.0-3.0) mmol/L ABG Hemoglobin (11.7-17.4) g/dL ABG Carboxyhemoglobin (0.5-1.5) % POC ABG HHb (Measured) (0.0-5.0) % ABG Methemoglobin (0.0-3.0) % Jamey Test A-a O2 Difference mm/Hg Respiratory Index Hgb O2 Saturation (95.0-98.0) % Vent Mode Mechanical Rate FiO2 % Tidal Volume PEEP Sodium 139 (132-148) mmol/L Potassium 3.6 (3.6-5.2) mmol/L Chloride 102 (98-107) mmol/L Carbon Dioxide 28 (22-30) mmol/L Anion Gap 12 (10-20) BUN 36 H (9-20) mg/dL Creatinine 1.1 (0.8-1.5) mg/dL Est GFR ( Amer) > 60 Est GFR (Non-Af Amer) > 60 POC Glucose (mg/dL) 397 H (65-110) mg/dL Random Glucose 390 H (75-110) mg/dL Calcium 7.5 L (8.6-10.4) mg/dl Phosphorus (2.5-4.5) mg/dL Magnesium (1.6-2.3) mg/dL Total Bilirubin (0.2-1.3) mg/dL AST (17-59) U/L ALT (21-72) U/L Alkaline Phosphatase (38-126) U/L Total Protein (6.3-8.3) g/dL Albumin (3.5-5.0) g/dL Globulin (2.2-3.9) gm/dL Albumin/Globulin Ratio (1.0-2.1) 02/10/18 02/10/18 02/10/18 Range/Units 06:14 05:49 05:44 WBC (4.8-10.8) K/uL RBC (4.40-5.90) Mil/uL Hgb (12.0-18.0) g/dL Hct (35.0-51.0) % MCV (80.0-94.0) fL MCH (27.0-31.0) pg MCHC (33.0-37.0) g/dL RDW (11.5-14.5) % Plt Count (130-400) K/uL MPV (7.2-11.7) fL Neut % (Auto) (50.0-75.0) % Lymph % (Auto) (20.0-40.0) % [place] % (Auto) (0.0-10.0) % Eos % (Auto) (0.0-4.0) % Baso % (Auto) (0.0-2.0) % Neut # (Auto) (1.8-7.0) K/uL Lymph # (Auto) (1.0-4.3) K/uL [place] # (Auto) (0.0-0.8) K/uL Eos # (Auto) (0.0-0.7) K/uL Baso # (Auto) (0.0-0.2) K/uL Puncture Site Rb pCO2 40 (35-45) mm/Hg pO2 71 L (80-100) mm/Hg HCO3 28.1 H (21-28) mmol/L ABG pH 7.46 H (7.35-7.45) ABG Total CO2 29.6 H (22-28) mmol/L ABG O2 Saturation 97.1 (95-98) % ABG Base Excess 4.2 H (-2.0-3.0) mmol/L ABG Hemoglobin 10.6 L (11.7-17.4) g/dL ABG Carboxyhemoglobin 2.6 H (0.5-1.5) % POC ABG HHb (Measured) 2.8 (0.0-5.0) % ABG Methemoglobin 0.9 (0.0-3.0) % Jamey Test Na A-a O2 Difference 93.0 mm/Hg Respiratory Index 1.3 Hgb O2 Saturation 93.7 L (95.0-98.0) % Vent Mode Prvc Mechanical Rate 16 FiO2 30.0 % Tidal Volume 500 PEEP 5 Sodium 139 (132-148) mmol/L Potassium 3.3 L (3.6-5.2) mmol/L Chloride 101 (98-107) mmol/L Carbon Dioxide 27 (22-30) mmol/L Anion Gap 14 (10-20) BUN 44 H (9-20) mg/dL Creatinine 1.2 (0.8-1.5) mg/dL Est GFR ( Amer) > 60 Est GFR (Non-Af Amer) > 60 POC Glucose (mg/dL) 309 H (65-110) mg/dL Random Glucose 316 H (75-110) mg/dL Calcium 7.0 L (8.6-10.4) mg/dl Phosphorus 3.9 (2.5-4.5) mg/dL Magnesium 2.0 (1.6-2.3) mg/dL Total Bilirubin 0.8 (0.2-1.3) mg/dL AST 24 (17-59) U/L ALT 37 (21-72) U/L Alkaline Phosphatase 68 (38-126) U/L Total Protein 4.6 L (6.3-8.3) g/dL Albumin 2.5 L (3.5-5.0) g/dL Globulin 2.1 L (2.2-3.9) gm/dL Albumin/Globulin Ratio 1.2 (1.0-2.1) 02/10/18 Range/Units 00:00 WBC (4.8-10.8) K/uL RBC (4.40-5.90) Mil/uL Hgb (12.0-18.0) g/dL Hct (35.0-51.0) % MCV (80.0-94.0) fL MCH (27.0-31.0) pg MCHC (33.0-37.0) g/dL RDW (11.5-14.5) % Plt Count (130-400) K/uL MPV (7.2-11.7) fL Neut % (Auto) (50.0-75.0) % Lymph % (Auto) (20.0-40.0) % [place] % (Auto) (0.0-10.0) % Eos % (Auto) (0.0-4.0) % Baso % (Auto) (0.0-2.0) % Neut # (Auto) (1.8-7.0) K/uL Lymph # (Auto) (1.0-4.3) K/uL [place] # (Auto) (0.0-0.8) K/uL Eos # (Auto) (0.0-0.7) K/uL Baso # (Auto) (0.0-0.2) K/uL Puncture Site pCO2 (35-45) mm/Hg pO2 (80-100) mm/Hg HCO3 (21-28) mmol/L ABG pH (7.35-7.45) ABG Total CO2 (22-28) mmol/L ABG O2 Saturation (95-98) % ABG Base Excess (-2.0-3.0) mmol/L ABG Hemoglobin (11.7-17.4) g/dL ABG Carboxyhemoglobin (0.5-1.5) % POC ABG HHb (Measured) (0.0-5.0) % ABG Methemoglobin (0.0-3.0) % Jamey Test A-a O2 Difference mm/Hg Respiratory Index Hgb O2 Saturation (95.0-98.0) % Vent Mode Mechanical Rate FiO2 % Tidal Volume PEEP Sodium (132-148) mmol/L Potassium (3.6-5.2) mmol/L Chloride (98-107) mmol/L Carbon Dioxide (22-30) mmol/L Anion Gap (10-20) BUN (9-20) mg/dL Creatinine (0.8-1.5) mg/dL Est GFR ( Amer) Est GFR (Non-Af Amer) POC Glucose (mg/dL) 306 H (65-110) mg/dL Random Glucose (75-110) mg/dL Calcium (8.6-10.4) mg/dl Phosphorus (2.5-4.5) mg/dL Magnesium (1.6-2.3) mg/dL Total Bilirubin (0.2-1.3) mg/dL AST (17-59) U/L ALT (21-72) U/L Alkaline Phosphatase (38-126) U/L Total Protein (6.3-8.3) g/dL Albumin (3.5-5.0) g/dL Globulin (2.2-3.9) gm/dL Albumin/Globulin Ratio (1.0-2.1) Laboratory Results - last 24 hr 02/10/18 02/10/18 02/10/18 00:00 05:44 05:49 WBC RBC Hgb Hct MCV MCH MCHC RDW Plt Count MPV Neut % (Auto) Lymph % (Auto) [place] % (Auto) Eos % (Auto) Baso % (Auto) Neut # (Auto) Lymph # (Auto) [place] # (Auto) Eos # (Auto) Baso # (Auto) Puncture Site Rb pCO2 40 pO2 71 L HCO3 28.1 H ABG pH 7.46 H ABG Total CO2 29.6 H ABG O2 Saturation 97.1 ABG Base Excess 4.2 H ABG Hemoglobin 10.6 L ABG Carboxyhemoglobin 2.6 H POC ABG HHb (Measured) 2.8 ABG Methemoglobin 0.9 Jamey Test Na A-a O2 Difference 93.0 Respiratory Index 1.3 Hgb O2 Saturation 93.7 L Vent Mode Prvc Mechanical Rate 16 FiO2 30.0 Tidal Volume 500 PEEP 5 Sodium Potassium Chloride Carbon Dioxide Anion Gap BUN Creatinine Est GFR ( Amer) Est GFR (Non-Af Amer) POC Glucose (mg/dL) 306 H 309 H Random Glucose Calcium Phosphorus Magnesium Total Bilirubin AST ALT Alkaline Phosphatase Total Protein Albumin Globulin Albumin/Globulin Ratio 02/10/18 02/10/18 02/10/18 06:14 06:15 11:59 WBC 6.1 RBC 3.33 L Hgb 10.6 L Hct 31.6 L MCV 94.8 H MCH 31.9 H MCHC 33.6 RDW 12.5 Plt Count 62 L MPV 12.1 H Neut % (Auto) 73.8 Lymph % (Auto) 17.7 L [place] % (Auto) 4.5 Eos % (Auto) 3.6 Baso % (Auto) 0.4 Neut # (Auto) 4.5 Lymph # (Auto) 1.1 [place] # (Auto) 0.3 Eos # (Auto) 0.2 Baso # (Auto) 0.0 Puncture Site pCO2 pO2 HCO3 ABG pH ABG Total CO2 ABG O2 Saturation ABG Base Excess ABG Hemoglobin ABG Carboxyhemoglobin POC ABG HHb (Measured) ABG Methemoglobin Jamey Test A-a O2 Difference Respiratory Index Hgb O2 Saturation Vent Mode Mechanical Rate FiO2 Tidal Volume PEEP Sodium 139 Potassium 3.3 L Chloride 101 Carbon Dioxide 27 Anion Gap 14 BUN 44 H Creatinine 1.2 Est GFR ( Amer) > 60 Est GFR (Non-Af Amer) > 60 POC Glucose (mg/dL) 397 H Random Glucose 316 H Calcium 7.0 L Phosphorus 3.9 Magnesium 2.0 Total Bilirubin 0.8 AST 24 ALT 37 Alkaline Phosphatase 68 Total Protein 4.6 L Albumin 2.5 L Globulin 2.1 L Albumin/Globulin Ratio 1.2 02/10/18 15:24 WBC RBC Hgb Hct MCV MCH MCHC RDW Plt Count MPV Neut % (Auto) Lymph % (Auto) [place] % (Auto) Eos % (Auto) Baso % (Auto) Neut # (Auto) Lymph # (Auto) [place] # (Auto) Eos # (Auto) Baso # (Auto) Puncture Site pCO2 pO2 HCO3 ABG pH ABG Total CO2 ABG O2 Saturation ABG Base Excess ABG Hemoglobin ABG Carboxyhemoglobin POC ABG HHb (Measured) ABG Methemoglobin Jamey Test A-a O2 Difference Respiratory Index Hgb O2 Saturation Vent Mode Mechanical Rate FiO2 Tidal Volume PEEP Sodium 139 Potassium 3.6 Chloride 102 Carbon Dioxide 28 Anion Gap 12 BUN 36 H Creatinine 1.1 Est GFR ( Amer) > 60 Est GFR (Non-Af Amer) > 60 POC Glucose (mg/dL) Random Glucose 390 H Calcium 7.5 L Phosphorus Magnesium Total Bilirubin AST ALT Alkaline Phosphatase Total Protein Albumin Globulin Albumin/Globulin Ratio Fingerstick Blood Sugar Results: 306
[2018-02-10] MEDS: Vancomycin 1 GM in Dextrose 5% In Water 250 ML IVPB SCH (18:47)
[2018-02-11] MEDS: (Novolog) Insulin Aspart, Recombinant 100 u/ml 10 ml vial SC SCH ×4 (00:23→17:58)
[2018-02-11] MEDS: Albuterol-Ipratrop 3 mg / 0.5 (3 ml) UD INH SCH ×4 (03:56→20:46)
--- NOTE | 2018-02-11 04:23 | PN ---
DATE: 02/10/2018 The patient is located in ICU, bed 7. Requested by Dr. Arash Rose. REASON FOR FOLLOWUP: Acute renal failure, hypernatremia for further evaluation, and pulmonary embolism, SUBJECTIVE: Mr. Latif is a 67-year-old elderly obese male with a past medical history significant for longstanding hypertension, diabetes, coronary artery disease, status post CABG, CVA, who was admitted initially with altered mental status and found to have witnessed seizure in the emergency room. Subsequently, the patient was admitted to ICU, intubated, and his hospital course complicated by fever, positive for DVT in the right upper extremity and also polyuria and hypernatremia with osmotic diuresis. His sodium was corrected slowly and subsequently the patient was extubated and transferred to medical floor. His hospital course was complicated 2 days back with MANAGER ACTUARIAL and fever and found to have a saddle embolus to the lung bilaterally and also the patient was intubated and transferred to ICU and also found to have hypernatremia again. The patient is on D5W and also free water by NG tube. The patient remains intubated. The patient is more alert today and opens eyes and moving all extremities, not following verbal commands, spontaneous eye movements. PHYSICAL EXAMINATION: VITAL SIGNS: As follows: Blood pressure was 94/45, pulse 77, respirations about 20, and temperature 97.6. GENERAL: Mr. Latif is a 67-year-old elderly male, moderately built, moderately nourished, on ventilator. Opens eyes. HEENT: Pupils normal, reactive to light and accommodation. Conjunctiva pink. Sclera anicteric, on ventilator. No thyroid enlargement. LUNGS: Symmetrical on both sides. Bilateral breath sounds present. No crackles. CVS: [place] at the fifth intercostal space, midclavicular line. S1 and S2 audible. No murmur or gallop. ABDOMEN: Normal in appearance, soft, tympanic. No guarding. No rigidity. No hepatosplenomegaly. YOUTH ASSOCIATE: The patient is on ventilator, awake with movement of the both upper extremities and moving both lower extremities with the painful stimuli. CURRENT MEDICATIONS: Include as follows: Acyclovir 750 mg IV every 12 hours, hydralazine 100 mg p.o. every 8 hours, aspirin 81 mg daily, Coreg 12.5 mg p.o. b.i.d., DuoNeb inhaler, and Eliquis 10 mg p.o. b.i.d., Flomax 0.4 mg p.o. daily, insulin Lantus 20 units subcu every 12 hours, Keppra 500 mg every 12 hours IV piggyback, cefepime 2 gm IV every 12 hours, NovoLog for sliding scale, Tylenol, vancomycin 1 gm every 48 hours. and IV fluids was discontinued by ICU team. His intake and output as follows. Intake is 6876 and output is 1490. LABORATORY DATA: Include as follows: As of 02/10/2018: WBC 6.1, hemoglobin 10.6, hematocrit is 31.6, platelets 62. ABG, pH 7.46, pCO2 is 40, pO2 is 71, bicarb is 28.1, saturation 97.1. Vent setting: AC 16, tidal volume 500, FiO2 of 30%, PEEP of 5. Sodium 139 and potassium was 3.3, chloride 101, CO2 of 27, BUN 44, creatinine 1.2, glucose 309, calcium is 7, phosphorus is 3.9, magnesium is 2, total bili 0.8, AST 24, ALT 37, alkaline phosphatase 68, total protein is 4.6, albumin is 2.5. His repeat BMP: Sodium 139, potassium 3.6, chloride 102, CO2 is 28, BUN 36, creatinine 1.1, glucose 390, calcium is 7.5 and his corrected sodium is about 144. Blood culture x2 negative as of 02/08/2018 and MRSA screening was negative and urine culture was negative. Chest x-ray as of 02/10/2018: Endotracheal tube terminates 9 mm proximal to the rianna, no other significant changes. There is a discoid atelectasis in the right mid lung, and the left lung is clear. In summary, Mr. Latif is a 67-year-old elderly male with a history of hypertension, diabetes, hyperlipidemia, coronary artery disease, status post CABG, CVA, status post seizures, and status post intubation second time during this hospitalization, positive for PE, saddle embolus in both lungs with hypernatremia, on IV hydration. 1. Status post hypernatremia secondary to intravascular depletion. 2. Acute renal failure. Renal function is improving. 3. Pulmonary embolism. 4. Respiratory failure. 5. Altered mental status, etiology is not clear, rule out sepsis, rule out new-onset CVA versus secondary to seizures. Agree to discontinue IV fluids and continue to monitor BMP daily. Continue IV antibiotics as per ID recommendations, vancomycin and acyclovir. Continue antiseizure medication, Keppra 500 mg every 12 hours. Overall prognosis is guarded. Thank you for allowing me to participate in your patient's care. Baldemar Ruiz MD
[2018-02-11] MEDS: Cefepime IV 2 gm in Dextrose 2 GM/100 ML BAG IVPB SCH ×2 (06:31→18:00)
[2018-02-11 06:42] LABS: BASO % 0.4 % (0.0-2.0); EOS # 0.2 K/uL (0.0-0.7); EOS % 4.4 % (0.0-4.0); HEMOGLOBIN 10.2 g/dL (12.0-18.0); LYMPH # 1.1 K/uL (1.0-4.3); LYMPH % 19.3 % (20.0-40.0); MEAN CELL VOLUME 93.6 fL (80.0-94.0); MEAN CORPUSCULAR HEMOGLOBIN 31.5 pg (27.0-31.0); MEAN CORPUSCULAR HGB CONC 33.7 g/dL (33.0-37.0); MEAN PLATELET VOLUME 12.3 fL (7.2-11.7); MONO # 0.3 K/uL (0.0-0.8); NEUT # 3.9 K/uL (1.8-7.0); NEUT % 69.9 % (50.0-75.0); NRBC % 0.1 % (0.0-2.0); RBC 3.24 Mil/uL (4.40-5.90); RED CELL DISTRIBUTION WIDTH 12.5 % (11.5-14.5); WHITE BLOOD COUNT 5.6 K/uL (4.8-10.8)
[2018-02-11 06:51] LABS: ALB/GLOB RATIO 0.9 (1.0-2.1); ALBUMIN 2.3 g/dL (3.5-5.0); ALT/SGPT 31 U/L (21-72); AST/SGOT 30 U/L (17-59); BLOOD UREA NITROGEN 33 mg/dL (9-20); CALCIUM 7.7 mg/dl (8.6-10.4); GFR AFRICAN-AMERICAN > 60; GFR NON-AFRICAN AMERICAN > 60
--- NOTE | 2018-02-11 07:19 | CP.PCM.PN ---
Subjective - Date & Time of Evaluation Date of Evaluation: 02/11/18 Time of Evaluation: 07:16 - Subjective Subjective: Mr. Latif was seen and examined at the bedside in ICU. He is n mechanical ventilator on PRVC mode. He response to pain stimuli with facial grimacing and moving his right upper extremity. GCS-4T.He is able to open his eyes spontaneously with both verbal and tactile stimuli. He was not able to follow commands this morning, however, per staff, he is able to follow simple commands from the family.He is able to move all extremities, but really stiffen his upper extremities as a response to any stimuli.. His eyes remain unequal left 3mm and right 2 mm sluggish to react which was his baseline. He had an episode of restlessness and agitation last night which he was given ativan with relief. There was no untoward events overnight. Objective - Vital Signs/Intake and Output Vital Signs (last 24 hours): Temp Pulse Resp BP Pulse Ox 98 F 82 18 152/71 H 96 02/11/18 04:00 02/11/18 05:59 02/11/18 05:59 02/11/18 05:59 02/11/18 05:59 Intake and Output: 02/11/18 02/11/18 06:59 18:59 Intake Total 1900 Output Total 655 Balance 1245 - Medications Medications: Current Medications Acetaminophen (Tylenol 650mg/20.3ml Solution Ud) 650 mg NG Q6 PRN PRN Reason: GIVE FOR TEMP. 100*F OR ABOVE Last Admin: 02/05/18 20:48 Dose: 650 mg Albuterol/Ipratropium (Duoneb 3 Mg/0.5 Mg (3 Ml) Ud) 3 ml INH RQ6 [facility] Last Admin: 02/11/18 03:56 Dose: 3 ml Apixaban (Eliquis) 10 mg PO BID [facility] Stop: 02/16/18 18:01 Last Admin: 02/10/18 18:49 Dose: 10 mg Aspirin (Aspirin Chewable) 81 mg PO DAILY [facility] Last Admin: 02/10/18 09:56 Dose: 81 mg Carvedilol (Coreg) 12.5 mg PO BID [facility] Last Admin: 02/10/18 18:49 Dose: 12.5 mg Hydralazine HCl (Apresoline) 100 mg PO Q8 [facility] Last Admin: 02/11/18 06:35 Dose: 100 mg Levetiracetam 500 mg/ Dextrose 55 mls @ 420 mls/hr IVPB Q12H [facility] Last Admin: 02/10/18 21:19 Dose: 420 mls/hr Vancomycin HCl 1 gm/ Dextrose 250 mls @ 166.7 mls/hr IVPB Q48H [facility] PRN Reason: Protocol Last Admin: 02/10/18 18:47 Dose: 166.7 mls/hr Cefepime HCl (Maxipime Iv 2 Gm Premix) 2 gm in 100 mls @ 200 mls/hr IVPB Q12H [facility] PRN Reason: Protocol Stop: 02/13/18 19:01 Last Admin: 02/11/18 06:31 Dose: 200 mls/hr Acyclovir 750 mg/ Dextrose 250 mls @ 100 mls/hr IV Q12H [facility] PRN Reason: Protocol Last Admin: 02/10/18 21:17 Dose: 100 mls/hr Insulin Aspart (Novolog) 0 unit SC Q6 [facility] PRN Reason: Protocol Last Admin: 02/11/18 06:39 Dose: 8 unit Insulin Glargine (Lantus) 20 unit SC Q12H [facility] Last Admin: 02/10/18 20:18 Dose: 20 u Tamsulosin HCl (Flomax) 0.4 mg PO DAILY [facility] Last Admin: 02/10/18 10:01 Dose: Not Given - Labs Labs: 02/11/18 06:32 02/11/18 06:31 PT 12.4 SECONDS (9.7-12.2) H 02/02/18 06:19 INR 1.1 02/02/18 06:19 APTT 50 SECONDS (21-34) H D 02/09/18 12:02 - Constitutional Appears: No Acute Distress - Head Exam Head Exam: NORMAL INSPECTION - ENT Exam Additional comments: left 3 mm and right 2 mm sluggish to react. - Neurological Exam Neurological Exam: Awake Neuro motor strength exam: Left Upper Extremity: 2/1, Right Upper Extremity: 2/1 , Left Lower Extremity: 2/1, Right Lower Extremity: 2/1 Additional comments: Neurological improvement from previous examination, he is able to open his eyes as a response to stimuli and moves his extremities. Assessment and Plan (1) Status epilepticus Assessment & Plan: Case discussed with Dr. Perez, continue all current medical regimen. Recommend PT eval and treat for prevention of deconditioning. Treat any underlying electrolyte abnormalities. Status: Acute
[2018-02-11] MEDS: ACYCLOVIR IV SCH ×2 (07:39→19:54)
[2018-02-11] MEDS: WATER IV SCH ×2 (07:39→19:54)
[2018-02-11] MEDS: DEXTROSE 5% IV SCH ×2 (07:39→19:54)
[2018-02-11] MEDS: (Lantus) Insulin Glargine, Recombinant SC SCH ×2 (08:39→19:55)
[2018-02-11] MEDS: WATER IVPB SCH ×2 (10:05→21:27)
[2018-02-11] MEDS: DEXTROSE 5% IVPB SCH ×2 (10:05→21:27)
[2018-02-11] MEDS: LEVETIRACETAM IVPB SCH ×2 (10:05→21:27)
--- NOTE | 2018-02-11 12:08 | PN ---
DATE: 02/11/2018 LOCATION: ICU 7. SUBJECTIVE: This is a 67-year-old male seen and examined in rounds without significant clinical changes or reported active bleeding, nonverbal. The entire chart is reviewed including, but not limited to, the most recent lab and radiology study results, current and previous medication list, current and the previous medical events. Today's lab showed hemoglobin 10.2, hematocrit 30.3, thrombocytopenia of 61, potassium 3.5, blood glucose level 350, calcium 7.7, albumin 2.3. Most recent chest x-ray report seen. PHYSICAL EXAMINATION: GENERAL: A 67-year-old male, still intubated to vent. VITAL SIGNS: Afebrile, with heart rate of 76, blood pressure of 148/64. HEENT: Showed pale dry oral mucous membrane. Nonicteric sclerae. LUNGS: Scattered crepitations, decreased air entry bilaterally, patient is still on a trach vent. HEART Positive S1 and S2. ABDOMEN: With generalized distention. Bowel sounds are hypoactive. No mass or organomegaly. EXTREMITIES: With edematous changes, but no clubbing or cyanosis. NEUROLOGIC: No new reported significant neurological deficits, sensory or motor. IMPRESSION: 1. Pneumonia. 2. Severe hypoalbuminemia with malnutrition. 3. Peptic ulcer disease. 4. Known history of seizure disorder. 5. Pneumonia with respiratory failure, intubated to vent. 6. Known history of hypertension, coronary artery disease, status post coronary artery bypass graft. 7. Known history of hyperlipidemia. SUGGESTIONS: 1. Agree with your plan. 2. Surgical reevaluation or followup. 3. Central hyperalimentation. 4. Further evaluation to follow. Jaya Glass MD
--- NOTE | 2018-02-11 13:08 | CP.PCM.PN ---
Subjective - Date & Time of Evaluation Date of Evaluation: 02/11/18 Time of Evaluation: 13:08 - Subjective Subjective: pt is seen and examined, follow up consult is dictated #[id number] Objective - Vital Signs/Intake and Output Vital Signs (last 24 hours): Temp Pulse Resp BP Pulse Ox 98.4 F 69 17 98/52 L 99 02/11/18 12:00 02/11/18 12:00 02/11/18 12:00 02/11/18 11:58 02/11/18 12:00 Intake and Output: 02/11/18 02/11/18 06:59 18:59 Intake Total 2300 1105 Output Total 980 400 Balance 1320 705 - Medications Medications: Current Medications Acetaminophen (Tylenol 650mg/20.3ml Solution Ud) 650 mg NG Q6 PRN PRN Reason: GIVE FOR TEMP. 100*F OR ABOVE Last Admin: 02/05/18 20:48 Dose: 650 mg Albuterol/Ipratropium (Duoneb 3 Mg/0.5 Mg (3 Ml) Ud) 3 ml INH RQ6 [facility] Last Admin: 02/11/18 08:46 Dose: 3 ml Apixaban (Eliquis) 10 mg PO BID [facility] Stop: 02/16/18 18:01 Last Admin: 02/11/18 10:05 Dose: 10 mg Aspirin (Aspirin Chewable) 81 mg PO DAILY [facility] Last Admin: 02/11/18 10:05 Dose: 81 mg Carvedilol (Coreg) 12.5 mg PO BID [facility] Last Admin: 02/11/18 10:05 Dose: 12.5 mg Hydralazine HCl (Apresoline) 100 mg PO Q8 [facility] Last Admin: 02/11/18 06:35 Dose: 100 mg Levetiracetam 500 mg/ Dextrose 55 mls @ 420 mls/hr IVPB Q12H [facility] Last Admin: 02/11/18 10:05 Dose: 420 mls/hr Vancomycin HCl 1 gm/ Dextrose 250 mls @ 166.7 mls/hr IVPB Q48H [facility] PRN Reason: Protocol Last Admin: 02/10/18 18:47 Dose: 166.7 mls/hr Cefepime HCl (Maxipime Iv 2 Gm Premix) 2 gm in 100 mls @ 200 mls/hr IVPB Q12H [facility] PRN Reason: Protocol Stop: 02/13/18 19:01 Last Admin: 02/11/18 06:31 Dose: 200 mls/hr Acyclovir 750 mg/ Dextrose 250 mls @ 100 mls/hr IV Q12H [facility] PRN Reason: Protocol Last Admin: 02/11/18 07:39 Dose: 100 mls/hr Insulin Aspart (Novolog) 0 unit SC Q6 [facility] PRN Reason: Protocol Last Admin: 02/11/18 12:13 Dose: 8 unit Insulin Glargine (Lantus) 20 unit SC Q12H [facility] Last Admin: 02/11/18 08:39 Dose: 20 u Tamsulosin HCl (Flomax) 0.4 mg PO DAILY [facility] Last Admin: 02/11/18 10:05 Dose: 0.4 mg - Labs Labs: 02/11/18 06:32 02/11/18 06:31 PT 12.4 SECONDS (9.7-12.2) H 02/02/18 06:19 INR 1.1 02/02/18 06:19 APTT 50 SECONDS (21-34) H D 02/09/18 12:02
--- NOTE | 2018-02-11 15:52 | CP.CCUPN ---
CCU Subjective - Physician Review Events Since Last Encounter (Free Text): 02/11/18 15:52 Patient examined at bedside. Currently on ventilator. Patient is spontaneously moving the upper extremities. He is able to focus on and off. But mostly he is kind of sleepy. Off sedation. Sodium is improving On examination: Vital signs stable. Chest good air entry irregular heart sounds nontender abdomen extremities edema Patient is still on ventilator. CPAP trial tolerating. Labs reviewed Assessment/plan: Patient is here 67 male with recurrent episodes of seizure activities. Heart disease. Chronic renal failure. Admitted the pneumonia last time. Also sepsis. Patient was intubated and extubated and doing the last intensive care unit monitoring. Patient was recovering in the floor, become unresponsive, intubated now on ventilator. Patient is responding. Patient may be stuporous at this time. Patient is still unstable to extubate at this time. We'll continue to monitor. May need a tracheostomy and feeding tube CCU Objective - Vital Signs / Intake & Output Vital Signs (Last 4 hours): Vital Signs Temp Pulse Resp BP Pulse Ox 02/11/18 15:00 65 25 H 98 02/11/18 14:58 59 L 26 H 95/47 L 98 02/11/18 14:06 64 25 H 90/48 L 98 02/11/18 14:05 89/47 L 02/11/18 14:00 73 20 100 02/11/18 13:00 74 21 99 02/11/18 12:58 73 16 111/57 L 99 02/11/18 12:00 98.4 F 69 17 99 02/11/18 11:58 74 24 98/52 L 98 Intake and Output (Last 8hrs): Intake & Output 02/11/18 02/11/18 02/11/18 06:59 14:59 22:59 Intake Total 1100 1555 50 Output Total 700 450 50 Balance 400 1105 0 Weight 208 lb 15.971 oz Intake: Intake, IV Amount 0 405 0 Left Medial Port Internal 0 405 0 Jugular Tube Feeding 300 350 50 Other 800 800 Output: Urine 700 450 [address] 2-way Urethral 700 450 50 - Physical Exam Head: Positive for: Atraumatic, Normocephalic Pupils: Positive for: PERRL Conjunctiva: Positive for: Normal Mouth: Positive for: Moist Mucous Membranes, Other (ETT) Neck: Positive for: Normal Range of Motion Respiratory/Chest: Positive for: Clear to Auscultation, Tachypneic. Negative for: Respiratory Distress Cardiovascular: Positive for: Regular Rate and Rhythm, Normal S1, S2. Negative for: Tachycardic Abdomen: Positive for: Normal Bowel Sounds, Other (Obese). Negative for: Tenderness, Distention, Peritoneal Signs Lower Extremity: Positive for: Normal Inspection Neurological: Positive for: Other (Moves all extremities) Skin: Positive for: Warm, Dry Psychiatric: Positive for: Alert - Medications Active Medications: Active Medications Generic Name Dose Route Start Last Admin Trade Name Freq PRN Reason Stop Dose Admin Acetaminophen 650 mg 01/19/18 00:50 02/05/18 20:48 Tylenol 650mg/20.3ml Solution Ud NG 650 mg Q6 PRN Administration GIVE FOR TEMP. 100*F OR ABOVE Albuterol/Ipratropium 3 ml 01/26/18 20:00 02/11/18 13:14 Duoneb 3 Mg/0.5 Mg (3 Ml) Ud INH 3 ml RQ6 [facility] Administration Apixaban 10 mg 02/09/18 18:00 02/11/18 10:05 Eliquis PO 02/16/18 18:01 10 mg BID [facility] Administration Aspirin 81 mg 01/17/18 10:00 02/11/18 10:05 Aspirin Chewable PO 81 mg DAILY [facility] Administration Carvedilol 12.5 mg 01/22/18 09:07 02/11/18 10:05 Coreg PO 12.5 mg BID [facility] Administration Hydralazine HCl 100 mg 02/03/18 00:29 02/11/18 13:50 Apresoline PO 100 mg Q8 [facility] Administration Levetiracetam 500 mg/ Dextrose 55 mls @ 420 mls/hr 02/08/18 22:00 02/11/18 10 :05 IVPB 420 mls/hr Q12H [facility] Administration Vancomycin HCl 1 gm/ Dextrose 250 mls @ 166.7 mls/hr 02/08/18 19:30 02/10/18 18:47 IVPB 166.7 mls/hr Q48H [facility] Administration Protocol Cefepime HCl 2 gm in 100 mls @ 200 mls/hr 02/08/18 19:00 02/11/18 06:31 Maxipime Iv 2 Gm Premix IVPB 02/13/18 19:01 200 mls/hr Q12H [facility] Administration Protocol Acyclovir 750 mg/ Dextrose 250 mls @ 100 mls/hr 02/08/18 20:00 02/11/18 07:39 IV 100 mls/hr Q12H [facility] Administration Protocol Insulin Aspart 0 unit 02/09/18 18:56 02/11/18 12:13 Novolog SC 8 unit Q6 [facility] Administration Protocol Insulin Glargine 20 unit 02/09/18 08:00 02/11/18 08:39 Lantus SC 20 u Q12H [facility] Administration Tamsulosin HCl 0.4 mg 01/30/18 20:00 02/11/18 10:05 Flomax PO 0.4 mg DAILY [facility] Administration - Patient Studies Lab Studies: Microbiology Studies 02/08/18 20:58 Blood Culture - Preliminary Blood NO GROWTH AFTER 48 HOURS 02/08/18 20:58 Blood Culture - Preliminary Blood NO GROWTH AFTER 48 HOURS Lab Studies 02/11/18 02/11/18 02/11/18 Range/Units 11:27 06:38 06:32 WBC 5.6 (4.8-10.8) K/uL RBC 3.24 L (4.40-5.90) Mil/uL Hgb 10.2 L (12.0-18.0) g/dL Hct 30.3 L (35.0-51.0) % MCV 93.6 (80.0-94.0) fL MCH 31.5 H (27.0-31.0) pg MCHC 33.7 (33.0-37.0) g/dL RDW 12.5 (11.5-14.5) % Plt Count 61 L (130-400) K/uL MPV 12.3 H (7.2-11.7) fL Neut % (Auto) 69.9 (50.0-75.0) % Lymph % (Auto) 19.3 L (20.0-40.0) % [place] % (Auto) 6.0 (0.0-10.0) % Eos % (Auto) 4.4 H (0.0-4.0) % Baso % (Auto) 0.4 (0.0-2.0) % Neut # (Auto) 3.9 (1.8-7.0) K/uL Lymph # (Auto) 1.1 (1.0-4.3) K/uL [place] # (Auto) 0.3 (0.0-0.8) K/uL Eos # (Auto) 0.2 (0.0-0.7) K/uL Baso # (Auto) 0.0 (0.0-0.2) K/uL Sodium (132-148) mmol/L Potassium (3.6-5.2) mmol/L Chloride (98-107) mmol/L Carbon Dioxide (22-30) mmol/L Anion Gap (10-20) BUN (9-20) mg/dL Creatinine (0.8-1.5) mg/dL Est GFR ( Amer) Est GFR (Non-Af Amer) POC Glucose (mg/dL) 330 H 347 H (65-110) mg/dL Random Glucose (75-110) mg/dL Calcium (8.6-10.4) mg/dl Phosphorus (2.5-4.5) mg/dL Magnesium (1.6-2.3) mg/dL Total Bilirubin (0.2-1.3) mg/dL AST (17-59) U/L ALT (21-72) U/L Alkaline Phosphatase (38-126) U/L Total Protein (6.3-8.3) g/dL Albumin (3.5-5.0) g/dL Globulin (2.2-3.9) gm/dL Albumin/Globulin Ratio (1.0-2.1) 02/11/18 02/11/18 02/10/18 Range/Units 06:31 06:31 23:42 WBC (4.8-10.8) K/uL RBC (4.40-5.90) Mil/uL Hgb (12.0-18.0) g/dL Hct (35.0-51.0) % MCV (80.0-94.0) fL MCH (27.0-31.0) pg MCHC (33.0-37.0) g/dL RDW (11.5-14.5) % Plt Count (130-400) K/uL MPV (7.2-11.7) fL Neut % (Auto) (50.0-75.0) % Lymph % (Auto) (20.0-40.0) % [place] % (Auto) (0.0-10.0) % Eos % (Auto) (0.0-4.0) % Baso % (Auto) (0.0-2.0) % Neut # (Auto) (1.8-7.0) K/uL Lymph # (Auto) (1.0-4.3) K/uL [place] # (Auto) (0.0-0.8) K/uL Eos # (Auto) (0.0-0.7) K/uL Baso # (Auto) (0.0-0.2) K/uL Sodium 138 (132-148) mmol/L Potassium 3.5 L (3.6-5.2) mmol/L Chloride 103 (98-107) mmol/L Carbon Dioxide 29 (22-30) mmol/L Anion Gap 10 (10-20) BUN 33 H (9-20) mg/dL Creatinine 1.0 (0.8-1.5) mg/dL Est GFR ( Amer) > 60 Est GFR (Non-Af Amer) > 60 POC Glucose (mg/dL) 310 H (65-110) mg/dL Random Glucose 315 H (75-110) mg/dL Calcium 7.7 L (8.6-10.4) mg/dl Phosphorus 3.0 (2.5-4.5) mg/dL Magnesium 2.3 (1.6-2.3) mg/dL Total Bilirubin 0.7 (0.2-1.3) mg/dL AST 30 (17-59) U/L ALT 31 (21-72) U/L Alkaline Phosphatase 90 (38-126) U/L Total Protein 4.9 L (6.3-8.3) g/dL Albumin 2.3 L (3.5-5.0) g/dL Globulin 2.6 (2.2-3.9) gm/dL Albumin/Globulin Ratio 0.9 L (1.0-2.1) 02/10/18 Range/Units 17:34 WBC (4.8-10.8) K/uL RBC (4.40-5.90) Mil/uL Hgb (12.0-18.0) g/dL Hct (35.0-51.0) % MCV (80.0-94.0) fL MCH (27.0-31.0) pg MCHC (33.0-37.0) g/dL RDW (11.5-14.5) % Plt Count (130-400) K/uL MPV (7.2-11.7) fL Neut % (Auto) (50.0-75.0) % Lymph % (Auto) (20.0-40.0) % [place] % (Auto) (0.0-10.0) % Eos % (Auto) (0.0-4.0) % Baso % (Auto) (0.0-2.0) % Neut # (Auto) (1.8-7.0) K/uL Lymph # (Auto) (1.0-4.3) K/uL [place] # (Auto) (0.0-0.8) K/uL Eos # (Auto) (0.0-0.7) K/uL Baso # (Auto) (0.0-0.2) K/uL Sodium (132-148) mmol/L Potassium (3.6-5.2) mmol/L Chloride (98-107) mmol/L Carbon Dioxide (22-30) mmol/L Anion Gap (10-20) BUN (9-20) mg/dL Creatinine (0.8-1.5) mg/dL Est GFR ( Amer) Est GFR (Non-Af Amer) POC Glucose (mg/dL) 320 H (65-110) mg/dL Random Glucose (75-110) mg/dL Calcium (8.6-10.4) mg/dl Phosphorus (2.5-4.5) mg/dL Magnesium (1.6-2.3) mg/dL Total Bilirubin (0.2-1.3) mg/dL AST (17-59) U/L ALT (21-72) U/L Alkaline Phosphatase (38-126) U/L Total Protein (6.3-8.3) g/dL Albumin (3.5-5.0) g/dL Globulin (2.2-3.9) gm/dL Albumin/Globulin Ratio (1.0-2.1) Laboratory Results - last 24 hr 02/10/18 02/10/18 02/11/18 17:34 23:42 06:31 WBC RBC Hgb Hct MCV MCH MCHC RDW Plt Count MPV Neut % (Auto) Lymph % (Auto) [place] % (Auto) Eos % (Auto) Baso % (Auto) Neut # (Auto) Lymph # (Auto) [place] # (Auto) Eos # (Auto) Baso # (Auto) Sodium 138 Potassium 3.5 L Chloride 103 Carbon Dioxide 29 Anion Gap 10 BUN 33 H Creatinine 1.0 Est GFR ( Amer) > 60 Est GFR (Non-Af Amer) > 60 POC Glucose (mg/dL) 320 H 310 H Random Glucose 315 H Calcium 7.7 L Phosphorus Magnesium Total Bilirubin 0.7 AST 30 ALT 31 Alkaline Phosphatase 90 Total Protein 4.9 L Albumin 2.3 L Globulin 2.6 Albumin/Globulin Ratio 0.9 L 02/11/18 02/11/18 02/11/18 06:31 06:32 06:38 WBC 5.6 RBC 3.24 L Hgb 10.2 L Hct 30.3 L MCV 93.6 MCH 31.5 H MCHC 33.7 RDW 12.5 Plt Count 61 L MPV 12.3 H Neut % (Auto) 69.9 Lymph % (Auto) 19.3 L [place] % (Auto) 6.0 Eos % (Auto) 4.4 H Baso % (Auto) 0.4 Neut # (Auto) 3.9 Lymph # (Auto) 1.1 [place] # (Auto) 0.3 Eos # (Auto) 0.2 Baso # (Auto) 0.0 Sodium Potassium Chloride Carbon Dioxide Anion Gap BUN Creatinine Est GFR ( Amer) Est GFR (Non-Af Amer) POC Glucose (mg/dL) 347 H Random Glucose Calcium Phosphorus 3.0 Magnesium 2.3 Total Bilirubin AST ALT Alkaline Phosphatase Total Protein Albumin Globulin Albumin/Globulin Ratio 02/11/18 11:27 WBC RBC Hgb Hct MCV MCH MCHC RDW Plt Count MPV Neut % (Auto) Lymph % (Auto) [place] % (Auto) Eos % (Auto) Baso % (Auto) Neut # (Auto) Lymph # (Auto) [place] # (Auto) Eos # (Auto) Baso # (Auto) Sodium Potassium Chloride Carbon Dioxide Anion Gap BUN Creatinine Est GFR ( Amer) Est GFR (Non-Af Amer) POC Glucose (mg/dL) 330 H Random Glucose Calcium Phosphorus Magnesium Total Bilirubin AST ALT Alkaline Phosphatase Total Protein Albumin Globulin Albumin/Globulin Ratio Fingerstick Blood Sugar Results: 306
--- NOTE | 2018-02-11 15:53 | CP.PCM.PN ---
Subjective - Date & Time of Evaluation Date of Evaluation: 02/11/18 Time of Evaluation: 07:00 - Subjective Subjective: intubated still but more alert and moving his extremities all recent cultures are negative Objective - Vital Signs/Intake and Output Vital Signs (last 24 hours): Temp Pulse Resp BP Pulse Ox 98.4 F 65 25 H 95/47 L 98 02/11/18 12:00 02/11/18 15:00 02/11/18 15:00 02/11/18 14:58 02/11/18 15:00 Intake and Output: 02/11/18 02/11/18 06:59 18:59 Intake Total 2300 1605 Output Total 980 500 Balance 1320 1105 - Medications Medications: Current Medications Acetaminophen (Tylenol 650mg/20.3ml Solution Ud) 650 mg NG Q6 PRN PRN Reason: GIVE FOR TEMP. 100*F OR ABOVE Last Admin: 02/05/18 20:48 Dose: 650 mg Albuterol/Ipratropium (Duoneb 3 Mg/0.5 Mg (3 Ml) Ud) 3 ml INH RQ6 [facility] Last Admin: 02/11/18 13:14 Dose: 3 ml Apixaban (Eliquis) 10 mg PO BID [facility] Stop: 02/16/18 18:01 Last Admin: 02/11/18 10:05 Dose: 10 mg Aspirin (Aspirin Chewable) 81 mg PO DAILY [facility] Last Admin: 02/11/18 10:05 Dose: 81 mg Carvedilol (Coreg) 12.5 mg PO BID [facility] Last Admin: 02/11/18 10:05 Dose: 12.5 mg Hydralazine HCl (Apresoline) 100 mg PO Q8 [facility] Last Admin: 02/11/18 13:50 Dose: 100 mg Levetiracetam 500 mg/ Dextrose 55 mls @ 420 mls/hr IVPB Q12H [facility] Last Admin: 02/11/18 10:05 Dose: 420 mls/hr Vancomycin HCl 1 gm/ Dextrose 250 mls @ 166.7 mls/hr IVPB Q48H [facility] PRN Reason: Protocol Last Admin: 02/10/18 18:47 Dose: 166.7 mls/hr Cefepime HCl (Maxipime Iv 2 Gm Premix) 2 gm in 100 mls @ 200 mls/hr IVPB Q12H [facility] PRN Reason: Protocol Stop: 02/13/18 19:01 Last Admin: 02/11/18 06:31 Dose: 200 mls/hr Acyclovir 750 mg/ Dextrose 250 mls @ 100 mls/hr IV Q12H [facility] PRN Reason: Protocol Last Admin: 02/11/18 07:39 Dose: 100 mls/hr Insulin Aspart (Novolog) 0 unit SC Q6 [facility] PRN Reason: Protocol Last Admin: 02/11/18 12:13 Dose: 8 unit Insulin Glargine (Lantus) 20 unit SC Q12H [facility] Last Admin: 02/11/18 08:39 Dose: 20 u Tamsulosin HCl (Flomax) 0.4 mg PO DAILY [facility] Last Admin: 02/11/18 10:05 Dose: 0.4 mg - Labs Labs: 02/11/18 06:32 02/11/18 06:31 PT 12.4 SECONDS (9.7-12.2) H 02/02/18 06:19 INR 1.1 02/02/18 06:19 APTT 50 SECONDS (21-34) H D 02/09/18 12:02 - Constitutional Appears: Non-toxic, Chronically Ill - Head Exam Head Exam: NORMOCEPHALIC - Eye Exam Eye Exam: PERRL - ENT Exam ENT Exam: Mucous Membranes Dry - Neck Exam Neck Exam: absent: Lymphadenopathy - Respiratory Exam Respiratory Exam: Decreased Breath Sounds - Cardiovascular Exam Cardiovascular Exam: REGULAR RHYTHM - GI/Abdominal Exam GI & Abdominal Exam: Distended, Soft - Rectal Exam Rectal Exam: Deferred - Exam Exam: NORMAL INSPECTION - Extremities Exam Extremities Exam: absent: Pedal Edema - Back Exam Back Exam: absent: CVA tenderness (L), CVA tenderness (R) - Neurological Exam Neurological Exam: Altered - Psychiatric Exam Psychiatric exam: Depressed - Skin Skin Exam: Dry Assessment and Plan (1) Sepsis Status: Acute (2) Sepsis Status: Acute (3) COPD (chronic obstructive pulmonary disease) Status: Acute (4) Congestive heart failure Status: Acute (5) Diabetes Status: Acute (6) Encephalopathy Status: Acute - Assessment and Plan (Free Text) Assessment: cultures remain neg no recent lp done iv rx in progress s/p PE prognosis remains guarded
--- NOTE | 2018-02-11 16:08 | CP.PCM.PN ---
Subjective - Date & Time of Evaluation Date of Evaluation: 02/10/18 Time of Evaluation: 18:45 - Subjective Subjective: Pt seen and examined, pt is more awake and alert is on ventilator on FiO2 of 30% , he is opening eyes spontaneously responding to verbal stimuli Objective - Vital Signs/Intake and Output Vital Signs (last 24 hours): Temp Pulse Resp BP Pulse Ox 98.4 F 65 25 H 95/47 L 98 02/11/18 12:00 02/11/18 15:00 02/11/18 15:00 02/11/18 14:58 02/11/18 15:00 Intake and Output: 02/11/18 02/11/18 06:59 18:59 Intake Total 2300 1605 Output Total 980 500 Balance 1320 1105 - Medications Medications: Current Medications Acetaminophen (Tylenol 650mg/20.3ml Solution Ud) 650 mg NG Q6 PRN PRN Reason: GIVE FOR TEMP. 100*F OR ABOVE Last Admin: 02/05/18 20:48 Dose: 650 mg Albuterol/Ipratropium (Duoneb 3 Mg/0.5 Mg (3 Ml) Ud) 3 ml INH RQ6 [facility] Last Admin: 02/11/18 13:14 Dose: 3 ml Apixaban (Eliquis) 10 mg PO BID [facility] Stop: 02/16/18 18:01 Last Admin: 02/11/18 10:05 Dose: 10 mg Aspirin (Aspirin Chewable) 81 mg PO DAILY [facility] Last Admin: 02/11/18 10:05 Dose: 81 mg Carvedilol (Coreg) 12.5 mg PO BID [facility] Last Admin: 02/11/18 10:05 Dose: 12.5 mg Hydralazine HCl (Apresoline) 100 mg PO Q8 [facility] Last Admin: 02/11/18 13:50 Dose: 100 mg Levetiracetam 500 mg/ Dextrose 55 mls @ 420 mls/hr IVPB Q12H [facility] Last Admin: 02/11/18 10:05 Dose: 420 mls/hr Vancomycin HCl 1 gm/ Dextrose 250 mls @ 166.7 mls/hr IVPB Q48H [facility] PRN Reason: Protocol Last Admin: 02/10/18 18:47 Dose: 166.7 mls/hr Cefepime HCl (Maxipime Iv 2 Gm Premix) 2 gm in 100 mls @ 200 mls/hr IVPB Q12H [facility] PRN Reason: Protocol Stop: 02/13/18 19:01 Last Admin: 02/11/18 06:31 Dose: 200 mls/hr Acyclovir 750 mg/ Dextrose 250 mls @ 100 mls/hr IV Q12H [facility] PRN Reason: Protocol Last Admin: 02/11/18 07:39 Dose: 100 mls/hr Insulin Aspart (Novolog) 0 unit SC Q6 [facility] PRN Reason: Protocol Last Admin: 02/11/18 12:13 Dose: 8 unit Insulin Glargine (Lantus) 20 unit SC Q12H [facility] Last Admin: 02/11/18 08:39 Dose: 20 u Tamsulosin HCl (Flomax) 0.4 mg PO DAILY [facility] Last Admin: 02/11/18 10:05 Dose: 0.4 mg - Labs Labs: 02/11/18 06:32 02/11/18 06:31 PT 12.4 SECONDS (9.7-12.2) H 02/02/18 06:19 INR 1.1 02/02/18 06:19 APTT 50 SECONDS (21-34) H D 02/09/18 12:02 - Constitutional Appears: No Acute Distress - Head Exam Head Exam: ATRAUMATIC, NORMAL INSPECTION, NORMOCEPHALIC - Eye Exam Eye Exam: EOMI, Normal appearance, PERRL Pupil Exam: NORMAL ACCOMODATION, PERRL - Respiratory Exam Respiratory Exam: Decreased Breath Sounds, Rales, Rhonchi - Cardiovascular Exam Cardiovascular Exam: REGULAR RHYTHM, +S1, +S2. absent: Murmur - GI/Abdominal Exam GI & Abdominal Exam: Soft, Normal Bowel Sounds. absent: Tenderness Assessment and Plan (1) Status epilepticus Status: Acute (2) COPD (chronic obstructive pulmonary disease) Status: Acute (3) Congestive heart failure Status: Acute (4) Diabetes Status: Acute (5) Hypernatremia Status: Acute (6) Acute respiratory failure Assessment & Plan: on MV attempt weaning once pt is stable PEG placement Status: Acute
--- NOTE | 2018-02-11 16:18 | CP.PCM.PN ---
Subjective - Date & Time of Evaluation Date of Evaluation: 02/11/18 Time of Evaluation: 19:00 - Subjective Subjective: Pt seen and examined, pt is more awake and alert is on ventilator on FiO2 of 30% , he is opening eyes spontaneously responding to verbal stimuli Objective - Vital Signs/Intake and Output Vital Signs (last 24 hours): Temp Pulse Resp BP Pulse Ox 98.4 F 76 24 117/68 99 02/11/18 12:00 02/11/18 16:00 02/11/18 16:00 02/11/18 15:59 02/11/18 16:00 Intake and Output: 02/11/18 02/11/18 06:59 18:59 Intake Total 2300 1655 Output Total 980 535 Balance 1320 1120 - Medications Medications: Current Medications Acetaminophen (Tylenol 650mg/20.3ml Solution Ud) 650 mg NG Q6 PRN PRN Reason: GIVE FOR TEMP. 100*F OR ABOVE Last Admin: 02/05/18 20:48 Dose: 650 mg Albuterol/Ipratropium (Duoneb 3 Mg/0.5 Mg (3 Ml) Ud) 3 ml INH RQ6 [facility] Last Admin: 02/11/18 13:14 Dose: 3 ml Apixaban (Eliquis) 10 mg PO BID [facility] Stop: 02/16/18 18:01 Last Admin: 02/11/18 10:05 Dose: 10 mg Aspirin (Aspirin Chewable) 81 mg PO DAILY [facility] Last Admin: 02/11/18 10:05 Dose: 81 mg Carvedilol (Coreg) 12.5 mg PO BID [facility] Last Admin: 02/11/18 10:05 Dose: 12.5 mg Hydralazine HCl (Apresoline) 100 mg PO Q8 [facility] Last Admin: 02/11/18 13:50 Dose: 100 mg Levetiracetam 500 mg/ Dextrose 55 mls @ 420 mls/hr IVPB Q12H [facility] Last Admin: 02/11/18 10:05 Dose: 420 mls/hr Vancomycin HCl 1 gm/ Dextrose 250 mls @ 166.7 mls/hr IVPB Q48H [facility] PRN Reason: Protocol Last Admin: 02/10/18 18:47 Dose: 166.7 mls/hr Cefepime HCl (Maxipime Iv 2 Gm Premix) 2 gm in 100 mls @ 200 mls/hr IVPB Q12H [facility] PRN Reason: Protocol Stop: 02/13/18 19:01 Last Admin: 02/11/18 06:31 Dose: 200 mls/hr Acyclovir 750 mg/ Dextrose 250 mls @ 100 mls/hr IV Q12H [facility] PRN Reason: Protocol Last Admin: 02/11/18 07:39 Dose: 100 mls/hr Insulin Aspart (Novolog) 0 unit SC Q6 [facility] PRN Reason: Protocol Last Admin: 02/11/18 12:13 Dose: 8 unit Insulin Glargine (Lantus) 20 unit SC Q12H [facility] Last Admin: 02/11/18 08:39 Dose: 20 u Tamsulosin HCl (Flomax) 0.4 mg PO DAILY [facility] Last Admin: 02/11/18 10:05 Dose: 0.4 mg - Labs Labs: 02/11/18 06:32 02/11/18 06:31 PT 12.4 SECONDS (9.7-12.2) H 02/02/18 06:19 INR 1.1 02/02/18 06:19 APTT 50 SECONDS (21-34) H D 02/09/18 12:02 Assessment and Plan (1) Status epilepticus Status: Acute (2) COPD (chronic obstructive pulmonary disease) Status: Acute (3) Congestive heart failure Status: Acute (4) Diabetes Status: Acute (5) Hypernatremia Status: Acute (6) Acute respiratory failure Status: Acute
[2018-02-11] MEDS ORDERED: Potassium Chloride 20 mEq/15 ml LIQ UD PO STA (21:06)
[2018-02-12] MEDS: (Novolog) Insulin Aspart, Recombinant 100 u/ml 10 ml vial SC SCH ×5 (00:22→23:50)
[2018-02-12] MEDS: Albuterol-Ipratrop 3 mg / 0.5 (3 ml) UD INH SCH ×4 (01:16→20:46)
--- NOTE | 2018-02-12 05:38 | PN ---
DATE: 02/09/2018 FOLLOWUP RENAL CONSULTATION LOCATION: The patient is located in ICU, bed 7. REQUESTED BY: Arash Rose MD REASON FOR FOLLOWUP: Hypernatremia, acute renal failure. HISTORY OF PRESENT ILLNESS: Mr. Latif is a 67 years old elderly male with a history of longstanding hypertension, diabetes, CVA, coronary artery disease, status post CABG who was admitted with altered mental status, status post seizures witnessed in the emergency room, intubated, and subsequently transferred to ICU. After few weeks, the patient was extubated and transferred back to medical floor. The patient had LINE STAKER, and the patient was found to have massive PE and intubated and transferred to ICU. Initially, started on heparin, now heparin was discontinued and started on Eliquis for thrombocytopenia. The patient is on ventilator, moving both upper extremities spontaneously, not following commands. PHYSICAL EXAMINATION: VITAL SIGNS: As follows, blood pressure 100/54, pulse 79, respirations 21, temperature 98.4, saturation 100%. Height 5 feet 9 inches and weight is 203 pounds. GENERAL: Mr. Latif is 67 years old elderly male, well-built, well-nourished, not in distress, on ventilator. HEENT: Pupils normal and reactive to light and accommodation. Conjunctivae pink. Sclerae anicteric, on ventilator. No thyroid enlargement. LUNGS: Symmetric on both sides. Bilateral breath sounds present. No crackles. CVS: [place] at the fifth intercostal space, midclavicular line. S1, S2 audible. No murmur or gallop. The patient has midsternal scar present from the previous CABG. ABDOMEN: Normal in appearance, soft, tympanic. No guarding. No rigidity. No hepatosplenomegaly. DROSSER: The patient is on ventilator, spontaneously moving both upper extremities. Not responding to deep painful stimuli or verbal stimuli. EXTREMITIES: No cyanosis, no clubbing, no edema. MEDICATIONS: His current medications include as follows, acyclovir 750 mg every 12 hours, hydralazine 100 mg p.o. every 8 hours, aspirin 81 mg p.o. daily, Coreg 12.5 mg p.o. b.i.d., IV fluids D5W at 125 mL/hour, DuoNeb inhaler, Eliquis 10 mg p.o. b.i.d., Flomax 0.4 mg p.o. daily, Keppra 500 mg every 12 hours, cefepime 2 gm IV every 12 hours, vancomycin 1 gm every 48 hours, NovoLog for sliding scale. His I's and O's, intake is 4726 and output is 930 mL. LABORATORY DATA: Include as follows, as of 02/09/2018, WBC 7.2, hemoglobin 11.9, hematocrit 36.5, platelets 77. Sodium 152, potassium 3.6, chloride 113, CO2 of 28, BUN 51, creatinine 1.8, glucose 445, calcium is 8, total bili 0.8, AST 26, ALT 35, alkaline phosphatase 64, CPK 60, CK-MB 0.99, troponin 0.08, total protein 5.2, albumin 2.6. Urine for tox screen is positive for benzodiazepines, and ammonia level is 12; and CT of the chest as of 02/08/2018, impression, saddle embolus extending into the fourth right and left lower lobe pulmonary arteries with occlusive thrombi in the lower lobe pulmonary branches bilaterally, bilateral upper lobe pulmonary emboli. IMPRESSION: In summary, Mr. Latif is 67 years old elderly male with history of hypertension, diabetes, cerebrovascular accident, coronary artery disease, status post coronary artery bypass graft, altered mental status, status post polyuria, hypernatremia two weeks ago, now the patient was again found to have hypernatremia, and fever, status post LINE STAKER for CT scan consistent with saddle embolus. 1. Hypernatremia secondary to intravascular depletion, secondary to most likely osmotic diuresis and intravascular depletion. 2. Acute renal failure. 3. Pulmonary embolism. 4. Respiratory failure. 5. Hypertension. 6. Uncontrolled diabetes. PLAN: Continue D5W 125 mL/hour for severe hypernatremia and also continue free water by NG tube 300 mL every 6 hours, and need strict control of the sugars. Keep the sugars below 180 to prevent osmotic diuresis, and continue antibiotics as per ID recommendations of vancomycin, cefepime, and acyclovir. Overall, prognosis is very poor. Thank you for allowing me to participate in your patient's care. Baldemar Ruiz MD
--- NOTE | 2018-02-12 05:39 | PN ---
DATE: 02/11/2018 FOLLOWUP RENAL CONSULTATION LOCATION: The patient is located in ICU, bed 7. REQUESTED BY: Arash Rose MD REASON FOR FOLLOWUP: Hypernatremia, acute renal failure, pulmonary embolism, respiratory failure. HISTORY OF PRESENT ILLNESS: Mr. Latif is 67 years old elderly male with a past medical history significant for longstanding hypertension, diabetes, coronary artery disease, status post CABG, CVA who was admitted with altered mental status, found to have seizures, status post intubation, and admit to ICU initially. Subsequently, the patient was treated for polyuria and hypernatremia, osmotic diuresis, and subsequently, the patient was extubated and transferred to medical floor. The patient was admitted back to ICU last week with altered mental status and fever and found to have a saddle embolus to the lung and also hypernatremia, status post treatment for the hypernatremia with gentle IV hydration. The patient remains intubated and try to open eyes sometimes to verbal stimuli and spontaneous movement of all four extremities. Unable to communicate verbally meaningfully. PHYSICAL EXAMINATION: VITAL SIGNS: As follows, blood pressure is 111/57, pulse 73, respirations 16, temperature 98.4, height is 5 feet 9 inches, and weight is 208 pounds. GENERAL: Mr. Latif is a 67 years old elderly male, well-built, well-nourished, on ventilator. HEENT: Pupils are normal, conjunctivae pink. Sclerae anicteric, on ventilator. No thyroid enlargement. LUNGS: Symmetric on both sides. Bilateral breath sounds present. No crackles. CVS: [place] at the fifth intercostal space, midclavicular line. S1, S2 audible. No murmur or gallop. ABDOMEN: Normal in appearance, soft, tympanic. No guarding. No rigidity. No hepatosplenomegaly. ELECTRICIAN CHIEF: The patient is on ventilator. Tried to open eyes, sometimes to verbal stimuli. Sensory system is grossly within normal limit. Motor system. The patient is moving all extremities spontaneously, not following commands. EXTREMITIES: No cyanosis, no clubbing. MEDICATIONS: Current medications include as follows, acyclovir 750 mg IV piggyback every 12 hours, hydralazine 100 mg every 8 hours, aspirin 81 mg, Coreg 12.5 mg, DuoNeb inhaler, Eliquis 10 mg p.o. b.i.d., Flomax 0.4 mg p.o. daily, Lantus 20 units subcu every 12 hours, Keppra 500 mg every 12 hours, cefepime 2 gm IV every 12 hours, NovoLog for sliding scale, Tylenol and vancomycin 1 gm IV piggyback every 48 hours. As of 02/08, urine culture was negative. MRSA screening was negative and blood culture x2 was negative day three x2. LABORATORY DATA: His current laboratory data include as follows, as of 02/11/2018, WBC 5.6, hemoglobin 10.2, hematocrit is 30.3, platelets 61, and MCV is 93.6. Sodium 138, potassium 3.5, chloride 103, CO2 of 29, BUN 33, creatinine 1.0, glucose is 347, calcium 7.7, phosphorus 3, magnesium 2.3. Total bili 0.7, AST 30, ALT 31, alkaline phosphatase is 90, total protein 4.9, albumin is 2.6. IMPRESSION: In summary, Mr. Latif is 67 years elderly male with history of hypertension, diabetes, hyperlipidemia, status post coronary artery bypass graft, cerebrovascular accident, status post seizures with altered mental status, and intubation x2 and positive for pulmonary emboli, saddle embolus, status post hypernatremia, and renal failure. 1. Status post hypernatremia. Serum sodium is improving. Continue NG tube free water 300 mL every 6 hours. 2. Acute renal failure. Renal function is improving. 3. Pulmonary embolus. 4. Respiratory failure. 5. Altered mental status. Continue his current medications, vancomycin and acyclovir. Follow with Neurology, and follow BMP in a.m. Renal function is improving. Thank you for allowing me to participate in your patient's care. Overall prognosis is guarded. Baldemar Ruiz MD
[2018-02-12 06:10] LABS: BASO % 0.3 % (0.0-2.0); EOS # 0.3 K/uL (0.0-0.7); EOS % 4.6 % (0.0-4.0); LYMPH # 1.2 K/uL (1.0-4.3); LYMPH % 21.2 % (20.0-40.0); MEAN CELL VOLUME 92.8 fL (80.0-94.0); MEAN CORPUSCULAR HEMOGLOBIN 31.9 pg (27.0-31.0); MEAN CORPUSCULAR HGB CONC 34.4 g/dL (33.0-37.0); MEAN PLATELET VOLUME 12.3 fL (7.2-11.7); MONO # 0.4 K/uL (0.0-0.8); MONO % 6.4 % (0.0-10.0); NEUT # 3.7 K/uL (1.8-7.0); NEUT % 67.5 % (50.0-75.0); NRBC % 0.1 % (0.0-2.0); RBC 3.43 Mil/uL (4.40-5.90); RED CELL DISTRIBUTION WIDTH 12.7 % (11.5-14.5); WHITE BLOOD COUNT 5.6 K/uL (4.8-10.8)
[2018-02-12] MEDS: Cefepime IV 2 gm in Dextrose 2 GM/100 ML BAG IVPB SCH ×2 (06:28→18:17)
[2018-02-12 06:42] LABS: ALB/GLOB RATIO 0.9 (1.0-2.1); ALBUMIN 2.6 g/dL (3.5-5.0); ALT/SGPT 27 U/L (21-72); AST/SGOT 26 U/L (17-59); BLOOD UREA NITROGEN 24 mg/dL (9-20); GFR AFRICAN-AMERICAN > 60; GFR NON-AFRICAN AMERICAN > 60
--- NOTE | 2018-02-12 07:01 | CP.PCM.PN ---
Subjective - Date & Time of Evaluation Date of Evaluation: 02/12/18 Time of Evaluation: 06:59 - Subjective Subjective: Mr. Latif was seen and examined at the bedside in ICU. He is n mechanical ventilator on PRVC mode. He response to pain stimuli with facial grimacing and moving his right upper extremity, GCS-4T.He is able to open his eyes spontaneously with both verbal and tactile stimuli. He was not able to follow commands this morning, however, per staff, he is able to follow simple commands from the family.He is able to move all extremities, but really stiffen his upper extremities as a response to any stimuli.. His eyes remain unequal left 3mm and right 2 mm sluggish to react which was his baseline. There was no untoward events overnight. Objective - Vital Signs/Intake and Output Vital Signs (last 24 hours): Temp Pulse Resp BP Pulse Ox 98 F 82 16 133/63 98 02/12/18 04:00 02/12/18 06:00 02/12/18 06:00 02/12/18 05:58 02/12/18 06:00 Intake and Output: 02/11/18 02/12/18 18:59 06:59 Intake Total 1855 2200 Output Total 1695 2050 Balance 160 150 - Medications Medications: Current Medications Acetaminophen (Tylenol 650mg/20.3ml Solution Ud) 650 mg NG Q6 PRN PRN Reason: GIVE FOR TEMP. 100*F OR ABOVE Last Admin: 02/05/18 20:48 Dose: 650 mg Albuterol/Ipratropium (Duoneb 3 Mg/0.5 Mg (3 Ml) Ud) 3 ml INH RQ6 [facility] Last Admin: 02/12/18 01:16 Dose: 3 ml Apixaban (Eliquis) 10 mg PO BID [facility] Stop: 02/16/18 18:01 Last Admin: 02/11/18 17:54 Dose: 10 mg Aspirin (Aspirin Chewable) 81 mg PO DAILY [facility] Last Admin: 02/11/18 10:05 Dose: 81 mg Carvedilol (Coreg) 12.5 mg PO BID [facility] Last Admin: 02/11/18 17:55 Dose: 12.5 mg Hydralazine HCl (Apresoline) 100 mg PO Q8 [facility] Last Admin: 02/12/18 06:28 Dose: 100 mg Levetiracetam 500 mg/ Dextrose 55 mls @ 420 mls/hr IVPB Q12H [facility] Last Admin: 02/11/18 21:27 Dose: 420 mls/hr Vancomycin HCl 1 gm/ Dextrose 250 mls @ 166.7 mls/hr IVPB Q48H [facility] PRN Reason: Protocol Last Admin: 02/10/18 18:47 Dose: 166.7 mls/hr Cefepime HCl (Maxipime Iv 2 Gm Premix) 2 gm in 100 mls @ 200 mls/hr IVPB Q12H [facility] PRN Reason: Protocol Stop: 02/13/18 19:01 Last Admin: 02/12/18 06:28 Dose: 200 mls/hr Acyclovir 750 mg/ Dextrose 250 mls @ 100 mls/hr IV Q12H [facility] PRN Reason: Protocol Last Admin: 02/11/18 19:54 Dose: 100 mls/hr Insulin Aspart (Novolog) 0 unit SC Q6 [facility] PRN Reason: Protocol Last Admin: 02/12/18 06:30 Dose: 2 unit Insulin Glargine (Lantus) 20 unit SC Q12H [facility] Last Admin: 02/11/18 19:55 Dose: 20 u Tamsulosin HCl (Flomax) 0.4 mg PO DAILY [facility] Last Admin: 02/11/18 10:05 Dose: 0.4 mg - Labs Labs: 02/12/18 05:55 02/12/18 05:58 PT 12.4 SECONDS (9.7-12.2) H 02/02/18 06:19 INR 1.1 02/02/18 06:19 APTT 50 SECONDS (21-34) H D 02/09/18 12:02 - Constitutional Appears: No Acute Distress - Head Exam Head Exam: NORMAL INSPECTION - Eye Exam Pupil Exam: PERRL Additional comments: left 3 mm and right 2 mm, sluggish - Neurological Exam Neurological Exam: Awake Neuro motor strength exam: Left Upper Extremity: 2/1, Right Upper Extremity: 2/1 , Left Lower Extremity: 0, Right Lower Extremity: 0 Additional comments: Neurological unchanged from previous examination. Assessment and Plan (1) Status epilepticus Assessment & Plan: Case discussed with Dr. Perez, continue all current medical regimen. Recommend PT eval and treat for prevention of deconditioning. Treat any underlying electrolyte abnormalities. Status: Acute
[2018-02-12] MEDS ORDERED: Potassium Chloride 20 mEq/15 ml LIQ UD PO ONE (07:26)
[2018-02-12] MEDS: ACYCLOVIR IV SCH ×2 (08:00→20:20)
[2018-02-12] MEDS: WATER IV SCH ×2 (08:00→20:20)
[2018-02-12] MEDS: DEXTROSE 5% IV SCH ×2 (08:00→20:20)
[2018-02-12] MEDS: (Lantus) Insulin Glargine, Recombinant SC SCH ×2 (09:00→20:21)
--- NOTE | 2018-02-12 09:54 | RAD ---
HISTORY: intubated COMPARISON: 02/10/2018 FINDINGS: LUNGS: No active pulmonary disease. PLEURA: No significant pleural effusion identified, no pneumothorax apparent. CARDIOVASCULAR: ETT and NG tube unchanged grossly in position. Left subclavian central venous catheter. OSSEOUS STRUCTURES: No significant abnormalities. VISUALIZED UPPER ABDOMEN: Normal. OTHER FINDINGS: None. IMPRESSION: No active disease.
[2018-02-12] MEDS: DEXTROSE 5% IVPB SCH ×2 (09:56→21:48)
[2018-02-12] MEDS: LEVETIRACETAM IVPB SCH ×2 (09:56→21:48)
[2018-02-12] MEDS: WATER IVPB SCH ×2 (09:56→21:48)
[2018-02-12 10:53] LABS: ARTERIAL BLOOD GAS HCO3 27.8 mmol/L (21-28); ARTERIAL BLOOD GAS HEMOGLOBIN 13.1 g/dL (11.7-17.4); ARTERIAL BLOOD GAS O2 SAT 97.6 % (95-98); ARTERIAL BLOOD GAS PCO2 39 mm/Hg (35-45); ARTERIAL BLOOD GAS PH 7.46 (7.35-7.45); ARTERIAL BLOOD GAS PO2 78 mm/Hg (80-100); ARTERIAL BLOOD GAS TCO2 28.9 mmol/L (22-28)
--- NOTE | 2018-02-12 11:53 | CP.CCUPN ---
<Amaya Castañeda - Last Filed: 02/12/18 12:07> CCU Subjective - Physician Review Subjective (Free Text): 02/12/18 11:51 Patient seen and examined at bedside. Per nursing no acute events overnight. Patient is intubated, awake and alert. Following simple commands. Will place on CPAP trial. Possible extubation later today. CCU Objective - Vital Signs / Intake & Output Vital Signs (Last 4 hours): Vital Signs Temp Pulse Resp BP Pulse Ox 02/12/18 10:00 80 20 97 02/12/18 09:58 77 11 L 144/63 98 02/12/18 09:51 130/51 L 02/12/18 09:32 76 12 130/51 L 99 02/12/18 09:00 65 17 99 02/12/18 08:59 72 18 102/45 L 98 02/12/18 08:00 97.3 F L 78 15 100 02/12/18 07:58 75 20 154/73 H 100 Intake and Output (Last 8hrs): Intake & Output 02/11/18 02/12/18 02/12/18 22:59 06:59 14:59 Intake Total 1200 1300 900 Output Total 1175 1350 650 Balance 25 -50 250 Weight 96.57 kg Intake: Intake, IV Amount 400 100 300 Left Medial Port Internal 400 100 300 Jugular Tube Feeding 400 400 200 Other 400 800 400 Output: Urine 1175 1350 650 2-way Urethral 1175 1350 650 Other: # Bowel Movements 1 - Physical Exam Head: Positive for: Atraumatic, Normocephalic Pupils: Positive for: PERRL Conjunctiva: Positive for: Normal Mouth: Positive for: Moist Mucous Membranes, Other (ETT) Neck: Positive for: Normal Range of Motion Respiratory/Chest: Positive for: Clear to Auscultation, Tachypneic. Negative for: Respiratory Distress Cardiovascular: Positive for: Regular Rate and Rhythm, Normal S1, S2. Negative for: Tachycardic Abdomen: Positive for: Normal Bowel Sounds, Other (Obese). Negative for: Tenderness, Distention, Peritoneal Signs Lower Extremity: Positive for: Normal Inspection Neurological: Positive for: Other (Moves all extremities) Skin: Positive for: Warm, Dry Psychiatric: Positive for: Alert - Medications Active Medications: Active Medications Generic Name Dose Route Start Last Admin Trade Name Freq PRN Reason Stop Dose Admin Acetaminophen 650 mg 01/19/18 00:50 02/05/18 20:48 Tylenol 650mg/20.3ml Solution Ud NG 650 mg Q6 PRN Administration GIVE FOR TEMP. 100*F OR ABOVE Albuterol/Ipratropium 3 ml 01/26/18 20:00 02/12/18 07:40 Duoneb 3 Mg/0.5 Mg (3 Ml) Ud INH 3 ml RQ6 SHINE Administration Apixaban 10 mg 02/09/18 18:00 02/12/18 09:51 Eliquis PO 02/16/18 18:01 10 mg BID SHINE Administration Aspirin 81 mg 01/17/18 10:00 02/12/18 09:52 Aspirin Chewable PO 81 mg DAILY SHINE Administration Carvedilol 12.5 mg 01/22/18 09:07 02/12/18 09:51 Coreg PO 12.5 mg BID SHINE Administration Hydralazine HCl 100 mg 02/03/18 00:29 02/12/18 06:28 Apresoline PO 100 mg Q8 SHINE Administration Levetiracetam 500 mg/ Dextrose 55 mls @ 420 mls/hr 02/08/18 22:00 02/12/18 09 :56 IVPB 420 mls/hr Q12H SHINE Administration Vancomycin HCl 1 gm/ Dextrose 250 mls @ 166.7 mls/hr 02/08/18 19:30 02/10/18 18:47 IVPB 166.7 mls/hr Q48H SHINE Administration Protocol Cefepime HCl 2 gm in 100 mls @ 200 mls/hr 02/08/18 19:00 02/12/18 06:28 Maxipime Iv 2 Gm Premix IVPB 02/13/18 19:01 200 mls/hr Q12H SHINE Administration Protocol Acyclovir 750 mg/ Dextrose 250 mls @ 100 mls/hr 02/08/18 20:00 02/12/18 08:00 IV 100 mls/hr Q12H SHINE Administration Protocol Insulin Aspart 0 unit 02/09/18 18:56 02/12/18 06:30 Novolog SC 2 unit Q6 SHINE Administration Protocol Insulin Glargine 20 unit 02/09/18 08:00 02/12/18 09:00 Lantus SC 20 u Q12H SHINE Administration Tamsulosin HCl 0.4 mg 01/30/18 20:00 02/12/18 09:51 Flomax PO 0.4 mg DAILY SHINE Administration - Patient Studies Lab Studies: Microbiology Studies 02/08/18 20:58 Blood Culture - Preliminary Blood NO GROWTH AFTER 3 DAYS 02/08/18 20:58 Blood Culture - Preliminary Blood NO GROWTH AFTER 3 DAYS Lab Studies 02/12/18 02/12/18 02/12/18 Range/Units 11:28 10:45 05:58 WBC (4.8-10.8) K/uL RBC (4.40-5.90) Mil/uL Hgb (12.0-18.0) g/dL Hct (35.0-51.0) % MCV (80.0-94.0) fL MCH (27.0-31.0) pg MCHC (33.0-37.0) g/dL RDW (11.5-14.5) % Plt Count (130-400) K/uL MPV (7.2-11.7) fL Neut % (Auto) (50.0-75.0) % Lymph % (Auto) (20.0-40.0) % Garfield % (Auto) (0.0-10.0) % Eos % (Auto) (0.0-4.0) % Baso % (Auto) (0.0-2.0) % Neut # (Auto) (1.8-7.0) K/uL Lymph # (Auto) (1.0-4.3) K/uL Garfield # (Auto) (0.0-0.8) K/uL Eos # (Auto) (0.0-0.7) K/uL Baso # (Auto) (0.0-0.2) K/uL Puncture Site Lb pCO2 39 (35-45) mm/Hg pO2 78 L (80-100) mm/Hg HCO3 27.8 (21-28) mmol/L ABG pH 7.46 H (7.35-7.45) ABG Total CO2 28.9 H (22-28) mmol/L ABG O2 Saturation 97.6 (95-98) % ABG Base Excess 3.7 H (-2.0-3.0) mmol/L ABG Hemoglobin 13.1 (11.7-17.4) g/dL ABG Carboxyhemoglobin 1.9 H (0.5-1.5) % POC ABG HHb (Measured) 2.3 (0.0-5.0) % ABG Methemoglobin 0.9 (0.0-3.0) % Jamey Test Na A-a O2 Difference 87.0 mm/Hg Respiratory Index 1.1 Hgb O2 Saturation 94.9 L (95.0-98.0) % Mechanical Rate 16 FiO2 30.0 % Tidal Volume 500 PEEP 5 Sodium (132-148) mmol/L Potassium (3.6-5.2) mmol/L Chloride (98-107) mmol/L Carbon Dioxide (22-30) mmol/L Anion Gap (10-20) BUN (9-20) mg/dL Creatinine (0.8-1.5) mg/dL Est GFR ( Amer) Est GFR (Non-Af Amer) POC Glucose (mg/dL) 346 H (65-110) mg/dL Random Glucose (75-110) mg/dL Calcium (8.6-10.4) mg/dl Phosphorus (2.5-4.5) mg/dL Magnesium (1.6-2.3) mg/dL Total Bilirubin (0.2-1.3) mg/dL AST (17-59) U/L ALT (21-72) U/L Alkaline Phosphatase (38-126) U/L Total Protein (6.3-8.3) g/dL Albumin (3.5-5.0) g/dL Globulin (2.2-3.9) gm/dL Albumin/Globulin Ratio (1.0-2.1) UF Heparin Interp (Negative) Vancomycin Trough 5.2 (5.0-10.0) ug/mL Heparin-induced Plt Ab (Negative) POLO UFH Low Dose 0.1 % Release PLOO UFH Low Dose 0.5 % Release POLO UFH High Dose 100 % Release 02/12/18 02/12/18 02/12/18 Range/Units 05:58 05:55 05:23 WBC 5.6 (4.8-10.8) K/uL RBC 3.43 L (4.40-5.90) Mil/uL Hgb 11.0 L (12.0-18.0) g/dL Hct 31.9 L (35.0-51.0) % MCV 92.8 (80.0-94.0) fL MCH 31.9 H (27.0-31.0) pg MCHC 34.4 (33.0-37.0) g/dL RDW 12.7 (11.5-14.5) % Plt Count 77 L (130-400) K/uL MPV 12.3 H (7.2-11.7) fL Neut % (Auto) 67.5 (50.0-75.0) % Lymph % (Auto) 21.2 (20.0-40.0) % Garfield % (Auto) 6.4 (0.0-10.0) % Eos % (Auto) 4.6 H (0.0-4.0) % Baso % (Auto) 0.3 (0.0-2.0) % Neut # (Auto) 3.7 (1.8-7.0) K/uL Lymph # (Auto) 1.2 (1.0-4.3) K/uL Garfield # (Auto) 0.4 (0.0-0.8) K/uL Eos # (Auto) 0.3 (0.0-0.7) K/uL Baso # (Auto) 0.0 (0.0-0.2) K/uL Puncture Site pCO2 (35-45) mm/Hg pO2 (80-100) mm/Hg HCO3 (21-28) mmol/L ABG pH (7.35-7.45) ABG Total CO2 (22-28) mmol/L ABG O2 Saturation (95-98) % ABG Base Excess (-2.0-3.0) mmol/L ABG Hemoglobin (11.7-17.4) g/dL ABG Carboxyhemoglobin (0.5-1.5) % POC ABG HHb (Measured) (0.0-5.0) % ABG Methemoglobin (0.0-3.0) % Jamey Test A-a O2 Difference mm/Hg Respiratory Index Hgb O2 Saturation (95.0-98.0) % Mechanical Rate FiO2 % Tidal Volume PEEP Sodium 141 (132-148) mmol/L Potassium 3.3 L (3.6-5.2) mmol/L Chloride 103 (98-107) mmol/L Carbon Dioxide 29 (22-30) mmol/L Anion Gap 12 (10-20) BUN 24 H (9-20) mg/dL Creatinine 0.9 (0.8-1.5) mg/dL Est GFR ( Amer) > 60 Est GFR (Non-Af Amer) > 60 POC Glucose (mg/dL) 170 H (65-110) mg/dL Random Glucose 198 H (75-110) mg/dL Calcium 8.0 L (8.6-10.4) mg/dl Phosphorus 2.6 (2.5-4.5) mg/dL Magnesium 2.2 (1.6-2.3) mg/dL Total Bilirubin 0.7 (0.2-1.3) mg/dL AST 26 (17-59) U/L ALT 27 (21-72) U/L Alkaline Phosphatase 103 (38-126) U/L Total Protein 5.4 L (6.3-8.3) g/dL Albumin 2.6 L (3.5-5.0) g/dL Globulin 2.9 (2.2-3.9) gm/dL Albumin/Globulin Ratio 0.9 L (1.0-2.1) UF Heparin Interp (Negative) Vancomycin Trough (5.0-10.0) ug/mL Heparin-induced Plt Ab (Negative) POLO UFH Low Dose 0.1 % Release POLO UFH Low Dose 0.5 % Release POLO UFH High Dose 100 % Release 02/11/18 02/11/18 02/09/18 Range/Units 23:58 17:57 12:02 WBC (4.8-10.8) K/uL RBC (4.40-5.90) Mil/uL Hgb (12.0-18.0) g/dL Hct (35.0-51.0) % MCV (80.0-94.0) fL MCH (27.0-31.0) pg MCHC (33.0-37.0) g/dL RDW (11.5-14.5) % Plt Count (130-400) K/uL MPV (7.2-11.7) fL Neut % (Auto) (50.0-75.0) % Lymph % (Auto) (20.0-40.0) % Garfield % (Auto) (0.0-10.0) % Eos % (Auto) (0.0-4.0) % Baso % (Auto) (0.0-2.0) % Neut # (Auto) (1.8-7.0) K/uL Lymph # (Auto) (1.0-4.3) K/uL Garfield # (Auto) (0.0-0.8) K/uL Eos # (Auto) (0.0-0.7) K/uL Baso # (Auto) (0.0-0.2) K/uL Puncture Site pCO2 (35-45) mm/Hg pO2 (80-100) mm/Hg HCO3 (21-28) mmol/L ABG pH (7.35-7.45) ABG Total CO2 (22-28) mmol/L ABG O2 Saturation (95-98) % ABG Base Excess (-2.0-3.0) mmol/L ABG Hemoglobin (11.7-17.4) g/dL ABG Carboxyhemoglobin (0.5-1.5) % POC ABG HHb (Measured) (0.0-5.0) % ABG Methemoglobin (0.0-3.0) % Jamye Test A-a O2 Difference mm/Hg Respiratory Index Hgb O2 Saturation (95.0-98.0) % Mechanical Rate FiO2 % Tidal Volume PEEP Sodium (132-148) mmol/L Potassium (3.6-5.2) mmol/L Chloride (98-107) mmol/L Carbon Dioxide (22-30) mmol/L Anion Gap (10-20) BUN (9-20) mg/dL Creatinine (0.8-1.5) mg/dL Est GFR ( Amer) Est GFR (Non-Af Amer) POC Glucose (mg/dL) 299 H 246 H (65-110) mg/dL Random Glucose (75-110) mg/dL Calcium (8.6-10.4) mg/dl Phosphorus (2.5-4.5) mg/dL Magnesium (1.6-2.3) mg/dL Total Bilirubin (0.2-1.3) mg/dL AST (17-59) U/L ALT (21-72) U/L Alkaline Phosphatase (38-126) U/L Total Protein (6.3-8.3) g/dL Albumin (3.5-5.0) g/dL Globulin (2.2-3.9) gm/dL Albumin/Globulin Ratio (1.0-2.1) UF Heparin Interp (Negative) Vancomycin Trough (5.0-10.0) ug/mL Heparin-induced Plt Ab (Negative) POLO UFH Low Dose 0.1 0 % Release POLO UFH Low Dose 0.5 0 % Release POLO UFH High Dose 100 0 % Release 02/09/18 Range/Units 12:02 WBC (4.8-10.8) K/uL RBC (4.40-5.90) Mil/uL Hgb (12.0-18.0) g/dL Hct (35.0-51.0) % MCV (80.0-94.0) fL MCH (27.0-31.0) pg MCHC (33.0-37.0) g/dL RDW (11.5-14.5) % Plt Count (130-400) K/uL MPV (7.2-11.7) fL Neut % (Auto) (50.0-75.0) % Lymph % (Auto) (20.0-40.0) % Garfield % (Auto) (0.0-10.0) % Eos % (Auto) (0.0-4.0) % Baso % (Auto) (0.0-2.0) % Neut # (Auto) (1.8-7.0) K/uL Lymph # (Auto) (1.0-4.3) K/uL Garfield # (Auto) (0.0-0.8) K/uL Eos # (Auto) (0.0-0.7) K/uL Baso # (Auto) (0.0-0.2) K/uL Puncture Site pCO2 (35-45) mm/Hg pO2 (80-100) mm/Hg HCO3 (21-28) mmol/L ABG pH (7.35-7.45) ABG Total CO2 (22-28) mmol/L ABG O2 Saturation (95-98) % ABG Base Excess (-2.0-3.0) mmol/L ABG Hemoglobin (11.7-17.4) g/dL ABG Carboxyhemoglobin (0.5-1.5) % POC ABG HHb (Measured) (0.0-5.0) % ABG Methemoglobin (0.0-3.0) % Jamey Test A-a O2 Difference mm/Hg Respiratory Index Hgb O2 Saturation (95.0-98.0) % Mechanical Rate FiO2 % Tidal Volume PEEP Sodium (132-148) mmol/L Potassium (3.6-5.2) mmol/L Chloride (98-107) mmol/L Carbon Dioxide (22-30) mmol/L Anion Gap (10-20) BUN (9-20) mg/dL Creatinine (0.8-1.5) mg/dL Est GFR ( Amer) Est GFR (Non-Af Amer) POC Glucose (mg/dL) (65-110) mg/dL Random Glucose (75-110) mg/dL Calcium (8.6-10.4) mg/dl Phosphorus (2.5-4.5) mg/dL Magnesium (1.6-2.3) mg/dL Total Bilirubin (0.2-1.3) mg/dL AST (17-59) U/L ALT (21-72) U/L Alkaline Phosphatase (38-126) U/L Total Protein (6.3-8.3) g/dL Albumin (3.5-5.0) g/dL Globulin (2.2-3.9) gm/dL Albumin/Globulin Ratio (1.0-2.1) UF Heparin Interp Negative (Negative) Vancomycin Trough (5.0-10.0) ug/mL Heparin-induced Plt Ab Negative (Negative) POLO UFH Low Dose 0.1 0 % Release POLO UFH Low Dose 0.5 0 % Release POLO UFH High Dose 100 0 % Release Laboratory Results - last 24 hr 02/09/18 02/09/18 02/11/18 12:02 12:02 17:57 WBC RBC Hgb Hct MCV MCH MCHC RDW Plt Count MPV Neut % (Auto) Lymph % (Auto) Garfield % (Auto) Eos % (Auto) Baso % (Auto) Neut # (Auto) Lymph # (Auto) Garfield # (Auto) Eos # (Auto) Baso # (Auto) Puncture Site pCO2 pO2 HCO3 ABG pH ABG Total CO2 ABG O2 Saturation ABG Base Excess ABG Hemoglobin ABG Carboxyhemoglobin POC ABG HHb (Measured) ABG Methemoglobin Jamey Test A-a O2 Difference Respiratory Index Hgb O2 Saturation Mechanical Rate FiO2 Tidal Volume PEEP Sodium Potassium Chloride Carbon Dioxide Anion Gap BUN Creatinine Est GFR ( Amer) Est GFR (Non-Af Amer) POC Glucose (mg/dL) 246 H Random Glucose Calcium Phosphorus Magnesium Total Bilirubin AST ALT Alkaline Phosphatase Total Protein Albumin Globulin Albumin/Globulin Ratio UF Heparin Interp Negative Vancomycin Trough Heparin-induced Plt Ab Negative POLO UFH Low Dose 0.1 0 0 POLO UFH Low Dose 0.5 0 0 POLO UFH High Dose 100 0 0 02/11/18 02/12/18 02/12/18 23:58 05:23 05:55 WBC 5.6 RBC 3.43 L Hgb 11.0 L Hct 31.9 L MCV 92.8 MCH 31.9 H MCHC 34.4 RDW 12.7 Plt Count 77 L MPV 12.3 H Neut % (Auto) 67.5 Lymph % (Auto) 21.2 Garfield % (Auto) 6.4 Eos % (Auto) 4.6 H Baso % (Auto) 0.3 Neut # (Auto) 3.7 Lymph # (Auto) 1.2 Garfield # (Auto) 0.4 Eos # (Auto) 0.3 Baso # (Auto) 0.0 Puncture Site pCO2 pO2 HCO3 ABG pH ABG Total CO2 ABG O2 Saturation ABG Base Excess ABG Hemoglobin ABG Carboxyhemoglobin POC ABG HHb (Measured) ABG Methemoglobin Jamey Test A-a O2 Difference Respiratory Index Hgb O2 Saturation Mechanical Rate FiO2 Tidal Volume PEEP Sodium Potassium Chloride Carbon Dioxide Anion Gap BUN Creatinine Est GFR ( Amer) Est GFR (Non-Af Amer) POC Glucose (mg/dL) 299 H 170 H Random Glucose Calcium Phosphorus Magnesium Total Bilirubin AST ALT Alkaline Phosphatase Total Protein Albumin Globulin Albumin/Globulin Ratio UF Heparin Interp Vancomycin Trough Heparin-induced Plt Ab POLO UFH Low Dose 0.1 POLO UFH Low Dose 0.5 POLO UFH High Dose 100 02/12/18 02/12/18 02/12/18 05:58 05:58 10:45 WBC RBC Hgb Hct MCV MCH MCHC RDW Plt Count MPV Neut % (Auto) Lymph % (Auto) Garfield % (Auto) Eos % (Auto) Baso % (Auto) Neut # (Auto) Lymph # (Auto) Garfield # (Auto) Eos # (Auto) Baso # (Auto) Puncture Site Lb pCO2 39 pO2 78 L HCO3 27.8 ABG pH 7.46 H ABG Total CO2 28.9 H ABG O2 Saturation 97.6 ABG Base Excess 3.7 H ABG Hemoglobin 13.1 ABG Carboxyhemoglobin 1.9 H POC ABG HHb (Measured) 2.3 ABG Methemoglobin 0.9 Jamey Test Na A-a O2 Difference 87.0 Respiratory Index 1.1 Hgb O2 Saturation 94.9 L Mechanical Rate 16 FiO2 30.0 Tidal Volume 500 PEEP 5 Sodium 141 Potassium 3.3 L Chloride 103 Carbon Dioxide 29 Anion Gap 12 BUN 24 H Creatinine 0.9 Est GFR ( Amer) > 60 Est GFR (Non-Af Amer) > 60 POC Glucose (mg/dL) Random Glucose 198 H Calcium 8.0 L Phosphorus 2.6 Magnesium 2.2 Total Bilirubin 0.7 AST 26 ALT 27 Alkaline Phosphatase 103 Total Protein 5.4 L Albumin 2.6 L Globulin 2.9 Albumin/Globulin Ratio 0.9 L UF Heparin Interp Vancomycin Trough 5.2 Heparin-induced Plt Ab POLO UFH Low Dose 0.1 POLO UFH Low Dose 0.5 POLO UFH High Dose 100 02/12/18 11:28 WBC RBC Hgb Hct MCV MCH MCHC RDW Plt Count MPV Neut % (Auto) Lymph % (Auto) Garfield % (Auto) Eos % (Auto) Baso % (Auto) Neut # (Auto) Lymph # (Auto) Garfield # (Auto) Eos # (Auto) Baso # (Auto) Puncture Site pCO2 pO2 HCO3 ABG pH ABG Total CO2 ABG O2 Saturation ABG Base Excess ABG Hemoglobin ABG Carboxyhemoglobin POC ABG HHb (Measured) ABG Methemoglobin Jamey Test A-a O2 Difference Respiratory Index Hgb O2 Saturation Mechanical Rate FiO2 Tidal Volume PEEP Sodium Potassium Chloride Carbon Dioxide Anion Gap BUN Creatinine Est GFR ( Amer) Est GFR (Non-Af Amer) POC Glucose (mg/dL) 346 H Random Glucose Calcium Phosphorus Magnesium Total Bilirubin AST ALT Alkaline Phosphatase Total Protein Albumin Globulin Albumin/Globulin Ratio UF Heparin Interp Vancomycin Trough Heparin-induced Plt Ab POLO UFH Low Dose 0.1 POLO UFH Low Dose 0.5 POLO UFH High Dose 100 Fingerstick Blood Sugar Results: 170 Assessment/Plan - Assessment and Plan (Free Text) Assessment: 67 year old male with a past medical history of type 2 dm, hypertension, cva, s/ p cabg (8yrs ago), hyperlipidemia who was admitted to the ICU after being found unresponsive by daughter. Patient subsequently had a witnessed seizure while in the hospital and was transferred to the ICU for further monitoring. While in the ICU patient was extubated and downgraded to the floors. While on the floors , patient desat low 80s, reintubated for acute respiratory failure. Brought back to the ICU. -Patient is more awake and alert today, following simple commands -Will place on CPAP trial, possible extubation later this afternoon -ABG and CXR ordered -Continue Keppra IV -Continue antibiotics: Cefepime 2gm Q12H, Vancomycin 1gm Q48H, Acyclovir 750mg IV Q12H -Patient with Saddle PE, was on heparin drip but discontinued due to thrombocytopenia -Continue Eliquis 10mg PO BID (to continue for one week, then 5mg PO BID) -HIT workup in progress -Hypernatremia improved, -Hypokalemia, Potassium repleted -May need gastrostomy tube, general surgery following -Continue PT/OT -Continue to monitor in the ICU -Plan discussed with Dr Ulloa <Bill Ulloa - Last Filed: 02/12/18 19:07> CCU Objective - Vital Signs / Intake & Output Vital Signs (Last 4 hours): Vital Signs Temp Pulse Resp BP Pulse Ox 02/12/18 18:08 77 19 93/54 L 100 02/12/18 18:00 77 19 100 02/12/18 17:10 76 18 89/49 L 100 02/12/18 17:00 77 18 100 02/12/18 16:10 74 27 H 127/67 100 02/12/18 16:00 97.8 F 79 25 H 100 02/12/18 15:12 90 19 154/84 H 99 Intake and Output (Last 8hrs): Intake & Output 02/12/18 02/12/18 02/12/18 06:59 14:59 22:59 Intake Total 1300 1500 700 Output Total 1350 1100 660 Balance -50 400 40 Weight 212 lb 14.4 oz Intake: Intake, IV Amount 100 300 100 Left Medial Port Internal 100 300 100 Jugular Tube Feeding 400 400 200 Other 800 800 400 Output: Urine 1350 1100 660 2-way Urethral 1350 1100 660 Other: # Bowel Movements 1 - Medications Active Medications: Active Medications Generic Name Dose Route Start Last Admin Trade Name Freq PRN Reason Stop Dose Admin Acetaminophen 650 mg 01/19/18 00:50 02/05/18 20:48 Tylenol 650mg/20.3ml Solution Ud NG 650 mg Q6 PRN Administration GIVE FOR TEMP. 100*F OR ABOVE Acetylcysteine 4 ml 02/12/18 20:00 Acetylcysteine 20% INH RQ12 SHINE Albuterol/Ipratropium 3 ml 01/26/18 20:00 02/12/18 13:03 Duoneb 3 Mg/0.5 Mg (3 Ml) Ud INH 3 ml RQ6 SHINE Administration Apixaban 10 mg 02/09/18 18:00 02/12/18 18:15 Eliquis PO 02/16/18 18:01 10 mg BID SHINE Administration Aspirin 81 mg 01/17/18 10:00 02/12/18 09:52 Aspirin Chewable PO 81 mg DAILY SHINE Administration Carvedilol 12.5 mg 01/22/18 09:07 02/12/18 18:24 Coreg PO Not Given BID SHINE Hydralazine HCl 100 mg 02/03/18 00:29 02/12/18 14:26 Apresoline PO 100 mg Q8 SHINE Administration Levetiracetam 500 mg/ Dextrose 55 mls @ 420 mls/hr 02/08/18 22:00 02/12/18 09 :56 IVPB 420 mls/hr Q12H SHINE Administration Vancomycin HCl 1 gm/ Dextrose 250 mls @ 166.7 mls/hr 02/08/18 19:30 02/10/18 18:47 IVPB 166.7 mls/hr Q48H SHINE Administration Protocol Cefepime HCl 2 gm in 100 mls @ 200 mls/hr 02/08/18 19:00 02/12/18 18:17 Maxipime Iv 2 Gm Premix IVPB 02/13/18 19:01 200 mls/hr Q12H SHINE Administration Protocol Acyclovir 750 mg/ Dextrose 250 mls @ 100 mls/hr 02/08/18 20:00 02/12/18 08:00 IV 100 mls/hr Q12H SHINE Administration Protocol Insulin Aspart 0 unit 02/09/18 18:56 02/12/18 18:16 Novolog SC 6 unit Q6 SHINE Administration Protocol Insulin Glargine 20 unit 02/09/18 08:00 02/12/18 09:00 Lantus SC 20 u Q12H SHINE Administration Tamsulosin HCl 0.4 mg 01/30/18 20:00 02/12/18 09:51 Flomax PO 0.4 mg DAILY SHINE Administration - Patient Studies Lab Studies: Microbiology Studies 02/08/18 20:58 Blood Culture - Preliminary Blood NO GROWTH AFTER 3 DAYS 02/08/18 20:58 Blood Culture - Preliminary Blood NO GROWTH AFTER 3 DAYS Lab Studies 02/12/18 02/12/18 02/12/18 Range/Units 18:03 11:28 10:45 WBC (4.8-10.8) K/uL RBC (4.40-5.90) Mil/uL Hgb (12.0-18.0) g/dL Hct (35.0-51.0) % MCV (80.0-94.0) fL MCH (27.0-31.0) pg MCHC (33.0-37.0) g/dL RDW (11.5-14.5) % Plt Count (130-400) K/uL MPV (7.2-11.7) fL Neut % (Auto) (50.0-75.0) % Lymph % (Auto) (20.0-40.0) % Garfield % (Auto) (0.0-10.0) % Eos % (Auto) (0.0-4.0) % Baso % (Auto) (0.0-2.0) % Neut # (Auto) (1.8-7.0) K/uL Lymph # (Auto) (1.0-4.3) K/uL Garfield # (Auto) (0.0-0.8) K/uL Eos # (Auto) (0.0-0.7) K/uL Baso # (Auto) (0.0-0.2) K/uL Hep-Aria Thrombocytopen (Negative) Puncture Site Lb pCO2 39 (35-45) mm/Hg pO2 78 L (80-100) mm/Hg HCO3 27.8 (21-28) mmol/L ABG pH 7.46 H (7.35-7.45) ABG Total CO2 28.9 H (22-28) mmol/L ABG O2 Saturation 97.6 (95-98) % ABG Base Excess 3.7 H (-2.0-3.0) mmol/L ABG Hemoglobin 13.1 (11.7-17.4) g/dL ABG Carboxyhemoglobin 1.9 H (0.5-1.5) % POC ABG HHb (Measured) 2.3 (0.0-5.0) % ABG Methemoglobin 0.9 (0.0-3.0) % Jamey Test Na A-a O2 Difference 87.0 mm/Hg Respiratory Index 1.1 Hgb O2 Saturation 94.9 L (95.0-98.0) % Mechanical Rate 16 FiO2 30.0 % Tidal Volume 500 PEEP 5 Sodium (132-148) mmol/L Potassium (3.6-5.2) mmol/L Chloride (98-107) mmol/L Carbon Dioxide (22-30) mmol/L Anion Gap (10-20) BUN (9-20) mg/dL Creatinine (0.8-1.5) mg/dL Est GFR ( Amer) Est GFR (Non-Af Amer) POC Glucose (mg/dL) 284 H 346 H (65-110) mg/dL Random Glucose (75-110) mg/dL Calcium (8.6-10.4) mg/dl Phosphorus (2.5-4.5) mg/dL Magnesium (1.6-2.3) mg/dL Total Bilirubin (0.2-1.3) mg/dL AST (17-59) U/L ALT (21-72) U/L Alkaline Phosphatase (38-126) U/L Total Protein (6.3-8.3) g/dL Albumin (3.5-5.0) g/dL Globulin (2.2-3.9) gm/dL Albumin/Globulin Ratio (1.0-2.1) UF Heparin Interp (Negative) Vancomycin Trough (5.0-10.0) ug/mL Levetiracetam mcg/mL POLO UFH Low Dose 0.1 % Release POLO UFH Low Dose 0.5 % Release POLO UFH High Dose 100 % Release 02/12/18 02/12/18 02/12/18 Range/Units 05:58 05:58 05:55 WBC 5.6 (4.8-10.8) K/uL RBC 3.43 L (4.40-5.90) Mil/uL Hgb 11.0 L (12.0-18.0) g/dL Hct 31.9 L (35.0-51.0) % MCV 92.8 (80.0-94.0) fL MCH 31.9 H (27.0-31.0) pg MCHC 34.4 (33.0-37.0) g/dL RDW 12.7 (11.5-14.5) % Plt Count 77 L (130-400) K/uL MPV 12.3 H (7.2-11.7) fL Neut % (Auto) 67.5 (50.0-75.0) % Lymph % (Auto) 21.2 (20.0-40.0) % Garfield % (Auto) 6.4 (0.0-10.0) % Eos % (Auto) 4.6 H (0.0-4.0) % Baso % (Auto) 0.3 (0.0-2.0) % Neut # (Auto) 3.7 (1.8-7.0) K/uL Lymph # (Auto) 1.2 (1.0-4.3) K/uL Garfield # (Auto) 0.4 (0.0-0.8) K/uL Eos # (Auto) 0.3 (0.0-0.7) K/uL Baso # (Auto) 0.0 (0.0-0.2) K/uL Hep-Aria Thrombocytopen (Negative) Puncture Site pCO2 (35-45) mm/Hg pO2 (80-100) mm/Hg HCO3 (21-28) mmol/L ABG pH (7.35-7.45) ABG Total CO2 (22-28) mmol/L ABG O2 Saturation (95-98) % ABG Base Excess (-2.0-3.0) mmol/L ABG Hemoglobin (11.7-17.4) g/dL ABG Carboxyhemoglobin (0.5-1.5) % POC ABG HHb (Measured) (0.0-5.0) % ABG Methemoglobin (0.0-3.0) % Jamey Test A-a O2 Difference mm/Hg Respiratory Index Hgb O2 Saturation (95.0-98.0) % Mechanical Rate FiO2 % Tidal Volume PEEP Sodium 141 (132-148) mmol/L Potassium 3.3 L (3.6-5.2) mmol/L Chloride 103 (98-107) mmol/L Carbon Dioxide 29 (22-30) mmol/L Anion Gap 12 (10-20) BUN 24 H (9-20) mg/dL Creatinine 0.9 (0.8-1.5) mg/dL Est GFR ( Amer) > 60 Est GFR (Non-Af Amer) > 60 POC Glucose (mg/dL) (65-110) mg/dL Random Glucose 198 H (75-110) mg/dL Calcium 8.0 L (8.6-10.4) mg/dl Phosphorus 2.6 (2.5-4.5) mg/dL Magnesium 2.2 (1.6-2.3) mg/dL Total Bilirubin 0.7 (0.2-1.3) mg/dL AST 26 (17-59) U/L ALT 27 (21-72) U/L Alkaline Phosphatase 103 (38-126) U/L Total Protein 5.4 L (6.3-8.3) g/dL Albumin 2.6 L (3.5-5.0) g/dL Globulin 2.9 (2.2-3.9) gm/dL Albumin/Globulin Ratio 0.9 L (1.0-2.1) UF Heparin Interp (Negative) Vancomycin Trough 5.2 (5.0-10.0) ug/mL Levetiracetam mcg/mL POLO UFH Low Dose 0.1 % Release POLO UFH Low Dose 0.5 % Release POLO UFH High Dose 100 % Release 02/12/18 02/11/18 02/09/18 Range/Units 05:23 23:58 12:02 WBC (4.8-10.8) K/uL RBC (4.40-5.90) Mil/uL Hgb (12.0-18.0) g/dL Hct (35.0-51.0) % MCV (80.0-94.0) fL MCH (27.0-31.0) pg MCHC (33.0-37.0) g/dL RDW (11.5-14.5) % Plt Count (130-400) K/uL MPV (7.2-11.7) fL Neut % (Auto) (50.0-75.0) % Lymph % (Auto) (20.0-40.0) % Garfield % (Auto) (0.0-10.0) % Eos % (Auto) (0.0-4.0) % Baso % (Auto) (0.0-2.0) % Neut # (Auto) (1.8-7.0) K/uL Lymph # (Auto) (1.0-4.3) K/uL Garfield # (Auto) (0.0-0.8) K/uL Eos # (Auto) (0.0-0.7) K/uL Baso # (Auto) (0.0-0.2) K/uL Hep-Aria Thrombocytopen Positive H (Negative) Puncture Site pCO2 (35-45) mm/Hg pO2 (80-100) mm/Hg HCO3 (21-28) mmol/L ABG pH (7.35-7.45) ABG Total CO2 (22-28) mmol/L ABG O2 Saturation (95-98) % ABG Base Excess (-2.0-3.0) mmol/L ABG Hemoglobin (11.7-17.4) g/dL ABG Carboxyhemoglobin (0.5-1.5) % POC ABG HHb (Measured) (0.0-5.0) % ABG Methemoglobin (0.0-3.0) % Jamey Test A-a O2 Difference mm/Hg Respiratory Index Hgb O2 Saturation (95.0-98.0) % Mechanical Rate FiO2 % Tidal Volume PEEP Sodium (132-148) mmol/L Potassium (3.6-5.2) mmol/L Chloride (98-107) mmol/L Carbon Dioxide (22-30) mmol/L Anion Gap (10-20) BUN (9-20) mg/dL Creatinine (0.8-1.5) mg/dL Est GFR ( Amer) Est GFR (Non-Af Amer) POC Glucose (mg/dL) 170 H 299 H (65-110) mg/dL Random Glucose (75-110) mg/dL Calcium (8.6-10.4) mg/dl Phosphorus (2.5-4.5) mg/dL Magnesium (1.6-2.3) mg/dL Total Bilirubin (0.2-1.3) mg/dL AST (17-59) U/L ALT (21-72) U/L Alkaline Phosphatase (38-126) U/L Total Protein (6.3-8.3) g/dL Albumin (3.5-5.0) g/dL Globulin (2.2-3.9) gm/dL Albumin/Globulin Ratio (1.0-2.1) UF Heparin Interp (Negative) Vancomycin Trough (5.0-10.0) ug/mL Levetiracetam mcg/mL [facility] UFH Low Dose 0.1 0 % Release POLO UFH Low Dose 0.5 0 % Release [facility]O UFH High Dose 100 0 % Release 02/09/18 02/09/18 Range/Units 12:02 12:02 WBC (4.8-10.8) K/uL RBC (4.40-5.90) Mil/uL Hgb (12.0-18.0) g/dL Hct (35.0-51.0) % MCV (80.0-94.0) fL MCH (27.0-31.0) pg MCHC (33.0-37.0) g/dL RDW (11.5-14.5) % Plt Count (130-400) K/uL MPV (7.2-11.7) fL Neut % (Auto) (50.0-75.0) % Lymph % (Auto) (20.0-40.0) % Garfield % (Auto) (0.0-10.0) % Eos % (Auto) (0.0-4.0) % Baso % (Auto) (0.0-2.0) % Neut # (Auto) (1.8-7.0) K/uL Lymph # (Auto) (1.0-4.3) K/uL Garfield # (Auto) (0.0-0.8) K/uL Eos # (Auto) (0.0-0.7) K/uL Baso # (Auto) (0.0-0.2) K/uL Hep-Aria Thrombocytopen (Negative) Puncture Site pCO2 (35-45) mm/Hg pO2 (80-100) mm/Hg HCO3 (21-28) mmol/L ABG pH (7.35-7.45) ABG Total CO2 (22-28) mmol/L ABG O2 Saturation (95-98) % ABG Base Excess (-2.0-3.0) mmol/L ABG Hemoglobin (11.7-17.4) g/dL ABG Carboxyhemoglobin (0.5-1.5) % POC ABG HHb (Measured) (0.0-5.0) % ABG Methemoglobin (0.0-3.0) % Jamey Test A-a O2 Difference mm/Hg Respiratory Index Hgb O2 Saturation (95.0-98.0) % Mechanical Rate FiO2 % Tidal Volume PEEP Sodium (132-148) mmol/L Potassium (3.6-5.2) mmol/L Chloride (98-107) mmol/L Carbon Dioxide (22-30) mmol/L Anion Gap (10-20) BUN (9-20) mg/dL Creatinine (0.8-1.5) mg/dL Est GFR ( Amer) Est GFR (Non-Af Amer) POC Glucose (mg/dL) (65-110) mg/dL Random Glucose (75-110) mg/dL Calcium (8.6-10.4) mg/dl Phosphorus (2.5-4.5) mg/dL Magnesium (1.6-2.3) mg/dL Total Bilirubin (0.2-1.3) mg/dL AST (17-59) U/L ALT (21-72) U/L Alkaline Phosphatase (38-126) U/L Total Protein (6.3-8.3) g/dL Albumin (3.5-5.0) g/dL Globulin (2.2-3.9) gm/dL Albumin/Globulin Ratio (1.0-2.1) UF Heparin Interp Negative (Negative) Vancomycin Trough (5.0-10.0) ug/mL Levetiracetam 26.1 mcg/mL [facility] UFH Low Dose 0.1 0 % Release POLO UFH Low Dose 0.5 0 % Release POLO UFH High Dose 100 0 % Release Laboratory Results - last 24 hr 02/09/18 02/09/18 02/09/18 12:02 12:02 12:02 WBC RBC Hgb Hct MCV MCH MCHC RDW Plt Count MPV Neut % (Auto) Lymph % (Auto) Garfield % (Auto) Eos % (Auto) Baso % (Auto) Neut # (Auto) Lymph # (Auto) Garfield # (Auto) Eos # (Auto) Baso # (Auto) Hep-Aria Thrombocytopen Positive H Puncture Site pCO2 pO2 HCO3 ABG pH ABG Total CO2 ABG O2 Saturation ABG Base Excess ABG Hemoglobin ABG Carboxyhemoglobin POC ABG HHb (Measured) ABG Methemoglobin Jamey Test A-a O2 Difference Respiratory Index Hgb O2 Saturation Mechanical Rate FiO2 Tidal Volume PEEP Sodium Potassium Chloride Carbon Dioxide Anion Gap BUN Creatinine Est GFR ( Amer) Est GFR (Non-Af Amer) POC Glucose (mg/dL) Random Glucose Calcium Phosphorus Magnesium Total Bilirubin AST ALT Alkaline Phosphatase Total Protein Albumin Globulin Albumin/Globulin Ratio UF Heparin Interp Negative Vancomycin Trough Levetiracetam 26.1 POLO UFH Low Dose 0.1 0 0 POLO UFH Low Dose 0.5 0 0 [facility]O UFH High Dose 100 0 0 02/11/18 02/12/18 02/12/18 23:58 05:23 05:55 WBC 5.6 RBC 3.43 L Hgb 11.0 L Hct 31.9 L MCV 92.8 MCH 31.9 H MCHC 34.4 RDW 12.7 Plt Count 77 L MPV 12.3 H Neut % (Auto) 67.5 Lymph % (Auto) 21.2 Garfield % (Auto) 6.4 Eos % (Auto) 4.6 H Baso % (Auto) 0.3 Neut # (Auto) 3.7 Lymph # (Auto) 1.2 Garfield # (Auto) 0.4 Eos # (Auto) 0.3 Baso # (Auto) 0.0 Hep-Aria Thrombocytopen Puncture Site pCO2 pO2 HCO3 ABG pH ABG Total CO2 ABG O2 Saturation ABG Base Excess ABG Hemoglobin ABG Carboxyhemoglobin POC ABG HHb (Measured) ABG Methemoglobin Jamey Test A-a O2 Difference Respiratory Index Hgb O2 Saturation Mechanical Rate FiO2 Tidal Volume PEEP Sodium Potassium Chloride Carbon Dioxide Anion Gap BUN Creatinine Est GFR ( Amer) Est GFR (Non-Af Amer) POC Glucose (mg/dL) 299 H 170 H Random Glucose Calcium Phosphorus Magnesium Total Bilirubin AST ALT Alkaline Phosphatase Total Protein Albumin Globulin Albumin/Globulin Ratio UF Heparin Interp Vancomycin Trough Levetiracetam POLO UFH Low Dose 0.1 POLO UFH Low Dose 0.5 POLO UFH High Dose 100 02/12/18 02/12/18 02/12/18 05:58 05:58 10:45 WBC RBC Hgb Hct MCV MCH MCHC RDW Plt Count MPV Neut % (Auto) Lymph % (Auto) Garfield % (Auto) Eos % (Auto) Baso % (Auto) Neut # (Auto) Lymph # (Auto) Garfield # (Auto) Eos # (Auto) Baso # (Auto) Hep-Aria Thrombocytopen Puncture Site Lb pCO2 39 pO2 78 L HCO3 27.8 ABG pH 7.46 H ABG Total CO2 28.9 H ABG O2 Saturation 97.6 ABG Base Excess 3.7 H ABG Hemoglobin 13.1 ABG Carboxyhemoglobin 1.9 H POC ABG HHb (Measured) 2.3 ABG Methemoglobin 0.9 Jamey Test Na A-a O2 Difference 87.0 Respiratory Index 1.1 Hgb O2 Saturation 94.9 L Mechanical Rate 16 FiO2 30.0 Tidal Volume 500 PEEP 5 Sodium 141 Potassium 3.3 L Chloride 103 Carbon Dioxide 29 Anion Gap 12 BUN 24 H Creatinine 0.9 Est GFR ( Amer) > 60 Est GFR (Non-Af Amer) > 60 POC Glucose (mg/dL) Random Glucose 198 H Calcium 8.0 L Phosphorus 2.6 Magnesium 2.2 Total Bilirubin 0.7 AST 26 ALT 27 Alkaline Phosphatase 103 Total Protein 5.4 L Albumin 2.6 L Globulin 2.9 Albumin/Globulin Ratio 0.9 L UF Heparin Interp Vancomycin Trough 5.2 Levetiracetam [facility] UFH Low Dose 0.1 POLO UFH Low Dose 0.5 POLO UFH High Dose 100 02/12/18 02/12/18 11:28 18:03 WBC RBC Hgb Hct MCV MCH MCHC RDW Plt Count MPV Neut % (Auto) Lymph % (Auto) Garfield % (Auto) Eos % (Auto) Baso % (Auto) Neut # (Auto) Lymph # (Auto) Garfield # (Auto) Eos # (Auto) Baso # (Auto) Hep-Aria Thrombocytopen Puncture Site pCO2 pO2 HCO3 ABG pH ABG Total CO2 ABG O2 Saturation ABG Base Excess ABG Hemoglobin ABG Carboxyhemoglobin POC ABG HHb (Measured) ABG Methemoglobin Jamey Test A-a O2 Difference Respiratory Index Hgb O2 Saturation Mechanical Rate FiO2 Tidal Volume PEEP Sodium Potassium Chloride Carbon Dioxide Anion Gap BUN Creatinine Est GFR ( Amer) Est GFR (Non-Af Amer) POC Glucose (mg/dL) 346 H 284 H Random Glucose Calcium Phosphorus Magnesium Total Bilirubin AST ALT Alkaline Phosphatase Total Protein Albumin Globulin Albumin/Globulin Ratio UF Heparin Interp Vancomycin Trough Levetiracetam POLO UFH Low Dose 0.1 POLO UFH Low Dose 0.5 POLO UFH High Dose 100 Attending/Attestation - Attestation I have personally seen and examined this patient.: Yes I have fully participated in the care of the patient.: Yes I have reviewed all pertinent clinical information: Yes Notes (Text): 02/12/18 19:07 pt is on vent severe distress today mucous plug noted improved may need trach
--- NOTE | 2018-02-12 12:47 | CP.PCM.PN ---
Subjective - Date & Time of Evaluation Date of Evaluation: 02/12/18 Time of Evaluation: 08:00 - Subjective Subjective: overall improved for possible extubation no new cultures Objective - Vital Signs/Intake and Output Vital Signs (last 24 hours): Temp Pulse Resp BP Pulse Ox 97.3 F L 69 22 117/55 L 98 02/12/18 08:00 02/12/18 12:00 02/12/18 12:00 02/12/18 11:58 02/12/18 12:00 Intake and Output: 02/12/18 02/12/18 06:59 18:59 Intake Total 2200 1000 Output Total 1850 900 Balance 350 100 - Medications Medications: Current Medications Acetaminophen (Tylenol 650mg/20.3ml Solution Ud) 650 mg NG Q6 PRN PRN Reason: GIVE FOR TEMP. 100*F OR ABOVE Last Admin: 02/05/18 20:48 Dose: 650 mg Albuterol/Ipratropium (Duoneb 3 Mg/0.5 Mg (3 Ml) Ud) 3 ml INH RQ6 [facility] Last Admin: 02/12/18 07:40 Dose: 3 ml Apixaban (Eliquis) 10 mg PO BID [facility] Stop: 02/16/18 18:01 Last Admin: 02/12/18 09:51 Dose: 10 mg Aspirin (Aspirin Chewable) 81 mg PO DAILY [facility] Last Admin: 02/12/18 09:52 Dose: 81 mg Carvedilol (Coreg) 12.5 mg PO BID [facility] Last Admin: 02/12/18 09:51 Dose: 12.5 mg Hydralazine HCl (Apresoline) 100 mg PO Q8 [facility] Last Admin: 02/12/18 06:28 Dose: 100 mg Levetiracetam 500 mg/ Dextrose 55 mls @ 420 mls/hr IVPB Q12H [facility] Last Admin: 02/12/18 09:56 Dose: 420 mls/hr Vancomycin HCl 1 gm/ Dextrose 250 mls @ 166.7 mls/hr IVPB Q48H [facility] PRN Reason: Protocol Last Admin: 02/10/18 18:47 Dose: 166.7 mls/hr Cefepime HCl (Maxipime Iv 2 Gm Premix) 2 gm in 100 mls @ 200 mls/hr IVPB Q12H [facility] PRN Reason: Protocol Stop: 02/13/18 19:01 Last Admin: 02/12/18 06:28 Dose: 200 mls/hr Acyclovir 750 mg/ Dextrose 250 mls @ 100 mls/hr IV Q12H [facility] PRN Reason: Protocol Last Admin: 02/12/18 08:00 Dose: 100 mls/hr Insulin Aspart (Novolog) 0 unit SC Q6 [facility] PRN Reason: Protocol Last Admin: 02/12/18 12:38 Dose: 8 unit Insulin Glargine (Lantus) 20 unit SC Q12H [facility] Last Admin: 02/12/18 09:00 Dose: 20 u Tamsulosin HCl (Flomax) 0.4 mg PO DAILY [facility] Last Admin: 02/12/18 09:51 Dose: 0.4 mg - Labs Labs: 02/12/18 05:55 02/12/18 05:58 PT 12.4 SECONDS (9.7-12.2) H 02/02/18 06:19 INR 1.1 02/02/18 06:19 APTT 50 SECONDS (21-34) H D 02/09/18 12:02 - Constitutional Appears: Non-toxic, Confused, Chronically Ill - Head Exam Head Exam: NORMOCEPHALIC - Eye Exam Eye Exam: PERRL - ENT Exam ENT Exam: Mucous Membranes Dry - Neck Exam Neck Exam: absent: Lymphadenopathy - Respiratory Exam Respiratory Exam: Decreased Breath Sounds - Cardiovascular Exam Cardiovascular Exam: REGULAR RHYTHM - GI/Abdominal Exam GI & Abdominal Exam: Distended, Soft - Exam Exam: NORMAL INSPECTION - Extremities Exam Extremities Exam: absent: Pedal Edema - Back Exam Back Exam: absent: CVA tenderness (L), CVA tenderness (R), paraspinal tenderness Assessment and Plan (1) Sepsis Status: Acute (2) Sepsis Status: Acute (3) COPD (chronic obstructive pulmonary disease) Status: Acute (4) Congestive heart failure Status: Acute (5) Diabetes Status: Acute (6) Encephalopathy Status: Acute
--- NOTE | 2018-02-12 12:50 | CP.PCM.PN ---
Subjective - Date & Time of Evaluation Date of Evaluation: 02/12/18 Time of Evaluation: 12:49 - Subjective Subjective: pt is seen and examined, follow up consult is dictated #[id number] Objective - Vital Signs/Intake and Output Vital Signs (last 24 hours): Temp Pulse Resp BP Pulse Ox 97.3 F L 69 22 117/55 L 98 02/12/18 08:00 02/12/18 12:00 02/12/18 12:00 02/12/18 11:58 02/12/18 12:00 Intake and Output: 02/12/18 02/12/18 06:59 18:59 Intake Total 2200 1000 Output Total 1850 900 Balance 350 100 - Medications Medications: Current Medications Acetaminophen (Tylenol 650mg/20.3ml Solution Ud) 650 mg NG Q6 PRN PRN Reason: GIVE FOR TEMP. 100*F OR ABOVE Last Admin: 02/05/18 20:48 Dose: 650 mg Albuterol/Ipratropium (Duoneb 3 Mg/0.5 Mg (3 Ml) Ud) 3 ml INH RQ6 [facility] Last Admin: 02/12/18 07:40 Dose: 3 ml Apixaban (Eliquis) 10 mg PO BID [facility] Stop: 02/16/18 18:01 Last Admin: 02/12/18 09:51 Dose: 10 mg Aspirin (Aspirin Chewable) 81 mg PO DAILY [facility] Last Admin: 02/12/18 09:52 Dose: 81 mg Carvedilol (Coreg) 12.5 mg PO BID [facility] Last Admin: 02/12/18 09:51 Dose: 12.5 mg Hydralazine HCl (Apresoline) 100 mg PO Q8 [facility] Last Admin: 02/12/18 06:28 Dose: 100 mg Levetiracetam 500 mg/ Dextrose 55 mls @ 420 mls/hr IVPB Q12H [facility] Last Admin: 02/12/18 09:56 Dose: 420 mls/hr Vancomycin HCl 1 gm/ Dextrose 250 mls @ 166.7 mls/hr IVPB Q48H [facility] PRN Reason: Protocol Last Admin: 02/10/18 18:47 Dose: 166.7 mls/hr Cefepime HCl (Maxipime Iv 2 Gm Premix) 2 gm in 100 mls @ 200 mls/hr IVPB Q12H [facility] PRN Reason: Protocol Stop: 02/13/18 19:01 Last Admin: 02/12/18 06:28 Dose: 200 mls/hr Acyclovir 750 mg/ Dextrose 250 mls @ 100 mls/hr IV Q12H [facility] PRN Reason: Protocol Last Admin: 02/12/18 08:00 Dose: 100 mls/hr Insulin Aspart (Novolog) 0 unit SC Q6 [facility] PRN Reason: Protocol Last Admin: 02/12/18 12:38 Dose: 8 unit Insulin Glargine (Lantus) 20 unit SC Q12H [facility] Last Admin: 02/12/18 09:00 Dose: 20 u Tamsulosin HCl (Flomax) 0.4 mg PO DAILY [facility] Last Admin: 02/12/18 09:51 Dose: 0.4 mg - Labs Labs: 02/12/18 05:55 02/12/18 05:58 PT 12.4 SECONDS (9.7-12.2) H 02/02/18 06:19 INR 1.1 02/02/18 06:19 APTT 50 SECONDS (21-34) H D 02/09/18 12:02
--- NOTE | 2018-02-12 13:12 | CP.PCM.PN ---
Subjective - Date & Time of Evaluation Date of Evaluation: 02/12/18 Time of Evaluation: 18:00 - Subjective Subjective: Pt is seen and examined in ICU, he is on ventilator, opens his eyes, his oxygen requirement went up, he remains afebrile Objective - Vital Signs/Intake and Output Vital Signs (last 24 hours): Temp Pulse Resp BP Pulse Ox 97.3 F L 69 22 117/55 L 98 02/12/18 08:00 02/12/18 12:00 02/12/18 12:00 02/12/18 11:58 02/12/18 12:00 Intake and Output: 02/12/18 02/12/18 06:59 18:59 Intake Total 2200 1000 Output Total 1850 900 Balance 350 100 - Medications Medications: Current Medications Acetaminophen (Tylenol 650mg/20.3ml Solution Ud) 650 mg NG Q6 PRN PRN Reason: GIVE FOR TEMP. 100*F OR ABOVE Last Admin: 02/05/18 20:48 Dose: 650 mg Albuterol/Ipratropium (Duoneb 3 Mg/0.5 Mg (3 Ml) Ud) 3 ml INH RQ6 [facility] Last Admin: 02/12/18 13:03 Dose: 3 ml Apixaban (Eliquis) 10 mg PO BID [facility] Stop: 02/16/18 18:01 Last Admin: 02/12/18 09:51 Dose: 10 mg Aspirin (Aspirin Chewable) 81 mg PO DAILY [facility] Last Admin: 02/12/18 09:52 Dose: 81 mg Carvedilol (Coreg) 12.5 mg PO BID [facility] Last Admin: 02/12/18 09:51 Dose: 12.5 mg Hydralazine HCl (Apresoline) 100 mg PO Q8 [facility] Last Admin: 02/12/18 06:28 Dose: 100 mg Levetiracetam 500 mg/ Dextrose 55 mls @ 420 mls/hr IVPB Q12H [facility] Last Admin: 02/12/18 09:56 Dose: 420 mls/hr Vancomycin HCl 1 gm/ Dextrose 250 mls @ 166.7 mls/hr IVPB Q48H [facility] PRN Reason: Protocol Last Admin: 02/10/18 18:47 Dose: 166.7 mls/hr Cefepime HCl (Maxipime Iv 2 Gm Premix) 2 gm in 100 mls @ 200 mls/hr IVPB Q12H [facility] PRN Reason: Protocol Stop: 02/13/18 19:01 Last Admin: 02/12/18 06:28 Dose: 200 mls/hr Acyclovir 750 mg/ Dextrose 250 mls @ 100 mls/hr IV Q12H [facility] PRN Reason: Protocol Last Admin: 02/12/18 08:00 Dose: 100 mls/hr Insulin Aspart (Novolog) 0 unit SC Q6 [facility] PRN Reason: Protocol Last Admin: 02/12/18 12:38 Dose: 8 unit Insulin Glargine (Lantus) 20 unit SC Q12H [facility] Last Admin: 02/12/18 09:00 Dose: 20 u Tamsulosin HCl (Flomax) 0.4 mg PO DAILY [facility] Last Admin: 02/12/18 09:51 Dose: 0.4 mg - Labs Labs: 02/12/18 05:55 02/12/18 05:58 PT 12.4 SECONDS (9.7-12.2) H 02/02/18 06:19 INR 1.1 02/02/18 06:19 APTT 50 SECONDS (21-34) H D 02/09/18 12:02 - Constitutional Appears: No Acute Distress, Chronically Ill - Head Exam Head Exam: ATRAUMATIC, NORMAL INSPECTION, NORMOCEPHALIC - Eye Exam Eye Exam: EOMI, Normal appearance, PERRL Pupil Exam: NORMAL ACCOMODATION, PERRL - Respiratory Exam Respiratory Exam: Decreased Breath Sounds, Rales - Cardiovascular Exam Cardiovascular Exam: REGULAR RHYTHM, +S1, +S2. absent: Murmur - GI/Abdominal Exam GI & Abdominal Exam: Soft, Normal Bowel Sounds. absent: Tenderness Assessment and Plan (1) Status epilepticus Status: Acute (2) COPD (chronic obstructive pulmonary disease) Status: Acute (3) Congestive heart failure Status: Acute (4) Diabetes Status: Acute (5) Hypernatremia Status: Acute (6) Acute respiratory failure Status: Acute
--- NOTE | 2018-02-12 15:40 | CP.PCM.PN ---
Subjective - Date & Time of Evaluation Date of Evaluation: 02/12/18 Time of Evaluation: 07:00 - Subjective Subjective: Surgery: Dr. Giordano Pt seen and examined. No acute events overnight. Pt continues to be intubated but is off sedation and following commands. No F/C overnight. Objective - Vital Signs/Intake and Output Vital Signs (last 24 hours): Temp Pulse Resp BP Pulse Ox 97.6 F 78 12 135/61 100 02/12/18 12:00 02/12/18 15:00 02/12/18 15:00 02/12/18 14:11 02/12/18 15:00 Intake and Output: 02/12/18 02/12/18 06:59 18:59 Intake Total 2200 1150 Output Total 1850 1160 Balance 350 -10 - Medications Medications: Current Medications Acetaminophen (Tylenol 650mg/20.3ml Solution Ud) 650 mg NG Q6 PRN PRN Reason: GIVE FOR TEMP. 100*F OR ABOVE Last Admin: 02/05/18 20:48 Dose: 650 mg Albuterol/Ipratropium (Duoneb 3 Mg/0.5 Mg (3 Ml) Ud) 3 ml INH RQ6 [facility] Last Admin: 02/12/18 13:03 Dose: 3 ml Apixaban (Eliquis) 10 mg PO BID [facility] Stop: 02/16/18 18:01 Last Admin: 02/12/18 09:51 Dose: 10 mg Aspirin (Aspirin Chewable) 81 mg PO DAILY [facility] Last Admin: 02/12/18 09:52 Dose: 81 mg Carvedilol (Coreg) 12.5 mg PO BID [facility] Last Admin: 02/12/18 09:51 Dose: 12.5 mg Hydralazine HCl (Apresoline) 100 mg PO Q8 [facility] Last Admin: 02/12/18 14:26 Dose: 100 mg Levetiracetam 500 mg/ Dextrose 55 mls @ 420 mls/hr IVPB Q12H [facility] Last Admin: 02/12/18 09:56 Dose: 420 mls/hr Vancomycin HCl 1 gm/ Dextrose 250 mls @ 166.7 mls/hr IVPB Q48H [facility] PRN Reason: Protocol Last Admin: 02/10/18 18:47 Dose: 166.7 mls/hr Cefepime HCl (Maxipime Iv 2 Gm Premix) 2 gm in 100 mls @ 200 mls/hr IVPB Q12H [facility] PRN Reason: Protocol Stop: 02/13/18 19:01 Last Admin: 02/12/18 06:28 Dose: 200 mls/hr Acyclovir 750 mg/ Dextrose 250 mls @ 100 mls/hr IV Q12H [facility] PRN Reason: Protocol Last Admin: 02/12/18 08:00 Dose: 100 mls/hr Insulin Aspart (Novolog) 0 unit SC Q6 [facility] PRN Reason: Protocol Last Admin: 02/12/18 12:38 Dose: 8 unit Insulin Glargine (Lantus) 20 unit SC Q12H [facility] Last Admin: 02/12/18 09:00 Dose: 20 u Tamsulosin HCl (Flomax) 0.4 mg PO DAILY [facility] Last Admin: 02/12/18 09:51 Dose: 0.4 mg - Labs Labs: 02/12/18 05:55 02/12/18 05:58 PT 12.4 SECONDS (9.7-12.2) H 02/02/18 06:19 INR 1.1 02/02/18 06:19 APTT 50 SECONDS (21-34) H D 02/09/18 12:02 - Constitutional Appears: Well, No Acute Distress - Eye Exam Eye Exam: Normal appearance - ENT Exam ENT Exam: Mucous Membranes Moist - Respiratory Exam Respiratory Exam: NORMAL BREATHING PATTERN - Cardiovascular Exam Cardiovascular Exam: RRR - GI/Abdominal Exam GI & Abdominal Exam: Soft. absent: Tenderness - Neurological Exam Neurological Exam: Alert, Awake - Skin Skin Exam: Dry, Warm Assessment and Plan - Assessment and Plan (Free Text) Assessment: 67M with difficulty swallowing s/p CVA vs seizure; surgery consulted for gastrostomy tube Plan: - pt on Eliquis for PE with platelets 77 this AM - needs to be medically optimized for OR - will plan for gastrostomy once stable - d/w Dr. Pasquale Orlando, PGY-3
--- NOTE | 2018-02-12 17:48 | RAD ---
HISTORY: Shortness of breath. COMPARISON: Multiple serial examinations preceding the most recent study: February 12, 2018. Time of the most recent examination: 09:05 FINDINGS: LUNGS: No active pulmonary disease. PLEURA: No significant pleural effusion identified, no pneumothorax apparent. CARDIOVASCULAR: No radiographic findings to suggest acute or significant cardiovascular disease. Venous access catheter in stable, satisfactory position. OSSEOUS STRUCTURES: No significant abnormalities. VISUALIZED UPPER ABDOMEN: Normal. OTHER FINDINGS: Stable position endotracheal tube. IMPRESSION: No significant interval change compared to the prior examination(s).
--- NOTE | 2018-02-12 18:47 | PN ---
DATE: LOCATION: ICU-7. SUBJECTIVE: This is a 67-year-old male seen and examined early in rounds today without any significant clinical changes or reported active bleeding, or intermittent periods of some shortness of breath. The patient is intubated, appears to be at some times alert and awake, trying to follow simple commands. The entire chart is reviewed including, but not limited to the most recent lab and radiology study results, current and the previous medication list, current and the previous medical events. Today's chest x-ray report is seen, indicative of no changes. Today's lab showed low hemoglobin 11.0, hematocrit 31.9, thrombocytopenia of 77, abnormal ABGs. Blood glucose level 364. Potassium 3.3,calcium 8.0, alkaline phosphatase 5.4, albumin 2.6. PHYSICAL EXAMINATION: GENERAL: A 67-year-old male, intubated. VITAL SIGNS: Afebrile, with pulse of 72, blood pressure 120/56. HEENT: Showed pale dry mucous membrane. Nonicteric sclerae. LUNGS: Few scattered crepitations, decreased air entry at bases. HEART: Positive S1 and S2. ABDOMEN: With mild distention. No mass or organomegaly. No rebound tenderness or guarding. EXTREMITIES: Lower extremities with edematous changes. NEURO: No reported new neurological deficits, sensory or motor. Peripheral pulses are present bilaterally, but weak. IMPRESSION: 1. Pneumonia with respiratory failure, intubated recently. 2. Malnutrition with hypoalbuminemia. 3. Known history of peptic ulcer disease. 4. Known history of seizure disorder, failure to thrive, and dysphagia. 5. History of hypertension, coronary artery disease, status post coronary artery bypass graft, and hyperlipidemia. 6. Electrolyte imbalance. SUGGESTIONS: 1. Agree with your plan. 2. Correct underlying electrolyte imbalance. 3. Antireflux measure. 4. Further recommendations to follow. Jaya Glass MD
[2018-02-12] MEDS: Vancomycin 1 GM in Dextrose 5% In Water 250 ML IVPB SCH (19:30)
[2018-02-12] MEDS: Acetylcysteine 20% Inhal Soln (4ml) INH SCH (20:47)
[2018-02-13] MEDS: Albuterol-Ipratrop 3 mg / 0.5 (3 ml) UD INH SCH ×4 (01:27→19:25)
[2018-02-13] MEDS: (Novolog) Insulin Aspart, Recombinant 100 u/ml 10 ml vial SC SCH ×3 (05:47→18:08)
[2018-02-13 05:49] LABS: ARTERIAL BLOOD GAS HCO3 29.2 mmol/L (21-28); ARTERIAL BLOOD GAS PCO2 42 mm/Hg (35-45); ARTERIAL BLOOD GAS PH 7.46 (7.35-7.45); ARTERIAL BLOOD GAS PO2 263 mm/Hg (80-100); ARTERIAL BLOOD GAS TCO2 31.2 mmol/L (22-28)
[2018-02-13 05:56] LABS: BASO % 0.3 % (0.0-2.0); EOS # 0.2 K/uL (0.0-0.7); LYMPH % 21.5 % (20.0-40.0); MEAN CELL VOLUME 93.4 fL (80.0-94.0); MEAN CORPUSCULAR HEMOGLOBIN 32.2 pg (27.0-31.0); MEAN CORPUSCULAR HGB CONC 34.4 g/dL (33.0-37.0); MEAN PLATELET VOLUME 11.7 fL (7.2-11.7); MONO # 0.3 K/uL (0.0-0.8); MONO % 6.9 % (0.0-10.0); NEUT # 3.2 K/uL (1.8-7.0); NEUT % 67.3 % (50.0-75.0); NRBC % 0.1 % (0.0-2.0); RBC 3.1 Mil/uL (4.40-5.90); RED CELL DISTRIBUTION WIDTH 12.6 % (11.5-14.5); WHITE BLOOD COUNT 4.7 K/uL (4.8-10.8)
[2018-02-13] MEDS: Cefepime IV 2 gm in Dextrose 2 GM/100 ML BAG IVPB SCH ×2 (05:59→18:07)
[2018-02-13 06:34] LABS: ALB/GLOB RATIO 0.9 (1.0-2.1); ALBUMIN 2.3 g/dL (3.5-5.0); ALT/SGPT 23 U/L (21-72); AST/SGOT 23 U/L (17-59); BLOOD UREA NITROGEN 21 mg/dL (9-20); CALCIUM 8.2 mg/dl (8.6-10.4); GFR AFRICAN-AMERICAN > 60; GFR NON-AFRICAN AMERICAN > 60
[2018-02-13] MEDS: Acetylcysteine 20% Inhal Soln (4ml) INH SCH ×2 (07:20→19:25)
[2018-02-13] MEDS: WATER IV SCH ×2 (08:08→19:55)
[2018-02-13] MEDS: (Lantus) Insulin Glargine, Recombinant SC SCH ×2 (08:08→19:55)
[2018-02-13] MEDS: ACYCLOVIR IV SCH ×2 (08:08→19:55)
[2018-02-13] MEDS: DEXTROSE 5% IV SCH ×2 (08:08→19:55)
--- NOTE | 2018-02-13 08:37 | RAD ---
HISTORY: intubated, sob COMPARISON: 02/12/2018 FINDINGS: Endotracheal tube terminates 1.5 cm proximal to the rianna. The left IJV line terminates in the SVC/ right subclavian vein. LUNGS: There are low lung volumes. No focal consolidation. PLEURA: Suspect small left pleural effusion, no pneumothorax apparent. CARDIOVASCULAR: Normal. OSSEOUS STRUCTURES: No significant abnormalities. VISUALIZED UPPER ABDOMEN: Normal. OTHER FINDINGS: None. IMPRESSION: Low lung volumes which may be related to poor inspiratory effort. Suspect small left pleural effusion. No other significant interval change.
[2018-02-13] MEDS: DEXTROSE 5% IVPB SCH ×2 (10:04→22:25)
[2018-02-13] MEDS: LEVETIRACETAM IVPB SCH ×2 (10:04→22:25)
[2018-02-13] MEDS: WATER IVPB SCH ×2 (10:04→22:25)
--- NOTE | 2018-02-13 11:01 | CP.CCUPN ---
<Amaya Castñaeda - Last Filed: 02/13/18 11:35> CCU Subjective - Physician Review Subjective (Free Text): 02/13/18 11:00 Patient seen and examined at bedside. Yesterday afternoon patient desat to 40s and was bradycardic, found to have mucous plug that was suctioned successfully. Doing better, on CPAP trial. Awake and alert. Follows simple commands, moving all extremities. CCU Objective - Vital Signs / Intake & Output Vital Signs (Last 4 hours): Vital Signs Temp Pulse Resp BP Pulse Ox 02/13/18 10:08 78 25 H 137/56 L 100 02/13/18 10:04 110/50 L 02/13/18 09:08 64 20 110/50 L 99 02/13/18 08:08 62 14 121/68 100 02/13/18 08:00 97.3 F L 02/13/18 07:08 65 15 133/66 100 02/13/18 07:00 53 L 21 100 Intake and Output (Last 8hrs): Intake & Output 02/12/18 02/13/18 02/13/18 22:59 06:59 14:59 Intake Total 1850 1300 570 Output Total 1250 850 500 Balance 600 450 70 Weight 96.57 kg Intake: Intake, IV Amount 650 100 250 Left Medial Port Internal 400 100 250 Jugular Left Proximal Port 250 Internal Jugular Tube Feeding 400 400 200 Other 800 800 120 Output: Urine 1250 850 500 2-way Urethral 1250 850 500 Other: # Bowel Movements 1 - Physical Exam Head: Positive for: Atraumatic, Normocephalic Pupils: Positive for: PERRL Conjunctiva: Positive for: Normal Mouth: Positive for: Moist Mucous Membranes, Other (ETT) Neck: Positive for: Normal Range of Motion Respiratory/Chest: Positive for: Clear to Auscultation, Good Air Exchange. Negative for: Respiratory Distress Cardiovascular: Positive for: Regular Rate and Rhythm, Normal S1, S2. Negative for: Tachycardic Abdomen: Positive for: Normal Bowel Sounds, Other (Obese). Negative for: Tenderness, Distention, Peritoneal Signs Lower Extremity: Positive for: Normal Inspection Neurological: Positive for: Other (Moves all extremities) Skin: Positive for: Warm, Dry Psychiatric: Positive for: Alert - Medications Active Medications: Active Medications Generic Name Dose Route Start Last Admin Trade Name Freq PRN Reason Stop Dose Admin Acetaminophen 650 mg 03/02/18 00:50 02/05/18 20:48 Tylenol 650mg/20.3ml Solution Ud NG 650 mg Q6 PRN Administration GIVE FOR TEMP. 100*F OR ABOVE Acetylcysteine 4 ml 02/12/18 20:00 02/13/18 07:20 Acetylcysteine 20% INH 4 ml RQ12 [facility] Administration Albuterol/Ipratropium 3 ml 01/26/18 20:00 02/13/18 07:20 Duoneb 3 Mg/0.5 Mg (3 Ml) Ud INH 3 ml RQ6 [facility] Administration Apixaban 10 mg 02/09/18 18:00 02/13/18 10:04 Eliquis PO 02/16/18 18:01 10 mg BID [facility] Administration Aspirin 81 mg 01/17/18 10:00 02/13/18 10:04 Aspirin Chewable PO 81 mg DAILY [facility] Administration Carvedilol 12.5 mg 01/22/18 09:07 02/13/18 10:04 Coreg PO 12.5 mg BID [facility] Administration Hydralazine HCl 100 mg 02/03/18 00:29 02/13/18 05:45 Apresoline PO Not Given Q8 [facility] Levetiracetam 500 mg/ Dextrose 55 mls @ 420 mls/hr 02/08/18 22:00 02/13/18 10 :04 IVPB 420 mls/hr Q12H [facility] Administration Vancomycin HCl 1 gm/ Dextrose 250 mls @ 166.7 mls/hr 02/08/18 19:30 02/12/18 19:30 IVPB 166.7 mls/hr Q48H [facility] Administration Protocol Cefepime HCl 2 gm in 100 mls @ 200 mls/hr 02/08/18 19:00 02/13/18 05:59 Maxipime Iv 2 Gm Premix IVPB 02/13/18 19:01 200 mls/hr Q12H [facility] Administration Protocol Acyclovir 750 mg/ Dextrose 250 mls @ 100 mls/hr 02/08/18 20:00 02/13/18 08:08 IV 100 mls/hr Q12H [facility] Administration Protocol Insulin Aspart 0 unit 02/09/18 18:56 02/13/18 05:47 Novolog SC 6 unit Q6 [facility] Administration Protocol Insulin Glargine 20 unit 02/09/18 08:00 02/13/18 08:08 Lantus SC 20 u Q12H [facility] Administration Tamsulosin HCl 0.4 mg 01/30/18 20:00 02/13/18 10:04 Flomax PO 0.4 mg DAILY [facility] Administration - Patient Studies Lab Studies: Microbiology Studies 02/08/18 20:58 Blood Culture - Preliminary Blood NO GROWTH AFTER 4 DAYS 02/08/18 20:58 Blood Culture - Preliminary Blood NO GROWTH AFTER 4 DAYS Lab Studies 02/13/18 02/13/18 02/13/18 Range/Units 05:47 05:47 05:31 WBC 4.7 L (4.8-10.8) K/uL RBC 3.10 L (4.40-5.90) Mil/uL Hgb 10.0 L (12.0-18.0) g/dL Hct 29.0 L (35.0-51.0) % MCV 93.4 (80.0-94.0) fL MCH 32.2 H (27.0-31.0) pg MCHC 34.4 (33.0-37.0) g/dL RDW 12.6 (11.5-14.5) % Plt Count 72 L (130-400) K/uL MPV 11.7 (7.2-11.7) fL Neut % (Auto) 67.3 (50.0-75.0) % Lymph % (Auto) 21.5 (20.0-40.0) % Payette % (Auto) 6.9 (0.0-10.0) % Eos % (Auto) 4.0 (0.0-4.0) % Baso % (Auto) 0.3 (0.0-2.0) % Neut # (Auto) 3.2 (1.8-7.0) K/uL Lymph # (Auto) 1.0 (1.0-4.3) K/uL Payette # (Auto) 0.3 (0.0-0.8) K/uL Eos # (Auto) 0.2 (0.0-0.7) K/uL Baso # (Auto) 0.0 (0.0-0.2) K/uL Hep-Aria Thrombocytopen (Negative) Puncture Site pCO2 (35-45) mm/Hg pO2 (80-100) mm/Hg HCO3 (21-28) mmol/L ABG pH (7.35-7.45) ABG Total CO2 (22-28) mmol/L ABG O2 Saturation (95-98) % ABG Base Excess (-2.0-3.0) mmol/L Jamey Test ABG Potassium (3.6-5.2) mmol/L A-a O2 Difference mm/Hg Respiratory Index Sodium 138 (132-148) mmol/l Chloride 102 (98-107) mmol/L Glucose (75-110) mg/dl Lactate (0.7-2.1) mmol/L Vent Mode Mechanical Rate FiO2 % Tidal Volume PEEP Potassium 3.8 (3.6-5.2) mmol/L Carbon Dioxide 30 (22-30) mmol/L Anion Gap 10 (10-20) BUN 21 H (9-20) mg/dL Creatinine 0.9 (0.8-1.5) mg/dL Est GFR ( Amer) > 60 Est GFR (Non-Af Amer) > 60 POC Glucose (mg/dL) 260 H (65-110) mg/dL Random Glucose 249 H (75-110) mg/dL Calcium 8.2 L (8.6-10.4) mg/dl Phosphorus 3.2 (2.5-4.5) mg/dL Magnesium 2.3 (1.6-2.3) mg/dL Total Bilirubin 0.6 (0.2-1.3) mg/dL AST 23 (17-59) U/L ALT 23 (21-72) U/L Alkaline Phosphatase 78 (38-126) U/L Total Protein 5.0 L (6.3-8.3) g/dL Albumin 2.3 L (3.5-5.0) g/dL Globulin 2.7 (2.2-3.9) gm/dL Albumin/Globulin Ratio 0.9 L (1.0-2.1) Arterial Blood Potassium (3.6-5.2) mmol/L Levetiracetam mcg/mL 02/13/18 02/12/18 02/12/18 Range/Units 05:28 23:41 18:03 WBC (4.8-10.8) K/uL RBC (4.40-5.90) Mil/uL Hgb (12.0-18.0) g/dL Hct (35.0-51.0) % MCV (80.0-94.0) fL MCH (27.0-31.0) pg MCHC (33.0-37.0) g/dL RDW (11.5-14.5) % Plt Count (130-400) K/uL MPV (7.2-11.7) fL Neut % (Auto) (50.0-75.0) % Lymph % (Auto) (20.0-40.0) % Payette % (Auto) (0.0-10.0) % Eos % (Auto) (0.0-4.0) % Baso % (Auto) (0.0-2.0) % Neut # (Auto) (1.8-7.0) K/uL Lymph # (Auto) (1.0-4.3) K/uL Payette # (Auto) (0.0-0.8) K/uL Eos # (Auto) (0.0-0.7) K/uL Baso # (Auto) (0.0-0.2) K/uL Hep-Aria Thrombocytopen (Negative) Puncture Site Rb pCO2 42 (35-45) mm/Hg pO2 263 H (80-100) mm/Hg HCO3 29.2 H (21-28) mmol/L ABG pH 7.46 H (7.35-7.45) ABG Total CO2 31.2 H (22-28) mmol/L ABG O2 Saturation 100.0 H (95-98) % ABG Base Excess 5.4 H (-2.0-3.0) mmol/L Jamey Test Na ABG Potassium 3.9 (3.6-5.2) mmol/L A-a O2 Difference 184.0 mm/Hg Respiratory Index 0.7 Sodium 139.0 (132-148) mmol/l Chloride 108.0 H (98-107) mmol/L Glucose 279 H (75-110) mg/dl Lactate 1.1 (0.7-2.1) mmol/L Vent Mode Prvc Mechanical Rate 15 FiO2 70.0 % Tidal Volume 400 PEEP 5 Potassium (3.6-5.2) mmol/L Carbon Dioxide (22-30) mmol/L Anion Gap (10-20) BUN (9-20) mg/dL Creatinine (0.8-1.5) mg/dL Est GFR ( Amer) Est GFR (Non-Af Amer) POC Glucose (mg/dL) 264 H 284 H (65-110) mg/dL Random Glucose (75-110) mg/dL Calcium (8.6-10.4) mg/dl Phosphorus (2.5-4.5) mg/dL Magnesium (1.6-2.3) mg/dL Total Bilirubin (0.2-1.3) mg/dL AST (17-59) U/L ALT (21-72) U/L Alkaline Phosphatase (38-126) U/L Total Protein (6.3-8.3) g/dL Albumin (3.5-5.0) g/dL Globulin (2.2-3.9) gm/dL Albumin/Globulin Ratio (1.0-2.1) Arterial Blood Potassium 3.9 (3.6-5.2) mmol/L Levetiracetam mcg/mL 02/12/18 02/09/18 02/09/18 Range/Units 11:28 12:02 12:02 WBC (4.8-10.8) K/uL RBC (4.40-5.90) Mil/uL Hgb (12.0-18.0) g/dL Hct (35.0-51.0) % MCV (80.0-94.0) fL MCH (27.0-31.0) pg MCHC (33.0-37.0) g/dL RDW (11.5-14.5) % Plt Count (130-400) K/uL MPV (7.2-11.7) fL Neut % (Auto) (50.0-75.0) % Lymph % (Auto) (20.0-40.0) % Payette % (Auto) (0.0-10.0) % Eos % (Auto) (0.0-4.0) % Baso % (Auto) (0.0-2.0) % Neut # (Auto) (1.8-7.0) K/uL Lymph # (Auto) (1.0-4.3) K/uL Payette # (Auto) (0.0-0.8) K/uL Eos # (Auto) (0.0-0.7) K/uL Baso # (Auto) (0.0-0.2) K/uL Hep-Aria Thrombocytopen Positive H (Negative) Puncture Site pCO2 (35-45) mm/Hg pO2 (80-100) mm/Hg HCO3 (21-28) mmol/L ABG pH (7.35-7.45) ABG Total CO2 (22-28) mmol/L ABG O2 Saturation (95-98) % ABG Base Excess (-2.0-3.0) mmol/L Jamey Test ABG Potassium (3.6-5.2) mmol/L A-a O2 Difference mm/Hg Respiratory Index Sodium (132-148) mmol/l Chloride (98-107) mmol/L Glucose (75-110) mg/dl Lactate (0.7-2.1) mmol/L Vent Mode Mechanical Rate FiO2 % Tidal Volume PEEP Potassium (3.6-5.2) mmol/L Carbon Dioxide (22-30) mmol/L Anion Gap (10-20) BUN (9-20) mg/dL Creatinine (0.8-1.5) mg/dL Est GFR ( Amer) Est GFR (Non-Af Amer) POC Glucose (mg/dL) 346 H (65-110) mg/dL Random Glucose (75-110) mg/dL Calcium (8.6-10.4) mg/dl Phosphorus (2.5-4.5) mg/dL Magnesium (1.6-2.3) mg/dL Total Bilirubin (0.2-1.3) mg/dL AST (17-59) U/L ALT (21-72) U/L Alkaline Phosphatase (38-126) U/L Total Protein (6.3-8.3) g/dL Albumin (3.5-5.0) g/dL Globulin (2.2-3.9) gm/dL Albumin/Globulin Ratio (1.0-2.1) Arterial Blood Potassium (3.6-5.2) mmol/L Levetiracetam 26.1 mcg/mL Laboratory Results - last 24 hr 02/09/18 02/09/18 02/12/18 12:02 12:02 11:28 WBC RBC Hgb Hct MCV MCH MCHC RDW Plt Count MPV Neut % (Auto) Lymph % (Auto) Payette % (Auto) Eos % (Auto) Baso % (Auto) Neut # (Auto) Lymph # (Auto) Payette # (Auto) Eos # (Auto) Baso # (Auto) Hep-Aria Thrombocytopen Positive H Puncture Site pCO2 pO2 HCO3 ABG pH ABG Total CO2 ABG O2 Saturation ABG Base Excess Jamey Test ABG Potassium A-a O2 Difference Respiratory Index Sodium Chloride Glucose Lactate Vent Mode Mechanical Rate FiO2 Tidal Volume PEEP Potassium Carbon Dioxide Anion Gap BUN Creatinine Est GFR ( Amer) Est GFR (Non-Af Amer) POC Glucose (mg/dL) 346 H Random Glucose Calcium Phosphorus Magnesium Total Bilirubin AST ALT Alkaline Phosphatase Total Protein Albumin Globulin Albumin/Globulin Ratio Arterial Blood Potassium Levetiracetam 26.1 02/12/18 02/12/18 02/13/18 18:03 23:41 05:28 WBC RBC Hgb Hct MCV MCH MCHC RDW Plt Count MPV Neut % (Auto) Lymph % (Auto) Payette % (Auto) Eos % (Auto) Baso % (Auto) Neut # (Auto) Lymph # (Auto) [place]ette # (Auto) Eos # (Auto) Baso # (Auto) Hep-Aria Thrombocytopen Puncture Site Rb pCO2 42 pO2 263 H HCO3 29.2 H ABG pH 7.46 H ABG Total CO2 31.2 H ABG O2 Saturation 100.0 H ABG Base Excess 5.4 H Jamey Test Na ABG Potassium 3.9 A-a O2 Difference 184.0 Respiratory Index 0.7 Sodium 139.0 Chloride 108.0 H Glucose 279 H Lactate 1.1 Vent Mode Prvc Mechanical Rate 15 FiO2 70.0 Tidal Volume 400 PEEP 5 Potassium Carbon Dioxide Anion Gap BUN Creatinine Est GFR ( Amer) Est GFR (Non-Af Amer) POC Glucose (mg/dL) 284 H 264 H Random Glucose Calcium Phosphorus Magnesium Total Bilirubin AST ALT Alkaline Phosphatase Total Protein Albumin Globulin Albumin/Globulin Ratio Arterial Blood Potassium 3.9 Levetiracetam 02/13/18 02/13/18 02/13/18 05:31 05:47 05:47 WBC 4.7 L RBC 3.10 L Hgb 10.0 L Hct 29.0 L MCV 93.4 MCH 32.2 H MCHC 34.4 RDW 12.6 Plt Count 72 L MPV 11.7 Neut % (Auto) 67.3 Lymph % (Auto) 21.5 Payette % (Auto) 6.9 Eos % (Auto) 4.0 Baso % (Auto) 0.3 Neut # (Auto) 3.2 Lymph # (Auto) 1.0 Payette # (Auto) 0.3 Eos # (Auto) 0.2 Baso # (Auto) 0.0 Hep-Aria Thrombocytopen Puncture Site pCO2 pO2 HCO3 ABG pH ABG Total CO2 ABG O2 Saturation ABG Base Excess Jamey Test ABG Potassium A-a O2 Difference Respiratory Index Sodium 138 Chloride 102 Glucose Lactate Vent Mode Mechanical Rate FiO2 Tidal Volume PEEP Potassium 3.8 Carbon Dioxide 30 Anion Gap 10 BUN 21 H Creatinine 0.9 Est GFR ( Amer) > 60 Est GFR (Non-Af Amer) > 60 POC Glucose (mg/dL) 260 H Random Glucose 249 H Calcium 8.2 L Phosphorus 3.2 Magnesium 2.3 Total Bilirubin 0.6 AST 23 ALT 23 Alkaline Phosphatase 78 Total Protein 5.0 L Albumin 2.3 L Globulin 2.7 Albumin/Globulin Ratio 0.9 L Arterial Blood Potassium Levetiracetam Fingerstick Blood Sugar Results: 260 Assessment/Plan - Assessment and Plan (Free Text) Assessment: 67 year old male with a past medical history of type 2 dm, hypertension, cva, s/ p cabg (8yrs ago), hyperlipidemia who was admitted to the ICU after being found unresponsive by daughter. Patient subsequently had a witnessed seizure while in the hospital and was transferred to the ICU for further monitoring. While in the ICU patient was extubated and downgraded to the floors. While on the floors , patient desat low 80s, reintubated for acute respiratory failure. Brought back to the ICU. -Patient is more awake and alert today, following simple commands -On CPAP trial, will continue to monitor -ABG and CXR reviewed -Will check procalcitonin level today -Continue Keppra IV -Continue antibiotics: Cefepime 2gm Q12H, Vancomycin 1gm Q48H, Acyclovir 750mg IV Q12H -Patient with Saddle PE, was on heparin drip but discontinued due to thrombocytopenia -Continue Eliquis 10mg PO BID (to continue for one week, then 5mg PO BID) -HIT positive -Hypernatremia improved, free water flushes discontinued -Hypokalemia, Potassium repleted -May need gastrostomy tube, general surgery following -Continue PT/OT -Continue to monitor in the ICU -Plan discussed with Dr Mims <Ford Mims - Last Filed: 02/13/18 17:49> CCU Objective - Vital Signs / Intake & Output Vital Signs (Last 4 hours): Vital Signs Temp Pulse Resp BP Pulse Ox 02/13/18 16:00 97.6 F 70 16 97 02/13/18 15:08 69 15 123/54 L 99 02/13/18 14:08 74 20 107/49 L 100 Intake and Output (Last 8hrs): Intake & Output 02/13/18 02/13/18 02/13/18 06:59 14:59 22:59 Intake Total 1300 931.6 363.2 Output Total 850 975 400 Balance 450 -43.4 -36.8 Weight 212 lb 14.4 oz Intake: Intake, IV Amount 100 311.6 23.2 Left Distal Port Internal 11.6 23.2 Jugular Left Medial Port Internal 100 300 Jugular Tube Feeding 400 400 100 Other 800 220 240 Output: Urine 850 975 400 2-way Urethral 850 975 400 Other: # Bowel Movements 1 - Medications Active Medications: Active Medications Generic Name Dose Route Start Last Admin Trade Name Freq PRN Reason Stop Dose Admin Acetaminophen 650 mg 01/19/18 00:50 02/05/18 20:48 Tylenol 650mg/20.3ml Solution Ud NG 650 mg Q6 PRN Administration GIVE FOR TEMP. 100*F OR ABOVE Acetylcysteine 4 ml 02/12/18 20:00 02/13/18 07:20 Acetylcysteine 20% INH 4 ml RQ12 [facility] Administration Albuterol/Ipratropium 3 ml 01/26/18 20:00 02/13/18 13:50 Duoneb 3 Mg/0.5 Mg (3 Ml) Ud INH 3 ml RQ6 [facility] Administration Apixaban 10 mg 02/09/18 18:00 02/13/18 10:04 Eliquis PO 02/16/18 18:01 10 mg BID [facility] Administration Aspirin 81 mg 01/17/18 10:00 02/13/18 10:04 Aspirin Chewable PO 81 mg DAILY [facility] Administration Carvedilol 12.5 mg 01/22/18 09:07 02/13/18 10:04 Coreg PO 12.5 mg BID [facility] Administration Hydralazine HCl 100 mg 02/03/18 00:29 02/13/18 14:15 Apresoline PO Not Given Q8 [facility] Levetiracetam 500 mg/ Dextrose 55 mls @ 420 mls/hr 02/08/18 22:00 02/13/18 10 :04 IVPB 420 mls/hr Q12H [facility] Administration Vancomycin HCl 1 gm/ Dextrose 250 mls @ 166.7 mls/hr 02/08/18 19:30 02/12/18 19:30 IVPB 166.7 mls/hr Q48H [facility] Administration Protocol Cefepime HCl 2 gm in 100 mls @ 200 mls/hr 02/08/18 19:00 02/13/18 05:59 Maxipime Iv 2 Gm Premix IVPB 02/13/18 19:01 200 mls/hr Q12H [facility] Administration Protocol Acyclovir 750 mg/ Dextrose 250 mls @ 100 mls/hr 02/08/18 20:00 02/13/18 08:08 IV 100 mls/hr Q12H [facility] Administration Protocol Argatroban 250 mg/ Dextrose 252.5 mls @ 11.7 mls/hr 02/13/18 14:30 02/13/18 14:21 IV 11.7 mls/hr .[id number] [facility] Administration Protocol 2 MCG/KG/MIN Insulin Aspart 0 unit 02/09/18 18:56 02/13/18 12:04 Novolog SC 4 unit Q6 [facility] Administration Protocol Insulin Glargine 20 unit 02/09/18 08:00 02/13/18 08:08 Lantus SC 20 u Q12H [facility] Administration Pantoprazole Sodium 40 mg 02/13/18 11:30 02/13/18 12:04 Protonix Inj IVP 40 mg DAILY [facility] Administration Tamsulosin HCl 0.4 mg 01/30/18 20:00 02/13/18 10:04 Flomax PO 0.4 mg DAILY [facility] Administration - Patient Studies Lab Studies: Microbiology Studies 02/08/18 20:58 Blood Culture - Preliminary Blood NO GROWTH AFTER 4 DAYS 02/08/18 20:58 Blood Culture - Preliminary Blood NO GROWTH AFTER 4 DAYS Lab Studies 02/13/18 02/13/18 02/13/18 Range/Units 11:40 10:54 05:47 WBC (4.8-10.8) K/uL RBC (4.40-5.90) Mil/uL Hgb (12.0-18.0) g/dL Hct (35.0-51.0) % MCV (80.0-94.0) fL MCH (27.0-31.0) pg MCHC (33.0-37.0) g/dL RDW (11.5-14.5) % Plt Count (130-400) K/uL MPV (7.2-11.7) fL Neut % (Auto) (50.0-75.0) % Lymph % (Auto) (20.0-40.0) % Payette % (Auto) (0.0-10.0) % Eos % (Auto) (0.0-4.0) % Baso % (Auto) (0.0-2.0) % Neut # (Auto) (1.8-7.0) K/uL Lymph # (Auto) (1.0-4.3) K/uL Payette # (Auto) (0.0-0.8) K/uL Eos # (Auto) (0.0-0.7) K/uL Baso # (Auto) (0.0-0.2) K/uL Puncture Site pCO2 (35-45) mm/Hg pO2 (80-100) mm/Hg HCO3 (21-28) mmol/L ABG pH (7.35-7.45) ABG Total CO2 (22-28) mmol/L ABG O2 Saturation (95-98) % ABG Base Excess (-2.0-3.0) mmol/L Jamey Test ABG Potassium (3.6-5.2) mmol/L A-a O2 Difference mm/Hg Respiratory Index Sodium 138 (132-148) mmol/l Chloride 102 (98-107) mmol/L Glucose (75-110) mg/dl Lactate (0.7-2.1) mmol/L Vent Mode Mechanical Rate FiO2 % Tidal Volume PEEP Potassium 3.8 (3.6-5.2) mmol/L Carbon Dioxide 30 (22-30) mmol/L Anion Gap 10 (10-20) BUN 21 H (9-20) mg/dL Creatinine 0.9 (0.8-1.5) mg/dL Est GFR ( Amer) > 60 Est GFR (Non-Af Amer) > 60 POC Glucose (mg/dL) 227 H (65-110) mg/dL Random Glucose 249 H (75-110) mg/dL Calcium 8.2 L (8.6-10.4) mg/dl Phosphorus 3.2 (2.5-4.5) mg/dL Magnesium 2.3 (1.6-2.3) mg/dL Total Bilirubin 0.6 (0.2-1.3) mg/dL AST 23 (17-59) U/L ALT 23 (21-72) U/L Alkaline Phosphatase 78 (38-126) U/L Total Protein 5.0 L (6.3-8.3) g/dL Albumin 2.3 L (3.5-5.0) g/dL Globulin 2.7 (2.2-3.9) gm/dL Albumin/Globulin Ratio 0.9 L (1.0-2.1) Procalcitonin < 0.05 L (0.19-0.49) NG/ML Arterial Blood Potassium (3.6-5.2) mmol/L 02/13/18 02/13/18 02/13/18 Range/Units 05:47 05:31 05:28 WBC 4.7 L (4.8-10.8) K/uL RBC 3.10 L (4.40-5.90) Mil/uL Hgb 10.0 L (12.0-18.0) g/dL Hct 29.0 L (35.0-51.0) % MCV 93.4 (80.0-94.0) fL MCH 32.2 H (27.0-31.0) pg MCHC 34.4 (33.0-37.0) g/dL RDW 12.6 (11.5-14.5) % Plt Count 72 L (130-400) K/uL MPV 11.7 (7.2-11.7) fL Neut % (Auto) 67.3 (50.0-75.0) % Lymph % (Auto) 21.5 (20.0-40.0) % [place]ette % (Auto) 6.9 (0.0-10.0) % Eos % (Auto) 4.0 (0.0-4.0) % Baso % (Auto) 0.3 (0.0-2.0) % Neut # (Auto) 3.2 (1.8-7.0) K/uL Lymph # (Auto) 1.0 (1.0-4.3) K/uL Payette # (Auto) 0.3 (0.0-0.8) K/uL Eos # (Auto) 0.2 (0.0-0.7) K/uL Baso # (Auto) 0.0 (0.0-0.2) K/uL Puncture Site Rb pCO2 42 (35-45) mm/Hg pO2 263 H (80-100) mm/Hg HCO3 29.2 H (21-28) mmol/L ABG pH 7.46 H (7.35-7.45) ABG Total CO2 31.2 H (22-28) mmol/L ABG O2 Saturation 100.0 H (95-98) % ABG Base Excess 5.4 H (-2.0-3.0) mmol/L Jamey Test Na ABG Potassium 3.9 (3.6-5.2) mmol/L A-a O2 Difference 184.0 mm/Hg Respiratory Index 0.7 Sodium 139.0 (132-148) mmol/l Chloride 108.0 H (98-107) mmol/L Glucose 279 H (75-110) mg/dl Lactate 1.1 (0.7-2.1) mmol/L Vent Mode Prvc Mechanical Rate 15 FiO2 70.0 % Tidal Volume 400 PEEP 5 Potassium (3.6-5.2) mmol/L Carbon Dioxide (22-30) mmol/L Anion Gap (10-20) BUN (9-20) mg/dL Creatinine (0.8-1.5) mg/dL Est GFR ( Amer) Est GFR (Non-Af Amer) POC Glucose (mg/dL) 260 H (65-110) mg/dL Random Glucose (75-110) mg/dL Calcium (8.6-10.4) mg/dl Phosphorus (2.5-4.5) mg/dL Magnesium (1.6-2.3) mg/dL Total Bilirubin (0.2-1.3) mg/dL AST (17-59) U/L ALT (21-72) U/L Alkaline Phosphatase (38-126) U/L Total Protein (6.3-8.3) g/dL Albumin (3.5-5.0) g/dL Globulin (2.2-3.9) gm/dL Albumin/Globulin Ratio (1.0-2.1) Procalcitonin (0.19-0.49) NG/ML Arterial Blood Potassium 3.9 (3.6-5.2) mmol/L 02/12/18 02/12/18 Range/Units 23:41 18:03 WBC (4.8-10.8) K/uL RBC (4.40-5.90) Mil/uL Hgb (12.0-18.0) g/dL Hct (35.0-51.0) % MCV (80.0-94.0) fL MCH (27.0-31.0) pg MCHC (33.0-37.0) g/dL RDW (11.5-14.5) % Plt Count (130-400) K/uL MPV (7.2-11.7) fL Neut % (Auto) (50.0-75.0) % Lymph % (Auto) (20.0-40.0) % [place] % (Auto) (0.0-10.0) % Eos % (Auto) (0.0-4.0) % Baso % (Auto) (0.0-2.0) % Neut # (Auto) (1.8-7.0) K/uL Lymph # (Auto) (1.0-4.3) K/uL Payette # (Auto) (0.0-0.8) K/uL Eos # (Auto) (0.0-0.7) K/uL Baso # (Auto) (0.0-0.2) K/uL Puncture Site pCO2 (35-45) mm/Hg pO2 (80-100) mm/Hg HCO3 (21-28) mmol/L ABG pH (7.35-7.45) ABG Total CO2 (22-28) mmol/L ABG O2 Saturation (95-98) % ABG Base Excess (-2.0-3.0) mmol/L Jamey Test ABG Potassium (3.6-5.2) mmol/L A-a O2 Difference mm/Hg Respiratory Index Sodium (132-148) mmol/l Chloride (98-107) mmol/L Glucose (75-110) mg/dl Lactate (0.7-2.1) mmol/L Vent Mode Mechanical Rate FiO2 % Tidal Volume PEEP Potassium (3.6-5.2) mmol/L Carbon Dioxide (22-30) mmol/L Anion Gap (10-20) BUN (9-20) mg/dL Creatinine (0.8-1.5) mg/dL Est GFR ( Amer) Est GFR (Non-Af Amer) POC Glucose (mg/dL) 264 H 284 H (65-110) mg/dL Random Glucose (75-110) mg/dL Calcium (8.6-10.4) mg/dl Phosphorus (2.5-4.5) mg/dL Magnesium (1.6-2.3) mg/dL Total Bilirubin (0.2-1.3) mg/dL AST (17-59) U/L ALT (21-72) U/L Alkaline Phosphatase (38-126) U/L Total Protein (6.3-8.3) g/dL Albumin (3.5-5.0) g/dL Globulin (2.2-3.9) gm/dL Albumin/Globulin Ratio (1.0-2.1) Procalcitonin (0.19-0.49) NG/ML Arterial Blood Potassium (3.6-5.2) mmol/L Laboratory Results - last 24 hr 02/12/18 02/12/18 02/13/18 18:03 23:41 05:28 WBC RBC Hgb Hct MCV MCH MCHC RDW Plt Count MPV Neut % (Auto) Lymph % (Auto) [place] % (Auto) Eos % (Auto) Baso % (Auto) Neut # (Auto) Lymph # (Auto) [place] # (Auto) Eos # (Auto) Baso # (Auto) Puncture Site Rb pCO2 42 pO2 263 H HCO3 29.2 H ABG pH 7.46 H ABG Total CO2 31.2 H ABG O2 Saturation 100.0 H ABG Base Excess 5.4 H Jamey Test Na ABG Potassium 3.9 A-a O2 Difference 184.0 Respiratory Index 0.7 Sodium 139.0 Chloride 108.0 H Glucose 279 H Lactate 1.1 Vent Mode Prvc Mechanical Rate 15 FiO2 70.0 Tidal Volume 400 PEEP 5 Potassium Carbon Dioxide Anion Gap BUN Creatinine Est GFR ( Amer) Est GFR (Non-Af Amer) POC Glucose (mg/dL) 284 H 264 H Random Glucose Calcium Phosphorus Magnesium Total Bilirubin AST ALT Alkaline Phosphatase Total Protein Albumin Globulin Albumin/Globulin Ratio Procalcitonin Arterial Blood Potassium 3.9 02/13/18 02/13/18 02/13/18 05:31 05:47 05:47 WBC 4.7 L RBC 3.10 L Hgb 10.0 L Hct 29.0 L MCV 93.4 MCH 32.2 H MCHC 34.4 RDW 12.6 Plt Count 72 L MPV 11.7 Neut % (Auto) 67.3 Lymph % (Auto) 21.5 [place] % (Auto) 6.9 Eos % (Auto) 4.0 Baso % (Auto) 0.3 Neut # (Auto) 3.2 Lymph # (Auto) 1.0 [place]ette # (Auto) 0.3 Eos # (Auto) 0.2 Baso # (Auto) 0.0 Puncture Site pCO2 pO2 HCO3 ABG pH ABG Total CO2 ABG O2 Saturation ABG Base Excess Jamey Test ABG Potassium A-a O2 Difference Respiratory Index Sodium 138 Chloride 102 Glucose Lactate Vent Mode Mechanical Rate FiO2 Tidal Volume PEEP Potassium 3.8 Carbon Dioxide 30 Anion Gap 10 BUN 21 H Creatinine 0.9 Est GFR ( Amer) > 60 Est GFR (Non-Af Amer) > 60 POC Glucose (mg/dL) 260 H Random Glucose 249 H Calcium 8.2 L Phosphorus 3.2 Magnesium 2.3 Total Bilirubin 0.6 AST 23 ALT 23 Alkaline Phosphatase 78 Total Protein 5.0 L Albumin 2.3 L Globulin 2.7 Albumin/Globulin Ratio 0.9 L Procalcitonin Arterial Blood Potassium 02/13/18 02/13/18 10:54 11:40 WBC RBC Hgb Hct MCV MCH MCHC RDW Plt Count MPV Neut % (Auto) Lymph % (Auto) [place] % (Auto) Eos % (Auto) Baso % (Auto) Neut # (Auto) Lymph # (Auto) [place] # (Auto) Eos # (Auto) Baso # (Auto) Puncture Site pCO2 pO2 HCO3 ABG pH ABG Total CO2 ABG O2 Saturation ABG Base Excess Jamey Test ABG Potassium A-a O2 Difference Respiratory Index Sodium Chloride Glucose Lactate Vent Mode Mechanical Rate FiO2 Tidal Volume PEEP Potassium Carbon Dioxide Anion Gap BUN Creatinine Est GFR ( Amer) Est GFR (Non-Af Amer) POC Glucose (mg/dL) 227 H Random Glucose Calcium Phosphorus Magnesium Total Bilirubin AST ALT Alkaline Phosphatase Total Protein Albumin Globulin Albumin/Globulin Ratio Procalcitonin < 0.05 L Arterial Blood Potassium Attending/Attestation - Attestation I have personally seen and examined this patient.: Yes I have fully participated in the care of the patient.: Yes I have reviewed all pertinent clinical information: Yes Notes (Text): 02/13/18 17:47 Patient seen and examined in the intensive care unit. Case discussed with staff in the morning. Remains intubated on ventilatory support Patient tolerated CPAP for a few hours later switched to assist controll for shortness of breath Patient remains lethargic Being treated for pulmonary embolism with eliquis Hit antibodies positive Continue antibiotics Follow up ABG and chest x-ray Continue antiseizure medicines
--- NOTE | 2018-02-13 12:30 | CP.PCM.PN ---
Subjective - Date & Time of Evaluation Date of Evaluation: 02/13/18 Time of Evaluation: 10:00 - Subjective Subjective: Yesterday afternoon patient desat to 40s and was bradycardic, found to have mucous plug that was suctioned successfully. Doing better, on CPAP trial. Awake and alert. Follows simple commands, moving all extremities. Objective - Vital Signs/Intake and Output Vital Signs (last 24 hours): Temp Pulse Resp BP Pulse Ox 97.5 F L 63 22 126/54 L 99 02/13/18 12:00 02/13/18 12:08 02/13/18 12:08 02/13/18 12:08 02/13/18 12:08 Intake and Output: 02/13/18 02/13/18 06:59 18:59 Intake Total 2450 720 Output Total 1440 725 Balance 1010 -5 - Medications Medications: Current Medications Acetaminophen (Tylenol 650mg/20.3ml Solution Ud) 650 mg NG Q6 PRN PRN Reason: GIVE FOR TEMP. 100*F OR ABOVE Last Admin: 02/05/18 20:48 Dose: 650 mg Acetylcysteine (Acetylcysteine 20%) 4 ml INH RQ12 [facility] Last Admin: 02/13/18 07:20 Dose: 4 ml Albuterol/Ipratropium (Duoneb 3 Mg/0.5 Mg (3 Ml) Ud) 3 ml INH RQ6 [facility] Last Admin: 02/13/18 07:20 Dose: 3 ml Apixaban (Eliquis) 10 mg PO BID [facility] Stop: 02/16/18 18:01 Last Admin: 02/13/18 10:04 Dose: 10 mg Aspirin (Aspirin Chewable) 81 mg PO DAILY [facility] Last Admin: 02/13/18 10:04 Dose: 81 mg Carvedilol (Coreg) 12.5 mg PO BID [facility] Last Admin: 02/13/18 10:04 Dose: 12.5 mg Hydralazine HCl (Apresoline) 100 mg PO Q8 [facility] Last Admin: 02/13/18 05:45 Dose: Not Given Levetiracetam 500 mg/ Dextrose 55 mls @ 420 mls/hr IVPB Q12H [facility] Last Admin: 02/13/18 10:04 Dose: 420 mls/hr Vancomycin HCl 1 gm/ Dextrose 250 mls @ 166.7 mls/hr IVPB Q48H [facility] PRN Reason: Protocol Last Admin: 02/12/18 19:30 Dose: 166.7 mls/hr Cefepime HCl (Maxipime Iv 2 Gm Premix) 2 gm in 100 mls @ 200 mls/hr IVPB Q12H [facility] PRN Reason: Protocol Stop: 02/13/18 19:01 Last Admin: 02/13/18 05:59 Dose: 200 mls/hr Acyclovir 750 mg/ Dextrose 250 mls @ 100 mls/hr IV Q12H [facility] PRN Reason: Protocol Last Admin: 02/13/18 08:08 Dose: 100 mls/hr Insulin Aspart (Novolog) 0 unit SC Q6 [facility] PRN Reason: Protocol Last Admin: 02/13/18 12:04 Dose: 4 unit Insulin Glargine (Lantus) 20 unit SC Q12H [facility] Last Admin: 02/13/18 08:08 Dose: 20 u Pantoprazole Sodium (Protonix Inj) 40 mg IVP DAILY [facility] Last Admin: 02/13/18 12:04 Dose: 40 mg Tamsulosin HCl (Flomax) 0.4 mg PO DAILY [facility] Last Admin: 02/13/18 10:04 Dose: 0.4 mg - Labs Labs: 02/13/18 05:47 02/13/18 05:47 PT 12.4 SECONDS (9.7-12.2) H 02/02/18 06:19 INR 1.1 02/02/18 06:19 APTT 50 SECONDS (21-34) H D 02/09/18 12:02 - Constitutional Appears: Confused, Chronically Ill - Head Exam Head Exam: NORMOCEPHALIC - Eye Exam Eye Exam: absent: Scleral icterus - ENT Exam ENT Exam: Mucous Membranes Dry - Neck Exam Neck Exam: absent: Lymphadenopathy, Thyromegaly - Respiratory Exam Respiratory Exam: Decreased Breath Sounds - Cardiovascular Exam Cardiovascular Exam: REGULAR RHYTHM - GI/Abdominal Exam GI & Abdominal Exam: Distended, Soft - Rectal Exam Rectal Exam: Deferred - Exam Exam: NORMAL INSPECTION - Extremities Exam Extremities Exam: Pedal Edema - Back Exam Back Exam: absent: CVA tenderness (L), CVA tenderness (R) - Neurological Exam Neurological Exam: Altered - Psychiatric Exam Psychiatric exam: Depressed - Skin Skin Exam: Dry Assessment and Plan (1) Sepsis Status: Acute (2) Sepsis Status: Acute (3) COPD (chronic obstructive pulmonary disease) Status: Acute (4) Congestive heart failure Status: Acute (5) Diabetes Status: Acute (6) Encephalopathy Status: Acute
--- NOTE | 2018-02-13 12:44 | CP.PCM.PN ---
Subjective - Date & Time of Evaluation Date of Evaluation: 02/13/18 Time of Evaluation: 06:45 - Subjective Subjective: Surgery progress note. Dr. Giordano Pt seen and examined at bedside. No acute events overnight. He is intubated and on vent. No response to verbal or tactile stimuli. Objective - Vital Signs/Intake and Output Vital Signs (last 24 hours): Temp Pulse Resp BP Pulse Ox 97.5 F L 63 22 126/54 L 99 02/13/18 12:00 02/13/18 12:08 02/13/18 12:08 02/13/18 12:08 02/13/18 12:08 Intake and Output: 02/13/18 02/13/18 06:59 18:59 Intake Total 2450 720 Output Total 1440 725 Balance 1010 -5 - Medications Medications: Current Medications Acetaminophen (Tylenol 650mg/20.3ml Solution Ud) 650 mg NG Q6 PRN PRN Reason: GIVE FOR TEMP. 100*F OR ABOVE Last Admin: 02/05/18 20:48 Dose: 650 mg Acetylcysteine (Acetylcysteine 20%) 4 ml INH RQ12 [facility] Last Admin: 02/13/18 07:20 Dose: 4 ml Albuterol/Ipratropium (Duoneb 3 Mg/0.5 Mg (3 Ml) Ud) 3 ml INH RQ6 [facility] Last Admin: 02/13/18 07:20 Dose: 3 ml Apixaban (Eliquis) 10 mg PO BID [facility] Stop: 02/16/18 18:01 Last Admin: 02/13/18 10:04 Dose: 10 mg Aspirin (Aspirin Chewable) 81 mg PO DAILY [facility] Last Admin: 02/13/18 10:04 Dose: 81 mg Carvedilol (Coreg) 12.5 mg PO BID [facility] Last Admin: 02/13/18 10:04 Dose: 12.5 mg Hydralazine HCl (Apresoline) 100 mg PO Q8 [facility] Last Admin: 02/13/18 05:45 Dose: Not Given Levetiracetam 500 mg/ Dextrose 55 mls @ 420 mls/hr IVPB Q12H [facility] Last Admin: 02/13/18 10:04 Dose: 420 mls/hr Vancomycin HCl 1 gm/ Dextrose 250 mls @ 166.7 mls/hr IVPB Q48H [facility] PRN Reason: Protocol Last Admin: 02/12/18 19:30 Dose: 166.7 mls/hr Cefepime HCl (Maxipime Iv 2 Gm Premix) 2 gm in 100 mls @ 200 mls/hr IVPB Q12H [facility] PRN Reason: Protocol Stop: 02/13/18 19:01 Last Admin: 02/13/18 05:59 Dose: 200 mls/hr Acyclovir 750 mg/ Dextrose 250 mls @ 100 mls/hr IV Q12H [facility] PRN Reason: Protocol Last Admin: 02/13/18 08:08 Dose: 100 mls/hr Argatroban 250 mg/ Dextrose 252.5 mls @ 11.7 mls/hr IV .[id number] [facility]; 2 MCG/KG/ MIN PRN Reason: Protocol Insulin Aspart (Novolog) 0 unit SC Q6 [facility] PRN Reason: Protocol Last Admin: 02/13/18 12:04 Dose: 4 unit Insulin Glargine (Lantus) 20 unit SC Q12H [facility] Last Admin: 02/13/18 08:08 Dose: 20 u Pantoprazole Sodium (Protonix Inj) 40 mg IVP DAILY [facility] Last Admin: 02/13/18 12:04 Dose: 40 mg Tamsulosin HCl (Flomax) 0.4 mg PO DAILY [facility] Last Admin: 02/13/18 10:04 Dose: 0.4 mg - Labs Labs: 02/13/18 05:47 02/13/18 05:47 PT 12.4 SECONDS (9.7-12.2) H 02/02/18 06:19 INR 1.1 02/02/18 06:19 APTT 50 SECONDS (21-34) H D 02/09/18 12:02 - Constitutional Appears: Non-toxic, No Acute Distress - Head Exam Head Exam: ATRAUMATIC, NORMAL INSPECTION, NORMOCEPHALIC - Eye Exam Eye Exam: EOMI, Normal appearance - ENT Exam ENT Exam: Mucous Membranes Moist - Respiratory Exam Respiratory Exam: NORMAL BREATHING PATTERN. absent: Accessory Muscle Use, Respiratory Distress - Cardiovascular Exam Cardiovascular Exam: RRR. absent: JVD - GI/Abdominal Exam GI & Abdominal Exam: Soft. absent: Firm, Guarding, Rigid, Tenderness Additional comments: NG tube in place with enteral feeds. - Extremities Exam Extremities Exam: Normal Inspection - Neurological Exam Additional comments: Intubated. No response to tactile or verbal stimuli Assessment and Plan - Assessment and Plan (Free Text) Assessment: 67yo M with CVA vs. seizure; Surgery following for gastrostomy placement Plan: - Hold eliquis. 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 Current type of PE more likely to have a lower extremity DVT source. If positive, we may consider IVC filter placement. Further recs as per Dr. Pasquale Arango PGY1 surgery pager: [phone]
[2018-02-13] MEDS: Argatroban 250 MG in Dextrose 5% In Water 250 ML IV SCH (14:21)
[2018-02-13] MEDS ORDERED: POLYETHYLENE GLYCOL 3350 17 GM/Dose PACKET PO ONE (15:34)
--- NOTE | 2018-02-13 17:08 | CP.PCM.PN ---
Subjective - Date & Time of Evaluation Date of Evaluation: 02/13/18 Time of Evaluation: 17:40 - Subjective Subjective: Pt is seen and examined in ICU, he is on ventilator, opens his eyes, his oxygen requirement went up, he remains afebrile Objective - Vital Signs/Intake and Output Vital Signs (last 24 hours): Temp Pulse Resp BP Pulse Ox 97.6 F 70 16 123/54 L 97 02/13/18 16:00 02/13/18 16:00 02/13/18 16:00 02/13/18 15:08 02/13/18 16:00 Intake and Output: 02/13/18 02/13/18 06:59 18:59 Intake Total 2450 1294.8 Output Total 1440 1375 Balance 1010 -80.2 - Medications Medications: Current Medications Acetaminophen (Tylenol 650mg/20.3ml Solution Ud) 650 mg NG Q6 PRN PRN Reason: GIVE FOR TEMP. 100*F OR ABOVE Last Admin: 02/05/18 20:48 Dose: 650 mg Acetylcysteine (Acetylcysteine 20%) 4 ml INH RQ12 [facility] Last Admin: 02/13/18 07:20 Dose: 4 ml Albuterol/Ipratropium (Duoneb 3 Mg/0.5 Mg (3 Ml) Ud) 3 ml INH RQ6 [facility] Last Admin: 02/13/18 13:50 Dose: 3 ml Apixaban (Eliquis) 10 mg PO BID [facility] Stop: 02/16/18 18:01 Last Admin: 02/13/18 10:04 Dose: 10 mg Aspirin (Aspirin Chewable) 81 mg PO DAILY [facility] Last Admin: 02/13/18 10:04 Dose: 81 mg Carvedilol (Coreg) 12.5 mg PO BID [facility] Last Admin: 02/13/18 10:04 Dose: 12.5 mg Hydralazine HCl (Apresoline) 100 mg PO Q8 [facility] Last Admin: 02/13/18 14:15 Dose: Not Given Levetiracetam 500 mg/ Dextrose 55 mls @ 420 mls/hr IVPB Q12H [facility] Last Admin: 02/13/18 10:04 Dose: 420 mls/hr Vancomycin HCl 1 gm/ Dextrose 250 mls @ 166.7 mls/hr IVPB Q48H [facility] PRN Reason: Protocol Last Admin: 02/12/18 19:30 Dose: 166.7 mls/hr Cefepime HCl (Maxipime Iv 2 Gm Premix) 2 gm in 100 mls @ 200 mls/hr IVPB Q12H [facility] PRN Reason: Protocol Stop: 02/13/18 19:01 Last Admin: 02/13/18 05:59 Dose: 200 mls/hr Acyclovir 750 mg/ Dextrose 250 mls @ 100 mls/hr IV Q12H [facility] PRN Reason: Protocol Last Admin: 02/13/18 08:08 Dose: 100 mls/hr Argatroban 250 mg/ Dextrose 252.5 mls @ 11.7 mls/hr IV .[id number] [facility]; 2 MCG/KG/ MIN PRN Reason: Protocol Last Admin: 02/13/18 14:21 Dose: 11.7 mls/hr Insulin Aspart (Novolog) 0 unit SC Q6 [facility] PRN Reason: Protocol Last Admin: 02/13/18 12:04 Dose: 4 unit Insulin Glargine (Lantus) 20 unit SC Q12H [facility] Last Admin: 02/13/18 08:08 Dose: 20 u Pantoprazole Sodium (Protonix Inj) 40 mg IVP DAILY [facility] Last Admin: 02/13/18 12:04 Dose: 40 mg Tamsulosin HCl (Flomax) 0.4 mg PO DAILY [facility] Last Admin: 02/13/18 10:04 Dose: 0.4 mg - Labs Labs: 02/13/18 05:47 02/13/18 05:47 PT 12.4 SECONDS (9.7-12.2) H 02/02/18 06:19 INR 1.1 02/02/18 06:19 APTT 50 SECONDS (21-34) H D 02/09/18 12:02 Assessment and Plan (1) Status epilepticus Status: Acute (2) COPD (chronic obstructive pulmonary disease) Status: Acute (3) Congestive heart failure Status: Acute (4) Diabetes Status: Acute (5) Hypernatremia Status: Acute (6) Acute respiratory failure Status: Acute
[2018-02-14] MEDS: Albuterol-Ipratrop 3 mg / 0.5 (3 ml) UD INH SCH ×4 (01:42→20:23)
[2018-02-14 05:45] LABS: ARTERIAL BLOOD GAS HCO3 31.1 mmol/L (21-28); ARTERIAL BLOOD GAS HEMOGLOBIN 10.3 g/dL (11.7-17.4); ARTERIAL BLOOD GAS O2 SAT 99.4 % (95-98); ARTERIAL BLOOD GAS PCO2 42 mm/Hg (35-45); ARTERIAL BLOOD GAS PH 7.49 (7.35-7.45); ARTERIAL BLOOD GAS PO2 123 mm/Hg (80-100); ARTERIAL BLOOD GAS TCO2 33.3 mmol/L (22-28)
[2018-02-14] MEDS: Cefepime IV 2 gm in Dextrose 2 GM/100 ML BAG IVPB SCH ×2 (06:05→18:01)
--- NOTE | 2018-02-14 06:09 | PN ---
FOLLOWUP RENAL CONSULTATION DATE: 02/12/2018 LOCATION: The patient is located in ICU, bed 7. REQUESTED BY: Arash Rose MD REASON FOR FOLLOWUP: Status post hypernatremia, acute renal failure, respiratory failure, and pulmonary embolism. SUBJECTIVE: Mr. Latif is a 67-year-old elderly male with a past medical history significant for hypertension, diabetes, coronary artery disease, and CVA who was admitted with altered mental status and found to have a witnessed seizure in the emergency room and subsequently the patient was intubated and admitted to ICU. His hospital course complicated by fever and found to have a positive DVT in right upper extremity, polyuria, osmotic diuresis and hypernatremia, which was corrected and subsequently the patient was extubated and transferred to medical floor. Subsequently, he developed again fever and alerted mental status with worsening mental status on the baseline and found to have a saddle embolus in the lungs. The patient is being treated for PE and intubated. The patient is opening eyes to verbal stimuli, spontaneous movement of the both upper and lower extremities, and remains intubated, on CPAP. PHYSICAL EXAMINATION: VITAL SIGNS: As follows; blood pressure this morning 130/51, pulse 76, respirations 12, and afebrile temperature 97.6. GENERAL: Mr. Latif is a 67-year-old elderly male, well-built, well-nourished, not in distress, on ventilator, awake, and try to follow 1 or 2 simple commands. HEENT: Pupils normal and reactive to light and accommodation. Conjunctivae pink. Sclera anicteric. No thyroid enlargement. LUNGS: Symmetric on both sides. Bilateral breath sounds present. No crackles. CARDIOVASCULAR: Ages [place] at the fifth intercostal space, midclavicular line. S1 and S2 audible. No murmur or gallop. ABDOMEN: Normal in appearance, soft, and tympanic. No guarding. No rigidity. No hepatosplenomegaly. CENTRAL NERVOUS SYSTEM: The patient is on ventilator, awake, try to follow simple commands, and moving all 4 extremities. LABORATORY DATA: Include as follow, as of 02/12/2018; WBC 5.6, hemoglobin 11, hematocrit 31.9, and platelets 77. Sodium 141, potassium 3.3, chloride 103, CO2 of 29, BUN 24, creatinine 0.9, glucose 198, calcium is 8, phosphorus 2.6, magnesium 2.2, total bili 0.7, AST 26, ALT 27, alkaline phosphate 103, total protein 5.4, albumin is 2.6, and vancomycin trough level is 5.2. His ABG; pH of 7.46, pCO2 of 39, pO2 of 78, bicarb of 27.8, and saturation 97.6. Vent settings; 16, tidal volume 500, FiO2 30%, and PEEP of 5. Chest x-ray, no significant interval change compared to the prior examination. Chest x-ray as of 02/12/2018 at 8:48 a.m., no active disease. ASSESSMENT: In summary, Mr. Latif is a 67-year-old elderly male with a history of hypertension, diabetes, hyperlipidemia, coronary artery disease, status post coronary artery bypass graft, cerebrovascular accident with questionable new onset of seizures, status post hypernatremia, status post polyuria, status post fever, and positive deep vein thrombosis, who was re-transferred to ICU again for shortness of breath and alerted mental status and found to have a pulmonary embolism, on Eliquis now. 1. Status post hypernatremia, serum sodium is now within normal limits. 2. Status post acute renal failure, on chronic kidney disease, renal function improved and back to his baseline. 3. Hyperkalemia, agreed to supplement of the potassium this morning. 4. Respiratory failure. 5. Pulmonary embolism. 6. Status post seizures, continue Keppra. We will follow with you. We will follow up as needed. Renal function improved and sodium is improved. Thank you for allowing me to participate in your patient's care. Baldemar Ruiz MD
[2018-02-14] MEDS: (Novolog) Insulin Aspart, Recombinant 100 u/ml 10 ml vial SC SCH ×4 (06:15→18:04)
--- NOTE | 2018-02-14 06:35 | CP.PCM.PN ---
Subjective - Date & Time of Evaluation Date of Evaluation: 02/14/18 Time of Evaluation: 06:35 - Subjective Subjective: Mr. Ltaif was seen and examined at the bedside in ICU. He is n mechanical ventilator on PRVC mode. He response to pain stimuli with facial grimacing and moving his bilateral upper and lower extremities spontaneously with left lower extremity weaker than the rest of his extremities, GCS-4T.He is able to open his eyes spontaneously with both verbal and tactile stimuli. He was not able to follow commands this morning, however, per staff, he is able to follow simple commands from the family.He is able to move all extremities, but really stiffen his upper extremities as a response to any stimuli.. His eyes remain unequal left 3mm and right 2 mm brisk to react. He has a bilateral hand mittens for patient safety.There was no untoward events overnight. Objective - Vital Signs/Intake and Output Vital Signs (last 24 hours): Temp Pulse Resp BP Pulse Ox 98.6 F 67 19 117/55 L 99 02/14/18 04:00 02/14/18 06:01 02/14/18 06:01 02/14/18 06:01 02/14/18 06:01 Intake and Output: 02/13/18 02/14/18 18:59 06:59 Intake Total 1578.0 1299.2 Output Total 1750 1245 Balance -172.0 54.2 - Medications Medications: Current Medications Acetaminophen (Tylenol 650mg/20.3ml Solution Ud) 650 mg NG Q6 PRN PRN Reason: GIVE FOR TEMP. 100*F OR ABOVE Last Admin: 02/05/18 20:48 Dose: 650 mg Acetylcysteine (Acetylcysteine 20%) 4 ml INH RQ12 [facility] Last Admin: 02/13/18 19:25 Dose: 4 ml Albuterol/Ipratropium (Duoneb 3 Mg/0.5 Mg (3 Ml) Ud) 3 ml INH RQ6 [facility] Last Admin: 02/14/18 01:42 Dose: 3 ml Apixaban (Eliquis) 10 mg PO BID [facility] Stop: 02/16/18 18:01 Last Admin: 02/13/18 10:04 Dose: 10 mg Aspirin (Aspirin Chewable) 81 mg PO DAILY [facility] Last Admin: 02/13/18 10:04 Dose: 81 mg Carvedilol (Coreg) 12.5 mg PO BID [facility] Last Admin: 02/13/18 18:09 Dose: 12.5 mg Hydralazine HCl (Apresoline) 100 mg PO Q8 [facility] Last Admin: 02/14/18 06:05 Dose: 100 mg Levetiracetam 500 mg/ Dextrose 55 mls @ 420 mls/hr IVPB Q12H [facility] Last Admin: 02/13/18 22:25 Dose: 420 mls/hr Vancomycin HCl 1 gm/ Dextrose 250 mls @ 166.7 mls/hr IVPB Q48H [facility] PRN Reason: Protocol Last Admin: 02/12/18 19:30 Dose: 166.7 mls/hr Acyclovir 750 mg/ Dextrose 250 mls @ 100 mls/hr IV Q12H [facility] PRN Reason: Protocol Last Admin: 02/13/18 19:55 Dose: 100 mls/hr Argatroban 250 mg/ Dextrose 252.5 mls @ 11.7 mls/hr IV .[id number] [facility]; 2 MCG/KG/ MIN PRN Reason: Protocol Last Admin: 02/13/18 14:21 Dose: 11.7 mls/hr Cefepime HCl (Maxipime Iv 2 Gm Premix) 2 gm in 100 mls @ 200 mls/hr IVPB Q12H [facility] PRN Reason: Protocol Stop: 02/19/18 07:01 Last Admin: 02/14/18 06:05 Dose: 200 mls/hr Insulin Aspart (Novolog) 0 unit SC Q6 [facility] PRN Reason: Protocol Last Admin: 02/14/18 06:15 Dose: 6 unit Insulin Glargine (Lantus) 20 unit SC Q12H [facility] Last Admin: 02/13/18 19:55 Dose: 20 u Lorazepam (Ativan) 1 mg IVP Q4H [facility] PRN Reason: Anxiety Last Admin: 02/14/18 03:45 Dose: 1 mg Pantoprazole Sodium (Protonix Inj) 40 mg IVP DAILY [facility] Last Admin: 02/13/18 12:04 Dose: 40 mg Tamsulosin HCl (Flomax) 0.4 mg PO DAILY [facility] Last Admin: 02/13/18 10:04 Dose: 0.4 mg - Labs Labs: 02/13/18 05:47 02/13/18 05:47 PT 12.4 SECONDS (9.7-12.2) H 02/02/18 06:19 INR 1.1 02/02/18 06:19 APTT 58 SECONDS (21-34) H 02/13/18 22:31 - Constitutional Appears: Well, No Acute Distress - Head Exam Head Exam: NORMAL INSPECTION - Eye Exam Pupil Exam: PERRL - Neurological Exam Neurological Exam: Awake Neuro motor strength exam: Left Upper Extremity: 4, Right Upper Extremity: 4, Left Lower Extremity: 3, Right Lower Extremity: 3 Additional comments: GCS- 4T, but moves all extremities. Assessment and Plan (1) Status epilepticus Assessment & Plan: Case discussed with Dr. Perez, continue all current medical regimen. Recommend PT eval and treat for prevention of deconditioning. Treat any underlying electrolyte abnormalities. Recommend MRI of the brain to evaluate weakness of the left lower extremity if possible. Status: Acute
[2018-02-14 06:58] LABS: BASO % 0.4 % (0.0-2.0); EOS # 0.2 K/uL (0.0-0.7); EOS % 4.7 % (0.0-4.0); HEMOGLOBIN 10.4 g/dL (12.0-18.0); LYMPH # 1.1 K/uL (1.0-4.3); LYMPH % 26.7 % (20.0-40.0); MEAN CELL VOLUME 93.5 fL (80.0-94.0); MEAN CORPUSCULAR HEMOGLOBIN 32.4 pg (27.0-31.0); MEAN CORPUSCULAR HGB CONC 34.7 g/dL (33.0-37.0); MEAN PLATELET VOLUME 11.8 fL (7.2-11.7); MONO # 0.4 K/uL (0.0-0.8); MONO % 8.9 % (0.0-10.0); NEUT # 2.5 K/uL (1.8-7.0); NEUT % 59.3 % (50.0-75.0); NRBC % 0.2 % (0.0-2.0); RBC 3.19 Mil/uL (4.40-5.90); WHITE BLOOD COUNT 4.2 K/uL (4.8-10.8)
[2018-02-14 07:00] LABS: INR 1.7
[2018-02-14 07:11] LABS: ALB/GLOB RATIO 0.9 (1.0-2.1); ALBUMIN 2.5 g/dL (3.5-5.0); ALT/SGPT 29 U/L (21-72); AST/SGOT 23 U/L (17-59); BLOOD UREA NITROGEN 18 mg/dL (9-20); CALCIUM 8.2 mg/dl (8.6-10.4); GFR AFRICAN-AMERICAN > 60; GFR NON-AFRICAN AMERICAN > 60
[2018-02-14] MEDS: Acetylcysteine 20% Inhal Soln (4ml) INH SCH ×2 (07:45→20:23)
--- NOTE | 2018-02-14 07:46 | RAD ---
Chest x-ray single frontal view History: Ventilator. Comparison: 02/13/2018 Findings: Lines and tubes in stable position. Small left pleural effusion. Moderate venous congestion. Right hilar prominence. Left basilar airspace opacity. Status post median sternotomy and CABG. Cardiomegaly. Degenerative changes in the spine and shoulders. Biapical pleural thickening with upper lobe granulomatous changes. Impression: Lines and tubes in stable position. Small left pleural effusion. Moderate venous congestion. Right hilar prominence. Left basilar airspace opacity. Status post median sternotomy and CABG. Cardiomegaly. Degenerative changes in the spine and shoulders. Biapical pleural thickening with upper lobe granulomatous changes.
[2018-02-14] MEDS: DEXTROSE 5% IV SCH ×2 (08:00→21:00)
[2018-02-14] MEDS: WATER IV SCH ×2 (08:00→21:00)
[2018-02-14] MEDS: ACYCLOVIR IV SCH ×2 (08:00→21:00)
--- NOTE | 2018-02-14 08:05 | CP.CCUPN ---
<Amaya Castañeda - Last Filed: 02/14/18 09:52> CCU Subjective - Physician Review Subjective (Free Text): 02/14/18 08:04 Patient seen and examined at bedside. Per nursing, patient was agitated last night, was given Ativan. Lethargic this morning. But opens his eyes to verbal stimuli, moves extremities. . Will place on CPAP trial. CCU Objective - Vital Signs / Intake & Output Vital Signs (Last 4 hours): Vital Signs Pulse Resp BP Pulse Ox 02/14/18 07:01 70 24 146/68 99 02/14/18 06:01 67 19 117/55 L 99 02/14/18 05:01 63 21 141/59 L 99 Intake and Output (Last 8hrs): Intake & Output 02/13/18 02/14/18 02/14/18 22:59 06:59 14:59 Intake Total 1252.8 692.8 61.6 Output Total 1400 875 Balance -147.2 -182.2 61.6 Weight 96.417 kg Intake: Intake, IV Amount 492.8 192.8 11.6 Left Distal Port Internal 92.8 92.8 11.6 Jugular Left Proximal Port 400 100 Internal Jugular Oral 60 100 Tube Feeding 400 400 50 Other 300 Output: Urine 1400 875 2-way Urethral 1400 875 Other: # Bowel Movements 1 - Physical Exam Head: Positive for: Atraumatic, Normocephalic Pupils: Positive for: PERRL Conjunctiva: Positive for: Normal Mouth: Positive for: Moist Mucous Membranes, Other (ETT) Neck: Positive for: Normal Range of Motion Respiratory/Chest: Positive for: Clear to Auscultation, Good Air Exchange. Negative for: Respiratory Distress Cardiovascular: Positive for: Regular Rate and Rhythm, Normal S1, S2. Negative for: Tachycardic Abdomen: Positive for: Normal Bowel Sounds, Other (Obese). Negative for: Tenderness, Distention, Peritoneal Signs Lower Extremity: Positive for: Normal Inspection Neurological: Positive for: Other (Moves all extremities) Skin: Positive for: Warm, Dry Psychiatric: Positive for: Alert - Medications Active Medications: Active Medications Generic Name Dose Route Start Last Admin Trade Name Freq PRN Reason Stop Dose Admin Acetaminophen 650 mg 01/19/18 00:50 02/05/18 20:48 Tylenol 650mg/20.3ml Solution Ud NG 650 mg Q6 PRN Administration GIVE FOR TEMP. 100*F OR ABOVE Acetylcysteine 4 ml 02/12/18 20:00 02/14/18 07:45 Acetylcysteine 20% INH 4 ml RQ12 SHINE Administration Albuterol/Ipratropium 3 ml 01/26/18 20:00 02/14/18 07:43 Duoneb 3 Mg/0.5 Mg (3 Ml) Ud INH 3 ml RQ6 SHINE Administration Apixaban 10 mg 02/09/18 18:00 02/13/18 10:04 Eliquis PO 02/16/18 18:01 10 mg BID SHINE Administration Aspirin 81 mg 01/17/18 10:00 02/13/18 10:04 Aspirin Chewable PO 81 mg DAILY SHINE Administration Carvedilol 12.5 mg 01/22/18 09:07 02/13/18 18:09 Coreg PO 12.5 mg BID SHINE Administration Hydralazine HCl 100 mg 02/03/18 00:29 02/14/18 06:05 Apresoline PO 100 mg Q8 SHINE Administration Levetiracetam 500 mg/ Dextrose 55 mls @ 420 mls/hr 02/08/18 22:00 02/13/18 22 :25 IVPB 420 mls/hr Q12H SHINE Administration Vancomycin HCl 1 gm/ Dextrose 250 mls @ 166.7 mls/hr 02/08/18 19:30 02/12/18 19:30 IVPB 166.7 mls/hr Q48H SHINE Administration Protocol Acyclovir 750 mg/ Dextrose 250 mls @ 100 mls/hr 02/08/18 20:00 02/13/18 19:55 IV 100 mls/hr Q12H SHINE Administration Protocol Argatroban 250 mg/ Dextrose 252.5 mls @ 11.7 mls/hr 02/13/18 14:30 02/13/18 14:21 IV 11.7 mls/hr .[id number] SHINE Administration Protocol 2 MCG/KG/MIN Cefepime HCl 2 gm in 100 mls @ 200 mls/hr 02/14/18 07:00 02/14/18 06:05 Maxipime Iv 2 Gm Premix IVPB 02/19/18 07:01 200 mls/hr Q12H SHINE Administration Protocol Insulin Aspart 0 unit 02/09/18 18:56 02/14/18 06:15 Novolog SC 6 unit Q6 SHINE Administration Protocol Insulin Glargine 20 unit 02/09/18 08:00 02/13/18 19:55 Lantus SC 20 u Q12H SHINE Administration Lorazepam 1 mg 02/14/18 03:02 02/14/18 03:45 Ativan IVP 1 mg Q4H PRN Administration Anxiety Pantoprazole Sodium 40 mg 02/13/18 11:30 02/13/18 12:04 Protonix Inj IVP 40 mg DAILY SHINE Administration Tamsulosin HCl 0.4 mg 01/30/18 20:00 02/13/18 10:04 Flomax PO 0.4 mg DAILY SHINE Administration - Patient Studies Lab Studies: Microbiology Studies 02/08/18 20:58 Blood Culture - Final Blood NO GROWTH AFTER 5 DAYS Gram Stain - Final TEST NOT PERFORMED 02/08/18 20:58 Blood Culture - Final Blood NO GROWTH AFTER 5 DAYS Gram Stain - Final TEST NOT PERFORMED Lab Studies 02/14/18 02/14/18 02/14/18 Range/Units 06:49 06:49 06:49 WBC 4.2 L (4.8-10.8) K/uL RBC 3.19 L (4.40-5.90) Mil/uL Hgb 10.4 L (12.0-18.0) g/dL Hct 29.9 L (35.0-51.0) % MCV 93.5 (80.0-94.0) fL MCH 32.4 H (27.0-31.0) pg MCHC 34.7 (33.0-37.0) g/dL RDW 13.0 (11.5-14.5) % Plt Count 91 L (130-400) K/uL MPV 11.8 H (7.2-11.7) fL Neut % (Auto) 59.3 (50.0-75.0) % Lymph % (Auto) 26.7 (20.0-40.0) % [place] % (Auto) 8.9 (0.0-10.0) % Eos % (Auto) 4.7 H (0.0-4.0) % Baso % (Auto) 0.4 (0.0-2.0) % Neut # (Auto) 2.5 (1.8-7.0) K/uL Lymph # (Auto) 1.1 (1.0-4.3) K/uL [place] # (Auto) 0.4 (0.0-0.8) K/uL Eos # (Auto) 0.2 (0.0-0.7) K/uL Baso # (Auto) 0.0 (0.0-0.2) K/uL PT 20.0 H (9.7-12.2) SECONDS INR 1.7 APTT 54 H (21-34) SECONDS Puncture Site pCO2 (35-45) mm/Hg pO2 (80-100) mm/Hg HCO3 (21-28) mmol/L ABG pH (7.35-7.45) ABG Total CO2 (22-28) mmol/L ABG O2 Saturation (95-98) % ABG Base Excess (-2.0-3.0) mmol/L ABG Hemoglobin (11.7-17.4) g/dL ABG Carboxyhemoglobin (0.5-1.5) % POC ABG HHb (Measured) (0.0-5.0) % ABG Methemoglobin (0.0-3.0) % Jamey Test A-a O2 Difference mm/Hg Respiratory Index Hgb O2 Saturation (95.0-98.0) % Vent Mode Mechanical Rate FiO2 % Tidal Volume PEEP Sodium 137 (132-148) mmol/L Potassium 3.9 (3.6-5.2) mmol/L Chloride 100 (98-107) mmol/L Carbon Dioxide 30 (22-30) mmol/L Anion Gap 11 (10-20) BUN 18 (9-20) mg/dL Creatinine 0.9 (0.8-1.5) mg/dL Est GFR ( Amer) > 60 Est GFR (Non-Af Amer) > 60 POC Glucose (mg/dL) (65-110) mg/dL Random Glucose 264 H (75-110) mg/dL Calcium 8.2 L (8.6-10.4) mg/dl Phosphorus 3.1 (2.5-4.5) mg/dL Magnesium 2.1 (1.6-2.3) mg/dL Total Bilirubin 0.6 (0.2-1.3) mg/dL AST 23 (17-59) U/L ALT 29 (21-72) U/L Alkaline Phosphatase 86 (38-126) U/L Total Protein 5.3 L (6.3-8.3) g/dL Albumin 2.5 L (3.5-5.0) g/dL Globulin 2.8 (2.2-3.9) gm/dL Albumin/Globulin Ratio 0.9 L (1.0-2.1) Procalcitonin (0.19-0.49) NG/ML 02/14/18 02/14/18 02/13/18 Range/Units 06:12 05:36 23:49 WBC (4.8-10.8) K/uL RBC (4.40-5.90) Mil/uL Hgb (12.0-18.0) g/dL Hct (35.0-51.0) % MCV (80.0-94.0) fL MCH (27.0-31.0) pg MCHC (33.0-37.0) g/dL RDW (11.5-14.5) % Plt Count (130-400) K/uL MPV (7.2-11.7) fL Neut % (Auto) (50.0-75.0) % Lymph % (Auto) (20.0-40.0) % [place] % (Auto) (0.0-10.0) % Eos % (Auto) (0.0-4.0) % Baso % (Auto) (0.0-2.0) % Neut # (Auto) (1.8-7.0) K/uL Lymph # (Auto) (1.0-4.3) K/uL [place] # (Auto) (0.0-0.8) K/uL Eos # (Auto) (0.0-0.7) K/uL Baso # (Auto) (0.0-0.2) K/uL PT (9.7-12.2) SECONDS INR APTT (21-34) SECONDS Puncture Site Rb pCO2 42 (35-45) mm/Hg pO2 123 H (80-100) mm/Hg HCO3 31.1 H (21-28) mmol/L ABG pH 7.49 H (7.35-7.45) ABG Total CO2 33.3 H (22-28) mmol/L ABG O2 Saturation 99.4 H (95-98) % ABG Base Excess 7.9 H (-2.0-3.0) mmol/L ABG Hemoglobin 10.3 L (11.7-17.4) g/dL ABG Carboxyhemoglobin 1.6 H (0.5-1.5) % POC ABG HHb (Measured) 0.6 (0.0-5.0) % ABG Methemoglobin 0.8 (0.0-3.0) % Jamey Test Na A-a O2 Difference 181.0 mm/Hg Respiratory Index 1.5 Hgb O2 Saturation 97.0 (95.0-98.0) % Vent Mode Prvc Mechanical Rate 15 FiO2 50.0 % Tidal Volume 400 PEEP 5 Sodium (132-148) mmol/L Potassium (3.6-5.2) mmol/L Chloride (98-107) mmol/L Carbon Dioxide (22-30) mmol/L Anion Gap (10-20) BUN (9-20) mg/dL Creatinine (0.8-1.5) mg/dL Est GFR ( Amer) Est GFR (Non-Af Amer) POC Glucose (mg/dL) 266 H 239 H (65-110) mg/dL Random Glucose (75-110) mg/dL Calcium (8.6-10.4) mg/dl Phosphorus (2.5-4.5) mg/dL Magnesium (1.6-2.3) mg/dL Total Bilirubin (0.2-1.3) mg/dL AST (17-59) U/L ALT (21-72) U/L Alkaline Phosphatase (38-126) U/L Total Protein (6.3-8.3) g/dL Albumin (3.5-5.0) g/dL Globulin (2.2-3.9) gm/dL Albumin/Globulin Ratio (1.0-2.1) Procalcitonin (0.19-0.49) NG/ML 02/13/18 02/13/18 02/13/18 Range/Units 22:31 20:15 17:50 WBC (4.8-10.8) K/uL RBC (4.40-5.90) Mil/uL Hgb (12.0-18.0) g/dL Hct (35.0-51.0) % MCV (80.0-94.0) fL MCH (27.0-31.0) pg MCHC (33.0-37.0) g/dL RDW (11.5-14.5) % Plt Count (130-400) K/uL MPV (7.2-11.7) fL Neut % (Auto) (50.0-75.0) % Lymph % (Auto) (20.0-40.0) % [place] % (Auto) (0.0-10.0) % Eos % (Auto) (0.0-4.0) % Baso % (Auto) (0.0-2.0) % Neut # (Auto) (1.8-7.0) K/uL Lymph # (Auto) (1.0-4.3) K/uL [place] # (Auto) (0.0-0.8) K/uL Eos # (Auto) (0.0-0.7) K/uL Baso # (Auto) (0.0-0.2) K/uL PT (9.7-12.2) SECONDS INR APTT 58 H 62 H (21-34) SECONDS Puncture Site pCO2 (35-45) mm/Hg pO2 (80-100) mm/Hg HCO3 (21-28) mmol/L ABG pH (7.35-7.45) ABG Total CO2 (22-28) mmol/L ABG O2 Saturation (95-98) % ABG Base Excess (-2.0-3.0) mmol/L ABG Hemoglobin (11.7-17.4) g/dL ABG Carboxyhemoglobin (0.5-1.5) % POC ABG HHb (Measured) (0.0-5.0) % ABG Methemoglobin (0.0-3.0) % Jaemy Test A-a O2 Difference mm/Hg Respiratory Index Hgb O2 Saturation (95.0-98.0) % Vent Mode Mechanical Rate FiO2 % Tidal Volume PEEP Sodium (132-148) mmol/L Potassium (3.6-5.2) mmol/L Chloride (98-107) mmol/L Carbon Dioxide (22-30) mmol/L Anion Gap (10-20) BUN (9-20) mg/dL Creatinine (0.8-1.5) mg/dL Est GFR ( Amer) Est GFR (Non-Af Amer) POC Glucose (mg/dL) 217 H (65-110) mg/dL Random Glucose (75-110) mg/dL Calcium (8.6-10.4) mg/dl Phosphorus (2.5-4.5) mg/dL Magnesium (1.6-2.3) mg/dL Total Bilirubin (0.2-1.3) mg/dL AST (17-59) U/L ALT (21-72) U/L Alkaline Phosphatase (38-126) U/L Total Protein (6.3-8.3) g/dL Albumin (3.5-5.0) g/dL Globulin (2.2-3.9) gm/dL Albumin/Globulin Ratio (1.0-2.1) Procalcitonin (0.19-0.49) NG/ML 02/13/18 02/13/18 Range/Units 11:40 10:54 WBC (4.8-10.8) K/uL RBC (4.40-5.90) Mil/uL Hgb (12.0-18.0) g/dL Hct (35.0-51.0) % MCV (80.0-94.0) fL MCH (27.0-31.0) pg MCHC (33.0-37.0) g/dL RDW (11.5-14.5) % Plt Count (130-400) K/uL MPV (7.2-11.7) fL Neut % (Auto) (50.0-75.0) % Lymph % (Auto) (20.0-40.0) % [place] % (Auto) (0.0-10.0) % Eos % (Auto) (0.0-4.0) % Baso % (Auto) (0.0-2.0) % Neut # (Auto) (1.8-7.0) K/uL Lymph # (Auto) (1.0-4.3) K/uL [place] # (Auto) (0.0-0.8) K/uL Eos # (Auto) (0.0-0.7) K/uL Baso # (Auto) (0.0-0.2) K/uL PT (9.7-12.2) SECONDS INR APTT (21-34) SECONDS Puncture Site pCO2 (35-45) mm/Hg pO2 (80-100) mm/Hg HCO3 (21-28) mmol/L ABG pH (7.35-7.45) ABG Total CO2 (22-28) mmol/L ABG O2 Saturation (95-98) % ABG Base Excess (-2.0-3.0) mmol/L ABG Hemoglobin (11.7-17.4) g/dL ABG Carboxyhemoglobin (0.5-1.5) % POC ABG HHb (Measured) (0.0-5.0) % ABG Methemoglobin (0.0-3.0) % Jamey Test A-a O2 Difference mm/Hg Respiratory Index Hgb O2 Saturation (95.0-98.0) % Vent Mode Mechanical Rate FiO2 % Tidal Volume PEEP Sodium (132-148) mmol/L Potassium (3.6-5.2) mmol/L Chloride (98-107) mmol/L Carbon Dioxide (22-30) mmol/L Anion Gap (10-20) BUN (9-20) mg/dL Creatinine (0.8-1.5) mg/dL Est GFR ( Amer) Est GFR (Non-Af Amer) POC Glucose (mg/dL) 227 H (65-110) mg/dL Random Glucose (75-110) mg/dL Calcium (8.6-10.4) mg/dl Phosphorus (2.5-4.5) mg/dL Magnesium (1.6-2.3) mg/dL Total Bilirubin (0.2-1.3) mg/dL AST (17-59) U/L ALT (21-72) U/L Alkaline Phosphatase (38-126) U/L Total Protein (6.3-8.3) g/dL Albumin (3.5-5.0) g/dL Globulin (2.2-3.9) gm/dL Albumin/Globulin Ratio (1.0-2.1) Procalcitonin < 0.05 L (0.19-0.49) NG/ML Laboratory Results - last 24 hr 03/27/18 03/27/18 03/27/18 10:54 11:40 17:50 WBC RBC Hgb Hct MCV MCH MCHC RDW Plt Count MPV Neut % (Auto) Lymph % (Auto) [place] % (Auto) Eos % (Auto) Baso % (Auto) Neut # (Auto) Lymph # (Auto) [place] # (Auto) Eos # (Auto) Baso # (Auto) PT INR APTT Puncture Site pCO2 pO2 HCO3 ABG pH ABG Total CO2 ABG O2 Saturation ABG Base Excess ABG Hemoglobin ABG Carboxyhemoglobin POC ABG HHb (Measured) ABG Methemoglobin Jamey Test A-a O2 Difference Respiratory Index Hgb O2 Saturation Vent Mode Mechanical Rate FiO2 Tidal Volume PEEP Sodium Potassium Chloride Carbon Dioxide Anion Gap BUN Creatinine Est GFR ( Amer) Est GFR (Non-Af Amer) POC Glucose (mg/dL) 227 H 217 H Random Glucose Calcium Phosphorus Magnesium Total Bilirubin AST ALT Alkaline Phosphatase Total Protein Albumin Globulin Albumin/Globulin Ratio Procalcitonin < 0.05 L 02/13/18 02/13/18 02/13/18 20:15 22:31 23:49 WBC RBC Hgb Hct MCV MCH MCHC RDW Plt Count MPV Neut % (Auto) Lymph % (Auto) [place] % (Auto) Eos % (Auto) Baso % (Auto) Neut # (Auto) Lymph # (Auto) [place] # (Auto) Eos # (Auto) Baso # (Auto) PT INR APTT 62 H 58 H Puncture Site pCO2 pO2 HCO3 ABG pH ABG Total CO2 ABG O2 Saturation ABG Base Excess ABG Hemoglobin ABG Carboxyhemoglobin POC ABG HHb (Measured) ABG Methemoglobin Jamey Test A-a O2 Difference Respiratory Index Hgb O2 Saturation Vent Mode Mechanical Rate FiO2 Tidal Volume PEEP Sodium Potassium Chloride Carbon Dioxide Anion Gap BUN Creatinine Est GFR ( Amer) Est GFR (Non-Af Amer) POC Glucose (mg/dL) 239 H Random Glucose Calcium Phosphorus Magnesium Total Bilirubin AST ALT Alkaline Phosphatase Total Protein Albumin Globulin Albumin/Globulin Ratio Procalcitonin 02/14/18 02/14/18 02/14/18 05:36 06:12 06:49 WBC 4.2 L RBC 3.19 L Hgb 10.4 L Hct 29.9 L MCV 93.5 MCH 32.4 H MCHC 34.7 RDW 13.0 Plt Count 91 L MPV 11.8 H Neut % (Auto) 59.3 Lymph % (Auto) 26.7 [place] % (Auto) 8.9 Eos % (Auto) 4.7 H Baso % (Auto) 0.4 Neut # (Auto) 2.5 Lymph # (Auto) 1.1 [place] # (Auto) 0.4 Eos # (Auto) 0.2 Baso # (Auto) 0.0 PT INR APTT Puncture Site Rb pCO2 42 pO2 123 H HCO3 31.1 H ABG pH 7.49 H ABG Total CO2 33.3 H ABG O2 Saturation 99.4 H ABG Base Excess 7.9 H ABG Hemoglobin 10.3 L ABG Carboxyhemoglobin 1.6 H POC ABG HHb (Measured) 0.6 ABG Methemoglobin 0.8 Jamey Test Na A-a O2 Difference 181.0 Respiratory Index 1.5 Hgb O2 Saturation 97.0 Vent Mode Prvc Mechanical Rate 15 FiO2 50.0 Tidal Volume 400 PEEP 5 Sodium Potassium Chloride Carbon Dioxide Anion Gap BUN Creatinine Est GFR ( Amer) Est GFR (Non-Af Amer) POC Glucose (mg/dL) 266 H Random Glucose Calcium Phosphorus Magnesium Total Bilirubin AST ALT Alkaline Phosphatase Total Protein Albumin Globulin Albumin/Globulin Ratio Procalcitonin 02/14/18 02/14/18 06:49 06:49 WBC RBC Hgb Hct MCV MCH MCHC RDW Plt Count MPV Neut % (Auto) Lymph % (Auto) [place] % (Auto) Eos % (Auto) Baso % (Auto) Neut # (Auto) Lymph # (Auto) [place] # (Auto) Eos # (Auto) Baso # (Auto) PT 20.0 H INR 1.7 APTT 54 H Puncture Site pCO2 pO2 HCO3 ABG pH ABG Total CO2 ABG O2 Saturation ABG Base Excess ABG Hemoglobin ABG Carboxyhemoglobin POC ABG HHb (Measured) ABG Methemoglobin Jamey Test A-a O2 Difference Respiratory Index Hgb O2 Saturation Vent Mode Mechanical Rate FiO2 Tidal Volume PEEP Sodium 137 Potassium 3.9 Chloride 100 Carbon Dioxide 30 Anion Gap 11 BUN 18 Creatinine 0.9 Est GFR ( Amer) > 60 Est GFR (Non-Af Amer) > 60 POC Glucose (mg/dL) Random Glucose 264 H Calcium 8.2 L Phosphorus 3.1 Magnesium 2.1 Total Bilirubin 0.6 AST 23 ALT 29 Alkaline Phosphatase 86 Total Protein 5.3 L Albumin 2.5 L Globulin 2.8 Albumin/Globulin Ratio 0.9 L Procalcitonin Fingerstick Blood Sugar Results: 266 Assessment/Plan - Assessment and Plan (Free Text) Assessment: 67 year old male with a past medical history of type 2 dm, hypertension, cva, s/ p cabg (8yrs ago), hyperlipidemia who was admitted to the ICU after being found unresponsive by daughter. Patient subsequently had a witnessed seizure while in the hospital and was transferred to the ICU for further monitoring. While in the ICU patient was extubated and downgraded to the floors. While on the floors , patient desat low 80s, reintubated for acute respiratory failure. Brought back to the ICU. -Patient is awake and alert, lethargic likely 2/2 sedation -Will place on CPAP trial this morning -CXR 02/14: small left pleural effusion, moderate venous congestion, right hilar prominence, L basilar airspace opacity -Continue Keppra 500mg IV Q12H -Continue antibiotics: Cefepime 2gm Q12H, Vancomycin 1gm Q48H, Acyclovir 750mg IV Q12H -Patient with Saddle PE, was on heparin drip but discontinued due to thrombocytopenia -Eliquis 10mg PO BID (to continue for one week, then 5mg PO BID) - on hold at this time -HIT positive -Patient started on Argotroban -General surgery planning for gastrostomy tube or Monday -Protonix 40mg IVP daily -Continue PT/OT -Continue to monitor in the ICU -Plan discussed with Dr Mims <Ford Mims - Last Filed: 02/14/18 17:24> CCU Objective - Vital Signs / Intake & Output Vital Signs (Last 4 hours): Vital Signs Pulse Resp BP Pulse Ox 02/14/18 17:16 141/66 02/14/18 14:00 73 12 122/70 100 Intake and Output (Last 8hrs): Intake & Output 02/14/18 02/14/18 02/14/18 06:59 14:59 22:59 Intake Total 692.8 1092.8 Output Total 875 1030 Balance -182.2 62.8 Weight 212 lb 9 oz Intake: Intake, IV Amount 192.8 692.8 Left Distal Port Internal 92.8 92.8 Jugular Left Proximal Port 100 600 Internal Jugular Oral 100 Tube Feeding 400 400 Output: Urine 875 1030 2-way Urethral 875 1030 Other: # Bowel Movements 1 1 - Medications Active Medications: Active Medications Generic Name Dose Route Start Last Admin Trade Name Freq PRN Reason Stop Dose Admin Acetaminophen 650 mg 01/19/18 00:50 02/05/18 20:48 Tylenol 650mg/20.3ml Solution Ud NG 650 mg Q6 PRN Administration GIVE FOR TEMP. 100*F OR ABOVE Acetylcysteine 4 ml 02/12/18 20:00 02/14/18 07:45 Acetylcysteine 20% INH 4 ml RQ12 SHINE Administration Albuterol/Ipratropium 3 ml 01/26/18 20:00 02/14/18 13:52 Duoneb 3 Mg/0.5 Mg (3 Ml) Ud INH 3 ml RQ6 SHINE Administration Apixaban 10 mg 02/09/18 18:00 02/13/18 10:04 Eliquis PO 02/16/18 18:01 10 mg BID SHINE Administration Aspirin 81 mg 01/17/18 10:00 02/14/18 09:06 Aspirin Chewable PO 81 mg DAILY SHINE Administration Carvedilol 12.5 mg 01/22/18 09:07 02/14/18 17:16 Coreg PO 12.5 mg BID SHINE Administration Hydralazine HCl 100 mg 02/03/18 00:29 02/14/18 14:30 Apresoline PO Not Given Q8 SHINE Levetiracetam 500 mg/ Dextrose 55 mls @ 420 mls/hr 02/08/18 22:00 02/14/18 10 :00 IVPB 420 mls/hr Q12H SHINE Administration Vancomycin HCl 1 gm/ Dextrose 250 mls @ 166.7 mls/hr 02/08/18 19:30 02/12/18 19:30 IVPB 166.7 mls/hr Q48H SHINE Administration Protocol Acyclovir 750 mg/ Dextrose 250 mls @ 100 mls/hr 02/08/18 20:00 02/14/18 08:00 IV 100 mls/hr Q12H SHINE Administration Protocol Argatroban 250 mg/ Dextrose 252.5 mls @ 11.7 mls/hr 02/13/18 14:30 02/14/18 11:05 IV 11.7 mls/hr .[id number] SHINE Administration Protocol 2 MCG/KG/MIN Cefepime HCl 2 gm in 100 mls @ 200 mls/hr 02/14/18 07:00 02/14/18 06:05 Maxipime Iv 2 Gm Premix IVPB 02/19/18 07:01 200 mls/hr Q12H SHINE Administration Protocol Insulin Aspart 0 unit 02/09/18 18:56 02/14/18 12:15 Novolog SC 6 unit Q6 SHINE Administration Protocol Insulin Glargine 20 unit 02/09/18 08:00 02/14/18 08:27 Lantus SC 20 u Q12H SHINE Administration Lorazepam 2 mg 02/14/18 14:07 02/14/18 14:38 Ativan IVP 2 mg Q3H PRN Administration Anxiety Pantoprazole Sodium 40 mg 02/13/18 11:30 02/14/18 09:08 Protonix Inj IVP 40 mg DAILY SHINE Administration Tamsulosin HCl 0.4 mg 01/30/18 20:00 02/14/18 09:08 Flomax PO 0.4 mg DAILY SHINE Administration - Patient Studies Lab Studies: Microbiology Studies 02/08/18 20:58 Blood Culture - Final Blood NO GROWTH AFTER 5 DAYS Gram Stain - Final TEST NOT PERFORMED 02/08/18 20:58 Blood Culture - Final Blood NO GROWTH AFTER 5 DAYS Gram Stain - Final TEST NOT PERFORMED Lab Studies 02/14/18 02/14/18 02/14/18 Range/Units 11:20 06:49 06:49 WBC (4.8-10.8) K/uL RBC (4.40-5.90) Mil/uL Hgb (12.0-18.0) g/dL Hct (35.0-51.0) % MCV (80.0-94.0) fL MCH (27.0-31.0) pg MCHC (33.0-37.0) g/dL RDW (11.5-14.5) % Plt Count (130-400) K/uL MPV (7.2-11.7) fL Neut % (Auto) (50.0-75.0) % Lymph % (Auto) (20.0-40.0) % [place] % (Auto) (0.0-10.0) % Eos % (Auto) (0.0-4.0) % Baso % (Auto) (0.0-2.0) % Neut # (Auto) (1.8-7.0) K/uL Lymph # (Auto) (1.0-4.3) K/uL [place] # (Auto) (0.0-0.8) K/uL Eos # (Auto) (0.0-0.7) K/uL Baso # (Auto) (0.0-0.2) K/uL PT 20.0 H (9.7-12.2) SECONDS INR 1.7 APTT 54 H (21-34) SECONDS Puncture Site pCO2 (35-45) mm/Hg pO2 (80-100) mm/Hg HCO3 (21-28) mmol/L ABG pH (7.35-7.45) ABG Total CO2 (22-28) mmol/L ABG O2 Saturation (95-98) % ABG Base Excess (-2.0-3.0) mmol/L ABG Hemoglobin (11.7-17.4) g/dL ABG Carboxyhemoglobin (0.5-1.5) % POC ABG HHb (Measured) (0.0-5.0) % ABG Methemoglobin (0.0-3.0) % Jamey Test A-a O2 Difference mm/Hg Respiratory Index Hgb O2 Saturation (95.0-98.0) % Vent Mode Mechanical Rate FiO2 % Tidal Volume PEEP Sodium 137 (132-148) mmol/L Potassium 3.9 (3.6-5.2) mmol/L Chloride 100 (98-107) mmol/L Carbon Dioxide 30 (22-30) mmol/L Anion Gap 11 (10-20) BUN 18 (9-20) mg/dL Creatinine 0.9 (0.8-1.5) mg/dL Est GFR ( Amer) > 60 Est GFR (Non-Af Amer) > 60 POC Glucose (mg/dL) 266 H (65-110) mg/dL Random Glucose 264 H (75-110) mg/dL Calcium 8.2 L (8.6-10.4) mg/dl Phosphorus 3.1 (2.5-4.5) mg/dL Magnesium 2.1 (1.6-2.3) mg/dL Total Bilirubin 0.6 (0.2-1.3) mg/dL AST 23 (17-59) U/L ALT 29 (21-72) U/L Alkaline Phosphatase 86 (38-126) U/L Total Protein 5.3 L (6.3-8.3) g/dL Albumin 2.5 L (3.5-5.0) g/dL Globulin 2.8 (2.2-3.9) gm/dL Albumin/Globulin Ratio 0.9 L (1.0-2.1) 02/14/18 02/14/18 02/14/18 Range/Units 06:49 06:12 05:36 WBC 4.2 L (4.8-10.8) K/uL RBC 3.19 L (4.40-5.90) Mil/uL Hgb 10.4 L (12.0-18.0) g/dL Hct 29.9 L (35.0-51.0) % MCV 93.5 (80.0-94.0) fL MCH 32.4 H (27.0-31.0) pg MCHC 34.7 (33.0-37.0) g/dL RDW 13.0 (11.5-14.5) % Plt Count 91 L (130-400) K/uL MPV 11.8 H (7.2-11.7) fL Neut % (Auto) 59.3 (50.0-75.0) % Lymph % (Auto) 26.7 (20.0-40.0) % [place] % (Auto) 8.9 (0.0-10.0) % Eos % (Auto) 4.7 H (0.0-4.0) % Baso % (Auto) 0.4 (0.0-2.0) % Neut # (Auto) 2.5 (1.8-7.0) K/uL Lymph # (Auto) 1.1 (1.0-4.3) K/uL [place] # (Auto) 0.4 (0.0-0.8) K/uL Eos # (Auto) 0.2 (0.0-0.7) K/uL Baso # (Auto) 0.0 (0.0-0.2) K/uL PT (9.7-12.2) SECONDS INR APTT (21-34) SECONDS Puncture Site Rb pCO2 42 (35-45) mm/Hg pO2 123 H (80-100) mm/Hg HCO3 31.1 H (21-28) mmol/L ABG pH 7.49 H (7.35-7.45) ABG Total CO2 33.3 H (22-28) mmol/L ABG O2 Saturation 99.4 H (95-98) % ABG Base Excess 7.9 H (-2.0-3.0) mmol/L ABG Hemoglobin 10.3 L (11.7-17.4) g/dL ABG Carboxyhemoglobin 1.6 H (0.5-1.5) % POC ABG HHb (Measured) 0.6 (0.0-5.0) % ABG Methemoglobin 0.8 (0.0-3.0) % Jamey Test Na A-a O2 Difference 181.0 mm/Hg Respiratory Index 1.5 Hgb O2 Saturation 97.0 (95.0-98.0) % Vent Mode Prvc Mechanical Rate 15 FiO2 50.0 % Tidal Volume 400 PEEP 5 Sodium (132-148) mmol/L Potassium (3.6-5.2) mmol/L Chloride (98-107) mmol/L Carbon Dioxide (22-30) mmol/L Anion Gap (10-20) BUN (9-20) mg/dL Creatinine (0.8-1.5) mg/dL Est GFR ( Amer) Est GFR (Non-Af Amer) POC Glucose (mg/dL) 266 H (65-110) mg/dL Random Glucose (75-110) mg/dL Calcium (8.6-10.4) mg/dl Phosphorus (2.5-4.5) mg/dL Magnesium (1.6-2.3) mg/dL Total Bilirubin (0.2-1.3) mg/dL AST (17-59) U/L ALT (21-72) U/L Alkaline Phosphatase (38-126) U/L Total Protein (6.3-8.3) g/dL Albumin (3.5-5.0) g/dL Globulin (2.2-3.9) gm/dL Albumin/Globulin Ratio (1.0-2.1) 02/13/18 02/13/18 02/13/18 Range/Units 23:49 22:31 20:15 WBC (4.8-10.8) K/uL RBC (4.40-5.90) Mil/uL Hgb (12.0-18.0) g/dL Hct (35.0-51.0) % MCV (80.0-94.0) fL MCH (27.0-31.0) pg MCHC (33.0-37.0) g/dL RDW (11.5-14.5) % Plt Count (130-400) K/uL MPV (7.2-11.7) fL Neut % (Auto) (50.0-75.0) % Lymph % (Auto) (20.0-40.0) % [place] % (Auto) (0.0-10.0) % Eos % (Auto) (0.0-4.0) % Baso % (Auto) (0.0-2.0) % Neut # (Auto) (1.8-7.0) K/uL Lymph # (Auto) (1.0-4.3) K/uL [place] # (Auto) (0.0-0.8) K/uL Eos # (Auto) (0.0-0.7) K/uL Baso # (Auto) (0.0-0.2) K/uL PT (9.7-12.2) SECONDS INR APTT 58 H 62 H (21-34) SECONDS Puncture Site pCO2 (35-45) mm/Hg pO2 (80-100) mm/Hg HCO3 (21-28) mmol/L ABG pH (7.35-7.45) ABG Total CO2 (22-28) mmol/L ABG O2 Saturation (95-98) % ABG Base Excess (-2.0-3.0) mmol/L ABG Hemoglobin (11.7-17.4) g/dL ABG Carboxyhemoglobin (0.5-1.5) % POC ABG HHb (Measured) (0.0-5.0) % ABG Methemoglobin (0.0-3.0) % Jamey Test A-a O2 Difference mm/Hg Respiratory Index Hgb O2 Saturation (95.0-98.0) % Vent Mode Mechanical Rate FiO2 % Tidal Volume PEEP Sodium (132-148) mmol/L Potassium (3.6-5.2) mmol/L Chloride (98-107) mmol/L Carbon Dioxide (22-30) mmol/L Anion Gap (10-20) BUN (9-20) mg/dL Creatinine (0.8-1.5) mg/dL Est GFR ( Amer) Est GFR (Non-Af Amer) POC Glucose (mg/dL) 239 H (65-110) mg/dL Random Glucose (75-110) mg/dL Calcium (8.6-10.4) mg/dl Phosphorus (2.5-4.5) mg/dL Magnesium (1.6-2.3) mg/dL Total Bilirubin (0.2-1.3) mg/dL AST (17-59) U/L ALT (21-72) U/L Alkaline Phosphatase (38-126) U/L Total Protein (6.3-8.3) g/dL Albumin (3.5-5.0) g/dL Globulin (2.2-3.9) gm/dL Albumin/Globulin Ratio (1.0-2.1) 02/13/18 Range/Units 17:50 WBC (4.8-10.8) K/uL RBC (4.40-5.90) Mil/uL Hgb (12.0-18.0) g/dL Hct (35.0-51.0) % MCV (80.0-94.0) fL MCH (27.0-31.0) pg MCHC (33.0-37.0) g/dL RDW (11.5-14.5) % Plt Count (130-400) K/uL MPV (7.2-11.7) fL Neut % (Auto) (50.0-75.0) % Lymph % (Auto) (20.0-40.0) % [place] % (Auto) (0.0-10.0) % Eos % (Auto) (0.0-4.0) % Baso % (Auto) (0.0-2.0) % Neut # (Auto) (1.8-7.0) K/uL Lymph # (Auto) (1.0-4.3) K/uL [place] # (Auto) (0.0-0.8) K/uL Eos # (Auto) (0.0-0.7) K/uL Baso # (Auto) (0.0-0.2) K/uL PT (9.7-12.2) SECONDS INR APTT (21-34) SECONDS Puncture Site pCO2 (35-45) mm/Hg pO2 (80-100) mm/Hg HCO3 (21-28) mmol/L ABG pH (7.35-7.45) ABG Total CO2 (22-28) mmol/L ABG O2 Saturation (95-98) % ABG Base Excess (-2.0-3.0) mmol/L ABG Hemoglobin (11.7-17.4) g/dL ABG Carboxyhemoglobin (0.5-1.5) % POC ABG HHb (Measured) (0.0-5.0) % ABG Methemoglobin (0.0-3.0) % Jamey Test A-a O2 Difference mm/Hg Respiratory Index Hgb O2 Saturation (95.0-98.0) % Vent Mode Mechanical Rate FiO2 % Tidal Volume PEEP Sodium (132-148) mmol/L Potassium (3.6-5.2) mmol/L Chloride (98-107) mmol/L Carbon Dioxide (22-30) mmol/L Anion Gap (10-20) BUN (9-20) mg/dL Creatinine (0.8-1.5) mg/dL Est GFR ( Amer) Est GFR (Non-Af Amer) POC Glucose (mg/dL) 217 H (65-110) mg/dL Random Glucose (75-110) mg/dL Calcium (8.6-10.4) mg/dl Phosphorus (2.5-4.5) mg/dL Magnesium (1.6-2.3) mg/dL Total Bilirubin (0.2-1.3) mg/dL AST (17-59) U/L ALT (21-72) U/L Alkaline Phosphatase (38-126) U/L Total Protein (6.3-8.3) g/dL Albumin (3.5-5.0) g/dL Globulin (2.2-3.9) gm/dL Albumin/Globulin Ratio (1.0-2.1) Laboratory Results - last 24 hr 02/13/18 02/13/18 02/13/18 17:50 20:15 22:31 WBC RBC Hgb Hct MCV MCH MCHC RDW Plt Count MPV Neut % (Auto) Lymph % (Auto) [place] % (Auto) Eos % (Auto) Baso % (Auto) Neut # (Auto) Lymph # (Auto) [place] # (Auto) Eos # (Auto) Baso # (Auto) PT INR APTT 62 H 58 H Puncture Site pCO2 pO2 HCO3 ABG pH ABG Total CO2 ABG O2 Saturation ABG Base Excess ABG Hemoglobin ABG Carboxyhemoglobin POC ABG HHb (Measured) ABG Methemoglobin Jamey Test A-a O2 Difference Respiratory Index Hgb O2 Saturation Vent Mode Mechanical Rate FiO2 Tidal Volume PEEP Sodium Potassium Chloride Carbon Dioxide Anion Gap BUN Creatinine Est GFR ( Amer) Est GFR (Non-Af Amer) POC Glucose (mg/dL) 217 H Random Glucose Calcium Phosphorus Magnesium Total Bilirubin AST ALT Alkaline Phosphatase Total Protein Albumin Globulin Albumin/Globulin Ratio 02/13/18 02/14/18 02/14/18 23:49 05:36 06:12 WBC RBC Hgb Hct MCV MCH MCHC RDW Plt Count MPV Neut % (Auto) Lymph % (Auto) [place] % (Auto) Eos % (Auto) Baso % (Auto) Neut # (Auto) Lymph # (Auto) [place] # (Auto) Eos # (Auto) Baso # (Auto) PT INR APTT Puncture Site Rb pCO2 42 pO2 123 H HCO3 31.1 H ABG pH 7.49 H ABG Total CO2 33.3 H ABG O2 Saturation 99.4 H ABG Base Excess 7.9 H ABG Hemoglobin 10.3 L ABG Carboxyhemoglobin 1.6 H POC ABG HHb (Measured) 0.6 ABG Methemoglobin 0.8 Jamey Test Na A-a O2 Difference 181.0 Respiratory Index 1.5 Hgb O2 Saturation 97.0 Vent Mode Prvc Mechanical Rate 15 FiO2 50.0 Tidal Volume 400 PEEP 5 Sodium Potassium Chloride Carbon Dioxide Anion Gap BUN Creatinine Est GFR ( Amer) Est GFR (Non-Af Amer) POC Glucose (mg/dL) 239 H 266 H Random Glucose Calcium Phosphorus Magnesium Total Bilirubin AST ALT Alkaline Phosphatase Total Protein Albumin Globulin Albumin/Globulin Ratio 02/14/18 02/14/18 02/14/18 06:49 06:49 06:49 WBC 4.2 L RBC 3.19 L Hgb 10.4 L Hct 29.9 L MCV 93.5 MCH 32.4 H MCHC 34.7 RDW 13.0 Plt Count 91 L MPV 11.8 H Neut % (Auto) 59.3 Lymph % (Auto) 26.7 [place] % (Auto) 8.9 Eos % (Auto) 4.7 H Baso % (Auto) 0.4 Neut # (Auto) 2.5 Lymph # (Auto) 1.1 [place] # (Auto) 0.4 Eos # (Auto) 0.2 Baso # (Auto) 0.0 PT 20.0 H INR 1.7 APTT 54 H Puncture Site pCO2 pO2 HCO3 ABG pH ABG Total CO2 ABG O2 Saturation ABG Base Excess ABG Hemoglobin ABG Carboxyhemoglobin POC ABG HHb (Measured) ABG Methemoglobin Jamey Test A-a O2 Difference Respiratory Index Hgb O2 Saturation Vent Mode Mechanical Rate FiO2 Tidal Volume PEEP Sodium 137 Potassium 3.9 Chloride 100 Carbon Dioxide 30 Anion Gap 11 BUN 18 Creatinine 0.9 Est GFR ( Amer) > 60 Est GFR (Non-Af Amer) > 60 POC Glucose (mg/dL) Random Glucose 264 H Calcium 8.2 L Phosphorus 3.1 Magnesium 2.1 Total Bilirubin 0.6 AST 23 ALT 29 Alkaline Phosphatase 86 Total Protein 5.3 L Albumin 2.5 L Globulin 2.8 Albumin/Globulin Ratio 0.9 L 02/14/18 11:20 WBC RBC Hgb Hct MCV MCH MCHC RDW Plt Count MPV Neut % (Auto) Lymph % (Auto) [place] % (Auto) Eos % (Auto) Baso % (Auto) Neut # (Auto) Lymph # (Auto) [place] # (Auto) Eos # (Auto) Baso # (Auto) PT INR APTT Puncture Site pCO2 pO2 HCO3 ABG pH ABG Total CO2 ABG O2 Saturation ABG Base Excess ABG Hemoglobin ABG Carboxyhemoglobin POC ABG HHb (Measured) ABG Methemoglobin Jamey Test A-a O2 Difference Respiratory Index Hgb O2 Saturation Vent Mode Mechanical Rate FiO2 Tidal Volume PEEP Sodium Potassium Chloride Carbon Dioxide Anion Gap BUN Creatinine Est GFR ( Amer) Est GFR (Non-Af Amer) POC Glucose (mg/dL) 266 H Random Glucose Calcium Phosphorus Magnesium Total Bilirubin AST ALT Alkaline Phosphatase Total Protein Albumin Globulin Albumin/Globulin Ratio Critical Care Progress Note - Nutrition Nutrition: Nutrition Category Date Time Status NPO Diet [DIET] Diets 02/14/18 Breakfast Active Attending/Attestation - Attestation I have personally seen and examined this patient.: Yes I have fully participated in the care of the patient.: Yes I have reviewed all pertinent clinical information: Yes Notes (Text): 02/14/18 17:23 patient seen and examined in the intensive care unit. Not tolerating weaning Remains lethargic For PEG insertion tomorrow On agratoban drip and hold it from midnight Continue ventilatory support Continue IV antibiotics
[2018-02-14] MEDS: (Lantus) Insulin Glargine, Recombinant SC SCH ×2 (08:27→20:00)
[2018-02-14] MEDS: WATER IVPB SCH ×2 (10:00→22:20)
[2018-02-14] MEDS: DEXTROSE 5% IVPB SCH ×2 (10:00→22:20)
[2018-02-14] MEDS: LEVETIRACETAM IVPB SCH ×2 (10:00→22:20)
[2018-02-14] MEDS: Argatroban 250 MG in Dextrose 5% In Water 250 ML IV SCH (11:05)
--- NOTE | 2018-02-14 12:11 | CP.PCM.PN ---
Subjective - Date & Time of Evaluation Date of Evaluation: 02/14/18 Time of Evaluation: 12:51 - Subjective Subjective: Gen Surg: Dr Giordano Pt S&E in ICU. More alert than previous examinations. On CPAP trial. LE duplex pending. Plan for G-tube monday. Objective - Vital Signs/Intake and Output Vital Signs (last 24 hours): Temp Pulse Resp BP Pulse Ox 98.6 F 78 10 L 125/86 100 02/14/18 04:00 02/14/18 11:01 02/14/18 11:01 02/14/18 11:01 02/14/18 11:01 Intake and Output: 02/14/18 02/14/18 06:59 18:59 Intake Total 1299.2 908.0 Output Total 1500 630 Balance -200.8 278.0 - Medications Medications: Current Medications Acetaminophen (Tylenol 650mg/20.3ml Solution Ud) 650 mg NG Q6 PRN PRN Reason: GIVE FOR TEMP. 100*F OR ABOVE Last Admin: 02/05/18 20:48 Dose: 650 mg Acetylcysteine (Acetylcysteine 20%) 4 ml INH RQ12 [facility] Last Admin: 02/14/18 07:45 Dose: 4 ml Albuterol/Ipratropium (Duoneb 3 Mg/0.5 Mg (3 Ml) Ud) 3 ml INH RQ6 [facility] Last Admin: 02/14/18 07:43 Dose: 3 ml Apixaban (Eliquis) 10 mg PO BID [facility] Stop: 02/16/18 18:01 Last Admin: 02/13/18 10:04 Dose: 10 mg Aspirin (Aspirin Chewable) 81 mg PO DAILY [facility] Last Admin: 02/14/18 09:06 Dose: 81 mg Carvedilol (Coreg) 12.5 mg PO BID [facility] Last Admin: 02/14/18 09:07 Dose: 12.5 mg Hydralazine HCl (Apresoline) 100 mg PO Q8 [facility] Last Admin: 02/14/18 06:05 Dose: 100 mg Levetiracetam 500 mg/ Dextrose 55 mls @ 420 mls/hr IVPB Q12H [facility] Last Admin: 02/14/18 10:00 Dose: 420 mls/hr Vancomycin HCl 1 gm/ Dextrose 250 mls @ 166.7 mls/hr IVPB Q48H [facility] PRN Reason: Protocol Last Admin: 02/12/18 19:30 Dose: 166.7 mls/hr Acyclovir 750 mg/ Dextrose 250 mls @ 100 mls/hr IV Q12H [facility] PRN Reason: Protocol Last Admin: 02/14/18 08:00 Dose: 100 mls/hr Argatroban 250 mg/ Dextrose 252.5 mls @ 11.7 mls/hr IV .[id number] [facility]; 2 MCG/KG/ MIN PRN Reason: Protocol Last Admin: 02/14/18 11:05 Dose: 11.7 mls/hr Cefepime HCl (Maxipime Iv 2 Gm Premix) 2 gm in 100 mls @ 200 mls/hr IVPB Q12H [facility] PRN Reason: Protocol Stop: 02/19/18 07:01 Last Admin: 02/14/18 06:05 Dose: 200 mls/hr Insulin Aspart (Novolog) 0 unit SC Q6 [facility] PRN Reason: Protocol Last Admin: 02/14/18 06:15 Dose: 6 unit Insulin Glargine (Lantus) 20 unit SC Q12H [facility] Last Admin: 02/14/18 08:27 Dose: 20 u Lorazepam (Ativan) 1 mg IVP Q4H PRN PRN Reason: Anxiety Last Admin: 02/14/18 08:48 Dose: 1 mg Pantoprazole Sodium (Protonix Inj) 40 mg IVP DAILY [facility] Last Admin: 02/14/18 09:08 Dose: 40 mg Tamsulosin HCl (Flomax) 0.4 mg PO DAILY [facility] Last Admin: 02/14/18 09:08 Dose: 0.4 mg - Labs Labs: 02/14/18 06:49 02/14/18 06:49 PT 20.0 SECONDS (9.7-12.2) H 02/14/18 06:49 INR 1.7 02/14/18 06:49 APTT 54 SECONDS (21-34) H 02/14/18 06:49 - Constitutional Appears: Chronically Ill - ENT Exam ENT Exam: Mucous Membranes Dry - Respiratory Exam Respiratory Exam: absent: Respiratory Distress - GI/Abdominal Exam GI & Abdominal Exam: Soft. absent: Distended - Neurological Exam Neurological Exam: Awake. absent: Alert, Oriented x3 Assessment and Plan - Assessment and Plan (Free Text) Assessment: 67yo M with CVA vs. seizure; Surgery following for gastrostomy tube placement Plan: - Continue hold eliquis. On argatroban - Medical optimization for OR gastrostomy placement Monday - Repeat Lower extremity doppler. IVC filter placement pending Further recs as per Dr. Pasquale Lara, PGY3
--- NOTE | 2018-02-14 12:32 | PN ---
DATE: LOCATION: ICU-7. SUBJECTIVE: This is a 67-year-old male seen and examined in rounds with the staff in the intensive care unit, intubated, on NG-tube feeding. The entire chart is reviewed including, but not limited to the most recent lab and radiology study results, current and the previous medication list, current and the previous medical events. Case discussed with the staff at length. The patient is nonverbal at this point with less response to verbal stimuli. Today's lab showed white blood cell of 4.2, hemoglobin 10.4, hematocrit 29.9, with thrombocytopenia of 91, PT 20, PTT 54, with abnormal ABGs. Blood glucose level 266. Calcium 8.2, albumin 2.5, total protein 5.3. Most recent chest x-ray done today, official report seen, indicative of cardiomegaly with small left pleural effusion and moderate venous congestion, with status post CABG. PHYSICAL EXAMINATION: GENERAL: A 67-year-old male. VITAL SIGNS: Afebrile with pulse of 70, blood pressure 120/82. HEENT: Showed pale dry oral mucous membrane. The patient is intubated with NG-tube in place. Nonicteric sclerae. LUNGS: Few scattered bilateral crepitations with decreased air entry at bases. HEART: Positive S1 and S2. ABDOMEN: With mild distention. Bowel sounds are hypoactive. No mass or organomegaly. No rebound tenderness or guarding. EXTREMITIES: Extremities with edematous changes. No clubbing or cyanosis. NEURO: No reported new neurological deficits, sensory or motor. No new reported focal deficits. Peripheral pulses are present, but decreased at bases. IMPRESSION: 1. Malnutrition with hypoalbuminemia, hypoproteinemia. 2. Seizure disorder, respiratory failure, intubated . 3. Known history of hypertension, coronary artery disease, status post coronary artery bypass graft. 4. The patient is a candidate for percutaneous endoscopic gastrostomy insertion. The patient is scheduled by myself for a.m. after correcting his coagulopathy. 5. Coagulopathy is drug induced. 6. Known history of hyperlipidemia. SUGGESTIONS: 1. Continue current management. 2. Fresh frozen plasma. 3. Stop anticoagulation or any antiplatelet medications. Alaa Salah-Aden, MD [facility] # [id number]
--- NOTE | 2018-02-14 13:07 | VASCLAB ---
PROCEDURE: Lower Extremity Venous Duplex Exam. HISTORY: r/o DVT PRIORS: None. TECHNIQUE: Bilateral common femoral, femoral, popliteal and posterior tibial, peroneal and great saphenous veins were evaluated. Flow was assessed with color Doppler, compressibility, assessment of phasic flow and augmentation response. Report prepared by Davis Clemente, BS, RVT FINDINGS: RIGHT: 1. Common Femoral Vein: 1.1. Compressibility - Fully compressible: Thrombus - None : Flow - Phasic: Augmentation -Normal: Reflux - None. 2. Femoral Vein: 2.1. Compressibility - Fully compressible: Thrombus - None : Flow - Phasic: Augmentation -Normal: Reflux - None. 3. Popliteal Vein: 3.1. Compressibility - Fully compressible: Thrombus - None : Flow - Phasic: Augmentation -Normal: Reflux - None. 4. Posterior Tibial Vein: 4.1. Compressibility - Fully compressible: Thrombus - None: Flow - Phasic: Augmentation -Normal: Reflux - None. 5. Peroneal Vein: 5.1. Compressibility - Partial: Thrombus - Acute: Flow - Absent : Augmentation -None: Reflux - None. 6. Great Saphenous Vein: 6.1. Compressibility - Fully compressible: Thrombus - None: Flow - Phasic: Augmentation - Normal: Reflux - None. LEFT: 1. Common Femoral Vein: 1.1. Compressibility - Fully compressible: Thrombus - None: Flow - Phasic: Augmentation -Normal: Reflux - None. 2. Femoral Vein: 2.1. Compressibility - Fully compressible: Thrombus - None: Flow - Phasic: Augmentation -Normal: Reflux - None. 3. Popliteal Vein: 3.1. Compressibility - Fully compressible: Thrombus - None : Flow - Phasic: Augmentation -Normal: Reflux - None. 4. Posterior Tibial Vein: 4.1. Compressibility - Fully compressible: Thrombus - None: Flow - Phasic: Augmentation -Normal: Reflux - None. 5. Peroneal Vein: 5.1. Compressibility - Fully compressible: Thrombus - None: Flow - Phasic: Augmentation -Normal: Reflux - None. 6. Great Saphenous Vein: 6.1. Compressibility - Fully compressible: Thrombus - None: Flow - Phasic: Augmentation - Normal: Reflux - None. OTHER FINDINGS: BIPIN Marinelli notified about the findings. IMPRESSION: Right: Acute thrombosis of the right peroneal vein with severe reduction of the venous return. Left: No evidence of deep or superficial vein thrombosis of the left lower extremity. Normal valve function noted of the left side.
[2018-02-14] MEDS: Vancomycin 1 GM in Dextrose 5% In Water 250 ML IVPB SCH (18:30)
--- NOTE | 2018-02-14 23:25 | CP.PCM.PN ---
Subjective - Date & Time of Evaluation Date of Evaluation: 02/14/18 Time of Evaluation: 17:00 - Subjective Subjective: Pt seen and evalauted at bedside, pt is on MV FiO2 of 50%, attempt weaning, will continue to monitor pt Objective - Vital Signs/Intake and Output Vital Signs (last 24 hours): Temp Pulse Resp BP Pulse Ox 98 F 68 17 136/66 100 02/14/18 20:00 02/14/18 23:00 02/14/18 23:00 02/14/18 23:00 02/14/18 23:00 Intake and Output: 02/14/18 02/15/18 18:59 06:59 Intake Total 1439.2 1102.0 Output Total 1520 600 Balance -80.8 502.0 - Medications Medications: Current Medications Acetaminophen (Tylenol 650mg/20.3ml Solution Ud) 650 mg NG Q6 PRN PRN Reason: GIVE FOR TEMP. 100*F OR ABOVE Last Admin: 02/05/18 20:48 Dose: 650 mg Acetylcysteine (Acetylcysteine 20%) 4 ml INH RQ12 [facility] Last Admin: 02/14/18 20:23 Dose: 4 ml Albuterol/Ipratropium (Duoneb 3 Mg/0.5 Mg (3 Ml) Ud) 3 ml INH RQ6 [facility] Last Admin: 02/14/18 20:23 Dose: 3 ml Apixaban (Eliquis) 10 mg PO BID [facility] Stop: 02/16/18 18:01 Last Admin: 02/13/18 10:04 Dose: 10 mg Aspirin (Aspirin Chewable) 81 mg PO DAILY [facility] Last Admin: 02/14/18 09:06 Dose: 81 mg Carvedilol (Coreg) 12.5 mg PO BID [facility] Last Admin: 02/14/18 17:16 Dose: 12.5 mg Hydralazine HCl (Apresoline) 100 mg PO Q8 [facility] Last Admin: 02/14/18 22:20 Dose: 100 mg Levetiracetam 500 mg/ Dextrose 55 mls @ 420 mls/hr IVPB Q12H [facility] Last Admin: 02/14/18 22:20 Dose: 420 mls/hr Vancomycin HCl 1 gm/ Dextrose 250 mls @ 166.7 mls/hr IVPB Q48H [facility] PRN Reason: Protocol Last Admin: 02/14/18 18:30 Dose: 166.7 mls/hr Acyclovir 750 mg/ Dextrose 250 mls @ 100 mls/hr IV Q12H [facility] PRN Reason: Protocol Last Admin: 02/14/18 21:00 Dose: 100 mls/hr Argatroban 250 mg/ Dextrose 252.5 mls @ 11.7 mls/hr IV .[id number] [facility]; 2 MCG/KG/ MIN PRN Reason: Protocol Last Admin: 02/14/18 11:05 Dose: 11.7 mls/hr Cefepime HCl (Maxipime Iv 2 Gm Premix) 2 gm in 100 mls @ 200 mls/hr IVPB Q12H [facility] PRN Reason: Protocol Stop: 02/19/18 07:01 Last Admin: 02/14/18 18:01 Dose: 200 mls/hr Insulin Aspart (Novolog) 0 unit SC Q6 [facility] PRN Reason: Protocol Last Admin: 02/14/18 18:04 Dose: 6 unit Insulin Glargine (Lantus) 20 unit SC Q12H [facility] Last Admin: 02/14/18 20:00 Dose: Not Given Lorazepam (Ativan) 2 mg IVP Q3H PRN PRN Reason: Anxiety Last Admin: 02/14/18 18:46 Dose: 2 mg Pantoprazole Sodium (Protonix Inj) 40 mg IVP DAILY [facility] Last Admin: 02/14/18 09:08 Dose: 40 mg Tamsulosin HCl (Flomax) 0.4 mg PO DAILY [facility] Last Admin: 02/14/18 09:08 Dose: 0.4 mg - Labs Labs: 02/14/18 06:49 02/14/18 06:49 PT 20.0 SECONDS (9.7-12.2) H 02/14/18 06:49 INR 1.7 02/14/18 06:49 APTT 54 SECONDS (21-34) H 02/14/18 06:49 - Constitutional Appears: No Acute Distress - Head Exam Head Exam: ATRAUMATIC, NORMAL INSPECTION, NORMOCEPHALIC - Eye Exam Eye Exam: EOMI, Normal appearance, PERRL Pupil Exam: NORMAL ACCOMODATION, PERRL - Respiratory Exam Respiratory Exam: Decreased Breath Sounds, Rales, Rhonchi - Cardiovascular Exam Cardiovascular Exam: REGULAR RHYTHM, +S1, +S2. absent: Murmur - GI/Abdominal Exam GI & Abdominal Exam: Soft, Normal Bowel Sounds. absent: Tenderness Assessment and Plan (1) Status epilepticus Status: Acute (2) COPD (chronic obstructive pulmonary disease) Status: Acute (3) Congestive heart failure Status: Acute (4) Diabetes Status: Acute (5) Hypernatremia Status: Acute (6) Acute respiratory failure Status: Acute (7) Ischemic encephalopathy Status: Acute
[2018-02-15] MEDS: Albuterol-Ipratrop 3 mg / 0.5 (3 ml) UD INH SCH ×4 (01:50→19:29)
[2018-02-15 05:48] LABS: ARTERIAL BLOOD GAS HCO3 32.7 mmol/L (21-28); ARTERIAL BLOOD GAS HEMOGLOBIN 10.8 g/dL (11.7-17.4); ARTERIAL BLOOD GAS O2 SAT 99.2 % (95-98); ARTERIAL BLOOD GAS PCO2 39 mm/Hg (35-45); ARTERIAL BLOOD GAS PH 7.54 (7.35-7.45); ARTERIAL BLOOD GAS PO2 113 mm/Hg (80-100); ARTERIAL BLOOD GAS TCO2 34.5 mmol/L (22-28)
[2018-02-15] MEDS: (Novolog) Insulin Aspart, Recombinant 100 u/ml 10 ml vial SC SCH ×4 (06:10→18:05)
[2018-02-15] MEDS: Cefepime IV 2 gm in Dextrose 2 GM/100 ML BAG IVPB SCH ×2 (06:10→18:04)
[2018-02-15 06:31] LABS: BASO % 0.4 % (0.0-2.0); EOS # 0.2 K/uL (0.0-0.7); EOS % 4.5 % (0.0-4.0); HEMOGLOBIN 10.2 g/dL (12.0-18.0); LYMPH # 1.3 K/uL (1.0-4.3); LYMPH % 31.9 % (20.0-40.0); MEAN CORPUSCULAR HEMOGLOBIN 31.8 pg (27.0-31.0); MEAN CORPUSCULAR HGB CONC 33.8 g/dL (33.0-37.0); MEAN PLATELET VOLUME 11.9 fL (7.2-11.7); MONO # 0.4 K/uL (0.0-0.8); MONO % 9.8 % (0.0-10.0); NEUT # 2.1 K/uL (1.8-7.0); NEUT % 53.4 % (50.0-75.0); NRBC % 0.2 % (0.0-2.0); RBC 3.2 Mil/uL (4.40-5.90)
[2018-02-15 06:38] LABS: INR 1.1; PROTHROMBIN TIME 12.6 SECONDS (9.7-12.2)
[2018-02-15 06:49] LABS: ALB/GLOB RATIO 0.9 (1.0-2.1); ALBUMIN 2.5 g/dL (3.5-5.0); ALT/SGPT 25 U/L (21-72); AST/SGOT 27 U/L (17-59); BLOOD UREA NITROGEN 19 mg/dL (9-20); CALCIUM 7.9 mg/dl (8.6-10.4); GFR AFRICAN-AMERICAN > 60; GFR NON-AFRICAN AMERICAN > 60
--- NOTE | 2018-02-15 07:05 | CP.PCM.PN ---
Subjective - Date & Time of Evaluation Date of Evaluation: 02/15/18 Time of Evaluation: 07:05 - Subjective Subjective: Mr. Latif was seen and examined at the bedside in ICU. He is n mechanical ventilator on PRVC mode. He response to pain stimuli with facial grimacing and moving his bilateral upper and lower extremities spontaneously with left lower extremity weaker than the rest of his extremities, GCS-4T.He is able to open his eyes spontaneously with both verbal and tactile stimuli. He was not able to follow commands this morning, however, per staff, he is able to follow simple commands from the family.He is able to move all extremities, but really stiffen his upper extremities as a response to any stimuli.. His eyes remain unequal left 3mm and right 2 mm brisk to react. He has a bilateral hand mittens for patient safety.There was no untoward events overnight. Objective - Vital Signs/Intake and Output Vital Signs (last 24 hours): Temp Pulse Resp BP Pulse Ox 97.7 F 71 15 139/67 100 02/15/18 04:00 02/15/18 07:00 02/15/18 07:00 02/15/18 07:00 02/15/18 07:00 Intake and Output: 02/15/18 02/15/18 06:59 18:59 Intake Total 1322.0 0 Output Total 1400 Balance -78.0 0 - Medications Medications: Current Medications Acetaminophen (Tylenol 650mg/20.3ml Solution Ud) 650 mg NG Q6 PRN PRN Reason: GIVE FOR TEMP. 100*F OR ABOVE Last Admin: 02/05/18 20:48 Dose: 650 mg Acetylcysteine (Acetylcysteine 20%) 4 ml INH RQ12 [facility] Last Admin: 02/14/18 20:23 Dose: 4 ml Albuterol/Ipratropium (Duoneb 3 Mg/0.5 Mg (3 Ml) Ud) 3 ml INH RQ6 [facility] Last Admin: 02/15/18 01:50 Dose: 3 ml Apixaban (Eliquis) 10 mg PO BID [facility] Stop: 02/16/18 18:01 Last Admin: 02/13/18 10:04 Dose: 10 mg Aspirin (Aspirin Chewable) 81 mg PO DAILY [facility] Last Admin: 02/14/18 09:06 Dose: 81 mg Carvedilol (Coreg) 12.5 mg PO BID [facility] Last Admin: 02/14/18 17:16 Dose: 12.5 mg Hydralazine HCl (Apresoline) 100 mg PO Q8 [facility] Last Admin: 02/15/18 06:15 Dose: 100 mg Levetiracetam 500 mg/ Dextrose 55 mls @ 420 mls/hr IVPB Q12H [facility] Last Admin: 02/14/18 22:20 Dose: 420 mls/hr Vancomycin HCl 1 gm/ Dextrose 250 mls @ 166.7 mls/hr IVPB Q48H [facility] PRN Reason: Protocol Last Admin: 02/14/18 18:30 Dose: 166.7 mls/hr Acyclovir 750 mg/ Dextrose 250 mls @ 100 mls/hr IV Q12H [facility] PRN Reason: Protocol Last Admin: 02/14/18 21:00 Dose: 100 mls/hr Argatroban 250 mg/ Dextrose 252.5 mls @ 11.7 mls/hr IV .[id number] [facility]; 2 MCG/KG/ MIN PRN Reason: Protocol Last Admin: 02/14/18 11:05 Dose: 11.7 mls/hr Cefepime HCl (Maxipime Iv 2 Gm Premix) 2 gm in 100 mls @ 200 mls/hr IVPB Q12H [facility] PRN Reason: Protocol Stop: 02/19/18 07:01 Last Admin: 02/15/18 06:10 Dose: 200 mls/hr Insulin Aspart (Novolog) 0 unit SC Q6 [facility] PRN Reason: Protocol Last Admin: 02/15/18 06:10 Dose: 8 unit Insulin Glargine (Lantus) 20 unit SC Q12H [facility] Last Admin: 02/14/18 20:00 Dose: Not Given Lorazepam (Ativan) 2 mg IVP Q3H PRN PRN Reason: Anxiety Last Admin: 02/15/18 01:45 Dose: 2 mg Pantoprazole Sodium (Protonix Inj) 40 mg IVP DAILY [facility] Last Admin: 02/14/18 09:08 Dose: 40 mg Tamsulosin HCl (Flomax) 0.4 mg PO DAILY [facility] Last Admin: 02/14/18 09:08 Dose: 0.4 mg - Labs Labs: 02/15/18 06:24 02/15/18 06:24 PT 12.6 SECONDS (9.7-12.2) H D 02/15/18 06:24 INR 1.1 D 02/15/18 06:24 APTT 32 SECONDS (21-34) D 02/15/18 06:24 - Constitutional Appears: No Acute Distress - Head Exam Head Exam: NORMAL INSPECTION - Neurological Exam Neurological Exam: Awake Neuro motor strength exam: Left Upper Extremity: 3, Right Upper Extremity: 3, Left Lower Extremity: 2/1, Right Lower Extremity: 2/1 Additional comments: Neurological unchanged from previous examination. Assessment and Plan (1) Status epilepticus Assessment & Plan: Case discussed with Dr. Perez, continue all current medical regimen. Recommend PT eval and treat for prevention of deconditioning. Treat any underlying electrolyte abnormalities. Recommend MRI of the brain to evaluate weakness of the left lower extremity if possible and keppra level. Status: Acute
[2018-02-15] MEDS: DEXTROSE 5% IV SCH ×2 (07:51→20:07)
[2018-02-15] MEDS: WATER IV SCH ×2 (07:51→20:07)
[2018-02-15] MEDS: ACYCLOVIR IV SCH ×2 (07:51→20:07)
--- NOTE | 2018-02-15 08:52 | CP.PCM.PN ---
Subjective - Date & Time of Evaluation Date of Evaluation: 02/15/18 Time of Evaluation: 07:05 - Subjective Subjective: Surgery Progress note. Dr. Giordano Pt seen and examined at bedside. No acute events overnight. Still intubated. Responds by opening eyes to tactile stimuli. No new events reported by nursing staff. GI team to attempt PEG today. Objective - Vital Signs/Intake and Output Vital Signs (last 24 hours): Temp Pulse Resp BP Pulse Ox 97.5 F L 73 12 112/61 99 02/15/18 08:00 02/15/18 08:01 02/15/18 08:01 02/15/18 08:01 02/15/18 08:01 Intake and Output: 02/15/18 02/15/18 06:59 18:59 Intake Total 1322.0 0 Output Total 1400 200 Balance -78.0 -200 - Medications Medications: Current Medications Acetaminophen (Tylenol 650mg/20.3ml Solution Ud) 650 mg NG Q6 PRN PRN Reason: GIVE FOR TEMP. 100*F OR ABOVE Last Admin: 02/05/18 20:48 Dose: 650 mg Acetylcysteine (Acetylcysteine 20%) 4 ml INH RQ12 [facility] Last Admin: 02/14/18 20:23 Dose: 4 ml Albuterol/Ipratropium (Duoneb 3 Mg/0.5 Mg (3 Ml) Ud) 3 ml INH RQ6 [facility] Last Admin: 02/15/18 01:50 Dose: 3 ml Apixaban (Eliquis) 10 mg PO BID [facility] Stop: 02/16/18 18:01 Last Admin: 02/13/18 10:04 Dose: 10 mg Aspirin (Aspirin Chewable) 81 mg PO DAILY [facility] Last Admin: 02/14/18 09:06 Dose: 81 mg Carvedilol (Coreg) 12.5 mg PO BID [facility] Last Admin: 02/14/18 17:16 Dose: 12.5 mg Hydralazine HCl (Apresoline) 100 mg PO Q8 [facility] Last Admin: 02/15/18 06:15 Dose: 100 mg Levetiracetam 500 mg/ Dextrose 55 mls @ 420 mls/hr IVPB Q12H [facility] Last Admin: 02/14/18 22:20 Dose: 420 mls/hr Vancomycin HCl 1 gm/ Dextrose 250 mls @ 166.7 mls/hr IVPB Q48H [facility] PRN Reason: Protocol Last Admin: 02/14/18 18:30 Dose: 166.7 mls/hr Acyclovir 750 mg/ Dextrose 250 mls @ 100 mls/hr IV Q12H [facility] PRN Reason: Protocol Last Admin: 02/15/18 07:51 Dose: 100 mls/hr Argatroban 250 mg/ Dextrose 252.5 mls @ 11.7 mls/hr IV .[id number] [facility]; 2 MCG/KG/ MIN PRN Reason: Protocol Last Admin: 02/14/18 11:05 Dose: 11.7 mls/hr Cefepime HCl (Maxipime Iv 2 Gm Premix) 2 gm in 100 mls @ 200 mls/hr IVPB Q12H [facility] PRN Reason: Protocol Stop: 02/19/18 07:01 Last Admin: 02/15/18 06:10 Dose: 200 mls/hr Insulin Aspart (Novolog) 0 unit SC Q6 [facility] PRN Reason: Protocol Last Admin: 02/15/18 06:10 Dose: 8 unit Insulin Glargine (Lantus) 20 unit SC Q12H [facility] Last Admin: 02/14/18 20:00 Dose: Not Given Lorazepam (Ativan) 2 mg IVP Q3H PRN PRN Reason: Anxiety Last Admin: 02/15/18 07:57 Dose: 2 mg Pantoprazole Sodium (Protonix Inj) 40 mg IVP DAILY [facility] Last Admin: 02/14/18 09:08 Dose: 40 mg Tamsulosin HCl (Flomax) 0.4 mg PO DAILY [facility] Last Admin: 02/14/18 09:08 Dose: 0.4 mg - Labs Labs: 02/15/18 06:24 02/15/18 06:24 PT 12.6 SECONDS (9.7-12.2) H D 02/15/18 06:24 INR 1.1 D 02/15/18 06:24 APTT 32 SECONDS (21-34) D 02/15/18 06:24 - Constitutional Appears: Non-toxic - Head Exam Head Exam: ATRAUMATIC, NORMAL INSPECTION, NORMOCEPHALIC - Eye Exam Eye Exam: EOMI, Normal appearance - ENT Exam ENT Exam: Mucous Membranes Moist - Respiratory Exam Respiratory Exam: NORMAL BREATHING PATTERN. absent: Accessory Muscle Use, Respiratory Distress - Cardiovascular Exam Cardiovascular Exam: RRR. absent: JVD - GI/Abdominal Exam GI & Abdominal Exam: Soft. absent: Distended, Guarding, Rigid, Tenderness - Extremities Exam Extremities Exam: absent: Calf Tenderness - Neurological Exam Additional comments: Intubated. Minimal response with eye opening to tactile stimuli Assessment and Plan - Assessment and Plan (Free Text) Assessment: 67yo M with CVA vs. Seizure; hospital course complicated by Acute R peroneal DVT and PE. Surgery following for gastrostomy and possible IVC filter Plan: - F/u GI plans regarding PEG. Will schedule for Open Gastrostomy if PEG unobtainable. - Will plan for IVC filter tomorrow. Hold tube feeds past mn. - Medical maximization Further recs as per Dr. Pasquale Arango PGY1 surgery pager: [phone]
--- NOTE | 2018-02-15 09:11 | RAD ---
HISTORY: intubated COMPARISON: 02/14/2018 FINDINGS: LUNGS: Shallow lung volumes limits optimal evaluation the bases. Nevertheless coalescent opacities left lung base suggested and similar. PLEURA: Similar small left pleural effusion with or without pleural thickening. No pneumothorax appreciated CARDIOVASCULAR: Cardiomegaly coronary artery bypass clips and midline sternotomy. Aortic knob heavy calcification-all similarRight hilar mild prominence OSSEOUS STRUCTURES: Midline sternotomy. Diffuse thoraco lumbar spondylosis and inferred degenerative type wedging. Kyphotic state probable VISUALIZED UPPER ABDOMEN: Right upper quadrant cholecystectomy clips Left internal jugular vein central line tip likely in superior vena cava and or innominate -similar NG tube coursing along the upper stomach tip likely in stomach limited visualization of the OTHER FINDINGS: IMPRESSION: Limited exam-shallow inspiration probable kyphosis. The patchy coalescent left basal opacities inferred retrocardiac are similar in appearance with similar costophrenic angle small pleural effusion and/or thickening. Cardiomegaly, right hilar prominence, lines and tubes all similar in appearance
[2018-02-15] MEDS: DEXTROSE 5% IVPB SCH ×2 (09:20→21:56)
[2018-02-15] MEDS: WATER IVPB SCH ×2 (09:20→21:56)
[2018-02-15] MEDS: LEVETIRACETAM IVPB SCH ×2 (09:20→21:56)
[2018-02-15] MEDS ORDERED: POLYETHYLENE GLYCOL 3350 17 GM/Dose PACKET PO ONE (10:01)
[2018-02-15] MEDS ORDERED: Lactated Ringer's 1,000 ML IV ONE (10:20)
[2018-02-15] MEDS ORDERED: Etomidate 20 mg/10ml Inj IV ONE (10:24)
[2018-02-15] MEDS ORDERED: Heparin25000 units/250ml 1/2NS 25,000 UNITS/250 ML BAG IV PRN (11:05)
--- NOTE | 2018-02-15 11:57 | CP.CCUPN ---
<Amaya Castañeda - Last Filed: 02/15/18 17:05> CCU Subjective - Physician Review Subjective (Free Text): 02/15/18 09:00 Patient seen and examined at bedside. Per nursing no acute events overnight. Patient opens eyes to verbal stimuli but not following simple commands. Moving all extremities. Argatroban held. For peg tube placement this morning by GI. Pateint with lower extremity DVT, plan for IVC filter tomorrow by surgery. CCU Objective - Vital Signs / Intake & Output Vital Signs (Last 4 hours): Vital Signs Temp Pulse Resp BP Pulse Ox 02/15/18 10:01 78 23 121/62 100 02/15/18 10:00 71 23 100 02/15/18 09:01 74 13 136/52 L 99 02/15/18 09:00 75 15 99 02/15/18 08:01 73 12 112/61 99 02/15/18 08:00 97.5 F L 77 10 L 100 Intake and Output (Last 8hrs): Intake & Output 02/14/18 02/15/18 02/15/18 22:59 06:59 14:59 Intake Total 1386.8 281.6 350 Output Total 940 950 250 Balance 446.8 -668.4 100 Weight 96.87 kg Intake: Intake, IV Amount 826.8 111.6 350 Left Distal Port Internal 92.8 11.6 0 Jugular Left Proximal Port 734 100 350 Internal Jugular Oral 160 120 Tube Feeding 400 50 0 Output: Urine 940 950 250 2-way Urethral 940 950 250 Other: # Bowel Movements 0 1 - Physical Exam Head: Positive for: Atraumatic, Normocephalic Pupils: Positive for: PERRL Conjunctiva: Positive for: Normal Mouth: Positive for: Moist Mucous Membranes, Other (ETT) Neck: Positive for: Normal Range of Motion Respiratory/Chest: Positive for: Clear to Auscultation, Good Air Exchange. Negative for: Respiratory Distress Cardiovascular: Positive for: Regular Rate and Rhythm, Normal S1, S2. Negative for: Tachycardic Abdomen: Positive for: Normal Bowel Sounds, Other (Obese). Negative for: Tenderness, Distention, Peritoneal Signs Lower Extremity: Positive for: Normal Inspection Neurological: Positive for: Other (Moves all extremities) Skin: Positive for: Warm, Dry Psychiatric: Positive for: Alert - Medications Active Medications: Active Medications Generic Name Dose Route Start Last Admin Trade Name Freq PRN Reason Stop Dose Admin Acetaminophen 650 mg 01/19/18 00:50 02/05/18 20:48 Tylenol 650mg/20.3ml Solution Ud NG 650 mg Q6 PRN Administration GIVE FOR TEMP. 100*F OR ABOVE Acetylcysteine 4 ml 02/12/18 20:00 02/14/18 20:23 Acetylcysteine 20% INH 4 ml RQ12 SHINE Administration Albuterol/Ipratropium 3 ml 01/26/18 20:00 02/15/18 01:50 Duoneb 3 Mg/0.5 Mg (3 Ml) Ud INH 3 ml RQ6 SHINE Administration Apixaban 10 mg 02/09/18 18:00 02/13/18 10:04 Eliquis PO 02/16/18 18:01 10 mg BID SHINE Administration Aspirin 81 mg 01/17/18 10:00 02/14/18 09:06 Aspirin Chewable PO 81 mg DAILY SHINE Administration Carvedilol 12.5 mg 01/22/18 09:07 02/14/18 17:16 Coreg PO 12.5 mg BID SHINE Administration Docusate Sodium 100 mg 02/15/18 18:00 Colace PO BID SHINE Hydralazine HCl 100 mg 02/03/18 00:29 02/15/18 06:15 Apresoline PO 100 mg Q8 SHINE Administration Levetiracetam 500 mg/ Dextrose 55 mls @ 420 mls/hr 02/08/18 22:00 02/15/18 09 :20 IVPB 420 mls/hr Q12H SHINE Administration Vancomycin HCl 1 gm/ Dextrose 250 mls @ 166.7 mls/hr 02/08/18 19:30 02/14/18 18:30 IVPB 166.7 mls/hr Q48H SHINE Administration Protocol Acyclovir 750 mg/ Dextrose 250 mls @ 100 mls/hr 02/08/18 20:00 02/15/18 07:51 IV 100 mls/hr Q12H SHINE Administration Protocol Cefepime HCl 2 gm in 100 mls @ 200 mls/hr 02/14/18 07:00 02/15/18 06:10 Maxipime Iv 2 Gm Premix IVPB 02/19/18 07:01 200 mls/hr Q12H SHINE Administration Protocol Insulin Aspart 0 unit 02/09/18 18:56 02/15/18 06:10 Novolog SC 8 unit Q6 SHINE Administration Protocol Insulin Glargine 20 unit 02/09/18 08:00 02/14/18 20:00 Lantus SC Not Given Q12H SHINE Lorazepam 2 mg 02/14/18 14:07 02/15/18 07:57 Ativan IVP 2 mg Q3H PRN Administration Anxiety Pantoprazole Sodium 40 mg 02/13/18 11:30 02/15/18 09:19 Protonix Inj IVP 40 mg DAILY SHINE Administration Tamsulosin HCl 0.4 mg 01/30/18 20:00 02/14/18 09:08 Flomax PO 0.4 mg DAILY SHINE Administration - Patient Studies Lab Studies: Lab Studies 02/15/18 02/15/18 02/15/18 Range/Units 11:33 06:24 06:24 WBC (4.8-10.8) K/uL RBC (4.40-5.90) Mil/uL Hgb (12.0-18.0) g/dL Hct (35.0-51.0) % MCV (80.0-94.0) fL MCH (27.0-31.0) pg MCHC (33.0-37.0) g/dL RDW (11.5-14.5) % Plt Count (130-400) K/uL MPV (7.2-11.7) fL Neut % (Auto) (50.0-75.0) % Lymph % (Auto) (20.0-40.0) % Beckham % (Auto) (0.0-10.0) % Eos % (Auto) (0.0-4.0) % Baso % (Auto) (0.0-2.0) % Neut # (Auto) (1.8-7.0) K/uL Lymph # (Auto) (1.0-4.3) K/uL Beckham # (Auto) (0.0-0.8) K/uL Eos # (Auto) (0.0-0.7) K/uL Baso # (Auto) (0.0-0.2) K/uL PT 12.6 H D (9.7-12.2) SECONDS INR 1.1 D APTT 32 D (21-34) SECONDS Puncture Site pCO2 (35-45) mm/Hg pO2 (80-100) mm/Hg HCO3 (21-28) mmol/L ABG pH (7.35-7.45) ABG Total CO2 (22-28) mmol/L ABG O2 Saturation (95-98) % ABG Base Excess (-2.0-3.0) mmol/L ABG Hemoglobin (11.7-17.4) g/dL ABG Carboxyhemoglobin (0.5-1.5) % POC ABG HHb (Measured) (0.0-5.0) % ABG Methemoglobin (0.0-3.0) % Jamey Test A-a O2 Difference mm/Hg Respiratory Index Hgb O2 Saturation (95.0-98.0) % Vent Mode Mechanical Rate FiO2 % Tidal Volume PEEP Sodium 137 (132-148) mmol/L Potassium 4.0 (3.6-5.2) mmol/L Chloride 99 (98-107) mmol/L Carbon Dioxide 30 (22-30) mmol/L Anion Gap 12 (10-20) BUN 19 (9-20) mg/dL Creatinine 0.8 (0.8-1.5) mg/dL Est GFR ( Amer) > 60 Est GFR (Non-Af Amer) > 60 POC Glucose (mg/dL) 226 H (65-110) mg/dL Random Glucose 269 H (75-110) mg/dL Calcium 7.9 L (8.6-10.4) mg/dl Phosphorus 2.7 (2.5-4.5) mg/dL Magnesium 2.1 (1.6-2.3) mg/dL Total Bilirubin 0.7 (0.2-1.3) mg/dL AST 27 (17-59) U/L ALT 25 (21-72) U/L Alkaline Phosphatase 85 (38-126) U/L Total Protein 5.3 L (6.3-8.3) g/dL Albumin 2.5 L (3.5-5.0) g/dL Globulin 2.8 (2.2-3.9) gm/dL Albumin/Globulin Ratio 0.9 L (1.0-2.1) 02/15/18 02/15/18 02/15/18 Range/Units 06:24 05:27 05:12 WBC 4.0 L (4.8-10.8) K/uL RBC 3.20 L (4.40-5.90) Mil/uL Hgb 10.2 L (12.0-18.0) g/dL Hct 30.0 L (35.0-51.0) % MCV 94.0 (80.0-94.0) fL MCH 31.8 H (27.0-31.0) pg MCHC 33.8 (33.0-37.0) g/dL RDW 13.0 (11.5-14.5) % Plt Count 100 L (130-400) K/uL MPV 11.9 H (7.2-11.7) fL Neut % (Auto) 53.4 (50.0-75.0) % Lymph % (Auto) 31.9 (20.0-40.0) % Beckham % (Auto) 9.8 (0.0-10.0) % Eos % (Auto) 4.5 H (0.0-4.0) % Baso % (Auto) 0.4 (0.0-2.0) % Neut # (Auto) 2.1 (1.8-7.0) K/uL Lymph # (Auto) 1.3 (1.0-4.3) K/uL Beckham # (Auto) 0.4 (0.0-0.8) K/uL Eos # (Auto) 0.2 (0.0-0.7) K/uL Baso # (Auto) 0.0 (0.0-0.2) K/uL PT (9.7-12.2) SECONDS INR APTT (21-34) SECONDS Puncture Site Rb pCO2 39 (35-45) mm/Hg pO2 113 H (80-100) mm/Hg HCO3 32.7 H (21-28) mmol/L ABG pH 7.54 H (7.35-7.45) ABG Total CO2 34.5 H (22-28) mmol/L ABG O2 Saturation 99.2 H (95-98) % ABG Base Excess 10.0 H (-2.0-3.0) mmol/L ABG Hemoglobin 10.8 L (11.7-17.4) g/dL ABG Carboxyhemoglobin 1.8 H (0.5-1.5) % POC ABG HHb (Measured) 0.8 (0.0-5.0) % ABG Methemoglobin 1.2 (0.0-3.0) % Jamey Test Na A-a O2 Difference 195.0 mm/Hg Respiratory Index 1.7 Hgb O2 Saturation 96.2 (95.0-98.0) % Vent Mode Prvc Mechanical Rate 15 FiO2 50.0 % Tidal Volume 400 PEEP 5 Sodium (132-148) mmol/L Potassium (3.6-5.2) mmol/L Chloride (98-107) mmol/L Carbon Dioxide (22-30) mmol/L Anion Gap (10-20) BUN (9-20) mg/dL Creatinine (0.8-1.5) mg/dL Est GFR ( Amer) Est GFR (Non-Af Amer) POC Glucose (mg/dL) 308 H (65-110) mg/dL Random Glucose (75-110) mg/dL Calcium (8.6-10.4) mg/dl Phosphorus (2.5-4.5) mg/dL Magnesium (1.6-2.3) mg/dL Total Bilirubin (0.2-1.3) mg/dL AST (17-59) U/L ALT (21-72) U/L Alkaline Phosphatase (38-126) U/L Total Protein (6.3-8.3) g/dL Albumin (3.5-5.0) g/dL Globulin (2.2-3.9) gm/dL Albumin/Globulin Ratio (1.0-2.1) 02/15/18 02/14/18 Range/Units 00:05 17:41 WBC (4.8-10.8) K/uL RBC (4.40-5.90) Mil/uL Hgb (12.0-18.0) g/dL Hct (35.0-51.0) % MCV (80.0-94.0) fL MCH (27.0-31.0) pg MCHC (33.0-37.0) g/dL RDW (11.5-14.5) % Plt Count (130-400) K/uL MPV (7.2-11.7) fL Neut % (Auto) (50.0-75.0) % Lymph % (Auto) (20.0-40.0) % Beckham % (Auto) (0.0-10.0) % Eos % (Auto) (0.0-4.0) % Baso % (Auto) (0.0-2.0) % Neut # (Auto) (1.8-7.0) K/uL Lymph # (Auto) (1.0-4.3) K/uL Beckham # (Auto) (0.0-0.8) K/uL Eos # (Auto) (0.0-0.7) K/uL Baso # (Auto) (0.0-0.2) K/uL PT (9.7-12.2) SECONDS INR APTT (21-34) SECONDS Puncture Site pCO2 (35-45) mm/Hg pO2 (80-100) mm/Hg HCO3 (21-28) mmol/L ABG pH (7.35-7.45) ABG Total CO2 (22-28) mmol/L ABG O2 Saturation (95-98) % ABG Base Excess (-2.0-3.0) mmol/L ABG Hemoglobin (11.7-17.4) g/dL ABG Carboxyhemoglobin (0.5-1.5) % POC ABG HHb (Measured) (0.0-5.0) % ABG Methemoglobin (0.0-3.0) % Jamey Test A-a O2 Difference mm/Hg Respiratory Index Hgb O2 Saturation (95.0-98.0) % Vent Mode Mechanical Rate FiO2 % Tidal Volume PEEP Sodium (132-148) mmol/L Potassium (3.6-5.2) mmol/L Chloride (98-107) mmol/L Carbon Dioxide (22-30) mmol/L Anion Gap (10-20) BUN (9-20) mg/dL Creatinine (0.8-1.5) mg/dL Est GFR ( Amer) Est GFR (Non-Af Amer) POC Glucose (mg/dL) 266 H 250 H (65-110) mg/dL Random Glucose (75-110) mg/dL Calcium (8.6-10.4) mg/dl Phosphorus (2.5-4.5) mg/dL Magnesium (1.6-2.3) mg/dL Total Bilirubin (0.2-1.3) mg/dL AST (17-59) U/L ALT (21-72) U/L Alkaline Phosphatase (38-126) U/L Total Protein (6.3-8.3) g/dL Albumin (3.5-5.0) g/dL Globulin (2.2-3.9) gm/dL Albumin/Globulin Ratio (1.0-2.1) Laboratory Results - last 24 hr 02/14/18 02/15/18 02/15/18 17:41 00:05 05:12 WBC RBC Hgb Hct MCV MCH MCHC RDW Plt Count MPV Neut % (Auto) Lymph % (Auto) Beckham % (Auto) Eos % (Auto) Baso % (Auto) Neut # (Auto) Lymph # (Auto) Beckham # (Auto) Eos # (Auto) Baso # (Auto) PT INR APTT Puncture Site pCO2 pO2 HCO3 ABG pH ABG Total CO2 ABG O2 Saturation ABG Base Excess ABG Hemoglobin ABG Carboxyhemoglobin POC ABG HHb (Measured) ABG Methemoglobin Jamey Test A-a O2 Difference Respiratory Index Hgb O2 Saturation Vent Mode Mechanical Rate FiO2 Tidal Volume PEEP Sodium Potassium Chloride Carbon Dioxide Anion Gap BUN Creatinine Est GFR ( Amer) Est GFR (Non-Af Amer) POC Glucose (mg/dL) 250 H 266 H 308 H Random Glucose Calcium Phosphorus Magnesium Total Bilirubin AST ALT Alkaline Phosphatase Total Protein Albumin Globulin Albumin/Globulin Ratio 02/15/18 02/15/18 02/15/18 05:27 06:24 06:24 WBC 4.0 L RBC 3.20 L Hgb 10.2 L Hct 30.0 L MCV 94.0 MCH 31.8 H MCHC 33.8 RDW 13.0 Plt Count 100 L MPV 11.9 H Neut % (Auto) 53.4 Lymph % (Auto) 31.9 Beckham % (Auto) 9.8 Eos % (Auto) 4.5 H Baso % (Auto) 0.4 Neut # (Auto) 2.1 Lymph # (Auto) 1.3 Beckham # (Auto) 0.4 Eos # (Auto) 0.2 Baso # (Auto) 0.0 PT INR APTT Puncture Site Rb pCO2 39 pO2 113 H HCO3 32.7 H ABG pH 7.54 H ABG Total CO2 34.5 H ABG O2 Saturation 99.2 H ABG Base Excess 10.0 H ABG Hemoglobin 10.8 L ABG Carboxyhemoglobin 1.8 H POC ABG HHb (Measured) 0.8 ABG Methemoglobin 1.2 Jamey Test Na A-a O2 Difference 195.0 Respiratory Index 1.7 Hgb O2 Saturation 96.2 Vent Mode Prvc Mechanical Rate 15 FiO2 50.0 Tidal Volume 400 PEEP 5 Sodium 137 Potassium 4.0 Chloride 99 Carbon Dioxide 30 Anion Gap 12 BUN 19 Creatinine 0.8 Est GFR ( Amer) > 60 Est GFR (Non-Af Amer) > 60 POC Glucose (mg/dL) Random Glucose 269 H Calcium 7.9 L Phosphorus 2.7 Magnesium 2.1 Total Bilirubin 0.7 AST 27 ALT 25 Alkaline Phosphatase 85 Total Protein 5.3 L Albumin 2.5 L Globulin 2.8 Albumin/Globulin Ratio 0.9 L 02/15/18 02/15/18 06:24 11:33 WBC RBC Hgb Hct MCV MCH MCHC RDW Plt Count MPV Neut % (Auto) Lymph % (Auto) Beckham % (Auto) Eos % (Auto) Baso % (Auto) Neut # (Auto) Lymph # (Auto) Beckham # (Auto) Eos # (Auto) Baso # (Auto) PT 12.6 H D INR 1.1 D APTT 32 D Puncture Site pCO2 pO2 HCO3 ABG pH ABG Total CO2 ABG O2 Saturation ABG Base Excess ABG Hemoglobin ABG Carboxyhemoglobin POC ABG HHb (Measured) ABG Methemoglobin Jamey Test A-a O2 Difference Respiratory Index Hgb O2 Saturation Vent Mode Mechanical Rate FiO2 Tidal Volume PEEP Sodium Potassium Chloride Carbon Dioxide Anion Gap BUN Creatinine Est GFR ( Amer) Est GFR (Non-Af Amer) POC Glucose (mg/dL) 226 H Random Glucose Calcium Phosphorus Magnesium Total Bilirubin AST ALT Alkaline Phosphatase Total Protein Albumin Globulin Albumin/Globulin Ratio Fingerstick Blood Sugar Results: 269 Critical Care Progress Note - Nutrition Nutrition: Nutrition Category Date Time Status NPO Diet [DIET] Diets 02/14/18 Breakfast Active Assessment/Plan - Assessment and Plan (Free Text) Assessment: 67 year old male with a past medical history of type 2 dm, hypertension, cva, s/ p cabg (8yrs ago), hyperlipidemia who was admitted to the ICU after being found unresponsive by daughter. Patient subsequently had a witnessed seizure while in the hospital and was transferred to the ICU for further monitoring. While in the ICU patient was extubated and downgraded to the floors. While on the floors , patient desat low 80s, reintubated for acute respiratory failure. Brought back to the ICU. -Patient is awake and alert, lethargic likely 2/2 sedation -CXR 02/15: the patchy coalescent left basal opacities inferred retrocardiac are similar in appearance with similar costophrenic angle small pleural effusion and or thickening. Cardiomegaly, right hilar prominence. -CXR 02/14: small left pleural effusion, moderate venous congestion, right hilar prominence, L basilar airspace opacity -Continue Keppra 500mg IV Q12H -Ativan 2mg Q3H prn agitation -Continue antibiotics: Cefepime 2gm Q12H, Vancomycin 1gm Q48H, Acyclovir 750mg IV Q12H -Will discuss with Infectious Disease if antibiotics need to be continued -Patient with Saddle PE, was on heparin drip but discontinued due to thrombocytopenia -Eliquis 10mg PO BID (to continue for one week, then 5mg PO BID) - on hold at this time -HIT workup negative - reviewed labs with Dr Woo SRA which is the confirmatory test is negative -Platelet count improving -Will discontinue Argotroban and restart heparin drip -Patient for IVC filter placement tomorrow -Protonix 40mg IVP daily -Constipation: Miralax 17gm x 1 dose, Colace 100mg PO BID -Continue PT/OT -Patient may need trach -Continue to monitor in the ICU -Plan discussed with Dr Berkowitz <Chong Berkowitz - Last Filed: 02/15/18 18:57> CCU Objective - Vital Signs / Intake & Output Vital Signs (Last 4 hours): Vital Signs Temp Pulse Resp BP Pulse Ox 02/15/18 18:14 68 15 72/36 L 99 02/15/18 18:12 67 15 69/35 L 99 02/15/18 18:04 108/56 L 02/15/18 18:00 69 15 99 02/15/18 17:12 76 10 L 108/66 100 02/15/18 17:00 74 19 100 02/15/18 16:12 73 18 98/68 L 100 02/15/18 16:00 99.0 F 76 13 100 02/15/18 15:03 68 23 111/63 100 02/15/18 15:00 68 20 100 Intake and Output (Last 8hrs): Intake & Output 02/15/18 02/15/18 02/15/18 06:59 14:59 22:59 Intake Total 281.6 385.0 170.0 Output Total 950 600 350 Balance -668.4 -215.0 -180.0 Weight 213 lb 9 oz Intake: IV 0 Intake, IV Amount 111.6 385.0 170.0 Left Distal Port Internal 11.6 0 Jugular Left Medial Port Internal 35.0 70.0 Jugular Left Proximal Port 100 350 100 Internal Jugular Oral 120 Tube Feeding 50 0 Output: Urine 950 600 350 2-way Urethral 950 600 350 Other: # Bowel Movements 1 - Medications Active Medications: Active Medications Generic Name Dose Route Start Last Admin Trade Name Freq PRN Reason Stop Dose Admin Acetaminophen 650 mg 01/19/18 00:50 02/05/18 20:48 Tylenol 650mg/20.3ml Solution Ud NG 650 mg Q6 PRN Administration GIVE FOR TEMP. 100*F OR ABOVE Acetylcysteine 4 ml 02/12/18 20:00 02/14/18 20:23 Acetylcysteine 20% INH 4 ml RQ12 SHINE Administration Albuterol/Ipratropium 3 ml 01/26/18 20:00 02/15/18 14:15 Duoneb 3 Mg/0.5 Mg (3 Ml) Ud INH 3 ml RQ6 SHINE Administration Apixaban 10 mg 02/09/18 18:00 02/13/18 10:04 Eliquis PO 02/16/18 18:01 10 mg BID SHINE Administration Aspirin 81 mg 01/17/18 10:00 02/15/18 12:09 Aspirin Chewable PO 81 mg DAILY SHINE Administration Carvedilol 12.5 mg 01/22/18 09:07 02/15/18 18:04 Coreg PO 12.5 mg BID SHINE Administration Docusate Sodium 100 mg 02/15/18 18:00 02/15/18 18:11 Colace PO 100 mg BID SHINE Administration Hydralazine HCl 100 mg 02/03/18 00:29 02/15/18 13:39 Apresoline PO Not Given Q8 SHINE Levetiracetam 500 mg/ Dextrose 55 mls @ 420 mls/hr 02/08/18 22:00 02/15/18 09 :20 IVPB 420 mls/hr Q12H SHINE Administration Vancomycin HCl 1 gm/ Dextrose 250 mls @ 166.7 mls/hr 02/08/18 19:30 02/14/18 18:30 IVPB 166.7 mls/hr Q48H [facility] Administration Protocol Acyclovir 750 mg/ Dextrose 250 mls @ 100 mls/hr 02/08/18 20:00 02/15/18 07:51 IV 100 mls/hr Q12H SHINE Administration Protocol Cefepime HCl 2 gm in 100 mls @ 200 mls/hr 02/14/18 07:00 02/15/18 18:04 Maxipime Iv 2 Gm Premix IVPB 02/19/18 07:01 200 mls/hr Q12H SHINE Administration Protocol Heparin Sodium/Sodium Chloride 25,000 units in 250 mls @ 13.498 mls/hr 11:54 02/15/18 12:15 Heparin 39693 Units/250ml 1/2 Normal Saline IV 18 u/kg/hr .[id number] PRN 17.355 mls/hr ADJUST RATE PER PROTOCOL Titration Protocol 14 U/KG/HR Insulin Aspart 0 unit 02/09/18 18:56 02/15/18 18:05 Novolog SC 2 unit Q6 SHINE Administration Protocol Insulin Glargine 20 unit 02/09/18 08:00 02/15/18 12:12 Lantus SC Not Given Q12H SHINE Lorazepam 2 mg 02/14/18 14:07 02/15/18 07:57 Ativan IVP 2 mg Q3H PRN Administration Anxiety Pantoprazole Sodium 40 mg 02/13/18 11:30 02/15/18 09:19 Protonix Inj IVP 40 mg DAILY SHINE Administration Tamsulosin HCl 0.4 mg 01/30/18 20:00 02/15/18 12:10 Flomax PO 0.4 mg DAILY SHINE Administration - Patient Studies Lab Studies: Lab Studies 02/15/18 02/15/18 02/15/18 Range/Units 17:41 11:33 06:24 WBC (4.8-10.8) K/uL RBC (4.40-5.90) Mil/uL Hgb (12.0-18.0) g/dL Hct (35.0-51.0) % MCV (80.0-94.0) fL MCH (27.0-31.0) pg MCHC (33.0-37.0) g/dL RDW (11.5-14.5) % Plt Count (130-400) K/uL MPV (7.2-11.7) fL Neut % (Auto) (50.0-75.0) % Lymph % (Auto) (20.0-40.0) % Beckham % (Auto) (0.0-10.0) % Eos % (Auto) (0.0-4.0) % Baso % (Auto) (0.0-2.0) % Neut # (Auto) (1.8-7.0) K/uL Lymph # (Auto) (1.0-4.3) K/uL Beckham # (Auto) (0.0-0.8) K/uL Eos # (Auto) (0.0-0.7) K/uL Baso # (Auto) (0.0-0.2) K/uL PT 12.6 H D (9.7-12.2) SECONDS INR 1.1 D APTT 32 D (21-34) SECONDS Puncture Site pCO2 (35-45) mm/Hg pO2 (80-100) mm/Hg HCO3 (21-28) mmol/L ABG pH (7.35-7.45) ABG Total CO2 (22-28) mmol/L ABG O2 Saturation (95-98) % ABG Base Excess (-2.0-3.0) mmol/L ABG Hemoglobin (11.7-17.4) g/dL ABG Carboxyhemoglobin (0.5-1.5) % POC ABG HHb (Measured) (0.0-5.0) % ABG Methemoglobin (0.0-3.0) % Jamey Test A-a O2 Difference mm/Hg Respiratory Index Hgb O2 Saturation (95.0-98.0) % Vent Mode Mechanical Rate FiO2 % Tidal Volume PEEP Sodium (132-148) mmol/L Potassium (3.6-5.2) mmol/L Chloride (98-107) mmol/L Carbon Dioxide (22-30) mmol/L Anion Gap (10-20) BUN (9-20) mg/dL Creatinine (0.8-1.5) mg/dL Est GFR ( Amer) Est GFR (Non-Af Amer) POC Glucose (mg/dL) 188 H 226 H (65-110) mg/dL Random Glucose (75-110) mg/dL Calcium (8.6-10.4) mg/dl Phosphorus (2.5-4.5) mg/dL Magnesium (1.6-2.3) mg/dL Total Bilirubin (0.2-1.3) mg/dL AST (17-59) U/L ALT (21-72) U/L Alkaline Phosphatase (38-126) U/L Total Protein (6.3-8.3) g/dL Albumin (3.5-5.0) g/dL Globulin (2.2-3.9) gm/dL Albumin/Globulin Ratio (1.0-2.1) 02/15/18 02/15/18 02/15/18 Range/Units 06:24 06:24 05:27 WBC 4.0 L (4.8-10.8) K/uL RBC 3.20 L (4.40-5.90) Mil/uL Hgb 10.2 L (12.0-18.0) g/dL Hct 30.0 L (35.0-51.0) % MCV 94.0 (80.0-94.0) fL MCH 31.8 H (27.0-31.0) pg MCHC 33.8 (33.0-37.0) g/dL RDW 13.0 (11.5-14.5) % Plt Count 100 L (130-400) K/uL MPV 11.9 H (7.2-11.7) fL Neut % (Auto) 53.4 (50.0-75.0) % Lymph % (Auto) 31.9 (20.0-40.0) % Beckham % (Auto) 9.8 (0.0-10.0) % Eos % (Auto) 4.5 H (0.0-4.0) % Baso % (Auto) 0.4 (0.0-2.0) % Neut # (Auto) 2.1 (1.8-7.0) K/uL Lymph # (Auto) 1.3 (1.0-4.3) K/uL Beckham # (Auto) 0.4 (0.0-0.8) K/uL Eos # (Auto) 0.2 (0.0-0.7) K/uL Baso # (Auto) 0.0 (0.0-0.2) K/uL PT (9.7-12.2) SECONDS INR APTT (21-34) SECONDS Puncture Site Rb pCO2 39 (35-45) mm/Hg pO2 113 H (80-100) mm/Hg HCO3 32.7 H (21-28) mmol/L ABG pH 7.54 H (7.35-7.45) ABG Total CO2 34.5 H (22-28) mmol/L ABG O2 Saturation 99.2 H (95-98) % ABG Base Excess 10.0 H (-2.0-3.0) mmol/L ABG Hemoglobin 10.8 L (11.7-17.4) g/dL ABG Carboxyhemoglobin 1.8 H (0.5-1.5) % POC ABG HHb (Measured) 0.8 (0.0-5.0) % ABG Methemoglobin 1.2 (0.0-3.0) % Jamey Test Na A-a O2 Difference 195.0 mm/Hg Respiratory Index 1.7 Hgb O2 Saturation 96.2 (95.0-98.0) % Vent Mode Prvc Mechanical Rate 15 FiO2 50.0 % Tidal Volume 400 PEEP 5 Sodium 137 (132-148) mmol/L Potassium 4.0 (3.6-5.2) mmol/L Chloride 99 (98-107) mmol/L Carbon Dioxide 30 (22-30) mmol/L Anion Gap 12 (10-20) BUN 19 (9-20) mg/dL Creatinine 0.8 (0.8-1.5) mg/dL Est GFR ( Amer) > 60 Est GFR (Non-Af Amer) > 60 POC Glucose (mg/dL) (65-110) mg/dL Random Glucose 269 H (75-110) mg/dL Calcium 7.9 L (8.6-10.4) mg/dl Phosphorus 2.7 (2.5-4.5) mg/dL Magnesium 2.1 (1.6-2.3) mg/dL Total Bilirubin 0.7 (0.2-1.3) mg/dL AST 27 (17-59) U/L ALT 25 (21-72) U/L Alkaline Phosphatase 85 (38-126) U/L Total Protein 5.3 L (6.3-8.3) g/dL Albumin 2.5 L (3.5-5.0) g/dL Globulin 2.8 (2.2-3.9) gm/dL Albumin/Globulin Ratio 0.9 L (1.0-2.1) 02/15/18 02/15/18 Range/Units 05:12 00:05 WBC (4.8-10.8) K/uL RBC (4.40-5.90) Mil/uL Hgb (12.0-18.0) g/dL Hct (35.0-51.0) % MCV (80.0-94.0) fL MCH (27.0-31.0) pg MCHC (33.0-37.0) g/dL RDW (11.5-14.5) % Plt Count (130-400) K/uL MPV (7.2-11.7) fL Neut % (Auto) (50.0-75.0) % Lymph % (Auto) (20.0-40.0) % Beckham % (Auto) (0.0-10.0) % Eos % (Auto) (0.0-4.0) % Baso % (Auto) (0.0-2.0) % Neut # (Auto) (1.8-7.0) K/uL Lymph # (Auto) (1.0-4.3) K/uL Beckham # (Auto) (0.0-0.8) K/uL Eos # (Auto) (0.0-0.7) K/uL Baso # (Auto) (0.0-0.2) K/uL PT (9.7-12.2) SECONDS INR APTT (21-34) SECONDS Puncture Site pCO2 (35-45) mm/Hg pO2 (80-100) mm/Hg HCO3 (21-28) mmol/L ABG pH (7.35-7.45) ABG Total CO2 (22-28) mmol/L ABG O2 Saturation (95-98) % ABG Base Excess (-2.0-3.0) mmol/L ABG Hemoglobin (11.7-17.4) g/dL ABG Carboxyhemoglobin (0.5-1.5) % POC ABG HHb (Measured) (0.0-5.0) % ABG Methemoglobin (0.0-3.0) % Jamey Test A-a O2 Difference mm/Hg Respiratory Index Hgb O2 Saturation (95.0-98.0) % Vent Mode Mechanical Rate FiO2 % Tidal Volume PEEP Sodium (132-148) mmol/L Potassium (3.6-5.2) mmol/L Chloride (98-107) mmol/L Carbon Dioxide (22-30) mmol/L Anion Gap (10-20) BUN (9-20) mg/dL Creatinine (0.8-1.5) mg/dL Est GFR ( Amer) Est GFR (Non-Af Amer) POC Glucose (mg/dL) 308 H 266 H (65-110) mg/dL Random Glucose (75-110) mg/dL Calcium (8.6-10.4) mg/dl Phosphorus (2.5-4.5) mg/dL Magnesium (1.6-2.3) mg/dL Total Bilirubin (0.2-1.3) mg/dL AST (17-59) U/L ALT (21-72) U/L Alkaline Phosphatase (38-126) U/L Total Protein (6.3-8.3) g/dL Albumin (3.5-5.0) g/dL Globulin (2.2-3.9) gm/dL Albumin/Globulin Ratio (1.0-2.1) Laboratory Results - last 24 hr 02/15/18 02/15/18 02/15/18 00:05 05:12 05:27 WBC RBC Hgb Hct MCV MCH MCHC RDW Plt Count MPV Neut % (Auto) Lymph % (Auto) Beckham % (Auto) Eos % (Auto) Baso % (Auto) Neut # (Auto) Lymph # (Auto) Beckham # (Auto) Eos # (Auto) Baso # (Auto) PT INR APTT Puncture Site Rb pCO2 39 pO2 113 H HCO3 32.7 H ABG pH 7.54 H ABG Total CO2 34.5 H ABG O2 Saturation 99.2 H ABG Base Excess 10.0 H ABG Hemoglobin 10.8 L ABG Carboxyhemoglobin 1.8 H POC ABG HHb (Measured) 0.8 ABG Methemoglobin 1.2 Jamey Test Na A-a O2 Difference 195.0 Respiratory Index 1.7 Hgb O2 Saturation 96.2 Vent Mode Prvc Mechanical Rate 15 FiO2 50.0 Tidal Volume 400 PEEP 5 Sodium Potassium Chloride Carbon Dioxide Anion Gap BUN Creatinine Est GFR ( Amer) Est GFR (Non-Af Amer) POC Glucose (mg/dL) 266 H 308 H Random Glucose Calcium Phosphorus Magnesium Total Bilirubin AST ALT Alkaline Phosphatase Total Protein Albumin Globulin Albumin/Globulin Ratio 02/15/18 02/15/18 02/15/18 06:24 06:24 06:24 WBC 4.0 L RBC 3.20 L Hgb 10.2 L Hct 30.0 L MCV 94.0 MCH 31.8 H MCHC 33.8 RDW 13.0 Plt Count 100 L MPV 11.9 H Neut % (Auto) 53.4 Lymph % (Auto) 31.9 Beckham % (Auto) 9.8 Eos % (Auto) 4.5 H Baso % (Auto) 0.4 Neut # (Auto) 2.1 Lymph # (Auto) 1.3 Beckham # (Auto) 0.4 Eos # (Auto) 0.2 Baso # (Auto) 0.0 PT 12.6 H D INR 1.1 D APTT 32 D Puncture Site pCO2 pO2 HCO3 ABG pH ABG Total CO2 ABG O2 Saturation ABG Base Excess ABG Hemoglobin ABG Carboxyhemoglobin POC ABG HHb (Measured) ABG Methemoglobin Jamey Test A-a O2 Difference Respiratory Index Hgb O2 Saturation Vent Mode Mechanical Rate FiO2 Tidal Volume PEEP Sodium 137 Potassium 4.0 Chloride 99 Carbon Dioxide 30 Anion Gap 12 BUN 19 Creatinine 0.8 Est GFR ( Amer) > 60 Est GFR (Non-Af Amer) > 60 POC Glucose (mg/dL) Random Glucose 269 H Calcium 7.9 L Phosphorus 2.7 Magnesium 2.1 Total Bilirubin 0.7 AST 27 ALT 25 Alkaline Phosphatase 85 Total Protein 5.3 L Albumin 2.5 L Globulin 2.8 Albumin/Globulin Ratio 0.9 L 02/15/18 02/15/18 11:33 17:41 WBC RBC Hgb Hct MCV MCH MCHC RDW Plt Count MPV Neut % (Auto) Lymph % (Auto) Beckham % (Auto) Eos % (Auto) Baso % (Auto) Neut # (Auto) Lymph # (Auto) Beckham # (Auto) Eos # (Auto) Baso # (Auto) PT INR APTT Puncture Site pCO2 pO2 HCO3 ABG pH ABG Total CO2 ABG O2 Saturation ABG Base Excess ABG Hemoglobin ABG Carboxyhemoglobin POC ABG HHb (Measured) ABG Methemoglobin Jamey Test A-a O2 Difference Respiratory Index Hgb O2 Saturation Vent Mode Mechanical Rate FiO2 Tidal Volume PEEP Sodium Potassium Chloride Carbon Dioxide Anion Gap BUN Creatinine Est GFR ( Amer) Est GFR (Non-Af Amer) POC Glucose (mg/dL) 226 H 188 H Random Glucose Calcium Phosphorus Magnesium Total Bilirubin AST ALT Alkaline Phosphatase Total Protein Albumin Globulin Albumin/Globulin Ratio Critical Care Progress Note - Nutrition Nutrition: Nutrition Category Date Time Status NPO Diet [DIET] Diets 02/14/18 Breakfast Active Assessment/Plan (1) Acute respiratory failure with hypoxia Current Visit: Yes Status: Acute Comment: Hypoxic respiratory failrue sec to Acute PE, plus AMS Fulll vent support Continue current vent sitting to keep spo2 >92, CPAP trials as tolerates Not awake to extubate currently (2) Acute saddle pulmonary embolism Current Visit: Yes Status: Acute Comment: I started the patient on Heparin drip Moniotor PTT ECHO Monirot for any bleeding (3) Altered mental status Current Visit: Yes Status: Acute (4) Encephalopathy Current Visit: Yes Status: Acute (5) Seizure Current Visit: Yes Status: Acute Comment: Continue antiseizure medicines (6) Sepsis Current Visit: Yes Status: Acute Comment: Continue antibiotics Follow up Cultures, ABG and chest x-ray (7) COPD (chronic obstructive pulmonary disease) Current Visit: No Status: Acute (8) Congestive heart failure Current Visit: No Status: Acute (9) CKD (chronic kidney disease) Current Visit: Yes Status: Acute Attending/Attestation - Attestation I have personally seen and examined this patient.: Yes I have fully participated in the care of the patient.: Yes I have reviewed all pertinent clinical information: Yes Notes (Text): 02/15/18 18:57 Today: January The Patient was seen and examined at the bedside, Medical records reviewed, and management issues were discussed and formulated with the house staff. I have reviewed all the relevant clinical, laboratory, hemodynamic, radiographic data and medications Events reviewed Pain issues, skin care, head of the bed elevation, glycemic control were addressed. Agree with above resident's assessment and treatment plans of care as transcribed in Dr. Castañeda note.
[2018-02-15] MEDS: Heparin25000 units/250ml 1/2NS 25,000 UNITS/250 ML BAG IV PRN (12:11)
[2018-02-15] MEDS: (Lantus) Insulin Glargine, Recombinant SC SCH ×2 (12:12→20:07)
[2018-02-15] MEDS: Argatroban 250 MG in Dextrose 5% In Water 250 ML IV SCH (14:46)
--- NOTE | 2018-02-15 17:26 | CP.PCM.PN ---
Subjective - Date & Time of Evaluation Date of Evaluation: 02/15/18 Time of Evaluation: 08:00 - Subjective Subjective: opens eyes to verbal stimuli but not following simple commands. Moving all extremities. For peg tube placement this morning by GI. Pateint with lower extremity DVT, plan for IVC filter tomorrow by surgery. Objective - Vital Signs/Intake and Output Vital Signs (last 24 hours): Temp Pulse Resp BP Pulse Ox 99.0 F 76 13 111/63 100 02/15/18 16:00 02/15/18 16:00 02/15/18 16:00 02/15/18 15:03 02/15/18 16:00 Intake and Output: 02/15/18 02/15/18 06:59 18:59 Intake Total 1322.0 404.4 Output Total 1400 750 Balance -78.0 -345.6 - Medications Medications: Current Medications Acetaminophen (Tylenol 650mg/20.3ml Solution Ud) 650 mg NG Q6 PRN PRN Reason: GIVE FOR TEMP. 100*F OR ABOVE Last Admin: 02/05/18 20:48 Dose: 650 mg Acetylcysteine (Acetylcysteine 20%) 4 ml INH RQ12 [facility] Last Admin: 02/14/18 20:23 Dose: 4 ml Albuterol/Ipratropium (Duoneb 3 Mg/0.5 Mg (3 Ml) Ud) 3 ml INH RQ6 [facility] Last Admin: 02/15/18 14:15 Dose: 3 ml Apixaban (Eliquis) 10 mg PO BID [facility] Stop: 02/16/18 18:01 Last Admin: 02/13/18 10:04 Dose: 10 mg Aspirin (Aspirin Chewable) 81 mg PO DAILY [facility] Last Admin: 02/15/18 12:09 Dose: 81 mg Carvedilol (Coreg) 12.5 mg PO BID [facility] Last Admin: 02/15/18 12:10 Dose: 12.5 mg Docusate Sodium (Colace) 100 mg PO BID [facility] Hydralazine HCl (Apresoline) 100 mg PO Q8 [facility] Last Admin: 02/15/18 13:39 Dose: Not Given Levetiracetam 500 mg/ Dextrose 55 mls @ 420 mls/hr IVPB Q12H [facility] Last Admin: 02/15/18 09:20 Dose: 420 mls/hr Vancomycin HCl 1 gm/ Dextrose 250 mls @ 166.7 mls/hr IVPB Q48H [facility] PRN Reason: Protocol Last Admin: 02/14/18 18:30 Dose: 166.7 mls/hr Acyclovir 750 mg/ Dextrose 250 mls @ 100 mls/hr IV Q12H [facility] PRN Reason: Protocol Last Admin: 02/15/18 07:51 Dose: 100 mls/hr Cefepime HCl (Maxipime Iv 2 Gm Premix) 2 gm in 100 mls @ 200 mls/hr IVPB Q12H [facility] PRN Reason: Protocol Stop: 02/19/18 07:01 Last Admin: 02/15/18 06:10 Dose: 200 mls/hr Heparin Sodium/Sodium Chloride (Heparin 02821 Units/250ml 1/2 Normal Saline) 25 ,000 units in 250 mls @ 13.498 mls/hr IV .[id number] PRN; Protocol; 14 U/KG/HR PRN Reason: ADJUST RATE PER PROTOCOL Last Admin: 02/15/18 12:11 Dose: 14 u/kg/hr, 13.498 mls/hr Insulin Aspart (Novolog) 0 unit SC Q6 [facility] PRN Reason: Protocol Last Admin: 02/15/18 12:12 Dose: 4 unit Insulin Glargine (Lantus) 20 unit SC Q12H [facility] Last Admin: 02/15/18 12:12 Dose: Not Given Lorazepam (Ativan) 2 mg IVP Q3H PRN PRN Reason: Anxiety Last Admin: 02/15/18 07:57 Dose: 2 mg Pantoprazole Sodium (Protonix Inj) 40 mg IVP DAILY [facility] Last Admin: 02/15/18 09:19 Dose: 40 mg Tamsulosin HCl (Flomax) 0.4 mg PO DAILY [facility] Last Admin: 02/15/18 12:10 Dose: 0.4 mg - Labs Labs: 02/15/18 06:24 02/15/18 06:24 PT 12.6 SECONDS (9.7-12.2) H D 02/15/18 06:24 INR 1.1 D 02/15/18 06:24 APTT 32 SECONDS (21-34) D 02/15/18 06:24 - Constitutional Appears: Confused, Chronically Ill - Head Exam Head Exam: NORMOCEPHALIC - Eye Exam Eye Exam: absent: Scleral icterus - ENT Exam ENT Exam: Mucous Membranes Dry - Neck Exam Neck Exam: absent: Lymphadenopathy - Respiratory Exam Respiratory Exam: Decreased Breath Sounds - Cardiovascular Exam Cardiovascular Exam: REGULAR RHYTHM - GI/Abdominal Exam GI & Abdominal Exam: Distended, Soft, Tenderness - Rectal Exam Rectal Exam: Deferred - Exam Exam: NORMAL INSPECTION - Extremities Exam Extremities Exam: Pedal Edema - Back Exam Back Exam: absent: CVA tenderness (L), CVA tenderness (R) - Neurological Exam Neurological Exam: Alert, Altered Neuro motor strength exam: Left Upper Extremity: 3, Right Upper Extremity: 3, Left Lower Extremity: 3, Right Lower Extremity: 3 - Skin Skin Exam: Dry Assessment and Plan (1) Sepsis Status: Acute (2) Sepsis Status: Acute (3) COPD (chronic obstructive pulmonary disease) Status: Acute (4) Congestive heart failure Status: Acute (5) Diabetes Status: Acute (6) Encephalopathy Status: Acute
[2018-02-15] MEDS: Acetylcysteine 20% Inhal Soln (4ml) INH SCH (19:35)
--- NOTE | 2018-02-15 23:18 | CP.PCM.PN ---
Subjective - Date & Time of Evaluation Date of Evaluation: 02/15/18 Time of Evaluation: 19:40 - Subjective Subjective: Pt seen and evaluated at bedside Objective - Vital Signs/Intake and Output Vital Signs (last 24 hours): Temp Pulse Resp BP Pulse Ox 97.7 F 87 17 124/65 100 02/15/18 20:00 02/15/18 23:11 02/15/18 23:11 02/15/18 23:12 02/15/18 23:11 Intake and Output: 02/15/18 02/16/18 18:59 06:59 Intake Total 555.0 287.5 Output Total 950 355 Balance -395.0 -67.5 - Medications Medications: Current Medications Acetaminophen (Tylenol 650mg/20.3ml Solution Ud) 650 mg NG Q6 PRN PRN Reason: GIVE FOR TEMP. 100*F OR ABOVE Last Admin: 02/05/18 20:48 Dose: 650 mg Acetylcysteine (Acetylcysteine 20%) 4 ml INH RQ12 [facility] Last Admin: 02/15/18 19:35 Dose: Not Given Albuterol/Ipratropium (Duoneb 3 Mg/0.5 Mg (3 Ml) Ud) 3 ml INH RQ6 [facility] Last Admin: 02/15/18 19:29 Dose: 3 ml Apixaban (Eliquis) 10 mg PO BID [facility] Stop: 02/16/18 18:01 Last Admin: 02/13/18 10:04 Dose: 10 mg Aspirin (Aspirin Chewable) 81 mg PO DAILY [facility] Last Admin: 02/15/18 12:09 Dose: 81 mg Carvedilol (Coreg) 12.5 mg PO BID [facility] Last Admin: 02/15/18 18:04 Dose: 12.5 mg Docusate Sodium (Colace) 100 mg PO BID [facility] Last Admin: 02/15/18 18:11 Dose: 100 mg Hydralazine HCl (Apresoline) 100 mg PO Q8 [facility] Last Admin: 02/15/18 22:19 Dose: 100 mg Levetiracetam 500 mg/ Dextrose 55 mls @ 420 mls/hr IVPB Q12H [facility] Last Admin: 02/15/18 21:56 Dose: 420 mls/hr Vancomycin HCl 1 gm/ Dextrose 250 mls @ 166.7 mls/hr IVPB Q48H [facility] PRN Reason: Protocol Last Admin: 02/14/18 18:30 Dose: 166.7 mls/hr Acyclovir 750 mg/ Dextrose 250 mls @ 100 mls/hr IV Q12H [facility] PRN Reason: Protocol Last Admin: 02/15/18 20:07 Dose: 100 mls/hr Cefepime HCl (Maxipime Iv 2 Gm Premix) 2 gm in 100 mls @ 200 mls/hr IVPB Q12H [facility] PRN Reason: Protocol Stop: 02/19/18 07:01 Last Admin: 02/15/18 18:04 Dose: 200 mls/hr Heparin Sodium/Sodium Chloride (Heparin 30916 Units/250ml 1/2 Normal Saline) 25 ,000 units in 250 mls @ 13.498 mls/hr IV .[id number] PRN; Protocol; 14 U/KG/HR PRN Reason: ADJUST RATE PER PROTOCOL Last Titration: 02/15/18 12:15 Dose: 18 u/kg/hr, 17.355 mls/hr Insulin Aspart (Novolog) 0 unit SC Q6 [facility] PRN Reason: Protocol Last Admin: 02/15/18 18:05 Dose: 2 unit Insulin Glargine (Lantus) 20 unit SC Q12H [facility] Last Admin: 02/15/18 20:07 Dose: 20 u Lorazepam (Ativan) 2 mg IVP Q3H PRN PRN Reason: Anxiety Last Admin: 02/15/18 07:57 Dose: 2 mg Pantoprazole Sodium (Protonix Inj) 40 mg IVP DAILY [facility] Last Admin: 02/15/18 09:19 Dose: 40 mg Tamsulosin HCl (Flomax) 0.4 mg PO DAILY [facility] Last Admin: 02/15/18 12:10 Dose: 0.4 mg - Labs Labs: 02/15/18 06:24 02/15/18 06:24 PT 12.6 SECONDS (9.7-12.2) H D 02/15/18 06:24 INR 1.1 D 02/15/18 06:24 APTT 61 SECONDS (21-34) H D 02/15/18 18:46 Assessment and Plan (1) Status epilepticus Status: Acute (2) COPD (chronic obstructive pulmonary disease) Status: Acute (3) Congestive heart failure Status: Acute (4) Diabetes Status: Acute (5) Hypernatremia Status: Acute (6) Acute respiratory failure Status: Acute (7) Ischemic encephalopathy Status: Acute
[2018-02-16] MEDS: Albuterol-Ipratrop 3 mg / 0.5 (3 ml) UD INH SCH ×4 (01:33→19:25)
[2018-02-16 05:11] LABS: ARTERIAL BLOOD GAS HEMOGLOBIN 14.4 g/dL (11.7-17.4); ARTERIAL BLOOD GAS PCO2 42 mm/Hg (35-45); ARTERIAL BLOOD GAS PH 7.49 (7.35-7.45); ARTERIAL BLOOD GAS PO2 111 mm/Hg (80-100); ARTERIAL BLOOD GAS TCO2 33.3 mmol/L (22-28)
[2018-02-16] MEDS: (Novolog) Insulin Aspart, Recombinant 100 u/ml 10 ml vial SC SCH ×4 (06:05→17:54)
[2018-02-16 06:41] LABS: BASO % 0.5 % (0.0-2.0); EOS # 0.2 K/uL (0.0-0.7); EOS % 5.1 % (0.0-4.0); HEMOGLOBIN 10.6 g/dL (12.0-18.0); LYMPH # 1.4 K/uL (1.0-4.3); LYMPH % 32.1 % (20.0-40.0); MEAN CELL VOLUME 94.1 fL (80.0-94.0); MEAN CORPUSCULAR HEMOGLOBIN 32.1 pg (27.0-31.0); MEAN CORPUSCULAR HGB CONC 34.1 g/dL (33.0-37.0); MEAN PLATELET VOLUME 11.4 fL (7.2-11.7); MONO # 0.4 K/uL (0.0-0.8); MONO % 8.6 % (0.0-10.0); NEUT # 2.3 K/uL (1.8-7.0); NEUT % 53.7 % (50.0-75.0); RBC 3.29 Mil/uL (4.40-5.90); RED CELL DISTRIBUTION WIDTH 12.7 % (11.5-14.5); WHITE BLOOD COUNT 4.3 K/uL (4.8-10.8)
[2018-02-16 06:55] LABS: ALBUMIN 2.7 g/dL (3.5-5.0); ALT/SGPT 26 U/L (21-72); AST/SGOT 22 U/L (17-59); BLOOD UREA NITROGEN 17 mg/dL (9-20); GFR AFRICAN-AMERICAN > 60; GFR NON-AFRICAN AMERICAN > 60
[2018-02-16] MEDS: Cefepime IV 2 gm in Dextrose 2 GM/100 ML BAG IVPB SCH ×2 (07:14→18:01)
[2018-02-16] MEDS ORDERED: Rocuronium 10 mg/ml (10 ml) ONE (07:32)
[2018-02-16] MEDS ORDERED: Midazolam 2 MG/2 ML VIAL ONE (07:33)
[2018-02-16] MEDS ORDERED: Iodixanol 320 MG/ML 200 ML BOTTLE IV ONE (07:36)
[2018-02-16] MEDS ORDERED: HEPARIN-NS 5,000 UNITS/500 ML 5,000 UNIT/500 ML BAG IV ONE (07:36)
[2018-02-16] MEDS: (Lantus) Insulin Glargine, Recombinant SC SCH ×2 (08:00→21:00)
[2018-02-16] MEDS ORDERED: Sodium Chloride 0.9% 1,000 ML IV ONE (08:00)
--- NOTE | 2018-02-16 09:07 | PCM.SURG1 ---
Surgeon's Initial Post Op Note - Surgeon's Notes Surgeon: Dr Giordano Economic Development Coordinator: Dr Lara PGY3 Type of Anesthesia: General Endo Pre-Operative Diagnosis: right peroneal DVT. pulmonary embolus Operative Findings: see report Post-Operative Diagnosis: as above Operation Performed: right femoral catheterization w/ ultrasound guidance. Option IVC filter deployment with flouroscopic guidance Specimen/Specimens Removed: none Estimated Blood Loss: EBL {In ML}: 5 Blood Products Given: N/A Drains Used: No Drains Post-Op Condition: Good Date of Surgery/Procedure: 02/16/18 Time of Surgery/Procedure: 09:07
[2018-02-16] MEDS: ACYCLOVIR IV SCH ×2 (09:15→21:00)
[2018-02-16] MEDS: WATER IV SCH ×2 (09:15→21:00)
[2018-02-16] MEDS: DEXTROSE 5% IV SCH ×2 (09:15→21:00)
[2018-02-16] MEDS: Heparin25000 units/250ml 1/2NS 25,000 UNITS/250 ML BAG IV PRN (09:15)
--- NOTE | 2018-02-16 09:26 | RAD ---
HISTORY: intubated COMPARISON: 02/15/2018. FINDINGS: The endotracheal tube terminates 2 cm proximal to the rianna. The left IJV line terminates in the SVC. LUNGS: Again seen are low lung volumes. There is persistent airspace disease in the right mid lung and lower lobe. Again seen is left retrocardiac opacity. PLEURA: There are small pleural effusions, no pneumothorax apparent. CARDIOVASCULAR: . The cardiomediastinal silhouette is stable. Status post CABG. OSSEOUS STRUCTURES: No significant abnormalities. VISUALIZED UPPER ABDOMEN: Normal. OTHER FINDINGS: None. IMPRESSION: No significant interval change in multifocal airspace disease in the right mid lung, lower lobe and left lower lobe. Small pleural effusions. Endotracheal tube terminates 2 cm proximal to the rianna
[2018-02-16] MEDS: WATER IVPB SCH ×2 (09:35→22:00)
[2018-02-16] MEDS: LEVETIRACETAM IVPB SCH ×2 (09:35→22:00)
[2018-02-16] MEDS: DEXTROSE 5% IVPB SCH ×2 (09:35→22:00)
--- NOTE | 2018-02-16 13:09 | PN ---
DATE: LOCATION: ICU 7. SUBJECTIVE: This is a 67-year-old male post PEG insertion performed yesterday, seen and examined in rounds early today without significant clinical changes, tolerating PEG feeding well. No residual, no bleeding, and no resistance reported. The patient is still on vent. The entire chart is reviewed including, but not limited to, the most recent lab and radiology study results, current and the previous medication list, current and the previous medical events. Case discussed with the staff at length. Most recent lab results showed hemoglobin 10.6, hematocrit 30.9, white blood cells 4.3, with thrombocytopenia of 113. PTT is 99, with abnormal ABGs, blood glucose level 277, calcium 8, albumin 2.7, total protein 5.4. Most recent chest x-ray done today indicative of no significant changes. PHYSICAL EXAMINATION: GENERAL: A 67-year-old male, intubated to vent. VITAL SIGNS: Afebrile, with pulse of 78, blood pressure 100/62. HEENT: Showed pale, dry oral mucous membranes. Nonicteric sclerae. LUNGS: Scattered crepitation. Decreased air entry at bases. HEART: Positive S1 and S2. ABDOMEN: Slight distention, bowel sounds are hypoactive. PEG tube is in place without any reported bleeding, residual or resistance, with clean wound. EXTREMITIES: With edematous changes. No clubbing or cyanosis. NEUROLOGIC: No reported new neurological deficits, sensory or motor. The patient does not follow commands. IMPRESSION: 1. Dysphagia, malnutrition with hypoalbuminemia. 2. Status post percutaneous endoscopic gastrostomy insertion. 3. Recently developed lower extremities deep venous thrombosis for filter insertion today. 4. Known history of seizure disorder with respiratory failure, intubated to vent. 5. History of but not limited to hypertension, coronary artery disease, status post coronary artery bypass graft, diabetes mellitus, with hyperlipidemia. 6. Coagulopathy, drug-induced due to his deep venous thrombosis. SUGGESTIONS: 1. Continue current management. 2. Subsequent increase the rate of the feeding as tolerated. 3. Further recommendations to follow. Jaya Glass MD [facility] # [id number]
--- NOTE | 2018-02-16 13:12 | RAD ---
PROCEDURE: Intraoperative Fluoroscopy. HISTORY: Deep venous thrombosis FINDINGS: Fluoroscopic assistance was provided for IVC filter placement. Please refer to the operative report from STAN Zhou.
[2018-02-16] MEDS: Acetylcysteine 20% Inhal Soln (4ml) INH SCH ×2 (13:39→19:25)
--- NOTE | 2018-02-16 13:55 | OP ---
PROCEDURE DATE: 02/16/2018 PREOPERATIVE DIAGNOSES: Pulmonary embolism, on anticoagulation, deep vein thrombosis, and thrombocytopenia. PROCEDURE CARRIED OUT: Placement of Option Elite filter via right femoral vein with C-arm fluoroscopy, ultrasound-guided puncture and micropuncture technique. SURGEON: Angel Giordano MD PHONE REPRESENTATIVE: Dr. Lara. ANESTHESIA ADMINISTERED BY: Mr. Leslie TYPE OF ANESTHESIA: General anesthesia. The patient is on a ventilator. INDICATIONS: A 67-year-old man with variety of other problems. Filter was inserted because of the PE on anticoagulation. OPERATIVE FINDINGS: Filter was deployed at the level of the renal veins in the vena cava above the confluence of the iliac veins. DESCRIPTION OF PROCEDURE: The patient was given general anesthesia. He was already on a ventilator. The right femoral vein was punctured under ultrasound guidance ____. The guidewire was advanced centrally. This was subsequently exchanged for a 0.035 wire and then the sheath dilator was delivered to the level of the renal veins. The venacavogram was taken on several occasions above the confluence of the iliac veins. Filter was then deployed at the appropriate location. It was in upright position, noted to have a slight tilt to the left, to the patient's right side at the end of the procedure. After this had all been carried out, we then applied pressure to the groin, taking confirmatory venogram confirming it is in the proper position. Blood loss during the procedure was 10 mL. Operation carried out, placement of Option Elite filter via right femoral vein with C-arm fluoroscopy, ultrasound-guided puncture and micropuncture technique. Ultrasound images of the groin showed the vein was 14 mm in diameter with no compressibility and no intraluminal thrombosis. Angel Giordano Jr., MD
--- NOTE | 2018-02-16 14:30 | CP.CCUPN ---
<Amaya Castañeda - Last Filed: 02/16/18 14:53> CCU Subjective - Physician Review Subjective (Free Text): 02/16/18 1200 Patient seen and examined at bedside. Per nursing no acute events overnight. Tube feeds held, patient is going for IVC filter placement today. Will attempt CPAP trial today, if patient does not tolerate, will need to revisit for possible trach. CCU Objective - Vital Signs / Intake & Output Vital Signs (Last 4 hours): Vital Signs Temp Pulse Resp BP Pulse Ox 02/16/18 14:11 82 16 115/57 L 100 02/16/18 13:10 85 12 117/73 100 02/16/18 12:41 87 13 118/50 L 99 02/16/18 12:04 97 H 10 L 133/55 L 100 02/16/18 11:50 98.0 F 87 22 139/69 100 02/16/18 11:20 97.9 F 83 23 126/66 100 02/16/18 11:04 74 15 121/68 100 02/16/18 10:50 97.9 F 74 22 141/71 99 Intake and Output (Last 8hrs): Intake & Output 02/15/18 02/16/18 02/16/18 22:59 06:59 14:59 Intake Total 440.0 122.5 1060.5 Output Total 630 605 665 Balance -190.0 -482.5 395.5 Intake: IV 250 Intake, IV Amount 440.0 122.5 560.5 Left Distal Port Internal 450 Jugular Left Medial Port Internal 140.0 122.5 110.5 Jugular Left Proximal Port 300 Internal Jugular Tube Feeding 250 Output: Urine 630 605 665 2-way Urethral 630 605 665 Stool 0 Other: # Bowel Movements 0 - Physical Exam Head: Positive for: Atraumatic, Normocephalic Pupils: Positive for: PERRL Conjunctiva: Positive for: Normal Mouth: Positive for: Moist Mucous Membranes, Other (ETT) Neck: Positive for: Normal Range of Motion Respiratory/Chest: Positive for: Clear to Auscultation, Good Air Exchange. Negative for: Respiratory Distress Cardiovascular: Positive for: Regular Rate and Rhythm, Normal S1, S2. Negative for: Tachycardic Abdomen: Positive for: Normal Bowel Sounds, Feeding Tubes (+peg tube), Other ( Obese). Negative for: Tenderness, Distention, Peritoneal Signs Upper Extremity: Positive for: Normal Inspection Lower Extremity: Positive for: Normal Inspection Neurological: Positive for: Other (Moves all extremities) Skin: Positive for: Warm, Dry Psychiatric: Positive for: Alert - Medications Active Medications: Active Medications Generic Name Dose Route Start Last Admin Trade Name Freq PRN Reason Stop Dose Admin Acetaminophen 650 mg 01/19/18 00:50 02/05/18 20:48 Tylenol 650mg/20.3ml Solution Ud NG 650 mg Q6 PRN Administration GIVE FOR TEMP. 100*F OR ABOVE Acetylcysteine 4 ml 02/12/18 20:00 02/16/18 13:39 Acetylcysteine 20% INH Not Given RQ12 SHINE Albuterol/Ipratropium 3 ml 01/26/18 20:00 02/16/18 13:38 Duoneb 3 Mg/0.5 Mg (3 Ml) Ud INH 3 ml RQ6 SHINE Administration Apixaban 10 mg 02/09/18 18:00 02/13/18 10:04 Eliquis PO 02/16/18 18:01 10 mg BID SHINE Administration Aspirin 81 mg 01/17/18 10:00 02/16/18 11:23 Aspirin Chewable PO 81 mg DAILY SHINE Administration Carvedilol 12.5 mg 01/22/18 09:07 02/16/18 09:44 Coreg PO 12.5 mg BID SHINE Administration Docusate Sodium 100 mg 02/15/18 18:00 02/16/18 09:44 Colace PO 100 mg BID SHINE Administration Hydralazine HCl 100 mg 02/03/18 00:29 02/16/18 14:18 Apresoline PO Not Given Q8 SHINE Levetiracetam 500 mg/ Dextrose 55 mls @ 420 mls/hr 02/08/18 22:00 02/16/18 09 :35 IVPB 420 mls/hr Q12H SHINE Administration Vancomycin HCl 1 gm/ Dextrose 250 mls @ 166.7 mls/hr 02/08/18 19:30 02/14/18 18:30 IVPB 166.7 mls/hr Q48H SHINE Administration Protocol Acyclovir 750 mg/ Dextrose 250 mls @ 100 mls/hr 02/08/18 20:00 02/16/18 09:15 IV 100 mls/hr Q12H SHINE Administration Protocol Cefepime HCl 2 gm in 100 mls @ 200 mls/hr 02/14/18 07:00 02/16/18 07:14 Maxipime Iv 2 Gm Premix IVPB 02/19/18 07:01 200 mls/hr Q12H SHINE Administration Protocol Heparin Sodium/Sodium Chloride 25,000 units in 250 mls @ 13.498 mls/hr 11:54 02/16/18 09:15 Heparin 20957 Units/250ml 1/2 Normal Saline IV 16 u/kg/hr .[id number] PRN 15.427 mls/hr ADJUST RATE PER PROTOCOL Administration Protocol 14 U/KG/HR Insulin Aspart 0 unit 02/09/18 18:56 02/16/18 11:35 Novolog SC 6 unit Q6 SHINE Administration Protocol Insulin Glargine 20 unit 02/09/18 08:00 02/16/18 08:00 Lantus SC Not Given Q12H SHINE Lorazepam 2 mg 02/14/18 14:07 02/15/18 07:57 Ativan IVP 2 mg Q3H PRN Administration Anxiety Pantoprazole Sodium 40 mg 02/13/18 11:30 02/16/18 09:45 Protonix Inj IVP 40 mg DAILY SHINE Administration Tamsulosin HCl 0.4 mg 01/30/18 20:00 02/16/18 09:44 Flomax PO 0.4 mg DAILY SHINE Administration - Patient Studies Lab Studies: Lab Studies 02/16/18 02/16/18 02/16/18 Range/Units 11:32 08:30 07:42 WBC (4.8-10.8) K/uL RBC (4.40-5.90) Mil/uL Hgb (12.0-18.0) g/dL Hct (35.0-51.0) % MCV (80.0-94.0) fL MCH (27.0-31.0) pg MCHC (33.0-37.0) g/dL RDW (11.5-14.5) % Plt Count (130-400) K/uL MPV (7.2-11.7) fL Neut % (Auto) (50.0-75.0) % Lymph % (Auto) (20.0-40.0) % Taney % (Auto) (0.0-10.0) % Eos % (Auto) (0.0-4.0) % Baso % (Auto) (0.0-2.0) % Neut # (Auto) (1.8-7.0) K/uL Lymph # (Auto) (1.0-4.3) K/uL Taney # (Auto) (0.0-0.8) K/uL Eos # (Auto) (0.0-0.7) K/uL Baso # (Auto) (0.0-0.2) K/uL APTT 99 H D (21-34) SECONDS Puncture Site pCO2 (35-45) mm/Hg pO2 (80-100) mm/Hg HCO3 (21-28) mmol/L ABG pH (7.35-7.45) ABG Total CO2 (22-28) mmol/L ABG O2 Saturation (95-98) % ABG Base Excess (-2.0-3.0) mmol/L ABG Hemoglobin (11.7-17.4) g/dL ABG Carboxyhemoglobin (0.5-1.5) % POC ABG HHb (Measured) (0.0-5.0) % ABG Methemoglobin (0.0-3.0) % Jamey Test A-a O2 Difference mm/Hg Respiratory Index Hgb O2 Saturation (95.0-98.0) % Vent Mode Mechanical Rate FiO2 % Tidal Volume PEEP Sodium (132-148) mmol/L Potassium (3.6-5.2) mmol/L Chloride (98-107) mmol/L Carbon Dioxide (22-30) mmol/L Anion Gap (10-20) BUN (9-20) mg/dL Creatinine (0.8-1.5) mg/dL Est GFR ( Amer) Est GFR (Non-Af Amer) POC Glucose (mg/dL) 289 H 277 H (65-110) mg/dL Random Glucose (75-110) mg/dL Calcium (8.6-10.4) mg/dl Phosphorus (2.5-4.5) mg/dL Magnesium (1.6-2.3) mg/dL Total Bilirubin (0.2-1.3) mg/dL AST (17-59) U/L ALT (21-72) U/L Alkaline Phosphatase (38-126) U/L Total Protein (6.3-8.3) g/dL Albumin (3.5-5.0) g/dL Globulin (2.2-3.9) gm/dL Albumin/Globulin Ratio (1.0-2.1) 02/16/18 02/16/18 02/16/18 Range/Units 06:34 06:34 06:10 WBC 4.3 L (4.8-10.8) K/uL RBC 3.29 L (4.40-5.90) Mil/uL Hgb 10.6 L (12.0-18.0) g/dL Hct 30.9 L (35.0-51.0) % MCV 94.1 H (80.0-94.0) fL MCH 32.1 H (27.0-31.0) pg MCHC 34.1 (33.0-37.0) g/dL RDW 12.7 (11.5-14.5) % Plt Count 113 L (130-400) K/uL MPV 11.4 (7.2-11.7) fL Neut % (Auto) 53.7 (50.0-75.0) % Lymph % (Auto) 32.1 (20.0-40.0) % Taney % (Auto) 8.6 (0.0-10.0) % Eos % (Auto) 5.1 H (0.0-4.0) % Baso % (Auto) 0.5 (0.0-2.0) % Neut # (Auto) 2.3 (1.8-7.0) K/uL Lymph # (Auto) 1.4 (1.0-4.3) K/uL Taney # (Auto) 0.4 (0.0-0.8) K/uL Eos # (Auto) 0.2 (0.0-0.7) K/uL Baso # (Auto) 0.0 (0.0-0.2) K/uL APTT (21-34) SECONDS Puncture Site pCO2 (35-45) mm/Hg pO2 (80-100) mm/Hg HCO3 (21-28) mmol/L ABG pH (7.35-7.45) ABG Total CO2 (22-28) mmol/L ABG O2 Saturation (95-98) % ABG Base Excess (-2.0-3.0) mmol/L ABG Hemoglobin (11.7-17.4) g/dL ABG Carboxyhemoglobin (0.5-1.5) % POC ABG HHb (Measured) (0.0-5.0) % ABG Methemoglobin (0.0-3.0) % Jamey Test A-a O2 Difference mm/Hg Respiratory Index Hgb O2 Saturation (95.0-98.0) % Vent Mode Mechanical Rate FiO2 % Tidal Volume PEEP Sodium 137 (132-148) mmol/L Potassium 4.1 (3.6-5.2) mmol/L Chloride 100 (98-107) mmol/L Carbon Dioxide 28 (22-30) mmol/L Anion Gap 13 (10-20) BUN 17 (9-20) mg/dL Creatinine 0.9 (0.8-1.5) mg/dL Est GFR ( Amer) > 60 Est GFR (Non-Af Amer) > 60 POC Glucose (mg/dL) 240 H (65-110) mg/dL Random Glucose 259 H (75-110) mg/dL Calcium 8.0 L (8.6-10.4) mg/dl Phosphorus 3.2 (2.5-4.5) mg/dL Magnesium 2.0 (1.6-2.3) mg/dL Total Bilirubin 0.9 (0.2-1.3) mg/dL AST 22 (17-59) U/L ALT 26 (21-72) U/L Alkaline Phosphatase 82 (38-126) U/L Total Protein 5.4 L (6.3-8.3) g/dL Albumin 2.7 L (3.5-5.0) g/dL Globulin 2.7 (2.2-3.9) gm/dL Albumin/Globulin Ratio 1.0 (1.0-2.1) 02/16/18 02/16/18 02/16/18 Range/Units 05:07 00:38 00:13 WBC (4.8-10.8) K/uL RBC (4.40-5.90) Mil/uL Hgb (12.0-18.0) g/dL Hct (35.0-51.0) % MCV (80.0-94.0) fL MCH (27.0-31.0) pg MCHC (33.0-37.0) g/dL RDW (11.5-14.5) % Plt Count (130-400) K/uL MPV (7.2-11.7) fL Neut % (Auto) (50.0-75.0) % Lymph % (Auto) (20.0-40.0) % Taney % (Auto) (0.0-10.0) % Eos % (Auto) (0.0-4.0) % Baso % (Auto) (0.0-2.0) % Neut # (Auto) (1.8-7.0) K/uL Lymph # (Auto) (1.0-4.3) K/uL Taney # (Auto) (0.0-0.8) K/uL Eos # (Auto) (0.0-0.7) K/uL Baso # (Auto) (0.0-0.2) K/uL APTT 120 H* D (21-34) SECONDS Puncture Site Rba pCO2 42 (35-45) mm/Hg pO2 111 H (80-100) mm/Hg HCO3 31.0 H (21-28) mmol/L ABG pH 7.49 H (7.35-7.45) ABG Total CO2 33.3 H (22-28) mmol/L ABG O2 Saturation 99.0 H (95-98) % ABG Base Excess 7.8 H (-2.0-3.0) mmol/L ABG Hemoglobin 14.4 (11.7-17.4) g/dL ABG Carboxyhemoglobin 1.7 H (0.5-1.5) % POC ABG HHb (Measured) 1.0 (0.0-5.0) % ABG Methemoglobin 1.0 (0.0-3.0) % Jamey Test Na A-a O2 Difference 193.0 mm/Hg Respiratory Index 1.7 Hgb O2 Saturation 96.3 (95.0-98.0) % Vent Mode Prvc Mechanical Rate 15 FiO2 50.0 % Tidal Volume 400 PEEP 5 Sodium (132-148) mmol/L Potassium (3.6-5.2) mmol/L Chloride (98-107) mmol/L Carbon Dioxide (22-30) mmol/L Anion Gap (10-20) BUN (9-20) mg/dL Creatinine (0.8-1.5) mg/dL Est GFR ( Amer) Est GFR (Non-Af Amer) POC Glucose (mg/dL) 228 H (65-110) mg/dL Random Glucose (75-110) mg/dL Calcium (8.6-10.4) mg/dl Phosphorus (2.5-4.5) mg/dL Magnesium (1.6-2.3) mg/dL Total Bilirubin (0.2-1.3) mg/dL AST (17-59) U/L ALT (21-72) U/L Alkaline Phosphatase (38-126) U/L Total Protein (6.3-8.3) g/dL Albumin (3.5-5.0) g/dL Globulin (2.2-3.9) gm/dL Albumin/Globulin Ratio (1.0-2.1) 02/15/18 02/15/18 Range/Units 18:46 17:41 WBC (4.8-10.8) K/uL RBC (4.40-5.90) Mil/uL Hgb (12.0-18.0) g/dL Hct (35.0-51.0) % MCV (80.0-94.0) fL MCH (27.0-31.0) pg MCHC (33.0-37.0) g/dL RDW (11.5-14.5) % Plt Count (130-400) K/uL MPV (7.2-11.7) fL Neut % (Auto) (50.0-75.0) % Lymph % (Auto) (20.0-40.0) % Taney % (Auto) (0.0-10.0) % Eos % (Auto) (0.0-4.0) % Baso % (Auto) (0.0-2.0) % Neut # (Auto) (1.8-7.0) K/uL Lymph # (Auto) (1.0-4.3) K/uL Taney # (Auto) (0.0-0.8) K/uL Eos # (Auto) (0.0-0.7) K/uL Baso # (Auto) (0.0-0.2) K/uL APTT 61 H D (21-34) SECONDS Puncture Site pCO2 (35-45) mm/Hg pO2 (80-100) mm/Hg HCO3 (21-28) mmol/L ABG pH (7.35-7.45) ABG Total CO2 (22-28) mmol/L ABG O2 Saturation (95-98) % ABG Base Excess (-2.0-3.0) mmol/L ABG Hemoglobin (11.7-17.4) g/dL ABG Carboxyhemoglobin (0.5-1.5) % POC ABG HHb (Measured) (0.0-5.0) % ABG Methemoglobin (0.0-3.0) % Jamey Test A-a O2 Difference mm/Hg Respiratory Index Hgb O2 Saturation (95.0-98.0) % Vent Mode Mechanical Rate FiO2 % Tidal Volume PEEP Sodium (132-148) mmol/L Potassium (3.6-5.2) mmol/L Chloride (98-107) mmol/L Carbon Dioxide (22-30) mmol/L Anion Gap (10-20) BUN (9-20) mg/dL Creatinine (0.8-1.5) mg/dL Est GFR ( Amer) Est GFR (Non-Af Amer) POC Glucose (mg/dL) 188 H (65-110) mg/dL Random Glucose (75-110) mg/dL Calcium (8.6-10.4) mg/dl Phosphorus (2.5-4.5) mg/dL Magnesium (1.6-2.3) mg/dL Total Bilirubin (0.2-1.3) mg/dL AST (17-59) U/L ALT (21-72) U/L Alkaline Phosphatase (38-126) U/L Total Protein (6.3-8.3) g/dL Albumin (3.5-5.0) g/dL Globulin (2.2-3.9) gm/dL Albumin/Globulin Ratio (1.0-2.1) Laboratory Results - last 24 hr 02/15/18 02/15/18 02/16/18 17:41 18:46 00:13 WBC RBC Hgb Hct MCV MCH MCHC RDW Plt Count MPV Neut % (Auto) Lymph % (Auto) Taney % (Auto) Eos % (Auto) Baso % (Auto) Neut # (Auto) Lymph # (Auto) Taney # (Auto) Eos # (Auto) Baso # (Auto) APTT 61 H D Puncture Site pCO2 pO2 HCO3 ABG pH ABG Total CO2 ABG O2 Saturation ABG Base Excess ABG Hemoglobin ABG Carboxyhemoglobin POC ABG HHb (Measured) ABG Methemoglobin Jamey Test A-a O2 Difference Respiratory Index Hgb O2 Saturation Vent Mode Mechanical Rate FiO2 Tidal Volume PEEP Sodium Potassium Chloride Carbon Dioxide Anion Gap BUN Creatinine Est GFR ( Amer) Est GFR (Non-Af Amer) POC Glucose (mg/dL) 188 H 228 H Random Glucose Calcium Phosphorus Magnesium Total Bilirubin AST ALT Alkaline Phosphatase Total Protein Albumin Globulin Albumin/Globulin Ratio 02/16/18 02/16/18 02/16/18 00:38 05:07 06:10 WBC RBC Hgb Hct MCV MCH MCHC RDW Plt Count MPV Neut % (Auto) Lymph % (Auto) Taney % (Auto) Eos % (Auto) Baso % (Auto) Neut # (Auto) Lymph # (Auto) Taney # (Auto) Eos # (Auto) Baso # (Auto) APTT 120 H* D Puncture Site Rba pCO2 42 pO2 111 H HCO3 31.0 H ABG pH 7.49 H ABG Total CO2 33.3 H ABG O2 Saturation 99.0 H ABG Base Excess 7.8 H ABG Hemoglobin 14.4 ABG Carboxyhemoglobin 1.7 H POC ABG HHb (Measured) 1.0 ABG Methemoglobin 1.0 Jamey Test Na A-a O2 Difference 193.0 Respiratory Index 1.7 Hgb O2 Saturation 96.3 Vent Mode Prvc Mechanical Rate 15 FiO2 50.0 Tidal Volume 400 PEEP 5 Sodium Potassium Chloride Carbon Dioxide Anion Gap BUN Creatinine Est GFR ( Amer) Est GFR (Non-Af Amer) POC Glucose (mg/dL) 240 H Random Glucose Calcium Phosphorus Magnesium Total Bilirubin AST ALT Alkaline Phosphatase Total Protein Albumin Globulin Albumin/Globulin Ratio 02/16/18 02/16/18 02/16/18 06:34 06:34 07:42 WBC 4.3 L RBC 3.29 L Hgb 10.6 L Hct 30.9 L MCV 94.1 H MCH 32.1 H MCHC 34.1 RDW 12.7 Plt Count 113 L MPV 11.4 Neut % (Auto) 53.7 Lymph % (Auto) 32.1 Taney % (Auto) 8.6 Eos % (Auto) 5.1 H Baso % (Auto) 0.5 Neut # (Auto) 2.3 Lymph # (Auto) 1.4 Taney # (Auto) 0.4 Eos # (Auto) 0.2 Baso # (Auto) 0.0 APTT Puncture Site pCO2 pO2 HCO3 ABG pH ABG Total CO2 ABG O2 Saturation ABG Base Excess ABG Hemoglobin ABG Carboxyhemoglobin POC ABG HHb (Measured) ABG Methemoglobin Jamey Test A-a O2 Difference Respiratory Index Hgb O2 Saturation Vent Mode Mechanical Rate FiO2 Tidal Volume PEEP Sodium 137 Potassium 4.1 Chloride 100 Carbon Dioxide 28 Anion Gap 13 BUN 17 Creatinine 0.9 Est GFR ( Amer) > 60 Est GFR (Non-Af Amer) > 60 POC Glucose (mg/dL) 277 H Random Glucose 259 H Calcium 8.0 L Phosphorus 3.2 Magnesium 2.0 Total Bilirubin 0.9 AST 22 ALT 26 Alkaline Phosphatase 82 Total Protein 5.4 L Albumin 2.7 L Globulin 2.7 Albumin/Globulin Ratio 1.0 02/16/18 02/16/18 08:30 11:32 WBC RBC Hgb Hct MCV MCH MCHC RDW Plt Count MPV Neut % (Auto) Lymph % (Auto) Taney % (Auto) Eos % (Auto) Baso % (Auto) Neut # (Auto) Lymph # (Auto) Taney # (Auto) Eos # (Auto) Baso # (Auto) APTT 99 H D Puncture Site pCO2 pO2 HCO3 ABG pH ABG Total CO2 ABG O2 Saturation ABG Base Excess ABG Hemoglobin ABG Carboxyhemoglobin POC ABG HHb (Measured) ABG Methemoglobin Jamey Test A-a O2 Difference Respiratory Index Hgb O2 Saturation Vent Mode Mechanical Rate FiO2 Tidal Volume PEEP Sodium Potassium Chloride Carbon Dioxide Anion Gap BUN Creatinine Est GFR ( Amer) Est GFR (Non-Af Amer) POC Glucose (mg/dL) 289 H Random Glucose Calcium Phosphorus Magnesium Total Bilirubin AST ALT Alkaline Phosphatase Total Protein Albumin Globulin Albumin/Globulin Ratio Fingerstick Blood Sugar Results: 289 Critical Care Progress Note - Nutrition Nutrition: Nutrition Category Date Time Status NPO Diet [DIET] Diets 02/14/18 Breakfast Active Assessment/Plan - Assessment and Plan (Free Text) Assessment: 67 year old male with a past medical history of type 2 dm, hypertension, cva, s/ p cabg (8yrs ago), hyperlipidemia who was admitted to the ICU after being found unresponsive by daughter. Patient subsequently had a witnessed seizure while in the hospital and was transferred to the ICU for further monitoring. While in the ICU patient was extubated and downgraded to the floors. While on the floors , patient desat low 80s, reintubated for acute respiratory failure. Brought back to the ICU. -Patient is awake and alert, lethargic -CXR 02/16: No significant interval change in multifocal airspace disease in the right mid lung, lower lobe and left lower lobe -CXR 02/15: the patchy coalescent left basal opacities inferred retrocardiac are similar in appearance with similar costophrenic angle small pleural effusion and or thickening. Cardiomegaly, right hilar prominence. -CXR 02/14: small left pleural effusion, moderate venous congestion, right hilar prominence, L basilar airspace opacity -Continue Keppra 500mg IV Q12H, f/u keppra level -Ativan 2mg Q3H prn agitation -Continue Acyclovir 750mg IV Q12H -Discussed with Dr Spaulding, will discontinue Cefepime and Vancomycin at this time -Patient with Saddle PE, was on heparin drip but discontinued due to thrombocytopenia -Eliquis 10mg PO BID (to continue for one week, then 5mg PO BID) - on hold at this time -HIT workup negative - reviewed labs with Dr Woo SRA which is the confirmatory test is negative -Argotroban discontinued and heparin drip restarted -Platelet count improving, 113 -s/p IVC filter placement today -Continue Protonix 40mg IVP daily -Constipation: Colace 100mg PO BID -Continue PT/OT -Will place on CPA trial today, if does not tolerate, Patient may need trach -Continue to monitor in the ICU -Plan discussed with Dr Concepcion <Tristan Concepcion - Last Filed: 02/16/18 15:52> CCU Objective - Vital Signs / Intake & Output Vital Signs (Last 4 hours): Vital Signs Temp Pulse Resp BP Pulse Ox 02/16/18 15:10 84 20 103/47 L 100 02/16/18 14:11 82 16 115/57 L 100 02/16/18 13:10 85 12 117/73 100 02/16/18 12:50 97.8 F 86 24 118/50 L 99 02/16/18 12:41 87 13 118/50 L 99 02/16/18 12:04 97 H 10 L 133/55 L 100 02/16/18 11:50 98.0 F 87 22 139/69 100 Intake and Output (Last 8hrs): Intake & Output 02/16/18 02/16/18 02/16/18 06:59 14:59 22:59 Intake Total 122.5 1060.5 65.5 Output Total 605 665 95 Balance -482.5 395.5 -29.5 Intake: IV 250 Intake, IV Amount 122.5 560.5 15.5 Left Distal Port Internal 450 Jugular Left Medial Port Internal 122.5 110.5 15.5 Jugular Tube Feeding 250 50 Output: Urine 605 665 95 2-way Urethral 605 665 95 Stool 0 Other: # Bowel Movements 0 0 - Medications Active Medications: Active Medications Generic Name Dose Route Start Last Admin Trade Name Freq PRN Reason Stop Dose Admin Acetaminophen 650 mg 01/19/18 00:50 02/05/18 20:48 Tylenol 650mg/20.3ml Solution Ud NG 650 mg Q6 PRN Administration GIVE FOR TEMP. 100*F OR ABOVE Acetylcysteine 4 ml 02/12/18 20:00 02/16/18 13:39 Acetylcysteine 20% INH Not Given RQ12 SHINE Albuterol/Ipratropium 3 ml 01/26/18 20:00 02/16/18 13:38 Duoneb 3 Mg/0.5 Mg (3 Ml) Ud INH 3 ml RQ6 SHINE Administration Apixaban 10 mg 02/09/18 18:00 02/13/18 10:04 Eliquis PO 02/16/18 18:01 10 mg BID SHINE Administration Aspirin 81 mg 01/17/18 10:00 02/16/18 11:23 Aspirin Chewable PO 81 mg DAILY SHINE Administration Carvedilol 12.5 mg 01/22/18 09:07 02/16/18 09:44 Coreg PO 12.5 mg BID SHINE Administration Docusate Sodium 100 mg 02/15/18 18:00 02/16/18 09:44 Colace PO 100 mg BID SHINE Administration Hydralazine HCl 100 mg 02/03/18 00:29 02/16/18 14:18 Apresoline PO Not Given Q8 SHINE Levetiracetam 500 mg/ Dextrose 55 mls @ 420 mls/hr 02/08/18 22:00 02/16/18 09 :35 IVPB 420 mls/hr Q12H SHINE Administration Vancomycin HCl 1 gm/ Dextrose 250 mls @ 166.7 mls/hr 02/08/18 19:30 02/14/18 18:30 IVPB 166.7 mls/hr Q48H SHINE Administration Protocol Acyclovir 750 mg/ Dextrose 250 mls @ 100 mls/hr 02/08/18 20:00 02/16/18 09:15 IV 100 mls/hr Q12H SHINE Administration Protocol Cefepime HCl 2 gm in 100 mls @ 200 mls/hr 02/14/18 07:00 02/16/18 07:14 Maxipime Iv 2 Gm Premix IVPB 02/19/18 07:01 200 mls/hr Q12H SHINE Administration Protocol Heparin Sodium/Sodium Chloride 25,000 units in 250 mls @ 13.498 mls/hr 11:54 02/16/18 09:15 Heparin 36026 Units/250ml 1/2 Normal Saline IV 16 u/kg/hr .[id number] PRN 15.427 mls/hr ADJUST RATE PER PROTOCOL Administration Protocol 14 U/KG/HR Insulin Aspart 0 unit 02/09/18 18:56 02/16/18 11:35 Novolog SC 6 unit Q6 SHINE Administration Protocol Insulin Glargine 20 unit 02/09/18 08:00 02/16/18 08:00 Lantus SC Not Given Q12H SHINE Lorazepam 2 mg 02/14/18 14:07 02/15/18 07:57 Ativan IVP 2 mg Q3H PRN Administration Anxiety Pantoprazole Sodium 40 mg 02/13/18 11:30 02/16/18 09:45 Protonix Inj IVP 40 mg DAILY SHINE Administration Tamsulosin HCl 0.4 mg 01/30/18 20:00 02/16/18 09:44 Flomax PO 0.4 mg DAILY SHINE Administration - Patient Studies Lab Studies: Lab Studies 02/16/18 02/16/18 02/16/18 Range/Units 11:32 08:30 07:42 WBC (4.8-10.8) K/uL RBC (4.40-5.90) Mil/uL Hgb (12.0-18.0) g/dL Hct (35.0-51.0) % MCV (80.0-94.0) fL MCH (27.0-31.0) pg MCHC (33.0-37.0) g/dL RDW (11.5-14.5) % Plt Count (130-400) K/uL MPV (7.2-11.7) fL Neut % (Auto) (50.0-75.0) % Lymph % (Auto) (20.0-40.0) % Taney % (Auto) (0.0-10.0) % Eos % (Auto) (0.0-4.0) % Baso % (Auto) (0.0-2.0) % Neut # (Auto) (1.8-7.0) K/uL Lymph # (Auto) (1.0-4.3) K/uL Taney # (Auto) (0.0-0.8) K/uL Eos # (Auto) (0.0-0.7) K/uL Baso # (Auto) (0.0-0.2) K/uL APTT 99 H D (21-34) SECONDS Puncture Site pCO2 (35-45) mm/Hg pO2 (80-100) mm/Hg HCO3 (21-28) mmol/L ABG pH (7.35-7.45) ABG Total CO2 (22-28) mmol/L ABG O2 Saturation (95-98) % ABG Base Excess (-2.0-3.0) mmol/L ABG Hemoglobin (11.7-17.4) g/dL ABG Carboxyhemoglobin (0.5-1.5) % POC ABG HHb (Measured) (0.0-5.0) % ABG Methemoglobin (0.0-3.0) % Jamey Test A-a O2 Difference mm/Hg Respiratory Index Hgb O2 Saturation (95.0-98.0) % Vent Mode Mechanical Rate FiO2 % Tidal Volume PEEP Sodium (132-148) mmol/L Potassium (3.6-5.2) mmol/L Chloride (98-107) mmol/L Carbon Dioxide (22-30) mmol/L Anion Gap (10-20) BUN (9-20) mg/dL Creatinine (0.8-1.5) mg/dL Est GFR ( Amer) Est GFR (Non-Af Amer) POC Glucose (mg/dL) 289 H 277 H (65-110) mg/dL Random Glucose (75-110) mg/dL Calcium (8.6-10.4) mg/dl Phosphorus (2.5-4.5) mg/dL Magnesium (1.6-2.3) mg/dL Total Bilirubin (0.2-1.3) mg/dL AST (17-59) U/L ALT (21-72) U/L Alkaline Phosphatase (38-126) U/L Total Protein (6.3-8.3) g/dL Albumin (3.5-5.0) g/dL Globulin (2.2-3.9) gm/dL Albumin/Globulin Ratio (1.0-2.1) 02/16/18 02/16/18 02/16/18 Range/Units 06:34 06:34 06:10 WBC 4.3 L (4.8-10.8) K/uL RBC 3.29 L (4.40-5.90) Mil/uL Hgb 10.6 L (12.0-18.0) g/dL Hct 30.9 L (35.0-51.0) % MCV 94.1 H (80.0-94.0) fL MCH 32.1 H (27.0-31.0) pg MCHC 34.1 (33.0-37.0) g/dL RDW 12.7 (11.5-14.5) % Plt Count 113 L (130-400) K/uL MPV 11.4 (7.2-11.7) fL Neut % (Auto) 53.7 (50.0-75.0) % Lymph % (Auto) 32.1 (20.0-40.0) % Taney % (Auto) 8.6 (0.0-10.0) % Eos % (Auto) 5.1 H (0.0-4.0) % Baso % (Auto) 0.5 (0.0-2.0) % Neut # (Auto) 2.3 (1.8-7.0) K/uL Lymph # (Auto) 1.4 (1.0-4.3) K/uL Taney # (Auto) 0.4 (0.0-0.8) K/uL Eos # (Auto) 0.2 (0.0-0.7) K/uL Baso # (Auto) 0.0 (0.0-0.2) K/uL APTT (21-34) SECONDS Puncture Site pCO2 (35-45) mm/Hg pO2 (80-100) mm/Hg HCO3 (21-28) mmol/L ABG pH (7.35-7.45) ABG Total CO2 (22-28) mmol/L ABG O2 Saturation (95-98) % ABG Base Excess (-2.0-3.0) mmol/L ABG Hemoglobin (11.7-17.4) g/dL ABG Carboxyhemoglobin (0.5-1.5) % POC ABG HHb (Measured) (0.0-5.0) % ABG Methemoglobin (0.0-3.0) % Jamey Test A-a O2 Difference mm/Hg Respiratory Index Hgb O2 Saturation (95.0-98.0) % Vent Mode Mechanical Rate FiO2 % Tidal Volume PEEP Sodium 137 (132-148) mmol/L Potassium 4.1 (3.6-5.2) mmol/L Chloride 100 (98-107) mmol/L Carbon Dioxide 28 (22-30) mmol/L Anion Gap 13 (10-20) BUN 17 (9-20) mg/dL Creatinine 0.9 (0.8-1.5) mg/dL Est GFR ( Amer) > 60 Est GFR (Non-Af Amer) > 60 POC Glucose (mg/dL) 240 H (65-110) mg/dL Random Glucose 259 H (75-110) mg/dL Calcium 8.0 L (8.6-10.4) mg/dl Phosphorus 3.2 (2.5-4.5) mg/dL Magnesium 2.0 (1.6-2.3) mg/dL Total Bilirubin 0.9 (0.2-1.3) mg/dL AST 22 (17-59) U/L ALT 26 (21-72) U/L Alkaline Phosphatase 82 (38-126) U/L Total Protein 5.4 L (6.3-8.3) g/dL Albumin 2.7 L (3.5-5.0) g/dL Globulin 2.7 (2.2-3.9) gm/dL Albumin/Globulin Ratio 1.0 (1.0-2.1) 02/16/18 02/16/18 02/16/18 Range/Units 05:07 00:38 00:13 WBC (4.8-10.8) K/uL RBC (4.40-5.90) Mil/uL Hgb (12.0-18.0) g/dL Hct (35.0-51.0) % MCV (80.0-94.0) fL MCH (27.0-31.0) pg MCHC (33.0-37.0) g/dL RDW (11.5-14.5) % Plt Count (130-400) K/uL MPV (7.2-11.7) fL Neut % (Auto) (50.0-75.0) % Lymph % (Auto) (20.0-40.0) % Taney % (Auto) (0.0-10.0) % Eos % (Auto) (0.0-4.0) % Baso % (Auto) (0.0-2.0) % Neut # (Auto) (1.8-7.0) K/uL Lymph # (Auto) (1.0-4.3) K/uL Taney # (Auto) (0.0-0.8) K/uL Eos # (Auto) (0.0-0.7) K/uL Baso # (Auto) (0.0-0.2) K/uL APTT 120 H* D (21-34) SECONDS Puncture Site Rba pCO2 42 (35-45) mm/Hg pO2 111 H (80-100) mm/Hg HCO3 31.0 H (21-28) mmol/L ABG pH 7.49 H (7.35-7.45) ABG Total CO2 33.3 H (22-28) mmol/L ABG O2 Saturation 99.0 H (95-98) % ABG Base Excess 7.8 H (-2.0-3.0) mmol/L ABG Hemoglobin 14.4 (11.7-17.4) g/dL ABG Carboxyhemoglobin 1.7 H (0.5-1.5) % POC ABG HHb (Measured) 1.0 (0.0-5.0) % ABG Methemoglobin 1.0 (0.0-3.0) % Jamey Test Na A-a O2 Difference 193.0 mm/Hg Respiratory Index 1.7 Hgb O2 Saturation 96.3 (95.0-98.0) % Vent Mode Prvc Mechanical Rate 15 FiO2 50.0 % Tidal Volume 400 PEEP 5 Sodium (132-148) mmol/L Potassium (3.6-5.2) mmol/L Chloride (98-107) mmol/L Carbon Dioxide (22-30) mmol/L Anion Gap (10-20) BUN (9-20) mg/dL Creatinine (0.8-1.5) mg/dL Est GFR ( Amer) Est GFR (Non-Af Amer) POC Glucose (mg/dL) 228 H (65-110) mg/dL Random Glucose (75-110) mg/dL Calcium (8.6-10.4) mg/dl Phosphorus (2.5-4.5) mg/dL Magnesium (1.6-2.3) mg/dL Total Bilirubin (0.2-1.3) mg/dL AST (17-59) U/L ALT (21-72) U/L Alkaline Phosphatase (38-126) U/L Total Protein (6.3-8.3) g/dL Albumin (3.5-5.0) g/dL Globulin (2.2-3.9) gm/dL Albumin/Globulin Ratio (1.0-2.1) 02/15/18 02/15/18 Range/Units 18:46 17:41 WBC (4.8-10.8) K/uL RBC (4.40-5.90) Mil/uL Hgb (12.0-18.0) g/dL Hct (35.0-51.0) % MCV (80.0-94.0) fL MCH (27.0-31.0) pg MCHC (33.0-37.0) g/dL RDW (11.5-14.5) % Plt Count (130-400) K/uL MPV (7.2-11.7) fL Neut % (Auto) (50.0-75.0) % Lymph % (Auto) (20.0-40.0) % Taney % (Auto) (0.0-10.0) % Eos % (Auto) (0.0-4.0) % Baso % (Auto) (0.0-2.0) % Neut # (Auto) (1.8-7.0) K/uL Lymph # (Auto) (1.0-4.3) K/uL Taney # (Auto) (0.0-0.8) K/uL Eos # (Auto) (0.0-0.7) K/uL Baso # (Auto) (0.0-0.2) K/uL APTT 61 H D (21-34) SECONDS Puncture Site pCO2 (35-45) mm/Hg pO2 (80-100) mm/Hg HCO3 (21-28) mmol/L ABG pH (7.35-7.45) ABG Total CO2 (22-28) mmol/L ABG O2 Saturation (95-98) % ABG Base Excess (-2.0-3.0) mmol/L ABG Hemoglobin (11.7-17.4) g/dL ABG Carboxyhemoglobin (0.5-1.5) % POC ABG HHb (Measured) (0.0-5.0) % ABG Methemoglobin (0.0-3.0) % Jamey Test A-a O2 Difference mm/Hg Respiratory Index Hgb O2 Saturation (95.0-98.0) % Vent Mode Mechanical Rate FiO2 % Tidal Volume PEEP Sodium (132-148) mmol/L Potassium (3.6-5.2) mmol/L Chloride (98-107) mmol/L Carbon Dioxide (22-30) mmol/L Anion Gap (10-20) BUN (9-20) mg/dL Creatinine (0.8-1.5) mg/dL Est GFR ( Amer) Est GFR (Non-Af Amer) POC Glucose (mg/dL) 188 H (65-110) mg/dL Random Glucose (75-110) mg/dL Calcium (8.6-10.4) mg/dl Phosphorus (2.5-4.5) mg/dL Magnesium (1.6-2.3) mg/dL Total Bilirubin (0.2-1.3) mg/dL AST (17-59) U/L ALT (21-72) U/L Alkaline Phosphatase (38-126) U/L Total Protein (6.3-8.3) g/dL Albumin (3.5-5.0) g/dL Globulin (2.2-3.9) gm/dL Albumin/Globulin Ratio (1.0-2.1) Laboratory Results - last 24 hr 02/15/18 02/15/18 02/16/18 17:41 18:46 00:13 WBC RBC Hgb Hct MCV MCH MCHC RDW Plt Count MPV Neut % (Auto) Lymph % (Auto) Taney % (Auto) Eos % (Auto) Baso % (Auto) Neut # (Auto) Lymph # (Auto) Taney # (Auto) Eos # (Auto) Baso # (Auto) APTT 61 H D Puncture Site pCO2 pO2 HCO3 ABG pH ABG Total CO2 ABG O2 Saturation ABG Base Excess ABG Hemoglobin ABG Carboxyhemoglobin POC ABG HHb (Measured) ABG Methemoglobin Jamey Test A-a O2 Difference Respiratory Index Hgb O2 Saturation Vent Mode Mechanical Rate FiO2 Tidal Volume PEEP Sodium Potassium Chloride Carbon Dioxide Anion Gap BUN Creatinine Est GFR ( Amer) Est GFR (Non-Af Amer) POC Glucose (mg/dL) 188 H 228 H Random Glucose Calcium Phosphorus Magnesium Total Bilirubin AST ALT Alkaline Phosphatase Total Protein Albumin Globulin Albumin/Globulin Ratio 02/16/18 02/16/18 02/16/18 00:38 05:07 06:10 WBC RBC Hgb Hct MCV MCH MCHC RDW Plt Count MPV Neut % (Auto) Lymph % (Auto) Taney % (Auto) Eos % (Auto) Baso % (Auto) Neut # (Auto) Lymph # (Auto) Taney # (Auto) Eos # (Auto) Baso # (Auto) APTT 120 H* D Puncture Site Rba pCO2 42 pO2 111 H HCO3 31.0 H ABG pH 7.49 H ABG Total CO2 33.3 H ABG O2 Saturation 99.0 H ABG Base Excess 7.8 H ABG Hemoglobin 14.4 ABG Carboxyhemoglobin 1.7 H POC ABG HHb (Measured) 1.0 ABG Methemoglobin 1.0 Jamey Test Na A-a O2 Difference 193.0 Respiratory Index 1.7 Hgb O2 Saturation 96.3 Vent Mode Prvc Mechanical Rate 15 FiO2 50.0 Tidal Volume 400 PEEP 5 Sodium Potassium Chloride Carbon Dioxide Anion Gap BUN Creatinine Est GFR ( Amer) Est GFR (Non-Af Amer) POC Glucose (mg/dL) 240 H Random Glucose Calcium Phosphorus Magnesium Total Bilirubin AST ALT Alkaline Phosphatase Total Protein Albumin Globulin Albumin/Globulin Ratio 02/16/18 02/16/18 02/16/18 06:34 06:34 07:42 WBC 4.3 L RBC 3.29 L Hgb 10.6 L Hct 30.9 L MCV 94.1 H MCH 32.1 H MCHC 34.1 RDW 12.7 Plt Count 113 L MPV 11.4 Neut % (Auto) 53.7 Lymph % (Auto) 32.1 Taney % (Auto) 8.6 Eos % (Auto) 5.1 H Baso % (Auto) 0.5 Neut # (Auto) 2.3 Lymph # (Auto) 1.4 Taney # (Auto) 0.4 Eos # (Auto) 0.2 Baso # (Auto) 0.0 APTT Puncture Site pCO2 pO2 HCO3 ABG pH ABG Total CO2 ABG O2 Saturation ABG Base Excess ABG Hemoglobin ABG Carboxyhemoglobin POC ABG HHb (Measured) ABG Methemoglobin Jamey Test A-a O2 Difference Respiratory Index Hgb O2 Saturation Vent Mode Mechanical Rate FiO2 Tidal Volume PEEP Sodium 137 Potassium 4.1 Chloride 100 Carbon Dioxide 28 Anion Gap 13 BUN 17 Creatinine 0.9 Est GFR ( Amer) > 60 Est GFR (Non-Af Amer) > 60 POC Glucose (mg/dL) 277 H Random Glucose 259 H Calcium 8.0 L Phosphorus 3.2 Magnesium 2.0 Total Bilirubin 0.9 AST 22 ALT 26 Alkaline Phosphatase 82 Total Protein 5.4 L Albumin 2.7 L Globulin 2.7 Albumin/Globulin Ratio 1.0 02/16/18 02/16/18 08:30 11:32 WBC RBC Hgb Hct MCV MCH MCHC RDW Plt Count MPV Neut % (Auto) Lymph % (Auto) Taney % (Auto) Eos % (Auto) Baso % (Auto) Neut # (Auto) Lymph # (Auto) Taney # (Auto) Eos # (Auto) Baso # (Auto) APTT 99 H D Puncture Site pCO2 pO2 HCO3 ABG pH ABG Total CO2 ABG O2 Saturation ABG Base Excess ABG Hemoglobin ABG Carboxyhemoglobin POC ABG HHb (Measured) ABG Methemoglobin Jamey Test A-a O2 Difference Respiratory Index Hgb O2 Saturation Vent Mode Mechanical Rate FiO2 Tidal Volume PEEP Sodium Potassium Chloride Carbon Dioxide Anion Gap BUN Creatinine Est GFR ( Amer) Est GFR (Non-Af Amer) POC Glucose (mg/dL) 289 H Random Glucose Calcium Phosphorus Magnesium Total Bilirubin AST ALT Alkaline Phosphatase Total Protein Albumin Globulin Albumin/Globulin Ratio Critical Care Progress Note - Nutrition Nutrition: Nutrition Category Date Time Status NPO Diet [DIET] Diets 02/14/18 Breakfast Active Assessment/Plan (1) Status epilepticus Current Visit: Yes Status: Acute Attending/Attestation - Attestation I have personally seen and examined this patient.: Yes I have fully participated in the care of the patient.: Yes I have reviewed all pertinent clinical information: Yes Notes (Text): 02/16/18 15:47 I have seen and examined the patient. Medical records, lab studies, and imaging were reviewed by me and a management plan was formulated on multidisciplinary rounds with resident Dr. Castañeda. I agree with their documented assessment and plan. Will try PS trials, once patient is more awake. If he tolerates will extubate, but patient is persistent high risk given fluctuating mental status. Discussed trach placement, with family, this is the most safe option as patient's mental status keeps fluctuating. Critical Care Time 35 minutes. Multi-disciplinary rounds were performed with house staff, nursing, speech therapy, respiratory therapy, pharmacy and nutrition with integrated input from the primary team/attending and other consulting services. The documented time is cumulative and includes review of patient data/exams/labs/chart review and examination of the patient on rounds and throughout the day; time is exclusive of any procedures or teaching time. 02/16/18 15:52
--- NOTE | 2018-02-16 15:41 | CP.PCM.PN ---
Subjective - Date & Time of Evaluation Date of Evaluation: 02/16/18 Time of Evaluation: 09:00 - Subjective Subjective: seen in ICU ok to d/c IV antibiotics Objective - Vital Signs/Intake and Output Vital Signs (last 24 hours): Temp Pulse Resp BP Pulse Ox 97.8 F 84 20 103/47 L 100 02/16/18 12:50 02/16/18 15:10 02/16/18 15:10 02/16/18 15:10 02/16/18 15:10 Intake and Output: 02/16/18 02/16/18 06:59 18:59 Intake Total 392.5 1126.0 Output Total 885 760 Balance -492.5 366.0 - Medications Medications: Current Medications Acetaminophen (Tylenol 650mg/20.3ml Solution Ud) 650 mg NG Q6 PRN PRN Reason: GIVE FOR TEMP. 100*F OR ABOVE Last Admin: 02/05/18 20:48 Dose: 650 mg Acetylcysteine (Acetylcysteine 20%) 4 ml INH RQ12 [facility] Last Admin: 02/16/18 13:39 Dose: Not Given Albuterol/Ipratropium (Duoneb 3 Mg/0.5 Mg (3 Ml) Ud) 3 ml INH RQ6 [facility] Last Admin: 02/16/18 13:38 Dose: 3 ml Apixaban (Eliquis) 10 mg PO BID [facility] Stop: 02/16/18 18:01 Last Admin: 02/13/18 10:04 Dose: 10 mg Aspirin (Aspirin Chewable) 81 mg PO DAILY [facility] Last Admin: 02/16/18 11:23 Dose: 81 mg Carvedilol (Coreg) 12.5 mg PO BID [facility] Last Admin: 02/16/18 09:44 Dose: 12.5 mg Docusate Sodium (Colace) 100 mg PO BID [facility] Last Admin: 02/16/18 09:44 Dose: 100 mg Hydralazine HCl (Apresoline) 100 mg PO Q8 [facility] Last Admin: 02/16/18 14:18 Dose: Not Given Levetiracetam 500 mg/ Dextrose 55 mls @ 420 mls/hr IVPB Q12H [facility] Last Admin: 02/16/18 09:35 Dose: 420 mls/hr Vancomycin HCl 1 gm/ Dextrose 250 mls @ 166.7 mls/hr IVPB Q48H [facility] PRN Reason: Protocol Last Admin: 02/14/18 18:30 Dose: 166.7 mls/hr Acyclovir 750 mg/ Dextrose 250 mls @ 100 mls/hr IV Q12H [facility] PRN Reason: Protocol Last Admin: 02/16/18 09:15 Dose: 100 mls/hr Cefepime HCl (Maxipime Iv 2 Gm Premix) 2 gm in 100 mls @ 200 mls/hr IVPB Q12H [facility] PRN Reason: Protocol Stop: 02/19/18 07:01 Last Admin: 02/16/18 07:14 Dose: 200 mls/hr Heparin Sodium/Sodium Chloride (Heparin 45972 Units/250ml 1/2 Normal Saline) 25 ,000 units in 250 mls @ 13.498 mls/hr IV .[id number] PRN; Protocol; 14 U/KG/HR PRN Reason: ADJUST RATE PER PROTOCOL Last Admin: 02/16/18 09:15 Dose: 16 u/kg/hr, 15.427 mls/hr Insulin Aspart (Novolog) 0 unit SC Q6 [facility] PRN Reason: Protocol Last Admin: 02/16/18 11:35 Dose: 6 unit Insulin Glargine (Lantus) 20 unit SC Q12H [facility] Last Admin: 02/16/18 08:00 Dose: Not Given Lorazepam (Ativan) 2 mg IVP Q3H PRN PRN Reason: Anxiety Last Admin: 02/15/18 07:57 Dose: 2 mg Pantoprazole Sodium (Protonix Inj) 40 mg IVP DAILY [facility] Last Admin: 02/16/18 09:45 Dose: 40 mg Tamsulosin HCl (Flomax) 0.4 mg PO DAILY [facility] Last Admin: 02/16/18 09:44 Dose: 0.4 mg - Labs Labs: 02/16/18 06:34 02/16/18 06:34 PT 12.6 SECONDS (9.7-12.2) H D 02/15/18 06:24 INR 1.1 D 02/15/18 06:24 APTT 99 SECONDS (21-34) H D 02/16/18 08:30 - Constitutional Appears: Confused, Chronically Ill - Head Exam Head Exam: NORMOCEPHALIC - Eye Exam Eye Exam: absent: Scleral icterus - ENT Exam ENT Exam: Mucous Membranes Dry - Neck Exam Neck Exam: absent: Lymphadenopathy - Respiratory Exam Respiratory Exam: Decreased Breath Sounds - Cardiovascular Exam Cardiovascular Exam: REGULAR RHYTHM - GI/Abdominal Exam GI & Abdominal Exam: Distended, Soft Assessment and Plan (1) Sepsis Status: Acute (2) Sepsis Status: Acute (3) COPD (chronic obstructive pulmonary disease) Status: Acute (4) Congestive heart failure Status: Acute (5) Diabetes Status: Acute (6) Encephalopathy Status: Acute
[2018-02-16] MEDS: Vancomycin 1 GM in Dextrose 5% In Water 250 ML IVPB SCH (18:35)
--- NOTE | 2018-02-16 23:24 | CP.PCM.PN ---
Subjective - Date & Time of Evaluation Date of Evaluation: 02/16/18 Time of Evaluation: 16:30 - Subjective Subjective: Pt seen and examined at bedside Objective - Vital Signs/Intake and Output Vital Signs (last 24 hours): Temp Pulse Resp BP Pulse Ox 98.0 F 89 29 H 135/62 100 02/16/18 16:50 02/16/18 18:10 02/16/18 18:10 02/16/18 18:11 02/16/18 18:10 Intake and Output: 02/16/18 02/17/18 18:59 06:59 Intake Total 1301.2 Output Total 1010 Balance 291.2 - Medications Medications: Current Medications Acetaminophen (Tylenol 650mg/20.3ml Solution Ud) 650 mg NG Q6 PRN PRN Reason: GIVE FOR TEMP. 100*F OR ABOVE Last Admin: 02/05/18 20:48 Dose: 650 mg Acetylcysteine (Acetylcysteine 20%) 4 ml INH RQ12 [facility] Last Admin: 02/16/18 19:25 Dose: Not Given Albuterol/Ipratropium (Duoneb 3 Mg/0.5 Mg (3 Ml) Ud) 3 ml INH RQ6 [facility] Last Admin: 02/16/18 19:25 Dose: 3 ml Aspirin (Aspirin Chewable) 81 mg PO DAILY [facility] Last Admin: 02/16/18 11:23 Dose: 81 mg Carvedilol (Coreg) 12.5 mg PO BID [facility] Last Admin: 02/16/18 17:03 Dose: 12.5 mg Docusate Sodium (Colace) 100 mg PO BID [facility] Last Admin: 02/16/18 17:04 Dose: 100 mg Hydralazine HCl (Apresoline) 100 mg PO Q8 [facility] Last Admin: 02/16/18 22:06 Dose: 100 mg Levetiracetam 500 mg/ Dextrose 55 mls @ 420 mls/hr IVPB Q12H [facility] Last Admin: 02/16/18 22:00 Dose: 420 mls/hr Vancomycin HCl 1 gm/ Dextrose 250 mls @ 166.7 mls/hr IVPB Q48H [facility] PRN Reason: Protocol Last Admin: 02/16/18 18:35 Dose: 166.7 mls/hr Acyclovir 750 mg/ Dextrose 250 mls @ 100 mls/hr IV Q12H [facility] PRN Reason: Protocol Last Admin: 02/16/18 21:00 Dose: 100 mls/hr Cefepime HCl (Maxipime Iv 2 Gm Premix) 2 gm in 100 mls @ 200 mls/hr IVPB Q12H [facility] PRN Reason: Protocol Stop: 02/19/18 07:01 Last Admin: 02/16/18 18:01 Dose: 200 mls/hr Heparin Sodium/Sodium Chloride (Heparin 75579 Units/250ml 1/2 Normal Saline) 25 ,000 units in 250 mls @ 13.498 mls/hr IV .[id number] PRN; Protocol; 14 U/KG/HR PRN Reason: ADJUST RATE PER PROTOCOL Last Titration: 02/16/18 16:55 Dose: 13 u/kg/hr, 12.534 mls/hr Insulin Aspart (Novolog) 0 unit SC Q6 [facility] PRN Reason: Protocol Last Admin: 02/16/18 17:54 Dose: 4 unit Insulin Glargine (Lantus) 20 unit SC Q12H [facility] Last Admin: 02/16/18 21:00 Dose: 20 u Lorazepam (Ativan) 2 mg IVP Q3H PRN PRN Reason: Anxiety Last Admin: 02/16/18 20:00 Dose: 2 mg Pantoprazole Sodium (Protonix Inj) 40 mg IVP DAILY [facility] Last Admin: 02/16/18 09:45 Dose: 40 mg Tamsulosin HCl (Flomax) 0.4 mg PO DAILY [facility] Last Admin: 02/16/18 09:44 Dose: 0.4 mg - Labs Labs: 02/16/18 06:34 02/16/18 06:34 PT 12.6 SECONDS (9.7-12.2) H D 02/15/18 06:24 INR 1.1 D 02/15/18 06:24 APTT 68 SECONDS (21-34) H D 02/16/18 22:26 Assessment and Plan (1) Status epilepticus Status: Acute (2) COPD (chronic obstructive pulmonary disease) Status: Acute (3) Congestive heart failure Status: Acute (4) Diabetes Status: Acute (5) Hypernatremia Status: Acute (6) Acute respiratory failure Status: Acute (7) Ischemic encephalopathy Status: Acute
[2018-02-17] MEDS: (Novolog) Insulin Aspart, Recombinant 100 u/ml 10 ml vial SC SCH ×4 (00:23→18:24)
[2018-02-17] MEDS: Albuterol-Ipratrop 3 mg / 0.5 (3 ml) UD INH SCH ×4 (02:46→19:17)
[2018-02-17] MEDS: Heparin25000 units/250ml 1/2NS 25,000 UNITS/250 ML BAG IV PRN (04:54)
[2018-02-17 05:46] LABS: ARTERIAL BLOOD GAS HCO3 31.3 mmol/L (21-28); ARTERIAL BLOOD GAS HEMOGLOBIN 10.3 g/dL (11.7-17.4); ARTERIAL BLOOD GAS PCO2 45 mm/Hg (35-45); ARTERIAL BLOOD GAS PH 7.47 (7.35-7.45); ARTERIAL BLOOD GAS PO2 102 mm/Hg (80-100); ARTERIAL BLOOD GAS TCO2 34.2 mmol/L (22-28)
--- NOTE | 2018-02-17 05:58 | CP.PCM.PN ---
Subjective - Date & Time of Evaluation Date of Evaluation: 02/17/18 Time of Evaluation: 05:56 - Subjective Subjective: Gen Sx: Dr Giordano Pt S&E. NAEO. Intubated. Responds only to painful stimuli. Had IVC filter placed yesterday. Plan for trach monday. Objective - Vital Signs/Intake and Output Vital Signs (last 24 hours): Temp Pulse Resp BP Pulse Ox 98.2 F 85 20 122/47 L 100 02/17/18 02:00 02/17/18 05:00 02/17/18 05:00 02/17/18 04:12 02/17/18 05:00 Intake and Output: 02/16/18 02/17/18 18:59 06:59 Intake Total 1301.2 1273.6 Output Total 1010 Balance 291.2 1273.6 - Medications Medications: Current Medications Acetaminophen (Tylenol 650mg/20.3ml Solution Ud) 650 mg NG Q6 PRN PRN Reason: GIVE FOR TEMP. 100*F OR ABOVE Last Admin: 02/05/18 20:48 Dose: 650 mg Acetylcysteine (Acetylcysteine 20%) 4 ml INH RQ12 [facility] Last Admin: 02/16/18 19:25 Dose: Not Given Albuterol/Ipratropium (Duoneb 3 Mg/0.5 Mg (3 Ml) Ud) 3 ml INH RQ6 [facility] Last Admin: 02/17/18 02:46 Dose: 3 ml Aspirin (Aspirin Chewable) 81 mg PO DAILY [facility] Last Admin: 02/16/18 11:23 Dose: 81 mg Carvedilol (Coreg) 12.5 mg PO BID [facility] Last Admin: 02/16/18 17:03 Dose: 12.5 mg Docusate Sodium (Colace) 100 mg PO BID [facility] Last Admin: 02/16/18 17:04 Dose: 100 mg Hydralazine HCl (Apresoline) 100 mg PO Q8 [facility] Last Admin: 02/16/18 22:06 Dose: 100 mg Levetiracetam 500 mg/ Dextrose 55 mls @ 420 mls/hr IVPB Q12H [facility] Last Admin: 02/16/18 22:00 Dose: 420 mls/hr Vancomycin HCl 1 gm/ Dextrose 250 mls @ 166.7 mls/hr IVPB Q48H [facility] PRN Reason: Protocol Last Admin: 02/16/18 18:35 Dose: 166.7 mls/hr Acyclovir 750 mg/ Dextrose 250 mls @ 100 mls/hr IV Q12H [facility] PRN Reason: Protocol Last Admin: 02/16/18 21:00 Dose: 100 mls/hr Cefepime HCl (Maxipime Iv 2 Gm Premix) 2 gm in 100 mls @ 200 mls/hr IVPB Q12H [facility] PRN Reason: Protocol Stop: 02/19/18 07:01 Last Admin: 02/16/18 18:01 Dose: 200 mls/hr Heparin Sodium/Sodium Chloride (Heparin 77297 Units/250ml 1/2 Normal Saline) 25 ,000 units in 250 mls @ 13.498 mls/hr IV .[id number] PRN; Protocol; 14 U/KG/HR PRN Reason: ADJUST RATE PER PROTOCOL Last Admin: 02/17/18 04:54 Dose: 13 u/kg/hr, 12.534 mls/hr Insulin Aspart (Novolog) 0 unit SC Q6 [facility] PRN Reason: Protocol Last Admin: 02/17/18 00:23 Dose: Not Given Insulin Glargine (Lantus) 20 unit SC Q12H [facility] Last Admin: 02/16/18 21:00 Dose: 20 u Lorazepam (Ativan) 2 mg IVP Q3H PRN PRN Reason: Anxiety Last Admin: 02/17/18 02:12 Dose: 2 mg Pantoprazole Sodium (Protonix Inj) 40 mg IVP DAILY [facility] Last Admin: 02/16/18 09:45 Dose: 40 mg Tamsulosin HCl (Flomax) 0.4 mg PO DAILY [facility] Last Admin: 02/16/18 09:44 Dose: 0.4 mg - Labs Labs: 02/16/18 06:34 02/16/18 06:34 PT 12.6 SECONDS (9.7-12.2) H D 02/15/18 06:24 INR 1.1 D 02/15/18 06:24 APTT 68 SECONDS (21-34) H D 02/16/18 22:26 - Constitutional Appears: Chronically Ill - Respiratory Exam Respiratory Exam: absent: Respiratory Distress - Cardiovascular Exam Cardiovascular Exam: REGULAR RHYTHM. absent: Tachycardia - GI/Abdominal Exam GI & Abdominal Exam: Soft. absent: Distended, Tenderness - Extremities Exam Additional comments: right groin site c/d/i Assessment and Plan - Assessment and Plan (Free Text) Assessment: 67M s/p CVA: s/p peg, IVC filter; now needs trach Plan: plan for trach monday d/w Dr Pasquale Lara, PGY3
[2018-02-17] MEDS: Cefepime IV 2 gm in Dextrose 2 GM/100 ML BAG IVPB SCH ×2 (06:00→18:24)
[2018-02-17 06:30] LABS: BASO % 0.4 % (0.0-2.0); EOS # 0.2 K/uL (0.0-0.7); EOS % 3.8 % (0.0-4.0); HEMOGLOBIN 10.4 g/dL (12.0-18.0); LYMPH # 1.4 K/uL (1.0-4.3); LYMPH % 32.3 % (20.0-40.0); MEAN CELL VOLUME 93.5 fL (80.0-94.0); MEAN CORPUSCULAR HEMOGLOBIN 33.4 pg (27.0-31.0); MEAN CORPUSCULAR HGB CONC 35.7 g/dL (33.0-37.0); MEAN PLATELET VOLUME 11.1 fL (7.2-11.7); MONO # 0.4 K/uL (0.0-0.8); MONO % 10.3 % (0.0-10.0); NEUT # 2.3 K/uL (1.8-7.0); NEUT % 53.2 % (50.0-75.0); NRBC % 0.1 % (0.0-2.0); RBC 3.13 Mil/uL (4.40-5.90); RED CELL DISTRIBUTION WIDTH 15.3 % (11.5-14.5); WHITE BLOOD COUNT 4.3 K/uL (4.8-10.8)
[2018-02-17 06:46] LABS: ALB/GLOB RATIO 0.9 (1.0-2.1); ALBUMIN 2.8 g/dL (3.5-5.0); ALT/SGPT 20 U/L (21-72); AST/SGOT 20 U/L (17-59); BLOOD UREA NITROGEN 18 mg/dL (9-20); CALCIUM 7.8 mg/dl (8.6-10.4); GFR AFRICAN-AMERICAN > 60; GFR NON-AFRICAN AMERICAN > 60
[2018-02-17] MEDS: ACYCLOVIR IV SCH ×2 (07:42→21:33)
[2018-02-17] MEDS: (Lantus) Insulin Glargine, Recombinant SC SCH ×2 (07:42→21:00)
[2018-02-17] MEDS: DEXTROSE 5% IV SCH ×2 (07:42→21:33)
[2018-02-17] MEDS: WATER IV SCH ×2 (07:42→21:33)
[2018-02-17] MEDS: Acetylcysteine 20% Inhal Soln (4ml) INH SCH ×2 (08:04→19:17)
[2018-02-17] MEDS: WATER IVPB SCH ×2 (09:20→21:36)
[2018-02-17] MEDS: LEVETIRACETAM IVPB SCH ×2 (09:20→21:36)
[2018-02-17] MEDS: DEXTROSE 5% IVPB SCH ×2 (09:20→21:36)
--- NOTE | 2018-02-17 13:07 | RAD ---
HISTORY: intubated COMPARISON: No prior. FINDINGS: In situ ETT, tip of which lies approximately 3.2 cm above rianna. . Re- demonstrated is a left IJ central line, the tip of which appears to lie within the brachiocephalic vein just at the junction of the SVC LUNGS: Low lung volumes. Bibasilar atelectasis and/or infiltrates. Questionable small bilateral effusions PLEURA: No significant pleural effusion identified, no pneumothorax apparent. CARDIOVASCULAR: Sternotomy wires and CABG clips again noted. Cardiomegaly. OSSEOUS STRUCTURES: No significant abnormalities. VISUALIZED UPPER ABDOMEN: Normal. OTHER FINDINGS: None. IMPRESSION: ETT and central line as above. Low lung volumes. Bibasilar atelectasis and/or infiltrates. Questionable small bilateral effusions
--- NOTE | 2018-02-17 13:12 | PN ---
DATE: LOCATION: ICU 7. SUBJECTIVE: This is a 67-year-old male, post PEG insertion seen in rounds, and post IVC filter insertion without reported significant clinical changes, tolerating PEG feeding well. No reported active bleeding, but the patient is still intubated. Responds only to, sometimes, painful stimuli, nonverbal. The entire chart is reviewed including, but not limited to the most recent lab and radiology study results, current and the previous medication list, current and the previous medical events. Today's lab showed pancytopenia with white blood cells of 4.3, hemoglobin 10.4, hematocrit 29.2, platelets 112, PTT of 47 with abnormal ABGs and blood glucose level 262, calcium 7.8, total bilirubin 5.7, albumin 2.8. Official report of today's chest x-ray still pending. PHYSICAL EXAMINATION: GENERAL: A 67-year-old male, intubated to vent. VITAL SIGNS: Afebrile, with pulse of 80, blood pressure 160/72. HEENT: Showed pale dry oral mucous membranes, nonicteric sclerae. LUNGS: Few scattered crepitations. Decreased air entry at bases. HEART: Positive S1 and S2, with increased rate. ABDOMEN: With pulz-[id number] distention. PEG tube is in place without residual resistance or bleeding. No evidence of anterior abdominal wall cellulitis, wound is clean, and covered with clean dressing. EXTREMITIES: With lower extremity mild edematous changes. No clubbing or cyanosis. NEUROLOGIC: No reported new neurological deficits, sensory or motor. IMPRESSION: 1. Malnutrition with hypoalbuminemia. 2. Dysphagia. 3. Status post percutaneous endoscopic gastrostomy tube insertion. 4. Lower extremities deep venous thrombosis, with status post inferior vena cava filter insertion. 5. Known history of seizure disorder, pneumonia, respiratory failure, intubated to vent, the patient for possible tracheostomy. 6. Known history of, but not limited to hypertension, coronary artery disease, status post coronary artery bypass graft, hyperlipidemia, diabetes mellitus. 7. 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 SUGGESTIONS: 1. Continue current management. 2. Subsequent discontinuation of anticoagulation and antiplatelet drugs. 3. Increase rate of PEG feeding as tolerated. Jaya Glass MD
--- NOTE | 2018-02-17 14:58 | CP.PCM.PN ---
Subjective - Date & Time of Evaluation Date of Evaluation: 02/17/18 Time of Evaluation: 06:00 - Subjective Subjective: no fver confused moves all extremities Objective - Vital Signs/Intake and Output Vital Signs (last 24 hours): Temp Pulse Resp BP Pulse Ox 97.6 F 84 13 145/68 100 02/17/18 12:00 02/17/18 13:13 02/17/18 13:13 02/17/18 13:13 02/17/18 13:13 Intake and Output: 02/17/18 02/17/18 06:59 18:59 Intake Total 1436.2 738.2 Output Total 920 710 Balance 516.2 28.2 - Medications Medications: Current Medications Acetaminophen (Tylenol 650mg/20.3ml Solution Ud) 650 mg NG Q6 PRN PRN Reason: GIVE FOR TEMP. 100*F OR ABOVE Last Admin: 02/05/18 20:48 Dose: 650 mg Acetylcysteine (Acetylcysteine 20%) 4 ml INH RQ12 [facility] Last Admin: 02/17/18 08:04 Dose: 4 ml Albuterol/Ipratropium (Duoneb 3 Mg/0.5 Mg (3 Ml) Ud) 3 ml INH RQ6 [facility] Last Admin: 02/17/18 13:34 Dose: 3 ml Aspirin (Aspirin Chewable) 81 mg PO DAILY [facility] Last Admin: 02/17/18 09:08 Dose: 81 mg Carvedilol (Coreg) 12.5 mg PO BID [facility] Last Admin: 02/17/18 09:08 Dose: 12.5 mg Docusate Sodium (Colace) 100 mg PO BID [facility] Last Admin: 02/17/18 09:08 Dose: 100 mg Hydralazine HCl (Apresoline) 100 mg PO Q8 [facility] Last Admin: 02/17/18 14:41 Dose: 100 mg Levetiracetam 500 mg/ Dextrose 55 mls @ 420 mls/hr IVPB Q12H [facility] Last Admin: 02/17/18 09:20 Dose: 420 mls/hr Vancomycin HCl 1 gm/ Dextrose 250 mls @ 166.7 mls/hr IVPB Q48H [facility] PRN Reason: Protocol Last Admin: 02/16/18 18:35 Dose: 166.7 mls/hr Acyclovir 750 mg/ Dextrose 250 mls @ 100 mls/hr IV Q12H [facility] PRN Reason: Protocol Last Admin: 02/17/18 07:42 Dose: 100 mls/hr Cefepime HCl (Maxipime Iv 2 Gm Premix) 2 gm in 100 mls @ 200 mls/hr IVPB Q12H [facility] PRN Reason: Protocol Stop: 02/19/18 07:01 Last Admin: 02/17/18 06:00 Dose: 200 mls/hr Heparin Sodium/Sodium Chloride (Heparin 51608 Units/250ml 1/2 Normal Saline) 25 ,000 units in 250 mls @ 13.498 mls/hr IV .[id number] PRN; Protocol; 14 U/KG/HR PRN Reason: ADJUST RATE PER PROTOCOL Last Admin: 02/17/18 04:54 Dose: 13 u/kg/hr, 12.534 mls/hr Insulin Aspart (Novolog) 0 unit SC Q6 [facility] PRN Reason: Protocol Last Admin: 02/17/18 11:59 Dose: 6 unit Insulin Glargine (Lantus) 20 unit SC Q12H [facility] Last Admin: 02/17/18 07:42 Dose: 20 u Lorazepam (Ativan) 2 mg IVP Q3H PRN PRN Reason: Anxiety Last Admin: 02/17/18 02:12 Dose: 2 mg Pantoprazole Sodium (Protonix Inj) 40 mg IVP DAILY [facility] Last Admin: 02/17/18 09:09 Dose: 40 mg Tamsulosin HCl (Flomax) 0.4 mg PO DAILY [facility] Last Admin: 02/17/18 09:09 Dose: 0.4 mg - Labs Labs: 02/17/18 06:20 02/17/18 06:18 PT 12.6 SECONDS (9.7-12.2) H D 02/15/18 06:24 INR 1.1 D 02/15/18 06:24 APTT 47 SECONDS (21-34) H D 02/17/18 06:21 - Constitutional Appears: Non-toxic, Chronically Ill - Head Exam Head Exam: NORMOCEPHALIC - Eye Exam Eye Exam: PERRL - ENT Exam ENT Exam: Mucous Membranes Dry - Neck Exam Neck Exam: absent: Lymphadenopathy - Respiratory Exam Respiratory Exam: Decreased Breath Sounds - Cardiovascular Exam Cardiovascular Exam: REGULAR RHYTHM - GI/Abdominal Exam GI & Abdominal Exam: Distended, Soft - Rectal Exam Rectal Exam: Deferred - Exam Exam: NORMAL INSPECTION - Extremities Exam Extremities Exam: absent: Pedal Edema, Tenderness - Back Exam Back Exam: absent: CVA tenderness (L), CVA tenderness (R) Assessment and Plan (1) Sepsis Status: Acute (2) Sepsis Status: Acute (3) COPD (chronic obstructive pulmonary disease) Status: Acute (4) Congestive heart failure Status: Acute (5) Diabetes Status: Acute (6) Encephalopathy Status: Acute - Assessment and Plan (Free Text) Assessment: toxic metabolic encephalopathy resp failure PE DVT\ s/p IVC filter multiple CVA consider d/c antibiotics poor prognosisi needs trach and peg
--- NOTE | 2018-02-17 17:41 | CP.CCUPN ---
CCU Subjective - Physician Review Events Since Last Encounter (Free Text): 02/17/18 17:39 patient is on ventilator, poorly responding Had a PEG tube Clinical otherwise stable Chest good air entry bilaterally Regular heart sound Abdomen soft Nontender No pedal edema Temp Pulse Resp BP Pulse Ox 99.2 F 78 16 107/62 99 02/17/18 16:00 02/17/18 16:12 02/17/18 16:12 02/17/18 17:17 02/17/18 16:12 Micro Results 02/08/18 20:58 Blood Blood Culture - Final NO GROWTH AFTER 5 DAYS 02/08/18 20:58 Blood Gram Stain - Final TEST NOT PERFORMED 02/08/18 20:58 Blood Blood Culture - Final NO GROWTH AFTER 5 DAYS 02/08/18 20:58 Blood Gram Stain - Final TEST NOT PERFORMED 02/08/18 Unknown Urine,Catheterized Urine Culture - Final No Growth (<1,000 CFU/ML) 02/08/18 Unknown Naris MRSA Culture (Admit) - Final MRSA NOT DETECTED 02/01/18 04:00 Blood-Venous Blood Culture - Final NO GROWTH AFTER 5 DAYS 02/01/18 04:00 Blood-Venous Gram Stain - Final TEST NOT PERFORMED 02/01/18 04:00 Blood-Venous Blood Culture - Final NO GROWTH AFTER 5 DAYS 02/01/18 04:00 Blood-Venous Gram Stain - Final TEST NOT PERFORMED 02/02/18 09:14 Nose MRSA Culture - Final MRSA NOT DETECTED 01/31/18 Unknown Urine Urine Culture - Final No Growth (<1,000 CFU/ML) 01/28/18 11:36 Stool Ova and Parasite Concentrate Exam - Final 01/26/18 18:45 Blood-Venous S.aureus & Coag-Neg Staph PNA FISH - Final 01/26/18 18:45 Blood-Venous Blood Culture - Final Coagulase Neg Staphylococcus 01/26/18 18:45 Blood-Venous Gram Stain - Final 01/26/18 18:45 Blood-Venous Blood Culture - Preliminary Gram Pos Cocci In Clusters 01/26/18 18:45 Blood-Venous Gram Stain - Final 01/26/18 18:40 Urine,Catheterized Urine Culture - Final No Growth (<1,000 CFU/ML) 01/26/18 18:26 Throat Group A Strep Throat Culture - Final NORMAL SAPROPHYTIC HALEY. CULTURE NEGATIVE FOR BETA STREP GROUP A. 01/21/18 Unknown Blood-Venous Blood Culture - Final NO GROWTH AFTER 5 DAYS 01/21/18 Unknown Blood-Venous Gram Stain - Final TEST NOT PERFORMED 01/21/18 Unknown Blood-Venous Blood Culture - Final NO GROWTH AFTER 5 DAYS 01/21/18 Unknown Blood-Venous Gram Stain - Final TEST NOT PERFORMED 01/22/18 14:00 Back Gram Stain - Final 01/22/18 14:00 Back Wound Culture - Final Enterococcus Faecalis Coagulase Neg Staphylococcus 01/21/18 Unknown Trachasp Gram Stain - Final 01/21/18 Unknown Trachasp Sputum Culture - Final Staphylococcus Aureus 01/17/18 15:26 Blood Blood Culture - Final NO GROWTH AFTER 5 DAYS 01/17/18 15:26 Blood Gram Stain - Final TEST NOT PERFORMED 01/17/18 15:26 Blood Blood Culture - Final NO GROWTH AFTER 5 DAYS 01/17/18 15:26 Blood Gram Stain - Final TEST NOT PERFORMED 01/21/18 Unknown Urine,Stanley Urine Culture - Final No Growth (<1,000 CFU/ML) 01/16/18 17:36 Trachasp Gram Stain - Final 01/16/18 17:36 Trachasp Sputum Culture - Final NORMAL ORAL HALEY 01/16/18 20:18 Naris MRSA Culture (Admit) - Final MRSA NOT DETECTED 01/17/18 15:26 Urine Urine Culture - Final No Growth (<1,000 CFU/ML) Most Recent Lab Values WBC 4.3 K/uL (4.8-10.8) L 02/17/18 06:20 RBC 3.13 Mil/uL (4.40-5.90) L 02/17/18 06:20 Hgb 10.4 g/dL (12.0-18.0) L 02/17/18 06:20 Hct 29.2 % (35.0-51.0) L 02/17/18 06:20 MCV 93.5 fL (80.0-94.0) 02/17/18 06:20 MCH 33.4 pg (27.0-31.0) H 02/17/18 06:20 MCHC 35.7 g/dL (33.0-37.0) 02/17/18 06:20 RDW 15.3 % (11.5-14.5) H 02/17/18 06:20 Plt Count 112 K/uL (130-400) L 02/17/18 06:20 MPV 11.1 fL (7.2-11.7) 02/17/18 06:20 Neut % (Auto) 53.2 % (50.0-75.0) 02/17/18 06:20 Lymph % (Auto) 32.3 % (20.0-40.0) 02/17/18 06:20 [place] % (Auto) 10.3 % (0.0-10.0) H 02/17/18 06:20 Eos % (Auto) 3.8 % (0.0-4.0) 02/17/18 06:20 Baso % (Auto) 0.4 % (0.0-2.0) 02/17/18 06:20 Neut # (Auto) 2.3 K/uL (1.8-7.0) 02/17/18 06:20 Lymph # (Auto) 1.4 K/uL (1.0-4.3) 02/17/18 06:20 [place] # (Auto) 0.4 K/uL (0.0-0.8) 02/17/18 06:20 Eos # (Auto) 0.2 K/uL (0.0-0.7) 02/17/18 06:20 Baso # (Auto) 0.0 K/uL (0.0-0.2) 02/17/18 06:20 Neutrophils % (Manual) 91 % (50-75) H 01/16/18 12:27 Band Neutrophils % 1 % (0-2) 01/16/18 12:27 Lymphocytes % (Manual) 7 % (20-40) L 01/16/18 12:27 Monocytes % (Manual) 1 % (0-10) 01/16/18 12:27 Differential Comment 02/08/18 20:47 Platelet Estimate Normal (NORMAL) 01/16/18 12:27 RBC Morphology Normal 01/16/18 12:27 PT 12.6 SECONDS (9.7-12.2) H D 02/15/18 06:24 INR 1.1 D 02/15/18 06:24 APTT 47 SECONDS (21-34) H D 02/17/18 06:21 Hep-Aria Thrombocytopen Positive (Negative) H 02/09/18 12:02 Puncture Site R brac 02/17/18 05:22 pCO2 45 mm/Hg (35-45) 02/17/18 05:22 pO2 102 mm/Hg (80-100) H 02/17/18 05:22 HCO3 31.3 mmol/L (21-28) H 02/17/18 05:22 ABG pH 7.47 (7.35-7.45) H 02/17/18 05:22 ABG Total CO2 34.2 mmol/L (22-28) H 02/17/18 05:22 ABG O2 Saturation 99.0 % (95-98) H 02/17/18 05:22 ABG Base Excess 8.2 mmol/L (-2.0-3.0) H 02/17/18 05:22 ABG Hemoglobin 10.3 g/dL (11.7-17.4) L 02/17/18 05:22 ABG Carboxyhemoglobin 2.0 % (0.5-1.5) H 02/17/18 05:22 POC ABG HHb (Measured) 1.0 % (0.0-5.0) 02/17/18 05:22 ABG Methemoglobin 1.0 % (0.0-3.0) 02/17/18 05:22 Jamey Test Na 02/17/18 05:22 ABG Potassium 3.9 mmol/L (3.6-5.2) 02/13/18 05:28 A-a O2 Difference 198.0 mm/Hg 02/17/18 05:22 Respiratory Index 1.9 02/17/18 05:22 Hgb O2 Saturation 95.9 % (95.0-98.0) 02/17/18 05:22 Sodium 139.0 mmol/l (132-148) 02/13/18 05:28 Chloride 108.0 mmol/L (98-107) H 02/13/18 05:28 Glucose 279 mg/dl (75-110) H 02/13/18 05:28 Lactate 1.1 mmol/L (0.7-2.1) 02/13/18 05:28 Vent Mode Prvc 02/17/18 05:22 Mechanical Rate 15 02/17/18 05:22 FiO2 50.0 % 02/17/18 05:22 Tidal Volume 400 02/17/18 05:22 PEEP 5 02/17/18 05:22 Pressure Support 15 01/29/18 04:30 CPAP 5 01/29/18 04:30 Inspiratory BiPAP 12 01/31/18 05:20 Expiratory BiPAP 6 01/31/18 05:20 Crit Value Called To Vanessa craft auricular detoxification specialist 01/21/18 05:02 Crit Value Called By Cathy lindsey rt 01/21/18 05:02 Crit Value Read Back Y 01/21/18 05:02 Blood Gas Notified Time 600 01/21/18 05:02 Sodium 135 mmol/L (132-148) 02/17/18 06:18 Potassium 4.1 mmol/L (3.6-5.2) 02/17/18 06:18 Chloride 100 mmol/L (98-107) 02/17/18 06:18 Carbon Dioxide 28 mmol/L (22-30) 02/17/18 06:18 Anion Gap 11 (10-20) 02/17/18 06:18 BUN 18 mg/dL (9-20) 02/17/18 06:18 Creatinine 0.9 mg/dL (0.8-1.5) 02/17/18 06:18 Est GFR ( Amer) > 60 02/17/18 06:18 Est GFR (Non-Af Amer) > 60 02/17/18 06:18 POC Glucose (mg/dL) 266 mg/dL (65-110) H 02/17/18 17:31 Random Glucose 276 mg/dL (75-110) H 02/17/18 06:18 Hemoglobin A1c 9.2 % (4.2-6.5) H 01/16/18 12:27 Serum Osmolality 357 mosm/kg (272-300) H 02/08/18 17:39 Calcium 7.8 mg/dl (8.6-10.4) L 02/17/18 06:18 Phosphorus 3.2 mg/dL (2.5-4.5) 02/17/18 06:18 Magnesium 2.0 mg/dL (1.6-2.3) 02/17/18 06:18 Total Bilirubin 0.9 mg/dL (0.2-1.3) 02/17/18 06:18 AST 20 U/L (17-59) 02/17/18 06:18 ALT 20 U/L (21-72) L D 02/17/18 06:18 Alkaline Phosphatase 91 U/L (38-126) 02/17/18 06:18 Ammonia 12 umol/L (9-33) D 02/09/18 11:25 Total Creatine Kinase 60 U/L (55-170) 02/09/18 04:45 CK-MB (Mass) 0.99 ng/mL (0.0-3.38) 02/09/18 04:45 Troponin I 0.0810 ng/mL (0.00-0.120) 02/09/18 04:45 Total Protein 5.7 g/dL (6.3-8.3) L 02/17/18 06:18 Albumin 2.8 g/dL (3.5-5.0) L 02/17/18 06:18 Globulin 3.0 gm/dL (2.2-3.9) 02/17/18 06:18 Albumin/Globulin Ratio 0.9 (1.0-2.1) L 02/17/18 06:18 Triglycerides 115 mg/dL (0-149) 01/16/18 12:27 Cholesterol 186 mg/dL (0-199) 01/16/18 12:27 LDL Cholesterol Direct 103 mg/dL (0-129) 01/16/18 12:27 HDL Cholesterol 49 mg/dL (30-70) 01/16/18 12:27 Amylase 39 U/L (30-110) 02/02/18 06:16 Lipase 60 U/L (23-300) 02/02/18 06:16 UF Heparin Interp Negative (Negative) 02/09/18 12:02 Procalcitonin < 0.05 NG/ML (0.19-0.49) L 02/13/18 10:54 TSH 3rd Generation 0.97 mIU/L (0.46-4.68) 02/05/18 06:39 Arterial Blood Potassium 3.9 mmol/L (3.6-5.2) 02/13/18 05:28 Urine Color Yellow (YELLOW) 02/08/18 16:23 Urine Clarity Hazy (Clear) 02/08/18 16:23 Urine pH 5.0 (5.0-8.0) 02/08/18 16:23 Ur Specific [place] 1.027 (1.003-1.030) 02/08/18 16:23 Urine Protein 2+ mg/dL (NEGATIVE) H 02/08/18 16:23 Urine Glucose (UA) 3+ mg/dL (Normal) H 02/08/18 16:23 Urine Ketones Negative mg/dL (NEGATIVE) 02/08/18 16:23 Urine Blood Negative (NEGATIVE) 02/08/18 16:23 Urine Nitrate Negative (NEGATIVE) 02/08/18 16:23 Urine Bilirubin Negative (NEGATIVE) 02/08/18 16:23 Urine Urobilinogen Normal mg/dL (0.2-1.0) 02/08/18 16:23 Ur Leukocyte Esterase Neg Minh/uL (Negative) 02/08/18 16:23 Urine WBC (Auto) 2 /hpf (0-5) 02/08/18 16:23 Urine RBC (Auto) 5 /hpf (0-3) H 02/08/18 16:23 Ur Squamous Epith Cells 1 /hpf (0-5) 02/08/18 16:23 Urine Bacteria Occ (<OCC) H 01/31/18 15:49 Granular Casts (Auto) 0-2 /lpf (0-1) 02/08/18 16:23 Urine Yeast (Budding) Occ /hpf (NEGATIVE) H 02/08/18 16:23 Urine Osmolality 764 mosm/kg (300-1000) 02/08/18 16:23 Ur Random Sodium 49 mmol/L 01/20/18 18:08 Ur Random Potassium 63.3 mmol/L 02/08/18 17:25 Ur Random Urea Nitrogn 758 mg/dL 01/20/18 18:08 Ur Random Glucose 4679 mg/dL 01/20/18 18:08 Urine Chloride 44 mmol/L (32-290) 01/20/18 18:08 Vancomycin Trough 5.2 ug/mL (5.0-10.0) 02/12/18 05:58 Urine Opiates Screen Negative (NEGATIVE) 02/09/18 08:26 Urine Methadone Screen Negative (NEGATIVE) 02/09/18 08:26 Ur Barbiturates Screen Negative (NEGATIVE) 02/09/18 08:26 Levetiracetam 26.1 mcg/mL 02/09/18 12:02 Ur Phencyclidine Scrn Negative (NEGATIVE) 02/09/18 08:26 Ur Amphetamines Screen Negative (NEGATIVE) 02/09/18 08:26 U Benzodiazepines Scrn Positive (NEGATIVE) 02/09/18 08:26 U Oth Cocaine Metabols Negative (NEGATIVE) 02/09/18 08:26 U Cannabinoids Screen Negative (NEGATIVE) 02/09/18 08:26 Heparin-induced Plt Ab Negative (Negative) 02/09/18 12:02 POLO UFH Low Dose 0.1 0 % Release 02/09/18 12:02 POLO UFH Low Dose 0.5 0 % Release 02/09/18 12:02 POLO UFH High Dose 100 0 % Release 02/09/18 12:02 RPR Nonreactive (NONREACTIVE) 01/26/18 18:26 Lyme Disease Screen <0.90 index 02/05/18 06:39 West Nile Virus IgG Ab 4.84 H 01/26/18 18:26 West Nile Virus IgM Ab 0.06 01/26/18 18:26 Hepatitis A IgM Ab Negative (NEGATIVE) 01/27/18 06:03 Hep Bs Antigen Negative (NEGATIVE) 01/27/18 06:03 Hep B Core IgM Ab Negative (NEGATIVE) 01/27/18 06:03 Hepatitis C Antibody Negative (NEGATIVE) 01/27/18 06:03 HIV 1&2 Antibody Screen Negative (NEGATIVE) 01/27/18 06:03 Influenza Typ A,B (EIA) Negative for flu a/b (NEGATIVE) 01/27/18 06:03 Ur L.pneumophila Ag Negative (NEGATIVE) 01/17/18 15:02 Mycoplasma pneumon IgM Negative (NEGATIVE) 01/17/18 15:02 Grp A Beta Strep Ag Negative (NEGATIVE) 01/26/18 18:26 Blood Type O POSITIVE 02/07/18 20:58 Antibody Screen Negative 02/07/18 20:58 chest x-ray nonspecific On heparin drip Assessment and recommendation: 67-year-old male with multiple medical problems including hypertension, diabetes , CAD, coronary artery bypass gra respiratory failure. on ventilator Continue to monitor discussed with family for tracheostomy CCU Objective - Vital Signs / Intake & Output Vital Signs (Last 4 hours): Vital Signs Temp Pulse Resp BP Pulse Ox 02/17/18 17:17 107/62 02/17/18 16:12 78 16 110/46 L 99 02/17/18 16:00 99.2 F 100 02/17/18 15:13 69 20 108/43 L 98 02/17/18 14:13 74 16 130/62 99 Intake and Output (Last 8hrs): Intake & Output 02/17/18 02/17/18 02/17/18 06:59 14:59 22:59 Intake Total 725.8 800.8 125.2 Output Total 630 800 180 Balance 95.8 0.8 -54.8 Weight 219 lb Intake: IV 145 Intake, IV Amount 250.8 400.8 25.2 Left Distal Port Internal 150 300 Jugular Left Medial Port Internal 100.8 100.8 25.2 Jugular Tube Feeding 330 400 100 Output: Urine 630 800 180 2-way Urethral 630 800 180 Other: # Bowel Movements 0 0 - Physical Exam Head: Positive for: Atraumatic, Normocephalic Pupils: Positive for: PERRL Conjunctiva: Positive for: Normal Mouth: Positive for: Moist Mucous Membranes, Other (ETT) Neck: Positive for: Normal Range of Motion Respiratory/Chest: Positive for: Clear to Auscultation, Good Air Exchange. Negative for: Respiratory Distress Cardiovascular: Positive for: Regular Rate and Rhythm, Normal S1, S2. Negative for: Tachycardic Abdomen: Positive for: Normal Bowel Sounds, Feeding Tubes (+peg tube), Other ( Obese). Negative for: Tenderness, Distention, Peritoneal Signs Upper Extremity: Positive for: Normal Inspection Lower Extremity: Positive for: Normal Inspection Neurological: Positive for: Other (Moves all extremities) Skin: Positive for: Warm, Dry Psychiatric: Positive for: Alert - Medications Active Medications: Active Medications Generic Name Dose Route Start Last Admin Trade Name Freq PRN Reason Stop Dose Admin Acetaminophen 650 mg 01/19/18 00:50 02/05/18 20:48 Tylenol 650mg/20.3ml Solution Ud NG 650 mg Q6 PRN Administration GIVE FOR TEMP. 100*F OR ABOVE Acetylcysteine 4 ml 02/12/18 20:00 02/17/18 08:04 Acetylcysteine 20% INH 4 ml RQ12 SHINE Administration Albuterol/Ipratropium 3 ml 01/26/18 20:00 02/17/18 13:34 Duoneb 3 Mg/0.5 Mg (3 Ml) Ud INH 3 ml RQ6 SHINE Administration Aspirin 81 mg 01/17/18 10:00 02/17/18 09:08 Aspirin Chewable PO 81 mg DAILY SHINE Administration Carvedilol 12.5 mg 01/22/18 09:07 02/17/18 17:17 Coreg PO 12.5 mg BID SHINE Administration Docusate Sodium 100 mg 02/15/18 18:00 02/17/18 17:09 Colace PO Not Given BID SHINE Hydralazine HCl 100 mg 02/03/18 00:29 02/17/18 14:41 Apresoline PO 100 mg Q8 SHINE Administration Levetiracetam 500 mg/ Dextrose 55 mls @ 420 mls/hr 02/08/18 22:00 02/17/18 09 :20 IVPB 420 mls/hr Q12H SHINE Administration Vancomycin HCl 1 gm/ Dextrose 250 mls @ 166.7 mls/hr 02/08/18 19:30 02/16/18 18:35 IVPB 166.7 mls/hr Q48H SHINE Administration Protocol Acyclovir 750 mg/ Dextrose 250 mls @ 100 mls/hr 02/08/18 20:00 02/17/18 07:42 IV 100 mls/hr Q12H SHINE Administration Protocol Cefepime HCl 2 gm in 100 mls @ 200 mls/hr 02/14/18 07:00 02/17/18 06:00 Maxipime Iv 2 Gm Premix IVPB 02/19/18 07:01 200 mls/hr Q12H SHINE Administration Protocol Heparin Sodium/Sodium Chloride 25,000 units in 250 mls @ 13.498 mls/hr 11:54 02/17/18 04:54 Heparin 48399 Units/250ml 1/2 Normal Saline IV 13 u/kg/hr .[id number] PRN 12.534 mls/hr ADJUST RATE PER PROTOCOL Administration Protocol 14 U/KG/HR Insulin Aspart 0 unit 02/09/18 18:56 02/17/18 11:59 Novolog SC 6 unit Q6 SHINE Administration Protocol Insulin Glargine 20 unit 02/09/18 08:00 02/17/18 07:42 Lantus SC 20 u Q12H SHINE Administration Lorazepam 2 mg 02/14/18 14:07 02/17/18 02:12 Ativan IVP 2 mg Q3H PRN Administration Anxiety Pantoprazole Sodium 40 mg 02/13/18 11:30 02/17/18 09:09 Protonix Inj IVP 40 mg DAILY SHINE Administration Tamsulosin HCl 0.4 mg 01/30/18 20:00 02/17/18 09:09 Flomax PO 0.4 mg DAILY SHINE Administration - Patient Studies Lab Studies: Lab Studies 02/17/18 02/17/18 02/17/18 Range/Units 17:31 11:29 06:21 WBC (4.8-10.8) K/uL RBC (4.40-5.90) Mil/uL Hgb (12.0-18.0) g/dL Hct (35.0-51.0) % MCV (80.0-94.0) fL MCH (27.0-31.0) pg MCHC (33.0-37.0) g/dL RDW (11.5-14.5) % Plt Count (130-400) K/uL MPV (7.2-11.7) fL Neut % (Auto) (50.0-75.0) % Lymph % (Auto) (20.0-40.0) % [place] % (Auto) (0.0-10.0) % Eos % (Auto) (0.0-4.0) % Baso % (Auto) (0.0-2.0) % Neut # (Auto) (1.8-7.0) K/uL Lymph # (Auto) (1.0-4.3) K/uL [place] # (Auto) (0.0-0.8) K/uL Eos # (Auto) (0.0-0.7) K/uL Baso # (Auto) (0.0-0.2) K/uL APTT 47 H D (21-34) SECONDS Puncture Site pCO2 (35-45) mm/Hg pO2 (80-100) mm/Hg HCO3 (21-28) mmol/L ABG pH (7.35-7.45) ABG Total CO2 (22-28) mmol/L ABG O2 Saturation (95-98) % ABG Base Excess (-2.0-3.0) mmol/L ABG Hemoglobin (11.7-17.4) g/dL ABG Carboxyhemoglobin (0.5-1.5) % POC ABG HHb (Measured) (0.0-5.0) % ABG Methemoglobin (0.0-3.0) % Jamey Test A-a O2 Difference mm/Hg Respiratory Index Hgb O2 Saturation (95.0-98.0) % Vent Mode Mechanical Rate FiO2 % Tidal Volume PEEP Sodium (132-148) mmol/L Potassium (3.6-5.2) mmol/L Chloride (98-107) mmol/L Carbon Dioxide (22-30) mmol/L Anion Gap (10-20) BUN (9-20) mg/dL Creatinine (0.8-1.5) mg/dL Est GFR ( Amer) Est GFR (Non-Af Amer) POC Glucose (mg/dL) 266 H 263 H (65-110) mg/dL Random Glucose (75-110) mg/dL Calcium (8.6-10.4) mg/dl Phosphorus (2.5-4.5) mg/dL Magnesium (1.6-2.3) mg/dL Total Bilirubin (0.2-1.3) mg/dL AST (17-59) U/L ALT (21-72) U/L Alkaline Phosphatase (38-126) U/L Total Protein (6.3-8.3) g/dL Albumin (3.5-5.0) g/dL Globulin (2.2-3.9) gm/dL Albumin/Globulin Ratio (1.0-2.1) 02/17/18 02/17/18 02/17/18 Range/Units 06:20 06:18 05:27 WBC 4.3 L (4.8-10.8) K/uL RBC 3.13 L (4.40-5.90) Mil/uL Hgb 10.4 L (12.0-18.0) g/dL Hct 29.2 L (35.0-51.0) % MCV 93.5 (80.0-94.0) fL MCH 33.4 H (27.0-31.0) pg MCHC 35.7 (33.0-37.0) g/dL RDW 15.3 H (11.5-14.5) % Plt Count 112 L (130-400) K/uL MPV 11.1 (7.2-11.7) fL Neut % (Auto) 53.2 (50.0-75.0) % Lymph % (Auto) 32.3 (20.0-40.0) % [place] % (Auto) 10.3 H (0.0-10.0) % Eos % (Auto) 3.8 (0.0-4.0) % Baso % (Auto) 0.4 (0.0-2.0) % Neut # (Auto) 2.3 (1.8-7.0) K/uL Lymph # (Auto) 1.4 (1.0-4.3) K/uL [place] # (Auto) 0.4 (0.0-0.8) K/uL Eos # (Auto) 0.2 (0.0-0.7) K/uL Baso # (Auto) 0.0 (0.0-0.2) K/uL APTT (21-34) SECONDS Puncture Site pCO2 (35-45) mm/Hg pO2 (80-100) mm/Hg HCO3 (21-28) mmol/L ABG pH (7.35-7.45) ABG Total CO2 (22-28) mmol/L ABG O2 Saturation (95-98) % ABG Base Excess (-2.0-3.0) mmol/L ABG Hemoglobin (11.7-17.4) g/dL ABG Carboxyhemoglobin (0.5-1.5) % POC ABG HHb (Measured) (0.0-5.0) % ABG Methemoglobin (0.0-3.0) % Jamey Test A-a O2 Difference mm/Hg Respiratory Index Hgb O2 Saturation (95.0-98.0) % Vent Mode Mechanical Rate FiO2 % Tidal Volume PEEP Sodium 135 (132-148) mmol/L Potassium 4.1 (3.6-5.2) mmol/L Chloride 100 (98-107) mmol/L Carbon Dioxide 28 (22-30) mmol/L Anion Gap 11 (10-20) BUN 18 (9-20) mg/dL Creatinine 0.9 (0.8-1.5) mg/dL Est GFR ( Amer) > 60 Est GFR (Non-Af Amer) > 60 POC Glucose (mg/dL) 262 H (65-110) mg/dL Random Glucose 276 H (75-110) mg/dL Calcium 7.8 L (8.6-10.4) mg/dl Phosphorus 3.2 (2.5-4.5) mg/dL Magnesium 2.0 (1.6-2.3) mg/dL Total Bilirubin 0.9 (0.2-1.3) mg/dL AST 20 (17-59) U/L ALT 20 L D (21-72) U/L Alkaline Phosphatase 91 (38-126) U/L Total Protein 5.7 L (6.3-8.3) g/dL Albumin 2.8 L (3.5-5.0) g/dL Globulin 3.0 (2.2-3.9) gm/dL Albumin/Globulin Ratio 0.9 L (1.0-2.1) 02/17/18 02/16/18 02/16/18 Range/Units 05:22 23:40 22:26 WBC (4.8-10.8) K/uL RBC (4.40-5.90) Mil/uL Hgb (12.0-18.0) g/dL Hct (35.0-51.0) % MCV (80.0-94.0) fL MCH (27.0-31.0) pg MCHC (33.0-37.0) g/dL RDW (11.5-14.5) % Plt Count (130-400) K/uL MPV (7.2-11.7) fL Neut % (Auto) (50.0-75.0) % Lymph % (Auto) (20.0-40.0) % [place] % (Auto) (0.0-10.0) % Eos % (Auto) (0.0-4.0) % Baso % (Auto) (0.0-2.0) % Neut # (Auto) (1.8-7.0) K/uL Lymph # (Auto) (1.0-4.3) K/uL [place] # (Auto) (0.0-0.8) K/uL Eos # (Auto) (0.0-0.7) K/uL Baso # (Auto) (0.0-0.2) K/uL APTT 68 H D (21-34) SECONDS Puncture Site R brac pCO2 45 (35-45) mm/Hg pO2 102 H (80-100) mm/Hg HCO3 31.3 H (21-28) mmol/L ABG pH 7.47 H (7.35-7.45) ABG Total CO2 34.2 H (22-28) mmol/L ABG O2 Saturation 99.0 H (95-98) % ABG Base Excess 8.2 H (-2.0-3.0) mmol/L ABG Hemoglobin 10.3 L (11.7-17.4) g/dL ABG Carboxyhemoglobin 2.0 H (0.5-1.5) % POC ABG HHb (Measured) 1.0 (0.0-5.0) % ABG Methemoglobin 1.0 (0.0-3.0) % Jamey Test Na A-a O2 Difference 198.0 mm/Hg Respiratory Index 1.9 Hgb O2 Saturation 95.9 (95.0-98.0) % Vent Mode Prvc Mechanical Rate 15 FiO2 50.0 % Tidal Volume 400 PEEP 5 Sodium (132-148) mmol/L Potassium (3.6-5.2) mmol/L Chloride (98-107) mmol/L Carbon Dioxide (22-30) mmol/L Anion Gap (10-20) BUN (9-20) mg/dL Creatinine (0.8-1.5) mg/dL Est GFR ( Amer) Est GFR (Non-Af Amer) POC Glucose (mg/dL) 281 H (65-110) mg/dL Random Glucose (75-110) mg/dL Calcium (8.6-10.4) mg/dl Phosphorus (2.5-4.5) mg/dL Magnesium (1.6-2.3) mg/dL Total Bilirubin (0.2-1.3) mg/dL AST (17-59) U/L ALT (21-72) U/L Alkaline Phosphatase (38-126) U/L Total Protein (6.3-8.3) g/dL Albumin (3.5-5.0) g/dL Globulin (2.2-3.9) gm/dL Albumin/Globulin Ratio (1.0-2.1) 18 Range/Units 17:46 WBC (4.8-10.8) K/uL RBC (4.40-5.90) Mil/uL Hgb (12.0-18.0) g/dL Hct (35.0-51.0) % MCV (80.0-94.0) fL MCH (27.0-31.0) pg MCHC (33.0-37.0) g/dL RDW (11.5-14.5) % Plt Count (130-400) K/uL MPV (7.2-11.7) fL Neut % (Auto) (50.0-75.0) % Lymph % (Auto) (20.0-40.0) % [place] % (Auto) (0.0-10.0) % Eos % (Auto) (0.0-4.0) % Baso % (Auto) (0.0-2.0) % Neut # (Auto) (1.8-7.0) K/uL Lymph # (Auto) (1.0-4.3) K/uL [place] # (Auto) (0.0-0.8) K/uL Eos # (Auto) (0.0-0.7) K/uL Baso # (Auto) (0.0-0.2) K/uL APTT (21-34) SECONDS Puncture Site pCO2 (35-45) mm/Hg pO2 (80-100) mm/Hg HCO3 (21-28) mmol/L ABG pH (7.35-7.45) ABG Total CO2 (22-28) mmol/L ABG O2 Saturation (95-98) % ABG Base Excess (-2.0-3.0) mmol/L ABG Hemoglobin (11.7-17.4) g/dL ABG Carboxyhemoglobin (0.5-1.5) % POC ABG HHb (Measured) (0.0-5.0) % ABG Methemoglobin (0.0-3.0) % Jamey Test A-a O2 Difference mm/Hg Respiratory Index Hgb O2 Saturation (95.0-98.0) % Vent Mode Mechanical Rate FiO2 % Tidal Volume PEEP Sodium (132-148) mmol/L Potassium (3.6-5.2) mmol/L Chloride (98-107) mmol/L Carbon Dioxide (22-30) mmol/L Anion Gap (10-20) BUN (9-20) mg/dL Creatinine (0.8-1.5) mg/dL Est GFR ( Amer) Est GFR (Non-Af Amer) POC Glucose (mg/dL) 233 H (65-110) mg/dL Random Glucose (75-110) mg/dL Calcium (8.6-10.4) mg/dl Phosphorus (2.5-4.5) mg/dL Magnesium (1.6-2.3) mg/dL Total Bilirubin (0.2-1.3) mg/dL AST (17-59) U/L ALT (21-72) U/L Alkaline Phosphatase (38-126) U/L Total Protein (6.3-8.3) g/dL Albumin (3.5-5.0) g/dL Globulin (2.2-3.9) gm/dL Albumin/Globulin Ratio (1.0-2.1) Laboratory Results - last 24 hr 02/16/18 02/16/18 02/16/18 17:46 22:26 23:40 WBC RBC Hgb Hct MCV MCH MCHC RDW Plt Count MPV Neut % (Auto) Lymph % (Auto) [place] % (Auto) Eos % (Auto) Baso % (Auto) Neut # (Auto) Lymph # (Auto) [place] # (Auto) Eos # (Auto) Baso # (Auto) APTT 68 H D Puncture Site pCO2 pO2 HCO3 ABG pH ABG Total CO2 ABG O2 Saturation ABG Base Excess ABG Hemoglobin ABG Carboxyhemoglobin POC ABG HHb (Measured) ABG Methemoglobin Jamey Test A-a O2 Difference Respiratory Index Hgb O2 Saturation Vent Mode Mechanical Rate FiO2 Tidal Volume PEEP Sodium Potassium Chloride Carbon Dioxide Anion Gap BUN Creatinine Est GFR ( Amer) Est GFR (Non-Af Amer) POC Glucose (mg/dL) 233 H 281 H Random Glucose Calcium Phosphorus Magnesium Total Bilirubin AST ALT Alkaline Phosphatase Total Protein Albumin Globulin Albumin/Globulin Ratio 02/17/18 02/17/18 02/17/18 05:22 05:27 06:18 WBC RBC Hgb Hct MCV MCH MCHC RDW Plt Count MPV Neut % (Auto) Lymph % (Auto) [place] % (Auto) Eos % (Auto) Baso % (Auto) Neut # (Auto) Lymph # (Auto) [place] # (Auto) Eos # (Auto) Baso # (Auto) APTT Puncture Site R brac pCO2 45 pO2 102 H HCO3 31.3 H ABG pH 7.47 H ABG Total CO2 34.2 H ABG O2 Saturation 99.0 H ABG Base Excess 8.2 H ABG Hemoglobin 10.3 L ABG Carboxyhemoglobin 2.0 H POC ABG HHb (Measured) 1.0 ABG Methemoglobin 1.0 Jamey Test Na A-a O2 Difference 198.0 Respiratory Index 1.9 Hgb O2 Saturation 95.9 Vent Mode Prvc Mechanical Rate 15 FiO2 50.0 Tidal Volume 400 PEEP 5 Sodium 135 Potassium 4.1 Chloride 100 Carbon Dioxide 28 Anion Gap 11 BUN 18 Creatinine 0.9 Est GFR ( Amer) > 60 Est GFR (Non-Af Amer) > 60 POC Glucose (mg/dL) 262 H Random Glucose 276 H Calcium 7.8 L Phosphorus 3.2 Magnesium 2.0 Total Bilirubin 0.9 AST 20 ALT 20 L D Alkaline Phosphatase 91 Total Protein 5.7 L Albumin 2.8 L Globulin 3.0 Albumin/Globulin Ratio 0.9 L 02/17/18 02/17/18 02/17/18 06:20 06:21 11:29 WBC 4.3 L RBC 3.13 L Hgb 10.4 L Hct 29.2 L MCV 93.5 MCH 33.4 H MCHC 35.7 RDW 15.3 H Plt Count 112 L MPV 11.1 Neut % (Auto) 53.2 Lymph % (Auto) 32.3 [place] % (Auto) 10.3 H Eos % (Auto) 3.8 Baso % (Auto) 0.4 Neut # (Auto) 2.3 Lymph # (Auto) 1.4 [place] # (Auto) 0.4 Eos # (Auto) 0.2 Baso # (Auto) 0.0 APTT 47 H D Puncture Site pCO2 pO2 HCO3 ABG pH ABG Total CO2 ABG O2 Saturation ABG Base Excess ABG Hemoglobin ABG Carboxyhemoglobin POC ABG HHb (Measured) ABG Methemoglobin Jamey Test A-a O2 Difference Respiratory Index Hgb O2 Saturation Vent Mode Mechanical Rate FiO2 Tidal Volume PEEP Sodium Potassium Chloride Carbon Dioxide Anion Gap BUN Creatinine Est GFR ( Amer) Est GFR (Non-Af Amer) POC Glucose (mg/dL) 263 H Random Glucose Calcium Phosphorus Magnesium Total Bilirubin AST ALT Alkaline Phosphatase Total Protein Albumin Globulin Albumin/Globulin Ratio 02/17/18 17:31 WBC RBC Hgb Hct MCV MCH MCHC RDW Plt Count MPV Neut % (Auto) Lymph % (Auto) [place] % (Auto) Eos % (Auto) Baso % (Auto) Neut # (Auto) Lymph # (Auto) [place] # (Auto) Eos # (Auto) Baso # (Auto) APTT Puncture Site pCO2 pO2 HCO3 ABG pH ABG Total CO2 ABG O2 Saturation ABG Base Excess ABG Hemoglobin ABG Carboxyhemoglobin POC ABG HHb (Measured) ABG Methemoglobin Jamey Test A-a O2 Difference Respiratory Index Hgb O2 Saturation Vent Mode Mechanical Rate FiO2 Tidal Volume PEEP Sodium Potassium Chloride Carbon Dioxide Anion Gap BUN Creatinine Est GFR ( Amer) Est GFR (Non-Af Amer) POC Glucose (mg/dL) 266 H Random Glucose Calcium Phosphorus Magnesium Total Bilirubin AST ALT Alkaline Phosphatase Total Protein Albumin Globulin Albumin/Globulin Ratio Fingerstick Blood Sugar Results: 263
--- NOTE | 2018-02-17 22:36 | CP.PCM.PN ---
Subjective - Date & Time of Evaluation Date of Evaluation: 02/17/18 Time of Evaluation: 09:40 - Subjective Subjective: Pt seen and evaluated in ICU, remains on MV with FiO2 of 50%, afebrile, no distress Objective - Vital Signs/Intake and Output Vital Signs (last 24 hours): Temp Pulse Resp BP Pulse Ox 99.8 F H 78 19 104/51 L 100 02/17/18 20:00 02/17/18 21:00 02/17/18 21:00 02/17/18 20:51 02/17/18 21:00 Intake and Output: 02/17/18 02/18/18 18:59 06:59 Intake Total 1051.2 437.8 Output Total 1145 75 Balance -93.8 362.8 - Medications Medications: Current Medications Acetaminophen (Tylenol 650mg/20.3ml Solution Ud) 650 mg NG Q6 PRN PRN Reason: GIVE FOR TEMP. 100*F OR ABOVE Last Admin: 02/05/18 20:48 Dose: 650 mg Acetylcysteine (Acetylcysteine 20%) 4 ml INH RQ12 [facility] Last Admin: 02/17/18 19:17 Dose: 4 ml Albuterol/Ipratropium (Duoneb 3 Mg/0.5 Mg (3 Ml) Ud) 3 ml INH RQ6 [facility] Last Admin: 02/17/18 19:17 Dose: 3 ml Aspirin (Aspirin Chewable) 81 mg PO DAILY [facility] Last Admin: 02/17/18 09:08 Dose: 81 mg Carvedilol (Coreg) 12.5 mg PO BID [facility] Last Admin: 02/17/18 17:17 Dose: 12.5 mg Docusate Sodium (Colace) 100 mg PO BID [facility] Last Admin: 02/17/18 17:09 Dose: Not Given Hydralazine HCl (Apresoline) 100 mg PO Q8 [facility] Last Admin: 02/17/18 21:39 Dose: 100 mg Levetiracetam 500 mg/ Dextrose 55 mls @ 420 mls/hr IVPB Q12H [facility] Last Admin: 02/17/18 21:36 Dose: 420 mls/hr Vancomycin HCl 1 gm/ Dextrose 250 mls @ 166.7 mls/hr IVPB Q48H [facility] PRN Reason: Protocol Last Admin: 02/16/18 18:35 Dose: 166.7 mls/hr Acyclovir 750 mg/ Dextrose 250 mls @ 100 mls/hr IV Q12H [facility] PRN Reason: Protocol Last Admin: 02/17/18 21:33 Dose: 100 mls/hr Cefepime HCl (Maxipime Iv 2 Gm Premix) 2 gm in 100 mls @ 200 mls/hr IVPB Q12H [facility] PRN Reason: Protocol Stop: 02/19/18 07:01 Last Admin: 02/17/18 18:24 Dose: 200 mls/hr Heparin Sodium/Sodium Chloride (Heparin 18216 Units/250ml 1/2 Normal Saline) 25 ,000 units in 250 mls @ 13.498 mls/hr IV .[id number] PRN; Protocol; 14 U/KG/HR PRN Reason: ADJUST RATE PER PROTOCOL Last Admin: 02/17/18 04:54 Dose: 13 u/kg/hr, 12.534 mls/hr Insulin Aspart (Novolog) 0 unit SC Q6 [facility] PRN Reason: Protocol Last Admin: 02/17/18 18:24 Dose: 6 unit Insulin Glargine (Lantus) 20 unit SC Q12H [facility] Last Admin: 02/17/18 21:00 Dose: 20 u Lorazepam (Ativan) 2 mg IVP Q3H PRN PRN Reason: Anxiety Last Admin: 02/17/18 02:12 Dose: 2 mg Pantoprazole Sodium (Protonix Inj) 40 mg IVP DAILY [facility] Last Admin: 02/17/18 09:09 Dose: 40 mg Tamsulosin HCl (Flomax) 0.4 mg PO DAILY [facility] Last Admin: 02/17/18 09:09 Dose: 0.4 mg - Labs Labs: 02/17/18 06:20 02/17/18 06:18 PT 12.6 SECONDS (9.7-12.2) H D 02/15/18 06:24 INR 1.1 D 02/15/18 06:24 APTT 47 SECONDS (21-34) H D 02/17/18 06:21 - Constitutional Appears: No Acute Distress, Chronically Ill - Head Exam Head Exam: ATRAUMATIC, NORMAL INSPECTION, NORMOCEPHALIC - Respiratory Exam Respiratory Exam: Decreased Breath Sounds, Rhonchi - Cardiovascular Exam Cardiovascular Exam: REGULAR RHYTHM, +S1, +S2. absent: Murmur - GI/Abdominal Exam GI & Abdominal Exam: Soft, Normal Bowel Sounds. absent: Tenderness Assessment and Plan (1) Status epilepticus Status: Acute (2) COPD (chronic obstructive pulmonary disease) Status: Acute (3) Congestive heart failure Status: Acute (4) Diabetes Status: Acute (5) Hypernatremia Status: Acute (6) Acute respiratory failure Status: Acute (7) Ischemic encephalopathy Status: Acute (8) Acute respiratory failure with hypoxia Status: Acute
[2018-02-18] MEDS: (Novolog) Insulin Aspart, Recombinant 100 u/ml 10 ml vial SC SCH ×2 (00:49→06:08)
[2018-02-18] MEDS: Albuterol-Ipratrop 3 mg / 0.5 (3 ml) UD INH SCH ×2 (00:59→07:24)
[2018-02-18] MEDS: Heparin25000 units/250ml 1/2NS 25,000 UNITS/250 ML BAG IV PRN (02:39)
[2018-02-18 06:07] LABS: BASO % 0.5 % (0.0-2.0); EOS # 0.2 K/uL (0.0-0.7); HEMOGLOBIN 9.7 g/dL (12.0-18.0); LYMPH # 1.2 K/uL (1.0-4.3); LYMPH % 27.1 % (20.0-40.0); MEAN CELL VOLUME 94.8 fL (80.0-94.0); MEAN CORPUSCULAR HEMOGLOBIN 32.6 pg (27.0-31.0); MEAN CORPUSCULAR HGB CONC 34.4 g/dL (33.0-37.0); MEAN PLATELET VOLUME 11.6 fL (7.2-11.7); MONO # 0.5 K/uL (0.0-0.8); MONO % 11.1 % (0.0-10.0); NEUT # 2.4 K/uL (1.8-7.0); NEUT % 56.3 % (50.0-75.0); NRBC % 0.1 % (0.0-2.0); RBC 2.98 Mil/uL (4.40-5.90); WHITE BLOOD COUNT 4.3 K/uL (4.8-10.8)
[2018-02-18 06:08] LABS: ARTERIAL BLOOD GAS HCO3 30.2 mmol/L (21-28); ARTERIAL BLOOD GAS O2 SAT 99.3 % (95-98); ARTERIAL BLOOD GAS PCO2 44 mm/Hg (35-45); ARTERIAL BLOOD GAS PH 7.46 (7.35-7.45); ARTERIAL BLOOD GAS PO2 110 mm/Hg (80-100); ARTERIAL BLOOD GAS TCO2 32.7 mmol/L (22-28)
[2018-02-18] MEDS: Cefepime IV 2 gm in Dextrose 2 GM/100 ML BAG IVPB SCH ×2 (06:08→18:15)
[2018-02-18 06:23] LABS: ALBUMIN 2.7 g/dL (3.5-5.0); ALT/SGPT 18 U/L (21-72); AST/SGOT 17 U/L (17-59); BLOOD UREA NITROGEN 21 mg/dL (9-20); CALCIUM 8.2 mg/dl (8.6-10.4); GFR AFRICAN-AMERICAN > 60; GFR NON-AFRICAN AMERICAN > 60
[2018-02-18] MEDS: Acetylcysteine 20% Inhal Soln (4ml) INH SCH ×2 (07:23→19:33)
[2018-02-18] MEDS: ACYCLOVIR IV SCH (07:59)
[2018-02-18] MEDS: DEXTROSE 5% IV SCH (07:59)
[2018-02-18] MEDS: WATER IV SCH (07:59)
[2018-02-18] MEDS: (Lantus) Insulin Glargine, Recombinant SC SCH ×2 (08:12→20:13)
--- NOTE | 2018-02-18 08:46 | CP.PCM.PN ---
Subjective - Date & Time of Evaluation Date of Evaluation: 02/18/18 Time of Evaluation: 08:43 - Subjective Subjective: General surgery progress note for Dr. Cuca Rosraio, PGY-1 Pt S & E at bedside. Pt intubated, No acute events overnight per nursing. Withdraws to pain. Does not follow simple commands in [place]. PRVC 50%, PEEP 5, RR 15, TV 400. Objective - Vital Signs/Intake and Output Vital Signs (last 24 hours): Temp Pulse Resp BP Pulse Ox 99.2 F 88 18 173/84 H 100 02/18/18 04:00 02/18/18 06:52 02/18/18 06:52 02/18/18 06:52 02/18/18 06:52 Intake and Output: 02/18/18 02/18/18 06:59 18:59 Intake Total 1513.8 Output Total 795 Balance 718.8 - Medications Medications: Current Medications Acetaminophen (Tylenol 650mg/20.3ml Solution Ud) 650 mg NG Q6 PRN PRN Reason: GIVE FOR TEMP. 100*F OR ABOVE Last Admin: 02/05/18 20:48 Dose: 650 mg Acetylcysteine (Acetylcysteine 20%) 4 ml INH RQ12 [facility] Last Admin: 02/17/18 19:17 Dose: 4 ml Albuterol/Ipratropium (Duoneb 3 Mg/0.5 Mg (3 Ml) Ud) 3 ml INH RQ6 [facility] Last Admin: 02/18/18 07:24 Dose: 3 ml Aspirin (Aspirin Chewable) 81 mg PO DAILY [facility] Last Admin: 02/17/18 09:08 Dose: 81 mg Carvedilol (Coreg) 12.5 mg PO BID [facility] Last Admin: 02/17/18 17:17 Dose: 12.5 mg Docusate Sodium (Colace) 100 mg PO BID [facility] Last Admin: 02/17/18 17:09 Dose: Not Given Hydralazine HCl (Apresoline) 100 mg PO Q8 [facility] Last Admin: 02/18/18 06:07 Dose: 100 mg Levetiracetam 500 mg/ Dextrose 55 mls @ 420 mls/hr IVPB Q12H [facility] Last Admin: 02/17/18 21:36 Dose: 420 mls/hr Vancomycin HCl 1 gm/ Dextrose 250 mls @ 166.7 mls/hr IVPB Q48H [facility] PRN Reason: Protocol Last Admin: 02/16/18 18:35 Dose: 166.7 mls/hr Acyclovir 750 mg/ Dextrose 250 mls @ 100 mls/hr IV Q12H [facility] PRN Reason: Protocol Last Admin: 02/18/18 07:59 Dose: 100 mls/hr Cefepime HCl (Maxipime Iv 2 Gm Premix) 2 gm in 100 mls @ 200 mls/hr IVPB Q12H [facility] PRN Reason: Protocol Stop: 02/19/18 07:01 Last Admin: 02/18/18 06:08 Dose: 200 mls/hr Heparin Sodium/Sodium Chloride (Heparin 89050 Units/250ml 1/2 Normal Saline) 25 ,000 units in 250 mls @ 13.498 mls/hr IV .[id number] PRN; Protocol; 14 U/KG/HR PRN Reason: ADJUST RATE PER PROTOCOL Last Admin: 02/18/18 02:39 Dose: 13 u/kg/hr, 12.534 mls/hr Insulin Aspart (Novolog) 0 unit SC Q6 [facility] PRN Reason: Protocol Last Admin: 02/18/18 06:08 Dose: 4 unit Insulin Glargine (Lantus) 20 unit SC Q12H [facility] Last Admin: 02/18/18 08:12 Dose: 20 u Lorazepam (Ativan) 2 mg IVP Q3H PRN PRN Reason: Anxiety Last Admin: 02/18/18 00:52 Dose: 2 mg Pantoprazole Sodium (Protonix Inj) 40 mg IVP DAILY [facility] Last Admin: 02/17/18 09:09 Dose: 40 mg Tamsulosin HCl (Flomax) 0.4 mg PO DAILY [facility] Last Admin: 02/17/18 09:09 Dose: 0.4 mg - Labs Labs: 02/18/18 06:01 02/18/18 06:01 PT 12.6 SECONDS (9.7-12.2) H D 02/15/18 06:24 INR 1.1 D 02/15/18 06:24 APTT 67 SECONDS (21-34) H D 02/18/18 06:01 - Constitutional Appears: Non-toxic, No Acute Distress - Head Exam Head Exam: ATRAUMATIC, NORMAL INSPECTION, NORMOCEPHALIC - Eye Exam Eye Exam: EOMI, Normal appearance - ENT Exam ENT Exam: Mucous Membranes Dry. absent: Mucous Membranes Moist Additional comments: ET tube in place - Neck Exam Additional comments: Left IJ in place - Respiratory Exam Respiratory Exam: NORMAL BREATHING PATTERN (on mech vent) - Cardiovascular Exam Cardiovascular Exam: REGULAR RHYTHM, +S1, +S2 - GI/Abdominal Exam GI & Abdominal Exam: Soft. absent: Distended, Rigid, Tenderness Additional comments: PEG tube in place with abdominal binder - Neurological Exam Neurological Exam: absent: Alert, Oriented x3 Additional comments: opens eyes spontaneously, withdraws to pain, does not follow simple commands - Psychiatric Exam Additional comments: unable to assess- intubated - Skin Skin Exam: Dry, Intact, Normal Color, Warm Assessment and Plan - Assessment and Plan (Free Text) Assessment: 67M with respiratory failure s/p CVA: s/p peg, IVC filter; Plan: Plan for perc trach placement 4/2 Hold Heparin starting at 9am on 4/2 Hold Tube feeds at MN Will obtain consent Will MELVIN attending Marlene, PGY-1
[2018-02-18] MEDS: DEXTROSE 5% IVPB SCH ×2 (09:10→22:16)
[2018-02-18] MEDS: LEVETIRACETAM IVPB SCH ×2 (09:10→22:16)
[2018-02-18] MEDS: WATER IVPB SCH ×2 (09:10→22:16)
--- NOTE | 2018-02-18 09:10 | CP.PCM.PN ---
Subjective - Date & Time of Evaluation Date of Evaluation: 02/18/18 Time of Evaluation: 09:03 - Subjective Subjective: No events, stayed on vent tentative trache tomorrow. Objective - Vital Signs/Intake and Output Vital Signs (last 24 hours): Temp Pulse Resp BP Pulse Ox 99.2 F 88 19 144/82 100 02/18/18 04:00 02/18/18 07:52 02/18/18 07:52 02/18/18 07:52 02/18/18 07:52 Intake and Output: 02/18/18 02/18/18 06:59 18:59 Intake Total 1513.8 229.6 Output Total 795 65 Balance 718.8 164.6 - Medications Medications: Current Medications Acetaminophen (Tylenol 650mg/20.3ml Solution Ud) 650 mg NG Q6 PRN PRN Reason: GIVE FOR TEMP. 100*F OR ABOVE Last Admin: 02/05/18 20:48 Dose: 650 mg Acetylcysteine (Acetylcysteine 20%) 4 ml INH RQ12 [facility] Last Admin: 02/17/18 19:17 Dose: 4 ml Albuterol/Ipratropium (Duoneb 3 Mg/0.5 Mg (3 Ml) Ud) 3 ml INH RQ6 [facility] Last Admin: 02/18/18 07:24 Dose: 3 ml Aspirin (Aspirin Chewable) 81 mg PO DAILY [facility] Last Admin: 02/17/18 09:08 Dose: 81 mg Carvedilol (Coreg) 12.5 mg PO BID [facility] Last Admin: 02/17/18 17:17 Dose: 12.5 mg Docusate Sodium (Colace) 100 mg PO BID [facility] Last Admin: 02/17/18 17:09 Dose: Not Given Hydralazine HCl (Apresoline) 100 mg PO Q8 [facility] Last Admin: 02/18/18 06:07 Dose: 100 mg Levetiracetam 500 mg/ Dextrose 55 mls @ 420 mls/hr IVPB Q12H [facility] Last Admin: 02/17/18 21:36 Dose: 420 mls/hr Vancomycin HCl 1 gm/ Dextrose 250 mls @ 166.7 mls/hr IVPB Q48H [facility] PRN Reason: Protocol Last Admin: 02/16/18 18:35 Dose: 166.7 mls/hr Acyclovir 750 mg/ Dextrose 250 mls @ 100 mls/hr IV Q12H [facility] PRN Reason: Protocol Last Admin: 02/18/18 07:59 Dose: 100 mls/hr Cefepime HCl (Maxipime Iv 2 Gm Premix) 2 gm in 100 mls @ 200 mls/hr IVPB Q12H [facility] PRN Reason: Protocol Stop: 02/19/18 07:01 Last Admin: 02/18/18 06:08 Dose: 200 mls/hr Heparin Sodium/Sodium Chloride (Heparin 51399 Units/250ml 1/2 Normal Saline) 25 ,000 units in 250 mls @ 13.498 mls/hr IV .[id number] PRN; Protocol; 14 U/KG/HR PRN Reason: ADJUST RATE PER PROTOCOL Last Admin: 02/18/18 02:39 Dose: 13 u/kg/hr, 12.534 mls/hr Insulin Aspart (Novolog) 0 unit SC Q6 [facility] PRN Reason: Protocol Last Admin: 02/18/18 06:08 Dose: 4 unit Insulin Glargine (Lantus) 20 unit SC Q12H [facility] Last Admin: 02/18/18 08:12 Dose: 20 u Insulin Human Regular (Novolin R) 0 unit SC Q6 [facility] PRN Reason: Protocol Lorazepam (Ativan) 2 mg IVP Q3H PRN PRN Reason: Anxiety Last Admin: 02/18/18 00:52 Dose: 2 mg Pantoprazole Sodium (Protonix Inj) 40 mg IVP DAILY [facility] Last Admin: 02/17/18 09:09 Dose: 40 mg Tamsulosin HCl (Flomax) 0.4 mg PO DAILY [facility] Last Admin: 02/17/18 09:09 Dose: 0.4 mg - Labs Labs: 02/18/18 06:01 02/18/18 06:01 PT 12.6 SECONDS (9.7-12.2) H D 02/15/18 06:24 INR 1.1 D 02/15/18 06:24 APTT 67 SECONDS (21-34) H D 02/18/18 06:01 - Additional Findings Additional findings: * HEENT DOLORES * Neck supple, no rigidity * PA soft, nt peg in place * CVS Regular, no gallop or rub * Chest clear b/l reduced in basis, left subclavian line noticed, midline scar or cabg * Ext no edema, b/l scars in both arms * [employer] lethargic not following, moving all 4 ext * Skin normal turgor Assessment and Plan - Assessment and Plan (Free Text) Assessment: * AMS with kaden in hospital, h/o prior tia/stroke, on emperic abx vanco, cefepime and acyclovir, kepra * PE in hospital negative w/u HIT, on heparin drip * s/p PEG * S/p IVC filter on heparin drip * On vent from PE and mucous plugging, ams for tentative trache tomorrow * DM on insulin lantus, sliding scale added. Plan: * Supportive care * Continue vent * CPAP trial * Hold feeding for trache in am post midnight * Hold heparin about 3hr prior to trache * On empiric abx, id following * GI prophylaxis * DVT prophylaxis with heparin * See orders for detail.
--- NOTE | 2018-02-18 11:45 | RAD ---
HISTORY: Intubated COMPARISON: Comparison chest 02/17/2018 FINDINGS: In situ ETT, tip of which appears to lie approximately 2 cm above rianna. No change left-sided subclavian central line with tip within the brachiocephalic vein presumably at the junction of the SVC perpendicular to the long axis of the SVC unchanged. LUNGS: Low lung volumes with crowded bronchovascular markings and bibasilar atelectasis. Questionable small bilateral effusions left larger than right PLEURA: As above. No pneumothorax apparent. CARDIOVASCULAR: Sternotomy wires and CABG clips again noted. Heart remains enlarged OSSEOUS STRUCTURES: No significant abnormalities. VISUALIZED UPPER ABDOMEN: Normal. OTHER FINDINGS: None. IMPRESSION: Support lines and tubes as above. Low lung volumes with crowded bronchovascular markings and bibasilar atelectasis. Questionable small bilateral effusions left larger than right
[2018-02-18] MEDS: (Novolin R) Insulin Human Regular 100 units/ml vial SC SCH ×2 (11:46→18:15)
--- NOTE | 2018-02-18 13:13 | PN ---
DATE: LOCATION: ICU 7. SUBJECTIVE: This is a 67-year-old male, seen and examined early in rounds post PEG procedure recently, tolerating the PEG feeding well. The patient is still intubated to vent. He is scheduled for potential tracheostomy at a.m. The entire chart was reviewed, including but noted limited to the most recent lab and radiology study results, current and previous medication list, current and previous medical events. Case discussed with staff at length. Today's lab showed hemoglobin 9.7, hematocrit 28.2, thrombocytopenia 119, blood glucose level 225, and BUN 21. PHYSICAL EXAMINATION: GENERAL: A 67-year-old male, intubated to vent. VITAL SIGNS: Temperature of 99.2, pulse of 84, blood pressure is 100/62. HEENT: Showed pale, dry oral mucous membrane. Nonicteric sclera. LUNGS: A few crepitation. Decreased air entry at bases. HEART: Positive S1 and S2. ABDOMEN: Soft with mild generalized tenderness and slight distention. EXTREMITIES: Without significant clubbing, cyanosis, or edema. PEG tube is in place without residual bleeding or resistant. NEUROLOGIC: No reported new neurological deficit, sensory or motor. IMPRESSION: 1. Dysphagia, seizure disorder, malnutrition with hypoalbuminemia. 2. Status post PEG insertion. 3. Anemia most likely secondary to chronic disease. 4. Peptic ulcer disease. 5. Reported lower extremity deep venous thrombosis with status post inferior vena cava filter insertion. 6. Pneumonia, respiratory failure, intubated to vent, for potential tracheostomy as per . 7. Coagulopathy, drug induced. 8. Known history of coronary artery disease, hypertension, status post cardiac bypass surgery. 9. Known history of hyperlipidemia with diabetes mellitus. SUGGESTION: 1. Continue current management. 2. Subsequent increase of PEG feeding. Jaya Glass MD
[2018-02-18] MEDS ORDERED: Heparin25000 units/250ml 1/2NS 25,000 UNITS/250 ML BAG IV PRN (16:30)
[2018-02-18] MEDS: Vancomycin 1 GM in Dextrose 5% In Water 250 ML IVPB SCH (19:35)
--- NOTE | 2018-02-18 22:01 | CP.PCM.PN ---
Subjective - Date & Time of Evaluation Date of Evaluation: 02/18/18 Time of Evaluation: 14:15 - Subjective Subjective: Pt is seen and examined today Objective - Vital Signs/Intake and Output Vital Signs (last 24 hours): Temp Pulse Resp BP Pulse Ox 99.3 F 75 15 94/47 L 100 02/18/18 20:00 02/18/18 21:00 02/18/18 21:00 02/18/18 20:52 02/18/18 21:00 Intake and Output: 02/18/18 02/19/18 18:59 06:59 Intake Total 1038.6 437.8 Output Total 770 215 Balance 268.6 222.8 - Medications Medications: Current Medications Acetaminophen (Tylenol 650mg/20.3ml Solution Ud) 650 mg NG Q6 PRN PRN Reason: GIVE FOR TEMP. 100*F OR ABOVE Last Admin: 02/05/18 20:48 Dose: 650 mg Acetylcysteine (Acetylcysteine 20%) 4 ml INH RQ12 [facility] Last Admin: 02/18/18 19:33 Dose: Not Given Aspirin (Aspirin Chewable) 81 mg PO DAILY [facility] Last Admin: 02/18/18 09:06 Dose: 81 mg Carvedilol (Coreg) 12.5 mg PO BID [facility] Last Admin: 02/18/18 17:31 Dose: 12.5 mg Docusate Sodium (Colace) 100 mg PO BID [facility] Last Admin: 02/18/18 17:31 Dose: 100 mg Hydralazine HCl (Apresoline) 100 mg PO Q8 [facility] Last Admin: 02/18/18 14:17 Dose: 100 mg Levetiracetam 500 mg/ Dextrose 55 mls @ 420 mls/hr IVPB Q12H [facility] Last Admin: 02/18/18 09:10 Dose: 420 mls/hr Vancomycin HCl 1 gm/ Dextrose 250 mls @ 166.7 mls/hr IVPB Q48H [facility] PRN Reason: Protocol Last Admin: 02/18/18 19:35 Dose: 166.7 mls/hr Cefepime HCl (Maxipime Iv 2 Gm Premix) 2 gm in 100 mls @ 200 mls/hr IVPB Q12H [facility] PRN Reason: Protocol Stop: 02/19/18 07:01 Last Admin: 02/18/18 18:15 Dose: 200 mls/hr Heparin Sodium/Sodium Chloride (Heparin 34345 Units/250ml 1/2 Normal Saline) 25 ,000 units in 250 mls @ 12.451 mls/hr IV .Q20H5M PRN; Protocol; 12.534 UNITS/KG/ HR PRN Reason: PROTOCOL Last Admin: 02/18/18 16:45 Dose: 13 units/kg/hr, 12.914 mls/hr Insulin Glargine (Lantus) 20 unit SC Q12H [facility] Last Admin: 02/18/18 20:13 Dose: 20 u Insulin Human Regular (Novolin R) 0 unit SC Q6 [facility] PRN Reason: Protocol Last Admin: 02/18/18 18:15 Dose: 4 unit Lorazepam (Ativan) 2 mg IVP Q3H PRN PRN Reason: Anxiety Last Admin: 02/18/18 20:12 Dose: 2 mg Pantoprazole Sodium (Protonix Inj) 40 mg IVP DAILY [facility] Last Admin: 02/18/18 09:08 Dose: 40 mg Tamsulosin HCl (Flomax) 0.4 mg PO DAILY [facility] Last Admin: 02/18/18 09:20 Dose: 0.4 mg - Labs Labs: 02/18/18 06:01 02/18/18 06:01 PT 12.6 SECONDS (9.7-12.2) H D 02/15/18 06:24 INR 1.1 D 02/15/18 06:24 APTT 67 SECONDS (21-34) H D 02/18/18 06:01 Assessment and Plan (1) Status epilepticus Status: Acute (2) COPD (chronic obstructive pulmonary disease) Status: Acute (3) Congestive heart failure Status: Acute (4) Diabetes Status: Acute (5) Hypernatremia Status: Acute (6) Acute respiratory failure Status: Acute (7) Ischemic encephalopathy Status: Acute (8) Acute respiratory failure with hypoxia Status: Acute
[2018-02-19] MEDS: (Novolin R) Insulin Human Regular 100 units/ml vial SC SCH ×4 (00:09→18:18)
[2018-02-19 05:45] LABS: ARTERIAL BLOOD GAS HCO3 31.2 mmol/L (21-28); ARTERIAL BLOOD GAS HEMOGLOBIN 9.5 g/dL (11.7-17.4); ARTERIAL BLOOD GAS O2 SAT 98.9 % (95-98); ARTERIAL BLOOD GAS PCO2 46 mm/Hg (35-45); ARTERIAL BLOOD GAS PH 7.46 (7.35-7.45); ARTERIAL BLOOD GAS PO2 118 mm/Hg (80-100); ARTERIAL BLOOD GAS TCO2 34.1 mmol/L (22-28)
[2018-02-19] MEDS: Cefepime IV 2 gm in Dextrose 2 GM/100 ML BAG IVPB SCH (06:12)
[2018-02-19 06:40] LABS: BASO % 0.5 % (0.0-2.0); EOS # 0.3 K/uL (0.0-0.7); HEMOGLOBIN 9.3 g/dL (12.0-18.0); LYMPH # 1.5 K/uL (1.0-4.3); LYMPH % 36.2 % (20.0-40.0); MEAN CELL VOLUME 95.8 fL (80.0-94.0); MEAN CORPUSCULAR HEMOGLOBIN 32.6 pg (27.0-31.0); MEAN PLATELET VOLUME 11.9 fL (7.2-11.7); MONO # 0.4 K/uL (0.0-0.8); MONO % 9.6 % (0.0-10.0); NEUT # 1.9 K/uL (1.8-7.0); NEUT % 46.7 % (50.0-75.0); NRBC % 0.1 % (0.0-2.0); RBC 2.86 Mil/uL (4.40-5.90); RED CELL DISTRIBUTION WIDTH 16.2 % (11.5-14.5); WHITE BLOOD COUNT 4.1 K/uL (4.8-10.8)
[2018-02-19 06:51] LABS: INR 1.2; PROTHROMBIN TIME 13.7 SECONDS (9.7-12.2)
--- NOTE | 2018-02-19 07:02 | CP.PCM.PN ---
Subjective - Date & Time of Evaluation Date of Evaluation: 02/19/18 Time of Evaluation: 07:02 - Subjective Subjective: Mr. Latif was seen and examined at the bedside in ICU. He is n mechanical ventilator on PRVC mode. He response to pain stimuli with facial grimacing and moving his bilateral upper and lower extremities spontaneously with left lower extremity weaker than the rest of his extremities, GCS-4T.He is able to open his eyes spontaneously with both verbal and tactile stimuli. He was not able to follow commands this morning, however, per staff, he is able to follow simple commands from the family.He is able to move all extremities, but really stiffen his upper extremities as a response to any stimuli.. His eyes remain unequal left 3mm and right 2 mm brisk to react. He has a bilateral hand mittens for patient safety. He is schedule for trach today. Keppra level is 26.1. There was no untoward events overnight. Objective - Vital Signs/Intake and Output Vital Signs (last 24 hours): Temp Pulse Resp BP Pulse Ox 98.9 F 66 15 124/51 L 100 02/19/18 04:00 02/19/18 06:00 02/19/18 06:00 02/19/18 05:52 02/19/18 06:00 Intake and Output: 02/19/18 02/19/18 06:59 18:59 Intake Total 851.2 Output Total 765 Balance 86.2 - Medications Medications: Current Medications Acetaminophen (Tylenol 650mg/20.3ml Solution Ud) 650 mg NG Q6 PRN PRN Reason: GIVE FOR TEMP. 100*F OR ABOVE Last Admin: 02/05/18 20:48 Dose: 650 mg Acetylcysteine (Acetylcysteine 20%) 4 ml INH RQ12 [facility] Last Admin: 02/18/18 19:33 Dose: Not Given Aspirin (Aspirin Chewable) 81 mg PO DAILY [facility] Last Admin: 02/18/18 09:06 Dose: 81 mg Carvedilol (Coreg) 12.5 mg PO BID [facility] Last Admin: 02/18/18 17:31 Dose: 12.5 mg Docusate Sodium (Colace) 100 mg PO BID [facility] Last Admin: 02/18/18 17:31 Dose: 100 mg Hydralazine HCl (Apresoline) 100 mg PO Q8 [facility] Last Admin: 02/19/18 05:52 Dose: 100 mg Levetiracetam 500 mg/ Dextrose 55 mls @ 420 mls/hr IVPB Q12H [facility] Last Admin: 02/18/18 22:16 Dose: 420 mls/hr Vancomycin HCl 1 gm/ Dextrose 250 mls @ 166.7 mls/hr IVPB Q48H [facility] PRN Reason: Protocol Last Admin: 02/18/18 19:35 Dose: 166.7 mls/hr Heparin Sodium/Sodium Chloride (Heparin 85084 Units/250ml 1/2 Normal Saline) 25 ,000 units in 250 mls @ 12.451 mls/hr IV .Q20H5M PRN; Protocol; 12.534 UNITS/KG/ HR PRN Reason: PROTOCOL Last Admin: 02/18/18 16:45 Dose: 13 units/kg/hr, 12.914 mls/hr Insulin Glargine (Lantus) 20 unit SC Q12H [facility] Last Admin: 02/18/18 20:13 Dose: 20 u Insulin Human Regular (Novolin R) 0 unit SC Q6 [facility] PRN Reason: Protocol Last Admin: 02/19/18 00:09 Dose: Not Given Lorazepam (Ativan) 2 mg IVP Q3H PRN PRN Reason: Anxiety Last Admin: 02/18/18 20:12 Dose: 2 mg Pantoprazole Sodium (Protonix Inj) 40 mg IVP DAILY [facility] Last Admin: 02/18/18 09:08 Dose: 40 mg Tamsulosin HCl (Flomax) 0.4 mg PO DAILY [facility] Last Admin: 02/18/18 09:20 Dose: 0.4 mg - Labs Labs: 02/19/18 06:34 02/18/18 06:01 PT 13.7 SECONDS (9.7-12.2) H 02/19/18 06:34 INR 1.2 02/19/18 06:34 APTT 66 SECONDS (21-34) H 02/19/18 06:34 - Constitutional Appears: No Acute Distress - Head Exam Head Exam: NORMAL INSPECTION - Neurological Exam Neurological Exam: Awake Neuro motor strength exam: Left Upper Extremity: 4, Right Upper Extremity: 4, Left Lower Extremity: 4, Right Lower Extremity: 4 Additional comments: Neurological unchanged from previous examination. Assessment and Plan (1) Status epilepticus Assessment & Plan: Case discussed with Dr. Perez, continue all current medical regimen. Recommend PT eval and treat for prevention of deconditioning. Treat any underlying electrolyte abnormalities. Status: Acute
[2018-02-19] MEDS: (Lantus) Insulin Glargine, Recombinant SC SCH ×2 (07:43→21:13)
[2018-02-19 07:49] LABS: ALB/GLOB RATIO 0.9 (1.0-2.1); ALBUMIN 2.6 g/dL (3.5-5.0); ALT/SGPT 17 U/L (21-72); AST/SGOT 17 U/L (17-59); BLOOD UREA NITROGEN 21 mg/dL (9-20); CALCIUM 8.3 mg/dl (8.6-10.4); GFR AFRICAN-AMERICAN > 60; GFR NON-AFRICAN AMERICAN > 60
[2018-02-19] MEDS: LEVETIRACETAM IVPB SCH ×2 (09:32→21:07)
[2018-02-19] MEDS: DEXTROSE 5% IVPB SCH ×2 (09:32→21:07)
[2018-02-19] MEDS: WATER IVPB SCH ×2 (09:32→21:07)
--- NOTE | 2018-02-19 09:58 | CP.CCUPN ---
<Amaya Castañeda - Last Filed: 02/19/18 10:30> CCU Subjective - Physician Review Subjective (Free Text): 02/19/18 09:57 Patient seen and examined at bedside. Per nursing no acute events overnight. Patient remains intubated on PRVC. Tube feeds and heparin drip held for Trach later on today. CCU Objective - Vital Signs / Intake & Output Vital Signs (Last 4 hours): Vital Signs Temp Pulse Resp BP Pulse Ox 02/19/18 09:00 66 15 100 02/19/18 08:52 68 15 100/43 L 99 02/19/18 08:00 79 11 L 99 02/19/18 07:58 97.3 F L 78 19 99 02/19/18 07:52 79 13 136/58 L 97 02/19/18 07:00 74 15 100 02/19/18 06:53 69 15 141/55 L 100 02/19/18 06:00 66 15 100 Intake and Output (Last 8hrs): Intake & Output 02/18/18 02/19/18 02/19/18 22:59 06:59 14:59 Intake Total 800.8 300.8 225.2 Output Total 610 450 275 Balance 190.8 -149.2 -49.8 Weight 100.153 kg Intake: IV 200 Intake, IV Amount 400.8 100.8 25.2 Left Distal Port Internal 300 Jugular Left Medial Port Internal 100.8 100.8 25.2 Jugular Tube Feeding 400 100 0 Other 100 Output: Urine 610 450 275 2-way Urethral 610 450 275 Other: # Bowel Movements 0 0 - Physical Exam Head: Positive for: Atraumatic, Normocephalic Pupils: Positive for: PERRL Conjunctiva: Positive for: Normal Mouth: Positive for: Moist Mucous Membranes, Other (ETT) Neck: Positive for: Normal Range of Motion Respiratory/Chest: Positive for: Clear to Auscultation, Good Air Exchange. Negative for: Respiratory Distress Cardiovascular: Positive for: Regular Rate and Rhythm, Normal S1, S2. Negative for: Tachycardic Abdomen: Positive for: Normal Bowel Sounds, Feeding Tubes (+peg tube), Other ( Obese). Negative for: Tenderness, Distention, Peritoneal Signs Upper Extremity: Positive for: Normal Inspection Lower Extremity: Positive for: Normal Inspection Neurological: Positive for: Other (Moves all extremities) Skin: Positive for: Warm, Dry Psychiatric: Positive for: Alert - Medications Active Medications: Active Medications Generic Name Dose Route Start Last Admin Trade Name Freq PRN Reason Stop Dose Admin Aspirin 81 mg 01/17/18 10:00 02/19/18 09:29 Aspirin Chewable PO Not Given DAILY [facility] Carvedilol 6.25 mg 02/19/18 10:00 02/19/18 09:30 Coreg PO Not Given BID [facility] Docusate Sodium 100 mg 02/15/18 18:00 02/19/18 09:30 Colace PO Not Given BID [facility] Levetiracetam 500 mg/ Dextrose 55 mls @ 420 mls/hr 02/08/18 22:00 02/19/18 09 :32 IVPB 420 mls/hr Q12H [facility] Administration Heparin Sodium/Sodium Chloride 25,000 units in 250 mls @ 12.451 mls/hr 16:30 02/19/18 09:07 Heparin 83335 Units/250ml 1/2 Normal Saline IV 0 units/kg/hr .Q20H5M PRN 0 mls/hr PROTOCOL Titration Protocol 12.534 UNITS/KG/HR Insulin Glargine 20 unit 02/09/18 08:00 02/19/18 07:43 Lantus SC Not Given Q12H [facility] Insulin Human Regular 0 unit 02/18/18 12:00 02/19/18 06:00 Novolin R SC Not Given Q6 [facility] Protocol Lorazepam 2 mg 02/14/18 14:07 02/19/18 07:42 Ativan IVP 2 mg Q3H PRN Administration Anxiety Losartan Potassium 50 mg 02/19/18 10:00 02/19/18 09:29 Cozaar PO Not Given DAILY [facility] Pantoprazole Sodium 40 mg 02/13/18 11:30 02/19/18 09:33 Protonix Inj IVP 40 mg DAILY [facility] Administration Tamsulosin HCl 0.4 mg 01/30/18 20:00 02/19/18 09:30 Flomax PO Not Given DAILY [facility] - Patient Studies Lab Studies: Lab Studies 02/19/18 02/19/18 02/19/18 Range/Units 06:34 06:34 06:34 WBC 4.1 L (4.8-10.8) K/uL RBC 2.86 L (4.40-5.90) Mil/uL Hgb 9.3 L (12.0-18.0) g/dL Hct 27.4 L (35.0-51.0) % MCV 95.8 H (80.0-94.0) fL MCH 32.6 H (27.0-31.0) pg MCHC 34.0 (33.0-37.0) g/dL RDW 16.2 H (11.5-14.5) % Plt Count 118 L (130-400) K/uL MPV 11.9 H (7.2-11.7) fL Neut % (Auto) 46.7 L (50.0-75.0) % Lymph % (Auto) 36.2 (20.0-40.0) % Gulf % (Auto) 9.6 (0.0-10.0) % Eos % (Auto) 7.0 H (0.0-4.0) % Baso % (Auto) 0.5 (0.0-2.0) % Neut # (Auto) 1.9 (1.8-7.0) K/uL Lymph # (Auto) 1.5 (1.0-4.3) K/uL Gulf # (Auto) 0.4 (0.0-0.8) K/uL Eos # (Auto) 0.3 (0.0-0.7) K/uL Baso # (Auto) 0.0 (0.0-0.2) K/uL PT 13.7 H (9.7-12.2) SECONDS INR 1.2 APTT 66 H (21-34) SECONDS Puncture Site pCO2 (35-45) mm/Hg pO2 (80-100) mm/Hg HCO3 (21-28) mmol/L ABG pH (7.35-7.45) ABG Total CO2 (22-28) mmol/L ABG O2 Saturation (95-98) % ABG Base Excess (-2.0-3.0) mmol/L ABG Hemoglobin (11.7-17.4) g/dL ABG Carboxyhemoglobin (0.5-1.5) % POC ABG HHb (Measured) (0.0-5.0) % ABG Methemoglobin (0.0-3.0) % Jamey Test A-a O2 Difference mm/Hg Respiratory Index Hgb O2 Saturation (95.0-98.0) % Vent Mode Mechanical Rate FiO2 % Tidal Volume PEEP Sodium 136 (132-148) mmol/L Potassium 3.9 (3.6-5.2) mmol/L Chloride 98 (98-107) mmol/L Carbon Dioxide 31 H (22-30) mmol/L Anion Gap 11 (10-20) BUN 21 H (9-20) mg/dL Creatinine 0.9 (0.8-1.5) mg/dL Est GFR ( Amer) > 60 Est GFR (Non-Af Amer) > 60 POC Glucose (mg/dL) (65-110) mg/dL Random Glucose 250 H (75-110) mg/dL Calcium 8.3 L (8.6-10.4) mg/dl Phosphorus 3.3 (2.5-4.5) mg/dL Magnesium 2.2 (1.6-2.3) mg/dL Total Bilirubin 0.7 (0.2-1.3) mg/dL AST 17 (17-59) U/L ALT 17 L (21-72) U/L Alkaline Phosphatase 80 (38-126) U/L Total Protein 5.4 L (6.3-8.3) g/dL Albumin 2.6 L (3.5-5.0) g/dL Globulin 2.8 (2.2-3.9) gm/dL Albumin/Globulin Ratio 0.9 L (1.0-2.1) 02/19/18 02/19/18 02/18/18 Range/Units 05:33 05:13 23:46 WBC (4.8-10.8) K/uL RBC (4.40-5.90) Mil/uL Hgb (12.0-18.0) g/dL Hct (35.0-51.0) % MCV (80.0-94.0) fL MCH (27.0-31.0) pg MCHC (33.0-37.0) g/dL RDW (11.5-14.5) % Plt Count (130-400) K/uL MPV (7.2-11.7) fL Neut % (Auto) (50.0-75.0) % Lymph % (Auto) (20.0-40.0) % Gulf % (Auto) (0.0-10.0) % Eos % (Auto) (0.0-4.0) % Baso % (Auto) (0.0-2.0) % Neut # (Auto) (1.8-7.0) K/uL Lymph # (Auto) (1.0-4.3) K/uL Gulf # (Auto) (0.0-0.8) K/uL Eos # (Auto) (0.0-0.7) K/uL Baso # (Auto) (0.0-0.2) K/uL PT (9.7-12.2) SECONDS INR APTT (21-34) SECONDS Puncture Site R brach pCO2 46 H (35-45) mm/Hg pO2 118 H (80-100) mm/Hg HCO3 31.2 H (21-28) mmol/L ABG pH 7.46 H (7.35-7.45) ABG Total CO2 34.1 H (22-28) mmol/L ABG O2 Saturation 98.9 H (95-98) % ABG Base Excess 8.0 H (-2.0-3.0) mmol/L ABG Hemoglobin 9.5 L (11.7-17.4) g/dL ABG Carboxyhemoglobin 1.8 H (0.5-1.5) % POC ABG HHb (Measured) 1.1 (0.0-5.0) % ABG Methemoglobin 1.0 (0.0-3.0) % Jamey Test Na A-a O2 Difference 181.0 mm/Hg Respiratory Index 1.5 Hgb O2 Saturation 96.1 (95.0-98.0) % Vent Mode Prvc Mechanical Rate 15 FiO2 50.0 % Tidal Volume 400 PEEP 5 Sodium (132-148) mmol/L Potassium (3.6-5.2) mmol/L Chloride (98-107) mmol/L Carbon Dioxide (22-30) mmol/L Anion Gap (10-20) BUN (9-20) mg/dL Creatinine (0.8-1.5) mg/dL Est GFR ( Amer) Est GFR (Non-Af Amer) POC Glucose (mg/dL) 272 H 251 H (65-110) mg/dL Random Glucose (75-110) mg/dL Calcium (8.6-10.4) mg/dl Phosphorus (2.5-4.5) mg/dL Magnesium (1.6-2.3) mg/dL Total Bilirubin (0.2-1.3) mg/dL AST (17-59) U/L ALT (21-72) U/L Alkaline Phosphatase (38-126) U/L Total Protein (6.3-8.3) g/dL Albumin (3.5-5.0) g/dL Globulin (2.2-3.9) gm/dL Albumin/Globulin Ratio (1.0-2.1) 02/18/18 02/18/18 Range/Units 17:54 11:23 WBC (4.8-10.8) K/uL RBC (4.40-5.90) Mil/uL Hgb (12.0-18.0) g/dL Hct (35.0-51.0) % MCV (80.0-94.0) fL MCH (27.0-31.0) pg MCHC (33.0-37.0) g/dL RDW (11.5-14.5) % Plt Count (130-400) K/uL MPV (7.2-11.7) fL Neut % (Auto) (50.0-75.0) % Lymph % (Auto) (20.0-40.0) % Gulf % (Auto) (0.0-10.0) % Eos % (Auto) (0.0-4.0) % Baso % (Auto) (0.0-2.0) % Neut # (Auto) (1.8-7.0) K/uL Lymph # (Auto) (1.0-4.3) K/uL Gulf # (Auto) (0.0-0.8) K/uL Eos # (Auto) (0.0-0.7) K/uL Baso # (Auto) (0.0-0.2) K/uL PT (9.7-12.2) SECONDS INR APTT (21-34) SECONDS Puncture Site pCO2 (35-45) mm/Hg pO2 (80-100) mm/Hg HCO3 (21-28) mmol/L ABG pH (7.35-7.45) ABG Total CO2 (22-28) mmol/L ABG O2 Saturation (95-98) % ABG Base Excess (-2.0-3.0) mmol/L ABG Hemoglobin (11.7-17.4) g/dL ABG Carboxyhemoglobin (0.5-1.5) % POC ABG HHb (Measured) (0.0-5.0) % ABG Methemoglobin (0.0-3.0) % Jamey Test A-a O2 Difference mm/Hg Respiratory Index Hgb O2 Saturation (95.0-98.0) % Vent Mode Mechanical Rate FiO2 % Tidal Volume PEEP Sodium (132-148) mmol/L Potassium (3.6-5.2) mmol/L Chloride (98-107) mmol/L Carbon Dioxide (22-30) mmol/L Anion Gap (10-20) BUN (9-20) mg/dL Creatinine (0.8-1.5) mg/dL Est GFR ( Amer) Est GFR (Non-Af Amer) POC Glucose (mg/dL) 269 H 261 H (65-110) mg/dL Random Glucose (75-110) mg/dL Calcium (8.6-10.4) mg/dl Phosphorus (2.5-4.5) mg/dL Magnesium (1.6-2.3) mg/dL Total Bilirubin (0.2-1.3) mg/dL AST (17-59) U/L ALT (21-72) U/L Alkaline Phosphatase (38-126) U/L Total Protein (6.3-8.3) g/dL Albumin (3.5-5.0) g/dL Globulin (2.2-3.9) gm/dL Albumin/Globulin Ratio (1.0-2.1) Laboratory Results - last 24 hr 02/18/18 02/18/18 02/18/18 11:23 17:54 23:46 WBC RBC Hgb Hct MCV MCH MCHC RDW Plt Count MPV Neut % (Auto) Lymph % (Auto) Gulf % (Auto) Eos % (Auto) Baso % (Auto) Neut # (Auto) Lymph # (Auto) Gulf # (Auto) Eos # (Auto) Baso # (Auto) PT INR APTT Puncture Site pCO2 pO2 HCO3 ABG pH ABG Total CO2 ABG O2 Saturation ABG Base Excess ABG Hemoglobin ABG Carboxyhemoglobin POC ABG HHb (Measured) ABG Methemoglobin Jamey Test A-a O2 Difference Respiratory Index Hgb O2 Saturation Vent Mode Mechanical Rate FiO2 Tidal Volume PEEP Sodium Potassium Chloride Carbon Dioxide Anion Gap BUN Creatinine Est GFR ( Amer) Est GFR (Non-Af Amer) POC Glucose (mg/dL) 261 H 269 H 251 H Random Glucose Calcium Phosphorus Magnesium Total Bilirubin AST ALT Alkaline Phosphatase Total Protein Albumin Globulin Albumin/Globulin Ratio 02/19/18 02/19/18 02/19/18 05:13 05:33 06:34 WBC 4.1 L RBC 2.86 L Hgb 9.3 L Hct 27.4 L MCV 95.8 H MCH 32.6 H MCHC 34.0 RDW 16.2 H Plt Count 118 L MPV 11.9 H Neut % (Auto) 46.7 L Lymph % (Auto) 36.2 Gulf % (Auto) 9.6 Eos % (Auto) 7.0 H Baso % (Auto) 0.5 Neut # (Auto) 1.9 Lymph # (Auto) 1.5 Gulf # (Auto) 0.4 Eos # (Auto) 0.3 Baso # (Auto) 0.0 PT INR APTT Puncture Site R brach pCO2 46 H pO2 118 H HCO3 31.2 H ABG pH 7.46 H ABG Total CO2 34.1 H ABG O2 Saturation 98.9 H ABG Base Excess 8.0 H ABG Hemoglobin 9.5 L ABG Carboxyhemoglobin 1.8 H POC ABG HHb (Measured) 1.1 ABG Methemoglobin 1.0 Jamey Test Na A-a O2 Difference 181.0 Respiratory Index 1.5 Hgb O2 Saturation 96.1 Vent Mode Prvc Mechanical Rate 15 FiO2 50.0 Tidal Volume 400 PEEP 5 Sodium Potassium Chloride Carbon Dioxide Anion Gap BUN Creatinine Est GFR ( Amer) Est GFR (Non-Af Amer) POC Glucose (mg/dL) 272 H Random Glucose Calcium Phosphorus Magnesium Total Bilirubin AST ALT Alkaline Phosphatase Total Protein Albumin Globulin Albumin/Globulin Ratio 02/19/18 02/19/18 06:34 06:34 WBC RBC Hgb Hct MCV MCH MCHC RDW Plt Count MPV Neut % (Auto) Lymph % (Auto) Gulf % (Auto) Eos % (Auto) Baso % (Auto) Neut # (Auto) Lymph # (Auto) Gulf # (Auto) Eos # (Auto) Baso # (Auto) PT 13.7 H INR 1.2 APTT 66 H Puncture Site pCO2 pO2 HCO3 ABG pH ABG Total CO2 ABG O2 Saturation ABG Base Excess ABG Hemoglobin ABG Carboxyhemoglobin POC ABG HHb (Measured) ABG Methemoglobin Jamey Test A-a O2 Difference Respiratory Index Hgb O2 Saturation Vent Mode Mechanical Rate FiO2 Tidal Volume PEEP Sodium 136 Potassium 3.9 Chloride 98 Carbon Dioxide 31 H Anion Gap 11 BUN 21 H Creatinine 0.9 Est GFR ( Amer) > 60 Est GFR (Non-Af Amer) > 60 POC Glucose (mg/dL) Random Glucose 250 H Calcium 8.3 L Phosphorus 3.3 Magnesium 2.2 Total Bilirubin 0.7 AST 17 ALT 17 L Alkaline Phosphatase 80 Total Protein 5.4 L Albumin 2.6 L Globulin 2.8 Albumin/Globulin Ratio 0.9 L Fingerstick Blood Sugar Results: 250 Assessment/Plan - Assessment and Plan (Free Text) Assessment: 67 year old male with a past medical history of type 2 dm, hypertension, cva, s/ p cabg (8yrs ago), hyperlipidemia who was admitted to the ICU after being found unresponsive by daughter. Patient subsequently had a witnessed seizure while in the hospital and was transferred to the ICU for further monitoring. While in the ICU patient was extubated and downgraded to the floors. While on the floors , patient desat low 80s, reintubated for acute respiratory failure. Brought back to the ICU. -Intubated, not on sedation -Patient with Saddle PE, right subclavian DVT -Thrombocytopenia improving -HIT workup negative -Heparin drip and tube feeds held for trach today -Venous doppler 02/13 showed Right peroneal DVT, s/p IVC filter placement -Will need to transition to PO anticoagulation at some point -Morning CXR and ABG reviewed -CXR 02/18: Low lung volumes with crowded bronchovascular markings and bibasilar atelectasis -Continue Keppra 500mg IV Q12H, Keppra level 26.1 -Ativan 2mg Q3H prn agitation -Continue Protonix 40mg IVP daily -Continue PT/OT -Continue to monitor in the ICU -Plan discussed with Dr Ulloa <Bill Ulloa - Last Filed: 02/19/18 18:45> CCU Objective - Vital Signs / Intake & Output Vital Signs (Last 4 hours): Vital Signs Temp Pulse Resp BP Pulse Ox 02/19/18 18:00 62 100 02/19/18 17:40 59 L 112/45 L 100 02/19/18 17:08 65 95/49 L 100 02/19/18 17:00 58 L 100 02/19/18 16:53 58 L 87/37 L 97 02/19/18 16:38 67 118/54 L 97 02/19/18 16:23 73 87/47 L 99 02/19/18 16:21 74 02/19/18 16:00 98.3 F 59 L 18 96 02/19/18 15:00 81 12 Intake and Output (Last 8hrs): Intake & Output 02/19/18 02/19/18 02/19/18 06:59 14:59 22:59 Intake Total 300.8 280.2 500 Output Total 436 833 1931 Balance -149.2 -429.8 -600 Weight 220 lb 12.8 oz Intake: IV 200 500 Intake, IV Amount 100.8 80.2 Left Medial Port Internal 100.8 80.2 Jugular Tube Feeding 100 0 0 Other 100 Output: Urine 628 900 6378 2-way Urethral 450 710 300 Other: # Bowel Movements 0 - Medications Active Medications: Active Medications Generic Name Dose Route Start Last Admin Trade Name Freq PRN Reason Stop Dose Admin Aspirin 81 mg 01/17/18 10:00 02/19/18 09:29 Aspirin Chewable PO Not Given DAILY [facility] Carvedilol 6.25 mg 02/19/18 10:00 02/19/18 17:51 Coreg PO Not Given BID [facility] Docusate Sodium 100 mg 02/15/18 18:00 02/19/18 17:51 Colace PO Not Given BID [facility] Levetiracetam 500 mg/ Dextrose 55 mls @ 420 mls/hr 02/08/18 22:00 02/19/18 09 :32 IVPB 420 mls/hr Q12H [facility] Administration Heparin Sodium/Sodium Chloride 25,000 units in 250 mls @ 12.451 mls/hr 16:30 02/19/18 09:07 Heparin 08304 Units/250ml 1/2 Normal Saline IV 0 units/kg/hr .Q20H5M PRN 0 mls/hr PROTOCOL Titration Protocol 12.534 UNITS/KG/HR Insulin Glargine 20 unit 02/09/18 08:00 02/19/18 07:43 Lantus SC Not Given Q12H [facility] Insulin Human Regular 0 unit 02/18/18 12:00 02/19/18 18:18 Novolin R SC Not Given Q6 [facility] Protocol Lorazepam 2 mg 02/14/18 14:07 02/19/18 07:42 Ativan IVP 2 mg Q3H PRN Administration Anxiety Losartan Potassium 50 mg 02/19/18 10:00 02/19/18 09:29 Cozaar PO Not Given DAILY [facility] Pantoprazole Sodium 40 mg 02/13/18 11:30 02/19/18 09:33 Protonix Inj IVP 40 mg DAILY [facility] Administration Tamsulosin HCl 0.4 mg 01/30/18 20:00 02/19/18 09:30 Flomax PO Not Given DAILY [facility] - Patient Studies Lab Studies: Lab Studies 02/19/18 02/19/18 02/19/18 Range/Units 18:16 11:28 06:34 WBC (4.8-10.8) K/uL RBC (4.40-5.90) Mil/uL Hgb (12.0-18.0) g/dL Hct (35.0-51.0) % MCV (80.0-94.0) fL MCH (27.0-31.0) pg MCHC (33.0-37.0) g/dL RDW (11.5-14.5) % Plt Count (130-400) K/uL MPV (7.2-11.7) fL Neut % (Auto) (50.0-75.0) % Lymph % (Auto) (20.0-40.0) % Gulf % (Auto) (0.0-10.0) % Eos % (Auto) (0.0-4.0) % Baso % (Auto) (0.0-2.0) % Neut # (Auto) (1.8-7.0) K/uL Lymph # (Auto) (1.0-4.3) K/uL Gulf # (Auto) (0.0-0.8) K/uL Eos # (Auto) (0.0-0.7) K/uL Baso # (Auto) (0.0-0.2) K/uL PT 13.7 H (9.7-12.2) SECONDS INR 1.2 APTT 66 H (21-34) SECONDS Puncture Site pCO2 (35-45) mm/Hg pO2 (80-100) mm/Hg HCO3 (21-28) mmol/L ABG pH (7.35-7.45) ABG Total CO2 (22-28) mmol/L ABG O2 Saturation (95-98) % ABG Base Excess (-2.0-3.0) mmol/L ABG Hemoglobin (11.7-17.4) g/dL ABG Carboxyhemoglobin (0.5-1.5) % POC ABG HHb (Measured) (0.0-5.0) % ABG Methemoglobin (0.0-3.0) % Jamey Test A-a O2 Difference mm/Hg Respiratory Index Hgb O2 Saturation (95.0-98.0) % Vent Mode Mechanical Rate FiO2 % Tidal Volume PEEP Sodium (132-148) mmol/L Potassium (3.6-5.2) mmol/L Chloride (98-107) mmol/L Carbon Dioxide (22-30) mmol/L Anion Gap (10-20) BUN (9-20) mg/dL Creatinine (0.8-1.5) mg/dL Est GFR ( Amer) Est GFR (Non-Af Amer) POC Glucose (mg/dL) 187 H 217 H (65-110) mg/dL Random Glucose (75-110) mg/dL Calcium (8.6-10.4) mg/dl Phosphorus (2.5-4.5) mg/dL Magnesium (1.6-2.3) mg/dL Total Bilirubin (0.2-1.3) mg/dL AST (17-59) U/L ALT (21-72) U/L Alkaline Phosphatase (38-126) U/L Total Protein (6.3-8.3) g/dL Albumin (3.5-5.0) g/dL Globulin (2.2-3.9) gm/dL Albumin/Globulin Ratio (1.0-2.1) Levetiracetam mcg/mL 02/19/18 02/19/18 02/19/18 Range/Units 06:34 06:34 05:33 WBC 4.1 L (4.8-10.8) K/uL RBC 2.86 L (4.40-5.90) Mil/uL Hgb 9.3 L (12.0-18.0) g/dL Hct 27.4 L (35.0-51.0) % MCV 95.8 H (80.0-94.0) fL MCH 32.6 H (27.0-31.0) pg MCHC 34.0 (33.0-37.0) g/dL RDW 16.2 H (11.5-14.5) % Plt Count 118 L (130-400) K/uL MPV 11.9 H (7.2-11.7) fL Neut % (Auto) 46.7 L (50.0-75.0) % Lymph % (Auto) 36.2 (20.0-40.0) % Gulf % (Auto) 9.6 (0.0-10.0) % Eos % (Auto) 7.0 H (0.0-4.0) % Baso % (Auto) 0.5 (0.0-2.0) % Neut # (Auto) 1.9 (1.8-7.0) K/uL Lymph # (Auto) 1.5 (1.0-4.3) K/uL Gulf # (Auto) 0.4 (0.0-0.8) K/uL Eos # (Auto) 0.3 (0.0-0.7) K/uL Baso # (Auto) 0.0 (0.0-0.2) K/uL PT (9.7-12.2) SECONDS INR APTT (21-34) SECONDS Puncture Site pCO2 (35-45) mm/Hg pO2 (80-100) mm/Hg HCO3 (21-28) mmol/L ABG pH (7.35-7.45) ABG Total CO2 (22-28) mmol/L ABG O2 Saturation (95-98) % ABG Base Excess (-2.0-3.0) mmol/L ABG Hemoglobin (11.7-17.4) g/dL ABG Carboxyhemoglobin (0.5-1.5) % POC ABG HHb (Measured) (0.0-5.0) % ABG Methemoglobin (0.0-3.0) % Jamey Test A-a O2 Difference mm/Hg Respiratory Index Hgb O2 Saturation (95.0-98.0) % Vent Mode Mechanical Rate FiO2 % Tidal Volume PEEP Sodium 136 (132-148) mmol/L Potassium 3.9 (3.6-5.2) mmol/L Chloride 98 (98-107) mmol/L Carbon Dioxide 31 H (22-30) mmol/L Anion Gap 11 (10-20) BUN 21 H (9-20) mg/dL Creatinine 0.9 (0.8-1.5) mg/dL Est GFR ( Amer) > 60 Est GFR (Non-Af Amer) > 60 POC Glucose (mg/dL) 272 H (65-110) mg/dL Random Glucose 250 H (75-110) mg/dL Calcium 8.3 L (8.6-10.4) mg/dl Phosphorus 3.3 (2.5-4.5) mg/dL Magnesium 2.2 (1.6-2.3) mg/dL Total Bilirubin 0.7 (0.2-1.3) mg/dL AST 17 (17-59) U/L ALT 17 L (21-72) U/L Alkaline Phosphatase 80 (38-126) U/L Total Protein 5.4 L (6.3-8.3) g/dL Albumin 2.6 L (3.5-5.0) g/dL Globulin 2.8 (2.2-3.9) gm/dL Albumin/Globulin Ratio 0.9 L (1.0-2.1) Levetiracetam mcg/mL 02/19/18 02/18/18 02/16/18 Range/Units 05:13 23:46 06:34 WBC (4.8-10.8) K/uL RBC (4.40-5.90) Mil/uL Hgb (12.0-18.0) g/dL Hct (35.0-51.0) % MCV (80.0-94.0) fL MCH (27.0-31.0) pg MCHC (33.0-37.0) g/dL RDW (11.5-14.5) % Plt Count (130-400) K/uL MPV (7.2-11.7) fL Neut % (Auto) (50.0-75.0) % Lymph % (Auto) (20.0-40.0) % Gulf % (Auto) (0.0-10.0) % Eos % (Auto) (0.0-4.0) % Baso % (Auto) (0.0-2.0) % Neut # (Auto) (1.8-7.0) K/uL Lymph # (Auto) (1.0-4.3) K/uL [place] # (Auto) (0.0-0.8) K/uL Eos # (Auto) (0.0-0.7) K/uL Baso # (Auto) (0.0-0.2) K/uL PT (9.7-12.2) SECONDS INR APTT (21-34) SECONDS Puncture Site R brach pCO2 46 H (35-45) mm/Hg pO2 118 H (80-100) mm/Hg HCO3 31.2 H (21-28) mmol/L ABG pH 7.46 H (7.35-7.45) ABG Total CO2 34.1 H (22-28) mmol/L ABG O2 Saturation 98.9 H (95-98) % ABG Base Excess 8.0 H (-2.0-3.0) mmol/L ABG Hemoglobin 9.5 L (11.7-17.4) g/dL ABG Carboxyhemoglobin 1.8 H (0.5-1.5) % POC ABG HHb (Measured) 1.1 (0.0-5.0) % ABG Methemoglobin 1.0 (0.0-3.0) % Jamey Test Na A-a O2 Difference 181.0 mm/Hg Respiratory Index 1.5 Hgb O2 Saturation 96.1 (95.0-98.0) % Vent Mode Prvc Mechanical Rate 15 FiO2 50.0 % Tidal Volume 400 PEEP 5 Sodium (132-148) mmol/L Potassium (3.6-5.2) mmol/L Chloride (98-107) mmol/L Carbon Dioxide (22-30) mmol/L Anion Gap (10-20) BUN (9-20) mg/dL Creatinine (0.8-1.5) mg/dL Est GFR ( Amer) Est GFR (Non-Af Amer) POC Glucose (mg/dL) 251 H (65-110) mg/dL Random Glucose (75-110) mg/dL Calcium (8.6-10.4) mg/dl Phosphorus (2.5-4.5) mg/dL Magnesium (1.6-2.3) mg/dL Total Bilirubin (0.2-1.3) mg/dL AST (17-59) U/L ALT (21-72) U/L Alkaline Phosphatase (38-126) U/L Total Protein (6.3-8.3) g/dL Albumin (3.5-5.0) g/dL Globulin (2.2-3.9) gm/dL Albumin/Globulin Ratio (1.0-2.1) Levetiracetam 15.6 mcg/mL Laboratory Results - last 24 hr 02/16/18 02/18/18 02/19/18 06:34 23:46 05:13 WBC RBC Hgb Hct MCV MCH MCHC RDW Plt Count MPV Neut % (Auto) Lymph % (Auto) Gulf % (Auto) Eos % (Auto) Baso % (Auto) Neut # (Auto) Lymph # (Auto) Gulf # (Auto) Eos # (Auto) Baso # (Auto) PT INR APTT Puncture Site R brach pCO2 46 H pO2 118 H HCO3 31.2 H ABG pH 7.46 H ABG Total CO2 34.1 H ABG O2 Saturation 98.9 H ABG Base Excess 8.0 H ABG Hemoglobin 9.5 L ABG Carboxyhemoglobin 1.8 H POC ABG HHb (Measured) 1.1 ABG Methemoglobin 1.0 Jamey Test Na A-a O2 Difference 181.0 Respiratory Index 1.5 Hgb O2 Saturation 96.1 Vent Mode Prvc Mechanical Rate 15 FiO2 50.0 Tidal Volume 400 PEEP 5 Sodium Potassium Chloride Carbon Dioxide Anion Gap BUN Creatinine Est GFR ( Amer) Est GFR (Non-Af Amer) POC Glucose (mg/dL) 251 H Random Glucose Calcium Phosphorus Magnesium Total Bilirubin AST ALT Alkaline Phosphatase Total Protein Albumin Globulin Albumin/Globulin Ratio Levetiracetam 15.6 02/19/18 02/19/18 02/19/18 05:33 06:34 06:34 WBC 4.1 L RBC 2.86 L Hgb 9.3 L Hct 27.4 L MCV 95.8 H MCH 32.6 H MCHC 34.0 RDW 16.2 H Plt Count 118 L MPV 11.9 H Neut % (Auto) 46.7 L Lymph % (Auto) 36.2 Gulf % (Auto) 9.6 Eos % (Auto) 7.0 H Baso % (Auto) 0.5 Neut # (Auto) 1.9 Lymph # (Auto) 1.5 Gulf # (Auto) 0.4 Eos # (Auto) 0.3 Baso # (Auto) 0.0 PT INR APTT Puncture Site pCO2 pO2 HCO3 ABG pH ABG Total CO2 ABG O2 Saturation ABG Base Excess ABG Hemoglobin ABG Carboxyhemoglobin POC ABG HHb (Measured) ABG Methemoglobin Jamey Test A-a O2 Difference Respiratory Index Hgb O2 Saturation Vent Mode Mechanical Rate FiO2 Tidal Volume PEEP Sodium 136 Potassium 3.9 Chloride 98 Carbon Dioxide 31 H Anion Gap 11 BUN 21 H Creatinine 0.9 Est GFR ( Amer) > 60 Est GFR (Non-Af Amer) > 60 POC Glucose (mg/dL) 272 H Random Glucose 250 H Calcium 8.3 L Phosphorus 3.3 Magnesium 2.2 Total Bilirubin 0.7 AST 17 ALT 17 L Alkaline Phosphatase 80 Total Protein 5.4 L Albumin 2.6 L Globulin 2.8 Albumin/Globulin Ratio 0.9 L Levetiracetam 02/19/18 02/19/18 02/19/18 06:34 11:28 18:16 WBC RBC Hgb Hct MCV MCH MCHC RDW Plt Count MPV Neut % (Auto) Lymph % (Auto) Gulf % (Auto) Eos % (Auto) Baso % (Auto) Neut # (Auto) Lymph # (Auto) Gulf # (Auto) Eos # (Auto) Baso # (Auto) PT 13.7 H INR 1.2 APTT 66 H Puncture Site pCO2 pO2 HCO3 ABG pH ABG Total CO2 ABG O2 Saturation ABG Base Excess ABG Hemoglobin ABG Carboxyhemoglobin POC ABG HHb (Measured) ABG Methemoglobin Jamey Test A-a O2 Difference Respiratory Index Hgb O2 Saturation Vent Mode Mechanical Rate FiO2 Tidal Volume PEEP Sodium Potassium Chloride Carbon Dioxide Anion Gap BUN Creatinine Est GFR ( Amer) Est GFR (Non-Af Amer) POC Glucose (mg/dL) 217 H 187 H Random Glucose Calcium Phosphorus Magnesium Total Bilirubin AST ALT Alkaline Phosphatase Total Protein Albumin Globulin Albumin/Globulin Ratio Levetiracetam Attending/Attestation - Attestation I have personally seen and examined this patient.: Yes I have fully participated in the care of the patient.: Yes I have reviewed all pertinent clinical information: Yes Notes (Text): 02/19/18 18:45 doing well afevrile had trach done today will wean
--- NOTE | 2018-02-19 10:23 | RAD ---
HISTORY: intubated COMPARISON: 02/18/2018 FINDINGS: LUNGS: No active pulmonary disease. PLEURA: No significant pleural effusion identified, no pneumothorax apparent. CARDIOVASCULAR: Normal heart size. ET tube and left IJ central venous catheter unchanged. Left-sided surgical clips, possibly CABG. Sternotomy wires noted. OSSEOUS STRUCTURES: No significant abnormalities. VISUALIZED UPPER ABDOMEN: Normal. OTHER FINDINGS: None. IMPRESSION: No active disease.
--- NOTE | 2018-02-19 10:44 | CP.PCM.PN ---
Subjective - Date & Time of Evaluation Date of Evaluation: 02/19/18 Time of Evaluation: 08:00 - Subjective Subjective: NO FEVER OFF ANTIBIOTICS RX IN PROGRESS Objective - Vital Signs/Intake and Output Vital Signs (last 24 hours): Temp Pulse Resp BP Pulse Ox 97.3 F L 80 13 158/91 H 99 02/19/18 07:58 02/19/18 10:00 02/19/18 10:00 02/19/18 09:52 02/19/18 10:00 Intake and Output: 02/19/18 02/19/18 06:59 18:59 Intake Total 851.2 280.2 Output Total 765 350 Balance 86.2 -69.8 - Medications Medications: Current Medications Aspirin (Aspirin Chewable) 81 mg PO DAILY [facility] Last Admin: 02/19/18 09:29 Dose: Not Given Carvedilol (Coreg) 6.25 mg PO BID [facility] Last Admin: 02/19/18 09:30 Dose: Not Given Docusate Sodium (Colace) 100 mg PO BID [facility] Last Admin: 02/19/18 09:30 Dose: Not Given Levetiracetam 500 mg/ Dextrose 55 mls @ 420 mls/hr IVPB Q12H [facility] Last Admin: 02/19/18 09:32 Dose: 420 mls/hr Heparin Sodium/Sodium Chloride (Heparin 58979 Units/250ml 1/2 Normal Saline) 25 ,000 units in 250 mls @ 12.451 mls/hr IV .Q20H5M PRN; Protocol; 12.534 UNITS/KG/ HR PRN Reason: PROTOCOL Last Titration: 02/19/18 09:07 Dose: 0 units/kg/hr, 0 mls/hr Insulin Glargine (Lantus) 20 unit SC Q12H [facility] Last Admin: 02/19/18 07:43 Dose: Not Given Insulin Human Regular (Novolin R) 0 unit SC Q6 [facility] PRN Reason: Protocol Last Admin: 02/19/18 06:00 Dose: Not Given Lorazepam (Ativan) 2 mg IVP Q3H PRN PRN Reason: Anxiety Last Admin: 02/19/18 07:42 Dose: 2 mg Losartan Potassium (Cozaar) 50 mg PO DAILY [facility] Last Admin: 02/19/18 09:29 Dose: Not Given Pantoprazole Sodium (Protonix Inj) 40 mg IVP DAILY [facility] Last Admin: 02/19/18 09:33 Dose: 40 mg Tamsulosin HCl (Flomax) 0.4 mg PO DAILY [facility] Last Admin: 02/19/18 09:30 Dose: Not Given - Labs Labs: 02/19/18 06:34 02/19/18 06:34 PT 13.7 SECONDS (9.7-12.2) H 02/19/18 06:34 INR 1.2 02/19/18 06:34 APTT 66 SECONDS (21-34) H 02/19/18 06:34 - Constitutional Appears: In Acute Distress - Head Exam Head Exam: NORMOCEPHALIC - Eye Exam Eye Exam: absent: Scleral icterus - ENT Exam ENT Exam: Mucous Membranes Dry - Neck Exam Neck Exam: absent: Lymphadenopathy - Respiratory Exam Respiratory Exam: Decreased Breath Sounds - Cardiovascular Exam Cardiovascular Exam: REGULAR RHYTHM, +S1, +S2 - GI/Abdominal Exam GI & Abdominal Exam: Distended, Soft. absent: Tenderness - Rectal Exam Rectal Exam: Deferred - Exam Exam: NORMAL INSPECTION - Extremities Exam Extremities Exam: absent: Pedal Edema - Back Exam Back Exam: absent: CVA tenderness (L), CVA tenderness (R) - Neurological Exam Neurological Exam: Alert, Awake, Oriented x3 - Psychiatric Exam Psychiatric exam: Depressed - Skin Skin Exam: Dry Assessment and Plan (1) Sepsis Status: Acute (2) Sepsis Status: Acute (3) COPD (chronic obstructive pulmonary disease) Status: Acute (4) Congestive heart failure Status: Acute (5) Diabetes Status: Acute (6) Encephalopathy Status: Acute
[2018-02-19] MEDS ORDERED: Rocuronium 10 mg/ml (10 ml) ONE (15:31)
[2018-02-19] MEDS ORDERED: ceFAZolin 1 gm in NS 1 GM/100 ML BAG IVPB ONE (15:37)
--- NOTE | 2018-02-19 16:07 | PN ---
DATE: LOCATION: ICU 7. SUBJECTIVE: This is a 67-year-old male, seen and examined in rounds without significant clinical changes, still orally intubated on vent and sedated, tolerating PEG feeding well before without any reported residual bleeding or resistance. The entire chart was reviewed, including but noted limited to the most recent lab and radiology study results, current and the previous medication list, current and the previous medical events. Case discussed with staff at length. Most recent chest x-ray done today showed no active disease. Today's lab showed hemoglobin 9.3, hematocrit 27.4, white blood cells 4.1 with thrombocytopenia of 118, PT 13.7, PTT 66, with abnormal ABGs, BUN 21 with normal creatinine, blood glucose level 217, low calcium 8.3, low albumin 2.6, low total protein 5.7. PHYSICAL EXAMINATION: GENERAL: A 67-year-old male, orally intubated early in the day to vent. VITAL SIGNS: Afebrile, with pulse of 78, blood pressure 166/76. HEENT: Showed pale, dry oral mucous membranes. Nonicteric sclerae. LUNGS: Few scattered crepitations. Decreased air entry at bases. HEART: Positive S1 and S2. ABDOMEN: Soft with mild distention, PEG tube is in place with clean stoma, well formed. No rebound tenderness or guarding. EXTREMITIES: With edematous changes. No clubbing or cyanosis. NEUROLOGIC: No reported new neurological deficits, sensory or motor. IMPRESSION: 1. Hypoalbuminemia, hypoproteinemia, malnutrition. 2. Dysphagia. 3. Status post percutaneous endoscopic gastrostomy tube insertion. 4. Chronic obstructive pulmonary disease, pneumonia, respiratory failure. The patient is intubated, with possible tracheostomy today. 5. Peptic ulcer disease. 6. Anemia secondary to above. 7. Reported lower extremities deep venous thrombosis with status post inferior vena cava filter insertion. 8. Coagulopathy, drug induced. 9. Known history of hypertension, coronary artery disease, status post coronary artery bypass graft. 10. Diabetes mellitus with hypertension by history. SUGGESTION: 1. Continue current management. 2. Subsequent increase of the rate of feeding, then increased frequency. 3. Guaiac all the stools daily x3. 4. We will follow up closely with you. Jaya Glass MD [facility] # [id number]
[2018-02-19] MEDS ORDERED: Phenylephrine 10 mg/ml Inj ONE (16:08)
[2018-02-19] MEDS ORDERED: ePHEDrine 50 mg/ml Inj ONE (16:08)
[2018-02-19] MEDS ORDERED: Neostigmine Methylsulfate 3mg/3ml Syringe IV ONE (16:13)
--- NOTE | 2018-02-19 16:30 | PCM.SURG1 ---
Surgeon's Initial Post Op Note - Surgeon's Notes Surgeon: Dr. Giordano Stock Broker Supervisor: Dr. Orlando, PGY-3 Type of Anesthesia: General Endo Anesthesia Administered By: Dr. Morris Pre-Operative Diagnosis: Respiratory Failure Operative Findings: See operative report Post-Operative Diagnosis: Same Operation Performed: Percutaneous Tracheostomy Specimen/Specimens Removed: none Estimated Blood Loss: EBL {In ML}: 5 Blood Products Given: N/A Drains Used: No Drains Post-Op Condition: Good Date of Surgery/Procedure: 02/19/18 Time of Surgery/Procedure: 16:30
[2018-02-20] MEDS: (Novolin R) Insulin Human Regular 100 units/ml vial SC SCH ×4 (00:31→17:57)
--- NOTE | 2018-02-20 01:09 | OP ---
PROCEDURE DATE: 02/19/2018 PREOPERATIVE DIAGNOSIS: Respiratory failure. POSTOPERATIVE DIAGNOSIS: Respiratory failure. PROCEDURE CARRIED OUT: Percutaneous tracheostomy. SURGEON: Angel Giordano Jr., MD SLIVER MACHINE OPERATOR: Dr. Orlando. ANESTHESIOLOGIST: Dr. Barber. INDICATIONS: The patient is a 67-year-old male with respiratory failure, requires a tracheostomy. OPERATIVE FINDINGS: Initially we had trouble placing the percutaneous tracheostomy as we are unable to fully extend the patient's neck; however, eventually we were able to place together with bronchoscopic guidance. We placed the catheter, the wire, the dilator, and quite successfully. We secured it to the skin, it was flushed. We checked the image of the bronchoscope to see that it was in the bronchus and trachea, and this was confirmed by visualization of the rianna. Procedure was then terminated. The operation carried out was percutaneous tracheostomy. Angel Giordano Jr., MD
[2018-02-20 06:31] LABS: BASO % 0.4 % (0.0-2.0); EOS # 0.2 K/uL (0.0-0.7); EOS % 4.7 % (0.0-4.0); HEMOGLOBIN 10.6 g/dL (12.0-18.0); LYMPH # 1.2 K/uL (1.0-4.3); LYMPH % 22.3 % (20.0-40.0); MEAN CELL VOLUME 94.9 fL (80.0-94.0); MEAN CORPUSCULAR HEMOGLOBIN 32.8 pg (27.0-31.0); MEAN CORPUSCULAR HGB CONC 34.6 g/dL (33.0-37.0); MEAN PLATELET VOLUME 11.9 fL (7.2-11.7); MONO # 0.5 K/uL (0.0-0.8); MONO % 9.6 % (0.0-10.0); NEUT # 3.3 K/uL (1.8-7.0); NRBC % 0.1 % (0.0-2.0); RBC 3.22 Mil/uL (4.40-5.90); RED CELL DISTRIBUTION WIDTH 16.5 % (11.5-14.5); WHITE BLOOD COUNT 5.3 K/uL (4.8-10.8)
[2018-02-20 06:40] LABS: ALB/GLOB RATIO 0.9 (1.0-2.1); ALBUMIN 2.9 g/dL (3.5-5.0); ALT/SGPT 18 U/L (21-72); AST/SGOT 20 U/L (17-59); BLOOD UREA NITROGEN 18 mg/dL (9-20); CALCIUM 8.5 mg/dl (8.6-10.4); GFR AFRICAN-AMERICAN > 60; GFR NON-AFRICAN AMERICAN > 60
--- NOTE | 2018-02-20 07:31 | CP.PCM.PN ---
Subjective - Date & Time of Evaluation Date of Evaluation: 02/20/18 Time of Evaluation: 07:29 - Subjective Subjective: General surgery progress note for Dr. Cuca Rosario, PGY-1 Pt S & E at bedside. No acute events overnight. Pt on mechanical vent via trach, PRVC FiO2 50%, PEEP 5, RR 15, TV 400. Does not follow simple commands. Objective - Vital Signs/Intake and Output Vital Signs (last 24 hours): Temp Pulse Resp BP Pulse Ox 97.3 F L 92 H 21 165/74 H 100 02/20/18 04:00 02/20/18 07:00 02/20/18 07:00 02/20/18 06:59 02/20/18 07:00 Intake and Output: 02/20/18 02/20/18 06:59 18:59 Intake Total 670 60 Output Total 910 60 Balance -240 0 - Medications Medications: Current Medications Aspirin (Aspirin Chewable) 81 mg PO DAILY [facility] Last Admin: 02/19/18 09:29 Dose: Not Given Carvedilol (Coreg) 6.25 mg PO BID [facility] Last Admin: 02/19/18 17:51 Dose: Not Given Docusate Sodium (Colace) 100 mg PO BID [facility] Last Admin: 02/19/18 17:51 Dose: Not Given Levetiracetam 500 mg/ Dextrose 55 mls @ 420 mls/hr IVPB Q12H [facility] Last Admin: 02/19/18 21:07 Dose: 420 mls/hr Heparin Sodium/Sodium Chloride (Heparin 18760 Units/250ml 1/2 Normal Saline) 25 ,000 units in 250 mls @ 12.451 mls/hr IV .Q20H5M PRN; Protocol; 12.534 UNITS/KG/ HR PRN Reason: PROTOCOL Last Titration: 02/19/18 09:07 Dose: 0 units/kg/hr, 0 mls/hr Insulin Glargine (Lantus) 20 unit SC Q12H [facility] Last Admin: 02/19/18 21:13 Dose: 20 u Insulin Human Regular (Novolin R) 0 unit SC Q6 [facility] PRN Reason: Protocol Last Admin: 02/20/18 07:09 Dose: Not Given Lorazepam (Ativan) 2 mg IVP Q3H PRN PRN Reason: Anxiety Last Admin: 02/19/18 07:42 Dose: 2 mg Losartan Potassium (Cozaar) 50 mg PO DAILY [facility] Last Admin: 02/19/18 09:29 Dose: Not Given Pantoprazole Sodium (Protonix Inj) 40 mg IVP DAILY [facility] Last Admin: 02/19/18 09:33 Dose: 40 mg Tamsulosin HCl (Flomax) 0.4 mg PO DAILY [facility] Last Admin: 02/19/18 09:30 Dose: Not Given - Labs Labs: 02/20/18 06:21 02/20/18 06:21 PT 13.7 SECONDS (9.7-12.2) H 02/19/18 06:34 INR 1.2 02/19/18 06:34 APTT 66 SECONDS (21-34) H 02/19/18 06:34 - Constitutional Appears: Non-toxic, No Acute Distress - Head Exam Head Exam: ATRAUMATIC, NORMAL INSPECTION, NORMOCEPHALIC - Eye Exam Eye Exam: EOMI, Normal appearance - ENT Exam ENT Exam: Mucous Membranes Moist, Normal Exam - Neck Exam Additional comments: Trach in place, no bleeding noted - Respiratory Exam Respiratory Exam: NORMAL BREATHING PATTERN - Cardiovascular Exam Cardiovascular Exam: REGULAR RHYTHM, +S1, +S2 - GI/Abdominal Exam GI & Abdominal Exam: Soft. absent: Distended, Firm, Guarding, Rigid Additional comments: abdominal binder in place with PEG tube, dressing Clean/dry/intact - Neurological Exam Neurological Exam: Awake. absent: Alert, Oriented x3 - Psychiatric Exam Psychiatric exam: absent: Normal Affect, Normal Mood Additional comments: Does not follow simple commands - Skin Skin Exam: Dry, Intact, Normal Color, Warm Assessment and Plan - Assessment and Plan (Free Text) Assessment: 67M POD#1 s/p perc trach Plan: Will remove sutures on 03/01 Will follow peripherally Further mgmt as per primary/ICU teams Will DW attending Marlene, PGY-1
--- NOTE | 2018-02-20 08:15 | RAD ---
HISTORY: intubated COMPARISON: 02/19/2018 FINDINGS: LUNGS: No active pulmonary disease. Shallow lung volumes PLEURA: No significant pleural effusion identified, no pneumothorax apparent. CARDIOVASCULAR: Probable mild cardiomegaly. Coronary artery bypass clips. Midline sternotomy status central pulmonary vasculature probably top-normal given inspiration OSSEOUS STRUCTURES: Thoracic spondylosis. Midline sternotomy. VISUALIZED UPPER ABDOMEN: Apparent surgical clips present correlate clinically OTHER FINDINGS: Tracheostomy tube in place. Left internal jugular vein central line tip superior vena cava region. Similar IMPRESSION: No interval change. Support lines and tubes appear satisfactory -similar in appearance.
[2018-02-20 09:00] VITALS: O2SAT 100
[2018-02-20] MEDS: (Lantus) Insulin Glargine, Recombinant SC SCH ×2 (09:00→20:20)
--- NOTE | 2018-02-20 09:31 | CP.CCUPN ---
<Amaya Castañeda - Last Filed: 02/20/18 10:49> CCU Subjective - Physician Review Subjective (Free Text): 02/20/18 09:30 Patient seen and examined at bedside. Per nursing no acute events overnight. Patient is s/p tracheostomy yesterday. Will attempt CPAP trial this morning. On Was on Heparin drip for PE/DVT, will start Eliquis. CCU Objective - Vital Signs / Intake & Output Vital Signs (Last 4 hours): Vital Signs Temp Pulse Resp BP Pulse Ox 02/20/18 08:59 159/69 H 02/20/18 08:58 97 H 14 100 02/20/18 08:00 98.5 F 02/20/18 07:59 97 H 12 165/61 H 95 02/20/18 07:00 92 H 21 100 02/20/18 06:59 165/74 H 02/20/18 06:00 78 15 100 02/20/18 05:59 91/44 L Intake and Output (Last 8hrs): Intake & Output 02/19/18 02/20/18 02/20/18 22:59 06:59 14:59 Intake Total 690 480 133 Output Total 1420 590 60 Balance -730 -110 73 Intake: IV 500 Intake, IV Amount 50 13 Left Distal Port Internal 50 Jugular Left Medial Port Internal 13 Jugular Tube Feeding 140 480 120 Output: Urine 1420 590 60 2-way Urethral 620 590 60 Urine, Voided 0 - Physical Exam Head: Positive for: Atraumatic, Normocephalic Pupils: Positive for: PERRL Conjunctiva: Positive for: Normal Mouth: Positive for: Moist Mucous Membranes Neck: Positive for: Normal Range of Motion, Other (Trach) Respiratory/Chest: Positive for: Clear to Auscultation, Good Air Exchange. Negative for: Respiratory Distress Cardiovascular: Positive for: Regular Rate and Rhythm, Normal S1, S2. Negative for: Tachycardic Abdomen: Positive for: Normal Bowel Sounds, Feeding Tubes (+peg tube), Other ( Obese). Negative for: Tenderness, Distention, Peritoneal Signs Upper Extremity: Positive for: Normal Inspection Lower Extremity: Positive for: Normal Inspection Neurological: Positive for: Other (Moves all extremities) Skin: Positive for: Warm, Dry Psychiatric: Positive for: Alert - Medications Active Medications: Active Medications Generic Name Dose Route Start Last Admin Trade Name Freq PRN Reason Stop Dose Admin Apixaban 10 mg 02/20/18 10:00 02/20/18 09:26 Eliquis PO 10 mg BID [facility] Administration Aspirin 81 mg 01/17/18 10:00 02/20/18 09:06 Aspirin Chewable PO 81 mg DAILY [facility] Administration Carvedilol 6.25 mg 02/19/18 10:00 02/20/18 09:07 Coreg PO 6.25 mg BID [facility] Administration Docusate Sodium 100 mg 02/15/18 18:00 02/20/18 09:06 Colace PO 100 mg BID [facility] Administration Levetiracetam 500 mg/ Dextrose 55 mls @ 420 mls/hr 02/08/18 22:00 02/19/18 21 :07 IVPB 420 mls/hr Q12H [facility] Administration Insulin Glargine 20 unit 02/09/18 08:00 02/20/18 09:00 Lantus SC Not Given Q12H [facility] Insulin Human Regular 0 unit 02/18/18 12:00 02/20/18 07:09 Novolin R SC Not Given Q6 [facility] Protocol Lorazepam 2 mg 02/14/18 14:07 02/19/18 07:42 Ativan IVP 2 mg Q3H PRN Administration Anxiety Losartan Potassium 50 mg 02/19/18 10:00 02/20/18 09:07 Cozaar PO 50 mg DAILY [facility] Administration Pantoprazole Sodium 40 mg 02/13/18 11:30 02/20/18 09:07 Protonix Inj IVP 40 mg DAILY [facility] Administration Tamsulosin HCl 0.4 mg 01/30/18 20:00 02/20/18 09:07 Flomax PO 0.4 mg DAILY [facility] Administration - Patient Studies Lab Studies: Lab Studies 02/20/18 02/20/18 02/20/18 Range/Units 06:21 06:21 04:52 WBC 5.3 (4.8-10.8) K/uL RBC 3.22 L (4.40-5.90) Mil/uL Hgb 10.6 L (12.0-18.0) g/dL Hct 30.5 L (35.0-51.0) % MCV 94.9 H (80.0-94.0) fL MCH 32.8 H (27.0-31.0) pg MCHC 34.6 (33.0-37.0) g/dL RDW 16.5 H (11.5-14.5) % Plt Count 146 (130-400) K/uL MPV 11.9 H (7.2-11.7) fL Neut % (Auto) 63.0 (50.0-75.0) % Lymph % (Auto) 22.3 (20.0-40.0) % [place] % (Auto) 9.6 (0.0-10.0) % Eos % (Auto) 4.7 H (0.0-4.0) % Baso % (Auto) 0.4 (0.0-2.0) % Neut # (Auto) 3.3 (1.8-7.0) K/uL Lymph # (Auto) 1.2 (1.0-4.3) K/uL [place] # (Auto) 0.5 (0.0-0.8) K/uL Eos # (Auto) 0.2 (0.0-0.7) K/uL Baso # (Auto) 0.0 (0.0-0.2) K/uL Sodium 144 (132-148) mmol/L Potassium 3.8 (3.6-5.2) mmol/L Chloride 99 (98-107) mmol/L Carbon Dioxide 32 H (22-30) mmol/L Anion Gap 17 (10-20) BUN 18 (9-20) mg/dL Creatinine 0.9 (0.8-1.5) mg/dL Est GFR ( Amer) > 60 Est GFR (Non-Af Amer) > 60 POC Glucose (mg/dL) 140 H (65-110) mg/dL Random Glucose 150 H (75-110) mg/dL Calcium 8.5 L (8.6-10.4) mg/dl Phosphorus 3.1 (2.5-4.5) mg/dL Magnesium 2.0 (1.6-2.3) mg/dL Total Bilirubin 0.8 (0.2-1.3) mg/dL AST 20 (17-59) U/L ALT 18 L (21-72) U/L Alkaline Phosphatase 78 (38-126) U/L Total Protein 6.2 L (6.3-8.3) g/dL Albumin 2.9 L (3.5-5.0) g/dL Globulin 3.2 (2.2-3.9) gm/dL Albumin/Globulin Ratio 0.9 L (1.0-2.1) Levetiracetam mcg/mL 02/19/18 02/19/18 02/19/18 Range/Units 23:32 18:16 11:28 WBC (4.8-10.8) K/uL RBC (4.40-5.90) Mil/uL Hgb (12.0-18.0) g/dL Hct (35.0-51.0) % MCV (80.0-94.0) fL MCH (27.0-31.0) pg MCHC (33.0-37.0) g/dL RDW (11.5-14.5) % Plt Count (130-400) K/uL MPV (7.2-11.7) fL Neut % (Auto) (50.0-75.0) % Lymph % (Auto) (20.0-40.0) % [place] % (Auto) (0.0-10.0) % Eos % (Auto) (0.0-4.0) % Baso % (Auto) (0.0-2.0) % Neut # (Auto) (1.8-7.0) K/uL Lymph # (Auto) (1.0-4.3) K/uL [place] # (Auto) (0.0-0.8) K/uL Eos # (Auto) (0.0-0.7) K/uL Baso # (Auto) (0.0-0.2) K/uL Sodium (132-148) mmol/L Potassium (3.6-5.2) mmol/L Chloride (98-107) mmol/L Carbon Dioxide (22-30) mmol/L Anion Gap (10-20) BUN (9-20) mg/dL Creatinine (0.8-1.5) mg/dL Est GFR ( Amer) Est GFR (Non-Af Amer) POC Glucose (mg/dL) 153 H 187 H 217 H (65-110) mg/dL Random Glucose (75-110) mg/dL Calcium (8.6-10.4) mg/dl Phosphorus (2.5-4.5) mg/dL Magnesium (1.6-2.3) mg/dL Total Bilirubin (0.2-1.3) mg/dL AST (17-59) U/L ALT (21-72) U/L Alkaline Phosphatase (38-126) U/L Total Protein (6.3-8.3) g/dL Albumin (3.5-5.0) g/dL Globulin (2.2-3.9) gm/dL Albumin/Globulin Ratio (1.0-2.1) Levetiracetam mcg/mL 02/16/18 Range/Units 06:34 WBC (4.8-10.8) K/uL RBC (4.40-5.90) Mil/uL Hgb (12.0-18.0) g/dL Hct (35.0-51.0) % MCV (80.0-94.0) fL MCH (27.0-31.0) pg MCHC (33.0-37.0) g/dL RDW (11.5-14.5) % Plt Count (130-400) K/uL MPV (7.2-11.7) fL Neut % (Auto) (50.0-75.0) % Lymph % (Auto) (20.0-40.0) % [place] % (Auto) (0.0-10.0) % Eos % (Auto) (0.0-4.0) % Baso % (Auto) (0.0-2.0) % Neut # (Auto) (1.8-7.0) K/uL Lymph # (Auto) (1.0-4.3) K/uL [place] # (Auto) (0.0-0.8) K/uL Eos # (Auto) (0.0-0.7) K/uL Baso # (Auto) (0.0-0.2) K/uL Sodium (132-148) mmol/L Potassium (3.6-5.2) mmol/L Chloride (98-107) mmol/L Carbon Dioxide (22-30) mmol/L Anion Gap (10-20) BUN (9-20) mg/dL Creatinine (0.8-1.5) mg/dL Est GFR ( Amer) Est GFR (Non-Af Amer) POC Glucose (mg/dL) (65-110) mg/dL Random Glucose (75-110) mg/dL Calcium (8.6-10.4) mg/dl Phosphorus (2.5-4.5) mg/dL Magnesium (1.6-2.3) mg/dL Total Bilirubin (0.2-1.3) mg/dL AST (17-59) U/L ALT (21-72) U/L Alkaline Phosphatase (38-126) U/L Total Protein (6.3-8.3) g/dL Albumin (3.5-5.0) g/dL Globulin (2.2-3.9) gm/dL Albumin/Globulin Ratio (1.0-2.1) Levetiracetam 15.6 mcg/mL Laboratory Results - last 24 hr 02/16/18 02/19/18 02/19/18 06:34 11:28 18:16 WBC RBC Hgb Hct MCV MCH MCHC RDW Plt Count MPV Neut % (Auto) Lymph % (Auto) [place] % (Auto) Eos % (Auto) Baso % (Auto) Neut # (Auto) Lymph # (Auto) [place] # (Auto) Eos # (Auto) Baso # (Auto) Sodium Potassium Chloride Carbon Dioxide Anion Gap BUN Creatinine Est GFR ( Amer) Est GFR (Non-Af Amer) POC Glucose (mg/dL) 217 H 187 H Random Glucose Calcium Phosphorus Magnesium Total Bilirubin AST ALT Alkaline Phosphatase Total Protein Albumin Globulin Albumin/Globulin Ratio Levetiracetam 15.6 02/19/18 02/20/18 02/20/18 23:32 04:52 06:21 WBC 5.3 RBC 3.22 L Hgb 10.6 L Hct 30.5 L MCV 94.9 H MCH 32.8 H MCHC 34.6 RDW 16.5 H Plt Count 146 MPV 11.9 H Neut % (Auto) 63.0 Lymph % (Auto) 22.3 [place] % (Auto) 9.6 Eos % (Auto) 4.7 H Baso % (Auto) 0.4 Neut # (Auto) 3.3 Lymph # (Auto) 1.2 [place] # (Auto) 0.5 Eos # (Auto) 0.2 Baso # (Auto) 0.0 Sodium Potassium Chloride Carbon Dioxide Anion Gap BUN Creatinine Est GFR ( Amer) Est GFR (Non-Af Amer) POC Glucose (mg/dL) 153 H 140 H Random Glucose Calcium Phosphorus Magnesium Total Bilirubin AST ALT Alkaline Phosphatase Total Protein Albumin Globulin Albumin/Globulin Ratio Levetiracetam 02/20/18 06:21 WBC RBC Hgb Hct MCV MCH MCHC RDW Plt Count MPV Neut % (Auto) Lymph % (Auto) [place] % (Auto) Eos % (Auto) Baso % (Auto) Neut # (Auto) Lymph # (Auto) [place] # (Auto) Eos # (Auto) Baso # (Auto) Sodium 144 Potassium 3.8 Chloride 99 Carbon Dioxide 32 H Anion Gap 17 BUN 18 Creatinine 0.9 Est GFR ( Amer) > 60 Est GFR (Non-Af Amer) > 60 POC Glucose (mg/dL) Random Glucose 150 H Calcium 8.5 L Phosphorus 3.1 Magnesium 2.0 Total Bilirubin 0.8 AST 20 ALT 18 L Alkaline Phosphatase 78 Total Protein 6.2 L Albumin 2.9 L Globulin 3.2 Albumin/Globulin Ratio 0.9 L Levetiracetam Fingerstick Blood Sugar Results: 210 Assessment/Plan - Assessment and Plan (Free Text) Assessment: 67 year old male with a past medical history of type 2 dm, hypertension, cva, s/ p cabg (8yrs ago), hyperlipidemia who was admitted to the ICU after being found unresponsive by daughter. Patient subsequently had a witnessed seizure while in the hospital and was transferred to the ICU for further monitoring. While in the ICU patient was extubated and downgraded to the floors. While on the floors , patient desat low 80s, reintubated for acute respiratory failure. Brought back to the ICU. Acute Hypoxic Respiratory Failure/Saddle PE -S/P Trach, peg tube placement, IVC filter placement -Will attempt CPAP trial this morning -Patient with Saddle PE, right subclavian DVT -Thrombocytopenia resolved, HIT workup negative -Will discontinue Heparin drip and start Eliquis 10mg PO BID x 1 week -After 1 week can continue Eliquis 5mg PO BID -Morning CXR and ABG reviewed Urinary Retention -Stanley discontinued last night, has not urinated yet -Bladder scan ordered Seizure disorder/Status epilepticus -Continue Keppra 500mg IV Q12H, Keppra level 15.6 -Ativan 2mg Q3H prn agitation -Neurology on consult, help appreciated Diabetes Mellitus -Lantus 20 units Q12H -ISS ACHS, accuchecks ACHS Hypertension -Coreg 6.25mg PO BID -Cozaar 50mg PO daily PPx -Protonix 40mg IVP daily -Patient will need L tach evaluation -Continue to monitor in the ICU -Continue PT/OT Plan discussed with Dr Mims <Ford Mims - Last Filed: 02/20/18 16:54> CCU Objective - Vital Signs / Intake & Output Vital Signs (Last 4 hours): Vital Signs Pulse Resp BP Pulse Ox 02/20/18 14:15 88 17 127/62 100 02/20/18 13:15 90 16 144/60 100 Intake and Output (Last 8hrs): Intake & Output 02/20/18 02/20/18 02/20/18 06:59 14:59 22:59 Intake Total 480 556 60 Output Total 590 1530 0 Balance -110 -974 60 Intake: Intake, IV Amount 76 Left Medial Port Internal 76 Jugular Tube Feeding 480 480 60 Output: Urine 590 1530 0 2-way Urethral 590 60 Straight 725 Urine, Voided 20 0 - Medications Active Medications: Active Medications Generic Name Dose Route Start Last Admin Trade Name Freq PRN Reason Stop Dose Admin Apixaban 10 mg 02/20/18 10:00 02/20/18 09:26 Eliquis PO 02/27/18 10:01 10 mg BID SHINE Administration Aspirin 81 mg 01/17/18 10:00 02/20/18 09:06 Aspirin Chewable PO 81 mg DAILY [facility]INE Administration Carvedilol 6.25 mg 02/19/18 10:00 02/20/18 09:07 Coreg PO 6.25 mg BID SHINE Administration Docusate Sodium 100 mg 02/15/18 18:00 02/20/18 09:06 Colace PO 100 mg BID SHINE Administration Levetiracetam 500 mg/ Dextrose 55 mls @ 420 mls/hr 02/08/18 22:00 02/20/18 10 :28 IVPB 420 mls/hr Q12H [facility] Administration Insulin Glargine 20 unit 02/09/18 08:00 02/20/18 09:00 Lantus SC Not Given Q12H [facility] Insulin Human Regular 0 unit 02/18/18 12:00 02/20/18 11:19 Novolin R SC 4 unit Q6 [facility] Administration Protocol Lorazepam 2 mg 02/14/18 14:07 02/19/18 07:42 Ativan IVP 2 mg Q3H PRN Administration Anxiety Losartan Potassium 50 mg 02/19/18 10:00 02/20/18 09:07 Cozaar PO 50 mg DAILY [facility] Administration Pantoprazole Sodium 40 mg 02/13/18 11:30 02/20/18 09:07 Protonix Inj IVP 40 mg DAILY [facility] Administration Tamsulosin HCl 0.4 mg 01/30/18 20:00 02/20/18 09:07 Flomax PO 0.4 mg DAILY [facility]INE Administration - Patient Studies Lab Studies: Lab Studies 02/20/18 02/20/18 02/20/18 Range/Units 11:14 06:21 06:21 WBC 5.3 (4.8-10.8) K/uL RBC 3.22 L (4.40-5.90) Mil/uL Hgb 10.6 L (12.0-18.0) g/dL Hct 30.5 L (35.0-51.0) % MCV 94.9 H (80.0-94.0) fL MCH 32.8 H (27.0-31.0) pg MCHC 34.6 (33.0-37.0) g/dL RDW 16.5 H (11.5-14.5) % Plt Count 146 (130-400) K/uL MPV 11.9 H (7.2-11.7) fL Neut % (Auto) 63.0 (50.0-75.0) % Lymph % (Auto) 22.3 (20.0-40.0) % [place] % (Auto) 9.6 (0.0-10.0) % Eos % (Auto) 4.7 H (0.0-4.0) % Baso % (Auto) 0.4 (0.0-2.0) % Neut # (Auto) 3.3 (1.8-7.0) K/uL Lymph # (Auto) 1.2 (1.0-4.3) K/uL [place] # (Auto) 0.5 (0.0-0.8) K/uL Eos # (Auto) 0.2 (0.0-0.7) K/uL Baso # (Auto) 0.0 (0.0-0.2) K/uL Sodium 144 (132-148) mmol/L Potassium 3.8 (3.6-5.2) mmol/L Chloride 99 (98-107) mmol/L Carbon Dioxide 32 H (22-30) mmol/L Anion Gap 17 (10-20) BUN 18 (9-20) mg/dL Creatinine 0.9 (0.8-1.5) mg/dL Est GFR ( Amer) > 60 Est GFR (Non-Af Amer) > 60 POC Glucose (mg/dL) 299 H (65-110) mg/dL Random Glucose 150 H (75-110) mg/dL Calcium 8.5 L (8.6-10.4) mg/dl Phosphorus 3.1 (2.5-4.5) mg/dL Magnesium 2.0 (1.6-2.3) mg/dL Total Bilirubin 0.8 (0.2-1.3) mg/dL AST 20 (17-59) U/L ALT 18 L (21-72) U/L Alkaline Phosphatase 78 (38-126) U/L Total Protein 6.2 L (6.3-8.3) g/dL Albumin 2.9 L (3.5-5.0) g/dL Globulin 3.2 (2.2-3.9) gm/dL Albumin/Globulin Ratio 0.9 L (1.0-2.1) 02/20/18 02/19/18 02/19/18 Range/Units 04:52 23:32 18:16 WBC (4.8-10.8) K/uL RBC (4.40-5.90) Mil/uL Hgb (12.0-18.0) g/dL Hct (35.0-51.0) % MCV (80.0-94.0) fL MCH (27.0-31.0) pg MCHC (33.0-37.0) g/dL RDW (11.5-14.5) % Plt Count (130-400) K/uL MPV (7.2-11.7) fL Neut % (Auto) (50.0-75.0) % Lymph % (Auto) (20.0-40.0) % [place] % (Auto) (0.0-10.0) % Eos % (Auto) (0.0-4.0) % Baso % (Auto) (0.0-2.0) % Neut # (Auto) (1.8-7.0) K/uL Lymph # (Auto) (1.0-4.3) K/uL [place] # (Auto) (0.0-0.8) K/uL Eos # (Auto) (0.0-0.7) K/uL Baso # (Auto) (0.0-0.2) K/uL Sodium (132-148) mmol/L Potassium (3.6-5.2) mmol/L Chloride (98-107) mmol/L Carbon Dioxide (22-30) mmol/L Anion Gap (10-20) BUN (9-20) mg/dL Creatinine (0.8-1.5) mg/dL Est GFR ( Amer) Est GFR (Non-Af Amer) POC Glucose (mg/dL) 140 H 153 H 187 H (65-110) mg/dL Random Glucose (75-110) mg/dL Calcium (8.6-10.4) mg/dl Phosphorus (2.5-4.5) mg/dL Magnesium (1.6-2.3) mg/dL Total Bilirubin (0.2-1.3) mg/dL AST (17-59) U/L ALT (21-72) U/L Alkaline Phosphatase (38-126) U/L Total Protein (6.3-8.3) g/dL Albumin (3.5-5.0) g/dL Globulin (2.2-3.9) gm/dL Albumin/Globulin Ratio (1.0-2.1) Laboratory Results - last 24 hr 02/19/18 02/19/18 02/20/18 18:16 23:32 04:52 WBC RBC Hgb Hct MCV MCH MCHC RDW Plt Count MPV Neut % (Auto) Lymph % (Auto) [place] % (Auto) Eos % (Auto) Baso % (Auto) Neut # (Auto) Lymph # (Auto) [place] # (Auto) Eos # (Auto) Baso # (Auto) Sodium Potassium Chloride Carbon Dioxide Anion Gap BUN Creatinine Est GFR ( Amer) Est GFR (Non-Af Amer) POC Glucose (mg/dL) 187 H 153 H 140 H Random Glucose Calcium Phosphorus Magnesium Total Bilirubin AST ALT Alkaline Phosphatase Total Protein Albumin Globulin Albumin/Globulin Ratio 02/20/18 02/20/18 02/20/18 06:21 06:21 11:14 WBC 5.3 RBC 3.22 L Hgb 10.6 L Hct 30.5 L MCV 94.9 H MCH 32.8 H MCHC 34.6 RDW 16.5 H Plt Count 146 MPV 11.9 H Neut % (Auto) 63.0 Lymph % (Auto) 22.3 [place] % (Auto) 9.6 Eos % (Auto) 4.7 H Baso % (Auto) 0.4 Neut # (Auto) 3.3 Lymph # (Auto) 1.2 [place] # (Auto) 0.5 Eos # (Auto) 0.2 Baso # (Auto) 0.0 Sodium 144 Potassium 3.8 Chloride 99 Carbon Dioxide 32 H Anion Gap 17 BUN 18 Creatinine 0.9 Est GFR ( Amer) > 60 Est GFR (Non-Af Amer) > 60 POC Glucose (mg/dL) 299 H Random Glucose 150 H Calcium 8.5 L Phosphorus 3.1 Magnesium 2.0 Total Bilirubin 0.8 AST 20 ALT 18 L Alkaline Phosphatase 78 Total Protein 6.2 L Albumin 2.9 L Globulin 3.2 Albumin/Globulin Ratio 0.9 L Attending/Attestation - Attestation I have personally seen and examined this patient.: Yes I have fully participated in the care of the patient.: Yes I have reviewed all pertinent clinical information: Yes Notes (Text): 02/20/18 16:53 patient seen and examined. Status post tracheostomy CPAP trial Off antibiotics Stanley catheter removed and patient has difficulty voiding Patient stopped and patient started on eliquis For transfer to LT[facility]
--- NOTE | 2018-02-20 10:02 | CP.PCM.PN ---
Subjective - Date & Time of Evaluation Date of Evaluation: 02/20/18 Time of Evaluation: 09:00 - Subjective Subjective: afeb on vent via trach nad confused as before Objective - Vital Signs/Intake and Output Vital Signs (last 24 hours): Temp Pulse Resp BP Pulse Ox 98.5 F 97 H 14 159/69 H 100 02/20/18 08:00 02/20/18 08:58 02/20/18 08:58 02/20/18 08:59 02/20/18 08:58 Intake and Output: 02/20/18 02/20/18 06:59 18:59 Intake Total 670 206 Output Total 910 80 Balance -240 126 - Medications Medications: Current Medications Apixaban (Eliquis) 10 mg PO BID [facility] Last Admin: 02/20/18 09:26 Dose: 10 mg Aspirin (Aspirin Chewable) 81 mg PO DAILY [facility] Last Admin: 02/20/18 09:06 Dose: 81 mg Carvedilol (Coreg) 6.25 mg PO BID [facility] Last Admin: 02/20/18 09:07 Dose: 6.25 mg Docusate Sodium (Colace) 100 mg PO BID [facility] Last Admin: 02/20/18 09:06 Dose: 100 mg Levetiracetam 500 mg/ Dextrose 55 mls @ 420 mls/hr IVPB Q12H [facility] Last Admin: 02/19/18 21:07 Dose: 420 mls/hr Insulin Glargine (Lantus) 20 unit SC Q12H [facility] Last Admin: 02/20/18 09:00 Dose: Not Given Insulin Human Regular (Novolin R) 0 unit SC Q6 [facility] PRN Reason: Protocol Last Admin: 02/20/18 07:09 Dose: Not Given Lorazepam (Ativan) 2 mg IVP Q3H PRN PRN Reason: Anxiety Last Admin: 02/19/18 07:42 Dose: 2 mg Losartan Potassium (Cozaar) 50 mg PO DAILY [facility] Last Admin: 02/20/18 09:07 Dose: 50 mg Pantoprazole Sodium (Protonix Inj) 40 mg IVP DAILY [facility] Last Admin: 02/20/18 09:07 Dose: 40 mg Tamsulosin HCl (Flomax) 0.4 mg PO DAILY [facility] Last Admin: 02/20/18 09:07 Dose: 0.4 mg - Labs Labs: 02/20/18 06:21 02/20/18 06:21 PT 13.7 SECONDS (9.7-12.2) H 02/19/18 06:34 INR 1.2 02/19/18 06:34 APTT 66 SECONDS (21-34) H 02/19/18 06:34 - Constitutional Appears: Non-toxic, Confused, Chronically Ill - Head Exam Head Exam: NORMOCEPHALIC - Eye Exam Eye Exam: PERRL. absent: Scleral icterus - ENT Exam ENT Exam: Mucous Membranes Dry - Neck Exam Neck Exam: absent: Lymphadenopathy - Respiratory Exam Respiratory Exam: Decreased Breath Sounds - Cardiovascular Exam Cardiovascular Exam: REGULAR RHYTHM - GI/Abdominal Exam GI & Abdominal Exam: Distended - Rectal Exam Rectal Exam: Deferred - Exam Exam: NORMAL INSPECTION - Extremities Exam Extremities Exam: absent: Pedal Edema - Back Exam Back Exam: absent: CVA tenderness (L), CVA tenderness (R) - Neurological Exam Neurological Exam: Altered. absent: Oriented x3 Neuro motor strength exam: Left Upper Extremity: 2/1, Right Upper Extremity: 2/1 , Left Lower Extremity: 2/1, Right Lower Extremity: 2/1 - Psychiatric Exam Psychiatric exam: Depressed Assessment and Plan (1) Sepsis Status: Acute (2) Sepsis Status: Acute (3) COPD (chronic obstructive pulmonary disease) Status: Acute (4) Congestive heart failure Status: Acute (5) Diabetes Status: Acute (6) Encephalopathy Status: Acute
[2018-02-20] MEDS: LEVETIRACETAM IVPB SCH ×2 (10:28→23:05)
[2018-02-20] MEDS: DEXTROSE 5% IVPB SCH ×2 (10:28→23:05)
[2018-02-20] MEDS: WATER IVPB SCH ×2 (10:28→23:05)
--- NOTE | 2018-02-20 12:23 | CP.PCM.PN ---
Subjective - Date & Time of Evaluation Date of Evaluation: 02/19/18 Time of Evaluation: 18:00 Objective - Vital Signs/Intake and Output Vital Signs (last 24 hours): Temp Pulse Resp BP Pulse Ox 98.5 F 88 13 115/51 L 100 02/20/18 08:00 02/20/18 11:15 02/20/18 11:15 02/20/18 11:15 02/20/18 11:15 Intake and Output: 02/20/18 02/20/18 06:59 18:59 Intake Total 670 376 Output Total 910 80 Balance -240 296 - Medications Medications: Current Medications Apixaban (Eliquis) 10 mg PO BID [facility] Stop: 02/27/18 10:01 Last Admin: 02/20/18 09:26 Dose: 10 mg Aspirin (Aspirin Chewable) 81 mg PO DAILY [facility] Last Admin: 02/20/18 09:06 Dose: 81 mg Carvedilol (Coreg) 6.25 mg PO BID [facility] Last Admin: 02/20/18 09:07 Dose: 6.25 mg Docusate Sodium (Colace) 100 mg PO BID [facility] Last Admin: 02/20/18 09:06 Dose: 100 mg Levetiracetam 500 mg/ Dextrose 55 mls @ 420 mls/hr IVPB Q12H [facility] Last Admin: 02/20/18 10:28 Dose: 420 mls/hr Insulin Glargine (Lantus) 20 unit SC Q12H [facility] Last Admin: 02/20/18 09:00 Dose: Not Given Insulin Human Regular (Novolin R) 0 unit SC Q6 [facility] PRN Reason: Protocol Last Admin: 02/20/18 11:19 Dose: 4 unit Lorazepam (Ativan) 2 mg IVP Q3H PRN PRN Reason: Anxiety Last Admin: 02/19/18 07:42 Dose: 2 mg Losartan Potassium (Cozaar) 50 mg PO DAILY [facility] Last Admin: 02/20/18 09:07 Dose: 50 mg Pantoprazole Sodium (Protonix Inj) 40 mg IVP DAILY [facility] Last Admin: 02/20/18 09:07 Dose: 40 mg Tamsulosin HCl (Flomax) 0.4 mg PO DAILY [facility] Last Admin: 02/20/18 09:07 Dose: 0.4 mg - Labs Labs: 02/20/18 06:21 02/20/18 06:21 PT 13.7 SECONDS (9.7-12.2) H 02/19/18 06:34 INR 1.2 02/19/18 06:34 APTT 66 SECONDS (21-34) H 02/19/18 06:34 Assessment and Plan (1) Status epilepticus Status: Acute (2) COPD (chronic obstructive pulmonary disease) Status: Acute (3) Congestive heart failure Status: Acute (4) Diabetes Status: Acute (5) Hypernatremia Status: Acute (6) Acute respiratory failure Status: Acute (7) Ischemic encephalopathy Status: Acute (8) Acute respiratory failure with hypoxia Status: Acute
[2018-02-20 22:10] LABS: SQUAMOUS EPITHIAL 1 /hpf (0-5); URINE BILIRUBIN NEGATIVE (NEGATIVE); URINE COLOR Yellow (YELLOW); URINE GLUCOSE (UA) 3+ mg/dL (Normal); URINE LEUKOCYTE ESTERASE NEG Leu/uL (Negative); URINE PROTEIN 2+ mg/dL (NEGATIVE); URINE UROBILINOGEN NORMAL mg/dL (0.2-1.0)
[2018-02-20 22:11] LABS: URINE BLOOD TRACE (NEGATIVE)
[2018-02-20 22:12] LABS: URINE BACTERIA OCC (<OCC); URINE CLARITY HAZY (Clear)
--- NOTE | 2018-02-20 23:23 | CP.PCM.PN ---
Subjective - Date & Time of Evaluation Date of Evaluation: 02/20/18 Time of Evaluation: 18:00 - Subjective Subjective: afeb on vent via trach nad confused as before Objective - Vital Signs/Intake and Output Vital Signs (last 24 hours): Temp Pulse Resp BP Pulse Ox 97.7 F 91 H 15 135/70 100 02/20/18 20:00 02/20/18 18:14 02/20/18 18:14 02/20/18 18:14 02/20/18 18:14 Intake and Output: 02/20/18 02/21/18 18:59 06:59 Intake Total 796 Output Total 1530 Balance -734 - Medications Medications: Current Medications Apixaban (Eliquis) 10 mg PO BID [facility] Stop: 02/27/18 10:01 Last Admin: 02/20/18 17:57 Dose: 10 mg Aspirin (Aspirin Chewable) 81 mg PO DAILY [facility] Last Admin: 02/20/18 09:06 Dose: 81 mg Carvedilol (Coreg) 6.25 mg PO BID [facility] Last Admin: 02/20/18 17:57 Dose: 6.25 mg Docusate Sodium (Colace) 100 mg PO BID [facility] Last Admin: 02/20/18 17:57 Dose: 100 mg Levetiracetam 500 mg/ Dextrose 55 mls @ 420 mls/hr IVPB Q12H [facility] Last Admin: 02/20/18 23:05 Dose: 420 mls/hr Insulin Glargine (Lantus) 20 unit SC Q12H [facility] Last Admin: 02/20/18 20:20 Dose: 20 u Insulin Human Regular (Novolin R) 0 unit SC Q6 [facility] PRN Reason: Protocol Last Admin: 02/20/18 17:57 Dose: 6 unit Lorazepam (Ativan) 2 mg IVP Q3H PRN PRN Reason: Anxiety Last Admin: 02/19/18 07:42 Dose: 2 mg Losartan Potassium (Cozaar) 50 mg PO DAILY [facility] Last Admin: 02/20/18 09:07 Dose: 50 mg Pantoprazole Sodium (Protonix Inj) 40 mg IVP DAILY [facility] Last Admin: 02/20/18 09:07 Dose: 40 mg Tamsulosin HCl (Flomax) 0.4 mg PO DAILY [facility] Last Admin: 02/20/18 09:07 Dose: 0.4 mg - Labs Labs: 02/20/18 06:21 02/20/18 06:21 PT 13.7 SECONDS (9.7-12.2) H 02/19/18 06:34 INR 1.2 02/19/18 06:34 APTT 66 SECONDS (21-34) H 02/19/18 06:34 Assessment and Plan (1) Status epilepticus Status: Acute (2) COPD (chronic obstructive pulmonary disease) Status: Acute (3) Congestive heart failure Status: Acute (4) Diabetes Status: Acute (5) Hypernatremia Status: Acute (6) Acute respiratory failure Status: Acute (7) Ischemic encephalopathy Status: Acute (8) Acute respiratory failure with hypoxia Status: Acute
[2018-02-21] MEDS: (Novolin R) Insulin Human Regular 100 units/ml vial SC SCH ×3 (00:47→12:10)
[2018-02-21 05:34] LABS: ARTERIAL BLOOD GAS HCO3 30.2 mmol/L (21-28); ARTERIAL BLOOD GAS O2 SAT 98.7 % (95-98); ARTERIAL BLOOD GAS PCO2 43 mm/Hg (35-45); ARTERIAL BLOOD GAS PH 7.47 (7.35-7.45); ARTERIAL BLOOD GAS PO2 97 mm/Hg (80-100); ARTERIAL BLOOD GAS TCO2 32.6 mmol/L (22-28)
[2018-02-21 06:09] LABS: BASO % 0.5 % (0.0-2.0); EOS # 0.2 K/uL (0.0-0.7); EOS % 4.1 % (0.0-4.0); HEMOGLOBIN 9.5 g/dL (12.0-18.0); LYMPH # 1.1 K/uL (1.0-4.3); LYMPH % 23.3 % (20.0-40.0); MEAN CELL VOLUME 96.5 fL (80.0-94.0); MEAN CORPUSCULAR HEMOGLOBIN 32.9 pg (27.0-31.0); MEAN CORPUSCULAR HGB CONC 34.1 g/dL (33.0-37.0); MEAN PLATELET VOLUME 11.2 fL (7.2-11.7); MONO # 0.4 K/uL (0.0-0.8); MONO % 8.9 % (0.0-10.0); NEUT # 3.1 K/uL (1.8-7.0); NEUT % 63.2 % (50.0-75.0); NRBC % 0.1 % (0.0-2.0); RBC 2.9 Mil/uL (4.40-5.90); RED CELL DISTRIBUTION WIDTH 17.7 % (11.5-14.5); WHITE BLOOD COUNT 4.9 K/uL (4.8-10.8)
[2018-02-21 06:34] LABS: ALB/GLOB RATIO 1.1 (1.0-2.1); ALBUMIN 2.8 g/dL (3.5-5.0); ALT/SGPT 11 U/L (21-72); AST/SGOT 14 U/L (17-59); BLOOD UREA NITROGEN 22 mg/dL (9-20); CALCIUM 7.4 mg/dl (8.6-10.4); GFR AFRICAN-AMERICAN > 60; GFR NON-AFRICAN AMERICAN > 60
[2018-02-21] MEDS: (Lantus) Insulin Glargine, Recombinant SC SCH (07:19)
[2018-02-21] MEDS: LEVETIRACETAM IVPB SCH (09:21)
[2018-02-21] MEDS: DEXTROSE 5% IVPB SCH (09:21)
[2018-02-21] MEDS: WATER IVPB SCH (09:21)
[2018-02-21] MEDS ORDERED: Pneumococcal 23-Valent Vaccine IM ONE (10:00)
--- NOTE | 2018-02-21 10:09 | CP.PCM.PN ---
Subjective - Date & Time of Evaluation Date of Evaluation: 02/21/18 Time of Evaluation: 09:44 - Subjective Subjective: PT CLEARED FOR D/C TODAY TO [facility]; ALREADY HAS TRANSPORTATION ARRANGED BY JASMIN TO CONTACT DR. CARRERA FOR ATTENDING MD PREFERENCE ONCE PT ARRIVES. NO FURTHER ORDERS AT THIS TIME. SEE BELOW FOR D/C PLAN SENT ON PT''S D /C PAPERWORK. -PLEASE CONTACT DR. CARRERA REGARDING [facility] ATTENDING PHYSICIAN PREFERENCE. -CONTINUE PEG FEEDINGS FOLLOWS: GLUCERNA 1.5 TO RUN CONTINUOUSLY AT 60 ML/HR -CONTACT DR. CARRERA FOR ANY QUESTIONS REGARDING RECENT HOSPITALIZATION, Objective - Vital Signs/Intake and Output Vital Signs (last 24 hours): Temp Pulse Resp BP Pulse Ox 98.4 F 75 15 96/42 L 100 02/21/18 07:37 02/21/18 07:37 02/21/18 07:37 02/21/18 07:37 02/21/18 07:37 Intake and Output: 02/21/18 02/21/18 06:59 18:59 Intake Total 770 Output Total 1800 Balance -1030 - Medications Medications: Current Medications Apixaban (Eliquis) 10 mg PO BID [facility] Stop: 02/27/18 10:01 Last Admin: 02/21/18 09:21 Dose: 10 mg Aspirin (Aspirin Chewable) 81 mg PO DAILY [facility] Last Admin: 02/21/18 09:20 Dose: 81 mg Carvedilol (Coreg) 6.25 mg PO BID [facility] Last Admin: 02/21/18 09:21 Dose: 6.25 mg Docusate Sodium (Colace) 100 mg PO BID [facility] Last Admin: 02/21/18 09:20 Dose: 100 mg Levetiracetam 500 mg/ Dextrose 55 mls @ 420 mls/hr IVPB Q12H [facility] Last Admin: 02/21/18 09:21 Dose: 420 mls/hr Insulin Glargine (Lantus) 20 unit SC Q12H [facility] Last Admin: 02/21/18 07:19 Dose: 20 u Insulin Human Regular (Novolin R) 0 unit SC Q6 SHINE PRN Reason: Protocol Last Admin: 02/21/18 06:40 Dose: 4 unit Lorazepam (Ativan) 2 mg IVP Q3H PRN PRN Reason: Anxiety Last Admin: 02/21/18 00:35 Dose: 2 mg Losartan Potassium (Cozaar) 50 mg PO DAILY [facility] Last Admin: 02/21/18 09:21 Dose: 50 mg Pantoprazole Sodium (Protonix Inj) 40 mg IVP DAILY [facility] Last Admin: 02/21/18 09:22 Dose: 40 mg Tamsulosin HCl (Flomax) 0.4 mg PO DAILY [facility] Last Admin: 02/21/18 09:21 Dose: 0.4 mg - Labs Labs: 02/21/18 06:01 02/21/18 06:02 PT 13.7 SECONDS (9.7-12.2) H 02/19/18 06:34 INR 1.2 02/19/18 06:34 APTT 66 SECONDS (21-34) H 02/19/18 06:34
[2018-02-21 12:24] VITALS: BP 90/49; PULSE 69; RESP 15; TEMP 98.1
--- NOTE | 2018-02-21 16:41 | PN ---
DATE: LOCATION: ICU 7. SUBJECTIVE: This is a 67-year-old male seen and examined in rounds, post PEG insertion, without significant clinical changes. Tolerating PEG feeding well. No reported active bleeding and the patient is still on tracheostomy to vent. Most recent lab results showed hemoglobin 9.5, hematocrit 27.9, with normal platelet count and normal white blood cells, with abnormal ABGs. BUN 22, blood glucose level 241, calcium 7.4, albumin 2.8, total protein 5.4. Most recent chest x-ray done yesterday, official report seen and reviewed. PHYSICAL EXAMINATION GENERAL: A 67-year-old male, nonverbal. VITAL SIGNS: Afebrile, with pulse of 72, blood pressure 106/56. HEENT: Showed pale, dry, oral mucous membranes. Nonicteric sclerae. LUNGS: Few scattered crepitations. Decreased air entry at bases. HEART: Positive S1 and S2. ABDOMEN: Soft, bowel sounds are present, with mild distention. PEG tube is in place. No mass or organomegaly. No rebound tenderness or guarding. EXTREMITIES: With mild edematous changes. No clubbing or cyanosis. NEUROLOGIC: No new reported neurological deficits, sensory or motor. IMPRESSION: 1. Malnutrition with hypoalbuminemia. 2. Dysphagia. 3. Status post percutaneous endoscopic gastrostomy insertion. 4. Peptic ulcer disease. 5. Chronic obstructive pulmonary disease with pneumonia, respiratory failure, was status post tracheostomy to vent. 6. Known history of deep venous thrombosis, hypertension, coronary artery disease, status post coronary artery bypass surgery. 7. Known history of diabetes mellitus. SUGGESTIONS: 1. Continue current management. 2. Subsequent increase of the rate of feeding as tolerated. Jaya Glass MD
--- NOTE | 2018-02-21 23:13 | CP.PCM.DIS ---
Provider - Provider Date of Admission: 01/16/18 13:59 Attending physician: Arash Rose MD Time Spent in preparation of Discharge (in minutes): 41 Diagnosis - Discharge Diagnosis (1) Status epilepticus Status: Acute (2) COPD (chronic obstructive pulmonary disease) Status: Acute (3) Congestive heart failure Status: Acute (4) Diabetes Status: Acute (5) Hypernatremia Status: Acute (6) Acute respiratory failure Status: Acute (7) Ischemic encephalopathy Status: Acute (8) Acute respiratory failure with hypoxia Status: Acute Hospital Course - Lab Results Lab Results: Micro Results 02/08/18 20:58 Blood Blood Culture - Final NO GROWTH AFTER 5 DAYS 02/08/18 20:58 Blood Gram Stain - Final TEST NOT PERFORMED 02/08/18 20:58 Blood Blood Culture - Final NO GROWTH AFTER 5 DAYS 02/08/18 20:58 Blood Gram Stain - Final TEST NOT PERFORMED 02/08/18 Unknown Urine,Catheterized Urine Culture - Final No Growth (<1,000 CFU/ML) 02/08/18 Unknown Naris MRSA Culture (Admit) - Final MRSA NOT DETECTED 02/01/18 04:00 Blood-Venous Blood Culture - Final NO GROWTH AFTER 5 DAYS 02/01/18 04:00 Blood-Venous Gram Stain - Final TEST NOT PERFORMED 02/01/18 04:00 Blood-Venous Blood Culture - Final NO GROWTH AFTER 5 DAYS 02/01/18 04:00 Blood-Venous Gram Stain - Final TEST NOT PERFORMED 02/02/18 09:14 Nose MRSA Culture - Final MRSA NOT DETECTED 01/31/18 Unknown Urine Urine Culture - Final No Growth (<1,000 CFU/ML) 01/28/18 11:36 Stool Ova and Parasite Concentrate Exam - Final 01/26/18 18:45 Blood-Venous S.aureus & Coag-Neg Staph PNA FISH - Final 01/26/18 18:45 Blood-Venous Blood Culture - Final Coagulase Neg Staphylococcus 01/26/18 18:45 Blood-Venous Gram Stain - Final 01/26/18 18:45 Blood-Venous Blood Culture - Preliminary Gram Pos Cocci In Clusters 01/26/18 18:45 Blood-Venous Gram Stain - Final 01/26/18 18:40 Urine,Catheterized Urine Culture - Final No Growth (<1,000 CFU/ML) 01/26/18 18:26 Throat Group A Strep Throat Culture - Final NORMAL SAPROPHYTIC HALEY. CULTURE NEGATIVE FOR BETA STREP GROUP A. 01/21/18 Unknown Blood-Venous Blood Culture - Final NO GROWTH AFTER 5 DAYS 01/21/18 Unknown Blood-Venous Gram Stain - Final TEST NOT PERFORMED 01/21/18 Unknown Blood-Venous Blood Culture - Final NO GROWTH AFTER 5 DAYS 01/21/18 Unknown Blood-Venous Gram Stain - Final TEST NOT PERFORMED 01/22/18 14:00 Back Gram Stain - Final 01/22/18 14:00 Back Wound Culture - Final Enterococcus Faecalis Coagulase Neg Staphylococcus 01/21/18 Unknown Trachasp Gram Stain - Final 01/21/18 Unknown Trachasp Sputum Culture - Final Staphylococcus Aureus 01/17/18 15:26 Blood Blood Culture - Final NO GROWTH AFTER 5 DAYS 01/17/18 15:26 Blood Gram Stain - Final TEST NOT PERFORMED 01/17/18 15:26 Blood Blood Culture - Final NO GROWTH AFTER 5 DAYS 01/17/18 15:26 Blood Gram Stain - Final TEST NOT PERFORMED 01/21/18 Unknown Urine,Lewis Urine Culture - Final No Growth (<1,000 CFU/ML) 01/16/18 17:36 Trachasp Gram Stain - Final 01/16/18 17:36 Trachasp Sputum Culture - Final NORMAL ORAL HALEY 01/16/18 20:18 Naris MRSA Culture (Admit) - Final MRSA NOT DETECTED 01/17/18 15:26 Urine Urine Culture - Final No Growth (<1,000 CFU/ML) Most Recent Lab Values WBC 4.9 K/uL (4.8-10.8) 02/21/18 06:01 RBC 2.90 Mil/uL (4.40-5.90) L 02/21/18 06:01 Hgb 9.5 g/dL (12.0-18.0) L 02/21/18 06:01 Hct 27.9 % (35.0-51.0) L 02/21/18 06:01 MCV 96.5 fL (80.0-94.0) H 02/21/18 06:01 MCH 32.9 pg (27.0-31.0) H 02/21/18 06:01 MCHC 34.1 g/dL (33.0-37.0) 02/21/18 06:01 RDW 17.7 % (11.5-14.5) H 02/21/18 06:01 Plt Count 152 K/uL (130-400) 02/21/18 06:01 MPV 11.2 fL (7.2-11.7) 02/21/18 06:01 Neut % (Auto) 63.2 % (50.0-75.0) 02/21/18 06:01 Lymph % (Auto) 23.3 % (20.0-40.0) 02/21/18 06:01 [place] % (Auto) 8.9 % (0.0-10.0) 02/21/18 06:01 Eos % (Auto) 4.1 % (0.0-4.0) H 02/21/18 06:01 Baso % (Auto) 0.5 % (0.0-2.0) 02/21/18 06:01 Neut # (Auto) 3.1 K/uL (1.8-7.0) 02/21/18 06:01 Lymph # (Auto) 1.1 K/uL (1.0-4.3) 02/21/18 06:01 [place] # (Auto) 0.4 K/uL (0.0-0.8) 02/21/18 06:01 Eos # (Auto) 0.2 K/uL (0.0-0.7) 02/21/18 06:01 Baso # (Auto) 0.0 K/uL (0.0-0.2) 02/21/18 06:01 Neutrophils % (Manual) 91 % (50-75) H 01/16/18 12:27 Band Neutrophils % 1 % (0-2) 01/16/18 12:27 Lymphocytes % (Manual) 7 % (20-40) L 01/16/18 12:27 Monocytes % (Manual) 1 % (0-10) 01/16/18 12:27 Differential Comment 02/08/18 20:47 Platelet Estimate Normal (NORMAL) 01/16/18 12:27 RBC Morphology Normal 01/16/18 12:27 PT 13.7 SECONDS (9.7-12.2) H 02/19/18 06:34 INR 1.2 02/19/18 06:34 APTT 66 SECONDS (21-34) H 02/19/18 06:34 Hep-Aria Thrombocytopen Positive (Negative) H 02/09/18 12:02 Puncture Site R brac 02/21/18 05:19 pCO2 43 mm/Hg (35-45) 02/21/18 05:19 pO2 97 mm/Hg (80-100) 02/21/18 05:19 HCO3 30.2 mmol/L (21-28) H 02/21/18 05:19 ABG pH 7.47 (7.35-7.45) H 02/21/18 05:19 ABG Total CO2 32.6 mmol/L (22-28) H 02/21/18 05:19 ABG O2 Saturation 98.7 % (95-98) H 02/21/18 05:19 ABG Base Excess 6.8 mmol/L (-2.0-3.0) H 02/21/18 05:19 ABG Hemoglobin 9.5 g/dL (11.7-17.4) L 02/19/18 05:13 ABG Carboxyhemoglobin 1.8 % (0.5-1.5) H 02/19/18 05:13 POC ABG HHb (Measured) 1.1 % (0.0-5.0) 02/19/18 05:13 ABG Methemoglobin 1.0 % (0.0-3.0) 02/19/18 05:13 Jamey Test Na 02/21/18 05:19 ABG Potassium 3.1 mmol/L (3.6-5.2) L 02/21/18 05:19 A-a O2 Difference 206.0 mm/Hg 02/21/18 05:19 Respiratory Index 2.1 02/21/18 05:19 Hgb O2 Saturation 96.1 % (95.0-98.0) 02/19/18 05:13 Sodium 148.0 mmol/l (132-148) 02/21/18 05:19 Chloride 115.0 mmol/L (98-107) H 02/21/18 05:19 Glucose 215 mg/dl (75-110) H 02/21/18 05:19 Lactate 0.6 mmol/L (0.7-2.1) L 02/21/18 05:19 Vent Mode Prvc 02/21/18 05:19 Mechanical Rate 15 02/21/18 05:19 FiO2 50.0 % 02/21/18 05:19 Tidal Volume 400 02/21/18 05:19 PEEP 5 02/21/18 05:19 Pressure Support 15 01/29/18 04:30 CPAP 5 01/29/18 04:30 Inspiratory BiPAP 12 01/31/18 05:20 Expiratory BiPAP 6 01/31/18 05:20 Crit Value Called To Vanessa craft icu manager 01/21/18 05:02 Crit Value Called By Cathy lindsey rt 01/21/18 05:02 Crit Value Read Back Y 01/21/18 05:02 Blood Gas Notified Time 600 01/21/18 05:02 Sodium 144 mmol/L (132-148) 02/21/18 06:02 Potassium 3.7 mmol/L (3.6-5.2) 02/21/18 06:02 Chloride 101 mmol/L (98-107) 02/21/18 06:02 Carbon Dioxide 35 mmol/L (22-30) H 02/21/18 06:02 Anion Gap 12 (10-20) 02/21/18 06:02 BUN 22 mg/dL (9-20) H 02/21/18 06:02 Creatinine 0.8 mg/dL (0.8-1.5) 02/21/18 06:02 Est GFR ( Amer) > 60 02/21/18 06:02 Est GFR (Non-Af Amer) > 60 02/21/18 06:02 POC Glucose (mg/dL) 241 mg/dL (65-110) H 02/21/18 11:30 Random Glucose 206 mg/dL (75-110) H 02/21/18 06:02 Hemoglobin A1c 9.2 % (4.2-6.5) H 01/16/18 12:27 Serum Osmolality 357 mosm/kg (272-300) H 02/08/18 17:39 Calcium 7.4 mg/dl (8.6-10.4) L 02/21/18 06:02 Phosphorus 3.2 mg/dL (2.5-4.5) 02/21/18 06:02 Magnesium 2.1 mg/dL (1.6-2.3) 02/21/18 06:02 Total Bilirubin 0.6 mg/dL (0.2-1.3) 02/21/18 06:02 AST 14 U/L (17-59) L D 02/21/18 06:02 ALT 11 U/L (21-72) L D 02/21/18 06:02 Alkaline Phosphatase 86 U/L (38-126) 02/21/18 06:02 Ammonia 12 umol/L (9-33) D 02/09/18 11:25 Total Creatine Kinase 60 U/L (55-170) 02/09/18 04:45 CK-MB (Mass) 0.99 ng/mL (0.0-3.38) 02/09/18 04:45 Troponin I 0.0810 ng/mL (0.00-0.120) 02/09/18 04:45 Total Protein 5.4 g/dL (6.3-8.3) L 02/21/18 06:02 Albumin 2.8 g/dL (3.5-5.0) L 02/21/18 06:02 Globulin 2.6 gm/dL (2.2-3.9) 02/21/18 06:02 Albumin/Globulin Ratio 1.1 (1.0-2.1) 02/21/18 06:02 Triglycerides 115 mg/dL (0-149) 01/16/18 12:27 Cholesterol 186 mg/dL (0-199) 01/16/18 12:27 LDL Cholesterol Direct 103 mg/dL (0-129) 01/16/18 12:27 HDL Cholesterol 49 mg/dL (30-70) 01/16/18 12:27 Amylase 39 U/L (30-110) 02/02/18 06:16 Lipase 60 U/L (23-300) 02/02/18 06:16 UF Heparin Interp Negative (Negative) 02/09/18 12:02 Procalcitonin < 0.05 NG/ML (0.19-0.49) L 02/13/18 10:54 TSH 3rd Generation 0.97 mIU/L (0.46-4.68) 02/05/18 06:39 Arterial Blood Potassium 3.1 mmol/L (3.6-5.2) L 02/21/18 05:19 Urine Color Yellow (YELLOW) 02/20/18 21:50 Urine Clarity Hazy (Clear) 02/20/18 21:50 Urine pH 6.0 (5.0-8.0) 02/20/18 21:50 Ur Specific Barlow 1.022 (1.003-1.030) 02/20/18 21:50 Urine Protein 2+ mg/dL (NEGATIVE) H 02/20/18 21:50 Urine Glucose (UA) 3+ mg/dL (Normal) H 02/20/18 21:50 Urine Ketones Negative mg/dL (NEGATIVE) 02/20/18 21:50 Urine Blood Trace (NEGATIVE) H 02/20/18 21:50 Urine Nitrate Negative (NEGATIVE) 02/20/18 21:50 Urine Bilirubin Negative (NEGATIVE) 02/20/18 21:50 Urine Urobilinogen Normal mg/dL (0.2-1.0) 02/20/18 21:50 Ur Leukocyte Esterase Neg Minh/uL (Negative) 02/20/18 21:50 Urine WBC (Auto) 6 /hpf (0-5) H 02/20/18 21:50 Urine RBC (Auto) 6 /hpf (0-3) H 02/20/18 21:50 Ur Squamous Epith Cells 1 /hpf (0-5) 02/20/18 21:50 Urine Bacteria Occ (<OCC) H 02/20/18 21:50 Granular Casts (Auto) 0-2 /lpf (0-1) 02/08/18 16:23 Urine Yeast (Budding) Few /hpf (NEGATIVE) H 02/20/18 21:50 Urine Osmolality 764 mosm/kg (300-1000) 02/08/18 16:23 Ur Random Sodium 49 mmol/L 01/20/18 18:08 Ur Random Potassium 63.3 mmol/L 02/08/18 17:25 Ur Random Urea Nitrogn 758 mg/dL 01/20/18 18:08 Ur Random Glucose 4679 mg/dL 01/20/18 18:08 Urine Chloride 44 mmol/L (32-290) 01/20/18 18:08 Vancomycin Trough 5.2 ug/mL (5.0-10.0) 02/12/18 05:58 Urine Opiates Screen Negative (NEGATIVE) 02/09/18 08:26 Urine Methadone Screen Negative (NEGATIVE) 02/09/18 08:26 Ur Barbiturates Screen Negative (NEGATIVE) 02/09/18 08:26 Levetiracetam 15.6 mcg/mL 02/16/18 06:34 Ur Phencyclidine Scrn Negative (NEGATIVE) 02/09/18 08:26 Ur Amphetamines Screen Negative (NEGATIVE) 02/09/18 08:26 U Benzodiazepines Scrn Positive (NEGATIVE) 02/09/18 08:26 U Oth Cocaine Metabols Negative (NEGATIVE) 02/09/18 08:26 U Cannabinoids Screen Negative (NEGATIVE) 02/09/18 08:26 Heparin-induced Plt Ab Negative (Negative) 02/09/18 12:02 POLO UFH Low Dose 0.1 0 % Release 02/09/18 12:02 POLO UFH Low Dose 0.5 0 % Release 02/09/18 12:02 POLO UFH High Dose 100 0 % Release 02/09/18 12:02 RPR Nonreactive (NONREACTIVE) 01/26/18 18:26 Lyme Disease Screen <0.90 index 02/05/18 06:39 West Nile Virus IgG Ab 4.84 H 01/26/18 18:26 West Nile Virus IgM Ab 0.06 01/26/18 18:26 Hepatitis A IgM Ab Negative (NEGATIVE) 01/27/18 06:03 Hep Bs Antigen Negative (NEGATIVE) 01/27/18 06:03 Hep B Core IgM Ab Negative (NEGATIVE) 01/27/18 06:03 Hepatitis C Antibody Negative (NEGATIVE) 01/27/18 06:03 HIV 1&2 Antibody Screen Negative (NEGATIVE) 01/27/18 06:03 Influenza Typ A,B (EIA) Negative for flu a/b (NEGATIVE) 01/27/18 06:03 Ur L.pneumophila Ag Negative (NEGATIVE) 01/17/18 15:02 Mycoplasma pneumon IgM Negative (NEGATIVE) 01/17/18 15:02 Grp A Beta Strep Ag Negative (NEGATIVE) 01/26/18 18:26 Blood Type O POSITIVE 02/07/18 20:58 Antibody Screen Negative 02/07/18 20:58 - Hospital Course Hospital Course: PT SEEN AND EXAMINED, CLEARED FOR D/C TODAY TO [facility]; ADMIT PT TO [facility] UNDER THE SERVICE OF DR. MARTÍNEZ CARO. ISHA GARCIA MADE AWARE AND SHE WILL NOTIFY [facility]. . DR. CARO TO BE NOTIFIED ONCE PT IS AT [facility] REGARDING ADMISSION. 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 LEWIS CARE PER FACILITY PROTOCOL ONCE AT [facility] AND CAN BE CHANGED OR REMOVED PER THE FACILITY PROTOCOL. NO FURTHER ORDERS. GLUCERNA 1.5 TO RUN CONTINUOUSLY AT 60 ML/HR -CONTACT DR. ROSE FOR ANY QUESTIONS REGARDING RECENT HOSPITALIZATION, Discharge Exam - Head Exam Head Exam: NORMOCEPHALIC - Eye Exam Eye Exam: Normal appearance - ENT Exam ENT Exam: Mucous Membranes Moist - Respiratory Exam Respiratory Exam: Decreased Breath Sounds, Clear to PA & Lateral, Rales - Cardiovascular Exam Cardiovascular Exam: REGULAR RHYTHM, +S1, +S2 - GI/Abdominal Exam GI & Abdominal Exam: Normal Bowel Sounds - Rectal Exam Rectal Exam: Deferred Discharge Plan - Follow Up Plan Condition: SERIOUS Disposition: HOME/ ROUTINE Instructions: Stroke (DC), Deep Vein Thrombosis (Blood Clots in the Legs) (DC) , Seizures, Adult (DC), Pulmonary Embolism (Blood Clot in the Lungs) (DC), Altered Mental Status (GEN) Additional Instructions: -PLEASE ADMIT UNDER THE SERVICE OF DR. MARTÍNEZ CARO PER DR. ROSE'S REQUEST. PLEASE CALL AND NOTIFY DR. CARO OF THIS ADMISSION ONCE PT ARRIVES TO FACILITY. -ADMITTING ORDERS PER DR. CARO. -PLEASE NOTE, LEWIS CARE PER FACILITY PROTOCOL ONCE AT [facility] AND CAN BE CHANGED OR REMOVED PER THE FACILITY PROTOCOL. NOTE THAT LEWIS WAS INSERTED AT [facility] ON 02/20/18. -CONTINUE PEG FEEDINGS FOLLOWS: GLUCERNA 1.5 TO RUN CONTINUOUSLY AT 60 ML/HR -CONTACT DR. ROSE FOR ANY QUESTIONS REGARDING RECENT HOSPITALIZATION, Referrals: Martínez Caro MD [Medical Doctor] - Carl Devi MD [Staff Provider] - Amberly Mcintosh APN-C [Staff Provider] - Jaya Samaniego [Staff Provider] - Baldemar Ruiz MD [Staff Provider] - Sukumar Perez MD [Staff Provider] - Arash Rose MD [Staff Provider] - Davis Spaulding MD [Staff Provider] - Angel Giordano Jr., MD [Staff Provider] - Tristan Concepcion DO [Staff Provider] -
== END 2018-02-21 12:50 | disposition home or self-care (01) | DRG 3 ==
LOC: C.ER 12:16 → C.9I 13:59 → C.3T 02-02 11:23 → C.9I 02-08 19:53
PROVIDERS: ADMIT Internal Medicine; ATTEND Internal Medicine
PROC: 5A1955Z Respiratory Ventilation, Greater than 96 Consecutive Hours (ICD-10-PCS; 2018-01-16)
PROC: 5A09557 Assistance with Respiratory Ventilation, Greater than 96 Consecutive Hours, Continuous Positive Airway Pressure (ICD-10-PCS; 2018-01-31)
PROC: 0DJ08ZZ Inspection of Upper Intestinal Tract, Via Natural or Artificial Opening Endoscopic (ICD-10-PCS; 2018-02-07)
PROC: 0BH17EZ Insertion of Endotracheal Airway into Trachea, Via Natural or Artificial Opening (ICD-10-PCS; 2018-02-08)
PROC: 5A1955Z Respiratory Ventilation, Greater than 96 Consecutive Hours (ICD-10-PCS; 2018-02-08)
PROC: 0DH63UZ Insertion of Feeding Device into Stomach, Percutaneous Approach (ICD-10-PCS; 2018-02-15)
PROC: 06H03DZ Insertion of Intraluminal Device into Inferior Vena Cava, Percutaneous Approach (ICD-10-PCS; 2018-02-16)
PROC: 0B113F4 Bypass Trachea to Cutaneous with Tracheostomy Device, Percutaneous Approach (ICD-10-PCS; principal; 2018-02-19 13:15)
DX: G40.901 Epilepsy, unspecified, not intractable, with status epilepticus (principal); I26.92 Saddle embolus of pulmonary artery without acute cor pulmonale; G92 Toxic encephalopathy; J96.01 Acute respiratory failure with hypoxia; A41.9 Sepsis, unspecified organism; I13.0 Hypertensive heart and chronic kidney disease with heart failure and stage 1 through stage 4 chronic kidney disease, or unspecified chronic kidney disease; I82.621 Acute embolism and thrombosis of deep veins of right upper extremity; I82.B11 Acute embolism and thrombosis of right subclavian vein; J44.0 Chronic obstructive pulmonary disease with (acute) lower respiratory infection; N17.9 Acute kidney failure, unspecified; J98.11 Atelectasis; D61.818 Other pancytopenia; E46 Unspecified protein-calorie malnutrition; E87.0 Hyperosmolality and hypernatremia; I82.4Z1 Acute embolism and thrombosis of unspecified deep veins of right distal lower extremity; Z99.11 Dependence on respirator [ventilator] status; D68.9 Coagulation defect, unspecified; I25.10 Atherosclerotic heart disease of native coronary artery without angina pectoris; F41.9 Anxiety disorder, unspecified; I27.20 Pulmonary hypertension, unspecified; K59.00 Constipation, unspecified; R47.02 Dysphasia; R32 Unspecified urinary incontinence; R62.7 Adult failure to thrive; R13.10 Dysphagia, unspecified; N18.9 Chronic kidney disease, unspecified; K29.70 Gastritis, unspecified, without bleeding; D63.8 Anemia in other chronic diseases classified elsewhere; E11.22 Type 2 diabetes mellitus with diabetic chronic kidney disease; E11.65 Type 2 diabetes mellitus with hyperglycemia; E11.69 Type 2 diabetes mellitus with other specified complication; E78.5 Hyperlipidemia, unspecified; E86.0 Dehydration; E87.5 Hyperkalemia; E87.6 Hypokalemia; I50.9 Heart failure, unspecified; Z79.01 Long term (current) use of anticoagulants; Z79.4 Long term (current) use of insulin; Z86.73 Personal history of transient ischemic attack (TIA), and cerebral infarction without residual deficits; Z95.1 Presence of aortocoronary bypass graft; F19.10 Other psychoactive substance abuse, uncomplicated; K29.60 Other gastritis without bleeding; K44.9 Diaphragmatic hernia without obstruction or gangrene; K20.9 Esophagitis, unspecified

== ENCOUNTER 2018-05-07 19:59 | Inpatient (IN) | payer MEDICARE, MEDICAID ==
[2018-05-07 19:59] VITALS: BMI 32.8
--- NOTE | 2018-05-07 20:26 | C.PDOC ---
History Of Present Illness 68 y/o male brought to the ED from half-way due to change in mental status and agitation that began today. History obtained from half-way and daughter at bedside. Patient is nonverbal at baseline, with tracheostomy in place. On arrival to the ED patient appears pleasant, cooperative, and AAOx1. 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 Time Seen by Provider: 05/07/18 20:25 Chief Complaint (Nursing): Altered Mental Status History Per: Family (daughter) History/Exam Limitations: None Onset/Duration Of Symptoms: Hrs Current Symptoms Are (Timing): Still Present Usual Baseline: Non-verbal Exacerbating Factor(s): Unknown Use Of Anticoag/Antiplatelets: No Speech Is: Other (Non-verbal) Severity: None Pain Scale Rating Of: 0 Additional History Per: Long-Term Associated Symptoms: Confused, Agitated Past Medical History Reviewed: Historical Data, Nursing Documentation, Vital Signs Vital Signs: Last Vital Signs Temp 99.0 F 05/07/18 20:14 Pulse 79 05/07/18 20:09 Resp 16 05/07/18 20:09 BP 156/75 H 05/07/18 20:09 Pulse Ox 100 05/07/18 21:04 - Medical History PMH: HTN, Hypercholesterolemia Denies: Chronic Kidney Disease Surgical History: CABG (8 yrs ago) - [facility] Procedures ASSISTANCE WITH RESPIRATORY VENTILATION, >96 HRS, CPAP (01/16/18) BYPASS TRACHEA TO CUTANEOUS WITH TRACH DEV, PERC APPROACH (01/16/18) CONTRAST AORTOGRAM (01/16/14) CONTRAST ARTERIOGRAM-LEG (01/16/14) FLUOROSCOPY OF AORTA, BI LE ART USING OTH CONTRAST (01/08/18) INSERTION OF ENDOTRACHEAL AIRWAY INTO TRACHEA, VIA OPENING (01/16/18) INSERTION OF FEEDING DEVICE INTO STOMACH, PERC APPROACH (01/16/18) INSERTION OF INTRALUM DEV INTO INF VENA CAVA, PERC APPROACH (01/16/18) INSPECTION OF UPPER INTESTINAL TRACT, ENDO (01/16/18) RESPIRATORY VENTILATION, GREATER THAN 96 CONSECUTIVE HOURS (01/16/18) Family History: States: No Known Family Hx - Social History Hx Alcohol Use: No Hx Substance Use: No - Immunization History Hx Tetanus Toxoid Vaccination: No Hx Influenza Vaccination: No Hx Pneumococcal Vaccination: No Review Of Systems Constitutional: Negative for: Fever Respiratory: Negative for: Shortness of Breath Neurological: Positive for: Altered Mental Status Psych: Positive for: Other (Agitation) Physical Exam - Physical Exam Appears: No Acute Distress, Other (Awake, cooperative, orientedx1) Skin: Warm, Dry Head: Normacephalic Eye(s): bilateral: Normal Inspection Oral Mucosa: Dry Neck: Supple, Other (Trach in place) Chest: Symmetrical, Other (Well-healed chest scar noted) Cardiovascular: Rhythm Regular Respiratory: No Rales, Rhonchi (noted to bilateral bases), No Wheezing Gastrointestinal/Abdominal: Soft, No Tenderness, No Distention Back: Normal Inspection Extremity: Bilateral: Atraumatic, Normal Color And Temperature, Normal ROM ( moving all extremities) Pulses: Left Dorsalis Pedis: Normal, Right Dorsalis Pedis: Normal Neurological/Psych: Other (Orientedx1) Gait: Unable To Assess ED Course And Treatment - Laboratory Results Result Diagrams: 05/07/18 20:52 05/07/18 20:52 ECG: Interpreted By Me, Viewed By Me ECG Rhythm: Sinus Rhythm (75), Nonspecific Changes O2 Sat by Pulse Oximetry: 100 Pulse Ox Interpretation: Normal - Radiology CXR: Interpreted by Me, Viewed By Me CXR Interpretation: Yes: Cardiomegaly, Other (cabg,trach). No: Infiltrates, Fracture Progress Note: Blood work and urine sent. EKG and CXR ordered and reviewed. Awaiting CT Head without contrast. Patient started on IV fluids Disposition Discussed With : Arash Rose Comment: accepted the pt on his service and took over the care at 10PM Doctor Will See Patient In The: Hospital Counseled Patient/Family Regarding: Studies Performed, Diagnosis - Disposition Disposition: HOSPITALIZED Disposition Time: 20:25 Condition: FAIR Forms: [facility] (Yakut) - POA Present On Arrival: None - Clinical Impression Clinical Impression: COPD (chronic obstructive pulmonary disease), Change in mental status, Dehydration - Scribe Statement The provider has reviewed the documentation as recorded by the Scribe (Caitlin Minor) Provider Attestation: All medical record entries made by the Scribe were at my direction and personally dictated by me. I have reviewed the chart and agree that the record accurately reflects my personal performance of the history, physical exam, medical decision making, and the department course for this patient. I have also personally directed, reviewed, and agree with the discharge instructions and disposition. Decision To Admit - Pt Status Changed To: Hospital Disposition Of: Inpatient - Admit Certification Admit to Inpatient:: After my assessment, the patient will require hospitalization for at least two midnights. This is because of the severity of symptoms shown, intensity of services needed, and/or the medical risk in this patient being treated as an outpatient. - InPatient: Physician Admission Certification:: After my assessment, the patient will require hospitalization for at least two midnights. This is because of the severity of symptoms shown, intensity of services needed, and/or the medical risk in this patient being treated as an outpatient. - . Bed Request Type: Regular Admitting Physician: Arash Rose Patient Diagnosis: COPD (chronic obstructive pulmonary disease), Change in mental status, Dehydration
[2018-05-07] MEDS ORDERED: Sodium Chloride 0.9% 1,000 ML IV ONE (20:31)
[2018-05-07 20:56] LABS: BASO % 0.3 % (0.0-2.0); EOS # 0.1 K/uL (0.0-0.7); EOS % 1.8 % (0.0-4.0); LYMPH # 1.6 K/uL (1.0-4.3); LYMPH % 21.9 % (20.0-40.0); MEAN CORPUSCULAR HEMOGLOBIN 30.4 pg (27.0-31.0); MEAN CORPUSCULAR HGB CONC 32.8 g/dL (33.0-37.0); MEAN PLATELET VOLUME 10.2 fL (7.2-11.7); MONO # 0.6 K/uL (0.0-0.8); MONO % 7.6 % (0.0-10.0); NEUT % 68.4 % (50.0-75.0); RBC 3.84 Mil/uL (4.40-5.90); RED CELL DISTRIBUTION WIDTH 13.9 % (11.5-14.5); WHITE BLOOD COUNT 7.3 K/uL (4.8-10.8)
[2018-05-07 20:57] LABS: VENOUS BLOOD GAS PCO2 68 mmHg (40-60); VENOUS BLOOD GAS PO2 25 mm/Hg (30-55); VENOUS BLOOD PH 7.38 (7.32-7.43)
[2018-05-07 20:59] LABS: HEMOGLOBIN 11.7 g/dL (12.0-18.0); MEAN CELL VOLUME 92.7 fL (80.0-94.0)
[2018-05-07 21:00] LABS: INR 1.2; PROTHROMBIN TIME 12.9 SECONDS (9.7-12.2)
[2018-05-07 21:12] LABS: ALB/GLOB RATIO 1.1 (1.0-2.1); ALT/SGPT 23 U/L (21-72); AST/SGOT 23 U/L (17-59); BLOOD UREA NITROGEN 52 mg/dL (9-20); CALCIUM 9.4 mg/dl (8.6-10.4); GFR AFRICAN-AMERICAN > 60; GFR NON-AFRICAN AMERICAN > 60; LIPASE 68 U/L (23-300)
[2018-05-07] MEDS ORDERED: Sodium Chloride 0.9% 1,000 ML IV STA (22:32)
[2018-05-07] MEDS ORDERED: Sodium Chloride 0.9% 1,000 ML ONE (22:38)
--- NOTE | 2018-05-08 00:33 | CP.PCM.HP ---
History of Present Illness - History of Present Illness History of Present Illness: History Of Present Illness 68 y/o male brought to the ED from detention due to change in mental status and agitation that began today. History obtained from detention and daughter at bedside. Patient is nonverbal at baseline, with tracheostomy in place. On arrival to the ED patient appears pleasant, cooperative, and AAOx1. 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 Present on Admission - Present on Admission Any Indicators Present on Admission: No Past Patient History - Infectious Disease Hx of Infectious Diseases: None - Past Medical History & Family History Past Medical History?: Yes - Past Social History Smoking Status: Never Smoked - CARDIAC Hx Hypercholesterolemia: Yes Hx Hypertension: Yes - PULMONARY Hx Respiratory Disorders: Yes Other/Comment: s o b on exertion - NEUROLOGICAL HX Cerebrovascular Accident: Yes - HEENT Hx HEENT Problems: Yes Hx Cataracts: Yes (bilateral cat ext with iol) - RENAL Hx Chronic Kidney Disease: No - ENDOCRINE/METABOLIC Hx Diabetes Mellitus Type 2: Yes - HEMATOLOGICAL/ONCOLOGICAL Hx Blood Disorders: No - INTEGUMENTARY Hx Dermatological Problems: Yes Other/Comment: small ulcers both great toes - MUSCULOSKELETAL/RHEUMATOLOGICAL Hx Musculoskeletal Disorders: No Hx Falls: Yes - GASTROINTESTINAL Hx Gastrointestinal Disorders: No - GENITOURINARY/GYNECOLOGICAL Hx Genitourinary Disorders: No - PSYCHIATRIC Hx Substance Use: No - SURGICAL HISTORY Hx Coronary Artery Bypass Graft: Yes (8 yrs ago) - ANESTHESIA Hx Anesthesia: Yes Hx Anesthesia Reactions: No Hx Malignant Hyperthermia: No Meds Allergies/Adverse Reactions: Allergies Allergy/AdvReac Type Severity Reaction Status Date / Time No Known Allergies Allergy Verified 05/07/18 20:16 Results - Vital Signs Recent Vital Signs: Last Vital Signs Temp 99.0 F 05/08/18 00:11 Pulse 91 H 05/08/18 00:11 Resp 16 05/08/18 00:11 BP 142/60 05/08/18 00:11 Pulse Ox 95 05/08/18 00:11 - Labs Result Diagrams: 05/07/18 20:52 05/07/18 20:52 Labs: Laboratory Results - last 24 hr 05/07/18 05/07/18 05/07/18 20:30 20:52 20:52 WBC 7.3 RBC 3.84 L Hgb 11.7 L D Hct 35.6 MCV 92.7 D MCH 30.4 MCHC 32.8 L RDW 13.9 Plt Count 288 D MPV 10.2 Neut % (Auto) 68.4 Lymph % (Auto) 21.9 Dale % (Auto) 7.6 Eos % (Auto) 1.8 Baso % (Auto) 0.3 Neut # (Auto) 5.0 Lymph # (Auto) 1.6 Dale # (Auto) 0.6 Eos # (Auto) 0.1 Baso # (Auto) 0.0 PT 12.9 H INR 1.2 pO2 VBG pH VBG pCO2 VBG HCO3 VBG Total CO2 VBG O2 Sat (Calc) VBG Base Excess VBG Potassium Glucose Lactate Crit Value Called To Crit Value Called By Crit Value Read Back Blood Gas Notified Time Sodium Potassium Chloride Carbon Dioxide Anion Gap BUN Creatinine Est GFR ( Amer) Est GFR (Non-Af Amer) POC Glucose (mg/dL) 111 H Random Glucose Calcium Total Bilirubin AST ALT Alkaline Phosphatase Total Protein Albumin Globulin Albumin/Globulin Ratio Lipase Venous Blood Potassium 05/07/18 05/07/18 20:52 20:53 WBC RBC Hgb Hct MCV MCH MCHC RDW Plt Count MPV Neut % (Auto) Lymph % (Auto) Dale % (Auto) Eos % (Auto) Baso % (Auto) Neut # (Auto) Lymph # (Auto) Dale # (Auto) Eos # (Auto) Baso # (Auto) PT INR pO2 25 L VBG pH 7.38 VBG pCO2 68 H* VBG HCO3 32.8 VBG Total CO2 42.3 H VBG O2 Sat (Calc) 42.1 VBG Base Excess 12.0 H VBG Potassium 4.4 Glucose 98 Lactate 1.7 Crit Value Called To Dr. coleman Crit Value Called By Tamara rt Crit Value Read Back Y Blood Gas Notified Time 2056 Sodium 145 142.0 Potassium 4.7 Chloride 96 L 103.0 Carbon Dioxide 37 H Anion Gap 17 BUN 52 H Creatinine 1.0 Est GFR ( Amer) > 60 Est GFR (Non-Af Amer) > 60 POC Glucose (mg/dL) Random Glucose 105 Calcium 9.4 Total Bilirubin 0.6 AST 23 ALT 23 Alkaline Phosphatase 110 Total Protein 7.7 Albumin 4.0 Globulin 3.7 Albumin/Globulin Ratio 1.1 Lipase 68 Venous Blood Potassium 4.4
[2018-05-08] MEDS ORDERED: Magnesium Hydroxide Susp 30 ml UD GT PRN (08:27)
[2018-05-08] MEDS ORDERED: Insulin Detemir 100 units/ml Vial (Levemir) SC SCH (10:00)
[2018-05-08] MEDS ORDERED: Enoxaparin 40 mg Syringe SC SCH (10:00)
--- NOTE | 2018-05-08 10:23 | RAD ---
PROCEDURE: CHEST RADIOGRAPH, 1 VIEW HISTORY: AMS COMPARISON: 02/20/2018 FINDINGS: LUNGS: Limited exam given shallow inspiration. No right sided consolidation noted. Minimal patchy pathology - left lung base laterally not excluded. No dense consolidation seen here. Shallow lung lung volumes can simulate this- summation effects versus small left inferolateral pleural thickening are favored considerations. A clip projects over the right hemithorax-as before. PLEURA: No pneumothorax or large pleural fluid seen. A minimal left inferolateral pleural effusion with left inferolateral pleural thickening reaction is possible -not excluded CARDIOVASCULAR: Minimal cardiomegaly midline sternotomy coronary artery bypass clips present. -similar. Currently no central lines appreciated. OSSEOUS STRUCTURES: No significant abnormalities. VISUALIZED UPPER ABDOMEN: Normal. OTHER FINDINGS: Tracheostomy tube partially visualized - status noted previously IMPRESSION: Limited exam given shallow inspiration. No right sided consolidation noted. Minimal patchy pathology - left lung base laterally not excluded. No dense consolidation seen here. Shallow lung lung volumes can simulate this- summation effects versus small left inferolateral pleural thickening are favored considerations. A clip projects over the right hemithorax-as before. . Tracheostomy tube partially visualized - status noted previously
[2018-05-08] MEDS: Piperacill/Tazo 3.375gm in Dex 3.375 GM/50 ML BAG IVPB SCH ×3 (10:37→21:39)
[2018-05-08] MEDS: Insulin Detemir 100 units/ml Vial (Levemir) SC SCH ×2 (10:38→21:38)
[2018-05-08] MEDS: levETIRAcetam 100 mg/ml (5ml) Oral Syringe GT SCH ×2 (10:39→21:38)
[2018-05-08] MEDS: Ferrous Sulfate 300 mg/5 mL Liq UD PO SCH (10:39)
[2018-05-08] MEDS: Multiple Vitamins Oral Solution GT SCH (10:39)
[2018-05-08] MEDS: Pantoprazole 40 mg Susp UD PEG SCH (10:39)
[2018-05-08] MEDS: Valproic Acid 250 mg/5 ml UD Cup GT SCH ×2 (10:40→21:38)
[2018-05-08] MEDS: (Novolog) Insulin Aspart, Recombinant 100 u/ml 10 ml vial SC SCH ×3 (12:30→21:39)
[2018-05-08 12:41] LABS: SQUAMOUS EPITHIAL 1 /hpf (0-5); URINE BILIRUBIN NEGATIVE (NEGATIVE); URINE BLOOD 1+ (NEGATIVE); URINE CLARITY Hazy (Clear); URINE COLOR Yellow (YELLOW); URINE GLUCOSE (UA) 3+ mg/dL (Normal); URINE LEUKOCYTE ESTERASE 3+ Leu/uL (Negative); URINE PROTEIN 2+ mg/dL (NEGATIVE); URINE UROBILINOGEN NORMAL mg/dL (0.2-1.0); WBC CLUMPS MANY /hpf
[2018-05-08 15:20] LABS: SQUAMOUS EPITHIAL 4 /hpf (0-5); URINE BACTERIA RARE (<OCC); URINE BILIRUBIN NEGATIVE (NEGATIVE); URINE BLOOD 3+ (NEGATIVE); URINE CLARITY Hazy (Clear); URINE COLOR Yellow (YELLOW); URINE GLUCOSE (UA) 3+ mg/dL (Normal); URINE LEUKOCYTE ESTERASE 3+ Leu/uL (Negative); URINE PROTEIN 1+ mg/dL (NEGATIVE)
--- NOTE | 2018-05-08 16:52 | CP.PCM.CON ---
History of Present Illness - History of Present Illness History of Present Illness: reason for consultation: status post tracheostomy 68 y/o male brought to the ED from skilled nursing due to change in mental status and agitation. Patient is nonverbal at baseline, with tracheostomy in place. CAT scan of the chest done consistent with bibasilar infiltrate, no fever. Patient has past medical history of type 2 dm, hypertension, cva, s/p cabg ( 8yrs ago), hyperlipidemia who was admitted last time on 01/06/18 after being found unresponsive by daughter. Patient subsequently had a witnessed seizure while in the hospital and was transferred to the ICU for further monitoring. While in the ICU patient was extubated and downgraded to the floors. While on the floors, patient desat low 80s, reintubated for acute respiratory failure. Brought back to the ICU. after patient' failed multiple attempts to wean off ventilator, had trach done and was transferred to LTAC. PMHx: CAD s/p CABG, multiple CVA, PVD, DM, HTN PSHx: CABG 15 years ago Allergies: NKA Social: Non-smoker. No drug use. Family Hx: No history of seizure disorder in the family. Review of Systems - Review of Systems Systems not reviewed;Unavailable: Altered Mental Status Past Patient History - Infectious Disease Hx of Infectious Diseases: None - Past Medical History & Family History Past Medical History?: Yes - Past Social History Smoking Status: Never Smoked - CARDIAC Hx Hypercholesterolemia: Yes Hx Hypertension: Yes - PULMONARY Hx Respiratory Disorders: Yes Other/Comment: s o b on exertion - NEUROLOGICAL HX Cerebrovascular Accident: Yes - HEENT Hx HEENT Problems: Yes Hx Cataracts: Yes (bilateral cat ext with iol) - RENAL Hx Chronic Kidney Disease: No - ENDOCRINE/METABOLIC Hx Diabetes Mellitus Type 2: Yes - HEMATOLOGICAL/ONCOLOGICAL Hx Blood Disorders: No - INTEGUMENTARY Hx Dermatological Problems: Yes Other/Comment: small ulcers both great toes - MUSCULOSKELETAL/RHEUMATOLOGICAL Hx Musculoskeletal Disorders: No Hx Falls: Yes - GASTROINTESTINAL Hx Gastrointestinal Disorders: No - GENITOURINARY/GYNECOLOGICAL Hx Genitourinary Disorders: No - PSYCHIATRIC Hx Substance Use: No - SURGICAL HISTORY Hx Coronary Artery Bypass Graft: Yes (8 yrs ago) - ANESTHESIA Hx Anesthesia: Yes Hx Anesthesia Reactions: No Hx Malignant Hyperthermia: No Meds Allergies/Adverse Reactions: Allergies Allergy/AdvReac Type Severity Reaction Status Date / Time No Known Allergies Allergy Verified 05/07/18 20:16 - Medications Medications: Current Medications Apixaban (Eliquis) 5 mg PO BID [facility] Aspirin (Aspirin Chewable) 81 mg GT DAILY [facility] Last Admin: 05/08/18 10:38 Dose: 81 mg Carvedilol (Coreg) 12.5 mg GT BID [facility] Last Admin: 05/08/18 10:39 Dose: 12.5 mg Ferrous Sulfate (Feosol Liq) 300 mg PO DAILY [facility] Last Admin: 05/08/18 10:39 Dose: 300 mg Piperacillin Sod/Tazobactam Sod (Zosyn 3.375 Gm Iv Premix) 3.375 gm in 50 mls @ 100 mls/hr IVPB Q6H [facility] PRN Reason: Protocol Last Admin: 05/08/18 10:37 Dose: 100 mls/hr Insulin Aspart (Novolog) 0 unit SC ACHS [facility] PRN Reason: Protocol Last Admin: 05/08/18 12:30 Dose: 4 u Insulin Detemir (Levemir) 40 unit SC Q12 [facility] Last Admin: 05/08/18 10:38 Dose: 40 u Levetiracetam (Keppra) 500 mg GT Q12H [facility] Last Admin: 05/08/18 10:39 Dose: 500 mg Lorazepam (Ativan) 1 mg GT BID [facility] Last Admin: 05/08/18 10:39 Dose: 1 mg Losartan Potassium (Cozaar) 50 mg GT DAILY [facility] Last Admin: 05/08/18 10:38 Dose: 50 mg Magnesium Hydroxide (Milk Of Magnesia) 30 ml GT Q24H PRN PRN Reason: Constipation Multivitamins/Vitamin C (Multi-Delyn Liquid) 5 ml GT DAILY [facility] Last Admin: 05/08/18 10:39 Dose: 5 ml Pantoprazole Sodium (Protonix Susp) 40 mg PEG 1000 [facility] Last Admin: 05/08/18 10:39 Dose: 40 mg Tamsulosin HCl (Flomax) 0.4 mg PEG DAILY [facility] Last Admin: 05/08/18 10:39 Dose: 0.4 mg Valproate Sodium (Depakene Oral Soln) 500 mg GT Q12H [facility] Last Admin: 05/08/18 10:40 Dose: 500 mg Zinc Sulfate (Zinc Sulfate 220 Mg Cap) 220 mg GT DAILY [facility] Last Admin: 05/08/18 10:39 Dose: 220 mg Physical Exam - Head Exam Head Exam: ATRAUMATIC, NORMOCEPHALIC - Eye Exam Eye Exam: Normal appearance - ENT Exam ENT Exam: Mucous Membranes Moist - Respiratory Exam Respiratory Exam: Clear to Auscultation Bilateral - Cardiovascular Exam Cardiovascular Exam: REGULAR RHYTHM Results - Vital Signs Recent Vital Signs: Last Vital Signs Temp 99.4 F 05/08/18 15:21 Pulse 96 H 05/08/18 15:21 Resp 18 05/08/18 15:21 BP 159/99 H 05/08/18 15:21 Pulse Ox 98 05/08/18 15:21 - Labs Result Diagrams: 05/09/18 08:08 05/09/18 08:08 Labs: Laboratory Results - last 24 hr 05/07/18 05/07/18 05/07/18 20:30 20:52 20:52 WBC 7.3 RBC 3.84 L Hgb 11.7 L D Hct 35.6 MCV 92.7 D MCH 30.4 MCHC 32.8 L RDW 13.9 Plt Count 288 D MPV 10.2 Neut % (Auto) 68.4 Lymph % (Auto) 21.9 Mcculloch % (Auto) 7.6 Eos % (Auto) 1.8 Baso % (Auto) 0.3 Neut # (Auto) 5.0 Lymph # (Auto) 1.6 [place]ulloch # (Auto) 0.6 Eos # (Auto) 0.1 Baso # (Auto) 0.0 PT 12.9 H INR 1.2 pO2 VBG pH VBG pCO2 VBG HCO3 VBG Total CO2 VBG O2 Sat (Calc) VBG Base Excess VBG Potassium Glucose Lactate Crit Value Called To Crit Value Called By Crit Value Read Back Blood Gas Notified Time Sodium Potassium Chloride Carbon Dioxide Anion Gap BUN Creatinine Est GFR ( Amer) Est GFR (Non-Af Amer) POC Glucose (mg/dL) 111 H Random Glucose Calcium Total Bilirubin AST ALT Alkaline Phosphatase Total Protein Albumin Globulin Albumin/Globulin Ratio Lipase Venous Blood Potassium Urine Color Urine Clarity Urine pH Ur Specific Kimberly Urine Protein Urine Glucose (UA) Urine Ketones Urine Blood Urine Nitrate Urine Bilirubin Urine Urobilinogen Ur Leukocyte Esterase Urine WBC (Auto) Urine RBC (Auto) Urine WBC Clumps (Auto) Ur Squamous Epith Cells Urine Bacteria 05/07/18 05/07/18 05/08/18 20:52 20:53 02:16 WBC RBC Hgb Hct MCV MCH MCHC RDW Plt Count MPV Neut % (Auto) Lymph % (Auto) [place]ull[place] % (Auto) Eos % (Auto) Baso % (Auto) Neut # (Auto) Lymph # (Auto) [place]ulloch # (Auto) Eos # (Auto) Baso # (Auto) PT INR pO2 25 L VBG pH 7.38 VBG pCO2 68 H* VBG HCO3 32.8 VBG Total CO2 42.3 H VBG O2 Sat (Calc) 42.1 VBG Base Excess 12.0 H VBG Potassium 4.4 Glucose 98 Lactate 1.7 Crit Value Called To Dr. coleman Crit Value Called By [facility] rt Crit Value Read Back Y Blood Gas Notified Time 2056 Sodium 145 142.0 Potassium 4.7 Chloride 96 L 103.0 Carbon Dioxide 37 H Anion Gap 17 BUN 52 H Creatinine 1.0 Est GFR ( Amer) > 60 Est GFR (Non-Af Amer) > 60 POC Glucose (mg/dL) 192 H Random Glucose 105 Calcium 9.4 Total Bilirubin 0.6 AST 23 ALT 23 Alkaline Phosphatase 110 Total Protein 7.7 Albumin 4.0 Globulin 3.7 Albumin/Globulin Ratio 1.1 Lipase 68 Venous Blood Potassium 4.4 Urine Color Urine Clarity Urine pH Ur Specific Kimberly Urine Protein Urine Glucose (UA) Urine Ketones Urine Blood Urine Nitrate Urine Bilirubin Urine Urobilinogen Ur Leukocyte Esterase Urine WBC (Auto) Urine RBC (Auto) Urine WBC Clumps (Auto) Ur Squamous Epith Cells Urine Bacteria 05/08/18 05/08/18 05/08/18 06:22 11:41 12:32 WBC RBC Hgb Hct MCV MCH MCHC RDW Plt Count MPV Neut % (Auto) Lymph % (Auto) [place] % (Auto) Eos % (Auto) Baso % (Auto) Neut # (Auto) Lymph # (Auto) [place]och # (Auto) Eos # (Auto) Baso # (Auto) PT INR pO2 VBG pH VBG pCO2 VBG HCO3 VBG Total CO2 VBG O2 Sat (Calc) VBG Base Excess VBG Potassium Glucose Lactate Crit Value Called To Crit Value Called By Crit Value Read Back Blood Gas Notified Time Sodium Potassium Chloride Carbon Dioxide Anion Gap BUN Creatinine Est GFR ( Amer) Est GFR (Non-Af Amer) POC Glucose (mg/dL) 253 H 309 H Random Glucose Calcium Total Bilirubin AST ALT Alkaline Phosphatase Total Protein Albumin Globulin Albumin/Globulin Ratio Lipase Venous Blood Potassium Urine Color Yellow Urine Clarity Hazy Urine pH 6.0 Ur Specific Kimberly 1.012 Urine Protein 2+ H Urine Glucose (UA) 3+ H Urine Ketones Trace Urine Blood 1+ H Urine Nitrate Negative Urine Bilirubin Negative Urine Urobilinogen Normal Ur Leukocyte Esterase 3+ H Urine WBC (Auto) 846 H Urine RBC (Auto) 14 H Urine WBC Clumps (Auto) Many H Ur Squamous Epith Cells 1 Urine Bacteria 05/08/18 05/08/18 15:00 16:24 WBC RBC Hgb Hct MCV MCH MCHC RDW Plt Count MPV Neut % (Auto) Lymph % (Auto) [place] % (Auto) Eos % (Auto) Baso % (Auto) Neut # (Auto) Lymph # (Auto) [place] # (Auto) Eos # (Auto) Baso # (Auto) PT INR pO2 VBG pH VBG pCO2 VBG HCO3 VBG Total CO2 VBG O2 Sat (Calc) VBG Base Excess VBG Potassium Glucose Lactate Crit Value Called To Crit Value Called By Crit Value Read Back Blood Gas Notified Time Sodium Potassium Chloride Carbon Dioxide Anion Gap BUN Creatinine Est GFR ( Amer) Est GFR (Non-Af Amer) POC Glucose (mg/dL) 254 H Random Glucose Calcium Total Bilirubin AST ALT Alkaline Phosphatase Total Protein Albumin Globulin Albumin/Globulin Ratio Lipase Venous Blood Potassium Urine Color Yellow Urine Clarity Hazy Urine pH 6.0 Ur Specific Kimberly 1.015 Urine Protein 1+ H Urine Glucose (UA) 3+ H Urine Ketones Negative Urine Blood 3+ H Urine Nitrate Negative Urine Bilirubin Negative Urine Urobilinogen 2.0 Ur Leukocyte Esterase 3+ H Urine WBC (Auto) 154 H Urine RBC (Auto) 264 H Urine WBC Clumps (Auto) Ur Squamous Epith Cells 4 Urine Bacteria Rare Assessment & Plan (1) Status post tracheostomy Status: Acute Comment: continue IV antibiotics. Tracheal aspirate for culture and sensitivity. Nebulizer treatment. Trach care/pulmonary toilet (2) COPD (chronic obstructive pulmonary disease) Status: Acute
[2018-05-09] MEDS: Piperacill/Tazo 3.375gm in Dex 3.375 GM/50 ML BAG IVPB SCH ×4 (04:28→21:26)
--- NOTE | 2018-05-09 07:55 | CP.PCM.PN ---
Subjective - Date & Time of Evaluation Date of Evaluation: 05/08/18 Time of Evaluation: 20:00 - Subjective Subjective: patient seen and examined Objective - Vital Signs/Intake and Output Vital Signs (last 24 hours): Temp Pulse Resp BP Pulse Ox 98.5 F 79 20 148/71 98 05/08/18 23:30 05/08/18 23:30 05/08/18 23:30 05/08/18 23:30 05/08/18 23:30 Intake and Output: 05/09/18 05/09/18 06:59 18:59 Intake Total 1570 Output Total 1400 Balance 170 - Medications Medications: Current Medications Apixaban (Eliquis) 5 mg PO BID [facility] Last Admin: 05/08/18 18:08 Dose: 5 mg Aspirin (Aspirin Chewable) 81 mg GT DAILY [facility] Last Admin: 05/08/18 10:38 Dose: 81 mg Carvedilol (Coreg) 12.5 mg GT BID [facility] Last Admin: 05/08/18 18:08 Dose: 12.5 mg Ferrous Sulfate (Feosol Liq) 300 mg PO DAILY [facility] Last Admin: 05/08/18 10:39 Dose: 300 mg Piperacillin Sod/Tazobactam Sod (Zosyn 3.375 Gm Iv Premix) 3.375 gm in 50 mls @ 100 mls/hr IVPB Q6H [facility] PRN Reason: Protocol Last Admin: 05/09/18 04:28 Dose: 100 mls/hr Insulin Aspart (Novolog) 0 unit SC ACHS [facility] PRN Reason: Protocol Last Admin: 05/08/18 21:39 Dose: Not Given Insulin Detemir (Levemir) 40 unit SC Q12 [facility] Last Admin: 05/08/18 21:38 Dose: Not Given Levetiracetam (Keppra) 500 mg GT Q12H [facility] Last Admin: 05/08/18 21:38 Dose: 500 mg Lorazepam (Ativan) 1 mg GT BID [facility] Last Admin: 05/08/18 18:08 Dose: 1 mg Losartan Potassium (Cozaar) 50 mg GT DAILY [facility] Last Admin: 05/08/18 10:38 Dose: 50 mg Magnesium Hydroxide (Milk Of Magnesia) 30 ml GT Q24H PRN PRN Reason: Constipation Multivitamins/Vitamin C (Multi-Delyn Liquid) 5 ml GT DAILY [facility] Last Admin: 05/08/18 10:39 Dose: 5 ml Pantoprazole Sodium (Protonix Susp) 40 mg PEG 1000 [facility] Last Admin: 05/08/18 10:39 Dose: 40 mg Tamsulosin HCl (Flomax) 0.4 mg PEG DAILY [facility] Last Admin: 05/08/18 10:39 Dose: 0.4 mg Valproate Sodium (Depakene Oral Soln) 500 mg GT Q12H [facility] Last Admin: 05/08/18 21:38 Dose: 500 mg Zinc Sulfate (Zinc Sulfate 220 Mg Cap) 220 mg GT DAILY [facility] Last Admin: 05/08/18 10:39 Dose: 220 mg Zolpidem Tartrate (Ambien) 5 mg PO HS PRN PRN Reason: Insomnia Last Admin: 05/08/18 21:38 Dose: 5 mg - Labs Labs: 05/07/18 20:52 05/07/18 20:52 PT 12.9 SECONDS (9.7-12.2) H 05/07/18 20:52 INR 1.2 05/07/18 20:52
[2018-05-09] MEDS: (Novolog) Insulin Aspart, Recombinant 100 u/ml 10 ml vial SC SCH ×4 (08:30→21:27)
[2018-05-09 08:34] LABS: BASO % 0.2 % (0.0-2.0); EOS # 0.2 K/uL (0.0-0.7); EOS % 2.6 % (0.0-4.0); LYMPH # 1.8 K/uL (1.0-4.3); LYMPH % 28.3 % (20.0-40.0); MEAN CELL VOLUME 93.7 fL (80.0-94.0); MEAN CORPUSCULAR HEMOGLOBIN 30.4 pg (27.0-31.0); MEAN CORPUSCULAR HGB CONC 32.5 g/dL (33.0-37.0); MEAN PLATELET VOLUME 11.3 fL (7.2-11.7); MONO # 0.6 K/uL (0.0-0.8); MONO % 10.3 % (0.0-10.0); NEUT # 3.7 K/uL (1.8-7.0); NEUT % 58.6 % (50.0-75.0); RBC 3.11 Mil/uL (4.40-5.90); RED CELL DISTRIBUTION WIDTH 13.6 % (11.5-14.5); WHITE BLOOD COUNT 6.3 K/uL (4.8-10.8)
[2018-05-09 08:35] LABS: BLOOD UREA NITROGEN 35 mg/dL (9-20); CALCIUM 8.6 mg/dl (8.6-10.4); GFR AFRICAN-AMERICAN > 60; GFR NON-AFRICAN AMERICAN > 60
[2018-05-09 08:41] LABS: HEMOGLOBIN 9.5 g/dL (12.0-18.0)
[2018-05-09 10:04] LABS: URINE BACTERIA OCC (<OCC); URINE BILIRUBIN NEGATIVE (NEGATIVE); URINE BLOOD 1+ (NEGATIVE); URINE CLARITY Hazy (Clear); URINE COLOR Yellow (YELLOW); URINE GLUCOSE (UA) 1+ mg/dL (Normal); URINE LEUKOCYTE ESTERASE 3+ Leu/uL (Negative); URINE PROTEIN 2+ mg/dL (NEGATIVE); URINE UROBILINOGEN NORMAL mg/dL (0.2-1.0)
[2018-05-09] MEDS: levETIRAcetam 100 mg/ml (5ml) Oral Syringe GT SCH ×2 (10:05→21:25)
[2018-05-09] MEDS: Pantoprazole 40 mg Susp UD PEG SCH (10:06)
[2018-05-09] MEDS: Ferrous Sulfate 300 mg/5 mL Liq UD PO SCH (10:06)
[2018-05-09] MEDS: Multiple Vitamins Oral Solution GT SCH (10:06)
[2018-05-09] MEDS: Insulin Detemir 100 units/ml Vial (Levemir) SC SCH (10:07)
[2018-05-09] MEDS: Valproic Acid 250 mg/5 ml UD Cup GT SCH ×2 (11:30→21:25)
--- NOTE | 2018-05-09 16:03 | CP.PCM.PN ---
Subjective - Date & Time of Evaluation Date of Evaluation: 05/09/18 Time of Evaluation: 12:20 - Subjective Subjective: patient seen and examined being Treated for pneumonia minimal secretions from tracheostomy Afebrile Objective - Vital Signs/Intake and Output Vital Signs (last 24 hours): Temp Pulse Resp BP Pulse Ox 98.6 F 83 20 127/67 97 05/09/18 08:24 05/09/18 08:24 05/09/18 08:24 05/09/18 08:24 05/09/18 08:24 Intake and Output: 05/09/18 05/09/18 06:59 18:59 Intake Total 1570 Output Total 1400 Balance 170 - Medications Medications: Current Medications Apixaban (Eliquis) 5 mg PO BID [facility] Last Admin: 05/09/18 10:06 Dose: 5 mg Aspirin (Aspirin Chewable) 81 mg GT DAILY [facility] Last Admin: 05/09/18 10:06 Dose: 81 mg Carvedilol (Coreg) 12.5 mg GT BID [facility] Last Admin: 05/09/18 10:05 Dose: 12.5 mg Ferrous Sulfate (Feosol Liq) 300 mg PO DAILY [facility] Last Admin: 05/09/18 10:06 Dose: 300 mg Piperacillin Sod/Tazobactam Sod (Zosyn 3.375 Gm Iv Premix) 3.375 gm in 50 mls @ 100 mls/hr IVPB Q6H [facility] PRN Reason: Protocol Last Admin: 05/09/18 10:08 Dose: 100 mls/hr Insulin Aspart (Novolog) 0 unit SC ACHS [facility] PRN Reason: Protocol Last Admin: 05/09/18 12:22 Dose: 2 u Insulin Detemir (Levemir) 40 unit SC Q12 [facility] Last Admin: 05/09/18 10:07 Dose: 40 u Levetiracetam (Keppra) 500 mg GT Q12H [facility] Last Admin: 05/09/18 10:05 Dose: 500 mg Lorazepam (Ativan) 1 mg GT BID [facility] Last Admin: 05/09/18 10:05 Dose: 1 mg Losartan Potassium (Cozaar) 50 mg GT DAILY [facility] Last Admin: 05/09/18 10:06 Dose: 50 mg Magnesium Hydroxide (Milk Of Magnesia) 30 ml GT Q24H PRN PRN Reason: Constipation Multivitamins/Vitamin C (Multi-Delyn Liquid) 5 ml GT DAILY [facility] Last Admin: 05/09/18 10:06 Dose: 5 ml Pantoprazole Sodium (Protonix Susp) 40 mg PEG 1000 [facility] Last Admin: 05/09/18 10:06 Dose: 40 mg Tamsulosin HCl (Flomax) 0.4 mg PEG DAILY [facility] Last Admin: 05/09/18 10:05 Dose: 0.4 mg Valproate Sodium (Depakene Oral Soln) 500 mg GT Q12H [facility] Last Admin: 05/09/18 11:30 Dose: 500 mg Zinc Sulfate (Zinc Sulfate 220 Mg Cap) 220 mg GT DAILY [facility] Last Admin: 05/09/18 10:05 Dose: 220 mg Zolpidem Tartrate (Ambien) 5 mg PO HS PRN PRN Reason: Insomnia Last Admin: 05/08/18 21:38 Dose: 5 mg - Labs Labs: 05/09/18 08:08 05/09/18 08:08 PT 12.9 SECONDS (9.7-12.2) H 05/07/18 20:52 INR 1.2 05/07/18 20:52 - Head Exam Head Exam: ATRAUMATIC - ENT Exam ENT Exam: Mucous Membranes Moist - Respiratory Exam Respiratory Exam: Decreased Breath Sounds - Cardiovascular Exam Cardiovascular Exam: REGULAR RHYTHM - GI/Abdominal Exam GI & Abdominal Exam: Soft - Extremities Exam Extremities Exam: Normal Inspection Assessment and Plan (1) Status post tracheostomy Assessment & Plan: continue IV antibiotics Follow-up culture and sensitivity Status: Acute (2) COPD (chronic obstructive pulmonary disease) Status: Acute
--- NOTE | 2018-05-09 23:52 | CP.PCM.PN ---
Subjective - Date & Time of Evaluation Date of Evaluation: 05/09/18 Time of Evaluation: 19:00 - Subjective Subjective: patient seen and examined being Treated for pneumonia minimal secretions from tracheostomy Afebrile Objective - Vital Signs/Intake and Output Vital Signs (last 24 hours): Temp Pulse Resp BP Pulse Ox 98.1 F 80 22 165/74 H 99 05/09/18 15:29 05/09/18 15:29 05/09/18 15:29 05/09/18 15:29 05/09/18 15:29 Intake and Output: 05/09/18 05/10/18 18:59 06:59 Intake Total 700 530 Output Total 300 Balance 700 230 - Medications Medications: Current Medications Apixaban (Eliquis) 5 mg PO BID [facility] Last Admin: 05/09/18 17:51 Dose: 5 mg Aspirin (Aspirin Chewable) 81 mg GT DAILY [facility] Last Admin: 05/09/18 10:06 Dose: 81 mg Carvedilol (Coreg) 12.5 mg GT BID [facility] Last Admin: 05/09/18 17:51 Dose: 12.5 mg Ferrous Sulfate (Feosol Liq) 300 mg PO DAILY [facility] Last Admin: 05/09/18 10:06 Dose: 300 mg Piperacillin Sod/Tazobactam Sod (Zosyn 3.375 Gm Iv Premix) 3.375 gm in 50 mls @ 100 mls/hr IVPB Q6H [facility] PRN Reason: Protocol Last Admin: 05/09/18 21:26 Dose: 100 mls/hr Insulin Aspart (Novolog) 0 unit SC ACHS [facility] PRN Reason: Protocol Last Admin: 05/09/18 21:27 Dose: Not Given Insulin Detemir (Levemir) 40 unit SC Q12 [facility] Last Admin: 05/09/18 10:07 Dose: 40 u Levetiracetam (Keppra) 500 mg GT Q12H [facility] Last Admin: 05/09/18 21:25 Dose: 500 mg Lorazepam (Ativan) 1 mg GT BID [facility] Last Admin: 05/09/18 17:51 Dose: 1 mg Losartan Potassium (Cozaar) 50 mg GT DAILY [facility] Last Admin: 05/09/18 10:06 Dose: 50 mg Magnesium Hydroxide (Milk Of Magnesia) 30 ml GT Q24H PRN PRN Reason: Constipation Multivitamins/Vitamin C (Multi-Delyn Liquid) 5 ml GT DAILY [facility] Last Admin: 05/09/18 10:06 Dose: 5 ml Pantoprazole Sodium (Protonix Susp) 40 mg PEG 1000 [facility] Last Admin: 05/09/18 10:06 Dose: 40 mg Tamsulosin HCl (Flomax) 0.4 mg PEG DAILY [facility] Last Admin: 05/09/18 10:05 Dose: 0.4 mg Valproate Sodium (Depakene Oral Soln) 500 mg GT Q12H [facility] Last Admin: 05/09/18 21:25 Dose: 500 mg Zinc Sulfate (Zinc Sulfate 220 Mg Cap) 220 mg GT DAILY [facility] Last Admin: 05/09/18 10:05 Dose: 220 mg Zolpidem Tartrate (Ambien) 5 mg PO HS PRN PRN Reason: Insomnia Last Admin: 05/09/18 21:26 Dose: 5 mg - Labs Labs: 05/09/18 08:08 05/09/18 08:08 PT 12.9 SECONDS (9.7-12.2) H 05/07/18 20:52 INR 1.2 05/07/18 20:52
[2018-05-10] MEDS: Piperacill/Tazo 3.375gm in Dex 3.375 GM/50 ML BAG IVPB SCH ×4 (04:01→22:00)
--- NOTE | 2018-05-10 05:33 | CARD ---
APPROVED REPORT EKG Measurement Heart [id number] NM [id number] [id number] <Conclusion> Normal sinus rhythm Moderate voltage criteria for LVH, may be normal variant Borderline ECG
[2018-05-10] MEDS: (Novolog) Insulin Aspart, Recombinant 100 u/ml 10 ml vial SC SCH ×4 (08:25→22:00)
[2018-05-10] MEDS: Valproic Acid 250 mg/5 ml UD Cup GT SCH ×2 (09:45→22:18)
[2018-05-10] MEDS: levETIRAcetam 100 mg/ml (5ml) Oral Syringe GT SCH ×2 (10:30→22:18)
[2018-05-10] MEDS: Pantoprazole 40 mg Susp UD PEG SCH (10:40)
[2018-05-10] MEDS: Insulin Detemir 100 units/ml Vial (Levemir) SC SCH ×2 (10:50→22:01)
[2018-05-10] MEDS: Multiple Vitamins Oral Solution GT SCH (10:50)
[2018-05-10] MEDS: Vitamins A & D Oint UD Foilpak TOP SCH ×2 (10:59→17:32)
[2018-05-10] MEDS: Ferrous Sulfate 300 mg/5 mL Liq UD PO SCH (10:59)
--- NOTE | 2018-05-10 17:40 | CP.PCM.PN ---
Subjective - Date & Time of Evaluation Date of Evaluation: 05/10/18 Time of Evaluation: 11:40 - Subjective Subjective: patient seen and examined no respiratory distress Afebrile Patient is awake Objective - Vital Signs/Intake and Output Vital Signs (last 24 hours): Temp Pulse Resp BP Pulse Ox 98.2 F 76 20 155/71 H 98 05/10/18 16:35 05/10/18 16:35 05/10/18 16:35 05/10/18 16:35 05/10/18 16:35 Intake and Output: 05/10/18 05/10/18 06:59 18:59 Intake Total 1210 Output Total 700 Balance 510 - Medications Medications: Current Medications Apixaban (Eliquis) 5 mg PO BID [facility] Last Admin: 05/10/18 17:32 Dose: 5 mg Aspirin (Aspirin Chewable) 81 mg GT DAILY [facility] Last Admin: 05/10/18 10:50 Dose: 81 mg Carvedilol (Coreg) 12.5 mg GT BID [facility] Last Admin: 05/10/18 17:32 Dose: 12.5 mg Ferrous Sulfate (Feosol Liq) 300 mg PO DAILY [facility] Last Admin: 05/10/18 10:59 Dose: 300 mg Piperacillin Sod/Tazobactam Sod (Zosyn 3.375 Gm Iv Premix) 3.375 gm in 50 mls @ 100 mls/hr IVPB Q6H [facility] PRN Reason: Protocol Last Admin: 05/10/18 16:33 Dose: 100 mls/hr Insulin Aspart (Novolog) 0 unit SC ACHS [facility] PRN Reason: Protocol Last Admin: 05/10/18 12:50 Dose: 2 u Insulin Detemir (Levemir) 40 unit SC Q12 [facility] Last Admin: 05/10/18 10:50 Dose: 4 u Levetiracetam (Keppra) 500 mg GT Q12H [facility] Last Admin: 05/10/18 10:30 Dose: 500 mg Lorazepam (Ativan) 1 mg GT BID [facility] Last Admin: 05/10/18 17:32 Dose: 1 mg Losartan Potassium (Cozaar) 50 mg GT DAILY [facility] Last Admin: 05/10/18 10:50 Dose: 50 mg Magnesium Hydroxide (Milk Of Magnesia) 30 ml GT Q24H PRN PRN Reason: Constipation Multivitamins/Vitamin C (Multi-Delyn Liquid) 5 ml GT DAILY [facility] Last Admin: 05/10/18 10:50 Dose: 5 ml Pantoprazole Sodium (Protonix Susp) 40 mg PEG 1000 [facility] Last Admin: 05/10/18 10:40 Dose: 40 mg Tamsulosin HCl (Flomax) 0.4 mg PEG DAILY [facility] Last Admin: 05/10/18 10:50 Dose: 0.4 mg Valproate Sodium (Depakene Oral Soln) 500 mg GT Q12H [facility] Last Admin: 05/10/18 09:45 Dose: 500 mg Vitamin A (Vitamin A & D Oint Ud Foilpak) 6 ea TOP BID [facility] Last Admin: 05/10/18 17:32 Dose: 6 ea Zinc Sulfate (Zinc Sulfate 220 Mg Cap) 220 mg GT DAILY [facility] Last Admin: 05/10/18 10:55 Dose: 220 mg Zolpidem Tartrate (Ambien) 5 mg PO HS PRN PRN Reason: Insomnia Last Admin: 05/09/18 21:26 Dose: 5 mg - Labs Labs: 05/09/18 08:08 05/09/18 08:08 PT 12.9 SECONDS (9.7-12.2) H 05/07/18 20:52 INR 1.2 05/07/18 20:52 - Head Exam Head Exam: ATRAUMATIC, NORMOCEPHALIC - Respiratory Exam Respiratory Exam: Decreased Breath Sounds Assessment and Plan (1) Status post tracheostomy Assessment & Plan: continue nebulizer treatment trach collar Continue antibiotics Followup chest x-ray Clinically much improved Status: Acute (2) COPD (chronic obstructive pulmonary disease) Status: Acute
[2018-05-10 23:54] LABS: SQUAMOUS EPITHIAL 2 /hpf (0-5); URINE BACTERIA FEW (<OCC); URINE BILIRUBIN NEGATIVE (NEGATIVE); URINE BLOOD 1+ (NEGATIVE); URINE CLARITY Hazy (Clear); URINE COLOR Yellow (YELLOW); URINE GLUCOSE (UA) 3+ mg/dL (Normal); URINE LEUKOCYTE ESTERASE 3+ Leu/uL (Negative); URINE PROTEIN 2+ mg/dL (NEGATIVE)
[2018-05-11] MEDS: Piperacill/Tazo 3.375gm in Dex 3.375 GM/50 ML BAG IVPB SCH ×4 (04:30→21:58)
[2018-05-11] MEDS: (Novolog) Insulin Aspart, Recombinant 100 u/ml 10 ml vial SC SCH ×4 (08:16→22:01)
[2018-05-11 09:51] LABS: ARTERIAL BLOOD GAS HCO3 32.6 mmol/L (21-28); ARTERIAL BLOOD GAS HEMOGLOBIN 9.6 g/dL (11.7-17.4); ARTERIAL BLOOD GAS O2 SAT 99.7 % (95-98); ARTERIAL BLOOD GAS PCO2 55 mm/Hg (35-45); ARTERIAL BLOOD GAS PH 7.42 (7.35-7.45); ARTERIAL BLOOD GAS PO2 130 mm/Hg (80-100); ARTERIAL BLOOD GAS TCO2 37.4 mmol/L (22-28)
[2018-05-11] MEDS: levETIRAcetam 100 mg/ml (5ml) Oral Syringe GT SCH ×2 (10:10→21:57)
[2018-05-11] MEDS: Pantoprazole 40 mg Susp UD PEG SCH (10:10)
[2018-05-11] MEDS: Multiple Vitamins Oral Solution GT SCH (10:10)
[2018-05-11] MEDS: Vitamins A & D Oint UD Foilpak TOP SCH ×2 (10:11→18:13)
[2018-05-11] MEDS: Ferrous Sulfate 300 mg/5 mL Liq UD PO SCH (10:12)
[2018-05-11] MEDS: Insulin Detemir 100 units/ml Vial (Levemir) SC SCH ×2 (10:13→21:57)
[2018-05-11] MEDS: Valproic Acid 250 mg/5 ml UD Cup GT SCH ×2 (10:21→21:57)
--- NOTE | 2018-05-11 10:46 | CP.PCM.PN ---
Subjective - Date & Time of Evaluation Date of Evaluation: 05/10/18 Time of Evaluation: 19:50 - Subjective Subjective: The patient seen and examined Objective - Vital Signs/Intake and Output Vital Signs (last 24 hours): Temp Pulse Resp BP Pulse Ox 98.5 F 73 20 124/71 100 05/11/18 10:08 05/11/18 10:08 05/11/18 10:08 05/11/18 10:08 05/11/18 10:08 Intake and Output: 05/11/18 05/11/18 06:59 18:59 Intake Total 1430 Output Total 600 Balance 830 - Medications Medications: Current Medications Apixaban (Eliquis) 5 mg PO BID [facility] Last Admin: 05/11/18 10:10 Dose: 5 mg Aspirin (Aspirin Chewable) 81 mg GT DAILY [facility] Last Admin: 05/11/18 10:11 Dose: 81 mg Carvedilol (Coreg) 12.5 mg GT BID [facility] Last Admin: 05/11/18 10:10 Dose: 12.5 mg Ferrous Sulfate (Feosol Liq) 300 mg PO DAILY [facility] Last Admin: 05/11/18 10:12 Dose: 300 mg Piperacillin Sod/Tazobactam Sod (Zosyn 3.375 Gm Iv Premix) 3.375 gm in 50 mls @ 100 mls/hr IVPB Q6H [facility] PRN Reason: Protocol Last Admin: 05/11/18 10:16 Dose: 100 mls/hr Insulin Aspart (Novolog) 0 unit SC ACHS [facility] PRN Reason: Protocol Last Admin: 05/11/18 08:16 Dose: 3 u Insulin Detemir (Levemir) 34 unit SC Q12 [facility] Last Admin: 05/11/18 10:13 Dose: 34 units Levetiracetam (Keppra) 500 mg GT Q12H [facility] Last Admin: 05/11/18 10:10 Dose: 500 mg Lorazepam (Ativan) 1 mg GT BID [facility] Last Admin: 05/11/18 10:38 Dose: 1 mg Losartan Potassium (Cozaar) 50 mg GT DAILY [facility] Last Admin: 05/11/18 10:10 Dose: 50 mg Magnesium Hydroxide (Milk Of Magnesia) 30 ml GT Q24H PRN PRN Reason: Constipation Multivitamins/Vitamin C (Multi-Delyn Liquid) 5 ml GT DAILY [facility] Last Admin: 05/11/18 10:10 Dose: 5 ml Pantoprazole Sodium (Protonix Susp) 40 mg PEG 1000 [facility] Last Admin: 05/11/18 10:10 Dose: 40 mg Tamsulosin HCl (Flomax) 0.4 mg PEG DAILY [facility] Last Admin: 05/11/18 10:10 Dose: 0.4 mg Valproate Sodium (Depakene Oral Soln) 500 mg GT Q12H [facility] Last Admin: 05/11/18 10:21 Dose: 500 mg Vitamin A (Vitamin A & D Oint Ud Foilpak) 6 ea TOP BID [facility] Last Admin: 05/11/18 10:11 Dose: 6 ea Zinc Sulfate (Zinc Sulfate 220 Mg Cap) 220 mg GT DAILY [facility] Last Admin: 05/11/18 10:10 Dose: 220 mg Zolpidem Tartrate (Ambien) 5 mg PO HS PRN PRN Reason: Insomnia Last Admin: 05/09/18 21:26 Dose: 5 mg - Labs Labs: 05/09/18 08:08 05/09/18 08:08 PT 12.9 SECONDS (9.7-12.2) H 05/07/18 20:52 INR 1.2 05/07/18 20:52
--- NOTE | 2018-05-11 18:14 | CP.PCM.PN ---
Subjective - Date & Time of Evaluation Date of Evaluation: 05/11/18 Time of Evaluation: 19:40 - Subjective Subjective: pt seen and examined at bedside Objective - Vital Signs/Intake and Output Vital Signs (last 24 hours): Temp Pulse Resp BP Pulse Ox 97.5 F L 79 18 144/72 100 05/11/18 15:10 05/11/18 15:10 05/11/18 15:10 05/11/18 15:10 05/11/18 15:10 Intake and Output: 05/11/18 05/11/18 06:59 18:59 Intake Total 1430 680 Output Total 600 800 Balance 830 -120 - Medications Medications: Current Medications Apixaban (Eliquis) 5 mg PO BID [facility] Last Admin: 05/11/18 18:11 Dose: 5 mg Aspirin (Aspirin Chewable) 81 mg GT DAILY [facility] Last Admin: 05/11/18 10:11 Dose: 81 mg Carvedilol (Coreg) 12.5 mg GT BID [facility] Last Admin: 05/11/18 18:11 Dose: 12.5 mg Ferrous Sulfate (Feosol Liq) 300 mg PO DAILY [facility] Last Admin: 05/11/18 10:12 Dose: 300 mg Piperacillin Sod/Tazobactam Sod (Zosyn 3.375 Gm Iv Premix) 3.375 gm in 50 mls @ 100 mls/hr IVPB Q6H [facility] PRN Reason: Protocol Last Admin: 05/11/18 10:16 Dose: 100 mls/hr Insulin Aspart (Novolog) 0 unit SC ACHS [facility] PRN Reason: Protocol Last Admin: 05/11/18 13:32 Dose: 4 u Insulin Detemir (Levemir) 34 unit SC Q12 [facility] Last Admin: 05/11/18 10:13 Dose: 34 units Levetiracetam (Keppra) 500 mg GT Q12H [facility] Last Admin: 05/11/18 10:10 Dose: 500 mg Lorazepam (Ativan) 1 mg GT BID [facility] Last Admin: 05/11/18 17:17 Dose: 1 mg Losartan Potassium (Cozaar) 50 mg GT DAILY [facility] Last Admin: 05/11/18 10:10 Dose: 50 mg Magnesium Hydroxide (Milk Of Magnesia) 30 ml GT Q24H PRN PRN Reason: Constipation Multivitamins/Vitamin C (Multi-Delyn Liquid) 5 ml GT DAILY [facility] Last Admin: 05/11/18 10:10 Dose: 5 ml Pantoprazole Sodium (Protonix Susp) 40 mg PEG 1000 [facility] Last Admin: 05/11/18 10:10 Dose: 40 mg Tamsulosin HCl (Flomax) 0.4 mg PEG DAILY [facility] Last Admin: 05/11/18 10:10 Dose: 0.4 mg Valproate Sodium (Depakene Oral Soln) 500 mg GT Q12H [facility] Last Admin: 05/11/18 10:21 Dose: 500 mg Vitamin A (Vitamin A & D Oint Ud Foilpak) 6 ea TOP BID [facility] Last Admin: 05/11/18 18:13 Dose: 6 ea Zinc Sulfate (Zinc Sulfate 220 Mg Cap) 220 mg GT DAILY [facility] Last Admin: 05/11/18 10:10 Dose: 220 mg Zolpidem Tartrate (Ambien) 5 mg PO HS PRN PRN Reason: Insomnia Last Admin: 05/09/18 21:26 Dose: 5 mg - Labs Labs: 05/09/18 08:08 05/09/18 08:08 PT 12.9 SECONDS (9.7-12.2) H 05/07/18 20:52 INR 1.2 05/07/18 20:52
--- NOTE | 2018-05-11 20:39 | CP.PCM.PN ---
Subjective - Date & Time of Evaluation Date of Evaluation: 05/11/18 Time of Evaluation: 16:50 - Subjective Subjective: patient seen and examined Open eyes to stimuli On trach collar Saturation 99% Tolerating feeding Afebrile Objective - Vital Signs/Intake and Output Vital Signs (last 24 hours): Temp Pulse Resp BP Pulse Ox 97.5 F L 79 18 144/72 100 05/11/18 15:10 05/11/18 15:10 05/11/18 15:10 05/11/18 15:10 05/11/18 15:10 Intake and Output: 05/11/18 05/12/18 18:59 06:59 Intake Total 680 Output Total 800 650 Balance -120 -650 - Medications Medications: Current Medications Apixaban (Eliquis) 5 mg PO BID [facility] Last Admin: 05/11/18 18:11 Dose: 5 mg Aspirin (Aspirin Chewable) 81 mg GT DAILY [facility] Last Admin: 05/11/18 10:11 Dose: 81 mg Carvedilol (Coreg) 12.5 mg GT BID [facility] Last Admin: 05/11/18 18:11 Dose: 12.5 mg Ferrous Sulfate (Feosol Liq) 300 mg PO DAILY [facility] Last Admin: 05/11/18 10:12 Dose: 300 mg Piperacillin Sod/Tazobactam Sod (Zosyn 3.375 Gm Iv Premix) 3.375 gm in 50 mls @ 100 mls/hr IVPB Q6H [facility] PRN Reason: Protocol Last Admin: 05/11/18 18:18 Dose: 100 mls/hr Insulin Aspart (Novolog) 0 unit SC ACHS [facility] PRN Reason: Protocol Last Admin: 05/11/18 18:17 Dose: 4 u Insulin Detemir (Levemir) 34 unit SC Q12 [facility] Last Admin: 05/11/18 10:13 Dose: 34 units Levetiracetam (Keppra) 500 mg GT Q12H [facility] Last Admin: 05/11/18 10:10 Dose: 500 mg Lorazepam (Ativan) 1 mg GT BID [facility] Last Admin: 05/11/18 17:17 Dose: 1 mg Losartan Potassium (Cozaar) 50 mg GT DAILY [facility] Last Admin: 05/11/18 10:10 Dose: 50 mg Magnesium Hydroxide (Milk Of Magnesia) 30 ml GT Q24H PRN PRN Reason: Constipation Multivitamins/Vitamin C (Multi-Delyn Liquid) 5 ml GT DAILY [facility] Last Admin: 05/11/18 10:10 Dose: 5 ml Pantoprazole Sodium (Protonix Susp) 40 mg PEG 1000 [facility] Last Admin: 05/11/18 10:10 Dose: 40 mg Tamsulosin HCl (Flomax) 0.4 mg PEG DAILY [facility] Last Admin: 05/11/18 10:10 Dose: 0.4 mg Valproate Sodium (Depakene Oral Soln) 500 mg GT Q12H [facility] Last Admin: 05/11/18 10:21 Dose: 500 mg Vitamin A (Vitamin A & D Oint Ud Foilpak) 6 ea TOP BID [facility] Last Admin: 05/11/18 18:13 Dose: 6 ea Zinc Sulfate (Zinc Sulfate 220 Mg Cap) 220 mg GT DAILY [facility] Last Admin: 05/11/18 10:10 Dose: 220 mg Zolpidem Tartrate (Ambien) 5 mg PO HS PRN PRN Reason: Insomnia Last Admin: 05/09/18 21:26 Dose: 5 mg - Labs Labs: 05/09/18 08:08 05/09/18 08:08 PT 12.9 SECONDS (9.7-12.2) H 05/07/18 20:52 INR 1.2 05/07/18 20:52 - Head Exam Head Exam: ATRAUMATIC, NORMOCEPHALIC - ENT Exam ENT Exam: Mucous Membranes Moist - Respiratory Exam Respiratory Exam: Decreased Breath Sounds - Cardiovascular Exam Cardiovascular Exam: REGULAR RHYTHM - GI/Abdominal Exam GI & Abdominal Exam: Soft, Normal Bowel Sounds Assessment and Plan (1) Status post tracheostomy Assessment & Plan: Being treated for pneumonia Continue antibiotics Continue nebulizer treatment Pulmonary toilet Status: Acute (2) COPD (chronic obstructive pulmonary disease) Status: Acute
[2018-05-12] MEDS: Piperacill/Tazo 3.375gm in Dex 3.375 GM/50 ML BAG IVPB SCH ×4 (04:19→22:09)
[2018-05-12] MEDS: (Novolog) Insulin Aspart, Recombinant 100 u/ml 10 ml vial SC SCH ×4 (07:32→21:07)
[2018-05-12 08:49] LABS: HEMOGLOBIN 10.5 g/dL (12.0-18.0); MEAN CELL VOLUME 93.7 fL (80.0-94.0); MEAN CORPUSCULAR HEMOGLOBIN 30.6 pg (27.0-31.0); MEAN CORPUSCULAR HGB CONC 32.7 g/dL (33.0-37.0); RBC 3.43 Mil/uL (4.40-5.90); RED CELL DISTRIBUTION WIDTH 13.4 % (11.5-14.5); WHITE BLOOD COUNT 5.7 K/uL (4.8-10.8)
[2018-05-12 09:07] LABS: BLOOD UREA NITROGEN 31 mg/dL (9-20); CALCIUM 8.8 mg/dl (8.6-10.4); GFR AFRICAN-AMERICAN > 60; GFR NON-AFRICAN AMERICAN > 60
[2018-05-12] MEDS: Ferrous Sulfate 300 mg/5 mL Liq UD PO SCH (09:45)
[2018-05-12] MEDS: Vitamins A & D Oint UD Foilpak TOP SCH ×2 (09:46→18:38)
[2018-05-12] MEDS: levETIRAcetam 100 mg/ml (5ml) Oral Syringe GT SCH ×2 (09:46→22:07)
[2018-05-12] MEDS: Pantoprazole 40 mg Susp UD PEG SCH (09:52)
[2018-05-12] MEDS: Multiple Vitamins Oral Solution GT SCH (09:55)
[2018-05-12] MEDS: Valproic Acid 250 mg/5 ml UD Cup GT SCH ×2 (10:30→22:07)
[2018-05-12] MEDS: Insulin Detemir 100 units/ml Vial (Levemir) SC SCH ×2 (10:36→21:08)
[2018-05-12] MEDS ORDERED: Glucagon Recombinant 1 mg Inj IM PRN (16:55)
[2018-05-12] MEDS ORDERED: Dextrose 50% SYRINGE Inj (50 ml) IVP PRN (16:55)
[2018-05-13] MEDS: Piperacill/Tazo 3.375gm in Dex 3.375 GM/50 ML BAG IVPB SCH ×2 (05:25→10:25)
[2018-05-13] MEDS: (Novolog) Insulin Aspart, Recombinant 100 u/ml 10 ml vial SC SCH ×4 (08:30→21:59)
[2018-05-13] MEDS: levETIRAcetam 100 mg/ml (5ml) Oral Syringe GT SCH ×2 (10:30→22:00)
[2018-05-13] MEDS: Insulin Detemir 100 units/ml Vial (Levemir) SC SCH ×2 (10:40→22:00)
[2018-05-13] MEDS: Valproic Acid 250 mg/5 ml UD Cup GT SCH ×2 (10:49→22:00)
[2018-05-13] MEDS: Multiple Vitamins Oral Solution GT SCH (10:50)
[2018-05-13] MEDS: Pantoprazole 40 mg Susp UD PEG SCH (10:50)
[2018-05-13] MEDS: Vitamins A & D Oint UD Foilpak TOP SCH ×2 (10:50→18:25)
[2018-05-13] MEDS: Ferrous Sulfate 300 mg/5 mL Liq UD PO SCH (10:52)
--- NOTE | 2018-05-13 13:57 | RAD ---
HISTORY: pna COMPARISON: 05/07/2018. FINDINGS: LUNGS: There has been interval tracheostomy. There are low lung volumes. There is linear scarring in the mid lungs. PLEURA: Suspect small left pleural effusion, no pneumothorax apparent. CARDIOVASCULAR: There is mild cardiomegaly. Atherosclerotic aortic arch calcifications are present. Status post CABG. OSSEOUS STRUCTURES: No significant abnormalities. VISUALIZED UPPER ABDOMEN: Normal. OTHER FINDINGS: None. IMPRESSION: Cardiomegaly and suspect small left pleural effusion. Interval tracheostomy. No active pulmonary disease.
--- NOTE | 2018-05-13 18:13 | CP.PCM.PN ---
Subjective - Date & Time of Evaluation Date of Evaluation: 05/13/18 Time of Evaluation: 14:55 - Subjective Subjective: The patient seen and examined Developed diarrhea No shortness of breath On trach collar Oral feeding Continue antibiotics Continue nebuliz Objective - Vital Signs/Intake and Output Vital Signs (last 24 hours): Temp Pulse Resp BP Pulse Ox 97.8 F 108 H 20 119/70 96 05/13/18 15:00 05/13/18 15:00 05/13/18 15:00 05/13/18 15:00 05/13/18 15:00 Intake and Output: 05/13/18 05/13/18 06:59 18:59 Intake Total 1560 Output Total 300 600 Balance -300 960 - Medications Medications: Current Medications Apixaban (Eliquis) 5 mg PO BID [facility] Last Admin: 05/13/18 10:50 Dose: 5 mg Aspirin (Aspirin Chewable) 81 mg GT DAILY [facility] Last Admin: 05/13/18 10:50 Dose: 81 mg Carvedilol (Coreg) 12.5 mg GT BID [facility] Last Admin: 05/13/18 10:50 Dose: 12.5 mg Dextrose (Dextrose 50% Inj) 0 ml IVP .STAT PRN; Protocol PRN Reason: Hypoglycemia Protocol Last Admin: 05/12/18 17:37 Dose: 50 ml Ferrous Sulfate (Feosol Liq) 300 mg PO DAILY [facility] Last Admin: 05/13/18 10:52 Dose: 300 mg Glucagon (Glucagen Diagnostic Kit) 0 mg IM .STAT PRN; Protocol PRN Reason: Hypoglycemia Protocol Dextrose (Dextrose 5% In Water 1000 Ml) 1,000 mls @ 0 mls/hr IV .Q0M PRN; Protocol; Per Protocol PRN Reason: Hypoglycemia Protocol Insulin Aspart (Novolog) 0 unit SC ACHS [facility] PRN Reason: Protocol Last Admin: 05/13/18 12:28 Dose: 4 u Insulin Detemir (Levemir) 34 unit SC Q12 [facility] Last Admin: 05/13/18 10:40 Dose: 34 units Levetiracetam (Keppra) 500 mg GT Q12H [facility] Last Admin: 05/13/18 10:30 Dose: 500 mg Lorazepam (Ativan) 1 mg GT BID [facility] Last Admin: 05/13/18 10:50 Dose: 1 mg Losartan Potassium (Cozaar) 50 mg GT DAILY [facility] Last Admin: 05/13/18 10:50 Dose: 50 mg Magnesium Hydroxide (Milk Of Magnesia) 30 ml GT Q24H PRN PRN Reason: Constipation Multivitamins/Vitamin C (Multi-Delyn Liquid) 5 ml GT DAILY [facility] Last Admin: 05/13/18 10:50 Dose: 5 ml Pantoprazole Sodium (Protonix Susp) 40 mg PEG 1000 [facility] Last Admin: 05/13/18 10:50 Dose: 40 mg Tamsulosin HCl (Flomax) 0.4 mg PEG DAILY [facility] Last Admin: 05/13/18 10:50 Dose: 0.4 mg Valproate Sodium (Depakene Oral Soln) 500 mg GT Q12H [facility] Last Admin: 05/13/18 10:49 Dose: 500 mg Vitamin A (Vitamin A & D Oint Ud Foilpak) 6 ea TOP BID [facility] Last Admin: 05/13/18 10:50 Dose: 6 ea Zinc Sulfate (Zinc Sulfate 220 Mg Cap) 220 mg GT DAILY [facility] Last Admin: 05/13/18 10:50 Dose: 220 mg Zolpidem Tartrate (Ambien) 5 mg PO HS PRN PRN Reason: Insomnia Last Admin: 05/12/18 22:07 Dose: 5 mg - Labs Labs: 05/12/18 08:37 05/12/18 08:37 PT 12.9 SECONDS (9.7-12.2) H 05/07/18 20:52 INR 1.2 05/07/18 20:52 Assessment and Plan (1) Status post tracheostomy Status: Acute (2) COPD (chronic obstructive pulmonary disease) Status: Acute
[2018-05-13] MEDS ORDERED: Bismuth Subsalicylate 262 mg Chew Tab PO PRN (23:09)
--- NOTE | 2018-05-13 23:55 | CP.PCM.PN ---
Subjective - Date & Time of Evaluation Date of Evaluation: 05/13/18 Time of Evaluation: 18:00 - Subjective Subjective: The patient seen and examined Developed diarrhea No shortness of breath On trach collar Oral feeding Continue antibiotics Continue nebuliz Objective - Vital Signs/Intake and Output Vital Signs (last 24 hours): Temp Pulse Resp BP Pulse Ox 99.5 F 80 20 176/80 H 97 05/13/18 23:10 05/13/18 23:10 05/13/18 23:10 05/13/18 23:10 05/13/18 23:10 Intake and Output: 05/13/18 05/14/18 18:59 06:59 Intake Total 1560 Output Total 600 Balance 960 - Medications Medications: Current Medications Apixaban (Eliquis) 5 mg PO BID [facility] Last Admin: 05/13/18 18:25 Dose: 5 mg Aspirin (Aspirin Chewable) 81 mg GT DAILY [facility] [place] Last Admin: 05/13/18 10:50 Dose: 81 mg Bismuth Subsalicylate (Pepto Bismol) 524 mg PO Q4H PRN PRN Reason: Diarrhea Carvedilol (Coreg) 12.5 mg GT BID [facility] [place] Last Admin: 05/13/18 18:25 Dose: 12.5 mg Dextrose (Dextrose 50% Inj) 0 ml IVP .STAT PRN; Protocol PRN Reason: Hypoglycemia Protocol Last Admin: 05/12/18 17:37 Dose: 50 ml Ferrous Sulfate (Feosol Liq) 300 mg PO DAILY [facility] [place] Last Admin: 05/13/18 10:52 Dose: 300 mg Glucagon (Glucagen Diagnostic Kit) 0 mg IM .STAT PRN; Protocol PRN Reason: Hypoglycemia Protocol Dextrose (Dextrose 5% In Water 1000 Ml) 1,000 mls @ 0 mls/hr IV .Q0M PRN; Protocol; Per Protocol PRN Reason: Hypoglycemia Protocol Insulin Aspart (Novolog) 0 unit SC ACHS [facility] [place] PRN Reason: Protocol Last Admin: 05/13/18 21:59 Dose: Not Given Insulin Detemir (Levemir) 34 unit SC Q12 [facility] [place] Last Admin: 05/13/18 22:00 Dose: 34 units Levetiracetam (Keppra) 500 mg GT Q12H [facility] [place] Last Admin: 05/13/18 22:00 Dose: 500 mg Lorazepam (Ativan) 1 mg GT BID [facility] [place] Last Admin: 05/13/18 18:25 Dose: 1 mg Losartan Potassium (Cozaar) 50 mg GT DAILY [facility] Last Admin: 05/13/18 10:50 Dose: 50 mg Magnesium Hydroxide (Milk Of Magnesia) 30 ml GT Q24H PRN PRN Reason: Constipation Metronidazole (Flagyl) 500 mg PO Q8 [facility] PRN Reason: Protocol Multivitamins/Vitamin C (Multi-Delyn Liquid) 5 ml GT DAILY [facility] [place] Last Admin: 05/13/18 10:50 Dose: 5 ml Pantoprazole Sodium (Protonix Susp) 40 mg PEG 1000 [facility] Last Admin: 05/13/18 10:50 Dose: 40 mg Tamsulosin HCl (Flomax) 0.4 mg PEG DAILY [facility] [place] Last Admin: 05/13/18 10:50 Dose: 0.4 mg Valproate Sodium (Depakene Oral Soln) 500 mg GT Q12H [facility] [place] Last Admin: 05/13/18 22:00 Dose: 500 mg Vitamin A (Vitamin A & D Oint Ud Foilpak) 6 ea TOP BID [facility] [place] Last Admin: 05/13/18 18:25 Dose: 6 ea Zinc Sulfate (Zinc Sulfate 220 Mg Cap) 220 mg GT DAILY [facility] [place] Last Admin: 05/13/18 10:50 Dose: 220 mg Zolpidem Tartrate (Ambien) 5 mg PO HS PRN PRN Reason: Insomnia Last Admin: 05/12/18 22:07 Dose: 5 mg - Labs Labs: 05/12/18 08:37 05/12/18 08:37 PT 12.9 SECONDS (9.7-12.2) H 05/07/18 20:52 INR 1.2 05/07/18 20:52
--- NOTE | 2018-05-13 23:55 | CP.PCM.PN ---
Subjective - Date & Time of Evaluation Date of Evaluation: 05/12/18 Time of Evaluation: 18:40 - Subjective Subjective: patient seen and examined Open eyes to stimuli On trach collar Saturation 99% Tolerating feeding Afebrile Objective - Vital Signs/Intake and Output Vital Signs (last 24 hours): Temp Pulse Resp BP Pulse Ox 99.5 F 80 20 176/80 H 97 05/13/18 23:10 05/13/18 23:10 05/13/18 23:10 05/13/18 23:10 05/13/18 23:10 Intake and Output: 05/13/18 05/14/18 18:59 06:59 Intake Total 1560 Output Total 600 Balance 960 - Medications Medications: Current Medications Apixaban (Eliquis) 5 mg PO BID [facility] Last Admin: 05/13/18 18:25 Dose: 5 mg Aspirin (Aspirin Chewable) 81 mg GT DAILY [facility] Last Admin: 05/13/18 10:50 Dose: 81 mg Bismuth Subsalicylate (Pepto Bismol) 524 mg PO Q4H PRN PRN Reason: Diarrhea Carvedilol (Coreg) 12.5 mg GT BID [facility] Last Admin: 05/13/18 18:25 Dose: 12.5 mg Dextrose (Dextrose 50% Inj) 0 ml IVP .STAT PRN; Protocol PRN Reason: Hypoglycemia Protocol Last Admin: 05/12/18 17:37 Dose: 50 ml Ferrous Sulfate (Feosol Liq) 300 mg PO DAILY [facility] Last Admin: 05/13/18 10:52 Dose: 300 mg Glucagon (Glucagen Diagnostic Kit) 0 mg IM .STAT PRN; Protocol PRN Reason: Hypoglycemia Protocol Dextrose (Dextrose 5% In Water 1000 Ml) 1,000 mls @ 0 mls/hr IV .Q0M PRN; Protocol; Per Protocol PRN Reason: Hypoglycemia Protocol Insulin Aspart (Novolog) 0 unit SC ACHS [facility] PRN Reason: Protocol Last Admin: 05/13/18 21:59 Dose: Not Given Insulin Detemir (Levemir) 34 unit SC Q12 [facility] Last Admin: 05/13/18 22:00 Dose: 34 units Levetiracetam (Keppra) 500 mg GT Q12H [facility] Last Admin: 05/13/18 22:00 Dose: 500 mg Lorazepam (Ativan) 1 mg GT BID [facility] Last Admin: 05/13/18 18:25 Dose: 1 mg Losartan Potassium (Cozaar) 50 mg GT DAILY [facility] Last Admin: 05/13/18 10:50 Dose: 50 mg Magnesium Hydroxide (Milk Of Magnesia) 30 ml GT Q24H PRN PRN Reason: Constipation Metronidazole (Flagyl) 500 mg PO Q8 [facility] PRN Reason: Protocol Multivitamins/Vitamin C (Multi-Delyn Liquid) 5 ml GT DAILY [facility] Last Admin: 05/13/18 10:50 Dose: 5 ml Pantoprazole Sodium (Protonix Susp) 40 mg PEG 1000 [facility] Last Admin: 05/13/18 10:50 Dose: 40 mg Tamsulosin HCl (Flomax) 0.4 mg PEG DAILY [facility] Last Admin: 05/13/18 10:50 Dose: 0.4 mg Valproate Sodium (Depakene Oral Soln) 500 mg GT Q12H [facility] Last Admin: 05/13/18 22:00 Dose: 500 mg Vitamin A (Vitamin A & D Oint Ud Foilpak) 6 ea TOP BID [facility] Last Admin: 05/13/18 18:25 Dose: 6 ea Zinc Sulfate (Zinc Sulfate 220 Mg Cap) 220 mg GT DAILY [facility] Last Admin: 05/13/18 10:50 Dose: 220 mg Zolpidem Tartrate (Ambien) 5 mg PO HS PRN PRN Reason: Insomnia Last Admin: 05/12/18 22:07 Dose: 5 mg - Labs Labs: 05/12/18 08:37 05/12/18 08:37 PT 12.9 SECONDS (9.7-12.2) H 05/07/18 20:52 INR 1.2 05/07/18 20:52
[2018-05-14 08:36] LABS: HEMOGLOBIN 10.3 g/dL (12.0-18.0); MEAN CELL VOLUME 93.4 fL (80.0-94.0); MEAN CORPUSCULAR HEMOGLOBIN 30.8 pg (27.0-31.0); RBC 3.36 Mil/uL (4.40-5.90); RED CELL DISTRIBUTION WIDTH 13.5 % (11.5-14.5)
[2018-05-14] MEDS: (Novolog) Insulin Aspart, Recombinant 100 u/ml 10 ml vial SC SCH ×4 (08:40→22:26)
[2018-05-14 08:47] LABS: BLOOD UREA NITROGEN 30 mg/dL (9-20); CALCIUM 8.7 mg/dl (8.6-10.4); GFR AFRICAN-AMERICAN > 60; GFR NON-AFRICAN AMERICAN > 60
[2018-05-14] MEDS: levETIRAcetam 100 mg/ml (5ml) Oral Syringe GT SCH ×2 (09:22→21:39)
[2018-05-14] MEDS: Insulin Detemir 100 units/ml Vial (Levemir) SC SCH ×2 (09:22→21:47)
[2018-05-14] MEDS: Ferrous Sulfate 300 mg/5 mL Liq UD PO SCH (09:23)
[2018-05-14] MEDS: Multiple Vitamins Oral Solution GT SCH (09:23)
[2018-05-14] MEDS: Vitamins A & D Oint UD Foilpak TOP SCH ×2 (09:24→18:39)
[2018-05-14] MEDS: Pantoprazole 40 mg Susp UD PEG SCH (09:24)
[2018-05-14] MEDS: Valproic Acid 250 mg/5 ml UD Cup GT SCH ×3 (09:43→21:38)
--- NOTE | 2018-05-14 17:21 | CP.PCM.PN ---
Subjective - Date & Time of Evaluation Date of Evaluation: 05/14/18 Time of Evaluation: 10:50 - Subjective Subjective: the patient seen and examined No further diarrhea No shortness of breath Trach collar Objective - Vital Signs/Intake and Output Vital Signs (last 24 hours): Temp Pulse Resp BP Pulse Ox 97.5 F L 72 22 105/61 100 05/14/18 15:00 05/14/18 15:00 05/14/18 15:00 05/14/18 15:00 05/14/18 15:00 Intake and Output: 05/14/18 05/14/18 06:59 18:59 Output Total 300 Balance -300 - Medications Medications: Current Medications Apixaban (Eliquis) 5 mg PO BID [facility] Last Admin: 05/14/18 09:23 Dose: 5 mg Aspirin (Aspirin Chewable) 81 mg GT DAILY [facility] Last Admin: 05/14/18 09:24 Dose: 81 mg Bismuth Subsalicylate (Pepto Bismol) 524 mg PO Q4H PRN PRN Reason: Diarrhea Carvedilol (Coreg) 12.5 mg GT BID [facility] Last Admin: 05/14/18 09:23 Dose: 12.5 mg Dextrose (Dextrose 50% Inj) 0 ml IVP .STAT PRN; Protocol PRN Reason: Hypoglycemia Protocol Last Admin: 05/12/18 17:37 Dose: 50 ml Ferrous Sulfate (Feosol Liq) 300 mg PO DAILY [facility] Last Admin: 05/14/18 09:23 Dose: 300 mg Glucagon (Glucagen Diagnostic Kit) 0 mg IM .STAT PRN; Protocol PRN Reason: Hypoglycemia Protocol Dextrose (Dextrose 5% In Water 1000 Ml) 1,000 mls @ 0 mls/hr IV .Q0M PRN; Protocol; Per Protocol PRN Reason: Hypoglycemia Protocol Insulin Aspart (Novolog) 0 unit SC ACHS [facility] PRN Reason: Protocol Last Admin: 05/14/18 12:49 Dose: 3 u Insulin Detemir (Levemir) 34 unit SC Q12 [facility] Last Admin: 05/14/18 09:22 Dose: 34 units Levetiracetam (Keppra) 500 mg GT Q12H [facility] Last Admin: 05/14/18 09:22 Dose: 500 mg Lorazepam (Ativan) 1 mg GT BID [facility] Last Admin: 05/14/18 09:23 Dose: 1 mg Losartan Potassium (Cozaar) 50 mg GT DAILY [facility] Last Admin: 05/14/18 09:24 Dose: 50 mg Magnesium Hydroxide (Milk Of Magnesia) 30 ml GT Q24H PRN PRN Reason: Constipation Metronidazole (Flagyl) 500 mg PO Q8 [facility] PRN Reason: Protocol Last Admin: 05/14/18 13:48 Dose: 500 mg Multivitamins/Vitamin C (Multi-Delyn Liquid) 5 ml GT DAILY [facility] Last Admin: 05/14/18 09:23 Dose: 5 ml Pantoprazole Sodium (Protonix Susp) 40 mg PEG 1000 [facility] Last Admin: 05/14/18 09:24 Dose: 40 mg Tamsulosin HCl (Flomax) 0.4 mg PEG DAILY [facility] Last Admin: 05/14/18 09:23 Dose: 0.4 mg Valproate Sodium (Depakene Oral Soln) 500 mg GT Q12H [facility] Last Admin: 05/14/18 10:05 Dose: 500 mg Vitamin A (Vitamin A & D Oint Ud Foilpak) 6 ea TOP BID [facility] Last Admin: 05/14/18 09:24 Dose: 6 ea Zinc Sulfate (Zinc Sulfate 220 Mg Cap) 220 mg GT DAILY [facility] Last Admin: 05/14/18 09:23 Dose: 220 mg Zolpidem Tartrate (Ambien) 5 mg PO HS PRN PRN Reason: Insomnia Last Admin: 05/12/18 22:07 Dose: 5 mg - Labs Labs: 05/14/18 08:28 05/14/18 08:28 PT 12.9 SECONDS (9.7-12.2) H 05/07/18 20:52 INR 1.2 05/07/18 20:52 - Head Exam Head Exam: ATRAUMATIC, NORMOCEPHALIC - ENT Exam ENT Exam: Mucous Membranes Moist - Respiratory Exam Respiratory Exam: Decreased Breath Sounds - Cardiovascular Exam Cardiovascular Exam: REGULAR RHYTHM Assessment and Plan (1) Status post tracheostomy Assessment & Plan: Continue with present treatment Clinically much improved No further diarrhea Status: Acute (2) COPD (chronic obstructive pulmonary disease) Status: Acute
[2018-05-15 02:31] VITALS: RESP 20
--- NOTE | 2018-05-15 06:00 | CP.PCM.PN ---
Subjective - Date & Time of Evaluation Date of Evaluation: 05/14/18 Time of Evaluation: 21:00 - Subjective Subjective: Pt seen and examined at bedside Objective - Vital Signs/Intake and Output Vital Signs (last 24 hours): Temp Pulse Resp BP Pulse Ox 98.5 F 73 20 98/57 L 97 05/14/18 23:30 05/14/18 23:30 05/14/18 23:30 05/14/18 23:30 05/14/18 23:30 Intake and Output: 05/14/18 05/15/18 18:59 06:59 Intake Total 980 Output Total 400 Balance 580 - Medications Medications: Current Medications Apixaban (Eliquis) 5 mg PO BID [facility] Last Admin: 05/14/18 18:40 Dose: 5 mg Aspirin (Aspirin Chewable) 81 mg GT DAILY [facility] Last Admin: 05/14/18 09:24 Dose: 81 mg Bismuth Subsalicylate (Pepto Bismol) 524 mg PO Q4H PRN PRN Reason: Diarrhea Carvedilol (Coreg) 12.5 mg GT BID [facility] Last Admin: 05/14/18 18:41 Dose: 12.5 mg Dextrose (Dextrose 50% Inj) 0 ml IVP .STAT PRN; Protocol PRN Reason: Hypoglycemia Protocol Last Admin: 05/12/18 17:37 Dose: 50 ml Ferrous Sulfate (Feosol Liq) 300 mg PO DAILY [facility] Last Admin: 05/14/18 09:23 Dose: 300 mg Glucagon (Glucagen Diagnostic Kit) 0 mg IM .STAT PRN; Protocol PRN Reason: Hypoglycemia Protocol Dextrose (Dextrose 5% In Water 1000 Ml) 1,000 mls @ 0 mls/hr IV .Q0M PRN; Protocol; Per Protocol PRN Reason: Hypoglycemia Protocol Insulin Aspart (Novolog) 0 unit SC ACHS [facility] PRN Reason: Protocol Last Admin: 05/14/18 22:26 Dose: Not Given Insulin Detemir (Levemir) 34 unit SC Q12 [facility] Last Admin: 05/14/18 21:47 Dose: 34 units Levetiracetam (Keppra) 500 mg GT Q12H [facility] Last Admin: 05/14/18 21:39 Dose: 500 mg Lorazepam (Ativan) 1 mg GT BID [facility] Last Admin: 05/14/18 18:45 Dose: 1 mg Losartan Potassium (Cozaar) 50 mg GT DAILY [facility] Last Admin: 05/14/18 09:24 Dose: 50 mg Magnesium Hydroxide (Milk Of Magnesia) 30 ml GT Q24H PRN PRN Reason: Constipation Metronidazole (Flagyl) 500 mg PO Q8 [facility] PRN Reason: Protocol Last Admin: 05/15/18 05:32 Dose: 500 mg Multivitamins/Vitamin C (Multi-Delyn Liquid) 5 ml GT DAILY [facility] Last Admin: 05/14/18 09:23 Dose: 5 ml Pantoprazole Sodium (Protonix Susp) 40 mg PEG 1000 [facility] Last Admin: 05/14/18 09:24 Dose: 40 mg Tamsulosin HCl (Flomax) 0.4 mg PEG DAILY [facility] Last Admin: 05/14/18 09:23 Dose: 0.4 mg Valproate Sodium (Depakene Oral Soln) 500 mg GT Q12H [facility] Last Admin: 05/14/18 21:38 Dose: 500 mg Vitamin A (Vitamin A & D Oint Ud Foilpak) 6 ea TOP BID [facility] Last Admin: 05/14/18 18:39 Dose: 6 ea Zinc Sulfate (Zinc Sulfate 220 Mg Cap) 220 mg GT DAILY [facility] Last Admin: 05/14/18 09:23 Dose: 220 mg Zolpidem Tartrate (Ambien) 5 mg PO HS PRN PRN Reason: Insomnia Last Admin: 05/14/18 21:48 Dose: 5 mg - Labs Labs: 05/14/18 08:28 05/14/18 08:28 PT 12.9 SECONDS (9.7-12.2) H 05/07/18 20:52 INR 1.2 05/07/18 20:52
[2018-05-15] MEDS: (Novolog) Insulin Aspart, Recombinant 100 u/ml 10 ml vial SC SCH ×4 (08:02→22:35)
[2018-05-15] MEDS: Vitamins A & D Oint UD Foilpak TOP SCH ×2 (09:24→21:04)
[2018-05-15] MEDS: Multiple Vitamins Oral Solution GT SCH (09:25)
[2018-05-15] MEDS: Valproic Acid 250 mg/5 ml UD Cup GT SCH ×2 (09:25→21:03)
[2018-05-15] MEDS: Ferrous Sulfate 300 mg/5 mL Liq UD PO SCH (09:25)
[2018-05-15] MEDS: levETIRAcetam 100 mg/ml (5ml) Oral Syringe GT SCH ×2 (09:26→21:02)
[2018-05-15] MEDS: Pantoprazole 40 mg Susp UD PEG SCH (09:33)
[2018-05-15] MEDS: Insulin Detemir 100 units/ml Vial (Levemir) SC SCH ×2 (09:33→22:34)
--- NOTE | 2018-05-15 22:14 | CP.PCM.PN ---
Subjective - Date & Time of Evaluation Date of Evaluation: 05/15/18 Time of Evaluation: 19:45 - Subjective Subjective: patient seen and examined by me,diarrhea resolved denies any chest pain, shortness of breath, on Trach collar peg feeds, gets agitated at times Objective - Vital Signs/Intake and Output Vital Signs (last 24 hours): Temp Pulse Resp BP Pulse Ox 98.3 F 86 20 145/65 100 05/15/18 15:00 05/15/18 15:00 05/15/18 15:00 05/15/18 15:00 05/15/18 15:00 Intake and Output: 05/15/18 05/16/18 18:59 06:59 Output Total 600 Balance -600 - Medications Medications: Current Medications Apixaban (Eliquis) 5 mg PO BID [facility] Last Admin: 05/15/18 19:00 Dose: 5 mg Aspirin (Aspirin Chewable) 81 mg GT DAILY [facility] Last Admin: 05/15/18 09:24 Dose: 81 mg Bismuth Subsalicylate (Pepto Bismol) 524 mg PO Q4H PRN PRN Reason: Diarrhea Carvedilol (Coreg) 12.5 mg GT BID [facility] Last Admin: 05/15/18 19:00 Dose: 12.5 mg Dextrose (Dextrose 50% Inj) 0 ml IVP .STAT PRN; Protocol PRN Reason: Hypoglycemia Protocol Last Admin: 05/12/18 17:37 Dose: 50 ml Ferrous Sulfate (Feosol Liq) 300 mg PO DAILY [facility] Last Admin: 05/15/18 09:25 Dose: 300 mg Glucagon (Glucagen Diagnostic Kit) 0 mg IM .STAT PRN; Protocol PRN Reason: Hypoglycemia Protocol Insulin Aspart (Novolog) 0 unit SC [facility] PRN Reason: Protocol Last Admin: 05/15/18 18:09 Dose: Not Given Insulin Detemir (Levemir) 30 unit SC Q12 [facility] Levetiracetam (Keppra) 500 mg GT Q12H [facility] Last Admin: 05/15/18 21:02 Dose: 500 mg Lorazepam (Ativan) 1 mg PEG BID [facility] Last Admin: 05/15/18 21:01 Dose: 1 mg Losartan Potassium (Cozaar) 50 mg GT DAILY [facility] Last Admin: 05/15/18 09:26 Dose: 50 mg Magnesium Hydroxide (Milk Of Magnesia) 30 ml GT Q24H PRN PRN Reason: Constipation Metronidazole (Flagyl) 500 mg PO Q8 [facility] PRN Reason: Protocol Last Admin: 05/15/18 21:01 Dose: 500 mg Multivitamins/Vitamin C (Multi-Delyn Liquid) 5 ml GT DAILY [facility] Last Admin: 05/15/18 09:25 Dose: 5 ml Pantoprazole Sodium (Protonix Susp) 40 mg PEG 1000 [facility] Last Admin: 05/15/18 09:33 Dose: 40 mg Tamsulosin HCl (Flomax) 0.4 mg PEG DAILY [facility] Last Admin: 05/15/18 09:26 Dose: 0.4 mg Valproate Sodium (Depakene Oral Soln) 500 mg GT Q12H [facility] Last Admin: 05/15/18 21:03 Dose: 500 mg Vitamin A (Vitamin A & D Oint Ud Foilpak) 6 ea TOP BID [facility] Last Admin: 05/15/18 21:04 Dose: 6 ea Zinc Sulfate (Zinc Sulfate 220 Mg Cap) 220 mg GT DAILY [facility] Last Admin: 05/15/18 09:26 Dose: 220 mg Zolpidem Tartrate (Ambien) 5 mg PO HS PRN PRN Reason: Insomnia Last Admin: 05/15/18 21:01 Dose: 5 mg - Labs Labs: 05/14/18 08:28 05/14/18 08:28 PT 12.9 SECONDS (9.7-12.2) H 05/07/18 20:52 INR 1.2 05/07/18 20:52 - Constitutional Appears: No Acute Distress - Head Exam Head Exam: ATRAUMATIC, NORMAL INSPECTION, NORMOCEPHALIC - Eye Exam Eye Exam: EOMI, Normal appearance, PERRL Pupil Exam: NORMAL ACCOMODATION, PERRL - ENT Exam ENT Exam: Mucous Membranes Moist, Normal Exam - Respiratory Exam Respiratory Exam: Decreased Breath Sounds, Rales, Rhonchi, NORMAL BREATHING PATTERN - Cardiovascular Exam Cardiovascular Exam: REGULAR RHYTHM, +S1, +S2. absent: Murmur - GI/Abdominal Exam GI & Abdominal Exam: Soft, Normal Bowel Sounds. absent: Tenderness - Rectal Exam Rectal Exam: Deferred Assessment and Plan (1) Altered mental status Status: Acute (2) COPD (chronic obstructive pulmonary disease) Status: Acute (3) Dehydration Status: Acute (4) Status post tracheostomy Status: Acute (5) CKD (chronic kidney disease) Status: Acute (6) Congestive heart failure Status: Acute (7) Diabetes Status: Acute
[2018-05-16] MEDS ORDERED: Pantoprazole 40 mg Susp UD PEG SCH (07:41)
[2018-05-16 08:44] LABS: BASO % 0.4 % (0.0-2.0); EOS # 0.2 K/uL (0.0-0.7); HEMOGLOBIN 11.3 g/dL (12.0-18.0); LYMPH % 29.4 % (20.0-40.0); MEAN CELL VOLUME 93.4 fL (80.0-94.0); MEAN CORPUSCULAR HEMOGLOBIN 30.6 pg (27.0-31.0); MEAN CORPUSCULAR HGB CONC 32.8 g/dL (33.0-37.0); MEAN PLATELET VOLUME 11.7 fL (7.2-11.7); MONO # 0.6 K/uL (0.0-0.8); MONO % 9.2 % (0.0-10.0); NEUT # 3.9 K/uL (1.8-7.0); RBC 3.69 Mil/uL (4.40-5.90); RED CELL DISTRIBUTION WIDTH 13.4 % (11.5-14.5); WHITE BLOOD COUNT 6.7 K/uL (4.8-10.8)
[2018-05-16 08:50] LABS: BLOOD UREA NITROGEN 36 mg/dL (9-20); CALCIUM 8.6 mg/dl (8.6-10.4); GFR AFRICAN-AMERICAN > 60; GFR NON-AFRICAN AMERICAN > 60
[2018-05-16] MEDS: Ferrous Sulfate 300 mg/5 mL Liq UD PO SCH (09:27)
[2018-05-16] MEDS: Vitamins A & D Oint UD Foilpak TOP SCH (09:27)
[2018-05-16] MEDS: Multiple Vitamins Oral Solution GT SCH (09:28)
[2018-05-16] MEDS: levETIRAcetam 100 mg/ml (5ml) Oral Syringe GT SCH (09:28)
[2018-05-16] MEDS: Insulin Detemir 100 units/ml Vial (Levemir) SC SCH (09:29)
[2018-05-16] MEDS: Valproic Acid 250 mg/5 ml UD Cup GT SCH (09:29)
[2018-05-16] MEDS: (Novolog) Insulin Aspart, Recombinant 100 u/ml 10 ml vial SC SCH ×3 (09:30→17:53)
--- NOTE | 2018-05-16 15:45 | CP.PCM.PN ---
Subjective - Date & Time of Evaluation Date of Evaluation: 05/16/18 Time of Evaluation: 11:35 - Subjective Subjective: Patient seen today, awake alert , NAD , oxygen via trach collar , saturating well a febrile Objective - Vital Signs/Intake and Output Vital Signs (last 24 hours): Temp Pulse Resp BP Pulse Ox 97.8 F 81 20 169/76 H 97 05/16/18 08:38 05/16/18 08:38 05/16/18 08:38 05/16/18 08:38 05/16/18 08:38 Intake and Output: 05/16/18 05/16/18 06:59 18:59 Intake Total 1800 Output Total 1250 Balance 550 - Medications Medications: Current Medications Apixaban (Eliquis) 5 mg PO BID [facility] Last Admin: 05/16/18 09:27 Dose: 5 mg Aspirin (Aspirin Chewable) 81 mg GT DAILY [facility] Last Admin: 05/16/18 09:27 Dose: 81 mg Carvedilol (Coreg) 12.5 mg GT BID [facility] Last Admin: 05/16/18 09:27 Dose: 12.5 mg Dextrose (Dextrose 50% Inj) 0 ml IVP .STAT PRN; Protocol PRN Reason: Hypoglycemia Protocol Last Admin: 05/12/18 17:37 Dose: 50 ml Ferrous Sulfate (Feosol Liq) 300 mg PO DAILY [facility] Last Admin: 05/16/18 09:27 Dose: 300 mg Glucagon (Glucagen Diagnostic Kit) 0 mg IM .STAT PRN; Protocol PRN Reason: Hypoglycemia Protocol Haloperidol Lactate (Haldol) 1 mg IM Q6 PRN PRN Reason: Agitation Insulin Aspart (Novolog) 0 unit SC ACHS [facility] PRN Reason: Protocol Last Admin: 05/16/18 14:28 Dose: 2 u Insulin Detemir (Levemir) 30 unit SC Q12 [facility] Last Admin: 05/16/18 09:29 Dose: 30 u Levetiracetam (Keppra) 500 mg GT Q12H [facility] Last Admin: 05/16/18 09:28 Dose: 500 mg Lorazepam (Ativan) 1 mg PEG BID [facility] Last Admin: 05/16/18 09:47 Dose: 1 mg Losartan Potassium (Cozaar) 50 mg GT DAILY [facility] Last Admin: 05/16/18 09:28 Dose: 50 mg Magnesium Hydroxide (Milk Of Magnesia) 30 ml GT Q24H PRN PRN Reason: Constipation Multivitamins/Vitamin C (Multi-Delyn Liquid) 5 ml GT DAILY [facility] Last Admin: 05/16/18 09:28 Dose: 5 ml Pantoprazole Sodium (Protonix Susp) 20 mg PEG 1000 [facility] Last Admin: 05/16/18 09:27 Dose: 20 mg Tamsulosin HCl (Flomax) 0.4 mg PEG DAILY [facility] Last Admin: 05/16/18 09:32 Dose: 0.4 mg Valproate Sodium (Depakene Oral Soln) 500 mg GT Q12H [facility] Last Admin: 05/16/18 09:29 Dose: 500 mg Vitamin A (Vitamin A & D Oint Ud Foilpak) 6 ea TOP BID [facility] Last Admin: 05/16/18 09:27 Dose: 6 ea Zinc Sulfate (Zinc Sulfate 220 Mg Cap) 220 mg GT DAILY [facility] Last Admin: 05/16/18 14:29 Dose: 220 mg Zolpidem Tartrate (Ambien) 5 mg PO HS [facility] - Labs Labs: 05/16/18 08:25 05/16/18 08:25 PT 12.9 SECONDS (9.7-12.2) H 05/07/18 20:52 INR 1.2 05/07/18 20:52 Assessment and Plan - Assessment and Plan (Free Text) Assessment: A/P 68 yr old male with pmhx of HTN , DM ,COPD,s/p [facility] Change in mental status, Dehydration, agitation and fever blood cultures all negative Patient clinically improved with IVF and NA back to normal Patient accepted at [facility] for senior care and family in agreement as per ISHA D/w Dr. Rose, stable for discharge to [place] today under the service of Dr. eduardo VIEIRA will contact family and arrange transportation
--- NOTE | 2018-05-16 15:47 | CP.PCM.PN ---
Subjective - Date & Time of Evaluation Date of Evaluation: 05/16/18 Time of Evaluation: 20:00 - Subjective Subjective: Pt seen and examined,afebrile, no loose watery stools, agitated at times, on peg feeds Objective - Vital Signs/Intake and Output Vital Signs (last 24 hours): Temp Pulse Resp BP Pulse Ox 97.8 F 81 20 169/76 H 97 05/16/18 08:38 05/16/18 08:38 05/16/18 08:38 05/16/18 08:38 05/16/18 08:38 Intake and Output: 05/16/18 05/16/18 06:59 18:59 Intake Total 1800 Output Total 1250 Balance 550 - Medications Medications: Current Medications Apixaban (Eliquis) 5 mg PO BID [facility] Last Admin: 05/16/18 09:27 Dose: 5 mg Aspirin (Aspirin Chewable) 81 mg GT DAILY [facility] Last Admin: 05/16/18 09:27 Dose: 81 mg Carvedilol (Coreg) 12.5 mg GT BID [facility] Last Admin: 05/16/18 09:27 Dose: 12.5 mg Dextrose (Dextrose 50% Inj) 0 ml IVP .STAT PRN; Protocol PRN Reason: Hypoglycemia Protocol Last Admin: 05/12/18 17:37 Dose: 50 ml Ferrous Sulfate (Feosol Liq) 300 mg PO DAILY [facility] Last Admin: 05/16/18 09:27 Dose: 300 mg Glucagon (Glucagen Diagnostic Kit) 0 mg IM .STAT PRN; Protocol PRN Reason: Hypoglycemia Protocol Haloperidol Lactate (Haldol) 1 mg IM Q6 PRN PRN Reason: Agitation Insulin Aspart (Novolog) 0 unit SC ACHS [facility] PRN Reason: Protocol Last Admin: 05/16/18 14:28 Dose: 2 u Insulin Detemir (Levemir) 30 unit SC Q12 [facility] Last Admin: 05/16/18 09:29 Dose: 30 u Levetiracetam (Keppra) 500 mg GT Q12H [facility] Last Admin: 05/16/18 09:28 Dose: 500 mg Lorazepam (Ativan) 1 mg PEG BID [facility] Last Admin: 05/16/18 09:47 Dose: 1 mg Losartan Potassium (Cozaar) 50 mg GT DAILY [facility] Last Admin: 05/16/18 09:28 Dose: 50 mg Magnesium Hydroxide (Milk Of Magnesia) 30 ml GT Q24H PRN PRN Reason: Constipation Multivitamins/Vitamin C (Multi-Delyn Liquid) 5 ml GT DAILY [facility] Last Admin: 05/16/18 09:28 Dose: 5 ml Pantoprazole Sodium (Protonix Susp) 20 mg PEG 1000 [facility] Last Admin: 05/16/18 09:27 Dose: 20 mg Tamsulosin HCl (Flomax) 0.4 mg PEG DAILY [facility] Last Admin: 05/16/18 09:32 Dose: 0.4 mg Valproate Sodium (Depakene Oral Soln) 500 mg GT Q12H [facility] Last Admin: 05/16/18 09:29 Dose: 500 mg Vitamin A (Vitamin A & D Oint Ud Foilpak) 6 ea TOP BID [facility] Last Admin: 05/16/18 09:27 Dose: 6 ea Zinc Sulfate (Zinc Sulfate 220 Mg Cap) 220 mg GT DAILY [facility] Last Admin: 05/16/18 14:29 Dose: 220 mg Zolpidem Tartrate (Ambien) 5 mg PO HS [facility] - Labs Labs: 05/16/18 08:25 05/16/18 08:25 PT 12.9 SECONDS (9.7-12.2) H 05/07/18 20:52 INR 1.2 05/07/18 20:52 - Constitutional Appears: No Acute Distress - Head Exam Head Exam: ATRAUMATIC, NORMAL INSPECTION, NORMOCEPHALIC - Eye Exam Eye Exam: EOMI, Normal appearance, PERRL Pupil Exam: NORMAL ACCOMODATION, PERRL - Respiratory Exam Respiratory Exam: Decreased Breath Sounds, Rales, Rhonchi, NORMAL BREATHING PATTERN - Cardiovascular Exam Cardiovascular Exam: REGULAR RHYTHM, +S1, +S2. absent: Murmur - GI/Abdominal Exam GI & Abdominal Exam: Soft, Normal Bowel Sounds. absent: Tenderness Assessment and Plan (1) Altered mental status Status: Acute (2) COPD (chronic obstructive pulmonary disease) Status: Acute (3) Dehydration Status: Acute (4) Status post tracheostomy Status: Acute (5) CKD (chronic kidney disease) Status: Acute (6) Congestive heart failure Status: Acute (7) Diabetes Status: Acute
[2018-05-16 16:41] VITALS: BP 146/76; PULSE 85; TEMP 97.9; O2SAT 96
--- NOTE | 2018-05-17 16:08 | CP.PCM.DIS ---
Provider - Provider Date of Admission: 05/07/18 21:59 Attending physician: Arash Rose MD Time Spent in preparation of Discharge (in minutes): 45 Diagnosis - Discharge Diagnosis (1) Altered mental status Status: Acute (2) COPD (chronic obstructive pulmonary disease) Status: Acute (3) Dehydration Status: Acute (4) Status post tracheostomy Status: Acute (5) CKD (chronic kidney disease) Status: Acute (6) Congestive heart failure Status: Acute (7) Diabetes Status: Acute Hospital Course - Lab Results Lab Results: Micro Results 05/07/18 22:33 Blood-Venous Blood Culture - Final NO GROWTH AFTER 5 DAYS 05/07/18 22:33 Blood-Venous Gram Stain - Final TEST NOT PERFORMED 05/07/18 22:33 Blood-Venous Blood Culture - Final NO GROWTH AFTER 5 DAYS 05/08/18 15:00 Trachasp Gram Stain - Final 05/08/18 15:00 Trachasp Sputum Culture - Final NORMAL ORAL HALEY 05/08/18 15:02 Urine,Clean Catch Urine Culture - Final No Growth (<1,000 CFU/ML) Most Recent Lab Values WBC 6.7 K/uL (4.8-10.8) 05/16/18 08:25 RBC 3.69 Mil/uL (4.40-5.90) L 05/16/18 08:25 Hgb 11.3 g/dL (12.0-18.0) L 05/16/18 08:25 Hct 34.5 % (35.0-51.0) L 05/16/18 08:25 MCV 93.4 fL (80.0-94.0) 05/16/18 08:25 MCH 30.6 pg (27.0-31.0) 05/16/18 08:25 MCHC 32.8 g/dL (33.0-37.0) L 05/16/18 08:25 RDW 13.4 % (11.5-14.5) 05/16/18 08:25 Plt Count 259 K/uL (130-400) 05/16/18 08:25 MPV 11.7 fL (7.2-11.7) 05/16/18 08:25 Neut % (Auto) 58.0 % (50.0-75.0) 05/16/18 08:25 Lymph % (Auto) 29.4 % (20.0-40.0) 05/16/18 08:25 Webb % (Auto) 9.2 % (0.0-10.0) 05/16/18 08:25 Eos % (Auto) 3.0 % (0.0-4.0) 05/16/18 08:25 Baso % (Auto) 0.4 % (0.0-2.0) 05/16/18 08:25 Neut # (Auto) 3.9 K/uL (1.8-7.0) 05/16/18 08:25 Lymph # (Auto) 2.0 K/uL (1.0-4.3) 05/16/18 08:25 Webb # (Auto) 0.6 K/uL (0.0-0.8) 05/16/18 08:25 Eos # (Auto) 0.2 K/uL (0.0-0.7) 05/16/18 08:25 Baso # (Auto) 0.0 K/uL (0.0-0.2) 05/16/18 08:25 PT 12.9 SECONDS (9.7-12.2) H 05/07/18 20:52 INR 1.2 05/07/18 20:52 Puncture Site Ba 05/11/18 09:47 pCO2 55 mm/Hg (35-45) H 05/11/18 09:47 pO2 130 mm/Hg (80-100) H 05/11/18 09:47 HCO3 32.6 mmol/L (21-28) H 05/11/18 09:47 ABG pH 7.42 (7.35-7.45) 05/11/18 09:47 ABG Total CO2 37.4 mmol/L (22-28) H 05/11/18 09:47 ABG O2 Saturation 99.7 % (95-98) H 05/11/18 09:47 ABG Base Excess 9.8 mmol/L (-2.0-3.0) H 05/11/18 09:47 ABG Hemoglobin 9.6 g/dL (11.7-17.4) L 05/11/18 09:47 ABG Carboxyhemoglobin 2.0 % (0.5-1.5) H 05/11/18 09:47 POC ABG HHb (Measured) 0.3 % (0.0-5.0) 05/11/18 09:47 ABG Methemoglobin 0.9 % (0.0-3.0) 05/11/18 09:47 Jamey Test Na 05/11/18 09:47 VBG pH 7.38 (7.32-7.43) 05/07/18 20:53 VBG pCO2 68 mmHg (40-60) H* 05/07/18 20:53 VBG HCO3 32.8 mmol/L 05/07/18 20:53 VBG Total CO2 42.3 mmol/L (22-28) H 05/07/18 20:53 VBG O2 Sat (Calc) 42.1 % (40-65) 05/07/18 20:53 VBG Base Excess 12.0 mmol/L (0.0-2.0) H 05/07/18 20:53 VBG Potassium 4.4 mmol/L (3.6-5.2) 05/07/18 20:53 A-a O2 Difference 86.0 mm/Hg 05/11/18 09:47 Respiratory Index 0.7 05/11/18 09:47 Hgb O2 Saturation 96.7 % (95.0-98.0) 05/11/18 09:47 Sodium 142.0 mmol/l (132-148) 05/07/18 20:53 Chloride 103.0 mmol/L (98-107) 05/07/18 20:53 Glucose 98 mg/dl (75-110) 05/07/18 20:53 Lactate 1.7 mmol/L (0.7-2.1) 05/07/18 20:53 Liter Flow 8.0 05/11/18 09:47 FiO2 40.0 % 05/11/18 09:47 Crit Value Called To Dr. coleman 05/07/18 20:53 Crit Value Called By Tamara cisneros 05/07/18 20:53 Crit Value Read Back Y 05/07/18 20:53 Blood Gas Notified Time 205605/07/18 20:53 Sodium 147 mmol/L (132-148) 05/16/18 08:25 Potassium 4.0 mmol/L (3.6-5.2) 05/16/18 08:25 Chloride 102 mmol/L (98-107) 05/16/18 08:25 Carbon Dioxide 37 mmol/L (22-30) H 05/16/18 08:25 Anion Gap 12 (10-20) 05/16/18 08:25 BUN 36 mg/dL (9-20) H 05/16/18 08:25 Creatinine 1.0 mg/dL (0.8-1.5) 05/16/18 08:25 Est GFR ( Amer) > 60 05/16/18 08:25 Est GFR (Non-Af Amer) > 60 05/16/18 08:25 POC Glucose (mg/dL) 255 mg/dL (65-110) H 05/16/18 16:23 Random Glucose 235 mg/dL (75-110) H 05/16/18 08:25 Calcium 8.6 mg/dl (8.6-10.4) 05/16/18 08:25 Total Bilirubin 0.6 mg/dL (0.2-1.3) 05/07/18 20:52 AST 23 U/L (17-59) 05/07/18 20:52 ALT 23 U/L (21-72) 05/07/18 20:52 Alkaline Phosphatase 110 U/L (38-126) 05/07/18 20:52 Total Protein 7.7 g/dL (6.3-8.3) 05/07/18 20:52 Albumin 4.0 g/dL (3.5-5.0) 05/07/18 20:52 Globulin 3.7 gm/dL (2.2-3.9) 05/07/18 20:52 Albumin/Globulin Ratio 1.1 (1.0-2.1) 05/07/18 20:52 Lipase 68 U/L (23-300) 05/07/18 20:52 Venous Blood Potassium 4.4 mmol/L (3.6-5.2) 05/07/18 20:53 Urine Color Yellow (YELLOW) 05/10/18 23:46 Urine Clarity Hazy (Clear) 05/10/18 23:46 Urine pH 8.0 (5.0-8.0) 05/10/18 23:46 Ur Specific [place] 1.016 (1.003-1.030) 05/10/18 23:46 Urine Protein 2+ mg/dL (NEGATIVE) H 05/10/18 23:46 Urine Glucose (UA) 3+ mg/dL (Normal) H 05/10/18 23:46 Urine Ketones Negative mg/dL (NEGATIVE) 05/10/18 23:46 Urine Blood 1+ (NEGATIVE) H 05/10/18 23:46 Urine Nitrate Negative (NEGATIVE) 05/10/18 23:46 Urine Bilirubin Negative (NEGATIVE) 05/10/18 23:46 Urine Urobilinogen 2.0 mg/dL (0.2-1.0) 05/10/18 23:46 Ur Leukocyte Esterase 3+ Minh/uL (Negative) H 05/10/18 23:46 Urine WBC (Auto) 469 /hpf (0-5) H 05/10/18 23:46 Urine RBC (Auto) 16 /hpf (0-3) H 05/10/18 23:46 Urine WBC Clumps (Auto) Many /hpf (NONE) H 05/08/18 12:32 Ur Squamous Epith Cells 2 /hpf (0-5) 05/10/18 23:46 Urine Bacteria Few (<OCC) H 05/10/18 23:46 - Hospital Course Hospital Course: Pt was transferred to subacute rehab decrease cough, decrease shortness of breath 68 yr old male with pmhx of HTN , DM ,COPD,s/p trache admitted from [facility] with Change in mental status, Dehydration, agitation and fever blood cultures all negative Patient clinically improved with IVF and NA back to normal Patient accepted at [facility] for [facility] and family in agreement as per stable for discharge to [place] today under the service of Dr. clark will contact family and arrange transportation Discharge Exam - Head Exam Head Exam: ATRAUMATIC, NORMAL INSPECTION, NORMOCEPHALIC - Eye Exam Eye Exam: EOMI, Normal appearance, PERRL Pupil Exam: NORMAL ACCOMODATION, PERRL - ENT Exam ENT Exam: Mucous Membranes Moist - Respiratory Exam Respiratory Exam: Decreased Breath Sounds, Rales, Rhonchi - Cardiovascular Exam Cardiovascular Exam: REGULAR RHYTHM, +S1, +S2 - GI/Abdominal Exam GI & Abdominal Exam: Normal Bowel Sounds - Rectal Exam Rectal Exam: Deferred Discharge Plan - Follow Up Plan Condition: FAIR Disposition: HOME/ ROUTINE Instructions: Heart Failure, Adult (DC), Dehydration, Adult (DC), Altered Mental Status (DC), Exacerbation of COPD (DC) Additional Instructions: PLEASE ADMIT UNDER DR. CLARK SERVICE- CALL DR. CLARK UPON PATIENT ARRIVAL TO THE FACILITY trach collar , and trach care as per facility protocol Continue medication as per med. rec. Referrals: Garett Clark MD [Staff Provider] -
== END 2018-05-16 19:40 | DRG 947 ==
LOC: C.ER 19:59 → C.9E 21:59 → C.6T 22:55
PROVIDERS: ADMIT Internal Medicine; ATTEND Internal Medicine
PROC: 3E0G76Z Introduction of Nutritional Substance into Upper GI, Via Natural or Artificial Opening (ICD-10-PCS; principal; 2018-05-07)
DX: R41.82 Altered mental status, unspecified (principal); J18.9 Pneumonia, unspecified organism; J44.0 Chronic obstructive pulmonary disease with (acute) lower respiratory infection; I13.0 Hypertensive heart and chronic kidney disease with heart failure and stage 1 through stage 4 chronic kidney disease, or unspecified chronic kidney disease; E86.0 Dehydration; E11.22 Type 2 diabetes mellitus with diabetic chronic kidney disease; E11.51 Type 2 diabetes mellitus with diabetic peripheral angiopathy without gangrene; I25.10 Atherosclerotic heart disease of native coronary artery without angina pectoris; I50.9 Heart failure, unspecified; N18.9 Chronic kidney disease, unspecified; L97.529 Non-pressure chronic ulcer of other part of left foot with unspecified severity; L97.519 Non-pressure chronic ulcer of other part of right foot with unspecified severity; E78.5 Hyperlipidemia, unspecified; E78.00 Pure hypercholesterolemia, unspecified; Z93.0 Tracheostomy status; R13.10 Dysphagia, unspecified; R06.89 Other abnormalities of breathing; R19.7 Diarrhea, unspecified; Z93.1 Gastrostomy status; Z86.73 Personal history of transient ischemic attack (TIA), and cerebral infarction without residual deficits; Z98.41 Cataract extraction status, right eye; Z95.1 Presence of aortocoronary bypass graft; Z96.1 Presence of intraocular lens; Z98.42 Cataract extraction status, left eye

== ENCOUNTER 2018-05-17 17:27 | Emergency (ER) | payer MEDICARE, MEDICAID ==
[2018-05-17 17:27] VITALS: BMI 32.8
[2018-05-17] MEDS ORDERED: Sodium Chloride 0.9% 1,000 ML IV SCH (18:00)
[2018-05-17 18:10] LABS: BASO % 0.4 % (0.0-2.0); EOS # 0.1 K/uL (0.0-0.7); EOS % 1.2 % (0.0-4.0); HEMOGLOBIN 11.7 g/dL (12.0-18.0); LYMPH # 1.7 K/uL (1.0-4.3); MEAN CORPUSCULAR HEMOGLOBIN 29.4 pg (27.0-31.0); MEAN CORPUSCULAR HGB CONC 31.6 g/dL (33.0-37.0); MEAN PLATELET VOLUME 11.2 fL (7.2-11.7); MONO # 0.5 K/uL (0.0-0.8); NEUT # 4.1 K/uL (1.8-7.0); NEUT % 63.4 % (50.0-75.0); RBC 3.98 Mil/uL (4.40-5.90); RED CELL DISTRIBUTION WIDTH 13.5 % (11.5-14.5); WHITE BLOOD COUNT 6.4 K/uL (4.8-10.8)
[2018-05-17 18:24] LABS: VENOUS BLOOD GAS BASE EXCESS 12.5 mmol/L (0.0-2.0); VENOUS BLOOD GAS PCO2 71 mmHg (40-60); VENOUS BLOOD GAS PO2 19 mm/Hg (30-55); VENOUS BLOOD PH 7.37 (7.32-7.43)
[2018-05-17 18:25] LABS: ALBUMIN 3.5 g/dL (3.5-5.0); ALT/SGPT 25 U/L (21-72); AST/SGOT 31 U/L (17-59); BLOOD UREA NITROGEN 50 mg/dL (9-20); CALCIUM 8.8 mg/dl (8.6-10.4); GFR AFRICAN-AMERICAN > 60; GFR NON-AFRICAN AMERICAN > 60
--- NOTE | 2018-05-17 18:29 | RAD ---
HISTORY: Sepsis Patient COMPARISON: 05/07/2018. FINDINGS: LUNGS: There are low lung volumes. The lungs are clear. PLEURA: No significant pleural effusion identified, no pneumothorax apparent. CARDIOVASCULAR: There is mild cardiomegaly. Status post CABG. OSSEOUS STRUCTURES: No significant abnormalities. VISUALIZED UPPER ABDOMEN: Normal. OTHER FINDINGS: None. IMPRESSION: No acute findings.
[2018-05-17 18:39] LABS: INR 1.1; PROTHROMBIN TIME 12.4 SECONDS (9.7-12.2)
[2018-05-17 19:35] LABS: URINE BACTERIA RARE (<OCC); URINE BILIRUBIN NEGATIVE (NEGATIVE); URINE BLOOD NEGATIVE (NEGATIVE); URINE CLARITY Hazy (Clear); URINE COLOR Yellow (YELLOW); URINE GLUCOSE (UA) 3+ mg/dL (Normal); URINE LEUKOCYTE ESTERASE 3+ Leu/uL (Negative); URINE PROTEIN 2+ mg/dL (NEGATIVE); URINE UROBILINOGEN NORMAL mg/dL (0.2-1.0); WBC CLUMPS MANY /hpf
[2018-05-17] MEDS ORDERED: (Novolin R) Insulin Human Regular 100 units/ml vial IV STA (19:58)
[2018-05-17 20:07] LABS: VENOUS BLOOD GAS BASE EXCESS 11.2 mmol/L (0.0-2.0); VENOUS BLOOD GAS PCO2 49 mmHg (40-60); VENOUS BLOOD GAS PO2 42 mm/Hg (30-55); VENOUS BLOOD PH 7.48 (7.32-7.43)
[2018-05-17] MEDS ORDERED: (Novolin R) Insulin Human Regular 100 units/ml vial ONE (20:09)
[2018-05-17 20:59] VITALS: BP 105/59; PULSE 76; RESP 20; TEMP 97.9; O2SAT 100
--- NOTE | 2018-05-17 21:13 | C.PDOC ---
History Of Present Illness 68 year old male is brought to the ED by ambulance after being sent from [facility] for evaluation of "change in mental status" noted today. As per [facility] documentation, patient was trying to pull out his tracheostomy and PEG tubes. As per daughter at bedside, patient recently had a stroke and is currently at baseline mental status. Patient offers no complaints secondary to stroke. Patient does not have documented fever. Time Seen by Provider: 05/17/18 17:34 Chief Complaint (Nursing): Altered Mental Status History Per: Patient, EMS, Family (daughter) History/Exam Limitations: None Onset/Duration Of Symptoms: Sudden Onset Onset Of Symptoms: Cannot Confirm Onset Current Symptoms Are (Timing): Still Present Exacerbating Factor(s): Unknown. denies: Fever Additional History Per: Patient, EMS, Family, Long Term Associated Symptoms: denies: Fever Past Medical History Reviewed: Historical Data, Nursing Documentation, Vital Signs Vital Signs: Last Vital Signs Temp 97.9 F 05/17/18 20:57 Pulse 76 05/17/18 20:57 Resp 20 05/17/18 20:57 BP 105/59 L 05/17/18 20:57 Pulse Ox 100 05/17/18 21:58 - Medical History PMH: COPD, HTN, Hypercholesterolemia Denies: Chronic Kidney Disease Surgical History: CABG - [facility] Procedures ASSISTANCE WITH RESPIRATORY VENTILATION, >96 HRS, CPAP (01/16/18) BYPASS TRACHEA TO CUTANEOUS WITH TRACH DEV, PERC APPROACH (01/16/18) CONTRAST AORTOGRAM (01/16/14) CONTRAST ARTERIOGRAM-LEG (01/16/14) FLUOROSCOPY OF AORTA, BI LE ART USING OTH CONTRAST (01/08/18) INSERTION OF ENDOTRACHEAL AIRWAY INTO TRACHEA, VIA OPENING (01/16/18) INSERTION OF FEEDING DEVICE INTO STOMACH, PERC APPROACH (01/16/18) INSERTION OF INTRALUM DEV INTO INF VENA CAVA, PERC APPROACH (01/16/18) INSPECTION OF UPPER INTESTINAL TRACT, ENDO (01/16/18) RESPIRATORY VENTILATION, GREATER THAN 96 CONSECUTIVE HOURS (01/16/18) Family History: States: No Known Family Hx - Social History Hx Alcohol Use: No Hx Substance Use: No - Immunization History Hx Tetanus Toxoid Vaccination: No Hx Influenza Vaccination: No Hx Pneumococcal Vaccination: No Review Of Systems Constitutional: Negative for: Fever Neurological: Positive for: Altered Mental Status Physical Exam - Physical Exam Appears: Non-toxic, No Acute Distress Skin: Normal Color, Warm, Dry Head: Atraumatic, Normacephalic Eye(s): bilateral: Normal Inspection Oral Mucosa: Moist Neck: Supple, Other (tracheostomy tube present. no discharge ) Chest: Symmetrical, No Deformity, No Tenderness Cardiovascular: Rhythm Regular, No Murmur Respiratory: Other (coarse breath sounds bilaterally ) Gastrointestinal/Abdominal: Bowel Sounds (good ), Soft, No Tenderness, No Guarding, No Rebound, Other (PEG tube in place ) Extremity: Normal ROM, Capillary Refill (less than 2 seconds ) Neurological/Psych: Other (baseline mental status (as per daughter at bedside)) ED Course And Treatment - Laboratory Results Result Diagrams: 05/17/18 18:07 05/17/18 18:07 O2 Sat by Pulse Oximetry: 100 (on RA) Pulse Ox Interpretation: Normal - Other Rad CXR X-Ray: Interpreted by Me, Viewed By Me, Read By Radiologist Interpretation: HISTORY: Sepsis Patient. COMPARISON: 05/07/2018. FINDINGS: LUNGS: There are low lung volumes. The lungs are clear. PLEURA: No significant pleural effusion identified, no pneumothorax apparent. CARDIOVASCULAR: There is mild cardiomegaly. Status post CABG. OSSEOUS STRUCTURES: No significant abnormalities. VISUALIZED UPPER ABDOMEN: Normal. OTHER FINDINGS: None. IMPRESSION: No acute findings. Medical Decision Making Medical Decision Making: Impression: 68 year old male with reported change in mental status Progress: Bloodwork, urinalysis, CXR, and EKG ordered and reviewed. IV Fluids given. Case discussed with Dr. Rose. Patient will receive Insulin due to hyperglycemia. On re-examination, patient is resting comfortably, showing no signs of distress and is stable to return to his [facility]. Rose agrees with plan. Disposition - Disposition Referrals: Arash Rose MD [Staff Provider] - Disposition: HOME/ ROUTINE Disposition Time: 20:00 Condition: GOOD Additional Instructions: DIANA TRIPLETT, thank you for letting us take care of you today. Your provider was Navin Fan DO. The emergency medical care you received today was directed at your acute symptoms. If you were prescribed any medication, please fill it and take as directed. It may take several days for your symptoms to resolve. Return to the Emergency Department if your symptoms worsen, do not improve, or if you have any other problems. Please contact your doctor or call one of the physicians/clinics you have been referred to that are listed on the Patient Visit Information form that is included in your discharge packet. Bring any paperwork you were given at discharge with you along with any medications you are taking to your follow up visit. Our treatment cannot replace ongoing medical care by a primary care provider outside of the emergency department. Thank you for allowing the [facility] team to be part of your care today. Patient will be followed up by Dr. Rose in [facility]. Instructions: Hyperglycemia, Adult (DC) Forms: [employer] (Gabonese) - Clinical Impression Clinical Impression: Hyperglycemia - Scribe Statement The provider has reviewed the documentation as recorded by the Scribe (Fifi Leroy) Provider Attestation: All medical record entries made by the Scribe were at my direction and personally dictated by me. I have reviewed the chart and agree that the record accurately reflects my personal performance of the history, physical exam, medical decision making, and the department course for this patient. I have also personally directed, reviewed, and agree with the discharge instructions and disposition.
== END 2018-05-17 23:16 ==
LOC: C.ER 17:27
DX: R73.9 Hyperglycemia, unspecified (principal); E78.00 Pure hypercholesterolemia, unspecified; I10 Essential (primary) hypertension; J44.9 Chronic obstructive pulmonary disease, unspecified
CPT/HCPCS: 71045; 80053; 81001; 82803; 82948; 83735; 84100; 85025; 85610; 85730; 87040; 87086; 96360; 99285; J7030

== ENCOUNTER 2018-05-18 13:34 | Inpatient (IN) | payer MEDICARE, MEDICAID ==
[2018-05-18 13:36] VITALS: BMI 32.8
--- NOTE | 2018-05-18 14:15 | C.PDOC ---
Chief Complaint (Nursing): Medical Clearance Past Medical History - Medical History PMH: COPD, HTN, Hypercholesterolemia Denies: Chronic Kidney Disease Surgical History: CABG - [facility] Procedures ASSISTANCE WITH RESPIRATORY VENTILATION, >96 HRS, CPAP (01/16/18) BYPASS TRACHEA TO CUTANEOUS WITH TRACH DEV, PERC APPROACH (01/16/18) CONTRAST AORTOGRAM (01/16/14) CONTRAST ARTERIOGRAM-LEG (01/16/14) FLUOROSCOPY OF AORTA, BI LE ART USING OTH CONTRAST (01/08/18) INSERTION OF ENDOTRACHEAL AIRWAY INTO TRACHEA, VIA OPENING (01/16/18) INSERTION OF FEEDING DEVICE INTO STOMACH, PERC APPROACH (01/16/18) INSERTION OF INTRALUM DEV INTO INF VENA CAVA, PERC APPROACH (01/16/18) INSPECTION OF UPPER INTESTINAL TRACT, ENDO (01/16/18) RESPIRATORY VENTILATION, GREATER THAN 96 CONSECUTIVE HOURS (01/16/18) - Social History Hx Alcohol Use: No Hx Substance Use: No - Immunization History Hx Tetanus Toxoid Vaccination: No Hx Influenza Vaccination: No Hx Pneumococcal Vaccination: No Disposition - Disposition
[2018-05-18] MEDS ORDERED: Iohexol 240 (50 ml) PO ONE (14:32)
[2018-05-18] MEDS ORDERED: Iohexol 240 (50 ml) ONE (14:46)
--- NOTE | 2018-05-18 14:54 | RAD ---
HISTORY: G-tube placement confirmation COMPARISON: No prior. FINDINGS: BOWEL: Patient's gastrostomy tube was injected with 50 cc of water-soluble contrast material by the nurse. Contrast material is seen within the stomach and proximal duodenum. There is no evidence of extravasation. No intraperitoneal contrast material is appreciated. The bowel gas pattern is grossly normal. A vena caval filter is noted. BONES: Normal. OTHER FINDINGS: None. IMPRESSION: Gastrostomy tube placement appears appropriate.
--- NOTE | 2018-05-18 17:09 | C.PDOC ---
History Of Present Illness 68 y/o male sent from long-term for "G tube malfunction". As per nursing staff 2 feedings did not flow freely and patient has history of stroke, non verbal at baseline. HPI limited secondary to patient's clinical condition. Chief Complaint (Nursing): Medical Clearance History Per: EMS History/Exam Limitations: clinical condition Onset/Duration Of Symptoms: Hrs Current Symptoms Are (Timing): Still Present Past Medical History Reviewed: Historical Data, Nursing Documentation, Vital Signs Vital Signs: Last Vital Signs Temp 99 F 05/18/18 19:15 Pulse 90 05/18/18 20:25 Resp 16 05/18/18 19:15 BP 176/79 H 05/18/18 20:28 Pulse Ox 100 05/18/18 19:15 - Medical History PMH: COPD, HTN, Hypercholesterolemia Surgical History: CABG - [facility] Procedures ASSISTANCE WITH RESPIRATORY VENTILATION, >96 HRS, CPAP (01/16/18) BYPASS TRACHEA TO CUTANEOUS WITH TRACH DEV, PERC APPROACH (01/16/18) CONTRAST AORTOGRAM (01/16/14) CONTRAST ARTERIOGRAM-LEG (01/16/14) FLUOROSCOPY OF AORTA, BI LE ART USING OTH CONTRAST (01/08/18) INSERTION OF ENDOTRACHEAL AIRWAY INTO TRACHEA, VIA OPENING (01/16/18) INSERTION OF FEEDING DEVICE INTO STOMACH, PERC APPROACH (01/16/18) INSERTION OF INTRALUM DEV INTO INF VENA CAVA, PERC APPROACH (01/16/18) INSPECTION OF UPPER INTESTINAL TRACT, ENDO (01/16/18) RESPIRATORY VENTILATION, GREATER THAN 96 CONSECUTIVE HOURS (01/16/18) Family History: States: No Known Family Hx - Social History Hx Alcohol Use: No Hx Substance Use: No - Immunization History Hx Tetanus Toxoid Vaccination: No Hx Influenza Vaccination: No Hx Pneumococcal Vaccination: No Review Of Systems Review Of Systems: ROS cannot be obtained secondary to pt's inabilty to answer questions. Physical Exam - Physical Exam Appears: No Acute Distress, Chronically Ill Skin: Warm, Dry, No Rash Head: Atraumatic, Normacephalic Eye(s): bilateral: Normal Inspection Oral Mucosa: Moist Neck: Other (trach collar) Cardiovascular: Rhythm Regular Respiratory: Decreased Breath Sounds, No Rales, No Rhonchi, No Wheezing Gastrointestinal/Abdominal: Soft, No Tenderness, No Guarding, No Rebound, Other (peg tube in place) Neurological/Psych: Oriented x3 ED Course And Treatment - Laboratory Results Result Diagrams: 05/18/18 21:16 05/18/18 21:16 O2 Sat by Pulse Oximetry: 100 (RA) Pulse Ox Interpretation: Normal - Other Rad Abdomen X-Ray: Viewed By Me, Read By Radiologist Interpretation: HISTORY: G-tube placement confirmation. COMPARISON: No prior. FINDINGS: BOWEL: Patient's gastrostomy tube was injected with 50 cc of water-soluble contrast material by the nurse. Contrast material is seen within the stomach and proximal duodenum. There is no evidence of extravasation. No intraperitoneal contrast material is appreciated. The bowel gas pattern is grossly normal. A vena caval filter is noted. BONES: Normal. OTHER FINDINGS: None. IMPRESSION: Gastrostomy tube placement appears appropriate. Progress Note: Flushed feeding tube with regular water, flowed freely. Xray ordered. Disposition - Disposition Disposition: HOSPITALIZED Disposition Time: 15:00 Condition: STABLE - Clinical Impression Clinical Impression: UTI (urinary tract infection) - Scribe Statement The provider has reviewed the documentation as recorded by the Catyibjc Soriano All medical record entries made by the Sultana were at my direction and personally dictated by me. I have reviewed the chart and agree that the record accurately reflects my personal performance of the history, physical exam, medical decision making, and the department course for this patient. I have also personally directed, reviewed, and agree with the discharge instructions and disposition.
[2018-05-18] MEDS ORDERED: ceFAZolin 1 gm in NS 1 GM/100 ML BAG IVPB ONE (17:36)
[2018-05-18] MEDS ORDERED: Magnesium Hydroxide Susp 30 ml UD GT PRN (18:43)
[2018-05-18 20:35] LABS: ARTERIAL BLOOD GAS HEMOGLOBIN 11.3 g/dL (11.7-17.4); ARTERIAL BLOOD GAS O2 SAT 97.5 % (95-98); ARTERIAL BLOOD GAS PCO2 60 mm/Hg (35-45); ARTERIAL BLOOD GAS PO2 73 mm/Hg (80-100)
--- NOTE | 2018-05-18 20:51 | PCM.RRT ---
<Stacey Arango E - Last Filed: 05/18/18 20:41> MEDICAL OFFICE CLERK Nurses Assessment - Situation Date: 05/18/18 Time MEDICAL OFFICE CLERK was called: 08:10 MEDICAL OFFICE CLERK Responder Arrival Time:: 08:10 MEDICAL OFFICE CLERK Location:: 6T Med/Surg MEDICAL OFFICE CLERK Called By: RN - Ventilator Settings Ventilator Respiratory Rate Settin Ventilator Tidal Volume Settin I.Reason for MEDICAL OFFICE CLERK - A) Acute Change in Patient: (Select all that apply): Acute change in mental status Subjective: Patient is a 68 y/o male with past medical history of IDDM, HTN, CAD s/p CABG 15 years ago, sent from [facility] for "G tube malfu:nction". MEDICAL OFFICE CLERK was called for decreased breathing/Unresponsive and skin color changes. Patient was noted to be unresponsive, decreased breathing. MEDICAL OFFICE CLERK was changed to code blue at 8: 11pm. Chest compression was initiated, pads were placed on patient. Carotid pulse and femoral pulse were palpable approximately 5 minutes of CPR. Epinephrine was ordered but not given. Patient was airway suctioned and patient resumed regular breathing and was more alert. Patient remained stable and was transferred to the ICU - Neurological Status (Select all that apply): Alert - Respiratory Oxygen Delivery Method: Trach Collar @% - Head Head Exam: ATRAUMATIC - Respiratory Exam Respiratory Exam: NORMAL BREATHING PATTERN Additional comments: With tracehostomy - GI/Abdominal Exam GI & Abdominal Exam: Soft, Normal Bowel Sounds - Neurological Exam Neurological Exam: Alert - Extremities Exam Extremities Exam: absent: Pedal Edema Plan - Assessment of Findings&Treatment Plan Transfer to ICU for close monitoring ABG Chest X-ray Suctioning of tracheostomy (possible mucus plug) PMD notified <Mj Leroy J - Last Filed: 05/18/18 21:44> MEDICAL OFFICE CLERK Nurses Assessment - Vital Signs Vital Signs: Rapid Response Vital Sign Blood Pressure 194/119 Pulse Rate 96 Temperature 99.2 F Oxygen Saturation 100 Attending/Attestation - Attestation I have personally seen and examined this patient.: Yes I have fully participated in the care of the patient.: Yes I have reviewed all pertinent clinical information, including history, physical exam and plan: Yes
[2018-05-18] MEDS ORDERED: Sodium Chloride 0.9% 1,000 ML IV ONE (21:11)
[2018-05-18] MEDS: Dexmedetomidine Hydrochloride 200 MCG in Sodium Chloride 0.9% 48 ML IV PRN ×2 (21:30→23:20)
--- NOTE | 2018-05-18 21:55 | CP.PCM.CON ---
History of Present Illness - History of Present Illness History of Present Illness: 68 y/o male admitted to [facility] for G-tube replacement. 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 Patient has trach and peg and not able to provide any history. limited ROS Past Patient History - Infectious Disease Hx of Infectious Diseases: None - Past Medical History & Family History Past Medical History?: Yes - Past Social History Smoking Status: Never Smoked - CARDIAC Hx Circulatory Problems: Yes Hx Hypercholesterolemia: Yes Hx Hypertension: Yes Hx Peripheral Vascular Disease: Yes - PULMONARY Hx Chronic Obstructive Pulmonary Disease (COPD): Yes - NEUROLOGICAL HX Cerebrovascular Accident: Yes - HEENT Hx HEENT Problems: Yes Hx Cataracts: Yes (bilateral cat ext with iol) - RENAL Hx Chronic Kidney Disease: No - ENDOCRINE/METABOLIC Hx Diabetes Mellitus Type 2: Yes - HEMATOLOGICAL/ONCOLOGICAL Hx Blood Disorders: No - INTEGUMENTARY Hx Dermatological Problems: Yes Other/Comment: small ulcers both great toes. bilateral lower ext scratches ( scabs), discolored brownish looking. - MUSCULOSKELETAL/RHEUMATOLOGICAL Hx Falls: No - GASTROINTESTINAL Hx Gastrointestinal Disorders: Yes Other/Comment: Peg tube feeder. - GENITOURINARY/GYNECOLOGICAL Hx Genitourinary Disorders: No - PSYCHIATRIC Hx Substance Use: No - SURGICAL HISTORY Hx Coronary Artery Bypass Graft: Yes - ANESTHESIA Hx Anesthesia: Yes Hx Anesthesia Reactions: No Hx Malignant Hyperthermia: No Meds Allergies/Adverse Reactions: Allergies Allergy/AdvReac Type Severity Reaction Status Date / Time No Known Allergies Allergy Verified 05/17/18 17:43 - Medications Medications: Current Medications Albuterol/Ipratropium (Duoneb 3 Mg/0.5 Mg (3 Ml) Ud) 3 ml INH RQ6 [facility] Ascorbic Acid (Vitamin C 250 Mg Tab) 250 mg GT DAILY [facility] Aspirin (Aspirin Chewable) 81 mg GT DAILY [facility] Carvedilol (Coreg) 12.5 mg GT BID [facility] Enoxaparin Sodium (Lovenox) 40 mg SC DAILY [facility] Ferrous Sulfate (Feosol Liq) 300 mg PO DAILY [facility] Haloperidol Lactate (Haldol) 1 mg IM Q6 PRN PRN Reason: Agitation Ceftriaxone Sodium 1 gm/ (Sodium Chloride) 100 mls @ 100 mls/hr IVPB DAILY [facility] PRN Reason: Protocol Sodium Chloride (Sodium Chloride 0.9%) 1,000 mls @ 1,000 mls/hr IV .Q1H ONE Stop: 05/18/18 22:10 Dexmedetomidine HCl 200 mcg/ (Sodium Chloride) 50 mls @ 3.4 mls/hr IV TITR PRN ; Protocol; 0.2 MCG/KG/HR PRN Reason: Sedation Piperacillin Sod/Tazobactam Sod (Zosyn 3.375 Gm Iv Premix) 3.375 gm in 50 mls @ 100 mls/hr IVPB Q6H [facility] PRN Reason: Protocol Vancomycin/Sodium Chloride (Vancomycin 1 Gm/Ns 200 Ml) 1 gm in 200 mls @ 167 mls/hr IVPB Q24H [facility] PRN Reason: Protocol Stop: 05/23/18 22:01 Insulin Aspart (Novolog) 0 unit SC ACHS [facility] PRN Reason: Protocol Insulin Detemir (Levemir) 30 unit SC Q12 [facility] Levetiracetam (Keppra) 500 mg GT Q12H [facility] Magnesium Hydroxide (Milk Of Magnesia) 30 ml GT Q24H PRN PRN Reason: Constipation Multivitamins/Vitamin C (Multi-Delyn Liquid) 5 ml GT DAILY [facility] Pantoprazole Sodium (Protonix Susp) 40 mg PEG 1000 [facility]INE Tamsulosin HCl (Flomax) 0.4 mg PEG DAILY [facility] Valproate Sodium (Depakene Oral Soln) 500 mg GT Q12H [facility] Zinc Sulfate (Zinc Sulfate 220 Mg Cap) 220 mg GT DAILY [facility] Physical Exam - Head Exam Head Exam: ATRAUMATIC - Eye Exam Pupil Exam: NORMAL ACCOMODATION - ENT Exam ENT Exam: Mucous Membranes Moist - Respiratory Exam Respiratory Exam: Rhonchi, NORMAL BREATHING PATTERN. absent: Wheezes, Respiratory Distress - Cardiovascular Exam Cardiovascular Exam: REGULAR RHYTHM, +S1, +S2 - GI/Abdominal Exam GI & Abdominal Exam: Normal Bowel Sounds, Soft Additional comments: PEG - Extremities Exam Extremities exam: Positive for: normal inspection - Neurological Exam Neurological exam: Altered - Skin Skin Exam: Normal Color Results - Vital Signs Recent Vital Signs: Last Vital Signs Temp 99 F 05/18/18 19:15 Pulse 90 05/18/18 20:25 Resp 16 05/18/18 19:15 BP 176/79 H 05/18/18 20:28 Pulse Ox 100 05/18/18 19:15 - Labs Result Diagrams: 05/18/18 21:16 05/18/18 21:16 Labs: Laboratory Results - last 24 hr 05/18/18 05/18/18 05/18/18 14:10 20:17 20:31 Puncture Site Rba pCO2 60 H pO2 73 L HCO3 33.0 H ABG pH 7.40 ABG Total CO2 39.0 H ABG O2 Saturation 97.5 ABG Base Excess 10.4 H ABG Hemoglobin 11.3 L ABG Carboxyhemoglobin 2.4 H POC ABG HHb (Measured) 2.4 ABG Methemoglobin 1.1 Jamey Test Na A-a O2 Difference 137.0 Respiratory Index 1.9 Hgb O2 Saturation 94.1 L FiO2 40.0 POC Glucose (mg/dL) 280 H 168 H Assessment & Plan - Assessment and Plan (Free Text) Assessment: Cardiac arrest: exact cause unknown: check trop, ck, EKG and echo, monitor to keep MAP >65 -Aspiration: significant secretions from trach site, send for culture, lactic serial , cxr and start vanco/zosyn, roberts culture -PEG tube: will obtain CT [email or web address] to evaluate placement into stomach and start tube feeds -continue ventilation via trach: Vt 500, rr 20, peep 5, titrate fiO2 to keep spo2 >92 and pH b/w 7.35-7.45 -Hypernetremia: contineu with free water -BGm q6hrs ,aspart ISS continue dvt/pud ppx baseline mental status unknown. continue to monitor in ICU. cc time 35 minutes - Date & Time Date: 05/18/18 Time: 21:55
[2018-05-18] MEDS ORDERED: (Novolog) Insulin Aspart, Recombinant 100 u/ml 10 ml vial SC SCH (22:00)
[2018-05-18 22:07] LABS: BASO % 0.3 % (0.0-2.0); EOS # 0.1 K/uL (0.0-0.7); LYMPH # 1.7 K/uL (1.0-4.3); LYMPH % 23.3 % (20.0-40.0); MEAN CELL VOLUME 92.2 fL (80.0-94.0); MEAN CORPUSCULAR HEMOGLOBIN 29.9 pg (27.0-31.0); MEAN CORPUSCULAR HGB CONC 32.4 g/dL (33.0-37.0); MEAN PLATELET VOLUME 11.2 fL (7.2-11.7); MONO # 0.6 K/uL (0.0-0.8); MONO % 8.6 % (0.0-10.0); NEUT # 4.9 K/uL (1.8-7.0); NEUT % 66.8 % (50.0-75.0); RBC 3.68 Mil/uL (4.40-5.90); RED CELL DISTRIBUTION WIDTH 13.5 % (11.5-14.5); WHITE BLOOD COUNT 7.3 K/uL (4.8-10.8)
[2018-05-18 22:29] LABS: ALBUMIN 3.3 g/dL (3.5-5.0); ALT/SGPT 26 U/L (21-72); AST/SGOT 41 U/L (17-59); BLOOD UREA NITROGEN 41 mg/dL (9-20); CALCIUM 8.8 mg/dl (8.6-10.4); GFR AFRICAN-AMERICAN > 60; GFR NON-AFRICAN AMERICAN > 60
--- NOTE | 2018-05-18 23:13 | CP.PCM.HP ---
History of Present Illness - History of Present Illness History of Present Illness: 68 y/o male admitted to [facility] for G-tube replacement. 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 Patient has trach and peg and not able to provide any history. limited ROS Past Patient History - Infectious Disease Hx of Infectious Diseases: None - Past Medical History & Family History Past Medical History?: Yes - Past Social History Smoking Status: Never Smoked - CARDIAC Hx Circulatory Problems: Yes Hx Hypercholesterolemia: Yes Hx Hypertension: Yes Hx Peripheral Vascular Disease: Yes - PULMONARY Hx Chronic Obstructive Pulmonary Disease (COPD): Yes - NEUROLOGICAL HX Cerebrovascular Accident: Yes - HEENT Hx HEENT Problems: Yes Hx Cataracts: Yes (bilateral cat ext with iol) - RENAL Hx Chronic Kidney Disease: No - ENDOCRINE/METABOLIC Hx Diabetes Mellitus Type 2: Yes - HEMATOLOGICAL/ONCOLOGICAL Hx Blood Disorders: No - INTEGUMENTARY Hx Dermatological Problems: Yes Other/Comment: small ulcers both great toes. bilateral lower ext scratches ( scabs), discolored brownish looking. - MUSCULOSKELETAL/RHEUMATOLOGICAL Hx Falls: No - GASTROINTESTINAL Hx Gastrointestinal Disorders: Yes Other/Comment: Peg tube feeder. - GENITOURINARY/GYNECOLOGICAL Hx Genitourinary Disorders: No - PSYCHIATRIC Hx Substance Use: No - SURGICAL HISTORY Hx Coronary Artery Bypass Graft: Yes - ANESTHESIA Hx Anesthesia: Yes Hx Anesthesia Reactions: No Hx Malignant Hyperthermia: No Meds Allergies/Adverse Reactions: Allergies Allergy/AdvReac Type Severity Reaction Status Date / Time No Known Allergies Allergy Verified 05/17/18 17:43 Results - Vital Signs Recent Vital Signs: Last Vital Signs Temp 99 F 05/18/18 19:15 Pulse 90 05/18/18 20:25 Resp 16 05/18/18 19:15 BP 176/79 H 05/18/18 20:28 Pulse Ox 100 05/18/18 19:15 - Labs Result Diagrams: 05/18/18 21:16 05/18/18 21:16 Labs: Laboratory Results - last 24 hr 05/18/18 05/18/18 05/18/18 14:10 20:17 20:31 WBC RBC Hgb Hct MCV MCH MCHC RDW Plt Count MPV Neut % (Auto) Lymph % (Auto) Bates % (Auto) Eos % (Auto) Baso % (Auto) Neut # (Auto) Lymph # (Auto) Bates # (Auto) Eos # (Auto) Baso # (Auto) Puncture Site Rba pCO2 60 H pO2 73 L HCO3 33.0 H ABG pH 7.40 ABG Total CO2 39.0 H ABG O2 Saturation 97.5 ABG Base Excess 10.4 H ABG Hemoglobin 11.3 L ABG Carboxyhemoglobin 2.4 H POC ABG HHb (Measured) 2.4 ABG Methemoglobin 1.1 Jamey Test Na A-a O2 Difference 137.0 Respiratory Index 1.9 Hgb O2 Saturation 94.1 L FiO2 40.0 Sodium Potassium Chloride Carbon Dioxide Anion Gap BUN Creatinine Est GFR ( Amer) Est GFR (Non-Af Amer) POC Glucose (mg/dL) 280 H 168 H Random Glucose Lactic Acid Calcium Phosphorus Magnesium Total Bilirubin AST ALT Alkaline Phosphatase Ammonia Troponin I Total Protein Albumin Globulin Albumin/Globulin Ratio Valproic Acid 05/18/18 05/18/18 05/18/18 21:16 21:16 21:16 WBC 7.3 RBC 3.68 L Hgb 11.0 L Hct 34.0 L MCV 92.2 MCH 29.9 MCHC 32.4 L RDW 13.5 Plt Count 298 MPV 11.2 Neut % (Auto) 66.8 Lymph % (Auto) 23.3 Bates % (Auto) 8.6 Eos % (Auto) 1.0 Baso % (Auto) 0.3 Neut # (Auto) 4.9 Lymph # (Auto) 1.7 Bates # (Auto) 0.6 Eos # (Auto) 0.1 Baso # (Auto) 0.0 Puncture Site pCO2 pO2 HCO3 ABG pH ABG Total CO2 ABG O2 Saturation ABG Base Excess ABG Hemoglobin ABG Carboxyhemoglobin POC ABG HHb (Measured) ABG Methemoglobin Jamey Test A-a O2 Difference Respiratory Index Hgb O2 Saturation FiO2 Sodium 149 H Potassium 4.1 Chloride 108 H Carbon Dioxide 32 H Anion Gap 14 BUN 41 H Creatinine 1.1 Est GFR ( Amer) > 60 Est GFR (Non-Af Amer) > 60 POC Glucose (mg/dL) Random Glucose 200 H Lactic Acid 1.0 Calcium 8.8 Phosphorus 3.5 Magnesium 2.4 H Total Bilirubin 0.4 AST 41 ALT 26 Alkaline Phosphatase 98 Ammonia Troponin I 0.0390 Total Protein 6.6 Albumin 3.3 L Globulin 3.4 Albumin/Globulin Ratio 1.0 Valproic Acid 05/18/18 05/18/18 05/18/18 21:16 21:16 23:09 WBC RBC Hgb Hct MCV MCH MCHC RDW Plt Count MPV Neut % (Auto) Lymph % (Auto) Bates % (Auto) Eos % (Auto) Baso % (Auto) Neut # (Auto) Lymph # (Auto) Bates # (Auto) Eos # (Auto) Baso # (Auto) Puncture Site pCO2 pO2 HCO3 ABG pH ABG Total CO2 ABG O2 Saturation ABG Base Excess ABG Hemoglobin ABG Carboxyhemoglobin POC ABG HHb (Measured) ABG Methemoglobin Jamey Test A-a O2 Difference Respiratory Index Hgb O2 Saturation FiO2 Sodium Potassium Chloride Carbon Dioxide Anion Gap BUN Creatinine Est GFR ( Amer) Est GFR (Non-Af Amer) POC Glucose (mg/dL) 237 H Random Glucose Lactic Acid Calcium Phosphorus Magnesium Total Bilirubin AST ALT Alkaline Phosphatase Ammonia 11 Troponin I Total Protein Albumin Globulin Albumin/Globulin Ratio Valproic Acid 10.7 L
[2018-05-18] MEDS: Vancomycin 1 gm/NS 200 ml 1 GM/200 ML BAG IVPB SCH (23:15)
[2018-05-18] MEDS: Piperacill/Tazo 3.375gm in Dex 3.375 GM/50 ML BAG IVPB SCH (23:15)
[2018-05-18] MEDS: Insulin Detemir 100 units/ml Vial (Levemir) SC SCH (23:18)
[2018-05-19] MEDS: Albuterol-Ipratrop 3 mg / 0.5 (3 ml) UD INH SCH ×4 (01:19→19:21)
[2018-05-19] MEDS: Sodium Chloride 0.9% 1,000 ML IV SCH ×3 (01:30→21:38)
[2018-05-19] MEDS: Piperacill/Tazo 3.375gm in Dex 3.375 GM/50 ML BAG IVPB SCH ×4 (03:52→21:36)
[2018-05-19 05:58] LABS: ARTERIAL BLOOD GAS HCO3 31.6 mmol/L (21-28); ARTERIAL BLOOD GAS HEMOGLOBIN 10.7 g/dL (11.7-17.4); ARTERIAL BLOOD GAS O2 SAT 99.7 % (95-98); ARTERIAL BLOOD GAS PCO2 37 mm/Hg (35-45); ARTERIAL BLOOD GAS PH 7.54 (7.35-7.45); ARTERIAL BLOOD GAS PO2 128 mm/Hg (80-100); ARTERIAL BLOOD GAS TCO2 32.7 mmol/L (22-28)
[2018-05-19] MEDS: Valproic Acid 250 mg/5 ml UD Cup GT SCH ×2 (06:49→19:00)
[2018-05-19] MEDS: levETIRAcetam 100 mg/ml (5ml) Oral Syringe GT SCH ×2 (06:50→18:59)
[2018-05-19] MEDS: (Novolog) Insulin Aspart, Recombinant 100 u/ml 10 ml vial SC SCH ×4 (06:50→23:47)
[2018-05-19 09:05] LABS: SQUAMOUS EPITHIAL 1 /hpf (0-5); URINE BILIRUBIN NEGATIVE (NEGATIVE); URINE BLOOD NEGATIVE (NEGATIVE); URINE CLARITY Hazy (Clear); URINE COLOR Yellow (YELLOW); URINE GLUCOSE (UA) 2+ mg/dL (Normal); URINE LEUKOCYTE ESTERASE 3+ Leu/uL (Negative); URINE PROTEIN 2+ mg/dL (NEGATIVE); URINE UROBILINOGEN NORMAL mg/dL (0.2-1.0); WBC CLUMPS MANY /hpf
[2018-05-19] MEDS: Enoxaparin 40 mg Syringe SC SCH (11:00)
[2018-05-19] MEDS: Pantoprazole 40 mg Susp UD PEG SCH (11:00)
[2018-05-19] MEDS: Ferrous Sulfate 300 mg/5 mL Liq UD PO SCH (11:00)
[2018-05-19] MEDS: Multiple Vitamins Oral Solution GT SCH (11:00)
[2018-05-19] MEDS: Insulin Detemir 100 units/ml Vial (Levemir) SC SCH (11:00)
[2018-05-19] MEDS: Dexmedetomidine Hydrochloride 200 MCG in Sodium Chloride 0.9% 48 ML IV PRN ×2 (12:06→21:38)
--- NOTE | 2018-05-19 12:06 | RAD ---
HISTORY: Aspiration COMPARISON: Comparison chest 05/17/2018. FINDINGS: Study is limited due to patient rotation to the right side. In situ tracheostomy tube in good position. LUNGS: Low lung volumes, crowded bronchovascular markings and minor left basilar atelectasis. PLEURA: No significant pleural effusion identified, no pneumothorax apparent. CARDIOVASCULAR: Sternotomy wires and CABG clips again noted. Cardiomegaly. . OSSEOUS STRUCTURES: No significant abnormalities. VISUALIZED UPPER ABDOMEN: Normal. OTHER FINDINGS: None. IMPRESSION: Low lung volumes, crowded bronchovascular markings and minor left basilar atelectasis.
--- NOTE | 2018-05-19 13:28 | CP.CCUPN ---
CCU Subjective - Physician Review Events Since Last Encounter (Free Text): Patient seen and examined in the intensive care unit. 68 y/o male with past medical history of IDDM, HTN, CAD s/p CABG 15 years ago, sent from custodial for "G tube malfu:nction". SEAM RUBBER was called for decreased breathing/Unresponsive and skin color changes. Patient was noted to be unresponsive, decreased breathing. SEAM RUBBER was changed to code blue at 8:11pm yesterday. CPR started , Carotid pulse and femoral pulse palpable approximately 5 minutes of CPR. Patient was airway suctioned and patient resumed regular breathing and was more alert. Patient was transferred to the ICU Patient on Precedex Very restless and agitated Hemodynamically stable Afebrile CCU Objective - Vital Signs / Intake & Output Vital Signs (Last 4 hours): Vital Signs BP 05/19/18 11:15 143/54 L Intake and Output (Last 8hrs): Intake & Output 05/18/18 05/19/18 05/19/18 22:59 06:59 14:59 Intake Total 1046 955 315 Output Total 150 300 0 Balance 896 655 315 Weight 151 lb Intake: IV 50 15 Intake, IV Amount 1046 905 300 Left Antecubital 1000 250 Right Wrist 46 655 300 Output: Urine 150 300 Condom 150 300 Stool 0 Emesis 0 - Physical Exam Head: Positive for: Atraumatic, Normocephalic Respiratory/Chest: Positive for: Clear to Auscultation Cardiovascular: Positive for: Regular Rate and Rhythm Abdomen: Positive for: Normal Bowel Sounds Upper Extremity: Positive for: Normal Inspection Lower Extremity: Positive for: Normal Inspection - Medications Active Medications: Active Medications Generic Name Dose Route Start Last Admin Trade Name Freq PRN Reason Stop Dose Admin Albuterol/Ipratropium 3 ml 05/18/18 20:00 05/19/18 07:19 Duoneb 3 Mg/0.5 Mg (3 Ml) Ud INH 3 ml RQ6 SHINE Administration Ascorbic Acid 250 mg 05/19/18 10:00 05/19/18 11:00 Vitamin C 250 Mg Tab GT 250 mg DAILY SHINE Administration Aspirin 81 mg 05/19/18 10:00 05/19/18 11:00 Aspirin Chewable GT 81 mg DAILY SHINE Administration Carvedilol 12.5 mg 05/18/18 18:45 05/19/18 11:15 Coreg GT 12.5 mg BID SHINE Administration Enoxaparin Sodium 40 mg 05/19/18 10:00 05/19/18 11:00 Lovenox SC 40 mg DAILY SHINE Administration Ferrous Sulfate 300 mg 05/19/18 10:00 05/19/18 11:00 Feosol Liq PO 300 mg DAILY SHINE Administration Haloperidol Lactate 1 mg 05/18/18 22:00 05/18/18 22:03 Haldol IM 1 mg Q6H PRN Administration Agitation Dexmedetomidine HCl 200 mcg/ 50 mls @ 3.4 mls/hr 05/18/18 21:15 05/19/18 07: 36 Sodium Chloride IV 0.2 mcg/kg/hr TITR PRN 3.4 mls/hr Sedation Titration Protocol 0.2 MCG/KG/HR Piperacillin Sod/Tazobactam Sod 3.375 gm in 50 mls @ 100 mls/hr 05/18/18 22: 00 05/19/18 11:00 Zosyn 3.375 Gm Iv Premix IVPB 100 mls/hr Q6H SHINE Administration Protocol Vancomycin/Sodium Chloride 1 gm in 200 mls @ 167 mls/hr 05/18/18 22:00 23:15 Vancomycin 1 Gm/Ns 200 Ml IVPB 05/23/18 22:01 167 mls/hr Q24H SHINE Administration Protocol Sodium Chloride 1,000 mls @ 100 mls/hr 05/19/18 01:30 05/19/18 01:30 Sodium Chloride 0.9% IV 100 mls/hr .Q10H SHINE Administration Insulin Aspart 0 unit 05/19/18 06:00 05/19/18 06:50 Novolog SC 2 units Q6 SHINE Administration Protocol Insulin Detemir 30 unit 05/18/18 22:00 05/19/18 11:00 Levemir SC 30 units Q12 SHINE Administration Levetiracetam 500 mg 05/18/18 18:45 05/19/18 06:50 Keppra GT 500 mg Q12H SHINE Administration Magnesium Hydroxide 30 ml 05/18/18 18:43 Milk Of Magnesia GT Q24H PRN Constipation Multivitamins/Vitamin C 5 ml 05/19/18 10:00 05/19/18 11:00 Multi-Delyn Liquid GT 5 ml DAILY SHINE Administration Pantoprazole Sodium 40 mg 05/19/18 10:00 05/19/18 11:00 Protonix Susp PEG 40 mg 1000 SHINE Administration Tamsulosin HCl 0.4 mg 05/19/18 10:00 05/19/18 11:00 Flomax PEG 0.4 mg DAILY SHINE Administration Valproate Sodium 500 mg 05/18/18 18:45 05/19/18 06:49 Depakene Oral Soln GT 500 mg Q12H SHINE Administration Zinc Sulfate 220 mg 05/19/18 10:00 05/19/18 11:00 Zinc Sulfate 220 Mg Cap GT 220 mg DAILY SHINE Administration - Patient Studies Lab Studies: Lab Studies 05/19/18 05/19/18 05/19/18 Range/Units 12:57 11:38 08:03 WBC (4.8-10.8) K/uL RBC (4.40-5.90) Mil/uL Hgb (12.0-18.0) g/dL Hct (35.0-51.0) % MCV (80.0-94.0) fL MCH (27.0-31.0) pg MCHC (33.0-37.0) g/dL RDW (11.5-14.5) % Plt Count (130-400) K/uL MPV (7.2-11.7) fL Neut % (Auto) (50.0-75.0) % Lymph % (Auto) (20.0-40.0) % [place] % (Auto) (0.0-10.0) % Eos % (Auto) (0.0-4.0) % Baso % (Auto) (0.0-2.0) % Neut # (Auto) (1.8-7.0) K/uL Lymph # (Auto) (1.0-4.3) K/uL [place] # (Auto) (0.0-0.8) K/uL Eos # (Auto) (0.0-0.7) K/uL Baso # (Auto) (0.0-0.2) K/uL Puncture Site pCO2 (35-45) mm/Hg pO2 (80-100) mm/Hg HCO3 (21-28) mmol/L ABG pH (7.35-7.45) ABG Total CO2 (22-28) mmol/L ABG O2 Saturation (95-98) % ABG Base Excess (-2.0-3.0) mmol/L ABG Hemoglobin (11.7-17.4) g/dL ABG Carboxyhemoglobin (0.5-1.5) % POC ABG HHb (Measured) (0.0-5.0) % ABG Methemoglobin (0.0-3.0) % Jamey Test A-a O2 Difference mm/Hg Respiratory Index Hgb O2 Saturation (95.0-98.0) % Vent Mode Mechanical Rate FiO2 % Tidal Volume PEEP Sodium (132-148) mmol/L Potassium (3.6-5.2) mmol/L Chloride (98-107) mmol/L Carbon Dioxide (22-30) mmol/L Anion Gap (10-20) BUN (9-20) mg/dL Creatinine (0.8-1.5) mg/dL Est GFR ( Amer) Est GFR (Non-Af Amer) POC Glucose (mg/dL) 118 H (65-110) mg/dL Random Glucose (75-110) mg/dL Lactic Acid 2.3 H (0.7-2.1) mmol/L Calcium (8.6-10.4) mg/dl Phosphorus (2.5-4.5) mg/dL Magnesium (1.6-2.3) mg/dL Total Bilirubin (0.2-1.3) mg/dL AST (17-59) U/L ALT (21-72) U/L Alkaline Phosphatase (38-126) U/L Ammonia (9-33) umol/L Troponin I (0.00-0.120) ng/mL Total Protein (6.3-8.3) g/dL Albumin (3.5-5.0) g/dL Globulin (2.2-3.9) gm/dL Albumin/Globulin Ratio (1.0-2.1) Urine Color Yellow (YELLOW) Urine Clarity Hazy (Clear) Urine pH 7.0 (5.0-8.0) Ur Specific [place] 1.019 (1.003-1.030) Urine Protein 2+ H (NEGATIVE) mg/dL Urine Glucose (UA) 2+ H (Normal) mg/dL Urine Ketones Trace (NEGATIVE) mg/dL Urine Blood Negative (NEGATIVE) Urine Nitrate Negative (NEGATIVE) Urine Bilirubin Negative (NEGATIVE) Urine Urobilinogen Normal (0.2-1.0) mg/dL Ur Leukocyte Esterase 3+ H (Negative) Minh/uL Urine WBC (Auto) 690 H (0-5) /hpf Urine RBC (Auto) 7 H (0-3) /hpf Urine WBC Clumps (Auto) Many H (NONE) /hpf Ur Squamous Epith Cells 1 (0-5) /hpf Hyaline Casts 3-5 H (0-2) /lpf Valproic Acid (50.0-100.0) ug/mL 05/19/18 05/19/18 05/19/18 Range/Units 06:40 06:33 05:42 WBC (4.8-10.8) K/uL RBC (4.40-5.90) Mil/uL Hgb (12.0-18.0) g/dL Hct (35.0-51.0) % MCV (80.0-94.0) fL MCH (27.0-31.0) pg MCHC (33.0-37.0) g/dL RDW (11.5-14.5) % Plt Count (130-400) K/uL MPV (7.2-11.7) fL Neut % (Auto) (50.0-75.0) % Lymph % (Auto) (20.0-40.0) % [place] % (Auto) (0.0-10.0) % Eos % (Auto) (0.0-4.0) % Baso % (Auto) (0.0-2.0) % Neut # (Auto) (1.8-7.0) K/uL Lymph # (Auto) (1.0-4.3) K/uL [place] # (Auto) (0.0-0.8) K/uL Eos # (Auto) (0.0-0.7) K/uL Baso # (Auto) (0.0-0.2) K/uL Puncture Site pCO2 (35-45) mm/Hg pO2 (80-100) mm/Hg HCO3 (21-28) mmol/L ABG pH (7.35-7.45) ABG Total CO2 (22-28) mmol/L ABG O2 Saturation (95-98) % ABG Base Excess (-2.0-3.0) mmol/L ABG Hemoglobin (11.7-17.4) g/dL ABG Carboxyhemoglobin (0.5-1.5) % POC ABG HHb (Measured) (0.0-5.0) % ABG Methemoglobin (0.0-3.0) % Jamey Test A-a O2 Difference mm/Hg Respiratory Index Hgb O2 Saturation (95.0-98.0) % Vent Mode Mechanical Rate FiO2 % Tidal Volume PEEP Sodium (132-148) mmol/L Potassium (3.6-5.2) mmol/L Chloride (98-107) mmol/L Carbon Dioxide (22-30) mmol/L Anion Gap (10-20) BUN (9-20) mg/dL Creatinine (0.8-1.5) mg/dL Est GFR ( Amer) Est GFR (Non-Af Amer) POC Glucose (mg/dL) 197 H (65-110) mg/dL Random Glucose (75-110) mg/dL Lactic Acid 2.2 H (0.7-2.1) mmol/L Calcium (8.6-10.4) mg/dl Phosphorus (2.5-4.5) mg/dL Magnesium (1.6-2.3) mg/dL Total Bilirubin (0.2-1.3) mg/dL AST (17-59) U/L ALT (21-72) U/L Alkaline Phosphatase (38-126) U/L Ammonia (9-33) umol/L Troponin I 0.0500 (0.00-0.120) ng/mL Total Protein (6.3-8.3) g/dL Albumin (3.5-5.0) g/dL Globulin (2.2-3.9) gm/dL Albumin/Globulin Ratio (1.0-2.1) Urine Color (YELLOW) Urine Clarity (Clear) Urine pH (5.0-8.0) Ur Specific [place] (1.003-1.030) Urine Protein (NEGATIVE) mg/dL Urine Glucose (UA) (Normal) mg/dL Urine Ketones (NEGATIVE) mg/dL Urine Blood (NEGATIVE) Urine Nitrate (NEGATIVE) Urine Bilirubin (NEGATIVE) Urine Urobilinogen (0.2-1.0) mg/dL Ur Leukocyte Esterase (Negative) Minh/uL Urine WBC (Auto) (0-5) /hpf Urine RBC (Auto) (0-3) /hpf Urine WBC Clumps (Auto) (NONE) /hpf Ur Squamous Epith Cells (0-5) /hpf Hyaline Casts (0-2) /lpf Valproic Acid (50.0-100.0) ug/mL 05/19/18 05/19/18 05/18/18 Range/Units 05:33 00:46 23:09 WBC (4.8-10.8) K/uL RBC (4.40-5.90) Mil/uL Hgb (12.0-18.0) g/dL Hct (35.0-51.0) % MCV (80.0-94.0) fL MCH (27.0-31.0) pg MCHC (33.0-37.0) g/dL RDW (11.5-14.5) % Plt Count (130-400) K/uL MPV (7.2-11.7) fL Neut % (Auto) (50.0-75.0) % Lymph % (Auto) (20.0-40.0) % [place] % (Auto) (0.0-10.0) % Eos % (Auto) (0.0-4.0) % Baso % (Auto) (0.0-2.0) % Neut # (Auto) (1.8-7.0) K/uL Lymph # (Auto) (1.0-4.3) K/uL [place] # (Auto) (0.0-0.8) K/uL Eos # (Auto) (0.0-0.7) K/uL Baso # (Auto) (0.0-0.2) K/uL Puncture Site R brac pCO2 37 (35-45) mm/Hg pO2 128 H (80-100) mm/Hg HCO3 31.6 H (21-28) mmol/L ABG pH 7.54 H (7.35-7.45) ABG Total CO2 32.7 H (22-28) mmol/L ABG O2 Saturation 99.7 H (95-98) % ABG Base Excess 8.5 H (-2.0-3.0) mmol/L ABG Hemoglobin 10.7 L (11.7-17.4) g/dL ABG Carboxyhemoglobin 1.8 H (0.5-1.5) % POC ABG HHb (Measured) 0.3 (0.0-5.0) % ABG Methemoglobin 1.1 (0.0-3.0) % Jamey Test Na A-a O2 Difference 111.0 mm/Hg Respiratory Index 0.9 Hgb O2 Saturation 96.8 (95.0-98.0) % Vent Mode Prvc Mechanical Rate 18 FiO2 40.0 % Tidal Volume 500 PEEP 5 Sodium (132-148) mmol/L Potassium (3.6-5.2) mmol/L Chloride (98-107) mmol/L Carbon Dioxide (22-30) mmol/L Anion Gap (10-20) BUN (9-20) mg/dL Creatinine (0.8-1.5) mg/dL Est GFR ( Amer) Est GFR (Non-Af Amer) POC Glucose (mg/dL) 237 H (65-110) mg/dL Random Glucose (75-110) mg/dL Lactic Acid 1.5 (0.7-2.1) mmol/L Calcium (8.6-10.4) mg/dl Phosphorus (2.5-4.5) mg/dL Magnesium (1.6-2.3) mg/dL Total Bilirubin (0.2-1.3) mg/dL AST (17-59) U/L ALT (21-72) U/L Alkaline Phosphatase (38-126) U/L Ammonia (9-33) umol/L Troponin I (0.00-0.120) ng/mL Total Protein (6.3-8.3) g/dL Albumin (3.5-5.0) g/dL Globulin (2.2-3.9) gm/dL Albumin/Globulin Ratio (1.0-2.1) Urine Color (YELLOW) Urine Clarity (Clear) Urine pH (5.0-8.0) Ur Specific [place] (1.003-1.030) Urine Protein (NEGATIVE) mg/dL Urine Glucose (UA) (Normal) mg/dL Urine Ketones (NEGATIVE) mg/dL Urine Blood (NEGATIVE) Urine Nitrate (NEGATIVE) Urine Bilirubin (NEGATIVE) Urine Urobilinogen (0.2-1.0) mg/dL Ur Leukocyte Esterase (Negative) Minh/uL Urine WBC (Auto) (0-5) /hpf Urine RBC (Auto) (0-3) /hpf Urine WBC Clumps (Auto) (NONE) /hpf Ur Squamous Epith Cells (0-5) /hpf Hyaline Casts (0-2) /lpf Valproic Acid (50.0-100.0) ug/mL 05/18/18 05/18/18 05/18/18 Range/Units 21:16 21:16 21:16 WBC (4.8-10.8) K/uL RBC (4.40-5.90) Mil/uL Hgb (12.0-18.0) g/dL Hct (35.0-51.0) % MCV (80.0-94.0) fL MCH (27.0-31.0) pg MCHC (33.0-37.0) g/dL RDW (11.5-14.5) % Plt Count (130-400) K/uL MPV (7.2-11.7) fL Neut % (Auto) (50.0-75.0) % Lymph % (Auto) (20.0-40.0) % [place] % (Auto) (0.0-10.0) % Eos % (Auto) (0.0-4.0) % Baso % (Auto) (0.0-2.0) % Neut # (Auto) (1.8-7.0) K/uL Lymph # (Auto) (1.0-4.3) K/uL [place] # (Auto) (0.0-0.8) K/uL Eos # (Auto) (0.0-0.7) K/uL Baso # (Auto) (0.0-0.2) K/uL Puncture Site pCO2 (35-45) mm/Hg pO2 (80-100) mm/Hg HCO3 (21-28) mmol/L ABG pH (7.35-7.45) ABG Total CO2 (22-28) mmol/L ABG O2 Saturation (95-98) % ABG Base Excess (-2.0-3.0) mmol/L ABG Hemoglobin (11.7-17.4) g/dL ABG Carboxyhemoglobin (0.5-1.5) % POC ABG HHb (Measured) (0.0-5.0) % ABG Methemoglobin (0.0-3.0) % Jamey Test A-a O2 Difference mm/Hg Respiratory Index Hgb O2 Saturation (95.0-98.0) % Vent Mode Mechanical Rate FiO2 % Tidal Volume PEEP Sodium (132-148) mmol/L Potassium (3.6-5.2) mmol/L Chloride (98-107) mmol/L Carbon Dioxide (22-30) mmol/L Anion Gap (10-20) BUN (9-20) mg/dL Creatinine (0.8-1.5) mg/dL Est GFR ( Amer) Est GFR (Non-Af Amer) POC Glucose (mg/dL) (65-110) mg/dL Random Glucose (75-110) mg/dL Lactic Acid 1.0 (0.7-2.1) mmol/L Calcium (8.6-10.4) mg/dl Phosphorus (2.5-4.5) mg/dL Magnesium (1.6-2.3) mg/dL Total Bilirubin (0.2-1.3) mg/dL AST (17-59) U/L ALT (21-72) U/L Alkaline Phosphatase (38-126) U/L Ammonia 11 (9-33) umol/L Troponin I (0.00-0.120) ng/mL Total Protein (6.3-8.3) g/dL Albumin (3.5-5.0) g/dL Globulin (2.2-3.9) gm/dL Albumin/Globulin Ratio (1.0-2.1) Urine Color (YELLOW) Urine Clarity (Clear) Urine pH (5.0-8.0) Ur Specific [place] (1.003-1.030) Urine Protein (NEGATIVE) mg/dL Urine Glucose (UA) (Normal) mg/dL Urine Ketones (NEGATIVE) mg/dL Urine Blood (NEGATIVE) Urine Nitrate (NEGATIVE) Urine Bilirubin (NEGATIVE) Urine Urobilinogen (0.2-1.0) mg/dL Ur Leukocyte Esterase (Negative) Minh/uL Urine WBC (Auto) (0-5) /hpf Urine RBC (Auto) (0-3) /hpf Urine WBC Clumps (Auto) (NONE) /hpf Ur Squamous Epith Cells (0-5) /hpf Hyaline Casts (0-2) /lpf Valproic Acid 10.7 L (50.0-100.0) ug/mL 05/18/18 05/18/18 05/18/18 Range/Units 21:16 21:16 20:31 WBC 7.3 (4.8-10.8) K/uL RBC 3.68 L (4.40-5.90) Mil/uL Hgb 11.0 L (12.0-18.0) g/dL Hct 34.0 L (35.0-51.0) % MCV 92.2 (80.0-94.0) fL MCH 29.9 (27.0-31.0) pg MCHC 32.4 L (33.0-37.0) g/dL RDW 13.5 (11.5-14.5) % Plt Count 298 (130-400) K/uL MPV 11.2 (7.2-11.7) fL Neut % (Auto) 66.8 (50.0-75.0) % Lymph % (Auto) 23.3 (20.0-40.0) % [place] % (Auto) 8.6 (0.0-10.0) % Eos % (Auto) 1.0 (0.0-4.0) % Baso % (Auto) 0.3 (0.0-2.0) % Neut # (Auto) 4.9 (1.8-7.0) K/uL Lymph # (Auto) 1.7 (1.0-4.3) K/uL [place] # (Auto) 0.6 (0.0-0.8) K/uL Eos # (Auto) 0.1 (0.0-0.7) K/uL Baso # (Auto) 0.0 (0.0-0.2) K/uL Puncture Site Rba pCO2 60 H (35-45) mm/Hg pO2 73 L (80-100) mm/Hg HCO3 33.0 H (21-28) mmol/L ABG pH 7.40 (7.35-7.45) ABG Total CO2 39.0 H (22-28) mmol/L ABG O2 Saturation 97.5 (95-98) % ABG Base Excess 10.4 H (-2.0-3.0) mmol/L ABG Hemoglobin 11.3 L (11.7-17.4) g/dL ABG Carboxyhemoglobin 2.4 H (0.5-1.5) % POC ABG HHb (Measured) 2.4 (0.0-5.0) % ABG Methemoglobin 1.1 (0.0-3.0) % Jamey Test Na A-a O2 Difference 137.0 mm/Hg Respiratory Index 1.9 Hgb O2 Saturation 94.1 L (95.0-98.0) % Vent Mode Mechanical Rate FiO2 40.0 % Tidal Volume PEEP Sodium 149 H (132-148) mmol/L Potassium 4.1 (3.6-5.2) mmol/L Chloride 108 H (98-107) mmol/L Carbon Dioxide 32 H (22-30) mmol/L Anion Gap 14 (10-20) BUN 41 H (9-20) mg/dL Creatinine 1.1 (0.8-1.5) mg/dL Est GFR ( Amer) > 60 Est GFR (Non-Af Amer) > 60 POC Glucose (mg/dL) (65-110) mg/dL Random Glucose 200 H (75-110) mg/dL Lactic Acid (0.7-2.1) mmol/L Calcium 8.8 (8.6-10.4) mg/dl Phosphorus 3.5 (2.5-4.5) mg/dL Magnesium 2.4 H (1.6-2.3) mg/dL Total Bilirubin 0.4 (0.2-1.3) mg/dL AST 41 (17-59) U/L ALT 26 (21-72) U/L Alkaline Phosphatase 98 (38-126) U/L Ammonia (9-33) umol/L Troponin I 0.0390 (0.00-0.120) ng/mL Total Protein 6.6 (6.3-8.3) g/dL Albumin 3.3 L (3.5-5.0) g/dL Globulin 3.4 (2.2-3.9) gm/dL Albumin/Globulin Ratio 1.0 (1.0-2.1) Urine Color (YELLOW) Urine Clarity (Clear) Urine pH (5.0-8.0) Ur Specific [place] (1.003-1.030) Urine Protein (NEGATIVE) mg/dL Urine Glucose (UA) (Normal) mg/dL Urine Ketones (NEGATIVE) mg/dL Urine Blood (NEGATIVE) Urine Nitrate (NEGATIVE) Urine Bilirubin (NEGATIVE) Urine Urobilinogen (0.2-1.0) mg/dL Ur Leukocyte Esterase (Negative) Minh/uL Urine WBC (Auto) (0-5) /hpf Urine RBC (Auto) (0-3) /hpf Urine WBC Clumps (Auto) (NONE) /hpf Ur Squamous Epith Cells (0-5) /hpf Hyaline Casts (0-2) /lpf Valproic Acid (50.0-100.0) ug/mL 05/18/18 05/18/18 Range/Units 20:17 14:10 WBC (4.8-10.8) K/uL RBC (4.40-5.90) Mil/uL Hgb (12.0-18.0) g/dL Hct (35.0-51.0) % MCV (80.0-94.0) fL MCH (27.0-31.0) pg MCHC (33.0-37.0) g/dL RDW (11.5-14.5) % Plt Count (130-400) K/uL MPV (7.2-11.7) fL Neut % (Auto) (50.0-75.0) % Lymph % (Auto) (20.0-40.0) % [place] % (Auto) (0.0-10.0) % Eos % (Auto) (0.0-4.0) % Baso % (Auto) (0.0-2.0) % Neut # (Auto) (1.8-7.0) K/uL Lymph # (Auto) (1.0-4.3) K/uL [place] # (Auto) (0.0-0.8) K/uL Eos # (Auto) (0.0-0.7) K/uL Baso # (Auto) (0.0-0.2) K/uL Puncture Site pCO2 (35-45) mm/Hg pO2 (80-100) mm/Hg HCO3 (21-28) mmol/L ABG pH (7.35-7.45) ABG Total CO2 (22-28) mmol/L ABG O2 Saturation (95-98) % ABG Base Excess (-2.0-3.0) mmol/L ABG Hemoglobin (11.7-17.4) g/dL ABG Carboxyhemoglobin (0.5-1.5) % POC ABG HHb (Measured) (0.0-5.0) % ABG Methemoglobin (0.0-3.0) % Jamey Test A-a O2 Difference mm/Hg Respiratory Index Hgb O2 Saturation (95.0-98.0) % Vent Mode Mechanical Rate FiO2 % Tidal Volume PEEP Sodium (132-148) mmol/L Potassium (3.6-5.2) mmol/L Chloride (98-107) mmol/L Carbon Dioxide (22-30) mmol/L Anion Gap (10-20) BUN (9-20) mg/dL Creatinine (0.8-1.5) mg/dL Est GFR ( Amer) Est GFR (Non-Af Amer) POC Glucose (mg/dL) 168 H 280 H (65-110) mg/dL Random Glucose (75-110) mg/dL Lactic Acid (0.7-2.1) mmol/L Calcium (8.6-10.4) mg/dl Phosphorus (2.5-4.5) mg/dL Magnesium (1.6-2.3) mg/dL Total Bilirubin (0.2-1.3) mg/dL AST (17-59) U/L ALT (21-72) U/L Alkaline Phosphatase (38-126) U/L Ammonia (9-33) umol/L Troponin I (0.00-0.120) ng/mL Total Protein (6.3-8.3) g/dL Albumin (3.5-5.0) g/dL Globulin (2.2-3.9) gm/dL Albumin/Globulin Ratio (1.0-2.1) Urine Color (YELLOW) Urine Clarity (Clear) Urine pH (5.0-8.0) Ur Specific [place] (1.003-1.030) Urine Protein (NEGATIVE) mg/dL Urine Glucose (UA) (Normal) mg/dL Urine Ketones (NEGATIVE) mg/dL Urine Blood (NEGATIVE) Urine Nitrate (NEGATIVE) Urine Bilirubin (NEGATIVE) Urine Urobilinogen (0.2-1.0) mg/dL Ur Leukocyte Esterase (Negative) Minh/uL Urine WBC (Auto) (0-5) /hpf Urine RBC (Auto) (0-3) /hpf Urine WBC Clumps (Auto) (NONE) /hpf Ur Squamous Epith Cells (0-5) /hpf Hyaline Casts (0-2) /lpf Valproic Acid (50.0-100.0) ug/mL Laboratory Results - last 24 hr 05/18/18 05/18/18 05/18/18 14:10 20:17 20:31 WBC RBC Hgb Hct MCV MCH MCHC RDW Plt Count MPV Neut % (Auto) Lymph % (Auto) [place] % (Auto) Eos % (Auto) Baso % (Auto) Neut # (Auto) Lymph # (Auto) [place] # (Auto) Eos # (Auto) Baso # (Auto) Puncture Site Rba pCO2 60 H pO2 73 L HCO3 33.0 H ABG pH 7.40 ABG Total CO2 39.0 H ABG O2 Saturation 97.5 ABG Base Excess 10.4 H ABG Hemoglobin 11.3 L ABG Carboxyhemoglobin 2.4 H POC ABG HHb (Measured) 2.4 ABG Methemoglobin 1.1 Jamey Test Na A-a O2 Difference 137.0 Respiratory Index 1.9 Hgb O2 Saturation 94.1 L Vent Mode Mechanical Rate FiO2 40.0 Tidal Volume PEEP Sodium Potassium Chloride Carbon Dioxide Anion Gap BUN Creatinine Est GFR ( Amer) Est GFR (Non-Af Amer) POC Glucose (mg/dL) 280 H 168 H Random Glucose Lactic Acid Calcium Phosphorus Magnesium Total Bilirubin AST ALT Alkaline Phosphatase Ammonia Troponin I Total Protein Albumin Globulin Albumin/Globulin Ratio Urine Color Urine Clarity Urine pH Ur Specific [place] Urine Protein Urine Glucose (UA) Urine Ketones Urine Blood Urine Nitrate Urine Bilirubin Urine Urobilinogen Ur Leukocyte Esterase Urine WBC (Auto) Urine RBC (Auto) Urine WBC Clumps (Auto) Ur Squamous Epith Cells Hyaline Casts Valproic Acid 05/18/18 05/18/18 05/18/18 21:16 21:16 21:16 WBC 7.3 RBC 3.68 L Hgb 11.0 L Hct 34.0 L MCV 92.2 MCH 29.9 MCHC 32.4 L RDW 13.5 Plt Count 298 MPV 11.2 Neut % (Auto) 66.8 Lymph % (Auto) 23.3 [place] % (Auto) 8.6 Eos % (Auto) 1.0 Baso % (Auto) 0.3 Neut # (Auto) 4.9 Lymph # (Auto) 1.7 [place] # (Auto) 0.6 Eos # (Auto) 0.1 Baso # (Auto) 0.0 Puncture Site pCO2 pO2 HCO3 ABG pH ABG Total CO2 ABG O2 Saturation ABG Base Excess ABG Hemoglobin ABG Carboxyhemoglobin POC ABG HHb (Measured) ABG Methemoglobin Jamey Test A-a O2 Difference Respiratory Index Hgb O2 Saturation Vent Mode Mechanical Rate FiO2 Tidal Volume PEEP Sodium 149 H Potassium 4.1 Chloride 108 H Carbon Dioxide 32 H Anion Gap 14 BUN 41 H Creatinine 1.1 Est GFR ( Amer) > 60 Est GFR (Non-Af Amer) > 60 POC Glucose (mg/dL) Random Glucose 200 H Lactic Acid 1.0 Calcium 8.8 Phosphorus 3.5 Magnesium 2.4 H Total Bilirubin 0.4 AST 41 ALT 26 Alkaline Phosphatase 98 Ammonia Troponin I 0.0390 Total Protein 6.6 Albumin 3.3 L Globulin 3.4 Albumin/Globulin Ratio 1.0 Urine Color Urine Clarity Urine pH Ur Specific [place] Urine Protein Urine Glucose (UA) Urine Ketones Urine Blood Urine Nitrate Urine Bilirubin Urine Urobilinogen Ur Leukocyte Esterase Urine WBC (Auto) Urine RBC (Auto) Urine WBC Clumps (Auto) Ur Squamous Epith Cells Hyaline Casts Valproic Acid 05/18/18 05/18/18 05/18/18 21:16 21:16 23:09 WBC RBC Hgb Hct MCV MCH MCHC RDW Plt Count MPV Neut % (Auto) Lymph % (Auto) [place] % (Auto) Eos % (Auto) Baso % (Auto) Neut # (Auto) Lymph # (Auto) [place] # (Auto) Eos # (Auto) Baso # (Auto) Puncture Site pCO2 pO2 HCO3 ABG pH ABG Total CO2 ABG O2 Saturation ABG Base Excess ABG Hemoglobin ABG Carboxyhemoglobin POC ABG HHb (Measured) ABG Methemoglobin Jamey Test A-a O2 Difference Respiratory Index Hgb O2 Saturation Vent Mode Mechanical Rate FiO2 Tidal Volume PEEP Sodium Potassium Chloride Carbon Dioxide Anion Gap BUN Creatinine Est GFR ( Amer) Est GFR (Non-Af Amer) POC Glucose (mg/dL) 237 H Random Glucose Lactic Acid Calcium Phosphorus Magnesium Total Bilirubin AST ALT Alkaline Phosphatase Ammonia 11 Troponin I Total Protein Albumin Globulin Albumin/Globulin Ratio Urine Color Urine Clarity Urine pH Ur Specific [place] Urine Protein Urine Glucose (UA) Urine Ketones Urine Blood Urine Nitrate Urine Bilirubin Urine Urobilinogen Ur Leukocyte Esterase Urine WBC (Auto) Urine RBC (Auto) Urine WBC Clumps (Auto) Ur Squamous Epith Cells Hyaline Casts Valproic Acid 10.7 L 05/19/18 05/19/18 05/19/18 00:46 05:33 05:42 WBC RBC Hgb Hct MCV MCH MCHC RDW Plt Count MPV Neut % (Auto) Lymph % (Auto) [place] % (Auto) Eos % (Auto) Baso % (Auto) Neut # (Auto) Lymph # (Auto) [place] # (Auto) Eos # (Auto) Baso # (Auto) Puncture Site R brac pCO2 37 pO2 128 H HCO3 31.6 H ABG pH 7.54 H ABG Total CO2 32.7 H ABG O2 Saturation 99.7 H ABG Base Excess 8.5 H ABG Hemoglobin 10.7 L ABG Carboxyhemoglobin 1.8 H POC ABG HHb (Measured) 0.3 ABG Methemoglobin 1.1 Jamey Test Na A-a O2 Difference 111.0 Respiratory Index 0.9 Hgb O2 Saturation 96.8 Vent Mode Prvc Mechanical Rate 18 FiO2 40.0 Tidal Volume 500 PEEP 5 Sodium Potassium Chloride Carbon Dioxide Anion Gap BUN Creatinine Est GFR ( Amer) Est GFR (Non-Af Amer) POC Glucose (mg/dL) 197 H Random Glucose Lactic Acid 1.5 Calcium Phosphorus Magnesium Total Bilirubin AST ALT Alkaline Phosphatase Ammonia Troponin I Total Protein Albumin Globulin Albumin/Globulin Ratio Urine Color Urine Clarity Urine pH Ur Specific [place] Urine Protein Urine Glucose (UA) Urine Ketones Urine Blood Urine Nitrate Urine Bilirubin Urine Urobilinogen Ur Leukocyte Esterase Urine WBC (Auto) Urine RBC (Auto) Urine WBC Clumps (Auto) Ur Squamous Epith Cells Hyaline Casts Valproic Acid 05/19/18 05/19/18 05/19/18 06:33 06:40 08:03 WBC RBC Hgb Hct MCV MCH MCHC RDW Plt Count MPV Neut % (Auto) Lymph % (Auto) [place] % (Auto) Eos % (Auto) Baso % (Auto) Neut # (Auto) Lymph # (Auto) [place] # (Auto) Eos # (Auto) Baso # (Auto) Puncture Site pCO2 pO2 HCO3 ABG pH ABG Total CO2 ABG O2 Saturation ABG Base Excess ABG Hemoglobin ABG Carboxyhemoglobin POC ABG HHb (Measured) ABG Methemoglobin Jamey Test A-a O2 Difference Respiratory Index Hgb O2 Saturation Vent Mode Mechanical Rate FiO2 Tidal Volume PEEP Sodium Potassium Chloride Carbon Dioxide Anion Gap BUN Creatinine Est GFR ( Amer) Est GFR (Non-Af Amer) POC Glucose (mg/dL) Random Glucose Lactic Acid 2.2 H Calcium Phosphorus Magnesium Total Bilirubin AST ALT Alkaline Phosphatase Ammonia Troponin I 0.0500 Total Protein Albumin Globulin Albumin/Globulin Ratio Urine Color Yellow Urine Clarity Hazy Urine pH 7.0 Ur Specific [place] 1.019 Urine Protein 2+ H Urine Glucose (UA) 2+ H Urine Ketones Trace Urine Blood Negative Urine Nitrate Negative Urine Bilirubin Negative Urine Urobilinogen Normal Ur Leukocyte Esterase 3+ H Urine WBC (Auto) 690 H Urine RBC (Auto) 7 H Urine WBC Clumps (Auto) Many H Ur Squamous Epith Cells 1 Hyaline Casts 3-5 H Valproic Acid 05/19/18 05/19/18 11:38 12:57 WBC RBC Hgb Hct MCV MCH MCHC RDW Plt Count MPV Neut % (Auto) Lymph % (Auto) [place] % (Auto) Eos % (Auto) Baso % (Auto) Neut # (Auto) Lymph # (Auto) [place] # (Auto) Eos # (Auto) Baso # (Auto) Puncture Site pCO2 pO2 HCO3 ABG pH ABG Total CO2 ABG O2 Saturation ABG Base Excess ABG Hemoglobin ABG Carboxyhemoglobin POC ABG HHb (Measured) ABG Methemoglobin Jamey Test A-a O2 Difference Respiratory Index Hgb O2 Saturation Vent Mode Mechanical Rate FiO2 Tidal Volume PEEP Sodium Potassium Chloride Carbon Dioxide Anion Gap BUN Creatinine Est GFR ( Amer) Est GFR (Non-Af Amer) POC Glucose (mg/dL) 118 H Random Glucose Lactic Acid 2.3 H Calcium Phosphorus Magnesium Total Bilirubin AST ALT Alkaline Phosphatase Ammonia Troponin I Total Protein Albumin Globulin Albumin/Globulin Ratio Urine Color Urine Clarity Urine pH Ur Specific [place] Urine Protein Urine Glucose (UA) Urine Ketones Urine Blood Urine Nitrate Urine Bilirubin Urine Urobilinogen Ur Leukocyte Esterase Urine WBC (Auto) Urine RBC (Auto) Urine WBC Clumps (Auto) Ur Squamous Epith Cells Hyaline Casts Valproic Acid EKG/Cardiology Studies: Cardiology / EKG Studies 05/18/18 21:20 EKG [ELECTROCARDIOGRAM] Stat Comment: Mode Of Transportation: Reason For Exam: cad Fingerstick Blood Sugar Results: 197 Review of Systems - Review of Systems Systems not reviewed;Unavailable: Other (Status post tracheostomy) Assessment/Plan (1) Status post tracheostomy Current Visit: No Status: Acute Comment: continue ICU care for now Continue antibiotics Continue sedation
[2018-05-19] MEDS: Vancomycin 1 gm/NS 200 ml 1 GM/200 ML BAG IVPB SCH (22:16)
--- NOTE | 2018-05-19 23:55 | CP.PCM.PN ---
Subjective - Date & Time of Evaluation Date of Evaluation: 05/19/18 Time of Evaluation: 18:00 - Subjective Subjective: Pt seen and examined at bedside Objective - Vital Signs/Intake and Output Vital Signs (last 24 hours): Temp Pulse Resp BP Pulse Ox 98.5 F 74 17 172/65 H 99 05/19/18 20:00 05/19/18 23:00 05/19/18 23:00 05/19/18 22:46 05/19/18 23:00 Intake and Output: 05/19/18 05/20/18 18:59 06:59 Intake Total 1297 617.2 Output Total 0 1090 Balance 1297 -472.8 - Medications Medications: Current Medications Albuterol/Ipratropium (Duoneb 3 Mg/0.5 Mg (3 Ml) Ud) 3 ml INH RQ6 [facility] Last Admin: 05/19/18 19:21 Dose: 3 ml Ascorbic Acid (Vitamin C 250 Mg Tab) 250 mg GT DAILY [facility] Last Admin: 05/19/18 11:00 Dose: 250 mg Aspirin (Aspirin Chewable) 81 mg GT DAILY [facility] Last Admin: 05/19/18 11:00 Dose: 81 mg Carvedilol (Coreg) 12.5 mg GT BID [facility] Last Admin: 05/19/18 17:38 Dose: Not Given Enoxaparin Sodium (Lovenox) 40 mg SC DAILY [facility] Last Admin: 05/19/18 11:00 Dose: 40 mg Ferrous Sulfate (Feosol Liq) 300 mg PO DAILY [facility] Last Admin: 05/19/18 11:00 Dose: 300 mg Haloperidol Lactate (Haldol) 1 mg IM Q6H PRN PRN Reason: Agitation Last Admin: 05/19/18 23:05 Dose: 1 mg Dexmedetomidine HCl 200 mcg/ (Sodium Chloride) 50 mls @ 3.4 mls/hr IV TITR PRN ; Protocol; 0.2 MCG/KG/HR PRN Reason: Sedation Last Titration: 05/19/18 23:00 Dose: 0.2 mcg/kg/hr, 3.4 mls/hr Piperacillin Sod/Tazobactam Sod (Zosyn 3.375 Gm Iv Premix) 3.375 gm in 50 mls @ 100 mls/hr IVPB Q6H [facility] PRN Reason: Protocol Last Admin: 06/30/18 21:36 Dose: 100 mls/hr Vancomycin/Sodium Chloride (Vancomycin 1 Gm/Ns 200 Ml) 1 gm in 200 mls @ 167 mls/hr IVPB Q24H [facility] PRN Reason: Protocol Stop: 05/23/18 22:01 Last Admin: 05/19/18 22:16 Dose: 167 mls/hr Sodium Chloride (Sodium Chloride 0.9%) 1,000 mls @ 100 mls/hr IV .Q10H [facility] Last Admin: 05/19/18 21:38 Dose: 100 mls/hr Insulin Aspart (Novolog) 0 unit SC Q6 [facility] PRN Reason: Protocol Last Admin: 05/19/18 23:47 Dose: Not Given Insulin Detemir (Levemir) 30 unit SC Q12 [facility] Last Admin: 05/19/18 11:00 Dose: 30 units Levetiracetam (Keppra) 500 mg GT Q12H [facility] Last Admin: 05/19/18 18:59 Dose: 500 mg Magnesium Hydroxide (Milk Of Magnesia) 30 ml GT Q24H PRN PRN Reason: Constipation Multivitamins/Vitamin C (Multi-Delyn Liquid) 5 ml GT DAILY [facility] Last Admin: 05/19/18 11:00 Dose: 5 ml Pantoprazole Sodium (Protonix Susp) 40 mg PEG 1000 [facility] Last Admin: 05/19/18 11:00 Dose: 40 mg Tamsulosin HCl (Flomax) 0.4 mg PEG DAILY [facility] Last Admin: 05/19/18 11:00 Dose: 0.4 mg Valproate Sodium (Depakene Oral Soln) 500 mg GT Q12H [facility] Last Admin: 05/19/18 19:00 Dose: 500 mg Zinc Sulfate (Zinc Sulfate 220 Mg Cap) 220 mg GT DAILY [facility] Last Admin: 05/19/18 11:00 Dose: 220 mg - Labs Labs: 05/18/18 21:16 05/18/18 21:16
[2018-05-20] MEDS: Albuterol-Ipratrop 3 mg / 0.5 (3 ml) UD INH SCH ×4 (01:11→19:55)
--- NOTE | 2018-05-20 01:27 | CON ---
DATE: 05/19/2018 CARDIOLOGY CONSULTATION REASON FOR CONSULTATION: Respiratory failure and coronary artery disease, status post coronary artery bypass surgery. HISTORY OF PRESENT ILLNESS: The patient is a 68 years old male who has history of coronary artery disease, status post coronary artery bypass surgery; history of CVA; with tracheostomy and gastrostomy feeding tube. The patient is a shelter resident. The patient was initially admitted because of gastrostomy tube malfunction. While the patient on the telemetry unit, the patient developed respiratory distress, was resuscitated. Mucus plug was the probable cause for the patient's decompensation. The patient was transferred to ICU and was placed on mechanical ventilator. No reported hypotension and no reported ventricular tachycardia. PAST MEDICAL HISTORY: Coronary artery disease, status post coronary artery bypass surgery, CVA, IVC filter placement, seizure disorder, diabetes mellitus, and hypertension. MEDICATIONS: Aspirin 81 mg once a day, Coreg 12.5 mg b.i.d., sodium valproate 500 mg twice a day via gastrostomy tube, albuterol inhaler every 6 hours p.r.n., Feosol 300 mg daily, Flomax 0.4 mg daily, Haldol 1 mg IM every 6 hours p.r.n., Keppra 500 mg twice a day via gastrostomy tube, Lovenox 40 mg subcutaneous once a day, Levemir 30 units subcutaneous twice a day, Protonix 40 mg once a day via gastrostomy tube, vitamin C 250 mg daily, and Zosyn 3.375 gm intravenously every 6 hours. REVIEW OF SYSTEMS: No reported hypotension. No reported ventricular tachycardia. No reported seizure activity. PHYSICAL EXAMINATION: GENERAL: The patient is an elderly male who is currently sedated, on mechanical ventilator. VITAL SIGNS: Blood pressure 143/54, heart rate 60, temperature 97.7, respirations 18. HEENT: Normocephalic. CHEST: Bilateral rhonchi. HEART: S1 and S2 regular. ABDOMEN: Soft. EXTREMITIES: Significant muscle wasting. LABORATORY DATA: SMA-7 yesterday: Sodium 149, potassium 4.1, chloride 108, CO2 of 32, glucose 200, BUN 41, and creatinine 1.1. Yesterday's hemoglobin and hematocrit are 11 and 34 respectively, white count 7.3 and platelet count 598,000. Valproic acid 10.7 which is subtherapeutic. Chest x-ray: Low lung volumes, crowded bronchovascular markings, and minor left basilar atelectasis. Abdominal x-ray: Gastrostomy tube placement, appeared appropriate. EKG on 05/07/2018 revealed sinus rhythm with moderate voltage criteria for LVH. Echocardiographic study in 01/2018 with technically difficult study, normal left systolic function, no definite vegetation seen. ASSESSMENT: 1. Respiratory failure. 2. Coronary artery disease, status post coronary artery bypass surgery. 3. History of cerebrovascular accident. 4. Dehydration, hypernatremia, and prerenal azotemia. 5. Rule out underlying sepsis. 6. Hypertension. 7. Diabetes mellitus. RECOMMENDATIONS: Continue aspirin 81 mg once a day, Coreg 12.5 mg twice a day, valproic acid 500 mg twice a day via gastrostomy tube, Haldol 1 mg IM every 6 hours, Keppra 500 mg twice a day via gastrostomy tube, subcutaneous Lovenox 40 mg once a day. Continue IV vancomycin and IV Zosyn. Obtain two sets of blood cultures. Obtain 12-lead EKG and repeat one more set of troponin, the initial set was negative yesterday. Luke Gibbs MD
[2018-05-20] MEDS ORDERED: Dextrose 5%/0.45% NS 1,000 ML IV SCH ×3 (01:45→18:48)
[2018-05-20 04:23] LABS: ARTERIAL BLOOD GAS HEMOGLOBIN 11.6 g/dL (11.7-17.4); ARTERIAL BLOOD GAS O2 SAT 99.7 % (95-98); ARTERIAL BLOOD GAS PCO2 32 mm/Hg (35-45); ARTERIAL BLOOD GAS PH 7.56 (7.35-7.45); ARTERIAL BLOOD GAS PO2 143 mm/Hg (80-100); ARTERIAL BLOOD GAS TCO2 29.7 mmol/L (22-28)
[2018-05-20] MEDS: Piperacill/Tazo 3.375gm in Dex 3.375 GM/50 ML BAG IVPB SCH ×4 (04:43→21:06)
[2018-05-20] MEDS: Valproic Acid 250 mg/5 ml UD Cup GT SCH ×3 (05:46→18:50)
[2018-05-20] MEDS: levETIRAcetam 100 mg/ml (5ml) Oral Syringe GT SCH ×3 (05:47→18:50)
[2018-05-20] MEDS: (Novolog) Insulin Aspart, Recombinant 100 u/ml 10 ml vial SC SCH ×3 (06:52→17:42)
[2018-05-20 06:59] LABS: BASO % 0.3 % (0.0-2.0); EOS # 0.1 K/uL (0.0-0.7); EOS % 1.1 % (0.0-4.0); LYMPH % 27.6 % (20.0-40.0); MEAN CELL VOLUME 92.1 fL (80.0-94.0); MEAN CORPUSCULAR HGB CONC 32.6 g/dL (33.0-37.0); MEAN PLATELET VOLUME 11.5 fL (7.2-11.7); MONO # 0.8 K/uL (0.0-0.8); MONO % 10.5 % (0.0-10.0); NEUT # 4.3 K/uL (1.8-7.0); NEUT % 60.5 % (50.0-75.0); RBC 3.68 Mil/uL (4.40-5.90); RED CELL DISTRIBUTION WIDTH 13.9 % (11.5-14.5); WHITE BLOOD COUNT 7.1 K/uL (4.8-10.8)
[2018-05-20 07:17] LABS: BLOOD UREA NITROGEN 24 mg/dL (9-20); CALCIUM 8.9 mg/dl (8.6-10.4); GFR AFRICAN-AMERICAN > 60; GFR NON-AFRICAN AMERICAN > 60
--- NOTE | 2018-05-20 09:15 | RAD ---
HISTORY: Intubated Follow up COMPARISON: Comparison chest 05/18/2018 FINDINGS: In situ tracheostomy tube in good position. LUNGS: Low lung volumes, crowded bronchovascular markings and mild bibasilar atelectasis. PLEURA: No significant pleural effusion identified, no pneumothorax apparent. CARDIOVASCULAR: Sternotomy wires and CABG clips. Heart is mildly enlarged. OSSEOUS STRUCTURES: No significant abnormalities. VISUALIZED UPPER ABDOMEN: Normal. OTHER FINDINGS: None. IMPRESSION: Low lung volumes, crowded bronchovascular markings and mild bibasilar atelectasis.
[2018-05-20] MEDS: Enoxaparin 40 mg Syringe SC SCH (10:00)
[2018-05-20] MEDS: Pantoprazole 40 mg Susp UD PEG SCH (10:00)
[2018-05-20] MEDS: Ferrous Sulfate 300 mg/5 mL Liq UD PO SCH (10:01)
[2018-05-20] MEDS: Multiple Vitamins Oral Solution GT SCH (10:01)
[2018-05-20] MEDS ORDERED: Potassium Chloride 20 mEq/15 ml LIQ UD PO ONE (10:15)
[2018-05-20] MEDS: Dexmedetomidine Hydrochloride 200 MCG in Sodium Chloride 0.9% 48 ML IV PRN ×3 (12:08→20:47)
--- NOTE | 2018-05-20 16:01 | CP.CCUPN ---
CCU Subjective - Physician Review Events Since Last Encounter (Free Text): 05/20/18 15:59 Patient seen and examined Remained restless and agitated On Precedex drip and Ativan as needed Started peg feeding afebrile CCU Objective - Vital Signs / Intake & Output Vital Signs (Last 4 hours): Vital Signs Temp Pulse Resp BP Pulse Ox 05/20/18 15:00 57 L 18 98 05/20/18 14:51 56 L 18 163/67 H 95 05/20/18 14:00 56 L 18 97 05/20/18 13:51 59 L 18 162/69 H 94 L 05/20/18 13:00 69 18 98 05/20/18 12:51 68 18 161/72 H 93 L 05/20/18 12:01 61 18 157/56 H 94 L 05/20/18 12:00 98.6 F 65 18 97 Intake and Output (Last 8hrs): Intake & Output 05/20/18 05/20/18 05/20/18 06:59 14:59 22:59 Intake Total 962.9 969.5 114 Output Total 1450 0 0 Balance -487.1 969.5 114 Intake: IV 0 0 Intake, IV Amount 812.9 749.5 114 Left Antecubital 37.9 99.5 14 Right Wrist 775 650 100 Oral 0 0 Other 150 220 Output: Urine 1450 0 Condom 1450 0 Stool 0 Other: # Bowel Movements 0 0 - Physical Exam Head: Positive for: Atraumatic, Normocephalic Respiratory/Chest: Positive for: Clear to Auscultation Cardiovascular: Positive for: Regular Rate and Rhythm Abdomen: Positive for: Normal Bowel Sounds Upper Extremity: Positive for: Normal Inspection Lower Extremity: Positive for: Normal Inspection - Medications Active Medications: Active Medications Generic Name Dose Route Start Last Admin Trade Name Freq PRN Reason Stop Dose Admin Albuterol/Ipratropium 3 ml 05/18/18 20:00 05/20/18 13:20 Duoneb 3 Mg/0.5 Mg (3 Ml) Ud INH 3 ml RQ6 [facility] Administration Ascorbic Acid 250 mg 05/19/18 10:00 05/20/18 10:02 Vitamin C 250 Mg Tab GT 250 mg DAILY [facility] Administration Aspirin 81 mg 05/19/18 10:00 05/20/18 10:00 Aspirin Chewable GT 81 mg DAILY [facility] Administration Carvedilol 12.5 mg 05/18/18 18:45 05/20/18 10:07 Coreg GT 12.5 mg BID [facility] Administration Enoxaparin Sodium 40 mg 05/19/18 10:00 05/20/18 10:00 Lovenox SC 40 mg DAILY [facility] Administration Ferrous Sulfate 300 mg 05/19/18 10:00 05/20/18 10:01 Feosol Liq PO 300 mg DAILY [facility] Administration Haloperidol Lactate 1 mg 05/18/18 22:00 05/19/18 23:05 Haldol IM 1 mg Q6H PRN Administration Agitation Dexmedetomidine HCl 200 mcg/ 50 mls @ 3.4 mls/hr 05/18/18 21:15 05/20/18 12: 08 Sodium Chloride IV 0.8 mcg/kg/hr TITR PRN 13.6 mls/hr Sedation Administration Protocol 0.2 MCG/KG/HR Piperacillin Sod/Tazobactam Sod 3.375 gm in 50 mls @ 100 mls/hr 05/18/18 22: 00 05/20/18 15:48 Zosyn 3.375 Gm Iv Premix IVPB 100 mls/hr Q6H [facility] Administration Protocol Vancomycin/Sodium Chloride 1 gm in 200 mls @ 167 mls/hr 05/18/18 22:00 22:16 Vancomycin 1 Gm/Ns 200 Ml IVPB 05/23/18 22:01 167 mls/hr Q24H [facility] Administration Protocol Dextrose/Sodium Chloride 1,000 mls @ 100 mls/hr 05/20/18 10:03 05/20/18 10:06 Dextrose 5%/0.45% Ns 1000 Ml IV 100 mls/hr .Q10H [facility] Administration Insulin Aspart 0 unit 05/19/18 06:00 05/20/18 11:36 Novolog SC 6 units Q6 [facility] Administration Protocol Insulin Detemir 30 unit 05/18/18 22:00 05/19/18 11:00 Levemir SC 30 units Q12 [facility] Administration Levetiracetam 500 mg 05/18/18 18:45 05/20/18 05:47 Keppra GT 500 mg Q12H [facility] Administration Magnesium Hydroxide 30 ml 05/18/18 18:43 05/20/18 05:43 Milk Of Magnesia GT 30 ml Q24H PRN Administration Constipation Multivitamins/Vitamin C 5 ml 05/19/18 10:00 05/20/18 10:01 Multi-Delyn Liquid GT 5 ml DAILY [facility] Administration Pantoprazole Sodium 40 mg 05/19/18 10:00 05/20/18 10:00 Protonix Susp PEG 40 mg 1000 [facility] Administration Tamsulosin HCl 0.4 mg 05/19/18 10:00 05/20/18 10:00 Flomax PEG 0.4 mg DAILY [facility] Administration Valproate Sodium 500 mg 05/18/18 18:45 05/20/18 10:01 Depakene Oral Soln GT 500 mg Q12H [facility] Administration Zinc Sulfate 220 mg 05/19/18 10:00 05/20/18 10:00 Zinc Sulfate 220 Mg Cap GT 220 mg DAILY [facility] Administration - Patient Studies Lab Studies: Microbiology Studies 05/18/18 21:18 MRSA Culture (Admit) - Final Nose MRSA NOT DETECTED 05/18/18 21:16 Blood Culture - Preliminary Blood-Venous NO GROWTH AFTER 24 HOURS 05/18/18 21:46 Blood Culture - Preliminary Blood-Venous NO GROWTH AFTER 24 HOURS 05/18/18 22:46 Gram Stain - Final Trachasp Lab Studies 05/20/18 05/20/18 05/20/18 Range/Units 11:22 06:51 06:51 WBC 7.1 (4.8-10.8) K/uL RBC 3.68 L (4.40-5.90) Mil/uL Hgb 11.0 L (12.0-18.0) g/dL Hct 33.9 L (35.0-51.0) % MCV 92.1 (80.0-94.0) fL MCH 30.0 (27.0-31.0) pg MCHC 32.6 L (33.0-37.0) g/dL RDW 13.9 (11.5-14.5) % Plt Count 222 (130-400) K/uL MPV 11.5 (7.2-11.7) fL Neut % (Auto) 60.5 (50.0-75.0) % Lymph % (Auto) 27.6 (20.0-40.0) % [place] % (Auto) 10.5 H (0.0-10.0) % Eos % (Auto) 1.1 (0.0-4.0) % Baso % (Auto) 0.3 (0.0-2.0) % Neut # (Auto) 4.3 (1.8-7.0) K/uL Lymph # (Auto) 2.0 (1.0-4.3) K/uL [place] # (Auto) 0.8 (0.0-0.8) K/uL Eos # (Auto) 0.1 (0.0-0.7) K/uL Baso # (Auto) 0.0 (0.0-0.2) K/uL Puncture Site pCO2 (35-45) mm/Hg pO2 (80-100) mm/Hg HCO3 (21-28) mmol/L ABG pH (7.35-7.45) ABG Total CO2 (22-28) mmol/L ABG O2 Saturation (95-98) % ABG Base Excess (-2.0-3.0) mmol/L ABG Hemoglobin (11.7-17.4) g/dL ABG Carboxyhemoglobin (0.5-1.5) % POC ABG HHb (Measured) (0.0-5.0) % ABG Methemoglobin (0.0-3.0) % Jamey Test A-a O2 Difference mm/Hg Respiratory Index Hgb O2 Saturation (95.0-98.0) % Vent Mode Mechanical Rate FiO2 % Tidal Volume PEEP Sodium 153 H (132-148) mmol/L Potassium 3.2 L (3.6-5.2) mmol/L Chloride 112 H (98-107) mmol/L Carbon Dioxide 30 (22-30) mmol/L Anion Gap 13 (10-20) BUN 24 H (9-20) mg/dL Creatinine 1.0 (0.8-1.5) mg/dL Est GFR ( Amer) > 60 Est GFR (Non-Af Amer) > 60 POC Glucose (mg/dL) 346 H (65-110) mg/dL Random Glucose 154 H (75-110) mg/dL Calcium 8.9 (8.6-10.4) mg/dl Oxycodone Screen Ur Oxycodone GC/MS Ur Oxycodone Comment 05/20/18 05/20/18 05/19/18 Range/Units 06:10 04:15 23:42 WBC (4.8-10.8) K/uL RBC (4.40-5.90) Mil/uL Hgb (12.0-18.0) g/dL Hct (35.0-51.0) % MCV (80.0-94.0) fL MCH (27.0-31.0) pg MCHC (33.0-37.0) g/dL RDW (11.5-14.5) % Plt Count (130-400) K/uL MPV (7.2-11.7) fL Neut % (Auto) (50.0-75.0) % Lymph % (Auto) (20.0-40.0) % [place] % (Auto) (0.0-10.0) % Eos % (Auto) (0.0-4.0) % Baso % (Auto) (0.0-2.0) % Neut # (Auto) (1.8-7.0) K/uL Lymph # (Auto) (1.0-4.3) K/uL [place] # (Auto) (0.0-0.8) K/uL Eos # (Auto) (0.0-0.7) K/uL Baso # (Auto) (0.0-0.2) K/uL Puncture Site Rb pCO2 32 L (35-45) mm/Hg pO2 143 H (80-100) mm/Hg HCO3 30.0 H (21-28) mmol/L ABG pH 7.56 H (7.35-7.45) ABG Total CO2 29.7 H (22-28) mmol/L ABG O2 Saturation 99.7 H (95-98) % ABG Base Excess 6.5 H (-2.0-3.0) mmol/L ABG Hemoglobin 11.6 L (11.7-17.4) g/dL ABG Carboxyhemoglobin 1.6 H (0.5-1.5) % POC ABG HHb (Measured) 0.3 (0.0-5.0) % ABG Methemoglobin 1.3 (0.0-3.0) % Jamey Test Na A-a O2 Difference 102.0 mm/Hg Respiratory Index 0.7 Hgb O2 Saturation 96.8 (95.0-98.0) % Vent Mode Prvc Mechanical Rate 18 FiO2 40.0 % Tidal Volume 500 PEEP 5 Sodium (132-148) mmol/L Potassium (3.6-5.2) mmol/L Chloride (98-107) mmol/L Carbon Dioxide (22-30) mmol/L Anion Gap (10-20) BUN (9-20) mg/dL Creatinine (0.8-1.5) mg/dL Est GFR ( Amer) Est GFR (Non-Af Amer) POC Glucose (mg/dL) 170 H 89 (65-110) mg/dL Random Glucose (75-110) mg/dL Calcium (8.6-10.4) mg/dl Oxycodone Screen Ur Oxycodone GC/MS Ur Oxycodone Comment 05/19/18 05/19/18 Range/Units 17:59 00:46 WBC (4.8-10.8) K/uL RBC (4.40-5.90) Mil/uL Hgb (12.0-18.0) g/dL Hct (35.0-51.0) % MCV (80.0-94.0) fL MCH (27.0-31.0) pg MCHC (33.0-37.0) g/dL RDW (11.5-14.5) % Plt Count (130-400) K/uL MPV (7.2-11.7) fL Neut % (Auto) (50.0-75.0) % Lymph % (Auto) (20.0-40.0) % [place] % (Auto) (0.0-10.0) % Eos % (Auto) (0.0-4.0) % Baso % (Auto) (0.0-2.0) % Neut # (Auto) (1.8-7.0) K/uL Lymph # (Auto) (1.0-4.3) K/uL [place] # (Auto) (0.0-0.8) K/uL Eos # (Auto) (0.0-0.7) K/uL Baso # (Auto) (0.0-0.2) K/uL Puncture Site pCO2 (35-45) mm/Hg pO2 (80-100) mm/Hg HCO3 (21-28) mmol/L ABG pH (7.35-7.45) ABG Total CO2 (22-28) mmol/L ABG O2 Saturation (95-98) % ABG Base Excess (-2.0-3.0) mmol/L ABG Hemoglobin (11.7-17.4) g/dL ABG Carboxyhemoglobin (0.5-1.5) % POC ABG HHb (Measured) (0.0-5.0) % ABG Methemoglobin (0.0-3.0) % Jamey Test A-a O2 Difference mm/Hg Respiratory Index Hgb O2 Saturation (95.0-98.0) % Vent Mode Mechanical Rate FiO2 % Tidal Volume PEEP Sodium (132-148) mmol/L Potassium (3.6-5.2) mmol/L Chloride (98-107) mmol/L Carbon Dioxide (22-30) mmol/L Anion Gap (10-20) BUN (9-20) mg/dL Creatinine (0.8-1.5) mg/dL Est GFR ( Amer) Est GFR (Non-Af Amer) POC Glucose (mg/dL) 107 (65-110) mg/dL Random Glucose (75-110) mg/dL Calcium (8.6-10.4) mg/dl Oxycodone Screen TNP Ur Oxycodone GC/MS TNP Ur Oxycodone Comment TNP Laboratory Results - last 24 hr 05/19/18 05/19/18 05/19/18 00:46 17:59 23:42 WBC RBC Hgb Hct MCV MCH MCHC RDW Plt Count MPV Neut % (Auto) Lymph % (Auto) [place] % (Auto) Eos % (Auto) Baso % (Auto) Neut # (Auto) Lymph # (Auto) [place] # (Auto) Eos # (Auto) Baso # (Auto) Puncture Site pCO2 pO2 HCO3 ABG pH ABG Total CO2 ABG O2 Saturation ABG Base Excess ABG Hemoglobin ABG Carboxyhemoglobin POC ABG HHb (Measured) ABG Methemoglobin Jamey Test A-a O2 Difference Respiratory Index Hgb O2 Saturation Vent Mode Mechanical Rate FiO2 Tidal Volume PEEP Sodium Potassium Chloride Carbon Dioxide Anion Gap BUN Creatinine Est GFR ( Amer) Est GFR (Non-Af Amer) POC Glucose (mg/dL) 107 89 Random Glucose Calcium Oxycodone Screen TNP Ur Oxycodone GC/MS TNP Ur Oxycodone Comment TNP 05/20/18 05/20/18 05/20/18 04:15 06:10 06:51 WBC 7.1 RBC 3.68 L Hgb 11.0 L Hct 33.9 L MCV 92.1 MCH 30.0 MCHC 32.6 L RDW 13.9 Plt Count 222 MPV 11.5 Neut % (Auto) 60.5 Lymph % (Auto) 27.6 [place] % (Auto) 10.5 H Eos % (Auto) 1.1 Baso % (Auto) 0.3 Neut # (Auto) 4.3 Lymph # (Auto) 2.0 [place] # (Auto) 0.8 Eos # (Auto) 0.1 Baso # (Auto) 0.0 Puncture Site Rb pCO2 32 L pO2 143 H HCO3 30.0 H ABG pH 7.56 H ABG Total CO2 29.7 H ABG O2 Saturation 99.7 H ABG Base Excess 6.5 H ABG Hemoglobin 11.6 L ABG Carboxyhemoglobin 1.6 H POC ABG HHb (Measured) 0.3 ABG Methemoglobin 1.3 Jamey Test Na A-a O2 Difference 102.0 Respiratory Index 0.7 Hgb O2 Saturation 96.8 Vent Mode Prvc Mechanical Rate 18 FiO2 40.0 Tidal Volume 500 PEEP 5 Sodium Potassium Chloride Carbon Dioxide Anion Gap BUN Creatinine Est GFR ( Amer) Est GFR (Non-Af Amer) POC Glucose (mg/dL) 170 H Random Glucose Calcium Oxycodone Screen Ur Oxycodone GC/MS Ur Oxycodone Comment 05/20/18 05/20/18 06:51 11:22 WBC RBC Hgb Hct MCV MCH MCHC RDW Plt Count MPV Neut % (Auto) Lymph % (Auto) [place] % (Auto) Eos % (Auto) Baso % (Auto) Neut # (Auto) Lymph # (Auto) [place] # (Auto) Eos # (Auto) Baso # (Auto) Puncture Site pCO2 pO2 HCO3 ABG pH ABG Total CO2 ABG O2 Saturation ABG Base Excess ABG Hemoglobin ABG Carboxyhemoglobin POC ABG HHb (Measured) ABG Methemoglobin Jamey Test A-a O2 Difference Respiratory Index Hgb O2 Saturation Vent Mode Mechanical Rate FiO2 Tidal Volume PEEP Sodium 153 H Potassium 3.2 L Chloride 112 H Carbon Dioxide 30 Anion Gap 13 BUN 24 H Creatinine 1.0 Est GFR ( Amer) > 60 Est GFR (Non-Af Amer) > 60 POC Glucose (mg/dL) 346 H Random Glucose 154 H Calcium 8.9 Oxycodone Screen Ur Oxycodone GC/MS Ur Oxycodone Comment Fingerstick Blood Sugar Results: 197 Review of Systems - Review of Systems Systems not reviewed;Unavailable: Other (status post tracheostomy) Assessment/Plan (1) Status post tracheostomy Current Visit: No Status: Acute Comment: continue ICU care for now Continue antibiotics Continue sedation follow-up lactate level IV fluids Free water for hypernatremia Potassium supplement
--- NOTE | 2018-05-20 19:16 | PN ---
DATE: 05/20/2018 SUBJECTIVE: The patient is currently on Precedex on a ventilator. Blood pressure was elevated earlier and the patient required Coreg. No reported ventricular arrhythmia. PHYSICAL EXAMINATION: VITAL SIGNS: Blood pressure 161/72, heart rate 68, respirations 18, temperature 98.6. HEENT: Normocephalic. CHEST: Without rhonchi. HEART: S1, S2 regular. ABDOMEN: Soft. EXTREMITIES: Trace leg edema. LABORATORY DATA: Today's hemoglobin and hematocrit are 11 and 33.9. White count and platelet count are within normal limits. SMA-7: Sodium 153, potassium 3.2, chloride 112, CO2 30, glucose 154, BUN 24, and creatinine 1. Today's chest x-ray report low lung volumes, crowded bronchovascular markings and mild bibasilar atelectasis. ASSESSMENT: 1. Acute respiratory failure. The patient is requiring mechanical ventilator. 2. History of cerebrovascular accident. 3. Coronary artery disease, status post coronary artery bypass surgery. 4. Dehydration, hypernatremia, hyperchloremia, and azotemia. 5. Uncontrolled diabetes mellitus. 6. Hypertension. 7. Rule out underlying sepsis. Blood culture is negative after 24 hours. RECOMMENDATIONS: Continue aspirin 81 mg once a day, Coreg 12.5 mg twice a day, albuterol inhaler, D5 normal saline at 100 mL an hour, Haldol 1 mg IM every 6 hours p.r.n., Keppra 500 mg twice a day via gastrostomy tube, Milk of Magnesia 30 mL daily, Lovenox 40 mg twice daily, vancomycin 1 gm intravenously daily, and Zosyn 3.675 gm intravenously every 6 hours. Luke Gibbs MD
[2018-05-20] MEDS: Vancomycin 1 gm/NS 200 ml 1 GM/200 ML BAG IVPB SCH (21:57)
[2018-05-21] MEDS: (Novolog) Insulin Aspart, Recombinant 100 u/ml 10 ml vial SC SCH ×4 (00:17→17:57)
[2018-05-21] MEDS: Albuterol-Ipratrop 3 mg / 0.5 (3 ml) UD INH SCH ×4 (01:31→20:05)
[2018-05-21] MEDS: Dexmedetomidine Hydrochloride 200 MCG in Sodium Chloride 0.9% 48 ML IV PRN ×6 (01:35→22:16)
--- NOTE | 2018-05-21 03:20 | CP.PCM.PN ---
Subjective - Date & Time of Evaluation Date of Evaluation: 05/20/18 Time of Evaluation: 18:00 - Subjective Subjective: Patient seen and examined, fever has gone down, on peg feeds, Accu check insulin sliding scale,. his tracheotomy secretions is not frankly purulent Remained restless and agitated On Precedex drip and Ativan as needed Started peg feeding afebrile Objective - Vital Signs/Intake and Output Vital Signs (last 24 hours): Temp Pulse Resp BP Pulse Ox 98 F 71 18 156/69 H 100 05/21/18 00:00 05/21/18 01:00 05/21/18 01:00 05/21/18 00:51 05/21/18 01:00 Intake and Output: 05/20/18 05/21/18 18:59 06:59 Intake Total 1711.6 557.2 Output Total 650 400 Balance 1061.6 157.2 - Medications Medications: Current Medications Albuterol/Ipratropium (Duoneb 3 Mg/0.5 Mg (3 Ml) Ud) 3 ml INH RQ6 [facility] Last Admin: 05/21/18 01:31 Dose: 3 ml Ascorbic Acid (Vitamin C 250 Mg Tab) 250 mg GT DAILY [facility] Last Admin: 05/20/18 10:02 Dose: 250 mg Aspirin (Aspirin Chewable) 81 mg GT DAILY [facility] Last Admin: 05/20/18 10:00 Dose: 81 mg Carvedilol (Coreg) 12.5 mg GT BID [facility] Last Admin: 05/20/18 18:00 Dose: Not Given Enoxaparin Sodium (Lovenox) 40 mg SC DAILY [facility] Last Admin: 05/20/18 10:00 Dose: 40 mg Ferrous Sulfate (Feosol Liq) 300 mg PO DAILY [facility] Last Admin: 05/20/18 10:01 Dose: 300 mg Haloperidol Lactate (Haldol) 1 mg IM Q6H PRN PRN Reason: Agitation Last Admin: 05/19/18 23:05 Dose: 1 mg Dexmedetomidine HCl 200 mcg/ (Sodium Chloride) 50 mls @ 3.4 mls/hr IV TITR PRN ; Protocol; 0.2 MCG/KG/HR PRN Reason: Sedation Last Admin: 05/21/18 01:35 Dose: 0.8 mcg/kg/hr, 13.6 mls/hr Piperacillin Sod/Tazobactam Sod (Zosyn 3.375 Gm Iv Premix) 3.375 gm in 50 mls @ 100 mls/hr IVPB Q6H [facility] PRN Reason: Protocol Last Admin: 05/20/18 21:06 Dose: 100 mls/hr Vancomycin/Sodium Chloride (Vancomycin 1 Gm/Ns 200 Ml) 1 gm in 200 mls @ 167 mls/hr IVPB Q24H [facility] PRN Reason: Protocol Stop: 05/23/18 22:01 Last Admin: 05/20/18 21:57 Dose: 167 mls/hr Dextrose/Sodium Chloride (Dextrose 5%/0.45% Ns 1000 Ml) 1,000 mls @ 60 mls/hr IV .[id number] [facility] Last Admin: 05/20/18 19:05 Dose: 60 mls/hr Insulin Aspart (Novolog) 0 unit SC Q6 [facility] PRN Reason: Protocol Last Admin: 05/21/18 00:17 Dose: 2 units Insulin Detemir (Levemir) 30 unit SC Q12 [facility] Last Admin: 05/19/18 11:00 Dose: 30 units Levetiracetam (Keppra) 500 mg GT Q12H [facility] Last Admin: 05/20/18 18:50 Dose: 500 mg Magnesium Hydroxide (Milk Of Magnesia) 30 ml GT Q24H PRN PRN Reason: Constipation Last Admin: 05/20/18 05:43 Dose: 30 ml Multivitamins/Vitamin C (Multi-Delyn Liquid) 5 ml GT DAILY [facility] Last Admin: 05/20/18 10:01 Dose: 5 ml Pantoprazole Sodium (Protonix Susp) 40 mg PEG 1000 [facility] Last Admin: 05/20/18 10:00 Dose: 40 mg Tamsulosin HCl (Flomax) 0.4 mg PEG DAILY [facility] Last Admin: 05/20/18 10:00 Dose: 0.4 mg Valproate Sodium (Depakene Oral Soln) 500 mg GT Q12H [facility] Last Admin: 05/20/18 18:50 Dose: 500 mg Zinc Sulfate (Zinc Sulfate 220 Mg Cap) 220 mg GT DAILY [facility] Last Admin: 05/20/18 10:00 Dose: 220 mg - Labs Labs: 05/20/18 06:51 05/20/18 06:51 - Constitutional Appears: No Acute Distress, Chronically Ill - Head Exam Head Exam: ATRAUMATIC, NORMAL INSPECTION, NORMOCEPHALIC - Eye Exam Eye Exam: EOMI, Normal appearance, PERRL Pupil Exam: NORMAL ACCOMODATION, PERRL - Respiratory Exam Respiratory Exam: Decreased Breath Sounds, Rales - Cardiovascular Exam Cardiovascular Exam: REGULAR RHYTHM, +S1, +S2. absent: Murmur - GI/Abdominal Exam GI & Abdominal Exam: Soft, Normal Bowel Sounds. absent: Tenderness - Rectal Exam Rectal Exam: Deferred Assessment and Plan (1) CKD (chronic kidney disease) Status: Acute (2) COPD (chronic obstructive pulmonary disease) Status: Acute (3) Dehydration Status: Acute (4) Diabetes Status: Acute (5) Ischemic encephalopathy Status: Acute (6) Sepsis Status: Acute (7) Status post tracheostomy Status: Acute
[2018-05-21] MEDS: Piperacill/Tazo 3.375gm in Dex 3.375 GM/50 ML BAG IVPB SCH ×4 (03:25→21:30)
[2018-05-21] MEDS: levETIRAcetam 100 mg/ml (5ml) Oral Syringe GT SCH ×2 (06:24→17:51)
[2018-05-21 06:26] LABS: BASO % 0.7 % (0.0-2.0); EOS # 0.1 K/uL (0.0-0.7); EOS % 1.3 % (0.0-4.0); HEMOGLOBIN 10.9 g/dL (12.0-18.0); LYMPH # 2.3 K/uL (1.0-4.3); LYMPH % 30.1 % (20.0-40.0); MEAN CELL VOLUME 92.9 fL (80.0-94.0); MEAN CORPUSCULAR HEMOGLOBIN 30.3 pg (27.0-31.0); MEAN CORPUSCULAR HGB CONC 32.7 g/dL (33.0-37.0); MEAN PLATELET VOLUME 12.1 fL (7.2-11.7); MONO # 0.6 K/uL (0.0-0.8); MONO % 7.5 % (0.0-10.0); NEUT # 4.6 K/uL (1.8-7.0); NEUT % 60.4 % (50.0-75.0); NRBC % 0.1 % (0.0-2.0); RBC 3.59 Mil/uL (4.40-5.90); RED CELL DISTRIBUTION WIDTH 14.2 % (11.5-14.5); WHITE BLOOD COUNT 7.6 K/uL (4.8-10.8)
[2018-05-21 06:35] LABS: ALB/GLOB RATIO 0.9 (1.0-2.1); ALBUMIN 3.2 g/dL (3.5-5.0); ALT/SGPT 16 U/L (21-72); AST/SGOT 19 U/L (17-59); BLOOD UREA NITROGEN 18 mg/dL (9-20); CALCIUM 8.6 mg/dl (8.6-10.4); GFR AFRICAN-AMERICAN > 60; GFR NON-AFRICAN AMERICAN > 60
[2018-05-21] MEDS: Valproic Acid 250 mg/5 ml UD Cup GT SCH ×2 (07:28→17:51)
[2018-05-21] MEDS: Multiple Vitamins Oral Solution GT SCH (09:21)
[2018-05-21] MEDS: Ferrous Sulfate 300 mg/5 mL Liq UD PO SCH (09:22)
[2018-05-21] MEDS: Enoxaparin 40 mg Syringe SC SCH (09:23)
[2018-05-21] MEDS: Pantoprazole 40 mg Susp UD PEG SCH (09:39)
--- NOTE | 2018-05-21 11:14 | RAD ---
HISTORY: respiratory distress COMPARISON: 05/20/2018. FINDINGS: There is stable appearance of the tracheostomy tube. LUNGS: There are low lung volumes. There is mild pulmonary venous congestion. PLEURA: Suspect small pleural effusion on the left, no pneumothorax apparent. CARDIOVASCULAR: There is mild cardiomegaly. Status post CABG. OSSEOUS STRUCTURES: No significant abnormalities. VISUALIZED UPPER ABDOMEN: Normal. OTHER FINDINGS: None. IMPRESSION: Mild cardiomegaly and pulmonary venous congestion. Small left pleural effusion.
--- NOTE | 2018-05-21 12:04 | CP.CCUPN ---
<Desi Pulliam - Last Filed: 05/21/18 17:48> CCU Subjective - Physician Review Subjective (Free Text): 05/21/18 11:55 Pt seen and examined at bedside. No acute events overnight. Afebrile overnight. Patient agitated this am, given dose of Haldol. Currently opening eyes spontaneously. No reaction to painful stimuli. Trach and PEG in place. Minimal trach secretions this morning. Currently on PRVC settings. PEG tube in place, feedings have been restarted. Stanley in place draining light yellow urine. ROS unobtainable due to AMS. Critical Care Time Spent (in minutes): 45 CCU Objective - Vital Signs / Intake & Output Vital Signs (Last 4 hours): Vital Signs Temp Pulse Resp BP Pulse Ox 05/21/18 11:00 67 18 100 05/21/18 10:51 66 18 163/75 H 100 05/21/18 10:00 58 L 18 100 05/21/18 09:51 58 L 18 170/73 H 99 05/21/18 09:22 62 18 98 05/21/18 09:21 153/73 H 05/21/18 09:00 63 18 100 05/21/18 08:51 69 15 142/72 05/21/18 08:00 98.5 F 73 10 L Intake and Output (Last 8hrs): Intake & Output 05/20/18 05/21/18 05/21/18 22:59 06:59 14:59 Intake Total 1100.7 1222.6 655 Output Total 650 850 300 Balance 450.7 372.6 355 Intake: IV 116 84 50 Intake, IV Amount 734.7 588.6 330 Left Antecubital 94.7 108.6 70 Right Wrist 640 480 260 Oral 0 0 0 Tube Feeding 150 175 Other 250 400 100 Output: Urine 650 850 300 Condom 650 850 300 Stool 0 - Physical Exam Physical Exam Limitations: Positive for: Altered Mental Status Head: Positive for: Atraumatic, Normocephalic Pupils: Positive for: PERRL, Other (corneal reflex intact B/L) Mouth: Positive for: Moist Mucous Membranes Respiratory/Chest: Positive for: Clear to Auscultation. Negative for: Respiratory Distress, Wheezes, Rales, Rhonchi Cardiovascular: Positive for: Regular Rate and Rhythm, Normal S1, S2 Abdomen: Positive for: Normal Bowel Sounds. Negative for: Tenderness, Distention, Peritoneal Signs Upper Extremity: Positive for: Normal Inspection. Negative for: Edema Lower Extremity: Positive for: Other (decrease DP pulses B/L; necrotic skin changes noted R>L toes ). Negative for: Edema Neurological: Positive for: Other (not reacting to painful stimuli, corneal reflex intact, PERRLA ). Negative for: GCS=15, CN II-XII Intact, Speech Normal Skin: Positive for: Other (pressure ulcers stage 1 noted on B/L heels. necrotic skin changes noted on right toes and left toes ) Psychiatric: Positive for: Agitated - Medications Active Medications: Active Medications Generic Name Dose Route Start Last Admin Trade Name Freq PRN Reason Stop Dose Admin Albuterol/Ipratropium 3 ml 05/18/18 20:00 05/21/18 07:25 Duoneb 3 Mg/0.5 Mg (3 Ml) Ud INH 3 ml RQ6 SHINE Administration Ascorbic Acid 250 mg 05/19/18 10:00 05/21/18 09:21 Vitamin C 250 Mg Tab GT 250 mg DAILY SHINE Administration Aspirin 81 mg 05/19/18 10:00 05/21/18 09:21 Aspirin Chewable GT 81 mg DAILY SHINE Administration Carvedilol 12.5 mg 05/18/18 18:45 05/21/18 09:21 Coreg GT 12.5 mg BID SHINE Administration Enoxaparin Sodium 40 mg 05/19/18 10:00 05/21/18 09:23 Lovenox SC 40 mg DAILY SHINE Administration Ferrous Sulfate 300 mg 05/19/18 10:00 05/21/18 09:22 Feosol Liq PO 300 mg DAILY SHINE Administration Haloperidol Lactate 1 mg 05/18/18 22:00 05/21/18 08:09 Haldol IM 1 mg Q6H PRN Administration Agitation Dexmedetomidine HCl 200 mcg/ 50 mls @ 3.4 mls/hr 05/18/18 21:15 05/21/18 10: 22 Sodium Chloride IV 0.8 mcg/kg/hr TITR PRN 13.6 mls/hr Sedation Administration Protocol 0.2 MCG/KG/HR Piperacillin Sod/Tazobactam Sod 3.375 gm in 50 mls @ 100 mls/hr 05/18/18 22: 00 05/21/18 09:39 Zosyn 3.375 Gm Iv Premix IVPB 100 mls/hr Q6H SHINE Administration Protocol Vancomycin/Sodium Chloride 1 gm in 200 mls @ 167 mls/hr 05/18/18 22:00 21:57 Vancomycin 1 Gm/Ns 200 Ml IVPB 05/23/18 22:01 167 mls/hr Q24H SHINE Administration Protocol Insulin Aspart 0 unit 05/19/18 06:00 05/21/18 11:29 Novolog SC 6 units Q6 SHINE Administration Protocol Insulin Detemir 30 unit 05/18/18 22:00 05/19/18 11:00 Levemir SC 30 units Q12 SHINE Administration Levetiracetam 500 mg 05/18/18 18:45 05/21/18 06:24 Keppra GT 500 mg Q12H SHINE Administration Multivitamins/Vitamin C 5 ml 05/19/18 10:00 05/21/18 09:21 Multi-Delyn Liquid GT 5 ml DAILY SHINE Administration Pantoprazole Sodium 40 mg 05/19/18 10:00 05/21/18 09:39 Protonix Susp PEG 40 mg 1000 SHINE Administration Tamsulosin HCl 0.4 mg 05/19/18 10:00 05/21/18 09:22 Flomax PEG 0.4 mg DAILY SHINE Administration Valproate Sodium 500 mg 05/18/18 18:45 05/21/18 07:28 Depakene Oral Soln GT 500 mg Q12H SHINE Administration Zinc Sulfate 220 mg 05/19/18 10:00 05/21/18 09:22 Zinc Sulfate 220 Mg Cap GT 220 mg DAILY SHINE Administration - Patient Studies Lab Studies: Microbiology Studies 05/19/18 20:05 Urine Culture - Final Urine 10-50,000 CFU/ML. MULTIPLE SPECIES. PROBABLE CONTAMINATION. 05/18/18 22:46 Gram Stain - Final Trachasp Sputum Culture - Final NORMAL ORAL HALEY 05/18/18 21:16 Blood Culture - Preliminary Blood-Venous NO GROWTH AFTER 48 HOURS 05/18/18 21:46 Blood Culture - Preliminary Blood-Venous NO GROWTH AFTER 48 HOURS 05/18/18 21:18 MRSA Culture (Admit) - Final Nose MRSA NOT DETECTED Lab Studies 05/21/18 05/21/18 05/21/18 Range/Units 11:15 06:25 06:13 WBC (4.8-10.8) K/uL RBC (4.40-5.90) Mil/uL Hgb (12.0-18.0) g/dL Hct (35.0-51.0) % MCV (80.0-94.0) fL MCH (27.0-31.0) pg MCHC (33.0-37.0) g/dL RDW (11.5-14.5) % Plt Count (130-400) K/uL MPV (7.2-11.7) fL Neut % (Auto) (50.0-75.0) % Lymph % (Auto) (20.0-40.0) % [place] % (Auto) (0.0-10.0) % Eos % (Auto) (0.0-4.0) % Baso % (Auto) (0.0-2.0) % Neut # (Auto) (1.8-7.0) K/uL Lymph # (Auto) (1.0-4.3) K/uL [place] # (Auto) (0.0-0.8) K/uL Eos # (Auto) (0.0-0.7) K/uL Baso # (Auto) (0.0-0.2) K/uL Sodium 146 (132-148) mmol/L Potassium 4.2 (3.6-5.2) mmol/L Chloride 111 H (98-107) mmol/L Carbon Dioxide 25 (22-30) mmol/L Anion Gap 15 (10-20) BUN 18 (9-20) mg/dL Creatinine 1.1 (0.8-1.5) mg/dL Est GFR ( Amer) > 60 Est GFR (Non-Af Amer) > 60 POC Glucose (mg/dL) 310 H 358 H (65-110) mg/dL Random Glucose 337 H (75-110) mg/dL Calcium 8.6 (8.6-10.4) mg/dl Phosphorus 2.7 (2.5-4.5) mg/dL Magnesium 2.0 (1.6-2.3) mg/dL Total Bilirubin 0.5 (0.2-1.3) mg/dL AST 19 (17-59) U/L ALT 16 L D (21-72) U/L Alkaline Phosphatase 101 (38-126) U/L Total Protein 6.7 (6.3-8.3) g/dL Albumin 3.2 L (3.5-5.0) g/dL Globulin 3.5 (2.2-3.9) gm/dL Albumin/Globulin Ratio 0.9 L (1.0-2.1) Ur Opiates (GC/MS) (Negative) 300 Ur Methadone, Qual (Negative) 300 Urine Propoxyphene (Negative) 300 Ur Propoxyphene Confrm (()) Methaqualone (Negative) 300 U Methaqualone Confirm (()) Ur Barbiturates, Qual (Negative) 300 Ur Phencyclidine (PCP) (Negative) 25 Urine PCP Confirm (()) Ur Amphetamines Screen (Negative) 1000 U Methamphetamin GC/MS (()) U Phenobarbital Confirm (()) U [id number] Conf (()) U Benzodiazepines Qual (Negative) 300 Urine Cocaine (Negative) 300 Urine Cocaine Confirm (()) THC Confirmation (()) U Marijuana (THC) Screen (Negative) 50 Drugs of Abuse Note 05/21/18 05/21/18 05/20/18 Range/Units 06:13 00:08 17:33 WBC 7.6 (4.8-10.8) K/uL RBC 3.59 L (4.40-5.90) Mil/uL Hgb 10.9 L (12.0-18.0) g/dL Hct 33.4 L (35.0-51.0) % MCV 92.9 (80.0-94.0) fL MCH 30.3 (27.0-31.0) pg MCHC 32.7 L (33.0-37.0) g/dL RDW 14.2 (11.5-14.5) % Plt Count 219 (130-400) K/uL MPV 12.1 H (7.2-11.7) fL Neut % (Auto) 60.4 (50.0-75.0) % Lymph % (Auto) 30.1 (20.0-40.0) % [place] % (Auto) 7.5 (0.0-10.0) % Eos % (Auto) 1.3 (0.0-4.0) % Baso % (Auto) 0.7 (0.0-2.0) % Neut # (Auto) 4.6 (1.8-7.0) K/uL Lymph # (Auto) 2.3 (1.0-4.3) K/uL [place] # (Auto) 0.6 (0.0-0.8) K/uL Eos # (Auto) 0.1 (0.0-0.7) K/uL Baso # (Auto) 0.0 (0.0-0.2) K/uL Sodium (132-148) mmol/L Potassium (3.6-5.2) mmol/L Chloride (98-107) mmol/L Carbon Dioxide (22-30) mmol/L Anion Gap (10-20) BUN (9-20) mg/dL Creatinine (0.8-1.5) mg/dL Est GFR ( Amer) Est GFR (Non-Af Amer) POC Glucose (mg/dL) 333 H 394 H (65-110) mg/dL Random Glucose (75-110) mg/dL Calcium (8.6-10.4) mg/dl Phosphorus (2.5-4.5) mg/dL Magnesium (1.6-2.3) mg/dL Total Bilirubin (0.2-1.3) mg/dL AST (17-59) U/L ALT (21-72) U/L Alkaline Phosphatase (38-126) U/L Total Protein (6.3-8.3) g/dL Albumin (3.5-5.0) g/dL Globulin (2.2-3.9) gm/dL Albumin/Globulin Ratio (1.0-2.1) Ur Opiates (GC/MS) (Negative) 300 Ur Methadone, Qual (Negative) 300 Urine Propoxyphene (Negative) 300 Ur Propoxyphene Confrm (()) Methaqualone (Negative) 300 U Methaqualone Confirm (()) Ur Barbiturates, Qual (Negative) 300 Ur Phencyclidine (PCP) (Negative) 25 Urine PCP Confirm (()) Ur Amphetamines Screen (Negative) 1000 U Methamphetamin GC/MS (()) U Phenobarbital Confirm (()) U h-LM-[id number] Conf (()) U Benzodiazepines Qual (Negative) 300 Urine Cocaine (Negative) 300 Urine Cocaine Confirm (()) THC Confirmation (()) U Marijuana (THC) Screen (Negative) 50 Drugs of Abuse Note 05/20/18 05/18/18 Range/Units 11:22 09:45 WBC (4.8-10.8) K/uL RBC (4.40-5.90) Mil/uL Hgb (12.0-18.0) g/dL Hct (35.0-51.0) % MCV (80.0-94.0) fL MCH (27.0-31.0) pg MCHC (33.0-37.0) g/dL RDW (11.5-14.5) % Plt Count (130-400) K/uL MPV (7.2-11.7) fL Neut % (Auto) (50.0-75.0) % Lymph % (Auto) (20.0-40.0) % [place] % (Auto) (0.0-10.0) % Eos % (Auto) (0.0-4.0) % Baso % (Auto) (0.0-2.0) % Neut # (Auto) (1.8-7.0) K/uL Lymph # (Auto) (1.0-4.3) K/uL [place] # (Auto) (0.0-0.8) K/uL Eos # (Auto) (0.0-0.7) K/uL Baso # (Auto) (0.0-0.2) K/uL Sodium (132-148) mmol/L Potassium (3.6-5.2) mmol/L Chloride (98-107) mmol/L Carbon Dioxide (22-30) mmol/L Anion Gap (10-20) BUN (9-20) mg/dL Creatinine (0.8-1.5) mg/dL Est GFR ( Amer) Est GFR (Non-Af Amer) POC Glucose (mg/dL) 346 H (65-110) mg/dL Random Glucose (75-110) mg/dL Calcium (8.6-10.4) mg/dl Phosphorus (2.5-4.5) mg/dL Magnesium (1.6-2.3) mg/dL Total Bilirubin (0.2-1.3) mg/dL AST (17-59) U/L ALT (21-72) U/L Alkaline Phosphatase (38-126) U/L Total Protein (6.3-8.3) g/dL Albumin (3.5-5.0) g/dL Globulin (2.2-3.9) gm/dL Albumin/Globulin Ratio (1.0-2.1) Ur Opiates (GC/MS) Negative (Negative) 300 Ur Methadone, Qual Negative (Negative) 300 Urine Propoxyphene Negative (Negative) 300 Ur Propoxyphene Confrm (()) Methaqualone Negative (Negative) 300 U Methaqualone Confirm (()) Ur Barbiturates, Qual Negative (Negative) 300 Ur Phencyclidine (PCP) Negative (Negative) 25 Urine PCP Confirm (()) Ur Amphetamines Screen Negative (Negative) 1000 U Methamphetamin GC/MS (()) U Phenobarbital Confirm (()) U [id number]-[id number] Conf (()) U Benzodiazepines Qual Negative (Negative) 300 Urine Cocaine Negative (Negative) 300 Urine Cocaine Confirm (()) THC Confirmation (()) U Marijuana (THC) Screen Negative (Negative) 50 Drugs of Abuse Note See note Laboratory Results - last 24 hr 05/18/18 05/20/18 05/20/18 09:45 11:22 17:33 WBC RBC Hgb Hct MCV MCH MCHC RDW Plt Count MPV Neut % (Auto) Lymph % (Auto) [place] % (Auto) Eos % (Auto) Baso % (Auto) Neut # (Auto) Lymph # (Auto) [place] # (Auto) Eos # (Auto) Baso # (Auto) Sodium Potassium Chloride Carbon Dioxide Anion Gap BUN Creatinine Est GFR ( Amer) Est GFR (Non-Af Amer) POC Glucose (mg/dL) 346 H 394 H Random Glucose Calcium Phosphorus Magnesium Total Bilirubin AST ALT Alkaline Phosphatase Total Protein Albumin Globulin Albumin/Globulin Ratio Ur Opiates (GC/MS) Negative Ur Methadone, Qual Negative Urine Propoxyphene Negative Ur Propoxyphene Confrm Methaqualone Negative U Methaqualone Confirm Ur Barbiturates, Qual Negative Ur Phencyclidine (PCP) Negative Urine PCP Confirm Ur Amphetamines Screen Negative U Methamphetamin GC/MS U Phenobarbital Confirm U [id number] Conf U Benzodiazepines Qual Negative Urine Cocaine Negative Urine Cocaine Confirm THC Confirmation U Marijuana (THC) Screen Negative Drugs of Abuse Note See note 05/21/18 05/21/18 05/21/18 00:08 06:13 06:13 WBC 7.6 RBC 3.59 L Hgb 10.9 L Hct 33.4 L MCV 92.9 MCH 30.3 MCHC 32.7 L RDW 14.2 Plt Count 219 MPV 12.1 H Neut % (Auto) 60.4 Lymph % (Auto) 30.1 [place] % (Auto) 7.5 Eos % (Auto) 1.3 Baso % (Auto) 0.7 Neut # (Auto) 4.6 Lymph # (Auto) 2.3 [place] # (Auto) 0.6 Eos # (Auto) 0.1 Baso # (Auto) 0.0 Sodium 146 Potassium 4.2 Chloride 111 H Carbon Dioxide 25 Anion Gap 15 BUN 18 Creatinine 1.1 Est GFR ( Amer) > 60 Est GFR (Non-Af Amer) > 60 POC Glucose (mg/dL) 333 H Random Glucose 337 H Calcium 8.6 Phosphorus 2.7 Magnesium 2.0 Total Bilirubin 0.5 AST 19 ALT 16 L D Alkaline Phosphatase 101 Total Protein 6.7 Albumin 3.2 L Globulin 3.5 Albumin/Globulin Ratio 0.9 L Ur Opiates (GC/MS) Ur Methadone, Qual Urine Propoxyphene Ur Propoxyphene Confrm Methaqualone U Methaqualone Confirm Ur Barbiturates, Qual Ur Phencyclidine (PCP) Urine PCP Confirm Ur Amphetamines Screen U Methamphetamin GC/MS U Phenobarbital Confirm U g-II-Wbufbuncjt Conf U Benzodiazepines Qual Urine Cocaine Urine Cocaine Confirm THC Confirmation U Marijuana (THC) Screen Drugs of Abuse Note 05/21/18 05/21/18 06:25 11:15 WBC RBC Hgb Hct MCV MCH MCHC RDW Plt Count MPV Neut % (Auto) Lymph % (Auto) [place] % (Auto) Eos % (Auto) Baso % (Auto) Neut # (Auto) Lymph # (Auto) [place] # (Auto) Eos # (Auto) Baso # (Auto) Sodium Potassium Chloride Carbon Dioxide Anion Gap BUN Creatinine Est GFR ( Amer) Est GFR (Non-Af Amer) POC Glucose (mg/dL) 358 H 310 H Random Glucose Calcium Phosphorus Magnesium Total Bilirubin AST ALT Alkaline Phosphatase Total Protein Albumin Globulin Albumin/Globulin Ratio Ur Opiates (GC/MS) Ur Methadone, Qual Urine Propoxyphene Ur Propoxyphene Confrm Methaqualone U Methaqualone Confirm Ur Barbiturates, Qual Ur Phencyclidine (PCP) Urine PCP Confirm Ur Amphetamines Screen U Methamphetamin GC/MS U Phenobarbital Confirm U [id number] Conf U Benzodiazepines Qual Urine Cocaine Urine Cocaine Confirm THC Confirmation U Marijuana (THC) Screen Drugs of Abuse Note Fingerstick Blood Sugar Results: 310 Review of Systems - Review of Systems Systems not reviewed;Unavailable: Altered Mental Status Critical Care Progress Note - Ventilator Checklist Head of Bed 30 Degrees: Yes PUD Prophalyxis: Yes DVT Prophylaxis: Yes - Vent Settings MODE:: PRVC Assessment/Plan - Assessment and Plan (Free Text) Assessment: 68 year old male with PMHx of IDDM, HTN, CAD s/p CABg, 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 Patient was admitted to ICU after having [employer]ITCH[employer] called on floor which subsequently turned into Code Blue. Patient ROSC after being down for 5 minutes. Neurology - 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 However, unsure about baseline mental status. - 05/21: Will check CT of head today - Currently on sedation with precedex 200 mcg - Seizure prophylaxis: Keppra 500 mg GT q12, Valproate 500 mg GT q12 - Haldol 1 mg IM q6 prn for agitation Cardiology - Hx of CAD with CABG - Continue Aspirin, Coreg - Troponins on admission were negative - 05/21: Necrotic skin changes noted on B/L LE. Will check arterial duplex Pulmonology - On admission, pt was noted to have increased trach secretions and concern for aspiration . - Sputum and blood cultures negative - Currently on PRVC 40% 5, 18, 500 - Continue Abx: Zosyn and vanco - Continue duoneb 3 ml q6 GI - PEG tube in place. Abd x ray done on admission was normal and tube feedings were restarted. - Continue Glucerna with goal rate of 55 cc - Stanley in place - Continue Flomax Renal - BUN/Cr: 18/1.1 - Continue to monitor function ID - Concern for aspiration pneumonia. On day 4 of abx (zosyn and vanco) - Negative procal - Negative blood and sputum and urine cultures Psych - Agitation: haldol prn Derm - Necrotic skin changes noted on B/L LE as well as stage 1 pressure ulcers on B/ L heels - Wound care consulted - Continue multipodus boots and position changes q2h - Will check arterial duplex in LE - Continue zinc sulfate multivit and vitamin c Prophylaxis - GI: protonix - DVT: Lovenox - Multipodus boot Case discussed with attending, Dr. Ulloa - Date & Time Date: 05/21/18 Time: 12:10 <Bill Ulloa - Last Filed: 05/28/18 09:07> CCU Objective - Vital Signs / Intake & Output Intake and Output (Last 8hrs): Intake & Output 05/27/18 05/28/18 05/28/18 22:59 06:59 14:59 Intake Total 900 940 Output Total 300 200 Balance 600 740 Intake: Intake, IV Amount 100 100 Left Wrist 100 100 Oral 340 600 Tube Feeding 160 240 Other 300 Output: Urine 300 200 Condom 300 200 Other: # Bowel Movements 1 - Medications Active Medications: Active Medications Generic Name Dose Route Start Last Admin Trade Name Freq PRN Reason Stop Dose Admin Albuterol/Ipratropium 3 ml 05/23/18 14:00 05/28/18 07:15 Duoneb 3 Mg/0.5 Mg (3 Ml) Ud INH 3 ml RQ6 SHINE Administration Ascorbic Acid 500 mg 05/26/18 10:00 05/27/18 09:20 Vitamin C 500 Mg Tab PO 500 mg DAILY SHINE Administration Aspirin 81 mg 05/19/18 10:00 05/27/18 09:23 Aspirin Chewable GT 81 mg DAILY SHINE Administration Carvedilol 12.5 mg 05/18/18 18:45 05/27/18 17:57 Coreg GT 12.5 mg BID SHINE Administration Enoxaparin Sodium 40 mg 05/19/18 10:00 05/27/18 09:20 Lovenox SC 40 mg DAILY SHINE Administration Ferrous Sulfate 300 mg 05/19/18 10:00 05/27/18 09:19 Feosol Liq PO 300 mg DAILY SHINE Administration Haloperidol 2 mg 05/25/18 14:00 05/28/18 06:28 Haldol PO 2 mg Q8 SHINE Administration Aztreonam 1 gm/ Sodium 100 mls @ 100 mls/hr 05/22/18 23:30 05/27/18 23:21 Chloride IVPB 100 mls/hr Q12H SHINE Administration Protocol Daptomycin 420 mg/ Sodium 100 mls @ 100 mls/hr 05/25/18 21:30 05/27/18 20:55 Chloride IV 05/30/18 21:31 100 mls/hr Q24H SHINE Administration Insulin Aspart 0 unit 05/24/18 00:00 05/28/18 06:24 Novolog SC Not Given Q6 SHINE Protocol Insulin Detemir 20 unit 05/26/18 08:51 05/27/18 21:02 Levemir SC 20 u Q12 SHINE Administration Levetiracetam 500 mg 05/18/18 18:45 05/28/18 06:28 Keppra GT 500 mg Q12H SHINE Administration Lorazepam 1 mg 05/22/18 18:29 05/26/18 03:54 Ativan IVP 1 mg Q6H PRN Administration Agitation Losartan Potassium 50 mg 05/21/18 18:00 05/27/18 17:57 Cozaar PEG 50 mg BID SHINE Administration Multivitamins/Vitamin C 5 ml 05/19/18 10:00 05/27/18 09:20 Multi-Delyn Liquid GT 5 ml DAILY SHINE Administration Mupirocin 0 gm 05/27/18 10:00 05/27/18 14:22 Bactroban Ointment TOP 1 dose DAILY SHINE Administration Pantoprazole Sodium 40 mg 05/24/18 22:03 05/27/18 09:20 Protonix Susp PEG 40 mg 1000 SHINE Administration Quetiapine Fumarate 25 mg 05/26/18 10:00 05/27/18 09:20 Seroquel PO 25 mg DAILY SHINE Administration Tamsulosin HCl 0.4 mg 05/19/18 10:00 05/27/18 09:20 Flomax PEG 0.4 mg DAILY SHINE Administration Valproate Sodium 1,000 mg 05/27/18 07:56 05/28/18 07:41 Depakene Oral Soln GT 1,000 mg Q12H SHINE Administration Zinc Sulfate 220 mg 05/26/18 10:00 05/27/18 09:20 Zinc Sulfate 220 Mg Cap PO 220 mg DAILY SHINE Administration - Patient Studies Lab Studies: Lab Studies 05/28/18 05/28/18 05/27/18 Range/Units 07:35 06:18 23:19 Sodium 144 (132-148) mmol/L Potassium 3.7 (3.6-5.2) mmol/L Chloride 107 (98-107) mmol/L Carbon Dioxide 30 (22-30) mmol/L Anion Gap 11 (10-20) BUN 25 H (9-20) mg/dL Creatinine 0.8 (0.8-1.5) mg/dL Est GFR ( Amer) > 60 Est GFR (Non-Af Amer) > 60 POC Glucose (mg/dL) 119 H 169 H (65-110) mg/dL Random Glucose 151 H (75-110) mg/dL Calcium 8.4 L (8.6-10.4) mg/dl 05/27/18 05/27/18 Range/Units 17:42 11:46 Sodium (132-148) mmol/L Potassium (3.6-5.2) mmol/L Chloride (98-107) mmol/L Carbon Dioxide (22-30) mmol/L Anion Gap (10-20) BUN (9-20) mg/dL Creatinine (0.8-1.5) mg/dL Est GFR ( Amer) Est GFR (Non-Af Amer) POC Glucose (mg/dL) 170 H 224 H (65-110) mg/dL Random Glucose (75-110) mg/dL Calcium (8.6-10.4) mg/dl Laboratory Results - last 24 hr 05/27/18 05/27/18 05/27/18 11:46 17:42 23:19 Sodium Potassium Chloride Carbon Dioxide Anion Gap BUN Creatinine Est GFR ( Amer) Est GFR (Non-Af Amer) POC Glucose (mg/dL) 224 H 170 H 169 H Random Glucose Calcium 05/28/18 05/28/18 06:18 07:35 Sodium 144 Potassium 3.7 Chloride 107 Carbon Dioxide 30 Anion Gap 11 BUN 25 H Creatinine 0.8 Est GFR ( Amer) > 60 Est GFR (Non-Af Amer) > 60 POC Glucose (mg/dL) 119 H Random Glucose 151 H Calcium 8.4 L Attending/Attestation - Attestation I have personally seen and examined this patient.: Yes I have fully participated in the care of the patient.: Yes I have reviewed all pertinent clinical information: Yes Notes (Text): pt is seen examined and reviewed with resident and agree with note
--- NOTE | 2018-05-21 12:48 | CT ---
PROCEDURE: CT HEAD WITHOUT CONTRAST HISTORY: Altered mental status COMPARISON: 02/06/2018 TECHNIQUE: Axial computed tomography images were obtained through the head/brain without intravenous contrast. Radiation dose: Total exam DLP = 1348 mGy-cm. This CT exam was performed using one or more of the following dose reduction techniques: Automated exposure control, adjustment of the mA and/or kV according to patient size, and/or use of iterative reconstruction technique. FINDINGS: HEMORRHAGE: No intracranial hemorrhage. BRAIN: Re-demonstration of an old lobar infarction in the right occipital lobe with volume loss and ex vacuo dilatation of the occipital horn of the lateral ventricle. Old lacunar infarctions in the bilateral basal ganglia. Old infarction in the left frontal subcortical white matter as well as the right inferior frontal subcortical white matter. Scattered focal lucencies in the subcortical and periventricular white matter suggestive for chronic microvascular ischemic change. Symmetric senile basal ganglia calcifications. VENTRICLES: Moderate age related global parenchymal volume loss and proportionate enlargement of the ventricles and cortical sulci. CALVARIUM: Unremarkable. PARANASAL SINUSES: Persistent polypoid mucosal thickening of the bilateral maxillary sinuses. Prominent mucosal retention cyst and or polyp measuring 2.2 centimeters in the right maxillary sinus as well as up to 9 millimeters in the left maxillary sinus. Mild mucosal thickening and hypertrophy of the sphenoid sinus. MASTOID AIR CELLS: Unremarkable as visualized. No inflammatory changes. OTHER FINDINGS: Extensive atherosclerotic vascular calcifications in the cavernous carotid arteries. IMPRESSION: 1. No acute intracranial abnormality. If there is a persistent focal neurologic deficit and or ongoing clinical concern for acute infarction, an MRI of the brain without contrast would be more sensitive for evaluation of hyperacute/acute ischemic infarction. 2. Old right [employer]OTHER[employer] SYSTEM [employer]ER territory infarction involving the right occipital lobe. 3. Old lacunar infarctions in the bilateral basal ganglia. 4. Chronic ischemic as well as chronic microangiopathic changes. 5. Moderate age related global parenchymal volume loss. 6. Sinus mucosal disease.
--- NOTE | 2018-05-21 21:19 | PN ---
DATE: 05/21/2018 SUBJECTIVE: The patient is currently on the ventilator, sedated on Precedex. At times, the patient becomes bradycardic; however, the blood pressure gets elevated when the patient becomes agitated and no reported ventricular tachycardia. OBJECTIVE: VITAL SIGNS: Blood pressure 187/82, heart rate 66, respirations 22, temperature 98.5. HEENT: Pallor is noted. CHEST: Minimal rhonchi. HEART: S1 and S2, regular. EXTREMITIES: No edema. LABORATORY DATA: Today's SMA-7; sodium 146, potassium 4.2, chloride 111, CO2 of 25, glucose 337, BUN 18, creatinine 1.1. Today's hemoglobin, hematocrit 10.9 and 33.4, white count and platelet count are within normal limits. IMAGING STUDIES: Today's head CT scan without contrast revealed no acute intracranial abnormality. 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 Old lacunar infarcts and bilateral basal ganglia. Chronic ischemic as well as chronic microangiopathic changes. Moderate age-related volume loss. Sinus mucosal disease. ASSESSMENT: 1. Acute respiratory failure. 2. 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 3. Improved dehydration and improved prerenal azotemia. 4. Uncontrolled diabetes mellitus. 5. Uncontrolled hypertension. RECOMMENDATIONS: Continue aspirin 81 mg once a day, Coreg at 12.5 mg twice a day, increase Cozaar to 50 mg daily via gastrostomy tube. Continue Haldol 1 mg IM every 6 hours p.r.n., continue Keppra 500 mg via GT tube twice a day and continue IV vancomycin 1 gm daily and IV Zosyn 3.375 gm intravenously every 6 hours. We will follow blood culture which so far has been negative after 48 hours. Luke Gibbs MD
[2018-05-21] MEDS: Vancomycin 1 gm/NS 200 ml 1 GM/200 ML BAG IVPB SCH (21:30)
--- NOTE | 2018-05-21 23:41 | CARD ---
APPROVED REPORT EKG Measurement Heart [id number] GA [id number] <Conclusion> Sinus bradycardia with marked sinus arrhythmia Otherwise normal ECG
--- NOTE | 2018-05-21 23:50 | CP.PCM.PN ---
Subjective - Date & Time of Evaluation Date of Evaluation: 05/21/18 Time of Evaluation: 15:00 - Subjective Subjective: Pt seen and examined at bedside, pt is improving, on peg feeds, insulin sliding scale, his tracheotomy secretions is not frankly purulent Objective - Vital Signs/Intake and Output Vital Signs (last 24 hours): Temp Pulse Resp BP Pulse Ox 98.0 F 86 20 151/74 H 99 05/21/18 17:24 05/21/18 22:00 05/21/18 22:00 05/21/18 21:51 05/21/18 22:00 Intake and Output: 05/21/18 05/22/18 18:59 06:59 Intake Total 1448 149 Output Total 1150 Balance 298 149 - Medications Medications: Current Medications Albuterol/Ipratropium (Duoneb 3 Mg/0.5 Mg (3 Ml) Ud) 3 ml INH RQ6 [facility] Last Admin: 05/21/18 20:05 Dose: 3 ml Ascorbic Acid (Vitamin C 250 Mg Tab) 250 mg GT DAILY [facility] Last Admin: 05/21/18 09:21 Dose: 250 mg Aspirin (Aspirin Chewable) 81 mg GT DAILY [facility] Last Admin: 05/21/18 09:21 Dose: 81 mg Carvedilol (Coreg) 12.5 mg GT BID [facility] Last Admin: 05/21/18 17:51 Dose: 12.5 mg Enoxaparin Sodium (Lovenox) 40 mg SC DAILY [facility] Last Admin: 05/21/18 09:23 Dose: 40 mg Ferrous Sulfate (Feosol Liq) 300 mg PO DAILY [facility] Last Admin: 05/21/18 09:22 Dose: 300 mg Haloperidol Lactate (Haldol) 1 mg IM Q6H PRN PRN Reason: Agitation Last Admin: 05/21/18 08:09 Dose: 1 mg Dexmedetomidine HCl 200 mcg/ (Sodium Chloride) 50 mls @ 3.4 mls/hr IV TITR PRN ; Protocol; 0.2 MCG/KG/HR PRN Reason: Sedation Last Admin: 05/21/18 22:16 Dose: 0.8 mcg/kg/hr, 13.6 mls/hr Piperacillin Sod/Tazobactam Sod (Zosyn 3.375 Gm Iv Premix) 3.375 gm in 50 mls @ 100 mls/hr IVPB Q6H [facility] PRN Reason: Protocol Last Admin: 05/21/18 21:30 Dose: 100 mls/hr Vancomycin/Sodium Chloride (Vancomycin 1 Gm/Ns 200 Ml) 1 gm in 200 mls @ 167 mls/hr IVPB Q24H [facility] PRN Reason: Protocol Stop: 05/23/18 22:01 Last Admin: 05/21/18 21:30 Dose: 167 mls/hr Insulin Aspart (Novolog) 0 unit SC Q6 [facility] PRN Reason: Protocol Last Admin: 05/21/18 17:57 Dose: 6 units Insulin Detemir (Levemir) 30 unit SC Q12 [facility] Last Admin: 05/19/18 11:00 Dose: 30 units Levetiracetam (Keppra) 500 mg GT Q12H [facility] Last Admin: 05/21/18 17:51 Dose: 500 mg Losartan Potassium (Cozaar) 50 mg PEG BID [facility] Last Admin: 05/21/18 18:29 Dose: 50 mg Multivitamins/Vitamin C (Multi-Delyn Liquid) 5 ml GT DAILY [facility] Last Admin: 05/21/18 09:21 Dose: 5 ml Pantoprazole Sodium (Protonix Susp) 40 mg PEG 1000 [facility] Last Admin: 05/21/18 09:39 Dose: 40 mg Tamsulosin HCl (Flomax) 0.4 mg PEG DAILY [facility] Last Admin: 05/21/18 09:22 Dose: 0.4 mg Valproate Sodium (Depakene Oral Soln) 500 mg GT Q12H [facility] Last Admin: 05/21/18 17:51 Dose: 500 mg Zinc Sulfate (Zinc Sulfate 220 Mg Cap) 220 mg GT DAILY [facility] Last Admin: 05/21/18 09:22 Dose: 220 mg - Labs Labs: 05/21/18 06:13 05/21/18 06:13 - Constitutional Appears: No Acute Distress - Head Exam Head Exam: ATRAUMATIC, NORMAL INSPECTION, NORMOCEPHALIC - Eye Exam Eye Exam: EOMI, Normal appearance, PERRL Pupil Exam: NORMAL ACCOMODATION, PERRL - ENT Exam ENT Exam: Mucous Membranes Moist, Normal Exam - Respiratory Exam Respiratory Exam: Decreased Breath Sounds, Rhonchi, NORMAL BREATHING PATTERN - Cardiovascular Exam Cardiovascular Exam: REGULAR RHYTHM, +S1, +S2. absent: Murmur - GI/Abdominal Exam GI & Abdominal Exam: Soft, Normal Bowel Sounds. absent: Tenderness - Rectal Exam Rectal Exam: Deferred Assessment and Plan (1) Altered mental status Status: Acute (2) CKD (chronic kidney disease) Status: Acute (3) COPD (chronic obstructive pulmonary disease) Status: Acute (4) Diabetes Status: Acute (5) Status post tracheostomy Assessment & Plan: super added infection Status: Acute (6) Ischemic encephalopathy Status: Acute
[2018-05-22] MEDS ORDERED: Acetaminophen 650mg/20.3ml solution UD PO ONE (00:42)
[2018-05-22] MEDS ORDERED: Acetaminophen 650mg/20.3ml solution UD GT ONE (00:42)
[2018-05-22] MEDS: (Novolog) Insulin Aspart, Recombinant 100 u/ml 10 ml vial SC SCH ×4 (01:00→18:45)
[2018-05-22] MEDS: Dexmedetomidine Hydrochloride 200 MCG in Sodium Chloride 0.9% 48 ML IV PRN ×6 (02:00→22:28)
[2018-05-22] MEDS: Albuterol-Ipratrop 3 mg / 0.5 (3 ml) UD INH SCH ×4 (02:08→19:44)
[2018-05-22 02:51] LABS: URINE BACTERIA RARE (<OCC); URINE BILIRUBIN NEGATIVE (NEGATIVE); URINE BLOOD 2+ (NEGATIVE); URINE CLARITY Hazy (Clear); URINE COLOR Yellow (YELLOW); URINE GLUCOSE (UA) 3+ mg/dL (Normal); URINE LEUKOCYTE ESTERASE 3+ Leu/uL (Negative); URINE PROTEIN 2+ mg/dL (NEGATIVE); URINE UROBILINOGEN NORMAL mg/dL (0.2-1.0)
[2018-05-22] MEDS: Piperacill/Tazo 3.375gm in Dex 3.375 GM/50 ML BAG IVPB SCH ×2 (03:00→10:26)
[2018-05-22 05:47] LABS: ARTERIAL BLOOD GAS HCO3 25.9 mmol/L (21-28); ARTERIAL BLOOD GAS HEMOGLOBIN 11.1 g/dL (11.7-17.4); ARTERIAL BLOOD GAS O2 SAT 99.6 % (95-98); ARTERIAL BLOOD GAS PCO2 35 mm/Hg (35-45); ARTERIAL BLOOD GAS PH 7.46 (7.35-7.45); ARTERIAL BLOOD GAS PO2 118 mm/Hg (80-100)
[2018-05-22 06:25] LABS: BASO % 0.6 % (0.0-2.0); EOS # 0.1 K/uL (0.0-0.7); EOS % 0.9 % (0.0-4.0); HEMOGLOBIN 11.2 g/dL (12.0-18.0); LYMPH # 1.9 K/uL (1.0-4.3); LYMPH % 25.8 % (20.0-40.0); MEAN CELL VOLUME 94.1 fL (80.0-94.0); MEAN CORPUSCULAR HEMOGLOBIN 30.5 pg (27.0-31.0); MEAN CORPUSCULAR HGB CONC 32.4 g/dL (33.0-37.0); MEAN PLATELET VOLUME 12.6 fL (7.2-11.7); MONO # 0.6 K/uL (0.0-0.8); MONO % 7.4 % (0.0-10.0); NEUT # 4.9 K/uL (1.8-7.0); NEUT % 65.3 % (50.0-75.0); NRBC % 0.1 % (0.0-2.0); RBC 3.66 Mil/uL (4.40-5.90); RED CELL DISTRIBUTION WIDTH 14.4 % (11.5-14.5); WHITE BLOOD COUNT 7.5 K/uL (4.8-10.8)
[2018-05-22 06:36] LABS: BLOOD UREA NITROGEN 19 mg/dL (9-20); GFR AFRICAN-AMERICAN > 60; GFR NON-AFRICAN AMERICAN > 60
[2018-05-22 06:37] LABS: ALB/GLOB RATIO 0.9 (1.0-2.1); ALBUMIN 3.2 g/dL (3.5-5.0); ALT/SGPT 11 U/L (21-72); AST/SGOT 34 U/L (17-59); CALCIUM 8.3 mg/dl (8.6-10.4)
[2018-05-22] MEDS: levETIRAcetam 100 mg/ml (5ml) Oral Syringe GT SCH ×2 (06:54→18:29)
[2018-05-22] MEDS: Valproic Acid 250 mg/5 ml UD Cup GT SCH ×2 (06:54→18:29)
[2018-05-22] MEDS: Enoxaparin 40 mg Syringe SC SCH (10:24)
[2018-05-22] MEDS: Ferrous Sulfate 300 mg/5 mL Liq UD PO SCH (10:25)
[2018-05-22] MEDS: Pantoprazole 40 mg Susp UD PEG SCH (10:26)
[2018-05-22] MEDS: Multiple Vitamins Oral Solution GT SCH (10:28)
--- NOTE | 2018-05-22 11:01 | RAD ---
HISTORY: trach with aspiration PNA COMPARISON: Chest radiograph dated 05/21/2018. FINDINGS: LUNGS: Mild bibasilar atelectasis. Peripheral right upper lung surgical clip redemonstrated PLEURA: Questionable trace left pleural effusion. No pneumothorax apparent. CARDIOVASCULAR: Prior sternotomy with sternal wires and surgical clips redemonstrated. Atherosclerotic aortic calcifications. Cardiomediastinal silhouette stably enlarged. OSSEOUS STRUCTURES: Unchanged. VISUALIZED UPPER ABDOMEN: Normal. OTHER FINDINGS: Tracheostomy, unchanged. IMPRESSION: Mild left basilar atelectasis and questionable trace left pleural effusion.
--- NOTE | 2018-05-22 12:56 | CP.PCM.CON ---
History of Present Illness - History of Present Illness History of Present Illness: Palliative consult requested by Doctor Prasanna for goals of care discussion Patient is a 68 yo male admitted [place] with PEG tube malfunctioning. Abd XRay on admission negative acute findings. Same day of admission, patient found unresponsive, than pulsless, Code Blue called. Patient was successfully resuscitated and transferred to ICU. CT head was negative. It is felt that mucus plug caused difficulties breathing in the first place. PMH: CVA,COPD,HTN,DM,PEG,trach Soc. Hx: , daughter Veronica involved in care, [place] resident Fam. Hx: Father from CVA Review of Systems - Review of Systems All systems: reviewed and no additional remarkable complaints except Review of Systems: Unresponsive, sedated. ROS obtained from nursing. Per nursing CPAP trial started this morning Past Patient History - Infectious Disease Hx of Infectious Diseases: None - Past Medical History & Family History Past Medical History?: Yes - Past Social History Smoking Status: Never Smoked - CARDIAC Hx Circulatory Problems: Yes Hx Hypercholesterolemia: Yes Hx Hypertension: Yes Hx Peripheral Vascular Disease: Yes - PULMONARY Hx Chronic Obstructive Pulmonary Disease (COPD): Yes - NEUROLOGICAL HX Cerebrovascular Accident: Yes - HEENT Hx HEENT Problems: Yes Hx Cataracts: Yes (bilateral cat ext with iol) - RENAL Hx Chronic Kidney Disease: No - ENDOCRINE/METABOLIC Hx Diabetes Mellitus Type 2: Yes - HEMATOLOGICAL/ONCOLOGICAL Hx Blood Disorders: No - INTEGUMENTARY Hx Dermatological Problems: Yes Other/Comment: small ulcers both great toes. bilateral lower ext scratches ( scabs), discolored brownish looking. - MUSCULOSKELETAL/RHEUMATOLOGICAL Hx Falls: No - GASTROINTESTINAL Hx Gastrointestinal Disorders: Yes Other/Comment: Peg tube feeder. - GENITOURINARY/GYNECOLOGICAL Hx Genitourinary Disorders: No - PSYCHIATRIC Hx Substance Use: No - SURGICAL HISTORY Hx Coronary Artery Bypass Graft: Yes - ANESTHESIA Hx Anesthesia: Yes Hx Anesthesia Reactions: No Hx Malignant Hyperthermia: No Meds Allergies/Adverse Reactions: Allergies Allergy/AdvReac Type Severity Reaction Status Date / Time No Known Allergies Allergy Verified 05/17/18 17:43 - Medications Medications: Current Medications Albuterol/Ipratropium (Duoneb 3 Mg/0.5 Mg (3 Ml) Ud) 3 ml INH RQ6 [facility] Last Admin: 05/22/18 07:27 Dose: 3 ml Ascorbic Acid (Vitamin C 250 Mg Tab) 250 mg GT DAILY [facility] Last Admin: 05/22/18 10:28 Dose: 250 mg Aspirin (Aspirin Chewable) 81 mg GT DAILY [facility] Last Admin: 05/22/18 10:25 Dose: 81 mg Carvedilol (Coreg) 12.5 mg GT BID [facility] Last Admin: 05/22/18 10:25 Dose: 12.5 mg Enoxaparin Sodium (Lovenox) 40 mg SC DAILY [facility] Last Admin: 05/22/18 10:24 Dose: 40 mg Ferrous Sulfate (Feosol Liq) 300 mg PO DAILY [facility] Last Admin: 05/22/18 10:25 Dose: 300 mg Haloperidol Lactate (Haldol) 1 mg IM Q6H PRN PRN Reason: Agitation Last Admin: 05/22/18 06:54 Dose: 1 mg Dexmedetomidine HCl 200 mcg/ (Sodium Chloride) 50 mls @ 3.4 mls/hr IV TITR PRN ; Protocol; 0.2 MCG/KG/HR PRN Reason: Sedation Last Admin: 05/22/18 10:52 Dose: 0.8 mcg/kg/hr, 13.6 mls/hr Vancomycin/Sodium Chloride (Vancomycin 1 Gm/Ns 200 Ml) 1 gm in 200 mls @ 167 mls/hr IVPB Q24H [facility] PRN Reason: Protocol Stop: 05/23/18 22:01 Last Admin: 05/21/18 21:30 Dose: 167 mls/hr Insulin Aspart (Novolog) 0 unit SC Q6 [facility] PRN Reason: Protocol Insulin Detemir (Levemir) 30 unit SC Q12 [facility] Last Admin: 05/19/18 11:00 Dose: 30 units Levetiracetam (Keppra) 500 mg GT Q12H [facility] Last Admin: 05/22/18 06:54 Dose: 500 mg Losartan Potassium (Cozaar) 50 mg PEG BID [facility] Last Admin: 05/22/18 11:03 Dose: 50 mg Multivitamins/Vitamin C (Multi-Delyn Liquid) 5 ml GT DAILY [facility] Last Admin: 05/22/18 10:28 Dose: 5 ml Pantoprazole Sodium (Protonix Susp) 40 mg PEG 1000 [facility] Last Admin: 05/22/18 10:26 Dose: 40 mg Tamsulosin HCl (Flomax) 0.4 mg PEG DAILY [facility] Last Admin: 05/22/18 10:26 Dose: 0.4 mg Valproate Sodium (Depakene Oral Soln) 500 mg GT Q12H [facility] Last Admin: 05/22/18 06:54 Dose: 500 mg Zinc Sulfate (Zinc Sulfate 220 Mg Cap) 220 mg GT DAILY [facility] Last Admin: 05/22/18 10:26 Dose: 220 mg Physical Exam - Constitutional Appears: Chronically Ill - Head Exam Head Exam: ATRAUMATIC, NORMAL INSPECTION, NORMOCEPHALIC - Eye Exam Eye Exam: EOMI, Normal appearance, PERRL Pupil Exam: NORMAL ACCOMODATION, PERRL - ENT Exam ENT Exam: Mucous Membranes Moist, Normal Exam - Neck Exam Additional comments: Tracheostomy - Respiratory Exam Additional comments: 40% O2 via trach - Cardiovascular Exam Cardiovascular Exam: Tachycardia - GI/Abdominal Exam Additional comments: PEG - Rectal Exam Rectal Exam: Deferred - Exam Additional comments: Stanley cath - Extremities Exam Additional comments: multiple superficial dry ulcers to LEs, 3rd digit on right foot with necrotic tissue - Neurological Exam Neurological exam: Motor Sensory Deficit - Psychiatric Exam Psychiatric exam: Flat Affect - Skin Skin Exam: Normal Color Results - Vital Signs Recent Vital Signs: Last Vital Signs Temp 98.5 F 05/22/18 12:00 Pulse 76 05/22/18 12:00 Resp 15 05/22/18 12:00 BP 141/56 L 05/22/18 11:51 Pulse Ox 99 05/22/18 12:00 - Labs Result Diagrams: 05/22/18 06:14 05/22/18 06:15 Labs: Laboratory Results - last 24 hr 05/19/18 05/21/18 05/22/18 00:46 17:42 00:24 WBC RBC Hgb Hct MCV MCH MCHC RDW Plt Count MPV Neut % (Auto) Lymph % (Auto) [place] % (Auto) Eos % (Auto) Baso % (Auto) Neut # (Auto) Lymph # (Auto) [place] # (Auto) Eos # (Auto) Baso # (Auto) Puncture Site pCO2 pO2 HCO3 ABG pH ABG Total CO2 ABG O2 Saturation ABG Base Excess ABG Hemoglobin ABG Carboxyhemoglobin POC ABG HHb (Measured) ABG Methemoglobin Jamey Test A-a O2 Difference Respiratory Index Hgb O2 Saturation Vent Mode Mechanical Rate FiO2 Tidal Volume PEEP Sodium Potassium Chloride Carbon Dioxide Anion Gap BUN Creatinine Est GFR ( Amer) Est GFR (Non-Af Amer) POC Glucose (mg/dL) 345 H 373 H Random Glucose Calcium Phosphorus Magnesium Total Bilirubin AST ALT Alkaline Phosphatase Total Protein Albumin Globulin Albumin/Globulin Ratio Urine Color Urine Clarity Urine pH Ur Specific [place] Urine Protein Urine Glucose (UA) Urine Ketones Urine Blood Urine Nitrate Urine Bilirubin Urine Urobilinogen Ur Leukocyte Esterase Urine WBC (Auto) Urine RBC (Auto) Urine Bacteria Urine Yeast (Budding) Butalbital Confirm TEST NOT PERFORMED Opiates (GC/MS) negative Codeine Confirmation TEST NOT PERFORMED Morphine Confirm TEST NOT PERFORMED Hydrocodone Confirm TEST NOT PERFORMED Oxycodone Confirm TEST NOT PERFORMED Methadone (GC/MS) negative Methadone Confirm TEST NOT PERFORMED Free Hydromorphone Conf TEST NOT PERFORMED Propoxyphenes negative Norpropoxyphene TEST NOT PERFORMED Barbiturates negative Phencyclidine (PCP) negative Phencyclidine (GC/MS) TEST NOT PERFORMED Amphetamines negative Amphetamines Confirm TEST NOT PERFORMED Methamphetamine Confirm TEST NOT PERFORMED Methylenedioxyamph MDA TEST NOT PERFORMED MDMA TEST NOT PERFORMED Amobarbital Confirm TEST NOT PERFORMED Butabarbital TEST NOT PERFORMED Pentobarbital Confirm TEST NOT PERFORMED Phenobarbital Confirm TEST NOT PERFORMED Secobarbital Confirm TEST NOT PERFORMED Alprazolam Confirm TEST NOT PERFORMED Benzodiazepines negative Nordiazepam Confirm TEST NOT PERFORMED Desalkylfluraze Cnfrm TEST NOT PERFORMED Lorazepam Confirm TEST NOT PERFORMED Oxazepam Confirmation TEST NOT PERFORMED Cocaine & Metabolite negative Cocaine Confirmation TEST NOT PERFORMED Cocaethylene Confirm TEST NOT PERFORMED Benzoylecgonine Confrm TEST NOT PERFORMED Ecgonine Methyl Malia TEST NOT PERFORMED Marijuana negative THC Confirmation TEST NOT PERFORMED Carboxy THC Confirm TEST NOT PERFORMED Drugs of Abuse Comment See note 05/22/18 05/22/18 05/22/18 02:41 05:23 05:24 WBC RBC Hgb Hct MCV MCH MCHC RDW Plt Count MPV Neut % (Auto) Lymph % (Auto) [place] % (Auto) Eos % (Auto) Baso % (Auto) Neut # (Auto) Lymph # (Auto) [place] # (Auto) Eos # (Auto) Baso # (Auto) Puncture Site pCO2 pO2 HCO3 ABG pH ABG Total CO2 ABG O2 Saturation ABG Base Excess ABG Hemoglobin ABG Carboxyhemoglobin POC ABG HHb (Measured) ABG Methemoglobin Jamey Test A-a O2 Difference Respiratory Index Hgb O2 Saturation Vent Mode Mechanical Rate FiO2 Tidal Volume PEEP Sodium Potassium Chloride Carbon Dioxide Anion Gap BUN Creatinine Est GFR ( Amer) Est GFR (Non-Af Amer) POC Glucose (mg/dL) 416 H* 444 H* Random Glucose Calcium Phosphorus Magnesium Total Bilirubin AST ALT Alkaline Phosphatase Total Protein Albumin Globulin Albumin/Globulin Ratio Urine Color Yellow Urine Clarity Hazy Urine pH 6.0 Ur Specific [place] 1.022 Urine Protein 2+ H Urine Glucose (UA) 3+ H Urine Ketones 1+ H Urine Blood 2+ H Urine Nitrate Negative Urine Bilirubin Negative Urine Urobilinogen Normal Ur Leukocyte Esterase 3+ H Urine WBC (Auto) 484 H Urine RBC (Auto) 72 H Urine Bacteria Rare Urine Yeast (Budding) Few H Butalbital Confirm Opiates (GC/MS) Codeine Confirmation Morphine Confirm Hydrocodone Confirm Oxycodone Confirm Methadone (GC/MS) Methadone Confirm Free Hydromorphone Conf Propoxyphenes Norpropoxyphene Barbiturates Phencyclidine (PCP) Phencyclidine (GC/MS) Amphetamines Amphetamines Confirm Methamphetamine Confirm Methylenedioxyamph MDA MDMA Amobarbital Confirm Butabarbital Pentobarbital Confirm Phenobarbital Confirm Secobarbital Confirm Alprazolam Confirm Benzodiazepines Nordiazepam Confirm Desalkylfluraze Cnfrm Lorazepam Confirm Oxazepam Confirmation Cocaine & Metabolite Cocaine Confirmation Cocaethylene Confirm Benzoylecgonine Confrm Ecgonine Methyl Malia Marijuana THC Confirmation Carboxy THC Confirm Drugs of Abuse Comment 05/22/18 05/22/18 05/22/18 05:30 06:14 06:15 WBC 7.5 RBC 3.66 L Hgb 11.2 L Hct 34.4 L MCV 94.1 H MCH 30.5 MCHC 32.4 L RDW 14.4 Plt Count 210 MPV 12.6 H Neut % (Auto) 65.3 Lymph % (Auto) 25.8 [place] % (Auto) 7.4 Eos % (Auto) 0.9 Baso % (Auto) 0.6 Neut # (Auto) 4.9 Lymph # (Auto) 1.9 [place] # (Auto) 0.6 Eos # (Auto) 0.1 Baso # (Auto) 0.0 Puncture Site Rb pCO2 35 pO2 118 H HCO3 25.9 ABG pH 7.46 H ABG Total CO2 26.0 ABG O2 Saturation 99.6 H ABG Base Excess 1.3 ABG Hemoglobin 11.1 L ABG Carboxyhemoglobin 1.7 H POC ABG HHb (Measured) 0.4 ABG Methemoglobin 1.1 Jamey Test Na A-a O2 Difference 123.0 Respiratory Index 1.0 Hgb O2 Saturation 96.9 Vent Mode Prvc Mechanical Rate 18 FiO2 40.0 Tidal Volume 500 PEEP 5 Sodium 145 Potassium 5.3 H Chloride 110 H Carbon Dioxide 20 L Anion Gap 19 BUN 19 Creatinine 1.0 Est GFR ( Amer) > 60 Est GFR (Non-Af Amer) > 60 POC Glucose (mg/dL) Random Glucose 386 H Calcium 8.3 L Phosphorus 3.3 Magnesium 1.9 Total Bilirubin 0.8 AST 34 ALT 11 L D Alkaline Phosphatase 79 Total Protein 6.6 Albumin 3.2 L Globulin 3.5 Albumin/Globulin Ratio 0.9 L Urine Color Urine Clarity Urine pH Ur Specific [place] Urine Protein Urine Glucose (UA) Urine Ketones Urine Blood Urine Nitrate Urine Bilirubin Urine Urobilinogen Ur Leukocyte Esterase Urine WBC (Auto) Urine RBC (Auto) Urine Bacteria Urine Yeast (Budding) Butalbital Confirm Opiates (GC/MS) Codeine Confirmation Morphine Confirm Hydrocodone Confirm Oxycodone Confirm Methadone (GC/MS) Methadone Confirm Free Hydromorphone Conf Propoxyphenes Norpropoxyphene Barbiturates Phencyclidine (PCP) Phencyclidine (GC/MS) Amphetamines Amphetamines Confirm Methamphetamine Confirm Methylenedioxyamph MDA MDMA Amobarbital Confirm Butabarbital Pentobarbital Confirm Phenobarbital Confirm Secobarbital Confirm Alprazolam Confirm Benzodiazepines Nordiazepam Confirm Desalkylfluraze Cnfrm Lorazepam Confirm Oxazepam Confirmation Cocaine & Metabolite Cocaine Confirmation Cocaethylene Confirm Benzoylecgonine Confrm Ecgonine Methyl Malia Marijuana THC Confirmation Carboxy THC Confirm Drugs of Abuse Comment 05/22/18 11:24 WBC RBC Hgb Hct MCV MCH MCHC RDW Plt Count MPV Neut % (Auto) Lymph % (Auto) [place] % (Auto) Eos % (Auto) Baso % (Auto) Neut # (Auto) Lymph # (Auto) [place] # (Auto) Eos # (Auto) Baso # (Auto) Puncture Site pCO2 pO2 HCO3 ABG pH ABG Total CO2 ABG O2 Saturation ABG Base Excess ABG Hemoglobin ABG Carboxyhemoglobin POC ABG HHb (Measured) ABG Methemoglobin Jamey Test A-a O2 Difference Respiratory Index Hgb O2 Saturation Vent Mode Mechanical Rate FiO2 Tidal Volume PEEP Sodium Potassium Chloride Carbon Dioxide Anion Gap BUN Creatinine Est GFR ( Amer) Est GFR (Non-Af Amer) POC Glucose (mg/dL) 366 H Random Glucose Calcium Phosphorus Magnesium Total Bilirubin AST ALT Alkaline Phosphatase Total Protein Albumin Globulin Albumin/Globulin Ratio Urine Color Urine Clarity Urine pH Ur Specific [place] Urine Protein Urine Glucose (UA) Urine Ketones Urine Blood Urine Nitrate Urine Bilirubin Urine Urobilinogen Ur Leukocyte Esterase Urine WBC (Auto) Urine RBC (Auto) Urine Bacteria Urine Yeast (Budding) Butalbital Confirm Opiates (GC/MS) Codeine Confirmation Morphine Confirm Hydrocodone Confirm Oxycodone Confirm Methadone (GC/MS) Methadone Confirm Free Hydromorphone Conf Propoxyphenes Norpropoxyphene Barbiturates Phencyclidine (PCP) Phencyclidine (GC/MS) Amphetamines Amphetamines Confirm Methamphetamine Confirm Methylenedioxyamph MDA MDMA Amobarbital Confirm Butabarbital Pentobarbital Confirm Phenobarbital Confirm Secobarbital Confirm Alprazolam Confirm Benzodiazepines Nordiazepam Confirm Desalkylfluraze Cnfrm Lorazepam Confirm Oxazepam Confirmation Cocaine & Metabolite Cocaine Confirmation Cocaethylene Confirm Benzoylecgonine Confrm Ecgonine Methyl Malia Marijuana THC Confirmation Carboxy THC Confirm Drugs of Abuse Comment Assessment & Plan - Assessment and Plan (Free Text) Assessment: Palliative consult Patient examined in bed, on sedation, unable to communicate. Patient looking chronically ill. Daughter at bed side. I had met patient and family in the past right after CVA. patient has declined significantly since than. Trach in place, O2 40% via trach, on CPAP trial now. PEG in place, functionig, feedings in process. Stanley in situ. urine sid. Multiple dry ulcers to B/L LEs. 3rd digit to right foot necrotic. Wound care consulted. Daughter at bed side. I reviewed patient's clinical condition and related it to main diagnosis of CVA. Daughter is definitely expressing her deep concern for the patient but her insight in overall patient's condition, quality of life issues and prognosis, are poor. Daughter understands that patient will most likely need a exterminator helper placement and she is looking into placement at [facility]. Code status discussed. I offered my concerns regarding quality of life issues. Daughter disregarded it and remained with decision for Full Code. Impression * Severely and chronically ill man, recovering post acute respiratory distress * Severely interrupted quality of life due to consequences of CVA * PVD of LEs * Necrotic toe * Diabetic ulcers * Patient's wishes for the end of life care are not known. Daughter advocates for him , requesting Full Code Suggestions * Surgical consult for necrotic toe * Promote skin integrity * O2 via trach colar only when tolerated * SS to assist with NH placement, assisted * Full Code Advance planing 45 min
--- NOTE | 2018-05-22 14:18 | CP.CCUPN ---
<SongShahla - Last Filed: 05/22/18 15:55> CCU Subjective - Physician Review Subjective (Free Text): 05/22/18 14:18 Pt seen and examined at bedside. Febrile overnight with a rectal temp of 102.5. Currently opening eyes spontaneously. No reaction to painful stimuli. Trach and PEG in place. Minimal trach secretions this morning. Currently on PRVC settings. PEG tube in place, feedings active. Stanley in place draining sid urine. ROS unobtainable due to AMS. 05/22/18 14:21 Critical Care Time Spent (in minutes): 30 CCU Objective - Vital Signs / Intake & Output Vital Signs (Last 4 hours): Vital Signs Temp Pulse Resp BP Pulse Ox 05/22/18 12:00 98.5 F 76 15 99 05/22/18 11:51 75 17 141/56 L 100 05/22/18 11:00 72 16 139/56 L 100 05/22/18 10:51 77 26 H 143/56 L 99 05/22/18 10:25 75 19 124/50 L 100 Intake and Output (Last 8hrs): Intake & Output 05/21/18 05/22/18 05/22/18 22:59 06:59 14:59 Intake Total 937 632 749 Output Total 4476 169 3392 Balance -213 32 -501 Weight 151 lb Intake: IV 100 100 50 Intake, IV Amount 292 212 84 Left Antecubital 200 100 Right Wrist 92 112 84 Oral 0 Tube Feeding 295 320 315 Other 250 300 Output: Urine 5993 124 6217 Condom 8518 440 5220 Other: # Bowel Movements 1 - Physical Exam Head: Positive for: Atraumatic, Normocephalic Pupils: Positive for: PERRL, Other (corneal reflex intact B/L) Mouth: Positive for: Moist Mucous Membranes Respiratory/Chest: Positive for: Clear to Auscultation. Negative for: Respiratory Distress, Wheezes, Rales, Rhonchi Cardiovascular: Positive for: Regular Rate and Rhythm, Normal S1, S2 Abdomen: Positive for: Normal Bowel Sounds. Negative for: Tenderness, Distention, Peritoneal Signs Upper Extremity: Positive for: Normal Inspection. Negative for: Edema Lower Extremity: Positive for: Other (decrease DP pulses B/L; necrotic skin changes noted R>L toes ). Negative for: Edema Neurological: Positive for: Other (not reacting to painful stimuli, corneal reflex intact, PERRLA ). Negative for: GCS=15, CN II-XII Intact, Speech Normal Skin: Positive for: Other (pressure ulcers stage 1 noted on B/L heels. necrotic skin changes noted on right toes and left toes ) - Medications Active Medications: Active Medications Generic Name Dose Route Start Last Admin Trade Name Freq PRN Reason Stop Dose Admin Albuterol/Ipratropium 3 ml 05/18/18 20:00 05/22/18 13:59 Duoneb 3 Mg/0.5 Mg (3 Ml) Ud INH 3 ml RQ6 SHINE Administration Ascorbic Acid 250 mg 05/19/18 10:00 05/22/18 10:28 Vitamin C 250 Mg Tab GT 250 mg DAILY SHINE Administration Aspirin 81 mg 05/19/18 10:00 05/22/18 10:25 Aspirin Chewable GT 81 mg DAILY SHINE Administration Carvedilol 12.5 mg 05/18/18 18:45 05/22/18 10:25 Coreg GT 12.5 mg BID SHINE Administration Enoxaparin Sodium 40 mg 05/19/18 10:00 05/22/18 10:24 Lovenox SC 40 mg DAILY SHINE Administration Ferrous Sulfate 300 mg 05/19/18 10:00 05/22/18 10:25 Feosol Liq PO 300 mg DAILY SHINE Administration Haloperidol Lactate 1 mg 05/18/18 22:00 05/22/18 06:54 Haldol IM 1 mg Q6H PRN Administration Agitation Dexmedetomidine HCl 200 mcg/ 50 mls @ 3.4 mls/hr 05/18/18 21:15 05/22/18 10: 52 Sodium Chloride IV 0.8 mcg/kg/hr TITR PRN 13.6 mls/hr Sedation Administration Protocol 0.2 MCG/KG/HR Vancomycin/Sodium Chloride 1 gm in 200 mls @ 167 mls/hr 05/18/18 22:00 21:30 Vancomycin 1 Gm/Ns 200 Ml IVPB 05/23/18 22:01 167 mls/hr Q24H SHINE Administration Protocol Insulin Aspart 0 unit 05/22/18 12:00 05/22/18 12:50 Novolog SC 10 unit Q6 SHINE Administration Protocol Insulin Detemir 30 unit 05/18/18 22:00 05/19/18 11:00 Levemir SC 30 units Q12 SHINE Administration Levetiracetam 500 mg 05/18/18 18:45 05/22/18 06:54 Keppra GT 500 mg Q12H SHINE Administration Losartan Potassium 50 mg 05/21/18 18:00 05/22/18 11:03 Cozaar PEG 50 mg BID SHINE Administration Multivitamins/Vitamin C 5 ml 05/19/18 10:00 05/22/18 10:28 Multi-Delyn Liquid GT 5 ml DAILY SHINE Administration Pantoprazole Sodium 40 mg 05/19/18 10:00 05/22/18 10:26 Protonix Susp PEG 40 mg 1000 SHINE Administration Tamsulosin HCl 0.4 mg 05/19/18 10:00 05/22/18 10:26 Flomax PEG 0.4 mg DAILY SHINE Administration Valproate Sodium 500 mg 05/18/18 18:45 05/22/18 06:54 Depakene Oral Soln GT 500 mg Q12H SHINE Administration Zinc Sulfate 220 mg 05/19/18 10:00 05/22/18 10:26 Zinc Sulfate 220 Mg Cap GT 220 mg DAILY SHINE Administration - Patient Studies Lab Studies: Microbiology Studies 05/22/18 03:07 Gram Stain - Final Sputum Induced 05/20/18 20:13 Urine Culture - Final Urine,Clean Catch No Growth (<1,000 CFU/ML) 05/18/18 21:16 Blood Culture - Preliminary Blood-Venous NO GROWTH AFTER 3 DAYS 05/18/18 21:46 Blood Culture - Preliminary Blood-Venous NO GROWTH AFTER 3 DAYS 05/19/18 20:05 Urine Culture - Final Urine 10-50,000 CFU/ML. MULTIPLE SPECIES. PROBABLE CONTAMINATION. 05/18/18 22:46 Gram Stain - Final Trachasp Sputum Culture - Final NORMAL ORAL HALEY Lab Studies 05/22/18 05/22/18 05/22/18 Range/Units 11:24 06:15 06:14 WBC 7.5 (4.8-10.8) K/uL RBC 3.66 L (4.40-5.90) Mil/uL Hgb 11.2 L (12.0-18.0) g/dL Hct 34.4 L (35.0-51.0) % MCV 94.1 H (80.0-94.0) fL MCH 30.5 (27.0-31.0) pg MCHC 32.4 L (33.0-37.0) g/dL RDW 14.4 (11.5-14.5) % Plt Count 210 (130-400) K/uL MPV 12.6 H (7.2-11.7) fL Neut % (Auto) 65.3 (50.0-75.0) % Lymph % (Auto) 25.8 (20.0-40.0) % [place] % (Auto) 7.4 (0.0-10.0) % Eos % (Auto) 0.9 (0.0-4.0) % Baso % (Auto) 0.6 (0.0-2.0) % Neut # (Auto) 4.9 (1.8-7.0) K/uL Lymph # (Auto) 1.9 (1.0-4.3) K/uL [place] # (Auto) 0.6 (0.0-0.8) K/uL Eos # (Auto) 0.1 (0.0-0.7) K/uL Baso # (Auto) 0.0 (0.0-0.2) K/uL Puncture Site pCO2 (35-45) mm/Hg pO2 (80-100) mm/Hg HCO3 (21-28) mmol/L ABG pH (7.35-7.45) ABG Total CO2 (22-28) mmol/L ABG O2 Saturation (95-98) % ABG Base Excess (-2.0-3.0) mmol/L ABG Hemoglobin (11.7-17.4) g/dL ABG Carboxyhemoglobin (0.5-1.5) % POC ABG HHb (Measured) (0.0-5.0) % ABG Methemoglobin (0.0-3.0) % Jamey Test A-a O2 Difference mm/Hg Respiratory Index Hgb O2 Saturation (95.0-98.0) % Vent Mode Mechanical Rate FiO2 % Tidal Volume PEEP Sodium 145 (132-148) mmol/L Potassium 5.3 H (3.6-5.2) mmol/L Chloride 110 H (98-107) mmol/L Carbon Dioxide 20 L (22-30) mmol/L Anion Gap 19 (10-20) BUN 19 (9-20) mg/dL Creatinine 1.0 (0.8-1.5) mg/dL Est GFR ( Amer) > 60 Est GFR (Non-Af Amer) > 60 POC Glucose (mg/dL) 366 H (65-110) mg/dL Random Glucose 386 H (75-110) mg/dL Calcium 8.3 L (8.6-10.4) mg/dl Phosphorus 3.3 (2.5-4.5) mg/dL Magnesium 1.9 (1.6-2.3) mg/dL Total Bilirubin 0.8 (0.2-1.3) mg/dL AST 34 (17-59) U/L ALT 11 L D (21-72) U/L Alkaline Phosphatase 79 (38-126) U/L Total Protein 6.6 (6.3-8.3) g/dL Albumin 3.2 L (3.5-5.0) g/dL Globulin 3.5 (2.2-3.9) gm/dL Albumin/Globulin Ratio 0.9 L (1.0-2.1) Urine Color (YELLOW) Urine Clarity (Clear) Urine pH (5.0-8.0) Ur Specific [place] (1.003-1.030) Urine Protein (NEGATIVE) mg/dL Urine Glucose (UA) (Normal) mg/dL Urine Ketones (NEGATIVE) mg/dL Urine Blood (NEGATIVE) Urine Nitrate (NEGATIVE) Urine Bilirubin (NEGATIVE) Urine Urobilinogen (0.2-1.0) mg/dL Ur Leukocyte Esterase (Negative) Minh/uL Urine WBC (Auto) (0-5) /hpf Urine RBC (Auto) (0-3) /hpf Urine Bacteria (<OCC) Urine Yeast (Budding) (NEGATIVE) /hpf Butalbital Confirm Opiates (GC/MS) Codeine Confirmation Morphine Confirm Hydrocodone Confirm Oxycodone Confirm Methadone (GC/MS) Methadone Confirm Free Hydromorphone Conf Propoxyphenes Norpropoxyphene Barbiturates Phencyclidine (PCP) Phencyclidine (GC/MS) Amphetamines Amphetamines Confirm Methamphetamine Confirm Methylenedioxyamph MDA MDMA Amobarbital Confirm Butabarbital Pentobarbital Confirm Phenobarbital Confirm Secobarbital Confirm Alprazolam Confirm Benzodiazepines Nordiazepam Confirm Desalkylfluraze Cnfrm Lorazepam Confirm Oxazepam Confirmation Cocaine & Metabolite Cocaine Confirmation Cocaethylene Confirm Benzoylecgonine Confrm Ecgonine Methyl Malia Marijuana THC Confirmation Carboxy THC Confirm Drugs of Abuse Comment 05/22/18 05/22/18 05/22/18 Range/Units 05:30 05:24 05:23 WBC (4.8-10.8) K/uL RBC (4.40-5.90) Mil/uL Hgb (12.0-18.0) g/dL Hct (35.0-51.0) % MCV (80.0-94.0) fL MCH (27.0-31.0) pg MCHC (33.0-37.0) g/dL RDW (11.5-14.5) % Plt Count (130-400) K/uL MPV (7.2-11.7) fL Neut % (Auto) (50.0-75.0) % Lymph % (Auto) (20.0-40.0) % [place] % (Auto) (0.0-10.0) % Eos % (Auto) (0.0-4.0) % Baso % (Auto) (0.0-2.0) % Neut # (Auto) (1.8-7.0) K/uL Lymph # (Auto) (1.0-4.3) K/uL [place] # (Auto) (0.0-0.8) K/uL Eos # (Auto) (0.0-0.7) K/uL Baso # (Auto) (0.0-0.2) K/uL Puncture Site Rb pCO2 35 (35-45) mm/Hg pO2 118 H (80-100) mm/Hg HCO3 25.9 (21-28) mmol/L ABG pH 7.46 H (7.35-7.45) ABG Total CO2 26.0 (22-28) mmol/L ABG O2 Saturation 99.6 H (95-98) % ABG Base Excess 1.3 (-2.0-3.0) mmol/L ABG Hemoglobin 11.1 L (11.7-17.4) g/dL ABG Carboxyhemoglobin 1.7 H (0.5-1.5) % POC ABG HHb (Measured) 0.4 (0.0-5.0) % ABG Methemoglobin 1.1 (0.0-3.0) % Jamey Test Na A-a O2 Difference 123.0 mm/Hg Respiratory Index 1.0 Hgb O2 Saturation 96.9 (95.0-98.0) % Vent Mode Prvc Mechanical Rate 18 FiO2 40.0 % Tidal Volume 500 PEEP 5 Sodium (132-148) mmol/L Potassium (3.6-5.2) mmol/L Chloride (98-107) mmol/L Carbon Dioxide (22-30) mmol/L Anion Gap (10-20) BUN (9-20) mg/dL Creatinine (0.8-1.5) mg/dL Est GFR ( Amer) Est GFR (Non-Af Amer) POC Glucose (mg/dL) 444 H* 416 H* (65-110) mg/dL Random Glucose (75-110) mg/dL Calcium (8.6-10.4) mg/dl Phosphorus (2.5-4.5) mg/dL Magnesium (1.6-2.3) mg/dL Total Bilirubin (0.2-1.3) mg/dL AST (17-59) U/L ALT (21-72) U/L Alkaline Phosphatase (38-126) U/L Total Protein (6.3-8.3) g/dL Albumin (3.5-5.0) g/dL Globulin (2.2-3.9) gm/dL Albumin/Globulin Ratio (1.0-2.1) Urine Color (YELLOW) Urine Clarity (Clear) Urine pH (5.0-8.0) Ur Specific [place] (1.003-1.030) Urine Protein (NEGATIVE) mg/dL Urine Glucose (UA) (Normal) mg/dL Urine Ketones (NEGATIVE) mg/dL Urine Blood (NEGATIVE) Urine Nitrate (NEGATIVE) Urine Bilirubin (NEGATIVE) Urine Urobilinogen (0.2-1.0) mg/dL Ur Leukocyte Esterase (Negative) Minh/uL Urine WBC (Auto) (0-5) /hpf Urine RBC (Auto) (0-3) /hpf Urine Bacteria (<OCC) Urine Yeast (Budding) (NEGATIVE) /hpf Butalbital Confirm Opiates (GC/MS) Codeine Confirmation Morphine Confirm Hydrocodone Confirm Oxycodone Confirm Methadone (GC/MS) Methadone Confirm Free Hydromorphone Conf Propoxyphenes Norpropoxyphene Barbiturates Phencyclidine (PCP) Phencyclidine (GC/MS) Amphetamines Amphetamines Confirm Methamphetamine Confirm Methylenedioxyamph MDA MDMA Amobarbital Confirm Butabarbital Pentobarbital Confirm Phenobarbital Confirm Secobarbital Confirm Alprazolam Confirm Benzodiazepines Nordiazepam Confirm Desalkylfluraze Cnfrm Lorazepam Confirm Oxazepam Confirmation Cocaine & Metabolite Cocaine Confirmation Cocaethylene Confirm Benzoylecgonine Confrm Ecgonine Methyl Malia Marijuana THC Confirmation Carboxy THC Confirm Drugs of Abuse Comment 05/22/18 05/22/18 05/21/18 Range/Units 02:41 00:24 17:42 WBC (4.8-10.8) K/uL RBC (4.40-5.90) Mil/uL Hgb (12.0-18.0) g/dL Hct (35.0-51.0) % MCV (80.0-94.0) fL MCH (27.0-31.0) pg MCHC (33.0-37.0) g/dL RDW (11.5-14.5) % Plt Count (130-400) K/uL MPV (7.2-11.7) fL Neut % (Auto) (50.0-75.0) % Lymph % (Auto) (20.0-40.0) % [place] % (Auto) (0.0-10.0) % Eos % (Auto) (0.0-4.0) % Baso % (Auto) (0.0-2.0) % Neut # (Auto) (1.8-7.0) K/uL Lymph # (Auto) (1.0-4.3) K/uL [place] # (Auto) (0.0-0.8) K/uL Eos # (Auto) (0.0-0.7) K/uL Baso # (Auto) (0.0-0.2) K/uL Puncture Site pCO2 (35-45) mm/Hg pO2 (80-100) mm/Hg HCO3 (21-28) mmol/L ABG pH (7.35-7.45) ABG Total CO2 (22-28) mmol/L ABG O2 Saturation (95-98) % ABG Base Excess (-2.0-3.0) mmol/L ABG Hemoglobin (11.7-17.4) g/dL ABG Carboxyhemoglobin (0.5-1.5) % POC ABG HHb (Measured) (0.0-5.0) % ABG Methemoglobin (0.0-3.0) % Jamey Test A-a O2 Difference mm/Hg Respiratory Index Hgb O2 Saturation (95.0-98.0) % Vent Mode Mechanical Rate FiO2 % Tidal Volume PEEP Sodium (132-148) mmol/L Potassium (3.6-5.2) mmol/L Chloride (98-107) mmol/L Carbon Dioxide (22-30) mmol/L Anion Gap (10-20) BUN (9-20) mg/dL Creatinine (0.8-1.5) mg/dL Est GFR ( Amer) Est GFR (Non-Af Amer) POC Glucose (mg/dL) 373 H 345 H (65-110) mg/dL Random Glucose (75-110) mg/dL Calcium (8.6-10.4) mg/dl Phosphorus (2.5-4.5) mg/dL Magnesium (1.6-2.3) mg/dL Total Bilirubin (0.2-1.3) mg/dL AST (17-59) U/L ALT (21-72) U/L Alkaline Phosphatase (38-126) U/L Total Protein (6.3-8.3) g/dL Albumin (3.5-5.0) g/dL Globulin (2.2-3.9) gm/dL Albumin/Globulin Ratio (1.0-2.1) Urine Color Yellow (YELLOW) Urine Clarity Hazy (Clear) Urine pH 6.0 (5.0-8.0) Ur Specific [place] 1.022 (1.003-1.030) Urine Protein 2+ H (NEGATIVE) mg/dL Urine Glucose (UA) 3+ H (Normal) mg/dL Urine Ketones 1+ H (NEGATIVE) mg/dL Urine Blood 2+ H (NEGATIVE) Urine Nitrate Negative (NEGATIVE) Urine Bilirubin Negative (NEGATIVE) Urine Urobilinogen Normal (0.2-1.0) mg/dL Ur Leukocyte Esterase 3+ H (Negative) Minh/uL Urine WBC (Auto) 484 H (0-5) /hpf Urine RBC (Auto) 72 H (0-3) /hpf Urine Bacteria Rare (<OCC) Urine Yeast (Budding) Few H (NEGATIVE) /hpf Butalbital Confirm Opiates (GC/MS) Codeine Confirmation Morphine Confirm Hydrocodone Confirm Oxycodone Confirm Methadone (GC/MS) Methadone Confirm Free Hydromorphone Conf Propoxyphenes Norpropoxyphene Barbiturates Phencyclidine (PCP) Phencyclidine (GC/MS) Amphetamines Amphetamines Confirm Methamphetamine Confirm Methylenedioxyamph MDA MDMA Amobarbital Confirm Butabarbital Pentobarbital Confirm Phenobarbital Confirm Secobarbital Confirm Alprazolam Confirm Benzodiazepines Nordiazepam Confirm Desalkylfluraze Cnfrm Lorazepam Confirm Oxazepam Confirmation Cocaine & Metabolite Cocaine Confirmation Cocaethylene Confirm Benzoylecgonine Confrm Ecgonine Methyl Malia Marijuana THC Confirmation Carboxy THC Confirm Drugs of Abuse Comment 05/19/18 Range/Units 00:46 WBC (4.8-10.8) K/uL RBC (4.40-5.90) Mil/uL Hgb (12.0-18.0) g/dL Hct (35.0-51.0) % MCV (80.0-94.0) fL MCH (27.0-31.0) pg MCHC (33.0-37.0) g/dL RDW (11.5-14.5) % Plt Count (130-400) K/uL MPV (7.2-11.7) fL Neut % (Auto) (50.0-75.0) % Lymph % (Auto) (20.0-40.0) % [place] % (Auto) (0.0-10.0) % Eos % (Auto) (0.0-4.0) % Baso % (Auto) (0.0-2.0) % Neut # (Auto) (1.8-7.0) K/uL Lymph # (Auto) (1.0-4.3) K/uL [place] # (Auto) (0.0-0.8) K/uL Eos # (Auto) (0.0-0.7) K/uL Baso # (Auto) (0.0-0.2) K/uL Puncture Site pCO2 (35-45) mm/Hg pO2 (80-100) mm/Hg HCO3 (21-28) mmol/L ABG pH (7.35-7.45) ABG Total CO2 (22-28) mmol/L ABG O2 Saturation (95-98) % ABG Base Excess (-2.0-3.0) mmol/L ABG Hemoglobin (11.7-17.4) g/dL ABG Carboxyhemoglobin (0.5-1.5) % POC ABG HHb (Measured) (0.0-5.0) % ABG Methemoglobin (0.0-3.0) % Jamey Test A-a O2 Difference mm/Hg Respiratory Index Hgb O2 Saturation (95.0-98.0) % Vent Mode Mechanical Rate FiO2 % Tidal Volume PEEP Sodium (132-148) mmol/L Potassium (3.6-5.2) mmol/L Chloride (98-107) mmol/L Carbon Dioxide (22-30) mmol/L Anion Gap (10-20) BUN (9-20) mg/dL Creatinine (0.8-1.5) mg/dL Est GFR ( Amer) Est GFR (Non-Af Amer) POC Glucose (mg/dL) (65-110) mg/dL Random Glucose (75-110) mg/dL Calcium (8.6-10.4) mg/dl Phosphorus (2.5-4.5) mg/dL Magnesium (1.6-2.3) mg/dL Total Bilirubin (0.2-1.3) mg/dL AST (17-59) U/L ALT (21-72) U/L Alkaline Phosphatase (38-126) U/L Total Protein (6.3-8.3) g/dL Albumin (3.5-5.0) g/dL Globulin (2.2-3.9) gm/dL Albumin/Globulin Ratio (1.0-2.1) Urine Color (YELLOW) Urine Clarity (Clear) Urine pH (5.0-8.0) Ur Specific [place] (1.003-1.030) Urine Protein (NEGATIVE) mg/dL Urine Glucose (UA) (Normal) mg/dL Urine Ketones (NEGATIVE) mg/dL Urine Blood (NEGATIVE) Urine Nitrate (NEGATIVE) Urine Bilirubin (NEGATIVE) Urine Urobilinogen (0.2-1.0) mg/dL Ur Leukocyte Esterase (Negative) Minh/uL Urine WBC (Auto) (0-5) /hpf Urine RBC (Auto) (0-3) /hpf Urine Bacteria (<OCC) Urine Yeast (Budding) (NEGATIVE) /hpf Butalbital Confirm TEST NOT PERFORMED Opiates (GC/MS) negative Codeine Confirmation TEST NOT PERFORMED Morphine Confirm TEST NOT PERFORMED Hydrocodone Confirm TEST NOT PERFORMED Oxycodone Confirm TEST NOT PERFORMED Methadone (GC/MS) negative Methadone Confirm TEST NOT PERFORMED Free Hydromorphone Conf TEST NOT PERFORMED Propoxyphenes negative Norpropoxyphene TEST NOT PERFORMED Barbiturates negative Phencyclidine (PCP) negative Phencyclidine (GC/MS) TEST NOT PERFORMED Amphetamines negative Amphetamines Confirm TEST NOT PERFORMED Methamphetamine Confirm TEST NOT PERFORMED Methylenedioxyamph MDA TEST NOT PERFORMED MDMA TEST NOT PERFORMED Amobarbital Confirm TEST NOT PERFORMED Butabarbital TEST NOT PERFORMED Pentobarbital Confirm TEST NOT PERFORMED Phenobarbital Confirm TEST NOT PERFORMED Secobarbital Confirm TEST NOT PERFORMED Alprazolam Confirm TEST NOT PERFORMED Benzodiazepines negative Nordiazepam Confirm TEST NOT PERFORMED Desalkylfluraze Cnfrm TEST NOT PERFORMED Lorazepam Confirm TEST NOT PERFORMED Oxazepam Confirmation TEST NOT PERFORMED Cocaine & Metabolite negative Cocaine Confirmation TEST NOT PERFORMED Cocaethylene Confirm TEST NOT PERFORMED Benzoylecgonine Confrm TEST NOT PERFORMED Ecgonine Methyl Malia TEST NOT PERFORMED Marijuana negative THC Confirmation TEST NOT PERFORMED Carboxy THC Confirm TEST NOT PERFORMED Drugs of Abuse Comment See note Laboratory Results - last 24 hr 05/19/18 05/21/18 05/22/18 00:46 17:42 00:24 WBC RBC Hgb Hct MCV MCH MCHC RDW Plt Count MPV Neut % (Auto) Lymph % (Auto) [place] % (Auto) Eos % (Auto) Baso % (Auto) Neut # (Auto) Lymph # (Auto) [place] # (Auto) Eos # (Auto) Baso # (Auto) Puncture Site pCO2 pO2 HCO3 ABG pH ABG Total CO2 ABG O2 Saturation ABG Base Excess ABG Hemoglobin ABG Carboxyhemoglobin POC ABG HHb (Measured) ABG Methemoglobin Jamey Test A-a O2 Difference Respiratory Index Hgb O2 Saturation Vent Mode Mechanical Rate FiO2 Tidal Volume PEEP Sodium Potassium Chloride Carbon Dioxide Anion Gap BUN Creatinine Est GFR ( Amer) Est GFR (Non-Af Amer) POC Glucose (mg/dL) 345 H 373 H Random Glucose Calcium Phosphorus Magnesium Total Bilirubin AST ALT Alkaline Phosphatase Total Protein Albumin Globulin Albumin/Globulin Ratio Urine Color Urine Clarity Urine pH Ur Specific [place] Urine Protein Urine Glucose (UA) Urine Ketones Urine Blood Urine Nitrate Urine Bilirubin Urine Urobilinogen Ur Leukocyte Esterase Urine WBC (Auto) Urine RBC (Auto) Urine Bacteria Urine Yeast (Budding) Butalbital Confirm TEST NOT PERFORMED Opiates (GC/MS) negative Codeine Confirmation TEST NOT PERFORMED Morphine Confirm TEST NOT PERFORMED Hydrocodone Confirm TEST NOT PERFORMED Oxycodone Confirm TEST NOT PERFORMED Methadone (GC/MS) negative Methadone Confirm TEST NOT PERFORMED Free Hydromorphone Conf TEST NOT PERFORMED Propoxyphenes negative Norpropoxyphene TEST NOT PERFORMED Barbiturates negative Phencyclidine (PCP) negative Phencyclidine (GC/MS) TEST NOT PERFORMED Amphetamines negative Amphetamines Confirm TEST NOT PERFORMED Methamphetamine Confirm TEST NOT PERFORMED Methylenedioxyamph MDA TEST NOT PERFORMED MDMA TEST NOT PERFORMED Amobarbital Confirm TEST NOT PERFORMED Butabarbital TEST NOT PERFORMED Pentobarbital Confirm TEST NOT PERFORMED Phenobarbital Confirm TEST NOT PERFORMED Secobarbital Confirm TEST NOT PERFORMED Alprazolam Confirm TEST NOT PERFORMED Benzodiazepines negative Nordiazepam Confirm TEST NOT PERFORMED Desalkylfluraze Cnfrm TEST NOT PERFORMED Lorazepam Confirm TEST NOT PERFORMED Oxazepam Confirmation TEST NOT PERFORMED Cocaine & Metabolite negative Cocaine Confirmation TEST NOT PERFORMED Cocaethylene Confirm TEST NOT PERFORMED Benzoylecgonine Confrm TEST NOT PERFORMED Ecgonine Methyl Malia TEST NOT PERFORMED Marijuana negative THC Confirmation TEST NOT PERFORMED Carboxy THC Confirm TEST NOT PERFORMED Drugs of Abuse Comment See note 05/22/18 05/22/18 05/22/18 02:41 05:23 05:24 WBC RBC Hgb Hct MCV MCH MCHC RDW Plt Count MPV Neut % (Auto) Lymph % (Auto) [place] % (Auto) Eos % (Auto) Baso % (Auto) Neut # (Auto) Lymph # (Auto) [place] # (Auto) Eos # (Auto) Baso # (Auto) Puncture Site pCO2 pO2 HCO3 ABG pH ABG Total CO2 ABG O2 Saturation ABG Base Excess ABG Hemoglobin ABG Carboxyhemoglobin POC ABG HHb (Measured) ABG Methemoglobin Jamey Test A-a O2 Difference Respiratory Index Hgb O2 Saturation Vent Mode Mechanical Rate FiO2 Tidal Volume PEEP Sodium Potassium Chloride Carbon Dioxide Anion Gap BUN Creatinine Est GFR ( Amer) Est GFR (Non-Af Amer) POC Glucose (mg/dL) 416 H* 444 H* Random Glucose Calcium Phosphorus Magnesium Total Bilirubin AST ALT Alkaline Phosphatase Total Protein Albumin Globulin Albumin/Globulin Ratio Urine Color Yellow Urine Clarity Hazy Urine pH 6.0 Ur Specific [place] 1.022 Urine Protein 2+ H Urine Glucose (UA) 3+ H Urine Ketones 1+ H Urine Blood 2+ H Urine Nitrate Negative Urine Bilirubin Negative Urine Urobilinogen Normal Ur Leukocyte Esterase 3+ H Urine WBC (Auto) 484 H Urine RBC (Auto) 72 H Urine Bacteria Rare Urine Yeast (Budding) Few H Butalbital Confirm Opiates (GC/MS) Codeine Confirmation Morphine Confirm Hydrocodone Confirm Oxycodone Confirm Methadone (GC/MS) Methadone Confirm Free Hydromorphone Conf Propoxyphenes Norpropoxyphene Barbiturates Phencyclidine (PCP) Phencyclidine (GC/MS) Amphetamines Amphetamines Confirm Methamphetamine Confirm Methylenedioxyamph MDA MDMA Amobarbital Confirm Butabarbital Pentobarbital Confirm Phenobarbital Confirm Secobarbital Confirm Alprazolam Confirm Benzodiazepines Nordiazepam Confirm Desalkylfluraze Cnfrm Lorazepam Confirm Oxazepam Confirmation Cocaine & Metabolite Cocaine Confirmation Cocaethylene Confirm Benzoylecgonine Confrm Ecgonine Methyl Malia Marijuana THC Confirmation Carboxy THC Confirm Drugs of Abuse Comment 05/22/18 05/22/18 05/22/18 05:30 06:14 06:15 WBC 7.5 RBC 3.66 L Hgb 11.2 L Hct 34.4 L MCV 94.1 H MCH 30.5 MCHC 32.4 L RDW 14.4 Plt Count 210 MPV 12.6 H Neut % (Auto) 65.3 Lymph % (Auto) 25.8 [place] % (Auto) 7.4 Eos % (Auto) 0.9 Baso % (Auto) 0.6 Neut # (Auto) 4.9 Lymph # (Auto) 1.9 [place] # (Auto) 0.6 Eos # (Auto) 0.1 Baso # (Auto) 0.0 Puncture Site Rb pCO2 35 pO2 118 H HCO3 25.9 ABG pH 7.46 H ABG Total CO2 26.0 ABG O2 Saturation 99.6 H ABG Base Excess 1.3 ABG Hemoglobin 11.1 L ABG Carboxyhemoglobin 1.7 H POC ABG HHb (Measured) 0.4 ABG Methemoglobin 1.1 Jamey Test Na A-a O2 Difference 123.0 Respiratory Index 1.0 Hgb O2 Saturation 96.9 Vent Mode Prvc Mechanical Rate 18 FiO2 40.0 Tidal Volume 500 PEEP 5 Sodium 145 Potassium 5.3 H Chloride 110 H Carbon Dioxide 20 L Anion Gap 19 BUN 19 Creatinine 1.0 Est GFR ( Amer) > 60 Est GFR (Non-Af Amer) > 60 POC Glucose (mg/dL) Random Glucose 386 H Calcium 8.3 L Phosphorus 3.3 Magnesium 1.9 Total Bilirubin 0.8 AST 34 ALT 11 L D Alkaline Phosphatase 79 Total Protein 6.6 Albumin 3.2 L Globulin 3.5 Albumin/Globulin Ratio 0.9 L Urine Color Urine Clarity Urine pH Ur Specific Ramer Urine Protein Urine Glucose (UA) Urine Ketones Urine Blood Urine Nitrate Urine Bilirubin Urine Urobilinogen Ur Leukocyte Esterase Urine WBC (Auto) Urine RBC (Auto) Urine Bacteria Urine Yeast (Budding) Butalbital Confirm Opiates (GC/MS) Codeine Confirmation Morphine Confirm Hydrocodone Confirm Oxycodone Confirm Methadone (GC/MS) Methadone Confirm Free Hydromorphone Conf Propoxyphenes Norpropoxyphene Barbiturates Phencyclidine (PCP) Phencyclidine (GC/MS) Amphetamines Amphetamines Confirm Methamphetamine Confirm Methylenedioxyamph MDA MDMA Amobarbital Confirm Butabarbital Pentobarbital Confirm Phenobarbital Confirm Secobarbital Confirm Alprazolam Confirm Benzodiazepines Nordiazepam Confirm Desalkylfluraze Cnfrm Lorazepam Confirm Oxazepam Confirmation Cocaine & Metabolite Cocaine Confirmation Cocaethylene Confirm Benzoylecgonine Confrm Ecgonine Methyl Malia Marijuana THC Confirmation Carboxy THC Confirm Drugs of Abuse Comment 05/22/18 11:24 WBC RBC Hgb Hct MCV MCH MCHC RDW Plt Count MPV Neut % (Auto) Lymph % (Auto) [place] % (Auto) Eos % (Auto) Baso % (Auto) Neut # (Auto) Lymph # (Auto) [place] # (Auto) Eos # (Auto) Baso # (Auto) Puncture Site pCO2 pO2 HCO3 ABG pH ABG Total CO2 ABG O2 Saturation ABG Base Excess ABG Hemoglobin ABG Carboxyhemoglobin POC ABG HHb (Measured) ABG Methemoglobin Jamey Test A-a O2 Difference Respiratory Index Hgb O2 Saturation Vent Mode Mechanical Rate FiO2 Tidal Volume PEEP Sodium Potassium Chloride Carbon Dioxide Anion Gap BUN Creatinine Est GFR ( Amer) Est GFR (Non-Af Amer) POC Glucose (mg/dL) 366 H Random Glucose Calcium Phosphorus Magnesium Total Bilirubin AST ALT Alkaline Phosphatase Total Protein Albumin Globulin Albumin/Globulin Ratio Urine Color Urine Clarity Urine pH Ur Specific Ramer Urine Protein Urine Glucose (UA) Urine Ketones Urine Blood Urine Nitrate Urine Bilirubin Urine Urobilinogen Ur Leukocyte Esterase Urine WBC (Auto) Urine RBC (Auto) Urine Bacteria Urine Yeast (Budding) Butalbital Confirm Opiates (GC/MS) Codeine Confirmation Morphine Confirm Hydrocodone Confirm Oxycodone Confirm Methadone (GC/MS) Methadone Confirm Free Hydromorphone Conf Propoxyphenes Norpropoxyphene Barbiturates Phencyclidine (PCP) Phencyclidine (GC/MS) Amphetamines Amphetamines Confirm Methamphetamine Confirm Methylenedioxyamph MDA MDMA Amobarbital Confirm Butabarbital Pentobarbital Confirm Phenobarbital Confirm Secobarbital Confirm Alprazolam Confirm Benzodiazepines Nordiazepam Confirm Desalkylfluraze Cnfrm Lorazepam Confirm Oxazepam Confirmation Cocaine & Metabolite Cocaine Confirmation Cocaethylene Confirm Benzoylecgonine Confrm Ecgonine Methyl Malia Marijuana THC Confirmation Carboxy THC Confirm Drugs of Abuse Comment Fingerstick Blood Sugar Results: 366 Review of Systems - Review of Systems Systems not reviewed;Unavailable: Acuity of Condition Assessment/Plan - Assessment and Plan (Free Text) Plan: 68 year old male with PMHx of IDDM, HTN, CAD s/p CABg, 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 Patient was admitted to ICU after having TRANSIT PLANNING DIRECTOR called on floor which subsequently turned into Code Blue. Patient ROSC after being down for 5 minutes. Neurology - 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 However, unsure about baseline mental status. - Head CT 05/21 shows no acute findings - Currently on sedation with precedex 200 mcg - Seizure prophylaxis: Keppra 500 mg GT q12, Valproate 500 mg GT q12 - Haldol 1 mg IM q6 prn for agitation Cardiology - Hx of CAD with CABG - Continue Aspirin, Coreg - Troponins on admission were negative - f/u arterial duplex LE when off PRVC Pulmonology - On admission, pt was noted to have increased trach secretions and concern for aspiration . - Sputum and blood cultures negative - Currently on CPAP trial-stable, ween off PRVCas tolerated - Continue Abx: Amikacin and vanco - Continue duoneb 3 ml q6 GI - PEG tube in place. Abd x ray done on admission was normal and tube feedings were restarted. - Continue Glucerna with goal rate of 55 cc - Stanley in place - Continue Flomax Renal - BUN/Cr: 08/12 - Continue to monitor function ID - Concern for aspiration pneumonia. On day 4 of vanco. Starting amikacin 750mg x1 -will begin diflucan 200mg IVPB today followed by 100mg/day x5 days - Negative procal - Negative blood and sputum and urine cultures - Consult Dr. Conner Psych - Agitation: haldol prn Derm - Necrotic skin changes noted on B/L LE as well as stage 1 pressure ulcers on B/ L heels - Wound care consulted - Continue multipodus boots and position changes q2h - Will check arterial duplex in LE when off PRVC - Continue zinc sulfate multivit and vitamin c Prophylaxis - GI: protonix - DVT: Lovenox - Multipodus boot Case discussed with attending, Dr. Ulloa <Ford Mims - Last Filed: 05/22/18 17:18> CCU Objective - Vital Signs / Intake & Output Vital Signs (Last 4 hours): Vital Signs Temp Pulse Resp BP Pulse Ox 05/22/18 16:00 97.4 F L 72 21 100 05/22/18 15:51 73 23 135/50 L 100 05/22/18 15:00 77 20 100 05/22/18 14:51 95 H 22 131/65 98 05/22/18 14:00 73 24 97 05/22/18 13:52 72 24 105/63 97 Intake and Output (Last 8hrs): Intake & Output 05/22/18 05/22/18 05/22/18 06:59 14:59 22:59 Intake Total 632 987 138 Output Total 600 1425 200 Balance 32 -438 -62 Weight 151 lb Intake: IV 100 100 Intake, IV Amount 212 162 28 Left Antecubital 100 50 Right Wrist 112 112 28 Tube Feeding 320 425 110 Other 300 Output: Urine 600 1425 200 Condom 600 800 Urethral (Stanley) 625 200 - Medications Active Medications: Active Medications Generic Name Dose Route Start Last Admin Trade Name Freq PRN Reason Stop Dose Admin Albuterol/Ipratropium 3 ml 05/18/18 20:00 05/22/18 13:59 Duoneb 3 Mg/0.5 Mg (3 Ml) Ud INH 3 ml RQ6 SHINE Administration Ascorbic Acid 250 mg 05/19/18 10:00 05/22/18 10:28 Vitamin C 250 Mg Tab GT 250 mg DAILY SHINE Administration Aspirin 81 mg 05/19/18 10:00 05/22/18 10:25 Aspirin Chewable GT 81 mg DAILY SHINE Administration Carvedilol 12.5 mg 05/18/18 18:45 05/22/18 10:25 Coreg GT 12.5 mg BID SHINE Administration Enoxaparin Sodium 40 mg 05/19/18 10:00 05/22/18 10:24 Lovenox SC 40 mg DAILY SHINE Administration Ferrous Sulfate 300 mg 05/19/18 10:00 05/22/18 10:25 Feosol Liq PO 300 mg DAILY SHINE Administration Haloperidol Lactate 1 mg 05/18/18 22:00 05/22/18 06:54 Haldol IM 1 mg Q6H PRN Administration Agitation Dexmedetomidine HCl 200 mcg/ 50 mls @ 3.4 mls/hr 05/18/18 21:15 05/22/18 14: 33 Sodium Chloride IV 0.8 mcg/kg/hr TITR PRN 13.6 mls/hr Sedation Administration Protocol 0.2 MCG/KG/HR Vancomycin/Sodium Chloride 1 gm in 200 mls @ 167 mls/hr 05/18/18 22:00 21:30 Vancomycin 1 Gm/Ns 200 Ml IVPB 05/23/18 22:01 167 mls/hr Q24H SHINE Administration Protocol Insulin Aspart 0 unit 05/22/18 12:00 05/22/18 12:50 Novolog SC 10 unit Q6 SHINE Administration Protocol Insulin Detemir 30 unit 05/18/18 22:00 05/19/18 11:00 Levemir SC 30 units Q12 SHINE Administration Levetiracetam 500 mg 05/18/18 18:45 05/22/18 06:54 Keppra GT 500 mg Q12H SHINE Administration Losartan Potassium 50 mg 05/21/18 18:00 05/22/18 11:03 Cozaar PEG 50 mg BID SHINE Administration Multivitamins/Vitamin C 5 ml 05/19/18 10:00 05/22/18 10:28 Multi-Delyn Liquid GT 5 ml DAILY SHINE Administration Pantoprazole Sodium 40 mg 05/19/18 10:00 05/22/18 10:26 Protonix Susp PEG 40 mg 1000 SHINE Administration Tamsulosin HCl 0.4 mg 05/19/18 10:00 05/22/18 10:26 Flomax PEG 0.4 mg DAILY SHINE Administration Valproate Sodium 500 mg 05/18/18 18:45 05/22/18 06:54 Depakene Oral Soln GT 500 mg Q12H SHINE Administration Zinc Sulfate 220 mg 05/19/18 10:00 05/22/18 10:26 Zinc Sulfate 220 Mg Cap GT 220 mg DAILY SHINE Administration - Patient Studies Lab Studies: Microbiology Studies 05/22/18 03:07 Gram Stain - Final Sputum Induced 05/20/18 20:13 Urine Culture - Final Urine,Clean Catch No Growth (<1,000 CFU/ML) 05/18/18 21:16 Blood Culture - Preliminary Blood-Venous NO GROWTH AFTER 3 DAYS 05/18/18 21:46 Blood Culture - Preliminary Blood-Venous NO GROWTH AFTER 3 DAYS Lab Studies 05/22/18 05/22/18 05/22/18 Range/Units 11:24 06:15 06:14 WBC 7.5 (4.8-10.8) K/uL RBC 3.66 L (4.40-5.90) Mil/uL Hgb 11.2 L (12.0-18.0) g/dL Hct 34.4 L (35.0-51.0) % MCV 94.1 H (80.0-94.0) fL MCH 30.5 (27.0-31.0) pg MCHC 32.4 L (33.0-37.0) g/dL RDW 14.4 (11.5-14.5) % Plt Count 210 (130-400) K/uL MPV 12.6 H (7.2-11.7) fL Neut % (Auto) 65.3 (50.0-75.0) % Lymph % (Auto) 25.8 (20.0-40.0) % [place] % (Auto) 7.4 (0.0-10.0) % Eos % (Auto) 0.9 (0.0-4.0) % Baso % (Auto) 0.6 (0.0-2.0) % Neut # (Auto) 4.9 (1.8-7.0) K/uL Lymph # (Auto) 1.9 (1.0-4.3) K/uL [place] # (Auto) 0.6 (0.0-0.8) K/uL Eos # (Auto) 0.1 (0.0-0.7) K/uL Baso # (Auto) 0.0 (0.0-0.2) K/uL Puncture Site pCO2 (35-45) mm/Hg pO2 (80-100) mm/Hg HCO3 (21-28) mmol/L ABG pH (7.35-7.45) ABG Total CO2 (22-28) mmol/L ABG O2 Saturation (95-98) % ABG Base Excess (-2.0-3.0) mmol/L ABG Hemoglobin (11.7-17.4) g/dL ABG Carboxyhemoglobin (0.5-1.5) % POC ABG HHb (Measured) (0.0-5.0) % ABG Methemoglobin (0.0-3.0) % Jamey Test A-a O2 Difference mm/Hg Respiratory Index Hgb O2 Saturation (95.0-98.0) % Vent Mode Mechanical Rate FiO2 % Tidal Volume PEEP Sodium 145 (132-148) mmol/L Potassium 5.3 H (3.6-5.2) mmol/L Chloride 110 H (98-107) mmol/L Carbon Dioxide 20 L (22-30) mmol/L Anion Gap 19 (10-20) BUN 19 (9-20) mg/dL Creatinine 1.0 (0.8-1.5) mg/dL Est GFR ( Amer) > 60 Est GFR (Non-Af Amer) > 60 POC Glucose (mg/dL) 366 H (65-110) mg/dL Random Glucose 386 H (75-110) mg/dL Calcium 8.3 L (8.6-10.4) mg/dl Phosphorus 3.3 (2.5-4.5) mg/dL Magnesium 1.9 (1.6-2.3) mg/dL Total Bilirubin 0.8 (0.2-1.3) mg/dL AST 34 (17-59) U/L ALT 11 L D (21-72) U/L Alkaline Phosphatase 79 (38-126) U/L Total Protein 6.6 (6.3-8.3) g/dL Albumin 3.2 L (3.5-5.0) g/dL Globulin 3.5 (2.2-3.9) gm/dL Albumin/Globulin Ratio 0.9 L (1.0-2.1) Urine Color (YELLOW) Urine Clarity (Clear) Urine pH (5.0-8.0) Ur Specific Ramer (1.003-1.030) Urine Protein (NEGATIVE) mg/dL Urine Glucose (UA) (Normal) mg/dL Urine Ketones (NEGATIVE) mg/dL Urine Blood (NEGATIVE) Urine Nitrate (NEGATIVE) Urine Bilirubin (NEGATIVE) Urine Urobilinogen (0.2-1.0) mg/dL Ur Leukocyte Esterase (Negative) Minh/uL Urine WBC (Auto) (0-5) /hpf Urine RBC (Auto) (0-3) /hpf Urine Bacteria (<OCC) Urine Yeast (Budding) (NEGATIVE) /hpf Butalbital Confirm Opiates (GC/MS) Codeine Confirmation Morphine Confirm Hydrocodone Confirm Oxycodone Confirm Methadone (GC/MS) Methadone Confirm Free Hydromorphone Conf Propoxyphenes Norpropoxyphene Barbiturates Phencyclidine (PCP) Phencyclidine (GC/MS) Amphetamines Amphetamines Confirm Methamphetamine Confirm Methylenedioxyamph MDA MDMA Amobarbital Confirm Butabarbital Pentobarbital Confirm Phenobarbital Confirm Secobarbital Confirm Alprazolam Confirm Benzodiazepines Nordiazepam Confirm Desalkylfluraze Cnfrm Lorazepam Confirm Oxazepam Confirmation Cocaine & Metabolite Cocaine Confirmation Cocaethylene Confirm Benzoylecgonine Confrm Ecgonine Methyl Malia Marijuana THC Confirmation Carboxy THC Confirm Drugs of Abuse Comment 05/22/18 05/22/18 05/22/18 Range/Units 05:30 05:24 05:23 WBC (4.8-10.8) K/uL RBC (4.40-5.90) Mil/uL Hgb (12.0-18.0) g/dL Hct (35.0-51.0) % MCV (80.0-94.0) fL MCH (27.0-31.0) pg MCHC (33.0-37.0) g/dL RDW (11.5-14.5) % Plt Count (130-400) K/uL MPV (7.2-11.7) fL Neut % (Auto) (50.0-75.0) % Lymph % (Auto) (20.0-40.0) % [place] % (Auto) (0.0-10.0) % Eos % (Auto) (0.0-4.0) % Baso % (Auto) (0.0-2.0) % Neut # (Auto) (1.8-7.0) K/uL Lymph # (Auto) (1.0-4.3) K/uL [place] # (Auto) (0.0-0.8) K/uL Eos # (Auto) (0.0-0.7) K/uL Baso # (Auto) (0.0-0.2) K/uL Puncture Site Rb pCO2 35 (35-45) mm/Hg pO2 118 H (80-100) mm/Hg HCO3 25.9 (21-28) mmol/L ABG pH 7.46 H (7.35-7.45) ABG Total CO2 26.0 (22-28) mmol/L ABG O2 Saturation 99.6 H (95-98) % ABG Base Excess 1.3 (-2.0-3.0) mmol/L ABG Hemoglobin 11.1 L (11.7-17.4) g/dL ABG Carboxyhemoglobin 1.7 H (0.5-1.5) % POC ABG HHb (Measured) 0.4 (0.0-5.0) % ABG Methemoglobin 1.1 (0.0-3.0) % Jamey Test Na A-a O2 Difference 123.0 mm/Hg Respiratory Index 1.0 Hgb O2 Saturation 96.9 (95.0-98.0) % Vent Mode Prvc Mechanical Rate 18 FiO2 40.0 % Tidal Volume 500 PEEP 5 Sodium (132-148) mmol/L Potassium (3.6-5.2) mmol/L Chloride (98-107) mmol/L Carbon Dioxide (22-30) mmol/L Anion Gap (10-20) BUN (9-20) mg/dL Creatinine (0.8-1.5) mg/dL Est GFR ( Amer) Est GFR (Non-Af Amer) POC Glucose (mg/dL) 444 H* 416 H* (65-110) mg/dL Random Glucose (75-110) mg/dL Calcium (8.6-10.4) mg/dl Phosphorus (2.5-4.5) mg/dL Magnesium (1.6-2.3) mg/dL Total Bilirubin (0.2-1.3) mg/dL AST (17-59) U/L ALT (21-72) U/L Alkaline Phosphatase (38-126) U/L Total Protein (6.3-8.3) g/dL Albumin (3.5-5.0) g/dL Globulin (2.2-3.9) gm/dL Albumin/Globulin Ratio (1.0-2.1) Urine Color (YELLOW) Urine Clarity (Clear) Urine pH (5.0-8.0) Ur Specific Ramer (1.003-1.030) Urine Protein (NEGATIVE) mg/dL Urine Glucose (UA) (Normal) mg/dL Urine Ketones (NEGATIVE) mg/dL Urine Blood (NEGATIVE) Urine Nitrate (NEGATIVE) Urine Bilirubin (NEGATIVE) Urine Urobilinogen (0.2-1.0) mg/dL Ur Leukocyte Esterase (Negative) Minh/uL Urine WBC (Auto) (0-5) /hpf Urine RBC (Auto) (0-3) /hpf Urine Bacteria (<OCC) Urine Yeast (Budding) (NEGATIVE) /hpf Butalbital Confirm Opiates (GC/MS) Codeine Confirmation Morphine Confirm Hydrocodone Confirm Oxycodone Confirm Methadone (GC/MS) Methadone Confirm Free Hydromorphone Conf Propoxyphenes Norpropoxyphene Barbiturates Phencyclidine (PCP) Phencyclidine (GC/MS) Amphetamines Amphetamines Confirm Methamphetamine Confirm Methylenedioxyamph MDA MDMA Amobarbital Confirm Butabarbital Pentobarbital Confirm Phenobarbital Confirm Secobarbital Confirm Alprazolam Confirm Benzodiazepines Nordiazepam Confirm Desalkylfluraze Cnfrm Lorazepam Confirm Oxazepam Confirmation Cocaine & Metabolite Cocaine Confirmation Cocaethylene Confirm Benzoylecgonine Confrm Ecgonine Methyl Malia Marijuana THC Confirmation Carboxy THC Confirm Drugs of Abuse Comment 05/22/18 05/22/18 05/21/18 Range/Units 02:41 00:24 17:42 WBC (4.8-10.8) K/uL RBC (4.40-5.90) Mil/uL Hgb (12.0-18.0) g/dL Hct (35.0-51.0) % MCV (80.0-94.0) fL MCH (27.0-31.0) pg MCHC (33.0-37.0) g/dL RDW (11.5-14.5) % Plt Count (130-400) K/uL MPV (7.2-11.7) fL Neut % (Auto) (50.0-75.0) % Lymph % (Auto) (20.0-40.0) % [place] % (Auto) (0.0-10.0) % Eos % (Auto) (0.0-4.0) % Baso % (Auto) (0.0-2.0) % Neut # (Auto) (1.8-7.0) K/uL Lymph # (Auto) (1.0-4.3) K/uL [place] # (Auto) (0.0-0.8) K/uL Eos # (Auto) (0.0-0.7) K/uL Baso # (Auto) (0.0-0.2) K/uL Puncture Site pCO2 (35-45) mm/Hg pO2 (80-100) mm/Hg HCO3 (21-28) mmol/L ABG pH (7.35-7.45) ABG Total CO2 (22-28) mmol/L ABG O2 Saturation (95-98) % ABG Base Excess (-2.0-3.0) mmol/L ABG Hemoglobin (11.7-17.4) g/dL ABG Carboxyhemoglobin (0.5-1.5) % POC ABG HHb (Measured) (0.0-5.0) % ABG Methemoglobin (0.0-3.0) % Jamey Test A-a O2 Difference mm/Hg Respiratory Index Hgb O2 Saturation (95.0-98.0) % Vent Mode Mechanical Rate FiO2 % Tidal Volume PEEP Sodium (132-148) mmol/L Potassium (3.6-5.2) mmol/L Chloride (98-107) mmol/L Carbon Dioxide (22-30) mmol/L Anion Gap (10-20) BUN (9-20) mg/dL Creatinine (0.8-1.5) mg/dL Est GFR ( Amer) Est GFR (Non-Af Amer) POC Glucose (mg/dL) 373 H 345 H (65-110) mg/dL Random Glucose (75-110) mg/dL Calcium (8.6-10.4) mg/dl Phosphorus (2.5-4.5) mg/dL Magnesium (1.6-2.3) mg/dL Total Bilirubin (0.2-1.3) mg/dL AST (17-59) U/L ALT (21-72) U/L Alkaline Phosphatase (38-126) U/L Total Protein (6.3-8.3) g/dL Albumin (3.5-5.0) g/dL Globulin (2.2-3.9) gm/dL Albumin/Globulin Ratio (1.0-2.1) Urine Color Yellow (YELLOW) Urine Clarity Hazy (Clear) Urine pH 6.0 (5.0-8.0) Ur Specific [place] 1.022 (1.003-1.030) Urine Protein 2+ H (NEGATIVE) mg/dL Urine Glucose (UA) 3+ H (Normal) mg/dL Urine Ketones 1+ H (NEGATIVE) mg/dL Urine Blood 2+ H (NEGATIVE) Urine Nitrate Negative (NEGATIVE) Urine Bilirubin Negative (NEGATIVE) Urine Urobilinogen Normal (0.2-1.0) mg/dL Ur Leukocyte Esterase 3+ H (Negative) Minh/uL Urine WBC (Auto) 484 H (0-5) /hpf Urine RBC (Auto) 72 H (0-3) /hpf Urine Bacteria Rare (<OCC) Urine Yeast (Budding) Few H (NEGATIVE) /hpf Butalbital Confirm Opiates (GC/MS) Codeine Confirmation Morphine Confirm Hydrocodone Confirm Oxycodone Confirm Methadone (GC/MS) Methadone Confirm Free Hydromorphone Conf Propoxyphenes Norpropoxyphene Barbiturates Phencyclidine (PCP) Phencyclidine (GC/MS) Amphetamines Amphetamines Confirm Methamphetamine Confirm Methylenedioxyamph MDA MDMA Amobarbital Confirm Butabarbital Pentobarbital Confirm Phenobarbital Confirm Secobarbital Confirm Alprazolam Confirm Benzodiazepines Nordiazepam Confirm Desalkylfluraze Cnfrm Lorazepam Confirm Oxazepam Confirmation Cocaine & Metabolite Cocaine Confirmation Cocaethylene Confirm Benzoylecgonine Confrm Ecgonine Methyl Malia Marijuana THC Confirmation Carboxy THC Confirm Drugs of Abuse Comment 05/19/18 Range/Units 00:46 WBC (4.8-10.8) K/uL RBC (4.40-5.90) Mil/uL Hgb (12.0-18.0) g/dL Hct (35.0-51.0) % MCV (80.0-94.0) fL MCH (27.0-31.0) pg MCHC (33.0-37.0) g/dL RDW (11.5-14.5) % Plt Count (130-400) K/uL MPV (7.2-11.7) fL Neut % (Auto) (50.0-75.0) % Lymph % (Auto) (20.0-40.0) % [place] % (Auto) (0.0-10.0) % Eos % (Auto) (0.0-4.0) % Baso % (Auto) (0.0-2.0) % Neut # (Auto) (1.8-7.0) K/uL Lymph # (Auto) (1.0-4.3) K/uL [place] # (Auto) (0.0-0.8) K/uL Eos # (Auto) (0.0-0.7) K/uL Baso # (Auto) (0.0-0.2) K/uL Puncture Site pCO2 (35-45) mm/Hg pO2 (80-100) mm/Hg HCO3 (21-28) mmol/L ABG pH (7.35-7.45) ABG Total CO2 (22-28) mmol/L ABG O2 Saturation (95-98) % ABG Base Excess (-2.0-3.0) mmol/L ABG Hemoglobin (11.7-17.4) g/dL ABG Carboxyhemoglobin (0.5-1.5) % POC ABG HHb (Measured) (0.0-5.0) % ABG Methemoglobin (0.0-3.0) % Jamey Test A-a O2 Difference mm/Hg Respiratory Index Hgb O2 Saturation (95.0-98.0) % Vent Mode Mechanical Rate FiO2 % Tidal Volume PEEP Sodium (132-148) mmol/L Potassium (3.6-5.2) mmol/L Chloride (98-107) mmol/L Carbon Dioxide (22-30) mmol/L Anion Gap (10-20) BUN (9-20) mg/dL Creatinine (0.8-1.5) mg/dL Est GFR ( Amer) Est GFR (Non-Af Amer) POC Glucose (mg/dL) (65-110) mg/dL Random Glucose (75-110) mg/dL Calcium (8.6-10.4) mg/dl Phosphorus (2.5-4.5) mg/dL Magnesium (1.6-2.3) mg/dL Total Bilirubin (0.2-1.3) mg/dL AST (17-59) U/L ALT (21-72) U/L Alkaline Phosphatase (38-126) U/L Total Protein (6.3-8.3) g/dL Albumin (3.5-5.0) g/dL Globulin (2.2-3.9) gm/dL Albumin/Globulin Ratio (1.0-2.1) Urine Color (YELLOW) Urine Clarity (Clear) Urine pH (5.0-8.0) Ur Specific [place] (1.003-1.030) Urine Protein (NEGATIVE) mg/dL Urine Glucose (UA) (Normal) mg/dL Urine Ketones (NEGATIVE) mg/dL Urine Blood (NEGATIVE) Urine Nitrate (NEGATIVE) Urine Bilirubin (NEGATIVE) Urine Urobilinogen (0.2-1.0) mg/dL Ur Leukocyte Esterase (Negative) Minh/uL Urine WBC (Auto) (0-5) /hpf Urine RBC (Auto) (0-3) /hpf Urine Bacteria (<OCC) Urine Yeast (Budding) (NEGATIVE) /hpf Butalbital Confirm TEST NOT PERFORMED Opiates (GC/MS) negative Codeine Confirmation TEST NOT PERFORMED Morphine Confirm TEST NOT PERFORMED Hydrocodone Confirm TEST NOT PERFORMED Oxycodone Confirm TEST NOT PERFORMED Methadone (GC/MS) negative Methadone Confirm TEST NOT PERFORMED Free Hydromorphone Conf TEST NOT PERFORMED Propoxyphenes negative Norpropoxyphene TEST NOT PERFORMED Barbiturates negative Phencyclidine (PCP) negative Phencyclidine (GC/MS) TEST NOT PERFORMED Amphetamines negative Amphetamines Confirm TEST NOT PERFORMED Methamphetamine Confirm TEST NOT PERFORMED Methylenedioxyamph MDA TEST NOT PERFORMED MDMA TEST NOT PERFORMED Amobarbital Confirm TEST NOT PERFORMED Butabarbital TEST NOT PERFORMED Pentobarbital Confirm TEST NOT PERFORMED Phenobarbital Confirm TEST NOT PERFORMED Secobarbital Confirm TEST NOT PERFORMED Alprazolam Confirm TEST NOT PERFORMED Benzodiazepines negative Nordiazepam Confirm TEST NOT PERFORMED Desalkylfluraze Cnfrm TEST NOT PERFORMED Lorazepam Confirm TEST NOT PERFORMED Oxazepam Confirmation TEST NOT PERFORMED Cocaine & Metabolite negative Cocaine Confirmation TEST NOT PERFORMED Cocaethylene Confirm TEST NOT PERFORMED Benzoylecgonine Confrm TEST NOT PERFORMED Ecgonine Methyl Malia TEST NOT PERFORMED Marijuana negative THC Confirmation TEST NOT PERFORMED Carboxy THC Confirm TEST NOT PERFORMED Drugs of Abuse Comment See note Laboratory Results - last 24 hr 05/19/18 05/21/18 05/22/18 00:46 17:42 00:24 WBC RBC Hgb Hct MCV MCH MCHC RDW Plt Count MPV Neut % (Auto) Lymph % (Auto) [place] % (Auto) Eos % (Auto) Baso % (Auto) Neut # (Auto) Lymph # (Auto) [place] # (Auto) Eos # (Auto) Baso # (Auto) Puncture Site pCO2 pO2 HCO3 ABG pH ABG Total CO2 ABG O2 Saturation ABG Base Excess ABG Hemoglobin ABG Carboxyhemoglobin POC ABG HHb (Measured) ABG Methemoglobin Jamey Test A-a O2 Difference Respiratory Index Hgb O2 Saturation Vent Mode Mechanical Rate FiO2 Tidal Volume PEEP Sodium Potassium Chloride Carbon Dioxide Anion Gap BUN Creatinine Est GFR ( Amer) Est GFR (Non-Af Amer) POC Glucose (mg/dL) 345 H 373 H Random Glucose Calcium Phosphorus Magnesium Total Bilirubin AST ALT Alkaline Phosphatase Total Protein Albumin Globulin Albumin/Globulin Ratio Urine Color Urine Clarity Urine pH Ur Specific Ramer Urine Protein Urine Glucose (UA) Urine Ketones Urine Blood Urine Nitrate Urine Bilirubin Urine Urobilinogen Ur Leukocyte Esterase Urine WBC (Auto) Urine RBC (Auto) Urine Bacteria Urine Yeast (Budding) Butalbital Confirm TEST NOT PERFORMED Opiates (GC/MS) negative Codeine Confirmation TEST NOT PERFORMED Morphine Confirm TEST NOT PERFORMED Hydrocodone Confirm TEST NOT PERFORMED Oxycodone Confirm TEST NOT PERFORMED Methadone (GC/MS) negative Methadone Confirm TEST NOT PERFORMED Free Hydromorphone Conf TEST NOT PERFORMED Propoxyphenes negative Norpropoxyphene TEST NOT PERFORMED Barbiturates negative Phencyclidine (PCP) negative Phencyclidine (GC/MS) TEST NOT PERFORMED Amphetamines negative Amphetamines Confirm TEST NOT PERFORMED Methamphetamine Confirm TEST NOT PERFORMED Methylenedioxyamph MDA TEST NOT PERFORMED MDMA TEST NOT PERFORMED Amobarbital Confirm TEST NOT PERFORMED Butabarbital TEST NOT PERFORMED Pentobarbital Confirm TEST NOT PERFORMED Phenobarbital Confirm TEST NOT PERFORMED Secobarbital Confirm TEST NOT PERFORMED Alprazolam Confirm TEST NOT PERFORMED Benzodiazepines negative Nordiazepam Confirm TEST NOT PERFORMED Desalkylfluraze Cnfrm TEST NOT PERFORMED Lorazepam Confirm TEST NOT PERFORMED Oxazepam Confirmation TEST NOT PERFORMED Cocaine & Metabolite negative Cocaine Confirmation TEST NOT PERFORMED Cocaethylene Confirm TEST NOT PERFORMED Benzoylecgonine Confrm TEST NOT PERFORMED Ecgonine Methyl Malia TEST NOT PERFORMED Marijuana negative THC Confirmation TEST NOT PERFORMED Carboxy THC Confirm TEST NOT PERFORMED Drugs of Abuse Comment See note 05/22/18 05/22/18 05/22/18 02:41 05:23 05:24 WBC RBC Hgb Hct MCV MCH MCHC RDW Plt Count MPV Neut % (Auto) Lymph % (Auto) [place] % (Auto) Eos % (Auto) Baso % (Auto) Neut # (Auto) Lymph # (Auto) [place] # (Auto) Eos # (Auto) Baso # (Auto) Puncture Site pCO2 pO2 HCO3 ABG pH ABG Total CO2 ABG O2 Saturation ABG Base Excess ABG Hemoglobin ABG Carboxyhemoglobin POC ABG HHb (Measured) ABG Methemoglobin Jamey Test A-a O2 Difference Respiratory Index Hgb O2 Saturation Vent Mode Mechanical Rate FiO2 Tidal Volume PEEP Sodium Potassium Chloride Carbon Dioxide Anion Gap BUN Creatinine Est GFR ( Amer) Est GFR (Non-Af Amer) POC Glucose (mg/dL) 416 H* 444 H* Random Glucose Calcium Phosphorus Magnesium Total Bilirubin AST ALT Alkaline Phosphatase Total Protein Albumin Globulin Albumin/Globulin Ratio Urine Color Yellow Urine Clarity Hazy Urine pH 6.0 Ur Specific [place] 1.022 Urine Protein 2+ H Urine Glucose (UA) 3+ H Urine Ketones 1+ H Urine Blood 2+ H Urine Nitrate Negative Urine Bilirubin Negative Urine Urobilinogen Normal Ur Leukocyte Esterase 3+ H Urine WBC (Auto) 484 H Urine RBC (Auto) 72 H Urine Bacteria Rare Urine Yeast (Budding) Few H Butalbital Confirm Opiates (GC/MS) Codeine Confirmation Morphine Confirm Hydrocodone Confirm Oxycodone Confirm Methadone (GC/MS) Methadone Confirm Free Hydromorphone Conf Propoxyphenes Norpropoxyphene Barbiturates Phencyclidine (PCP) Phencyclidine (GC/MS) Amphetamines Amphetamines Confirm Methamphetamine Confirm Methylenedioxyamph MDA MDMA Amobarbital Confirm Butabarbital Pentobarbital Confirm Phenobarbital Confirm Secobarbital Confirm Alprazolam Confirm Benzodiazepines Nordiazepam Confirm Desalkylfluraze Cnfrm Lorazepam Confirm Oxazepam Confirmation Cocaine & Metabolite Cocaine Confirmation Cocaethylene Confirm Benzoylecgonine Confrm Ecgonine Methyl Malia Marijuana THC Confirmation Carboxy THC Confirm Drugs of Abuse Comment 05/22/18 05/22/18 05/22/18 05:30 06:14 06:15 WBC 7.5 RBC 3.66 L Hgb 11.2 L Hct 34.4 L MCV 94.1 H MCH 30.5 MCHC 32.4 L RDW 14.4 Plt Count 210 MPV 12.6 H Neut % (Auto) 65.3 Lymph % (Auto) 25.8 [place] % (Auto) 7.4 Eos % (Auto) 0.9 Baso % (Auto) 0.6 Neut # (Auto) 4.9 Lymph # (Auto) 1.9 [place] # (Auto) 0.6 Eos # (Auto) 0.1 Baso # (Auto) 0.0 Puncture Site Rb pCO2 35 pO2 118 H HCO3 25.9 ABG pH 7.46 H ABG Total CO2 26.0 ABG O2 Saturation 99.6 H ABG Base Excess 1.3 ABG Hemoglobin 11.1 L ABG Carboxyhemoglobin 1.7 H POC ABG HHb (Measured) 0.4 ABG Methemoglobin 1.1 Jamey Test Na A-a O2 Difference 123.0 Respiratory Index 1.0 Hgb O2 Saturation 96.9 Vent Mode Prvc Mechanical Rate 18 FiO2 40.0 Tidal Volume 500 PEEP 5 Sodium 145 Potassium 5.3 H Chloride 110 H Carbon Dioxide 20 L Anion Gap 19 BUN 19 Creatinine 1.0 Est GFR ( Amer) > 60 Est GFR (Non-Af Amer) > 60 POC Glucose (mg/dL) Random Glucose 386 H Calcium 8.3 L Phosphorus 3.3 Magnesium 1.9 Total Bilirubin 0.8 AST 34 ALT 11 L D Alkaline Phosphatase 79 Total Protein 6.6 Albumin 3.2 L Globulin 3.5 Albumin/Globulin Ratio 0.9 L Urine Color Urine Clarity Urine pH Ur Specific [place] Urine Protein Urine Glucose (UA) Urine Ketones Urine Blood Urine Nitrate Urine Bilirubin Urine Urobilinogen Ur Leukocyte Esterase Urine WBC (Auto) Urine RBC (Auto) Urine Bacteria Urine Yeast (Budding) Butalbital Confirm Opiates (GC/MS) Codeine Confirmation Morphine Confirm Hydrocodone Confirm Oxycodone Confirm Methadone (GC/MS) Methadone Confirm Free Hydromorphone Conf Propoxyphenes Norpropoxyphene Barbiturates Phencyclidine (PCP) Phencyclidine (GC/MS) Amphetamines Amphetamines Confirm Methamphetamine Confirm Methylenedioxyamph MDA MDMA Amobarbital Confirm Butabarbital Pentobarbital Confirm Phenobarbital Confirm Secobarbital Confirm Alprazolam Confirm Benzodiazepines Nordiazepam Confirm Desalkylfluraze Cnfrm Lorazepam Confirm Oxazepam Confirmation Cocaine & Metabolite Cocaine Confirmation Cocaethylene Confirm Benzoylecgonine Confrm Ecgonine Methyl Malia Marijuana THC Confirmation Carboxy THC Confirm Drugs of Abuse Comment 05/22/18 11:24 WBC RBC Hgb Hct MCV MCH MCHC RDW Plt Count MPV Neut % (Auto) Lymph % (Auto) [place] % (Auto) Eos % (Auto) Baso % (Auto) Neut # (Auto) Lymph # (Auto) [place] # (Auto) Eos # (Auto) Baso # (Auto) Puncture Site pCO2 pO2 HCO3 ABG pH ABG Total CO2 ABG O2 Saturation ABG Base Excess ABG Hemoglobin ABG Carboxyhemoglobin POC ABG HHb (Measured) ABG Methemoglobin Jamey Test A-a O2 Difference Respiratory Index Hgb O2 Saturation Vent Mode Mechanical Rate FiO2 Tidal Volume PEEP Sodium Potassium Chloride Carbon Dioxide Anion Gap BUN Creatinine Est GFR ( Amer) Est GFR (Non-Af Amer) POC Glucose (mg/dL) 366 H Random Glucose Calcium Phosphorus Magnesium Total Bilirubin AST ALT Alkaline Phosphatase Total Protein Albumin Globulin Albumin/Globulin Ratio Urine Color Urine Clarity Urine pH Ur Specific [place] Urine Protein Urine Glucose (UA) Urine Ketones Urine Blood Urine Nitrate Urine Bilirubin Urine Urobilinogen Ur Leukocyte Esterase Urine WBC (Auto) Urine RBC (Auto) Urine Bacteria Urine Yeast (Budding) Butalbital Confirm Opiates (GC/MS) Codeine Confirmation Morphine Confirm Hydrocodone Confirm Oxycodone Confirm Methadone (GC/MS) Methadone Confirm Free Hydromorphone Conf Propoxyphenes Norpropoxyphene Barbiturates Phencyclidine (PCP) Phencyclidine (GC/MS) Amphetamines Amphetamines Confirm Methamphetamine Confirm Methylenedioxyamph MDA MDMA Amobarbital Confirm Butabarbital Pentobarbital Confirm Phenobarbital Confirm Secobarbital Confirm Alprazolam Confirm Benzodiazepines Nordiazepam Confirm Desalkylfluraze Cnfrm Lorazepam Confirm Oxazepam Confirmation Cocaine & Metabolite Cocaine Confirmation Cocaethylene Confirm Benzoylecgonine Confrm Ecgonine Methyl Malia Marijuana THC Confirmation Carboxy THC Confirm Drugs of Abuse Comment Assessment/Plan (1) Status post tracheostomy Current Visit: No Status: Acute Comment: continue ICU care for now Continue antibiotics Continue sedation follow-up lactate level IV fluids Free water for hypernatremia Potassium supplement Attending/Attestation - Attestation I have personally seen and examined this patient.: Yes I have fully participated in the care of the patient.: Yes I have reviewed all pertinent clinical information: Yes Notes (Text): 05/22/18 17:15 patient seen and examined in the intensive care unit. Tolerating CPAP Seen by infectious disease for fever started on Diflucan and amikacin Continue Precedex and Haldol Follow-up culture and sensitivity
--- NOTE | 2018-05-22 14:26 | CP.PCM.CON ---
History of Present Illness - History of Present Illness History of Present Illness: INFECTIOUS DISEASE CONSULT; HPI: 68 y/o male admitted to [facility] for G-tube replacement. 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 Patient has trach and peg and not able to provide any history. PT PRESENTLY SEDATED. HX OBTAINED FROM STAFF/AND RESIDENT. Patient was empirically started on IV Zosyn and IV vancomycin 1 g daily daily. Today patient spiked a fever of 102.8. Patient also underwent Stanley catheter insertion and urinalysis showing pyuria with few budding yeasts. Chest x-ray on admission showed left basilar atelectasis with left pleural effusion Infectious disease consultation therefore requested by PMD for fever in spite of antibiotics. ROS: LIMITED. PMH: COPD, HTN, Hypercholesterolemia Surgical History: CABG - [facility] Procedures ASSISTANCE WITH RESPIRATORY VENTILATION, >96 HRS, CPAP (01/16/18) BYPASS TRACHEA TO CUTANEOUS WITH TRACH DEV, PERC APPROACH (01/16/18) CONTRAST AORTOGRAM (01/16/14) CONTRAST ARTERIOGRAM-LEG (01/16/14) FLUOROSCOPY OF AORTA, BI LE ART USING OTH CONTRAST (01/08/18) INSERTION OF ENDOTRACHEAL AIRWAY INTO TRACHEA, VIA OPENING (01/16/18) INSERTION OF FEEDING DEVICE INTO STOMACH, PERC APPROACH (01/16/18) INSERTION OF INTRALUM DEV INTO INF VENA CAVA, PERC APPROACH (01/16/18) INSPECTION OF UPPER INTESTINAL TRACT, ENDO (01/16/18) RESPIRATORY VENTILATION, GREATER THAN 96 CONSECUTIVE HOURS (01/16/18) Family History: States: No Known Family Hx - Social History Hx Alcohol Use: No Hx Substance Use: No - Immunization History Hx Tetanus Toxoid Vaccination: No Hx Influenza Vaccination: No Hx Pneumococcal Vaccination: No Allergy; NKA Past Patient History - Infectious Disease Hx of Infectious Diseases: None - Past Medical History & Family History Past Medical History?: Yes - Past Social History Smoking Status: Never Smoked - CARDIAC Hx Circulatory Problems: Yes Hx Hypercholesterolemia: Yes Hx Hypertension: Yes Hx Peripheral Vascular Disease: Yes - PULMONARY Hx Chronic Obstructive Pulmonary Disease (COPD): Yes - NEUROLOGICAL HX Cerebrovascular Accident: Yes - HEENT Hx HEENT Problems: Yes Hx Cataracts: Yes (bilateral cat ext with iol) - RENAL Hx Chronic Kidney Disease: No - ENDOCRINE/METABOLIC Hx Diabetes Mellitus Type 2: Yes - HEMATOLOGICAL/ONCOLOGICAL Hx Blood Disorders: No - INTEGUMENTARY Hx Dermatological Problems: Yes Other/Comment: small ulcers both great toes. bilateral lower ext scratches ( scabs), discolored brownish looking. - MUSCULOSKELETAL/RHEUMATOLOGICAL Hx Falls: No - GASTROINTESTINAL Hx Gastrointestinal Disorders: Yes Other/Comment: Peg tube feeder. - GENITOURINARY/GYNECOLOGICAL Hx Genitourinary Disorders: No - PSYCHIATRIC Hx Substance Use: No - SURGICAL HISTORY Hx Coronary Artery Bypass Graft: Yes - ANESTHESIA Hx Anesthesia: Yes Hx Anesthesia Reactions: No Hx Malignant Hyperthermia: No Meds Allergies/Adverse Reactions: Allergies Allergy/AdvReac Type Severity Reaction Status Date / Time No Known Allergies Allergy Verified 05/17/18 17:43 - Medications Medications: Current Medications Albuterol/Ipratropium (Duoneb 3 Mg/0.5 Mg (3 Ml) Ud) 3 ml INH RQ6 [facility] Last Admin: 05/22/18 13:59 Dose: 3 ml Ascorbic Acid (Vitamin C 250 Mg Tab) 250 mg GT DAILY [facility] Last Admin: 05/22/18 10:28 Dose: 250 mg Aspirin (Aspirin Chewable) 81 mg GT DAILY [facility] Last Admin: 05/22/18 10:25 Dose: 81 mg Carvedilol (Coreg) 12.5 mg GT BID [facility] Last Admin: 05/22/18 10:25 Dose: 12.5 mg Enoxaparin Sodium (Lovenox) 40 mg SC DAILY [facility] Last Admin: 05/22/18 10:24 Dose: 40 mg Ferrous Sulfate (Feosol Liq) 300 mg PO DAILY [facility] Last Admin: 05/22/18 10:25 Dose: 300 mg Haloperidol Lactate (Haldol) 1 mg IM Q6H PRN PRN Reason: Agitation Last Admin: 05/22/18 06:54 Dose: 1 mg Dexmedetomidine HCl 200 mcg/ (Sodium Chloride) 50 mls @ 3.4 mls/hr IV TITR PRN ; Protocol; 0.2 MCG/KG/HR PRN Reason: Sedation Last Admin: 05/22/18 10:52 Dose: 0.8 mcg/kg/hr, 13.6 mls/hr Vancomycin/Sodium Chloride (Vancomycin 1 Gm/Ns 200 Ml) 1 gm in 200 mls @ 167 mls/hr IVPB Q24H [facility] PRN Reason: Protocol Stop: 05/23/18 22:01 Last Admin: 05/21/18 21:30 Dose: 167 mls/hr Insulin Aspart (Novolog) 0 unit SC Q6 [facility] PRN Reason: Protocol Last Admin: 05/22/18 12:50 Dose: 10 unit Insulin Detemir (Levemir) 30 unit SC Q12 [facility] Last Admin: 05/19/18 11:00 Dose: 30 units Levetiracetam (Keppra) 500 mg GT Q12H [facility] Last Admin: 05/22/18 06:54 Dose: 500 mg Losartan Potassium (Cozaar) 50 mg PEG BID [facility] Last Admin: 05/22/18 11:03 Dose: 50 mg Multivitamins/Vitamin C (Multi-Delyn Liquid) 5 ml GT DAILY [facility] Last Admin: 05/22/18 10:28 Dose: 5 ml Pantoprazole Sodium (Protonix Susp) 40 mg PEG 1000 [facility] Last Admin: 05/22/18 10:26 Dose: 40 mg Tamsulosin HCl (Flomax) 0.4 mg PEG DAILY [facility] Last Admin: 05/22/18 10:26 Dose: 0.4 mg Valproate Sodium (Depakene Oral Soln) 500 mg GT Q12H [facility] Last Admin: 05/22/18 06:54 Dose: 500 mg Zinc Sulfate (Zinc Sulfate 220 Mg Cap) 220 mg GT DAILY [facility] Last Admin: 05/22/18 10:26 Dose: 220 mg Physical Exam - Constitutional Appears: No Acute Distress - Head Exam Head Exam: NORMAL INSPECTION - Eye Exam Eye Exam: PERRL Pupil Exam: PERRL - ENT Exam ENT Exam: Mucous Membranes Dry, Normal Exam (TRACH. +VE ) - Neck Exam Neck exam: Positive for: Normal Inspection - Respiratory Exam Respiratory Exam: Rhonchi, NORMAL BREATHING PATTERN - Cardiovascular Exam Cardiovascular Exam: Tachycardia, REGULAR RHYTHM, +S1, +S2 - GI/Abdominal Exam GI & Abdominal Exam: Normal Bowel Sounds, Soft (+VE PEG IN PLACE.) - Extremities Exam Extremities exam: Positive for: pedal edema, pedal pulses present (RT FOOT 2ND TOE WITH NECROSIS AND DRY GANGRENE. MULTIPLE HEALED SCABS /SKIN LESIONS LE+VE). Negative for: calf tenderness - Skin Skin Exam: Dry, Warm Results - Vital Signs Recent Vital Signs: Last Vital Signs Temp 98.5 F 05/22/18 12:00 Pulse 76 05/22/18 12:00 Resp 15 05/22/18 12:00 BP 141/56 L 05/22/18 11:51 Pulse Ox 99 05/22/18 12:00 - Labs Result Diagrams: 05/22/18 06:14 05/22/18 06:15 Labs: Laboratory Results - last 24 hr 05/19/18 05/21/18 05/22/18 00:46 17:42 00:24 WBC RBC Hgb Hct MCV MCH MCHC RDW Plt Count MPV Neut % (Auto) Lymph % (Auto) [place] % (Auto) Eos % (Auto) Baso % (Auto) Neut # (Auto) Lymph # (Auto) [place] # (Auto) Eos # (Auto) Baso # (Auto) Puncture Site pCO2 pO2 HCO3 ABG pH ABG Total CO2 ABG O2 Saturation ABG Base Excess ABG Hemoglobin ABG Carboxyhemoglobin POC ABG HHb (Measured) ABG Methemoglobin Jamey Test A-a O2 Difference Respiratory Index Hgb O2 Saturation Vent Mode Mechanical Rate FiO2 Tidal Volume PEEP Sodium Potassium Chloride Carbon Dioxide Anion Gap BUN Creatinine Est GFR ( Amer) Est GFR (Non-Af Amer) POC Glucose (mg/dL) 345 H 373 H Random Glucose Calcium Phosphorus Magnesium Total Bilirubin AST ALT Alkaline Phosphatase Total Protein Albumin Globulin Albumin/Globulin Ratio Urine Color Urine Clarity Urine pH Ur Specific [place] Urine Protein Urine Glucose (UA) Urine Ketones Urine Blood Urine Nitrate Urine Bilirubin Urine Urobilinogen Ur Leukocyte Esterase Urine WBC (Auto) Urine RBC (Auto) Urine Bacteria Urine Yeast (Budding) Butalbital Confirm TEST NOT PERFORMED Opiates (GC/MS) negative Codeine Confirmation TEST NOT PERFORMED Morphine Confirm TEST NOT PERFORMED Hydrocodone Confirm TEST NOT PERFORMED Oxycodone Confirm TEST NOT PERFORMED Methadone (GC/MS) negative Methadone Confirm TEST NOT PERFORMED Free Hydromorphone Conf TEST NOT PERFORMED Propoxyphenes negative Norpropoxyphene TEST NOT PERFORMED Barbiturates negative Phencyclidine (PCP) negative Phencyclidine (GC/MS) TEST NOT PERFORMED Amphetamines negative Amphetamines Confirm TEST NOT PERFORMED Methamphetamine Confirm TEST NOT PERFORMED Methylenedioxyamph MDA TEST NOT PERFORMED MDMA TEST NOT PERFORMED Amobarbital Confirm TEST NOT PERFORMED Butabarbital TEST NOT PERFORMED Pentobarbital Confirm TEST NOT PERFORMED Phenobarbital Confirm TEST NOT PERFORMED Secobarbital Confirm TEST NOT PERFORMED Alprazolam Confirm TEST NOT PERFORMED Benzodiazepines negative Nordiazepam Confirm TEST NOT PERFORMED Desalkylfluraze Cnfrm TEST NOT PERFORMED Lorazepam Confirm TEST NOT PERFORMED Oxazepam Confirmation TEST NOT PERFORMED Cocaine & Metabolite negative Cocaine Confirmation TEST NOT PERFORMED Cocaethylene Confirm TEST NOT PERFORMED Benzoylecgonine Confrm TEST NOT PERFORMED Ecgonine Methyl Malia TEST NOT PERFORMED Marijuana negative THC Confirmation TEST NOT PERFORMED Carboxy THC Confirm TEST NOT PERFORMED Drugs of Abuse Comment See note 05/22/18 05/22/18 05/22/18 02:41 05:23 05:24 WBC RBC Hgb Hct MCV MCH MCHC RDW Plt Count MPV Neut % (Auto) Lymph % (Auto) [place] % (Auto) Eos % (Auto) Baso % (Auto) Neut # (Auto) Lymph # (Auto) [place] # (Auto) Eos # (Auto) Baso # (Auto) Puncture Site pCO2 pO2 HCO3 ABG pH ABG Total CO2 ABG O2 Saturation ABG Base Excess ABG Hemoglobin ABG Carboxyhemoglobin POC ABG HHb (Measured) ABG Methemoglobin Jamey Test A-a O2 Difference Respiratory Index Hgb O2 Saturation Vent Mode Mechanical Rate FiO2 Tidal Volume PEEP Sodium Potassium Chloride Carbon Dioxide Anion Gap BUN Creatinine Est GFR ( Amer) Est GFR (Non-Af Amer) POC Glucose (mg/dL) 416 H* 444 H* Random Glucose Calcium Phosphorus Magnesium Total Bilirubin AST ALT Alkaline Phosphatase Total Protein Albumin Globulin Albumin/Globulin Ratio Urine Color Yellow Urine Clarity Hazy Urine pH 6.0 Ur Specific [place] 1.022 Urine Protein 2+ H Urine Glucose (UA) 3+ H Urine Ketones 1+ H Urine Blood 2+ H Urine Nitrate Negative Urine Bilirubin Negative Urine Urobilinogen Normal Ur Leukocyte Esterase 3+ H Urine WBC (Auto) 484 H Urine RBC (Auto) 72 H Urine Bacteria Rare Urine Yeast (Budding) Few H Butalbital Confirm Opiates (GC/MS) Codeine Confirmation Morphine Confirm Hydrocodone Confirm Oxycodone Confirm Methadone (GC/MS) Methadone Confirm Free Hydromorphone Conf Propoxyphenes Norpropoxyphene Barbiturates Phencyclidine (PCP) Phencyclidine (GC/MS) Amphetamines Amphetamines Confirm Methamphetamine Confirm Methylenedioxyamph MDA MDMA Amobarbital Confirm Butabarbital Pentobarbital Confirm Phenobarbital Confirm Secobarbital Confirm Alprazolam Confirm Benzodiazepines Nordiazepam Confirm Desalkylfluraze Cnfrm Lorazepam Confirm Oxazepam Confirmation Cocaine & Metabolite Cocaine Confirmation Cocaethylene Confirm Benzoylecgonine Confrm Ecgonine Methyl Malia Marijuana THC Confirmation Carboxy THC Confirm Drugs of Abuse Comment 05/22/18 05/22/18 05/22/18 05:30 06:14 06:15 WBC 7.5 RBC 3.66 L Hgb 11.2 L Hct 34.4 L MCV 94.1 H MCH 30.5 MCHC 32.4 L RDW 14.4 Plt Count 210 MPV 12.6 H Neut % (Auto) 65.3 Lymph % (Auto) 25.8 [place] % (Auto) 7.4 Eos % (Auto) 0.9 Baso % (Auto) 0.6 Neut # (Auto) 4.9 Lymph # (Auto) 1.9 [place] # (Auto) 0.6 Eos # (Auto) 0.1 Baso # (Auto) 0.0 Puncture Site Rb pCO2 35 pO2 118 H HCO3 25.9 ABG pH 7.46 H ABG Total CO2 26.0 ABG O2 Saturation 99.6 H ABG Base Excess 1.3 ABG Hemoglobin 11.1 L ABG Carboxyhemoglobin 1.7 H POC ABG HHb (Measured) 0.4 ABG Methemoglobin 1.1 Jamey Test Na A-a O2 Difference 123.0 Respiratory Index 1.0 Hgb O2 Saturation 96.9 Vent Mode Prvc Mechanical Rate 18 FiO2 40.0 Tidal Volume 500 PEEP 5 Sodium 145 Potassium 5.3 H Chloride 110 H Carbon Dioxide 20 L Anion Gap 19 BUN 19 Creatinine 1.0 Est GFR ( Amer) > 60 Est GFR (Non-Af Amer) > 60 POC Glucose (mg/dL) Random Glucose 386 H Calcium 8.3 L Phosphorus 3.3 Magnesium 1.9 Total Bilirubin 0.8 AST 34 ALT 11 L D Alkaline Phosphatase 79 Total Protein 6.6 Albumin 3.2 L Globulin 3.5 Albumin/Globulin Ratio 0.9 L Urine Color Urine Clarity Urine pH Ur Specific [place] Urine Protein Urine Glucose (UA) Urine Ketones Urine Blood Urine Nitrate Urine Bilirubin Urine Urobilinogen Ur Leukocyte Esterase Urine WBC (Auto) Urine RBC (Auto) Urine Bacteria Urine Yeast (Budding) Butalbital Confirm Opiates (GC/MS) Codeine Confirmation Morphine Confirm Hydrocodone Confirm Oxycodone Confirm Methadone (GC/MS) Methadone Confirm Free Hydromorphone Conf Propoxyphenes Norpropoxyphene Barbiturates Phencyclidine (PCP) Phencyclidine (GC/MS) Amphetamines Amphetamines Confirm Methamphetamine Confirm Methylenedioxyamph MDA MDMA Amobarbital Confirm Butabarbital Pentobarbital Confirm Phenobarbital Confirm Secobarbital Confirm Alprazolam Confirm Benzodiazepines Nordiazepam Confirm Desalkylfluraze Cnfrm Lorazepam Confirm Oxazepam Confirmation Cocaine & Metabolite Cocaine Confirmation Cocaethylene Confirm Benzoylecgonine Confrm Ecgonine Methyl Malia Marijuana THC Confirmation Carboxy THC Confirm Drugs of Abuse Comment 05/22/18 11:24 WBC RBC Hgb Hct MCV MCH MCHC RDW Plt Count MPV Neut % (Auto) Lymph % (Auto) [place] % (Auto) Eos % (Auto) Baso % (Auto) Neut # (Auto) Lymph # (Auto) [place] # (Auto) Eos # (Auto) Baso # (Auto) Puncture Site pCO2 pO2 HCO3 ABG pH ABG Total CO2 ABG O2 Saturation ABG Base Excess ABG Hemoglobin ABG Carboxyhemoglobin POC ABG HHb (Measured) ABG Methemoglobin Jamey Test A-a O2 Difference Respiratory Index Hgb O2 Saturation Vent Mode Mechanical Rate FiO2 Tidal Volume PEEP Sodium Potassium Chloride Carbon Dioxide Anion Gap BUN Creatinine Est GFR ( Amer) Est GFR (Non-Af Amer) POC Glucose (mg/dL) 366 H Random Glucose Calcium Phosphorus Magnesium Total Bilirubin AST ALT Alkaline Phosphatase Total Protein Albumin Globulin Albumin/Globulin Ratio Urine Color Urine Clarity Urine pH Ur Specific [place] Urine Protein Urine Glucose (UA) Urine Ketones Urine Blood Urine Nitrate Urine Bilirubin Urine Urobilinogen Ur Leukocyte Esterase Urine WBC (Auto) Urine RBC (Auto) Urine Bacteria Urine Yeast (Budding) Butalbital Confirm Opiates (GC/MS) Codeine Confirmation Morphine Confirm Hydrocodone Confirm Oxycodone Confirm Methadone (GC/MS) Methadone Confirm Free Hydromorphone Conf Propoxyphenes Norpropoxyphene Barbiturates Phencyclidine (PCP) Phencyclidine (GC/MS) Amphetamines Amphetamines Confirm Methamphetamine Confirm Methylenedioxyamph MDA MDMA Amobarbital Confirm Butabarbital Pentobarbital Confirm Phenobarbital Confirm Secobarbital Confirm Alprazolam Confirm Benzodiazepines Nordiazepam Confirm Desalkylfluraze Cnfrm Lorazepam Confirm Oxazepam Confirmation Cocaine & Metabolite Cocaine Confirmation Cocaethylene Confirm Benzoylecgonine Confrm Ecgonine Methyl Malia Marijuana THC Confirmation Carboxy THC Confirm Drugs of Abuse Comment - Imaging and Cardiology Chest x-ray Status: Report reviewed by me (SEE REPORT) Assessment & Plan (1) Fever Status: Acute (2) UTI (urinary tract infection) Status: Acute (3) Altered mental status Status: Acute (4) Hyperglycemia Status: Acute (5) Malfunction of percutaneous endoscopic gastrostomy (PEG) tube Status: Acute (6) Diabetes Status: Acute (7) Status post tracheostomy Status: Acute - Assessment and Plan (Free Text) Plan: PANCULTURE. CRP SED RATE START IV AMIKACIN 750MG IVPB STAT DOSE. 05/22/18 ADD IV DIFLUCAN 200MG IVPB X1 STAT DOSE F/U 05/22/18 DIFLUCAN 100MG IVPB QD DAILY. CONTINUE IV VANCOMYCIN 1GM IVPB QD DAILY FOR NOW 05/22/18 START IV AZACTAM 1GM IVPB [id number] 05/22/18 F/U CULTURES TO ADJUST ABX. PRESENTLY PT HAD A FOLY INSERTED TODAY 05/22/18. 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
[2018-05-22] MEDS ORDERED: FLUCONAZOLE 400 MG/200 ML IVPB ONE (15:15)
[2018-05-22] MEDS ORDERED: NS IVPB ONE (15:15)
[2018-05-22] MEDS ORDERED: Fluconazole IV 200mg/100 ml NS 100 ML IVPB ONE (15:30)
[2018-05-22] MEDS: Vancomycin 1 gm/NS 200 ml 1 GM/200 ML BAG IVPB SCH (21:00)
[2018-05-22] MEDS: Insulin Detemir 100 units/ml Vial (Levemir) SC SCH (22:27)
--- NOTE | 2018-05-22 22:50 | PN ---
DATE: 05/22/2018 SUBJECTIVE: The patient is on CPAP. He is at times agitated and no reported bradycardia. PHYSICAL EXAMINATION: VITAL SIGNS: Blood pressure 135/50, heart rate 95, temperature 97.4, respirations 21. HEENT: Normocephalic. CHEST: Bilateral rhonchi. HEART: S1 and S2, regular. EXTREMITIES: Dry and gangrenous changes involving the right second toe. LABORATORY DATA: Hemoglobin and hematocrit are 11.2 and 34.4, white count and platelet count are within normal limits. SMA-7: Sodium 145, potassium 5.3, chloride 110, CO2 20, glucose 386, BUN 19, and creatinine 1. Today's chest x-ray, mild left basilar atelectasis and questionable trace of left pleural effusion. ASSESSMENT: 1. Respiratory failure, requiring mechanical ventilation. 2. Sinus bradycardia. 3. History of cerebrovascular accident, status post tracheostomy and gastrostomy tube feeding. 4. Uncontrolled diabetes mellitus. RECOMMENDATIONS: Continue current sodium valproate at 500 mg every 12 hours via gastrostomy tube. Continue albuterol inhaler every 6 hours p.r.n., Flomax 0.4 mg once a day, Feosol 300 mg daily by gastrostomy tube, Haldol 1 mg IM every 6 hours p.r.n., Keppra 500 mg every 12 hours via gastrostomy tube, Lovenox 40 mg subcutaneously daily, vancomycin 1 gm intravenously daily. Luke Gibbs MD cc: MD Torin (Delete if not dictated.)
[2018-05-22] MEDS ORDERED: Acetaminophen 650mg/20.3ml solution UD GT STA (23:50)
[2018-05-23] MEDS: Sodium Chloride 0.45% 1,000 ML IV SCH ×2 (00:30→12:45)
[2018-05-23] MEDS: Aztreonam 1 GM in Sodium Chloride 0.9% 100 ML IVPB SCH ×3 (01:30→22:30)
[2018-05-23] MEDS: Albuterol-Ipratrop 3 mg / 0.5 (3 ml) UD INH SCH ×4 (02:23→20:16)
[2018-05-23] MEDS: Dexmedetomidine Hydrochloride 200 MCG in Sodium Chloride 0.9% 48 ML IV PRN ×5 (03:00→20:44)
[2018-05-23] MEDS: (Novolog) Insulin Aspart, Recombinant 100 u/ml 10 ml vial SC SCH ×4 (04:47→18:01)
[2018-05-23 05:48] LABS: ARTERIAL BLOOD GAS HEMOGLOBIN 11.5 g/dL (11.7-17.4); ARTERIAL BLOOD GAS O2 SAT 96.1 % (95-98); ARTERIAL BLOOD GAS PCO2 33 mm/Hg (35-45); ARTERIAL BLOOD GAS PO2 76 mm/Hg (80-100); ARTERIAL BLOOD GAS TCO2 26.7 mmol/L (22-28)
[2018-05-23 06:13] LABS: BASO % 0.8 % (0.0-2.0); EOS # 0.1 K/uL (0.0-0.7); EOS % 1.7 % (0.0-4.0); HEMOGLOBIN 10.5 g/dL (12.0-18.0); LYMPH # 1.7 K/uL (1.0-4.3); LYMPH % 28.4 % (20.0-40.0); MEAN CELL VOLUME 92.4 fL (80.0-94.0); MEAN CORPUSCULAR HEMOGLOBIN 30.4 pg (27.0-31.0); MEAN CORPUSCULAR HGB CONC 32.9 g/dL (33.0-37.0); MEAN PLATELET VOLUME 12.1 fL (7.2-11.7); MONO # 0.4 K/uL (0.0-0.8); NEUT # 3.7 K/uL (1.8-7.0); NEUT % 62.1 % (50.0-75.0); NRBC % 0.1 % (0.0-2.0); RBC 3.46 Mil/uL (4.40-5.90); RED CELL DISTRIBUTION WIDTH 13.8 % (11.5-14.5)
[2018-05-23 06:26] LABS: ALB/GLOB RATIO 0.9 (1.0-2.1); ALT/SGPT 19 U/L (21-72); AST/SGOT 18 U/L (17-59); BLOOD UREA NITROGEN 22 mg/dL (9-20); CALCIUM 8.3 mg/dl (8.6-10.4); GFR AFRICAN-AMERICAN > 60; GFR NON-AFRICAN AMERICAN > 60
[2018-05-23] MEDS: levETIRAcetam 100 mg/ml (5ml) Oral Syringe GT SCH ×2 (06:32→17:50)
[2018-05-23] MEDS: Valproic Acid 250 mg/5 ml UD Cup GT SCH ×2 (06:32→17:50)
[2018-05-23] MEDS: Ferrous Sulfate 300 mg/5 mL Liq UD PO SCH (10:51)
[2018-05-23] MEDS: Pantoprazole 40 mg Susp UD PEG SCH (10:51)
[2018-05-23] MEDS: Multiple Vitamins Oral Solution GT SCH (10:52)
[2018-05-23] MEDS: Insulin Detemir 100 units/ml Vial (Levemir) SC SCH ×2 (10:55→21:27)
[2018-05-23] MEDS: Enoxaparin 40 mg Syringe SC SCH (10:55)
[2018-05-23] MEDS: Fluconazole IV 200mg/100 ml NS 100 MG in Premixed IV 1 EA IVPB SCH (10:58)
--- NOTE | 2018-05-23 12:38 | CP.CCUPN ---
CCU Subjective - Physician Review Events Since Last Encounter (Free Text): 05/23/18 12:35 Patient seen and examined Tolerating CPAP since yesterday spiked 103 last night sedated on Precedex and Ativan Tolerating feeding CCU Objective - Vital Signs / Intake & Output Vital Signs (Last 4 hours): Vital Signs Pulse Resp BP Pulse Ox 05/23/18 11:00 72 34 H 98 05/23/18 10:51 72 42 H 134/62 98 05/23/18 10:39 98/55 L 05/23/18 10:00 66 22 100 05/23/18 09:52 67 16 98/55 L 100 05/23/18 09:00 67 22 100 05/23/18 08:51 68 23 142/68 100 Intake and Output (Last 8hrs): Intake & Output 05/22/18 05/23/18 05/23/18 22:59 06:59 14:59 Intake Total 1052 1232 745 Output Total 480 1500 485 Balance 572 -268 260 Weight 151 lb Intake: IV 100 100 Intake, IV Amount 512 692 470 Left Antecubital 200 Right Hand 200 580 400 Right Wrist 112 112 70 Oral 0 Tube Feeding 440 440 275 Output: Urine 480 1500 485 Urethral (Stanley) 480 1500 485 Stool 0 - Physical Exam Head: Positive for: Atraumatic, Normocephalic Pupils: Positive for: PERRL, Other (corneal reflex intact B/L) Mouth: Positive for: Moist Mucous Membranes Respiratory/Chest: Positive for: Clear to Auscultation. Negative for: Respiratory Distress, Wheezes, Rales, Rhonchi Cardiovascular: Positive for: Regular Rate and Rhythm, Normal S1, S2 Abdomen: Positive for: Normal Bowel Sounds. Negative for: Tenderness, Distention, Peritoneal Signs Upper Extremity: Positive for: Normal Inspection. Negative for: Edema Lower Extremity: Positive for: Other (decrease DP pulses B/L; necrotic skin changes noted R>L toes ). Negative for: Edema Neurological: Positive for: Other (not reacting to painful stimuli, corneal reflex intact, PERRLA ). Negative for: GCS=15, CN II-XII Intact, Speech Normal Skin: Positive for: Other (pressure ulcers stage 1 noted on B/L heels. necrotic skin changes noted on right toes and left toes ) Psychiatric: Positive for: Agitated - Medications Active Medications: Active Medications Generic Name Dose Route Start Last Admin Trade Name Freq PRN Reason Stop Dose Admin Albuterol/Ipratropium 3 ml 05/23/18 14:00 Duoneb 3 Mg/0.5 Mg (3 Ml) Ud INH RQ6 [facility] Ascorbic Acid 250 mg 05/19/18 10:00 05/23/18 10:53 Vitamin C 250 Mg Tab GT 250 mg DAILY SHINE Administration Aspirin 81 mg 05/19/18 10:00 05/23/18 10:51 Aspirin Chewable GT 81 mg DAILY SHINE Administration Carvedilol 12.5 mg 05/18/18 18:45 05/23/18 10:39 Coreg GT Not Given BID SHINE Enoxaparin Sodium 40 mg 05/19/18 10:00 05/23/18 10:55 Lovenox SC 40 mg DAILY SHINE Administration Ferrous Sulfate 300 mg 05/19/18 10:00 05/23/18 10:51 Feosol Liq PO 300 mg DAILY SHINE Administration Dexmedetomidine HCl 200 mcg/ 50 mls @ 3.4 mls/hr 05/18/18 21:15 05/23/18 06: 31 Sodium Chloride IV 0.8 mcg/kg/hr TITR PRN 13.6 mls/hr Sedation Administration Protocol 0.2 MCG/KG/HR Vancomycin/Sodium Chloride 1 gm in 200 mls @ 167 mls/hr 05/18/18 22:00 21:00 Vancomycin 1 Gm/Ns 200 Ml IVPB 05/23/18 22:01 167 mls/hr Q24H SHINE Administration Protocol Fluconazole 100 mg/ 50 mls @ 100 mls/hr 05/23/18 10:00 05/23/18 10:58 Miscellaneous IVPB 05/27/18 23:59 100 mls/hr DAILY SHINE Administration Protocol Aztreonam 1 gm/ Sodium 100 mls @ 100 mls/hr 05/22/18 23:30 05/23/18 10:59 Chloride IVPB 100 mls/hr Q12H SHINE Administration Protocol Sodium Chloride 1,000 mls @ 80 mls/hr 05/23/18 00:30 05/23/18 00:30 Sodium Chloride 0.45% IV 80 mls/hr .[id number] SHINE Administration Insulin Aspart 0 unit 05/22/18 12:00 05/23/18 06:31 Novolog SC 12 unit Q6 SHINE Administration Protocol Insulin Detemir 30 unit 05/18/18 22:00 05/23/18 10:55 Levemir SC 30 units Q12 SHINE Administration Levetiracetam 500 mg 05/18/18 18:45 05/23/18 06:32 Keppra GT 500 mg Q12H SHINE Administration Lorazepam 1 mg 05/22/18 18:29 05/23/18 06:36 Ativan IVP 1 mg Q6H PRN Administration Agitation Losartan Potassium 50 mg 05/21/18 18:00 05/23/18 10:53 Cozaar PEG 50 mg BID SHINE Administration Multivitamins/Vitamin C 5 ml 05/19/18 10:00 05/23/18 10:52 Multi-Delyn Liquid GT 5 ml DAILY SHINE Administration Pantoprazole Sodium 40 mg 05/19/18 10:00 05/23/18 10:51 Protonix Susp PEG 40 mg 1000 SHINE Administration Tamsulosin HCl 0.4 mg 05/19/18 10:00 05/23/18 10:53 Flomax PEG 0.4 mg DAILY SHINE Administration Valproate Sodium 500 mg 05/18/18 18:45 05/23/18 06:32 Depakene Oral Soln GT 500 mg Q12H SHINE Administration Zinc Sulfate 220 mg 05/19/18 10:00 05/23/18 10:53 Zinc Sulfate 220 Mg Cap GT 220 mg DAILY SHINE Administration - Patient Studies Lab Studies: Microbiology Studies 05/22/18 02:41 Urine Culture - Final Urine,Catheterized No Growth (<1,000 CFU/ML) 05/22/18 03:07 Blood Culture - Preliminary Blood NO GROWTH AFTER 24 HOURS 05/22/18 03:07 Blood Culture - Preliminary Blood NO GROWTH AFTER 24 HOURS 05/18/18 21:16 Blood Culture - Preliminary Blood-Venous NO GROWTH AFTER 4 DAYS 05/18/18 21:46 Blood Culture - Preliminary Blood-Venous NO GROWTH AFTER 4 DAYS 05/22/18 03:07 Gram Stain - Final Sputum Induced 05/20/18 20:13 Urine Culture - Final Urine,Clean Catch No Growth (<1,000 CFU/ML) Lab Studies 05/23/18 05/23/18 05/23/18 Range/Units 11:27 07:06 06:29 WBC (4.8-10.8) K/uL RBC (4.40-5.90) Mil/uL Hgb (12.0-18.0) g/dL Hct (35.0-51.0) % MCV (80.0-94.0) fL MCH (27.0-31.0) pg MCHC (33.0-37.0) g/dL RDW (11.5-14.5) % Plt Count (130-400) K/uL MPV (7.2-11.7) fL Neut % (Auto) (50.0-75.0) % Lymph % (Auto) (20.0-40.0) % [facility] [place] [facility] % (Auto) (0.0-10.0) % Eos % (Auto) (0.0-4.0) % Baso % (Auto) (0.0-2.0) % Neut # (Auto) (1.8-7.0) K/uL Lymph # (Auto) (1.0-4.3) K/uL [facility] # (Auto) (0.0-0.8) K/uL Eos # (Auto) (0.0-0.7) K/uL Baso # (Auto) (0.0-0.2) K/uL Puncture Site pCO2 (35-45) mm/Hg pO2 (80-100) mm/Hg HCO3 (21-28) mmol/L ABG pH (7.35-7.45) ABG Total CO2 (22-28) mmol/L ABG O2 Saturation (95-98) % ABG Base Excess (-2.0-3.0) mmol/L ABG Hemoglobin (11.7-17.4) g/dL ABG Carboxyhemoglobin (0.5-1.5) % POC ABG HHb (Measured) (0.0-5.0) % ABG Methemoglobin (0.0-3.0) % Jamey Test A-a O2 Difference mm/Hg Respiratory Index Hgb O2 Saturation (95.0-98.0) % Vent Mode FiO2 % Pressure Support CPAP Sodium (132-148) mmol/L Potassium (3.6-5.2) mmol/L Chloride (98-107) mmol/L Carbon Dioxide (22-30) mmol/L Anion Gap (10-20) BUN (9-20) mg/dL Creatinine (0.8-1.5) mg/dL Est GFR ( Amer) Est GFR (Non-Af Amer) POC Glucose (mg/dL) 266 H 429 H* 441 H* (65-110) mg/dL Random Glucose (75-110) mg/dL Calcium (8.6-10.4) mg/dl Phosphorus (2.5-4.5) mg/dL Magnesium (1.6-2.3) mg/dL Total Bilirubin (0.2-1.3) mg/dL AST (17-59) U/L ALT (21-72) U/L Alkaline Phosphatase (38-126) U/L Total Protein (6.3-8.3) g/dL Albumin (3.5-5.0) g/dL Globulin (2.2-3.9) gm/dL Albumin/Globulin Ratio (1.0-2.1) 05/23/18 05/23/18 05/23/18 Range/Units 06:00 05:59 05:18 WBC 6.0 (4.8-10.8) K/uL RBC 3.46 L (4.40-5.90) Mil/uL Hgb 10.5 L (12.0-18.0) g/dL Hct 32.0 L (35.0-51.0) % MCV 92.4 (80.0-94.0) fL MCH 30.4 (27.0-31.0) pg MCHC 32.9 L (33.0-37.0) g/dL RDW 13.8 (11.5-14.5) % Plt Count 176 (130-400) K/uL MPV 12.1 H (7.2-11.7) fL Neut % (Auto) 62.1 (50.0-75.0) % Lymph % (Auto) 28.4 (20.0-40.0) % [facility] [place] [facility] % (Auto) 7.0 (0.0-10.0) % Eos % (Auto) 1.7 (0.0-4.0) % Baso % (Auto) 0.8 (0.0-2.0) % Neut # (Auto) 3.7 (1.8-7.0) K/uL Lymph # (Auto) 1.7 (1.0-4.3) K/uL [facility] [place] [facility] # (Auto) 0.4 (0.0-0.8) K/uL Eos # (Auto) 0.1 (0.0-0.7) K/uL Baso # (Auto) 0.0 (0.0-0.2) K/uL Puncture Site Rb pCO2 33 L (35-45) mm/Hg pO2 76 L (80-100) mm/Hg HCO3 27.0 (21-28) mmol/L ABG pH 7.50 H (7.35-7.45) ABG Total CO2 26.7 (22-28) mmol/L ABG O2 Saturation 96.1 (95-98) % ABG Base Excess 2.8 (-2.0-3.0) mmol/L ABG Hemoglobin 11.5 L (11.7-17.4) g/dL ABG Carboxyhemoglobin 0.8 (0.5-1.5) % POC ABG HHb (Measured) 3.8 (0.0-5.0) % ABG Methemoglobin 2.8 (0.0-3.0) % Jamey Test Na A-a O2 Difference 168.0 mm/Hg Respiratory Index 2.2 Hgb O2 Saturation 92.6 L (95.0-98.0) % Vent Mode Cpap FiO2 40.0 % Pressure Support 12 CPAP 5 Sodium 148 (132-148) mmol/L Potassium 4.3 (3.6-5.2) mmol/L Chloride 114 H (98-107) mmol/L Carbon Dioxide 23 (22-30) mmol/L Anion Gap 15 (10-20) BUN 22 H (9-20) mg/dL Creatinine 1.0 (0.8-1.5) mg/dL Est GFR ( Amer) > 60 Est GFR (Non-Af Amer) > 60 POC Glucose (mg/dL) (65-110) mg/dL Random Glucose 455 H* (75-110) mg/dL Calcium 8.3 L (8.6-10.4) mg/dl Phosphorus 3.2 (2.5-4.5) mg/dL Magnesium 2.0 (1.6-2.3) mg/dL Total Bilirubin 0.3 (0.2-1.3) mg/dL AST 18 (17-59) U/L ALT 19 L D (21-72) U/L Alkaline Phosphatase 116 (38-126) U/L Total Protein 6.2 L (6.3-8.3) g/dL Albumin 3.0 L (3.5-5.0) g/dL Globulin 3.2 (2.2-3.9) gm/dL Albumin/Globulin Ratio 0.9 L (1.0-2.1) 05/22/18 05/22/18 Range/Units 23:43 17:49 WBC (4.8-10.8) K/uL RBC (4.40-5.90) Mil/uL Hgb (12.0-18.0) g/dL Hct (35.0-51.0) % MCV (80.0-94.0) fL MCH (27.0-31.0) pg MCHC (33.0-37.0) g/dL RDW (11.5-14.5) % Plt Count (130-400) K/uL MPV (7.2-11.7) fL Neut % (Auto) (50.0-75.0) % Lymph % (Auto) (20.0-40.0) % [facility] [place] [facility] % (Auto) (0.0-10.0) % Eos % (Auto) (0.0-4.0) % Baso % (Auto) (0.0-2.0) % Neut # (Auto) (1.8-7.0) K/uL Lymph # (Auto) (1.0-4.3) K/uL [facility] # (Auto) (0.0-0.8) K/uL Eos # (Auto) (0.0-0.7) K/uL Baso # (Auto) (0.0-0.2) K/uL Puncture Site pCO2 (35-45) mm/Hg pO2 (80-100) mm/Hg HCO3 (21-28) mmol/L ABG pH (7.35-7.45) ABG Total CO2 (22-28) mmol/L ABG O2 Saturation (95-98) % ABG Base Excess (-2.0-3.0) mmol/L ABG Hemoglobin (11.7-17.4) g/dL ABG Carboxyhemoglobin (0.5-1.5) % POC ABG HHb (Measured) (0.0-5.0) % ABG Methemoglobin (0.0-3.0) % Jamey Test A-a O2 Difference mm/Hg Respiratory Index Hgb O2 Saturation (95.0-98.0) % Vent Mode FiO2 % Pressure Support CPAP Sodium (132-148) mmol/L Potassium (3.6-5.2) mmol/L Chloride (98-107) mmol/L Carbon Dioxide (22-30) mmol/L Anion Gap (10-20) BUN (9-20) mg/dL Creatinine (0.8-1.5) mg/dL Est GFR ( Amer) Est GFR (Non-Af Amer) POC Glucose (mg/dL) 330 H 348 H (65-110) mg/dL Random Glucose (75-110) mg/dL Calcium (8.6-10.4) mg/dl Phosphorus (2.5-4.5) mg/dL Magnesium (1.6-2.3) mg/dL Total Bilirubin (0.2-1.3) mg/dL AST (17-59) U/L ALT (21-72) U/L Alkaline Phosphatase (38-126) U/L Total Protein (6.3-8.3) g/dL Albumin (3.5-5.0) g/dL Globulin (2.2-3.9) gm/dL Albumin/Globulin Ratio (1.0-2.1) Laboratory Results - last 24 hr 05/22/18 05/22/18 05/23/18 17:49 23:43 05:18 WBC RBC Hgb Hct MCV MCH MCHC RDW Plt Count MPV Neut % (Auto) Lymph % (Auto) [facility] [place] % (Auto) Eos % (Auto) Baso % (Auto) Neut # (Auto) Lymph # (Auto) [facility] [place] [facility] # (Auto) Eos # (Auto) Baso # (Auto) Puncture Site Rb pCO2 33 L pO2 76 L HCO3 27.0 ABG pH 7.50 H ABG Total CO2 26.7 ABG O2 Saturation 96.1 ABG Base Excess 2.8 ABG Hemoglobin 11.5 L ABG Carboxyhemoglobin 0.8 POC ABG HHb (Measured) 3.8 ABG Methemoglobin 2.8 Jamey Test Na A-a O2 Difference 168.0 Respiratory Index 2.2 Hgb O2 Saturation 92.6 L Vent Mode Cpap FiO2 40.0 Pressure Support 12 CPAP 5 Sodium Potassium Chloride Carbon Dioxide Anion Gap BUN Creatinine Est GFR ( Amer) Est GFR (Non-Af Amer) POC Glucose (mg/dL) 348 H 330 H Random Glucose Calcium Phosphorus Magnesium Total Bilirubin AST ALT Alkaline Phosphatase Total Protein Albumin Globulin Albumin/Globulin Ratio 05/23/18 05/23/18 05/23/18 05:59 06:00 06:29 WBC 6.0 RBC 3.46 L Hgb 10.5 L Hct 32.0 L MCV 92.4 MCH 30.4 MCHC 32.9 L RDW 13.8 Plt Count 176 MPV 12.1 H Neut % (Auto) 62.1 Lymph % (Auto) 28.4 [facility] [place] % (Auto) 7.0 Eos % (Auto) 1.7 Baso % (Auto) 0.8 Neut # (Auto) 3.7 Lymph # (Auto) 1.7 [facility] # (Auto) 0.4 Eos # (Auto) 0.1 Baso # (Auto) 0.0 Puncture Site pCO2 pO2 HCO3 ABG pH ABG Total CO2 ABG O2 Saturation ABG Base Excess ABG Hemoglobin ABG Carboxyhemoglobin POC ABG HHb (Measured) ABG Methemoglobin Jamey Test A-a O2 Difference Respiratory Index Hgb O2 Saturation Vent Mode FiO2 Pressure Support CPAP Sodium 148 Potassium 4.3 Chloride 114 H Carbon Dioxide 23 Anion Gap 15 BUN 22 H Creatinine 1.0 Est GFR ( Amer) > 60 Est GFR (Non-Af Amer) > 60 POC Glucose (mg/dL) 441 H* Random Glucose 455 H* Calcium 8.3 L Phosphorus 3.2 Magnesium 2.0 Total Bilirubin 0.3 AST 18 ALT 19 L D Alkaline Phosphatase 116 Total Protein 6.2 L Albumin 3.0 L Globulin 3.2 Albumin/Globulin Ratio 0.9 L 05/23/18 05/23/18 07:06 11:27 WBC RBC Hgb Hct MCV MCH MCHC RDW Plt Count MPV Neut % (Auto) Lymph % (Auto) [facility] [place] [facility] % (Auto) Eos % (Auto) Baso % (Auto) Neut # (Auto) Lymph # (Auto) [facility] # (Auto) Eos # (Auto) Baso # (Auto) Puncture Site pCO2 pO2 HCO3 ABG pH ABG Total CO2 ABG O2 Saturation ABG Base Excess ABG Hemoglobin ABG Carboxyhemoglobin POC ABG HHb (Measured) ABG Methemoglobin Jamey Test A-a O2 Difference Respiratory Index Hgb O2 Saturation Vent Mode FiO2 Pressure Support CPAP Sodium Potassium Chloride Carbon Dioxide Anion Gap BUN Creatinine Est GFR ( Amer) Est GFR (Non-Af Amer) POC Glucose (mg/dL) 429 H* 266 H Random Glucose Calcium Phosphorus Magnesium Total Bilirubin AST ALT Alkaline Phosphatase Total Protein Albumin Globulin Albumin/Globulin Ratio Fingerstick Blood Sugar Results: 348 Review of Systems - Review of Systems Systems not reviewed;Unavailable: Other (On ventilatory support) Critical Care Progress Note - Ventilator Checklist Head of Bed 30 Degrees: Yes Daily Sedation Vacation: Yes Daily Assessment of Readiness to Wean: Yes Assessment/Plan (1) Status post tracheostomy Current Visit: No Status: Acute Comment: on IV antibiotics as per infectious disease/ patient still spiking temperature, follow up culture and sensitivity, rule out endocarditis, bone scan to rule out osteomyelitis Continue sedation follow-up lactate level Free water for hypernatremia
--- NOTE | 2018-05-23 19:51 | PN ---
DATE: 05/23/2018 SUBJECTIVE: The patient did not tolerate a trach collar and was placed back on CPAP. He is educated. No reported bradycardia. PHYSICAL EXAMINATION: VITAL SIGNS: Blood pressure 98/55, heart rate 67,temperature 99.5, and respirations 22. HEENT: Head normocephalic. CHEST: Bilateral rhonchi. HEART: S1, S2 regular. ABDOMEN: Soft. EXTREMITIES: Atrophic changes involving the right toes, especially the second toe. LABORATORY DATA: Hemoglobin and hematocrit are 10.5 and 32. White count and platelet counts are within normal limits. Today's SMA-7; sodium 148, potassium 4.3, chloride 115, CO2 of 23, glucose 455, BUN 22, and creatinine 1. Yesterday's chest x-ray, mild bibasilar atelectasis, questionable trace left pleural effusion. ASSESSMENT: 1. Respiratory failure. 2. History of cerebrovascular accident. 3. Improved sinus bradycardia. 4. Systemic hypertension. 5. Uncontrolled diabetes mellitus. RECOMMENDATIONS: Continue aspirin 81 mg once a day, every 12 hours, Cozaar 50 mg twice a day, magnesium chloride at 12.5 twice a day as there is no bradycardia below 60 beats per minute, continue Feosol 300 mg daily via gastrostomy tube, continue IV fluconazole at 500 mg daily, continue Keppra 500 mg via gastrostomy tube every 12 hours, subcutaneous Lovenox at 40 mg daily, Protonix at 40 mg via gastrostomy tube daily, vancomycin 1 gm intravenously daily. Luke Gibbs MD
[2018-05-23] MEDS: Vancomycin 1 gm/NS 200 ml 1 GM/200 ML BAG IVPB SCH (21:27)
[2018-05-24] MEDS: (Novolog) Insulin Aspart, Recombinant 100 u/ml 10 ml vial SC SCH ×5 (00:16→17:40)
[2018-05-24] MEDS: Dexmedetomidine Hydrochloride 200 MCG in Sodium Chloride 0.9% 48 ML IV PRN ×4 (01:00→22:00)
[2018-05-24] MEDS: Albuterol-Ipratrop 3 mg / 0.5 (3 ml) UD INH SCH ×4 (01:13→19:47)
[2018-05-24] MEDS: Sodium Chloride 0.45% 1,000 ML IV SCH ×2 (03:04→05:59)
[2018-05-24] MEDS: Valproic Acid 250 mg/5 ml UD Cup GT SCH ×3 (05:49→21:10)
[2018-05-24] MEDS: levETIRAcetam 100 mg/ml (5ml) Oral Syringe GT SCH ×2 (05:49→17:46)
[2018-05-24 06:16] LABS: ARTERIAL BLOOD GAS HCO3 27.1 mmol/L (21-28); ARTERIAL BLOOD GAS HEMOGLOBIN 10.5 g/dL (11.7-17.4); ARTERIAL BLOOD GAS O2 SAT 99.3 % (95-98); ARTERIAL BLOOD GAS PCO2 40 mm/Hg (35-45); ARTERIAL BLOOD GAS PH 7.44 (7.35-7.45); ARTERIAL BLOOD GAS PO2 97 mm/Hg (80-100); ARTERIAL BLOOD GAS TCO2 28.4 mmol/L (22-28)
[2018-05-24 06:29] LABS: BASO % 0.4 % (0.0-2.0); EOS # 0.2 K/uL (0.0-0.7); EOS % 2.5 % (0.0-4.0); HEMOGLOBIN 10.4 g/dL (12.0-18.0); LYMPH # 2.3 K/uL (1.0-4.3); LYMPH % 31.8 % (20.0-40.0); MEAN CELL VOLUME 92.9 fL (80.0-94.0); MEAN CORPUSCULAR HEMOGLOBIN 30.5 pg (27.0-31.0); MEAN CORPUSCULAR HGB CONC 32.8 g/dL (33.0-37.0); MEAN PLATELET VOLUME 11.8 fL (7.2-11.7); MONO # 0.5 K/uL (0.0-0.8); MONO % 6.7 % (0.0-10.0); NEUT # 4.3 K/uL (1.8-7.0); NEUT % 58.6 % (50.0-75.0); NRBC % 0.1 % (0.0-2.0); RBC 3.4 Mil/uL (4.40-5.90); RED CELL DISTRIBUTION WIDTH 13.8 % (11.5-14.5); WHITE BLOOD COUNT 7.2 K/uL (4.8-10.8)
[2018-05-24 06:40] LABS: ALB/GLOB RATIO 0.9 (1.0-2.1); ALBUMIN 2.9 g/dL (3.5-5.0); ALT/SGPT 15 U/L (21-72); AST/SGOT 16 U/L (17-59); BLOOD UREA NITROGEN 26 mg/dL (9-20); CALCIUM 8.5 mg/dl (8.6-10.4); GFR AFRICAN-AMERICAN > 60; GFR NON-AFRICAN AMERICAN > 60
--- NOTE | 2018-05-24 08:15 | RAD ---
HISTORY: PNA COMPARISON: 05/22/2018 FINDINGS: LUNGS: Current lung volumes more shallow than before. No interval acute pulmonary pathology appreciated PLEURA: No significant pleural effusion identified, no pneumothorax apparent. CARDIOVASCULAR: Cardiomegaly - similar . Atherosclerotic vascular calcifications present. Midline sternotomy and coronary artery bypass clips. OSSEOUS STRUCTURES: Sternotomy. Bilateral shoulder arthrosis VISUALIZED UPPER ABDOMEN: Normal. OTHER FINDINGS: Tracheostomy tube - position appears satisfactory -as before IMPRESSION: No interval acute pathology noted
[2018-05-24] MEDS: Ferrous Sulfate 300 mg/5 mL Liq UD PO SCH (10:25)
[2018-05-24] MEDS: Multiple Vitamins Oral Solution GT SCH (10:25)
[2018-05-24] MEDS: Pantoprazole 40 mg Susp UD PEG SCH (10:25)
[2018-05-24] MEDS: Enoxaparin 40 mg Syringe SC SCH (10:26)
[2018-05-24] MEDS: Fluconazole IV 200mg/100 ml NS 100 MG in Premixed IV 1 EA IVPB SCH (10:26)
[2018-05-24] MEDS: Insulin Detemir 100 units/ml Vial (Levemir) SC SCH ×2 (10:31→21:10)
[2018-05-24] MEDS: Aztreonam 1 GM in Sodium Chloride 0.9% 100 ML IVPB SCH ×2 (11:30→22:57)
--- NOTE | 2018-05-24 12:49 | CP.CCUPN ---
<Desi Pulliam - Last Filed: 05/24/18 12:45> CCU Subjective - Physician Review Subjective (Free Text): 05/21/18 11:55 Pt seen and examined at bedside. No acute events overnight. Afebrile overnight. Patient agitated this am, given dose of Haldol. Currently opening eyes spontaneously. No reaction to painful stimuli. Trach and PEG in place. Minimal trach secretions this morning. Currently on PRVC settings. PEG tube in place, feedings have been restarted. Stanley in place draining light yellow urine. ROS unobtainable due to AMS. 05/24/18 12:45 Pt seen and examined this am. Patient was arousable with verbal and painful stimuli. PEG, trach and urinary catheter in place. ROS unobtainable due to mental status Critical Care Time Spent (in minutes): 45 CCU Objective - Vital Signs / Intake & Output Vital Signs (Last 4 hours): Vital Signs Pulse Resp BP Pulse Ox 05/24/18 10:25 149/59 L 05/24/18 09:01 64 14 131/53 L 05/24/18 09:00 63 13 100 Intake and Output (Last 8hrs): Intake & Output 05/23/18 05/24/18 05/24/18 22:59 06:59 14:59 Intake Total 1435.0 1266.0 376.7 Output Total 365 360 130 Balance 1070.0 906.0 246.7 Weight 154 lb 5.177 oz Intake: IV 123.8 26.2 Intake, IV Amount 871.2 699.8 266.7 Left Wrist 26.7 Left hand Y luer port 240 Right Hand 760 620 Right Wrist 111.2 79.8 Oral 0 Tube Feeding 440 440 110 Other 100 Output: Urine 365 360 130 Urethral (Stanley) 365 360 130 Stool 0 Emesis 0 Other: # Bowel Movements 0 0 0 - Physical Exam Head: Positive for: Atraumatic, Normocephalic Pupils: Positive for: PERRL, Other (corneal reflex intact B/L) Mouth: Positive for: Moist Mucous Membranes Respiratory/Chest: Positive for: Clear to Auscultation. Negative for: Respiratory Distress, Wheezes, Rales, Rhonchi Cardiovascular: Positive for: Regular Rate and Rhythm, Normal S1, S2 Abdomen: Positive for: Normal Bowel Sounds. Negative for: Tenderness, Distention, Peritoneal Signs Upper Extremity: Positive for: Normal Inspection. Negative for: Edema Lower Extremity: Positive for: Other (decrease DP pulses B/L; necrotic skin changes noted R>L toes ). Negative for: Edema Neurological: Positive for: Other (not reacting to painful stimuli, corneal reflex intact, PERRLA ). Negative for: GCS=15, CN II-XII Intact, Speech Normal Skin: Positive for: Other (pressure ulcers stage 1 noted on B/L heels. necrotic skin changes noted on right toes and left toes ) Psychiatric: Positive for: Agitated. Negative for: Oriented x 3 - Medications Active Medications: Active Medications Generic Name Dose Route Start Last Admin Trade Name Freq PRN Reason Stop Dose Admin Albuterol/Ipratropium 3 ml 05/23/18 14:00 05/24/18 07:21 Duoneb 3 Mg/0.5 Mg (3 Ml) Ud INH 3 ml RQ6 SHINE Administration Ascorbic Acid 250 mg 05/19/18 10:00 05/23/18 10:53 Vitamin C 250 Mg Tab GT 250 mg DAILY SHINE Administration Aspirin 81 mg 05/19/18 10:00 05/24/18 10:26 Aspirin Chewable GT 81 mg DAILY SHINE Administration Carvedilol 12.5 mg 05/18/18 18:45 05/24/18 10:25 Coreg GT 12.5 mg BID SHINE Administration Enoxaparin Sodium 40 mg 05/19/18 10:00 05/24/18 10:26 Lovenox SC 40 mg DAILY SHINE Administration Ferrous Sulfate 300 mg 05/19/18 10:00 05/24/18 10:25 Feosol Liq PO 300 mg DAILY SHINE Administration Dexmedetomidine HCl 200 mcg/ 50 mls @ 3.4 mls/hr 05/18/18 21:15 05/24/18 01: 00 Sodium Chloride IV 0.5 mcg/kg/hr TITR PRN 8.5 mls/hr Sedation Administration Protocol 0.2 MCG/KG/HR Fluconazole 100 mg/ 50 mls @ 100 mls/hr 05/23/18 10:00 05/24/18 10:26 Miscellaneous IVPB 05/27/18 23:59 100 mls/hr DAILY SHINE Administration Protocol Aztreonam 1 gm/ Sodium 100 mls @ 100 mls/hr 05/22/18 23:30 05/23/18 22:30 Chloride IVPB 100 mls/hr Q12H SHINE Administration Protocol Insulin Aspart 0 unit 05/24/18 00:00 05/24/18 05:50 Novolog SC 2 units Q6 SHINE Administration Protocol Insulin Detemir 30 unit 05/18/18 22:00 05/24/18 10:31 Levemir SC 30 units Q12 SHINE Administration Levetiracetam 500 mg 05/18/18 18:45 05/24/18 05:49 Keppra GT 500 mg Q12H SHINE Administration Lorazepam 1 mg 05/22/18 18:29 05/23/18 15:17 Ativan IVP 1 mg Q6H PRN Administration Agitation Losartan Potassium 50 mg 05/21/18 18:00 05/24/18 10:26 Cozaar PEG 50 mg BID SHINE Administration Multivitamins/Vitamin C 5 ml 05/19/18 10:00 05/24/18 10:25 Multi-Delyn Liquid GT 5 ml DAILY SHINE Administration Pantoprazole Sodium 40 mg 05/19/18 10:00 05/24/18 10:25 Protonix Susp PEG 40 mg 1000 SHINE Administration Tamsulosin HCl 0.4 mg 05/19/18 10:00 05/24/18 10:26 Flomax PEG 0.4 mg DAILY SHINE Administration Valproate Sodium 750 mg 05/24/18 10:01 05/24/18 10:31 Depakene Oral Soln GT 750 mg Q12H SHINE Administration Zinc Sulfate 220 mg 05/19/18 10:00 05/24/18 10:25 Zinc Sulfate 220 Mg Cap GT 220 mg DAILY SHINE Administration - Patient Studies Lab Studies: Microbiology Studies 05/22/18 03:07 Gram Stain - Final Sputum Induced Sputum Culture - Final NORMAL ORAL HALEY 05/22/18 03:07 Blood Culture - Preliminary Blood NO GROWTH AFTER 48 HOURS 05/22/18 03:07 Blood Culture - Preliminary Blood NO GROWTH AFTER 48 HOURS 05/18/18 21:16 Blood Culture - Final Blood-Venous NO GROWTH AFTER 5 DAYS Gram Stain - Final TEST NOT PERFORMED 05/18/18 21:46 Blood Culture - Final Blood-Venous NO GROWTH AFTER 5 DAYS Gram Stain - Final TEST NOT PERFORMED 05/22/18 02:41 Urine Culture - Final Urine,Catheterized No Growth (<1,000 CFU/ML) Lab Studies 07/04/0605/24/18 05/24/18 Range/Units 11:56 06:21 06:20 WBC 7.2 (4.8-10.8) K/uL RBC 3.40 L (4.40-5.90) Mil/uL Hgb 10.4 L (12.0-18.0) g/dL Hct 31.6 L (35.0-51.0) % MCV 92.9 (80.0-94.0) fL MCH 30.5 (27.0-31.0) pg MCHC 32.8 L (33.0-37.0) g/dL RDW 13.8 (11.5-14.5) % Plt Count 174 (130-400) K/uL MPV 11.8 H (7.2-11.7) fL Neut % (Auto) 58.6 (50.0-75.0) % Lymph % (Auto) 31.8 (20.0-40.0) % [place] % (Auto) 6.7 (0.0-10.0) % Eos % (Auto) 2.5 (0.0-4.0) % Baso % (Auto) 0.4 (0.0-2.0) % Neut # (Auto) 4.3 (1.8-7.0) K/uL Lymph # (Auto) 2.3 (1.0-4.3) K/uL [place] # (Auto) 0.5 (0.0-0.8) K/uL Eos # (Auto) 0.2 (0.0-0.7) K/uL Baso # (Auto) 0.0 (0.0-0.2) K/uL Puncture Site pCO2 (35-45) mm/Hg pO2 (80-100) mm/Hg HCO3 (21-28) mmol/L ABG pH (7.35-7.45) ABG Total CO2 (22-28) mmol/L ABG O2 Saturation (95-98) % ABG Base Excess (-2.0-3.0) mmol/L ABG Hemoglobin (11.7-17.4) g/dL ABG Carboxyhemoglobin (0.5-1.5) % POC ABG HHb (Measured) (0.0-5.0) % ABG Methemoglobin (0.0-3.0) % Jamey Test A-a O2 Difference mm/Hg Respiratory Index Hgb O2 Saturation (95.0-98.0) % Vent Mode FiO2 % PEEP Pressure Support Sodium 152 H (132-148) mmol/L Potassium 3.9 (3.6-5.2) mmol/L Chloride 114 H (98-107) mmol/L Carbon Dioxide 28 (22-30) mmol/L Anion Gap 14 (10-20) BUN 26 H (9-20) mg/dL Creatinine 1.0 (0.8-1.5) mg/dL Est GFR ( Amer) > 60 Est GFR (Non-Af Amer) > 60 POC Glucose (mg/dL) 259 H (65-110) mg/dL Random Glucose 178 H (75-110) mg/dL Calcium 8.5 L (8.6-10.4) mg/dl Phosphorus 3.3 (2.5-4.5) mg/dL Magnesium 2.0 (1.6-2.3) mg/dL Total Bilirubin 0.4 (0.2-1.3) mg/dL AST 16 L (17-59) U/L ALT 15 L D (21-72) U/L Alkaline Phosphatase 82 (38-126) U/L Total Protein 6.2 L (6.3-8.3) g/dL Albumin 2.9 L (3.5-5.0) g/dL Globulin 3.3 (2.2-3.9) gm/dL Albumin/Globulin Ratio 0.9 L (1.0-2.1) Levetiracetam mcg/mL 05/24/18 05/24/18 05/23/18 Range/Units 05:45 05:23 23:36 WBC (4.8-10.8) K/uL RBC (4.40-5.90) Mil/uL Hgb (12.0-18.0) g/dL Hct (35.0-51.0) % MCV (80.0-94.0) fL MCH (27.0-31.0) pg MCHC (33.0-37.0) g/dL RDW (11.5-14.5) % Plt Count (130-400) K/uL MPV (7.2-11.7) fL Neut % (Auto) (50.0-75.0) % Lymph % (Auto) (20.0-40.0) % [place] % (Auto) (0.0-10.0) % Eos % (Auto) (0.0-4.0) % Baso % (Auto) (0.0-2.0) % Neut # (Auto) (1.8-7.0) K/uL Lymph # (Auto) (1.0-4.3) K/uL [place] # (Auto) (0.0-0.8) K/uL Eos # (Auto) (0.0-0.7) K/uL Baso # (Auto) (0.0-0.2) K/uL Puncture Site R brac pCO2 40 (35-45) mm/Hg pO2 97 (80-100) mm/Hg HCO3 27.1 (21-28) mmol/L ABG pH 7.44 (7.35-7.45) ABG Total CO2 28.4 H (22-28) mmol/L ABG O2 Saturation 99.3 H (95-98) % ABG Base Excess 2.8 (-2.0-3.0) mmol/L ABG Hemoglobin 10.5 L (11.7-17.4) g/dL ABG Carboxyhemoglobin 1.6 H (0.5-1.5) % POC ABG HHb (Measured) 0.7 (0.0-5.0) % ABG Methemoglobin 0.9 (0.0-3.0) % Jamey Test Na A-a O2 Difference 138.0 mm/Hg Respiratory Index 1.4 Hgb O2 Saturation 96.8 (95.0-98.0) % Vent Mode Cpap FiO2 40.0 % PEEP 5 Pressure Support 12 Sodium (132-148) mmol/L Potassium (3.6-5.2) mmol/L Chloride (98-107) mmol/L Carbon Dioxide (22-30) mmol/L Anion Gap (10-20) BUN (9-20) mg/dL Creatinine (0.8-1.5) mg/dL Est GFR ( Amer) Est GFR (Non-Af Amer) POC Glucose (mg/dL) 175 H 180 H (65-110) mg/dL Random Glucose (75-110) mg/dL Calcium (8.6-10.4) mg/dl Phosphorus (2.5-4.5) mg/dL Magnesium (1.6-2.3) mg/dL Total Bilirubin (0.2-1.3) mg/dL AST (17-59) U/L ALT (21-72) U/L Alkaline Phosphatase (38-126) U/L Total Protein (6.3-8.3) g/dL Albumin (3.5-5.0) g/dL Globulin (2.2-3.9) gm/dL Albumin/Globulin Ratio (1.0-2.1) Levetiracetam mcg/mL 05/23/18 05/18/18 Range/Units 17:57 21:16 WBC (4.8-10.8) K/uL RBC (4.40-5.90) Mil/uL Hgb (12.0-18.0) g/dL Hct (35.0-51.0) % MCV (80.0-94.0) fL MCH (27.0-31.0) pg MCHC (33.0-37.0) g/dL RDW (11.5-14.5) % Plt Count (130-400) K/uL MPV (7.2-11.7) fL Neut % (Auto) (50.0-75.0) % Lymph % (Auto) (20.0-40.0) % [place] % (Auto) (0.0-10.0) % Eos % (Auto) (0.0-4.0) % Baso % (Auto) (0.0-2.0) % Neut # (Auto) (1.8-7.0) K/uL Lymph # (Auto) (1.0-4.3) K/uL [place] # (Auto) (0.0-0.8) K/uL Eos # (Auto) (0.0-0.7) K/uL Baso # (Auto) (0.0-0.2) K/uL Puncture Site pCO2 (35-45) mm/Hg pO2 (80-100) mm/Hg HCO3 (21-28) mmol/L ABG pH (7.35-7.45) ABG Total CO2 (22-28) mmol/L ABG O2 Saturation (95-98) % ABG Base Excess (-2.0-3.0) mmol/L ABG Hemoglobin (11.7-17.4) g/dL ABG Carboxyhemoglobin (0.5-1.5) % POC ABG HHb (Measured) (0.0-5.0) % ABG Methemoglobin (0.0-3.0) % Jamey Test A-a O2 Difference mm/Hg Respiratory Index Hgb O2 Saturation (95.0-98.0) % Vent Mode FiO2 % PEEP Pressure Support Sodium (132-148) mmol/L Potassium (3.6-5.2) mmol/L Chloride (98-107) mmol/L Carbon Dioxide (22-30) mmol/L Anion Gap (10-20) BUN (9-20) mg/dL Creatinine (0.8-1.5) mg/dL Est GFR ( Amer) Est GFR (Non-Af Amer) POC Glucose (mg/dL) 143 H (65-110) mg/dL Random Glucose (75-110) mg/dL Calcium (8.6-10.4) mg/dl Phosphorus (2.5-4.5) mg/dL Magnesium (1.6-2.3) mg/dL Total Bilirubin (0.2-1.3) mg/dL AST (17-59) U/L ALT (21-72) U/L Alkaline Phosphatase (38-126) U/L Total Protein (6.3-8.3) g/dL Albumin (3.5-5.0) g/dL Globulin (2.2-3.9) gm/dL Albumin/Globulin Ratio (1.0-2.1) Levetiracetam 10.5 mcg/mL Laboratory Results - last 24 hr 05/18/18 05/23/18 05/23/18 21:16 17:57 23:36 WBC RBC Hgb Hct MCV MCH MCHC RDW Plt Count MPV Neut % (Auto) Lymph % (Auto) [place] % (Auto) Eos % (Auto) Baso % (Auto) Neut # (Auto) Lymph # (Auto) [place] # (Auto) Eos # (Auto) Baso # (Auto) Puncture Site pCO2 pO2 HCO3 ABG pH ABG Total CO2 ABG O2 Saturation ABG Base Excess ABG Hemoglobin ABG Carboxyhemoglobin POC ABG HHb (Measured) ABG Methemoglobin Jamey Test A-a O2 Difference Respiratory Index Hgb O2 Saturation Vent Mode FiO2 PEEP Pressure Support Sodium Potassium Chloride Carbon Dioxide Anion Gap BUN Creatinine Est GFR ( Amer) Est GFR (Non-Af Amer) POC Glucose (mg/dL) 143 H 180 H Random Glucose Calcium Phosphorus Magnesium Total Bilirubin AST ALT Alkaline Phosphatase Total Protein Albumin Globulin Albumin/Globulin Ratio Levetiracetam 10.5 05/24/18 05/24/18 05/24/18 05:23 05:45 06:20 WBC RBC Hgb Hct MCV MCH MCHC RDW Plt Count MPV Neut % (Auto) Lymph % (Auto) [place] % (Auto) Eos % (Auto) Baso % (Auto) Neut # (Auto) Lymph # (Auto) [place] # (Auto) Eos # (Auto) Baso # (Auto) Puncture Site R brac pCO2 40 pO2 97 HCO3 27.1 ABG pH 7.44 ABG Total CO2 28.4 H ABG O2 Saturation 99.3 H ABG Base Excess 2.8 ABG Hemoglobin 10.5 L ABG Carboxyhemoglobin 1.6 H POC ABG HHb (Measured) 0.7 ABG Methemoglobin 0.9 Jamey Test Na A-a O2 Difference 138.0 Respiratory Index 1.4 Hgb O2 Saturation 96.8 Vent Mode Cpap FiO2 40.0 PEEP 5 Pressure Support 12 Sodium 152 H Potassium 3.9 Chloride 114 H Carbon Dioxide 28 Anion Gap 14 BUN 26 H Creatinine 1.0 Est GFR ( Amer) > 60 Est GFR (Non-Af Amer) > 60 POC Glucose (mg/dL) 175 H Random Glucose 178 H Calcium 8.5 L Phosphorus 3.3 Magnesium 2.0 Total Bilirubin 0.4 AST 16 L ALT 15 L D Alkaline Phosphatase 82 Total Protein 6.2 L Albumin 2.9 L Globulin 3.3 Albumin/Globulin Ratio 0.9 L Levetiracetam 05/24/18 05/24/18 06:21 11:56 WBC 7.2 RBC 3.40 L Hgb 10.4 L Hct 31.6 L MCV 92.9 MCH 30.5 MCHC 32.8 L RDW 13.8 Plt Count 174 MPV 11.8 H Neut % (Auto) 58.6 Lymph % (Auto) 31.8 [place] % (Auto) 6.7 Eos % (Auto) 2.5 Baso % (Auto) 0.4 Neut # (Auto) 4.3 Lymph # (Auto) 2.3 [place] # (Auto) 0.5 Eos # (Auto) 0.2 Baso # (Auto) 0.0 Puncture Site pCO2 pO2 HCO3 ABG pH ABG Total CO2 ABG O2 Saturation ABG Base Excess ABG Hemoglobin ABG Carboxyhemoglobin POC ABG HHb (Measured) ABG Methemoglobin Jamey Test A-a O2 Difference Respiratory Index Hgb O2 Saturation Vent Mode FiO2 PEEP Pressure Support Sodium Potassium Chloride Carbon Dioxide Anion Gap BUN Creatinine Est GFR ( Amer) Est GFR (Non-Af Amer) POC Glucose (mg/dL) 259 H Random Glucose Calcium Phosphorus Magnesium Total Bilirubin AST ALT Alkaline Phosphatase Total Protein Albumin Globulin Albumin/Globulin Ratio Levetiracetam Fingerstick Blood Sugar Results: 175 Review of Systems - Review of Systems Systems not reviewed;Unavailable: Altered Mental Status Critical Care Progress Note - Ventilator Checklist PUD Prophalyxis: Yes DVT Prophylaxis: Yes - Vent Settings MODE:: CPAP - Prophylaxis GI Prophylaxis GI: PPI - Prophylaxis DVT Prophylaxis DVT: Lovenox Assessment/Plan - Assessment and Plan (Free Text) Assessment: 68 year old male with PMHx of IDDM, HTN, CAD s/p CABg, 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 Patient was admitted to ICU after having NUT FORMER called on floor which subsequently turned into Code Blue. Patient ROSC after being down for 5 minutes. Neurology - 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 However, unsure about baseline mental status. - Head CT 05/21 shows no acute findings - Currently on low dose precedex. Ativan prn for agitation - Seizure prophylaxis: Keppra 500 mg GT q12, Valproate 500 mg GT q12 Cardiology - Hx of CAD with CABG - Continue Aspirin, Coreg - Troponins on admission were negative - Pending arterial duplex LE Pulmonology - On admission, pt was noted to have increased trach secretions and concern for aspiration . - Sputum and blood cultures negative - Currently on CPAP trial-stable, ween off PRVCas tolerated - Continue Abx: Amikacin and vanco - Continue duoneb 3 ml q6 GI - PEG tube in place. Abd x ray done on admission was normal and tube feedings were restarted. - Continue Glucerna with goal rate of 55 cc - urinary catheter in place - Continue Flomax Renal - BUN/Cr: 08/12 - Continue to monitor function ID - Patient has recurrent fevers with negative blood cultures. - Concern for aspiration pneumonia. On day 5 of vanco. Starting amikacin 750mg x1 - will begin diflucan 200mg IVPB today followed by 100mg/day x5 days - Negative procal - Negative blood and sputum and urine cultures - ID, Dr. Garcia is consulted Psych - on low dose precedex and ativan prn Derm - Necrotic skin changes noted on B/L LE as well as stage 3 ulcer on left halux - Will check wound cultures for left halux ulcer - Wound care consulted - Continue multipodus boots and position changes q2h - Will check arterial duplex in LE when off PRVC - Continue zinc sulfate multivit and vitamin c - Will consult podiatry Prophylaxis - GI: protonix - DVT: Lovenox - Multipodus boot Case discussed with attending, Dr. Leroy - Date & Time Date: 05/24/18 Time: 12:50 <Michaelle Leroy - Last Filed: 05/26/18 09:37> CCU Objective - Vital Signs / Intake & Output Vital Signs (Last 4 hours): Vital Signs Temp Pulse Resp BP Pulse Ox 05/26/18 09:29 122/47 L 05/26/18 09:00 77 16 05/26/18 08:02 75 17 122/47 L 100 05/26/18 08:00 97.5 F L 75 19 100 05/26/18 07:00 73 14 05/26/18 06:04 78 39 H 147/62 Intake and Output (Last 8hrs): Intake & Output 05/25/18 05/26/18 05/26/18 22:59 06:59 14:59 Intake Total 914.4 940 165 Output Total 210 500 Balance 704.4 440 165 Weight 160 lb Intake: IV 7 Intake, IV Amount 127.4 100 Left Antecubital 0 Left Wrist 127.4 100 Oral 250 Tube Feeding 440 440 165 Other 90 400 Output: Urine 210 500 Condom 160 500 Urethral (Stanley) 50 Other: # Voids Condom 0 # Bowel Movements 0 1 - Medications Active Medications: Active Medications Generic Name Dose Route Start Last Admin Trade Name Freq PRN Reason Stop Dose Admin Albuterol/Ipratropium 3 ml 05/23/18 14:00 05/26/18 08:28 Duoneb 3 Mg/0.5 Mg (3 Ml) Ud INH 3 ml RQ6 SHINE Administration Aspirin 81 mg 05/19/18 10:00 05/26/18 09:30 Aspirin Chewable GT 81 mg DAILY SHINE Administration Carvedilol 12.5 mg 05/18/18 18:45 05/26/18 09:29 Coreg GT 12.5 mg BID SHINE Administration Enoxaparin Sodium 40 mg 05/19/18 10:00 05/26/18 09:29 Lovenox SC 40 mg DAILY SHINE Administration Ferrous Sulfate 300 mg 05/19/18 10:00 05/26/18 09:30 Feosol Liq PO 300 mg DAILY SHINE Administration Haloperidol 2 mg 05/25/18 14:00 05/26/18 05:50 Haldol PO 2 mg Q8 SHINE Administration Aztreonam 1 gm/ Sodium 100 mls @ 100 mls/hr 05/22/18 23:30 05/25/18 22:35 Chloride IVPB 100 mls/hr Q12H SHINE Administration Protocol Daptomycin 420 mg/ Sodium 100 mls @ 100 mls/hr 05/25/18 21:30 05/25/18 22:37 Chloride IV 05/30/18 21:31 100 mls/hr Q24H SHINE Administration Insulin Aspart 0 unit 05/24/18 00:00 05/26/18 05:41 Novolog SC Not Given Q6 [facility] Protocol Insulin Detemir 20 unit 05/26/18 08:51 Levemir SC Q12 SHINE Levetiracetam 500 mg 05/18/18 18:45 05/26/18 05:46 Keppra GT 500 mg Q12H SHINE Administration Lorazepam 1 mg 05/22/18 18:29 05/26/18 03:54 Ativan IVP 1 mg Q6H PRN Administration Agitation Losartan Potassium 50 mg 05/21/18 18:00 05/26/18 09:30 Cozaar PEG 50 mg BID SHINE Administration Multivitamins/Vitamin C 5 ml 05/19/18 10:00 05/25/18 10:50 Multi-Delyn Liquid GT 5 ml DAILY SHINE Administration Pantoprazole Sodium 40 mg 05/24/18 22:03 05/26/18 09:29 Protonix Susp PEG 40 mg 1000 SHINE Administration Quetiapine Fumarate 25 mg 05/26/18 10:00 Seroquel PO DAILY SHINE Tamsulosin HCl 0.4 mg 05/19/18 10:00 05/26/18 09:29 Flomax PEG 0.4 mg DAILY SHINE Administration Valproate Sodium 750 mg 05/24/18 10:01 05/25/18 22:06 Depakene Oral Soln GT 750 mg Q12H SHINE Administration - Patient Studies Lab Studies: Microbiology Studies 05/22/18 03:07 Blood Culture - Preliminary Blood NO GROWTH AFTER 4 DAYS 05/22/18 03:07 Blood Culture - Preliminary Blood NO GROWTH AFTER 4 DAYS 05/24/18 11:23 Gram Stain - Final Leg - Left Wound Culture - Preliminary Staphylococcus Aureus Lab Studies 05/26/18 05/26/18 05/26/18 Range/Units 06:14 06:14 05:56 WBC 7.1 (4.8-10.8) K/uL RBC 3.32 L (4.40-5.90) Mil/uL Hgb 10.0 L (12.0-18.0) g/dL Hct 30.8 L (35.0-51.0) % MCV 92.8 (80.0-94.0) fL MCH 30.1 (27.0-31.0) pg MCHC 32.4 L (33.0-37.0) g/dL RDW 13.7 (11.5-14.5) % Plt Count 147 (130-400) K/uL MPV 11.8 H (7.2-11.7) fL Puncture Site pCO2 (35-45) mm/Hg pO2 (80-100) mm/Hg HCO3 (21-28) mmol/L ABG pH (7.35-7.45) ABG Total CO2 (22-28) mmol/L ABG O2 Saturation (95-98) % ABG Base Excess (-2.0-3.0) mmol/L Jamey Test ABG Potassium (3.6-5.2) mmol/L A-a O2 Difference mm/Hg Respiratory Index Sodium 149 H (132-148) mmol/l Chloride 112 H (98-107) mmol/L Glucose (75-110) mg/dl Lactate (0.7-2.1) mmol/L Vent Mode FiO2 % Pressure Support CPAP Potassium 3.6 (3.6-5.2) mmol/L Carbon Dioxide 28 (22-30) mmol/L Anion Gap 12 (10-20) BUN 22 H (9-20) mg/dL Creatinine 0.8 (0.8-1.5) mg/dL Est GFR ( Amer) > 60 Est GFR (Non-Af Amer) > 60 POC Glucose (mg/dL) 130 H (65-110) mg/dL Random Glucose 51 L (75-110) mg/dL Calcium 8.0 L (8.6-10.4) mg/dl Phosphorus 3.4 (2.5-4.5) mg/dL Magnesium 1.9 (1.6-2.3) mg/dL Total Bilirubin 0.2 (0.2-1.3) mg/dL AST 18 (17-59) U/L ALT 12 L (21-72) U/L Alkaline Phosphatase 75 (38-126) U/L Total Protein 5.7 L (6.3-8.3) g/dL Albumin 2.6 L (3.5-5.0) g/dL Globulin 3.1 (2.2-3.9) gm/dL Albumin/Globulin Ratio 0.9 L (1.0-2.1) Arterial Blood Potassium (3.6-5.2) mmol/L 05/26/18 05/26/18 05/26/18 Range/Units 05:27 05:24 05:23 WBC (4.8-10.8) K/uL RBC (4.40-5.90) Mil/uL Hgb (12.0-18.0) g/dL Hct (35.0-51.0) % MCV (80.0-94.0) fL MCH (27.0-31.0) pg MCHC (33.0-37.0) g/dL RDW (11.5-14.5) % Plt Count (130-400) K/uL MPV (7.2-11.7) fL Puncture Site Rb pCO2 40 (35-45) mm/Hg pO2 87 (80-100) mm/Hg HCO3 28.2 H (21-28) mmol/L ABG pH 7.46 H (7.35-7.45) ABG Total CO2 29.6 H (22-28) mmol/L ABG O2 Saturation 98.7 H (95-98) % ABG Base Excess 4.2 H (-2.0-3.0) mmol/L Jamey Test Na ABG Potassium 3.6 (3.6-5.2) mmol/L A-a O2 Difference 148.0 mm/Hg Respiratory Index 1.7 Sodium 146.0 (132-148) mmol/l Chloride 115.0 H (98-107) mmol/L Glucose 211 H (75-110) mg/dl Lactate 1.5 (0.7-2.1) mmol/L Vent Mode Cpap FiO2 40.0 % Pressure Support 12 CPAP 5 Potassium (3.6-5.2) mmol/L Carbon Dioxide (22-30) mmol/L Anion Gap (10-20) BUN (9-20) mg/dL Creatinine (0.8-1.5) mg/dL Est GFR ( Amer) Est GFR (Non-Af Amer) POC Glucose (mg/dL) 57 L 58 L (65-110) mg/dL Random Glucose (75-110) mg/dL Calcium (8.6-10.4) mg/dl Phosphorus (2.5-4.5) mg/dL Magnesium (1.6-2.3) mg/dL Total Bilirubin (0.2-1.3) mg/dL AST (17-59) U/L ALT (21-72) U/L Alkaline Phosphatase (38-126) U/L Total Protein (6.3-8.3) g/dL Albumin (3.5-5.0) g/dL Globulin (2.2-3.9) gm/dL Albumin/Globulin Ratio (1.0-2.1) Arterial Blood Potassium 3.6 (3.6-5.2) mmol/L 05/25/18 05/25/18 05/25/18 Range/Units 23:30 18:23 11:23 WBC (4.8-10.8) K/uL RBC (4.40-5.90) Mil/uL Hgb (12.0-18.0) g/dL Hct (35.0-51.0) % MCV (80.0-94.0) fL MCH (27.0-31.0) pg MCHC (33.0-37.0) g/dL RDW (11.5-14.5) % Plt Count (130-400) K/uL MPV (7.2-11.7) fL Puncture Site pCO2 (35-45) mm/Hg pO2 (80-100) mm/Hg HCO3 (21-28) mmol/L ABG pH (7.35-7.45) ABG Total CO2 (22-28) mmol/L ABG O2 Saturation (95-98) % ABG Base Excess (-2.0-3.0) mmol/L Jamey Test ABG Potassium (3.6-5.2) mmol/L A-a O2 Difference mm/Hg Respiratory Index Sodium (132-148) mmol/l Chloride (98-107) mmol/L Glucose (75-110) mg/dl Lactate (0.7-2.1) mmol/L Vent Mode FiO2 % Pressure Support CPAP Potassium (3.6-5.2) mmol/L Carbon Dioxide (22-30) mmol/L Anion Gap (10-20) BUN (9-20) mg/dL Creatinine (0.8-1.5) mg/dL Est GFR ( Amer) Est GFR (Non-Af Amer) POC Glucose (mg/dL) 97 126 H 193 H (65-110) mg/dL Random Glucose (75-110) mg/dL Calcium (8.6-10.4) mg/dl Phosphorus (2.5-4.5) mg/dL Magnesium (1.6-2.3) mg/dL Total Bilirubin (0.2-1.3) mg/dL AST (17-59) U/L ALT (21-72) U/L Alkaline Phosphatase (38-126) U/L Total Protein (6.3-8.3) g/dL Albumin (3.5-5.0) g/dL Globulin (2.2-3.9) gm/dL Albumin/Globulin Ratio (1.0-2.1) Arterial Blood Potassium (3.6-5.2) mmol/L Laboratory Results - last 24 hr 05/25/18 05/25/18 05/25/18 11:23 18:23 23:30 WBC RBC Hgb Hct MCV MCH MCHC RDW Plt Count MPV Puncture Site pCO2 pO2 HCO3 ABG pH ABG Total CO2 ABG O2 Saturation ABG Base Excess Jamey Test ABG Potassium A-a O2 Difference Respiratory Index Sodium Chloride Glucose Lactate Vent Mode FiO2 Pressure Support CPAP Potassium Carbon Dioxide Anion Gap BUN Creatinine Est GFR ( Amer) Est GFR (Non-Af Amer) POC Glucose (mg/dL) 193 H 126 H 97 Random Glucose Calcium Phosphorus Magnesium Total Bilirubin AST ALT Alkaline Phosphatase Total Protein Albumin Globulin Albumin/Globulin Ratio Arterial Blood Potassium 05/26/18 05/26/18 05/26/18 05:23 05:24 05:27 WBC RBC Hgb Hct MCV MCH MCHC RDW Plt Count MPV Puncture Site Rb pCO2 40 pO2 87 HCO3 28.2 H ABG pH 7.46 H ABG Total CO2 29.6 H ABG O2 Saturation 98.7 H ABG Base Excess 4.2 H Jamey Test Na ABG Potassium 3.6 A-a O2 Difference 148.0 Respiratory Index 1.7 Sodium 146.0 Chloride 115.0 H Glucose 211 H Lactate 1.5 Vent Mode Cpap FiO2 40.0 Pressure Support 12 CPAP 5 Potassium Carbon Dioxide Anion Gap BUN Creatinine Est GFR ( Amer) Est GFR (Non-Af Amer) POC Glucose (mg/dL) 58 L 57 L Random Glucose Calcium Phosphorus Magnesium Total Bilirubin AST ALT Alkaline Phosphatase Total Protein Albumin Globulin Albumin/Globulin Ratio Arterial Blood Potassium 3.6 05/26/18 05/26/18 05/26/18 05:56 06:14 06:14 WBC 7.1 RBC 3.32 L Hgb 10.0 L Hct 30.8 L MCV 92.8 MCH 30.1 MCHC 32.4 L RDW 13.7 Plt Count 147 MPV 11.8 H Puncture Site pCO2 pO2 HCO3 ABG pH ABG Total CO2 ABG O2 Saturation ABG Base Excess Jamey Test ABG Potassium A-a O2 Difference Respiratory Index Sodium 149 H Chloride 112 H Glucose Lactate Vent Mode FiO2 Pressure Support CPAP Potassium 3.6 Carbon Dioxide 28 Anion Gap 12 BUN 22 H Creatinine 0.8 Est GFR ( Amer) > 60 Est GFR (Non-Af Amer) > 60 POC Glucose (mg/dL) 130 H Random Glucose 51 L Calcium 8.0 L Phosphorus 3.4 Magnesium 1.9 Total Bilirubin 0.2 AST 18 ALT 12 L Alkaline Phosphatase 75 Total Protein 5.7 L Albumin 2.6 L Globulin 3.1 Albumin/Globulin Ratio 0.9 L Arterial Blood Potassium Assessment/Plan - Assessment and Plan (Free Text) Assessment: Patient seen and examined at bedside. Above resident note reviewed and verified. Patient s/p trach/peg. Not on pressors. Vitals remain stable -continue treatment as per ID -currently in ICU for precedex being used for excessive agitation. Patient remains non-verbal. cannot follow simple commands. Patient has delirium. -Delirium with impulse disroder: would consider checking keppra level, and valporic level, increase valproic acid, titrate off precedex. -as per nursing patient "flings legs all the bed and on the side" -will require 1:1 -patient oriented in [place]. -continue to monitor -d/w nursing
[2018-05-24 16:57] LABS: OXYCODONE SCREEN negative
--- NOTE | 2018-05-24 17:06 | CP.PCM.CON ---
History of Present Illness - History of Present Illness History of Present Illness: Podiatry Consult Note: Dr. Diaz 68 year old male patient with PMHx of IDDM, HTN, CAD was seen and evaluated at bedside in ICU for right 2nd digit wound and left lateral malleoli wound. Patient is non-responsive at the time of the visit and was not able to obtain proper history. Does not appear in acute distress. Review of Systems - Constitutional Constitutional: As Per HPI Past Patient History - Infectious Disease Hx of Infectious Diseases: None - Past Medical History & Family History Past Medical History?: Yes - Past Social History Smoking Status: Never Smoked - CARDIAC Hx Circulatory Problems: Yes Hx Hypercholesterolemia: Yes Hx Hypertension: Yes Hx Peripheral Vascular Disease: Yes - PULMONARY Hx Chronic Obstructive Pulmonary Disease (COPD): Yes - NEUROLOGICAL HX Cerebrovascular Accident: Yes - HEENT Hx HEENT Problems: Yes Hx Cataracts: Yes (bilateral cat ext with iol) - RENAL Hx Chronic Kidney Disease: No - ENDOCRINE/METABOLIC Hx Diabetes Mellitus Type 2: Yes - HEMATOLOGICAL/ONCOLOGICAL Hx Blood Disorders: No - INTEGUMENTARY Hx Dermatological Problems: Yes Other/Comment: small ulcers both great toes. bilateral lower ext scratches ( scabs), discolored brownish looking. - MUSCULOSKELETAL/RHEUMATOLOGICAL Hx Falls: No - GASTROINTESTINAL Hx Gastrointestinal Disorders: Yes Other/Comment: Peg tube feeder. - GENITOURINARY/GYNECOLOGICAL Hx Genitourinary Disorders: No - PSYCHIATRIC Hx Substance Use: No - SURGICAL HISTORY Hx Coronary Artery Bypass Graft: Yes - ANESTHESIA Hx Anesthesia: Yes Hx Anesthesia Reactions: No Hx Malignant Hyperthermia: No Meds Allergies/Adverse Reactions: Allergies Allergy/AdvReac Type Severity Reaction Status Date / Time No Known Allergies Allergy Verified 05/17/18 17:43 - Medications Medications: Current Medications Albuterol/Ipratropium (Duoneb 3 Mg/0.5 Mg (3 Ml) Ud) 3 ml INH RQ6 [facility] Last Admin: 05/24/18 13:14 Dose: 3 ml Ascorbic Acid (Vitamin C 250 Mg Tab) 250 mg GT DAILY [facility] Last Admin: 05/24/18 14:24 Dose: 250 mg Aspirin (Aspirin Chewable) 81 mg GT DAILY [facility] Last Admin: 05/24/18 10:26 Dose: 81 mg Carvedilol (Coreg) 12.5 mg GT BID [facility] Last Admin: 05/24/18 10:25 Dose: 12.5 mg Enoxaparin Sodium (Lovenox) 40 mg SC DAILY [facility] Last Admin: 05/24/18 10:26 Dose: 40 mg Ferrous Sulfate (Feosol Liq) 300 mg PO DAILY [facility] Last Admin: 05/24/18 10:25 Dose: 300 mg Dexmedetomidine HCl 200 mcg/ (Sodium Chloride) 50 mls @ 3.4 mls/hr IV TITR PRN ; Protocol; 0.2 MCG/KG/HR PRN Reason: Sedation Last Admin: 05/24/18 01:00 Dose: 0.5 mcg/kg/hr, 8.5 mls/hr Fluconazole 100 mg/ (Miscellaneous) 50 mls @ 100 mls/hr IVPB DAILY [facility] PRN Reason: Protocol Stop: 05/27/18 23:59 Last Admin: 05/24/18 10:26 Dose: 100 mls/hr Aztreonam 1 gm/ Sodium (Chloride) 100 mls @ 100 mls/hr IVPB Q12H [facility] PRN Reason: Protocol Last Admin: 05/24/18 11:30 Dose: 100 mls/hr Insulin Aspart (Novolog) 0 unit SC Q6 [facility] PRN Reason: Protocol Last Admin: 05/24/18 12:00 Dose: 6 units Insulin Detemir (Levemir) 30 unit SC Q12 [facility] Last Admin: 05/24/18 10:31 Dose: 30 units Levetiracetam (Keppra) 500 mg GT Q12H [facility] Last Admin: 05/24/18 05:49 Dose: 500 mg Lorazepam (Ativan) 1 mg IVP Q6H PRN PRN Reason: Agitation Last Admin: 05/23/18 15:17 Dose: 1 mg Losartan Potassium (Cozaar) 50 mg PEG BID [facility] Last Admin: 05/24/18 10:26 Dose: 50 mg Multivitamins/Vitamin C (Multi-Delyn Liquid) 5 ml GT DAILY [facility] Last Admin: 05/24/18 10:25 Dose: 5 ml Pantoprazole Sodium (Protonix Susp) 40 mg PEG 1000 [facility] Last Admin: 05/24/18 10:25 Dose: 40 mg Tamsulosin HCl (Flomax) 0.4 mg PEG DAILY [facility] Last Admin: 05/24/18 10:26 Dose: 0.4 mg Valproate Sodium (Depakene Oral Soln) 750 mg GT Q12H [facility] Last Admin: 05/24/18 10:31 Dose: 750 mg Zinc Sulfate (Zinc Sulfate 220 Mg Cap) 220 mg GT DAILY [facility] Last Admin: 05/24/18 10:25 Dose: 220 mg Physical Exam - Constitutional Appears: Well, Non-toxic, No Acute Distress - Extremities Exam Additional comments: Bilateral LE exam VASC: DP/PT pulses are palpable 1/4, Cap refill time: < 3 sec to all digits, Temp gradient: warm to cool from proximal to distal, no pitting or non-pitting edema noted DERM: Hyperpigmented epidermal lysis with wound at the dorsum of the 2nd digit at the level of PIPJ, no active drainage, no malodor, no purulence, no tunneling , no tracking, no agnes-wound erythema, no clinical suspicion of active infection , Wound measuring approx 1 cm x 1 cm x 0.3 cm noted superior to lateral malleolus, wound bed appears mainly fibrotic with no grannular tissue, no active drainage, no mal-odor, no tunneling, no tracking, no purulence, no clinical suspicion of active infection NEURO: Protective sensation grossly diminished ORTHO: no pain on palpation of the wound site - Neurological Exam Neurological exam: Alert, Oriented x3 - Psychiatric Exam Psychiatric exam: Normal Affect, Normal Mood Results - Vital Signs Recent Vital Signs: Last Vital Signs Temp 98.7 F 05/24/18 12:00 Pulse 79 05/24/18 15:01 Resp 11 L 05/24/18 15:01 BP 157/59 H 05/24/18 15:01 Pulse Ox 100 05/24/18 14:01 - Labs Result Diagrams: 05/24/18 06:21 05/24/18 06:20 Labs: Laboratory Results - last 24 hr 05/18/18 05/22/18 05/23/18 21:16 09:58 17:57 WBC RBC Hgb Hct MCV MCH MCHC RDW Plt Count MPV Neut % (Auto) Lymph % (Auto) [place] % (Auto) Eos % (Auto) Baso % (Auto) Neut # (Auto) Lymph # (Auto) [place] # (Auto) Eos # (Auto) Baso # (Auto) Puncture Site pCO2 pO2 HCO3 ABG pH ABG Total CO2 ABG O2 Saturation ABG Base Excess ABG Hemoglobin ABG Carboxyhemoglobin POC ABG HHb (Measured) ABG Methemoglobin Jamey Test A-a O2 Difference Respiratory Index Hgb O2 Saturation Vent Mode FiO2 PEEP Pressure Support Sodium Potassium Chloride Carbon Dioxide Anion Gap BUN Creatinine Est GFR ( Amer) Est GFR (Non-Af Amer) POC Glucose (mg/dL) 143 H Random Glucose Calcium Phosphorus Magnesium Total Bilirubin AST ALT Alkaline Phosphatase Total Protein Albumin Globulin Albumin/Globulin Ratio Oxycodone Screen negative Ur Oxycodone Comment See note Levetiracetam 10.5 05/23/18 05/24/18 05/24/18 23:36 05:23 05:45 WBC RBC Hgb Hct MCV MCH MCHC RDW Plt Count MPV Neut % (Auto) Lymph % (Auto) [place] % (Auto) Eos % (Auto) Baso % (Auto) Neut # (Auto) Lymph # (Auto) [place] # (Auto) Eos # (Auto) Baso # (Auto) Puncture Site R brac pCO2 40 pO2 97 HCO3 27.1 ABG pH 7.44 ABG Total CO2 28.4 H ABG O2 Saturation 99.3 H ABG Base Excess 2.8 ABG Hemoglobin 10.5 L ABG Carboxyhemoglobin 1.6 H POC ABG HHb (Measured) 0.7 ABG Methemoglobin 0.9 Jamey Test Na A-a O2 Difference 138.0 Respiratory Index 1.4 Hgb O2 Saturation 96.8 Vent Mode Cpap FiO2 40.0 PEEP 5 Pressure Support 12 Sodium Potassium Chloride Carbon Dioxide Anion Gap BUN Creatinine Est GFR ( Amer) Est GFR (Non-Af Amer) POC Glucose (mg/dL) 180 H 175 H Random Glucose Calcium Phosphorus Magnesium Total Bilirubin AST ALT Alkaline Phosphatase Total Protein Albumin Globulin Albumin/Globulin Ratio Oxycodone Screen Ur Oxycodone Comment Levetiracetam 05/24/18 05/24/18 05/24/18 06:20 06:21 11:56 WBC 7.2 RBC 3.40 L Hgb 10.4 L Hct 31.6 L MCV 92.9 MCH 30.5 MCHC 32.8 L RDW 13.8 Plt Count 174 MPV 11.8 H Neut % (Auto) 58.6 Lymph % (Auto) 31.8 [place] % (Auto) 6.7 Eos % (Auto) 2.5 Baso % (Auto) 0.4 Neut # (Auto) 4.3 Lymph # (Auto) 2.3 [place] # (Auto) 0.5 Eos # (Auto) 0.2 Baso # (Auto) 0.0 Puncture Site pCO2 pO2 HCO3 ABG pH ABG Total CO2 ABG O2 Saturation ABG Base Excess ABG Hemoglobin ABG Carboxyhemoglobin POC ABG HHb (Measured) ABG Methemoglobin Jamey Test A-a O2 Difference Respiratory Index Hgb O2 Saturation Vent Mode FiO2 PEEP Pressure Support Sodium 152 H Potassium 3.9 Chloride 114 H Carbon Dioxide 28 Anion Gap 14 BUN 26 H Creatinine 1.0 Est GFR ( Amer) > 60 Est GFR (Non-Af Amer) > 60 POC Glucose (mg/dL) 259 H Random Glucose 178 H Calcium 8.5 L Phosphorus 3.3 Magnesium 2.0 Total Bilirubin 0.4 AST 16 L ALT 15 L D Alkaline Phosphatase 82 Total Protein 6.2 L Albumin 2.9 L Globulin 3.3 Albumin/Globulin Ratio 0.9 L Oxycodone Screen Ur Oxycodone Comment Levetiracetam Assessment & Plan - Assessment and Plan (Free Text) Assessment: 68 year old male patient was evaluated for bilateral LE wound Plan: Patient seen and evaluated Discussed patient in details with attending Dr. Diaz Labs, vitals and charts reviewed - afebrile, WBC @ 7.2 Wound appears non-infected and stable at this time Cleaned with saline and dressing applied using betadine, DSD Podiatry does not plan surgical intervention at this time Thank you for the podiatry consult and allowing to take part in patient care Podiatry to follow patient while in-house - Date & Time Date: 05/24/18 Time: 17:19
--- NOTE | 2018-05-24 19:09 | PN ---
DATE: 05/24/2018 SUBJECTIVE: The patient was made to sit on the chair previous morning. He is still connected to the ventilator at this time while in bed. PHYSICAL EXAMINATION: VITAL SIGNS: Blood pressure 169/64, heart rate 66, respiration 20, temperature 99.7. HEENT: Normocephalic. CHEST: Bibasilar rhonchi. HEART: S1 and S2 regular. EXTREMITIES: Atrophic changes involving the right second toe. LABORATORY DATA: Today's hemoglobin and hematocrit 10.4 and 31.6. White count and platelet count are within normal limit. SMA-7; sodium 152, potassium 3.9, chloride 114, CO2 of 28, glucose 178, BUN 26, creatinine 1. Today's chest x-ray report, no interval acute pathology noted. Current lung volumes more shallow than before. ASSESSMENT: 1. Respiratory failure. 2. History of cerebrovascular accident and status post and gastrostomy feeding tube. 3. Systemic hypertension. 4. Improved sinus bradycardia. 5. Hypernatremia. RECOMMENDATIONS: Continue current aspirin 81 mg once a day, 1 gm intravenously every 12 hours, Coreg 12.5 twice a day, Cozaar 50 mg twice a day, albuterol inhaler every 6 hours p.r.n., Feosol liquid 300 mg daily, fluconazole 100 mg intravenously daily, Lovenox 40 mg subcutaneously daily, and Protonix 40 mg daily via gastrostomy tube. Luke Gibbs MD
--- NOTE | 2018-05-24 20:40 | CP.PCM.PN ---
Subjective - Date & Time of Evaluation Date of Evaluation: 05/24/18 Time of Evaluation: 20:40 - Subjective Subjective: SPIKING TEMP TMAX 103 -100.6 Patient was SEDATED THIS AM DUE TO AGITATION PEG, trach and urinary catheter in place. SEEN BY PODIATRY FOR B/L LE NECROTIC DRY ULCER RT 2ND DIGIT AND LT LATERAL MALLEOLAR ULCER ROS unobtainable due to mental status /SEDATION Objective - Vital Signs/Intake and Output Vital Signs (last 24 hours): Temp Pulse Resp BP Pulse Ox 99.7 F H 70 29 H 152/64 H 100 05/24/18 16:00 05/24/18 19:01 05/24/18 19:01 05/24/18 19:01 05/24/18 19:01 Intake and Output: 05/24/18 05/25/18 18:59 06:59 Intake Total 1277.4 63.5 Output Total 830 140 Balance 447.4 -76.5 - Medications Medications: Current Medications Albuterol/Ipratropium (Duoneb 3 Mg/0.5 Mg (3 Ml) Ud) 3 ml INH RQ6 [facility] Last Admin: 05/24/18 19:47 Dose: 3 ml Ascorbic Acid (Vitamin C 250 Mg Tab) 250 mg GT DAILY [facility] Last Admin: 05/24/18 14:24 Dose: 250 mg Aspirin (Aspirin Chewable) 81 mg GT DAILY [facility] Last Admin: 05/24/18 10:26 Dose: 81 mg Carvedilol (Coreg) 12.5 mg GT BID [facility] Last Admin: 05/24/18 17:20 Dose: 12.5 mg Enoxaparin Sodium (Lovenox) 40 mg SC DAILY [facility] Last Admin: 05/24/18 10:26 Dose: 40 mg Ferrous Sulfate (Feosol Liq) 300 mg PO DAILY [facility] Last Admin: 05/24/18 10:25 Dose: 300 mg Dexmedetomidine HCl 200 mcg/ (Sodium Chloride) 50 mls @ 3.4 mls/hr IV TITR PRN ; Protocol; 0.2 MCG/KG/HR PRN Reason: Sedation Last Admin: 05/24/18 17:38 Dose: 0.5 mcg/kg/hr, 8.5 mls/hr Fluconazole 100 mg/ (Miscellaneous) 50 mls @ 100 mls/hr IVPB DAILY [facility] PRN Reason: Protocol Stop: 05/27/18 23:59 Last Admin: 05/24/18 10:26 Dose: 100 mls/hr Aztreonam 1 gm/ Sodium (Chloride) 100 mls @ 100 mls/hr IVPB Q12H [facility] PRN Reason: Protocol Last Admin: 05/24/18 11:30 Dose: 100 mls/hr Insulin Aspart (Novolog) 0 unit SC Q6 [facility] PRN Reason: Protocol Last Admin: 05/24/18 17:40 Dose: Not Given Insulin Detemir (Levemir) 30 unit SC Q12 [facility] Last Admin: 05/24/18 10:31 Dose: 30 units Levetiracetam (Keppra) 500 mg GT Q12H [facility] Last Admin: 05/24/18 17:46 Dose: 500 mg Lorazepam (Ativan) 1 mg IVP Q6H PRN PRN Reason: Agitation Last Admin: 05/23/18 15:17 Dose: 1 mg Losartan Potassium (Cozaar) 50 mg PEG BID [facility] Last Admin: 05/24/18 17:20 Dose: 50 mg Multivitamins/Vitamin C (Multi-Delyn Liquid) 5 ml GT DAILY [facility] Last Admin: 05/24/18 10:25 Dose: 5 ml Pantoprazole Sodium (Protonix Susp) 40 mg PEG 1000 [facility] Last Admin: 05/24/18 10:25 Dose: 40 mg Tamsulosin HCl (Flomax) 0.4 mg PEG DAILY [facility] Last Admin: 05/24/18 10:26 Dose: 0.4 mg Valproate Sodium (Depakene Oral Soln) 750 mg GT Q12H [facility] Last Admin: 05/24/18 10:31 Dose: 750 mg Zinc Sulfate (Zinc Sulfate 220 Mg Cap) 220 mg GT DAILY [facility] Last Admin: 05/24/18 10:25 Dose: 220 mg - Labs Labs: 05/24/18 06:21 05/24/18 06:20 - Constitutional Appears: No Acute Distress - Head Exam Head Exam: NORMAL INSPECTION Additional comments: TRACH IN PLACE - Eye Exam Eye Exam: PERRL - ENT Exam ENT Exam: Mucous Membranes Dry - Neck Exam Neck Exam: Normal Inspection - Respiratory Exam Respiratory Exam: Decreased Breath Sounds, NORMAL BREATHING PATTERN (TRACH IN PLACE.) - Cardiovascular Exam Cardiovascular Exam: REGULAR RHYTHM, +S1, +S2 - GI/Abdominal Exam GI & Abdominal Exam: Soft, Normal Bowel Sounds (GT IN PLACE) - Extremities Exam Extremities Exam: Pedal Edema. absent: Calf Tenderness Additional comments: B/L LE NECROTIC ULCERS NOTED -DRY - Neurological Exam Neurological Exam: Altered - Skin Skin Exam: Warm Assessment and Plan (1) Fever Assessment & Plan: SOURCE OF FEVER NOT CLEAR ? DRUG FEVER ALL CULTURES -VE TO DATE . LT LEG WOUND CULTURE -P CONTINUE IV AZACTAM 1GM IVPB Q 12HRLY DC IV VANCOMYCIN 1GM IVPB [id number] DAILY AND OBSERVE FEVER CURVE. DC IV FLUCONAZOLE. Status: Acute (2) UTI (urinary tract infection) Assessment & Plan: URINE CULTURE 05/22/18 -VE DC IV FLUCONAZOLE Status: Acute (3) Altered mental status Assessment & Plan: CT HEAD REVIEWED. -OLD LACUNAR INFARCTION/ AND BILATERAL BASAL GANGLIA. SINUS MUCOSAL DISEASE-NOTED DECREASE SEDATION TO EVALUATE MENTAL STATUS . Status: Acute (4) Hyperglycemia Status: Acute (5) Malfunction of percutaneous endoscopic gastrostomy (PEG) tube Status: Acute (6) Diabetes Status: Acute (7) Status post tracheostomy Status: Acute
[2018-05-25] MEDS: (Novolog) Insulin Aspart, Recombinant 100 u/ml 10 ml vial SC SCH ×4 (00:16→18:31)
[2018-05-25] MEDS: Albuterol-Ipratrop 3 mg / 0.5 (3 ml) UD INH SCH ×4 (01:50→19:42)
[2018-05-25] MEDS: Dexmedetomidine Hydrochloride 200 MCG in Sodium Chloride 0.9% 48 ML IV PRN ×2 (04:20→09:50)
[2018-05-25 06:36] LABS: BASO % 0.3 % (0.0-2.0); EOS # 0.2 K/uL (0.0-0.7); HEMOGLOBIN 10.5 g/dL (12.0-18.0); LYMPH % 25.6 % (20.0-40.0); MEAN CELL VOLUME 92.6 fL (80.0-94.0); MEAN CORPUSCULAR HEMOGLOBIN 30.7 pg (27.0-31.0); MEAN CORPUSCULAR HGB CONC 33.2 g/dL (33.0-37.0); MONO # 0.5 K/uL (0.0-0.8); MONO % 5.8 % (0.0-10.0); NEUT # 5.2 K/uL (1.8-7.0); NEUT % 65.3 % (50.0-75.0); RBC 3.41 Mil/uL (4.40-5.90); RED CELL DISTRIBUTION WIDTH 13.7 % (11.5-14.5); WHITE BLOOD COUNT 7.9 K/uL (4.8-10.8)
[2018-05-25] MEDS: levETIRAcetam 100 mg/ml (5ml) Oral Syringe GT SCH ×2 (06:45→18:00)
[2018-05-25 06:53] LABS: ALB/GLOB RATIO 0.9 (1.0-2.1); ALT/SGPT 10 U/L (21-72); AST/SGOT 20 U/L (17-59); BLOOD UREA NITROGEN 22 mg/dL (9-20); CALCIUM 8.7 mg/dl (8.6-10.4); GFR AFRICAN-AMERICAN > 60; GFR NON-AFRICAN AMERICAN > 60
[2018-05-25] MEDS ORDERED: Dexmedetomidine Hydrochloride 200 MCG in Sodium Chloride 0.9% 48 ML IV PRN (10:12)
[2018-05-25] MEDS: Aztreonam 1 GM in Sodium Chloride 0.9% 100 ML IVPB SCH ×2 (10:46→22:35)
[2018-05-25] MEDS: Fluconazole IV 200mg/100 ml NS 100 MG in Premixed IV 1 EA IVPB SCH (10:48)
[2018-05-25] MEDS: Valproic Acid 250 mg/5 ml UD Cup GT SCH ×2 (10:49→22:06)
[2018-05-25] MEDS: Enoxaparin 40 mg Syringe SC SCH (10:50)
[2018-05-25] MEDS: Ferrous Sulfate 300 mg/5 mL Liq UD PO SCH (10:50)
[2018-05-25] MEDS: Multiple Vitamins Oral Solution GT SCH (10:50)
[2018-05-25] MEDS: Insulin Detemir 100 units/ml Vial (Levemir) SC SCH ×2 (10:51→22:05)
[2018-05-25] MEDS: Pantoprazole 40 mg Susp UD PEG SCH (10:53)
--- NOTE | 2018-05-25 13:44 | CP.CCUPN ---
<SongShahla - Last Filed: 05/25/18 16:15> CCU Subjective - Physician Review Subjective (Free Text): 05/22/18 14:18 Pt seen and examined at bedside. No reports overnight. Trach and PEG in place. Minimal trach secretions this morning. Currently on CPAP. PEG tube in place , feedings active. Weaning off Precedex and initiating haldol and ativan as tolerated. Stanley in place draining sid urine. ROS unobtainable due to AMS. CCU Objective - Vital Signs / Intake & Output Vital Signs (Last 4 hours): Vital Signs Temp Pulse Resp BP Pulse Ox 05/25/18 13:01 66 22 162/63 H 99 05/25/18 13:00 66 22 05/25/18 12:01 77 18 148/69 05/25/18 12:00 98.9 F 77 22 98 05/25/18 11:01 67 22 154/75 H 05/25/18 11:00 68 22 05/25/18 10:50 148/61 05/25/18 10:01 66 15 148/61 05/25/18 10:00 66 15 Intake and Output (Last 8hrs): Intake & Output 05/24/18 05/25/18 05/25/18 22:59 06:59 14:59 Intake Total 858.0 558.0 1129.6 Output Total 660 640 310 Balance 198.0 -82.0 819.6 Intake: IV 100 50 50 Intake, IV Amount 68.0 68.0 264.6 Left Antecubital 200 Left Wrist 68.0 68.0 64.6 Oral 430 Tube Feeding 690 440 385 Output: Urine 660 640 310 Urethral (Stanley) 660 640 310 Other: # Bowel Movements 0 0 1 - Physical Exam Head: Positive for: Atraumatic, Normocephalic Pupils: Positive for: PERRL, Other (corneal reflex intact B/L) Mouth: Positive for: Moist Mucous Membranes Respiratory/Chest: Positive for: Clear to Auscultation. Negative for: Respiratory Distress, Wheezes, Rales, Rhonchi Cardiovascular: Positive for: Regular Rate and Rhythm, Normal S1, S2 Abdomen: Positive for: Normal Bowel Sounds. Negative for: Tenderness, Distention, Peritoneal Signs Upper Extremity: Positive for: Normal Inspection. Negative for: Edema Lower Extremity: Positive for: Other (decrease DP pulses B/L; necrotic skin changes noted R>L toes ). Negative for: Edema Neurological: Positive for: Other (not reacting to painful stimuli, corneal reflex intact, PERRLA ). Negative for: GCS=15, CN II-XII Intact, Speech Normal Skin: Positive for: Other (pressure ulcers stage 1 noted on B/L heels. necrotic skin changes noted on right toes and left toes ) Psychiatric: Positive for: Agitated. Negative for: Alert - Medications Active Medications: Active Medications Generic Name Dose Route Start Last Admin Trade Name Freq PRN Reason Stop Dose Admin Albuterol/Ipratropium 3 ml 05/23/18 14:00 05/25/18 13:12 Duoneb 3 Mg/0.5 Mg (3 Ml) Ud INH 3 ml RQ6 SHINE Administration Aspirin 81 mg 05/19/18 10:00 05/25/18 10:49 Aspirin Chewable GT 81 mg DAILY SHINE Administration Carvedilol 12.5 mg 05/18/18 18:45 05/25/18 10:50 Coreg GT 12.5 mg BID SHINE Administration Enoxaparin Sodium 40 mg 05/19/18 10:00 05/25/18 10:50 Lovenox SC 40 mg DAILY SHINE Administration Ferrous Sulfate 300 mg 05/19/18 10:00 05/25/18 10:50 Feosol Liq PO 300 mg DAILY SHINE Administration Haloperidol 2 mg 05/25/18 14:00 Haldol PO Q8 SHINE Fluconazole 100 mg/ 50 mls @ 100 mls/hr 05/23/18 10:00 05/25/18 10:48 Miscellaneous IVPB 05/27/18 23:59 100 mls/hr DAILY SHINE Administration Protocol Aztreonam 1 gm/ Sodium 100 mls @ 100 mls/hr 05/22/18 23:30 05/25/18 10:46 Chloride IVPB 100 mls/hr Q12H SHINE Administration Protocol Dexmedetomidine HCl 200 mcg/ 50 mls @ 3.5 mls/hr 05/25/18 10:12 Sodium Chloride IV TITR PRN Agitation Protocol 0.2 MCG/KG/HR Insulin Aspart 0 unit 05/24/18 00:00 05/25/18 12:23 Novolog SC 2 units Q6 SHINE Administration Protocol Insulin Detemir 30 unit 05/18/18 22:00 05/25/18 10:51 Levemir SC 30 units Q12 SHINE Administration Levetiracetam 500 mg 05/18/18 18:45 05/25/18 06:45 Keppra GT 500 mg Q12H SHINE Administration Lorazepam 1 mg 05/22/18 18:29 05/23/18 15:17 Ativan IVP 1 mg Q6H PRN Administration Agitation Losartan Potassium 50 mg 05/21/18 18:00 05/25/18 10:50 Cozaar PEG 50 mg BID SHINE Administration Multivitamins/Vitamin C 5 ml 05/19/18 10:00 05/25/18 10:50 Multi-Delyn Liquid GT 5 ml DAILY SHINE Administration Pantoprazole Sodium 40 mg 05/24/18 22:03 05/25/18 10:53 Protonix Susp PEG 40 mg 1000 SHINE Administration Tamsulosin HCl 0.4 mg 05/19/18 10:00 05/25/18 10:49 Flomax PEG 0.4 mg DAILY SHINE Administration Valproate Sodium 750 mg 05/24/18 10:01 05/25/18 10:49 Depakene Oral Soln GT 750 mg Q12H SHINE Administration - Patient Studies Lab Studies: Microbiology Studies 05/24/18 11:23 Gram Stain - Final Leg - Left Wound Culture - Preliminary Staphylococcus Aureus 05/22/18 03:07 Blood Culture - Preliminary Blood NO GROWTH AFTER 3 DAYS 05/22/18 03:07 Blood Culture - Preliminary Blood NO GROWTH AFTER 3 DAYS 05/22/18 03:07 Gram Stain - Final Sputum Induced Sputum Culture - Final NORMAL ORAL HALEY Lab Studies 05/25/18 05/25/18 05/25/18 Range/Units 11:23 06:26 06:25 WBC 7.9 (4.8-10.8) K/uL RBC 3.41 L (4.40-5.90) Mil/uL Hgb 10.5 L (12.0-18.0) g/dL Hct 31.6 L (35.0-51.0) % MCV 92.6 (80.0-94.0) fL MCH 30.7 (27.0-31.0) pg MCHC 33.2 (33.0-37.0) g/dL RDW 13.7 (11.5-14.5) % Plt Count 171 (130-400) K/uL MPV 12.0 H (7.2-11.7) fL Neut % (Auto) 65.3 (50.0-75.0) % Lymph % (Auto) 25.6 (20.0-40.0) % [place] % (Auto) 5.8 (0.0-10.0) % Eos % (Auto) 3.0 (0.0-4.0) % Baso % (Auto) 0.3 (0.0-2.0) % Neut # (Auto) 5.2 (1.8-7.0) K/uL Lymph # (Auto) 2.0 (1.0-4.3) K/uL [place] # (Auto) 0.5 (0.0-0.8) K/uL Eos # (Auto) 0.2 (0.0-0.7) K/uL Baso # (Auto) 0.0 (0.0-0.2) K/uL Sodium (132-148) mmol/L Potassium (3.6-5.2) mmol/L Chloride (98-107) mmol/L Carbon Dioxide (22-30) mmol/L Anion Gap (10-20) BUN (9-20) mg/dL Creatinine (0.8-1.5) mg/dL Est GFR ( Amer) Est GFR (Non-Af Amer) POC Glucose (mg/dL) 193 H (65-110) mg/dL Random Glucose (75-110) mg/dL Calcium (8.6-10.4) mg/dl Phosphorus (2.5-4.5) mg/dL Magnesium (1.6-2.3) mg/dL Total Bilirubin (0.2-1.3) mg/dL AST (17-59) U/L ALT (21-72) U/L Alkaline Phosphatase (38-126) U/L Total Protein (6.3-8.3) g/dL Albumin (3.5-5.0) g/dL Globulin (2.2-3.9) gm/dL Albumin/Globulin Ratio (1.0-2.1) Oxycodone Screen Ur Oxycodone Comment Valproic Acid 45.6 L (50.0-100.0) ug/mL 05/25/18 05/25/18 05/24/18 Range/Units 06:25 06:00 23:56 WBC (4.8-10.8) K/uL RBC (4.40-5.90) Mil/uL Hgb (12.0-18.0) g/dL Hct (35.0-51.0) % MCV (80.0-94.0) fL MCH (27.0-31.0) pg MCHC (33.0-37.0) g/dL RDW (11.5-14.5) % Plt Count (130-400) K/uL MPV (7.2-11.7) fL Neut % (Auto) (50.0-75.0) % Lymph % (Auto) (20.0-40.0) % [place] % (Auto) (0.0-10.0) % Eos % (Auto) (0.0-4.0) % Baso % (Auto) (0.0-2.0) % Neut # (Auto) (1.8-7.0) K/uL Lymph # (Auto) (1.0-4.3) K/uL [place] # (Auto) (0.0-0.8) K/uL Eos # (Auto) (0.0-0.7) K/uL Baso # (Auto) (0.0-0.2) K/uL Sodium 151 H (132-148) mmol/L Potassium 4.2 (3.6-5.2) mmol/L Chloride 113 H (98-107) mmol/L Carbon Dioxide 28 (22-30) mmol/L Anion Gap 15 (10-20) BUN 22 H (9-20) mg/dL Creatinine 0.9 (0.8-1.5) mg/dL Est GFR ( Amer) > 60 Est GFR (Non-Af Amer) > 60 POC Glucose (mg/dL) 95 92 (65-110) mg/dL Random Glucose 96 (75-110) mg/dL Calcium 8.7 (8.6-10.4) mg/dl Phosphorus 3.3 (2.5-4.5) mg/dL Magnesium 2.1 (1.6-2.3) mg/dL Total Bilirubin 0.4 (0.2-1.3) mg/dL AST 20 (17-59) U/L ALT 10 L D (21-72) U/L Alkaline Phosphatase 80 (38-126) U/L Total Protein 6.3 (6.3-8.3) g/dL Albumin 3.0 L (3.5-5.0) g/dL Globulin 3.3 (2.2-3.9) gm/dL Albumin/Globulin Ratio 0.9 L (1.0-2.1) Oxycodone Screen Ur Oxycodone Comment Valproic Acid (50.0-100.0) ug/mL 05/24/18 05/22/18 Range/Units 17:39 09:58 WBC (4.8-10.8) K/uL RBC (4.40-5.90) Mil/uL Hgb (12.0-18.0) g/dL Hct (35.0-51.0) % MCV (80.0-94.0) fL MCH (27.0-31.0) pg MCHC (33.0-37.0) g/dL RDW (11.5-14.5) % Plt Count (130-400) K/uL MPV (7.2-11.7) fL Neut % (Auto) (50.0-75.0) % Lymph % (Auto) (20.0-40.0) % [place] % (Auto) (0.0-10.0) % Eos % (Auto) (0.0-4.0) % Baso % (Auto) (0.0-2.0) % Neut # (Auto) (1.8-7.0) K/uL Lymph # (Auto) (1.0-4.3) K/uL [place] # (Auto) (0.0-0.8) K/uL Eos # (Auto) (0.0-0.7) K/uL Baso # (Auto) (0.0-0.2) K/uL Sodium (132-148) mmol/L Potassium (3.6-5.2) mmol/L Chloride (98-107) mmol/L Carbon Dioxide (22-30) mmol/L Anion Gap (10-20) BUN (9-20) mg/dL Creatinine (0.8-1.5) mg/dL Est GFR ( Amer) Est GFR (Non-Af Amer) POC Glucose (mg/dL) 124 H (65-110) mg/dL Random Glucose (75-110) mg/dL Calcium (8.6-10.4) mg/dl Phosphorus (2.5-4.5) mg/dL Magnesium (1.6-2.3) mg/dL Total Bilirubin (0.2-1.3) mg/dL AST (17-59) U/L ALT (21-72) U/L Alkaline Phosphatase (38-126) U/L Total Protein (6.3-8.3) g/dL Albumin (3.5-5.0) g/dL Globulin (2.2-3.9) gm/dL Albumin/Globulin Ratio (1.0-2.1) Oxycodone Screen negative Ur Oxycodone Comment See note Valproic Acid (50.0-100.0) ug/mL Laboratory Results - last 24 hr 05/22/18 05/24/18 05/24/18 09:58 17:39 23:56 WBC RBC Hgb Hct MCV MCH MCHC RDW Plt Count MPV Neut % (Auto) Lymph % (Auto) [place] % (Auto) Eos % (Auto) Baso % (Auto) Neut # (Auto) Lymph # (Auto) [place] # (Auto) Eos # (Auto) Baso # (Auto) Sodium Potassium Chloride Carbon Dioxide Anion Gap BUN Creatinine Est GFR ( Amer) Est GFR (Non-Af Amer) POC Glucose (mg/dL) 124 H 92 Random Glucose Calcium Phosphorus Magnesium Total Bilirubin AST ALT Alkaline Phosphatase Total Protein Albumin Globulin Albumin/Globulin Ratio Oxycodone Screen negative Ur Oxycodone Comment See note Valproic Acid 05/25/18 05/25/18 05/25/18 06:00 06:25 06:25 WBC RBC Hgb Hct MCV MCH MCHC RDW Plt Count MPV Neut % (Auto) Lymph % (Auto) [place] % (Auto) Eos % (Auto) Baso % (Auto) Neut # (Auto) Lymph # (Auto) [place] # (Auto) Eos # (Auto) Baso # (Auto) Sodium 151 H Potassium 4.2 Chloride 113 H Carbon Dioxide 28 Anion Gap 15 BUN 22 H Creatinine 0.9 Est GFR ( Amer) > 60 Est GFR (Non-Af Amer) > 60 POC Glucose (mg/dL) 95 Random Glucose 96 Calcium 8.7 Phosphorus 3.3 Magnesium 2.1 Total Bilirubin 0.4 AST 20 ALT 10 L D Alkaline Phosphatase 80 Total Protein 6.3 Albumin 3.0 L Globulin 3.3 Albumin/Globulin Ratio 0.9 L Oxycodone Screen Ur Oxycodone Comment Valproic Acid 45.6 L 05/25/18 05/25/18 06:26 11:23 WBC 7.9 RBC 3.41 L Hgb 10.5 L Hct 31.6 L MCV 92.6 MCH 30.7 MCHC 33.2 RDW 13.7 Plt Count 171 MPV 12.0 H Neut % (Auto) 65.3 Lymph % (Auto) 25.6 [place] % (Auto) 5.8 Eos % (Auto) 3.0 Baso % (Auto) 0.3 Neut # (Auto) 5.2 Lymph # (Auto) 2.0 [place] # (Auto) 0.5 Eos # (Auto) 0.2 Baso # (Auto) 0.0 Sodium Potassium Chloride Carbon Dioxide Anion Gap BUN Creatinine Est GFR ( Amer) Est GFR (Non-Af Amer) POC Glucose (mg/dL) 193 H Random Glucose Calcium Phosphorus Magnesium Total Bilirubin AST ALT Alkaline Phosphatase Total Protein Albumin Globulin Albumin/Globulin Ratio Oxycodone Screen Ur Oxycodone Comment Valproic Acid Fingerstick Blood Sugar Results: 193 Review of Systems - Review of Systems Systems not reviewed;Unavailable: Intubated Assessment/Plan - Assessment and Plan (Free Text) Assessment: Neurology - 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 However, unsure about baseline mental status. - Head CT 05/21 shows no acute findings - Currently on low dose precedex. Ativan prn for agitation - Seizure prophylaxis: Keppra 500 mg GT q12, Valproate 750 mg GT q12 Cardiology - Hx of CAD with CABG - Continue Aspirin, Coreg - Troponins on admission were negative - Pending arterial duplex LE Pulmonology - On admission, pt was noted to have increased trach secretions and concern for aspiration . - Sputum and blood cultures negative - Currently on CPAP trial-stable, wean off PRVCas tolerated - Continue Abx: aztreonam, diflucan - Continue duoneb 3 ml q6 GI - PEG tube in place. Abd x ray done on admission was normal and tube feedings were restarted. - Continue Glucerna with goal rate of 55 cc - urinary catheter in place - Continue Flomax Renal - BUN/Cr: 22/.9 - Continue to monitor function ID - Patient has recurrent fevers with negative blood cultures. - Concern for aspiration pneumonia. - will begin diflucan 100mg/day x5 days, aztreonam 1g - Negative procal - Negative blood and sputum and urine cultures - ID, Dr. Garcia is consulted Psych - on low dose precedex and ativan and haldol, continue to wean off precedex as tolerated Derm - Necrotic skin changes noted on B/L LE as well as stage 3 ulcer on left halux - left leg ulcer grew staph aureus - Wound care consulted - Continue multipodus boots and position changes q2h - Will check arterial duplex in LE when off PRVC - Continue zinc sulfate multivit and vitamin c - Will consult podiatry Prophylaxis -protonix 40mg -Lovenox 40mg -Multipodus boot <Genet Garcia - Last Filed: 05/26/18 02:39> CCU Objective - Vital Signs / Intake & Output Vital Signs (Last 4 hours): Vital Signs Temp Pulse Resp BP Pulse Ox 05/26/18 00:22 73 22 134/49 L 05/26/18 00:00 100 F H 05/25/18 23:00 72 22 100 Intake and Output (Last 8hrs): Intake & Output 05/25/18 05/25/18 05/26/18 14:59 22:59 06:59 Intake Total 1324.8 914.4 155 Output Total 340 210 Balance 984.8 704.4 155 Intake: IV 80 7 Intake, IV Amount 274.8 127.4 100 Left Antecubital 200 0 Left Wrist 74.8 127.4 100 Oral 530 250 Tube Feeding 440 440 55 Other 90 Output: Urine 340 210 Condom 160 Urethral (Stanley) 340 50 Other: # Voids Condom 0 # Bowel Movements 0 0 1 - Medications Active Medications: Active Medications Generic Name Dose Route Start Last Admin Trade Name Freq PRN Reason Stop Dose Admin Albuterol/Ipratropium 3 ml 05/23/18 14:00 05/26/18 02:04 Duoneb 3 Mg/0.5 Mg (3 Ml) Ud INH 3 ml RQ6 SHINE Administration Aspirin 81 mg 05/19/18 10:00 05/25/18 10:49 Aspirin Chewable GT 81 mg DAILY SHINE Administration Carvedilol 12.5 mg 05/18/18 18:45 05/25/18 18:00 Coreg GT 12.5 mg BID SHINE Administration Enoxaparin Sodium 40 mg 05/19/18 10:00 05/25/18 10:50 Lovenox SC 40 mg DAILY SHINE Administration Ferrous Sulfate 300 mg 05/19/18 10:00 05/25/18 10:50 Feosol Liq PO 300 mg DAILY SHINE Administration Haloperidol 2 mg 05/25/18 14:00 05/25/18 22:06 Haldol PO 2 mg Q8 SHINE Administration Fluconazole 100 mg/ 50 mls @ 100 mls/hr 05/23/18 10:00 05/25/18 10:48 Miscellaneous IVPB 05/27/18 23:59 100 mls/hr DAILY SHINE Administration Protocol Aztreonam 1 gm/ Sodium 100 mls @ 100 mls/hr 05/22/18 23:30 05/25/18 22:35 Chloride IVPB 100 mls/hr Q12H SHINE Administration Protocol Dexmedetomidine HCl 200 mcg/ 50 mls @ 3.5 mls/hr 05/25/18 10:12 05/25/18 20: 00 Sodium Chloride IV 0 mcg/kg/hr TITR PRN 0 mls/hr Agitation Titration Protocol 0.2 MCG/KG/HR Daptomycin 420 mg/ Sodium 100 mls @ 100 mls/hr 05/25/18 21:30 05/25/18 22:37 Chloride IV 05/30/18 21:31 100 mls/hr Q24H SHINE Administration Insulin Aspart 0 unit 05/24/18 00:00 05/25/18 18:31 Novolog SC Not Given Q6 SHINE Protocol Insulin Detemir 30 unit 05/18/18 22:00 05/25/18 22:05 Levemir SC 30 units Q12 SHINE Administration Levetiracetam 500 mg 05/18/18 18:45 05/25/18 18:00 Keppra GT 500 mg Q12H SHINE Administration Lorazepam 1 mg 05/22/18 18:29 05/25/18 15:21 Ativan IVP 1 mg Q6H PRN Administration Agitation Losartan Potassium 50 mg 05/21/18 18:00 05/25/18 18:00 Cozaar PEG 50 mg BID SHINE Administration Multivitamins/Vitamin C 5 ml 05/19/18 10:00 05/25/18 10:50 Multi-Delyn Liquid GT 5 ml DAILY SHINE Administration Pantoprazole Sodium 40 mg 05/24/18 22:03 05/25/18 10:53 Protonix Susp PEG 40 mg 1000 SHINE Administration Tamsulosin HCl 0.4 mg 05/19/18 10:00 05/25/18 10:49 Flomax PEG 0.4 mg DAILY SHINE Administration Valproate Sodium 750 mg 05/24/18 10:01 05/25/18 22:06 Depakene Oral Soln GT 750 mg Q12H SHINE Administration - Patient Studies Lab Studies: Microbiology Studies 05/24/18 11:23 Gram Stain - Final Leg - Left Wound Culture - Preliminary Staphylococcus Aureus 05/22/18 03:07 Blood Culture - Preliminary Blood NO GROWTH AFTER 3 DAYS 05/22/18 03:07 Blood Culture - Preliminary Blood NO GROWTH AFTER 3 DAYS Lab Studies 05/25/18 05/25/18 05/25/18 Range/Units 18:23 11:23 06:26 WBC 7.9 (4.8-10.8) K/uL RBC 3.41 L (4.40-5.90) Mil/uL Hgb 10.5 L (12.0-18.0) g/dL Hct 31.6 L (35.0-51.0) % MCV 92.6 (80.0-94.0) fL MCH 30.7 (27.0-31.0) pg MCHC 33.2 (33.0-37.0) g/dL RDW 13.7 (11.5-14.5) % Plt Count 171 (130-400) K/uL MPV 12.0 H (7.2-11.7) fL Neut % (Auto) 65.3 (50.0-75.0) % Lymph % (Auto) 25.6 (20.0-40.0) % [place] % (Auto) 5.8 (0.0-10.0) % Eos % (Auto) 3.0 (0.0-4.0) % Baso % (Auto) 0.3 (0.0-2.0) % Neut # (Auto) 5.2 (1.8-7.0) K/uL Lymph # (Auto) 2.0 (1.0-4.3) K/uL [place] # (Auto) 0.5 (0.0-0.8) K/uL Eos # (Auto) 0.2 (0.0-0.7) K/uL Baso # (Auto) 0.0 (0.0-0.2) K/uL Sodium (132-148) mmol/L Potassium (3.6-5.2) mmol/L Chloride (98-107) mmol/L Carbon Dioxide (22-30) mmol/L Anion Gap (10-20) BUN (9-20) mg/dL Creatinine (0.8-1.5) mg/dL Est GFR ( Amer) Est GFR (Non-Af Amer) POC Glucose (mg/dL) 126 H 193 H (65-110) mg/dL Random Glucose (75-110) mg/dL Calcium (8.6-10.4) mg/dl Phosphorus (2.5-4.5) mg/dL Magnesium (1.6-2.3) mg/dL Total Bilirubin (0.2-1.3) mg/dL AST (17-59) U/L ALT (21-72) U/L Alkaline Phosphatase (38-126) U/L Total Protein (6.3-8.3) g/dL Albumin (3.5-5.0) g/dL Globulin (2.2-3.9) gm/dL Albumin/Globulin Ratio (1.0-2.1) Valproic Acid (50.0-100.0) ug/mL 05/25/18 05/25/18 05/25/18 Range/Units 06:25 06:25 06:00 WBC (4.8-10.8) K/uL RBC (4.40-5.90) Mil/uL Hgb (12.0-18.0) g/dL Hct (35.0-51.0) % MCV (80.0-94.0) fL MCH (27.0-31.0) pg MCHC (33.0-37.0) g/dL RDW (11.5-14.5) % Plt Count (130-400) K/uL MPV (7.2-11.7) fL Neut % (Auto) (50.0-75.0) % Lymph % (Auto) (20.0-40.0) % [place] % (Auto) (0.0-10.0) % Eos % (Auto) (0.0-4.0) % Baso % (Auto) (0.0-2.0) % Neut # (Auto) (1.8-7.0) K/uL Lymph # (Auto) (1.0-4.3) K/uL [place] # (Auto) (0.0-0.8) K/uL Eos # (Auto) (0.0-0.7) K/uL Baso # (Auto) (0.0-0.2) K/uL Sodium 151 H (132-148) mmol/L Potassium 4.2 (3.6-5.2) mmol/L Chloride 113 H (98-107) mmol/L Carbon Dioxide 28 (22-30) mmol/L Anion Gap 15 (10-20) BUN 22 H (9-20) mg/dL Creatinine 0.9 (0.8-1.5) mg/dL Est GFR ( Amer) > 60 Est GFR (Non-Af Amer) > 60 POC Glucose (mg/dL) 95 (65-110) mg/dL Random Glucose 96 (75-110) mg/dL Calcium 8.7 (8.6-10.4) mg/dl Phosphorus 3.3 (2.5-4.5) mg/dL Magnesium 2.1 (1.6-2.3) mg/dL Total Bilirubin 0.4 (0.2-1.3) mg/dL AST 20 (17-59) U/L ALT 10 L D (21-72) U/L Alkaline Phosphatase 80 (38-126) U/L Total Protein 6.3 (6.3-8.3) g/dL Albumin 3.0 L (3.5-5.0) g/dL Globulin 3.3 (2.2-3.9) gm/dL Albumin/Globulin Ratio 0.9 L (1.0-2.1) Valproic Acid 45.6 L (50.0-100.0) ug/mL Laboratory Results - last 24 hr 05/25/18 05/25/18 05/25/18 06:00 06:25 06:25 WBC RBC Hgb Hct MCV MCH MCHC RDW Plt Count MPV Neut % (Auto) Lymph % (Auto) [place] % (Auto) Eos % (Auto) Baso % (Auto) Neut # (Auto) Lymph # (Auto) [place] # (Auto) Eos # (Auto) Baso # (Auto) Sodium 151 H Potassium 4.2 Chloride 113 H Carbon Dioxide 28 Anion Gap 15 BUN 22 H Creatinine 0.9 Est GFR ( Amer) > 60 Est GFR (Non-Af Amer) > 60 POC Glucose (mg/dL) 95 Random Glucose 96 Calcium 8.7 Phosphorus 3.3 Magnesium 2.1 Total Bilirubin 0.4 AST 20 ALT 10 L D Alkaline Phosphatase 80 Total Protein 6.3 Albumin 3.0 L Globulin 3.3 Albumin/Globulin Ratio 0.9 L Valproic Acid 45.6 L 05/25/18 05/25/18 05/25/18 06:26 11:23 18:23 WBC 7.9 RBC 3.41 L Hgb 10.5 L Hct 31.6 L MCV 92.6 MCH 30.7 MCHC 33.2 RDW 13.7 Plt Count 171 MPV 12.0 H Neut % (Auto) 65.3 Lymph % (Auto) 25.6 [place] % (Auto) 5.8 Eos % (Auto) 3.0 Baso % (Auto) 0.3 Neut # (Auto) 5.2 Lymph # (Auto) 2.0 [place] # (Auto) 0.5 Eos # (Auto) 0.2 Baso # (Auto) 0.0 Sodium Potassium Chloride Carbon Dioxide Anion Gap BUN Creatinine Est GFR ( Amer) Est GFR (Non-Af Amer) POC Glucose (mg/dL) 193 H 126 H Random Glucose Calcium Phosphorus Magnesium Total Bilirubin AST ALT Alkaline Phosphatase Total Protein Albumin Globulin Albumin/Globulin Ratio Valproic Acid Assessment/Plan (1) Fever Current Visit: Yes Status: Acute (2) UTI (urinary tract infection) Current Visit: Yes Status: Acute (3) Altered mental status Current Visit: No Status: Acute (4) Hyperglycemia Current Visit: No Status: Acute (5) Malfunction of percutaneous endoscopic gastrostomy (PEG) tube Current Visit: Yes Status: Acute (6) Diabetes Current Visit: No Status: Acute (7) Status post tracheostomy Current Visit: No Status: Acute Comment: on IV antibiotics as per infectious disease/ patient still spiking temperature, follow up culture and sensitivity, rule out endocarditis, bone scan to rule out osteomyelitis Continue sedation follow-up lactate level Free water for hypernatremia <Michaelle Leroy M - Last Filed: 05/26/18 09:40> CCU Objective - Vital Signs / Intake & Output Vital Signs (Last 4 hours): Vital Signs Temp Pulse Resp BP Pulse Ox 05/26/18 09:29 122/47 L 05/26/18 09:00 77 16 05/26/18 08:02 75 17 122/47 L 100 05/26/18 08:00 97.5 F L 75 19 100 05/26/18 07:00 73 14 05/26/18 06:04 78 39 H 147/62 Intake and Output (Last 8hrs): Intake & Output 05/25/18 05/26/18 05/26/18 22:59 06:59 14:59 Intake Total 914.4 940 165 Output Total 210 500 Balance 704.4 440 165 Weight 160 lb Intake: IV 7 Intake, IV Amount 127.4 100 Left Antecubital 0 Left Wrist 127.4 100 Oral 250 Tube Feeding 440 440 165 Other 90 400 Output: Urine 210 500 Condom 160 500 Urethral (Stanley) 50 Other: # Voids Condom 0 # Bowel Movements 0 1 - Medications Active Medications: Active Medications Generic Name Dose Route Start Last Admin Trade Name Freq PRN Reason Stop Dose Admin Albuterol/Ipratropium 3 ml 05/23/18 14:00 05/26/18 08:28 Duoneb 3 Mg/0.5 Mg (3 Ml) Ud INH 3 ml RQ6 [facility] Administration Aspirin 81 mg 05/19/18 10:00 05/26/18 09:30 Aspirin Chewable GT 81 mg DAILY [facility] Administration Carvedilol 12.5 mg 05/18/18 18:45 05/26/18 09:29 Coreg GT 12.5 mg BID [facility] Administration Enoxaparin Sodium 40 mg 05/19/18 10:00 05/26/18 09:29 Lovenox SC 40 mg DAILY [facility] Administration Ferrous Sulfate 300 mg 05/19/18 10:00 05/26/18 09:30 Feosol Liq PO 300 mg DAILY [facility] Administration Haloperidol 2 mg 05/25/18 14:00 05/26/18 05:50 Haldol PO 2 mg Q8 [facility] Administration Aztreonam 1 gm/ Sodium 100 mls @ 100 mls/hr 05/22/18 23:30 05/25/18 22:35 Chloride IVPB 100 mls/hr Q12H [facility] Administration Protocol Daptomycin 420 mg/ Sodium 100 mls @ 100 mls/hr 05/25/18 21:30 05/25/18 22:37 Chloride IV 05/30/18 21:31 100 mls/hr Q24H [facility] Administration Insulin Aspart 0 unit 05/24/18 00:00 05/26/18 05:41 Novolog SC Not Given Q6 [facility] Protocol Insulin Detemir 20 unit 05/26/18 08:51 Levemir SC Q12 [facility] Levetiracetam 500 mg 05/18/18 18:45 05/26/18 05:46 Keppra GT 500 mg Q12H [facility] Administration Lorazepam 1 mg 05/22/18 18:29 05/26/18 03:54 Ativan IVP 1 mg Q6H PRN Administration Agitation Losartan Potassium 50 mg 05/21/18 18:00 05/26/18 09:30 Cozaar PEG 50 mg BID [facility] Administration Multivitamins/Vitamin C 5 ml 05/19/18 10:00 05/26/18 09:35 Multi-Delyn Liquid GT 5 ml DAILY [facility] Administration Pantoprazole Sodium 40 mg 05/24/18 22:03 05/26/18 09:29 Protonix Susp PEG 40 mg 1000 [facility] Administration Quetiapine Fumarate 25 mg 05/26/18 10:00 Seroquel PO DAILY [facility] Tamsulosin HCl 0.4 mg 05/19/18 10:00 05/26/18 09:29 Flomax PEG 0.4 mg DAILY [facility] Administration Valproate Sodium 750 mg 05/24/18 10:01 05/26/18 09:35 Depakene Oral Soln GT 750 mg Q12H [facility] Administration - Patient Studies Lab Studies: Microbiology Studies 05/22/18 03:07 Blood Culture - Preliminary Blood NO GROWTH AFTER 4 DAYS 05/22/18 03:07 Blood Culture - Preliminary Blood NO GROWTH AFTER 4 DAYS 05/24/18 11:23 Gram Stain - Final Leg - Left Wound Culture - Preliminary Staphylococcus Aureus Lab Studies 05/26/18 05/26/18 05/26/18 Range/Units 06:14 06:14 05:56 WBC 7.1 (4.8-10.8) K/uL RBC 3.32 L (4.40-5.90) Mil/uL Hgb 10.0 L (12.0-18.0) g/dL Hct 30.8 L (35.0-51.0) % MCV 92.8 (80.0-94.0) fL MCH 30.1 (27.0-31.0) pg MCHC 32.4 L (33.0-37.0) g/dL RDW 13.7 (11.5-14.5) % Plt Count 147 (130-400) K/uL MPV 11.8 H (7.2-11.7) fL Puncture Site pCO2 (35-45) mm/Hg pO2 (80-100) mm/Hg HCO3 (21-28) mmol/L ABG pH (7.35-7.45) ABG Total CO2 (22-28) mmol/L ABG O2 Saturation (95-98) % ABG Base Excess (-2.0-3.0) mmol/L Jamey Test ABG Potassium (3.6-5.2) mmol/L A-a O2 Difference mm/Hg Respiratory Index Sodium 149 H (132-148) mmol/l Chloride 112 H (98-107) mmol/L Glucose (75-110) mg/dl Lactate (0.7-2.1) mmol/L Vent Mode FiO2 % Pressure Support CPAP Potassium 3.6 (3.6-5.2) mmol/L Carbon Dioxide 28 (22-30) mmol/L Anion Gap 12 (10-20) BUN 22 H (9-20) mg/dL Creatinine 0.8 (0.8-1.5) mg/dL Est GFR ( Amer) > 60 Est GFR (Non-Af Amer) > 60 POC Glucose (mg/dL) 130 H (65-110) mg/dL Random Glucose 51 L (75-110) mg/dL Calcium 8.0 L (8.6-10.4) mg/dl Phosphorus 3.4 (2.5-4.5) mg/dL Magnesium 1.9 (1.6-2.3) mg/dL Total Bilirubin 0.2 (0.2-1.3) mg/dL AST 18 (17-59) U/L ALT 12 L (21-72) U/L Alkaline Phosphatase 75 (38-126) U/L Total Protein 5.7 L (6.3-8.3) g/dL Albumin 2.6 L (3.5-5.0) g/dL Globulin 3.1 (2.2-3.9) gm/dL Albumin/Globulin Ratio 0.9 L (1.0-2.1) Arterial Blood Potassium (3.6-5.2) mmol/L 05/26/18 05/26/18 05/26/18 Range/Units 05:27 05:24 05:23 WBC (4.8-10.8) K/uL RBC (4.40-5.90) Mil/uL Hgb (12.0-18.0) g/dL Hct (35.0-51.0) % MCV (80.0-94.0) fL MCH (27.0-31.0) pg MCHC (33.0-37.0) g/dL RDW (11.5-14.5) % Plt Count (130-400) K/uL MPV (7.2-11.7) fL Puncture Site Rb pCO2 40 (35-45) mm/Hg pO2 87 (80-100) mm/Hg HCO3 28.2 H (21-28) mmol/L ABG pH 7.46 H (7.35-7.45) ABG Total CO2 29.6 H (22-28) mmol/L ABG O2 Saturation 98.7 H (95-98) % ABG Base Excess 4.2 H (-2.0-3.0) mmol/L Jamey Test Na ABG Potassium 3.6 (3.6-5.2) mmol/L A-a O2 Difference 148.0 mm/Hg Respiratory Index 1.7 Sodium 146.0 (132-148) mmol/l Chloride 115.0 H (98-107) mmol/L Glucose 211 H (75-110) mg/dl Lactate 1.5 (0.7-2.1) mmol/L Vent Mode Cpap FiO2 40.0 % Pressure Support 12 CPAP 5 Potassium (3.6-5.2) mmol/L Carbon Dioxide (22-30) mmol/L Anion Gap (10-20) BUN (9-20) mg/dL Creatinine (0.8-1.5) mg/dL Est GFR ( Amer) Est GFR (Non-Af Amer) POC Glucose (mg/dL) 57 L 58 L (65-110) mg/dL Random Glucose (75-110) mg/dL Calcium (8.6-10.4) mg/dl Phosphorus (2.5-4.5) mg/dL Magnesium (1.6-2.3) mg/dL Total Bilirubin (0.2-1.3) mg/dL AST (17-59) U/L ALT (21-72) U/L Alkaline Phosphatase (38-126) U/L Total Protein (6.3-8.3) g/dL Albumin (3.5-5.0) g/dL Globulin (2.2-3.9) gm/dL Albumin/Globulin Ratio (1.0-2.1) Arterial Blood Potassium 3.6 (3.6-5.2) mmol/L 05/25/18 05/25/18 05/25/18 Range/Units 23:30 18:23 11:23 WBC (4.8-10.8) K/uL RBC (4.40-5.90) Mil/uL Hgb (12.0-18.0) g/dL Hct (35.0-51.0) % MCV (80.0-94.0) fL MCH (27.0-31.0) pg MCHC (33.0-37.0) g/dL RDW (11.5-14.5) % Plt Count (130-400) K/uL MPV (7.2-11.7) fL Puncture Site pCO2 (35-45) mm/Hg pO2 (80-100) mm/Hg HCO3 (21-28) mmol/L ABG pH (7.35-7.45) ABG Total CO2 (22-28) mmol/L ABG O2 Saturation (95-98) % ABG Base Excess (-2.0-3.0) mmol/L Jamey Test ABG Potassium (3.6-5.2) mmol/L A-a O2 Difference mm/Hg Respiratory Index Sodium (132-148) mmol/l Chloride (98-107) mmol/L Glucose (75-110) mg/dl Lactate (0.7-2.1) mmol/L Vent Mode FiO2 % Pressure Support CPAP Potassium (3.6-5.2) mmol/L Carbon Dioxide (22-30) mmol/L Anion Gap (10-20) BUN (9-20) mg/dL Creatinine (0.8-1.5) mg/dL Est GFR ( Amer) Est GFR (Non-Af Amer) POC Glucose (mg/dL) 97 126 H 193 H (65-110) mg/dL Random Glucose (75-110) mg/dL Calcium (8.6-10.4) mg/dl Phosphorus (2.5-4.5) mg/dL Magnesium (1.6-2.3) mg/dL Total Bilirubin (0.2-1.3) mg/dL AST (17-59) U/L ALT (21-72) U/L Alkaline Phosphatase (38-126) U/L Total Protein (6.3-8.3) g/dL Albumin (3.5-5.0) g/dL Globulin (2.2-3.9) gm/dL Albumin/Globulin Ratio (1.0-2.1) Arterial Blood Potassium (3.6-5.2) mmol/L Laboratory Results - last 24 hr 05/25/18 05/25/18 05/25/18 11:23 18:23 23:30 WBC RBC Hgb Hct MCV MCH MCHC RDW Plt Count MPV Puncture Site pCO2 pO2 HCO3 ABG pH ABG Total CO2 ABG O2 Saturation ABG Base Excess Jamey Test ABG Potassium A-a O2 Difference Respiratory Index Sodium Chloride Glucose Lactate Vent Mode FiO2 Pressure Support CPAP Potassium Carbon Dioxide Anion Gap BUN Creatinine Est GFR ( Amer) Est GFR (Non-Af Amer) POC Glucose (mg/dL) 193 H 126 H 97 Random Glucose Calcium Phosphorus Magnesium Total Bilirubin AST ALT Alkaline Phosphatase Total Protein Albumin Globulin Albumin/Globulin Ratio Arterial Blood Potassium 05/26/18 05/26/18 05/26/18 05:23 05:24 05:27 WBC RBC Hgb Hct MCV MCH MCHC RDW Plt Count MPV Puncture Site Rb pCO2 40 pO2 87 HCO3 28.2 H ABG pH 7.46 H ABG Total CO2 29.6 H ABG O2 Saturation 98.7 H ABG Base Excess 4.2 H Jamey Test Na ABG Potassium 3.6 A-a O2 Difference 148.0 Respiratory Index 1.7 Sodium 146.0 Chloride 115.0 H Glucose 211 H Lactate 1.5 Vent Mode Cpap FiO2 40.0 Pressure Support 12 CPAP 5 Potassium Carbon Dioxide Anion Gap BUN Creatinine Est GFR ( Amer) Est GFR (Non-Af Amer) POC Glucose (mg/dL) 58 L 57 L Random Glucose Calcium Phosphorus Magnesium Total Bilirubin AST ALT Alkaline Phosphatase Total Protein Albumin Globulin Albumin/Globulin Ratio Arterial Blood Potassium 3.6 05/26/18 05/26/18 05/26/18 05:56 06:14 06:14 WBC 7.1 RBC 3.32 L Hgb 10.0 L Hct 30.8 L MCV 92.8 MCH 30.1 MCHC 32.4 L RDW 13.7 Plt Count 147 MPV 11.8 H Puncture Site pCO2 pO2 HCO3 ABG pH ABG Total CO2 ABG O2 Saturation ABG Base Excess Jamey Test ABG Potassium A-a O2 Difference Respiratory Index Sodium 149 H Chloride 112 H Glucose Lactate Vent Mode FiO2 Pressure Support CPAP Potassium 3.6 Carbon Dioxide 28 Anion Gap 12 BUN 22 H Creatinine 0.8 Est GFR ( Amer) > 60 Est GFR (Non-Af Amer) > 60 POC Glucose (mg/dL) 130 H Random Glucose 51 L Calcium 8.0 L Phosphorus 3.4 Magnesium 1.9 Total Bilirubin 0.2 AST 18 ALT 12 L Alkaline Phosphatase 75 Total Protein 5.7 L Albumin 2.6 L Globulin 3.1 Albumin/Globulin Ratio 0.9 L Arterial Blood Potassium Assessment/Plan - Assessment and Plan (Free Text) Assessment: Patient seen and examined at bedside. Above resident note reviewed and verified. Patient s/p trach/peg. Not on pressors. Vitals remain stable -continue treatment as per ID -currently in ICU for precedex being used for excessive agitation (precedex decreased from 0.7 t 0.5) Patient remains non-verbal. cannot follow simple commands. Patient has delirium. -Delirium with impulse disroder: penidng keppra level/valporic level, add haldol , titrate off precedex. -as per nursing patient less agitated on lower dose of precedex -continue CPAP trials -patient oriented in indonesian. -contnue ventilator bundle -laury d/c -continue to monitor -d/w nursing - Date & Time Date: 05/25/18 Time: 19:00
--- NOTE | 2018-05-25 16:06 | CP.PCM.PN ---
Subjective - Date & Time of Evaluation Date of Evaluation: 05/25/18 Time of Evaluation: 16:03 - Subjective Subjective: Podiatry Progress note: Dr. Diaz 68 year old male was seen and evaluated at bedside in ICU for bilateral LE wounds. Patient appears to be resting comfortably in his bed in NAD. Objective - Vital Signs/Intake and Output Vital Signs (last 24 hours): Temp Pulse Resp BP Pulse Ox 98.9 F 66 22 162/63 H 99 05/25/18 12:00 05/25/18 13:01 05/25/18 13:01 05/25/18 13:01 05/25/18 13:01 Intake and Output: 05/25/18 05/25/18 06:59 18:59 Intake Total 1112.0 1159.6 Output Total 1020 310 Balance 92.0 849.6 - Medications Medications: Current Medications Albuterol/Ipratropium (Duoneb 3 Mg/0.5 Mg (3 Ml) Ud) 3 ml INH RQ6 [facility] Last Admin: 05/25/18 13:12 Dose: 3 ml Aspirin (Aspirin Chewable) 81 mg GT DAILY [facility] Last Admin: 05/25/18 10:49 Dose: 81 mg Carvedilol (Coreg) 12.5 mg GT BID [facility] Last Admin: 05/25/18 10:50 Dose: 12.5 mg Enoxaparin Sodium (Lovenox) 40 mg SC DAILY [facility] Last Admin: 05/25/18 10:50 Dose: 40 mg Ferrous Sulfate (Feosol Liq) 300 mg PO DAILY [facility] Last Admin: 05/25/18 10:50 Dose: 300 mg Haloperidol (Haldol) 2 mg PO Q8 [facility] Last Admin: 05/25/18 14:00 Dose: 2 mg Fluconazole 100 mg/ (Miscellaneous) 50 mls @ 100 mls/hr IVPB DAILY [facility] PRN Reason: Protocol Stop: 05/27/18 23:59 Last Admin: 05/25/18 10:48 Dose: 100 mls/hr Aztreonam 1 gm/ Sodium (Chloride) 100 mls @ 100 mls/hr IVPB Q12H [facility] PRN Reason: Protocol Last Admin: 05/25/18 10:46 Dose: 100 mls/hr Dexmedetomidine HCl 200 mcg/ (Sodium Chloride) 50 mls @ 3.5 mls/hr IV TITR PRN ; Protocol; 0.2 MCG/KG/HR PRN Reason: Agitation Insulin Aspart (Novolog) 0 unit SC Q6 [facility] PRN Reason: Protocol Last Admin: 05/25/18 12:23 Dose: 2 units Insulin Detemir (Levemir) 30 unit SC Q12 [facility] Last Admin: 05/25/18 10:51 Dose: 30 units Levetiracetam (Keppra) 500 mg GT Q12H [facility] Last Admin: 05/25/18 06:45 Dose: 500 mg Lorazepam (Ativan) 1 mg IVP Q6H PRN PRN Reason: Agitation Last Admin: 05/25/18 15:21 Dose: 1 mg Losartan Potassium (Cozaar) 50 mg PEG BID [facility] Last Admin: 05/25/18 10:50 Dose: 50 mg Multivitamins/Vitamin C (Multi-Delyn Liquid) 5 ml GT DAILY [facility] Last Admin: 05/25/18 10:50 Dose: 5 ml Pantoprazole Sodium (Protonix Susp) 40 mg PEG 1000 [facility] Last Admin: 05/25/18 10:53 Dose: 40 mg Tamsulosin HCl (Flomax) 0.4 mg PEG DAILY [facility] Last Admin: 05/25/18 10:49 Dose: 0.4 mg Valproate Sodium (Depakene Oral Soln) 750 mg GT Q12H [facility] Last Admin: 05/25/18 10:49 Dose: 750 mg - Labs Labs: 05/25/18 06:26 05/25/18 06:25 - Constitutional Appears: Well, Non-toxic, No Acute Distress - Extremities Exam Additional comments: Bilateral LE exam VASC: DP/PT pulses are palpable 1/4, Cap refill time: < 3 sec to all digits, Temp gradient: warm to cool from proximal to distal, no pitting or non-pitting edema noted DERM: Hyperpigmented epidermal lysis with ischemic wound at the dorsum of the 2nd digit at the level of PIPJ, no active drainage, no malodor, no purulence, no tunneling, no tracking, no agnes-wound erythema, no clinical suspicion of active infection, Wound measuring approx 1 cm x 1 cm x 0.3 cm noted superior to lateral malleolus, wound bed appears to have 50% fibrotic and 50% grannular tissue, no active drainage, no mal-odor, no tunneling, no tracking, no purulence , no clinical suspicion of active infection NEURO: Protective sensation grossly diminished ORTHO: no pain on palpation of the wound site - Neurological Exam Neurological Exam: Alert, Awake, Oriented x3 - Psychiatric Exam Psychiatric exam: Normal Affect, Normal Mood Assessment and Plan - Assessment and Plan (Free Text) Assessment: 68 year old male patient was evaluated for bilateral LE wound Plan: Patient seen and evaluated Discussed patient in details with attending Dr. Diaz Labs, vitals and charts reviewed - afebrile, WBC @ 7.9 Wound appears non-infected and stable at this time Cleaned with saline and dressing applied using betadine, DSD Podiatry does not plan surgical intervention at this time Podiatry to follow patient while in-house
--- NOTE | 2018-05-25 20:34 | CP.PCM.PN ---
Subjective - Date & Time of Evaluation Date of Evaluation: 05/25/18 Time of Evaluation: 20:34 - Subjective Subjective: AFEBRILE OPENS EYES TO STIMULI, TRACH SECRETIONS MINIMAL, ON CPAP THIS A.M. PEG FEEDINGS ONGOING Barber IN PLACE.. BILATERAL FOOT DRESSING IN PLACE. ROS; NA bECAUSE OF ALTERED MENTAL STATUS. Objective - Vital Signs/Intake and Output Vital Signs (last 24 hours): Temp Pulse Resp BP Pulse Ox 97.6 F 61 15 126/48 L 100 05/25/18 16:00 05/25/18 19:01 05/25/18 19:01 05/25/18 19:01 05/25/18 19:01 Intake and Output: 05/25/18 05/26/18 18:59 06:59 Intake Total 1818.7 58.5 Output Total 550 Balance 1268.7 58.5 - Medications Medications: Current Medications Albuterol/Ipratropium (Duoneb 3 Mg/0.5 Mg (3 Ml) Ud) 3 ml INH RQ6 [facility] Last Admin: 05/25/18 19:42 Dose: 3 ml Aspirin (Aspirin Chewable) 81 mg GT DAILY [facility] Last Admin: 05/25/18 10:49 Dose: 81 mg Carvedilol (Coreg) 12.5 mg GT BID [facility] Last Admin: 05/25/18 18:00 Dose: 12.5 mg Enoxaparin Sodium (Lovenox) 40 mg SC DAILY [facility] Last Admin: 05/25/18 10:50 Dose: 40 mg Ferrous Sulfate (Feosol Liq) 300 mg PO DAILY [facility] Last Admin: 05/25/18 10:50 Dose: 300 mg Haloperidol (Haldol) 2 mg PO Q8 [facility] Last Admin: 05/25/18 14:00 Dose: 2 mg Fluconazole 100 mg/ (Miscellaneous) 50 mls @ 100 mls/hr IVPB DAILY [facility] PRN Reason: Protocol Stop: 05/27/18 23:59 Last Admin: 05/25/18 10:48 Dose: 100 mls/hr Aztreonam 1 gm/ Sodium (Chloride) 100 mls @ 100 mls/hr IVPB Q12H [facility] PRN Reason: Protocol Last Admin: 05/25/18 10:46 Dose: 100 mls/hr Dexmedetomidine HCl 200 mcg/ (Sodium Chloride) 50 mls @ 3.5 mls/hr IV TITR PRN ; Protocol; 0.2 MCG/KG/HR PRN Reason: Agitation Last Admin: 05/25/18 18:02 Dose: 0.2 mcg/kg/hr, 3.5 mls/hr Insulin Aspart (Novolog) 0 unit SC Q6 [facility] PRN Reason: Protocol Last Admin: 05/25/18 18:31 Dose: Not Given Insulin Detemir (Levemir) 30 unit SC Q12 [facility] Last Admin: 05/25/18 10:51 Dose: 30 units Levetiracetam (Keppra) 500 mg GT Q12H [facility] Last Admin: 05/25/18 18:00 Dose: 500 mg Lorazepam (Ativan) 1 mg IVP Q6H PRN PRN Reason: Agitation Last Admin: 05/25/18 15:21 Dose: 1 mg Losartan Potassium (Cozaar) 50 mg PEG BID [facility] Last Admin: 05/25/18 18:00 Dose: 50 mg Multivitamins/Vitamin C (Multi-Delyn Liquid) 5 ml GT DAILY [facility] Last Admin: 05/25/18 10:50 Dose: 5 ml Pantoprazole Sodium (Protonix Susp) 40 mg PEG 1000 [facility] Last Admin: 05/25/18 10:53 Dose: 40 mg Tamsulosin HCl (Flomax) 0.4 mg PEG DAILY [facility] Last Admin: 05/25/18 10:49 Dose: 0.4 mg Valproate Sodium (Depakene Oral Soln) 750 mg GT Q12H [facility] Last Admin: 05/25/18 10:49 Dose: 750 mg - Labs Labs: 05/25/18 06:26 05/25/18 06:25 - Constitutional Appears: No Acute Distress, Confused - Head Exam Head Exam: NORMAL INSPECTION - Eye Exam Eye Exam: PERRL - ENT Exam ENT Exam: Mucous Membranes Moist - Neck Exam Neck Exam: Normal Inspection - Cardiovascular Exam Cardiovascular Exam: REGULAR RHYTHM, +S1, +S2 - GI/Abdominal Exam GI & Abdominal Exam: Soft, Normal Bowel Sounds (peg IN PLACE.) - Extremities Exam Extremities Exam: absent: Calf Tenderness, Pedal Edema (BILATERAL FEET IN DRESSING.) - Neurological Exam Neurological Exam: Altered - Skin Skin Exam: Normal Color, Warm Assessment and Plan (1) Fever Assessment & Plan: BLOOD CULTURES 05/22/18 -VE TO DATE. LT LEG WOUND CULTURE -STAPH AUREUS. START iv DAPTOMYCIN 6 MG/KG iv PIGGYBACK EVERY 24 HOURLY 05/25/18 CONTINUE IV AZACTAM 1GM IVPB Q 12HRLY. OFF IV VANCOMYCIN ( ? DRUG FEVER ) Status: Acute (2) UTI (urinary tract infection) Assessment & Plan: URINE CULTURES 05/22/18 -VE GROWTH DC IV FLUCONAZOLE. Status: Acute (3) Altered mental status Assessment & Plan: PATIENT BEING WEANED OFF pRECEDEX oN LOW-DOSE aTIVAN/hALDOL FOR AGITATION Status: Acute (4) Hyperglycemia Status: Acute (5) Malfunction of percutaneous endoscopic gastrostomy (PEG) tube Assessment & Plan: PEG IN PLACE AND FUNCTIONING Status: Acute (6) Diabetes Status: Acute (7) Status post tracheostomy Status: Acute
[2018-05-25] MEDS ORDERED: DAPTOmycin 500 mg Inj (Cubicin) IV SCH (20:45)
--- NOTE | 2018-05-25 22:52 | PN ---
DATE: 05/25/2018 SUBJECTIVE: The patient is currently back on CPAP. No reported hypertension. PHYSICAL EXAMINATION: VITAL SIGNS: Blood pressure 160/63, heart rate 66, respirations 22, temperature 98.9. HEENT: Normocephalic. CHEST: Bibasilar rhonchi. HEART: S1 and S2 regular. EXTREMITIES: No pedal edema. LABORATORY DATA: Hemoglobin and hematocrit 10.5 and 31.6. White count and platelet count are within normal limits. SMA-7: Sodium 151, potassium 4.2, chloride 115, CO2 28, glucose 96. BUN 22, creatinine 0.5. ASSESSMENT: 1. Respiratory failure. 2. History of cerebrovascular accident, status post gastrostomy and tracheostomy tube. 3. Hypertension. 4. Hypernatremia. 5. Mild renal azotemia. RECOMMENDATIONS: Continue aspirin 81 mg once a day, IV ____ at 1 gm every 12 hours. Continue Coreg 12.5 mg twice a day via gastrostomy tube, Cozaar 50 mg once a day, Depakene oral solution 750 mg twice a day, Feosol liquid 300 mg daily, fluconazole 100 mg intravenously daily, Keppra 500 mg twice a day via gastrostomy tube, subcutaneous Lovenox mg once a day. Luke Gibbs MD
--- NOTE | 2018-05-25 23:08 | CP.PCM.PN ---
Objective - Vital Signs/Intake and Output Vital Signs (last 24 hours): Temp Pulse Resp BP Pulse Ox 97.6 F 61 15 126/48 L 100 05/25/18 16:00 05/25/18 19:01 05/25/18 19:01 05/25/18 19:01 05/25/18 19:01 Intake and Output: 05/25/18 05/26/18 18:59 06:59 Intake Total 1818.7 58.5 Output Total 550 Balance 1268.7 58.5 - Medications Medications: Current Medications Albuterol/Ipratropium (Duoneb 3 Mg/0.5 Mg (3 Ml) Ud) 3 ml INH RQ6 [facility] Last Admin: 05/25/18 19:42 Dose: 3 ml Aspirin (Aspirin Chewable) 81 mg GT DAILY [facility] Last Admin: 05/25/18 10:49 Dose: 81 mg Carvedilol (Coreg) 12.5 mg GT BID [facility] Last Admin: 05/25/18 18:00 Dose: 12.5 mg Enoxaparin Sodium (Lovenox) 40 mg SC DAILY [facility] Last Admin: 05/25/18 10:50 Dose: 40 mg Ferrous Sulfate (Feosol Liq) 300 mg PO DAILY [facility] Last Admin: 05/25/18 10:50 Dose: 300 mg Haloperidol (Haldol) 2 mg PO Q8 [facility] Last Admin: 05/25/18 22:06 Dose: 2 mg Fluconazole 100 mg/ (Miscellaneous) 50 mls @ 100 mls/hr IVPB DAILY [facility] PRN Reason: Protocol Stop: 05/27/18 23:59 Last Admin: 05/25/18 10:48 Dose: 100 mls/hr Aztreonam 1 gm/ Sodium (Chloride) 100 mls @ 100 mls/hr IVPB Q12H [facility] PRN Reason: Protocol Last Admin: 05/25/18 22:35 Dose: 100 mls/hr Dexmedetomidine HCl 200 mcg/ (Sodium Chloride) 50 mls @ 3.5 mls/hr IV TITR PRN ; Protocol; 0.2 MCG/KG/HR PRN Reason: Agitation Last Admin: 05/25/18 18:02 Dose: 0.2 mcg/kg/hr, 3.5 mls/hr Daptomycin 420 mg/ Sodium (Chloride) 100 mls @ 100 mls/hr IV Q24H [facility] Stop: 05/30/18 21:31 Last Admin: 05/25/18 22:37 Dose: 100 mls/hr Insulin Aspart (Novolog) 0 unit SC Q6 [facility] PRN Reason: Protocol Last Admin: 05/25/18 18:31 Dose: Not Given Insulin Detemir (Levemir) 30 unit SC Q12 [facility] Last Admin: 05/25/18 22:05 Dose: 30 units Levetiracetam (Keppra) 500 mg GT Q12H [facility] Last Admin: 05/25/18 18:00 Dose: 500 mg Lorazepam (Ativan) 1 mg IVP Q6H PRN PRN Reason: Agitation Last Admin: 05/25/18 15:21 Dose: 1 mg Losartan Potassium (Cozaar) 50 mg PEG BID [facility] Last Admin: 05/25/18 18:00 Dose: 50 mg Multivitamins/Vitamin C (Multi-Delyn Liquid) 5 ml GT DAILY [facility] Last Admin: 05/25/18 10:50 Dose: 5 ml Pantoprazole Sodium (Protonix Susp) 40 mg PEG 1000 [facility] Last Admin: 05/25/18 10:53 Dose: 40 mg Tamsulosin HCl (Flomax) 0.4 mg PEG DAILY [facility] Last Admin: 05/25/18 10:49 Dose: 0.4 mg Valproate Sodium (Depakene Oral Soln) 750 mg GT Q12H [facility] Last Admin: 05/25/18 22:06 Dose: 750 mg - Labs Labs: 05/25/18 06:26 05/25/18 06:25 Assessment and Plan (1) CKD (chronic kidney disease) Status: Acute (2) COPD (chronic obstructive pulmonary disease) Status: Acute (3) Dehydration Status: Acute (4) Diabetes Status: Acute (5) Ischemic encephalopathy Status: Acute (6) Sepsis Status: Acute (7) Status post tracheostomy Status: Acute
[2018-05-26] MEDS: Albuterol-Ipratrop 3 mg / 0.5 (3 ml) UD INH SCH ×4 (02:04→21:00)
[2018-05-26] MEDS ORDERED: Dextrose 50% SYRINGE Inj (50 ml) IV STA (05:30)
[2018-05-26] MEDS ORDERED: Dextrose 50% SYRINGE Inj (50 ml) ONE (05:35)
[2018-05-26] MEDS: (Novolog) Insulin Aspart, Recombinant 100 u/ml 10 ml vial SC SCH ×4 (05:41→18:32)
[2018-05-26 05:44] LABS: ARTERIAL BLOOD GAS HCO3 28.2 mmol/L (21-28); ARTERIAL BLOOD GAS O2 SAT 98.7 % (95-98); ARTERIAL BLOOD GAS PCO2 40 mm/Hg (35-45); ARTERIAL BLOOD GAS PH 7.46 (7.35-7.45); ARTERIAL BLOOD GAS PO2 87 mm/Hg (80-100); ARTERIAL BLOOD GAS TCO2 29.6 mmol/L (22-28)
[2018-05-26] MEDS: levETIRAcetam 100 mg/ml (5ml) Oral Syringe GT SCH ×2 (05:46→18:01)
[2018-05-26 06:20] LABS: MEAN CELL VOLUME 92.8 fL (80.0-94.0); MEAN CORPUSCULAR HEMOGLOBIN 30.1 pg (27.0-31.0); MEAN CORPUSCULAR HGB CONC 32.4 g/dL (33.0-37.0); MEAN PLATELET VOLUME 11.8 fL (7.2-11.7); RBC 3.32 Mil/uL (4.40-5.90); RED CELL DISTRIBUTION WIDTH 13.7 % (11.5-14.5); WHITE BLOOD COUNT 7.1 K/uL (4.8-10.8)
[2018-05-26 06:33] LABS: ALB/GLOB RATIO 0.9 (1.0-2.1); ALBUMIN 2.6 g/dL (3.5-5.0); ALT/SGPT 12 U/L (21-72); AST/SGOT 18 U/L (17-59); BLOOD UREA NITROGEN 22 mg/dL (9-20); GFR AFRICAN-AMERICAN > 60; GFR NON-AFRICAN AMERICAN > 60
[2018-05-26] MEDS: Enoxaparin 40 mg Syringe SC SCH (09:29)
[2018-05-26] MEDS: Pantoprazole 40 mg Susp UD PEG SCH (09:29)
[2018-05-26] MEDS: Ferrous Sulfate 300 mg/5 mL Liq UD PO SCH (09:30)
[2018-05-26] MEDS: Valproic Acid 250 mg/5 ml UD Cup GT SCH ×2 (09:35→21:00)
[2018-05-26] MEDS: Multiple Vitamins Oral Solution GT SCH (09:35)
--- NOTE | 2018-05-26 09:48 | CP.PCM.PN ---
Subjective - Date & Time of Evaluation Date of Evaluation: 05/26/18 Time of Evaluation: 09:00 - Subjective Subjective: PAtient seen and examined at bedside. PAtient with overnight needed one dose of ativan. PAtient less agitated. OPens eyes, no fevers overnight, blood sugar 51 needing, D50. Objective - Vital Signs/Intake and Output Vital Signs (last 24 hours): Temp Pulse Resp BP Pulse Ox 97.5 F L 77 16 122/47 L 100 05/26/18 08:00 05/26/18 09:00 05/26/18 09:00 05/26/18 09:29 05/26/18 08:02 Intake and Output: 05/26/18 05/26/18 06:59 18:59 Intake Total 1360.5 165 Output Total 500 Balance 860.5 165 - Medications Medications: Current Medications Albuterol/Ipratropium (Duoneb 3 Mg/0.5 Mg (3 Ml) Ud) 3 ml INH RQ6 [facility] Last Admin: 05/26/18 08:28 Dose: 3 ml Aspirin (Aspirin Chewable) 81 mg GT DAILY [facility] Last Admin: 05/26/18 09:30 Dose: 81 mg Carvedilol (Coreg) 12.5 mg GT BID [facility] Last Admin: 05/26/18 09:29 Dose: 12.5 mg Enoxaparin Sodium (Lovenox) 40 mg SC DAILY [facility] Last Admin: 05/26/18 09:29 Dose: 40 mg Ferrous Sulfate (Feosol Liq) 300 mg PO DAILY [facility] Last Admin: 05/26/18 09:30 Dose: 300 mg Haloperidol (Haldol) 2 mg PO Q8 [facility] Last Admin: 05/26/18 05:50 Dose: 2 mg Aztreonam 1 gm/ Sodium (Chloride) 100 mls @ 100 mls/hr IVPB Q12H [facility] PRN Reason: Protocol Last Admin: 05/25/18 22:35 Dose: 100 mls/hr Daptomycin 420 mg/ Sodium (Chloride) 100 mls @ 100 mls/hr IV Q24H [facility] Stop: 05/30/18 21:31 Last Admin: 05/25/18 22:37 Dose: 100 mls/hr Insulin Aspart (Novolog) 0 unit SC Q6 [facility] PRN Reason: Protocol Last Admin: 05/26/18 05:41 Dose: Not Given Insulin Detemir (Levemir) 20 unit SC Q12 [facility] Levetiracetam (Keppra) 500 mg GT Q12H [facility] Last Admin: 05/26/18 05:46 Dose: 500 mg Lorazepam (Ativan) 1 mg IVP Q6H PRN PRN Reason: Agitation Last Admin: 05/26/18 03:54 Dose: 1 mg Losartan Potassium (Cozaar) 50 mg PEG BID [facility] Last Admin: 05/26/18 09:30 Dose: 50 mg Multivitamins/Vitamin C (Multi-Delyn Liquid) 5 ml GT DAILY [facility] Last Admin: 05/26/18 09:35 Dose: 5 ml Pantoprazole Sodium (Protonix Susp) 40 mg PEG 1000 [facility] Last Admin: 05/26/18 09:29 Dose: 40 mg Quetiapine Fumarate (Seroquel) 25 mg PO DAILY [facility] Tamsulosin HCl (Flomax) 0.4 mg PEG DAILY [facility] Last Admin: 05/26/18 09:29 Dose: 0.4 mg Valproate Sodium (Depakene Oral Soln) 750 mg GT Q12H [facility] Last Admin: 05/26/18 09:35 Dose: 750 mg - Labs Labs: 05/26/18 06:14 05/26/18 06:14 - Constitutional Appears: Non-toxic - Head Exam Head Exam: ATRAUMATIC - ENT Exam Additional comments: (+)trach, (+)secretions - Respiratory Exam Respiratory Exam: NORMAL BREATHING PATTERN. absent: Rales, Rhonchi, Wheezes, Respiratory Distress - Cardiovascular Exam Cardiovascular Exam: REGULAR RHYTHM, +S1, +S2 - GI/Abdominal Exam GI & Abdominal Exam: Normal Bowel Sounds Additional comments: (+)PEG - Extremities Exam Extremities Exam: Normal Capillary Refill - Neurological Exam Neurological Exam: Alert, Awake Assessment and Plan - Assessment and Plan (Free Text) Assessment: 68 year old male with PMHx of IDDM, HTN, CAD s/p CABg, multiple CVAs in past with PEG and trach in place presented from care home for PEG tube dysfunction. Patient was admitted to ICU after having [employer]ER called on floor which subsequently turned into Code Blue. Patient ROSC after being down for 5 minutes. -Delirium/impulse disorder: - off precedex. Ativan prn for agitation - Seizure prophylaxis: Keppra 500 mg GT q12, Valproate 500 mg GT q12, will add seroquel, check EKG -CAD: continue Aspirin, Coreg -COPD s/p trach: -tolerating CPAP trial -will cange to trach collar - Continue duonebs -continue PEG tube feeds: no residuals -BPH: laury d/c'd, continue flomax Sepsis: continue treatment as per ID -continue skin care as per ICu protocol - Continue zinc sulfate multivit and vitamin c -podiatry follow up -Continue dvt/PUD ppx Patient remains hemodynamically stable. -pending valproic acid level, keppra level and EKG -d/w ICU team
[2018-05-26] MEDS: Insulin Detemir 100 units/ml Vial (Levemir) SC SCH ×2 (10:09→21:00)
[2018-05-26] MEDS: Aztreonam 1 GM in Sodium Chloride 0.9% 100 ML IVPB SCH ×2 (10:55→22:40)
[2018-05-26 11:42] LABS: EOS # 0.4 K/uL (0.0-0.7); EOS % 5.4 % (0.0-4.0); LYMPH # 1.9 K/uL (1.0-4.3); LYMPH % 27.1 % (20.0-40.0); MONO # 0.5 K/uL (0.0-0.8); MONO % 6.8 % (0.0-10.0); NEUT # 4.3 K/uL (1.8-7.0); NEUT % 60.7 % (50.0-75.0)
--- NOTE | 2018-05-26 11:54 | CP.PCM.PN ---
Subjective - Date & Time of Evaluation Date of Evaluation: 05/26/18 Time of Evaluation: 11:51 - Subjective Subjective: Podiatry Progress note for attending Dr. Diaz 68 year old male was seen and evaluated at bedside in ICU for bilateral LE wounds. Patient has disturbed level of consciousness. No history could be obtained from the patient Objective - Vital Signs/Intake and Output Vital Signs (last 24 hours): Temp Pulse Resp BP Pulse Ox 97.5 F L 76 25 H 100/49 L 98 05/26/18 08:00 05/26/18 11:00 05/26/18 11:00 05/26/18 10:50 05/26/18 11:00 Intake and Output: 05/26/18 05/26/18 06:59 18:59 Intake Total 1360.5 630 Output Total 500 Balance 860.5 630 - Medications Medications: Current Medications Albuterol/Ipratropium (Duoneb 3 Mg/0.5 Mg (3 Ml) Ud) 3 ml INH RQ6 [facility] Last Admin: 05/26/18 08:28 Dose: 3 ml Ascorbic Acid (Vitamin C 500 Mg Tab) 500 mg PO DAILY [facility] Last Admin: 05/26/18 10:58 Dose: 500 mg Aspirin (Aspirin Chewable) 81 mg GT DAILY [facility] Last Admin: 05/26/18 09:30 Dose: 81 mg Carvedilol (Coreg) 12.5 mg GT BID [facility] Last Admin: 05/26/18 09:29 Dose: 12.5 mg Enoxaparin Sodium (Lovenox) 40 mg SC DAILY [facility] Last Admin: 05/26/18 09:29 Dose: 40 mg Ferrous Sulfate (Feosol Liq) 300 mg PO DAILY [facility] Last Admin: 05/26/18 09:30 Dose: 300 mg Haloperidol (Haldol) 2 mg PO Q8 [facility] Last Admin: 05/26/18 05:50 Dose: 2 mg Aztreonam 1 gm/ Sodium (Chloride) 100 mls @ 100 mls/hr IVPB Q12H [facility] PRN Reason: Protocol Last Admin: 05/26/18 10:55 Dose: 100 mls/hr Daptomycin 420 mg/ Sodium (Chloride) 100 mls @ 100 mls/hr IV Q24H [facility] Stop: 05/30/18 21:31 Last Admin: 05/25/18 22:37 Dose: 100 mls/hr Insulin Aspart (Novolog) 0 unit SC Q6 [facility] PRN Reason: Protocol Last Admin: 05/26/18 05:41 Dose: Not Given Insulin Detemir (Levemir) 20 unit SC Q12 [facility] Last Admin: 05/26/18 10:09 Dose: 20 u Levetiracetam (Keppra) 500 mg GT Q12H [facility] Last Admin: 05/26/18 05:46 Dose: 500 mg Lorazepam (Ativan) 1 mg IVP Q6H PRN PRN Reason: Agitation Last Admin: 05/26/18 03:54 Dose: 1 mg Losartan Potassium (Cozaar) 50 mg PEG BID [facility] Last Admin: 05/26/18 10:11 Dose: Not Given Multivitamins/Vitamin C (Multi-Delyn Liquid) 5 ml GT DAILY [facility] Last Admin: 05/26/18 09:35 Dose: 5 ml Pantoprazole Sodium (Protonix Susp) 40 mg PEG 1000 [facility] Last Admin: 05/26/18 09:29 Dose: 40 mg Quetiapine Fumarate (Seroquel) 25 mg PO DAILY [facility] Last Admin: 05/26/18 10:11 Dose: Not Given Tamsulosin HCl (Flomax) 0.4 mg PEG DAILY [facility] Last Admin: 05/26/18 09:29 Dose: 0.4 mg Valproate Sodium (Depakene Oral Soln) 750 mg GT Q12H [facility] Last Admin: 05/26/18 09:35 Dose: 750 mg Zinc Sulfate (Zinc Sulfate 220 Mg Cap) 220 mg PO DAILY [facility] Last Admin: 05/26/18 10:58 Dose: 220 mg - Labs Labs: 05/26/18 06:14 05/26/18 06:14 - Constitutional Appears: Non-toxic, No Acute Distress - Head Exam Head Exam: ATRAUMATIC - Extremities Exam Additional comments: Bilateral LE exam VASC: DP/PT 1/4, Cap refill time: < 3 sec to all digits, Temp gradient: warm to cool from proximal to distal, no pitting or non-pitting edema noted NEURO: Protective sensation grossly diminished. DERM: Hyperpigmented epidermal lysis with ischemic wound at the dorsum of the 2nd digit at the level of PIPJ with dry gangrene, no active drainage, no malodor , no purulence, no tunneling, no tracking, no agnes-wound erythema, no clinical suspicion of active infection, Wound measuring approx 1 cm x 1 cm x 0.3 cm noted superior to lateral malleolus, wound bed appears to have 50% fibrotic and 50% grannular tissue, no active drainage, no mal-odor, no tunneling, no tracking , no purulence, no clinical suspicion of active bacterial infection MSK: no pain on palpation of the wound site Assessment and Plan - Assessment and Plan (Free Text) Assessment: 68 year old male patient was evaluated for bilateral LE wound Plan: Patient seen and evaluated Discussed patient in details with attending Dr. Diaz Labs, vitals and charts reviewed - afebrile, WBC @ 7.1 Wound are stable at this time Dressing applied using betadine, DSD No surgical intervention planned this time from podiatry standpoint. Podiatry to follow patient while in-house
--- NOTE | 2018-05-26 23:06 | PN ---
DATE: 05/26/2018 SUBJECTIVE: The patient is slightly agitated. He is back on CPAP. PHYSICAL EXAMINATION: VITAL SIGNS: Blood pressure 149/67, heart rate 92, temperature 99.5, respirations 16. HEENT: Pallor is noted. CHEST: Minimal rhonchi. HEART: S1, S2 regular. EXTREMITIES: Trophic changes involving the second toe. LABORATORY DATA: SMA-7, sodium 149, potassium 3.6, chloride 112, CO2 28, glucose 51, BUN 22, creatinine 0.8. Hemoglobin and hematocrit 10 and 30.8. White count and platelet count are within normal limits. The most recent blood sugar is 145. ASSESSMENT: 1. Respiratory failure. 2. History of cerebrovascular accident, status post tracheostomy and gastrostomy feeding tube placement. 3. Improving hypernatremia and dehydration. 4. Uncontrolled diabetes mellitus. The patient was hypoglycemic earlier today. 5. Agitation. RECOMMENDATIONS: Continue aspirin 81 mg daily via gastrostomy tube, Ativan 1 mg intravenously every 6 hours p.r.n. for agitation, Azactam 1 gm intravenously every 12 hours, Coreg 12.5 mg twice a day, Depakene 750 mg via gastrostomy tube twice a day, Haldol 2 mg p.o. every 8 hours, Keppra 500 mg via gastrostomy tube twice a day, Lovenox 40 mg subcutaneously once a day. Seroquel was started today at 25 mg daily via gastrostomy tube. The case was discussed with the motor vehicle technician, Dr. Leroy. Luke Gibbs MD
--- NOTE | 2018-05-26 23:27 | CP.PCM.PN ---
Objective - Vital Signs/Intake and Output Vital Signs (last 24 hours): Temp Pulse Resp BP Pulse Ox 99.0 F 82 12 159/65 H 100 05/26/18 20:00 05/26/18 23:04 05/26/18 23:04 05/26/18 23:04 05/26/18 23:04 Intake and Output: 05/26/18 05/27/18 18:59 06:59 Intake Total 1160 415 Output Total 250 220 Balance 910 195 - Medications Medications: Current Medications Albuterol/Ipratropium (Duoneb 3 Mg/0.5 Mg (3 Ml) Ud) 3 ml INH RQ6 [facility] Last Admin: 05/26/18 21:00 Dose: 3 ml Ascorbic Acid (Vitamin C 500 Mg Tab) 500 mg PO DAILY [facility] Last Admin: 05/26/18 10:58 Dose: 500 mg Aspirin (Aspirin Chewable) 81 mg GT DAILY [facility] Last Admin: 05/26/18 09:30 Dose: 81 mg Carvedilol (Coreg) 12.5 mg GT BID [facility] Last Admin: 05/26/18 18:00 Dose: 12.5 mg Enoxaparin Sodium (Lovenox) 40 mg SC DAILY [facility] Last Admin: 05/26/18 09:29 Dose: 40 mg Ferrous Sulfate (Feosol Liq) 300 mg PO DAILY [facility] Last Admin: 05/26/18 09:30 Dose: 300 mg Haloperidol (Haldol) 2 mg PO Q8 [facility] Last Admin: 05/26/18 21:00 Dose: 2 mg Aztreonam 1 gm/ Sodium (Chloride) 100 mls @ 100 mls/hr IVPB Q12H [facility] PRN Reason: Protocol Last Admin: 05/26/18 22:40 Dose: 100 mls/hr Daptomycin 420 mg/ Sodium (Chloride) 100 mls @ 100 mls/hr IV Q24H [facility] Stop: 05/30/18 21:31 Last Admin: 05/26/18 20:47 Dose: 100 mls/hr Insulin Aspart (Novolog) 0 unit SC Q6 [facility] PRN Reason: Protocol Last Admin: 05/26/18 18:32 Dose: 4 units Insulin Detemir (Levemir) 20 unit SC Q12 [facility] Last Admin: 05/26/18 21:00 Dose: 20 u Levetiracetam (Keppra) 500 mg GT Q12H [facility] Last Admin: 05/26/18 18:01 Dose: 500 mg Lorazepam (Ativan) 1 mg IVP Q6H [facility]N PRN Reason: Agitation Last Admin: 05/26/18 03:54 Dose: 1 mg Losartan Potassium (Cozaar) 50 mg PEG BID [facility] Last Admin: 05/26/18 18:00 Dose: 50 mg Multivitamins/Vitamin C (Multi-Delyn Liquid) 5 ml GT DAILY [facility] Last Admin: 05/26/18 09:35 Dose: 5 ml Mupirocin (Bactroban Ointment) 0 gm TOP DAILY [facility] Pantoprazole Sodium (Protonix Susp) 40 mg PEG 1000 [facility] Last Admin: 05/26/18 09:29 Dose: 40 mg Quetiapine Fumarate (Seroquel) 25 mg PO DAILY [facility] Last Admin: 05/26/18 12:36 Dose: 25 mg Tamsulosin HCl (Flomax) 0.4 mg PEG DAILY [facility] Last Admin: 05/26/18 09:29 Dose: 0.4 mg Valproate Sodium (Depakene Oral Soln) 750 mg GT Q12H [facility] Last Admin: 05/26/18 21:00 Dose: 750 mg Zinc Sulfate (Zinc Sulfate 220 Mg Cap) 220 mg PO DAILY [facility] Last Admin: 05/26/18 10:58 Dose: 220 mg - Labs Labs: 05/26/18 06:14 05/26/18 06:14 Assessment and Plan (1) CKD (chronic kidney disease) Status: Acute (2) COPD (chronic obstructive pulmonary disease) Status: Acute (3) Dehydration Status: Acute (4) Diabetes Status: Acute (5) Ischemic encephalopathy Status: Acute (6) Sepsis Status: Acute (7) Status post tracheostomy Status: Acute
--- NOTE | 2018-05-26 23:29 | CP.PCM.PN ---
Subjective - Date & Time of Evaluation Date of Evaluation: 05/26/18 Time of Evaluation: 23:29 - Subjective Subjective: AFEBRILE, TMAX 99.0 OPENS EYES TO STIMULI, TRACH SECRETIONS MINIMAL, ON CPAP THIS A.M. PEG FEEDINGS ONGOING Barber IN PLACE.. BILATERAL FOOT DRESSING IN PLACE. ROS; NA bECAUSE OF ALTERED MENTAL STATUS. Objective - Vital Signs/Intake and Output Vital Signs (last 24 hours): Temp Pulse Resp BP Pulse Ox 99.0 F 82 12 159/65 H 100 05/26/18 20:00 05/26/18 23:04 05/26/18 23:04 05/26/18 23:04 05/26/18 23:04 Intake and Output: 05/26/18 05/27/18 18:59 06:59 Intake Total 1160 415 Output Total 250 220 Balance 910 195 - Medications Medications: Current Medications Albuterol/Ipratropium (Duoneb 3 Mg/0.5 Mg (3 Ml) Ud) 3 ml INH RQ6 [facility] Last Admin: 05/26/18 21:00 Dose: 3 ml Ascorbic Acid (Vitamin C 500 Mg Tab) 500 mg PO DAILY [facility] Last Admin: 05/26/18 10:58 Dose: 500 mg Aspirin (Aspirin Chewable) 81 mg GT DAILY [facility] Last Admin: 05/26/18 09:30 Dose: 81 mg Carvedilol (Coreg) 12.5 mg GT BID [facility] Last Admin: 05/26/18 18:00 Dose: 12.5 mg Enoxaparin Sodium (Lovenox) 40 mg SC DAILY [facility] Last Admin: 05/26/18 09:29 Dose: 40 mg Ferrous Sulfate (Feosol Liq) 300 mg PO DAILY [facility] Last Admin: 05/26/18 09:30 Dose: 300 mg Haloperidol (Haldol) 2 mg PO Q8 [facility] Last Admin: 05/26/18 21:00 Dose: 2 mg Aztreonam 1 gm/ Sodium (Chloride) 100 mls @ 100 mls/hr IVPB Q12H [facility] PRN Reason: Protocol Last Admin: 05/26/18 22:40 Dose: 100 mls/hr Daptomycin 420 mg/ Sodium (Chloride) 100 mls @ 100 mls/hr IV Q24H [facility] Stop: 05/30/18 21:31 Last Admin: 05/26/18 20:47 Dose: 100 mls/hr Insulin Aspart (Novolog) 0 unit SC Q6 [facility] PRN Reason: Protocol Last Admin: 05/26/18 18:32 Dose: 4 units Insulin Detemir (Levemir) 20 unit SC Q12 [facility] Last Admin: 05/26/18 21:00 Dose: 20 u Levetiracetam (Keppra) 500 mg GT Q12H [facility] Last Admin: 05/26/18 18:01 Dose: 500 mg Lorazepam (Ativan) 1 mg IVP Q6H PRN PRN Reason: Agitation Last Admin: 05/26/18 03:54 Dose: 1 mg Losartan Potassium (Cozaar) 50 mg PEG BID [facility] Last Admin: 05/26/18 18:00 Dose: 50 mg Multivitamins/Vitamin C (Multi-Delyn Liquid) 5 ml GT DAILY [facility] Last Admin: 05/26/18 09:35 Dose: 5 ml Mupirocin (Bactroban Ointment) 0 gm TOP DAILY [facility] Pantoprazole Sodium (Protonix Susp) 40 mg PEG 1000 [facility] Last Admin: 05/26/18 09:29 Dose: 40 mg Quetiapine Fumarate (Seroquel) 25 mg PO DAILY [facility] Last Admin: 05/26/18 12:36 Dose: 25 mg Tamsulosin HCl (Flomax) 0.4 mg PEG DAILY [facility] Last Admin: 05/26/18 09:29 Dose: 0.4 mg Valproate Sodium (Depakene Oral Soln) 750 mg GT Q12H [facility] Last Admin: 05/26/18 21:00 Dose: 750 mg Zinc Sulfate (Zinc Sulfate 220 Mg Cap) 220 mg PO DAILY [facility] Last Admin: 05/26/18 10:58 Dose: 220 mg - Labs Labs: 05/26/18 06:14 05/26/18 06:14 Assessment and Plan (1) Fever Assessment & Plan: BLOOD CULTURES 05/22/18 -VE TO DATE. LT LEG WOUND CULTURE -STAPH AUREUS. + MRSA R-CLINDA, S -VANCOTETRA.LINIZOLID ON iv DAPTOMYCIN 6 MG/KG iv PIGGYBACK EVERY 24 HOURLY 05/25/18 CONTINUE IV AZACTAM 1GM IVPB Q 12HRLY. OFF IV VANCOMYCIN ( ? DRUG FEVER ) Status: Acute (2) UTI (urinary tract infection) Assessment & Plan: URINE CULTURES 7/3/18 -VE GROWTH OFF IV FLUCONAZOLE. Status: Acute (3) Altered mental status Assessment & Plan: PATIENT AROUSABLE. 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
[2018-05-27] MEDS: (Novolog) Insulin Aspart, Recombinant 100 u/ml 10 ml vial SC SCH ×5 (01:20→23:24)
[2018-05-27] MEDS: Albuterol-Ipratrop 3 mg / 0.5 (3 ml) UD INH SCH ×4 (02:20→19:17)
[2018-05-27] MEDS: levETIRAcetam 100 mg/ml (5ml) Oral Syringe GT SCH ×2 (06:08→17:58)
[2018-05-27 06:22] LABS: BASO % 0.3 % (0.0-2.0); EOS # 0.2 K/uL (0.0-0.7); EOS % 3.4 % (0.0-4.0); HEMOGLOBIN 10.5 g/dL (12.0-18.0); LYMPH # 1.9 K/uL (1.0-4.3); LYMPH % 29.3 % (20.0-40.0); MEAN CELL VOLUME 92.6 fL (80.0-94.0); MEAN CORPUSCULAR HEMOGLOBIN 29.7 pg (27.0-31.0); MEAN CORPUSCULAR HGB CONC 32.1 g/dL (33.0-37.0); MONO # 0.5 K/uL (0.0-0.8); MONO % 7.2 % (0.0-10.0); NEUT # 3.9 K/uL (1.8-7.0); NEUT % 59.8 % (50.0-75.0); RBC 3.53 Mil/uL (4.40-5.90); WHITE BLOOD COUNT 6.6 K/uL (4.8-10.8)
[2018-05-27 06:35] LABS: ALB/GLOB RATIO 0.9 (1.0-2.1); ALBUMIN 2.9 g/dL (3.5-5.0); ALT/SGPT 19 U/L (21-72); AST/SGOT 23 U/L (17-59); BLOOD UREA NITROGEN 21 mg/dL (9-20); CALCIUM 8.2 mg/dl (8.6-10.4); GFR AFRICAN-AMERICAN > 60; GFR NON-AFRICAN AMERICAN > 60
--- NOTE | 2018-05-27 09:01 | RAD ---
HISTORY: Evaluation COMPARISON: Comparison made with prior study dated 05/24/2018 FINDINGS: In situ tracheostomy tube in good position. LUNGS: Poor inspiration with low lung volumes, crowded bronchovascular markings and mild bibasilar atelectasis with suspected small bilateral effusions left larger than right. PLEURA: No pneumothorax apparent. CARDIOVASCULAR: Cardiomegaly. OSSEOUS STRUCTURES: No significant abnormalities. VISUALIZED UPPER ABDOMEN: Normal. OTHER FINDINGS: None. IMPRESSION: Poor inspiration with low lung volumes, crowded bronchovascular markings and mild bibasilar atelectasis with suspected small bilateral effusions left larger than right. .
[2018-05-27] MEDS: Ferrous Sulfate 300 mg/5 mL Liq UD PO SCH (09:19)
[2018-05-27] MEDS: Pantoprazole 40 mg Susp UD PEG SCH (09:20)
[2018-05-27] MEDS: Multiple Vitamins Oral Solution GT SCH (09:20)
[2018-05-27] MEDS: Insulin Detemir 100 units/ml Vial (Levemir) SC SCH ×2 (09:20→21:02)
[2018-05-27] MEDS: Enoxaparin 40 mg Syringe SC SCH (09:20)
--- NOTE | 2018-05-27 10:26 | CP.PCM.PN ---
Subjective - Date & Time of Evaluation Date of Evaluation: 05/27/18 Time of Evaluation: 10:26 - Subjective Subjective: Patient remains hemodynamically stable. still agitated off precedex, requiring 1 :1 Objective - Vital Signs/Intake and Output Vital Signs (last 24 hours): Temp Pulse Resp BP Pulse Ox 97.8 F 87 14 122/43 L 100 05/27/18 08:00 05/27/18 09:04 05/27/18 09:04 05/27/18 09:20 05/27/18 09:04 Intake and Output: 05/27/18 05/27/18 06:59 18:59 Intake Total 760 465 Output Total 600 Balance 160 465 - Medications Medications: Current Medications Albuterol/Ipratropium (Duoneb 3 Mg/0.5 Mg (3 Ml) Ud) 3 ml INH RQ6 [facility] Last Admin: 05/27/18 07:24 Dose: 3 ml Ascorbic Acid (Vitamin C 500 Mg Tab) 500 mg PO DAILY [facility] Last Admin: 05/27/18 09:20 Dose: 500 mg Aspirin (Aspirin Chewable) 81 mg GT DAILY [facility] Last Admin: 05/27/18 09:23 Dose: 81 mg Carvedilol (Coreg) 12.5 mg GT BID [facility] Last Admin: 05/27/18 09:20 Dose: 12.5 mg Enoxaparin Sodium (Lovenox) 40 mg SC DAILY [facility] Last Admin: 05/27/18 09:20 Dose: 40 mg Ferrous Sulfate (Feosol Liq) 300 mg PO DAILY [facility] Last Admin: 05/27/18 09:19 Dose: 300 mg Haloperidol (Haldol) 2 mg PO Q8 [facility] Last Admin: 05/27/18 06:08 Dose: 2 mg Aztreonam 1 gm/ Sodium (Chloride) 100 mls @ 100 mls/hr IVPB Q12H [facility] PRN Reason: Protocol Last Admin: 05/26/18 22:40 Dose: 100 mls/hr Daptomycin 420 mg/ Sodium (Chloride) 100 mls @ 100 mls/hr IV Q24H [facility] Stop: 05/30/18 21:31 Last Admin: 05/26/18 20:47 Dose: 100 mls/hr Insulin Aspart (Novolog) 0 unit SC Q6 [facility] PRN Reason: Protocol Last Admin: 05/27/18 06:08 Dose: 2 units Insulin Detemir (Levemir) 20 unit SC Q12 [facility] Last Admin: 05/27/18 09:20 Dose: 20 u Levetiracetam (Keppra) 500 mg GT Q12H [facility] Last Admin: 05/27/18 06:08 Dose: 500 mg Lorazepam (Ativan) 1 mg IVP Q6H [facility] PRN Reason: Agitation Last Admin: 05/26/18 03:54 Dose: 1 mg Losartan Potassium (Cozaar) 50 mg PEG BID [facility] Last Admin: 05/27/18 09:19 Dose: 50 mg Multivitamins/Vitamin C (Multi-Delyn Liquid) 5 ml GT DAILY [facility] Last Admin: 05/27/18 09:20 Dose: 5 ml Mupirocin (Bactroban Ointment) 0 gm TOP DAILY [facility] Pantoprazole Sodium (Protonix Susp) 40 mg PEG 1000 [facility] Last Admin: 05/27/18 09:20 Dose: 40 mg Quetiapine Fumarate (Seroquel) 25 mg PO DAILY [facility] Last Admin: 05/27/18 09:20 Dose: 25 mg Tamsulosin HCl (Flomax) 0.4 mg PEG DAILY [facility] Last Admin: 05/27/18 09:20 Dose: 0.4 mg Valproate Sodium (Depakene Oral Soln) 1,000 mg GT Q12H [facility] Zinc Sulfate (Zinc Sulfate 220 Mg Cap) 220 mg PO DAILY [facility] Last Admin: 05/27/18 09:20 Dose: 220 mg - Labs Labs: 05/27/18 06:15 05/27/18 06:14 - Constitutional Appears: Well - Head Exam Head Exam: ATRAUMATIC, NORMAL INSPECTION - ENT Exam Additional comments: (+)trach - Respiratory Exam Respiratory Exam: Clear to Ausculation Bilateral, NORMAL BREATHING PATTERN - Cardiovascular Exam Cardiovascular Exam: REGULAR RHYTHM, +S1, +S2 - GI/Abdominal Exam GI & Abdominal Exam: Normal Bowel Sounds Additional comments: (+)peg - Extremities Exam Extremities Exam: Normal Inspection - Neurological Exam Neurological Exam: Alert, Awake - Skin Skin Exam: Normal Color Assessment and Plan - Assessment and Plan (Free Text) Assessment: 68 year old male with PMHx of IDDM, HTN, CAD s/p CABg, multiple CVAs in past with PEG and trach in place presented from care home for PEG tube dysfunction. Patient was admitted to ICU after having FIRER RETORT called on floor which subsequently turned into Code Blue. Patient ROSC after being down for 5 minutes. -Delirium/impulse disorder: - off precedex. Ativan prn for agitation - Seizure prophylaxis: Keppra 500 mg GT q12, valproic acid level low will increase to Valproate 1000 mg GT q12, continue seroquel 25 mg, QTC normal -if still agitated, will increase seroquel to 25 bid -CAD: continue Aspirin, Coreg -COPD s/p trach: continue daily, CPAP trials, did not tolerate trach collar ( tachypnea), continue duonebs -continue PEG tube feeds: no residuals -Hypernatremia: increase free water to 300 ml q4hrs -BPH: schaeffer d/c'd, continue flomax Sepsis: continue treatment as per ID, remains afebrile -continue skin care as per ICu protocol - Continue zinc sulfate multivit and vitamin c -podiatry follow up -Continue dvt/PUD ppx Patient remains hemodynamically stable. MRSA/contact -d/w ICU team
[2018-05-27] MEDS: Valproic Acid 250 mg/5 ml UD Cup GT SCH ×2 (10:35→20:55)
[2018-05-27] MEDS: Aztreonam 1 GM in Sodium Chloride 0.9% 100 ML IVPB SCH ×2 (11:34→23:21)
--- NOTE | 2018-05-27 18:48 | CP.PCM.PN ---
Subjective - Date & Time of Evaluation Date of Evaluation: 05/27/18 Time of Evaluation: 18:45 - Subjective Subjective: Podiatry Progress note for attending Dr. Diaz 68 year old male was seen and evaluated at bedside in ICU for bilateral LE wounds. Patient has disturbed level of consciousness. No history could be obtained from the patient. His nurse states that today he is better with less agitated movements. Objective - Vital Signs/Intake and Output Vital Signs (last 24 hours): Temp Pulse Resp BP Pulse Ox 99.6 F 72 12 120/37 L 100 05/27/18 16:00 05/27/18 17:00 05/27/18 17:00 05/27/18 17:57 05/27/18 17:00 Intake and Output: 05/27/18 05/27/18 06:59 18:59 Intake Total 760 1175 Output Total 600 300 Balance 160 875 - Medications Medications: Current Medications Albuterol/Ipratropium (Duoneb 3 Mg/0.5 Mg (3 Ml) Ud) 3 ml INH RQ6 [facility] Last Admin: 05/27/18 13:02 Dose: 3 ml Ascorbic Acid (Vitamin C 500 Mg Tab) 500 mg PO DAILY [facility] Last Admin: 05/27/18 09:20 Dose: 500 mg Aspirin (Aspirin Chewable) 81 mg GT DAILY [facility] 234 [facility]S [facility] Last Admin: 05/27/18 09:23 Dose: 81 mg Carvedilol (Coreg) 12.5 mg GT BID [facility] 234 [facility]EDS AT [facility] Last Admin: 05/27/18 17:57 Dose: 12.5 mg Enoxaparin Sodium (Lovenox) 40 mg SC DAILY [facility] 234 [facility]S [facility] Last Admin: 05/27/18 09:20 Dose: 40 mg Ferrous Sulfate (Feosol Liq) 300 mg PO DAILY [facility] 234 [facility]S [facility] Last Admin: 05/27/18 09:19 Dose: 300 mg Haloperidol (Haldol) 2 mg PO Q8 [facility] 234 [facility]S [facility] Last Admin: 05/27/18 13:25 Dose: 2 mg Aztreonam 1 gm/ Sodium (Chloride) 100 mls @ 100 mls/hr IVPB Q12H [facility] 234 BEDS AT [facility] PRN Reason: Protocol Last Admin: 05/27/18 11:34 Dose: 100 mls/hr Daptomycin 420 mg/ Sodium (Chloride) 100 mls @ 100 mls/hr IV Q24H [facility] 234 BEDS AT [facility] Stop: 05/30/18 21:31 Last Admin: 05/26/18 20:47 Dose: 100 mls/hr Insulin Aspart (Novolog) 0 unit SC Q6 [facility] PRN Reason: Protocol Last Admin: 05/27/18 12:16 Dose: 4 units Insulin Detemir (Levemir) 20 unit SC Q12 [facility] Last Admin: 05/27/18 09:20 Dose: 20 u Levetiracetam (Keppra) 500 mg GT Q12H [facility] Last Admin: 05/27/18 17:58 Dose: 500 mg Lorazepam (Ativan) 1 mg IVP Q6H PRN PRN Reason: Agitation Last Admin: 05/26/18 03:54 Dose: 1 mg Losartan Potassium (Cozaar) 50 mg PEG BID [facility] 234 BEDS AT [facility] Last Admin: 05/27/18 17:57 Dose: 50 mg Multivitamins/Vitamin C (Multi-Delyn Liquid) 5 ml GT DAILY [facility] 234 B[facility]S [facility] Last Admin: 05/27/18 09:20 Dose: 5 ml Mupirocin (Bactroban Ointment) 0 gm TOP DAILY [facility] 234 [facility]S AT [facility] Last Admin: 05/27/18 14:22 Dose: 1 dose Pantoprazole Sodium (Protonix Susp) 40 mg PEG 1000 [facility] 234 [facility]S AT [facility] Last Admin: 05/27/18 09:20 Dose: 40 mg Quetiapine Fumarate (Seroquel) 25 mg PO DAILY [facility] 234 BEDS AT [facility] Last Admin: 05/27/18 09:20 Dose: 25 mg Tamsulosin HCl (Flomax) 0.4 mg PEG DAILY [facility] 234 BEDS AT [facility] Last Admin: 05/27/18 09:20 Dose: 0.4 mg Valproate Sodium (Depakene Oral Soln) 1,000 mg GT Q12H [facility] 234 BEDS AT [facility] Last Admin: 05/27/18 10:35 Dose: 1,000 mg Zinc Sulfate (Zinc Sulfate 220 Mg Cap) 220 mg PO DAILY [facility] 234 B[facility]S AT [facility] Last Admin: 05/27/18 09:20 Dose: 220 mg - Labs Labs: 05/27/18 06:15 05/27/18 06:14 - Constitutional Appears: Non-toxic - Head Exam Head Exam: ATRAUMATIC, NORMOCEPHALIC - Extremities Exam Additional comments: Bilateral LE exam VASC: DP/PT 1/4, Cap refill time: < 3 sec to all digits, Temp gradient: warm to cool from proximal to distal, no pitting or non-pitting edema noted NEURO: Protective sensation grossly diminished. DERM: Hyperpigmented epidermal lysis with ischemic wound at the dorsum of the 2nd digit at the level of PIPJ with dry gangrene, no active drainage, no malodor , no purulence, no tunneling, no tracking, no agnes-wound erythema, no clinical suspicion of active infection, Wound measuring approx 1 cm x 1 cm x 0.3 cm noted superior to lateral malleolus, wound bed appears to have 50% fibrotic and 50% grannular tissue, no active drainage, no mal-odor, no tunneling, no tracking , no purulence. MSK: no pain on palpation of the wound site Assessment and Plan - Assessment and Plan (Free Text) Assessment: 68 year old male patient was evaluated for bilateral LE ulcers Plan: Patient seen and evaluated Discussed patient in details with attending Dr. Diaz Labs, vitals and charts reviewed - afebrile, WBC @ 6.6 Wound are stable at this time Dressing applied using betadine, DSD on the L foot ulcer and bactroban and DSD for the R ankle ulcer No surgical intervention planned this time from podiatry standpoint. Podiatry to follow patient while in-house
--- NOTE | 2018-05-27 20:28 | PN ---
DATE: 05/27/2018 SUBJECTIVE: The patient is more sedated today and less combative. He is back on mechanical ventilation. PHYSICAL EXAMINATION: VITAL SIGNS: Blood pressure 106/84, heart rate 81, temperature 99.2, respirations 21. HEENT: Normocephalic. CHEST: Bilateral rhonchi. HEART: S1 and S2 regular. ABDOMEN: Soft. EXTREMITIES: Dressings applied to the left heel ulcer and to the right toes. LABORATORY DATA: Hemoglobin and hematocrit today are 10.5 and 32.7. White count and platelet count are within normal limits. Serum sodium 150, potassium 3.8, chloride 109, CO2 32, glucose 169, BUN 21, and creatinine 0.8. Left leg ulcer is positive for MRSA. ASSESSMENT: 1. Respiratory failure. 2. History of cerebrovascular accident. 3. Infected left heel ulcer with methicillin resistant Staphylococcus aureus. 4. Right second toe cellulitis. 5. Hypertension. RECOMMENDATIONS: Continue aspirin 81 mg once a day, Azactam at 1 gm intravenously every 12 hours, Coreg 12.5 mg once a day, Cozaar 50 mg once a day, daptomycin 420 mg intravenously daily, Depakene oral solution 1 gm twice a day via gastrostomy tube, Keppra 500 mg twice a day via gastrostomy tube, Haldol 2 mg every 8 hours via gastrostomy tube, Seroquel 500 mg daily. Luke Gibbs MD
--- NOTE | 2018-05-27 23:45 | CP.PCM.PN ---
Objective - Vital Signs/Intake and Output Vital Signs (last 24 hours): Temp Pulse Resp BP Pulse Ox 99 F 73 16 109/46 L 100 05/27/18 20:00 05/27/18 20:00 05/27/18 20:00 05/27/18 20:00 05/27/18 20:00 Intake and Output: 05/27/18 05/28/18 18:59 06:59 Intake Total 1475 Output Total 450 Balance 1025 - Medications Medications: Current Medications Albuterol/Ipratropium (Duoneb 3 Mg/0.5 Mg (3 Ml) Ud) 3 ml INH RQ6 [facility] Last Admin: 05/27/18 19:17 Dose: 3 ml Ascorbic Acid (Vitamin C 500 Mg Tab) 500 mg PO DAILY [facility] Last Admin: 05/27/18 09:20 Dose: 500 mg Aspirin (Aspirin Chewable) 81 mg GT DAILY [facility] Last Admin: 05/27/18 09:23 Dose: 81 mg Carvedilol (Coreg) 12.5 mg GT BID [facility] Last Admin: 05/27/18 17:57 Dose: 12.5 mg Enoxaparin Sodium (Lovenox) 40 mg SC DAILY [facility] Last Admin: 05/27/18 09:20 Dose: 40 mg Ferrous Sulfate (Feosol Liq) 300 mg PO DAILY [facility] Last Admin: 05/27/18 09:19 Dose: 300 mg Haloperidol (Haldol) 2 mg PO Q8 [facility] Last Admin: 05/27/18 21:01 Dose: 2 mg Aztreonam 1 gm/ Sodium (Chloride) 100 mls @ 100 mls/hr IVPB Q12H [facility] PRN Reason: Protocol Last Admin: 05/27/18 23:21 Dose: 100 mls/hr Daptomycin 420 mg/ Sodium (Chloride) 100 mls @ 100 mls/hr IV Q24H [facility] Stop: 05/30/18 21:31 Last Admin: 05/27/18 20:55 Dose: 100 mls/hr Insulin Aspart (Novolog) 0 unit SC Q6 [facility] PRN Reason: Protocol Last Admin: 05/27/18 23:24 Dose: 2 units Insulin Detemir (Levemir) 20 unit SC Q12 [facility] Last Admin: 05/27/18 21:02 Dose: 20 u Levetiracetam (Keppra) 500 mg GT Q12H [facility] Last Admin: 05/27/18 17:58 Dose: 500 mg Lorazepam (Ativan) 1 mg IVP Q6H PRN PRN Reason: Agitation Last Admin: 05/26/18 03:54 Dose: 1 mg Losartan Potassium (Cozaar) 50 mg PEG BID [facility] Last Admin: 05/27/18 17:57 Dose: 50 mg Multivitamins/Vitamin C (Multi-Delyn Liquid) 5 ml GT DAILY [facility] Last Admin: 05/27/18 09:20 Dose: 5 ml Mupirocin (Bactroban Ointment) 0 gm TOP DAILY [facility] Last Admin: 05/27/18 14:22 Dose: 1 dose Pantoprazole Sodium (Protonix Susp) 40 mg PEG 1000 [facility] Last Admin: 05/27/18 09:20 Dose: 40 mg Quetiapine Fumarate (Seroquel) 25 mg PO DAILY [facility] Last Admin: 05/27/18 09:20 Dose: 25 mg Tamsulosin HCl (Flomax) 0.4 mg PEG DAILY [facility] Last Admin: 05/27/18 09:20 Dose: 0.4 mg Valproate Sodium (Depakene Oral Soln) 1,000 mg GT Q12H [facility] Last Admin: 05/27/18 20:55 Dose: 1,000 mg Zinc Sulfate (Zinc Sulfate 220 Mg Cap) 220 mg PO DAILY [facility] Last Admin: 05/27/18 09:20 Dose: 220 mg - Labs Labs: 05/27/18 06:15 05/27/18 06:14 Assessment and Plan (1) CKD (chronic kidney disease) Status: Acute (2) COPD (chronic obstructive pulmonary disease) Status: Acute (3) Dehydration Status: Acute (4) Diabetes Status: Acute (5) Ischemic encephalopathy Status: Acute (6) Sepsis Status: Acute (7) Status post tracheostomy Status: Acute
--- NOTE | 2018-05-27 23:47 | PN ---
DATE: 05/27/2018 SUBJECTIVE: The patient is on mechanical ventilator via trach collar. He is afebrile. No distress. PHYSICAL EXAMINATION: VITAL SIGNS: Blood pressure 150/65, pulse 88, respiratory rate 13, temperature 99. SKIN: No ooze. LUNGS: Clear, transmitted breath sounds. HEART: S1, S2 plus S3 positive. ABDOMEN: Soft. . ASSESSMENT: 1. Respiratory failure, persistent. 2. Rule out septicemia, tracheobronchitis. 3. Hypertension with hypertensive encephalopathy. 4. Diabetes. PLAN: Continue current medication. Mechanical ventilator. Attempt weaning. Arash Rose MD
[2018-05-28] MEDS: Albuterol-Ipratrop 3 mg / 0.5 (3 ml) UD INH SCH ×3 (02:22→13:17)
--- NOTE | 2018-05-28 05:01 | PN ---
DATE: 05/27/2018 SUBJECTIVE: The patient remains on ventilator. No fever. No distress. He is afebrile. PHYSICAL EXAMINATION: VITAL SIGNS: Blood pressure 119/46, pulse 73, respiratory rate 16, temperature 99. LUNGS: Bilateral transmitted breath sounds. CVS: S1 and S2 are regular. No heave. No thrill. ABDOMEN: Soft and nontender. Bowel sounds present. ASSESSMENT: 1. Acute on chronic respiratory failure. 2. Diabetes. 3. Hypertension. 4. Ischemic encephalopathy. PLAN: Supportive care. Attempt to extubation. Monitor the patient. Arash Rose MD
[2018-05-28] MEDS: (Novolog) Insulin Aspart, Recombinant 100 u/ml 10 ml vial SC SCH ×3 (06:24→18:18)
[2018-05-28] MEDS: levETIRAcetam 100 mg/ml (5ml) Oral Syringe GT SCH ×2 (06:28→18:18)
--- NOTE | 2018-05-28 07:11 | PN ---
DATE: 05/25/2018 HISTORY OF PRESENT ILLNESS: The patient is on mechanical ventilator. No changes. He is not responsive. He is on ventilator with FiO2 of 40%. No fever. No chills. PHYSICAL EXAMINATION: VITAL SIGNS: Blood pressure 141/46, pulse 68, respiratory rate 15, temperature 99. LUNGS: Bilateral transmitted breath sounds. CARDIOVASCULAR: S1 and S2 are regular. ABDOMEN: Soft. ASSESSMENT: 1. Respiratory failure, persistent. 2. Tracheobronchitis. 3. Ischemic encephalopathy. 4. Type 2 diabetes. PLAN: Monitor the patient. Arash Rose MD
[2018-05-28] MEDS: Valproic Acid 250 mg/5 ml UD Cup GT SCH ×2 (07:41→19:05)
[2018-05-28 08:06] LABS: BLOOD UREA NITROGEN 25 mg/dL (9-20); CALCIUM 8.4 mg/dl (8.6-10.4); GFR AFRICAN-AMERICAN > 60; GFR NON-AFRICAN AMERICAN > 60
[2018-05-28] MEDS: Ferrous Sulfate 300 mg/5 mL Liq UD PO SCH (09:08)
[2018-05-28] MEDS: Multiple Vitamins Oral Solution GT SCH (09:09)
[2018-05-28] MEDS: Enoxaparin 40 mg Syringe SC SCH (09:09)
[2018-05-28] MEDS: Pantoprazole 40 mg Susp UD PEG SCH (09:30)
[2018-05-28] MEDS: Insulin Detemir 100 units/ml Vial (Levemir) SC SCH ×2 (10:26→21:30)
[2018-05-28] MEDS: Aztreonam 1 GM in Sodium Chloride 0.9% 100 ML IVPB SCH ×2 (11:53→23:31)
--- NOTE | 2018-05-28 12:48 | CP.PCM.PN ---
Subjective - Date & Time of Evaluation Date of Evaluation: 05/28/18 Time of Evaluation: 12:48 - Subjective Subjective: AFEBRILE, DROWSY OPENS EYES TO STIMULI, TRACH SECRETIONS MINIMAL, PEG FEEDINGS ONGOING Barber IN PLACE.. BILATERAL FOOT DRESSING IN PLACE. ROS; NA BECAUSE OF ALTERED MENTAL STATUS. Objective - Vital Signs/Intake and Output Vital Signs (last 24 hours): Temp Pulse Resp BP Pulse Ox 97.9 F 88 20 133/61 100 05/28/18 07:00 05/28/18 08:00 05/28/18 07:00 05/28/18 10:25 05/28/18 07:00 Intake and Output: 05/28/18 05/28/18 06:59 18:59 Intake Total 1460 Output Total 350 Balance 1110 - Medications Medications: Current Medications Albuterol/Ipratropium (Duoneb 3 Mg/0.5 Mg (3 Ml) Ud) 3 ml INH RQ6 [facility] Last Admin: 05/28/18 07:15 Dose: 3 ml Ascorbic Acid (Vitamin C 500 Mg Tab) 500 mg PO DAILY [facility] Last Admin: 05/28/18 09:15 Dose: 500 mg Aspirin (Aspirin Chewable) 81 mg GT DAILY [facility] Last Admin: 05/28/18 09:11 Dose: 81 mg Carvedilol (Coreg) 12.5 mg GT BID [facility] Last Admin: 05/28/18 10:25 Dose: 12.5 mg Enoxaparin Sodium (Lovenox) 40 mg SC DAILY [facility] Last Admin: 05/28/18 09:09 Dose: 40 mg Ferrous Sulfate (Feosol Liq) 300 mg PO DAILY [facility] Last Admin: 05/28/18 09:08 Dose: 300 mg Haloperidol (Haldol) 2 mg PO Q8 [facility] Last Admin: 05/28/18 06:28 Dose: 2 mg Aztreonam 1 gm/ Sodium (Chloride) 100 mls @ 100 mls/hr IVPB Q12H [facility] PRN Reason: Protocol Last Admin: 05/28/18 11:53 Dose: 100 mls/hr Daptomycin 420 mg/ Sodium (Chloride) 100 mls @ 100 mls/hr IV Q24H [facility] Stop: 05/30/18 21:31 Last Admin: 05/27/18 20:55 Dose: 100 mls/hr Insulin Aspart (Novolog) 0 unit SC Q6 [facility] PRN Reason: Protocol Last Admin: 05/28/18 12:24 Dose: 6 units Insulin Detemir (Levemir) 20 unit SC Q12 [facility] Last Admin: 05/28/18 10:26 Dose: 20 u Levetiracetam (Keppra) 500 mg GT Q12H [facility] Last Admin: 05/28/18 06:28 Dose: 500 mg Lorazepam (Ativan) 1 mg IVP Q6H PRN PRN Reason: Agitation Last Admin: 05/26/18 03:54 Dose: 1 mg Losartan Potassium (Cozaar) 50 mg PEG BID [facility] Last Admin: 05/28/18 10:25 Dose: 50 mg Multivitamins/Vitamin C (Multi-Delyn Liquid) 5 ml GT DAILY [facility] Last Admin: 05/28/18 09:09 Dose: 5 ml Mupirocin (Bactroban Ointment) 0 gm TOP DAILY [facility] Last Admin: 05/28/18 10:00 Dose: 1 dose Pantoprazole Sodium (Protonix Susp) 40 mg PEG 1000 [facility] Last Admin: 05/28/18 09:30 Dose: 40 mg Quetiapine Fumarate (Seroquel) 25 mg PO DAILY [facility] Last Admin: 05/28/18 09:28 Dose: 25 mg Tamsulosin HCl (Flomax) 0.4 mg PEG DAILY [facility] Last Admin: 05/28/18 09:28 Dose: 0.4 mg Valproate Sodium (Depakene Oral Soln) 1,000 mg GT Q12H [facility] Last Admin: 05/28/18 07:41 Dose: 1,000 mg Zinc Sulfate (Zinc Sulfate 220 Mg Cap) 220 mg PO DAILY [facility] Last Admin: 05/28/18 09:11 Dose: 220 mg - Labs Labs: 05/27/18 06:15 05/28/18 07:35 Assessment and Plan (1) Fever Assessment & Plan: BLOOD CULTURES 05/22/18 -VE TO DATE. LT LEG WOUND CULTURE -STAPH AUREUS. + MRSA R-CLINDA, S -VANCO,TETRA.LINIZOLID ON iv DAPTOMYCIN 6 MG/KG iv PIGGYBACK EVERY 24 HOURLY 05/25/18 CONTINUE IV AZACTAM 1GM IVPB Q 12HRLY. OFF IV VANCOMYCIN ( ? DRUG FEVER ) Status: Acute (2) UTI (urinary tract infection) Assessment & Plan: URINE CULTURES 05/22/18 -VE GROWTH OFF IV FLUCONAZOLE. Status: Acute (3) Altered mental status Status: Acute (4) Hyperglycemia Status: Acute (5) Malfunction of percutaneous endoscopic gastrostomy (PEG) tube Status: Acute (6) Diabetes Status: Acute (7) Status post tracheostomy Assessment & Plan: tracheostomy care. Status: Acute
--- NOTE | 2018-05-28 19:21 | PN ---
DATE: 05/28/2018 SUBJECTIVE: The patient is currently sedated. He is on the ventilator. No reported ventricular tachycardia. PHYSICAL EXAMINATION: VITAL SIGNS: Blood pressure 132/61, heart rate 88, respirations 20, and temperature 97.9. HEENT: Pale conjunctivae. CHEST: Diminished breath sounds over the bases. HEART: S1 and S2 regular. EXTREMITIES: Left heel ulcer and atrophic changes in the right toes. LABORATORY DATA: Today's SMA-7 is within normal limits except for glucose of 151 and BUN of 25. Calcium is within normal, 8.2. ASSESSMENT: 1. Respiratory failure. 2. History of cerebrovascular accident status post gastrostomy tube feeding and tracheostomy. 3. Anemia. 4. Hypertension. 5. . 6. Left heel ulcer with methicillin resistant Staphylococcus aureus infection. 7. Peripheral vascular disease. RECOMMENDATIONS: Continue aspirin 81 mg once a day, Azactam 1 gm every 12 hours, Coreg 12.5 mg twice a day, Cozaar 50 mg twice a day, daptomycin 420 mg intravenously daily, valproate sodium at 1 gm twice a day via gastrostomy tube, Feosol mg daily, Haldol 2 mg p.o. every 8 hours p.r.n., Keppra 500 mg twice a day via gastrostomy tube, Seroquel 25 mg daily. Luke Gibbs MD
--- NOTE | 2018-05-28 23:57 | CP.PCM.PN ---
Subjective - Date & Time of Evaluation Date of Evaluation: 05/28/18 Time of Evaluation: 18:00 - Subjective Subjective: Pt seen and examined at bedside Objective - Vital Signs/Intake and Output Vital Signs (last 24 hours): Temp Pulse Resp BP Pulse Ox 98.4 F 80 16 137/68 100 05/28/18 16:00 05/28/18 18:00 05/28/18 16:00 05/28/18 18:19 05/28/18 16:00 Intake and Output: 05/28/18 05/29/18 18:59 06:59 Intake Total 1800 Output Total 500 Balance 1300 - Medications Medications: Current Medications Ascorbic Acid (Vitamin C 500 Mg Tab) 500 mg PO DAILY [facility] Last Admin: 05/28/18 09:15 Dose: 500 mg Aspirin (Aspirin Chewable) 81 mg GT DAILY [facility] Last Admin: 05/28/18 09:11 Dose: 81 mg Carvedilol (Coreg) 12.5 mg GT BID [facility] Last Admin: 05/28/18 18:19 Dose: 12.5 mg Enoxaparin Sodium (Lovenox) 40 mg SC DAILY [facility] Last Admin: 05/28/18 09:09 Dose: 40 mg Ferrous Sulfate (Feosol Liq) 300 mg PO DAILY [facility] Last Admin: 05/28/18 09:08 Dose: 300 mg Haloperidol (Haldol) 2 mg PO Q8 [facility] Last Admin: 05/28/18 21:30 Dose: 2 mg Aztreonam 1 gm/ Sodium (Chloride) 100 mls @ 100 mls/hr IVPB Q12H [facility] PRN Reason: Protocol Last Admin: 05/28/18 23:31 Dose: 100 mls/hr Daptomycin 420 mg/ Sodium (Chloride) 100 mls @ 100 mls/hr IV Q24H [facility] Stop: 05/30/18 21:31 Last Admin: 05/28/18 21:28 Dose: 100 mls/hr Insulin Aspart (Novolog) 0 unit SC Q6 [facility] PRN Reason: Protocol Last Admin: 05/28/18 18:18 Dose: 4 units Insulin Detemir (Levemir) 20 unit SC Q12 [facility] Last Admin: 05/28/18 21:30 Dose: 20 u Levetiracetam (Keppra) 500 mg GT Q12H [facility] Last Admin: 05/28/18 18:18 Dose: 500 mg Lorazepam (Ativan) 1 mg IVP Q6H [facility] PRN Reason: Agitation Last Admin: 05/26/18 03:54 Dose: 1 mg Losartan Potassium (Cozaar) 50 mg PEG BID [facility] Last Admin: 05/28/18 18:18 Dose: 50 mg Multivitamins/Vitamin C (Multi-Delyn Liquid) 5 ml GT DAILY [facility] Last Admin: 05/28/18 09:09 Dose: 5 ml Mupirocin (Bactroban Ointment) 0 gm TOP DAILY [facility] Last Admin: 05/28/18 10:00 Dose: 1 dose Pantoprazole Sodium (Protonix Susp) 40 mg PEG 1000 [facility] Last Admin: 05/28/18 09:30 Dose: 40 mg Quetiapine Fumarate (Seroquel) 25 mg PO DAILY [facility] Last Admin: 05/28/18 09:28 Dose: 25 mg Tamsulosin HCl (Flomax) 0.4 mg PEG DAILY [facility] Last Admin: 05/28/18 09:28 Dose: 0.4 mg Valproate Sodium (Depakene Oral Soln) 1,000 mg GT Q12H [facility] Last Admin: 05/28/18 19:05 Dose: 1,000 mg Zinc Sulfate (Zinc Sulfate 220 Mg Cap) 220 mg PO DAILY [facility] Last Admin: 05/28/18 09:11 Dose: 220 mg - Labs Labs: 05/27/18 06:15 05/28/18 07:35 Assessment and Plan (1) CKD (chronic kidney disease) Status: Acute (2) COPD (chronic obstructive pulmonary disease) Status: Acute (3) Dehydration Status: Acute (4) Diabetes Status: Acute (5) Ischemic encephalopathy Status: Acute (6) Sepsis Status: Acute (7) Status post tracheostomy Status: Acute
[2018-05-29] MEDS: levETIRAcetam 100 mg/ml (5ml) Oral Syringe GT SCH ×2 (06:12→18:03)
[2018-05-29] MEDS: (Novolog) Insulin Aspart, Recombinant 100 u/ml 10 ml vial SC SCH ×4 (06:13→18:03)
[2018-05-29] MEDS: Valproic Acid 250 mg/5 ml UD Cup GT SCH ×2 (07:52→20:21)
[2018-05-29] MEDS: Ferrous Sulfate 300 mg/5 mL Liq UD PO SCH (09:14)
[2018-05-29] MEDS: Multiple Vitamins Oral Solution GT SCH (09:14)
[2018-05-29] MEDS: Enoxaparin 40 mg Syringe SC SCH (09:14)
[2018-05-29] MEDS: Pantoprazole 40 mg Susp UD PEG SCH (09:14)
[2018-05-29] MEDS: Insulin Detemir 100 units/ml Vial (Levemir) SC SCH ×2 (09:15→21:27)
[2018-05-29] MEDS: Aztreonam 1 GM in Sodium Chloride 0.9% 100 ML IVPB SCH (11:41)
--- NOTE | 2018-05-29 17:01 | CP.PCM.PN ---
Subjective - Date & Time of Evaluation Date of Evaluation: 05/29/18 Time of Evaluation: 16:58 - Subjective Subjective: Podiatry Progress note for attending Dr. Diaz 68 year old male was seen and evaluated at bedside in ICU for bilateral LE wounds. No history could be obtained from the patient. Objective - Vital Signs/Intake and Output Vital Signs (last 24 hours): Temp Pulse Resp BP Pulse Ox 99.1 F 0 L 21 107/43 L 100 05/29/18 16:00 05/29/18 16:00 05/29/18 16:00 05/29/18 16:00 05/29/18 16:00 - Medications Medications: Current Medications Ascorbic Acid (Vitamin C 500 Mg Tab) 500 mg PO DAILY [facility] Last Admin: 05/29/18 09:13 Dose: 500 mg Aspirin (Aspirin Chewable) 81 mg GT DAILY [facility] Last Admin: 05/29/18 09:13 Dose: 81 mg Carvedilol (Coreg) 12.5 mg GT BID [facility] Last Admin: 05/29/18 09:13 Dose: 12.5 mg Enoxaparin Sodium (Lovenox) 40 mg SC DAILY [facility] Last Admin: 05/29/18 09:14 Dose: 40 mg Ferrous Sulfate (Feosol Liq) 300 mg PO DAILY [facility] Last Admin: 05/29/18 09:14 Dose: 300 mg Haloperidol (Haldol) 2 mg PO Q8 [facility] Last Admin: 05/29/18 13:41 Dose: 2 mg Aztreonam 1 gm/ Sodium (Chloride) 100 mls @ 100 mls/hr IVPB Q12H [facility] PRN Reason: Protocol Last Admin: 05/29/18 11:41 Dose: 100 mls/hr Daptomycin 420 mg/ Sodium (Chloride) 100 mls @ 100 mls/hr IV Q24H [facility] Stop: 05/30/18 21:31 Last Admin: 05/28/18 21:28 Dose: 100 mls/hr Insulin Aspart (Novolog) 0 unit SC Q6 [facility] PRN Reason: Protocol Last Admin: 05/29/18 11:42 Dose: 4 units Insulin Detemir (Levemir) 20 unit SC Q12 [facility] Last Admin: 05/29/18 09:15 Dose: 20 u Levetiracetam (Keppra) 500 mg GT Q12H [facility] Last Admin: 05/29/18 06:12 Dose: 500 mg Lorazepam (Ativan) 1 mg IVP Q6H [facility] PRN Reason: Agitation Last Admin: 05/26/18 03:54 Dose: 1 mg Losartan Potassium (Cozaar) 50 mg PEG BID [facility] Last Admin: 05/29/18 09:13 Dose: 50 mg Multivitamins/Vitamin C (Multi-Delyn Liquid) 5 ml GT DAILY [facility] Last Admin: 05/29/18 09:14 Dose: 5 ml Mupirocin (Bactroban Ointment) 0 gm TOP DAILY [facility] Last Admin: 05/29/18 09:16 Dose: 1 dose Pantoprazole Sodium (Protonix Susp) 40 mg PEG 1000 [facility] Last Admin: 05/29/18 09:14 Dose: 40 mg Quetiapine Fumarate (Seroquel) 25 mg PO DAILY [facility] Last Admin: 05/29/18 09:13 Dose: 25 mg Tamsulosin HCl (Flomax) 0.4 mg PEG DAILY [facility] Last Admin: 05/29/18 09:14 Dose: 0.4 mg Valproate Sodium (Depakene Oral Soln) 1,000 mg GT Q12H [facility] Last Admin: 05/29/18 07:52 Dose: 1,000 mg Zinc Sulfate (Zinc Sulfate 220 Mg Cap) 220 mg PO DAILY [facility] Last Admin: 05/29/18 09:14 Dose: 220 mg - Labs Labs: 05/27/18 06:15 05/28/18 07:35 - Constitutional Appears: Well, Non-toxic, No Acute Distress - Extremities Exam Additional comments: Bilateral LE exam VASC: DP/PT 1/4, Cap refill time: < 3 sec to all digits, Temp gradient: warm to cool from proximal to distal, no pitting or non-pitting edema noted NEURO: Protective sensation grossly diminished. DERM: Hyperpigmented epidermal lysis with ischemic wound at the dorsum of the 2nd digit at the level of PIPJ with dry gangrene, no active drainage, no malodor , no purulence, no tunneling, no tracking, no agnes-wound erythema, no clinical suspicion of active infection, Wound measuring approx 1 cm x 1 cm x 0.3 cm noted superior to lateral malleolus, wound bed appears to have 50% fibrotic and 50% grannular tissue, no active drainage, no mal-odor, no tunneling, no tracking , no purulence. MSK: no pain on palpation of the wound site - Neurological Exam Neurological Exam: Alert, Awake, Oriented x3 - Psychiatric Exam Psychiatric exam: Normal Affect, Normal Mood Assessment and Plan - Assessment and Plan (Free Text) Assessment: 68 year old male patient was evaluated for bilateral LE ulcers Plan: Patient seen and evaluated Discussed patient in details with attending Dr. Diaz Labs, vitals and charts reviewed - afebrile, no leukocytosis Wound are stable at this time Dressing applied using betadine, DSD on the R foot ulcer and bactroban and DSD for the L ankle ulcer No surgical intervention planned this time from podiatry standpoint. Podiatry to follow patient while in-house
--- NOTE | 2018-05-29 20:26 | PN ---
DATE: 05/29/2018 SUBJECTIVE: The patient is back on CPAP. He is not restless today. No reported arrhythmia. PHYSICAL EXAMINATION: VITAL SIGNS: Blood pressure 142/61, heart rate 76, temperature 98.5, respirations 18. HEENT: Normocephalic. CHEST: Diminished breath sounds over the bases. HEART: S1 and S2 regular. EXTREMITIES: Dressings applied to both feet. ASSESSMENT: 1. History of cerebrovascular accident with subsequent gastrostomy feeding tube placement and tracheostomy. 2. Peripheral vascular disease with left heel ulceration and trophic changes of the right toes. 3. Respiratory failure. 4. Hypertension. 5. Improved sinus bradycardia. 6. Methicillin resistant Staphylococcus aureus infection of the left heel. RECOMMENDATIONS: Continue aspirin 81 mg daily via gastrostomy tube, Ativan 1 mg intravenously every 6 hours, Azactam at 1 gm intravenously every 12 hours, Coreg 12.5 mg twice a day, Cozaar 50 mg once a day, daptomycin 420 mg intravenously daily, Depakene oral solution at 1 gm twice a day, Flomax 0.4 mg daily, Keppra 500 mg twice a day, Lovenox 40 mg subcutaneously once a day, Seroquel 25 mg daily. Luke Gibbs MD
--- NOTE | 2018-05-29 23:57 | CP.PCM.PN ---
Subjective - Date & Time of Evaluation Date of Evaluation: 05/29/18 Time of Evaluation: 23:57 - Subjective Subjective: AFEBRILE, DROWSY OPENS EYES TO STIMULI, TRACH SECRETIONS MINIMAL, PEG FEEDINGS ONGOING Barber IN PLACE.. BILATERAL FOOT DRESSING IN PLACE. ROS; NA BECAUSE OF ALTERED MENTAL STATUS. Objective - Vital Signs/Intake and Output Vital Signs (last 24 hours): Temp Pulse Resp BP Pulse Ox 98 F 77 9 L 127/58 L 100 05/29/18 20:00 05/29/18 20:00 05/29/18 20:00 05/29/18 20:00 05/29/18 20:00 Intake and Output: 05/29/18 05/30/18 18:59 06:59 Intake Total 1450 Output Total 800 Balance 650 - Medications Medications: Current Medications Ascorbic Acid (Vitamin C 500 Mg Tab) 500 mg PO DAILY [facility] Last Admin: 05/29/18 09:13 Dose: 500 mg Aspirin (Aspirin Chewable) 81 mg GT DAILY [facility] Last Admin: 05/29/18 09:13 Dose: 81 mg Carvedilol (Coreg) 12.5 mg GT BID [facility] Last Admin: 05/29/18 18:03 Dose: 12.5 mg Enoxaparin Sodium (Lovenox) 40 mg SC DAILY [facility] Last Admin: 05/29/18 09:14 Dose: 40 mg Ferrous Sulfate (Feosol Liq) 300 mg PO DAILY [facility] Last Admin: 05/29/18 09:14 Dose: 300 mg Haloperidol (Haldol) 2 mg PO Q8 [facility] Last Admin: 05/29/18 21:27 Dose: 2 mg Aztreonam 1 gm/ Sodium (Chloride) 100 mls @ 100 mls/hr IVPB Q12H [facility] PRN Reason: Protocol Last Admin: 05/29/18 11:41 Dose: 100 mls/hr Daptomycin 420 mg/ Sodium (Chloride) 100 mls @ 100 mls/hr IV Q24H [facility] Stop: 05/30/18 21:31 Last Admin: 05/29/18 21:27 Dose: 100 mls/hr Insulin Aspart (Novolog) 0 unit SC Q6 [facility] PRN Reason: Protocol Last Admin: 05/29/18 18:03 Dose: 4 units Insulin Detemir (Levemir) 20 unit SC Q12 [facility] Last Admin: 05/29/18 21:27 Dose: 20 u Levetiracetam (Keppra) 500 mg GT Q12H [facility] Last Admin: 05/29/18 18:03 Dose: 500 mg Losartan Potassium (Cozaar) 50 mg PEG BID [facility] Last Admin: 05/29/18 18:03 Dose: 50 mg Multivitamins/Vitamin C (Multi-Delyn Liquid) 5 ml GT DAILY [facility] Last Admin: 05/29/18 09:14 Dose: 5 ml Mupirocin (Bactroban Ointment) 0 gm TOP DAILY [facility] Last Admin: 05/29/18 09:16 Dose: 1 dose Pantoprazole Sodium (Protonix Susp) 40 mg PEG 1000 [facility] Last Admin: 05/29/18 09:14 Dose: 40 mg Quetiapine Fumarate (Seroquel) 25 mg PO DAILY [facility] Last Admin: 05/29/18 09:13 Dose: 25 mg Tamsulosin HCl (Flomax) 0.4 mg PEG DAILY [facility] Last Admin: 05/29/18 09:14 Dose: 0.4 mg Valproate Sodium (Depakene Oral Soln) 1,000 mg GT Q12H [facility] Last Admin: 05/29/18 20:21 Dose: 1,000 mg Zinc Sulfate (Zinc Sulfate 220 Mg Cap) 220 mg PO DAILY [facility] Last Admin: 05/29/18 09:14 Dose: 220 mg - Labs Labs: 05/27/18 06:15 05/28/18 07:35 - Constitutional Appears: No Acute Distress, Confused - Eye Exam Eye Exam: PERRL - ENT Exam ENT Exam: Mucous Membranes Moist - Neck Exam Neck Exam: Normal Inspection - Respiratory Exam Respiratory Exam: Decreased Breath Sounds - Cardiovascular Exam Cardiovascular Exam: REGULAR RHYTHM, +S1, +S2 - GI/Abdominal Exam GI & Abdominal Exam: Soft, Normal Bowel Sounds - Extremities Exam Extremities Exam: Pedal Edema (b/l foot dressings in place.). absent: Calf Tenderness - Neurological Exam Neurological Exam: Altered - Psychiatric Exam Psychiatric exam: Flat Affect - Skin Skin Exam: Normal Color, Warm Assessment and Plan (1) Fever Assessment & Plan: BLOOD CULTURES 05/22/18 -VE TO DATE. LT LEG WOUND CULTURE -STAPH AUREUS. + MRSA R-CLINDA, S -VANCO,TETRA.LINIZOLID ON iv DAPTOMYCIN 6 MG/KG iv PIGGYBACK EVERY 24 HOURLY 05/25/18 CONTINUE IV AZACTAM 1GM IVPB Q 12HRLY. OFF IV VANCOMYCIN ( ? DRUG FEVER ) Status: Acute (2) UTI (urinary tract infection) Assessment & Plan: URINE CULTURES 05/22/18 -VE GROWTH OFF IV FLUCONAZOLE. Status: Acute (3) Altered mental status Status: Acute (4) Hyperglycemia Status: Acute (5) Malfunction of percutaneous endoscopic gastrostomy (PEG) tube Assessment & Plan: PEG FUNCTIONING. ONGOING peg FEEDINGS. Status: Acute (6) Diabetes Status: Acute (7) Status post tracheostomy Assessment & Plan: tracheostomy care Status: Acute
[2018-05-30] MEDS: (Novolog) Insulin Aspart, Recombinant 100 u/ml 10 ml vial SC SCH ×2 (00:06→05:50)
[2018-05-30] MEDS: Aztreonam 1 GM in Sodium Chloride 0.9% 100 ML IVPB SCH (00:07)
--- NOTE | 2018-05-30 00:11 | CP.PCM.PN ---
Subjective - Date & Time of Evaluation Date of Evaluation: 05/29/18 Time of Evaluation: 18:00 - Subjective Subjective: pt seen & examined Objective - Vital Signs/Intake and Output Vital Signs (last 24 hours): Temp Pulse Resp BP Pulse Ox 98 F 77 9 L 127/58 L 100 05/29/18 20:00 05/29/18 20:00 05/29/18 20:00 05/29/18 20:00 05/29/18 20:00 Intake and Output: 05/29/18 05/30/18 18:59 06:59 Intake Total 1450 Output Total 800 Balance 650 - Medications Medications: Current Medications Ascorbic Acid (Vitamin C 500 Mg Tab) 500 mg PO DAILY [facility] Last Admin: 05/29/18 09:13 Dose: 500 mg Aspirin (Aspirin Chewable) 81 mg GT DAILY [facility] Last Admin: 05/29/18 09:13 Dose: 81 mg Carvedilol (Coreg) 12.5 mg GT BID [facility] Last Admin: 05/29/18 18:03 Dose: 12.5 mg Enoxaparin Sodium (Lovenox) 40 mg SC DAILY [facility] Last Admin: 05/29/18 09:14 Dose: 40 mg Ferrous Sulfate (Feosol Liq) 300 mg PO DAILY [facility] Last Admin: 05/29/18 09:14 Dose: 300 mg Haloperidol (Haldol) 2 mg PO Q8 [facility] Last Admin: 05/29/18 21:27 Dose: 2 mg Aztreonam 1 gm/ Sodium (Chloride) 100 mls @ 100 mls/hr IVPB Q12H [facility] PRN Reason: Protocol Last Admin: 05/30/18 00:07 Dose: 100 mls/hr Daptomycin 420 mg/ Sodium (Chloride) 100 mls @ 100 mls/hr IV Q24H [facility] Stop: 05/30/18 21:31 Last Admin: 05/29/18 21:27 Dose: 100 mls/hr Insulin Aspart (Novolog) 0 unit SC Q6 [facility] PRN Reason: Protocol Last Admin: 05/30/18 00:06 Dose: 4 units Insulin Detemir (Levemir) 20 unit SC Q12 [facility] Last Admin: 05/29/18 21:27 Dose: 20 u Levetiracetam (Keppra) 500 mg GT Q12H [facility] Last Admin: 05/29/18 18:03 Dose: 500 mg Losartan Potassium (Cozaar) 50 mg PEG BID [facility] Last Admin: 05/29/18 18:03 Dose: 50 mg Multivitamins/Vitamin C (Multi-Delyn Liquid) 5 ml GT DAILY [facility] Last Admin: 05/29/18 09:14 Dose: 5 ml Mupirocin (Bactroban Ointment) 0 gm TOP DAILY [facility] Last Admin: 05/29/18 09:16 Dose: 1 dose Pantoprazole Sodium (Protonix Susp) 40 mg PEG 1000 [facility] Last Admin: 05/29/18 09:14 Dose: 40 mg Quetiapine Fumarate (Seroquel) 25 mg PO DAILY [facility] Last Admin: 05/29/18 09:13 Dose: 25 mg Tamsulosin HCl (Flomax) 0.4 mg PEG DAILY [facility] Last Admin: 05/29/18 09:14 Dose: 0.4 mg Valproate Sodium (Depakene Oral Soln) 1,000 mg GT Q12H [facility] Last Admin: 05/29/18 20:21 Dose: 1,000 mg Zinc Sulfate (Zinc Sulfate 220 Mg Cap) 220 mg PO DAILY [facility] Last Admin: 05/29/18 09:14 Dose: 220 mg - Labs Labs: 05/27/18 06:15 05/28/18 07:35 Assessment and Plan (1) CKD (chronic kidney disease) Status: Acute (2) COPD (chronic obstructive pulmonary disease) Status: Acute (3) Dehydration Status: Acute (4) Diabetes Status: Acute (5) Ischemic encephalopathy Status: Acute (6) Sepsis Status: Acute (7) Status post tracheostomy Status: Acute
[2018-05-30] MEDS: levETIRAcetam 100 mg/ml (5ml) Oral Syringe GT SCH (05:47)
[2018-05-30 05:55] VITALS: RESP 16; O2SAT 100
[2018-05-30] MEDS: Valproic Acid 250 mg/5 ml UD Cup GT SCH (08:50)
[2018-05-30] MEDS: Ferrous Sulfate 300 mg/5 mL Liq UD PO SCH (09:43)
[2018-05-30] MEDS: Pantoprazole 40 mg Susp UD PEG SCH (09:44)
[2018-05-30] MEDS: Enoxaparin 40 mg Syringe SC SCH (09:44)
[2018-05-30] MEDS: Multiple Vitamins Oral Solution GT SCH (09:44)
[2018-05-30] MEDS: Insulin Detemir 100 units/ml Vial (Levemir) SC SCH (09:44)
[2018-05-30 09:45] VITALS: BP 126/58
[2018-05-30 10:18] VITALS: TEMP 99
[2018-05-30 10:26] VITALS: PULSE 89
--- NOTE | 2018-05-30 22:16 | CP.PCM.DIS ---
Provider - Provider Date of Admission: 05/18/18 16:20 Attending physician: Arash Rose MD Time Spent in preparation of Discharge (in minutes): 45 Diagnosis - Discharge Diagnosis (1) CKD (chronic kidney disease) Status: Acute (2) COPD (chronic obstructive pulmonary disease) Status: Acute (3) Dehydration Status: Acute (4) Diabetes Status: Acute (5) Ischemic encephalopathy Status: Acute (6) Sepsis Status: Acute (7) Status post tracheostomy Status: Acute Hospital Course - Lab Results Lab Results: Micro Results 05/22/18 03:07 Blood Blood Culture - Final NO GROWTH AFTER 5 DAYS 05/22/18 03:07 Blood Gram Stain - Final TEST NOT PERFORMED 05/22/18 03:07 Blood Blood Culture - Final NO GROWTH AFTER 5 DAYS 05/22/18 03:07 Blood Gram Stain - Final TEST NOT PERFORMED 05/24/18 11:23 Leg - Left Gram Stain - Final 05/24/18 11:23 Leg - Left Wound Culture - Final Methicillin Resistant S Aureus 05/22/18 03:07 Sputum Induced Gram Stain - Final 05/22/18 03:07 Sputum Induced Sputum Culture - Final NORMAL ORAL HALEY 05/18/18 21:16 Blood-Venous Blood Culture - Final NO GROWTH AFTER 5 DAYS 05/18/18 21:16 Blood-Venous Gram Stain - Final TEST NOT PERFORMED 05/18/18 21:46 Blood-Venous Blood Culture - Final NO GROWTH AFTER 5 DAYS 05/18/18 21:46 Blood-Venous Gram Stain - Final TEST NOT PERFORMED 05/22/18 02:41 Urine,Catheterized Urine Culture - Final No Growth (<1,000 CFU/ML) 05/20/18 20:13 Urine,Clean Catch Urine Culture - Final No Growth (<1,000 CFU/ML) 05/19/18 20:05 Urine Urine Culture - Final 10-50,000 CFU/ML. MULTIPLE SPECIES. PROBABLE CONTAMINATION. 05/18/18 22:46 Trachasp Gram Stain - Final 05/18/18 22:46 Trachasp Sputum Culture - Final NORMAL ORAL HALEY 05/18/18 21:18 Nose MRSA Culture (Admit) - Final MRSA NOT DETECTED Most Recent Lab Values WBC 6.6 K/uL (4.8-10.8) 05/27/18 06:15 RBC 3.53 Mil/uL (4.40-5.90) L 05/27/18 06:15 Hgb 10.5 g/dL (12.0-18.0) L 05/27/18 06:15 Hct 32.7 % (35.0-51.0) L 05/27/18 06:15 MCV 92.6 fL (80.0-94.0) 05/27/18 06:15 MCH 29.7 pg (27.0-31.0) 05/27/18 06:15 MCHC 32.1 g/dL (33.0-37.0) L 05/27/18 06:15 RDW 14.0 % (11.5-14.5) 05/27/18 06:15 Plt Count 176 K/uL (130-400) 05/27/18 06:15 MPV 12.0 fL (7.2-11.7) H 05/27/18 06:15 Neut % (Auto) 59.8 % (50.0-75.0) 05/27/18 06:15 Lymph % (Auto) 29.3 % (20.0-40.0) 05/27/18 06:15 Leslie % (Auto) 7.2 % (0.0-10.0) 05/27/18 06:15 Eos % (Auto) 3.4 % (0.0-4.0) 05/27/18 06:15 Baso % (Auto) 0.3 % (0.0-2.0) 05/27/18 06:15 Neut # (Auto) 3.9 K/uL (1.8-7.0) 05/27/18 06:15 Lymph # (Auto) 1.9 K/uL (1.0-4.3) 05/27/18 06:15 Leslie # (Auto) 0.5 K/uL (0.0-0.8) 05/27/18 06:15 Eos # (Auto) 0.2 K/uL (0.0-0.7) 05/27/18 06:15 Baso # (Auto) 0.0 K/uL (0.0-0.2) 05/27/18 06:15 Puncture Site Rb 05/26/18 05:23 pCO2 40 mm/Hg (35-45) 05/26/18 05:23 pO2 87 mm/Hg (80-100) 05/26/18 05:23 HCO3 28.2 mmol/L (21-28) H 05/26/18 05:23 ABG pH 7.46 (7.35-7.45) H 05/26/18 05:23 ABG Total CO2 29.6 mmol/L (22-28) H 05/26/18 05:23 ABG O2 Saturation 98.7 % (95-98) H 05/26/18 05:23 ABG Base Excess 4.2 mmol/L (-2.0-3.0) H 05/26/18 05:23 ABG Hemoglobin 10.5 g/dL (11.7-17.4) L 05/24/18 05:23 ABG Carboxyhemoglobin 1.6 % (0.5-1.5) H 05/24/18 05:23 POC ABG HHb (Measured) 0.7 % (0.0-5.0) 05/24/18 05:23 ABG Methemoglobin 0.9 % (0.0-3.0) 05/24/18 05:23 Jamey Test Na 05/26/18 05:23 ABG Potassium 3.6 mmol/L (3.6-5.2) 05/26/18 05:23 A-a O2 Difference 148.0 mm/Hg 05/26/18 05:23 Respiratory Index 1.7 05/26/18 05:23 Hgb O2 Saturation 96.8 % (95.0-98.0) 05/24/18 05:23 Sodium 146.0 mmol/l (132-148) 05/26/18 05:23 Chloride 115.0 mmol/L (98-107) H 05/26/18 05:23 Glucose 211 mg/dl (75-110) H 05/26/18 05:23 Lactate 1.5 mmol/L (0.7-2.1) 05/26/18 05:23 Vent Mode Cpap 05/26/18 05:23 Mechanical Rate 18 05/22/18 05:30 FiO2 40.0 % 05/26/18 05:23 Tidal Volume 500 05/22/18 05:30 PEEP 5 05/24/18 05:23 Pressure Support 12 05/26/18 05:23 CPAP 5 05/26/18 05:23 Sodium 144 mmol/L (132-148) 05/28/18 07:35 Potassium 3.7 mmol/L (3.6-5.2) 05/28/18 07:35 Chloride 107 mmol/L (98-107) 05/28/18 07:35 Carbon Dioxide 30 mmol/L (22-30) 05/28/18 07:35 Anion Gap 11 (10-20) 05/28/18 07:35 BUN 25 mg/dL (9-20) H 05/28/18 07:35 Creatinine 0.8 mg/dL (0.8-1.5) 05/28/18 07:35 Est GFR ( Amer) > 60 05/28/18 07:35 Est GFR (Non-Af Amer) > 60 05/28/18 07:35 POC Glucose (mg/dL) 142 mg/dL (65-110) H 05/30/18 05:49 Random Glucose 151 mg/dL (75-110) H 05/28/18 07:35 Lactic Acid 2.3 mmol/L (0.7-2.1) H 05/19/18 12:57 Calcium 8.4 mg/dl (8.6-10.4) L 05/28/18 07:35 Phosphorus 3.3 mg/dL (2.5-4.5) 05/27/18 06:14 Magnesium 2.0 mg/dL (1.6-2.3) 05/27/18 06:14 Total Bilirubin 0.3 mg/dL (0.2-1.3) 05/27/18 06:14 AST 23 U/L (17-59) 05/27/18 06:14 ALT 19 U/L (21-72) L D 05/27/18 06:14 Alkaline Phosphatase 97 U/L (38-126) 05/27/18 06:14 Ammonia < 9 umol/L (9-33) L 05/27/18 06:14 Troponin I 0.0500 ng/mL (0.00-0.120) 05/19/18 06:33 Total Protein 6.1 g/dL (6.3-8.3) L 05/27/18 06:14 Albumin 2.9 g/dL (3.5-5.0) L 05/27/18 06:14 Globulin 3.2 gm/dL (2.2-3.9) 05/27/18 06:14 Albumin/Globulin Ratio 0.9 (1.0-2.1) L 05/27/18 06:14 Procalcitonin < 0.05 NG/ML (0.19-0.49) L 05/18/18 21:16 Arterial Blood Potassium 3.6 mmol/L (3.6-5.2) 05/26/18 05:23 Urine Color Yellow (YELLOW) 05/22/18 02:41 Urine Clarity Hazy (Clear) 05/22/18 02:41 Urine pH 6.0 (5.0-8.0) 05/22/18 02:41 Ur Specific Niles 1.022 (1.003-1.030) 05/22/18 02:41 Urine Protein 2+ mg/dL (NEGATIVE) H 05/22/18 02:41 Urine Glucose (UA) 3+ mg/dL (Normal) H 05/22/18 02:41 Urine Ketones 1+ mg/dL (NEGATIVE) H 05/22/18 02:41 Urine Blood 2+ (NEGATIVE) H 05/22/18 02:41 Urine Nitrate Negative (NEGATIVE) 05/22/18 02:41 Urine Bilirubin Negative (NEGATIVE) 05/22/18 02:41 Urine Urobilinogen Normal mg/dL (0.2-1.0) 05/22/18 02:41 Ur Leukocyte Esterase 3+ Minh/uL (Negative) H 05/22/18 02:41 Urine WBC (Auto) 484 /hpf (0-5) H 05/22/18 02:41 Urine RBC (Auto) 72 /hpf (0-3) H 05/22/18 02:41 Urine WBC Clumps (Auto) Many /hpf (NONE) H 05/19/18 08:03 Ur Squamous Epith Cells 1 /hpf (0-5) 05/19/18 08:03 Urine Bacteria Rare (<OCC) 05/22/18 02:41 Hyaline Casts 3-5 /lpf (0-2) H 05/19/18 08:03 Urine Yeast (Budding) Few /hpf (NEGATIVE) H 05/22/18 02:41 Butalbital Confirm TEST NOT PERFORMED 05/19/18 00:46 Opiates (GC/MS) negative 05/19/18 00:46 Ur Opiates (GC/MS) Negative 300 (Negative) 05/18/18 09:45 Codeine Confirmation TEST NOT PERFORMED 05/19/18 00:46 Morphine Confirm TEST NOT PERFORMED 05/19/18 00:46 Hydrocodone Confirm TEST NOT PERFORMED 05/19/18 00:46 Oxycodone Screen negative 05/22/18 09:58 Oxycodone Confirm TEST NOT PERFORMED 05/19/18 00:46 Ur Oxycodone GC/MS TNP 05/19/18 00:46 Ur Oxycodone Comment See note 05/22/18 09:58 Methadone (GC/MS) negative 05/19/18 00:46 Methadone Confirm TEST NOT PERFORMED 05/19/18 00:46 Ur Methadone, Qual Negative 300 (Negative) 05/18/18 09:45 Free Hydromorphone Conf TEST NOT PERFORMED 05/19/18 00:46 Propoxyphenes negative 05/19/18 00:46 Norpropoxyphene TEST NOT PERFORMED 05/19/18 00:46 Urine Propoxyphene Negative 300 (Negative) 05/18/18 09:45 Ur Propoxyphene Confrm (()) 05/18/18 09:45 Methaqualone Negative 300 (Negative) 05/18/18 09:45 U Methaqualone Confirm (()) 05/18/18 09:45 Barbiturates negative 05/19/18 00:46 Ur Barbiturates, Qual Negative 300 (Negative) 05/18/18 09:45 Valproic Acid 45.0 ug/mL (50.0-100.0) L 05/27/18 06:14 Levetiracetam 10.5 mcg/mL 05/18/18 21:16 Phencyclidine (PCP) negative 05/19/18 00:46 Phencyclidine (GC/MS) TEST NOT PERFORMED 05/19/18 00:46 Ur Phencyclidine (PCP) Negative 25 (Negative) 05/18/18 09:45 Urine PCP Confirm (()) 05/18/18 09:45 Amphetamines negative 05/19/18 00:46 Amphetamines Confirm TEST NOT PERFORMED 05/19/18 00:46 Ur Amphetamines Screen Negative 1000 (Negative) 05/18/18 09:45 Methamphetamine Confirm TEST NOT PERFORMED 05/19/18 00:46 U Methamphetamin GC/MS (()) 05/18/18 09:45 Methylenedioxyamph MDA TEST NOT PERFORMED 05/19/18 00:46 MDMA TEST NOT PERFORMED 05/19/18 00:46 Amobarbital Confirm TEST NOT PERFORMED 05/19/18 00:46 Butabarbital TEST NOT PERFORMED 05/19/18 00:46 Pentobarbital Confirm TEST NOT PERFORMED 05/19/18 00:46 Phenobarbital Confirm TEST NOT PERFORMED 05/19/18 00:46 U Phenobarbital Confirm (()) 05/18/18 09:45 Secobarbital Confirm TEST NOT PERFORMED 05/19/18 00:46 Alprazolam Confirm TEST NOT PERFORMED 05/19/18 00:46 U [id number] Conf (()) 05/18/18 09:45 Benzodiazepines negative 05/19/18 00:46 U Benzodiazepines Qual Negative 300 (Negative) 05/18/18 09:45 Nordiazepam Confirm TEST NOT PERFORMED 05/19/18 00:46 Desalkylfluraze Cnfrm TEST NOT PERFORMED 05/19/18 00:46 Lorazepam Confirm TEST NOT PERFORMED 05/19/18 00:46 Oxazepam Confirmation TEST NOT PERFORMED 05/19/18 00:46 Cocaine & Metabolite negative 05/19/18 00:46 Cocaine Confirmation TEST NOT PERFORMED 05/19/18 00:46 Cocaethylene Confirm TEST NOT PERFORMED 05/19/18 00:46 Urine Cocaine Negative 300 (Negative) 05/18/18 09:45 Urine Cocaine Confirm (()) 05/18/18 09:45 Benzoylecgonine Confrm TEST NOT PERFORMED 05/19/18 00:46 Ecgonine Methyl Malia TEST NOT PERFORMED 05/19/18 00:46 Marijuana negative 05/19/18 00:46 THC Confirmation TEST NOT PERFORMED 05/19/18 00:46 Carboxy THC Confirm TEST NOT PERFORMED 05/19/18 00:46 U Marijuana (THC) Screen Negative 50 (Negative) 05/18/18 09:45 Drugs of Abuse Note See note 05/18/18 09:45 Drugs of Abuse Comment See note 05/19/18 00:46 - Hospital Course Hospital Course: Pt seen and examined at bedside, is stable for discharge Discharge Exam - Head Exam Head Exam: NORMAL INSPECTION Discharge Plan - Follow Up Plan Condition: STABLE Disposition: [facility] Instructions: How to Care for Your PEG Tube Additional Instructions: DIANA TRIPLETT, thank you for letting us take care of you today. Your provider was Navin Fan DO and you were treated for G TUBE MALFUNCTION. The emergency medical care you received today was directed at your acute symptoms. If you were prescribed any medication, please fill it and take as directed. It may take several days for your symptoms to resolve. Return to the Emergency Department if your symptoms worsen, do not improve, or if you have any other problems. Please contact your doctor or call one of the physicians/clinics you have been referred to that are listed on the Patient Visit Information form that is included in your discharge packet. Bring any paperwork you were given at discharge with you along with any medications you are taking to your follow up visit. Our treatment cannot replace ongoing medical care by a primary care provider outside of the emergency department. Thank you for allowing the [facility] team to be part of your care today. The feeding tube has been flushed and confirmed with radiological studies. Please contact Dr. Rose if you have any concerns. Referrals: Arash Rose MD [Staff Provider] -
[2018-06-16] MEDS ORDERED: Magnesium Sulfate 1 gm/100 mL D5W IVPB ONE (20:13)
== END 2018-05-30 10:10 | DRG 870 ==
LOC: C.ER 13:34 → C.9E 16:20 → C.6T 18:10 → C.9I 20:46
PROVIDERS: ADMIT Internal Medicine; ATTEND Internal Medicine
PROC: 5A1955Z Respiratory Ventilation, Greater than 96 Consecutive Hours (ICD-10-PCS; principal; 2018-05-18)
PROC: 5A12012 Performance of Cardiac Output, Single, Manual (ICD-10-PCS; 2018-05-18)
PROC: 3E0G76Z Introduction of Nutritional Substance into Upper GI, Via Natural or Artificial Opening (ICD-10-PCS; 2018-05-18)
PROC: 3E1G78Z Irrigation of Upper GI using Irrigating Substance, Via Natural or Artificial Opening (ICD-10-PCS; 2018-05-18)
DX: A41.9 Sepsis, unspecified organism (principal); K94.23 Gastrostomy malfunction; I46.9 Cardiac arrest, cause unspecified; J96.20 Acute and chronic respiratory failure, unspecified whether with hypoxia or hypercapnia; B37.49 Other urogenital candidiasis; G93.49 Other encephalopathy; T17.990A Other foreign object in respiratory tract, part unspecified in causing asphyxiation, initial encounter; E87.0 Hyperosmolality and hypernatremia; L97.329 Non-pressure chronic ulcer of left ankle with unspecified severity; I67.4 Hypertensive encephalopathy; J98.11 Atelectasis; J90 Pleural effusion, not elsewhere classified; B95.62 Methicillin resistant Staphylococcus aureus infection as the cause of diseases classified elsewhere; E11.22 Type 2 diabetes mellitus with diabetic chronic kidney disease; E11.51 Type 2 diabetes mellitus with diabetic peripheral angiopathy without gangrene; E11.622 Type 2 diabetes mellitus with other skin ulcer; E11.65 Type 2 diabetes mellitus with hyperglycemia; D64.9 Anemia, unspecified; E86.0 Dehydration; I12.9 Hypertensive chronic kidney disease with stage 1 through stage 4 chronic kidney disease, or unspecified chronic kidney disease; E11.621 Type 2 diabetes mellitus with foot ulcer; L97.529 Non-pressure chronic ulcer of other part of left foot with unspecified severity; E11.649 Type 2 diabetes mellitus with hypoglycemia without coma; E87.8 Other disorders of electrolyte and fluid balance, not elsewhere classified; E78.00 Pure hypercholesterolemia, unspecified; I69.398 Other sequelae of cerebral infarction; I69.328 Other speech and language deficits following cerebral infarction; L89.621 Pressure ulcer of left heel, stage 1; L03.031 Cellulitis of right toe; N18.9 Chronic kidney disease, unspecified; I25.10 Atherosclerotic heart disease of native coronary artery without angina pectoris; J44.9 Chronic obstructive pulmonary disease, unspecified; G40.909 Epilepsy, unspecified, not intractable, without status epilepticus; N40.0 Benign prostatic hyperplasia without lower urinary tract symptoms; Z93.0 Tracheostomy status; Z79.4 Long term (current) use of insulin; Z95.1 Presence of aortocoronary bypass graft